=== PATIENT | female | born 1960 | race Caucasian/White ===

== ENCOUNTER 2016-03-23 06:40 | Day surgery (SDC) | payer MEDICAID ==
--- NOTE | 2016-03-09 07:25 | HISTORY AND PHYSICAL ---
DICTATING PHYSICIAN: Dr. Lion DATE OF ADMISSION: 03/23/2015 Outpatient surgery for left de Quervain's release. HISTORY: The patient is a 55-year-old, [id number] female with complaints of radial sided left wrist pain. She reports this radiates into her thumb. She denies snuff box pain. She reports this has been progressive in nature. Due to functional impairment, the patient has elected to proceed with surgical intervention. REVIEW OF SYSTEMS: No chest pain, no shortness of breath. No dysuria. PAST MEDICAL HISTORY: 1. COPD. 2. Coronary artery disease. 3. Diabetes type 2. 4. Hypertension. 5. Rheumatoid arthritis. PAST SURGICAL HISTORY: 1. Cardiac catheterization. 2. Cholecystectomy. 3. Hysterectomy. 4. Tonsillectomy. SOCIAL HISTORY; The patient denies alcohol, current every day smoker. FAMILY HISTORY: Significant for heart disease, diabetes, hyperlipidemia and asthma PRIMARY CARE PROVIDER: Carrol Turpin MEDICATIONS: 1. Mucinex. 2. Ventolin. 3. Nasonex. 4. Cetirizine. 5. Aleve. 6. Citalopram. 7. Fish oil. 8. Albuterol. 9. Symbicort. 10. Aspirin. 11. Metoprolol. 12. Protonix. 13. Nystatin. 14. Methotrexate. 15. Lisinopril. 16. Metformin. 17. Baclofen. 18. Fenofibrate. 19. Victoza. 20. Folic acid. 21. Lyrica. 22. Hydrocodone. ALLERGIES: 1. SULFA. 2. SINGULAIR. Radiographs reveal healed old scaphoid waist fracture; otherwise no abnormalities. PHYSICAL EXAMINATION: The patient is well-developed, well-nourished, in no acute distress. HEENT: Normocephalic, atraumatic. Pupils are equal, round, and reactive to light. Oropharynx is clear. NECK: Supple. No lymphadenopathy. LUNGS: Clear to auscultation bilaterally. HEART: Regular rate and rhythm. ABDOMEN: Soft, nontender, nondistended. EXTREMITY EXAM: The left wrist demonstrates tenderness over first dorsal compartment. There is no edema noted. She has a markedly positive Atif maneuver. She has pain with resisted, thumb extension and abduction. She has negative thumb grind test. She has negative Tinel's at the carpal tunnel. IMPRESSION: De Quervain's tenosynovitis. PLAN: Left de Quervain's release. The risks, benefits, options, ramifications and recovery have been discussed in length with the patient. She understands and wishes to proceed. Job ID: [id number] Dictated Date: 03/03/2016 10:23:00 Section Chief Date: 03/03/2016 13:33:32/mickey
--- NOTE | 2016-03-16 08:07 | HISTORY AND PHYSICAL ---
This will be for outpatient surgery. The patient is a 55 year-old bxqvz-[id number] female with complaints of radial sided left wrist pain. She reports this radiates into her thumb. She denies snuff box pain. She reports this has been progressive in nature. Due to functional impairment, the patient has elected to proceed with surgical intervention. REVIEW OF SYSTEMS: No chest pain, no shortness of breath. No dysuria. PAST MEDICAL HISTORY: 1. COPD. 2. Coronary artery disease. 3. Diabetes type 2. 4. Hypertension. 5. Rheumatoid arthritis. PAST SURGICAL HISTORY: 1. Cardiac catheterization. 2. Cholecystectomy. 3. Hysterectomy. 4. Tonsillectomy. SOCIAL HISTORY: The patient denies alcohol use. She is a current every day smoker. FAMILY HISTORY: Significant for heart disease, diabetes, hyperlipidemia and asthma. MEDICATIONS: 1. Mucinex 2. Ventolin 3. Nasonex 4. Cetirizine 5. Aleve 6. citalopram 7. fish oil 8. Albuterol 9. Symbicort 10. aspirin 11. metoprolol 12. Protonix 13. nystatin 14. methotrexate 15. lisinopril 16. metformin 17. baclofen 18. fenofibrate 19. Victoza 20. folic acid 21. Lyrica 22. Hydrocodone ALLERGIES: 1. Sulfa 2. Singulair PHYSICAL EXAMINATION: The patient is well-developed, well-nourished, in no acute distress. HEENT: Normocephalic, atraumatic. Pupils are equal, round, and active to light. Oropharynx is clear. NECK: Supple. No lymphadenopathy. LUNGS: Clear to auscultation bilaterally. HEART: Regular rate and rhythm. ABDOMEN: Soft, nontender, nondistended. EXTREMITIES: The left wrist demonstrates tenderness over her first dorsal compartment. She has a markedly positive Atif maneuver. She has pain with resisted thumb extension as well as abduction. IMPRESSION: Left wrist de Quervain's. PLAN: Left wrist de Quervain's release. The risks, benefits, options, ramifications and recovery have been discussed at length with the patient. She understands and wishes to proceed. Job ID: [id number] Dictated Date: 03/15/2016 16:50:18 Senior Lead Project Manager Date: 03/16/2016 07:59:47/tbk
[~2016-03-23] VITALS: Ht 167.6 cm; Wt 87.1 kg
[~2016-03-23 06:40] MED LIST: ALB0.5V IH; ASP81TEC PO; ASPI-999 PO; BACL10TA PO; BUDE10.2 IH; CETI10TA17 PO; CITA40TA11 PO; FENO54TA PO; FISH1CAP15 PO; FLUO20CA42 PO; FOLI1TAB24 PO; GABA-488 PO; GBPN300C PO; GUAI600T43 PO; HYDR-3812 PO; HYDR200T PO; INSU100I10 SC; INSU100I14 SC; INSU100V6 SC; LIRA0.6P3 SQ; LISI20TA PO; METF-380 PO; METF1000 PO; METH2.5T PO; METO-333 PO; METO50TA7 PO; MMT17NA NS; NAPR220T66 PO; NITR0.4T39 SL; OMEP10CA4 PO; PANT20TA2 PO; PRAS10TA6 PO; PRAV40TA2 PO; PREG75CA PO; RANI-10 PO; ROSU5TAB PO; RT-ALBUINH IH; TRIA1TAB5 PO
--- OUTSIDE RECORDS SUMMARY | 2016-03-23 06:47 | XMS REPORT | Continuity of Care Document ---
Author Author [facility] Organization [facility] Address Unknown Phone Unavailable Care Team Providers Care Shoder Filler Name Role Phone No Pcp, Na PCP Unavailable Source Comments Some departments are not documenting in the electronic medical record. 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 Most Recent Encounters Date Type Specialty Providers Description 12/23/2015 Office Visit Orthopedic Surgery Arlet Arellano MD Arthropathy of left wrist (Primary Dx) 12/23/2015 Hospital Radiology Arlet Arellano MD Encounter Social History Tobacco Use Types Packs/Day Years Used Date Current Every Day Smoker Smokeless Tobacco: Never Used Alcohol Use Drinks/Week oz/Week Comments No Last Filed Vital Signs Vital Sign Reading Time Taken Blood Pressure 115/72 12/23/2015 11:22 AM CDT Pulse 81 12/23/2015 11:22 AM CDT Temperature - - Respiratory Rate - - Height 1.676 m (5' 6") 12/23/2015 11:22 AM CDT Weight 84.823 kg (187 lb) 12/23/2015 11:22 AM CDT Body Mass Index 30.2 12/23/2015 11:22 AM CDT Oxygen Saturation - - Plan of Care Health Maintenance Due Date Last Done Comments Hepatitis C Screening 1961 Physical (Comprehensive) 1968 Exam Pertussis Vaccine 1972 Tetanus Vaccine 1978 Cervical Cancer Screening 1982 Breast Cancer Screening 2001 Colorectal Cancer 2011 Screening Influenza Vaccine 11/19/2015 Results from Last 3 Months WRIST COMP MIN 3 VIEWS LEFT (12/23/2015 11:42 AM) Impressions Impression: No evidence of an acute osseous abnormality. If patient's symptoms persist MR imaging may be useful for further evaluation. Finalized by Humble Siddiqui M.D. on 12/23/2015 12:44 PM. Dictated by Humble Siddiqui M.D. on 12/23/2015 12:39 PM. Narrative Left wrist Clinic data: Left wrist pain Four projections were acquired. No prior studies are available for comparison. A fracture is not identified. Mild degenerative changes are present involving the first CMC joint. No abnormal soft tissue calcifications are noted. Bony alignment appears unremarkable. Procedure Note Interface, Radiant Results - Wed Dec 23, 2015 12:47 PM CDT Left wrist Clinic data: Left wrist pain Four projections were acquired. No prior studies are available for comparison. A fracture is not identified. Mild degenerative changes are present involving the first CMC joint. No abnormal soft tissue calcifications are noted. Bony alignment appears unremarkable. IMPRESSION Impression: No evidence of an acute osseous abnormality. If patient's symptoms persist MR imaging may be useful for further evaluation. Finalized by Humble Siddiqui M.D. on 12/23/2015 12:44 PM. Dictated by Humble Siddiqui M.D. on 12/23/2015 12:39 PM.
--- OUTSIDE RECORDS SUMMARY | 2016-03-23 06:48 | XMS REPORT | Continuity of Care Document ---
Author Author [facility] Organization [facility] Address Unknown Phone Unavailable Care Team Providers Care Air Bag Buffer Name Role Phone No Pcp, Na PCP Unavailable Source Comments Some departments are not documenting in the electronic medical record. If you do not see the information that you expected, contact Release of Information in the Health Information Management department at [phone] for further assistance in locating additional records.[facility] Active Allergies and Adverse Reactions Allergen Noted [...]
[2016-03-23] MEDS ORDERED: ceFAZolin 1,000 MG (ANCEF) VIAL ONE (06:54)
[2016-03-23] MEDS ORDERED: NORMAL SALINE (BAXTER MINI) 50 ML IV ONE (06:55)
[2016-03-23] MEDS ORDERED: ceFAZolin 1 GM/NS 50 ML IVPB IV ONE ×2 (07:15)
[2016-03-23] MEDS ORDERED: LIDOCAINE 1% INJ 20 ML (XYLOCAINE) VIAL ONE (07:17)
[2016-03-23] MEDS ORDERED: BUPIVACAINE 0.5% 30 ML (SENSORCAINE) VIAL ONE (07:17)
--- NOTE | 2016-03-23 07:31 | Progress Note-Pre Operative ---
Pre-Operative Progress Note H&P Reviewed The H&P was reviewed, patient examined and no changes noted. Date H&P Reviewed: Mar 23, 2016 Time H&P Reviewed: 07:30 Pre-Operative Diagnosis: left DeQuervain's tenosynovitis CARLOS HORTON MD Mar 23, 2016 07:31
--- NOTE | 2016-03-23 07:32 | Progress Note-Post Operative ---
Post-Operative Progess Note Bi Application Developer Gurdeep Mcgrath Pre-Operative Diagnosis left DeQuervain's tenosynovitis Post-Operative Diagnosis left DeQuervain's tenosynovitis Post-Op Procedure Note Date of Procedure: Mar 23, 2016 Name of Procedure: left DeQuervain's (first dorsal compartment) release Anesthesia Type GETA Estimated blood loss (mL): minimal Packing: none Specimen(s) collected none CARLOS HORTON MD Mar 23, 2016 07:32
[2016-03-23] MEDS ORDERED: LIDOCAINE PF 2% 10 ML (XYLOCAINE) AMP ONE (07:52)
[2016-03-23] MEDS ORDERED: MIDAZOLAM 2 MG/2 ML (VERSED) VIAL ONE (07:52)
[2016-03-23] MEDS ORDERED: proPOfol 200 MG/20 ML (DIPRIVAN) VIAL IV ONE (07:52)
[2016-03-23] MEDS ORDERED: LACTATED RINGERS 1,000 ML IV ONE (07:52)
[2016-03-23] MEDS ORDERED: fentaNYL INJECTION 100 MCG/2 ML AMP ONE (07:52)
[2016-03-23 08:04] VITALS: BP 129/71
[2016-03-23] MEDS ORDERED: HYDROcodone/APAP 7.5 MG/325 MG (LORTAB, LORCET PLUS) TABLET PO PRN (09:00)
[2016-03-23] MEDS ORDERED: SEVOFLURANE (ULTANE) 15 ML INHAL SOLN ONE (09:04)
[2016-03-23] MEDS ORDERED: ONDANSETRON 4 MG/2 ML (SDV) Z0FRAN ONE (09:10)
[2016-03-23] MEDS ORDERED: LIDOCAINE 1% INJ 20 ML (XYLOCAINE) VIAL INJ ONE ×2 (09:22→09:25)
[2016-03-23] MEDS ORDERED: BUPIVACAINE 0.5% 30 ML (SENSORCAINE) VIAL INJ ONE ×2 (09:22→09:25)
[2016-03-23] MEDS ORDERED: ONDANSETRON 4 MG/2 ML (SDV) Z0FRAN IVP PRN (09:45)
[2016-03-23] MEDS ORDERED: morphine INJ 10 MG/ML 1ML (SYR OR VIAL) IVP PRN (09:45)
[2016-03-23] MEDS ORDERED: morphine INJ 10 MG/ML 1ML (SYR OR VIAL) ONE (09:51)
[2016-03-23 10:30] VITALS: BP 107/66
[2016-03-23 11:00] VITALS: BP 118/69
[2016-03-23] MEDS ORDERED: HYDR-3816 PO (11:29)
[2016-03-23 11:30] VITALS: BP 96/61
--- NOTE | 2016-03-23 13:30 | OPERATIVE REPORT ---
PROCEDURE PHYSICIAN: CARLOS HORTON DATE OF PROCEDURE: 03/23/2016 POSTOPERATIVE DIAGNOSIS: Left de Quervain's tenosynovitis. POSTOPERATIVE DIAGNOSIS: Left de Quervain's tenosynovitis. PROCEDURE: Left de Quervain's (1st dorsal compartment) release. SURGEON: Amisha FIRST AID INSTRUCTOR: Gurdeep Mcgrath ANESTHESIA: General endotracheal by Betty Blackburn CRNA. TOURNIQUET TIME: 5 minutes at 250 mmHg. ESTIMATED BLOOD LOSS: Minimal. DRAINS: None. COMPLICATIONS: None. POSTOPERATIVE PLAN: Progressive activities as symptoms allow. The patient was transported to the recovery room, awake, in stable condition. STATEMENT OF MEDICAL NECESSITY: The patient is a 55-year-old female with complaints of left radial sided wrist pain. She had tenderness over her first dorsal compartment and pain with Atif maneuver and with resisted thumb extension. She has undergone treatment with injections, as well as splinting without relief. Due to functional impairment, the patient elected to proceed with surgical intervention. PROCEDURE: After risks and benefits of procedure were discussed and questions were answered an informed consent was signed and placed on the chart. The operative site was confirmed in the preoperative holding and initialed by the surgeon. The patient was then transported to the operating room where after adequate levels of general endotracheal anesthetic were obtained, the left upper extremity was prepped and draped in the usual sterile fashion. With the arm elevated, the tourniquet was inflated to 250 mmHg. An oblique incision was made one fingerbreadth proximal to the radial styloid. The underlying soft tissues were bluntly dissected. The superficial branch of the radial nerve was identified and carefully protected throughout the procedure. The first dorsal compartment was then incised longitudinally and fully released. There was an aberrant tendon noted which was fully released as well. The tourniquet was deflated for total tourniquet time of 5 minutes. Pressure was used for hemostasis. The wound was copiously irrigated and then reapproximated using 4-0 nylon in a simple interrupted fashion. The area was then infiltrated with plain Marcaine. A soft dressing was applied and the patient was transported to the recovery room, awake, in stable condition. Job ID: [id number] Dictated Date: 03/23/2016 09:25:29 Psychologist Chief Date: 03/23/2016 13:21:29 / mickey
[2016-03-23] MEDS ORDERED: LACTATED RINGERS 1,000 ML IV PRN (14:43)
== END 2016-03-23 12:05 | disposition home or self-care (01) ==
LOC: SDC 06:40
PROVIDERS: ATTEND Orthopaedic Surgery
DX: M65.4 Radial styloid tenosynovitis [de Quervain] (principal); J44.9 Chronic obstructive pulmonary disease, unspecified; I25.10 Atherosclerotic heart disease of native coronary artery without angina pectoris; E11.9 Type 2 diabetes mellitus without complications; I10 Essential (primary) hypertension; M06.9 Rheumatoid arthritis, unspecified; F17.210 Nicotine dependence, cigarettes, uncomplicated
CPT/HCPCS: 82962

== ENCOUNTER → 2016-05-06 | Outpatient (CLI) | payer MEDICAID ==
[~2016-05-06] MED LIST changes: +CHOL200025 PO; +GEMF600T3 PO; +HYDR-3816 PO
--- OUTSIDE RECORDS SUMMARY | 2016-05-06 09:46 | XMS REPORT | Continuity of Care Document ---
Author Author [facility] Organization [facility] Address Unknown Phone Unavailable Care Team Providers Care Steam Shovel Oiler Name Role Phone No Pcp, Na PCP Unavailable Source Comments Some departments are not documenting in the electronic medical record. 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
--- NOTE | 2016-05-09 10:44 | ECHOCARDIOGRAPHY REPORT ---
PROCEDURE PHYSICIAN: ARVIND CASTELLANOS DATE OF PROCEDURE: 05/06/2016 TWO DIMENSIONAL ECHOCARDIOGRAM REPORT PRIMARY PHYSICIAN: OTHER PHYSICIAN: REFERRING PHYSICIAN: [facility], Dr. Matt Hanson ORDERING PHYSICIAN: INDICATION FOR THE PROCEDURE: MEASUREMENTS DERIVED VALUES LV DIAMETER (LAX) NORMALS NORMALS Diastolic 4.3 (3.6-5.2) Eject. Fract. 60% (60%+/-6%) Systolic (2.3-3.9) Diastolic Vol. % Shortening (0.22-0.42) Systolic Vol. Aortic Root IVS THICKNESS Diastolic 1 (0.6-1.1) LVPW THICKNESS Diastolic 1 (0.6-1.1) LA DIAMETER Systolic 3 (2.1-3.7) FINDINGS: 1. Technical quality is good. 2. The left ventricle is normal in size with normal contractility. Systolic function is normal. Estimated ejection fraction 60%. 3. The left atrium is normal in size. Improvement compared to the study of 2014. No clot or thrombus were seen within the left atrium. 4. The right atrium and right ventricle are normal in size. No clot or thrombus were seen within the right side. 5. Mitral valve is normal in morphology with mild mitral regurgitation noted by color Doppler flow. No mitral valve prolapse. No mitral valve stenosis. 6. Aortic valve is trileaflet with normal opening and closing pattern. No significant aortic stenosis or regurgitation was seen. 7. Tricuspid valve is normal in morphology with mild tricuspid regurgitation noted by color Doppler flow. Doppler across tricuspid valve estimated pulmonary artery pressure of 6 plus right atrial pressure. 8. Pulmonic valve is functioning normally. 9. No pericardial effusion. IN CONCLUSION: 1. Normal left ventricular size and systolic function. Mild hypertrophy noted at the base of the septum. Estimated ejection fraction 60%. 2. Mild mitral regurgitation. Mild tricuspid regurgitation. 3. Estimated pulmonary artery pressure of 10 to 15 mmHg. Job ID: [id number] Dictated Date: 05/09/2016 07:57:03 Risk Control Field Representative Date: 05/09/2016 10:39:55 / tboneil
== END ==
LOC: CARD 09:42
PROVIDERS: ATTEND Physician Assistant
DX: I25.10 Atherosclerotic heart disease of native coronary artery without angina pectoris (principal); I65.23 Occlusion and stenosis of bilateral carotid arteries; I10 Essential (primary) hypertension; E78.2 Mixed hyperlipidemia
CPT/HCPCS: 93306

== ENCOUNTER → 2016-05-09 | Outpatient (CLI) | payer MEDICAID ==
[~2016-05-09] MED LIST changes: +CATHETER FLUSH 10 ML SYR IV PRN; +REGADENOSON 0.4 MG/5 ML SYR (LEXISCAN) IV ONE
--- OUTSIDE RECORDS SUMMARY | 2016-05-09 07:47 | XMS REPORT | Continuity of Care Document ---
Author Author [facility] Organization [facility] Address Unknown Phone Unavailable Care Team Providers Care Automobile Damage Field Appraiser Name Role Phone No Pcp, Na PCP Unavailable Source Comments Some departments are not documenting in the electronic medical record. If you do not see the information that you expected, contact Release of Information in the Health Information Management department at [phone] for further assistance in locating additional records.[facility] Active Allergies and Adverse Reactions Allergen [...]
[2016-05-09 09:06] VITALS: BP 98/50
--- NOTE | 2016-05-09 12:22 | STRESS TEST ---
PROCEDURE PHYSICIAN: ARVIND CASTELLANOS DATE OF PROCEDURE: 05/09/2016 LEXISCAN MYOVIEW STRESS TEST REPORT: REFERRING PHYSICIAN: Dr. Hanson INDICATION: Coronary artery disease. BASELINE HEART RATE: 71 BASELINE BLOOD PRESSURE: 98/50 BASELINE EKG: Sinus rhythm with no ischemic changes. IN SUMMARY: The patient was injected with 10.62 mCi of technetium 99 Myoview and the resting images were obtained. Then the patient received 0.4 mg of Lexiscan followed by 32.3 mCi of technetium 99 Myoview. Throughout the test, there were no EKG changes. The resting and stress images were reviewed and compared in the short axis, horizontal long axis, and vertical long axis views. Review of the images showed breast attenuation with no significant ischemia or infarction on SPECT images. SSS is 0. TID value 0.96. On the gated images, the left ventricle appeared to be normal size with normal contractility. Calculated ejection fraction 61%. IN CONCLUSION: 1. The patient tolerated Lexiscan well. 2. Breast attenuation with typical female pattern. No significant ischemia or infarction on SPECT images. 3. Normal left ventricular size with normal contractility. Calculated ejection fraction 61%. Job ID: [id number] Dictated Date: 05/09/2016 11:58:43 Site Head Date: 05/09/2016 12:20:47 / marie
== END ==
LOC: CARD 07:43
PROVIDERS: ATTEND Physician Assistant
DX: I25.10 Atherosclerotic heart disease of native coronary artery without angina pectoris (principal); I65.23 Occlusion and stenosis of bilateral carotid arteries; I10 Essential (primary) hypertension; E78.2 Mixed hyperlipidemia
CPT/HCPCS: 78452; 93017

== ENCOUNTER 2016-05-19 11:40 | Outpatient (CLI) | payer MEDICAID ==
[~2016-05-19] VITALS: Ht 167.6 cm; Wt 88.0 kg
[~2016-05-19 11:40] MED LIST changes: -CATHETER FLUSH 10 ML SYR IV PRN; -CHOL200025 PO; -GEMF600T3 PO; -REGADENOSON 0.4 MG/5 ML SYR (LEXISCAN) IV ONE
--- OUTSIDE RECORDS SUMMARY | 2016-05-19 11:44 | XMS REPORT | Continuity of Care Document ---
Author Author [facility] Organization [facility] Address Unknown Phone Unavailable Care Team Providers Care Information Systems Planner Name Role Phone No Pcp, Na PCP Unavailable Source Comments Some departments are not documenting in the electronic medical record. If you do not see the information that you expected, contact Release of Information in the Health Information Management department at [phone] for further assistance in locating additional records.[facility] Active Allergies and Adverse Reactions [...]
[2016-05-19 11:48] VITALS: BP 114/66
[2016-05-19] MEDS ORDERED: GEMF600T3 PO (11:55)
[2016-05-19] MEDS ORDERED: HYDR-3816 PO (11:55)
[2016-05-19] MEDS ORDERED: CHOL200025 PO (11:55)
== END 2016-05-19 12:02 | disposition home or self-care (01) ==
LOC: PREOP 11:40
PROVIDERS: ATTEND Orthopaedic Surgery
DX: Z01.818 Encounter for other preprocedural examination (principal); Z11.2 Encounter for screening for other bacterial diseases; M23.8X2 Other internal derangements of left knee
CPT/HCPCS: 87081

== ENCOUNTER 2016-05-25 08:12 | Day surgery (SDC) | payer MEDICAID ==
--- NOTE | 2016-05-23 07:50 | HISTORY AND PHYSICAL ---
DICTATING PHYSICIAN: Dr. Lion DATE OF ADMISSION: 05/25/2016 Outpatient surgery for left knee arthroscopy. HISTORY: The patient is a 56-year-old female with progressively worsening left knee pain. She reports pain in the posterior aspect of her knee. She underwent an MRI which revealed posterior horn of medial and lateral meniscal tear. She underwent injections without relief. She reports activity limitations because of the knee and because of this, the patient has elected to proceed with surgical intervention. REVIEW OF SYSTEMS: No chest pain, no shortness of breath. No dysuria. PAST MEDICAL HISTORY: 1. COPD. 2. Coronary artery disease. 3. Diabetes mellitus. 4. Hypertension. 5. Rheumatoid arthritis. PAST SURGICAL HISTORY: 1. Cardiac catheterization. 2. Cholecystectomy. 3. Hysterectomy. 4. Tonsillectomy. FAMILY HISTORY: Significant for heart disease, diabetes and asthma. PRIMARY CARE PROVIDER: Carrol Turpin at [facility]. MEDICATIONS: 1. Mucinex. 2. Ventolin. 3. Nasonex. 4. Cetirizine 5. Aleve. 6. Citalopram. 7. Fish oil. 8. Albuterol. 9. Symbicort. 10. Aspirin. 11. Metoprolol. 12. Protonix. 13. Nystatin. 14. Methotrexate. 15. Lisinopril. 16. Metformin. 17. Baclofen. 18. Fenofibrate. 19. Victoza. 20. Folic acid. 21. Lyrica. 22. Hydrocodone. ALLERGIES: 1. SULFA. 2. SINGULAIR. SOCIAL HISTORY: The patient smokes every day. She denies alcohol use. Radiographs reveal mild medial joint space narrowing. PHYSICAL EXAMINATION: The patient's well-developed, well-nourished, in no acute distress. HEENT: Normocephalic, atraumatic. Pupils are equal, round, and reactive to light, oropharynx is clear. NECK: Supple with no lymphadenopathy. LUNGS: Clear to auscultation bilaterally. HEART: Regular rate and rhythm. ABDOMEN: Soft, nontender, nondistended. EXTREMITY EXAM: The left knee demonstrates tenderness on her posterior joint line medially and laterally. She has pain posteriorly with hyperflexion and with Mckenna's. She is ligamentously stable in all planes. No skin lesions are noted. A slight effusion is noted. Range of motion 0/0/140. The patient ambulates with an antalgic gait. IMPRESSION: Left knee medial and lateral meniscal tears. PLAN: Left knee arthroscopy with partial meniscectomies. The risks, benefits, options, ramifications and recovery have been discussed at length with the patient. She understands and wishes to proceed. Job ID: [id number] Dictated Date: 05/17/2016 09:56:00 Gas Utility Worker Date: 05/17/2016 10:59:20/mickey
[~2016-05-25] VITALS: Ht 167.6 cm; Wt 88.0 kg
[~2016-05-25 08:12] MED LIST changes: +CHOL200025 PO; +GEMF600T3 PO
--- OUTSIDE RECORDS SUMMARY | 2016-05-25 08:26 | XMS REPORT | Continuity of Care Document ---
Author Author [facility] Organization [facility] Address Unknown Phone Unavailable Care Team Providers Care Senior Clinician Name Role Phone No Pcp, Na PCP Unavailable Source Comments Some departments are not documenting in the electronic medical record. If you do not see the information that you expected, contact Release of Information in the Health Information Management department at [phone] for further assistance in locating additional records.[facility] Active Allergies and Adverse Reactions Allergen [...]
--- OUTSIDE RECORDS SUMMARY | 2016-05-25 08:26 | XMS REPORT | Continuity of Care Document ---
Author Author [facility] Organization [facility] Address Unknown Phone Unavailable Care Team Providers Care Stone Chimney Mason Name Role Phone No Pcp, Na PCP Unavailable Source Comments Some departments are not documenting in the electronic medical record. If you do not see the information that you expected, contact Release of Information in the Health Information Management department at [phone] for further assistance in locating additional records.[facility] Active Allergies and Adverse Reactions Allergen [...]
[2016-05-25] MEDS ORDERED: ceFAZolin 1,000 MG (ANCEF) VIAL ONE (08:38)
[2016-05-25] MEDS ORDERED: NS (IVPB) 50 ML ONE (08:39)
[2016-05-25 08:56] VITALS: BP 106/74
[2016-05-25] MEDS ORDERED: ceFAZolin 1 GM/NS 50 ML IVPB IV ONE ×2 (09:00)
--- NOTE | 2016-05-25 09:07 | Progress Note-Pre Operative ---
Pre-Operative Progress Note H&P Reviewed The H&P was reviewed, patient examined and no changes noted. 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
--- NOTE | 2016-05-25 09:09 | Progress Note-Post Operative ---
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
[2016-05-25] MEDS: LACTATED RINGERS 1,000 ML IV PRN ×2 (09:28→11:00)
[2016-05-25] MEDS ORDERED: MIDAZOLAM 2 MG/2 ML (VERSED) VIAL ONE (09:30)
[2016-05-25] MEDS ORDERED: LIDOCAINE PF 2% 10 ML (XYLOCAINE) AMP ONE (09:30)
[2016-05-25] MEDS ORDERED: fentaNYL INJECTION 100 MCG/2 ML AMP ONE (09:30)
[2016-05-25] MEDS ORDERED: HYDROcodone/APAP 7.5 MG/325 MG (LORTAB, LORCET PLUS) TABLET PO PRN (09:30)
[2016-05-25] MEDS ORDERED: ONDANSETRON 4 MG/2 ML (SDV) Z0FRAN ONE (09:30)
[2016-05-25] MEDS ORDERED: proPOfol 200 MG/20 ML (DIPRIVAN) VIAL IV ONE (09:30)
[2016-05-25] MEDS ORDERED: FAMOTIDINE 20MG/2ML IV (PEPCID) IV ONE (09:30)
[2016-05-25] MEDS ORDERED: morphine PF (DURAMORPH) 10 MG/10 ML AMP ONE (09:40)
[2016-05-25] MEDS ORDERED: BUPIVACAINE 0.25% 30 ML (SENSORCAINE) VIAL ONE (09:40)
[2016-05-25] MEDS ORDERED: SEVOFLURANE (ULTANE) 15 ML INHAL SOLN ONE (11:08)
[2016-05-25] MEDS ORDERED: LACTATED RINGERS 1,000 ML IV ONE (11:08)
[2016-05-25] MEDS ORDERED: ONDANSETRON 4 MG/2 ML (SDV) Z0FRAN IV PRN (11:15)
[2016-05-25] MEDS: morphine INJ 10 MG/ML 1ML (SYR OR VIAL) IV PRN ×2 (11:42→11:52)
[2016-05-25 12:10] VITALS: BP 106/61
[2016-05-25] MEDS ORDERED: HYDR-3816 PO (12:28)
[2016-05-25 12:40] VITALS: BP 106/61
[2016-05-25 13:10] VITALS: BP 106/61
[2016-05-25 13:55] VITALS: BP 106/61
--- NOTE | 2016-05-25 13:57 | Physical Therapy Ortho Eval ---
PT Orthopedic Evaluation Type of Surgery Knee Scope left side Prior Level of Function Current Living Status: Alone Locomotion (Upon Admit): Straight Cane Subjective Subjective Patient in bed pre tx, agrees to PT. Vasiliy wrap in left knee, states pain is 2/ 10. Entry Into Home: Level Entry Objective Objective left knee flexion 60 degrees, extension +5 degrees Motor Control Motor Control: Motor Control WNL Strength NT due to recent surgery Transfer Transfers (B, C, W/C) (FIM): 4 (CGA) Gait Gait Assistive Device: FWW Patient ambulated 50' with a rolling walker with CGA. She also went up and down 1 step using a rolling walker with CGA. Patient does not own a rolling walker but says she can borrow one from a friend easily. Weight Bearing Restriction: Weight Bearing/Tolerated Location Restriction: L LE Gait (FIM): 2 Treatment Rendered Treatment: Therapeutic Exercises, Gait Train, Step Train Exercise Instruction: Quad Sets, Heel Slides, Ankle Pumps Assessment/Goals Goal Time Frame: 1 Visit Plan Treatment Plan: Discharge PT/Family Agrees to Plan: Yes Time Time In: 1330 Time Out: 1345 Total Billed Treatment Time: 15 Billed Treatment Time 1 visit EVL 15 min Yes PT/OT Therapy GCodes Therapy Functional Limitation: Physical Therapy Test(s)/Tool used to determine: Level of Assistance Scale Functional Limitation-Current Charge Code: MOBCUR Modifier: CI Functional Limitation-Goal Charge Code: MOBGOAL Modifier: CI Functional Limitation-D/C Charge Codes: MOBDC Modifier: CI KIERA ARANA PT May 25, 2016 13:57
--- NOTE | 2016-05-26 11:39 | OPERATIVE REPORT ---
PROCEDURE PHYSICIAN: CARLOS HORTON DATE OF PROCEDURE: 05/25/2016 PREOPERATIVE DIAGNOSIS: 1. Left knee medial meniscal tear. 2. Left knee lateral meniscal tear. 3. Left knee chondromalacia of the patella. POSTOPERATIVE DIAGNOSES: 1. Left knee medial meniscal tear. 2. Left knee chondromalacia of the patella. 3. Left knee chondromalacia of the medial femoral condyle. 4. Left knee chondromalacia of the lateral tibial plateau. PROCEDURE: 1. Left knee arthroscopic partial medial meniscectomy. 2. Left knee arthroscopic chondroplasty of the patella. 3. Left knee arthroscopic chondroplasty of the medial femoral condyle. 4. Left knee arthroscopic chondroplasty of the lateral tibial plateau. SURGEON: Amisha BAR WAITER/WAITRESS: Gurdeep Mcgrath who assisted throughout the procedure and closed the incisions. ANESTHESIA: General endotracheal by Kathi Kwok CRNA TOURNIQUET TIME: Not applicable. ESTIMATED BLOOD LOSS: Minimal. DRAINS: None. COMPLICATIONS: None. POSTOPERATIVE PLAN: Routine arthroscopy protocol. T he patient was transported to the recovery room, awake, in stable condition. STATEMENT OF MEDICAL NECESSITY: The patient is a 56-year-old female with complaints of left knee pain, catching, locking and swelling. She had patellofemoral crepitus. She is tender along her medial joint line. She had pain medially with Mckenna's. She also had pain along her posterior lateral joint line. An MRI revealed a posterior horn medial and lateral meniscal tears and due to functional impairment and failure to improve with conservative measures, the patient elected to proceed with surgical intervention. Examination under anesthesia revealed range of motion 0/0/135, negative Katy, negative anterior and posterior drawer. No varus valgus laxity. Negative pivot shift. Arthroscopic findings: The patella demonstrated grade 3 chondral flaps centrally in a 15 x 10 area. The trochlea demonstrated no gross chondral abnormalities. The medial and lateral gutters were clear. The lateral compartment demonstrated grade 2 chondral flaps on the central portion of tibial plateau in an 8 x 8 area. The meniscus demonstrated no pathology. The ACL and PCL were intact. The medial compartment demonstrated a horizontal cleavage tear of the posterior horn involving approximately one 3rd of the posterior horn. In addition, there were grade 3 chondral flaps over the central portion of femoral condyle in a 10 x 20 area. PROCEDURE: After risks and benefits of procedure were discussed and questions were answered. Informed consent signed and placed on chart. The operative site was confirmed in the preoperative holding and initialed by the surgeon. The patient was then transported to the operating room and after adequate levels of general endotracheal anesthetic were obtained, a timeout was called confirming the operative site. Examination under anesthesia was performed. The left lower extremity was prepped and draped in the usual sterile fashion. The knee joint was injected with 60 mL of fluid and a standard inferolateral portal was placed. Under direct visualization an inferior medial port was created. The menisci cruciate was carefully probed with the above findings noted. The unstable chondral flaps of the patella were debrided with a shaver, back to a stable edge. The scope was redirected into the lateral compartment. The unstable chondral flaps and lateral from lateral tibial plateau were debrided with a shaver, back to a stable edge. The scope was redirected into the medial compartment where the unstable chondral flaps of the medial femoral condyle were debrided with a shaver back to a stable edge and the posterior horn of the medial meniscus was debrided with a biter and a shaver, removing approximately 1/3rd of the posterior horn. This was carefully probed with no further tearing or instability noted. The knee was copiously irrigated. The portal sites closed with 3-0 nylon in simple interrupted fashion. The knee was injected Duramorph. Portal sites were infiltrated with plain Marcaine. A soft dressing was applied. The patient was transported to the recovery awake, in stable condition. Job ID: [id number] Dictated Date: 05/25/2016 11:14:43 X Ray Service Engineer Date: 05/26/2016 11:28:40 / mickey
== END 2016-05-25 13:55 | disposition home or self-care (01) ==
LOC: SDC 08:12
PROVIDERS: ATTEND Orthopaedic Surgery
DX: M23.8X2 Other internal derangements of left knee (principal); M22.42 Chondromalacia patellae, left knee; J44.9 Chronic obstructive pulmonary disease, unspecified; I25.10 Atherosclerotic heart disease of native coronary artery without angina pectoris; E11.9 Type 2 diabetes mellitus without complications; I10 Essential (primary) hypertension; M06.9 Rheumatoid arthritis, unspecified; Z79.899 Other long term (current) drug therapy; F17.210 Nicotine dependence, cigarettes, uncomplicated
CPT/HCPCS: 82962

== ENCOUNTER 2017-02-21 05:50 | Outpatient (CLI) | payer MEDICAID ==
[~2017-02-21] VITALS: Ht 167.6 cm; Wt 82.6 kg
[2017-02-21] MEDS ORDERED: CITA20TA7 PO (13:43)
[2017-02-21] MEDS ORDERED: CETI10TA17 PO (13:43)
[2017-02-21] MEDS ORDERED: TRAZ-28 PO (13:43)
[2017-02-21] MEDS ORDERED: BUSP10TA95 PO (13:43)
[2017-02-21] MEDS ORDERED: LISI-552 PO (13:43)
[2017-02-21] MEDS ORDERED: PREG100C PO (13:43)
== END 2017-02-21 13:50 ==
LOC: PREOP 05:50
PROVIDERS: ATTEND Surgery
DX: Z01.818 Encounter for other preprocedural examination (principal); R10.13 Epigastric pain; R19.7 Diarrhea, unspecified

== ENCOUNTER 2017-02-28 11:38 | Day surgery (SDC) | payer MEDICAID ==
[~2017-02-28] VITALS: Ht 167.6 cm; Wt 82.6 kg
[~2017-02-28 11:38] MED LIST changes: +BUSP10TA95 PO; +CITA20TA7 PO; +LISI-552 PO; +PREG100C PO; +TRAZ-28 PO
[2017-02-28] MEDS ORDERED: LACTATED RINGERS 1,000 ML IV STA (11:42)
--- OUTSIDE RECORDS SUMMARY | 2017-02-28 11:44 | XMS REPORT ---
Author Author CLAU DELEON Organization [employer] Address Unknown Phone Unavailable Care Team Providers Care Retail Account Specialist Name Role Phone CLAU DELEON CP Unavailable Allergies No Known Allergies Problems Problem Type Condition Code Onset Dates Condition Status Problem Allergic rhinitis J30.9 Active Problem Anxiety associated with depression F41.8 Active Problem Injury of left hand S69.92XA Active Problem Irritant contact dermatitis due to other agents L24.89 Active Problem Hospital discharge follow-up Z09 Active Problem Acute non-recurrent maxillary sinusitis J01.00 Active Problem Chronic pain G89.29 Active Problem Neuropathy G62.9 Active Problem 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 M05.731 Active Problem Rheumatoid arthritis of left wrist without organ or system involvement with positive rheumatoid factor M05.732 Active Problem Hyperlipemia E78.5 Active Problem Hypertension I10 Active Assessment Chronic pain syndrome G89.4 Active Problem Migraine without aura, not intractable, with status migrainosus G43.001 Active Problem Atherosclerotic heart disease of [place] coronary artery 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.10 Active Problem CAD (coronary artery disease) I25.10 Active Problem Emphysema, unspecified J43.9 Active Problem Gastro-esophageal reflux disease without esophagitis K21.9 Active Problem Type 2 diabetes mellitus with diabetic neuropathy, unspecified E11.40 Active Medications Medication Code System Code Instructions Start Date End Date Status Dosage Baclofen [facility] [address]-72 10 mg Orally 2 times a day Dec 25, 2014 1 tablet with food or milk Results No Known Results Summary Purpose [employer]ClinicalWorks Submission
--- OUTSIDE RECORDS SUMMARY | 2017-02-28 11:44 | XMS REPORT ---
Author Author MARYANA ARGUETA [facility] [employer] Address Unknown Phone Unavailable Care Team Providers Care Supervisor Canvas Products Name Role Phone MARYANA ARGUETA CP Unavailable Allergies No Known Allergies Problems Problem Type Condition Code Onset Dates Condition Status Problem Hypertension I10 Active Problem Hyperlipemia E78.5 Active Problem Emphysema, unspecified J43.9 Active Problem Essential (primary) hypertension I10 Active Problem Type 2 diabetes mellitus with diabetic neuropathy, unspecified E11.40 Active Problem Gastro-esophageal reflux disease without esophagitis K21.9 Active Problem CAD (coronary artery disease) I25.10 Active Problem Atherosclerotic heart disease of [place] coronary artery 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.10 Active Problem Migraine without aura, not intractable, with status migrainosus G43.001 Active Medications No Known Medications Results No Known Results Summary Purpose [employer]ClinicalWorks Submission
--- OUTSIDE RECORDS SUMMARY | 2017-02-28 11:44 | XMS REPORT | Clinical Summary ---
Author Author [facility] Organization [facility] Address Unknown Phone Unavailable Care Team Providers Care Fabrication Machine Operator Name Role Phone PCP Unavailable Source Comments Some departments are not documenting in the electronic medical record. If you do not see the information that you expected, contact Release of Information in the Health Information Management department at [phone] for further assistance in locating additional records.[facility] Allergies Active Allergy Reactions Severity Noted Date Comments Montelukast DELUSIONS High 12/23/2015 Sulfa (Sulfonamide HIVES Medium 12/23/2015 Antibiotics) Aspirin STOMACH UPSET Low 12/23/2015 Current Medications No known medications Active Problems Problem Noted Date Arthropathy of left wrist 12/28/2015 Social History Tobacco Use Types Packs/Day Years Used Date Current Every Day Smoker Smokeless Tobacco: Never Used Alcohol Use Drinks/Week oz/Week Comments No Sex Assigned at Date Recorded Not on file Last Filed Vital Signs Vital Sign Reading Time Taken Blood Pressure 115/72 12/23/2015 11:22 AM CDT Pulse 81 12/23/2015 11:22 AM CDT Temperature - - Respiratory Rate - - Oxygen Saturation - - Inhaled Oxygen - - Concentration Weight 84.8 kg (187 lb) 12/23/2015 11:22 AM CDT Height 167.6 cm (5' 6") 12/23/2015 11:22 AM CDT Body Mass Index 30.18 12/23/2015 11:22 AM CDT Plan of Treatment Health Maintenance Due Date Last Done Comments HEPATITIS C SCREENING 1961 PHYSICAL (COMPREHENSIVE) 1968 EXAM PERTUSSIS VACCINE 1972 TETANUS VACCINE 1978 CERVICAL CANCER SCREENING 1991 BREAST CANCER SCREENING 2001 COLORECTAL CANCER 2011 SCREENING INFLUENZA VACCINE 10/18/2016 Results Not on filefrom Last 3 Months
--- OUTSIDE RECORDS SUMMARY | 2017-02-28 11:44 | XMS REPORT ---
Author MARYANA Coley [facility] eClinical[employer] Address Unknown Phone Unavailable Care Team Providers Care Hydropulper Name Role Phone MARYANA ARGUETA CP Unavailable Allergies, Adverse Reactions, Alerts Substance Reaction Event Type Sulfacetamide Sodium unknown Drug Allergy Singulair dizziness Drug Allergy Problems Problem Type Condition Code Onset Dates Condition Status Problem Hyperlipemia E78.5 Active Problem CAD (coronary artery disease) I25.10 Active Problem Hypertension I10 Active Problem Type 2 diabetes mellitus with diabetic neuropathy, unspecified E11.40 Active Problem Emphysema, unspecified J43.9 Active Problem Allergic rhinitis J30.9 Active Problem Migraine without aura, not intractable, with status migrainosus G43.001 Active Problem Gastro-esophageal reflux disease without esophagitis K21.9 Active Problem Essential (primary) hypertension I10 Active Problem Atherosclerotic heart disease of [place] coronary artery 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.10 Active Assessment Hyperlipemia E78.5 Active Assessment CAD (coronary artery disease) I25.10 Active Assessment Emphysema, unspecified J43.9 Active Assessment Type 2 diabetes mellitus with diabetic neuropathy, unspecified E11.40 Active Medications Medication Code System Code Instructions Start Date End Date Status Dosage Protonix [facility] [address]-02 20 MG Orally Once a day Dec 25, 2014 1 tablet Hydrocodone-Acetaminophen [facility] [address]-08 5-325 MG Orally every 6 hrs as needed for pain 1 tablet as needed Diabetic Vitamin Capsule ND 0 Resveratrol 175 mg/Alpha Lipoic Acid 50 mg/ CoQ10 50 mg/Methylcobalamin 0.5 mg/Eavfortwq-3-Zjradukpq 25 mg/Methionine 12.5 mg/Inositol 25 mg/Choline Bitartrate 25 mg Orally twice a day Dec 23, 2014 2 capsules Nasonex [facility] [address]-41 50 MCG/ACT Nasally Once a day 2 sprays in each nostril Lisinopril [facility] [address]-13 20 MG Orally Once a day 1 tablet Citalopram Hydrobromide [facility] [address]-02 20 MG Orally Once a day 1 tablet Oxygen ND 0 not defined Ventolin HFA [facility] [address]-14 108 (90 Base) MCG/ACT Inhalation every 4 hrs 2 puffs as needed Baclofen [facility] [address]-69 10 MG Orally Three times a day Dec 25, 2014 1 tablet with food or milk Pravastatin Sodium [facility] [address]-24 20 MG Orally Once a day- PT REPLACE CRESTOR October 16, 2014 1 tablet Albuterol Sulfate [facility] [address]-42 (2.5 MG/3ML) 0.083% Inhalation Three times a day 3 ml Cetirizine HCl [facility] 59563939140 10 TAKE 1 TABLET BY MOUTH DAILY Metformin HCl [facility] [address]-24 1000 MG Orally Twice a day 1 tablet with meals Metoprolol Tartrate [facility] [address]-43 25 MG Orally Twice a day 1 tablet Easy Touch Pen [place] [facility] 8496-087416 32G X 4 MM sq 4 times a day September as directed Lantus [facility] [address]-99 100 UNIT/ML Subcutaneous at night 60 units Symbicort [facility] [address]-29 160-4.5 MCG/ACT Inhalation Twice a day 2 puffs Fish Oil [facility] [address]29-[address]268 1200 MG Orally Once a day 1 capsule NovoLog Flexpen [facility] [address]-20 100 UNIT/ML Subcutaneous 3 times a day 20 units with meals Gabapentin [facility] [address]-94 300 MG Orally Three times a day Dec 25, 2014 1 capsule at morning and lunch, 2 tabs at hs DeVilbiss Nebulizer [facility] 05[address]-79289 not defined Aspirin Adult Low Strength [facility] [address]-49 81 MG Orally Once a day 1 tablet Procedures Procedure Coding System Code Date LIPID PANEL CPT-4 29812 Jan 20, 2015 VENIPUNCT, ROUTINE* CPT-4 44631 Jan 20, 2015 GLYCATED HEMOGLOBIN TEST CPT-4 44524 Jan 20, 2015 Office Visit, Est Pt., Level 3 CPT-4 09477 Jan 20, 2015 Vital Signs Date/Time: Jan 20, 2015 Temperature 98.7 F Weight 198.8 lbs Height 5'6 in BMI 38.82 Index Blood Pressure Diastolic 70 mmHg Blood Pressure Systolic 118 mmHg Cardiac Monitoring Heart Rate 88 bpm Results Name Result Date Reference Range Unit Abnormality Flag ROUTINE VENIPUNCTURE LIPID PANEL Summary Purpose eClinicalWorks Submission
--- OUTSIDE RECORDS SUMMARY | 2017-02-28 11:44 | XMS REPORT ---
Author MARYANA Coley [facility] eClinicalWorks Address Unknown Phone Unavailable Care Team Providers Care Sterile Processing Manager Name Role Phone MARYANA ARGUETA CP Unavailable Allergies No Known Allergies Problems Problem Type Condition Code Onset Dates Condition Status Problem Hyperlipemia E78.5 Active Problem CAD (coronary artery disease) I25.10 Active Problem Hypertension I10 Active Assessment Hyperlipemia E78.5 Active Problem Type 2 diabetes mellitus with diabetic neuropathy, unspecified E11.40 Active Problem Emphysema, unspecified J43.9 Active Problem Allergic rhinitis J30.9 Active Problem Migraine without aura, not intractable, with status migrainosus G43.001 Active Problem Gastro-esophageal reflux disease without esophagitis K21.9 Active Problem Essential (primary) hypertension I10 Active Problem Atherosclerotic heart disease of [place] coronary artery 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.10 Active Medications No Known Medications Results No Known Results Summary Purpose eClinicalWorks Submission
[2017-02-28] MEDS ORDERED: HURRICAINE EXT TUBE (BENZOCAINE) XX PRN (11:45)
--- OUTSIDE RECORDS SUMMARY | 2017-02-28 11:45 | XMS REPORT ---
Author Author CLAU DELEON Organization [employer] Address Unknown Phone Unavailable Care Team Providers Care Needle Straightener Name Role Phone CLAU DELEON CP Unavailable [...] Hyperlipemia E78.5 Active Problem Hypertension I10 Active Problem Migraine without aura, not intractable, with status migrainosus G43.001 Active Problem Atherosclerotic heart disease of [place] coronary artery 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.10 Active Problem CAD (coronary artery disease) I25.10 Active Problem Emphysema, unspecified J43.9 Active Problem Gastro-esophageal reflux disease without esophagitis K21.9 Active Problem Type 2 diabetes mellitus with diabetic neuropathy, unspecified E11.40 Active Medications No Known Medications Results No Known Results Summary Purpose eClinicalWorks Submission
--- OUTSIDE RECORDS SUMMARY | 2017-02-28 11:45 | XMS REPORT ---
Author Author CLAU DELEON Organization [employer] Address Unknown Phone Unavailable Care Team Providers Care Wrapper Caser Name Role Phone CLAU DELOEN CP Unavailable Allergies No Known Allergies Problems [...] G43.001 Active Problem Atherosclerotic heart disease of [place] coronary artery 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.10 Active Problem CAD (coronary artery disease) I25.10 Active Problem Emphysema, unspecified J43.9 Active Problem Gastro-esophageal reflux disease without esophagitis K21.9 Active Problem Type 2 diabetes mellitus with diabetic neuropathy, unspecified E11.40 Active Medications Medication Code System Code Instructions Start Date End Date Status Dosage Baclofen [facility] [address]-79 10 mg Orally Three times a day Dec 25, 2014 1 tablet with food or milk Hydrocodone-Acetaminophen [facility] [address]-07 5-325 MG Orally 3 times a day 1 tablet as needed Results No Known Results Summary Purpose eClinicalWorks Submission
--- OUTSIDE RECORDS SUMMARY | 2017-02-28 11:45 | XMS REPORT ---
Author Author BRANDIN REYES [facility] Address [address] [place] [address] Care Team Providers Care Weather Clerk Name Role Phone AMY BRANDIN Unavailable PROBLEMS Type Condition ICD9-CM Code TED71-GS Code Onset Dates Condition Status SNOMED Code Problem Chronic pain G89.29 Active 00531269 Problem 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 M05.731 Active 045467025 Problem Rheumatoid arthritis of left wrist without organ or system involvement with positive rheumatoid factor M05.732 Active 844772860 Problem Acute non-recurrent frontal sinusitis J01.10 Active 77346458 Problem Hypertension I10 Active 39573575 Problem Elevated white blood cell count, unspecified D72.829 Active 380855315 Problem Hyperlipemia E78.5 Active 81518905 Assessment 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 M05.731 Jan, Active 42679579 Problem Irritant contact dermatitis due to other agents L24.89 Active 352781384 Problem Hospital discharge follow-up Z09 Active 600368883 Problem Pain in left knee M25.562 Active 04167400 Problem Acute non-recurrent maxillary sinusitis J01.00 Active 34844489 Problem Migraine without aura, not intractable, with status migrainosus G43.001 Active 08629823 Problem Atherosclerotic heart disease of [place] coronary artery 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.10 Active 723628206 Problem CAD (coronary artery disease) I25.10 Active 21449218 Problem Gastro-esophageal reflux disease without esophagitis K21.9 Active 689557747 Problem Allergic rhinitis J30.9 Active 74031035 Problem Injury of left hand S69.92XA Active 555017077 Problem Emphysema, unspecified J43.9 Active 49898659 Problem Anxiety associated with depression F41.8 Active 666089379 Problem Type 2 diabetes mellitus with diabetic neuropathy, unspecified E11.40 Active 44789388 Problem Neuropathy G62.9 Active 557662001 ALLERGIES Substance Reaction Event Type Date Status Sulfacetamide Sodium unknown Drug Allergy Jan, Active Singulair dizziness Drug Allergy Jan, Active SOCIAL HISTORY No smoking Hx information available PLAN OF CARE VITAL SIGNS Height 66 in 2016-02-08 Weight 190 lbs 2016-02-08 Heart Rate 80 bpm 2016-02-08 Respiratory Rate 16 2016-02-08 BMI 30.66 kg/m2 2016-02-08 Blood pressure systolic 100 mmHg 2016-02-08 Blood pressure diastolic 70 mmHg 2016-02-08 MEDICATIONS Medication Instructions Dosage Frequency Start Date End Date Duration Status Aleve 220 MG Orally every 12 hrs 1 tablet 12h Active Symbicort 160-4.5 MCG/ACT Inhalation Twice a day 2 puffs 12h Active Fenofibrate 54 MG Orally Once a day 1 tablet with a meal 24h Oct, 90 days Active Blood Glucose Monitor System w/Device as directed July, Active Protonix 20 mg Orally Once a day 1 tablet 24h Active Methotrexate 2.5 MG TAKE EIGHT TABLETS BY MOUTH ONCE WEEKLY 28 Active Fish Oil 1200 MG Orally Once a day 1 capsule 24h Active Hydrocodone-Acetaminophen 5-325 MG Orally 3 times a day 1 tablet as needed 8h Active Easy Touch Pen [place] 32G X 4 MM sq 4 times a day as directed 6h Sep, Active Nystatin-Triamcinolone 944680-9.1 UNIT/GM Externally Twice a day apply thin layer to irritated abdominal areas 12h July, Active Citalopram Hydrobromide 40 MG Orally Once a day 1 tablet 24h Active Quad Cane as directed May, Active Baclofen 10 mg Orally Three times a day 1 tablet with food or milk 8h 90 Active Mucinex 600 MG Orally every 12 hrs 1 tablet as needed 12h Mar, Active Metformin HCl 1000 MG Orally Twice a day with meals 1 tablet with meals Jan, Active Blood Glucose Test Test Strips In Vitro 4 times a day test blood sugar 6h Jun, Active Oxygen Active Plaquenil 200 mg Orally Once a day 1 tablet with food or milk 24h Jan, 20 Jul, 2016 90 days Active Lisinopril 20 mg Orally Once a day 1 tablet 24h 90 days Active Aspirin Adult Low Strength 81 MG Orally Once a day 1 tablet 24h Active Ventolin HFA 108 (90 Base) MCG/ACT Inhalation every 4 hrs 2 puffs as needed 4h Active Metoprolol Tartrate 25 MG Orally Twice a day 1 tablet 12h Active Azithromycin 250 MG Orally Once a day 2 tablets on the first day, then 1 tablet daily for 4 days 24h Jan, Jan, 5 day(s) Active Lyrica 25 MG Orally 2 times a day 1 capsules 12h Jan, Active Albuterol Sulfate (2.5 MG/3ML) 0.083% Inhalation Three times a day 3 ml 8h Active Lyrica 50 MG Orally Twice a day 1 capsule 12h Oct, Active Victoza 18 MG/3ML Subcutaneous Once a day 1.8mg 24h Active Cetirizine HCl 10 Orally Once a day TAKE 1 TABLET BY MOUTH DAILY 24h Active Folic Acid 1 MG Orally Once a day 1 tablet 24h 90 Active Nasonex 50 MCG/ACT Nasally Once a day 2 sprays in each nostril 24h Active RESULTS No Results PROCEDURES Procedure Date Ordered Related Diagnosis Body Site Office Visit, Est Pt., Level 4 Feb 08, 2016 IMMUNIZATIONS No Known Immunizations
--- OUTSIDE RECORDS SUMMARY | 2017-02-28 11:45 | XMS REPORT ---
Author Author DELEONCLAU Moran Organization [facility] Address [address] [place] [address] Care Team Providers Care Ribbon Tier Name Role Phone DELEONCLAU Moran Unavailable PROBLEMS Type Condition ICD9-CM Code DIC15-KR Code Onset Dates Condition Status SNOMED Code Problem Neuropathy G62.9 Active 950741845 Problem Rheumatoid arthritis of left wrist without organ or system involvement with positive rheumatoid factor M05.732 Active 214977209 Problem Chronic pain G89.29 Active 33979690 Problem Elevated white blood cell count, unspecified D72.829 Active 254215698 Problem Hyperlipemia E78.5 Active 94361237 Problem Pain in left knee M25.562 Active 31924570 Problem Hospital discharge follow-up Z09 Active 590412639 Problem 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 M05.731 Active 324542391 Problem Acute non-recurrent maxillary sinusitis J01.00 Active 95423576 Problem Irritant contact dermatitis due to other agents L24.89 Active 911907493 Problem Gastro-esophageal reflux disease without esophagitis K21.9 Active 293939938 Problem Migraine without aura, not intractable, with status migrainosus G43.001 Active 34908819 Problem Hypertension I10 Active 15123121 Problem CAD (coronary artery disease) I25.10 Active 08085660 Problem Type 2 diabetes mellitus with diabetic neuropathy, unspecified E11.40 Active 73526624 Problem Allergic rhinitis J30.9 Active 36853987 Problem Atherosclerotic heart disease of [place] coronary artery 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.10 Active 505596474 Problem Injury of left hand S69.92XA Active 207596491 Problem Emphysema, unspecified J43.9 Active 37159876 Problem Anxiety associated with depression F41.8 Active 904959627 ALLERGIES Unknown Allergies SOCIAL HISTORY No smoking Hx information available PLAN OF CARE VITAL SIGNS MEDICATIONS Medication Instructions Dosage Frequency Start Date End Date Duration Status Lyrica 75 MG Orally Twice a day 1 capsule 12h 18 Oct, 2016 Active RESULTS No Results PROCEDURES No Known procedures IMMUNIZATIONS No Known Immunizations
--- OUTSIDE RECORDS SUMMARY | 2017-02-28 11:45 | XMS REPORT ---
Author Author DELEONCLAU Moran Organization [facility] Address [address] [place] [address] Care Team Providers Care Manager Pet Name Role Phone DELEONCLAU Moran Unavailable PROBLEMS Type Condition ICD9-CM Code NIT83-SE Code Onset Dates Condition Status SNOMED Code Problem Anxiety associated with depression F41.8 Active 541977281 Problem Rheumatoid arthritis of left wrist without organ or system involvement with positive rheumatoid factor M05.732 Active 297623921 Problem Chronic pain G89.29 Active 35996589 Problem Acute exacerbation of chronic obstructive pulmonary disease (COPD) J44.1 Active 767751924 Problem Periodontitis K05.30 Active 40310622 Problem OAB (overactive bladder) N32.81 Active 591979934 Problem 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 M05.731 Active 434219692 Problem Primary insomnia F51.01 Active 5619574 Problem Rheumatoid arthritis involving multiple sites with positive rheumatoid factor M05.79 Active 710714757 Problem Vitamin D deficiency E55.9 Active 19185833 Problem Gastro-esophageal reflux disease without esophagitis K21.9 Active 298320523 Problem Emphysema, unspecified J43.9 Active 47545570 Problem Hyperlipemia E78.5 Active 18742772 Problem Type 2 diabetes mellitus with diabetic neuropathy, unspecified E11.40 Active 89291246 Problem Hypertension I10 Active 19265141 Problem Allergic rhinitis J30.9 Active 91920910 ALLERGIES Substance Reaction Event Type Date Status Sulfamethoxazole-Trimethoprim Unknown Drug Allergy Feb, Active Singulair dizziness Drug Allergy Feb, Active SOCIAL HISTORY No smoking Hx information available PLAN OF CARE Activity Details Follow Up prn Reason: VITAL SIGNS Height 66 in 2016-03-15 Weight 196.0 lbs 2016-03-15 Temperature 97.8 degrees Fahrenheit 2016-03-15 Heart Rate 84 bpm 2016-03-15 Respiratory Rate 22 2016-03-15 BMI 31.63 kg/m2 2016-03-15 Blood pressure systolic 112 mmHg 2016-03-15 Blood pressure diastolic 70 mmHg 2016-03-15 MEDICATIONS Medication Instructions Dosage Frequency Start Date End Date Duration Status Mucinex 600 MG Orally every 12 hrs 1 tablet as needed 12h Mar, Active Methotrexate 2.5 MG TAKE EIGHT TABLETS BY MOUTH ONCE WEEKLY 28 Active Citalopram Hydrobromide 40 MG Orally Once a day 1 tablet 24h Active Baclofen 10 mg Orally Three times a day 1 tablet with food or milk 8h 90 Active Aleve 220 MG Orally every 12 hrs 1 tablet 12h Active Victoza 18 MG/3ML Subcutaneous Once a day 1.8mg 24h Active Aspirin Adult Low Strength 81 MG Orally Once a day 1 tablet 24h Active Nystatin-Triamcinolone 908651-1.1 UNIT/GM Externally Twice a day apply thin layer to irritated abdominal areas 12h July, Active Symbicort 160-4.5 MCG/ACT Inhalation Twice a day 2 puffs 12h Active Metoprolol Tartrate 25 MG Orally Twice a day 1 tablet 12h Active Protonix 20 mg Orally Once a day 1 tablet 24h Active Albuterol Sulfate (2.5 MG/3ML) 0.083% Inhalation Three times a day 3 ml 8h Active Fish Oil 1200 MG Orally Once a day 1 capsule 24h Active Lyrica 75 MG Orally Twice a day 1 capsule 12h Feb, 28 days Active Hydrocodone-Acetaminophen 5-325 MG Orally 3 times a day 1 tablet as needed 8h Active Plaquenil 200 mg Orally Once a day 1 tablet with food or milk 24h Jan, July, 90 days Active Lisinopril 20 mg Orally Once a day 1 tablet 24h 90 days Active Blood Glucose Monitor System w/Device as directed July, Active Nasonex 50 MCG/ACT Nasally Once a day 2 sprays in each nostril 24h Active Cetirizine HCl 10 Orally Once a day TAKE 1 TABLET BY MOUTH DAILY 24h Active Folic Acid 1 MG Orally Once a day 1 tablet 24h 90 Active Easy Touch Pen [place] 32G X 4 MM sq 4 times a day as directed 6h Sep, Active Oxygen Active PredniSONE 20 mg Orally Once a day 1 tablet 24h Feb, Mar, 05 days Active Fenofibrate 54 MG Orally Once a day 1 tablet with a meal 24h Oct, 90 days Active Blood Glucose Test Test Strips In Vitro 4 times a day test blood sugar 6h Jun, Active Quad Cane as directed May, Active Ventolin HFA 108 (90 Base) MCG/ACT Inhalation every 4 hrs 2 puffs as needed 4h Active Metformin HCl 1000 MG Orally Twice a day with meals 1 tablet with meals Jan, Active RESULTS Name Result Date Reference Range THYROID ANALYZER 2016-03-15 TSH 1.820 0.450-4.500 VITAMIN B12 2016-03-15 Vitamin B12 449 211-946 VITAMIN D, 25-H 2016-03-15 Vitamin D, 25-Hydroxy 14.0 30.0-100.0 LIPID PANEL 2016-03-15 Cholesterol, Total 189 100-199 Triglycerides 195 0-149 HDL Cholesterol 38 >39 VLDL Cholesterol Jose 39 5-40 LDL Cholesterol Calc 112 0-99 Xray : Chest (IN HOUSE) 2016-03-15 PROCEDURES Procedure Date Ordered Related Diagnosis Body Site CHEST X-RAY Mar 15, 2016 LAB NOT BILLED BY [facility] Mar 15, 2016 VENIPUNCT, ROUTINE* Mar 15, 2016 Office Visit, Est Pt., Level 3 Mar 15, 2016 IMMUNIZATIONS No Known Immunizations
--- OUTSIDE RECORDS SUMMARY | 2017-02-28 11:45 | XMS REPORT ---
Author MARYANA Coley [facility] e[employer] Address Unknown Phone Unavailable Care Team Providers Care Potato Peeler Name Role Phone MARYANA ARGUETA CP Unavailable Allergies, Adverse Reactions, Alerts Substance Reaction Event Type Sulfacetamide Sodium Info Not Available Drug Allergy Problems Problem Type Condition Code Onset Dates Condition Status Assessment Pain in thoracic spine M54.6 Active Problem Hypertension I10 Active Problem Hyperlipemia E78.5 Active Problem Emphysema, unspecified J43.9 Active Problem Essential (primary) hypertension I10 Active Problem Type 2 diabetes mellitus with diabetic neuropathy, unspecified E11.40 Active Problem Gastro-esophageal reflux disease without esophagitis K21.9 Active Problem CAD (coronary artery disease) I25.10 Active Problem 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 Active Problem Migraine without aura, not intractable, with status migrainosus G43.001 Active Assessment Migraine without aura, not intractable, with status migrainosus G43.001 Active Assessment Emphysema, unspecified J43.9 Active Assessment Gastro-esophageal reflux disease without esophagitis K21.9 Active Medications Medication Code System Code Instructions Start Date End Date Status Dosage Nasonex [facility] [address]-95 50 MCG/ACT Nasally Once a day 2 sprays in each nostril Citalopram Hydrobromide [facility] [address]-27 20 MG Orally Once a day 1 tablet DeVilbiss Nebulizer [facility] [address] not defined Metoprolol Tartrate [facility] [address]-22 25 MG Orally Twice a day 1 tablet Metformin HCl [facility] [address]-59 1000 MG Orally Twice a day 1 tablet with meals Aspirin Adult Low Strength [facility] [address]-12 81 MG Orally Once a day 1 tablet Diabetic Topical Pain Cream ND 0 Flurbiprofen FDC 20%, Baclofen FDC 4%, Cyclobenzaprine HCL 2%, Gabapentin 10%, Lidocaine HCL 5% Topically to the focal site of pain 3-4 times per day Dec 23, 2014 Apply 1 to 2 pumps Pravastatin Sodium [facility] [address]-32 20 MG Orally Once a day- PT REPLACE CRESTOR October 16, 2014 1 tablet NovoLog Flexpen [facility] [address]-07 100 UNIT/ML Subcutaneous 3 times a day 18 units with meals Lantus [facility] [address]-26 100 UNIT/ML Subcutaneous at night 60 units Symbicort [facility] [address]-45 160-4.5 MCG/ACT Inhalation Twice a day 2 puffs Cetirizine HCl [facility] 72293256844 10 TAKE 1 TABLET BY MOUTH DAILY Diabetic Vitamin Capsule ND 0 Resveratrol 175 mg/Alpha Lipoic Acid 50 mg/ CoQ10 50 mg/Methylcobalamin 0.5 mg/Fqxqksxlc-2-Umnkmjfyv 25 mg/Methionine 12.5 mg/Inositol 25 mg/Choline Bitartrate 25 mg Orally twice a day Dec 23, 2014 2 capsules Protonix [facility] [address]-13 20 MG Orally Once a day Dec 25, 2014 1 tablet Gabapentin [facility] [address]-53 300 MG Orally Three times a day Dec 25, 2014 1 capsule at morning and lunch, 2 tabs at hs Easy Touch Pen [place] [facility] 8496-929371 32G X 4 MM sq 4 times a day September as directed Lisinopril [facility] [address]-73 20 MG Orally Once a day 1 tablet Hydrocodone-Acetaminophen [facility] [address]-85 5-325 MG Orally every 6 hrs as needed for pain 1 tablet as needed Baclofen [facility] [address]-38 10 MG Orally Three times a day Dec 25, 2014 1 tablet with food or milk Fish Oil [facility] [address] 1200 MG Orally Once a day 1 capsule Albuterol Sulfate [facility] [address]-32 (2.5 MG/3ML) 0.083% Inhalation Three times a day 3 ml Ventolin HFA [facility] [address]-77 108 (90 Base) MCG/ACT Inhalation every 4 hrs 2 puffs as needed Procedures Procedure Coding System Code Date Office Visit, Est Pt., Level 3 CPT-4 95561 Dec 25, 2014 Vital Signs Date/Time: Dec 25, 2014 Temperature 98.7 F Weight 199.2 lbs Height 5'6 in BMI 38.90 Index Blood Pressure Diastolic 64 mmHg Blood Pressure Systolic 130 mmHg Cardiac Monitoring Heart Rate 80 bpm Results No Known Results Summary Purpose eClinicalWorks Submission
--- OUTSIDE RECORDS SUMMARY | 2017-02-28 11:45 | XMS REPORT ---
Author BRANDIN Wolff Organization [employer] Address Unknown Phone Unavailable Care Team Providers Care Ocean Export Agent Name Role Phone BRANDIN HARDWICK CP Unavailable Allergies No Known Allergies Problems Problem Type Condition Code Onset Dates Condition Status Problem Atherosclerotic heart disease of [place] coronary artery 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.10 Active Problem Type 2 diabetes mellitus with diabetic neuropathy, unspecified E11.40 Active Problem Emphysema, unspecified J43.9 Active Problem Rheumatoid arthritis of left wrist without organ or system involvement with positive rheumatoid factor M05.732 Active Problem Chronic pain G89.29 Active Problem 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 M05.731 Active Problem Injury of left hand S69.92XA Active Problem Allergic rhinitis J30.9 Active Problem Neuropathy G62.9 Active Problem Anxiety associated with depression F41.8 Active Problem Hypertension I10 Active Problem CAD (coronary artery disease) I25.10 Active Problem Gastro-esophageal reflux disease without esophagitis K21.9 Active Problem Hyperlipemia E78.5 Active Problem Migraine without aura, not intractable, with status migrainosus G43.001 Active Medications No Known Medications Results No Known Results Summary Purpose eClinicalWorks Submission
--- OUTSIDE RECORDS SUMMARY | 2017-02-28 11:46 | XMS REPORT ---
Author Author BRANDIN REYES [facility] Address [address] [place] [address] Care Team Providers Care Buckle Assembler Name Role Phone BRANDIN REYES Unavailable PROBLEMS Type Condition ICD9-CM Code EYS15-BW Code Onset Dates Condition Status SNOMED Code Problem Anxiety associated with depression F41.8 Active 128618541 Problem 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 M05.731 Active 997033364 Problem Chronic pain G89.29 Active 62636967 Problem Acute exacerbation of chronic obstructive pulmonary disease (COPD) J44.1 Active 030553894 Problem Periodontitis K05.30 Active 96732475 Problem OAB (overactive bladder) N32.81 Active 759605934 Problem Rheumatoid arthritis of left wrist without organ or system involvement with positive rheumatoid factor M05.732 Active 930114868 Problem Primary insomnia F51.01 Active 0801966 Problem Rheumatoid arthritis involving multiple sites with positive rheumatoid factor M05.79 Active 948289599 Problem Vitamin D deficiency E55.9 Active 21467860 Problem Gastro-esophageal reflux disease without esophagitis K21.9 Active 668159534 Problem Emphysema, unspecified J43.9 Active 36116466 Problem Hyperlipemia E78.5 Active 32255897 Problem Type 2 diabetes mellitus with diabetic neuropathy, unspecified E11.40 Active 95526972 Problem Hypertension I10 Active 40587892 Problem Allergic rhinitis J30.9 Active 23213319 ALLERGIES Substance Reaction Event Type Date Status Sulfamethoxazole-Trimethoprim Unknown Drug Allergy Mar, Active Singulair dizziness Drug Allergy Mar, Active SOCIAL HISTORY No smoking Hx information available PLAN OF CARE Activity Details Follow Up 3 Months Reason: VITAL SIGNS Height 66 in 2016-04-04 Weight 190.6 lbs 2016-04-04 Temperature 98.5 degrees Fahrenheit 2016-04-04 Heart Rate 80 bpm 2016-04-04 Respiratory Rate 20 2016-04-04 Oximetry 93 % 2016-04-04 BMI 30.76 kg/m2 2016-04-04 Blood pressure systolic 108 mmHg 2016-04-04 Blood pressure diastolic 68 mmHg 2016-04-04 MEDICATIONS Medication Instructions Dosage Frequency Start Date End Date Duration Status Cetirizine HCl 10 Orally Once a day TAKE 1 TABLET BY MOUTH DAILY 24h Active Protonix 20 mg Orally Once a day 1 tablet 24h Active Plaquenil 200 mg Orally Once a day 1 tablet with food or milk 24h Jan, July, 90 days Active Fish Oil 1200 MG Orally Once a day 1 capsule 24h Active Lisinopril 20 mg Orally Once a day 1 tablet 24h 90 days Active Nystatin-Triamcinolone 122850-9.1 UNIT/GM Externally Twice a day apply thin layer to irritated abdominal areas 12h July, Active Citalopram Hydrobromide 40 MG Orally Once a day 1 tablet 24h Active Lyrica 75 MG Orally Twice a day 1 capsule 12h Feb, 28 days Active Easy Touch Pen [place] 32G X 4 MM sq 4 times a day as directed 6h Sep, Active Oxygen Active Nasonex 50 MCG/ACT Nasally Once a day 2 sprays in each nostril 24h Active Cholecalciferol 19946 UNIT Orally once weekly 1 capsule Feb, May, 90 days Active Albuterol Sulfate (2.5 MG/3ML) 0.083% Inhalation Three times a day 3 ml 8h Active Symbicort 160-4.5 MCG/ACT Inhalation Twice a day 2 puffs 12h Active Blood Glucose Monitor System w/Device as directed July, Active Blood Glucose Test Test Strips In Vitro 4 times a day test blood sugar 6h Jun, Active Metoprolol Tartrate 25 MG TAKE ONE TABLET BY MOUTH TWICE DAILY 30 Active Folic Acid 1 MG Orally Once a day 1 tablet 24h 90 Active Baclofen 10 mg Orally Three times a day 1 tablet with food or milk 8h 90 Active Ventolin HFA 108 (90 Base) MCG/ACT Inhalation every 4 hrs 2 puffs as needed 4h Active Aspirin Adult Low Strength 81 MG Orally Once a day 1 tablet 24h Active Metformin HCl 1000 MG TAKE ONE TABLET BY MOUTH TWICE DAILY WITH MEALS 30 Active Gemfibrozil 600 MG Orally Twice a day 1 tablet 12h Feb, 30 day( s) Active Mucinex 600 MG Orally every 12 hrs 1 tablet as needed 12h Mar, Active Hydrocodone-Acetaminophen 7.5-325 MG Orally every 6 hours as needed 1 tablet as needed 9 Apr, 2016 28 days Active Victoza 18 MG/3ML Subcutaneous Once a day 1.8mg 24h Active Aleve 220 MG Orally every 12 hrs 1 tablet 12h Active Methotrexate 2.5 MG TAKE EIGHT TABLETS BY MOUTH ONCE WEEKLY 28 Active RESULTS Name Result Date Reference Range ESR/SED RATE 2016-04-04 Sedimentation Rate-Westergren 27 0-40 CRP 2016-04-04 C-Reactive Protein, Quant 5.3 0.0-4.9 PROCEDURES Procedure Date Ordered Related Diagnosis Body Site MEASURE BLOOD OXYGEN LEVEL Apr 04, 2016 LAB NOT BILLED BY [facility] Apr 04, 2016 Office Visit, Est Pt., Level 4 Apr 04, 2016 VENIPUNCT, ROUTINE* Apr 04, 2016 IMMUNIZATIONS No Known Immunizations
--- OUTSIDE RECORDS SUMMARY | 2017-02-28 11:46 | XMS REPORT ---
Author Author PANCHO CLAU Organization [facility] Address [address] [place] [address] Care Team Providers Care Litigation Partner Name Role Phone DELEONROB MoranELE Unavailable PROBLEMS Type Condition ICD9-CM Code RQA21-IV Code Onset Dates Condition Status SNOMED Code Problem Chronic pain G89.29 Active 73445843 Problem Rheumatoid arthritis of left wrist without organ or system involvement with positive rheumatoid factor M05.732 Active 722265079 Problem 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 M05.731 Active 414496752 Problem Neuropathy G62.9 Active 256170614 Problem Acute exacerbation of chronic obstructive pulmonary disease (COPD) J44.1 Active 104734751 Problem Rheumatoid arthritis involving multiple sites with positive rheumatoid factor M05.79 Active 950061993 Problem OAB (overactive bladder) N32.81 Active 838084137 Problem Periodontitis K05.30 Active 24137645 Problem Primary insomnia F51.01 Active 3786876 Problem Vitamin D deficiency E55.9 Active 25873336 Problem Hypertension I10 Active 95888227 Problem Gastro-esophageal reflux disease without esophagitis K21.9 Active 694392820 Problem Emphysema, unspecified J43.9 Active 52418293 Problem Hyperlipemia E78.5 Active 99659178 Problem Allergic rhinitis J30.9 Active 33653996 Problem Type 2 diabetes mellitus with diabetic neuropathy, unspecified E11.40 Active 66432898 Problem Anxiety associated with depression F41.8 Active 747213536 ALLERGIES No Information SOCIAL HISTORY Never Assessed PLAN OF CARE VITAL SIGNS MEDICATIONS Medication Instructions Dosage Frequency Start Date End Date Duration Status Qnasl 80 MCG/ACT Nasally Once a day 2 puffs in each nostril 24h July, 30 day(s) Active RESULTS No Results PROCEDURES No Known procedures IMMUNIZATIONS No Known Immunizations MEDICAL (GENERAL) HISTORY Type Description Date Medical History COPD Medical History Type 2 Diabetes Medical History HTN Medical History Cardiac stents July 2010 post [place]-stent to LAD Medical History Rheumatoid Arthritis Medical History 04/2016---Echo- 60%//mild hypertrophy at the base of the septum , mild mitral regurg/ mild tricuspid regurg. PAP about 10-15 mmHg Medical History 04/2016------Normal Lexiscan Medical History Elevated white blood cell count, unspecified Medical History Atherosclerotic heart disease of [place] coronary artery without angina pectoris Medical History Migraine without aura, not intractable, with status migrainosus Surgical History hysterectomy Surgical History gall bladder removal Surgical History tonsilectomy Surgical History hernia Surgical History heart cath 2014 Surgical History stent 07/20/2010 Surgical History tendon repair-left wrist Surgical History left knee repair june 2016 Hospitalization History surgery related Hospitalization History heart cath
--- OUTSIDE RECORDS SUMMARY | 2017-02-28 11:46 | XMS REPORT ---
Author Author DELEONCLAU Organization [facility] Address [address] [place] [address] Care Team Providers Care Lawyers Name Role Phone DELEONCLAU Moran Unavailable PROBLEMS Type Condition ICD9-CM Code [id number] Code Onset Dates Condition Status SNOMED Code Problem Anxiety associated with depression F41.8 Active 086238762 Problem 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 M05.731 Active 270891189 Problem Chronic pain G89.29 Active 38461550 Problem Acute exacerbation of chronic obstructive pulmonary disease (COPD) J44.1 Active 062389061 Problem Periodontitis K05.30 Active 95184312 Problem OAB (overactive bladder) N32.81 Active 062962451 Problem Rheumatoid arthritis of left wrist without organ or system involvement with positive rheumatoid factor M05.732 Active 580850372 Problem Primary insomnia F51.01 Active 0399470 Problem Rheumatoid arthritis involving multiple sites with positive rheumatoid factor M05.79 Active 273497818 Problem Vitamin D deficiency E55.9 Active 72860375 Problem Gastro-esophageal reflux disease without esophagitis K21.9 Active 410997138 Problem Emphysema, unspecified J43.9 Active 05066872 Problem Hyperlipemia E78.5 Active 03466600 Problem Type 2 diabetes mellitus with diabetic neuropathy, unspecified E11.40 Active 56630547 Problem Hypertension I10 Active 43157982 Problem Allergic rhinitis J30.9 Active 88645757 ALLERGIES Substance Reaction Event Type Date Status Sulfamethoxazole-Trimethoprim Unknown Drug Allergy May, Active Singulair dizziness Drug Allergy May, Active SOCIAL HISTORY Never Assessed PLAN OF CARE Activity Details Follow Up 3 Months Reason:M VITAL SIGNS Height 66 in 2016-05-19 Weight 194.1 lbs 2016-05-19 Temperature 98.5 degrees Fahrenheit 2016-05-19 Heart Rate 88 bpm 2016-05-19 Respiratory Rate 20 2016-05-19 BMI 31.33 kg/m2 2016-05-19 Blood pressure systolic 126 mmHg 2016-05-19 Blood pressure diastolic 74 mmHg 2016-05-19 MEDICATIONS Medication Instructions Dosage Frequency Start Date End Date Duration Status Hydrocodone-Acetaminophen 7.5-325 MG Orally every 6 hours as needed 1 tablet as needed 28 days Active Cetirizine HCl 10 Orally Once a day TAKE 1 TABLET BY MOUTH DAILY 24h Active Lyrica 75 MG Orally Twice a day 1 capsule 12h Feb, Active Lisinopril 20 mg Orally Once a day 1 tablet 24h Active Blood Glucose Test Test Strips In Vitro 4 times a day test blood sugar 6h Jun, Active Depend Adjustable Underwear Lg 1 as directed 3 times a day use one depends three times per day as needed 8h May, 12 months Active Aspirin Adult Low Strength 81 MG Orally Once a day 1 tablet 24h Active Citalopram Hydrobromide 40 MG TAKE ONE TABLET BY MOUTH ONCE DAILY Active Cholecalciferol 36305 UNIT Orally once weekly 1 capsule Feb, May, 90 days Active Vitamin D 2000 UNIT Orally Once a day 1 tablet-start on 06/13/16 24h MayJuly, 90 days Active Folic Acid 1 MG Orally Once a day 1 tablet 24h Active Symbicort 160-4.5 MCG/ACT Inhalation Twice a day 2 puffs 12h Active Oxygen Active Victoza 18 MG/3ML Subcutaneous Once a day 1.8mg 24h Active Metoprolol Tartrate 25 MG TAKE ONE TABLET BY MOUTH TWICE DAILY Active Pantoprazole Sodium 20 MG TAKE ONE TABLET BY MOUTH ONCE DAILY 30 Active Baclofen 10 MG TAKE ONE TABLET BY MOUTH THREE TIMES DAILY WITH FOOD OR MILK 30 Active Ventolin HFA 108 (90 Base) MCG/ACT Inhalation every 4 hrs 2 puffs as needed 4h Active Easy Touch Pen [place] 32G X 4 MM sq 4 times a day as directed 6h Sep, Active Albuterol Sulfate (2.5 MG/3ML) 0.083% Inhalation Three times a day 3 ml 8h Active Aleve 220 MG Orally every 12 hrs 1 tablet 12h Active Protonix 20 mg Orally Once a day 1 tablet 24h Active Fish Oil 1200 MG Orally Once a day 1 capsule 24h Active Gemfibrozil 600 MG Orally Twice a day 1 tablet 12h 30 Feb, 2016 Active Blood Glucose Monitor System w/Device as directed July, Active Metformin HCl 1000 MG TAKE ONE TABLET BY MOUTH TWICE DAILY WITH MEALS Active Mucinex 600 MG Orally every 12 hrs 1 tablet as needed 12h Mar, Active Nasonex 50 MCG/ACT Nasally Once a day 2 sprays in each nostril 24h Active Plaquenil 200 mg Orally Once a day 1 tablet with food or milk 24h Jan, July, Active Nystatin-Triamcinolone 845594-4.1 UNIT/GM Externally Twice a day apply thin layer to irritated abdominal areas 12h July, Active Methotrexate 2.5 MG TAKE EIGHT TABLETS BY MOUTH ONCE WEEKLY Active RESULTS Name Result Date Reference Range MICROALBUMIN/CREATININE RATIO, URINE 2016-05-19 Creatinine, Urine 47.9 Not Estab. Microalbumin, Urine <3.0 Not Estab. Microalb/Creat Ratio <6.3 0.0-30.0 A1C (IN HOUSE) 2016-05-19 A1C IN HOUSE 6.8 4.3 - 5.6 % Previous A1c 5.8 Lot [id number] Exp date MICROALBUMIN, URINE (IN HOUSE) 2016-05-19 MICROALBUMIN Abnormal Lot # [id number] Exp date Clarity Clear Color Yellow ALB CRE A:C (IN HOUSE) Control Control Lot # Exp date PROCEDURES Procedure Date Ordered Result Body Site GLYCATED HEMOGLOBIN TEST May 19, 2016 MICROALBUMIN, SEMIQUANT May 19, 2016 MICROALBUMIN, QUANTITATIVE May 19, 2016 ASSAY OF URINE CREATININE May 19, 2016 IMMUNIZATIONS No Known Immunizations MEDICAL (GENERAL) HISTORY Type Description Date Medical History COPD Medical History Type 2 Diabetes Medical History HTN Medical History Cardiac stents July 2010 post [place]-stent to LAD Medical History Rheumatoid Arthritis Medical History 04/2016---Echo- 60%//mild hypertrophy at the base of the septum , mild mitral regurg/ mild tricuspid regurg. PAP about 10-15 mmHg Medical History 04/2016------Normal Lexiscan Medical History Elevated white blood cell count, unspecified Medical History Atherosclerotic heart disease of [place] coronary artery without angina pectoris Medical History [...]
--- OUTSIDE RECORDS SUMMARY | 2017-02-28 11:46 | XMS REPORT ---
Author Author DELEONCALU Moran Organization [facility] Address [address] [place] [address] Care Team Providers Care Merchandise Collector Name Role Phone DELEONCLAU Moran Unavailable PROBLEMS Type Condition ICD9-CM Code [id number] Code Onset Dates Condition Status SNOMED Code Problem Anxiety associated with depression F41.8 Active 330574721 Problem 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 M05.731 Active 102189064 Problem Chronic pain G89.29 Active 57785050 Problem Acute exacerbation of chronic obstructive pulmonary disease (COPD) J44.1 Active 086397425 Problem Periodontitis K05.30 Active 14300077 Problem OAB (overactive bladder) N32.81 Active 557662215 Problem Rheumatoid arthritis of left wrist without organ or system involvement with positive rheumatoid factor M05.732 Active 100466233 Problem Primary insomnia F51.01 Active 3842409 Problem Rheumatoid arthritis involving multiple sites with positive rheumatoid factor M05.79 Active 447024633 Problem Vitamin D deficiency E55.9 Active 40954494 Problem Gastro-esophageal reflux disease without esophagitis K21.9 Active 387539181 Problem Emphysema, unspecified J43.9 Active 31184292 Problem Hyperlipemia E78.5 Active 87564394 Problem Type 2 diabetes mellitus with diabetic neuropathy, unspecified E11.40 Active 71164294 Problem Hypertension I10 Active 16789350 Problem Allergic rhinitis J30.9 Active 92157276 ALLERGIES No Information SOCIAL HISTORY Never Assessed PLAN OF CARE VITAL SIGNS MEDICATIONS Medication Instructions Dosage Frequency Start Date End Date Duration Status Hydrocodone-Acetaminophen 7.5-325 MG Orally every 6 hours as needed 1 tablet as needed 28 days Active Lyrica 75 MG Orally Twice a day 1 capsule 12h Feb, 28 days Active RESULTS No Results PROCEDURES No Known [...] unspecified Medical History Atherosclerotic heart disease of [place] coronary artery without angina pectoris Medical History [...]
--- OUTSIDE RECORDS SUMMARY | 2017-02-28 11:46 | XMS REPORT ---
Author BRANDIN Wolff Organization [employer] Address Unknown Phone Unavailable Care Team Providers Care Record Changer Tester Name Role Phone BRANDIN HARDWICK CP Unavailable Allergies No Known Allergies Problems Problem Type Condition Code Onset Dates Condition Status Problem Atherosclerotic heart disease of [place] coronary artery 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.10 Active [...] Problem CAD (coronary artery disease) I25.10 Active Assessment 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 Active Problem Gastro-esophageal reflux disease without esophagitis K21.9 Active Problem Hyperlipemia E78.5 Active Problem Migraine without aura, not intractable, with status migrainosus G43.001 Active Medications No Known Medications Procedures Procedure Coding System Code Date CHEST X-RAY CPT-4 96552 July 03, 2015 Results No Known Results Summary Purpose [employer] Submission
--- OUTSIDE RECORDS SUMMARY | 2017-02-28 11:46 | XMS REPORT ---
Author Author PANCHOROBCLAU Organization [facility] [place] Address [address] [place] [address] Care Team Providers Care Magnetic Testing Technician Name Role Phone DELEONCLAU Moran Unavailable PROBLEMS Type Condition ICD9-CM Code HEY26-RK Code Onset Dates Condition Status SNOMED Code Problem Chronic pain G89.29 Active 91943702 Problem Rheumatoid arthritis of left wrist without organ or system involvement with positive rheumatoid factor M05.732 Active 094826783 Problem 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 M05.731 Active 226655724 Problem Neuropathy G62.9 Active 092956583 Problem Acute exacerbation of chronic obstructive pulmonary disease (COPD) J44.1 Active 467072350 Problem Rheumatoid arthritis involving multiple sites with positive rheumatoid factor M05.79 Active 249592936 Problem OAB (overactive bladder) N32.81 Active 037141026 Problem Periodontitis K05.30 Active 90312222 Problem Primary insomnia F51.01 Active 4190129 Problem Vitamin D deficiency E55.9 Active 14116766 Problem Hypertension I10 Active 01472112 Problem Gastro-esophageal reflux disease without esophagitis K21.9 Active 462198050 Problem Emphysema, unspecified J43.9 Active 68188668 Problem Hyperlipemia E78.5 Active 45632407 Problem Allergic rhinitis J30.9 Active 94524666 Problem Type 2 diabetes mellitus with diabetic neuropathy, unspecified E11.40 Active 36481246 Problem Anxiety associated with depression F41.8 Active 019900930 ALLERGIES No Information SOCIAL HISTORY Never Assessed PLAN OF CARE VITAL SIGNS MEDICATIONS Medication Instructions Dosage Frequency Start Date End Date Duration Status Symbicort 160-4.5 MCG/ACT Inhalation Twice a day Needs to make an appointment 2 puffs Aug, 28 days Active Plaquenil 200 mg Orally Once a day 1 tablet with food or milk 24h Jan, 30 days Active Nasonex 50 MCG/ACT Nasally Once a day Needs to set up appointment 2 sprays in each nostril 28 days Active Ventolin HFA 108 (90 Base) MCG/ACT Inhalation every 4 hrs Needs appointment 2 puffs as needed 28 days Active RESULTS No Results PROCEDURES No Known procedures IMMUNIZATIONS No Known Immunizations MEDICAL (GENERAL) HISTORY Type Description Date Medical History COPD Medical History Type 2 Diabetes Medical History HTN Medical History Cardiac stents July 2010 post [place]-stent to LAD Medical History Rheumatoid Arthritis Medical History 04/2016---Echo- 60%//mild hypertrophy at the base of the septum , mild mitral regurg/ mild tricuspid regurg. PAP about 10-15 mmHg Medical History 04/2016------Normal Lexiscan Medical History Elevated white blood cell count, unspecified Medical History Atherosclerotic heart disease of [place] coronary artery without angina pectoris Medical History [...]
--- OUTSIDE RECORDS SUMMARY | 2017-02-28 11:46 | XMS REPORT ---
Author Author DELEONCLAU Organization [facility] Address [address] [place] [address] Care Team Providers Care Security Guard Dispatcher Name Role Phone DELEONCLAU Moran Unavailable PROBLEMS Type Condition ICD9-CM Code [id number] Code Onset Dates Condition Status SNOMED Code Problem Anxiety associated with depression F41.8 Active 533808499 Problem 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 M05.731 Active 907215468 Problem Chronic pain G89.29 Active 36183313 Problem Acute exacerbation of chronic obstructive pulmonary disease (COPD) J44.1 Active 094301996 Problem Periodontitis K05.30 Active 03871220 Problem OAB (overactive bladder) N32.81 Active 537945356 Problem Rheumatoid arthritis of left wrist without organ or system involvement with positive rheumatoid factor M05.732 Active 284423746 Problem Primary insomnia F51.01 Active 2359850 Problem Rheumatoid arthritis involving multiple sites with positive rheumatoid factor M05.79 Active 029823407 Problem Vitamin D deficiency E55.9 Active 92860634 Problem Gastro-esophageal reflux disease without esophagitis K21.9 Active 100854146 Problem Emphysema, unspecified J43.9 Active 80718714 Problem Hyperlipemia E78.5 Active 89328324 Problem Type 2 diabetes mellitus with diabetic neuropathy, unspecified E11.40 Active 52475172 Problem Hypertension I10 Active 74998475 Problem Allergic rhinitis J30.9 Active 10076745 ALLERGIES Unknown Allergies SOCIAL HISTORY No smoking Hx information available PLAN OF CARE VITAL SIGNS MEDICATIONS Medication Instructions Dosage Frequency Start Date End Date Duration Status Protonix 20 mg Orally Once a day 1 tablet 24h 30 days Active RESULTS No Results PROCEDURES No Known procedures IMMUNIZATIONS No Known Immunizations
--- OUTSIDE RECORDS SUMMARY | 2017-02-28 11:46 | XMS REPORT ---
Author Author CLAU DELEON Organization [employer] Address Unknown Phone Unavailable Care Team Providers Care Bander And Cellophaner Helper Machine Name Role Phone CLAU DELEON CP Unavailable Allergies No Known Allergies Problems Problem Type Condition Code Onset Dates Condition Status Problem Neuropathy G62.9 Active Problem Rheumatoid arthritis of left wrist without organ or system involvement with positive rheumatoid factor M05.732 Active Problem Chronic pain G89.29 Active Problem Elevated white blood cell count, unspecified D72.829 Active Problem Hyperlipemia E78.5 Active Problem Pain in left knee M25.562 Active Assessment Type 2 diabetes mellitus with diabetic neuropathy, unspecified E11.40 Active Assessment 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 M05.731 Active Problem Acute non-recurrent frontal sinusitis J01.10 Active Problem Hospital discharge follow-up Z09 Active Problem 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 M05.731 Active Problem Acute non-recurrent maxillary sinusitis J01.00 Active Problem Irritant contact dermatitis due to other agents L24.89 Active Problem Gastro-esophageal reflux disease without esophagitis K21.9 Active Problem Migraine without aura, not intractable, with status migrainosus G43.001 Active Problem Hypertension I10 Active Problem CAD (coronary artery disease) I25.10 Active Problem Type 2 diabetes mellitus with diabetic neuropathy, unspecified E11.40 Active Problem Allergic rhinitis J30.9 Active Problem Atherosclerotic heart disease of [place] coronary artery 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.10 Active Problem Injury of left hand S69.92XA Active Assessment Hyperlipemia E78.5 Active Problem Emphysema, unspecified J43.9 Active Problem Anxiety associated with depression F41.8 Active Medications No Known Medications Procedures Procedure Coding System Code Date GLYCATED HEMOGLOBIN TEST CPT-4 04324 Feb 08, 2016 VENIPUNCT, ROUTINE* CPT-4 44874 Feb 08, 2016 [facility] CPT-4 NOBLL Feb 08, 2016 Results Name Result Date Reference Range Unit Abnormality Flag A1C ----Hemoglobin A1c 6.8 47444697 4.8-5.6 % H CBC ----Basos 1 20160208 % ----MCV 89 10231484 79-97 fL ----Hematocrit 45.0 22660587 34.0-46.6 % ----Eos 2 20160208 % ----MCHC 34.2 67016092 31.5-35.7 g/dL ----Monocytes 6 20160208 % ----MCH 30.3 82489490 26.6-33.0 pg ----Lymphs 29 16579825 % ----Eos (Absolute) 0.3 80735201 0.0-0.4 x10E3/uL ----WBC 12.5 41579280 3.4-10.8 x10E3/uL H ----Monocytes(Absolute) 0.8 86664277 0.1-0.9 x10E3/uL ----Lymphs (Absolute) 3.6 71004511 0.7-3.1 x10E3/uL H ----Hemoglobin 15.4 58211397 11.1-15.9 g/dL ----Neutrophils (Absolute) 7.7 59923893 1.4-7.0 x10E3/uL H ----RBC 5.08 11693792 3.77-5.28 x10E6/uL ----Immature Grans (Abs) 0.1 23409036 0.0-0.1 x10E3/uL ----Immature Granulocytes 1 20160208 % ----Neutrophils 61 15829890 % ----Baso (Absolute) 0.1 43445388 0.0-0.2 x10E3/uL ----RDW 15.0 82270559 12.3-15.4 % ----Platelets 272 50843905 150-379 x10E3/uL ROUTINE VENIPUNCTURE THYROID ANALYZER ----TSH 1.680 78172319 0.450-4.500 uIU/mL LIPID PANEL ----LDL Cholesterol Calc 154 48012554 0-99 mg/dL H ----VLDL Cholesterol Jose 27 08222081 5-40 mg/dL ----HDL Cholesterol 42 79115660 >39 mg/dL ----Triglycerides 136 35047121 0-149 mg/dL ----Cholesterol, Total 223 98279055 100-199 mg/dL H Summary Purpose [employer] Submission
--- OUTSIDE RECORDS SUMMARY | 2017-02-28 11:46 | XMS REPORT ---
Author MARYANA Coley [facility] Address Unknown Phone Unavailable Care Team Providers Care Materials Handling Coordinator Name Role Phone MARYANA ARGUETA CP Unavailable Allergies No Known Allergies Problems Problem Type Condition ICD-9 Code Onset Dates Condition Status Problem COPD (chronic obstructive pulmonary disease) 496 Active Problem Hypertension 401.9 Active Problem Diabetes type 2, uncontrolled 250.02 Active Problem CAD (coronary artery disease) 414.00 Active Problem Migraine 346.90 Active Medications Medication Code System Code Instructions Start Date End Date Status Dosage Omeprazole [facility] [address]-24 10 MG Orally Once a day - Appt needed in Dec.19 capsules Results No Known Results Summary Purpose [employer] Submission
--- OUTSIDE RECORDS SUMMARY | 2017-02-28 11:47 | XMS REPORT ---
Author Author DEELONCLAU Moran Organization [facility] Address [address] [place] [address] Care Team Providers Care Passenger Service Manager Name Role Phone CLAU DELEON Unavailable PROBLEMS Type Condition ICD9-CM Code [id number] Code Onset Dates Condition Status SNOMED Code Problem Anxiety associated with depression F41.8 Active 616460174 Problem 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 M05.731 Active 443484697 Problem Chronic pain G89.29 Active 12616204 Problem Acute exacerbation of chronic obstructive pulmonary disease (COPD) J44.1 Active 034949296 Problem Periodontitis K05.30 Active 14572904 Problem OAB (overactive bladder) N32.81 Active 544864316 Problem Rheumatoid arthritis of left wrist without organ or system involvement with positive rheumatoid factor M05.732 Active 469423573 Problem Primary insomnia F51.01 Active 5874801 Problem Rheumatoid arthritis involving multiple sites with positive rheumatoid factor M05.79 Active 112810008 Problem Vitamin D deficiency E55.9 Active 59600730 Problem Gastro-esophageal reflux disease without esophagitis K21.9 Active 845177222 Problem Emphysema, unspecified J43.9 Active 33072956 Problem Hyperlipemia E78.5 Active 22621437 Problem Type 2 diabetes mellitus with diabetic neuropathy, unspecified E11.40 Active 27910928 Problem Hypertension I10 Active 56992608 Problem Allergic rhinitis J30.9 Active 81571499 ALLERGIES Unknown Allergies SOCIAL HISTORY No smoking Hx information available PLAN OF CARE VITAL SIGNS MEDICATIONS Unknown Medications RESULTS No Results PROCEDURES No Known procedures IMMUNIZATIONS No Known Immunizations
--- OUTSIDE RECORDS SUMMARY | 2017-02-28 11:47 | XMS REPORT ---
Author Author CLAU DELEON Organization [employer] Address Unknown Phone Unavailable Care Team Providers Care Project Engineer Chemicals Name Role Phone CLAU DELEON CP Unavailable [...] E78.5 Active Problem Hypertension I10 Active Assessment Hyperlipemia E78.5 Active Problem Migraine without aura, not intractable, with status migrainosus G43.001 Active Problem Atherosclerotic heart disease of [place] coronary artery 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.10 Active Problem CAD (coronary artery disease) I25.10 Active Problem Emphysema, unspecified J43.9 Active Problem Gastro-esophageal reflux disease without esophagitis K21.9 Active Problem Type 2 diabetes mellitus with diabetic neuropathy, unspecified E11.40 Active Medications Medication Code System Code Instructions Start Date End Date Status Dosage Fenofibrate [facility] [address]-94 54 MG Orally Once a day Nov 13, 2015 1 tablet with a meal Results No Known Results Summary Purpose [employer] Submission
--- OUTSIDE RECORDS SUMMARY | 2017-02-28 11:47 | XMS REPORT ---
Author Author DELEONCLAU Moran Organization [facility] Address [address] [place] [address] Care Team Providers Care Director Sales And Trade Marketing Name Role Phone DELEONCLAU Moran Unavailable PROBLEMS Type Condition ICD9-CM Code IRU11-YR Code Onset Dates Condition Status SNOMED Code Problem Anxiety associated with depression F41.8 Active 471467055 Problem 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 M05.731 Active 666532089 Problem Chronic pain G89.29 Active 47149705 Problem Acute exacerbation of chronic obstructive pulmonary disease (COPD) J44.1 Active 981354681 Problem Periodontitis K05.30 Active 30752039 Problem OAB (overactive bladder) N32.81 Active 262022844 Problem Rheumatoid arthritis of left wrist without organ or system involvement with positive rheumatoid factor M05.732 Active 655681918 Problem Primary insomnia F51.01 Active 6332704 Problem Rheumatoid arthritis involving multiple sites with positive rheumatoid factor M05.79 Active 807509927 Problem Vitamin D deficiency E55.9 Active 83013434 Problem Gastro-esophageal reflux disease without esophagitis K21.9 Active 185284463 Problem Emphysema, unspecified J43.9 Active 88727718 Problem Hyperlipemia E78.5 Active 29751839 Problem Type 2 diabetes mellitus with diabetic neuropathy, unspecified E11.40 Active 96668140 Problem Hypertension I10 Active 94313971 Problem Allergic rhinitis J30.9 Active 12717750 ALLERGIES No Information SOCIAL HISTORY Never Assessed PLAN OF CARE VITAL SIGNS MEDICATIONS Medication Instructions Dosage Frequency Start Date End Date Duration Status Hydrocodone-Acetaminophen 7.5-325 MG Orally every 6 hours as needed 1 tablet as needed 28 days Active RESULTS No Results PROCEDURES No Known procedures IMMUNIZATIONS No Known Immunizations MEDICAL (GENERAL) HISTORY Type Description Date Medical History COPD Medical History Type 2 Diabetes Medical History HTN Medical History Cardiac stents July 2010 post [place]-stent to LAD Medical History Rheumatoid Arthritis Medical History 04/2016---Echo- 60%//mild hypertrophy at the base of the septum , mild mitral regurg/ mild tricuspid regurg. PAP about 10-15 mmHg Medical History 04/2016------Normal Lexiscan Medical History Elevated white blood cell count, unspecified Medical History Atherosclerotic heart disease of [place] coronary artery without angina pectoris Medical History [...]
--- OUTSIDE RECORDS SUMMARY | 2017-02-28 11:47 | XMS REPORT ---
Author BRANDIN Wolff Organization [employer] Address Unknown Phone Unavailable Care Team Providers Care Certified Coatings Inspector Name Role Phone BRANDIN HARDWICK CP Unavailable Allergies No Known Allergies Problems Problem Type Condition Code Onset Dates Condition Status Problem Atherosclerotic heart disease of [place] coronary artery 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.10 Active [...]
--- OUTSIDE RECORDS SUMMARY | 2017-02-28 11:47 | XMS REPORT ---
Author Author DELEONCLAU Moran Organization [facility] [place] Address [address] [place] [address] Care Team Providers Care Floor Runner Name Role Phone DELEONCLAU Moran Unavailable PROBLEMS Type Condition ICD9-CM Code [id number] Code Onset Dates Condition Status SNOMED Code Problem Anxiety associated with depression F41.8 Active 333981424 Problem 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 M05.731 Active 974716995 Problem Chronic pain G89.29 Active 62031878 Problem Acute exacerbation of chronic obstructive pulmonary disease (COPD) J44.1 Active 111179254 Problem Periodontitis K05.30 Active 16190464 Problem OAB (overactive bladder) N32.81 Active 912479524 Problem Rheumatoid arthritis of left wrist without organ or system involvement with positive rheumatoid factor M05.732 Active 276638286 Problem Primary insomnia F51.01 Active 1380147 Problem Rheumatoid arthritis involving multiple sites with positive rheumatoid factor M05.79 Active 397475336 Problem Vitamin D deficiency E55.9 Active 06993097 Problem Gastro-esophageal reflux disease without esophagitis K21.9 Active 989430489 Problem Emphysema, unspecified J43.9 Active 45488152 Problem Hyperlipemia E78.5 Active 35753576 Problem Type 2 diabetes mellitus with diabetic neuropathy, unspecified E11.40 Active 69118898 Problem Hypertension I10 Active 35892625 Problem Allergic rhinitis J30.9 Active 39721265 ALLERGIES No Information SOCIAL HISTORY Never Assessed PLAN OF CARE VITAL SIGNS MEDICATIONS Medication Instructions Dosage Frequency Start Date End Date Duration Status Diclofenac Sodium 1.5 % Transdermal Four times a day 40 drops to affected area 6h May, 62 days Active Lidocaine 5 % Externally 4 times a day 1 application to affected area as needed 6h May, 90 days Active RESULTS No Results PROCEDURES No Known procedures IMMUNIZATIONS No Known Immunizations MEDICAL (GENERAL) HISTORY Type Description Date Medical History COPD Medical History Type 2 Diabetes Medical History HTN Medical History Cardiac stents July 2010 post [place]-stent to LAD Medical History Rheumatoid Arthritis Medical History 04/2016---Echo- 60%//mild hypertrophy at the base of the septum , mild mitral regurg/ mild tricuspid regurg. PAP about 10-15 mmHg Medical History 04/2016------Normal Lexiscan Medical History Elevated white blood cell count, unspecified Medical History Atherosclerotic heart disease of [place] coronary artery without angina pectoris Medical History [...]
--- OUTSIDE RECORDS SUMMARY | 2017-02-28 11:47 | XMS REPORT ---
Author CLAU Sykes Organization [employer] Address Unknown Phone Unavailable Care Team Providers Care Digital Tech Name Role Phone CLAU DELEON CP Unavailable Allergies, Adverse Reactions, Alerts Substance Reaction Event Type Sulfacetamide Sodium unknown Drug Allergy Singulair dizziness Drug Allergy Problems Problem Type Condition Code Onset Dates Condition Status Problem Allergic rhinitis J30.9 Active Problem Anxiety associated with depression F41.8 Active Problem Injury of left hand S69.92XA Active Problem Irritant contact dermatitis due to other agents L24.89 Active Assessment Hypertension I10 Active Problem Hospital discharge follow-up Z09 Active Assessment Chronic pain G89.29 Active Assessment Hyperlipemia E78.5 Active Problem Acute non-recurrent maxillary sinusitis J01.00 Active Problem Chronic pain G89.29 Active Problem Neuropathy G62.9 Active Problem 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 M05.731 Active Problem Rheumatoid arthritis of left wrist without organ or system involvement with positive rheumatoid factor M05.732 Active Problem Hyperlipemia E78.5 Active Problem Hypertension I10 Active Assessment Neuropathy G62.9 Active Assessment Type 2 diabetes mellitus with diabetic neuropathy, unspecified E11.40 Active Problem Migraine without aura, not intractable, with status migrainosus G43.001 Active Problem Atherosclerotic heart disease of [place] coronary artery 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.10 Active Problem CAD (coronary artery disease) I25.10 Active Problem Emphysema, unspecified J43.9 Active Problem Gastro-esophageal reflux disease without esophagitis K21.9 Active Problem Type 2 diabetes mellitus with diabetic neuropathy, unspecified E11.40 Active Medications Medication Code System Code Instructions Start Date End Date Status Dosage Lyrica [facility] [address]-28 75 MG Orally Twice a day Nov 05, 2015 1 capsule Ventolin HFA [facility] [address]-99 108 (90 Base) MCG/ACT Inhalation every 4 hrs 2 puffs as needed Metformin HCl [facility] [address]-84 1000 MG Orally Twice a day with meals Jan 27, 2015 1 tablet with meals Folic Acid [facility] 64418077178 1 MG Orally Once a day 1 tablet Blood Glucose Test ND 0 Test Strips In Vitro 4 times a day June 22, 2015 test blood sugar Metoprolol Tartrate [facility] [address]-57 25 MG Orally Twice a day 1 tablet Protonix [facility] [address]-73 20 mg Orally Once a day 1 tablet Quad Cane [facility] 8225-089322 June 18, 2015 as directed Hydrocodone-Acetaminophen [facility] [address]-41 5-325 MG Orally 3 times a day 1 tablet as needed Citalopram Hydrobromide [facility] [address]-48 40 MG Orally Once a day 1 tablet Fish Oil [facility] 23118-44715 1200 MG Orally Once a day 1 capsule Oxygen ND 0 not defined Aspirin Adult Low Strength [facility] [address]-97 81 MG Orally Once a day 1 tablet Symbicort [facility] [address]-09 160-4.5 MCG/ACT Inhalation Twice a day 2 puffs Mucinex [facility] [address]-62 600 MG Orally every 12 hrs Mar 24, 2015 1 tablet as needed Pravastatin Sodium [facility] [address]-32 40 MG Orally Once a day October 16, 2014 1 tablet Victoza [facility] [address]-03 18 MG/3ML Subcutaneous Once a day July 02, 2015 1.8mg Albuterol Sulfate [facility] [address]-61 (2.5 MG/3ML) 0.083% Inhalation Three times a day 3 ml Baclofen [facility] 09441164747 10 mg Orally Three times a day 1 tablet with food or milk Lisinopril [facility] [address]-73 20 MG Orally Once a day 1 tablet Easy Touch Pen [place] [facility] 8496-713098 32G X 4 MM sq 4 times a day September as directed Methotrexate [facility] 47553614788 2.5 MG TAKE EIGHT TABLETS BY MOUTH ONCE WEEKLY Aleve [facility] [address]-33 220 MG Orally every 12 hrs 1 tablet Nystatin-Triamcinolone [facility] [address]-36 353967-2.1 UNIT/GM Externally Twice a day August 04, 2015 apply thin layer to irritated abdominal areas Blood Glucose Monitor System [facility] 03[address]19 w/Device July 31, 2015 as directed Nasonex [facility] [address]-92 50 MCG/ACT Nasally Once a day 2 sprays in each nostril Cetirizine HCl [facility] 62428224654 10 Orally Once a day TAKE 1 TABLET BY MOUTH DAILY Procedures Procedure Coding System Code Date [facility] C[facility] NOBLL Nov 05, 2015 Office Visit, Est Pt., Level 4 CPT-4 11359 Nov 05, 2015 GLYCATED HEMOGLOBIN TEST CPT-4 23557 Nov 05, 2015 VENIPUNCT, ROUTINE* CPT-4 96665 Nov 05, 2015 Vital Signs Date/Time: Nov 05, 2015 Cardiac Monitoring Heart Rate 86 bpm Weight 182.0 lbs Height 66 in BMI 29.37 Index Blood Pressure Diastolic 68 mmHg Blood Pressure Systolic 118 mmHg Results No Known Results Summary Purpose [employer] Submission
--- OUTSIDE RECORDS SUMMARY | 2017-02-28 11:47 | XMS REPORT ---
Author Author PANCHO CLAU Organization [facility] Address [address] [place] [address] Care Team Providers Care Special Class Welder Name Role Phone DELEONROB MoranELE Unavailable PROBLEMS Type Condition ICD9-CM Code [id number] Code Onset Dates Condition Status SNOMED Code Problem Chronic pain G89.29 Active 18059715 Problem Rheumatoid arthritis of left wrist without organ or system involvement with positive rheumatoid factor M05.732 Active 593235578 Problem 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 M05.731 Active 980376564 Problem Neuropathy G62.9 Active 219417242 Problem Dependence on nocturnal oxygen therapy Z99.81 Active 47290712916181 Problem Rheumatoid arthritis involving multiple sites with positive rheumatoid factor M05.79 Active 633534592 Problem OAB (overactive bladder) N32.81 Active 608280381 Problem Periodontitis K05.30 Active 80624129 Problem Primary insomnia F51.01 Active 4739910 Problem Vitamin D deficiency E55.9 Active 33100232 Problem Hypertension I10 Active 82170573 Problem Gastro-esophageal reflux disease without esophagitis K21.9 Active 544706818 Problem Emphysema, unspecified J43.9 Active 53941745 Problem Hyperlipemia E78.5 Active 03591919 Problem Allergic rhinitis J30.9 Active 70064280 Problem Type 2 diabetes mellitus with diabetic neuropathy, unspecified E11.40 Active 15569642 Problem Anxiety associated with depression F41.8 Active 720469682 ALLERGIES No Information SOCIAL HISTORY Never Assessed PLAN OF CARE VITAL SIGNS MEDICATIONS Medication Instructions Dosage Frequency Start Date End Date Duration Status Ventolin HFA 108 (90 Base) MCG/ACT Inhalation every 4 hrs Needs appointment 2 puffs as needed 28 days Active RESULTS No Results PROCEDURES No Known procedures IMMUNIZATIONS No Known Immunizations MEDICAL (GENERAL) HISTORY Type Description Date Medical History COPD Medical History Type 2 Diabetes Medical History HTN Medical History Cardiac stents July 2010 post [place]-stent to LAD Medical History Rheumatoid Arthritis Medical History 04/2016---Echo- 60%//mild hypertrophy at the base of the septum , mild mitral regurg/ mild tricuspid regurg. PAP about 10-15 mmHg Medical History 04/2016------Normal Lexiscan Medical History Elevated white blood cell count, unspecified Medical History Atherosclerotic heart disease of [place] coronary artery without angina pectoris Medical History [...]
--- OUTSIDE RECORDS SUMMARY | 2017-02-28 11:47 | XMS REPORT ---
Author Author MAU CHING [facility] [place] [employer] Address Unknown Phone Unavailable Care Team Providers Care Army Senior Officer Name Role Phone MAU CHING CP Unavailable Allergies, Adverse Reactions, Alerts Substance Reaction Event Type Sulfacetamide Sodium unknown Drug Allergy Singulair dizziness Drug Allergy Problems Problem Type Condition Code Onset Dates Condition Status Problem Hyperlipemia E78.5 Active Problem CAD (coronary artery disease) I25.10 Active Problem Hypertension I10 Active Assessment Acute diarrhea R19.7 Active Assessment Acute nasopharyngitis [common cold] J00 Active Problem Type 2 diabetes mellitus with diabetic neuropathy, unspecified E11.40 Active Problem Emphysema, unspecified J43.9 Active Problem Allergic rhinitis J30.9 Active Problem Migraine without aura, not intractable, with status migrainosus G43.001 Active Problem Gastro-esophageal reflux disease without esophagitis K21.9 Active Problem Essential (primary) hypertension I10 Active Problem Atherosclerotic heart disease of [place] coronary artery 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.10 Active Medications Medication Code System Code Instructions Start Date End Date Status Dosage Lantus [facility] [address]-61 100 UNIT/ML Subcutaneous at night 60 units Diabetic Vitamin Capsule ND 0 Resveratrol 175 mg/Alpha Lipoic Acid 50 mg/ CoQ10 50 mg/Methylcobalamin 0.5 mg/Tyvxaovxn-8-Wvksvvfer 25 mg/Methionine 12.5 mg/Inositol 25 mg/Choline Bitartrate 25 mg Orally twice a day Dec 23, 2014 2 capsules Metformin HCl [facility] [address]-31 1000 MG Orally Twice a day Jan 27, 2015 1 tablet with meals Hydrocodone-Acetaminophen [facility] [address]-19 5-325 MG Orally every 6 hrs as needed for pain 1 tablet as needed Aspirin Adult Low Strength [facility] [address]-37 81 MG Orally Once a day 1 tablet Acidophilus [facility] [address]102-12852 100 MG Orally 2 times a day prn diarrhea FebApr 07, 2015 1 capsule Oxygen NDC 0 not defined Baclofen [facility] [address]-22 10 MG Orally Three times a day Dec 25, 2014 1 tablet with food or milk NovoLog Flexpen [facility] [address]-24 100 UNIT/ML Subcutaneous 3 times a day 20 units with meals DeVilbiss Nebulizer [facility] 29[address]-88134 not defined Fish Oil [facility] [address]892 1200 MG Orally Once a day 1 capsule Metoprolol Tartrate [facility] [address]-20 25 MG Orally Twice a day 1 tablet Cetirizine HCl [facility] 12783664606 10 TAKE 1 TABLET BY MOUTH DAILY Easy Touch Pen [place] [facility] 8496-716675 32G X 4 MM sq 4 times a day September as directed Pravastatin Sodium [facility] [address]-89 20 MG Orally Once a day- PT REPLACE CRESTOR October 16, 2014 1 tablet Aleve [facility] [address]-96 220 MG Orally not defined Protonix [facility] [address]-56 20 MG Orally Once a day Dec 25, 2014 1 tablet Gabapentin [facility] [address]-72 300 MG Orally Three times a day Dec 25, 2014 1 capsule at morning and lunch, 2 tabs at hs Lisinopril [facility] [address]-13 20 MG Orally Once a day 1 tablet Albuterol Sulfate [facility] [address]-46 (2.5 MG/3ML) 0.083% Inhalation Three times a day 3 ml Citalopram Hydrobromide [facility] [address]-93 20 MG Orally Once a day 1 tablet Symbicort [facility] [address]-34 160-4.5 MCG/ACT Inhalation Twice a day 2 puffs Metformin HCl [facility] [address]-83 1000 MG Orally Twice a day 1 tablet with meals Nasonex [facility] [address]-95 50 MCG/ACT Nasally Once a day 2 sprays in each nostril Ventolin HFA [facility] [address]-89 108 (90 Base) MCG/ACT Inhalation every 4 hrs 2 puffs as needed Procedures Procedure Coding System Code Date Office Visit, Est Pt., Level 3 CPT-4 30054 Mar 08, 2015 Vital Signs Date/Time: Mar 08, 2015 Temperature 96.9 F Weight 200.2 lbs Height 5'6 in BMI 39.09 Index Blood Pressure Diastolic 74 mmHg Blood Pressure Systolic 120 mmHg Cardiac Monitoring Heart Rate 72 bpm Results No Known Results Summary Purpose [employer] Submission
--- OUTSIDE RECORDS SUMMARY | 2017-02-28 11:47 | XMS REPORT ---
Author Author CLAU DELEON Organization [employer] Address Unknown Phone Unavailable Care Team Providers Care Bill Of Materials Clerk Name Role Phone CLAU DELEON CP Unavailable [...] Problem Pain in left knee M25.562 Active Problem Acute non-recurrent frontal sinusitis J01.10 [...] J30.9 Active Problem Atherosclerotic heart disease of [place] coronary artery 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.10 Active Problem Injury of left hand S69.92XA Active Problem Emphysema, unspecified J43.9 Active Problem Anxiety associated with depression F41.8 Active Medications No Known Medications Results No Known Results Summary Purpose [employer] Submission
--- OUTSIDE RECORDS SUMMARY | 2017-02-28 11:48 | XMS REPORT ---
Author Author CLAU DELEON Organization [employer] Address Unknown Phone Unavailable Care Team Providers Care Nuclear Medical Tech Name Role Phone CLAU DELEON CP [...] I10 Active Problem Atherosclerotic heart disease of [place] coronary artery 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.10 Active Assessment Other viral agents as the cause of diseases classified elsewhere B97.89 Active Assessment URI (upper respiratory infection) J06.9 Active Assessment Allergic rhinitis J30.9 Active Medications Medication Code System Code Instructions Start Date End Date Status Dosage Nasonex [facility] [address]-90 50 MCG/ACT Nasally Once a day 2 sprays in each nostril Albuterol Sulfate [facility] [address]-68 (2.5 MG/3ML) 0.083% Inhalation Three times a day 3 ml Mucinex [facility] [address]-00 600 MG Orally every 12 hrs Mar 24, 2015 1 tablet as needed Diabetic Vitamin Capsule ND 0 Resveratrol 175 mg/Alpha Lipoic Acid 50 mg/ CoQ10 50 mg/Methylcobalamin 0.5 mg/Ovflxtjdh-6-Xskplehgt 25 mg/Methionine 12.5 mg/Inositol 25 mg/Choline Bitartrate 25 mg Orally twice a day Dec 23, 2014 2 capsules Metformin HCl [facility] [address]-40 1000 MG Orally Twice a day Jan 27, 2015 1 tablet with meals Hydrocodone-Acetaminophen [facility] [address]-49 5-325 MG Orally every 6 hrs as needed for pain 1 tablet as needed Lisinopril [facility] [address]-19 20 MG Orally Once a day 1 tablet Baclofen [facility] [address]-30 10 MG Orally Three times a day Dec 25, 2014 1 tablet with food or milk Aspirin Adult Low Strength [facility] [address]-85 81 MG Orally Once a day 1 tablet Fish Oil [facility] 67[address]228 1200 MG Orally Once a day 1 capsule Oxygen ND 0 not defined NovoLog Flexpen [facility] [address]-14 100 UNIT/ML Subcutaneous 3 times a day 20 units with meals Citalopram Hydrobromide [facility] [address]-56 20 MG Orally Once a day 1 tablet DeVilbiss Nebulizer [facility] 78930-[address]82 not defined Pravastatin Sodium [facility] [address]-94 20 MG Orally Once a day- PT REPLACE CRESTOR October 16, 2014 1 tablet Gabapentin [facility] [address]-95 300 MG Orally Three times a day Dec 25, 2014 1 capsule at morning and lunch, 2 tabs at hs Acidophilus [facility] 52703-[address]59 100 MG Orally 2 times a day prn diarrhea FebApr 07, 2015 1 capsule Easy Touch Pen [place] [facility] 8496-317896 32G X 4 MM sq 4 times a day September as directed Lantus [facility] [address]-83 100 UNIT/ML Subcutaneous at night 60 units Symbicort [facility] [address]-61 160-4.5 MCG/ACT Inhalation Twice a day 2 puffs Ventolin HFA [facility] [address]-22 108 (90 Base) MCG/ACT Inhalation every 4 hrs 2 puffs as needed Protonix [facility] [address]-26 20 MG Orally Once a day Dec 25, 2014 1 tablet Cetirizine HCl [facility] 34783172938 10 TAKE 1 TABLET BY MOUTH DAILY Metoprolol Tartrate [facility] [address]-51 25 MG Orally Twice a day 1 tablet Metformin HCl [facility] [address]-40 1000 MG Orally Twice a day 1 tablet with meals Aleve [facility] [address]-10 220 MG Orally not defined Procedures Procedure Coding System Code Date Office Visit, Est Pt., Level 3 CPT-4 72297 Mar 24, 2015 Vital Signs Date/Time: Mar 24, 2015 Temperature 97.9 F Weight 195.8 lbs Height 5'6 in BMI 38.24 Index Blood Pressure Diastolic 70 mmHg Blood Pressure Systolic 108 mmHg Cardiac Monitoring Heart Rate 78 bpm Results No Known Results Summary Purpose [employer] Submission
--- OUTSIDE RECORDS SUMMARY | 2017-02-28 11:48 | XMS REPORT ---
Author Author CLAU DELEON Organization [employer] Address Unknown Phone Unavailable Care Team Providers Care Clutch Assembler Name Role Phone CLAU DELEON CP Unavailable [...] G43.001 Active Problem Atherosclerotic heart disease of [place] coronary artery 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.10 Active Problem CAD (coronary artery disease) I25.10 Active Problem Emphysema, unspecified J43.9 Active Problem Gastro-esophageal reflux disease without esophagitis K21.9 Active Problem Type 2 diabetes mellitus with diabetic neuropathy, unspecified E11.40 Active Medications No Known Medications Results No Known Results Summary Purpose [employer] Submission
--- OUTSIDE RECORDS SUMMARY | 2017-02-28 11:48 | XMS REPORT ---
Author BRANDIN Arreguin [facility] eClinicalWorks Address Unknown Phone Unavailable Care Team Providers Care Stock Control Clerk Name Role Phone BRANDIN REYES CP Unavailable Allergies, Adverse Reactions, Alerts Substance [...] E78.5 Active Problem Hypertension I10 Active Assessment Rheumatoid arthritis of left wrist without organ or system involvement with positive rheumatoid factor M05.732 Active Assessment Emphysema, unspecified J43.9 Active Problem Migraine without aura, not intractable, with status migrainosus G43.001 Active Problem Atherosclerotic heart disease of [place] coronary artery 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.10 Active Problem CAD (coronary artery disease) I25.10 Active Problem Emphysema, unspecified J43.9 Active Problem Gastro-esophageal reflux disease without esophagitis K21.9 Active Problem Type 2 diabetes mellitus with diabetic neuropathy, unspecified E11.40 Active Medications Medication Code System Code Instructions Start Date End Date Status Dosage Quad Cane [facility] [id number] June 18, 2015 as directed Ventolin HFA [facility] [address]-16 108 (90 Base) MCG/ACT Inhalation every 4 hrs 2 puffs as needed Baclofen [facility] 71858859706 10 mg Orally Three times a day 1 tablet with food or milk Pravastatin Sodium [facility] [address]-83 20 mg Orally Once a day October 16, 2014 1 tablet Albuterol Sulfate [facility] [address]-64 (2.5 MG/3ML) 0.083% Inhalation Three times a day 3 ml Nystatin-Triamcinolone [facility] [address]-03 758951-5.1 UNIT/GM Externally Twice a day August 04, 2015 apply thin layer to irritated abdominal areas Lantus [facility] [address]-00 100 UNIT/ML Subcutaneous at night 60 units Mucinex [facility] [address]-48 600 MG Orally every 12 hrs Mar 24, 2015 1 tablet as needed Hydrocodone-Acetaminophen [facility] [address]-40 5-325 MG Orally 3 times a day 1 tablet as needed Citalopram Hydrobromide [facility] [address]-13 40 MG Orally Once a day 1 tablet Blood Glucose Monitor System [facility] 98[address] w/Device July 31, 2015 as directed Blood Glucose Test [facility] 0 Test Strips In Vitro 4 times a day June 22, 2015 test blood sugar Protonix [facility] [address]-22 20 mg Orally Once a day 1 tablet Aspirin Adult Low Strength [facility] [address]-20 81 MG Orally Once a day 1 tablet Nasonex [facility] [address]-04 50 MCG/ACT Nasally Once a day 2 sprays in each nostril Cetirizine HCl [facility] 75112337597 10 Orally Once a day TAKE 1 TABLET BY MOUTH DAILY Methotrexate [facility] 01806797041 2.5 MG TAKE EIGHT TABLETS BY MOUTH ONCE WEEKLY Metoprolol Tartrate [facility] [address]-16 25 MG Orally Twice a day 1 tablet Folic Acid [facility] 48673583088 1 MG Orally Once a day 1 tablet Metformin HCl [facility] [address]-99 1000 MG Orally Twice a day with meals Jan 27, 2015 1 tablet with meals Lisinopril [facility] [address]-16 20 MG Orally Once a day 1 tablet Easy Touch Pen [place] [facility] 8496-832465 32G X 4 MM sq 4 times a day September as directed Aleve [facility] [address]-24 220 MG Orally every 12 hrs 1 tablet Victoza [facility] [address]-65 18 MG/3ML Subcutaneous Once a day July 02, 2015 1.8mg NovoLog Flexpen [facility] [address]-59 100 UNIT/ML Subcutaneous 3 times a day 20 units with meals Oxygen NDC 0 not defined Fish Oil [facility] 61829-[address]662 1200 MG Orally Once a day 1 capsule Symbicort [facility] [address]-70 160-4.5 MCG/ACT Inhalation Twice a day 2 puffs Procedures Procedure Coding System Code Date Office Visit, Est Pt., Level 4 CPT-4 54725 Oct 27, 2015 VENIPUNCT, ROUTINE* CPT-4 52058 Oct 27, 2015 LAB [facility] CPT-4 NOBLL Oct 27, 2015 Vital Signs Date/Time: Oct 27, 2015 Cardiac Monitoring Heart Rate 92 bpm Weight 184.7 lbs Height 66 in BMI 29.81 Index Blood Pressure Diastolic 63 mmHg Blood Pressure Systolic 112 mmHg Results No Known Results Summary Purpose eClinicalWorks Submission
--- OUTSIDE RECORDS SUMMARY | 2017-02-28 11:48 | XMS REPORT ---
Author SHERITA Howard [facility] eClinicalWorks Address Unknown Phone Unavailable Care Team Providers Care Weed Cooking Operator Name Role Phone SHERITA PATTERSON Unavailable Allergies No Known Allergies Problems Problem Type Condition Code Onset Dates Condition Status Problem Type 2 diabetes mellitus with diabetic neuropathy, unspecified E11.40 Active Problem Injury of left hand S69.92XA Active Problem Allergic rhinitis J30.9 Active Problem Hospital discharge follow-up Z09 Active Problem 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 M05.731 Active Problem Irritant contact dermatitis due to other agents L24.89 Active Problem Neuropathy G62.9 Active Problem Anxiety associated with depression F41.8 Active Problem Rheumatoid arthritis of left wrist without organ or system involvement with positive rheumatoid factor M05.732 Active Problem Chronic pain G89.29 Active Assessment Closed nondisplaced fracture of scaphoid of left wrist, unspecified portion of scaphoid, initial encounter S62.002A Active Problem Hyperlipemia E78.5 Active Problem Gastro-esophageal reflux disease without esophagitis K21.9 Active Problem Migraine without aura, not intractable, with status migrainosus G43.001 Active Problem Hypertension I10 Active Problem Atherosclerotic heart disease of [place] coronary artery 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.10 Active Problem CAD (coronary artery disease) I25.10 Active Problem Emphysema, unspecified J43.9 Active Medications No Known Medications Procedures Procedure Coding System Code Date Office Visit, Est Pt., Level 3 CPT-4 04713 September 17, 2015 X-RAY EXAM OF WRIST CPT-4 35121 September 17, 2015 Vital Signs Date/Time: September 17, 2015 Blood Pressure Diastolic 58 mmHg Blood Pressure Systolic 116 mmHg Height 66 in Results No Known Results Summary Purpose eClinicalWorks Submission
--- OUTSIDE RECORDS SUMMARY | 2017-02-28 11:48 | XMS REPORT ---
Author Author DELEONCLAU Moran Organization [facility] Address [address] [place] [address] Care Team Providers Care Lens Edger Name Role Phone CLAU DELEON Unavailable PROBLEMS Type Condition ICD9-CM Code [id number] Code Onset Dates Condition Status SNOMED Code Problem Anxiety associated with depression F41.8 Active 129639549 Problem Rheumatoid arthritis of left wrist without organ or system involvement with positive rheumatoid factor M05.732 Active 891160577 Problem Chronic pain G89.29 Active 23654211 Problem Acute exacerbation of chronic obstructive pulmonary disease (COPD) J44.1 Active 371390319 Problem Periodontitis K05.30 Active 14874466 Problem OAB (overactive bladder) N32.81 Active 115850259 Problem 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 M05.731 Active 867367890 Problem Primary insomnia F51.01 Active 8315192 Problem Rheumatoid arthritis involving multiple sites with positive rheumatoid factor M05.79 Active 157327209 Problem Vitamin D deficiency E55.9 Active 42475616 Problem Gastro-esophageal reflux disease without esophagitis K21.9 Active 726572072 Problem Emphysema, unspecified J43.9 Active 73877217 Problem Hyperlipemia E78.5 Active 93797986 Problem Type 2 diabetes mellitus with diabetic neuropathy, unspecified E11.40 Active 57230575 Problem Hypertension I10 Active 55543914 Problem Allergic rhinitis J30.9 Active 96599355 ALLERGIES No Known Allergies SOCIAL HISTORY No smoking Hx information available PLAN OF CARE VITAL SIGNS MEDICATIONS Medication Instructions Dosage Frequency Start Date End Date Duration Status Gemfibrozil 600 MG Orally Twice a day 1 tablet 12h Feb, 30 day( s) Active Cholecalciferol 14547 UNIT Orally once weekly 1 capsule Feb, May, 90 days Active RESULTS No Results PROCEDURES No Known procedures IMMUNIZATIONS No Known Immunizations
--- OUTSIDE RECORDS SUMMARY | 2017-02-28 11:48 | XMS REPORT ---
Author Author CLAU DELEON Organization [employer] Address Unknown Phone Unavailable Care Team Providers Care Multimedia Services Coordinator Name Role Phone CLAU DELEON CP Unavailable Allergies No Known Allergies Problems Problem Type Condition Code Onset Dates Condition Status Problem Atherosclerotic heart disease of [place] coronary artery 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.10 Active [...] intractable, with status migrainosus G43.001 Active Medications Medication Code System Code Instructions Start Date End Date Status Dosage Baclofen [facility] [address]-68 10 mg Orally Three times a day Dec 25, 2014 1 tablet with food or milk Hydrocodone-Acetaminophen [facility] [address]-95 5-325 MG Orally 3 times a day 1 tablet as needed Results No Known Results Summary Purpose eClinicalWorks Submission
--- OUTSIDE RECORDS SUMMARY | 2017-02-28 11:48 | XMS REPORT ---
Author Author SANJIV CHICAS [facility] Address [address] [place] [address] Care Team Providers Care Wax Pourer Name Role Phone SANJIV CHICAS Unavailable PROBLEMS Type Condition ICD9-CM Code [id number] Code Onset Dates Condition Status SNOMED Code Problem Neuropathy G62.9 Active 869747982 Problem Rheumatoid arthritis of left wrist without organ or system involvement with positive rheumatoid factor M05.732 Active 940966672 Problem Chronic pain G89.29 Active 15901645 Problem Elevated white blood cell count, unspecified D72.829 Active 015725264 Problem Hyperlipemia E78.5 Active 90761646 Problem Pain in left knee M25.562 Active 97292572 Problem Hospital discharge follow-up Z09 Active 855032621 Problem 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 M05.731 Active 600495683 Problem Acute non-recurrent maxillary sinusitis J01.00 Active 92549559 Problem Irritant contact dermatitis due to other agents L24.89 Active 887058958 Problem Gastro-esophageal reflux disease without esophagitis K21.9 Active 022945978 Problem Migraine without aura, not intractable, with status migrainosus G43.001 Active 13035033 Problem Hypertension I10 Active 21769806 Problem CAD (coronary artery disease) I25.10 Active 18237460 Problem Type 2 diabetes mellitus with diabetic neuropathy, unspecified E11.40 Active 38864619 Problem Allergic rhinitis J30.9 Active 99562205 Problem Atherosclerotic heart disease of [place] coronary artery 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.10 Active 008025600 Problem Injury of left hand S69.92XA Active 779895531 Problem Emphysema, unspecified J43.9 Active 36940920 Problem Anxiety associated with depression F41.8 Active 191172341 ALLERGIES Unknown Allergies SOCIAL HISTORY No smoking Hx information available PLAN OF CARE VITAL SIGNS MEDICATIONS Medication Instructions Dosage Frequency Start Date End Date Duration Status Hydrocodone-Acetaminophen 5-325 MG Orally 3 times a day 1 tablet as needed 8h Active RESULTS No Results PROCEDURES No Known procedures IMMUNIZATIONS No Known Immunizations
--- OUTSIDE RECORDS SUMMARY | 2017-02-28 11:48 | XMS REPORT ---
Author MARYANA Coley Organization [employer] Address Unknown Phone Unavailable Care Team Providers Care Sourcing Specialist Name Role Phone MARYANA ARGUETA CP Unavailable Allergies No Known Allergies Problems Problem Type Condition Code Onset Dates Condition Status Problem COPD (chronic obstructive pulmonary disease) 496 Active Problem Hypertension 401.9 Active Problem Diabetes type 2, uncontrolled 250.02 Active Problem CAD (coronary artery disease) 414.00 Active Problem Migraine 346.90 Active Medications Medication Code System Code Instructions Start Date End Date Status Dosage Diabetic Vitamin Capsule NDC 0 Resveratrol 175 mg/Alpha Lipoic Acid 50 mg/ CoQ10 50 mg/Methylcobalamin 0.5 mg/Yadxftyfx-5-Ogdaifdbv 25 mg/Methionine 12.5 mg/Inositol 25 mg/Choline Bitartrate 25 mg Orally twice a day Dec 23, 2014 2 capsules Diabetic Topical Pain Cream NDC 0 Flurbiprofen [facility] 20%, Baclofen [facility] 4%, Cyclobenzaprine HCL 2%, Gabapentin 10%, Lidocaine HCL 5% Topically to the focal site of pain 3-4 times per day Dec 23, 2014 Apply 1 to 2 pumps Results No Known Results Summary Purpose eClinicalWorks Submission
--- OUTSIDE RECORDS SUMMARY | 2017-02-28 11:48 | XMS REPORT ---
Author Author EPHRAIM OROZCO [facility] Address [address] [place] [address] Care Team Providers Care Grievance And Appeals Specialist Name Role Phone EPHRAIM OROZCO Unavailable PROBLEMS Type Condition ICD9-CM Code [id number] Code Onset Dates Condition Status SNOMED Code Problem Anxiety associated with depression F41.8 Active 202303395 Problem 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 M05.731 Active 121119510 Problem Chronic pain G89.29 Active 74476857 Problem Acute exacerbation of chronic obstructive pulmonary disease (COPD) J44.1 Active 682276757 Problem Periodontitis K05.30 Active 99975121 Problem OAB (overactive bladder) N32.81 Active 737718782 Problem Rheumatoid arthritis of left wrist without organ or system involvement with positive rheumatoid factor M05.732 Active 623518175 Problem Primary insomnia F51.01 Active 5894959 Problem Rheumatoid arthritis involving multiple sites with positive rheumatoid factor M05.79 Active 973493511 Problem Vitamin D deficiency E55.9 Active 12555613 Problem Gastro-esophageal reflux disease without esophagitis K21.9 Active 154501566 Problem Emphysema, unspecified J43.9 Active 17646653 Problem Hyperlipemia E78.5 Active 16975605 Problem Type 2 diabetes mellitus with diabetic neuropathy, unspecified E11.40 Active 02926293 Problem Hypertension I10 Active 33639771 Problem Allergic rhinitis J30.9 Active 05892769 ALLERGIES Substance Reaction Event Type Date Status Sulfacetamide Sodium unknown Drug Allergy Feb, Active Singulair dizziness Drug Allergy Feb, Active SOCIAL HISTORY Never Assessed PLAN OF CARE VITAL SIGNS Height 66 in 2016-03-06 Weight 193.2 lbs 2016-03-06 Temperature 97.3 degrees Fahrenheit 2016-03-06 Heart Rate 86 bpm 2016-03-06 Respiratory Rate 20 2016-03-06 BMI 31.18 kg/m2 2016-03-06 Blood pressure systolic 118 mmHg 2016-03-06 Blood pressure diastolic 62 mmHg 2016-03-06 MEDICATIONS Medication Instructions Dosage Frequency Start Date End Date Duration Status Oxygen Active Lisinopril 20 mg Orally Once a day 1 tablet 24h 90 days Active Hydrocodone-Acetaminophen 5-325 MG Orally 3 times a day 1 tablet as needed 8h Active Albuterol Sulfate (2.5 MG/3ML) 0.083% Inhalation Three times a day 3 ml 8h Active Fenofibrate 54 MG Orally Once a day 1 tablet with a meal 24h Oct, 90 days Active Mucinex 600 MG Orally every 12 hrs 1 tablet as needed 12h Mar, Active Nystatin-Triamcinolone 449556-5.1 UNIT/GM Externally Twice a day apply thin layer to irritated abdominal areas 12h July, Active Cetirizine HCl 10 Orally Once a day TAKE 1 TABLET BY MOUTH DAILY 24h Active Blood Glucose Monitor System w/Device as directed July, Active Ventolin HFA 108 (90 Base) MCG/ACT Inhalation every 4 hrs 2 puffs as needed 4h Active Blood Glucose Test Test Strips In Vitro 4 times a day test blood sugar 6h Jun, Active Easy Touch Pen [place] 32G X 4 MM sq 4 times a day as directed 6h Sep, Active Doxycycline Hyclate 100 MG Orally every 12 hrs 1 capsule 12h Feb, Feb, 10 days Active Victoza 18 MG/3ML Subcutaneous Once a day 1.8mg 24h Active Aspirin Adult Low Strength 81 MG Orally Once a day 1 tablet 24h Active Symbicort 160-4.5 MCG/ACT Inhalation Twice a day 2 puffs 12h Active Metformin HCl 1000 MG Orally Twice a day with meals 1 tablet with meals Jan, Active Quad Cane as directed May, Active Lyrica 25 MG Orally 2 times a day 1 capsules 12h Jan, Active Lyrica 50 MG Orally Twice a day 1 capsule 12h 18 Oct, 2015 Active Metoprolol Tartrate 25 MG Orally Twice a day 1 tablet 12h Active Folic Acid 1 MG Orally Once a day 1 tablet 24h 90 Active Nasonex 50 MCG/ACT Nasally Once a day 2 sprays in each nostril 24h Active Plaquenil 200 mg Orally Once a day 1 tablet with food or milk 24h Jan, July, 90 days Active Protonix 20 mg Orally Once a day 1 tablet 24h Active Citalopram Hydrobromide 40 MG Orally Once a day 1 tablet 24h Active Baclofen 10 mg Orally Three times a day 1 tablet with food or milk 8h 90 Active Methotrexate 2.5 MG TAKE EIGHT TABLETS BY MOUTH ONCE WEEKLY 28 Active Aleve 220 MG Orally every 12 hrs 1 tablet 12h Active Fish Oil 1200 MG Orally Once a day 1 capsule 24h Active RESULTS Name Result Date Reference Range INFLUENZA A & B (IN HOUSE) 2016-03-06 INFLUENZA A NEGATIVE INFLUENZA B NEGATIVE Control + Lot # [id number] Exp date 2017-03-30 PROCEDURES Procedure Date Ordered Result Body Site SOLUMEDROL (UP TO 125 MG) Mar 06, 2016 INFLUENZA ASSAY W/OPTIC Mar 06, 2016 THER/PROPH/DIAG INJ, SC/IM Mar 06, 2016 IMMUNIZATIONS Vaccine Route Administration Date Status SOLUMEDROL (UP TO 125 MG) IM Intramuscular Mar 06, 2016 Administered MEDICAL (GENERAL) HISTORY Type Description Date Medical History COPD Medical History Type 2 Diabetes Medical History HTN Medical History Cardiac stents July 2010 post ND-stent to LAD Medical History Rheumatoid Arthritis Medical History 04/2016---Echo- 60%//mild hypertrophy at the base of the septum , mild mitral regurg/ mild tricuspid regurg. PAP about 10-15 mmHg Medical History 04/2016------Normal Lexiscan Medical History Elevated white blood cell count, unspecified Medical History Atherosclerotic heart disease of [place] coronary artery without angina pectoris Medical History [...]
--- OUTSIDE RECORDS SUMMARY | 2017-02-28 11:49 | XMS REPORT ---
Author Author DELEONCLAU Moran Organization [facility] Address [address] [place] [address] Care Team Providers Care Music Intern Name Role Phone CLAU DELEON Unavailable PROBLEMS Type Condition ICD9-CM Code [id number] Code Onset Dates Condition Status SNOMED Code Problem Chronic pain G89.29 Active 97278566 Problem 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 M05.731 Active 613299222 Problem Rheumatoid arthritis of left wrist without organ or system involvement with positive rheumatoid factor M05.732 Active 943398810 Problem Acute non-recurrent frontal sinusitis J01.10 Active 33135136 Problem Hypertension I10 Active 18132699 Problem Elevated white blood cell count, unspecified D72.829 Active 569900271 Problem Hyperlipemia E78.5 Active 58272086 Assessment Hypertension I10 17 Jan, 2016 Active 81243194 Problem Irritant contact dermatitis due to other agents L24.89 Active 357757281 Problem Hospital discharge follow-up Z09 Active 011703899 Problem Pain in left knee M25.562 Active 82480297 Problem Acute non-recurrent maxillary sinusitis J01.00 Active 43710935 Problem Migraine without aura, not intractable, with status migrainosus G43.001 Active 50353256 Problem Atherosclerotic heart disease of [place] coronary artery 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.10 Active 461679000 Problem CAD (coronary artery disease) I25.10 Active 80719038 Problem Gastro-esophageal reflux disease without esophagitis K21.9 Active 852514436 Problem Allergic rhinitis J30.9 Active 40213214 Problem Injury of left hand S69.92XA Active 478641208 Problem Emphysema, unspecified J43.9 Active 46522237 Problem Anxiety associated with depression F41.8 Active 214951626 Problem Type 2 diabetes mellitus with diabetic neuropathy, unspecified E11.40 Active 40317435 Problem Neuropathy G62.9 Active 726547495 ALLERGIES Substance Reaction Event Type Date Status Sulfacetamide Sodium unknown Drug Allergy Jan, Active Singulair dizziness Drug Allergy Jan, Active SOCIAL HISTORY No smoking Hx information available PLAN OF CARE VITAL SIGNS Height 66 in 2016-02-04 Weight 194 lbs 2016-02-04 Heart Rate 90 bpm 2016-02-04 Respiratory Rate 16 2016-02-04 Oximetry ambulating w/o oxygen:91 % 2016-02-04 BMI 31.31 kg/m2 2016-02-04 Blood pressure systolic 114 mmHg 2016-02-04 Blood pressure diastolic 40 mmHg 2016-02-04 MEDICATIONS Medication Instructions Dosage Frequency Start Date End Date Duration Status Citalopram Hydrobromide 40 MG Orally Once a day 1 tablet 24h Active Nystatin-Triamcinolone 668837-3.1 UNIT/GM Externally Twice a day apply thin layer to irritated abdominal areas 12h July, Active Albuterol Sulfate (2.5 MG/3ML) 0.083% Inhalation Three times a day 3 ml 8h Active Hydrocodone-Acetaminophen 5-325 MG Orally 3 times a day 1 tablet as needed 8h Active Lisinopril 20 mg Orally Once a day 1 tablet 24h 90 days Active Blood Glucose Test Test Strips In Vitro 4 times a day test blood sugar 6h Jun, Active Nasonex 50 MCG/ACT Nasally Once a day 2 sprays in each nostril 24h Active Metoprolol Tartrate 25 MG Orally Twice a day 1 tablet 12h Active Easy Touch Pen [place] 32G X 4 MM sq 4 times a day as directed 6h Sep, Active Oxygen Active Cetirizine HCl 10 Orally Once a day TAKE 1 TABLET BY MOUTH DAILY 24h Active Quad Cane as directed May, Active Protonix 20 mg Orally Once a day 1 tablet 24h Active Lyrica 25 MG Orally 2 times a day 1 capsules 12h Jan, Active Blood Glucose Monitor System w/Device as directed July, Active Baclofen 10 mg Orally Three times a day 1 tablet with food or milk 8h 90 Active Fish Oil 1200 MG Orally Once a day 1 capsule 24h Active Fenofibrate 54 MG Orally Once a day 1 tablet with a meal 24h Oct, 90 days Active Aspirin Adult Low Strength 81 MG Orally Once a day 1 tablet 24h Active Metformin HCl 1000 MG Orally Twice a day with meals 1 tablet with meals Jan, Active Methotrexate 2.5 MG TAKE EIGHT TABLETS BY MOUTH ONCE WEEKLY 28 Active Mucinex 600 MG Orally every 12 hrs 1 tablet as needed 12h Mar, Active Victoza 18 MG/3ML Subcutaneous Once a day 1.8mg 24h Active Azithromycin 250 MG Orally Once a day 2 tablets on the first day, then 1 tablet daily for 4 days 24h 17 Jan, 2016 Jan, 5 day(s) Active Lyrica 50 MG Orally Twice a day 1 capsule 12h Oct, Active Folic Acid 1 MG Orally Once a day 1 tablet 24h 90 Active Ventolin HFA 108 (90 Base) MCG/ACT Inhalation every 4 hrs 2 puffs as needed 4h Active Aleve 220 MG Orally every 12 hrs 1 tablet 12h Active Symbicort 160-4.5 MCG/ACT Inhalation Twice a day 2 puffs 12h Active RESULTS No Results PROCEDURES Procedure Date Ordered Related Diagnosis Body Site Office Visit, Est Pt., Level 4 Feb 04, 2016 MEASURE BLOOD OXYGEN LEVEL Feb 04, 2016 IMMUNIZATIONS No Known Immunizations
--- OUTSIDE RECORDS SUMMARY | 2017-02-28 11:49 | XMS REPORT ---
Author CLAU Sykes Organization [employer] Address Unknown Phone Unavailable Care Team Providers Care Office Chair Assembler Name Role Phone CLAU DELEON CP Unavailable Allergies, Adverse Reactions, Alerts Substance Reaction Event Type Sulfacetamide Sodium unknown Drug Allergy Singulair dizziness Drug Allergy Problems Problem Type Condition Code Onset Dates Condition Status Assessment Chronic pain G89.29 Active Assessment Acute non-recurrent frontal sinusitis J01.10 Active Assessment Elevated white blood cell count, unspecified D72.829 Active Assessment 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 M05.731 Active Assessment Hyperlipemia E78.5 Active Problem Injury of left hand S69.92XA Active Assessment Hypertension I10 Active Problem Anxiety associated with depression F41.8 Active Assessment Gastro-esophageal reflux disease without esophagitis K21.9 Active Problem Neuropathy G62.9 Active Problem Rheumatoid arthritis of left wrist without organ or system involvement with positive rheumatoid factor M05.732 Active Problem Chronic pain G89.29 Active Problem Elevated white blood cell count, unspecified D72.829 Active Problem Pain in left knee M25.562 Active Problem Hyperlipemia E78.5 Active Assessment Type 2 diabetes mellitus with diabetic neuropathy, unspecified E11.40 Active Problem Acute non-recurrent frontal sinusitis J01.10 Active Assessment Emphysema, unspecified J43.9 Active Problem Hospital discharge follow-up Z09 Active [...] J30.9 Active Problem Atherosclerotic heart disease of [place] coronary artery 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.10 Active Problem Emphysema, unspecified J43.9 Active Medications Medication Code System Code Instructions Start Date End Date Status Dosage Citalopram Hydrobromide [facility] [place] [address]-89 40 MG Orally Once a day 1 tablet Protonix [facility] [place] [address]-00 20 mg Orally Once a day 1 tablet Hydrocodone-Acetaminophen [facility] [place] [address]-82 5-325 MG Orally 3 times a day 1 tablet as needed Symbicort [facility] [place] [address]-94 160-4.5 MCG/ACT Inhalation Twice a day 2 puffs Metformin HCl [facility] [place] [address]-07 1000 MG Orally Twice a day with meals Jan 27, 2015 1 tablet with meals Methotrexate [facility] [place] 37273496960 2.5 MG TAKE EIGHT TABLETS BY MOUTH ONCE WEEKLY Easy Touch Pen [place] [facility] [place] 8496-532273 32G X 4 MM sq 4 times a day September as directed Cetirizine HCl [facility] [place] 16350969379 10 Orally Once a day TAKE 1 TABLET BY MOUTH DAILY Blood Glucose Test [facility] [place] 0 Test Strips In Vitro 4 times a day June 22, 2015 test blood sugar Baclofen [facility] [place] 58017629984 10 mg Orally Three times a day 1 tablet with food or milk Nystatin-Triamcinolone [facility] [place] [address]-90 298455-6.1 UNIT/GM Externally Twice a day August 04, 2015 apply thin layer to irritated abdominal areas Victoza [facility] [place] 69185876413 18 MG/3ML Subcutaneous Once a day 1.8mg Albuterol Sulfate [facility] [place] [address]-00 (2.5 MG/3ML) 0.083% Inhalation Three times a day 3 ml Aleve [facility] [place] [address]-75 220 MG Orally every 12 hrs 1 tablet Lisinopril [facility] [place] [address]-57 20 MG Orally Once a day 1 tablet Ventolin HFA [facility] [place] [address]-29 108 (90 Base) MCG/ACT Inhalation every 4 hrs 2 puffs as needed Folic Acid [facility] [place] 17226295358 1 MG Orally Once a day 1 tablet Nasonex [facility] [place] [address]-11 50 MCG/ACT Nasally Once a day 2 sprays in each nostril Quad Cane [facility] [place] 7493-019061 June 18, 2015 as directed Mucinex [facility] [place] [address]-18 600 MG Orally every 12 hrs Mar 24, 2015 1 tablet as needed Fish Oil [facility] [place] [address]15 1200 MG Orally Once a day 1 capsule Augmentin [facility] [place] [address]-81 875-125 MG Orally every 12 hrs Jan 07, 2016 Jan 17, 2016 1 tablet Blood Glucose Monitor System [facility] [place] [address] w/Device July 31, 2015 as directed Lyrica [facility] [place] [address]-15 75 MG Orally Twice a day Nov 05, 2015 1 capsule Fenofibrate [facility] [place] [address]-54 54 MG Orally Once a day Nov 13, 2015 1 tablet with a meal Oxygen ND 0 not defined Metoprolol Tartrate [facility] [place] [address]-44 25 MG Orally Twice a day 1 tablet Aspirin Adult Low Strength [facility] [place] [address]-59 81 MG Orally Once a day 1 tablet Procedures Procedure Coding System Code Date Office Visit, Est Pt., Level 3 CPT-4 87065 Jan 07, 2016 Vital Signs Date/Time: Jan 07, 2016 Cardiac Monitoring Heart Rate 80 bpm Weight 188 lbs Height 66 in BMI 30.34 Index Blood Pressure Diastolic 70 mmHg Blood Pressure Systolic 112 mmHg Results No Known Results Summary Purpose [employer] Submission
--- OUTSIDE RECORDS SUMMARY | 2017-02-28 11:49 | XMS REPORT ---
Author Author CLAU DELEON Organization [employer] Address Unknown Phone Unavailable Care Team Providers Care Mine Technician Name Role Phone CLAU DELEON CP Unavailable [...] J30.9 Active Problem Atherosclerotic heart disease of [place] coronary artery 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.10 Active Problem Injury of left hand S69.92XA Active Problem Emphysema, unspecified J43.9 Active Problem Anxiety associated with depression F41.8 Active Medications No Known Medications Results No Known Results Summary Purpose [employer] Submission
--- OUTSIDE RECORDS SUMMARY | 2017-02-28 11:49 | XMS REPORT ---
Author MARYANA Coley Organization [employer] Address Unknown Phone Unavailable Care Team Providers Care Patient Office Rep Name Role Phone MARYANA ARGUETA CP Unavailable [...] I10 Active Problem Atherosclerotic heart disease of [place] coronary artery 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.10 Active Medications No Known Medications Results No Known Results Summary Purpose [employer] Submission
--- OUTSIDE RECORDS SUMMARY | 2017-02-28 11:49 | XMS REPORT ---
Author MARYANA Coley Organization [employer] Address Unknown Phone Unavailable Care Team Providers Care Developmental Mathematics Professor Name Role Phone MARYANA ARGUETA CP Unavailable [...] I10 Active Problem Atherosclerotic heart disease of [place] coronary artery 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.10 Active Medications No Known Medications Results No Known Results Summary Purpose [employer] Submission
--- OUTSIDE RECORDS SUMMARY | 2017-02-28 11:49 | XMS REPORT ---
Author Author CLAU DELEON Organization [employer] Address Unknown Phone Unavailable Care Team Providers Care Water Pump Installer Name Role Phone CLAU DELEON CP Unavailable Allergies No Known Allergies Problems Problem Type Condition Code Onset Dates Condition Status Problem Atherosclerotic heart disease of [place] coronary artery 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.10 Active [...]
--- OUTSIDE RECORDS SUMMARY | 2017-02-28 11:49 | XMS REPORT ---
Author SHERITA Howard [facility] [employer] Address Unknown Phone Unavailable Care Team Providers Care Supervisor Statement Clerks Name Role Phone SHERITA PATTERSON CP Unavailable Allergies No Known Allergies Problems [...] E78.5 Active Problem Hypertension I10 Active Assessment Closed nondisplaced fracture of scaphoid of left wrist, unspecified portion of scaphoid, initial encounter S62.002A Active Problem Migraine without aura, not intractable, with status migrainosus G43.001 Active Problem Atherosclerotic heart disease of [place] coronary artery 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.10 Active Problem CAD (coronary artery disease) I25.10 Active Problem Emphysema, unspecified J43.9 Active Problem Gastro-esophageal reflux disease without esophagitis K21.9 Active Problem Type 2 diabetes mellitus with diabetic neuropathy, unspecified E11.40 Active Medications No Known Medications Results No Known Results Summary Purpose [employer] Submission
--- OUTSIDE RECORDS SUMMARY | 2017-02-28 11:49 | XMS REPORT ---
Author BRANDIN Wolff Organization [employer] Address Unknown Phone Unavailable Care Team Providers Care Page Designer Name Role Phone BRANDIN HARDWICK CP Unavailable Allergies No Known Allergies Problems Problem Type Condition Code Onset Dates Condition Status Problem Atherosclerotic heart disease of [place] coronary artery 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.10 [...]
--- OUTSIDE RECORDS SUMMARY | 2017-02-28 11:50 | XMS REPORT ---
Author Author CLAU DELEON Organization [employer] Address Unknown Phone Unavailable Care Team Providers Care Lab Tester Name Role Phone CLAU DELEON CP Unavailable [...] G43.001 Active Problem Atherosclerotic heart disease of [place] coronary artery 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.10 Active Problem CAD (coronary artery disease) I25.10 Active Problem Emphysema, unspecified J43.9 Active Problem Gastro-esophageal reflux disease without esophagitis K21.9 Active Problem Type 2 diabetes mellitus with diabetic neuropathy, unspecified E11.40 Active Medications Medication Code System Code Instructions Start Date End Date Status Dosage Hydrocodone-Acetaminophen [facility] [address]-57 5-325 MG Orally 3 times a day 1 tablet as needed Results No Known Results Summary Purpose [employer] Submission
--- OUTSIDE RECORDS SUMMARY | 2017-02-28 11:50 | XMS REPORT ---
Author MARYANA Coley [facility] [employer] Address Unknown Phone Unavailable Care Team Providers Care Baggage Smasher Name Role Phone MARYANA ARGUETA CP Unavailable Allergies, Adverse Reactions, Alerts Substance Reaction Event Type Sulfacetamide Sodium Info Not Available Drug Allergy Problems Problem Type Condition Code Onset Dates Condition Status Problem Hyperlipemia E78.5 Active Problem CAD (coronary artery disease) I25.10 Active Problem Hypertension I10 Active Assessment Fungal infection B49 Active Assessment Allergic rhinitis J30.9 Active Problem Type 2 diabetes mellitus with diabetic neuropathy, unspecified E11.40 Active Problem Emphysema, unspecified J43.9 Active Problem Allergic rhinitis J30.9 Active Problem Migraine without aura, not intractable, with status migrainosus G43.001 Active Problem Gastro-esophageal reflux disease without esophagitis K21.9 Active Problem Essential (primary) hypertension I10 Active Problem Atherosclerotic heart disease of [place] coronary artery 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.10 Active Medications Medication Code System Code Instructions Start Date End Date Status Dosage Easy Touch Pen [place] [facility] 8496-215581 32G X 4 MM sq 4 times a day September as directed PredniSONE [facility] [address]-92 10 MG Orally Twice a day Jan 05, 2015Dec 1 tablet with food or milk Protonix [facility] [address]-28 20 MG Orally Once a day Dec 25, 2014 1 tablet Cetirizine HCl [facility] 62842358689 10 TAKE 1 TABLET BY MOUTH DAILY NovoLog Flexpen [facility] [address]-29 100 UNIT/ML Subcutaneous 3 times a day 18 units with meals Fish Oil [facility] [address]-10550 1200 MG Orally Once a day 1 capsule Symbicort [facility] [address]-20 160-4.5 MCG/ACT Inhalation Twice a day 2 puffs Lantus [facility] [address]-91 100 UNIT/ML Subcutaneous at night 60 units Gabapentin [facility] [address]-30 300 MG Orally Three times a day Dec 25, 2014 1 capsule at morning and lunch, 2 tabs at hs Albuterol Sulfate [facility] [address]-64 (2.5 MG/3ML) 0.083% Inhalation Three times a day 3 ml Metoprolol Tartrate [facility] [address]-58 25 MG Orally Twice a day 1 tablet Metformin HCl [facility] [address]-54 1000 MG Orally Twice a day 1 tablet with meals Aspirin Adult Low Strength [facility] [address]-22 81 MG Orally Once a day 1 tablet Ventolin HFA [facility] [address]-96 108 (90 Base) MCG/ACT Inhalation every 4 hrs 2 puffs as needed Singulair [facility] [address]-51 10 MG Orally Once a day Jan 05, 2015 1 tablet in the evening Diabetic Topical Pain Cream NDC 0 Flurbiprofen [facility] 20%, Baclofen [facility] 4%, Cyclobenzaprine HCL 2%, Gabapentin 10%, Lidocaine HCL 5% Topically to the focal site of pain 3-4 times per day Dec 23, 2014 Apply 1 to 2 pumps Oxygen NDC 0 not defined Baclofen [facility] [address]-26 10 MG Orally Three times a day Dec 25, 2014 1 tablet with food or milk Diabetic Vitamin Capsule ND 0 Resveratrol 175 mg/Alpha Lipoic Acid 50 mg/ CoQ10 50 mg/Methylcobalamin 0.5 mg/Yumdsvrlc-9-Omfnnhskt 25 mg/Methionine 12.5 mg/Inositol 25 mg/Choline Bitartrate 25 mg Orally twice a day Dec 23, 2014 2 capsules Nystatin-Triamcinolone [facility] [address]-51 721829-8.1 UNIT/GM-% Externally Twice a day Jan 05, 2015 Jan 15, 2015 1 application to affected area Citalopram Hydrobromide [facility] [address]-60 20 MG Orally Once a day 1 tablet Hydrocodone-Acetaminophen [facility] [address]-50 5-325 MG Orally every 6 hrs as needed for pain 1 tablet as needed Lisinopril [facility] [address]-42 20 MG Orally Once a day 1 tablet Nasonex [facility] [address]-46 50 MCG/ACT Nasally Once a day 2 sprays in each nostril Pravastatin Sodium [facility] [address]-29 20 MG Orally Once a day- PT REPLACE CRESTOR October 16, 2014 1 tablet DeVilbiss Nebulizer [facility] [address]267 not defined Procedures Procedure Coding System Code Date Office Visit, Est Pt., Level 3 CPT-4 37133 Jan 05, 2015 Vital Signs Date/Time: Jan 05, 2015 Temperature 99.0 F Weight 198.6 lbs Height 5'6 in BMI 38.78 Index Blood Pressure Diastolic 78 mmHg Blood Pressure Systolic 124 mmHg Cardiac Monitoring Heart Rate 82 bpm Results No Known Results Summary Purpose [employer]ClinicalWorks Submission
--- OUTSIDE RECORDS SUMMARY | 2017-02-28 11:50 | XMS REPORT ---
Author Author DELEONCLAU Moran Organization [facility] Address [address] [place] [address] Care Team Providers Care Mushroom Grower Name Role Phone DELEONCLAU Moran Unavailable PROBLEMS Type Condition ICD9-CM Code EKW89-EO Code Onset Dates Condition Status SNOMED Code Problem Anxiety associated with depression F41.8 Active 218495333 Problem Rheumatoid arthritis of left wrist without organ or system involvement with positive rheumatoid factor M05.732 Active 166057455 Problem Chronic pain G89.29 Active 19820714 Problem Acute exacerbation of chronic obstructive pulmonary disease (COPD) J44.1 Active 045933436 Problem Periodontitis K05.30 Active 88901461 Problem OAB (overactive bladder) N32.81 Active 456551911 Problem 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 M05.731 Active 618159642 Problem Primary insomnia F51.01 Active 3280235 Problem Rheumatoid arthritis involving multiple sites with positive rheumatoid factor M05.79 Active 706516687 Problem Vitamin D deficiency E55.9 Active 65882760 Problem Gastro-esophageal reflux disease without esophagitis K21.9 Active 523283208 Problem Emphysema, unspecified J43.9 Active 31042703 Problem Hyperlipemia E78.5 Active 01217923 Problem Type 2 diabetes mellitus with diabetic neuropathy, unspecified E11.40 Active 60858731 Problem Hypertension I10 Active 03297091 Problem Allergic rhinitis J30.9 Active 32101426 ALLERGIES Substance Reaction Event Type Date Status Sulfacetamide Sodium unknown Drug Allergy Feb, Active Singulair dizziness Drug Allergy Feb, Active SOCIAL HISTORY No smoking Hx information available PLAN OF CARE Activity Details Follow Up prn Reason: VITAL SIGNS Height 66 in 2016-03-10 Weight 190.9 lbs 2016-03-10 Temperature 97.0 degrees Fahrenheit 2016-03-10 Heart Rate 88 bpm 2016-03-10 Respiratory Rate 20 2016-03-10 BMI 30.81 kg/m2 2016-03-10 Blood pressure systolic 106 mmHg 2016-03-10 Blood pressure diastolic 62 mmHg 2016-03-10 MEDICATIONS Medication Instructions Dosage Frequency Start Date End Date Duration Status Lisinopril 20 mg Orally Once a day 1 tablet 24h 90 days Active Citalopram Hydrobromide 40 MG Orally Once a day 1 tablet 24h Active Nystatin-Triamcinolone 939347-3.1 UNIT/GM Externally Twice a day apply thin layer to irritated abdominal areas 12h 17 Jul, 2015 Active Plaquenil 200 mg Orally Once a day 1 tablet with food or milk 24h Jan, July, 90 days Active Methotrexate 2.5 MG TAKE EIGHT TABLETS BY MOUTH ONCE WEEKLY 28 Active Doxycycline Hyclate 100 MG Orally every 12 hrs 1 capsule 12h Feb, Feb, 10 days Active Victoza 18 MG/3ML Subcutaneous Once a day 1.8mg 24h Active Albuterol Sulfate (2.5 MG/3ML) 0.083% Inhalation Three times a day 3 ml 8h Active Fenofibrate 54 MG Orally Once a day 1 tablet with a meal 24h Oct, 90 days Active Folic Acid 1 MG Orally Once a day 1 tablet 24h 90 Active Azithromycin 250 MG Orally Once a day 2 tablets on the first day, then 1 tablet daily for 4 days 24h Feb, Feb, 5 day(s) Active Metoprolol Tartrate 25 MG Orally Twice a day 1 tablet 12h Active Blood Glucose Test Test Strips In Vitro 4 times a day test blood sugar 6h Jun, Active Easy Touch Pen [place] 32G X 4 MM sq 4 times a day as directed 6h Sep, Active Quad Cane as directed May, Active Hydrocodone-Acetaminophen 5-325 MG Orally 3 times a day 1 tablet as needed 8h Active Baclofen 10 mg Orally Three times a day 1 tablet with food or milk 8h 90 Active Mucinex 600 MG Orally every 12 hrs 1 tablet as needed 12h Mar, Active Fish Oil 1200 MG Orally Once a day 1 capsule 24h Active Aleve 220 MG Orally every 12 hrs 1 tablet 12h Active Lyrica 75 MG Orally Twice a day 1 capsule 12h Feb, 28 days Active Oxygen Active Ventolin HFA 108 (90 Base) MCG/ACT Inhalation every 4 hrs 2 puffs as needed 4h Active Blood Glucose Monitor System w/Device as directed July, Active Nasonex 50 MCG/ACT Nasally Once a day 2 sprays in each nostril 24h Active Metformin HCl 1000 MG Orally Twice a day with meals 1 tablet with meals Jan, Active Cetirizine HCl 10 Orally Once a day TAKE 1 TABLET BY MOUTH DAILY 24h Active Aspirin Adult Low Strength 81 MG Orally Once a day 1 tablet 24h Active Symbicort 160-4.5 MCG/ACT Inhalation Twice a day 2 puffs 12h Active Protonix 20 mg Orally Once a day 1 tablet 24h Active RESULTS Name Result Date Reference Range CBC 2016-03-10 WBC 9.6 3.4-10.8 RBC 4.90 3.77-5.28 Hemoglobin 14.9 11.1-15.9 Hematocrit 44.4 34.0-46.6 MCV 91 79-97 MCH 30.4 26.6-33.0 MCHC 33.6 31.5-35.7 RDW 15.1 12.3-15.4 Platelets 244 150-379 Neutrophils 62 Lymphs 28 Monocytes 5 Eos 5 Basos 0 Immature Cells Neutrophils (Absolute) 5.9 1.4-7.0 Lymphs (Absolute) 2.7 0.7-3.1 Monocytes(Absolute) 0.5 0.1-0.9 Eos (Absolute) 0.5 0.0-0.4 Baso (Absolute) 0.0 0.0-0.2 Immature Granulocytes 0 Immature Grans (Abs) 0.0 0.0-0.1 NR Hematology Comments: CMP 2016-03-10 Glucose, Serum 227 65-99 BUN 11 6-24 Creatinine, Serum 0.75 0.57-1.00 eGFR If NonAfricn Am 91 >59 eGFR If Africn Am 105 >59 BUN/Creatinine Ratio 15 9-23 Sodium, Serum 140 134-144 Potassium, Serum 3.9 3.5-5.2 Chloride, Serum 103 96-106 Carbon Dioxide, Total 22 18-29 Calcium, Serum 9.0 8.7-10.2 Protein, Total, Serum 6.0 6.0-8.5 Albumin, Serum 3.9 3.5-5.5 Globulin, Total 2.1 1.5-4.5 A/G Ratio 1.9 1.1-2.5 Bilirubin, Total <0.2 0.0-1.2 Alkaline Phosphatase, S 45 39-117 AST (SGOT) 14 0-40 ALT (SGPT) 15 0-32 Xray : Chest (IN HOUSE) 2016-03-10 PROCEDURES Procedure Date Ordered Related Diagnosis Body Site CHEST X-RAY Mar 10, 2016 LAB NOT BILLED BY [facility] Mar 10, 2016 Office Visit, Est Pt., Level 4 Mar 10, 2016 VENIPUNCT, ROUTINE* Mar 10, 2016 IMMUNIZATIONS No Known Immunizations
--- OUTSIDE RECORDS SUMMARY | 2017-02-28 11:50 | XMS REPORT ---
Author Author MARYANA ARGUETA [facility] e[employer] Address Unknown Phone Unavailable Care Team Providers Care Marketing Sales Supervisor Name Role Phone MARYANA ARGUETA CP Unavailable Allergies No Known Allergies Problems Problem Type Condition Code Onset Dates Condition Status Problem Hyperlipemia E78.5 Active Problem CAD (coronary artery disease) I25.10 Active Problem Hypertension I10 Active Assessment Depression F32.9 Active Problem Type 2 diabetes mellitus with diabetic neuropathy, unspecified E11.40 Active Problem Emphysema, unspecified J43.9 Active Problem Allergic rhinitis J30.9 Active Problem Migraine without aura, not intractable, with status migrainosus G43.001 Active Problem Gastro-esophageal reflux disease without esophagitis K21.9 Active Problem Essential (primary) hypertension I10 Active Problem Atherosclerotic heart disease of [place] coronary artery 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.10 Active Medications Medication Code System Code Instructions Start Date End Date Status Dosage Citalopram Hydrobromide [facility] [address]-96 20 MG Orally Once a day 1 tablet Results No Known Results Summary Purpose eClinicalWorks Submission
--- OUTSIDE RECORDS SUMMARY | 2017-02-28 11:50 | XMS REPORT ---
Author CLAU Sykes Organization [employer] Address Unknown Phone Unavailable Care Team Providers Care Fixing Machine Operator Name Role Phone CLAU DELEON CP Unavailable Allergies, Adverse Reactions, Alerts Substance Reaction Event Type Sulfacetamide Sodium unknown Drug Allergy Singulair dizziness Drug Allergy Problems Problem Type Condition Code Onset Dates Condition Status Problem Allergic rhinitis J30.9 Active Problem Anxiety associated with depression F41.8 Active Problem Injury of left hand S69.92XA Active Problem Irritant contact dermatitis due to other agents L24.89 Active Assessment Hyperlipemia E78.5 Active Problem Hospital discharge follow-up Z09 Active Assessment Acute non-recurrent maxillary sinusitis J01.00 Active Problem Acute non-recurrent maxillary sinusitis J01.00 Active Problem Chronic pain G89.29 Active Problem Neuropathy G62.9 Active Problem 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 M05.731 Active Problem Rheumatoid arthritis of left wrist without organ or system involvement with positive rheumatoid factor M05.732 Active Problem Hyperlipemia E78.5 Active Problem Hypertension I10 Active Assessment Hypertension I10 Active Assessment Type 2 diabetes mellitus with diabetic neuropathy, unspecified E11.40 Active Problem Migraine without aura, not intractable, with status migrainosus G43.001 Active Problem Atherosclerotic heart disease of [place] coronary artery 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.10 Active Problem CAD (coronary artery disease) I25.10 Active Problem Emphysema, unspecified J43.9 Active Problem Gastro-esophageal reflux disease without esophagitis K21.9 Active Problem Type 2 diabetes mellitus with diabetic neuropathy, unspecified E11.40 Active Medications Medication Code System Code Instructions Start Date End Date Status Dosage Citalopram Hydrobromide [facility] [address]-98 40 MG Orally Once a day 1 tablet Easy Touch Pen [place] [facility] 8496-999094 32G X 4 MM sq 4 times a day September as directed Ventolin HFA [facility] [address]-25 108 (90 Base) MCG/ACT Inhalation every 4 hrs 2 puffs as needed Quad Cane [facility] 8225-265421 June 18, 2015 as directed Aspirin Adult Low Strength [facility] [address]-03 81 MG Orally Once a day 1 tablet Nystatin-Triamcinolone [facility] [address]-50 189266-3.1 UNIT/GM Externally Twice a day August 04, 2015 apply thin layer to irritated abdominal areas Lantus [facility] [address]-11 100 UNIT/ML Subcutaneous at night 60 units Fish Oil [facility] 72373-77481 1200 MG Orally Once a day 1 capsule Nasonex [facility] [address]-52 50 MCG/ACT Nasally Once a day 2 sprays in each nostril NovoLog Flexpen [facility] [address]-21 100 UNIT/ML Subcutaneous 3 times a day 20 units with meals Metformin HCl [facility] [address]-43 1000 MG Orally Twice a day with meals Jan 27, 2015 1 tablet with meals Metoprolol Tartrate [facility] [address]-56 25 MG Orally Twice a day 1 tablet Protonix [facility] [address]-18 20 mg Orally Once a day 1 tablet Hydrocodone-Acetaminophen [facility] [address]-82 5-325 MG Orally 3 times a day 1 tablet as needed Aleve [facility] [address]-51 220 MG Orally every 12 hrs 1 tablet Cetirizine HCl [facility] 96061657426 10 Orally Once a day TAKE 1 TABLET BY MOUTH DAILY Methotrexate [facility] 10165334331 2.5 MG TAKE EIGHT TABLETS BY MOUTH ONCE WEEKLY Folic Acid [facility] 57207982048 1 MG Orally Once a day 1 tablet Mucinex [facility] [address]-70 600 MG Orally every 12 hrs Mar 24, 2015 1 tablet as needed Baclofen [facility] [address]-74 10 mg Orally Three times a day Dec 25, 2014 1 tablet with food or milk Victoza [facility] [address]-45 18 MG/3ML Subcutaneous Once a day July 02, 2015 1.8mg Pravastatin Sodium [facility] [address]-13 20 mg Orally Once a day October 16, 2014 1 tablet Doxycycline Monohydrate [facility] [address]-65 100 MG Orally every 12 hrs October 01, 2015 October 08, 2015 1 capsule Oxygen ND 0 not defined Lisinopril [facility] [address]-52 20 MG Orally Once a day 1 tablet Symbicort [facility] [address]-35 160-4.5 MCG/ACT Inhalation Twice a day 2 puffs Blood Glucose Monitor System [facility] [address] w/Device July 31, 2015 as directed Blood Glucose Test [facility] 0 Test Strips In Vitro 4 times a day June 22, 2015 test blood sugar Albuterol Sulfate [facility] [address]-78 (2.5 MG/3ML) 0.083% Inhalation Three times a day 3 ml Procedures Procedure Coding System Code Date Office Visit, Est Pt., Level 4 CPT-4 27373 October 01, 2015 Vital Signs Date/Time: October 01, 2015 Cardiac Monitoring Heart Rate 78 bpm Weight 188.8 lbs Height 66 in Blood Pressure Diastolic 72 mmHg Blood Pressure Systolic 131 mmHg Results No Known Results Summary Purpose [employer] Submission
--- OUTSIDE RECORDS SUMMARY | 2017-02-28 11:51 | XMS REPORT ---
Author RODERICK Aguilera Organization [employer] Address Unknown Phone Unavailable Care Team Providers Care Crime Data Specialist Name Role Phone RODERICK STEVENS CP Unavailable Allergies No Known Allergies Problems [...] I25.10 Active Problem Atherosclerotic heart disease of [place] coronary artery 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.10 Active Problem Migraine without aura, not intractable, with status migrainosus G43.001 Active Medications No Known Medications Results No Known Results Summary Purpose [employer] Submission
--- OUTSIDE RECORDS SUMMARY | 2017-02-28 11:51 | XMS REPORT ---
Author Author CLAU DELEON Organization [employer] Address Unknown Phone Unavailable Care Team Providers Care Station Master Name Role Phone CLAU DELEON CP Unavailable Allergies No Known Allergies Problems Problem Type Condition Code Onset Dates Condition Status Problem Atherosclerotic heart disease of [place] coronary artery 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.10 Active [...]
--- OUTSIDE RECORDS SUMMARY | 2017-02-28 11:51 | XMS REPORT ---
Author Author PANCHOROBCLAU Organization [facility] Address [address] [place] [address] Care Team Providers Care Air Plant Engineer Name Role Phone DELEONCLAU Moran Unavailable PROBLEMS Type Condition ICD9-CM Code BYS32-CW Code Onset Dates Condition Status SNOMED Code Problem Anxiety associated with depression F41.8 Active 146251678 Problem Rheumatoid arthritis of left wrist without organ or system involvement with positive rheumatoid factor M05.732 Active 158279699 Problem Chronic pain G89.29 Active 07784852 Problem Acute exacerbation of chronic obstructive pulmonary disease (COPD) J44.1 Active 678918212 Problem Periodontitis K05.30 Active 21259109 Problem OAB (overactive bladder) N32.81 Active 819510306 Problem 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 M05.731 Active 688428423 Problem Primary insomnia F51.01 Active 9403749 Problem Rheumatoid arthritis involving multiple sites with positive rheumatoid factor M05.79 Active 580502211 Problem Vitamin D deficiency E55.9 Active 50686790 Problem Gastro-esophageal reflux disease without esophagitis K21.9 Active 219207791 Problem Emphysema, unspecified J43.9 Active 58686305 Problem Hyperlipemia E78.5 Active 88650957 Problem Type 2 diabetes mellitus with diabetic neuropathy, unspecified E11.40 Active 36159107 Problem Hypertension I10 Active 81893517 Problem Allergic rhinitis J30.9 Active 41858610 ALLERGIES Unknown Allergies SOCIAL HISTORY No smoking Hx information available PLAN OF CARE VITAL SIGNS MEDICATIONS Medication Instructions Dosage Frequency Start Date End Date Duration Status Hydrocodone-Acetaminophen 5-325 MG Orally 3 times a day 1 tablet as needed 8h Active RESULTS No Results PROCEDURES No Known procedures IMMUNIZATIONS No Known Immunizations
--- OUTSIDE RECORDS SUMMARY | 2017-02-28 11:51 | XMS REPORT ---
Author Author MARYANA ARGUETA [facility] [employer] Address Unknown Phone Unavailable Care Team Providers Care Software Development Coordinator Name Role Phone MARYANA ARGUETA CP Unavailable Allergies No Known Allergies Problems Problem Type Condition Code Onset Dates Condition Status Problem Hyperlipemia E78.5 Active Problem CAD (coronary artery disease) I25.10 Active Problem Hypertension I10 Active Assessment Type 2 diabetes mellitus with diabetic neuropathy, unspecified E11.40 Active Problem Type 2 diabetes mellitus with diabetic neuropathy, unspecified E11.40 Active Problem Emphysema, unspecified J43.9 Active Problem Allergic rhinitis J30.9 Active Problem Migraine without aura, not intractable, with status migrainosus G43.001 Active Problem Gastro-esophageal reflux disease without esophagitis K21.9 Active Problem Essential (primary) hypertension I10 Active Problem Atherosclerotic heart disease of [place] coronary artery 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.10 Active Medications Medication Code System Code Instructions Start Date End Date Status Dosage Metformin HCl [facility] [address]-85 1000 MG Orally Twice a day Jan 27, 2015 1 tablet with meals Results No Known Results Summary Purpose [employer] Submission
--- OUTSIDE RECORDS SUMMARY | 2017-02-28 11:51 | XMS REPORT ---
Author MARYANA Coley Organization [employer] Address Unknown Phone Unavailable Care Team Providers Care Flatwork Presser Name Role Phone MARYANA ARGUETA CP Unavailable [...] I10 Active Problem Atherosclerotic heart disease of [place] coronary artery 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.10 Active Medications No Known Medications Results No Known Results Summary Purpose [employer] Submission
--- OUTSIDE RECORDS SUMMARY | 2017-02-28 11:51 | XMS REPORT ---
Author Author CLAU DELEON Organization [employer] Address Unknown Phone Unavailable Care Team Providers Care Dental Practitioner Name Role Phone CLAU DELEON CP Unavailable Allergies, Adverse Reactions, Alerts Substance Reaction Event Type Sulfacetamide Sodium unknown Drug Allergy Singulair dizziness Drug Allergy Problems Problem Type Condition Code Onset Dates Condition Status Assessment Type 2 diabetes mellitus with diabetic neuropathy, unspecified E11.40 Active Problem Hypertension I10 Active Problem Hyperlipemia E78.5 Active Problem Type 2 diabetes mellitus with diabetic neuropathy, unspecified E11.40 Active Assessment Depression with anxiety F41.8 Active Problem Emphysema, unspecified J43.9 Active Problem Allergic rhinitis J30.9 Active Problem Gastro-esophageal reflux disease without esophagitis K21.9 Active Problem CAD (coronary artery disease) I25.10 Active Problem Atherosclerotic heart disease of [place] coronary artery 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.10 Active Problem Migraine without aura, not intractable, with status migrainosus G43.001 Active Assessment History of solitary pulmonary nodule Z87.898 Active Assessment Hypertension I10 Active Assessment Chronic pain G89.29 Active Assessment Allergic rhinitis J30.9 Active Assessment Gastro-esophageal reflux disease without esophagitis K21.9 Active Assessment Atherosclerotic heart disease of [place] coronary artery 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.10 Active Assessment Hyperlipemia E78.5 Active Assessment Essential (primary) hypertension I10 Active Assessment CAD (coronary artery disease) I25.10 Active Assessment Emphysema, unspecified J43.9 Active Medications Medication Code System Code Instructions Start Date End Date Status Dosage Fish Oil [facility] [place] [facility] [address]488 1200 MG Orally Once a day 1 capsule Pravastatin Sodium [facility] [place]] [address]-87 20 MG Orally Once a day- PT [employer]PLACE [employer]OR October 16, 2014 1 tablet Aspirin Adult Low Strength [facility] [place]] [address]-22 81 MG Orally Once a day 1 tablet Oxygen NDC 0 not defined Mucinex [facility] [place] 2[facility] [address]-97 600 MG Orally every 12 hrs Mar 24, 2015 1 tablet as needed Diabetic Topical Pain Cream NDC 0 Flurbiprofen MCFP 20%, Baclofen MCFP 4%, Cyclobenzaprine HCL 2%, Gabapentin 10%, Lidocaine HCL 5% Topically to the focal site of pain 3-4 times per day Dec 23, 2014 Apply 1 to 2 pumps Tradjenta [facility] [place] [address]-79 5 MG Orally Once a day Apr 23, 2015 1 tablet Baclofen [facility] [place] 2[facility] [address]-94 10 MG Orally Three times a day Dec 25, 2014 1 tablet with food or milk DeVilbiss Nebulizer [facility] [place] 2] 10880-67849 not defined Metoprolol Tartrate [facility] [place] 2] [address]-32 25 MG Orally Twice a day 1 tablet NovoLog Flexpen [facility] [place]] [address]-75 100 UNIT/ML Subcutaneous 3 times a day 20 units with meals Nasonex [facility] [place] 2] [address]-64 50 MCG/ACT Nasally Once a day 2 sprays in each nostril Cetirizine HCl [facility] [place]] 81409654800 10 Orally Once a day TAKE 1 TABLET BY MOUTH DAILY Gabapentin [facility] [place] 2] [address]-63 300 MG Orally Three times a day Dec 25, 2014 1 capsule at morning and lunch, 2 tabs at hs Hydrocodone-Acetaminophen [facility] [place]] [address]-90 5-325 MG Orally 3 times a day 1 tablet as needed Aleve [facility] [place] 2] [address]-35 220 MG Orally not defined Symbicort [facility] [place] 2[facility] [address]-71 160-4.5 MCG/ACT Inhalation Twice a day 2 puffs Easy Touch Pen [place] [facility] [place] 2] 8496-051880 32G X 4 MM sq 4 times a day September as directed Albuterol Sulfate [facility] [place] 2] [address]-87 (2.5 MG/3ML) 0.083% Inhalation Three times a day 3 ml Metformin HCl [facility] [place]] [address]-89 1000 MG Orally Twice a day 1 tablet with meals Citalopram Hydrobromide [facility] [place] 2[facility] [address]-61 40 MG Orally Once a day 1 tablet Protonix [facility] [place]] [address]-06 20 MG Orally Once a day 1 tablet Ventolin HFA [facility] [place] 2] [address]-66 108 (90 Base) MCG/ACT Inhalation every 4 hrs 2 puffs as needed Lantus [facility] [place] 2] [address]-02 100 UNIT/ML Subcutaneous at night 60 units Metformin HCl [facility] [place] 2[facility] [address]-86 1000 MG Orally Twice a day with meals Jan 27, 2015 1 tablet with meals Lisinopril [facility] [place] 2] [address]-99 20 MG Orally Once a day 1 tablet Diabetic Vitamin Capsule NDC 0 Resveratrol 175 mg/Alpha Lipoic Acid 50 mg/ CoQ10 50 mg/Methylcobalamin 0.5 mg/Dbyowwftz-8-Ksavrwojt 25 mg/Methionine 12.5 mg/Inositol 25 mg/Choline Bitartrate 25 mg Orally twice a day Dec 23, 2014 2 capsules Procedures Procedure Coding System Code Date MICROALBUMIN, SEMIQUANT CPT-4 14015 Apr 23, 2015 DRUG SCREEN NON TLC DEVICES CPT-4 65859 Apr 23, 2015 GLYCATED HEMOGLOBIN TEST CPT-4 31471 Apr 23, 2015 CHEST X-RAY CPT-4 94062 Apr 23, 2015 No Charge CPT-4 30405 Apr 23, 2015 Office Visit, Est Pt., Level 4 CPT-4 97056 Apr 23, 2015 Vital Signs Date/Time: Apr 23, 2015 Temperature 97.0 F Weight 197.1 lbs Height 66 in BMI 31.81 Index Blood Pressure Diastolic 68 mmHg Blood Pressure Systolic 106 mmHg Cardiac Monitoring Heart Rate 80 bpm Results Name Result Date Reference Range Unit Abnormality Flag URINE DRUG SCREEN (IN HOUSE) ----BAR negative 20150423 ----PCP negative 20150423 ----Control + 20150423 ----COCAINE negative 20150423 ----AMPH negative 20150423 ----MTD negative 20150423 ----MDMA negative 20150423 ----THC negative 20150423 ----TCA negative 20150423 ----OPIATE negative 20150423 ----Lot # [id number] 20150423 ----BENZO negative 20150423 ----MAMP negative 20150423 ----Exp date 20150423 ----OXY negative 20150423 A1C (IN HOUSE) ----A1C IN HOUSE 9.3 20150423 4.3 - 5.6 % ----Previous A1c 8.7 20150423 ----Lot [id number] 20150423 ----Exp date 20150423 MICROALBUMIN, URINE (IN HOUSE) ----A:C (IN HOUSE) <30 mg/g 20150423 ----CRE 200mg/dL 20150423 ----Color yellow 20150423 ----ALB 10 mg/L 20150423 ----Exp date 20150423 ----Clarity clear 20150423 ----Lot # [id number] 20150423 Summary Purpose eClinicalWorks Submission
--- OUTSIDE RECORDS SUMMARY | 2017-02-28 11:52 | XMS REPORT ---
Author Author CLAU DELEON Organization [facility] Address [address] [place] [address] Care Team Providers Care Mushroom Press Operator Name Role Phone CLAU DELEON Unavailable PROBLEMS Type Condition ICD9-CM Code MRT83-TI Code Onset Dates Condition Status SNOMED Code Problem Anxiety associated with depression F41.8 Active 964878372 Problem 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 M05.731 Active 845564586 Problem Chronic pain G89.29 Active 91629456 Problem Acute exacerbation of chronic obstructive pulmonary disease (COPD) J44.1 Active 267266977 Problem Periodontitis K05.30 Active 34646376 Problem OAB (overactive bladder) N32.81 Active 045725530 Problem Rheumatoid arthritis of left wrist without organ or system involvement with positive rheumatoid factor M05.732 Active 743770456 Problem Primary insomnia F51.01 Active 6985320 Problem Rheumatoid arthritis involving multiple sites with positive rheumatoid factor M05.79 Active 866792208 Problem Vitamin D deficiency E55.9 Active 92265151 Problem Gastro-esophageal reflux disease without esophagitis K21.9 Active 176969781 Problem Emphysema, unspecified J43.9 Active 50256043 Problem Hyperlipemia E78.5 Active 73132131 Problem Type 2 diabetes mellitus with diabetic neuropathy, unspecified E11.40 Active 86714734 Problem Hypertension I10 Active 01933397 Problem Allergic rhinitis J30.9 Active 36157738 ALLERGIES No Information SOCIAL HISTORY Never Assessed PLAN OF CARE VITAL SIGNS MEDICATIONS Unknown Medications RESULTS No Results PROCEDURES No Known procedures IMMUNIZATIONS No Known Immunizations MEDICAL (GENERAL) HISTORY Type Description Date Medical History COPD Medical History Type 2 Diabetes Medical History HTN Medical History Cardiac stents July 2010 post [place]-stent to LAD Medical History Rheumatoid Arthritis Medical History 04/2016---Echo- 60%//mild hypertrophy at the base of the septum , mild mitral regurg/ mild tricuspid regurg. PAP about 10-15 mmHg Medical History 04/2016------Normal Lexiscan Medical History Elevated white blood cell count, unspecified Medical History Atherosclerotic heart disease of [place] coronary artery without angina pectoris Medical History [...]
--- OUTSIDE RECORDS SUMMARY | 2017-02-28 11:52 | XMS REPORT ---
Author MARYANA Coley [facility] eClinicalWorks Address Unknown Phone Unavailable Care Team Providers Care Dealer Accounts Investigator Name Role Phone MARYANA ARGUETA CP Unavailable Allergies, Adverse Reactions, Alerts Substance Reaction Event Type Sulfacetamide Sodium unknown Drug Allergy Singulair dizziness Drug Allergy Problems Problem Type Condition Code Onset Dates Condition Status Problem Hyperlipemia E78.5 Active Problem CAD (coronary artery disease) I25.10 Active Problem Hypertension I10 Active Assessment Otitis media, right H66.91 Active Problem Type 2 diabetes mellitus with diabetic neuropathy, unspecified E11.40 Active Problem Emphysema, unspecified J43.9 Active Problem Allergic rhinitis J30.9 Active Problem Migraine without aura, not intractable, with status migrainosus G43.001 Active Problem Gastro-esophageal reflux disease without esophagitis K21.9 Active Problem Essential (primary) hypertension I10 Active Problem Atherosclerotic heart disease of [place] coronary artery 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.10 Active Medications Medication Code System Code Instructions Start Date End Date Status Dosage Pravastatin Sodium [facility] [address]-57 20 MG Orally Once a day- PT REPLACE CRESTOR October 16, 2014 1 tablet Easy Touch Pen [place] [facility] 8496-086472 32G X 4 MM sq 4 times a day September as directed Baclofen [facility] [address]-76 10 MG Orally Three times a day Dec 25, 2014 1 tablet with food or milk Hydrocodone-Acetaminophen [facility] [address]-38 5-325 MG Orally every 6 hrs as needed for pain 1 tablet as needed Aspirin Adult Low Strength [facility] [address]-37 81 MG Orally Once a day 1 tablet Oxygen ND 0 not defined Fish Oil [facility] 07395-38781 1200 MG Orally Once a day 1 capsule PredniSONE [facility] [address]-43 10 MG Orally Once a day Feb 04, 2015 Feb 09, 2015 2 tablet with food or milk daily x 2 days then 1 tab daily x 3 days Gabapentin [facility] [address]-90 300 MG Orally Three times a day Dec 25, 2014 1 capsule at morning and lunch, 2 tabs at hs DeVilbiss Nebulizer [facility] 64468-54533 not defined Ventolin HFA [facility] [address]-49 108 (90 Base) MCG/ACT Inhalation every 4 hrs 2 puffs as needed Symbicort [facility] [address]-60 160-4.5 MCG/ACT Inhalation Twice a day 2 puffs Cetirizine HCl [facility] 01064806491 10 TAKE 1 TABLET BY MOUTH DAILY Diabetic Vitamin Capsule ND 0 Resveratrol 175 mg/Alpha Lipoic Acid 50 mg/ CoQ10 50 mg/Methylcobalamin 0.5 mg/Xyljwgaqr-8-Htleuykmf 25 mg/Methionine 12.5 mg/Inositol 25 mg/Choline Bitartrate 25 mg Orally twice a day Dec 23, 2014 2 capsules Lantus [facility] [address]-88 100 UNIT/ML Subcutaneous at night 60 units Amoxicillin [facility] [address]-01 500 MG Orally 3 times a day Feb 04, 2015 Feb 14, 2015 1 tablet Metformin HCl [facility] [address]-41 1000 MG Orally Twice a day Jan 27, 2015 1 tablet with meals Protonix [facility] [address]-37 20 MG Orally Once a day Dec 25, 2014 1 tablet Citalopram Hydrobromide [facility] [address]-95 20 MG Orally Once a day 1 tablet Albuterol Sulfate [facility] [address]-59 (2.5 MG/3ML) 0.083% Inhalation Three times a day 3 ml NovoLog Flexpen [facility] [address]-73 100 UNIT/ML Subcutaneous 3 times a day 20 units with meals Metoprolol Tartrate [facility] [address]-70 25 MG Orally Twice a day 1 tablet Nasonex [facility] [address]-69 50 MCG/ACT Nasally Once a day 2 sprays in each nostril Lisinopril [facility] [address]-28 20 MG Orally Once a day 1 tablet Metformin HCl [facility] [address]-12 1000 MG Orally Twice a day 1 tablet with meals Procedures Procedure Coding System Code Date Office Visit, Est Pt., Level 3 CPT-4 19032 Feb 04, 2015 Vital Signs Date/Time: Feb 04, 2015 Temperature 97.8 F Weight 197.7 lbs Height 5'6 in BMI 38.61 Index Blood Pressure Diastolic 68 mmHg Blood Pressure Systolic 116 mmHg Cardiac Monitoring Heart Rate 80 bpm Results No Known Results Summary Purpose eClinicalWorks Submission
--- OUTSIDE RECORDS SUMMARY | 2017-02-28 11:52 | XMS REPORT ---
Author BRANDIN Wolff Organization [employer] Address Unknown Phone Unavailable Care Team Providers Care Pleasure Craft Sailor Name Role Phone BRANDIN HARDWICK CP Unavailable Allergies No Known Allergies Problems Problem Type Condition Code Onset Dates Condition Status Problem Atherosclerotic heart disease of [place] coronary [...] Instructions Start Date End Date Status Dosage Victoza [facility] [address]-81 18 MG/3ML Subcutaneous daily x one week, then 1.2 mg daily x one week then increase to 1.8 mg daily July 02, 2015 0.6mg Results No Known Results Summary Purpose eClinicalWorks Submission
[2017-02-28 11:58] VITALS: BP 107/69
[2017-02-28] MEDS ORDERED: MIDAZOLAM 2 MG/2 ML (VERSED) VIAL ONE (12:25)
[2017-02-28] MEDS ORDERED: PROPOFOL INJECTION 50 ML IV ONE ×2 (12:25→13:33)
--- NOTE | 2017-02-28 13:18 | Progress Note-Pre Operative ---
Pre-Operative Progress Note H&P Reviewed The H&P was reviewed, patient examined and no changes noted. Date Seen by Provider: Feb 28, 2017 Time Seen by Provider: 13:17 Date H&P Reviewed: Feb 28, 2017 Time H&P Reviewed: 13:17 Pre-Operative Diagnosis: chronic diarrhea, epigastric abdominal pain, gerd JAN YANEZ DO Feb 28, 2017 1:18 pm
--- NOTE | 2017-02-28 14:11 | Progress Note-Post Operative ---
Post-Operative Progess Note Surgeon (s)/It Admin (s) Surgeon JAN YANEZ DO It Admin: na Pre-Operative Diagnosis chronic diarrhea, epigastric abdominal pain, gerd Post-Operative Diagnosis gastric ulcers, ascending colon polyp Procedure & Operative Findings Date of Procedure 02/28/17 Procedure Performed/Findings egd c biopsies, colonoscopy with hot bx polypectomy random cold biopsies Anesthesia Type per round kiln drawer Estimated Blood Loss Estimated blood loss (mL): scant Specimens/Packing Specimens Removed antrum (ulcers), ascending colon polyp, random colon JAN YANEZ DO Feb 28, 2017 2:11 pm
[2017-02-28] MEDS ORDERED: PANT40TA2 PO ×2 (14:14)
[2017-02-28] MEDS ORDERED: SUCR1TAB36 PO ×2 (14:14)
[2017-02-28 14:15] VITALS: BP 115/69
--- NOTE | 2017-02-28 14:15 | Discharge Inst-Simple/Standard ---
Discharge Inst-Standard Discharge Medications New, Converted or Re-Newed RX: Transmitted to Pharmacy Patient Instructions/Follow Up Plan of Care/Instructions/FU: 2 weeks Andree Activity as Tolerated: Yes Discharge Diet: Regular Diet JAN YANEZ DO Feb 28, 2017 2:15 pm
[2017-02-28 14:45] VITALS: BP 108/63
[2017-02-28 14:52] VITALS: BP 108/63
--- NOTE | 2017-02-28 21:36 | OPERATIVE REPORT ---
DATE OF SERVICE: 02/28/2017 PREOPERATIVE DIAGNOSES: Epigastric abdominal pain, chronic diarrhea, gastroesophageal disease. POSTOPERATIVE DIAGNOSES: Antral ulcers, gastric ulcers, ascending colon polyp. PROCEDURE: EGD with biopsies, colonoscopy with hot biopsy polypectomy, random cold biopsies. SURGEON: Jan Candelario D.O. ANESTHESIA: Per MANAGER MEDICAL DEVICE. ESTIMATED BLOOD LOSS: Scant. COMPLICATIONS: None. INDICATIONS: The patient is a 56-year-old female in need of a colonoscopy due to chronic diarrhea and EGD due to epigastric abdominal pain incurred. She understands risks and benefits of procedure and wished to proceed with procedure. Consent was on chart. DESCRIPTION OF PROCEDURE: The patient was taken to the endoscopy suite, placed in left lateral recumbent position. Timeout was performed. Scope was inserted in mouth, down the esophagus and the stomach. The patient began to desaturate therefore, the scope was removed. Once her O2 saturation improved scope was reinserted into the mouth, down the esophagus, stomach and into the duodenum without difficulty. There were no polyps, mass or ulcerations within the duodenum. The scope was slowly retracted back into the stomach, which was further insufflated. There were a few small ulcers present within the antrum. Biopsies were obtained. The scope was retroflexed noting no other pathology. Scope was returned to its normal position, slowly withdrawn to the distal esophagus which had no polyps, masses or ulcerations or erythematous changes. Scope was slowly retracted back until completely removed, noting no other pathology. Digital rectal exam was then performed. The colonoscope was inserted in the rectum and advanced all the way to cecum with minimal difficulty. The prep was adequate with irrigation and suction. Scope was then slowly retracted back. There were no polyps, masses or ulcerations in the cecum. Within the ascending colon, a small polyp which hot biopsy polypectomy was performed. Scope was continued slowly retracted back. There were no polyps, masses or ulcerations within the transverse, descending or sigmoid colon. As the scope was being retracted back random cold biopsies were obtained as well. Once in the rectum, scope was also retroflexed noting no other pathology. Scope was returned to its normal position, slowly withdrawn until completely removed. RECOMMENDATIONS: The patient will need repeat colonoscopy in 5 years unless she has any problems before that. The patient will be started on Protonix and Carafate. Protonix 40 mg twice a day for two weeks and then once per day from then on. Carafate 1 gram four times a day for one month. The patient will follow up in the office in two weeks to discuss pathology results and see how her symptoms are doing at that time. Job ID: [id number] DocumentID: [id number] Dictated Date: 02/28/2017 14:19:20 Finance Assistant Date: 02/28/2017 21:35:01 Dictated By: JAN CANDELARIO DO
== END 2017-02-28 14:55 | disposition home or self-care (01) ==
LOC: ENDO 11:38
PROVIDERS: ATTEND Surgery
DX: K52.9 Noninfective gastroenteritis and colitis, unspecified (principal); D12.2 Benign neoplasm of ascending colon; K63.89 Other specified diseases of intestine; K25.9 Gastric ulcer, unspecified as acute or chronic, without hemorrhage or perforation; K21.9 Gastro-esophageal reflux disease without esophagitis; I25.10 Atherosclerotic heart disease of native coronary artery without angina pectoris; J44.9 Chronic obstructive pulmonary disease, unspecified; F17.210 Nicotine dependence, cigarettes, uncomplicated; I11.9 Hypertensive heart disease without heart failure; F32.9 Major depressive disorder, single episode, unspecified; Z79.84 Long term (current) use of oral hypoglycemic drugs; Z79.899 Other long term (current) drug therapy; Z95.5 Presence of coronary angioplasty implant and graft

== ENCOUNTER → 2017-03-02 | Outpatient (CLI) | payer MEDICAID ==
[~2017-03-02] MED LIST changes: +PANT40TA2 PO; +SUCR1TAB36 PO
== END ==
LOC: RAD 14:29
PROVIDERS: ATTEND Nurse Practitioner Family
DX: Z12.31 Encounter for screening mammogram for malignant neoplasm of breast (principal)

== ENCOUNTER 2017-03-17 19:54 | Inpatient (IN) | payer MEDICAID ==
[~2017-03-17] VITALS: Ht 167.6 cm; Wt 86.4 kg
[~2017-03-17 19:54] MED LIST changes: +ACHD5005 PO; -HYDR-3812 PO
[2017-03-17] MEDS ORDERED: morphine INJ 10 MG/ML 1ML (SYR OR VIAL) ONE (19:57)
[2017-03-17] MEDS ORDERED: morphine INJ 10 MG/ML 1ML (SYR OR VIAL) IV STA (20:00)
[2017-03-17] MEDS ORDERED: LACTATED RINGERS 1,000 ML IV ONE (20:00)
[2017-03-17] MEDS ORDERED: NS IV 1000 ML 1,000 ML IV ONE (20:00)
--- NOTE | 2017-03-17 20:12 | ED Chest Pain ---
General Stated Complaint: CHEST PAIN Source: patient, EMS Exam Limitations: no limitations History of Present Illness Time seen by provider: 19:54 Initial Comments Patient presents to ER by EMS with a chief complaint that about 1900, half an hour prior to arrival she began to experience severe chest pain worse and she never had before with her prior heart attacks. Her last stent was about to 3 years ago. She is known to Dr. Best, cardiology. She is also having shortness of breath some chills earlier today and increasing productive coughing for the past day or 2 and she's been using her albuterol treatment multiple times today she is also reduced her smoking down to about 6 cigarettes today and she was concerned she might have pneumonia. She did take 2 subsequent tablets of nitroglycerin made no difference in her chest pain and then when EMS arrived they said her blood pressure was normal the gave her a dose of nitroglycerin and that brought her pain from a 9 down to a 7 on a scale of 0-10. She was having some nausea when the pain was at its worst as well as shortness of breath. EMS started her on oxygen as she was 87% on room air. She says she does wear oxygen at night sleep but no CPAP or BiPAP. She also has a history of diabetes on Victoza and no thyroid problems. She has high blood pressure typically which she uses her medicines for routinely. She is not on any blood thinners. Patient has not been recently on any steroids or antibiotics. Allergies and Home Medications Allergies Coded Allergies: adhesive tape (Verified Allergy, Unknown, HIVES, 02/21/17) montelukast (Verified Allergy, Unknown, DIZZY AND DROWSY, CONFUSION, ) Sulfa (Sulfonamide Antibiotics) (Unverified Adverse Reaction, Intermediate , 02/21/17) Home Medications Albuterol Sulfate 2.5 Mg/0.5 Ml Vial.neb, 2.5 MG IH QID PRN for SHORTNESS OF BREATH, (Reported) Albuterol Sulfate 18 Gm Hfa.aer.ad, 2 PUFF IH Q4H PRN for SHORTNESS OF BREATH, ( Reported) Aspirin 81 Mg Tab.chew, 81 MG PO DAILY, (Reported) Baclofen 10 Mg Tablet, 10 MG PO TID, (Reported) Budesonide/Formoterol Fumarate 10.2 Gm Hfa.aer.ad, 2 PUFF IH BID, (Reported) Buspirone HCl 10 Mg Tablet, 10 MG PO DAILY, (Reported) Cetirizine HCl 10 Mg Tablet, 10 MG PO DAILY, (Reported) Cholecalciferol (Vitamin D3) 2,000 Unit Tablet, 2,000 UNIT PO DAILY, (Reported) Citalopram Hydrobromide 20 Mg Tablet, 20 MG PO DAILY, (Reported) Fish Oil/Dha/Epa 1 Each Capsule, 1,200 MG PO DAILY, (Reported) Folic Acid 1 Mg Tablet, 1 MG PO DAILY, (Reported) Gemfibrozil 600 Mg Tablet, 600 MG PO BID, (Reported) Guaifenesin 600 Mg Tab.er.12h, 600 MG PO Q12H PRN for CONGESTION, (Reported) Hydrocodone/Acetaminophen 1 Each Tablet, 1 TAB PO Q4H PRN for PAIN, #30 Prescribed by: CONNIE LONGO on 05/25/16 1228 Hydroxychloroquine Sulfate 200 Mg Tablet, 200 MG PO DAILY, (Reported) Liraglutide 0.6 Mg/0.1 Ml Pen.injctr, 1.8 MG SQ DAILY, (Reported) Lisinopril 20 Mg Tablet, 20 MG PO DAILY, (Reported) Metformin HCl 1,000 Mg Tablet, 1,000 MG PO BID, (Reported) Methotrexate Sodium 2.5 Mg Tablet, 20 MG PO WEEK, (Reported) take 8 (2.5mg) tabs, takes on Monday Metoprolol Tartrate 25 Mg Tablet, 25 MG PO BID, (Reported) Mometasone Furoate 17 Gm Naspr, 2 SPRAYS NS HS, (Reported) Naproxen Sodium 220 Mg Tablet, 220 MG PO BID, (Reported) Nitroglycerin 0.4 Mg Tab.subl, 0.4 MG SL BID PRN PRN for CHEST PAIN, #30 Ref 3 Prescribed by: ARVIND BEST on 08/02/15 0811 Pantoprazole Sodium 40 Mg Tablet.dr, 40 MG PO BID, #60 After 2 weeks start taking 1 pill per day instead of 1 twice a day. Prescribed by: JAN YANEZ on 02/28/17 1414 Pregabalin 100 Mg Capsule, 100 MG PO TID, (Reported) Sucralfate 1 Gm Tablet, 1 GM PO Q6H, #120 Prescribed by: JAN YANEZ on 02/28/17 1414 Trazodone HCl 50 Mg Tablet, 50 MG PO HS, (Reported) Review of Systems Constitutional: No chills, No diaphoresis EENTM: No Blurred Vision, No Double Vision, No Mouth Swelling, No Nose Congestion, No Throat Pain Respiratory: Cough (productive yellow sputum), Shortness of Air, Denies Stridor , Denies Wheezing Cardiovascular: See HPI, Chest Pain, Denies Edema, Denies Palpitations, Denies Syncope Gastrointestinal: Denies Abdominal Pain, Denies Constipated, Denies Diarrhea, Nausea, Denies Vomiting Genitourinary: Denies Burning, Denies Discharge Musculoskeletal: No back pain, No joint pain Skin: No pruritus, No rash Psychiatric/Neurological: Denies Headache, Denies Numbness, Denies Paresthesia Hematologic/Lymphatic: Denies Anemia, Denies Blood Clots, Denies Swollen Glands Past Hysqlls-Dvfkoe-Ggiqhr Hx Patient Social History Alcohol Use: Denies Use Recreational Drug Use: No Smoking Status: Current Everyday Smoker Type Used: Cigarettes (0.25 ppd) Recent Foreign Travel: No Contact w/Someone Who Travel: No Recent Hopitalizations: No Immunizations Up To Date Tetanus Booster (TDap): Unknown Date of Pneumonia Vaccine: Dec 23, 2016 Date of Influenza Vaccine: Dec 23, 2016 Seasonal Allergies Seasonal Allergies: Yes Surgeries Surgeries: Coronary Stent, Gallbladder, Hysterectomy, Tonsillectomy Respiratory Respiratory Disorders: COPD Currently Using CPAP: No Currently Using BIPAP: No Cardiovascular Cardiac Disorders: Coronary Artery Disease, Heart Attack, Hypertension Neurological Neurological Disorders: Stroke Reproductive System Hx Reproductive Disorders: No Sexually Transmitted Disease: No HIV/AIDS: 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 Gastrointestinal Gastrointestinal Disorders: Gastroesophageal Reflux, Chronic Diarrhea Musculoskeletal Musculoskeletal Disorders: Arthritis, Rheumatoid Arthritis, Chronic Back Pain Endocrine Endocrine Disorders: Diabetes, Non-Insulin dep HEENT Loss of Vision: Denies Hearing Impairment: Denies Psychosocial Behavioral Health Disorders: Anxiety, Depression Blood Transfusions Adverse Reaction to a Blood Tr: No (N/A) Family Medical History Significant Family History: No Pertinent Family Hx Physical Exam Vital Signs Vital Sign - Last 12Hours Capillary Refill : General Appearance: Moderate Distress, Obese HEENT: PERRL/EOMI, Normal ENT Inspection, Pharynx Normal (oral mucosa is dry), No Moist Mucous Membranes Neck: Full Range of Motion, Non Tender, Supple Respiratory: Chest Non Tender, No Accessory Muscle Use, No Respiratory Distress , Decreased Breath Sounds, Wheezing (few) Cardiovascular: Regular Rate, Rhythm, No Edema, No JVD, No Murmur, Normal Peripheral Pulses Gastrointestinal: Normal Bowel Sounds, Non Tender, Soft Extremity: Normal Capillary Refill, Normal Inspection, Non Tender, No Calf Tenderness, No Pedal Edema Neurologic/Psychiatric: Alert, Oriented x3, No Motor/Sensory Deficits Skin: Normal Color, Warm/Dry Focused Exam Evaluation Lactate Level Laboratory Tests 03/17/17 20:05: Lactic Acid Level 2.61*H Time of Focused Exam: 21:50 Respiratory: Normal Breath Sounds, No Accessory Muscle Use, No Respiratory Distress, Decreased Breath Sounds, 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) Cardiovascular: Regular Rate, Rhythm, No JVD, No Murmur, Normal Peripheral Pulses Peripheral Pulses: 2+ Radial Pulses (R), 2+ Radial Pulses (L) Skin: normal color, warm/dry, No rash Lactic Acid Level Laboratory Tests Test 03/17/17 20:05 Lactic Acid Level 2.61 MMOL/L (0.50-2.00) *H Progress/Results/Core Measures Results/Orders Lab Results Laboratory Tests Test 03/17/17 20:05 Range/Units White Blood Count 13.6 H 4.3-11.0 10^3/uL Red Blood Count 5.35 4.35-5.85 10^6/uL Hemoglobin 15.6 11.5-16.0 G/DL Hematocrit 46 35-52 % Mean Corpuscular Volume 85 80-99 FL Mean Corpuscular Hemoglobin 29 25-34 PG Mean Corpuscular Hemoglobin Concent 34 32-36 G/DL Red Cell Distribution Width 14.9 H 10.0-14.5 % Platelet Count 269 130-400 10^3/uL Mean Platelet Volume 10.7 H 7.4-10.4 FL Neutrophils (%) (Auto) 73 42-75 % Lymphocytes (%) (Auto) 20 12-44 % Monocytes (%) (Auto) 5 0-12 % Eosinophils (%) (Auto) 2 0-10 % Basophils (%) (Auto) 0 0-10 % Neutrophils # (Auto) 9.9 H 1.8-7.8 X 10^3 Lymphocytes # (Auto) 2.8 1.0-4.0 X 10^3 Monocytes # (Auto) 0.6 0.0-1.0 X 10^3 Eosinophils # (Auto) 0.3 0.0-0.3 10^3/uL Basophils # (Auto) 0.1 0.0-0.1 10^3/uL Prothrombin Time 12.6 12.2-14.7 SEC INR Comment 0.9 0.8-1.4 Activated Partial Thromboplast Time 26 24-35 SEC D-Dimer 0.31 0.00-0.49 UG/ML Sodium Level 141 135-145 MMOL/L Potassium Level 3.5 L 3.6-5.0 MMOL/L Chloride Level 101 98-107 MMOL/L Carbon Dioxide Level 29 21-32 MMOL/L Anion Gap 11 5-14 MMOL/L Blood Urea Nitrogen 9 7-18 MG/DL Creatinine 0.78 0.60-1.30 MG/DL Estimat Glomerular Filtration Rate > 60 BUN/Creatinine Ratio 12 Glucose Level 128 H 70-105 MG/DL Lactic Acid Level 2.61 *H 0.50-2.00 MMOL/L Calcium Level 9.6 8.5-10.1 MG/DL Magnesium Level 1.6 L 1.8-2.4 MG/DL Total Bilirubin 0.5 0.1-1.0 MG/DL Aspartate Amino Transf (AST/SGOT) 18 5-34 U/L Alanine Aminotransferase (ALT/SGPT) 18 0-55 U/L Alkaline Phosphatase 58 40-136 U/L Myoglobin 22.8 10.0-92.0 NG/ML Troponin I < 0.30 <0.30 NG/ML C-Reactive Protein High Sensitivity 0.44 0.00-0.50 MG/DL Total Protein 6.5 6.4-8.2 GM/DL Albumin 3.8 3.2-4.5 GM/DL My Orders Orders - MARIANNA MARY Cbc With Automated Diff (03/17/17 20:00) Magnesium (03/17/17 20:00) Ekg Tracing (03/17/17 20:00) Cardiac Profile 1 (03/17/17 20:00) Comprehensive Metabolic Panel (03/17/17 20:00) Myoglobin Serum (03/17/17 20:00) Protime With Inr (03/17/17 20:00) Partial Thromboplastin Time (03/17/17 20:00) O2 (03/17/17 20:00) Monitor-Rhythm Ecg Trace Only (03/17/17 20:00) Lipid Panel (03/18/17 06:00) Morphine Injection (Morphine Injection (03/17/17 20:00) Saline Lock/Iv-Start (03/17/17 20:00) Fibrin Degradation Products (03/17/17 20:00) Lactic Acid Analyzer (03/17/17 20:00) Blood Culture (03/17/17 20:00) Sputum Culture (03/17/17 20:00) Ua Culture If Indicated (03/17/17 20:00) O2 (03/17/17 20:00) Saline Lock/Iv-Start (03/17/17 20:00) Saline Lock/Iv-Start (03/17/17 20:00) Vital Signs Adult Sepsis Patie Q1H (03/17/17 20:00) Remove Rings In Anticipation O (03/17/17 20:00) Chest Pa/Lat (2 View) (03/17/17 20:00) Hs C Reactive Protein (03/17/17 20:00) Ns Iv 1000 Ml (Sodium Chloride 0.9%) (03/17/17 20:00) Lactated Ringers (Lr 1000 Ml Iv Solution (03/17/17 20:00) Albuterol/Ipra Inhalation Soln (Duoneb I (03/17/17 20:15) Svn Sm Volume Nebulizer Rt-Rfs (03/17/17 20:13) Ceftriaxone Injection (Rocephin Injectio (03/17/17 20:45) Medications Given in ED Current Medications Medications Dose Ordered Sig/Hector Route Start Time Stop Time Status Last Admin Dose Admin Albuterol/ Ipratropium 3 ml ONCE ONCE INH 03/17/17 20:15 03/17/17 20:16 DC 03/17/17 20:30 3 ML Ceftriaxone Sodium 1000 mg/ Sodium Chloride 50 ml @ 100 mls/hr ONCE ONCE IV 03/17/17 20:45 03/17/17 21:14 DC 03/17/17 20:57 100 MLS/HR Lactated Ringer's 1,000 ml @ 0 mls/hr Q0M ONCE IV 03/17/17 20:00 03/17/17 20:04 DC 03/17/17 20:18 1,000 MLS/HR Sodium Chloride 1,000 ml @ 0 mls/hr Q0M ONCE IV 03/17/17 20:00 03/17/17 20:04 DC 03/17/17 20:53 1,000 MLS/HR Vital Signs/I&O Vital Sign - Last 12Hours 03/17/17 03/17/17 03/17/17 19:54 19:54 20:31 Temp 97.8 Pulse 96 Resp 20 B/P (MAP) 116/60 (78) Pulse Ox 87 91 O2 Delivery Room Air Nasal Cannula OxyMask O2 Flow Rate 3.00 2.0 2.00 Progress Note : Time: 20:23 Progress Note Nitroglycerin did not cause any change in her pain significantly and her pain is reproduced on direct palpation to her sternum and deep inspiration. Her productive cough but think more about pneumonia. Perhaps her taking all the beta adrenergic nebulizers today may have set off her heart but we intend to include in her differential COPD exacerbation versus pneumonia. We'll go ahead and give her a single DuoNeb or waiting for the troponin levels. Some morphine has improved her pain level significantly. She was 87% on room air so we put her on oxygen mask at 3 L to keep her sats up and she still satting in the low 90s. Echocardiogram reviewed from Dr. Best. April 2016 IN CONCLUSION: 1. Normal left ventricular size and systolic function. Mild hypertrophy noted at the base of the septum. Estimated ejection fraction 60%. 2. Mild mitral regurgitation. Mild tricuspid regurgitation. 3. Estimated pulmonary artery pressure of 10 to 15 mmHg. ECG Initial ECG Impression Date: Mar 17, 2017 Initial ECG Impression Time: 20:00 Initial ECG Rate: 94 Initial ECG Rhythm: Normal Sinus Initial ECG Intervals: MS (224) Initial ECG Impression: Nonspecific Changes, 1st Degree AV Block Initial ECG Comparisson: Unchanged Comment No T-wave elevation or depression. Diagnostic Imaging Diagonstic Imaging: Xray Plain Films/CT/US/NM/MRI: chest (2v) Comments NAME: ARIEL MACIEL [facility] REC#: [id number] PHYSICIAN: MARIANNA MARY MD CC: VIK RUBIN; MARIANNA MARY Page 1 of 1 RADIOLOGY REPORT VIA [facility]. [place], [place] CC: VIK RUBIN; MARIANNA MARY Page 1 of 1 RADIOLOGY REPORT NAME: ARIEL MACIEL [facility] REC#: [id number] PT STATUS: REG ER : 1960 PHYSICIAN: MARIANNA MARY MD ADMIT DATE: 03/17/17/ER Signed Date of Exam: 03/17/17 CHEST PA/LAT (2 VIEW) INDICATION: Shortness of breath COMPARISON: 08/01/2015 FINDINGS: Frontal and lateral views of the chest demonstrate cardiac enlargement with slight central vascular congestion. There is no pneumothorax, effusion or focal infiltrates. Osseous structures normal. IMPRESSION: Cardiac enlargement with slight central vascular congestion Dictated by: Dictated on workstation # [id number] Dict: 03/17/172045 Trans: 03/17/172057 Interpreted by: VIK RUBIN Electronically signed by: VIK RUBIN 03/17/172057 Reviewed: Reviewed by Me Departure Communication (Admissions) Time/Spoke to Admitting Phy: 21:[address] Banks and discussed case lab imaging and findings and she is okay with antibiotics and chest pain workup and she will see the patient. Impression Impression: Primary Impression: Chest pain Qualified Codes: R07.1 - Chest pain on breathing Additional Impressions: ACS (acute coronary syndrome) Pneumonia Qualified Codes: J18.9 - Pneumonia, unspecified organism Acute and chronic respiratory failure with hypoxia Sepsis Qualified Codes: A41.9 - Sepsis, unspecified organism Disposition: ADMITTED INPATIENT Condition: Stable Admissions Decision to Admit Reason: Admit from ER (General) Decision to Admit/Date: Mar 17, 2017 Time/Decision to Admit Time: 21:42 Departure-Patient Inst. Referrals: [facility] (PCP) Primary Care Physician CLAU DELEON APRN (Family) Primary Care Physician Copy Copies To 1: JESSICA DALEY TITUS J Mar 17, 2017 20:12
[2017-03-17 20:15] LABS: BASOPHILS # (AUTO) 0.1 10^3/uL (0.0-0.1); BASOPHILS % (AUTO) 0 % (0-10); EOSINOPHILS # (AUTO) 0.3 10^3/uL (0.0-0.3); EOSINOPHILS % (AUTO) 2 % (0-10); HEMATOCRIT 46 % (35-52); HEMOGLOBIN 15.6 G/DL (11.5-16.0); LYMPHOCYTES # (AUTO) 2.8 X 10^3 (1.0-4.0); LYMPHOCYTES % (AUTO) 20 % (12-44); MEAN CORPUSCULAR HEMOGLOBIN 29 PG (25-34); MEAN CORPUSCULAR HGB CONC 34 G/DL (32-36); MEAN CORPUSCULAR VOLUME 85 FL (80-99); MEAN PLATELET VOLUME 10.7 FL (7.4-10.4); MONOCYTES # (AUTO) 0.6 X 10^3 (0.0-1.0); MONOCYTES % (AUTO) 5 % (0-12); NEUTROPHILS # (AUTO) 9.9 X 10^3 (1.8-7.8); NEUTROPHILS % (AUTO) 73 % (42-75); PLATELET COUNT 269 10^3/uL (130-400); RED BLOOD COUNT 5.35 10^6/uL (4.35-5.85); RED CELL DISTRIBUTION WIDTH 14.9 % (10.0-14.5); WHITE BLOOD COUNT 13.6 10^3/uL (4.3-11.0)
[2017-03-17] MEDS ORDERED: RT-ALBUTEROL/IPRATROPIUM 3 ML (DUONEB) VIAL INH ONE (20:15)
[2017-03-17 20:26] LABS: INR 0.9 (0.8-1.4); PROTHROMBIN TIME PATIENT 12.6 SEC (12.2-14.7)
[2017-03-17 20:35] LABS: ALANINE AMINOTRANSFERASE 18 U/L (0-55); ALBUMIN 3.8 GM/DL (3.2-4.5); ALKALINE PHOSPHATASE 58 U/L (40-136); BILIRUBIN,TOTAL 0.5 MG/DL (0.1-1.0); BUN/CREATININE RATIO 12; CALCIUM 9.6 MG/DL (8.5-10.1); CARBON DIOXIDE 29 MMOL/L (21-32); CHLORIDE 101 MMOL/L (98-107); CREATININE SERUM 0.78 MG/DL (0.60-1.30); GFR ESTIMATED > 60; GLUCOSE 128 MG/DL (70-105); MAGNESIUM 1.6 MG/DL (1.8-2.4); POTASSIUM 3.5 MMOL/L (3.6-5.0); SODIUM 141 MMOL/L (135-145); TOTAL PROTEIN 6.5 GM/DL (6.4-8.2)
[2017-03-17 20:42] LABS: MYOGLOBIN SERUM 22.8 NG/ML (10.0-92.0)
[2017-03-17] MEDS ORDERED: cefTRIAXone INJECTION 1,000 MG in NS (IVPB) 50 ML IV ONE (20:45)
--- NOTE | 2017-03-17 20:49 | Diagnostic Imaging Report ---
INDICATION: Shortness of breath COMPARISON: 08/01/2015 FINDINGS: Frontal and lateral views of the chest demonstrate cardiac enlargement with slight central vascular congestion. There is no pneumothorax, effusion or focal infiltrates. Osseous structures normal. IMPRESSION: Cardiac enlargement with slight central vascular congestion Dictated by: Dictated on workstation # [id number]
--- OUTSIDE RECORDS SUMMARY | 2017-03-17 22:07 | XMS REPORT | Clinical Summary ---
Author Author [facility] Organization [facility] Address Unknown Phone Unavailable Care Team Providers Care Orthotic Aide Name Role Phone PCP Unavailable Source Comments Some departments are not documenting in the electronic medical record. If you do not see the information that you expected, contact Release of Information in the Health Information Management department at [phone] for further assistance in locating additional records.[facility] Allergies Active Allergy Reactions Severity Noted Date [...]
--- OUTSIDE RECORDS SUMMARY | 2017-03-17 22:13 | XMS REPORT | Continuity of Care Document ---
Author Author [facility] Organization [facility] Address Unknown Phone Unavailable Allergies Active Description Code Type Severity Reaction Onset Reported/Identified Relationship to Patient Clinical Status Yes Sulfa (Sulfonamide Antibiotics) [id number] Drug Allergy Moderate N/A 2016 Yes adhesive tape [id number] Drug Allergy Unknown HIVES 02/21/2017 Yes montelukast [id number] Drug Allergy Unknown DIZZY AND DROWS 02/21/2017 Medications There is no data. Problems Date Dx Coded Attending Type Code Diagnosis Diagnosed By 10/19/2014 ASHUTOSH DONIS MD Ot 462 ACUTE PHARYNGITIS 10/19/2014 ASHUTOSH DONIS MD Ot 786.39 OTHER HEMOPTYSIS 10/19/2014 ASHUTOSH DONIS MD Ot 786.9 RESP SYS/CHEST SYMP NEC 01/19/2015 ARVIND CASTELLANOS MD Ot E78.5 01/19/2015 ARVIND CASTELLANOS MD Ot I10 01/19/2015 ARVIND CASTELLANOS MD Ot I25.10 01/19/2015 ARVIND CASTELLANOS MD Ot R07.9 01/28/2015 ARVIND CASTELLANOS MD Ot E78.5 01/28/2015 ARVIND CASTELLANOS MD Ot I10 01/28/2015 ARVIND CASTELLANOS MD Ot I25.10 01/28/2015 ARVIND CASTELLANOS MD Ot R07.9 01/28/2015 RODERICK LILLY Ot E78.5 01/28/2015 RODERICK LILLY Ot I10 01/28/2015 RODERICK LILLY Ot I25.10 01/28/2015 RODERICK LILLY Ot R07.9 01/28/2015 ARVIND CASTELLANOS MD Ot E11.9 TYPE 2 DIABETES MELLITUS WITHOUT COMPLIC 01/28/2015 ARVIND CASTELLANOS MD Ot E66.9 OBESITY, UNSPECIFIED 01/28/2015 ARVIND CASTELLANOS MD Ot E78.5 HYPERLIPIDEMIA, UNSPECIFIED 01/28/2015 ARVIND CASTELLANOS MD Ot F17.200 NICOTINE DEPENDENCE, UNSPECIFIED, UNCOMP 01/28/2015 ARVIND CASTELLANOS MD Ot I10 ESSENTIAL (PRIMARY) HYPERTENSION 01/28/2015 ARVIND CASTELLANOS MD Ot I25.10 ATHSCL HEART DISEASE OF [place] CORONARY 01/28/2015 ARVIND CASTELLANOS MD Ot R07.89 OTHER CHEST PAIN 01/28/2015 ARVIND CASTELLANOS MD Ot R94.39 ABNORMAL RESULT OF OTHER CARDIOVASCULAR 01/28/2015 ARVIND CASTELLANOS MD Ot Z68.31 BODY MASS INDEX (BMI) 31.0-31.9, ADULT 01/28/2015 ARVIND CASTELLANOS MD Ot Z79.4 [facility] (CURRENT) USE OF INSULIN 01/28/2015 ARVIND CASTELLANOS MD Ot Z79.899 OTHER [facility] (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 THERAPY 01/28/2015 ARVIND CASTELLANOS MD Ot Z98.61 CORONARY ANGIOPLASTY STATUS 01/30/2015 ARVIND CASTELLANOS MD Ot E78.5 01/30/2015 ARVIND CASTELLANOS MD Ot I10 01/30/2015 ARVIND CASTELLANOS MD Ot I25.10 01/30/2015 ARVIND CASTELLANOS MD Ot R07.9 02/20/2015 RODERICK LILLY Ot E78.5 02/20/2015 RODERICK LILLY Ot I10 02/20/2015 RODERICK LILLY Ot I25.10 02/20/2015 RODERICK LILLY Ot R07.9 05/15/2015 ARVIND CASTELLANOS MD Ot E78.5 05/15/2015 ARVIND CASTELLANOS MD Ot I10 05/15/2015 ARVIND CASTELLANOS MD Ot I25.10 05/15/2015 ARVIND CASTELLANOS MD Ot R07.9 05/15/2015 RODERICK LILLY Ot E78.5 05/15/2015 RODERICK LILLY Ot I10 05/15/2015 RODERICK LILLY Ot I25.10 05/15/2015 DAMIAN PA, RODERICK Delgadillo Ot R07.9 05/27/2015 DAMIAN MEDRANO, RODERICK Delgadillo Ot E78.0 05/27/2015 DAMIAN MEDRANO, RODERICK Delgadillo Ot E78.2 05/27/2015 DAMIAN MEDRANO, RODERICK K Ot I10 05/27/2015 DAMIAN MEDRANO, RODERICK Delgadillo Ot I25.10 05/27/2015 DAMIAN MEDRANO, RODERICK K Ot R07.89 08/02/2015 VALDEZ MCDONNELL MD Ot E11.9 TYPE 2 DIABETES MELLITUS WITHOUT COMPLIC 08/02/2015 VALDEZ MCDONNELL MD Ot E78.5 HYPERLIPIDEMIA, UNSPECIFIED 08/02/2015 VALDEZ MCDONNELL MD Ot E87.6 HYPOKALEMIA 08/02/2015 VALDEZ MCDONNELL MD Ot I10 ESSENTIAL (PRIMARY) HYPERTENSION 08/02/2015 VALDEZ MCDONNELL MD Ot I25.10 ATHSCL HEART DISEASE OF [place] CORONARY 08/02/2015 VALDEZ MCDONNELL MD Ot J44.9 CHRONIC OBSTRUCTIVE PULMONARY DISEASE, U 08/02/2015 VALDEZ MCDONNELL MD Ot M06.9 RHEUMATOID ARTHRITIS, UNSPECIFIED 08/02/2015 VALDEZ MCDONNELL MD Ot R07.9 CHEST PAIN, UNSPECIFIED 08/02/2015 VALDEZ MCDONNELL MD Ot Z95.5 PRESENCE OF CORONARY ANGIOPLASTY IMPLANT 09/18/2015 CLAU DELEON INSULATION WORKER APPRENTICE Ot R10.11 RIGHT UPPER QUADRANT PAIN 09/23/2015 CLAU DELEON INSULATION WORKER APPRENTICE Ot R10.11 RIGHT UPPER QUADRANT PAIN 09/23/2015 CLAU DELEON INSULATION WORKER APPRENTICE Ot R10.11 RIGHT UPPER QUADRANT PAIN 09/25/2015 SHERITA PATTERSON Ot S62.002A UNSP FRACTURE OF NAVICULAR BONE OF LEFT 09/25/2015 SHERITA PATTERSON Ot X58.XXXA EXPOSURE TO OTHER SPECIFIED FACTORS, INI 09/25/2015 SHERITA PATTERSON MONKEY TRAINER Ot Y99.8 OTHER EXTERNAL CAUSE STATUS 09/29/2015 SHERITA PATTERSON Ot S62.002A UNSP FRACTURE OF NAVICULAR BONE OF LEFT 09/29/2015 SHERITA PATTERSON MONKEY TRAINER Ot X58.XXXA EXPOSURE TO OTHER SPECIFIED FACTORS, INI 09/29/2015 SHERITA PATTERSON MONKEY TRAINER Ot Y99.8 OTHER EXTERNAL CAUSE STATUS 09/30/2015 SHERITA PATTERSON MONKEY TRAINER Ot S62.002A UNSP FRACTURE OF NAVICULAR BONE OF LEFT 09/30/2015 SHERITA PATTERSON MONKEY TRAINER Ot X58.XXXA EXPOSURE TO OTHER SPECIFIED FACTORS, INI 09/30/2015 SHERITA PATTERSON MONKEY TRAINER Ot Y99.8 OTHER EXTERNAL CAUSE STATUS 09/30/2015 SHERITA PATTERSON MONKEY TRAINER Ot S62.002A UNSP FRACTURE OF NAVICULAR BONE OF LEFT 09/30/2015 SHERITA PATTERSON MONKEY TRAINER Ot X58.XXXA EXPOSURE TO OTHER SPECIFIED FACTORS, INI 09/30/2015 SHERITA PATTERSON MONKEY TRAINER Ot Y99.8 OTHER EXTERNAL CAUSE STATUS 10/06/2015 CLAU DELEON APRN Ot R10.11 RIGHT UPPER QUADRANT PAIN 10/06/2015 SHERITA PATTERSON MONKEY TRAINER Ot S62.002A UNSP FRACTURE OF NAVICULAR BONE OF LEFT 10/06/2015 SHERITA PATTERSON MONKEY TRAINER Ot X58.XXXA EXPOSURE TO OTHER SPECIFIED FACTORS, INI 10/06/2015 SHERITA PATTERSON MONKEY TRAINER Ot Y99.8 OTHER EXTERNAL CAUSE STATUS 01/01/2016 CLAU DELEON APRN Ot R93.6 ABNORMAL FINDINGS ON DIAGNOSTIC IMAGING 01/01/2016 CLAU DELEON INSULATION WORKER APPRENTICE Ot Z13.820 ENCOUNTER FOR SCREENING FOR OSTEOPOROSIS 01/01/2016 CLAU DELEON INSULATION WORKER APPRENTICE Ot R93.6 ABNORMAL FINDINGS ON DIAGNOSTIC IMAGING 01/01/2016 CLAU DELEON INSULATION WORKER APPRENTICE Ot Z13.820 ENCOUNTER FOR SCREENING FOR OSTEOPOROSIS 01/05/2016 CLAU DELEON INSULATION WORKER APPRENTICE Ot G47.10 HYPERSOMNIA, UNSPECIFIED 01/05/2016 CLAU DELEON APRN Ot I10 ESSENTIAL (PRIMARY) HYPERTENSION 01/05/2016 CLAU DELEON APRN Ot I25.10 ATHSCL HEART DISEASE OF [place] CORONARY 01/05/2016 CLAU DELEON INSULATION WORKER APPRENTICE Ot R06.83 SNORING 01/05/2016 CLAU DELEON INSULATION WORKER APPRENTICE Ot Z95.5 PRESENCE OF CORONARY ANGIOPLASTY IMPLANT 01/05/2016 DELEONCLAU Moran Vincenzo INSULATION WORKER APPRENTICE Ot G47.10 HYPERSOMNIA, UNSPECIFIED 01/05/2016 CLAU DELEON INSULATION WORKER APPRENTICE Ot I10 ESSENTIAL (PRIMARY) HYPERTENSION 01/05/2016 DELEONCLAU INSULATION WORKER APPRENTICE Ot I25.10 ATHSCL HEART DISEASE OF [place] CORONARY 01/05/2016 CLAU DELEON INSULATION WORKER APPRENTICE Ot R06.83 SNORING 01/05/2016 CLAU DELEON INSULATION WORKER APPRENTICE Ot Z95.5 PRESENCE OF CORONARY ANGIOPLASTY IMPLANT 01/12/2016 CLAU DELEON INSULATION WORKER APPRENTICE Ot R93.6 ABNORMAL FINDINGS ON DIAGNOSTIC IMAGING 01/12/2016 CLAU DELEON INSULATION WORKER APPRENTICE Ot Z13.820 ENCOUNTER FOR SCREENING FOR OSTEOPOROSIS 03/03/2016 CARLOS HORTON MD Ot M65.4 RADIAL STYLOID TENOSYNOVITIS [DE QUERVAI 03/03/2016 CARLOS HORTON MD Ot Z01.818 ENCOUNTER FOR OTHER PREPROCEDURAL EXAMIN 03/03/2016 CARLOS HORTON MD Ot Z11.2 ENCOUNTER FOR SCREENING FOR OTHER BACTER 03/23/2016 CARLOS HORTON MD Ot E11.9 TYPE 2 DIABETES MELLITUS WITHOUT COMPLIC 03/23/2016 CARLOS HORTON MD Ot F17.210 NICOTINE DEPENDENCE, CIGARETTES, UNCOMPL 03/23/2016 CARLOS HORTON MD Ot I10 ESSENTIAL (PRIMARY) HYPERTENSION 03/23/2016 CARLOS HORTON MD Ot I25.10 ATHSCL HEART DISEASE OF [place] CORONARY 03/23/2016 CARLOS HORTON MD Ot J44.9 CHRONIC OBSTRUCTIVE PULMONARY DISEASE, U 03/23/2016 CARLOS HORTON MD Ot M06.9 RHEUMATOID ARTHRITIS, UNSPECIFIED 03/23/2016 CARLOS HORTON MD Ot M65.4 RADIAL STYLOID TENOSYNOVITIS [DE QUERVAI 03/24/2016 CARLOS HORTON MD Ot E11.9 TYPE 2 DIABETES MELLITUS WITHOUT COMPLIC 03/24/2016 CARLOS HORTON MD Ot F17.210 NICOTINE DEPENDENCE, CIGARETTES, UNCOMPL 03/24/2016 CARLOS HORTON MD Ot I10 ESSENTIAL (PRIMARY) HYPERTENSION 03/24/2016 CARLOS HORTON MD Ot I25.10 ATHSCL HEART DISEASE OF [place] CORONARY 03/24/2016 SOL JARAMILLO, CARLOS Montanez Ot J44.9 CHRONIC OBSTRUCTIVE PULMONARY DISEASE, U 03/24/2016 CARLOS HORTON MD Ot M06.9 RHEUMATOID ARTHRITIS, UNSPECIFIED 03/24/2016 CARLOS HORTON MD Ot M65.4 RADIAL STYLOID TENOSYNOVITIS [DE QUERVAI 05/09/2016 RODERICK LILLY K Ot E78.2 MIXED HYPERLIPIDEMIA 05/09/2016 DAMIAN MEDRANO RODERICK K Ot I10 ESSENTIAL (PRIMARY) HYPERTENSION 05/09/2016 RODERICK LILLY K Ot I25.10 ATHSCL HEART DISEASE OF [place] CORONARY 05/09/2016 RODERICK LILLY K Ot I65.23 OCCLUSION AND STENOSIS OF [place] 05/10/2016 RODERICK LILLY K Ot E78.2 MIXED HYPERLIPIDEMIA 05/10/2016 RODERICK LILLY K Ot I10 ESSENTIAL (PRIMARY) HYPERTENSION 05/10/2016 RODERICK LILLY K Ot I25.10 ATHSCL HEART DISEASE OF [place] CORONARY 05/10/2016 ELISE LILLYTH K Ot I65.23 OCCLUSION AND STENOSIS OF [place] 05/10/2016 RODERICK LILLY K Ot E78.2 MIXED HYPERLIPIDEMIA 05/10/2016 ELISE LILLYTH K Ot I10 ESSENTIAL (PRIMARY) HYPERTENSION 05/10/2016 RODERICK LILLY K Ot I25.10 ATHSCL HEART DISEASE OF [place] CORONARY 05/10/2016 ELISE LILLYTH K Ot I65.23 OCCLUSION AND STENOSIS OF [place] 05/12/2016 ELISE LILLYTH K Ot E78.2 MIXED HYPERLIPIDEMIA 05/12/2016 ELISE LILLYTH K Ot I10 ESSENTIAL (PRIMARY) HYPERTENSION 05/12/2016 RODERICK LILLY K Ot I25.10 ATHSCL HEART DISEASE OF [place] CORONARY 05/12/2016 RODERICK LILLY K Ot I65.23 OCCLUSION AND STENOSIS OF [place] 05/19/2016 SOL JARAMILLO, CARLOS Montanez Ot M23.8X2 OTHER INTERNAL DERANGEMENTS OF LEFT KNEE 05/19/2016 CARLOS HORTON MD Ot Z01.818 ENCOUNTER FOR OTHER PREPROCEDURAL EXAMIN 05/19/2016 CARLOS HORTON MD Ot Z11.2 ENCOUNTER FOR SCREENING FOR OTHER BACTER 05/19/2016 RODERICK LILLY Ot E78.2 MIXED HYPERLIPIDEMIA 05/19/2016 RODERICK LILLY Ot I10 ESSENTIAL (PRIMARY) HYPERTENSION 05/19/2016 RODERICK LILLY Ot I25.10 ATHSCL HEART DISEASE OF [place] CORONARY 05/19/2016 RODERICK LILLY Ot I65.23 OCCLUSION AND STENOSIS OF [place] 05/20/2016 CARLOS HORTON MD Ot M23.8X2 OTHER INTERNAL DERANGEMENTS OF LEFT KNEE 05/20/2016 CARLOS HORTON MD Ot Z01.818 ENCOUNTER FOR OTHER PREPROCEDURAL EXAMIN 05/20/2016 CARLOS HORTON MD Ot Z11.2 ENCOUNTER FOR SCREENING FOR OTHER BACTER 05/25/2016 CARLOS HORTON MD Ot M23.8X2 OTHER INTERNAL DERANGEMENTS OF LEFT KNEE 05/25/2016 CARLOS HORTON MD Ot Z01.818 ENCOUNTER FOR OTHER PREPROCEDURAL EXAMIN 05/25/2016 CARLOS HORTON MD Ot Z11.2 ENCOUNTER FOR SCREENING FOR OTHER BACTER 05/25/2016 CARLOS HORTON MD Ot E11.9 TYPE 2 DIABETES MELLITUS WITHOUT COMPLIC 05/25/2016 CARLOS HORTON MD Ot F17.210 NICOTINE DEPENDENCE, CIGARETTES, UNCOMPL 05/25/2016 CARLOS HORTON MD Ot I10 ESSENTIAL (PRIMARY) HYPERTENSION 05/25/2016 CARLOS HORTON MD Ot I25.10 ATHSCL HEART DISEASE OF [place] CORONARY 05/25/2016 CARLOS HORTON MD Ot J44.9 CHRONIC OBSTRUCTIVE PULMONARY DISEASE, U 05/25/2016 CARLOS HORTON MD Ot M06.9 RHEUMATOID ARTHRITIS, UNSPECIFIED 05/25/2016 CARLOS HORTON MD Ot M22.42 CHONDROMALACIA PATELLAE, LEFT KNEE 05/25/2016 CARLOS HORTON MD Ot M23.8X2 OTHER INTERNAL DERANGEMENTS OF LEFT KNEE 05/25/2016 CARLOS HORTON MD Ot 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 05/26/2016 CARLOS HORTON MD Ot E11.9 TYPE 2 DIABETES MELLITUS WITHOUT COMPLIC 05/26/2016 CARLOS HORTON MD Ot F17.210 NICOTINE DEPENDENCE, CIGARETTES, UNCOMPL 05/26/2016 CARLOS HORTON MD Ot I10 ESSENTIAL (PRIMARY) HYPERTENSION 05/26/2016 CARLOS HORTON MD Ot I25.10 ATHSCL HEART DISEASE OF [place] CORONARY 05/26/2016 CARLOS HORTON MD Ot J44.9 CHRONIC OBSTRUCTIVE PULMONARY DISEASE, U 05/26/2016 CARLOS HORTON MD Ot M06.9 RHEUMATOID ARTHRITIS, UNSPECIFIED 05/26/2016 CARLOS HORTON MD Ot M22.42 CHONDROMALACIA PATELLAE, LEFT KNEE 05/26/2016 CARLOS HORTON MD Ot M23.8X2 OTHER INTERNAL DERANGEMENTS OF LEFT KNEE 05/26/2016 CARLOS HORTON MD Ot 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 05/31/2016 CARLOS HORTON MD Ot E11.9 TYPE 2 DIABETES MELLITUS WITHOUT COMPLIC 05/31/2016 CARLOS HORTON MD Ot F17.210 NICOTINE DEPENDENCE, CIGARETTES, UNCOMPL 05/31/2016 CARLOS HORTON MD Ot I10 ESSENTIAL (PRIMARY) HYPERTENSION 05/31/2016 CARLOS HORTON MD Ot I25.10 ATHSCL HEART DISEASE OF [place] CORONARY 05/31/2016 CARLOS HORTON MD Ot J44.9 CHRONIC OBSTRUCTIVE PULMONARY DISEASE, U 05/31/2016 CARLOS HORTON MD Ot M06.9 RHEUMATOID ARTHRITIS, UNSPECIFIED 05/31/2016 CARLOS HORTON MD Ot M22.42 CHONDROMALACIA PATELLAE, LEFT KNEE 05/31/2016 CARLOS HORTON MD Ot M23.8X2 OTHER INTERNAL DERANGEMENTS OF LEFT KNEE 05/31/2016 CARLOS HORTON MD Ot Z79.899 OTHER [facility] (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 THERAPY 05/31/2016 RODERICK LILLY Ot E78.2 MIXED HYPERLIPIDEMIA 05/31/2016 RODERICK LILLY Ot I10 ESSENTIAL (PRIMARY) HYPERTENSION 05/31/2016 RODERICK LILLY Ot I25.10 ATHSCL HEART DISEASE OF [place] CORONARY 05/31/2016 RODERICK LILLY Ot I65.23 OCCLUSION AND STENOSIS OF [place] 06/01/2016 CARLOS HORTON MD Ot E11.9 TYPE 2 DIABETES MELLITUS WITHOUT COMPLIC 06/01/2016 CARLOS HORTON MD Ot F17.210 NICOTINE DEPENDENCE, CIGARETTES, UNCOMPL 06/01/2016 CARLOS HORTON MD Ot I10 ESSENTIAL (PRIMARY) HYPERTENSION 06/01/2016 CARLOS HORTON MD Ot I25.10 ATHSCL HEART DISEASE OF [place] CORONARY 06/01/2016 CARLOS HORTON MD Ot J44.9 CHRONIC OBSTRUCTIVE PULMONARY DISEASE, U 06/01/2016 CARLOS HORTON MD Ot M06.9 RHEUMATOID ARTHRITIS, UNSPECIFIED 06/01/2016 CARLOS HORTON MD Ot M22.42 CHONDROMALACIA PATELLAE, LEFT KNEE 06/01/2016 CARLOS HORTON MD Ot M23.8X2 OTHER INTERNAL DERANGEMENTS OF LEFT KNEE 06/01/2016 CARLOS HORTON MD Ot Z79.899 OTHER [facility] (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 THERAPY 02/21/2017 JAN YANEZ DO Ot R10.13 EPIGASTRIC PAIN 02/21/2017 JAN YANEZ DO Ot R19.7 DIARRHEA, UNSPECIFIED 02/21/2017 JAN YANEZ DO Ot Z01.818 ENCOUNTER FOR OTHER PREPROCEDURAL EXAMIN 02/22/2017 JAN YANEZ DO Ot R10.13 EPIGASTRIC PAIN 02/22/2017 JAN YANEZ DO Ot R19.7 DIARRHEA, UNSPECIFIED 02/22/2017 JAN YANEZ DO Ot Z01.818 ENCOUNTER FOR OTHER PREPROCEDURAL EXAMIN 02/24/2017 ARVIND CASTELLANOS MD Ot E78.5 HYPERLIPIDEMIA, UNSPECIFIED 02/24/2017 ARVIND CASTELLANOS MD Ot I10 ESSENTIAL (PRIMARY) HYPERTENSION 02/24/2017 ARVIND CASTELLANOS MD Ot I25.10 ATHSCL HEART DISEASE OF [place] CORONARY 02/24/2017 ARVIND CASTELLANOS MD Ot R07.9 CHEST PAIN, UNSPECIFIED 02/24/2017 SERNA-RODNEY PA, RODERICK K Ot E78.5 HYPERLIPIDEMIA, UNSPECIFIED 02/24/2017 RODERICK LILLY Ot I10 ESSENTIAL (PRIMARY) HYPERTENSION 02/24/2017 RODERICK LILLY Ot I25.10 ATHSCL HEART DISEASE OF [place] CORONARY 02/24/2017 RODERICK LILLY Ot R07.9 CHEST PAIN, UNSPECIFIED 02/24/2017 RODERICK LILLY Ot E78.0 PURE HYPERCHOLESTEROLEMIA 02/24/2017 RODERICK LILYL Ot E78.2 MIXED HYPERLIPIDEMIA 02/24/2017 RODERICK LILLY Ot I10 ESSENTIAL (PRIMARY) HYPERTENSION 02/24/2017 RODERICK LILLY Ot I25.10 ATHSCL HEART DISEASE OF [place] CORONARY 02/24/2017 RODERICK LILLY Ot R07.89 OTHER CHEST PAIN 02/24/2017 CLAU DELEON APRN Ot R10.11 RIGHT UPPER QUADRANT PAIN 02/24/2017 SHERITA PATTERSON Ot S62.002A UNSP FRACTURE OF NAVICULAR BONE OF LEFT 02/24/2017 SHERITA PATTERSONP Ot X58.XXXA EXPOSURE TO OTHER SPECIFIED FACTORS, INI 02/24/2017 SHERITA PATTERSON Ot Y99.8 OTHER EXTERNAL CAUSE STATUS 02/24/2017 CLAU DELEON APRN Ot R93.6 ABNORMAL FINDINGS ON DIAGNOSTIC IMAGING 02/24/2017 CLAU DELEON APRN Ot Z13.820 ENCOUNTER FOR SCREENING FOR OSTEOPOROSIS 02/24/2017 RODERICK LILLY Ot E78.2 MIXED HYPERLIPIDEMIA 02/24/2017 RODERICK LILLY Ot I10 ESSENTIAL (PRIMARY) HYPERTENSION 02/24/2017 RODERICK LILLY Ot I25.10 ATHSCL HEART DISEASE OF [place] CORONARY 02/24/2017 RODERICK LILLY Ot I65.23 OCCLUSION AND STENOSIS OF [place]AL [place] 02/24/2017 RODERICK LILLY Ot E78.2 MIXED HYPERLIPIDEMIA 02/24/2017 RODERICK LILLY Ot I10 ESSENTIAL (PRIMARY) HYPERTENSION 02/24/2017 RODERICK LILLY Ot I25.10 ATHSCL HEART DISEASE OF [place] CORONARY 02/24/2017 RODERICK LILLY Ot I65.23 OCCLUSION AND STENOSIS OF [place] 03/02/2017 ARVIND CASTELLANOS MD Ot E78.5 HYPERLIPIDEMIA, UNSPECIFIED 03/02/2017 ARVIND CASTELLANOS MD Ot I10 ESSENTIAL (PRIMARY) HYPERTENSION 03/02/2017 ARVIND CASTELLANOS MD Ot I25.10 ATHSCL HEART DISEASE OF [place] CORONARY 03/02/2017 ARVIND CASTELLANOS MD Ot R07.9 CHEST PAIN, UNSPECIFIED 03/02/2017 RODERICK LILLY Ot E78.5 HYPERLIPIDEMIA, UNSPECIFIED 03/02/2017 RODERICK LILLY Ot I10 ESSENTIAL (PRIMARY) HYPERTENSION 03/02/2017 RODERICK LILLY Ot I25.10 ATHSCL HEART DISEASE OF [place] CORONARY 03/02/2017 RODERICK LILLY Ot R07.9 CHEST PAIN, UNSPECIFIED 03/02/2017 RODERICK LILLY Ot E78.0 PURE HYPERCHOLESTEROLEMIA 03/02/2017 RODERICK LILLY Ot E78.2 MIXED HYPERLIPIDEMIA 03/02/2017 RODERICK LILLY Ot I10 ESSENTIAL (PRIMARY) HYPERTENSION 03/02/2017 RODERICK LILLY Ot I25.10 ATHSCL HEART DISEASE OF [place] CORONARY 03/02/2017 RODERICK LILLY Ot R07.89 OTHER CHEST PAIN 03/02/2017 CLAU DELEON APRN Ot R10.11 RIGHT UPPER QUADRANT PAIN 03/02/2017 SHERITA PATTERSON Ot S62.002A UNSP FRACTURE OF NAVICULAR BONE OF LEFT 03/02/2017 SHERITA PATTERSON Ot X58.XXXA EXPOSURE TO OTHER SPECIFIED FACTORS, INI 03/02/2017 SHERITA PATTERSON Ot Y99.8 OTHER EXTERNAL CAUSE STATUS 03/02/2017 CLAU DELEON APRN Ot R93.6 ABNORMAL FINDINGS ON DIAGNOSTIC IMAGING 03/02/2017 CLAU DELEON APRN Ot Z13.820 ENCOUNTER FOR SCREENING FOR OSTEOPOROSIS 03/02/2017 RODERICK LILLY Ot E78.2 MIXED HYPERLIPIDEMIA 03/02/2017 RODERICK LILLY Ot I10 ESSENTIAL (PRIMARY) HYPERTENSION 03/02/2017 RODERICK LILLY Ot I25.10 ATHSCL HEART DISEASE OF [place] CORONARY 03/02/2017 RODERICK LILLY Ot I65.23 OCCLUSION AND STENOSIS OF BILATERAL [place] 03/02/2017 RODERICK LILLY Ot E78.2 MIXED HYPERLIPIDEMIA 03/02/2017 RODERICK LILLY Ot I10 ESSENTIAL (PRIMARY) HYPERTENSION 03/02/2017 RODERICK LILLY Ot I25.10 ATHSCL HEART DISEASE OF [place] CORONARY 03/02/2017 RODERICK LILLY Ot I65.23 OCCLUSION AND STENOSIS OF BILATERAL [place] 03/03/2017 JAN YANEZ DO Ot D12.2 BENIGN NEOPLASM OF ASCENDING COLON 03/03/2017 JAN YANEZ DO Ot F17.210 NICOTINE DEPENDENCE, CIGARETTES, UNCOMPL 03/03/2017 JAN YANEZ DO Ot F32.9 MAJOR DEPRESSIVE DISORDER, SINGLE EPISOD 03/03/2017 JAN YANEZ DO Ot I11.9 HYPERTENSIVE HEART DISEASE WITHOUT HEART 03/03/2017 JAN YANEZ DO Ot I25.10 ATHSCL HEART DISEASE OF [place] CORONARY 03/03/2017 JAN YANEZ DO Ot J44.9 CHRONIC OBSTRUCTIVE PULMONARY DISEASE, U 03/03/2017 JAN YANEZ DO Ot K21.9 GASTRO-ESOPHAGEAL REFLUX DISEASE WITHOUT 03/03/2017 JAN YANEZ DO Ot K25.9 GASTRIC ULCER, UNSP ACUTE OR CHRONIC, 03/03/2017 JAN YANEZ DO Ot K52.9 NONINFECTIVE GASTROENTERITIS AND COLITIS 03/03/2017 JAN YANEZ DO Ot K63.89 OTHER SPECIFIED DISEASES OF INTESTINE 03/03/2017 JAN YANEZ DO Ot 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 Results Test Result Range Methicillin resistant Staphylococcus aureus (MRSA) screening culture - 15:40 Methicillin resistant Staphylococcus aureus (MRSA) screening culture NEG NRG Capillary blood glucose measurement by glucometer (mass/volume) - 03/23/16 06: 53 Capillary blood glucose measurement by glucometer (mass/volume) 165 mg/dL 70-110 Methicillin resistant Staphylococcus aureus (MRSA) screening culture - 12:00 Methicillin resistant Staphylococcus aureus (MRSA) screening culture NEG NRG Capillary blood glucose measurement by glucometer (mass/volume) - 05/25/16 08: 42 Capillary blood glucose measurement by glucometer (mass/volume) 179 mg/dL 70-110 Complete blood count (CBC) with automated white blood cell (WBC) differential - 03/17/17 20:05 Blood leukocytes automated count (number/volume) 13.6 10*3/uL 4.3-11.0 Blood erythrocytes automated count (number/volume) 5.35 10*6/uL 4.35-5.85 Venous blood hemoglobin measurement (mass/volume) 15.6 g/dL 11.5-16.0 Blood hematocrit (volume fraction) 46 % 35-52 Automated erythrocyte mean corpuscular volume 85 [foz_us] 80-99 Automated erythrocyte mean corpuscular hemoglobin (mass per erythrocyte) 29 pg 25-34 Automated erythrocyte mean corpuscular hemoglobin concentration measurement ( mass/volume) 34 g/dL 32-36 Automated erythrocyte distribution width ratio 14.9 % 10.0-14.5 Automated blood platelet count (count/volume) 269 10*3/uL 130-400 Automated blood platelet mean volume measurement 10.7 [foz_us] 7.4-10.4 Automated blood neutrophils/100 leukocytes 73 % 42-75 Automated blood lymphocytes/100 leukocytes 20 % 12-44 Blood monocytes/100 leukocytes 5 % 0-12 Automated blood eosinophils/100 leukocytes 2 % 0-10 Automated blood basophils/100 leukocytes 0 % 0-10 Blood neutrophils automated count (number/volume) 9.9 10*3 1.8-7.8 Blood lymphocytes automated count (number/volume) 2.8 10*3 1.0-4.0 Blood monocytes automated count (number/volume) 0.6 10*3 0.0-1.0 Automated eosinophil count 0.3 10*3/uL 0.0-0.3 Automated blood basophil count (count/volume) 0.1 10*3/uL 0.0-0.1 PT panel in platelet poor plasma by coagulation assay - 03/17/17 20:05 Prothrombin time (PT) in platelet poor plasma by coagulation assay 12.6 s 12.2-14.7 INR in platelet poor plasma or blood by coagulation assay 0.9 0.8-1.4 Activated partial thromboplastin time (aPTT) in platelet poor plasma bycoagulation assay - 03/17/17 20:05 Activated partial thromboplastin time (aPTT) in platelet poor plasma bycoagulation assay 26 s 24-35 Fibrin D-dimer FEU measurement in platelet poor plasma (mass/volume) - 20:05 Fibrin D-dimer FEU measurement in platelet poor plasma (mass/volume) 0.31 ug/mL 0.00-0.49 Blood lactic acid measurement (moles/volume) - 03/17/17 20:05 Blood lactic acid measurement (moles/volume) 2.61 mmol/L 0.50-2.00 Serum or plasma C reactive protein measurement (mass/volume) - 03/17/17 20:05 Serum or plasma C reactive protein measurement (mass/volume) 0.44 mg /dL 0.00-0.50 Comprehensive metabolic panel - 03/17/17 20:05 Serum or plasma sodium measurement (moles/volume) 141 mmol/L 135-145 Serum or plasma potassium measurement (moles/volume) 3.5 mmol/L 3.6-5.0 Serum or plasma chloride measurement (moles/volume) 101 mmol/L 98-107 Carbon dioxide 29 mmol/L 21-32 Serum or plasma anion gap determination (moles/volume) 11 mmol/L 5-14 Serum or plasma urea nitrogen measurement (mass/volume) 9 mg/dL 7-18 Serum or plasma creatinine measurement (mass/volume) 0.78 mg/dL 0.60-1.30 Serum or plasma urea nitrogen/creatinine mass ratio 12 NRG Serum or plasma creatinine measurement with calculation of estimated glomerular filtration rate > NRG Serum or plasma glucose measurement (mass/volume) 128 mg/dL 70-105 Serum or plasma calcium measurement (mass/volume) 9.6 mg/dL 8.5-10.1 Serum or plasma total bilirubin measurement (mass/volume) 0.5 mg/dL 0.1-1.0 Serum or plasma alkaline phosphatase measurement (enzymatic activity/volume) 58 U/L 40-136 Serum or plasma aspartate aminotransferase measurement (enzymatic activity/ volume) 18 U/L 5-34 Serum or plasma alanine aminotransferase measurement (enzymatic activity/volume ) 18 U/L 0-55 Serum or plasma protein measurement (mass/volume) 6.5 g/dL 6.4-8.2 Serum or plasma albumin measurement (mass/volume) 3.8 g/dL 3.2-4.5 Magnesium - 03/17/17 20:05 Magnesium 1.6 mg/dL 1.8-2.4 Serum or plasma troponin i.cardiac measurement (mass/volume) - 03/17/17 20:05 Serum or plasma troponin i.cardiac measurement (mass/volume) < ng/ mL <0.30 Myoglobin, serum - 03/17/17 20:05 Myoglobin, serum 22.8 ng/mL 10.0-92.0 Encounters ACCT No. Visit Date/Time Discharge Status Pt. Type Provider Facility Loc./Unit Complaint [id number] 03/02/2017 14:29:00 03/02/2017 23:59:59 CLS Outpatient CLAU DELEON APRN [facility] RAD Z12.31 SCREENING BREAST EXAMINATION [id number] 02/28/2017 11:38:00 02/28/2017 14:55:00 DIS Outpatient YANEZ JAN RHOADES [facility] ENDO EPIGASTRIC ABD PAIN/ DIARRHEA [id number] 02/21/2017 05:50:00 02/21/2017 13:50:00 DIS Outpatient JAN YANEZ DO [facility] PREOP COLONOSCOPY/EGD [id number] 05/25/2016 08:12:00 05/25/2016 13:55:00 DIS Outpatient CARLOS HORTON MD [facility] [facility] TORN MENISC[facility] [id number] 05/19/2016 11:40:00 05/19/2016 12:02:00 DIS Outpatient CARLOS HORTON MD [facility] PREOP LEFT TORN MENISCUS [id number] 05/09/2016 07:43:00 05/09/2016 23:59:59 CLS Outpatient RODERICK LILLY [facility] CARD CAD,HTN,HLP [id number] 05/06/2016 09:42:00 05/06/2016 23:59:59 CLS Outpatient RODERICK LILLY [facility] CARD CAD,HTN,HLP [id number] 03/23/2016 06:40:00 03/23/2016 12:05:00 DIS Outpatient CARLOS HORTON MD [facility] SDC LEFT WRIST DEQUERVAIN TENDOSINOVITIS [id number] 03/03/2016 15:25:00 03/03/2016 15:50:00 DIS Outpatient CARLOS HORTON MD [facility] PREOP LEFT WRIST DEQUERVEINS TENDOSINOVITIS [id number] 01/04/2016 20:50:00 01/05/2016 06:20:00 DIS Outpatient CLAU DELEON APRN [facility] SLEEP SNORING,CHOKING [id number] 12/31/2015 10:29:00 12/31/2015 23:59:59 CLS Outpatient CLAU DELEON APRN [facility] RAD RHEUMATOID ARTHRITIS, PAIN IN LT KNEE [id number] 09/24/2015 12:35:00 09/24/2015 23:59:59 CLS Outpatient SHERITA PATTERSON [facility] RAD CLOSED NONDISPLACE FRACTURE OF SCAPHOID L WRIST [id number] 09/17/2015 16:41:00 09/17/2015 23:59:59 CLS Outpatient CLAU DELEON APRN [facility] RAD RIGHT UPPER QUADRANT PAIN [id number] 08/01/2015 23:05:00 08/02/2015 10:30:00 DIS Inpatient VALDEZ MCDONNELL MD [facility] ICU CHEST PAIN [id number] 05/15/2015 13:07:00 05/15/2015 23:59:59 CLS Outpatient RODERICK LILLY [facility] LAB HYPERLIPIDEMIA, MIXED [id number] 01/28/2015 07:43:00 01/28/2015 15:00:00 DIS Outpatient ARVIND CASTELLANOS MD [facility] CATH ABNORMAL STRESS,CAD,HLP [id number] 01/19/2015 07:48:00 01/19/2015 23:59:59 CLS Outpatient DAMIAN MEDRANO, RODERICK Delgadillo [facility] CARD CP, HTN, HLP [id number] 01/14/2015 08:01:00 01/14/2015 23:59:59 CLS Outpatient ARVIND CASTELLANOS MD [facility] CARD CHEST PAIN,CAD,HTN,HLP [id number] 10/19/2014 16:20:00 10/19/2014 17:00:00 DIS Emergency JEWELS JARAMILLO, ASHUTOSH Delgadillo [facility] ER COUGHING UP BLOOD/SORE THROAT/CHEST CONGESTION [id number] 03/17/2017 20:16:00 Document Registration
[2017-03-17 22:33] VITALS: BP 114/65
[2017-03-17 22:45] VITALS: BP 106/53
[2017-03-17] MEDS ORDERED: ACETAMINOPHEN 500 MG TAB (TYLENOL) PO PRN (22:45)
[2017-03-17] MEDS ORDERED: ONDANSETRON 4 MG/2 ML (SDV) Z0FRAN IV PRN (22:45)
[2017-03-17 23:00] VITALS: BP 115/58
[2017-03-17] MEDS ORDERED: NITROGLYCERIN 0.4 MG SL TABS BTL 25'S SL PRN (23:00)
[2017-03-17] MEDS ORDERED: morphine INJ 4 MG/ML 1 ML (VIAL/SYRINGE) IV PRN (23:00)
[2017-03-17] MEDS ORDERED: AZITHROMYCIN 500 MG/NS 250 ML IVPB IV ONE ×2 (23:00)
[2017-03-17 23:15] VITALS: BP 122/55
[2017-03-17 23:30] VITALS: BP 121/57
[2017-03-17] MEDS: NS IV 1000 ML 1,000 ML IV SCH (23:32)
[2017-03-17 23:45] VITALS: BP 132/67
[2017-03-18] VITALS (11 sets, daily range): BP systolic 108–140; BP diastolic 49–92
[2017-03-18] MEDS ORDERED: RT-ALBUTEROL SULF 2.5 MG/3 ML PRE-MIX VIAL INH PRN (01:00)
[2017-03-18] MEDS ORDERED: RT-ALBUTEROL/IPRATROPIUM 3 ML (DUONEB) VIAL ONE (01:36)
[2017-03-18] MEDS: RT-ALBUTEROL SULF 2.5 MG/3 ML PRE-MIX VIAL INH SCH ×3 (02:56→09:39)
[2017-03-18 03:15] LABS: BASOPHILS % (AUTO) 0 % (0-10); EOSINOPHILS # (AUTO) 0.2 10^3/uL (0.0-0.3); EOSINOPHILS % (AUTO) 2 % (0-10); HEMATOCRIT 42 % (35-52); HEMOGLOBIN 13.8 G/DL (11.5-16.0); LYMPHOCYTES # (AUTO) 2.2 X 10^3 (1.0-4.0); LYMPHOCYTES % (AUTO) 24 % (12-44); MEAN CORPUSCULAR HEMOGLOBIN 29 PG (25-34); MEAN CORPUSCULAR HGB CONC 33 G/DL (32-36); MEAN CORPUSCULAR VOLUME 88 FL (80-99); MEAN PLATELET VOLUME 10.8 FL (7.4-10.4); MONOCYTES # (AUTO) 0.5 X 10^3 (0.0-1.0); MONOCYTES % (AUTO) 5 % (0-12); NEUTROPHILS # (AUTO) 6.2 X 10^3 (1.8-7.8); NEUTROPHILS % (AUTO) 69 % (42-75); PLATELET COUNT 231 10^3/uL (130-400); RED BLOOD COUNT 4.74 10^6/uL (4.35-5.85)
[2017-03-18 03:35] LABS: CHOLESTEROL 106 MG/DL (< 200); HDL CHOLESTEROL 30 MG/DL (40-60); TRIGLYCERIDES 87 MG/DL (<150); VLDL CHOLESTEROL 17 MG/DL (5-40)
[2017-03-18 03:37] LABS: ALANINE AMINOTRANSFERASE 15 U/L (0-55); ALBUMIN 3.3 GM/DL (3.2-4.5); ALKALINE PHOSPHATASE 47 U/L (40-136); BILIRUBIN,TOTAL 0.2 MG/DL (0.1-1.0); BUN/CREATININE RATIO 13; CALCIUM 8.6 MG/DL (8.5-10.1); CARBON DIOXIDE 25 MMOL/L (21-32); CHLORIDE 108 MMOL/L (98-107); CREATININE SERUM 0.71 MG/DL (0.60-1.30); GFR ESTIMATED > 60; GLUCOSE 117 MG/DL (70-105); POTASSIUM 3.8 MMOL/L (3.6-5.0); SODIUM 144 MMOL/L (135-145); TOTAL PROTEIN 5.4 GM/DL (6.4-8.2)
[2017-03-18] MEDS ORDERED: methylPREDNISolone 40 MG/ML (Solu-MEDROL) VIAL IV ONE (06:00)
--- NOTE | 2017-03-18 06:08 | History & Physicial (CHS) ---
HPI History of Present Illness: Patient presented to ED last night via EMS with reports of chest pain that is associated with some shortness of breath; reports she has not had pain like this before. Patient was found to have mild elevation in her WBC and mild vascular congestion on her CXR. She was placed in the ICU for further monitoring of her chest pain and shortness of breath. She has an oxygen requirement of 2L per NC while asleep; on arrival to the ED she was found to have sats of 87% on room air while awake which resolved after being placed on 3L NC. No acute events overnight. Source: patient, old records Exam Limitations: no limitations Date seen by provider: Mar 18, 2017 Time Seen by Provider: 10:30 Attending Physician Alyssa Ibarra DO [facility] Consult Date of Admission Mar 17, 2017 at 21:45 Home Medications Home Medications Reviewed patient Home Medication Reconciliation Form Allergies Coded Allergies: adhesive tape (Verified Allergy, Unknown, HIVES, 02/21/17) montelukast (Verified Allergy, Unknown, DIZZY AND DROWSY, CONFUSION, ) Sulfa (Sulfonamide Antibiotics) (Unverified Adverse Reaction, Intermediate , 02/21/17) OQW-Zavkba-Rkxkkk Hx Patient Social History Living Status: lives home alone Employed/Student: unemployed Alcohol Use: Denies Use Recreational Drug Use: No Smoking Status: Current Everyday Smoker Type Used: Cigarettes Recent Foreign Travel: No Contact w/other who traveled: No Recent Hopitalizations: No (EGD/COLONOSCOPY LAST MONTH) Recent Infectious Disease Expo: No Physical Abuse Screen: No Sexual Abuse: No Immunizations Up To Date Tetanus Booster (TDap): Unknown Date of Pneumonia Vaccine: Dec 23, 2016 Date of Influenza Vaccine: Dec 23, 2016 Past Medical History Hypertension History of Myocardial Infarction Tobacco Abuse COPD suggested by history Type II Diabetes Rheumatoid Arthritis Hyperlipidemia GERD Family Medical History Significant Family History: No Pertinent Family Hx Family History: Cardiovascular disease 19 FATHER, Onset:Unknown Diabetes mellitus 19 FATHER, Onset:Unknown FH: CABG (coronary artery bypass surgery) 19 FATHER, Onset:Unknown FH: lung cancer 19 MOTHER, Onset:Unknown Myocardial infarction 19 FATHER, Onset:Unknown Review of Systems (CHC) Constitutional: no symptoms reported EENTM: no symptoms reported Respiratory: cough, short of breath (now resolved) Cardiovascular: chest pain (now resolved) Gastrointestinal: no symptoms reported Genitourinary: frequency : No Musculoskeletal: joint pain (chronic) Skin: no symptoms reported Reviewed Test Results Reviewed Test Results Lab Laboratory Tests Test 03/17/17 20:05 03/17/17 22:52 03/18/17 03:02 03/18/17 08:08 Range/Units White Blood Count 13.6 H 9.0 4.3-11.0 10^3/uL Red Blood Count 5.35 4.74 4.35-5.85 10^6/uL Hemoglobin 15.6 13.8 11.5-16.0 G/DL Hematocrit 46 42 35-52 % Mean Corpuscular Volume 85 88 80-99 FL Mean Corpuscular Hemoglobin 29 29 25-34 PG Mean Corpuscular Hemoglobin Concent 34 33 32-36 G/DL Red Cell Distribution Width 14.9 H 15.0 H 10.0-14.5 % Platelet Count 269 231 130-400 10^3/uL Mean Platelet Volume 10.7 H 10.8 H 7.4-10.4 FL Neutrophils (%) (Auto) 73 69 42-75 % Lymphocytes (%) (Auto) 20 24 12-44 % Monocytes (%) (Auto) 5 5 0-12 % Eosinophils (%) (Auto) 2 2 0-10 % Basophils (%) (Auto) 0 0 0-10 % Neutrophils # (Auto) 9.9 H 6.2 1.8-7.8 X 10^3 Lymphocytes # (Auto) 2.8 2.2 1.0-4.0 X 10^3 Monocytes # (Auto) 0.6 0.5 0.0-1.0 X 10^3 Eosinophils # (Auto) 0.3 0.2 0.0-0.3 10^3/uL Basophils # (Auto) 0.1 0.0 0.0-0.1 10^3/uL Prothrombin Time 12.6 12.2-14.7 SEC INR Comment 0.9 0.8-1.4 Activated Partial Thromboplast Time 26 24-35 SEC D-Dimer 0.31 0.00-0.49 UG/ML Sodium Level 141 144 135-145 MMOL/L Potassium Level 3.5 L 3.8 3.6-5.0 MMOL/L Chloride Level 101 108 H 98-107 MMOL/L Carbon Dioxide Level 29 25 21-32 MMOL/L Anion Gap 11 11 5-14 MMOL/L Blood Urea Nitrogen 9 9 7-18 MG/DL Creatinine 0.78 0.71 0.60-1.30 MG/DL Estimat Glomerular Filtration Rate > 60 > 60 BUN/Creatinine Ratio 12 13 Glucose Level 128 H 117 H 70-105 MG/DL Lactic Acid Level 2.61 *H 0.99 0.50-2.00 MMOL/L Calcium Level 9.6 8.6 8.5-10.1 MG/DL Magnesium Level 1.6 L 1.8-2.4 MG/DL Total Bilirubin 0.5 0.2 0.1-1.0 MG/DL Aspartate Amino Transf (AST/SGOT) 18 12 5-34 U/L Alanine Aminotransferase (ALT/SGPT) 18 15 0-55 U/L Alkaline Phosphatase 58 47 40-136 U/L Myoglobin 22.8 10.0-92.0 NG/ML Troponin I < 0.30 < 0.30 < 0.30 <0.30 NG/ML C-Reactive Protein High Sensitivity 0.44 0.00-0.50 MG/DL Total Protein 6.5 5.4 L 6.4-8.2 GM/DL Albumin 3.8 3.3 3.2-4.5 GM/DL B-Type Natriuretic Peptide 29.3 <100.0 PG/ML Triglycerides Level 87 <150 MG/DL Cholesterol Level 106 < 200 MG/DL LDL Cholesterol Direct 62 1-129 MG/DL VLDL Cholesterol 17 5-40 MG/DL HDL Cholesterol 30 L 40-60 MG/DL Test 03/18/17 11:09 Range/Units Glucometer 179 H 70-110 MG/DL Physical Exam-(CHC) Physical Exam Vital Signs VS - Last 72 Hours, by Label 03/17/17 03/17/17 03/17/17 03/17/17 19:54 19:54 20:31 22:10 Temp 97.8 Pulse 96 84 Resp 20 18 B/P (MAP) 116/60 (78) Pulse Ox 87 91 96 O2 Delivery Room Air Nasal Cannula OxyMask OxyMask O2 Flow Rate 3.00 2.0 2.00 3.00 03/17/17 03/17/17 03/17/17 03/17/17 22:30 22:33 22:41 22:45 Temp 98.4 Pulse 82 82 83 Resp 18 B/P (MAP) 114/65 (81) 106/53 (70) Pulse Ox 93 91 92 O2 Delivery OxyMask OxyMask OxyMask O2 Flow Rate 3.50 3.50 3.50 03/17/17 03/17/17 03/17/17 03/17/17 23:00 23:15 23:30 23:45 Pulse 82 80 78 80 B/P (MAP) 115/58 (77) 122/55 (77) 121/57 (78) 132/67 (88) Pulse Ox 91 92 89 92 O2 Delivery OxyMask OxyMask OxyMask OxyMask O2 Flow Rate 3.50 3.50 3.50 3.50 03/17/17 03/18/17 03/18/17 03/18/17 23:51 00:00 00:00 00:15 Pulse 83 87 B/P (MAP) 128/62 (84) 140/66 (90) Pulse Ox 92 92 92 92 O2 Delivery OxyMask OxyMask OxyMask OxyMask O2 Flow Rate 3.50 3.50 3.50 3.50 03/18/17 03/18/17 03/18/17 03/18/17 00:43 01:00 01:00 02:00 Pulse 81 84 B/P (MAP) 127/64 (85) 120/63 (82) Pulse Ox 92 03/18/17 03/18/17 03/18/17 03/18/17 02:56 03:00 04:00 04:00 B/P (MAP) 117/59 (78) 108/49 (68) Pulse Ox 89 92 O2 Delivery Nasal Cannula Nasal Cannula O2 Flow Rate 3.50 3.00 03/18/17 03/18/17 03/18/17 03/18/17 05:00 06:00 07:00 07:27 Pulse 71 72 70 B/P (MAP) 117/51 (73) 122/84 (97) Pulse Ox 93 92 O2 Delivery Nasal Cannula Nasal Cannula O2 Flow Rate 3.00 4.50 03/18/17 03/18/17 03/18/17 03/18/17 07:46 08:00 08:00 09:07 Temp 97.9 Pulse 76 Resp 18 B/P (MAP) 134/64 (87) Pulse Ox 92 90 O2 Delivery Nasal Cannula Nasal Cannula Nasal Cannula Room Air O2 Flow Rate 3.00 3.00 3.00 03/18/17 03/18/17 03/18/17 03/18/17 09:39 11:21 11:31 13:00 Temp 97.3 Pulse 83 Resp 18 B/P (MAP) 125/92 (103) Pulse Ox 90 92 O2 Delivery Nasal Cannula Room Air Room Air O2 Flow Rate 2.00 Capillary Refill : Less Than 3 Seconds General Appearance: WD/WN, no apparent distress Eyes: Bilateral Eye Normal Inspection HEENT: PERRL/EOMI, pharynx normal, No scleral icterus (R), No scleral icterus ( L), No photophobia Neck: non-tender, full range of motion, supple, normal inspection Respiratory: chest non-tender, no respiratory distress, no accessory muscle use , wheezing (posterior bases), expiration Cardiovascular: normal peripheral pulses, regular rate, rhythm, no edema, no gallop, no JVD, no murmur Gastrointestinal: normal bowel sounds, non tender, soft, no organomegaly, no pulsatile mass Back: normal inspection, no CVA tenderness, no vertebral tenderness Extremities: normal range of motion, non-tender, normal inspection, no calf tenderness, normal capillary refill Neurologic/Psychiatric: trend investigator II-XII nml as tested, no motor/sensory deficits, alert, normal mood/affect, oriented x 3 Skin: normal color, warm/dry Lymphatic: no adenopathy Clinical Quality Measures AMI/AHF: ASA po Prior to arrival: Yes (324mg PER EMS) DVT/VTE Risk/Contraindication: Risk Factor Score Per Nursin RFS Level Per Nursing on Admit: 4+=Very High Assessment/Plan Assessment/Plan Plan Chest Pain -pt with cardiac history significant for NH, but reports this pain feels different; was accompanied by shortness of breath and unrelieved by nitro x2 at home, although 3rd dose given by EMS did provide some relief -chest pain also accompanied by shortness of breath; pt with known history of COPD and nocturnal oxygen dependence of 2L per NC -chest pain resolved, this morning patient reports no chest pain since being admitted upstairs and that she would like to go home Hypoxia -sats 87% on room air on arrival to ED, brought up to normal range after being placed on 2-3L NC (which is pt's baseline nocturnal requirement) -pt with history of COPD and CXR that shows no evidence on PNA but does demonstrate pulmonary vascular congestion -will treat with albumin and Lasix x1 to see if that improves pt's shortness of breath and decreases or eliminates her need for daytime oxygen requirement -patient maintaining sats off oxygen without difficulty, including with ambulation COPD -will start on steroids; solumedrol 80 mg IVP x1 now, then prednisone 40 mg PO daily x5 days -suspect that patient is having COPD exacerbation vs mild fluid overload based on pt's CXR -will diurese and see if patient responds SIRS -initially WBC slightly elevated, however CRX clear and this AM WBC is WNL -suspect that patient more likely has COPD exacerbation and no PNA, as there is currently no evidence of this - no leukocytosis, no tachycardia or tachypnia, no fever -pt reports feeling back to baseline and requests discharge, will discharge to home and have follow up in clinic next week with PCP DVT Ppx: Lovenox and SCDs Diet: Heart Healthy Dispo: Initially anticipated that patient would require 2-3 nights to wean off O2, but this morning patient is maintaining sats on room air and requesting to be discharged. She is positive ~4L from admission, will diurese x1 and discharge to home later today. ALYSSA IBARRA DO Mar 18, 2017 06:08
[2017-03-18] MEDS: inSUlin (REGULAR) HUMAN 1 UNIT/0.01 ML (CHARGE PER UNIT) SC SCH ×2 (06:43→11:09)
[2017-03-18] MEDS: NS IV 1000 ML 1,000 ML IV SCH (06:51)
[2017-03-18] MEDS ORDERED: meTOprolol TARTRATE 25 MG (LOPRESSOR) TABLET PO SCH ×2 (09:00→21:00)
[2017-03-18] MEDS ORDERED: ASPIRIN E.C. 325 MG (ECOTRIN) TABLET PO SCH (09:00)
--- NOTE | 2017-03-18 09:45 | Diagnostic Imaging Report ---
PA and lateral chest at 912 hours. INDICATION: Sepsis. FINDINGS: The heart size is within normal limits and stable when compared to 03/17/2017. The central pulmonary vascularity is somewhat prominent but there is no evidence for overt failure. There are a few patchy densities in the right lower lobe. These findings are questionable for mild pneumonia/atelectasis. The lungs are otherwise clear. There is no pleural effusion identified. The mediastinum is not widened. The osseous structures are intact. IMPRESSION: 1. In the interval since the prior study, a few patchy areas of increased density has developed in the right lung base. These findings are questionable for mild pneumonia/atelectasis. Clinical followup is recommended. 2. The overall appearance of the chest is otherwise stable. Dictated by: Dictated on workstation # [id number]
[2017-03-18] MEDS ORDERED: FUROSEMIDE 40 MG/4 ML INJ (LASIX) IVP NR (10:30)
[2017-03-18] MEDS ORDERED: ALBUMIN 25% 25 GM/100 ML 50 ML IV NR (10:30)
--- NOTE | 2017-03-18 10:49 | Discharge Summary ---
Diagnosis/Chief Complaint Date of Admission Mar 17, 2017 at 21:45 Date of Discharge 03/18/17 Admission Diagnosis Admission Diagnosis Chest Pain Hypoxia COPD SIRS Type II Diabetes Rheumatoid Arthritis Discharge Diagnosis Chest Pain -pt with cardiac history significant for ND, but reports this pain feels different; was accompanied by shortness of breath and unrelieved by nitro x2 at home, although 3rd dose given by EMS did provide some relief -chest pain also accompanied by shortness of breath; pt with known history of COPD and nocturnal oxygen dependence of 2L per NC -chest pain resolved, this morning patient reports no chest pain since being admitted upstairs and that she would like to go home Hypoxia -sats 87% on room air on arrival to ED, brought up to normal range after being placed on 2-3L NC (which is pt's baseline nocturnal requirement) -pt with history of COPD and CXR that shows no evidence on PNA but does demonstrate pulmonary vascular congestion -will treat with albumin and Lasix x1 to see if that improves pt's shortness of breath and decreases or eliminates her need for daytime oxygen requirement -patient maintaining sats off oxygen without difficulty, including with ambulation COPD -will start on steroids; solumedrol 80 mg IVP x1 now, then prednisone 40 mg PO daily x5 days -suspect that patient is having COPD exacerbation vs mild fluid overload based on pt's CXR -will diurese and see if patient responds SIRS -initially WBC slightly elevated, however CRX clear and this AM WBC is WNL -suspect that patient more likely has COPD exacerbation and no PNA, as there is currently no evidence of this - no leukocytosis, no tachycardia or tachypnia, no fever -pt reports feeling back to baseline and requests discharge, will discharge to home and have follow up in clinic next week with PCP Type II Diabetes Rheumatoid Arthritis Chief Complaint/HPI Chief Complaint/HPI Patient presented to ED last night via EMS with reports of chest pain that is associated with some shortness of breath; reports she has not had pain like this before. Patient was found to have mild elevation in her WBC and mild vascular congestion on her CXR. She was placed in the ICU for further monitoring of her chest pain and shortness of breath. She has an oxygen requirement of 2L per NC while asleep; on arrival to the ED she was found to have sats of 87% on room air while awake which resolved after being placed on 3L NC. No acute events overnight. Discharge Summary-Simple/Stand Consultations Discharge Physical Examination Allergies: Coded Allergies: adhesive tape (Verified Allergy, Unknown, HIVES, 02/21/17) montelukast (Verified Allergy, Unknown, DIZZY AND DROWSY, CONFUSION, ) Sulfa (Sulfonamide Antibiotics) (Unverified Adverse Reaction, Intermediate , 02/21/17) Vitals & I&Os Vital Sign - Last 12Hours Date Time Temp Pulse Resp B/P (MAP) Pulse Ox O2 Delivery O2 Flow Rate FiO2 03/18/17 09:39 90 Nasal Cannula 2.00 03/18/17 07:46 97.9 76 18 134/64 (87) Intake and Output 03/18/17 00:00 Intake Total 4100 ml Balance 4100 ml General Appearance: Alert, Oriented X3, Cooperative, No Acute Distress HEENT: Atraumatic, PERRLA, EOMI, Mucous Memb Moist/[place] Respiratory: Other (expiratory wheezes in posterior bases) Cardiovascular: Regular Rate, Normal S1, Normal S2, No Murmurs Abdominal: Normal Bowel Sounds, Soft, No Tenderness, No Hepatosplenomegaly, No Masses Extremities: No Clubbing, No Cyanosis, No Edema, Normal Pulses, No Tenderness/ Swelling Skin: No Rashes, No Breakdown, No Significant Lesion Neuro: Normal Gait, Normal Speech, Normal Tone, Sensation Intact, Cranial Nerves 3-12 NL Psych/Mental Status: Mental Status NL, Mood NL Hospital Course See final discharge diagnosis. Labs Laboratory Tests Test 03/17/17 20:05 03/17/17 22:52 03/18/17 03:02 03/18/17 08:08 Range/Units White Blood Count 13.6 H 9.0 4.3-11.0 10^3/uL Red Blood Count 5.35 4.74 4.35-5.85 10^6/uL Hemoglobin 15.6 13.8 11.5-16.0 G/DL Hematocrit 46 42 35-52 % Mean Corpuscular Volume 85 88 80-99 FL Mean Corpuscular Hemoglobin 29 29 25-34 PG Mean Corpuscular Hemoglobin Concent 34 33 32-36 G/DL Red Cell Distribution Width 14.9 H 15.0 H 10.0-14.5 % Platelet Count 269 231 130-400 10^3/uL Mean Platelet Volume 10.7 H 10.8 H 7.4-10.4 FL Neutrophils (%) (Auto) 73 69 42-75 % Lymphocytes (%) (Auto) 20 24 12-44 % Monocytes (%) (Auto) 5 5 0-12 % Eosinophils (%) (Auto) 2 2 0-10 % Basophils (%) (Auto) 0 0 0-10 % Neutrophils # (Auto) 9.9 H 6.2 1.8-7.8 X 10^3 Lymphocytes # (Auto) 2.8 2.2 1.0-4.0 X 10^3 Monocytes # (Auto) 0.6 0.5 0.0-1.0 X 10^3 Eosinophils # (Auto) 0.3 0.2 0.0-0.3 10^3/uL Basophils # (Auto) 0.1 0.0 0.0-0.1 10^3/uL Prothrombin Time 12.6 12.2-14.7 SEC INR Comment 0.9 0.8-1.4 Activated Partial Thromboplast Time 26 24-35 SEC D-Dimer 0.31 0.00-0.49 UG/ML Sodium Level 141 144 135-145 MMOL/L Potassium Level 3.5 L 3.8 3.6-5.0 MMOL/L Chloride Level 101 108 H 98-107 MMOL/L Carbon Dioxide Level 29 25 21-32 MMOL/L Anion Gap 11 11 5-14 MMOL/L Blood Urea Nitrogen 9 9 7-18 MG/DL Creatinine 0.78 0.71 0.60-1.30 MG/DL Estimat Glomerular Filtration Rate > 60 > 60 BUN/Creatinine Ratio 12 13 Glucose Level 128 H 117 H 70-105 MG/DL Lactic Acid Level 2.61 *H 0.99 0.50-2.00 MMOL/L Calcium Level 9.6 8.6 8.5-10.1 MG/DL Magnesium Level 1.6 L 1.8-2.4 MG/DL Total Bilirubin 0.5 0.2 0.1-1.0 MG/DL Aspartate Amino Transf (AST/SGOT) 18 12 5-34 U/L Alanine Aminotransferase (ALT/SGPT) 18 15 0-55 U/L Alkaline Phosphatase 58 47 40-136 U/L Myoglobin 22.8 10.0-92.0 NG/ML Troponin I < 0.30 < 0.30 < 0.30 <0.30 NG/ML C-Reactive Protein High Sensitivity 0.44 0.00-0.50 MG/DL Total Protein 6.5 5.4 L 6.4-8.2 GM/DL Albumin 3.8 3.3 3.2-4.5 GM/DL B-Type Natriuretic Peptide 29.3 <100.0 PG/ML Triglycerides Level 87 <150 MG/DL Cholesterol Level 106 < 200 MG/DL LDL Cholesterol Direct 62 1-129 MG/DL VLDL Cholesterol 17 5-40 MG/DL HDL Cholesterol 30 L 40-60 MG/DL Test 03/18/17 11:09 Range/Units Glucometer 179 H 70-110 MG/DL Radiology Reviewed CXR shows mild vascular congestion Discussion & Recommendations Pt rapidly improved. CXR consistent with volume overload, which is consistent with patient being 4L positive on fluid balance. Will diurese x1 with albumin and lasix, treat suspected COPD exacerbation with prednisone burst for 5 days. No antibiotics, as white count is WNL and PNA is not suspected based on exam. Pt is stable on RA and ambulating without difficulty. Will discharge to home and have patient contacted by clinic staff on Monday with appointment for follow up with PCP. Discharge Instructions to patient/family Please see electronic discharge instructions given to patient. Discharge Medications Reviewed and agree with Discharge Medication list on patient's Discharge Instruction sheet Clinical Quality Measures AMI/AHF: ASA po Prior to arrival: Yes (324mg PER EMS) DVT/VTE Risk/Contraindication: Risk Factor Score Per Nursin RFS Level Per Nursing on Admit: 4+=Very High HUGO IBARRA DO Mar 18, 2017 10:49
[2017-03-18] MEDS ORDERED: PRD20T PO (10:59)
[2017-03-18] MEDS ORDERED: guaiFENesin (MUCINEX) 600 MG TAB PO PRN (11:00)
[2017-03-18] MEDS ORDERED: SUCRALFATE 1 GM (CARAFATE) TAB PO SCH (11:00)
[2017-03-18] MEDS ORDERED: NITROGLYCERIN 0.4 MG SL TABS BTL 25'S SL PRN (11:00)
[2017-03-18] MEDS ORDERED: NON-FORMULARY MEDICATION 1 EA EA (Albuterol Sulfate 2.5 MG) IH PRN (11:00)
[2017-03-18] MEDS ORDERED: RT-ALBUTEROL HFA (VENTOLIN) PER PUFF IH PRN (11:00)
[2017-03-18] MEDS ORDERED: HYDROcodone/APAP 7.5 MG/325 MG (LORTAB, LORCET PLUS) TABLET PO PRN (11:00)
--- NOTE | 2017-03-18 11:02 | Discharge Instructions ---
Discharge [facility] Discharge Medications New, Converted or Re-Newed RX: Transmitted to Pharmacy New Medications: Prednisone (Prednisone) 20 Mg Tab 40 MG PO DAILY@0700 for 5 Days, #10 TAB 0 Refills Continued Medications: Albuterol Sulfate (Albuterol Sulfate) 2.5 Mg/0.5 Ml Vial.neb 2.5 MG IH QID PRN for SHORTNESS OF BREATH Albuterol Sulfate (Ventolin Hfa) 18 Gm Hfa.aer.ad 2 PUFF IH Q4H PRN for SHORTNESS OF BREATH Aspirin (Aspirin) 81 Mg Tab.chew 81 MG PO DAILY Baclofen (Baclofen) 10 Mg Tablet 10 MG PO TID Budesonide/Formoterol Fumarate (Symbicort 160-4.5 Mcg Inhaler) 10.2 Gm Hfa.aer.ad 2 PUFF IH BID Buspirone HCl (Buspirone HCl) 10 Mg Tablet 10 MG PO DAILY, TAB Cetirizine HCl (Cetirizine HCl) 10 Mg Tablet 10 MG PO DAILY, TAB Cholecalciferol (Vitamin D3) (Vitamin D3) 2,000 Unit Tablet 2000 UNIT PO DAILY, TAB Citalopram Hydrobromide (Citalopram HBr) 20 Mg Tablet 20 MG PO DAILY, TAB Fish Oil/Dha/Epa (Fish Oil 1,200 mg Fish Oil) 1 Each Capsule 1200 MG PO DAILY Folic Acid (Folic Acid) 1 Mg Tablet 1 MG PO DAILY, TAB Gemfibrozil (Gemfibrozil) 600 Mg Tablet 600 MG PO BID, TAB Guaifenesin (Mucinex) 600 Mg Tab.er.12h 600 MG PO Q12H PRN for CONGESTION, TAB Hydrocodone/Acetaminophen (Hydrocodon-Acetaminoph 7.5-325) 1 Each Tablet 1 TAB PO Q4H PRN for PAIN, #30 TAB Hydroxychloroquine Sulfate (Plaquenil) 200 Mg Tablet 200 MG PO DAILY, TAB Liraglutide (Victoza 3-Vel) 0.6 Mg/0.1 Ml Pen.injctr 1.8 MG SQ DAILY, VIAL Lisinopril (Lisinopril) 20 Mg Tablet 20 MG PO DAILY, TAB Metformin HCl (Metformin HCl) 1,000 Mg Tablet 1000 MG PO BID, TAB Methotrexate Sodium (Methotrexate) 2.5 Mg Tablet 20 MG PO WEEK, TAB take 8 (2.5mg) tabs, takes on Monday Metoprolol Tartrate (Metoprolol Tartrate) 25 Mg Tablet 25 MG PO BID Mometasone Furoate (Nasonex) 17 Gm Naspr 2 SPRAYS NS HS Naproxen Sodium (Aleve) 220 Mg Tablet 220 MG PO BID, TAB Nitroglycerin (Nitroglycerin) 0.4 Mg Tab.subl 0.4 MG SL BID PRN PRN for CHEST PAIN, #30 TAB 3 Refills Pantoprazole Sodium (Protonix) 40 Mg Tablet.dr 40 MG PO BID, #60 TAB After 2 weeks start taking 1 pill per day instead of 1 twice a day. Pregabalin (Lyrica) 100 Mg Capsule 100 MG PO TID, CAP Sucralfate (Carafate) 1 Gm Tablet 1 GM PO Q6H, #120 TAB Trazodone HCl (Trazodone HCl) 50 Mg Tablet 50 MG PO HS, TAB Patient Instructions Patient Instructions -Take medication as prescribed -clinic will contact you on Monday03/21/17 with discharge follow up appointment Return to The [facility] For: chest pain unrelieved by nitro, shortness of breath unrelieved by home inhalers and oxygen Activity & Diet Discharge Diet: ADA Diet Activity as Tolerated: Yes HUGO IBARRA DO Mar 18, 2017 11:02
[2017-03-18] MEDS ORDERED: BACLOFEN 10 MG (LIORESAL) TAB PO SCH (13:00)
[2017-03-18] MEDS ORDERED: PREGABALIN 100 MG (LYRICA) CAPSULE PO SCH (13:00)
[2017-03-18] MEDS ORDERED: metFORMIN 500 MG (GLUCOPHAGE) TAB PO SCH (17:00)
[2017-03-18] MEDS ORDERED: RT-ADVAIR HFA 115/21 MCG PER PUFF IH SCH (20:00)
[2017-03-18] MEDS ORDERED: ATORVASTATIN 40 MG (LIPITOR) TABLET PO SCH (21:00)
[2017-03-18] MEDS ORDERED: traZODone 50 MG (DESYREL) TAB PO SCH (21:00)
[2017-03-18] MEDS ORDERED: PANTOPRAZOLE 40 MG (PROTONIX) TAB PO SCH (21:00)
[2017-03-18] MEDS ORDERED: AZITHROMYCIN 250 MG TAB (ZITHROMAX) PO SCH (21:00)
[2017-03-18] MEDS ORDERED: NAPROXEN 250 MG (NAPROSYN) TABLET PO SCH (21:00)
[2017-03-18] MEDS ORDERED: GEMFIBROZIL 600 MG (LOPID) TAB PO SCH (21:00)
[2017-03-18] MEDS ORDERED: cefTRIAXone INJECTION 1,000 MG in NS (IVPB) 50 ML IV SCH (22:00)
[2017-03-18] MEDS ORDERED: AZITHROMYCIN 250 MG/NS 250 ML IVPB IV SCH ×2 (22:00)
[2017-03-19] MEDS ORDERED: predniSONE 20 MG TAB PO SCH (07:00)
[2017-03-19] MEDS ORDERED: LORATADINE (CLARITIN) 10 MG TAB PO SCH (09:00)
[2017-03-19] MEDS ORDERED: VITAMIN D3 1,000 UNITS (CHOLECALCIFEROL) TABLET PO SCH (09:00)
[2017-03-19] MEDS ORDERED: lisINopril 20 MG (ZESTRIL) TAB PO SCH (09:00)
[2017-03-19] MEDS ORDERED: busPIRone 10 MG (BUSPAR) TAB PO SCH (09:00)
[2017-03-19] MEDS ORDERED: NON-FORMULARY MEDICATION 1 EA EA (Liraglutide (Victoza 3-Pak) 1.8 MG) SQ SCH (09:00)
[2017-03-19] MEDS ORDERED: HYDROXYCHLOROQUINE 200 MG (PLAQUENIL) TAB PO SCH (09:00)
[2017-03-19] MEDS ORDERED: ASPIRIN 81 MG CHEW (CHILDREN'S ASA) PO SCH (09:00)
[2017-03-19] MEDS ORDERED: OMEGA 3 (FISH OIL) 1000 MG CAP PO SCH (09:00)
[2017-03-19] MEDS ORDERED: FOLIC ACID 1 MG TAB PO SCH (09:00)
[2017-03-19] MEDS ORDERED: FLUTICASONE NASAL SPRAY (FLONASE) 16 GM BTL NS SCH (21:00)
[2017-03-20] MEDS ORDERED: METHOTREXATE 2.5 MG TAB PO SCH (09:00)
== END 2017-03-18 13:00 | disposition home or self-care (01) | DRG 313 ==
LOC: EDUNIT# 19:55 → ER 19:57 → ICU 21:45
PROVIDERS: ADMIT Family Medicine; ATTEND Family Medicine
DX: R07.9 Chest pain, unspecified (principal); R09.02 Hypoxemia; J44.1 Chronic obstructive pulmonary disease with (acute) exacerbation; I10 Essential (primary) hypertension; E11.9 Type 2 diabetes mellitus without complications; M06.9 Rheumatoid arthritis, unspecified; E78.5 Hyperlipidemia, unspecified; K21.9 Gastro-esophageal reflux disease without esophagitis; I25.10 Atherosclerotic heart disease of native coronary artery without angina pectoris; I25.2 Old myocardial infarction; F17.210 Nicotine dependence, cigarettes, uncomplicated; Z86.73 Personal history of transient ischemic attack (TIA), and cerebral infarction without residual deficits; F41.9 Anxiety disorder, unspecified; F32.9 Major depressive disorder, single episode, unspecified
CPT/HCPCS: 36415; 71020; 80053; 80061; 82962; 83605; 83735; 83874; 83880; 84484; 85025; 85379; 85610; 85730; 86141; 87040; 93005; 94640; 94664; 94760

== ENCOUNTER → 2017-11-22 | Outpatient (CLI) | payer MEDICAID ==
[~2017-11-22] VITALS: Ht 167.6 cm; Wt 84.4 kg
[~2017-11-22] MED LIST changes: -CITA20TA7 PO; +CITA20TA9 PO; -GEMF600T3 PO; +GEMF600T4 PO; +HYDR-34 PO; -HYDR-3816 PO; -HYDR200T PO; +HYDR200T78 PO; +METF-399 PO; -METF1000 PO; -METH2.5T PO; +MTX2.5T PO; +PRD20T PO; +REGADENOSON 0.4 MG/5 ML SYR (LEXISCAN) IV ONE; +TRAZ-189 PO; -TRAZ-28 PO
[2017-11-22] MEDS: CATHETER FLUSH 10 ML SYR IV PRN ×2 (11:51→13:23)
[2017-11-22 13:20] VITALS: BP 118/63
== END ==
LOC: CARD 11:33
PROVIDERS: ATTEND Internal Medicine Cardiovascular Disease
DX: I25.10 Atherosclerotic heart disease of native coronary artery without angina pectoris (principal); R07.89 Other chest pain; E11.9 Type 2 diabetes mellitus without complications; I10 Essential (primary) hypertension; E78.5 Hyperlipidemia, unspecified; I34.0 Nonrheumatic mitral (valve) insufficiency
CPT/HCPCS: 78452; 93017

== ENCOUNTER → 2017-11-28 | Outpatient (CLI) | payer MEDICAID ==
[~2017-11-28] MED LIST changes: -REGADENOSON 0.4 MG/5 ML SYR (LEXISCAN) IV ONE
== END ==
LOC: CARD 12:53
PROVIDERS: ATTEND Internal Medicine Cardiovascular Disease
DX: I25.10 Atherosclerotic heart disease of native coronary artery without angina pectoris (principal); I65.29 Occlusion and stenosis of unspecified carotid artery; R07.9 Chest pain, unspecified; E11.9 Type 2 diabetes mellitus without complications; I10 Essential (primary) hypertension; E78.5 Hyperlipidemia, unspecified; I34.0 Nonrheumatic mitral (valve) insufficiency
CPT/HCPCS: 93306

== ENCOUNTER → 2017-12-29 | Outpatient (CLI) | payer MEDICAID ==
[2017-12-29 13:07] LABS: BASOPHILS # (AUTO) 0.1 10^3/uL (0.0-0.1); BASOPHILS % (AUTO) 1 % (0-10); EOSINOPHILS # (AUTO) 0.3 10^3/uL (0.0-0.3); EOSINOPHILS % (AUTO) 3 % (0-10); HEMATOCRIT 43 % (35-52); HEMOGLOBIN 14.8 G/DL (11.5-16.0); LYMPHOCYTES # (AUTO) 3.3 X 10^3 (1.0-4.0); LYMPHOCYTES % (AUTO) 29 % (12-44); MEAN CORPUSCULAR HEMOGLOBIN 29 PG (25-34); MEAN CORPUSCULAR HGB CONC 35 G/DL (32-36); MEAN CORPUSCULAR VOLUME 84 FL (80-99); MONOCYTES # (AUTO) 0.8 X 10^3 (0.0-1.0); MONOCYTES % (AUTO) 7 % (0-12); NEUTROPHILS # (AUTO) 6.7 X 10^3 (1.8-7.8); NEUTROPHILS % (AUTO) 60 % (42-75); PLATELET COUNT 269 10^3/uL (130-400); RED BLOOD COUNT 5.08 10^6/uL (4.35-5.85); RED CELL DISTRIBUTION WIDTH 14.9 % (10.0-14.5); WHITE BLOOD COUNT 11.2 10^3/uL (4.3-11.0)
[2017-12-29 13:25] LABS: ALANINE AMINOTRANSFERASE 12 U/L (0-55); ALBUMIN 4.1 GM/DL (3.2-4.5); ALKALINE PHOSPHATASE 54 U/L (40-136); BILIRUBIN,TOTAL 0.5 MG/DL (0.1-1.0); BUN/CREATININE RATIO 9; CALCIUM 9.6 MG/DL (8.5-10.1); CARBON DIOXIDE 22 MMOL/L (21-32); CHLORIDE 99 MMOL/L (98-107); CREATININE SERUM 0.68 MG/DL (0.60-1.30); GFR ESTIMATED > 60; GLUCOSE 95 MG/DL (70-105); POTASSIUM 4.3 MMOL/L (3.6-5.0); SODIUM 132 MMOL/L (135-145); TOTAL PROTEIN 7.6 GM/DL (6.4-8.2)
[2017-12-29 13:26] LABS: ERYTHROCYTE SEDIMENTATION RATE 5 MM/HR (0-30)
[2018-01-01 07:03] LABS: HEPATITIS C ANTIBODY C Non-Reactive (Non-Reactive)
[2018-01-02 16:35] LABS: IMMUNOFIX PATH REPORT NUMBER Complete (Complete)
== END ==
LOC: LAB 12:41
PROVIDERS: ATTEND Internal Medicine Rheumatology
DX: M05.79 Rheumatoid arthritis with rheumatoid factor of multiple sites without organ or systems involvement (principal); Z79.899 Other long term (current) drug therapy
CPT/HCPCS: 36415; 80053; 80074; 84155; 84165; 85025; 85652; 86141; 86200; 86334; 86480

== ENCOUNTER → 2018-03-29 | Outpatient (CLI) | payer MEDICAID ==
[2018-03-29 11:16] LABS: BASOPHILS # (AUTO) 0.1 10^3/uL (0.0-0.1); BASOPHILS % (AUTO) 1 % (0-10); EOSINOPHILS # (AUTO) 0.3 10^3/uL (0.0-0.3); EOSINOPHILS % (AUTO) 4 % (0-10); HEMATOCRIT 42 % (35-52); HEMOGLOBIN 14.2 G/DL (11.5-16.0); LYMPHOCYTES # (AUTO) 2.5 X 10^3 (1.0-4.0); LYMPHOCYTES % (AUTO) 36 % (12-44); MEAN CORPUSCULAR HEMOGLOBIN 30 PG (25-34); MEAN CORPUSCULAR HGB CONC 34 G/DL (32-36); MEAN CORPUSCULAR VOLUME 86 FL (80-99); MEAN PLATELET VOLUME 10.1 FL (7.4-10.4); MONOCYTES # (AUTO) 0.6 X 10^3 (0.0-1.0); MONOCYTES % (AUTO) 8 % (0-12); NEUTROPHILS # (AUTO) 3.7 X 10^3 (1.8-7.8); NEUTROPHILS % (AUTO) 52 % (42-75); PLATELET COUNT 240 10^3/uL (130-400); RED BLOOD COUNT 4.82 10^6/uL (4.35-5.85); RED CELL DISTRIBUTION WIDTH 15.7 % (10.0-14.5); WHITE BLOOD COUNT 7.1 10^3/uL (4.3-11.0)
[2018-03-29 11:34] LABS: ALBUMIN 4.1 GM/DL (3.2-4.5); BILIRUBIN,DIRECT 0.2 MG/DL (0.0-0.3); BILIRUBIN,INDIRECT 0.2 MG/DL; BILIRUBIN,TOTAL 0.4 MG/DL (0.1-1.0); CREATININE SERUM 0.69 MG/DL (0.60-1.30); TOTAL PROTEIN 6.5 GM/DL (6.4-8.2)
[2018-03-29 12:19] LABS: ERYTHROCYTE SEDIMENTATION RATE 5 MM/HR (0-30)
== END ==
LOC: LAB 11:00
PROVIDERS: ATTEND Internal Medicine Rheumatology
DX: M06.041 Rheumatoid arthritis without rheumatoid factor, right hand (principal); Z79.899 Other long term (current) drug therapy
CPT/HCPCS: 36415; 80076; 82565; 85025; 85652; 86141

== ENCOUNTER → 2018-04-11 | Outpatient (CLI) | payer MEDICAID ==
[~2018-04-11] MED LIST changes: -GEMF600T4 PO; +GEMF600T8 PO
--- NOTE | 2018-04-12 08:50 | Diagnostic Imaging Report ---
Indication: Routine screening. Comparison is made with prior mammogram from 03/02/2017 and 12/05/2013. 2-D and 3-D bilateral screening mammography was performed with CAD. Scattered fibroglandular densities are identified bilaterally. Circumscribed nodules in the outer portion of the left breast appear stable. No new mass or malignant-appearing microcalcifications are seen. Axillae are unremarkable. Impression: BI-RADS category 2. No mammographic features suspicious for malignancy are identified. ACR BI-RADS Category 2: Benign findings. Result letter will be mailed to the patient. Note: At least 10% of breast cancer is not imaged by mammography. Dictated by: Dictated on workstation # [id number]
== END ==
LOC: RAD 14:51
PROVIDERS: ATTEND Nurse Practitioner Family
DX: Z12.31 Encounter for screening mammogram for malignant neoplasm of breast (principal)
CPT/HCPCS: 77067

== ENCOUNTER 2018-04-18 12:18 | Outpatient (CLI) | payer MEDICAID ==
[~2018-04-18] VITALS: Ht 167.6 cm; Wt 87.8 kg
[2018-04-18 12:48] VITALS: BP 108/68
[2018-04-18] MEDS ORDERED: SUCR1TAB36 PO (12:57)
[2018-04-18] MEDS ORDERED: ATOR10TA66 PO (12:57)
[2018-04-18] MEDS ORDERED: PANT40TA3 PO (12:57)
[2018-04-18] MEDS ORDERED: PREG150C PO (12:57)
[2018-04-18] MEDS ORDERED: BECL8.7H NS (12:57)
[2018-04-18] MEDS ORDERED: HYDR-3584 PO (12:57)
[2018-04-18] MEDS ORDERED: ONDA4TAB11 PO (12:57)
[2018-04-18] MEDS ORDERED: LISI-556 PO (12:57)
== END 2018-04-18 13:37 | disposition home or self-care (01) ==
LOC: PREOP 12:18
PROVIDERS: ATTEND Orthopaedic Surgery
CPT/HCPCS: 87081

== ENCOUNTER 2018-04-25 09:30 | Day surgery (SDC) | payer MEDICAID ==
[~2018-04-25] VITALS: Ht 167.6 cm; Wt 86.9 kg
[2018-04-25] VITALS (8 sets, daily range): BP systolic 75–125; BP diastolic 45–68
[~2018-04-25 09:30] MED LIST changes: +ATOR10TA66 PO; +BECL8.7H NS; +HYDR-3584 PO; +LISI-556 PO; +ONDA4TAB11 PO; +PANT40TA3 PO; +PREG150C PO
[2018-04-25] MEDS ORDERED: ceFAZolin INJECTION 1,000 MG in WATER (STERILE) FOR INJECTION 10 ML IV ONE (09:45)
[2018-04-25] MEDS ORDERED: oxyCODONE/APAP 5/325MG (PERCOCET 5) TABLET PO PRN (09:45)
[2018-04-25] MEDS ORDERED: LACTATED RINGERS 1,000 ML IV PRN (09:51)
[2018-04-25] MEDS ORDERED: fentaNYL INJECTION 100 MCG/2 ML AMP ONE (10:16)
[2018-04-25] MEDS ORDERED: LIDOCAINE PF 2% 5 ML (XYLOCAINE) VIAL ONE (10:16)
[2018-04-25] MEDS ORDERED: proPOfol 200 MG/20 ML (DIPRIVAN) VIAL IV ONE (10:16)
[2018-04-25] MEDS ORDERED: SEVOFLURANE (ULTANE) 15 ML INHAL SOLN ONE (10:16)
[2018-04-25] MEDS ORDERED: ONDANSETRON 4 MG/2 ML (SDV) Z0FRAN ONE (10:16)
[2018-04-25] MEDS ORDERED: MIDAZOLAM 2 MG/2 ML (VERSED) VIAL ONE (10:17)
[2018-04-25] MEDS ORDERED: BUPIVACAINE 0.5% 30 ML (SENSORCAINE) VIAL ONE (10:26)
--- NOTE | 2018-04-25 11:15 | Progress Note-Pre Operative ---
Pre-Operative Progress Note H&P Reviewed The H&P was reviewed, patient examined and no changes noted. Date Seen by Provider: Apr 25, 2018 Time Seen by Provider: 11:14 Date H&P Reviewed: Apr 25, 2018 Time H&P Reviewed: 11:14 Pre-Operative Diagnosis: left cubital tunnel syndrome CARLOS HORTON MD Apr 25, 2018 11:15
--- NOTE | 2018-04-25 11:16 | Progress Note-Post Operative ---
Post-Operative Progess Note Surgeon (s)/Experimental Technician (s) Surgeon CARLOS HORTON MD Experimental Technician: Gurdeep Mcgrath Pre-Operative Diagnosis left cubital tunnel syndrome Post-Operative Diagnosis left cubital tunnel syndrome Procedure & Operative Findings Date of Procedure 04/25/18 Procedure Performed/Findings left cubital tunnel release Anesthesia Type GETA Estimated Blood Loss Estimated blood loss (mL): minimal Specimens/Packing Specimens Removed none Packing: none CARLOS HORTON MD Apr 25, 2018 11:16
[2018-04-25] MEDS ORDERED: morphine INJ 10 MG/ML 1ML (SYR OR VIAL) IVP ONE (12:00)
[2018-04-25] MEDS ORDERED: ONDANSETRON 4 MG/2 ML (SDV) Z0FRAN IVP PRN (12:00)
--- NOTE | 2018-04-25 12:26 | Anesthesia-General Post-Op ---
General Patient Condition Mental Status/LOC: Same as Preop Cardiovascular: Satisfactory Nausea/Vomiting: Absent Respiratory: Satisfactory Pain: Controlled Complications: Absent Post Op Complications Complications None Follow Up Care/Instructions Patient Instructions None needed. Anesthesia/Patient Condition Patient Condition Patient is doing well, no complaints, stable vital signs, no apparent adverse anesthesia problems. No complications reported per nursing. D/C home per [facility] Criteria: Yes DOMINICK LEVIN CRNA Apr 25, 2018 12:26
[2018-04-25] MEDS ORDERED: OXYC-471 PO (13:15)
--- NOTE | 2018-04-25 13:30 | NUR ---
AT 1330 PATIENT DROWSY WITH OXYGEN SATURATIONS WHEN ASLEEP DROPPED TO MID 80'S AND OXYGEN NC INCREASED TO 5L AND PRESENTED HYPOTENSIVE AT 75/45, BLOOD SUGAR 114. FLUIDS WIDE OPEN FOR BOLUS AND DOMINICK WANG INFORMED. DOMINICK TO BEDSIDE AND PRESSURE TAKEN AGAIN AT 1337 82/53 WITH OXYMASK PLACED ON 5L SATURATIONS AT 93% WITH PATIENT ALERT AND ORIENTED. 1343 BP 99/57, 1349 109/60. Addendum: 04/25/18 at 1402 by CHRISTIANO PEREZ RN AT 1330 PATIENT HAVING DIAPHORESIS
--- NOTE | 2018-04-25 13:37 | NUR ---
DOMINICK WANG GAVE VERBAL ORDER TO GIVE ANOTHER 500ML BOLUS LR WHEN LAST 200 COMPLETED.
--- NOTE | 2018-04-25 14:05 | NUR ---
KATHLEEN TAN ASSESSED PATIENT AGAIN AND THIS RN REPORT BP UP AND NOW MAINTAINING OXYGEN AT 93% ROOM AIR
--- NOTE | 2018-04-25 18:08 | OPERATIVE REPORT ---
DATE OF SERVICE: 04/25/2018 PREOPERATIVE DIAGNOSIS: Left cubital tunnel syndrome. POSTOPERATIVE DIAGNOSIS: Left cubital tunnel syndrome. PROCEDURE: Left cubital tunnel release. SURGEON: Perez Lion MD [facility] CONSULTANT: LYLE Mckeon, who assisted throughout the procedure and closed the incision. ANESTHESIA: General endotracheal by Quincy Gage CRNA. TOURNIQUET TIME: 4 minutes at 250 mmHg. ESTIMATED BLOOD LOSS: Minimal. DRAINS: None. COMPLICATIONS: None. POSTOPERATIVE PLAN: Routine protocol. The patient was transported to the recovery room awake and in stable condition. STATEMENT OF MEDICAL NECESSITY: The patient is a 58-year-old right hand dominant female with complaints of left small finger and ring finger paresthesias and pain. She had a markedly positive elbow flexion test, markedly positive Tinel's at the cubital tunnel. She denied other finger pain and negative Tinel's of the carpal tunnel and negative Phalen's maneuver. Due to functional impairment and failure to improve with conservative measures, the patient elected to proceed with surgical intervention. DESCRIPTION OF PROCEDURE: After risks and benefits of procedure were discussed and questions were answered and informed consent was signed and placed on chart. The operative site was confirmed and the operative limb initialed by the surgeon. The patient was then transferred to the operating room. After adequate levels of general endotracheal anesthetic were obtained, a timeout was called confirming the operative site. The left upper extremity was prepped and draped in the usual sterile fashion with the arm elevated, tourniquet was inflated to 250 mmHg. An L-shaped incision was made posterior to the medial epicondyle. The underlying soft tissues were carefully dissected. The ulnar nerve was identified proximal to the medial epicondyle and dissected free 2.9 cm proximally. This was then dissected through the cubital tunnel and into the flexor/pronator mass. Once fully released, the elbow was taken through a range of motion and no subluxation was noted. The tourniquet was deflated for a total tourniquet time of four minutes. Pressure was used for hemostasis. The wound was copiously irrigated. A 2-0 Vicryl was used to reapproximate subcutaneous tissue and skin was closed with 4-0 nylon in a running alternating horizontal mattress fashion. The incision was infiltrated with plain Marcaine. A soft dressing was applied and the patient was transferred to the recovery room awake and in stable condition. Job ID: [id number] DocumentID: [id number] Dictated Date: 04/25/2018 11:45:16 Innersole Maker Date: 04/25/2018 18:08:04 Dictated By: PEREZ LION MD
--- NOTE | 2018-04-27 08:29 | HISTORY AND PHYSICAL ---
DATE OF SERVICE: 04/25/2018 This will be for outpatient surgery for left cubital tunnel release. HISTORY OF PRESENT ILLNESS: The patient is a 58-year-old right hand dominant female with a 3-month history of left medial elbow pain with associated paresthesias into her ring and small fingers. She reports shooting pain. She denies night pain. She has tried rest, activity modifications without relief. She reports weakness in her hand as well. Due to functional impairment and failure to improve with conservative measures, the patient has elected to proceed with surgical intervention. REVIEW OF SYSTEMS: No chest pain, no shortness of breath, no dysuria. PAST MEDICAL HISTORY: COPD, coronary artery disease, diabetes mellitus, hypertension, rheumatoid arthritis, fibromyalgia and migraines. PAST SURGICAL HISTORY: Cardiac catheterization, cholecystectomy, hysterectomy, tonsillectomy, knee arthroscopy, left wrist and tooth extraction. FAMILY HISTORY: Significant for asthma, hyperlipidemia, diabetes, ischemic heart disease. PRIMARY CARE PROVIDER: [facility]. MEDICATIONS: Ventolin, cetirizine, Aleve, citalopram, fish oil, albuterol, Symbicort, aspirin, metoprolol, Protonix, methotrexate, lisinopril, metformin, baclofen, Victoza, folic acid, Lyrica, hydrocodone, nicotine, hydroxychloroquine, ondansetron, sucralfate, meclizine, trazodone, hydroxyzine, atorvastatin. ALLERGIES: SULFA and SINGULAIR. SOCIAL HISTORY: The patient smokes 3/4 pack a day. Denies alcohol use. PHYSICAL EXAMINATION: GENERAL: The patient is well developed, well-nourished, in no acute distress. HEENT: Normocephalic, atraumatic. Pupils are equal, round and reactive to light. Oropharynx is clear. NECK: Supple. No lymphadenopathy. LUNGS: Clear to auscultation bilaterally. HEART: Regular rate and rhythm. ABDOMEN: Soft, nontender, nondistended. EXTREMITIES: Left elbow demonstrates markedly positive elbow flexion test with markedly positive Tinel's at the cubital tunnel. She has slight intrinsic atrophy noted and weakness with finger abduction. She has negative Spurling's maneuver. IMPRESSION: Left cubital tunnel syndrome. PLAN: Left cubital tunnel release. The risks, benefits, options, ramifications and recovery have been discussed at length with the patient. She understands and wishes to proceed. Job ID: [id number] DocumentID: [id number] Dictated Date: 04/16/2018 11:35:24 Licensed Final Expense Agents Date: 04/16/2018 12:27:21 Dictated By: CARLOS HORTON MD <Dictated by CARLOS HORTON MD> <Electronically signed by CARLOS HORTON MD> 04/17/18 1217
== END 2018-04-25 14:20 | disposition home or self-care (01) ==
LOC: SDC 09:30
PROVIDERS: ATTEND Orthopaedic Surgery
DX: G56.22 Lesion of ulnar nerve, left upper limb (principal); I10 Essential (primary) hypertension; I25.10 Atherosclerotic heart disease of native coronary artery without angina pectoris; J44.9 Chronic obstructive pulmonary disease, unspecified; M06.9 Rheumatoid arthritis, unspecified; F41.9 Anxiety disorder, unspecified; F32.9 Major depressive disorder, single episode, unspecified; K21.9 Gastro-esophageal reflux disease without esophagitis; E11.9 Type 2 diabetes mellitus without complications; F17.210 Nicotine dependence, cigarettes, uncomplicated; Z86.73 Personal history of transient ischemic attack (TIA), and cerebral infarction without residual deficits; Z95.1 Presence of aortocoronary bypass graft; Z99.81 Dependence on supplemental oxygen; Z79.899 Other long term (current) drug therapy; Z79.82 Long term (current) use of aspirin; Z79.84 Long term (current) use of oral hypoglycemic drugs; Z88.2 Allergy status to sulfonamides
CPT/HCPCS: 82962

== ENCOUNTER → 2018-06-25 | Outpatient (CLI) | payer MEDICAID ==
[~2018-06-25] MED LIST changes: +OXYC-471 PO
== END ==
LOC: LAB 12:12
PROVIDERS: ATTEND Internal Medicine Rheumatology
DX: M06.041 Rheumatoid arthritis without rheumatoid factor, right hand (principal); M06.042 Rheumatoid arthritis without rheumatoid factor, left hand
CPT/HCPCS: 36415; 85652; 86141

== ENCOUNTER 2018-08-23 10:41 | Day surgery (SDC) | payer MEDICAID ==
[~2018-08-23] VITALS: Ht 167.6 cm; Wt 86.9 kg
[2018-08-23] VITALS (8 sets, daily range): BP systolic 100–132; BP diastolic 61–83
[~2018-08-23 10:41] MED LIST changes: -TRAZ-189 PO; +TRAZ-222 PO
[2018-08-23] MEDS ORDERED: NS IV 1000 ML 1,000 ML ONE (10:44)
[2018-08-23] MEDS ORDERED: LIDOCAINE 1% INJ 20 ML 20 ML VIAL ONE (10:44)
[2018-08-23] MEDS ORDERED: HEParin (CATH LAB) 2,000 ML IV ONE (10:45)
[2018-08-23] MEDS ORDERED: NS IV 1000 ML 1,000 ML IV SCH (11:00)
[2018-08-23 11:26] LABS: MEAN PLATELET VOLUME 10.5 FL (7.4-10.4); RED CELL DISTRIBUTION WIDTH 14.8 % (10.0-14.5); WHITE BLOOD COUNT 10.6 10^3/uL (4.3-11.0)
[2018-08-23 11:40] LABS: PROTHROMBIN TIME PATIENT 13.4 SEC (12.2-14.7)
[2018-08-23 11:40] LABS: CLARITY,URINE CLEAR; COLOR,URINE YELLOW; GLUCOSE, URINE (UA) NEGATIVE (NEGATIVE); PROTEIN,URINE NEGATIVE (NEGATIVE)
[2018-08-23 11:41] LABS: BACTERIA,URINE FEW /HPF; BILIRUBIN,URINE NEGATIVE (NEGATIVE); KETONES,URINE NEGATIVE (NEGATIVE); LEUKOCYTE ESTERASE ,URINE 3+ (NEGATIVE); NITRITE,URINE NEGATIVE (NEGATIVE); UROBILINOGEN,URINE 0.2 MG/DL (NORMAL)
--- NOTE | 2018-08-23 11:48 | Diagnostic Imaging Report ---
INDICATION: Chest pain and coronary artery disease Time of exam: 11:25 AM Correlation is made with prior study of 03/18/2017. The heart size is normal. The pulmonary vascularity is unremarkable. The lungs are clear. No infiltrate, effusion or pneumothorax is detected. Impression: No acute cardiopulmonary process is detected. Dictated by: Dictated on workstation # [id number]
[2018-08-23 11:50] LABS: ALANINE AMINOTRANSFERASE 21 U/L (0-55); ALBUMIN 4.3 GM/DL (3.2-4.5); ALKALINE PHOSPHATASE 74 U/L (40-136); BILIRUBIN,TOTAL 0.3 MG/DL (0.1-1.0); BUN/CREATININE RATIO 10; CARBON DIOXIDE 25 MMOL/L (21-32); CHLORIDE 99 MMOL/L (98-107); CHOLESTEROL 173 MG/DL (< 200); CREATININE SERUM 0.71 MG/DL (0.60-1.30); GFR ESTIMATED > 60; GLUCOSE 153 MG/DL (70-105); HDL CHOLESTEROL 40 MG/DL (40-60); POTASSIUM 4.4 MMOL/L (3.6-5.0); SODIUM 134 MMOL/L (135-145); TOTAL PROTEIN 7.7 GM/DL (6.4-8.2); TRIGLYCERIDES 141 MG/DL (<150); VLDL CHOLESTEROL 28 MG/DL (5-40)
[2018-08-23] MEDS ORDERED: GUAI600T28 PO (11:53)
[2018-08-23] MEDS ORDERED: PARO10TA3 PO (11:53)
[2018-08-23] MEDS ORDERED: MIDAZOLAM 5 MG/5 ML (VERSED) VIAL ONE (12:28)
[2018-08-23] MEDS ORDERED: fentaNYL INJECTION 100 MCG/2 ML AMP ONE (12:29)
[2018-08-23] MEDS ORDERED: ADENOSINE 3 MG/1 ML (ADENOSCAN) 30ML VIAL IV ONE (13:03)
[2018-08-23] MEDS ORDERED: HEParin 1000 UNIT/ML (10ML VIAL) FOR BOLUS ONE (13:04)
[2018-08-23] MEDS ORDERED: NITRO DRIP 25000 MCG/D5W 0 ML IV ONE (13:10)
[2018-08-23] MEDS ORDERED: CLOPIDOGREL 300 MG (PLAVIX) TABLET PO ONE (13:27)
[2018-08-23] MEDS ORDERED: ASPIRIN 81 MG CHEW (CHILDREN'S ASA) ONE (13:28)
[2018-08-23] MEDS ORDERED: PATIENT MAY USE OWN MEDS, ALL PO SCH (13:30)
[2018-08-23] MEDS ORDERED: RT-ALBUTEROL SULF 2.5 MG/3 ML PRE-MIX VIAL IH PRN ×2 (13:30)
[2018-08-23] MEDS ORDERED: oxyCODONE/APAP 5/325MG (PERCOCET 5) TABLET PO PRN (13:30)
--- NOTE | 2018-08-23 13:37 | Cardiac Cath Report ---
Cardiac Cath Report Physician (s)/Manager School (s) Physician ARVIND CASTELLANOS MD Pre-Procedure Diagnosis Pre-Procedure Diagnosis: chest pain, coronary artery disease Post-Procedure Note Procedure Start Date: Aug 23, 2018 Name of Procedure: left heart catheterization Left ventriculogram Stent to the right coronary artery Findings/Procedure Note PROCEDURE NOTE: 58 years old lady with history of coronary artery disease stent to the LAD, has history of diabetes mellitus, hypertension hyperlipidemia had a borderline stress test, continue to be more symptomatic recently, having accelerating angina, scheduled for cardiac catheterization possible PTCA. After explaining the procedure to the patient, all pros and cons were explained, all questions were answered. The patient signed the consent and then she was placed on the cardiac catheterization laboratory. Groin was prepped SL fashion local anesthesia was used. Sheath placed in the right femoral artery. Charli r ight and left catheter were used to access the coronary system. Pigtail was used to access the left ventricular cavity, left ventriculogram was done. Patient has severe stenosis in the proximal right coronary artery, given 6000 U with heparin, FR guide was used advanced to the right carotid system, BMW was advanced distally, I proceeded with stenting using Antionette 2.5 x 23 mm stent expanded initially with 3.0 then 3.5 noncompliant balloon expanded to 3.5 mm distally and 3.7 mm proximally with excellent results. At the end of the procedure the sheath was removed. Closure device was used FINDINGS: Hemodynamics LV 94/9, and diastolic pressure of 9 Aorta 103/56 mean of 64 ANATOMY: Left Main is free of obstructive disease Left Anterior Descending has 50-60 percent stenosis proximally, patent stent in the midportion, we'll continue to monitor this lesion Left Circumflex is moderate in size with no obstructive disease Right Coronory Artery is dominant artery with 70 percent stenosis proximally successful stenting using Antionette 2.5 x 23 mm stent expanded to 3.5 mm distally and 3.7 mm proximally with excellent results LV Gram was done showing normal left ventricular size and systolic function estimated ejection fraction 60 percent CONCLUSION: 1. Severe stenosis in the proximal right coronary artery successful stenting using Antionette 2.5 x 23 mm stent expanded to 3.5 mm distally and 3.7 mm proximally with excellent results. 2. Patent stent in the mid LAD, there is a 50-60 percent stenosis proximal LAD lesion that need to be monitored closely. 3. Otherwise mild coronary artery disease 4. Normal left ventricular size and systolic pressure estimated ejection fraction 60 percent DISCUSSION AND RECOMMENDATION: I will continue to maximize medical therapy Anesthesia Type: Conscious Sedation Estimated blood loss (mL): 25 ml Contrast Amount: 78 ml Total Radiation Dose: 1016 mGy Post-Procedure Diagnosis Post-operative diagnosis: Chest pain Coronary artery disease Hypertension Hyperlipidemia ARVIND CASTELLANOS MD Aug 23, 2018 13:37
[2018-08-23] MEDS ORDERED: HYDR-3816 PO (16:12)
[2018-08-23] MEDS ORDERED: HYDROcodone/APAP 5 MG/325 MG (LORTAB) TAB PO PRN (16:15)
--- OUTSIDE RECORDS SUMMARY | 2018-08-23 16:38 | XMS REPORT | Clinical Summary ---
Author Author [facility] Organization [facility] Address Unknown Phone Unavailable Care Team Providers Care Warehouse Handler Name Role Phone Arlet Arellano MD Unavailable No Pcp, Na PCP Unavailable Source Comments Some departments are not documenting in the electronic medical record. 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 Last Filed Vital Signs Time Taken Vital Sign Reading 12/23/2015 11:22 AM CDT Blood Pressure 115/72 12/23/2015 11:22 AM CDT Pulse 81 - Temperature - - Respiratory Rate - - Oxygen Saturation - - Inhaled Oxygen - Concentration 12/23/2015 11:22 AM CDT Weight 84.8 kg (187 lb) 12/23/2015 11:22 AM CDT Height 167.6 cm (5' 6") 12/23/2015 11:22 AM CDT Body Mass Index 30.18 Plan of Treatment Health Maintenance Due Date Last Done Comments HEPATITIS C SCREENING 1961 PHYSICAL (COMPREHENSIVE) 1968 EXAM HIV SCREENING 1976 DTAP/TDAP VACCINES (1 - 1979 Tdap) CERVICAL CANCER SCREENING 1991 BREAST CANCER SCREENING 2001 COLORECTAL CANCER 2011 SCREENING SHINGLES RECOMBINANT 2011 VACCINE (1 of 2) INFLUENZA VACCINE 12/18/2018 Results Not on filefrom Last 3 Months Advance Directives Patient has advance care planning documents on file. For more information, laverne meza contact: [address] [phone]
--- OUTSIDE RECORDS SUMMARY | 2018-08-23 16:39 | XMS REPORT ---
Author Author EPHRAIM OROZCO [facility] Address [address] [place] [address] Care Team Providers Care Outcomes Specialist Name Role Phone EPHRAIM OROZCO Unavailable PROBLEMS Type Condition ICD9-CM Code YXX83-QT Code Onset Dates Condition Status SNOMED Code Problem Vitamin D deficiency E55.9 Active 10961070 Problem Hyperlipemia E78.5 Active 94710870 Problem Hypertension I10 Active 97173249 Problem Emphysema, unspecified J43.9 Active 28984222 Problem Gastro-esophageal reflux disease without esophagitis K21.9 Active 064299949 Problem Tobacco abuse Z72.0 Active 399043902 Problem Other hammer toe(s) (acquired), right foot M20.41 Active 305358803 Problem OAB (overactive bladder) N32.81 Active 057313657 Problem Chronic pain G89.29 Active 16829369 Problem Primary insomnia F51.01 Active 5374242 Problem Rheumatoid arthritis involving multiple sites with positive rheumatoid factor M05.79 Active 185647596 Problem Dependence on nocturnal oxygen therapy Z99.81 Active 21387388048579 Problem Periodontitis K05.30 Active 97335536 Problem Other hammer toe(s) (acquired), left foot M20.42 Active 60927107 Problem Neuropathy G62.9 Active 167296281 Problem Hammer toe of left foot M20.42 Active 245137228 Problem Atherosclerotic heart disease of [place] coronary artery 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.10 Active 692042626774857 Problem Other chronic pain G89.29 Active 32219028 Problem Carpal tunnel syndrome of left wrist G56.02 Active 44469961 Problem Allergic rhinitis J30.9 Active 55095026 Problem Cubital tunnel syndrome on left G56.22 Active 43351316 Problem Type 2 diabetes mellitus with diabetic neuropathy, unspecified E11.40 Active 14445087 Problem Anxiety associated with depression F41.8 Active 636082978 Problem Elevated white blood cell count, unspecified D72.829 Active 110007194 Problem Intractable migraine without status migrainosus, unspecified migraine type G43.919 Active 608158001 Problem Acute rheumatoid arthritis M06.9 Active 32321468 Problem Fibromyalgia M79.7 Active 799817242 ALLERGIES No Information ENCOUNTERS Encounter Location Date Diagnosis [facility], [place] [id number] [place] [address] Jun, [facility], [place] [id number] [place] [address] Jun, [facility], [place] [address] [address] Jun, Chronic pain G89.29 [facility], [place] [address] [address] May, Emphysema, unspecified J43.9 [facility], [place] [id number] [place] [address] May, Chronic pain G89.29 [facility] [id number] [place] [address] May, Acute cystitis without hematuria N30.00 ; UTI symptoms R39.9 and Viral upper respiratory tract infection J06.9 [facility], [place] [id number] [place] [address] May, [facility], [place] [id number] [place] [address] Apr, Chronic pain G89.29 [facility], [place] [id number] [place] [address] Apr, Rheumatoid arthritis involving multiple sites with positive rheumatoid factor M05.79 and Fibromyalgia M79.7 [facility], [place] [id number] [place] [address] Apr, Bronchitis J40 [facility], [place] [id number] [place] [address] Apr, [facility], [place] [address] [place] [address] 2018 [facility] [place] [id number] [place] [address] Apr, [place] [id number] [place] [address] Mar, Chronic pain G89.29 [facility] [address] [address] Mar, Fever of unknown origin R50.9 and Acute nasopharyngitis J00 [place] [id number] [place] [address] Mar, [place] [address] [address] Mar, Chronic pain G89.29 [place] [address] [address] Mar, Emphysema, unspecified J43.9 and 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 M05.731 [place] [id number] [place] [address] Mar, Well woman exam without gynecological exam Z00.00 [place] [id number] [place] [address] 11 Mar, 2018 Onychomycosis B35.1 ; Contusion of lesser toe of right foot without damage to nail, initial encounter S90.121A and Type 2 diabetes mellitus with diabetic neuropathy, unspecified E11.40 [place] [id number] [place] [address] Mar, Allergic rhinitis J30.9 and Neuropathy G62.9 [facility] [id number] [place] [address] Feb, Chronic pain G89.29 [place] [id number] [place] [address] Feb, Cubital tunnel syndrome on left G56.22 [facility], [place] [id number] [place] [address] 14 Feb, 2018 [place] [id number] [place] [address] Feb, Chronic pain G89.29 ; Fibromyalgia M79.7 and Carpal tunnel syndrome of left wrist G56.02 [place] [address] [address] Feb, [place] [address] [address] Feb, Type 2 diabetes mellitus with diabetic neuropathy, unspecified E11.40 and Neuropathy G62.9 [place] [id number] [place] [address] Feb, Chronic pain G89.29 [facility] [address] [address] Jan, Pain of toe of right foot M79.674 and Acute maxillary sinusitis, recurrence not specified J01.00 [place] [id number] [place] [address] Jan, Emphysema, unspecified J43.9 and Neuropathy G62.9 [place] [id number] [place] [address] Jan, Chronic pain G89.29 [place] [id number] [place] [address] Dec, [place] [id number] [place] [address] Dec, Rheumatoid arthritis involving multiple sites with positive rheumatoid factor M05.79 [facility], [place] [id number] [place] [address] Dec, Rheumatoid arthritis involving multiple sites with positive rheumatoid factor M05.79 [place] [address] [address] Dec, Rheumatoid arthritis involving multiple sites with positive rheumatoid factor M05.79 and Need for hepatitis C screening test Z11.59 [place] [id number] [place] [address] Dec, Acute rheumatoid arthritis M06.9 [place] [address] [address] Dec, [place] [address] [address] Dec, Type 2 diabetes mellitus with diabetic neuropathy, unspecified E11.40 and Neuropathy G62.9 [place] [address] [address] Dec, Chronic pain G89.29 [place] [address] [address] Nov, Type 2 diabetes mellitus with diabetic neuropathy, unspecified E11.40 ; Neuropathy G62.9 ; Hypertension I10 ; Dependence on nocturnal oxygen therapy Z99.81 ; Emphysema, unspecified J43.9 and Encounter for immunization Z23 [place] [address] [address] 07 Nov, 2017 Chronic pain G89.29 [place] [id number] [place] [address] Nov, Chronic pain G89.29 [facility] [id number] [place] [address] Oct, Dysuria R30.0 ; Intractable migraine without status migrainosus, unspecified migraine type G43.919 and Back pain at L4-L5 level M54.5 [place] [id number] [place] [address] Oct, Orthostatic hypotension I95.1 [place] [id number] [place] [address] Oct, Localized swelling of both lower legs R22.43 ; Onychomycosis B35.1 and Type 2 diabetes mellitus with diabetic neuropathy, unspecified E11.40 [place] [id number] [place] [address] Oct, [place] [id number] [place] [address] Oct, Elevated white blood cell count, unspecified D72.829 [place] [id number] [place] [address] Oct, Elevated white blood cell count, unspecified D72.829 [place] [id number] [place] [address] Oct, Chronic pain G89.29 [place] [id number] [place] [address] Oct, [place] [id number] [place] [address] Oct, [place] [id number] [place] [address] Oct, Orthostatic hypotension I95.1 ; Dizziness R42 and Neuropathy G62.9 [facility] IN [facility] [id number] [place] [address] Oct, Dizziness R42 ; Low back pain M54.5 ; Other chronic pain G89.29 ; Nausea R11.0 and Orthostatic hypotension I95.1 [place] [id number] [place] [address] Sep, Rheumatoid arthritis involving multiple sites with positive rheumatoid factor M05.79 and Tobacco abuse Z72.0 [place] [id number] [place] [address] Sep, Chronic pain G89.29 [place] [id number] [place] [address] Aug, Type 2 diabetes mellitus with diabetic neuropathy, unspecified E11.40 ; Hypertension I10 ; Hyperlipemia E78.5 ; Gastro-esophageal reflux disease without esophagitis K21.9 ; Emphysema, unspecified J43.9 ; Anxiety associated with depression F41.8 ; Vitamin D deficiency E55.9 ; Chronic pain G89.29 ; Tobacco abuse Z72.0 ; Overweight (BMI 25.0-29.9) E66.3 ; Atherosclerotic heart disease of [place] coronary artery 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.10 ; OAB (overactive bladder) N32.81 and Primary insomnia F51.01 [place] [address] [address] July, [place] [address] [address] July, [place] [address] [address] July, Chronic pain G89.29 [place] [address] [address] July, [place] [address] [address] July, Onychomycosis B35.1 ; Hammer toe of left foot M20.42 and Type 2 diabetes mellitus with diabetic neuropathy, unspecified E11.40 [place] [id number] [place] [address] July, [place] [address] [address] July, Chronic pain G89.29 and Neuropathy G62.9 [place] [id number] [place] [address] July, [place] [address] [address] July, [place] [address] [address] Jun, [place] [address] [place] [address] 20 Jun, 2017 Chronic pain G89.29 [facility], [place] [id number] [place] [address] Jun, [facility], [place] [id number] [place] [address] Jun, [facility], [place] [id number] [place] [address] Jun, Visit for TB skin test Z11.1 [facility], [place] [id number] [place] [address] 16 Jun, 2017 [facility] [place] [id number] [place] [address] Jun, [facility] [place] [id number] [place] [address] Jun, Tobacco abuse Z72.0 and Rheumatoid arthritis involving multiple sites with positive rheumatoid factor M05.79 [facility], [place] [id number] [place] [address] Jun, Anxiety F41.9 ; Acute non-recurrent maxillary sinusitis J01.00 and Chronic pain G89.29 [facility], [place] [address] [place] [address] Jun, [facility] [place] [address] [place] [address] May, Rheumatoid arthritis involving multiple sites with positive rheumatoid factor M05.79 [facility], [place] [address] [place] [address] May, Chronic pain G89.29 [facility], [place] [id number] [place] [address] 14 May, 2017 [facility] [place] [address] [place] [address] 07 May, 2017 [facility] [place] [id number] [place] [address] May, [place] [address] [place] [address] May, Type 2 diabetes mellitus with diabetic neuropathy, unspecified E11.40 [place] [id number] [place] [address] May, Type 2 diabetes mellitus with diabetic neuropathy, unspecified E11.40 ; Emphysema, unspecified J43.9 ; Hypertension I10 ; Hyperlipemia E78.5 ; Vitamin D deficiency E55.9 ; Right medial knee pain M25.561 ; Controlled substance agreement signed Z79.899 ; Chronic pain G89.29 ; Allergic rhinitis J30.9 ; Anxiety associated with depression F41.8 ; Neuropathy G62.9 and Gastro- esophageal reflux disease without esophagitis K21.9 [place] [id number] [place] [address] Apr, Chronic pain G89.29 [place] [id number] [place] [address] Apr, Other hammer toe(s) (acquired), left foot M20.42 ; Other hammer toe(s) (acquired), right foot M20.41 ; Type 2 diabetes mellitus with diabetic neuropathy, unspecified E11.40 and Onychomycosis B35.1 [place] [address] [place] [address] 2017 Gastro-esophageal reflux disease without esophagitis K21.9 [place] [address] [place] [address] Apr, Controlled substance agreement signed Z79.899 [place] [id number] [place] [address] Mar, Chronic pain G89.29 [place] [id number] [place] [address] Mar, Emphysema, unspecified J43.9 and Type 2 diabetes mellitus with diabetic neuropathy, unspecified E11.40 [facility] IN [facility] [id number] [place] [address] Mar, Dysuria R30.0 ; Vaginal candidiasis B37.3 and Acute nonintractable headache, unspecified headache type R51 [facility], [place] [id number] [place] [address] Feb, Neuropathy G62.9 and Chronic pain G89.29 [place] [address] [address] Feb, Gastro-esophageal reflux disease without esophagitis K21.9 [place] [address] [address] Feb, [place] [address] [address] Feb, Rheumatoid arthritis involving multiple sites with positive rheumatoid factor M05.79 and COPD with acute exacerbation J44.1 [place] [address] [address] Feb, Vaginal odor N89.8 ; Vaginal irritation N89.8 ; Candidal dermatitis B37.2 and Screening breast examination Z12.31 [place] [id number] [place] [address] Feb, [place] [id number] [place] [address] Feb, [place] [id number] [place] [address] Feb, [place] [id number] [place] [address] Feb, COPD with exacerbation J44.1 ; Tobacco abuse counseling Z71.6 ; Tobacco abuse Z72.0 ; Rheumatoid arthritis involving multiple sites with positive rheumatoid factor M05.79 and Hyperlipemia E78.5 [place] [address] [address] Feb, [facility] [address] [place] [phone] Jan, [facility] [place] [address] [address] Jan, Chronic pain G89.29 [facility] [id number] [place] [phone] Jan, Dental examination Z01.20 [facility] [address] [address] Jan, Back pain of lumbar region with sciatica M54.40 [facility] [address] [address] 15 Jan, 2017 Acute bacterial conjunctivitis of both eyes H10.33 [place] [address] [address] 02 Jan, 2017 Chronic pain G89.29 [place] [id number] [place] [address] Dec, Type 2 diabetes mellitus with diabetic neuropathy, unspecified E11.40 ; Hypertension I10 ; Hyperlipemia E78.5 ; Gastro-esophageal reflux disease without esophagitis K21.9 ; Anxiety associated with depression F41.8 ; Allergic rhinitis J30.9 ; Neuropathy G62.9 and Dependence on nocturnal oxygen therapy Z99.81 [place] [id number] [place] [address] Dec, [place] [id number] [place] [address] Dec, [place] [address] [address] Dec, Encounter for immunization Z23 [place] [id number] [place] [address] 05 Dec, 2016 Type 2 diabetes mellitus with diabetic neuropathy, unspecified E11.40 and Chronic pain G89.29 [place] [address] [place] [address] 11 Nov, 2016 Gastro-esophageal reflux disease without esophagitis K21.9 [facility] [place] [address] [address] 11 Nov, 2016 Peripheral edema R60.9 and Chest pain in adult R07.9 [facility] [place] [address] [address] 07 Nov, 2016 Chronic pain G89.29 [facility] [place] [address] [address] 31 Oct, 2016 [place] [address] [address] Oct, [facility] [place] [id number] [place] [address] 17 Oct, 2016 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 M05.731 [place] [address] [address] 15 Oct, 2016 [facility] [address] [address] 14 Oct, 2016 Acute exacerbation of chronic obstructive pulmonary disease (COPD) J44.1 and Canker sore K12.0 [facility] [place] [id number] [place] [address] Oct, [facility] [place] [id number] [place] [address] Oct, [facility] [place] [id number] [place] [address] 09 Oct, 2016 Chronic pain G89.29 [facility] [id number] [place] [phone] Oct, Dental examination Z01.20 [facility] [place] [id number] [place] [address] Oct, Dental examination Z01.20 and Periodontitis K05.30 [facility] [address] [place] [phone] Oct, Dental examination Z01.20 [facility] [id number] [place] [address] Sep, Abscess L02.91 [facility] [place] [id number] [place] [address] Sep, Dental examination Z01.20 [facility] [place] [id number] [place] [address] Sep, [facility] [id number] [place] [phone] Sep, Dental examination Z01.20 and Dental caries K02.9 [facility] [place] [id number] [place] [address] Sep, Primary insomnia F51.01 and Anxiety associated with depression F41.8 [place] [id number] [place] [address] Sep, 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 M05.731 [place] [id number] [place] [address] Sep, Chronic pain G89.29 [place] [address] [address] Sep, Type 2 diabetes mellitus with diabetic neuropathy, unspecified E11.40 ; Emphysema, unspecified J43.9 ; Gastro-esophageal reflux disease without esophagitis K21.9 ; Hypertension I10 ; Hyperlipemia E78.5 ; Anxiety associated with depression F41.8 ; Chronic pain G89.29 ; Vitamin D deficiency E55.9 and Primary insomnia F51.01 [place] [id number] [place] [address] 16 Aug, 2016 Anxiety associated with depression F41.8 [place] [address] [address] Aug, Chronic pain G89.29 and Neuropathy G62.9 [place] [id number] [place] [address] Aug, Type 2 diabetes mellitus with diabetic neuropathy, unspecified E11.40 ; Rheumatoid arthritis involving multiple sites with positive rheumatoid factor M05.79 ; Vitamin D deficiency E55.9 ; Anxiety associated with depression F41.8 and Primary insomnia F51.01 [place] [address] [address] [place] [id number] [place] [address] July, Emphysema, unspecified J43.9 [place] [address] [place] [id number] [place] [address] July, Allergic rhinitis J30.9 [place] [address] [place] [id number] [place] [phone] July, Allergic rhinitis J30.9 ; Emphysema, unspecified J43.9 and 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 M05.731 [place] [address] [address] [place] [id number] [place] [address] July, Neuropathy G62.9 and Chronic pain G89.29 [place] [address] [address] [place] [id number] [place] [id number] July, Rheumatoid arthritis involving multiple sites with positive rheumatoid factor M05.79 [place] [address] [place] [id number] [place] [id number] Jun, [place] [address] [place] [id number] [place] [id number] Jun, Neuropathy G62.9 and Chronic pain G89.29 [place] [address] [place] [id number] [place] [address] May, Neuropathy G62.9 and Chronic pain G89.29 [place] [address] [place] [id number] [place] [phone] May, [place] [address] [place] [id number] [place] [phone] May, [place] [address] [place] [id number] [place] [id number] May, Type 2 diabetes mellitus with diabetic neuropathy, unspecified E11.40 ; Vitamin D deficiency E55.9 ; OAB (overactive bladder) N32.81 ; Gastro- esophageal reflux disease without esophagitis K21.9 ; Hypertension I10 ; Hyperlipemia E78.5 ; Allergic rhinitis J30.9 ; Neuropathy G62.9 ; Chronic pain G89.29 ; Emphysema, unspecified J43.9 ; Anxiety associated with depression F41.8 ; 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 M05.731 and Rheumatoid arthritis of left wrist without organ or system involvement with positive rheumatoid factor M05.732 [place] [id number] [place] [address] Apr, Chronic pain G89.[address] [address] Mar, Gastro-esophageal reflux disease without esophagitis K21.9 [place] [address] [place] [id number] [place] [address] Mar, [place] [address] [address] Mar, 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 M05.731 [place] [id number] [place] [address] Mar, Chronic pain G89.29 [place] [id number] [place] [address] Feb, Hyperlipemia E78.[address] [address] Feb, Abnormal breath sounds R06.89 ; COPD with exacerbation J44.1 and Fatigue, unspecified type R53.[address] [address] Feb, Neuropathy G62.9 ; Abnormal lung sounds R09.89 and Bronchitis J40 [facility] [id number] [place] [address] Feb, Bronchitis J40 [facility] [place] [id number] [place] [address] Feb, Chronic pain G89.29 [place] [address] [place] [id number] [place] [address] Jan, Type 2 diabetes mellitus with diabetic neuropathy, unspecified E11.40 ; 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 M05.731 and Hyperlipemia E78.5 [place] [address] [place] [id number] [place] [address] Jan, 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 M05.731 [place] [address] [place] [id number] [place] [address] Jan, De Quervain's disease (radial styloid tenosynovitis) M65.4 ; Closed nondisplaced fracture of scaphoid of left wrist, unspecified portion of scaphoid, initial encounter S62.002A and Peripheral tear of medial meniscus of left knee, unspecified whether old or current tear, initial encounter S83.222A [place] [address] [place] [id number] [place] [address] Jan, Hypertension I10 ; Type 2 diabetes mellitus with diabetic neuropathy, unspecified E11.40 ; Hyperlipemia E78.5 ; Allergic rhinitis J30.9 ; Neuropathy G62.9 ; 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 M05.731 ; Acute non-recurrent maxillary sinusitis J01.00 and Chronic pain G89.29 [facility] [place] [address] [place] [address] Dec, [place] [address] [place] [id number] [place] [address] Dec, [place] [address] [place] [id number] [place] [address] Dec, Type 2 diabetes mellitus with diabetic neuropathy, unspecified E11.40 ; Emphysema, unspecified J43.9 ; Gastro-esophageal reflux disease without esophagitis K21.9 ; Hypertension I10 ; Hyperlipemia E78.5 ; 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 M05.731 ; Elevated white blood cell count, unspecified D72.829 ; Acute non- recurrent frontal sinusitis J01.10 and Chronic pain G89.29 [place] [address] [place] [id number] [place] [address] Nov, [place] [address] [address] Nov, Elevated white blood cell count, unspecified D72.829 ; Encounter for immunization Z23 ; 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 M05.731 ; Injury of left hand S69.92XA ; Pain in left knee M25.562 and Other chronic pain G89.29 [place] [address] [place] [id number] [place] [address] Nov, [place] [address] [place] [id number] [place] [address] Nov, [place] [address] [place] [id number] [place] [address] Oct, [place] [address] [place] [id number] [place] [address] Oct, Hyperlipemia E78.5 [place] [address] [place] [id number] [place] [address] Oct, [place] [address] [address] Oct, Type 2 diabetes mellitus with diabetic neuropathy, unspecified E11.40 ; Neuropathy G62.9 ; Hypertension I10 ; Chronic pain G89.29 and Hyperlipemia E78.5 [place] [address] [place] [id number] [place] [address] Oct, Emphysema, unspecified J43.9 and Rheumatoid arthritis of left wrist without organ or system involvement with positive rheumatoid factor M05.732 [place] [address] [place] [id number] [place] [address] Sep, Chronic pain syndrome G89.4 [place] [address] [address] Sep, [place] [address] [place] [id number] [place] [address] Sep, [place] [address] [address] Sep, Closed nondisplaced fracture of scaphoid of left wrist, unspecified portion of scaphoid, initial encounter S62.002A [place] [address] [address] Sep, Type 2 diabetes mellitus with diabetic neuropathy, unspecified E11.40 ; Hypertension I10 ; Hyperlipemia E78.5 and Acute non-recurrent maxillary sinusitis J01.00 [place] [address] [place] [id number] [place] [address] Sep, [place] [address] [place] [id number] [place] [address] Sep, [place] [address] [place] [id number] [place] [address] Sep, [place] [address] [place] [id number] [place] [address] Sep, [place] [address] [address] Aug, Epigastric pain R10.13 and Right upper quadrant pain R10.11 [place] [address] [place] [id number] [place] [address] Aug, Closed nondisplaced fracture of scaphoid of left wrist, unspecified portion of scaphoid, initial encounter S62.002A [place] [address] [place] [id number] [place] [address] Aug, [place] [address] [place] [id number] [place] [address] Aug, [facility] [address] [place] [id number] [place] [address] Aug, Shortness of breath R06.02 ; Epigastric pain R10.13 and Injury of left lower arm, initial encounter S59.912A [place] [address] [place] [id number] [place] [address] Aug, Coronary artery disease involving [place] heart with angina pectoris, unspecified vessel or lesion type I25.119 ; Pulmonary emphysema, unspecified emphysema type J43.9 and Snoring R06.83 [place] [address] [place] [id number] [place] [address] Aug, [place] [address] [place] [id number] [place] [address] Aug, Emphysema, unspecified J43.9 ; Atherosclerotic heart disease of [place] coronary artery 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.10 and Hypertension I10 [place] [address] [place] [id number] [place] [address] July, [place] [address] [place] [id number] [place] [address] July, Closed nondisplaced fracture of scaphoid of left wrist, unspecified portion of scaphoid, initial encounter S62.002A [place] [address] [place] [id number] [place] [address] July, [place] [address] [place] [id number] [place] [address] July, Type 2 diabetes mellitus with diabetic neuropathy, unspecified E11.40 ; Emphysema, unspecified J43.9 ; Atherosclerotic heart disease of [place] coronary artery 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.10 ; Hypertension I10 ; Hyperlipemia E78.5 ; 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 M05.731 ; Rheumatoid arthritis of left wrist without organ or system involvement with positive rheumatoid factor M05.732 ; Neuropathy G62.9 ; Gastro-esophageal reflux disease without esophagitis K21.9 ; Irritant contact dermatitis due to other agents L24.89 and Hospital discharge follow-up Z09 [place] [address] [place] [id number] [place] [address] July, [place] [address] [place] [id number] [place] [address] July, Type 2 diabetes mellitus with diabetic neuropathy, unspecified E11.40 [place] [address] [place] [id number] [place] [address] July, Type 2 diabetes mellitus with diabetic neuropathy, unspecified E11.40 and Rheumatoid arthritis of left wrist without organ or system involvement with positive rheumatoid factor M05.732 [place] [address] [place] [id number] [place] [address] July, [place] [address] [place] [id number] [place] [address] July, [place] [address] [place] [id number] [place] [address] Jun, [place] [address] [place] [id number] [place] [address] Jun, [place] [address] [place] [id number] [place] [address] Jun, 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 [place] [address] [place] [id number] [place] [address] Jun, [place] [address] [place] [id number] [place] [address] Jun, 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 [place] [address] [place] [address] [address] Jun, [place] [address] [place] [id number] [place] [address] Jun, [place] [address] [place] [id number] [place] [address] Jun, Encounter for PPD test Z11.1 ; 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 M05.731 and Rheumatoid arthritis of left wrist without organ or system involvement with positive rheumatoid factor M05.732 [place] [address] [place] [id number] [place] [address] Jun, Type 2 diabetes mellitus with diabetic neuropathy, unspecified E11.40 [place] [address] [place] [id number] [place] [address] May, Type 2 diabetes mellitus with diabetic neuropathy, unspecified E11.40 ; Emphysema, unspecified J43.9 ; 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 M05.731 ; Rheumatoid arthritis of left wrist without organ or system involvement with positive rheumatoid factor M05.732 and Chronic pain G89.29 [place] [address] [place] [id number] [place] [address] May, [place] [address] [place] [id number] [place] [address] May, Swelling of hand joint M25.449 ; Ankle swelling M25.473 and Joint pain M25.50 [place] [address] [place] [id number] [place] [address] May, Emphysema, unspecified J43.9 [place] [address] [place] [id number] [place] [address] May, Gastroenteritis K52.9 and Hypertension I10 [place] [address] [place] [id number] [place] [address] Apr, [place] [address] [address] Apr, [place] [address] [place] [id number] [place] [address] Apr, [address] [address] Apr, Type 2 diabetes mellitus with diabetic neuropathy, unspecified E11.40 ; Emphysema, unspecified J43.9 ; Atherosclerotic heart disease of [place] coronary artery 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.10 ; Migraine without aura, not intractable, with status migrainosus G43.001 ; Gastro-esophageal reflux disease without esophagitis K21.9 ; CAD (coronary artery disease) I25.10 ; Hypertension I10 ; Hyperlipemia E78.5 ; Allergic rhinitis J30.9 ; Neuropathy G62.9 ; Anxiety associated with depression F41.8 and Injury of left hand S69.92XA [address] [address] Apr, [address] [address] Apr, [place] [id number] [place] [address] Apr, Type 2 diabetes mellitus with diabetic neuropathy, unspecified E11.40 ; Emphysema, unspecified J43.9 ; Essential (primary) hypertension I10 ; Atherosclerotic heart disease of [place] coronary artery 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.10 ; Gastro-esophageal reflux disease without esophagitis K21.9 ; CAD (coronary artery disease) I25.10 ; Hyperlipemia E78.5 ; Hypertension I10 ; History of solitary pulmonary nodule Z87.898 ; Allergic rhinitis J30.9 ; Chronic pain G89.29 and Depression with anxiety F41.[address] [address] Mar, [address] [address] Mar, Allergic rhinitis J30.9 ; URI (upper respiratory infection) J06.9 and Other viral agents as the cause of diseases classified elsewhere B97.89 [facility] [address] [place] [id number] [place] [address] Feb, Acute nasopharyngitis [common cold] J00 and Acute diarrhea R19.7 [facility] [place] [address] [place] [id number] [place] [address] Feb, Depression F32.9 [place] [address] [address] Jan, Otitis media, right H66.91 [place] [address] [place] [id number] [place] [address] Jan, [place] [address] [place] [id number] [place] [address] Jan, Type 2 diabetes mellitus with diabetic neuropathy, unspecified E11.40 [place] [address] [address] Jan, [place] [address] [place] [id number] [place] [address] Jan, Hyperlipemia E78.5 [place] [address] [place] [id number] [place] [address] Jan, Type 2 diabetes mellitus with diabetic neuropathy, unspecified E11.40 ; Emphysema, unspecified J43.9 ; CAD (coronary artery disease) I25.10 and Hyperlipemia E78.5 [place] [address] [place] [id number] [place] [address] Dec, Allergic rhinitis J30.9 and Fungal infection B49 [place] [address] [place] [id number] [place] [address] Dec, [place] [address] [place] [id number] [place] [address] Dec, [place] [address] [place] [id number] [place] [address] Dec, Chest pain R07.9 ; CAD (coronary artery disease) I25.10 ; Hypertension I10 and Hyperlipemia E78.5 [place] [address] [address] Dec, Pain in thoracic spine M54.6 ; Gastro-esophageal reflux disease without esophagitis K21.9 ; Emphysema, unspecified J43.9 and Migraine without aura, not intractable, with status migrainosus G43.001 [place] [address] [address] Dec, [place] [address] [address] Nov, Influenza vaccine administered V04.81 [place] [address] [address] Nov, [place] [address] [address] Sep, [place] [address] [address] Sep, [place] [address] [address] Sep, CAD (coronary artery disease) 414.00 and Diabetes type 2, uncontrolled 250.[address] [address] Sep, CAD (coronary artery disease) 414.00 ; Diabetes type 2, uncontrolled 250.02 and Migraine 346.90 IMMUNIZATIONS No Known Immunizations SOCIAL HISTORY Never Assessed REASON FOR VISIT Medication refill request PLAN OF CARE VITAL SIGNS MEDICATIONS Medication Instructions Dosage Frequency Start Date End Date Duration Status Qnasl 80 MCG/ACT Nasally Once a day 2 sprays in each nostril 24h 30 Active Ventolin HFA 108 (90 base) mcg/act Inhalation every 6 hrs PRN 2 puffs as needed Active Citalopram Hydrobromide 20 MG TAKE ONE TABLET BY MOUTH ONCE DAILY 30 Active Victoza 18 MG/3ML INJECT 1.8 MG SUBCUTANEOUSLY ONCE DAILY 30 Active RESULTS No Results PROCEDURES No Known procedures INSTRUCTIONS MEDICATIONS ADMINISTERED No Known Medications MEDICAL (GENERAL) HISTORY Type Description Date Medical History COPD Medical History Type 2 Diabetes Medical History HTN Medical History Cardiac stents July 2010 post [place]-stent to LAD Medical History Rheumatoid Arthritis Medical History 04/2016---Echo- 60%//mild hypertrophy at the base of the septum, mild mitral regurg/ mild tricuspid regurg. PAP about 10-15 mmHg Medical History 04/2016------Normal Lexiscan Medical History Elevated white blood cell count, unspecified Medical History Atherosclerotic heart disease of [place] coronary artery without angina pectoris Medical History Migraine without aura, not intractable, with status migrainosus Medical History Colonoscopy 03/05- needs repeat in 5 years due to polyp Surgical History hysterectomy Surgical History cholecystectomy Surgical History tonsilectomy Surgical History hernia Surgical History heart cath 2014 Surgical History stent 07/20/2010 Surgical History tendon repair-left wrist Surgical History left knee repair june 2016 Surgical History Teeth extraction 04/2017 Surgical History Left elbow 04/2018 Hospitalization History surgery related Hospitalization History heart cath
--- OUTSIDE RECORDS SUMMARY | 2018-08-23 16:40 | XMS REPORT ---
Author Author NAOMY JESÚS Organization [facility] Address [address] [place] [address] Care Team Providers Care Copy Center Operator Name Role Phone DAY MORALEZIN Unavailable PROBLEMS Type Condition ICD9-CM Code XQK66-NS Code Onset Dates Condition Status SNOMED Code Problem Other hammer toe(s) (acquired), left foot M20.42 Active 47839430 Problem Tobacco abuse Z72.0 Active 488739833 Problem Other hammer toe(s) (acquired), right foot M20.41 Active 063880920 Problem Acute rheumatoid arthritis M06.9 Active 27252143 Problem Emphysema, unspecified J43.9 Active 30526080 Problem Intractable migraine without status migrainosus, unspecified migraine type G43.919 Active 738111879 Problem Gastro-esophageal reflux disease without esophagitis K21.9 Active 591114186 Problem Hypertension I10 Active 26134847 Problem 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 Active 397064896953170 Problem Hammer toe of left foot M20.42 Active 358131212 Problem Elevated white blood cell count, unspecified D72.829 Active 939577776 Problem Other chronic pain G89.29 Active 40259594 Problem Anxiety associated with depression F41.8 Active 173442880 Problem Chronic pain G89.29 Active 95522234 Problem Type 2 diabetes mellitus with diabetic neuropathy, unspecified E11.40 Active 53021805 Problem Allergic rhinitis J30.9 Active 74161440 Problem Primary insomnia F51.01 Active 0663585 Problem Periodontitis K05.30 Active 25722186 Problem Vitamin D deficiency E55.9 Active 94526680 Problem OAB (overactive bladder) N32.81 Active 814591725 Problem Dependence on nocturnal oxygen therapy Z99.81 Active 57794919030651 Problem Hyperlipemia E78.5 Active 94210477 Problem Rheumatoid arthritis involving multiple sites with positive rheumatoid factor M05.79 Active 377271549 Problem Neuropathy G62.9 Active 124733460 ALLERGIES No Information ENCOUNTERS Encounter Location Date Diagnosis [place] [id number] [place] [phone] Jan, [facility] [id number] [place] [address] Dec, Acute rheumatoid arthritis M06.9 [facility] [address] [address] Dec, [place] [address] [address] Dec, Type 2 diabetes mellitus with diabetic neuropathy, unspecified E11.40 and Neuropathy G62.9 [place] [address] [address] Dec, Chronic pain G89.29 [place] [address] [address] Nov, Type 2 diabetes mellitus with diabetic neuropathy, unspecified E11.40 ; Neuropathy G62.9 ; Hypertension I10 ; Dependence on nocturnal oxygen therapy Z99.81 ; Emphysema, unspecified J43.9 and Encounter for immunization Z23 [place] [id number] [place] [address] Nov, Chronic pain G89.29 [place] [id number] [place] [address] Nov, Chronic pain G89.29 [facility] [id number] [place] [address] Oct, Dysuria R30.0 ; Intractable migraine without status migrainosus, unspecified migraine type G43.919 and Back pain at L4-L5 level M54.5 [facility] [id number] [place] [address] Oct, Orthostatic hypotension I95.1 [facility] [address] [address] Oct, Localized swelling of both lower legs R22.43 ; Onychomycosis B35.1 and Type 2 diabetes mellitus with diabetic neuropathy, unspecified E11.40 [place] [id number] [place] [address] Oct, [place] [id number] [place] [address] Oct, Elevated white blood cell count, unspecified D72.829 [place] [id number] [place] [address] Oct, Elevated white blood cell count, unspecified D72.829 [place] [id number] [place] [address] Oct, Chronic pain G89.29 [place] [id number] [place] [address] Oct, [place] [id number] [place] [phone] Oct, [place] [id number] [place] [address] Oct, Orthostatic hypotension I95.1 ; Dizziness R42 and Neuropathy G62.9 [facility] [id number] [place] [address] Oct, Dizziness R42 ; Low back pain M54.5 ; Other chronic pain G89.29 ; Nausea R11.0 and Orthostatic hypotension I95.1 [place] [id number] [place] [address] Sep, Rheumatoid arthritis involving multiple sites with positive rheumatoid factor M05.79 and Tobacco abuse Z72.0 [place] [id number] [place] [address] Sep, Chronic pain G89.29 [place] [id number] [place] [address] Aug, Type 2 diabetes mellitus with diabetic neuropathy, unspecified E11.40 ; Hypertension I10 ; Hyperlipemia E78.5 ; Gastro-esophageal reflux disease without esophagitis K21.9 ; Emphysema, unspecified J43.9 ; Anxiety associated with depression F41.8 ; Vitamin D deficiency E55.9 ; Chronic pain G89.29 ; Tobacco abuse Z72.0 ; Overweight (BMI 25.0-29.9) E66.3 ; 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 ; OAB (overactive bladder) N32.81 and Primary insomnia F51.01 [place] [address] [address] July, [place] [address] [address] July, [place] [address] [address] July, Chronic pain G89.29 [place] [address] [address] July, [place] [address] [address] July, Onychomycosis B35.1 ; Hammer toe of left foot M20.42 and Type 2 diabetes mellitus with diabetic neuropathy, unspecified E11.40 [place] [id number] [place] [address] July, [place] [address] [address] July, Chronic pain G89.29 and Neuropathy G62.9 [place] [address] [address] July, [facility] [address] [address] July, [place] [address] [address] Jun, [facility] [address] [address] Jun, Chronic pain G89.29 [facility] [id number] [place] [address] Jun, [facility] [address] [place] [address] Jun, [facility] [id number] [place] [address] Jun, Visit for TB skin test Z11.1 [facility] [id number] [place] [phone] 16 Jun, 2017 [facility] [id number] [place] [phone] Jun, [facility] [id number] [place] [address] Jun, Tobacco abuse Z72.0 and Rheumatoid arthritis involving multiple sites with positive rheumatoid factor M05.79 [facility] [address] [place] [address] Jun, Anxiety F41.9 ; Acute non-recurrent maxillary sinusitis J01.00 and Chronic pain G89.29 [facility] [address] [address] Jun, [facility] [address] [address] May, Rheumatoid arthritis involving multiple sites with positive rheumatoid factor M05.79 [facility] [address] [address] May, Chronic pain G89.29 [facility] [address] [address] May, [facility] [address] [address] May, [facility] [address] [place] [address] May, [place] [id number] [place] [address] May, Type 2 diabetes mellitus with diabetic neuropathy, unspecified E11.40 [place] [id number] [place] [address] May, Type 2 diabetes mellitus with diabetic neuropathy, unspecified E11.40 ; Emphysema, unspecified J43.9 ; Hypertension I10 ; Hyperlipemia E78.5 ; Vitamin D deficiency E55.9 ; Right medial knee pain M25.561 ; Controlled substance agreement signed Z79.899 ; Chronic pain G89.29 ; Allergic rhinitis J30.9 ; Anxiety associated with depression F41.8 ; Neuropathy G62.9 and Gastro- esophageal reflux disease without esophagitis K21.9 [place] [id number] [place] [address] Apr, Chronic pain G89.29 [place] [id number] [place] [address] 16 Apr, 2017 Other hammer toe(s) (acquired), left foot M20.42 ; Other hammer toe(s) (acquired), right foot M20.41 ; Type 2 diabetes mellitus with diabetic neuropathy, unspecified E11.40 and Onychomycosis B35.1 [place] [id number] [place] [address] 2017 Gastro-esophageal reflux disease without esophagitis K21.9 [place] [id number] [place] [address] Apr, Controlled substance agreement signed Z79.899 [place] [id number] [place] [address] Mar, Chronic pain G89.29 [place] [id number] [place] [address] Mar, Emphysema, unspecified J43.9 and Type 2 diabetes mellitus with diabetic neuropathy, unspecified E11.40 [facility] [id number] [place] [address] Mar, Dysuria R30.0 ; Vaginal candidiasis B37.3 and Acute nonintractable headache, unspecified headache type R51 [facility] [id number] [place] [address] Feb, Neuropathy G62.9 and Chronic pain G89.29 [place] [address] [address] Feb, Gastro-esophageal reflux disease without esophagitis K21.9 [place] [address] [address] Feb, [place] [address] [address] Feb, Rheumatoid arthritis involving multiple sites with positive rheumatoid factor M05.79 and COPD with acute exacerbation J44.1 [place] [id number] [place] [address] 08 Feb, 2017 Vaginal odor N89.8 ; Vaginal irritation N89.8 ; Candidal dermatitis B37.2 and Screening breast examination Z12.31 [place] [id number] [place] [address] 06 Feb, 2017 [place] [id number] [place] [address] Feb, [place] [id number] [place] [address] Feb, [place] [address] [address] Feb, COPD with exacerbation J44.1 ; Tobacco abuse counseling Z71.6 ; Tobacco abuse Z72.0 ; Rheumatoid arthritis involving multiple sites with positive rheumatoid factor M05.79 and Hyperlipemia E78.5 [place] [address] [address] Feb, [facility] [address] [place] [phone] Jan, [facility] [id number] [place] [address] Jan, Chronic pain G89.29 [facility] [address] [place] [id number] Jan, Dental examination Z01.20 [facility] [id number] [place] [address] Jan, Back pain of lumbar region with sciatica M54.40 [facility] [id number] [place] [address] Jan, Acute bacterial conjunctivitis of both eyes H10.33 [place] [id number] [place] [address] Jan, Chronic pain G89.29 [place] [id number] [place] [address] Dec, Type 2 diabetes mellitus with diabetic neuropathy, unspecified E11.40 ; Hypertension I10 ; Hyperlipemia E78.5 ; Gastro-esophageal reflux disease without esophagitis K21.9 ; Anxiety associated with depression F41.8 ; Allergic rhinitis J30.9 ; Neuropathy G62.9 and Dependence on nocturnal oxygen therapy Z99.81 [place] [id number] [place] [address] Dec, [place] [id number] [place] [address] Dec, [place] [id number] [place] [address] Dec, Encounter for immunization Z23 [place] [id number] [place] [address] 05 Dec, 2016 Type 2 diabetes mellitus with diabetic neuropathy, unspecified E11.40 and Chronic pain G89.29 [facility] [id number] [place] [address] 11 Nov, 2016 Gastro-esophageal reflux disease without esophagitis K21.9 [facility] [id number] [place] [address] 11 Nov, 2016 Peripheral edema R60.9 and Chest pain in adult R07.9 [facility] [id number] [place] [address] 07 Nov, 2016 Chronic pain G89.29 [facility] [id number] [place] [address] 31 Oct, 2016 [facility] [address] [address] 30 Oct, 2016 [facility] [id number] [place] [address] 17 Oct, 2016 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 M05.731 [facility] [id number] [place] [address] 15 Oct, 2016 [facility] [id number] [place] [address] 14 Oct, 2016 Acute exacerbation of chronic obstructive pulmonary disease (COPD) J44.1 and Canker sore K12.0 [facility] [id number] [place] [address] 14 Oct, 2016 [facility] [id number] [place] [address] 10 Oct, 2016 [facility] [id number] [place] [phone] 09 Oct, 2016 Chronic pain G89.29 [facility] [id number] [place] [id number] 08 Oct, 2016 Dental examination Z01.20 [facility] [id number] [place] [address] Oct, Dental examination Z01.20 and Periodontitis K05.30 [facility] [address] [place] [phone] Oct, Dental examination Z01.20 [facility] [address] [place] [address] Sep, Abscess L02.91 [facility] [id number] [place] [address] Sep, Dental examination Z01.20 [facility] [id number] [place] [address] Sep, [facility] [id number] [place] [id number] Sep, Dental examination Z01.20 and Dental caries K02.9 [facility] [id number] [place] [address] Sep, Primary insomnia F51.01 and Anxiety associated with depression F41.8 [facility] [id number] [place] [address] Sep, 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 M05.731 [place] [id number] [place] [address] Sep, Chronic pain G89.29 [place] [id number] [place] [address] Sep, Type 2 diabetes mellitus with diabetic neuropathy, unspecified E11.40 ; Emphysema, unspecified J43.9 ; Gastro-esophageal reflux disease without esophagitis K21.9 ; Hypertension I10 ; Hyperlipemia E78.5 ; Anxiety associated with depression F41.8 ; Chronic pain G89.29 ; Vitamin D deficiency E55.9 and Primary insomnia F51.01 [place] [id number] [place] [address] Aug, Anxiety associated with depression F41.8 [place] [id number] [place] [address] Aug, Chronic pain G89.29 and Neuropathy G62.9 [place] [address] [address] Aug, Type 2 diabetes mellitus with diabetic neuropathy, unspecified E11.40 ; Rheumatoid arthritis involving multiple sites with positive rheumatoid factor M05.79 ; Vitamin D deficiency E55.9 ; Anxiety associated with depression F41.8 and Primary insomnia F51.01 [place] [address] [address] July, Emphysema, unspecified J43.9 [place] [address] [address] July, Allergic rhinitis J30.9 [place] [address] [address] July, Allergic rhinitis J30.9 ; Emphysema, unspecified J43.9 and 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 M05.731 [place] [id number] [place] [address] July, Neuropathy G62.9 and Chronic pain G89.29 [place] [id number] [place] [address] July, Rheumatoid arthritis involving multiple sites with positive rheumatoid factor M05.79 [place] [id number] [place] [address] Jun, [place] [id number] [place] [address] Jun, Neuropathy G62.9 and Chronic pain G89.29 [place] [id number] [place] [address] May, Neuropathy G62.9 and Chronic pain G89.29 [place] [id number] [place] [address] May, [place] [id number] [place] [address] May, [address] [address] May, Type 2 diabetes mellitus with diabetic [...] system involvement with positive rheumatoid factor M05.[address] [address] Apr, Chronic pain G89.[address] [address] Mar, Gastro-esophageal reflux disease without esophagitis K21.[address] [address] Mar, [address] [address] Mar, 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 M05.731 [place] [id number] [place] [address] Mar, Chronic pain G89.[address] [address] Feb, Hyperlipemia E78.[address] [address] Feb, Abnormal breath sounds R06.89 ; COPD with exacerbation J44.1 and Fatigue, unspecified type R53.[id number] [place] [address] Feb, Neuropathy G62.9 ; Abnormal lung sounds R09.89 and Bronchitis J40 [facility] [id number] [place] [address] Feb, Bronchitis J40 [facility] [id number] [place] [address] Feb, Chronic pain G89.29 [place] [address] [address] Jan, Type 2 diabetes mellitus with diabetic neuropathy, unspecified E11.40 ; 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 M05.731 and Hyperlipemia E78.5 [place] [address] [address] Jan, 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 M05.731 [place] [id number] [place] [address] Jan, De Quervain's disease (radial styloid tenosynovitis) M65.4 ; Closed nondisplaced fracture of scaphoid of left wrist, unspecified portion of scaphoid, initial encounter S62.002A and Peripheral tear of medial meniscus of left knee, unspecified whether old or current tear, initial encounter S83.222A [place] [id number] [place] [address] Jan, Hypertension I10 ; Type 2 diabetes mellitus with diabetic neuropathy, unspecified E11.40 ; Hyperlipemia E78.5 ; Allergic rhinitis J30.9 ; Neuropathy G62.9 ; 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 M05.731 ; Acute non-recurrent maxillary sinusitis J01.00 and Chronic pain G89.29 [place] [id number] [place] [address] Dec, [place] [address] [place] [address] Dec, [place] [address] [address] Dec, Type 2 diabetes mellitus with diabetic neuropathy, unspecified E11.40 ; Emphysema, unspecified J43.9 ; Gastro-esophageal reflux disease without esophagitis K21.9 ; Hypertension I10 ; Hyperlipemia E78.5 ; 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 M05.731 ; Elevated white blood cell count, unspecified D72.829 ; Acute non- recurrent frontal sinusitis J01.10 and Chronic pain G89.29 [place] [address] [address] Nov, [place] [address] [address] Nov, Elevated white blood cell count, unspecified D72.829 ; Encounter for immunization Z23 ; 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 M05.731 ; Injury of left hand S69.92XA ; Pain in left knee M25.562 and Other chronic pain G89.29 [place] [address] [address] Nov, [place] [address] [address] Nov, [place] [address] [address] Oct, [place] [id number] [place] [address] Oct, Hyperlipemia E78.5 [place] [address] [address] Oct, [place] [address] [address] Oct, Type 2 diabetes mellitus with diabetic neuropathy, unspecified E11.40 ; Neuropathy G62.9 ; Hypertension I10 ; Chronic pain G89.29 and Hyperlipemia E78.5 [place] [id number] [place] [address] Oct, Emphysema, unspecified J43.9 and Rheumatoid arthritis of left wrist without organ or system involvement with positive rheumatoid factor M05.732 [place] [id number] [place] [address] Sep, Chronic pain syndrome G89.4 [place] [id number] [place] [id number] Sep, [place] [address] [place] [id number] [place] [id number] Sep, [place] [address] [place] [id number] [place] [phone] Sep, Closed nondisplaced fracture of scaphoid of left wrist, unspecified portion of scaphoid, initial encounter S62.002A [place] [address] [place] [id number] [place] [id number] Sep, Type 2 diabetes mellitus with diabetic neuropathy, unspecified E11.40 ; Hypertension I10 ; Hyperlipemia E78.5 and Acute non-recurrent maxillary sinusitis J01.00 [place] [id number] [place] [id number] Sep, [place] [address] [place] [id number] [place] [phone] Sep, [place] [id number] [place] [phone] Sep, [place] [id number] [place] [phone] Sep, [place] [id number] [place] [phone] Aug, Epigastric pain R10.13 and Right upper quadrant pain R10.11 [place] [id number] [place] [phone] Aug, Closed nondisplaced fracture of scaphoid of left wrist, unspecified portion of scaphoid, initial encounter S62.002A [place] [id number] [place] [phone] Aug, [place] [id number] [place] [phone] Aug, [facility] [id number] [place] [phone] Aug, Shortness of breath R06.02 ; Epigastric pain R10.13 and Injury of left lower arm, initial encounter S59.912A [place] [id number] [place] [phone] Aug, Coronary artery disease involving jena heart with angina pectoris, unspecified vessel or lesion type I25.119 ; Pulmonary emphysema, unspecified emphysema type J43.9 and Snoring R06.83 [place] [id number] [place] [phone] Aug, [place] [id number] [place] [phone] Aug, Emphysema, unspecified J43.9 ; 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 and Hypertension I10 [place] [id number] [place] [phone] July, [place] [id number] [place] [phone] July, Closed nondisplaced fracture of scaphoid of left wrist, unspecified portion of scaphoid, initial encounter S62.002A [place] [id number] [place] [phone] July, [place] [id number] [place] [phone] July, Type 2 diabetes mellitus with diabetic neuropathy, unspecified E11.40 ; Emphysema, unspecified J43.9 ; 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 ; [...] agents L24.89 and Hospital discharge follow-up Z09 [place] [id number] [place] [phone] July, [place] [id number] [place] [phone] July, Type 2 diabetes mellitus with diabetic neuropathy, unspecified E11.40 [place] [id number] [place] [phone] July, Type 2 diabetes mellitus with diabetic neuropathy, unspecified E11.40 and Rheumatoid arthritis of left wrist without organ or system involvement with positive rheumatoid factor M05.732 [place] [id number] [place] [phone] July, [place] [id number] [place] [phone] July, [place] [id number] [place] [phone] Jun, [place] [id number] [place] [phone] Jun, [place] [id number] [place] [phone] Jun, 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 [place] [id number] [place] [phone] Jun, [place] [id number] [place] [phone] Jun, 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 [place] [address] [address] 14 Jun, 2015 [place] [id number] [place] [phone] Jun, [place] [id number] [place] [phone] Jun, Encounter for PPD test Z11.1 ; 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 M05.731 and Rheumatoid arthritis of left wrist without organ or system involvement with positive rheumatoid factor M05.732 [place] [id number] [place] [phone] Jun, Type 2 diabetes mellitus with diabetic neuropathy, unspecified E11.40 [place] [address] [place] [phone] May, Type 2 diabetes mellitus with diabetic neuropathy, unspecified E11.40 ; Emphysema, unspecified J43.9 ; 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 M05.731 ; Rheumatoid arthritis of left wrist without organ or system involvement with positive rheumatoid factor M05.732 and Chronic pain G89.29 [place] [id number] [place] [phone] May, [place] [address] [place] [phone] May, Swelling of hand joint M25.449 ; Ankle swelling M25.473 and Joint pain M25.50 [place] [address] [place] [phone] May, Emphysema, unspecified J43.9 [place] [id number] [place] [phone] May, Gastroenteritis K52.9 and Hypertension I10 [place] [address] [address] Apr, [facility] [id number] [place] [phone] Apr, [place] [id number] [place] [phone] Apr, [place] [id number] [place] [phone] Apr, Type 2 diabetes mellitus with diabetic neuropathy, unspecified E11.40 ; Emphysema, unspecified J43.9 ; 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 ; Migraine without aura, not intractable, with status migrainosus G43.001 ; Gastro-esophageal reflux disease without esophagitis K21.9 ; CAD (coronary artery disease) I25.10 ; Hypertension I10 ; Hyperlipemia E78.5 ; Allergic rhinitis J30.9 ; Neuropathy G62.9 ; Anxiety associated with depression F41.8 and Injury of left hand S69.92XA [address] [address] Apr, [place] [id number] [place] [phone] Apr, [place] [id number] [place] [phone] Apr, Type 2 diabetes mellitus with diabetic neuropathy, unspecified E11.40 ; Emphysema, unspecified J43.9 ; Essential (primary) hypertension I10 ; 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 ; Gastro-esophageal reflux disease without esophagitis K21.9 ; CAD (coronary artery disease) I25.10 ; Hyperlipemia E78.5 ; Hypertension I10 ; History of solitary pulmonary nodule Z87.898 ; Allergic rhinitis J30.9 ; Chronic pain G89.29 and Depression with anxiety F41.8 [place] [id number] [place] [phone] Mar, [place] [id number] [place] [phone] Mar, Allergic rhinitis J30.9 ; URI (upper respiratory infection) J06.9 and Other viral agents as the cause of diseases classified elsewhere B97.89 [facility] [address] [address] Feb, Acute nasopharyngitis [common cold] J00 and Acute diarrhea R19.7 [place] [address] [address] Feb, Depression F32.9 [place] [address] [address] Jan, Otitis media, right H66.91 [place] [address] [address] Jan, [place] [address] [address] Jan, Type 2 diabetes mellitus with diabetic neuropathy, unspecified E11.40 [place] [address] [address] Jan, [place] [address] [address] Jan, Hyperlipemia E78.5 [place] [address] [address] Jan, Type 2 diabetes mellitus with diabetic neuropathy, unspecified E11.40 ; Emphysema, unspecified J43.9 ; CAD (coronary artery disease) I25.10 and Hyperlipemia E78.5 [place] [address] [address] Dec, Allergic rhinitis J30.9 and Fungal infection B49 [place] [address] [address] Dec, [place] [address] [address] Dec, [place] [address] [address] Dec, Chest pain R07.9 ; CAD (coronary artery disease) I25.10 ; Hypertension I10 and Hyperlipemia E78.5 [place] [id number] [place] [address] Dec, Pain in thoracic spine M54.6 ; Gastro-esophageal reflux disease without esophagitis K21.9 ; Emphysema, unspecified J43.9 and Migraine without aura, not intractable, with status migrainosus G43.001 [place] [id number] [place] [phone] Dec, [place] [address] [address] Nov, Influenza vaccine administered V04.81 [place] [address] [address] Nov, [place] [address] [address] Sep, [place] [id number] [place] [address] Sep, [place] [id number] [place] [address] Sep, CAD (coronary artery disease) 414.00 and Diabetes type 2, uncontrolled 250.02 [place] [id number] [place] [phone] Sep, CAD (coronary artery disease) 414.00 ; Diabetes type 2, uncontrolled 250.02 and Migraine 346.90 IMMUNIZATIONS No Known Immunizations SOCIAL HISTORY Never Assessed REASON FOR VISIT 3 mo f/u Mayte Ambrose MA PLAN OF CARE Activity Details Follow Up 3 Months Reason: VITAL SIGNS Height 66 in 2017-11-10 Blood pressure systolic 108 mmHg 2017-11-10 Blood pressure diastolic 64 mmHg 2017-11-10 MEDICATIONS Unknown Medications RESULTS Name Result Date Reference Range Ultrasound : Venous Doppler (DVT EVAL) 2017-11-10 PROCEDURES Procedure Date Ordered Result Body Site DEBRIDE NAIL, 6 OR MORE Nov 10, 2017 INSTRUCTIONS MEDICATIONS ADMINISTERED No Known Medications MEDICAL (GENERAL) HISTORY Type Description Date Medical History COPD Medical History Type 2 Diabetes Medical History HTN Medical History Cardiac stents July 2010 post CO-stent to LAD Medical History Rheumatoid Arthritis Medical History 04/2016---Echo- 60%//mild hypertrophy at the base of the septum, mild mitral regurg/ mild tricuspid regurg. PAP about 10-15 mmHg Medical History 04/2016------Normal Lexiscan Medical History Elevated white blood cell count, unspecified Medical History Atherosclerotic heart disease of jena coronary artery without angina pectoris Medical History [...] june 2016 Surgical History Teeth extraction 04/2017 Hospitalization History surgery related Hospitalization History heart cath
--- OUTSIDE RECORDS SUMMARY | 2018-08-23 16:41 | XMS REPORT ---
Author Author SANJIV CHICAS [facility] Address [address] [place] [address] Care Team Providers Care Kst Operator Name Role Phone SANJIV CHICAS Unavailable PROBLEMS Type Condition ICD9-CM Code FLZ08-NU Code Onset Dates Condition Status SNOMED Code Problem Neuropathy G62.9 Active 478849900 Problem Other hammer toe(s) (acquired), right foot M20.41 Active 273714080 Problem Other hammer toe(s) (acquired), left foot M20.42 Active 96992303 Problem Intractable migraine without status migrainosus, unspecified migraine type G43.919 Active 277914518 Problem Gastro-esophageal reflux disease without esophagitis K21.9 Active 977809084 Problem Elevated white blood cell count, unspecified D72.829 Active 418535596 Problem Hypertension I10 Active 71251173 Problem Hyperlipemia E78.5 Active 08936533 Problem Hammer toe of left foot M20.42 Active 576982722 Problem Tobacco abuse Z72.0 Active 684019208 Problem Other chronic pain G89.29 Active 63210342 Problem Atherosclerotic heart disease of [place] coronary artery 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.10 Active 678665505659356 Problem Allergic rhinitis J30.9 Active 96518190 Problem Anxiety associated with depression F41.8 Active 859625530 Problem Emphysema, unspecified J43.9 Active 90246169 Problem Type 2 diabetes mellitus with diabetic neuropathy, unspecified E11.40 Active 23838862 Problem Rheumatoid arthritis involving multiple sites with positive rheumatoid factor M05.79 Active 649035330 Problem Primary insomnia F51.01 Active 3539534 Problem Chronic pain G89.29 Active 52867015 Problem Periodontitis K05.30 Active 48620607 Problem Vitamin D deficiency E55.9 Active 07983530 Problem OAB (overactive bladder) N32.81 Active 326336790 Problem Dependence on nocturnal oxygen therapy Z99.81 Active [id number] ALLERGIES No Information ENCOUNTERS Encounter Location Date Diagnosis [facility] [id number] [place] [address] Jan, [facility] [id number] [place] [address] Dec, [facility] [facility] [id number] [place] [address] Dec, Type 2 diabetes mellitus with diabetic neuropathy, unspecified E11.40 and Neuropathy G62.9 [facility] [id number] [place] [address] Dec, Chronic pain G89.29 [facility] [id number] [place] [address] 24 Nov, 2017 Type 2 diabetes mellitus with diabetic neuropathy, unspecified E11.40 ; Neuropathy G62.9 ; Hypertension I10 ; Dependence on nocturnal oxygen therapy Z99.81 ; Emphysema, unspecified J43.9 and Encounter for immunization Z23 [facility] [id number] [place] [address] 07 Nov, 2017 Chronic pain G89.29 [place] [address] [address] 06 Nov, 2017 Chronic pain G89.29 [facility] [id number] [place] [address] Oct, Dysuria R30.0 ; Intractable migraine without status migrainosus, unspecified migraine type G43.919 and Back pain at L4-L5 level M54.5 [place] [id number] [place] [address] Oct, Orthostatic hypotension I95.1 [place] [id number] [place] [address] Oct, Localized swelling of both lower legs R22.43 ; Onychomycosis B35.1 and Type 2 diabetes mellitus with diabetic neuropathy, unspecified E11.40 [place] [address] [address] Oct, [facility] [id number] [place] [address] Oct, Elevated white blood cell count, unspecified D72.829 [facility] [id number] [place] [address] Oct, Elevated white blood cell count, unspecified D72.829 [place] [id number] [place] [address] Oct, Chronic pain G89.29 [facility] [id number] [place] [address] Oct, [facility] [id number] [place] [address] Oct, [place] [id number] [place] [address] Oct, Orthostatic hypotension I95.1 ; Dizziness R42 and Neuropathy G62.9 [facility] [id number] [place] [address] Oct, Dizziness R42 ; Low back pain M54.5 ; Other chronic pain G89.29 ; Nausea R11.0 and Orthostatic hypotension I95.1 [place] [id number] [place] [address] Sep, Rheumatoid arthritis involving multiple sites with positive rheumatoid factor M05.79 and Tobacco abuse Z72.0 [place] [id number] [place] [address] Sep, Chronic pain G89.29 [place] [id number] [place] [address] Aug, Type 2 diabetes mellitus with diabetic neuropathy, unspecified E11.40 ; Hypertension I10 ; Hyperlipemia E78.5 ; Gastro-esophageal reflux disease without esophagitis K21.9 ; Emphysema, unspecified J43.9 ; Anxiety associated with depression F41.8 ; Vitamin D deficiency E55.9 ; Chronic pain G89.29 ; Tobacco abuse Z72.0 ; Overweight (BMI 25.0-29.9) E66.3 ; Atherosclerotic heart disease of [place] coronary artery 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.10 ; OAB (overactive bladder) N32.81 and Primary insomnia F51.01 [facility] [id number] [place] [address] July, [facility] [address] [address] July, [place] [address] [address] July, Chronic pain G89.29 [place] [id number] [place] [address] July, [place] [address] [address] July, Onychomycosis B35.1 ; Hammer toe of left foot M20.42 and Type 2 diabetes mellitus with diabetic neuropathy, unspecified E11.40 [place] [id number] [place] [address] July, [facility] [id number] [place] [address] July, Chronic pain G89.29 and Neuropathy G62.9 [place] [id number] [place] [address] July, [facility] [id number] [place] [address] July, [place] [id number] [place] [address] Jun, [place] [id number] [place] [address] Jun, Chronic pain G89.29 [place] [address] [address] Jun, [facility] [address] [place] [address] Jun, [facility] [address] [place] [address] Jun, Visit for TB skin test Z11.1 [facility] [id number] [place] [address] 16 Jun, 2017 [facility] [id number] [place] [address] Jun, [facility] [id number] [place] [address] Jun, Tobacco abuse Z72.0 and Rheumatoid arthritis involving multiple sites with positive rheumatoid factor M05.79 [facility] [id number] [place] [address] Jun, Anxiety F41.9 ; Acute non-recurrent maxillary sinusitis J01.00 and Chronic pain G89.29 [facility] [address] [place] [address] Jun, [facility] [address] [place] [address] May, Rheumatoid arthritis involving multiple sites with positive rheumatoid factor M05.79 [facility] [address] [place] [address] May, Chronic pain G89.29 [facility] [address] [address] May, [facility] [id number] [place] [address] May, [facility] [address] [address] May, [facility] [address] [place] [address] May, Type 2 diabetes mellitus with diabetic neuropathy, unspecified E11.40 [place] [address] [place] [address] May, Type 2 diabetes mellitus with diabetic neuropathy, unspecified E11.40 ; Emphysema, unspecified J43.9 ; Hypertension I10 ; Hyperlipemia E78.5 ; Vitamin D deficiency E55.9 ; Right medial knee pain M25.561 ; Controlled substance agreement signed Z79.899 ; Chronic pain G89.29 ; Allergic rhinitis J30.9 ; Anxiety associated with depression F41.8 ; Neuropathy G62.9 and Gastro- esophageal reflux disease without esophagitis K21.9 [place] [id number] [place] [address] Apr, Chronic pain G89.29 [place] [id number] [place] [address] 16 Apr, 2017 Other hammer toe(s) (acquired), left foot M20.42 ; Other hammer toe(s) (acquired), right foot M20.41 ; Type 2 diabetes mellitus with diabetic neuropathy, unspecified E11.40 and Onychomycosis B35.1 [place] [id number] [place] [address] 2017 Gastro-esophageal reflux disease without esophagitis K21.9 [place] [address] [place] [address] Apr, Controlled substance agreement signed Z79.899 [place] [address] [place] [address] Mar, Chronic pain G89.29 [place] [id number] [place] [address] Mar, Emphysema, unspecified J43.9 and Type 2 diabetes mellitus with diabetic neuropathy, unspecified E11.40 [facility] [address] [place] [address] Mar, Dysuria R30.0 ; Vaginal candidiasis B37.3 and Acute nonintractable headache, unspecified headache type R51 [place] [address] [address] Feb, Neuropathy G62.9 and Chronic pain G89.29 [place] [id number] [place] [address] Feb, Gastro-esophageal reflux disease without esophagitis K21.9 [place] [address] [address] Feb, [place] [address] [address] Feb, Rheumatoid arthritis involving multiple sites with positive rheumatoid factor M05.79 and COPD with acute exacerbation J44.1 [place] [address] [address] Feb, Vaginal odor N89.8 ; Vaginal irritation N89.8 ; Candidal dermatitis B37.2 and Screening breast examination Z12.31 [place] [address] [address] Feb, [place] [address] [address] Feb, [place] [id number] [place] [address] Feb, [place] [address] [address] Feb, COPD with exacerbation J44.1 ; Tobacco abuse counseling Z71.6 ; Tobacco abuse Z72.0 ; Rheumatoid arthritis involving multiple sites with positive rheumatoid factor M05.79 and Hyperlipemia E78.5 [place] [id number] [place] [address] Feb, [facility] [address] [place] [id number] Jan, [place] [id number] [place] [address] 30 Jan, 2017 Chronic pain G89.29 [facility] [address] [id number] 27 Jan, 2017 Dental examination Z01.20 [facility] [id number] [place] [address] 19 Jan, 2017 Back pain of lumbar region with sciatica M54.40 [facility] [id number] [place] [address] 15 Jan, 2017 Acute bacterial conjunctivitis of both eyes H10.33 [place] [address] [address] 02 Jan, 2017 Chronic pain G89.29 [place] [id number] [place] [address] Dec, Type 2 diabetes mellitus with diabetic neuropathy, unspecified E11.40 ; Hypertension I10 ; Hyperlipemia E78.5 ; Gastro-esophageal reflux disease without esophagitis K21.9 ; Anxiety associated with depression F41.8 ; Allergic rhinitis J30.9 ; Neuropathy G62.9 and Dependence on nocturnal oxygen therapy Z99.81 [place] [id number] [place] [address] Dec, [place] [id number] [place] [address] Dec, [place] [id number] [place] [address] Dec, Encounter for immunization Z23 [place] [address] [address] 05 Dec, 2016 Type 2 diabetes mellitus with diabetic neuropathy, unspecified E11.40 and Chronic pain G89.29 [place] [id number] [place] [address] 11 Nov, 2016 Gastro-esophageal reflux disease without esophagitis K21.9 [place] [id number] [place] [address] 11 Nov, 2016 Peripheral edema R60.9 and Chest pain in adult R07.9 [facility] [id number] [place] [address] 07 Nov, 2016 Chronic pain G89.29 [facility] [id number] [place] [address] Oct, [facility] [address] [address] Oct, [facility] [id number] [place] [address] Oct, 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 M05.731 [place] [id number] [place] [address] 15 Oct, 2016 [facility] [id number] [place] [address] Oct, Acute exacerbation of chronic obstructive pulmonary disease (COPD) J44.1 and Canker sore K12.0 [facility] [id number] [place] [address] Oct, [facility] [id number] [place] [address] Oct, [facility] [id number] [place] [address] Oct, Chronic pain G89.29 [facility] [id number] [place] [id number] Oct, Dental examination Z01.20 [facility] [id number] [place] [address] Oct, Dental examination Z01.20 and Periodontitis K05.30 [facility] [id number] [place] [id number] Oct, Dental examination Z01.20 [facility] [address] [address] 27 Sep, 2016 Abscess L02.91 [facility] [id number] [place] [address] 27 Sep, 2016 Dental examination Z01.20 [facility] [id number] [place] [address] Sep, [facility] [id number] [place] [address] [id number] Sep, Dental examination Z01.20 and Dental caries K02.9 [facility] [address] [address] Sep, Primary insomnia F51.01 and Anxiety associated with depression F41.8 [place] [id number] [place] [address] Sep, 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 M05.731 [place] [id number] [place] [address] Sep, Chronic pain G89.29 [place] [id number] [place] [address] Sep, Type 2 diabetes mellitus with diabetic neuropathy, unspecified E11.40 ; Emphysema, unspecified J43.9 ; Gastro-esophageal reflux disease without esophagitis K21.9 ; Hypertension I10 ; Hyperlipemia E78.5 ; Anxiety associated with depression F41.8 ; Chronic pain G89.29 ; Vitamin D deficiency E55.9 and Primary insomnia F51.01 [place] [id number] [place] [address] 16 Aug, 2016 Anxiety associated with depression F41.8 [place] [id number] [place] [address] 13 Aug, 2016 Chronic pain G89.29 and Neuropathy G62.9 [place] [id number] [place] [address] Aug, Type 2 diabetes mellitus with diabetic neuropathy, unspecified E11.40 ; Rheumatoid arthritis involving multiple sites with positive rheumatoid factor M05.79 ; Vitamin D deficiency E55.9 ; Anxiety associated with depression F41.8 and Primary insomnia F51.01 [place] [id number] [place] [address] July, Emphysema, unspecified J43.9 [place] [id number] [place] [address] July, Allergic rhinitis J30.9 [place] [id number] [place] [address] July, Allergic rhinitis J30.9 ; Emphysema, unspecified J43.9 and 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 M05.731 [place] [id number] [place] [address] July, Neuropathy G62.9 and Chronic pain G89.29 [place] [id number] [place] [address] July, Rheumatoid arthritis involving multiple sites with positive rheumatoid factor M05.79 [place] [id number] [place] [address] Jun, [place] [id number] [place] [address] Jun, Neuropathy G62.9 and Chronic pain G89.29 [place] [id number] [place] [address] May, Neuropathy G62.9 and Chronic pain G89.29 [place] [id number] [place] [address] May, [place] [id number] [place] [address] May, [place] [address] [address] May, Type 2 diabetes mellitus with diabetic [...] system involvement with positive rheumatoid factor M05.732 [place] [address] [address] Apr, Chronic pain G89.29 [place] [address] [address] Mar, Gastro-esophageal reflux disease without esophagitis K21.9 [place] [address] [address] Mar, [place] [address] [address] Mar, 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 M05.731 [place] [address] [address] Mar, Chronic pain G89.29 [place] [address] [address] Feb, Hyperlipemia E78.5 [place] [address] [address] Feb, Abnormal breath sounds R06.89 ; COPD with exacerbation J44.1 and Fatigue, unspecified type R53.83 [place] [address] [address] Feb, Neuropathy G62.9 ; Abnormal lung sounds R09.89 and Bronchitis J40 [facility] [address] [address] 18 Feb, 2016 Bronchitis J40 [place] [id number] [place] [address] Feb, Chronic pain G89.29 [place] [id number] [place] [address] Jan, Type 2 diabetes mellitus with diabetic neuropathy, unspecified E11.40 ; 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 M05.731 and Hyperlipemia E78.5 [place] [id number] [place] [address] Jan, 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 M05.731 [place] [id number] [place] [address] Jan, De Quervain's disease (radial styloid tenosynovitis) M65.4 ; Closed nondisplaced fracture of scaphoid of left wrist, unspecified portion of scaphoid, initial encounter S62.002A and Peripheral tear of medial meniscus of left knee, unspecified whether old or current tear, initial encounter S83.222A [place] [address] [place] [address] Jan, Hypertension I10 ; Type 2 diabetes mellitus with diabetic neuropathy, unspecified E11.40 ; Hyperlipemia E78.5 ; Allergic rhinitis J30.9 ; Neuropathy G62.9 ; 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 M05.731 ; Acute non-recurrent maxillary sinusitis J01.00 and Chronic pain G89.29 [place] [id number] [place] [address] Dec, [place] [id number] [place] [address] Dec, [place] [id number] [place] [address] Dec, Type 2 diabetes mellitus with diabetic neuropathy, unspecified E11.40 ; Emphysema, unspecified J43.9 ; Gastro-esophageal reflux disease without esophagitis K21.9 ; Hypertension I10 ; Hyperlipemia E78.5 ; 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 M05.731 ; Elevated white blood cell count, unspecified D72.829 ; Acute non- recurrent frontal sinusitis J01.10 and Chronic pain G89.29 [place] [address] [address] Nov, [place] [address] [address] Nov, Elevated white blood cell count, unspecified D72.829 ; Encounter for immunization Z23 ; 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 M05.731 ; Injury of left hand S69.92XA ; Pain in left knee M25.562 and Other chronic pain G89.29 [place] [address] [address] Nov, [place] [address] [address] Nov, [place] [address] [address] Oct, [place] [id number] [place] [address] Oct, Hyperlipemia E78.5 [place] [address] [address] Oct, [place] [address] [address] Oct, Type 2 diabetes mellitus with diabetic neuropathy, unspecified E11.40 ; Neuropathy G62.9 ; Hypertension I10 ; Chronic pain G89.29 and Hyperlipemia E78.5 [place] [address] [address] Oct, Emphysema, unspecified J43.9 and Rheumatoid arthritis of left wrist without organ or system involvement with positive rheumatoid factor M05.732 [place] [id number] [place] [address] Sep, Chronic pain syndrome G89.4 [place] [address] [address] [place] [id number] [place] [id number] Sep, [place] [address] [address] [place] [id number] [place] [id number] Sep, [place] [address] [address] [place] [id number] [place] [id number] Sep, Closed nondisplaced fracture of scaphoid of left wrist, unspecified portion of scaphoid, initial encounter S62.002A [place] [address] [address] [place] [id number] [place] [id number] Sep, Type 2 diabetes mellitus with diabetic neuropathy, unspecified E11.40 ; Hypertension I10 ; Hyperlipemia E78.5 and Acute non-recurrent maxillary sinusitis J01.00 [place] [address] [id number] [place] [address] Sep, [place] [id number] [place] [address] Sep, [place] [id number] [place] [address] Sep, [place] [address] [id number] [place] [address] Sep, [place] [id number] [place] [address] Aug, Epigastric pain R10.13 and Right upper quadrant pain R10.11 [place] [id number] [place] [address] Aug, Closed nondisplaced fracture of scaphoid of left wrist, unspecified portion of scaphoid, initial encounter S62.002A [place] [id number] [place] [address] Aug, [place] [id number] [place] [address] Aug, [facility] [id number] [place] [address] Aug, Shortness of breath R06.02 ; Epigastric pain R10.13 and Injury of left lower arm, initial encounter S59.912A [place] [id number] [place] [address] Aug, Coronary artery disease involving [place] heart with angina pectoris, unspecified vessel or lesion type I25.119 ; Pulmonary emphysema, unspecified emphysema type J43.9 and Snoring R06.[address] [address] Aug, [place] [id number] [place] [address] Aug, Emphysema, unspecified J43.9 ; Atherosclerotic heart disease of [place] coronary artery 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.10 and Hypertension I10 [place] [id number] [place] [address] July, [place] [id number] [place] [address] July, Closed nondisplaced fracture of scaphoid of left wrist, unspecified portion of scaphoid, initial encounter S62.002A [place] [id number] [place] [address] July, [place] [address] [address] July, Type 2 diabetes mellitus with diabetic neuropathy, unspecified E11.40 ; Emphysema, unspecified J43.9 ; Atherosclerotic heart disease of [place] coronary artery 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.10 ; [...] agents L24.89 and Hospital discharge follow-up Z09 [facility] [address] [address] July, [facility] [id number] [place] [address] July, Type 2 diabetes mellitus with diabetic neuropathy, unspecified E11.40 [place] [id number] [place] [address] July, Type 2 diabetes mellitus with diabetic neuropathy, unspecified E11.40 and Rheumatoid arthritis of left wrist without organ or system involvement with positive rheumatoid factor M05.732 [facility] [id number] [place] [address] July, [facility] [id number] [place] [address] July, [facility] [id number] [place] [address] Jun, [facility] [id number] [place] [address] Jun, [facility] [id number] [place] [address] Jun, 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 [facility] [id number] [place] [address] Jun, [facility] [id number] [place] [address] Jun, 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 [facility] [id number] [place] [address] Jun, [facility] [id number] [place] [address] Jun, [place] [id number] [place] [address] Jun, Encounter for PPD test Z11.1 ; 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 M05.731 and Rheumatoid arthritis of left wrist without organ or system involvement with positive rheumatoid factor M05.732 [place] [address] [address] Jun, Type 2 diabetes mellitus with diabetic neuropathy, unspecified E11.40 [place] [address] [address] May, Type 2 diabetes mellitus with diabetic neuropathy, unspecified E11.40 ; Emphysema, unspecified J43.9 ; 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 M05.731 ; Rheumatoid arthritis of left wrist without organ or system involvement with positive rheumatoid factor M05.732 and Chronic pain G89.29 [place] [address] [address] May, [place] [address] [address] May, Swelling of hand joint M25.449 ; Ankle swelling M25.473 and Joint pain M25.50 [place] [id number] [place] [address] May, Emphysema, unspecified J43.9 [place] [id number] [place] [address] May, Gastroenteritis K52.9 and Hypertension I10 [place] [address] [address] Apr, [place] [id number] [place] [address] Apr, [place] [address] [address] Apr, [place] [id number] [place] [address] Apr, Type 2 diabetes mellitus with diabetic neuropathy, unspecified E11.40 ; Emphysema, unspecified J43.9 ; Atherosclerotic heart disease of [place] coronary artery 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.10 ; Migraine without aura, not intractable, with status migrainosus G43.001 ; Gastro-esophageal reflux disease without esophagitis K21.9 ; CAD (coronary artery disease) I25.10 ; Hypertension I10 ; Hyperlipemia E78.5 ; Allergic rhinitis J30.9 ; Neuropathy G62.9 ; Anxiety associated with depression F41.8 and Injury of left hand S69.92XA [address] [address] Apr, [address] [address] Apr, [address] [address] Apr, Type 2 diabetes mellitus with diabetic neuropathy, unspecified E11.40 ; Emphysema, unspecified J43.9 ; Essential (primary) hypertension I10 ; Atherosclerotic heart disease of [place] coronary artery 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.10 ; Gastro-esophageal reflux disease without esophagitis K21.9 ; CAD (coronary artery disease) I25.10 ; Hyperlipemia E78.5 ; Hypertension I10 ; History of solitary pulmonary nodule Z87.898 ; Allergic rhinitis J30.9 ; Chronic pain G89.29 and Depression with anxiety F41.8 [place] [id number] [place] [address] Mar, [address] [address] Mar, Allergic rhinitis J30.9 ; URI (upper respiratory infection) J06.9 and Other viral agents as the cause of diseases classified elsewhere B97.89 [facility] [id number] [place] [address] Feb, Acute nasopharyngitis [common cold] J00 and Acute diarrhea R19.7 [place] [address] [address] Feb, Depression F32.9 [place] [id number] [place] [address] Jan, Otitis media, right H66.91 [place] [address] [address] Jan, [place] [address] [address] Jan, Type 2 diabetes mellitus with diabetic neuropathy, unspecified E11.[address] [address] Jan, [address] [address] Jan, Hyperlipemia E78.5 [place] [id number] [place] [address] Jan, Type 2 diabetes mellitus with diabetic neuropathy, unspecified E11.40 ; Emphysema, unspecified J43.9 ; CAD (coronary artery disease) I25.10 and Hyperlipemia E78.5 [place] [id number] [place] [address] Dec, Allergic rhinitis J30.9 and Fungal infection B49 [place] [id number] [place] [address] Dec, [address] [address] Dec, [place] [id number] [place] [address] Dec, Chest pain R07.9 ; CAD (coronary artery disease) I25.10 ; Hypertension I10 and Hyperlipemia E78.[id number] [place] [address] 08 Dec, 2014 Pain in thoracic spine M54.6 ; Gastro-esophageal reflux disease without esophagitis K21.9 ; Emphysema, unspecified J43.9 and Migraine without aura, not intractable, with status migrainosus G43.001 [place] [id number] [place] [address] Dec, [place] [id number] [place] [address] Nov, Influenza vaccine administered V04.[address] [address] Nov, [place] [id number] [place] [address] Sep, [place] [id number] [place] [address] Sep, [place] [id number] [place] [address] Sep, CAD (coronary artery disease) 414.00 and Diabetes type 2, uncontrolled 250.02 [place] [id number] [place] [address] Sep, CAD (coronary artery disease) 414.00 ; Diabetes type 2, uncontrolled 250.02 and Migraine 346.90 IMMUNIZATIONS No Known Immunizations SOCIAL HISTORY Never Assessed REASON FOR VISIT Controlled Med Refill/ Hydrocodone-Acetaminophen PLAN OF CARE VITAL SIGNS MEDICATIONS Medication Instructions Dosage Frequency Start Date End Date Duration Status Hydrocodone-Acetaminophen 7.5-325 MG Orally every 6 hours as needed 1 tablet as needed Dec, 28 days Active RESULTS No Results PROCEDURES No Known procedures INSTRUCTIONS MEDICATIONS ADMINISTERED No Known Medications MEDICAL (GENERAL) HISTORY Type Description Date Medical History COPD Medical History Type 2 Diabetes Medical History HTN Medical History Cardiac stents July 2010 post [place]-stent to [place] Medical History Rheumatoid Arthritis Medical History 04/2016---Echo- 60%//mild hypertrophy at the base of the septum, mild mitral regurg/ mild tricuspid regurg. PAP about 10-15 mmHg Medical History 04/2016------Normal Lexiscan Medical History Elevated white blood cell count, unspecified Medical History Atherosclerotic heart disease of [place] coronary artery without angina pectoris Medical History [...]
--- OUTSIDE RECORDS SUMMARY | 2018-08-23 16:42 | XMS REPORT ---
Author Author CLAU Watson Organization [facility] Address [address] [place] [address] Care Team Providers Care Environmental Analyst Name Role Phone CLAU Watson Unavailable PROBLEMS Type Condition ICD9-CM Code VUH45-XW Code Onset Dates Condition Status SNOMED Code Problem Neuropathy G62.9 Active 346803533 Problem Other hammer toe(s) (acquired), right foot M20.41 Active 067259741 Problem Other hammer toe(s) (acquired), left foot M20.42 Active 44423126 Problem Intractable migraine without status migrainosus, unspecified migraine type G43.919 Active 031675075 Problem Gastro-esophageal reflux disease without esophagitis K21.9 Active 330074821 Problem Elevated white blood cell count, unspecified D72.829 Active 035537475 Problem Hypertension I10 Active 69236313 Problem Hyperlipemia E78.5 Active 14682390 Problem Hammer toe of left foot M20.42 Active 041772725 Problem Tobacco abuse Z72.0 Active 476761779 Problem Other chronic pain G89.29 Active 31339602 Problem Atherosclerotic heart disease of [place] coronary artery 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.10 Active 475440853217230 Problem Allergic rhinitis J30.9 Active 96178317 Problem Anxiety associated with depression F41.8 Active 292791026 Problem Emphysema, unspecified J43.9 Active 28568722 Problem Type 2 diabetes mellitus with diabetic neuropathy, unspecified E11.40 Active 96161404 Problem Rheumatoid arthritis involving multiple sites with positive rheumatoid factor M05.79 Active 709502225 Problem Primary insomnia F51.01 Active 0071752 Problem Chronic pain G89.29 Active 07202568 Problem Periodontitis K05.30 Active 31643047 Problem Vitamin D deficiency E55.9 Active 49387745 Problem OAB (overactive bladder) N32.81 Active 023330982 Problem Dependence on nocturnal oxygen therapy Z99.81 Active [id number] ALLERGIES Substance Reaction Event Type Date Status Sulfamethoxazole-Trimethoprim itching Drug Allergy Nov, Active Singulair dizziness Drug Allergy Nov, Active ENCOUNTERS Encounter Location Date Diagnosis [place] [address] [address] Jan, [place] [address] [address] Dec, [place] [address] [address] Dec, Type 2 diabetes mellitus with diabetic neuropathy, unspecified E11.40 and Neuropathy G62.9 [place] [address] [address] Dec, Chronic pain G89.29 [place] [address] [address] Nov, Type 2 diabetes mellitus with diabetic neuropathy, unspecified E11.40 ; Neuropathy G62.9 ; Hypertension I10 ; Dependence on nocturnal oxygen therapy Z99.81 ; Emphysema, unspecified J43.9 and Encounter for immunization Z23 [place] [address] [address] 07 Nov, 2017 Chronic pain G89.29 [place] [address] [address] Nov, Chronic pain G89.29 [facility] [address] [address] Oct, Dysuria R30.0 ; Intractable migraine without status migrainosus, unspecified migraine type G43.919 and Back pain at L4-L5 level M54.5 [place] [address] [address] Oct, Orthostatic hypotension I95.1 [facility] [address] [address] Oct, Localized swelling of both lower legs R22.43 ; Onychomycosis B35.1 and Type 2 diabetes mellitus with diabetic neuropathy, unspecified E11.40 [place] [address] [place] [id number] [place] [address] Oct, [place] [address] [place] [id number] [place] [address] Oct, Elevated white blood cell count, unspecified D72.829 [place] [address] [address] Oct, Elevated white blood cell count, unspecified D72.829 [place] [address] [place] [id number] [place] [address] Oct, Chronic pain G89.29 [place] [address] [place] [id number] [place] [address] Oct, [place] [address] [address] Oct, [place] [address] [place] [id number] [place] [address] Oct, Orthostatic hypotension I95.1 ; Dizziness R42 and Neuropathy G62.9 [facility] [address] [place] [id number] [place] [address] Oct, Dizziness R42 ; Low back pain M54.5 ; Other chronic pain G89.29 ; Nausea R11.0 and Orthostatic hypotension I95.1 [place] [address] [place] [id number] [place] [address] Sep, Rheumatoid arthritis involving multiple sites with positive rheumatoid factor M05.79 and Tobacco abuse Z72.0 [place] [address] [place] [id number] [place] [address] Sep, Chronic pain G89.29 [place] [address] [place] [id number] [place] [address] Aug, Type 2 diabetes mellitus with diabetic neuropathy, unspecified E11.40 ; Hypertension I10 ; Hyperlipemia E78.5 ; Gastro-esophageal reflux disease without esophagitis K21.9 ; Emphysema, unspecified J43.9 ; Anxiety associated with depression F41.8 ; Vitamin D deficiency E55.9 ; Chronic pain G89.29 ; Tobacco abuse Z72.0 ; Overweight (BMI 25.0-29.9) E66.3 ; Atherosclerotic heart disease of [place] coronary artery 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.10 ; OAB (overactive bladder) N32.81 and Primary insomnia F51.01 [place] [address] [address] July, [place] [address] [address] July, [place] [address] [address] July, Chronic pain G89.29 [place] [address] [address] July, [place] [address] [address] July, Onychomycosis B35.1 ; Hammer toe of left foot M20.42 and Type 2 diabetes mellitus with diabetic neuropathy, unspecified E11.40 [place] [address] [address] July, [place] [address] [address] July, Chronic pain G89.29 and Neuropathy G62.9 [place] [address] [address] July, [place] [address] [address] July, [place] [address] [address] Jun, [place] [address] [address] Jun, Chronic pain G89.29 [facility] [address] [address] Jun, [facility] [address] [address] Jun, [facility] [id number] [place] [address] Jun, Visit for TB skin test Z11.1 [facility] [id number] [place] [address] 16 Jun, 2017 [facility] [address] [place] [id number] [place] [address] Jun, [facility] [address] [place] [id number] [place] [address] Jun, Tobacco abuse Z72.0 and Rheumatoid arthritis involving multiple sites with positive rheumatoid factor M05.79 [facility] [address] [place] [id number] [place] [address] Jun, Anxiety F41.9 ; Acute non-recurrent maxillary sinusitis J01.00 and Chronic pain G89.29 [facility] [address] [address] Jun, [facility] [address] [place] [address] May, Rheumatoid arthritis involving multiple sites with positive rheumatoid factor M05.79 [facility] [address] [address] May, Chronic pain G89.29 [facility] [address] [address] 14 May, 2017 [facility] [address] [address] May, [facility] [address] [place] [id number] [place] [address] May, [place] [id number] [place] [address] May, Type 2 diabetes mellitus with diabetic neuropathy, unspecified E11.40 [place] [address] [place] [id number] [place] [address] May, Type 2 diabetes mellitus with diabetic neuropathy, unspecified E11.40 ; Emphysema, unspecified J43.9 ; Hypertension I10 ; Hyperlipemia E78.5 ; Vitamin D deficiency E55.9 ; Right medial knee pain M25.561 ; Controlled substance agreement signed Z79.899 ; Chronic pain G89.29 ; Allergic rhinitis J30.9 ; Anxiety associated with depression F41.8 ; Neuropathy G62.9 and Gastro- esophageal reflux disease without esophagitis K21.9 [place] [address] [place] [address] Apr, Chronic pain G89.29 [place] [address] [place] [id number] [place] [address] Apr, Other hammer toe(s) (acquired), left foot M20.42 ; Other hammer toe(s) (acquired), right foot M20.41 ; Type 2 diabetes mellitus with diabetic neuropathy, unspecified E11.40 and Onychomycosis B35.1 [place] [address] [place] [address] Apr, Gastro-esophageal reflux disease without esophagitis K21.9 [place] [address] [place] [address] Apr, Controlled substance agreement signed Z79.899 [place] [address] [place] [id number] [place] [address] Mar, Chronic pain G89.29 [place] [address] [place] [id number] [place] [address] Mar, Emphysema, unspecified J43.9 and Type 2 diabetes mellitus with diabetic neuropathy, unspecified E11.40 [facility] [address] [place] [id number] [place] [address] Mar, Dysuria R30.0 ; Vaginal candidiasis B37.3 and Acute nonintractable headache, unspecified headache type R51 [facility] [address] [place] [id number] [place] [address] Feb, Neuropathy G62.9 and Chronic pain G89.29 [place] [address] [address] Feb, Gastro-esophageal reflux disease without esophagitis K21.9 [place] [address] [address] Feb, [place] [address] [address] Feb, Rheumatoid arthritis involving multiple sites with positive rheumatoid factor M05.79 and COPD with acute exacerbation J44.1 [place] [address] [address] Feb, Vaginal odor N89.8 ; Vaginal irritation N89.8 ; Candidal dermatitis B37.2 and Screening breast examination Z12.31 [place] [address] [place] [id number] [place] [address] Feb, [facility] [address] [place] [id number] [place] [address] Feb, [place] [address] [address] Feb, [place] [address] [place] [id number] [place] [address] Feb, COPD with exacerbation J44.1 ; Tobacco abuse counseling Z71.6 ; Tobacco abuse Z72.0 ; Rheumatoid arthritis involving multiple sites with positive rheumatoid factor M05.79 and Hyperlipemia E78.5 [facility] [address] [place] [id number] [place] [address] Feb, [place] [id number] [place] [id number] [place] [id number] Jan, [facility] [address] [address] Jan, Chronic pain G89.29 [facility] [address] [place] [id number] [place] [id number] Jan, Dental examination Z01.20 [facility] [address] [address] Jan, Back pain of lumbar region with sciatica M54.40 [facility] [address] [address] 15 Jan, 2017 Acute bacterial conjunctivitis of both eyes H10.33 [place] [address] [address] 02 Jan, 2017 Chronic pain G89.29 [place] [address] [address] Dec, Type 2 diabetes mellitus with diabetic neuropathy, unspecified E11.40 ; Hypertension I10 ; Hyperlipemia E78.5 ; Gastro-esophageal reflux disease without esophagitis K21.9 ; Anxiety associated with depression F41.8 ; Allergic rhinitis J30.9 ; Neuropathy G62.9 and Dependence on nocturnal oxygen therapy Z99.81 [place] [address] [place] [id number] [place] [address] Dec, [place] [address] [address] Dec, [place] [address] [address] Dec, Encounter for immunization Z23 [place] [address] [address] 05 Dec, 2016 Type 2 diabetes mellitus with diabetic neuropathy, unspecified E11.40 and Chronic pain G89.29 [place] [address] [address] 11 Nov, 2016 Gastro-esophageal reflux disease without esophagitis K21.9 [facility] [address] [place] [id number] [place] [address] 11 Nov, 2016 Peripheral edema R60.9 and Chest pain in adult R07.9 [facility] [address] [place] [id number] [place] [address] 07 Nov, 2016 Chronic pain G89.29 [facility] [address] [address] 31 Oct, 2016 [place] [address] [address] 30 Oct, 2016 [place] [address] [place] [id number] [place] [address] 17 Oct, 2016 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 M05.731 [place] [address] [place] [id number] [place] [address] 15 Oct, 2016 [facility] [address] [place] [id number] [place] [address] Oct, Acute exacerbation of chronic obstructive pulmonary disease (COPD) J44.1 and Canker sore K12.0 [facility] [address] [place] [id number] [place] [address] 14 Oct, 2016 [facility] [address] [place] [id number] [place] [address] Oct, [facility] [address] [place] [id number] [place] [address] 09 Oct, 2016 Chronic pain G89.29 [facility] [address] [id number] Oct, Dental examination Z01.20 [facility] [address] [place] [id number] [place] [address] 08 Oct, 2016 Dental examination Z01.20 and Periodontitis K05.30 [facility] [address] [id number] Oct, Dental examination Z01.20 [facility] [id number] [place] [address] Sep, Abscess L02.91 [facility] [id number] [place] [address] Sep, Dental examination Z01.20 [facility] [address] [place] [id number] [place] [address] Sep, [facility] [address] [place] [id number] [place] [id number] Sep, Dental examination Z01.20 and Dental caries K02.9 [facility] [address] [place] [id number] [place] [address] Sep, Primary insomnia F51.01 and Anxiety associated with depression F41.8 [place] [address] [place] [id number] [place] [address] Sep, 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 M05.731 [place] [address] [place] [id number] [place] [address] Sep, Chronic pain G89.29 [place] [address] [place] [id number] [place] [address] Sep, Type 2 diabetes mellitus with diabetic neuropathy, unspecified E11.40 ; Emphysema, unspecified J43.9 ; Gastro-esophageal reflux disease without esophagitis K21.9 ; Hypertension I10 ; Hyperlipemia E78.5 ; Anxiety associated with depression F41.8 ; Chronic pain G89.29 ; Vitamin D deficiency E55.9 and Primary insomnia F51.01 [place] [address] [place] [id number] [place] [address] 16 Aug, 2016 Anxiety associated with depression F41.8 [place] [address] [place] [id number] [place] [address] Aug, Chronic pain G89.29 and Neuropathy G62.9 [place] [address] [place] [id number] [place] [address] Aug, Type 2 diabetes mellitus with diabetic neuropathy, unspecified E11.40 ; Rheumatoid arthritis involving multiple sites with positive rheumatoid factor M05.79 ; Vitamin D deficiency E55.9 ; Anxiety associated with depression F41.8 and Primary insomnia F51.01 [place] [address] [place] [id number] [place] [address] July, Emphysema, unspecified J43.9 [place] [address] [place] [id number] [place] [address] July, Allergic rhinitis J30.9 [place] [address] [place] [id number] [place] [address] July, Allergic rhinitis J30.9 ; Emphysema, unspecified J43.9 and 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 M05.731 [place] [address] [place] [id number] [place] [address] July, Neuropathy G62.9 and Chronic pain G89.29 [place] [address] [place] [id number] [place] [address] July, Rheumatoid arthritis involving multiple sites with positive rheumatoid factor M05.79 [place] [address] [place] [id number] [place] [address] Jun, [place] [address] [place] [id number] [place] [address] Jun, Neuropathy G62.9 and Chronic pain G89.29 [place] [address] [place] [id number] [place] [address] May, Neuropathy G62.9 and Chronic pain G89.29 [place] [address] [place] [id number] [place] [address] 08 May, 2016 [place] [address] [place] [id number] [place] [address] May, [place] [address] [place] [id number] [place] [address] May, Type 2 diabetes mellitus with diabetic [...] system involvement with positive rheumatoid factor M05.732 [place] [address] [address] Apr, Chronic pain G89.[address] [address] Mar, Gastro-esophageal reflux disease without esophagitis K21.9 [place] [id number] [place] [address] Mar, [place] [id number] [place] [address] Mar, 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 M05.731 [place] [id number] [place] [address] Mar, Chronic pain G89.[address] [address] Feb, Hyperlipemia E78.[address] [address] Feb, Abnormal breath sounds R06.89 ; COPD with exacerbation J44.1 and Fatigue, unspecified type R53.[address] [address] Feb, Neuropathy G62.9 ; Abnormal lung sounds R09.89 and Bronchitis J40 [facility] [id number] [place] [address] Feb, Bronchitis J40 [facility] [address] [place] [id number] [place] [address] Feb, Chronic pain G89.29 [place] [address] [place] [id number] [place] [address] Jan, Type 2 diabetes mellitus with diabetic neuropathy, unspecified E11.40 ; 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 M05.731 and Hyperlipemia E78.5 [place] [address] [place] [id number] [place] [address] Jan, 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 M05.731 [place] [address] [place] [id number] [place] [address] Jan, De Quervain's disease (radial styloid tenosynovitis) M65.4 ; Closed nondisplaced fracture of scaphoid of left wrist, unspecified portion of scaphoid, initial encounter S62.002A and Peripheral tear of medial meniscus of left knee, unspecified whether old or current tear, initial encounter S83.222A [place] [address] [place] [id number] [place] [address] Jan, Hypertension I10 ; Type 2 diabetes mellitus with diabetic neuropathy, unspecified E11.40 ; Hyperlipemia E78.5 ; Allergic rhinitis J30.9 ; Neuropathy G62.9 ; 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 M05.731 ; Acute non-recurrent maxillary sinusitis J01.00 and Chronic pain G89.29 [facility] [address] [place] [address] Dec, [place] [address] [place] [id number] [place] [address] Dec, [place] [address] [place] [address] Dec, Type 2 diabetes mellitus with diabetic neuropathy, unspecified E11.40 ; Emphysema, unspecified J43.9 ; Gastro-esophageal reflux disease without esophagitis K21.9 ; Hypertension I10 ; Hyperlipemia E78.5 ; 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 M05.731 ; Elevated white blood cell count, unspecified D72.829 ; Acute non- recurrent frontal sinusitis J01.10 and Chronic pain G89.29 [place] [address] [place] [id number] [place] [address] Nov, [place] [address] [place] [id number] [place] [address] Nov, Elevated white blood cell count, unspecified D72.829 ; Encounter for immunization Z23 ; 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 M05.731 ; Injury of left hand S69.92XA ; Pain in left knee M25.562 and Other chronic pain G89.29 [place] [address] [place] [id number] [place] [address] Nov, [place] [address] [place] [id number] [place] [address] Nov, [place] [address] [place] [id number] [place] [address] Oct, [place] [address] [place] [id number] [place] [address] Oct, Hyperlipemia E78.5 [place] [address] [place] [id number] [place] [address] Oct, [place] [address] [place] [id number] [place] [address] Oct, Type 2 diabetes mellitus with diabetic neuropathy, unspecified E11.40 ; Neuropathy G62.9 ; Hypertension I10 ; Chronic pain G89.29 and Hyperlipemia E78.5 [place] [address] [place] [address] Oct, Emphysema, unspecified J43.9 and Rheumatoid arthritis of left wrist without organ or system involvement with positive rheumatoid factor M05.732 [place] [address] [place] [id number] [place] [address] Sep, Chronic pain syndrome G89.4 [place] [address] [place] [id number] [place] [address] Sep, [place] [address] [place] [id number] [place] [address] Sep, [place] [address] [place] [id number] [place] [address] Sep, Closed nondisplaced fracture of scaphoid of left wrist, unspecified portion of scaphoid, initial encounter S62.002A [place] [address] [place] [id number] [place] [id number] Sep, Type 2 diabetes mellitus with diabetic neuropathy, unspecified E11.40 ; Hypertension I10 ; Hyperlipemia E78.5 and Acute non-recurrent maxillary sinusitis J01.00 [place] [id number] [place] [id number] Sep, [place] [id number] [place] [id number] Sep, [place] [id number] [place] [phone] Sep, [place] [id number] [place] [phone] Sep, [place] [address] [place] [id number] [place] [phone] Aug, Epigastric pain R10.13 and Right upper quadrant pain R10.11 [place] [id number] [place] [phone] Aug, Closed nondisplaced fracture of scaphoid of left wrist, unspecified portion of scaphoid, initial encounter S62.002A [place] [id number] [place] [address] Aug, [place] [id number] [place] [address] Aug, [facility] [id number] [place] [phone] Aug, Shortness of breath R06.02 ; Epigastric pain R10.13 and Injury of left lower arm, initial encounter S59.912A [place] [address] [address] [id number] [place] [address] Aug, Coronary artery disease involving [place] heart with angina pectoris, unspecified vessel or lesion type I25.119 ; Pulmonary emphysema, unspecified emphysema type J43.9 and Snoring R06.83 [place] [address] [place] [id number] [place] [address] Aug, [place] [address] [place] [address] [id number] [place] [phone] Aug, Emphysema, unspecified J43.9 ; Atherosclerotic heart disease of [place] coronary artery 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.10 and Hypertension I10 [place] [id number] [place] [phone] July, [place] [address] [place] [id number] [place] [phone] July, Closed nondisplaced fracture of scaphoid of left wrist, unspecified portion of scaphoid, initial encounter S62.002A [place] [address] [place] [id number] [place] [phone] July, [place] [id number] [place] [address] July, Type 2 diabetes mellitus with diabetic neuropathy, unspecified E11.40 ; Emphysema, unspecified J43.9 ; Atherosclerotic heart disease of [place] coronary artery 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.10 ; [...] agents L24.89 and Hospital discharge follow-up Z09 [place] [address] [place] [address] [id number] [place] [phone] July, [place] [address] [place] [address] [id number] [place] [address] July, Type 2 diabetes mellitus with diabetic neuropathy, unspecified E11.40 [place] [address] [place] [id number] [place] [address] July, Type 2 diabetes mellitus with diabetic neuropathy, unspecified E11.40 and Rheumatoid arthritis of left wrist without organ or system involvement with positive rheumatoid factor M05.732 [place] [address] [place] [address] [id number] [place] [address] July, [place] [address] [place] [id number] [place] [phone] July, [place] [address] [id number] [place] [address] Jun, [place] [address] [id number] [place] [address] Jun, [place] [address] [place] [address] [id number] [place] [phone] Jun, 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 [place] [address] [place] [id number] [place] [address] Jun, [place] [address] [place] [address] [id number] [place] [address] 14 Jun, 2015 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 [place] [address] [place] [id number] [place] [address] 14 Jun, 2015 [place] [address] [place] [address] [id number] [place] [address] Jun, [place] [address] [address] Jun, Encounter for PPD test Z11.1 ; 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 M05.731 and Rheumatoid arthritis of left wrist without organ or system involvement with positive rheumatoid factor M05.732 [place] [address] [place] [id number] [place] [phone] Jun, Type 2 diabetes mellitus with diabetic neuropathy, unspecified E11.40 [place] [address] [place] [id number] [place] [address] May, Type 2 diabetes mellitus with diabetic neuropathy, unspecified E11.40 ; Emphysema, unspecified J43.9 ; 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 M05.731 ; Rheumatoid arthritis of left wrist without organ or system involvement with positive rheumatoid factor M05.732 and Chronic pain G89.29 [place] [address] [address] May, [place] [address] [place] [address] [id number] [place] [address] May, Swelling of hand joint M25.449 ; Ankle swelling M25.473 and Joint pain M25.50 [place] [address] [place] [id number] [place] [address] May, Emphysema, unspecified J43.9 [place] [address] [place] [id number] [place] [address] May, Gastroenteritis K52.9 and Hypertension I10 [place] [address] [address] Apr, [place] [address] [address] Apr, [place] [address] [id number] [place] [address] Apr, [address] [address] Apr, Type 2 diabetes mellitus with diabetic neuropathy, unspecified E11.40 ; Emphysema, unspecified J43.9 ; Atherosclerotic heart disease of [place] coronary artery 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.10 ; Migraine without aura, not intractable, with status migrainosus G43.001 ; Gastro-esophageal reflux disease without esophagitis K21.9 ; CAD (coronary artery disease) I25.10 ; Hypertension I10 ; Hyperlipemia E78.5 ; Allergic rhinitis J30.9 ; Neuropathy G62.9 ; Anxiety associated with depression F41.8 and Injury of left hand S69.92XA [address] [address] Apr, [address] [address] Apr, [place] [id number] [place] [address] Apr, Type 2 diabetes mellitus with diabetic neuropathy, unspecified E11.40 ; Emphysema, unspecified J43.9 ; Essential (primary) hypertension I10 ; Atherosclerotic heart disease of [place] coronary artery 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.10 ; Gastro-esophageal reflux disease without esophagitis K21.9 ; CAD (coronary artery disease) I25.10 ; Hyperlipemia E78.5 ; Hypertension I10 ; History of solitary pulmonary nodule Z87.898 ; Allergic rhinitis J30.9 ; Chronic pain G89.29 and Depression with anxiety F41.[address] [address] Mar, [address] [address] Mar, Allergic rhinitis J30.9 ; URI (upper respiratory infection) J06.9 and Other viral agents as the cause of diseases classified elsewhere B97.89 [facility] [id number] [place] [phone] Feb, Acute nasopharyngitis [common cold] J00 and Acute diarrhea R19.7 [facility] [id number] [place] [phone] Feb, Depression F32.9 [facility] [address] [address] Jan, Otitis media, right H66.91 [place] [address] [address] [id number] [place] [address] Jan, [place] [address] [address] Jan, Type 2 diabetes mellitus with diabetic neuropathy, unspecified E11.40 [place] [address] [address] Jan, [place] [address] [place] [id number] [place] [address] Jan, Hyperlipemia E78.5 [place] [address] [place] [id number] [place] [address] Jan, Type 2 diabetes mellitus with diabetic neuropathy, unspecified E11.40 ; Emphysema, unspecified J43.9 ; CAD (coronary artery disease) I25.10 and Hyperlipemia E78.5 [place] [address] [place] [id number] [place] [address] Dec, Allergic rhinitis J30.9 and Fungal infection B49 [place] [address] [place] [id number] [place] [address] Dec, [place] [address] [place] [address] [id number] [place] [address] Dec, [facility] [address] [id number] [place] [address] Dec, Chest pain R07.9 ; CAD (coronary artery disease) I25.10 ; Hypertension I10 and Hyperlipemia E78.5 [place] [address] [address] Dec, Pain in thoracic spine M54.6 ; Gastro-esophageal reflux disease without esophagitis K21.9 ; Emphysema, unspecified J43.9 and Migraine without aura, not intractable, with status migrainosus G43.001 [place] [address] [address] Dec, [place] [address] [address] Nov, Influenza vaccine administered V04.81 [place] [address] [address] Nov, [place] [address] [address] Sep, [place] [address] [address] Sep, [place] [address] [address] Sep, CAD (coronary artery disease) 414.00 and Diabetes type 2, uncontrolled 250.02 [place] [address] [address] Sep, CAD (coronary artery disease) 414.00 ; Diabetes type 2, uncontrolled 250.02 and Migraine 346.90 IMMUNIZATIONS Vaccine Route Administration Date Status FLULAVAL QUAD 0.5ML (6 MO & UP) 2018 IM Intramuscular Dec 11, 2017 Administered SOCIAL HISTORY Never Assessed REASON FOR VISIT Diabetes Leona Slade MA, Needs 02 tested for "Virtuox recert" PLAN OF CARE Activity Details Follow Up 3 Months, prn Reason:CHM-DM/RA w/ Dr Barajas- Pending Test CMP VITAL SIGNS Height 66 in 2017-12-11 Weight 184.6 lbs 2017-12-11 Temperature 97.6 degrees Fahrenheit 2017-12-11 Heart Rate 87 bpm 2017-12-11 Respiratory Rate 18 2017-12-11 Oximetry ambulating w/o oxygen:92 % 2017-12-11 BMI 29.79 kg/m2 2017-12-11 Blood pressure systolic 108 mmHg 2017-12-11 Blood pressure diastolic 64 mmHg 2017-12-11 MEDICATIONS Medication Instructions Dosage Frequency Start Date End Date Duration Status Fish Oil 1200 MG Orally Once a day 1 capsule 24h Active Protonix 40 mg Orally Once a day 1 tablet 24h 90 Active Sucralfate 1 GM TAKE ONE TABLET BY MOUTH EVERY 6 HOURS 30 Active Albuterol Sulfate (2.5 MG/3ML) 0.083% Inhalation Three times a day 3 ml 8h Active Metoprolol Tartrate 25 MG TAKE ONE TABLET BY MOUTH TWICE DAILY Active Depend Adjustable Underwear Lg 1 as directed 3 times a day use one depends three times per day as needed 8h May, Active Hydroxychloroquine Sulfate 200 MG TAKE ONE TABLET BY MOUTH ONCE DAILY WITH FOOD OR MILK 90 Active Hydrocodone-Acetaminophen 7.5-325 MG Orally every 6 hours as needed 1 tablet as needed Nov, 28 days Active HydrOXYzine HCl 25 MG Orally every 8 hrs 1 tablet as needed 8h 30 Active Aleve 220 MG Orally every 12 hrs 1 tablet 12h Active Glucocard Expression Test - In Vitro 4 times a 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 test blood sugar May, Active Easy Touch Pen Laff[place] 32G X 4 MM sq 4 times a day as directed 6h Sep, Active Quad Cane as directed May, Active Lyrica 100 mg Orally Three times a day 1 capsule 8h Dec, Active Blood Glucose Monitor System w/Device as directed July, Active Aspirin EC Low Dose 81 MG TAKE ONE TABLET BY MOUTH ONCE DAILY 90 Active Ventolin HFA 108 (90 Base) MCG/ACT INHALE TWO PUFFS BY MOUTH EVERY 4 HOURS NEEDED (MUST HAVE APPOINTMENT FOR REFILL) Active Symbicort 160-4.5 MCG/ACT INHALE 2 PUFFS BY MOUTH TWICE DAILY. (NEED TO MAKE AN APPOINTMENT FOR REFILLS) Active Baclofen 10 MG TAKE ONE TABLET BY MOUTH THREE TIMES DAILY WITH FOOD OR MILK 90 Active Oxygen Active Victoza 18 MG/3ML INJECT 1.8 MG SUBCUTANEOUSLY ONCE DAILY Active Qnasl 80 MCG/ACT USE TWO SPRAYS IN EACH NOSTRIL ONCE DAILY 30 Active Ondansetron HCl 4 MG Orally Twice a day 1 tablet 12h Oct, 3 days Active Trazodone HCl 50 MG TAKE ONE TABLET BY MOUTH ONCE DAILY AT BEDTIME NEEDED 30 Active Atorvastatin Calcium 10 MG TAKE ONE TABLET BY MOUTH ONCE DAILY 30 Active Citalopram Hydrobromide 20 MG TAKE ONE TABLET BY MOUTH ONCE DAILY 30 Active Lisinopril 5 MG Orally Once a day 1 tablet 24h Oct, Active Folic Acid 1 MG TAKE ONE TABLET BY MOUTH ONCE DAILY 90 Active Cetirizine HCl 10 Orally Once a day TAKE 1 TABLET BY MOUTH DAILY 24h Active Metformin HCl 1000 MG TAKE ONE TABLET BY MOUTH TWICE DAILY WITH MEALS Active Methotrexate 2.5 MG TAKE 10 TABLETS BY MOUTH ONCE WEEKLY 84 Active Meclizine HCl 25 MG Orally Once a day 1 tablet as needed 24h Oct, 3 days Active Nicotine 21 MG/24HR Transdermal Once a day 1 patch to skin 24h Feb, Active RESULTS Name Result Date Reference Range A1C (IN HOUSE) 2017-12-11 A1C IN HOUSE 5.8 4.3 - 5.6 % Previous A1c 5.8 Lot [id number] Exp date 06/06 PROCEDURES Procedure Date Ordered Result Body Site LAB NOT BILLED BY [facility] Dec 11, 2017 GLYCATED HEMOGLOBIN TEST Dec 11, 2017 SINGLE IMMUNIZATION ADMIN Dec 11, 2017 FLULAVAL QUAD 0.5ML (6 MO AND UP) 2017Dec 11, 2017 INSTRUCTIONS MEDICATIONS ADMINISTERED No Known Medications MEDICAL (GENERAL) HISTORY Type Description Date Medical History COPD Medical History Type 2 Diabetes Medical History HTN Medical History Cardiac stents July 2010 post CA-stent to LAD Medical History Rheumatoid Arthritis Medical History 04/2016---Echo- 60%//mild hypertrophy at the base of the septum, mild mitral regurg/ mild tricuspid regurg. PAP about 10-15 mmHg Medical History 04/2016------Normal Lexiscan Medical History Elevated white blood cell count, unspecified Medical History Atherosclerotic heart disease of [place] coronary artery without angina pectoris Medical History [...]
--- OUTSIDE RECORDS SUMMARY | 2018-08-23 16:43 | XMS REPORT ---
Author Author PANCHOROBCLAU Organization [facility] Address [address] [place] [address] Care Team Providers Care [employer] Name Role Phone DELEONROB MoranELE Unavailable PROBLEMS Type Condition ICD9-CM Code DIL25-KI Code Onset Dates Condition Status SNOMED Code Problem Neuropathy G62.9 Active 625877130 Problem Other hammer toe(s) (acquired), right foot M20.41 Active 762242050 Problem Other hammer toe(s) (acquired), left foot M20.42 Active 21748338 Problem Intractable migraine without status migrainosus, unspecified migraine type G43.919 Active 047123405 Problem Gastro-esophageal reflux disease without esophagitis K21.9 Active 904507757 Problem Elevated white blood cell count, unspecified D72.829 Active 368845071 Problem Hypertension I10 Active 56814251 Problem Hyperlipemia E78.5 Active 93732335 Problem Hammer toe of left foot M20.42 Active 654478159 Problem Tobacco abuse Z72.0 Active 462034615 Problem Other chronic pain G89.29 Active 13971726 Problem 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 Active 734893440610883 Problem Allergic rhinitis J30.9 Active 66103273 Problem Anxiety associated with depression F41.8 Active 689884102 Problem Emphysema, unspecified J43.9 Active 13153816 Problem Type 2 diabetes mellitus with diabetic neuropathy, unspecified E11.40 Active 60076054 Problem Rheumatoid arthritis involving multiple sites with positive rheumatoid factor M05.79 Active 385857522 Problem Primary insomnia F51.01 Active 1136153 Problem Chronic pain G89.29 Active 22911923 Problem Periodontitis K05.30 Active 20146679 Problem Vitamin D deficiency E55.9 Active 11241497 Problem OAB (overactive bladder) N32.81 Active 952469835 Problem Dependence on nocturnal oxygen therapy Z99.81 Active [id number] ALLERGIES No Information ENCOUNTERS Encounter Location Date Diagnosis [place] [id number] [place] [address] Jan, [place] [address] [address] Dec, [facility] [address] [address] Nov, Type 2 diabetes mellitus with diabetic neuropathy, unspecified E11.40 ; Neuropathy G62.9 ; Hypertension I10 ; Dependence on nocturnal oxygen therapy Z99.81 ; Emphysema, unspecified J43.9 and Encounter for immunization Z23 [place] [address] [address] 07 Nov, 2017 Chronic pain G89.29 [place] [address] [address] 06 Nov, 2017 Chronic pain G89.29 [facility] [address] [address] Oct, Dysuria R30.0 ; Intractable migraine without status migrainosus, unspecified migraine type G43.919 and Back pain at L4-L5 level M54.5 [place] [address] [address] Oct, Orthostatic hypotension I95.1 [place] [address] [address] Oct, Localized swelling of both lower legs R22.43 ; Onychomycosis B35.1 and Type 2 diabetes mellitus with diabetic neuropathy, unspecified E11.40 [place] [address] [address] Oct, [place] [address] [address] Oct, Elevated white blood cell count, unspecified D72.829 [place] [address] [address] Oct, Elevated white blood cell count, unspecified D72.829 [facility] [id number] [place] [address] Oct, Chronic pain G89.29 [place] [id number] [place] [address] Oct, [facility] [id number] [place] [address] Oct, [place] [id number] [place] [address] Oct, Orthostatic hypotension I95.1 ; Dizziness R42 and Neuropathy G62.9 [facility] [id number] [place] [address] Oct, Dizziness R42 ; Low back pain M54.5 ; Other chronic pain G89.29 ; Nausea R11.0 and Orthostatic hypotension I95.1 [place] [id number] [place] [address] Sep, Rheumatoid arthritis involving multiple sites with positive rheumatoid factor M05.79 and Tobacco abuse Z72.0 [place] [id number] [place] [address] Sep, Chronic pain G89.29 [place] [id number] [place] [address] Aug, Type 2 diabetes mellitus with diabetic neuropathy, unspecified E11.40 ; Hypertension I10 ; Hyperlipemia E78.5 ; Gastro-esophageal reflux disease without esophagitis K21.9 ; Emphysema, unspecified J43.9 ; Anxiety associated with depression F41.8 ; Vitamin D deficiency E55.9 ; Chronic pain G89.29 ; Tobacco abuse Z72.0 ; Overweight (BMI 25.0-29.9) E66.3 ; 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 ; OAB (overactive bladder) N32.81 and Primary insomnia F51.01 [place] [id number] [address] July, [facility] [id number] [place] [address] July, [facility] [id number] [place] [address] July, Chronic pain G89.29 [facility] [id number] [place] [address] July, [facility] [id number] [place] [address] July, Onychomycosis B35.1 ; Hammer toe of left foot M20.42 and Type 2 diabetes mellitus with diabetic neuropathy, unspecified E11.40 [facility] [id number] [place] [address] July, [facility] [id number] [place] [address] July, Chronic pain G89.29 and Neuropathy G62.9 [facility] [id number] [address] July, [facility] [id number] [place] [address] July, [facility] [address] [address] Jun, [facility] [address] [place] [address] Jun, Chronic pain G89.29 [facility] [address] [address] Jun, [facility] [id number] [place] [address] Jun, [facility] [address] [address] Jun, Visit for TB skin test Z11.1 [place] [address] [address] 16 Jun, 2017 [place] [id number] [place] [address] Jun, [place] [id number] [place] [address] Jun, Tobacco abuse Z72.0 and Rheumatoid arthritis involving multiple sites with positive rheumatoid factor M05.79 [place] [id number] [place] [address] Jun, Anxiety F41.9 ; Acute non-recurrent maxillary sinusitis J01.00 and Chronic pain G89.29 [place] [id number] [place] [address] Jun, [place] [id number] [place] [address] May, Rheumatoid arthritis involving multiple sites with positive rheumatoid factor M05.79 [place] [id number] [place] [address] May, Chronic pain G89.29 [place] [id number] [place] [address] May, [place] [id number] [place] [address] May, [place] [address] [place] [address] May, [place] [id number] [place] [address] May, Type 2 diabetes mellitus with diabetic neuropathy, unspecified E11.40 [place] [address] [place] [address] May, Type 2 diabetes mellitus with diabetic neuropathy, unspecified E11.40 ; Emphysema, unspecified J43.9 ; Hypertension I10 ; Hyperlipemia E78.5 ; Vitamin D deficiency E55.9 ; Right medial knee pain M25.561 ; Controlled substance agreement signed Z79.899 ; Chronic pain G89.29 ; Allergic rhinitis J30.9 ; Anxiety associated with depression F41.8 ; Neuropathy G62.9 and Gastro- esophageal reflux disease without esophagitis K21.9 [place] [id number] [place] [address] Apr, Chronic pain G89.29 [place] [address] [address] 16 Apr, 2017 Other hammer toe(s) (acquired), left foot M20.42 ; Other hammer toe(s) (acquired), right foot M20.41 ; Type 2 diabetes mellitus with diabetic neuropathy, unspecified E11.40 and Onychomycosis B35.1 [place] [address] [address] 2017 Gastro-esophageal reflux disease without esophagitis K21.9 [place] [id number] [place] [address] Apr, Controlled substance agreement signed Z79.899 [place] [address] [address] Mar, Chronic pain G89.29 [place] [address] [id number] [place] [address] Mar, Emphysema, unspecified J43.9 and Type 2 diabetes mellitus with diabetic neuropathy, unspecified E11.40 [facility] [id number] [place] [address] Mar, Dysuria R30.0 ; Vaginal candidiasis B37.3 and Acute nonintractable headache, unspecified headache type R51 [place] [id number] [place] [address] Feb, Neuropathy G62.9 and Chronic pain G89.29 [place] [address] [address] Feb, Gastro-esophageal reflux disease without esophagitis K21.9 [facility] [id number] [place] [address] Feb, [facility] [address] [place] [id number] [place] [address] Feb, Rheumatoid arthritis involving multiple sites with positive rheumatoid factor M05.79 and COPD with acute exacerbation J44.1 [facility] [address] [id number] [place] [address] Feb, Vaginal odor N89.8 ; Vaginal irritation N89.8 ; Candidal dermatitis B37.2 and Screening breast examination Z12.31 [place] [id number] [place] [address] Feb, [place] [address] [id number] [place] [address] Feb, [facility] [address] [id number] [place] [address] Feb, [facility] [address] [id number] [place] [address] Feb, COPD with exacerbation J44.1 ; Tobacco abuse counseling Z71.6 ; Tobacco abuse Z72.0 ; Rheumatoid arthritis involving multiple sites with positive rheumatoid factor M05.79 and Hyperlipemia E78.5 [facility] [address] [id number] [place] [address] Feb, [facility] [id number] [place] [id number] Jan, [facility] [id number] [place] [address] Jan, Chronic pain G89.29 [facility] [id number] [place] [id number] Jan, Dental examination Z01.20 [facility] [address] [address] Jan, Back pain of lumbar region with sciatica M54.40 [facility] [id number] [place] [address] 15 Jan, 2017 Acute bacterial conjunctivitis of both eyes H10.33 [place] [id number] [place] [address] 02 Jan, 2017 Chronic pain G89.29 [place] [address] [address] Dec, Type 2 diabetes mellitus with diabetic neuropathy, unspecified E11.40 ; Hypertension I10 ; Hyperlipemia E78.5 ; Gastro-esophageal reflux disease without esophagitis K21.9 ; Anxiety associated with depression F41.8 ; Allergic rhinitis J30.9 ; Neuropathy G62.9 and Dependence on nocturnal oxygen therapy Z99.81 [place] [address] [address] Dec, [place] [address] [address] Dec, [place] [address] [address] Dec, Encounter for immunization Z23 [place] [address] [address] 05 Dec, 2016 Type 2 diabetes mellitus with diabetic neuropathy, unspecified E11.40 and Chronic pain G89.29 [place] [id number] [place] [address] Nov, Gastro-esophageal reflux disease without esophagitis K21.9 [place] [address] [address] 11 Nov, 2016 Peripheral edema R60.9 and Chest pain in adult R07.9 [place] [id number] [place] [address] 07 Nov, 2016 Chronic pain G89.29 [place] [address] [place] [address] Oct, [facility] [id number] [place] [address] Oct, [facility] [id number] [place] [address] 17 Oct, 2016 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 M05.731 [facility] [address] [address] 15 Oct, 2016 [facility] [id number] [place] [address] 14 Oct, 2016 Acute exacerbation of chronic obstructive pulmonary disease (COPD) J44.1 and Canker sore K12.0 [facility] [id number] [place] [address] Oct, [facility] [id number] [place] [address] Oct, [facility] [id number] [place] [address] Oct, Chronic pain G89.29 [facility] [address] [id number] Oct, Dental examination Z01.20 [facility] [id number] [place] [address] Oct, Dental examination Z01.20 and Periodontitis K05.30 [facility] [id number] [place] [id number] Oct, Dental examination Z01.20 [facility] [id number] [place] [address] Sep, Abscess L02.91 [facility] [id number] [place] [address] Sep, Dental examination Z01.20 [facility] [id number] [place] [address] Sep, [facility] [address] [id number] [id number] Sep, Dental examination Z01.20 and Dental caries K02.9 [place] [id number] [place] [address] Sep, Primary insomnia F51.01 and Anxiety associated with depression F41.8 [place] [id number] [place] [address] Sep, 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 M05.731 [place] [id number] [place] [address] Sep, Chronic pain G89.29 [address] [place] [address] Sep, Type 2 diabetes mellitus with diabetic neuropathy, unspecified E11.40 ; Emphysema, unspecified J43.9 ; Gastro-esophageal reflux disease without esophagitis K21.9 ; Hypertension I10 ; Hyperlipemia E78.5 ; Anxiety associated with depression F41.8 ; Chronic pain G89.29 ; Vitamin D deficiency E55.9 and Primary insomnia F51.01 [address] [place] [address] 16 Aug, 2016 Anxiety associated with depression F41.8 [place] [address] [place] [address] Aug, Chronic pain G89.29 and Neuropathy G62.[address] [place] [address] Aug, Type 2 diabetes mellitus with diabetic neuropathy, unspecified E11.40 ; Rheumatoid arthritis involving multiple sites with positive rheumatoid factor M05.79 ; Vitamin D deficiency E55.9 ; Anxiety associated with depression F41.8 and Primary insomnia F51.01 [address] [place] [address] July, Emphysema, unspecified J43.9 [place] [id number] [place] [address] July, Allergic rhinitis J30.9 [place] [id number] [place] [address] July, Allergic rhinitis J30.9 ; Emphysema, unspecified J43.9 and 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 M05.731 [place] [address] [address] July, Neuropathy G62.9 and Chronic pain G89.29 [place] [address] [address] July, Rheumatoid arthritis involving multiple sites with positive rheumatoid factor M05.79 [place] [address] [address] Jun, [place] [address] [address] Jun, Neuropathy G62.9 and Chronic pain G89.29 [place] [address] [address] May, Neuropathy G62.9 and Chronic pain G89.29 [place] [id number] [place] [address] May, [place] [address] [address] May, [place] [id number] [place] [address] May, Type 2 diabetes mellitus with diabetic [...] system involvement with positive rheumatoid factor M05.732 [place] [id number] [place] [address] 14 Apr, 2016 Chronic pain G89.29 [place] [address] [address] Mar, Gastro-esophageal reflux disease without esophagitis K21.9 [place] [address] [address] Mar, [place] [address] [address] Mar, 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 M05.731 [place] [address] [address] Mar, Chronic pain G89.29 [place] [address] [address] Feb, Hyperlipemia E78.5 [place] [address] [address] Feb, Abnormal breath sounds R06.89 ; COPD with exacerbation J44.1 and Fatigue, unspecified type R53.83 [place] [id number] [place] [address] Feb, Neuropathy G62.9 ; Abnormal lung sounds R09.89 and Bronchitis J40 [facility] [address] [address] Feb, Bronchitis J40 [place] [address] [address] Feb, Chronic pain G89.29 [place] [address] [address] Jan, Type 2 diabetes mellitus with diabetic neuropathy, unspecified E11.40 ; 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 M05.731 and Hyperlipemia E78.5 [place] [address] [place] [address] Jan, 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 M05.731 [place] [id number] [place] [address] Jan, De Quervain's disease (radial styloid tenosynovitis) M65.4 ; Closed nondisplaced fracture of scaphoid of left wrist, unspecified portion of scaphoid, initial encounter S62.002A and Peripheral tear of medial meniscus of left knee, unspecified whether old or current tear, initial encounter S83.222A [place] [id number] [place] [address] Jan, Hypertension I10 ; Type 2 diabetes mellitus with diabetic neuropathy, unspecified E11.40 ; Hyperlipemia E78.5 ; Allergic rhinitis J30.9 ; Neuropathy G62.9 ; 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 M05.731 ; Acute non-recurrent maxillary sinusitis J01.00 and Chronic pain G89.29 [place] [id number] [place] [address] Dec, [place] [id number] [place] [address] Dec, [place] [id number] [place] [address] Dec, Type 2 diabetes mellitus with diabetic neuropathy, unspecified E11.40 ; Emphysema, unspecified J43.9 ; Gastro-esophageal reflux disease without esophagitis K21.9 ; Hypertension I10 ; Hyperlipemia E78.5 ; 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 M05.731 ; Elevated white blood cell count, unspecified D72.829 ; Acute non- recurrent frontal sinusitis J01.10 and Chronic pain G89.29 [place] [id number] [place] [address] Nov, [place] [id number] [place] [address] Nov, Elevated white blood cell count, unspecified D72.829 ; Encounter for immunization Z23 ; 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 M05.731 ; Injury of left hand S69.92XA ; Pain in left knee M25.562 and Other chronic pain G89.29 [place] [id number] [place] [address] Nov, [place] [id number] [place] [address] Nov, [place] [id number] [place] [address] Oct, [place] [id number] [place] [address] Oct, Hyperlipemia E78.5 [place] [id number] [place] [address] Oct, [place] [id number] [place] [address] Oct, Type 2 diabetes mellitus with diabetic neuropathy, unspecified E11.40 ; Neuropathy G62.9 ; Hypertension I10 ; Chronic pain G89.29 and Hyperlipemia E78.5 [place] [id number] [place] [address] Oct, Emphysema, unspecified J43.9 and Rheumatoid arthritis of left wrist without organ or system involvement with positive rheumatoid factor M05.732 [facility] [id number] [place] [address] Sep, Chronic pain syndrome G89.4 [place] [id number] [place] [address] Sep, [facility] [id number] [place] [address] Sep, [facility] [id number] [place] [address] Sep, Closed nondisplaced fracture of scaphoid of left wrist, unspecified portion of scaphoid, initial encounter S62.002A [facility] [id number] [place] [address] Sep, Type 2 diabetes mellitus with diabetic neuropathy, unspecified E11.40 ; Hypertension I10 ; Hyperlipemia E78.5 and Acute non-recurrent maxillary sinusitis J01.00 [place] [id number] [place] [address] Sep, [facility] [id number] [place] [id number] Sep, [facility] [id number] [place] [phone] Sep, [facility] [id number] [place] [id number] Sep, [facility] [id number] [place] [id number] Aug, Epigastric pain R10.13 and Right upper quadrant pain R10.11 [place] [id number] [place] [id number] Aug, Closed nondisplaced fracture of scaphoid of left wrist, unspecified portion of scaphoid, initial encounter S62.002A [facility] [id number] [place] [id number] Aug, [facility] [address] [id number] [place] [address] Aug, [facility] [id number] [place] [address] Aug, Shortness of breath R06.02 ; Epigastric pain R10.13 and Injury of left lower arm, initial encounter S59.912A [place] [address] [address] Aug, Coronary artery disease involving minto heart with angina pectoris, unspecified vessel or lesion type I25.119 ; Pulmonary emphysema, unspecified emphysema type J43.9 and Snoring R06.83 [place] [address] [address] Aug, [place] [address] [address] Aug, Emphysema, unspecified J43.9 ; 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 and Hypertension I10 [place] [address] [address] July, [address] [address] July, Closed nondisplaced fracture of scaphoid of left wrist, unspecified portion of scaphoid, initial encounter S62.002A [place] [address] [address] July, [place] [address] [place] [id number] [place] [address] July, Type 2 diabetes mellitus with diabetic neuropathy, unspecified E11.40 ; Emphysema, unspecified J43.9 ; 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 ; [...] agents L24.89 and Hospital discharge follow-up Z09 [place] [address] [address] July, [facility] [address] [address] July, Type 2 diabetes mellitus with diabetic neuropathy, unspecified E11.40 [facility] [address] [place] [id number] [address] July, Type 2 diabetes mellitus with diabetic neuropathy, unspecified E11.40 and Rheumatoid arthritis of left wrist without organ or system involvement with positive rheumatoid factor M05.732 [facility] [address] [facility] [id number] [address] July, [facility] [address] [address] July, [facility] [id number] [address] Jun, [facility] [id number] [address] Jun, [facility] [id number] [address] Jun, 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 [facility] [address] [place] [id number] [address] Jun, [facility] [id number] [address] Jun, 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 [facility] [address] [place] [id number] [address] Jun, [facility] [address] [place] [id number] [address] Jun, [facility] [id number] [address] Jun, Encounter for PPD test Z11.1 ; 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 M05.731 and Rheumatoid arthritis of left wrist without organ or system involvement with positive rheumatoid factor M05.732 [place] [address] [place] [id number] [place] [address] Jun, Type 2 diabetes mellitus with diabetic neuropathy, unspecified E11.40 [place] [address] [place] [id number] [place] [address] May, Type 2 diabetes mellitus with diabetic neuropathy, unspecified E11.40 ; Emphysema, unspecified J43.9 ; 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 M05.731 ; Rheumatoid arthritis of left wrist without organ or system involvement with positive rheumatoid factor M05.732 and Chronic pain G89.29 [place] [address] [address] May, [place] [address] [place] [id number] [place] [address] May, Swelling of hand joint M25.449 ; Ankle swelling M25.473 and Joint pain M25.50 [place] [address] [place] [id number] [place] [address] May, Emphysema, unspecified J43.9 [place] [address] [place] [id number] [place] [address] May, Gastroenteritis K52.9 and Hypertension I10 [place] [address] [place] [id number] [place] [address] Apr, [place] [address] [place] [id number] [place] [address] Apr, [place] [address] [place] [id number] [place] [address] Apr, [place] [address] [address] Apr, Type 2 diabetes mellitus with diabetic neuropathy, unspecified E11.40 ; Emphysema, unspecified J43.9 ; 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 ; Migraine without aura, not intractable, with status migrainosus G43.001 ; Gastro-esophageal reflux disease without esophagitis K21.9 ; CAD (coronary artery disease) I25.10 ; Hypertension I10 ; Hyperlipemia E78.5 ; Allergic rhinitis J30.9 ; Neuropathy G62.9 ; Anxiety associated with depression F41.8 and Injury of left hand S69.92XA [place] [address] [address] Apr, [address] [address] Apr, [address] [address] Apr, Type 2 diabetes mellitus with diabetic neuropathy, unspecified E11.40 ; Emphysema, unspecified J43.9 ; Essential (primary) hypertension I10 ; 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 [address] [place] [id number] [place] [address] Feb, Acute nasopharyngitis [common cold] J00 and Acute diarrhea R19.7 [place] [id number] [place] [address] Feb, Depression F32.[address] [address] Jan, Otitis media, right H66.91 [place] [address] [place] [id number] [place] [address] Jan, [place] [address] [place] [id number] [place] [address] Jan, Type 2 diabetes mellitus with diabetic neuropathy, unspecified E11.[address] [address] Jan, [place] [address] [address] Jan, Hyperlipemia E78.5 [place] [address] [address] Jan, Type 2 diabetes mellitus with diabetic neuropathy, unspecified E11.40 ; Emphysema, unspecified J43.9 ; CAD (coronary artery disease) I25.10 and Hyperlipemia E78.[address] [address] Dec, Allergic rhinitis J30.9 and Fungal infection B49 [address] [address] Dec, [place] [id number] [place] [address] Dec, [place] [id number] [place] [address] Dec, Chest pain R07.9 ; CAD (coronary artery disease) I25.10 ; Hypertension I10 and Hyperlipemia E78.[address] [address] 08 Dec, 2014 Pain in thoracic spine M54.6 ; Gastro-esophageal reflux disease without esophagitis K21.9 ; Emphysema, unspecified J43.9 and Migraine without aura, not intractable, with status migrainosus G43.[address] [address] Dec, [facility] [address] [place] [id number] [address] Nov, Influenza vaccine administered V04.81 [facility] [address] [place] [id number] [address] Nov, [facility] [id number] [address] Sep, [facility] [id number] [address] Sep, [place] [id number] [place] [address] Sep, CAD (coronary artery disease) 414.00 and Diabetes type 2, uncontrolled 250.02 [place] [address] [place] [id number] [address] Sep, CAD (coronary artery disease) 414.00 ; Diabetes type 2, uncontrolled 250.02 and Migraine 346.90 IMMUNIZATIONS No Known Immunizations SOCIAL HISTORY Never Assessed REASON FOR VISIT Hydrocodone 11/24- PLAN OF CARE VITAL SIGNS MEDICATIONS Medication Instructions Dosage Frequency Start Date End Date Duration Status Lyrica 100 mg Orally Three times a day 1 capsule 8h Dec, 28 days Active Hydrocodone-Acetaminophen 7.5-325 MG Orally every 6 hours as needed 1 tablet as needed Nov, 28 days Active RESULTS No Results PROCEDURES No Known procedures INSTRUCTIONS MEDICATIONS ADMINISTERED No Known Medications MEDICAL (GENERAL) HISTORY Type Description Date Medical History COPD Medical History Type 2 Diabetes Medical History HTN Medical History Cardiac stents July 2010 post [place]-stent to [place] Medical History Rheumatoid Arthritis Medical History 04/2016---Echo- 60%//mild hypertrophy at the base of the septum, mild mitral regurg/ mild tricuspid regurg. PAP about 10-15 mmHg Medical History 04/2016------Normal Lexiscan Medical History Elevated white blood cell count, unspecified Medical History Atherosclerotic heart disease of minto coronary artery without angina pectoris Medical History [...]
--- OUTSIDE RECORDS SUMMARY | 2018-08-23 16:43 | XMS REPORT ---
Author Author PANCHOROBCLAU Organization [facility] Address [address] [place] [address] Care Team Providers Care Interior Design Director Name Role Phone DELEONROB MoranELE Unavailable PROBLEMS Type Condition ICD9-CM Code [id number] Code Onset Dates Condition Status SNOMED Code Problem Neuropathy G62.9 Active 470201001 Problem Other hammer toe(s) (acquired), right foot M20.41 Active 890931156 Problem Other hammer toe(s) (acquired), left foot M20.42 Active 04841932 Problem Intractable migraine without status migrainosus, unspecified migraine type G43.919 Active 215618937 Problem Gastro-esophageal reflux disease without esophagitis K21.9 Active 064167914 Problem Elevated white blood cell count, unspecified D72.829 Active 664661448 Problem Hypertension I10 Active 89004428 Problem Hyperlipemia E78.5 Active 32652614 Problem Hammer toe of left foot M20.42 Active 532576913 Problem Tobacco abuse Z72.0 Active 068469270 Problem Other chronic pain G89.29 Active 02787166 Problem Atherosclerotic heart disease of [place] coronary artery 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.10 Active 903344525565497 Problem Allergic rhinitis J30.9 Active 90408715 Problem Anxiety associated with depression F41.8 Active 207926672 Problem Emphysema, unspecified J43.9 Active 27318224 Problem Type 2 diabetes mellitus with diabetic neuropathy, unspecified E11.40 Active 17659561 Problem Rheumatoid arthritis involving multiple sites with positive rheumatoid factor M05.79 Active 388310113 Problem Primary insomnia F51.01 Active 7002357 Problem Chronic pain G89.29 Active 25069026 Problem Periodontitis K05.30 Active 23182704 Problem Vitamin D deficiency E55.9 Active 30170255 Problem OAB (overactive bladder) N32.81 Active 068734812 Problem Dependence on nocturnal oxygen therapy Z99.81 Active [id number] ALLERGIES No Information ENCOUNTERS Encounter Location Date Diagnosis [place] [id number] [place] [id number] [place] [address] Jan, [place] [address] [address] Dec, [facility] [address] [address] Nov, Type 2 diabetes mellitus with diabetic neuropathy, unspecified E11.40 ; Neuropathy G62.9 ; Hypertension I10 ; Dependence on nocturnal oxygen therapy Z99.81 ; Emphysema, unspecified J43.9 and Encounter for immunization Z23 [place] [address] [address] 07 Nov, 2017 Chronic pain G89.29 [place] [address] [address] 06 Nov, 2017 Chronic pain G89.29 [facility] [address] [address] Oct, Dysuria R30.0 ; Intractable migraine without status migrainosus, unspecified migraine type G43.919 and Back pain at L4-L5 level M54.5 [place] [address] [address] Oct, Orthostatic hypotension I95.1 [place] [address] [address] Oct, Localized swelling of both lower legs R22.43 ; Onychomycosis B35.1 and Type 2 diabetes mellitus with diabetic neuropathy, unspecified E11.40 [place] [address] [address] Oct, [place] [address] [address] Oct, Elevated white blood cell count, unspecified D72.829 [place] [address] [address] Oct, Elevated white blood cell count, unspecified D72.829 [facility] [id number] [place] [address] Oct, Chronic pain G89.29 [place] [address] [address] [id number] [place] [address] Oct, [facility] [address] [address] [id number] [place] [address] Oct, [place] [address] [address] [id number] [place] [address] Oct, Orthostatic hypotension I95.1 ; Dizziness R42 and Neuropathy G62.9 [facility] [id number] [place] [address] Oct, Dizziness R42 ; Low back pain M54.5 ; Other chronic pain G89.29 ; Nausea R11.0 and Orthostatic hypotension I95.1 [place] [address] [address] [id number] [place] [address] Sep, Rheumatoid arthritis involving multiple sites with positive rheumatoid factor M05.79 and Tobacco abuse Z72.0 [place] [address] [address] [id number] [place] [address] Sep, Chronic pain G89.29 [place] [address] [address] [id number] [place] [address] Aug, Type 2 diabetes mellitus with diabetic neuropathy, unspecified E11.40 ; Hypertension I10 ; Hyperlipemia E78.5 ; Gastro-esophageal reflux disease without esophagitis K21.9 ; Emphysema, unspecified J43.9 ; Anxiety associated with depression F41.8 ; Vitamin D deficiency E55.9 ; Chronic pain G89.29 ; Tobacco abuse Z72.0 ; Overweight (BMI 25.0-29.9) E66.3 ; Atherosclerotic heart disease of [place] coronary artery 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.10 ; OAB (overactive bladder) N32.81 and Primary insomnia F51.01 [place] [address] [id number] [address] July, [facility] [id number] [place] [address] July, [facility] [id number] [place] [address] July, Chronic pain G89.29 [facility] [id number] [place] [address] July, [facility] [id number] [place] [address] July, Onychomycosis B35.1 ; Hammer toe of left foot M20.42 and Type 2 diabetes mellitus with diabetic neuropathy, unspecified E11.40 [facility] [id number] [place] [address] July, [facility] [id number] [place] [address] July, Chronic pain G89.29 and Neuropathy G62.9 [facility] [id number] [address] July, [facility] [id number] [place] [address] July, [facility] [address] [address] Jun, [facility] [id number] [place] [address] Jun, Chronic pain G89.29 [facility] [address] [address] Jun, [facility] [address] [address] [id number] [place] [address] Jun, [facility] [address] [address] Jun, Visit for TB skin test Z11.1 [place] [address] [address] 16 Jun, 2017 [place] [address] [address] [id number] [place] [address] Jun, [place] [address] [address] [id number] [place] [address] Jun, Tobacco abuse Z72.0 and Rheumatoid arthritis involving multiple sites with positive rheumatoid factor M05.79 [place] [address] [address] [id number] [place] [address] Jun, Anxiety F41.9 ; Acute non-recurrent maxillary sinusitis J01.00 and Chronic pain G89.29 [place] [address] [address] [id number] [place] [address] Jun, [place] [address] [place] [address] [id number] [place] [address] May, Rheumatoid arthritis involving multiple sites with positive rheumatoid factor M05.79 [place] [address] [address] [id number] [place] [address] May, Chronic pain G89.29 [place] [address] [address] [id number] [place] [address] May, [place] [address] [address] [id number] [place] [address] May, [place] [id number] [place] [address] May, [place] [id number] [place] [address] May, Type 2 diabetes mellitus with diabetic neuropathy, unspecified E11.40 [place] [id number] [place] [address] May, Type 2 diabetes mellitus with diabetic neuropathy, unspecified E11.40 ; Emphysema, unspecified J43.9 ; Hypertension I10 ; Hyperlipemia E78.5 ; Vitamin D deficiency E55.9 ; Right medial knee pain M25.561 ; Controlled substance agreement signed Z79.899 ; Chronic pain G89.29 ; Allergic rhinitis J30.9 ; Anxiety associated with depression F41.8 ; Neuropathy G62.9 and Gastro- esophageal reflux disease without esophagitis K21.9 [place] [address] [place] [id number] [place] [address] Apr, Chronic pain G89.29 [place] [address] [address] 16 Apr, 2017 Other hammer toe(s) (acquired), left foot M20.42 ; Other hammer toe(s) (acquired), right foot M20.41 ; Type 2 diabetes mellitus with diabetic neuropathy, unspecified E11.40 and Onychomycosis B35.1 [place] [address] [address] 2017 Gastro-esophageal reflux disease without esophagitis K21.9 [place] [address] [place] [id number] [place] [address] Apr, Controlled substance agreement signed Z79.899 [place] [address] [address] Mar, Chronic pain G89.29 [place] [address] [place] [id number] [place] [address] Mar, Emphysema, unspecified J43.9 and Type 2 diabetes mellitus with diabetic neuropathy, unspecified E11.40 [facility] [address] [address] [id number] [place] [address] Mar, Dysuria R30.0 ; Vaginal candidiasis B37.3 and Acute nonintractable headache, unspecified headache type R51 [place] [address] [place] [id number] [place] [address] Feb, Neuropathy G62.9 and Chronic pain G89.29 [place] [address] [address] Feb, Gastro-esophageal reflux disease without esophagitis K21.9 [facility] [address] [address] [id number] [place] [address] Feb, [facility] [address] [place] [id number] [place] [address] Feb, Rheumatoid arthritis involving multiple sites with positive rheumatoid factor M05.79 and COPD with acute exacerbation J44.1 [facility] [address] [place] [id number] [place] [address] Feb, Vaginal odor N89.8 ; Vaginal irritation N89.8 ; Candidal dermatitis B37.2 and Screening breast examination Z12.31 [place] [address] [address] [id number] [place] [address] Feb, [place] [address] [place] [address] [id number] [place] [address] Feb, [facility] [address] [place] [id number] [place] [address] Feb, [facility] [address] [place] [id number] [place] [address] Feb, COPD with exacerbation J44.1 ; Tobacco abuse counseling Z71.6 ; Tobacco abuse Z72.0 ; Rheumatoid arthritis involving multiple sites with positive rheumatoid factor M05.79 and Hyperlipemia E78.5 [facility] [address] [place] [address] [id number] [place] [address] Feb, [facility] [address] [id number] [place] [id number] Jan, [facility] [id number] [place] [address] Jan, Chronic pain G89.29 [facility] [address] [place] [address] [id number] [place] [id number] Jan, Dental examination Z01.20 [facility] [address] [address] Jan, Back pain of lumbar region with sciatica M54.40 [facility] [address] [address] [id number] [place] [address] 15 Jan, 2017 Acute bacterial conjunctivitis of both eyes H10.33 [place] [address] [address] [id number] [place] [address] 02 Jan, 2017 Chronic pain G89.29 [place] [address] [address] Dec, Type 2 diabetes mellitus with diabetic neuropathy, unspecified E11.40 ; Hypertension I10 ; Hyperlipemia E78.5 ; Gastro-esophageal reflux disease without esophagitis K21.9 ; Anxiety associated with depression F41.8 ; Allergic rhinitis J30.9 ; Neuropathy G62.9 and Dependence on nocturnal oxygen therapy Z99.81 [place] [address] [address] Dec, [place] [address] [address] Dec, [place] [address] [address] Dec, Encounter for immunization Z23 [place] [address] [address] 05 Dec, 2016 Type 2 diabetes mellitus with diabetic neuropathy, unspecified E11.40 and Chronic pain G89.29 [place] [address] [address] [id number] [place] [address] Nov, Gastro-esophageal reflux disease without esophagitis K21.9 [place] [address] [address] 11 Nov, 2016 Peripheral edema R60.9 and Chest pain in adult R07.9 [place] [address] [address] [id number] [place] [address] 07 Nov, 2016 Chronic pain G89.29 [place] [address] [place] [address] Oct, [facility] [address] [place] [address] [id number] [place] [address] Oct, [facility] [address] [address] [id number] [place] [address] 17 Oct, 2016 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 M05.731 [facility] [address] [address] 15 Oct, 2016 [facility] [id number] [place] [address] 14 Oct, 2016 Acute exacerbation of chronic obstructive pulmonary disease (COPD) J44.1 and Canker sore K12.0 [facility] [address] [id number] [place] [address] Oct, [facility] [address] [id number] [place] [address] Oct, [facility] [id number] [place] [address] Oct, Chronic pain G89.29 [facility] [address] [id number] Oct, Dental examination Z01.20 [facility] [id number] [place] [address] Oct, Dental examination Z01.20 and Periodontitis K05.30 [facility] [address] [id number] [place] [id number] Oct, Dental examination Z01.20 [facility] [id number] [place] [address] Sep, Abscess L02.91 [facility] [id number] [place] [address] Sep, Dental examination Z01.20 [facility] [id number] [place] [address] Sep, [facility] [address] [place] [id number] [id number] Sep, Dental examination Z01.20 and Dental caries K02.9 [place] [id number] [place] [address] Sep, Primary insomnia F51.01 and Anxiety associated with depression F41.8 [place] [address] [id number] [place] [address] Sep, 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 M05.731 [place] [id number] [place] [address] Sep, Chronic pain G89.29 [address] [place] [address] Sep, Type 2 diabetes mellitus with diabetic neuropathy, unspecified E11.40 ; Emphysema, unspecified J43.9 ; Gastro-esophageal reflux disease without esophagitis K21.9 ; Hypertension I10 ; Hyperlipemia E78.5 ; Anxiety associated with depression F41.8 ; Chronic pain G89.29 ; Vitamin D deficiency E55.9 and Primary insomnia F51.01 [address] [place] [address] 16 Aug, 2016 Anxiety associated with depression F41.8 [place] [id number] [place] [address] Aug, Chronic pain G89.29 and Neuropathy G62.9 [address] [place] [address] Aug, Type 2 diabetes mellitus with diabetic neuropathy, unspecified E11.40 ; Rheumatoid arthritis involving multiple sites with positive rheumatoid factor M05.79 ; Vitamin D deficiency E55.9 ; Anxiety associated with depression F41.8 and Primary insomnia F51.01 [address] [place] [address] July, Emphysema, unspecified J43.9 [place] [address] [address] [id number] [place] [address] July, Allergic rhinitis J30.9 [place] [address] [id number] [place] [address] July, Allergic rhinitis J30.9 ; Emphysema, unspecified J43.9 and 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 M05.731 [place] [address] [address] July, Neuropathy G62.9 and Chronic pain G89.29 [place] [address] [address] July, Rheumatoid arthritis involving multiple sites with positive rheumatoid factor M05.79 [place] [address] [address] Jun, [place] [address] [address] Jun, Neuropathy G62.9 and Chronic pain G89.29 [place] [address] [address] May, Neuropathy G62.9 and Chronic pain G89.29 [place] [address] [address] [id number] [place] [address] May, [place] [address] [address] May, [place] [address] [address] [id number] [place] [address] May, Type 2 diabetes mellitus with diabetic [...] with positive rheumatoid factor M05.732 [place] [address] [address] [id number] [place] [address] 14 Apr, 2016 Chronic pain G89.29 [place] [address] [address] Mar, Gastro-esophageal reflux disease without esophagitis K21.9 [place] [address] [address] Mar, [place] [address] [address] Mar, 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 M05.731 [place] [address] [address] Mar, Chronic pain G89.29 [place] [address] [address] Feb, Hyperlipemia E78.5 [place] [address] [address] Feb, Abnormal breath sounds R06.89 ; COPD with exacerbation J44.1 and Fatigue, unspecified type R53.83 [place] [id number] [place] [address] Feb, Neuropathy G62.9 ; Abnormal lung sounds R09.89 and Bronchitis J40 [facility] [address] [address] Feb, Bronchitis J40 [place] [address] [address] Feb, Chronic pain G89.29 [place] [address] [address] Jan, Type 2 diabetes mellitus with diabetic neuropathy, unspecified E11.40 ; 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 M05.731 and Hyperlipemia E78.5 [place] [id number] [place] [address] Jan, 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 M05.731 [place] [address] [id number] [place] [address] Jan, De Quervain's disease (radial styloid tenosynovitis) M65.4 ; Closed nondisplaced fracture of scaphoid of left wrist, unspecified portion of scaphoid, initial encounter S62.002A and Peripheral tear of medial meniscus of left knee, unspecified whether old or current tear, initial encounter S83.222A [place] [id number] [place] [address] Jan, Hypertension I10 ; Type 2 diabetes mellitus with diabetic neuropathy, unspecified E11.40 ; Hyperlipemia E78.5 ; Allergic rhinitis J30.9 ; Neuropathy G62.9 ; 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 M05.731 ; Acute non-recurrent maxillary sinusitis J01.00 and Chronic pain G89.29 [place] [id number] [place] [address] Dec, [place] [id number] [place] [address] Dec, [place] [id number] [place] [address] Dec, Type 2 diabetes mellitus with diabetic neuropathy, unspecified E11.40 ; Emphysema, unspecified J43.9 ; Gastro-esophageal reflux disease without esophagitis K21.9 ; Hypertension I10 ; Hyperlipemia E78.5 ; 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 M05.731 ; Elevated white blood cell count, unspecified D72.829 ; Acute non- recurrent frontal sinusitis J01.10 and Chronic pain G89.29 [place] [address] [id number] [place] [address] Nov, [place] [id number] [place] [address] Nov, Elevated white blood cell count, unspecified D72.829 ; Encounter for immunization Z23 ; 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 M05.731 ; Injury of left hand S69.92XA ; Pain in left knee M25.562 and Other chronic pain G89.29 [place] [id number] [place] [address] Nov, [place] [id number] [place] [address] Nov, [place] [id number] [place] [address] Oct, [place] [id number] [place] [address] Oct, Hyperlipemia E78.5 [place] [id number] [place] [address] Oct, [place] [id number] [place] [address] Oct, Type 2 diabetes mellitus with diabetic neuropathy, unspecified E11.40 ; Neuropathy G62.9 ; Hypertension I10 ; Chronic pain G89.29 and Hyperlipemia E78.5 [place] [id number] [place] [address] Oct, Emphysema, unspecified J43.9 and Rheumatoid arthritis of left wrist without organ or system involvement with positive rheumatoid factor M05.732 [facility] [id number] [place] [address] Sep, Chronic pain syndrome G89.4 [place] [id number] [place] [address] Sep, [facility] [id number] [place] [address] Sep, [facility] [id number] [place] [address] Sep, Closed nondisplaced fracture of scaphoid of left wrist, unspecified portion of scaphoid, initial encounter S62.002A [facility] [address] [address] [id number] [place] [phone] Sep, Type 2 diabetes mellitus with diabetic neuropathy, unspecified E11.40 ; Hypertension I10 ; Hyperlipemia E78.5 and Acute non-recurrent maxillary sinusitis J01.00 [place] [address] [id number] [place] [phone] Sep, [facility] [id number] [place] [phone] Sep, [facility] [address] [id number] [place] [phone] Sep, [facility] [id number] [place] [phone] Sep, [facility] [address] [id number] [place] [phone] Aug, Epigastric pain R10.13 and Right upper quadrant pain R10.11 [place] [facility] [id number] [place] [address] Aug, Closed nondisplaced fracture of scaphoid of left wrist, unspecified portion of scaphoid, initial encounter S62.002A [facility] [id number] [place] [address] Aug, [facility] [id number] [place] [address] Aug, [facility] [id number] [place] [address] Aug, Shortness of breath R06.02 ; Epigastric pain R10.13 and Injury of left lower arm, initial encounter S59.912A [place] [address] [address] Aug, Coronary artery disease involving [place] heart with angina pectoris, unspecified vessel or lesion type I25.119 ; Pulmonary emphysema, unspecified emphysema type J43.9 and Snoring R06.83 [place] [address] [address] Aug, [place] [address] [address] Aug, Emphysema, unspecified J43.9 ; Atherosclerotic heart disease of [place] coronary artery 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.10 and Hypertension I10 [place] [address] [address] July, [address] [address] July, Closed nondisplaced fracture of scaphoid of left wrist, unspecified portion of scaphoid, initial encounter S62.002A [place] [address] [address] July, [place] [id number] [place] [address] July, Type 2 diabetes mellitus with diabetic neuropathy, unspecified E11.40 ; Emphysema, unspecified J43.9 ; Atherosclerotic heart disease of [place] coronary artery 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.10 ; [...] and Hospital discharge follow-up Z09 [place] [address] [address] July, [facility] [address] [address] July, Type 2 diabetes mellitus with diabetic neuropathy, unspecified E11.40 [facility] [id number] [address] July, Type 2 diabetes mellitus with diabetic neuropathy, unspecified E11.40 and Rheumatoid arthritis of left wrist without organ or system involvement with positive rheumatoid factor M05.732 [facility] [address] [facility] [id number] [address] July, [facility] [address] [address] July, [facility] [address] [address] Jun, [facility] [address] [address] Jun, [facility] [address] [address] Jun, 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 [facility] [id number] [address] Jun, [facility] [address] [address] Jun, 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 [facility] [id number] [address] Jun, [facility] [id number] [address] Jun, [facility] [address] [address] Jun, Encounter for PPD test Z11.1 ; 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 M05.731 and Rheumatoid arthritis of left wrist without organ or system involvement with positive rheumatoid factor M05.732 [place] [id number] [place] [address] Jun, Type 2 diabetes mellitus with diabetic neuropathy, unspecified E11.40 [place] [id number] [place] [address] May, Type 2 diabetes mellitus with diabetic neuropathy, unspecified E11.40 ; Emphysema, unspecified J43.9 ; 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 M05.731 ; Rheumatoid arthritis of left wrist without organ or system involvement with positive rheumatoid factor M05.732 and Chronic pain G89.29 [place] [address] [address] May, [place] [id number] [place] [address] May, Swelling of hand joint M25.449 ; Ankle swelling M25.473 and Joint pain M25.50 [facility] [facility] [id number] [place] [address] May, Emphysema, unspecified J43.9 [place] [id number] [place] [address] May, Gastroenteritis K52.9 and Hypertension I10 [place] [id number] [place] [address] Apr, [place] [id number] [place] [address] Apr, [place] [id number] [place] [address] Apr, [place] [address] [address] Apr, Type 2 diabetes mellitus with diabetic neuropathy, unspecified E11.40 ; Emphysema, unspecified J43.9 ; Atherosclerotic heart disease of [place] coronary artery 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.10 ; Migraine without aura, not intractable, with status migrainosus G43.001 ; Gastro-esophageal reflux disease without esophagitis K21.9 ; CAD (coronary artery disease) I25.10 ; Hypertension I10 ; Hyperlipemia E78.5 ; Allergic rhinitis J30.9 ; Neuropathy G62.9 ; Anxiety associated with depression F41.8 and Injury of left hand S69.92XA [place] [address] [address] Apr, [address] [address] Apr, [address] [address] Apr, Type 2 diabetes mellitus with diabetic neuropathy, unspecified E11.40 ; Emphysema, unspecified J43.9 ; Essential (primary) hypertension I10 ; Atherosclerotic heart disease of [place] coronary artery 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.10 ; Gastro-esophageal reflux disease without esophagitis K21.9 ; CAD (coronary artery disease) I25.10 ; Hyperlipemia E78.5 ; Hypertension I10 ; History of solitary pulmonary nodule Z87.898 ; Allergic rhinitis J30.9 ; Chronic pain G89.29 and Depression with anxiety F41.[address] [address] Mar, [address] [address] Mar, Allergic rhinitis J30.9 ; URI (upper respiratory infection) J06.9 and Other viral agents as the cause of diseases classified elsewhere B97.89 [facility] [id number] [place] [address] Feb, Acute nasopharyngitis [common cold] J00 and Acute diarrhea R19.7 [place] [id number] [place] [address] Feb, Depression F32.[address] [address] Jan, Otitis media, right H66.91 [place] [id number] [place] [address] Jan, [place] [id number] [place] [address] Jan, Type 2 diabetes mellitus with diabetic neuropathy, unspecified E11.[address] [address] Jan, [place] [address] [address] Jan, Hyperlipemia E78.5 [place] [address] [address] Jan, Type 2 diabetes mellitus with diabetic neuropathy, unspecified E11.40 ; Emphysema, unspecified J43.9 ; CAD (coronary artery disease) I25.10 and Hyperlipemia E78.[address] [address] Dec, Allergic rhinitis J30.9 and Fungal infection B49 [address] [address] Dec, [place] [id number] [place] [address] Dec, [place] [id number] [place] [address] Dec, Chest pain R07.9 ; CAD (coronary artery disease) I25.10 ; Hypertension I10 and Hyperlipemia E78.[address] [address] 08 Dec, 2014 Pain in thoracic spine M54.6 ; Gastro-esophageal reflux disease without esophagitis K21.9 ; Emphysema, unspecified J43.9 and Migraine without aura, not intractable, with status migrainosus G43.[address] [address] Dec, [facility] [id number] [address] Nov, Influenza vaccine administered V04.81 [facility] [id number] [address] Nov, [facility] [address] [address] Sep, [facility] [address] [address] Sep, [place] [id number] [place] [address] Sep, CAD (coronary artery disease) 414.00 and Diabetes type 2, uncontrolled 250.02 [place] [address] [address] Sep, CAD (coronary artery disease) 414.00 ; Diabetes type 2, uncontrolled 250.02 and Migraine 346.90 IMMUNIZATIONS No Known Immunizations SOCIAL HISTORY Never Assessed REASON FOR VISIT Lab (walk-in) PLAN OF CARE VITAL SIGNS MEDICATIONS Unknown Medications RESULTS No Results PROCEDURES No Known procedures INSTRUCTIONS MEDICATIONS ADMINISTERED No Known Medications MEDICAL (GENERAL) HISTORY Type Description Date Medical History COPD Medical History Type 2 Diabetes Medical History HTN Medical History Cardiac stents July 2010 post SD-stent to LAD Medical History Rheumatoid Arthritis Medical History 04/2016---Echo- 60%//mild hypertrophy at the base of the septum, mild mitral regurg/ mild tricuspid regurg. 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
--- OUTSIDE RECORDS SUMMARY | 2018-08-23 16:44 | XMS REPORT ---
Author Author CURRY MOORE [facility] Address [address] [place] [address] Phone Unavailable Care Team Providers Care Wet Process Miller Name Role Phone CURRY MOORE Unavailable Unavailable PROBLEMS Type Condition ICD9-CM Code [id number] Code Onset Dates Condition Status SNOMED Code Problem Neuropathy G62.9 Active 298115215 Problem Other hammer toe(s) (acquired), right foot M20.41 Active 501676211 Problem Other hammer toe(s) (acquired), left foot M20.42 Active 07226499 Problem Intractable migraine without status migrainosus, unspecified migraine type G43.919 Active 949210133 Problem Gastro-esophageal reflux disease without esophagitis K21.9 Active 210998419 Problem Elevated white blood cell count, unspecified D72.829 Active 440354962 Problem Hypertension I10 Active 85899859 Problem Hyperlipemia E78.5 Active 99633290 Problem Hammer toe of left foot M20.42 Active 462135649 Problem Tobacco abuse Z72.0 Active 613503319 Problem Other chronic pain G89.29 Active 32166421 Problem Atherosclerotic heart disease of [place] coronary artery 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.10 Active 065848303371321 Problem Allergic rhinitis J30.9 Active 22276023 Problem Anxiety associated with depression F41.8 Active 435352775 Problem Emphysema, unspecified J43.9 Active 32371227 Problem Type 2 diabetes mellitus with diabetic neuropathy, unspecified E11.40 Active 41628820 Problem Rheumatoid arthritis involving multiple sites with positive rheumatoid factor M05.79 Active 819437753 Problem Primary insomnia F51.01 Active 2697761 Problem Chronic pain G89.29 Active 45360741 Problem Periodontitis K05.30 Active 67199252 Problem Vitamin D deficiency E55.9 Active 71528586 Problem OAB (overactive bladder) N32.81 Active 151053090 Problem Dependence on nocturnal oxygen therapy Z99.81 Active [id number] ALLERGIES Substance Reaction Event Type Date Status Sulfamethoxazole-Trimethoprim itching Drug Allergy Oct, Active Singulair dizziness Drug Allergy Oct, Active ENCOUNTERS Encounter Location Date Diagnosis [facility] [id number] [place] [address] Jan, [facility] [id number] [place] [address] Dec, [facility] [address] [address] Nov, Type 2 diabetes mellitus with diabetic neuropathy, unspecified E11.40 ; Neuropathy G62.9 ; Hypertension I10 ; Dependence on nocturnal oxygen therapy Z99.81 ; Emphysema, unspecified J43.9 and Encounter for immunization Z23 [facility] [id number] [place] [address] 07 Nov, 2017 Chronic pain G89.29 [place] [address] [address] 06 Nov, 2017 Chronic pain G89.29 [facility] [id number] [place] [address] Oct, Dysuria R30.0 ; Intractable migraine without status migrainosus, unspecified migraine type G43.919 and Back pain at L4-L5 level M54.5 [facility] [id number] [place] [address] Oct, Orthostatic hypotension I95.1 [facility] [id number] [place] [address] Oct, Localized swelling of both lower legs R22.43 ; Onychomycosis B35.1 and Type 2 diabetes mellitus with diabetic neuropathy, unspecified E11.40 [facility] [id number] [place] [address] Oct, [facility] [id number] [place] [address] Oct, Elevated white blood cell count, unspecified D72.829 [place] [address] [place] [address] 13 Oct, 2017 Elevated white blood cell count, unspecified D72.829 [facility] [id number] [place] [address] Oct, Chronic pain G89.29 [facility] [id number] [place] [address] Oct, [facility] [id number] [place] [address] Oct, [facility] [id number] [place] [address] Oct, Orthostatic hypotension I95.1 ; Dizziness R42 and Neuropathy G62.[address] [facility] [id number] [place] [address] Oct, Dizziness R42 ; Low back pain M54.5 ; Other chronic pain G89.29 ; Nausea R11.0 and Orthostatic hypotension I95.1 [facility] [id number] [place] [address] Sep, Rheumatoid arthritis involving multiple sites with positive rheumatoid factor M05.79 and Tobacco abuse Z72.0 [facility] [id number] [place] [address] Sep, Chronic pain G89.29 [facility] [id number] [place] [address] Aug, Type 2 diabetes mellitus with diabetic neuropathy, unspecified E11.40 ; Hypertension I10 ; Hyperlipemia E78.5 ; Gastro-esophageal reflux disease without esophagitis K21.9 ; Emphysema, unspecified J43.9 ; Anxiety associated with depression F41.8 ; Vitamin D deficiency E55.9 ; Chronic pain G89.29 ; Tobacco abuse Z72.0 ; Overweight (BMI 25.0-29.9) E66.3 ; Atherosclerotic heart disease of [place] coronary artery 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.10 ; OAB (overactive bladder) N32.81 and Primary insomnia F51.01 [facility] [address] [address] July, [facility] [id number] [place] [address] July, [facility] [id number] [place] [address] July, Chronic pain G89.29 [facility] [id number] [place] [address] July, [facility] [id number] [place] [address] July, Onychomycosis B35.1 ; Hammer toe of left foot M20.42 and Type 2 diabetes mellitus with diabetic neuropathy, unspecified E11.40 [facility] [id number] [place] [address] July, [facility] [id number] [place] [address] July, Chronic pain G89.29 and Neuropathy G62.9 [facility] [id number] [place] [address] July, [facility] [address] [address] July, [facility] [id number] [place] [address] Jun, [facility] [address] [address] Jun, Chronic pain G89.29 [facility] [id number] [place] [address] Jun, [facility] [address] [address] Jun, [facility] [id number] [place] [address] 17 Jun, 2017 Visit for TB skin test Z11.1 [facility] [id number] [place] [address] 16 Jun, 2017 [facility] [id number] [place] [address] Jun, [facility] [id number] [place] [address] Jun, Tobacco abuse Z72.0 and Rheumatoid arthritis involving multiple sites with positive rheumatoid factor M05.79 [facility] [id number] [place] [address] Jun, Anxiety F41.9 ; Acute non-recurrent maxillary sinusitis J01.00 and Chronic pain G89.29 [facility] [id number] [place] [address] Jun, [facility] [id number] [place] [address] May, Rheumatoid arthritis involving multiple sites with positive rheumatoid factor M05.79 [facility] [id number] [place] [address] May, Chronic pain G89.29 [facility] [id number] [place] [address] May, [facility] [id number] [place] [address] May, [facility] [address] [place] [address] May, [facility] [id number] [place] [address] May, Type 2 diabetes mellitus with diabetic neuropathy, unspecified E11.40 [facility] [address] [place] [address] May, Type 2 diabetes mellitus with diabetic neuropathy, unspecified E11.40 ; Emphysema, unspecified J43.9 ; Hypertension I10 ; Hyperlipemia E78.5 ; Vitamin D deficiency E55.9 ; Right medial knee pain M25.561 ; Controlled substance agreement signed Z79.899 ; Chronic pain G89.29 ; Allergic rhinitis J30.9 ; Anxiety associated with depression F41.8 ; Neuropathy G62.9 and Gastro- esophageal reflux disease without esophagitis K21.9 [facility] [id number] [place] [address] Apr, Chronic pain G89.29 [place] [address] [address] 16 Apr, 2017 Other hammer toe(s) (acquired), left foot M20.42 ; Other hammer toe(s) (acquired), right foot M20.41 ; Type 2 diabetes mellitus with diabetic neuropathy, unspecified E11.40 and Onychomycosis B35.1 [facility] [address] [address] 2017 Gastro-esophageal reflux disease without esophagitis K21.9 [facility] [id number] [place] [address] 02 Apr, 2017 Controlled substance agreement signed Z79.899 [facility] [id number] [place] [address] Mar, Chronic pain G89.29 [facility] [id number] [place] [address] Mar, Emphysema, unspecified J43.9 and Type 2 diabetes mellitus with diabetic neuropathy, unspecified E11.40 [facility] [id number] [place] [address] Mar, Dysuria R30.0 ; Vaginal candidiasis B37.3 and Acute nonintractable headache, unspecified headache type R51 [facility] [id number] [place] [address] Feb, Neuropathy G62.9 and Chronic pain G89.29 [facility] [id number] [place] [address] Feb, Gastro-esophageal reflux disease without esophagitis K21.9 [facility] [id number] [place] [address] Feb, [facility] [id number] [place] [address] Feb, Rheumatoid arthritis involving multiple sites with positive rheumatoid factor M05.79 and COPD with acute exacerbation J44.1 [facility] [id number] [place] [address] Feb, Vaginal odor N89.8 ; Vaginal irritation N89.8 ; Candidal dermatitis B37.2 and Screening breast examination Z12.31 [place] [address] [address] Feb, [facility] [address] [address] Feb, [facility] [id number] [place] [address] Feb, [place] [address] [address] Feb, COPD with exacerbation J44.1 ; Tobacco abuse counseling Z71.6 ; Tobacco abuse Z72.0 ; Rheumatoid arthritis involving multiple sites with positive rheumatoid factor M05.79 and Hyperlipemia E78.5 [facility] [id number] [place] [address] Feb, [facility] [id number] [place] [id number] Jan, [facility] [id number] [place] [address] Jan, Chronic pain G89.29 [facility] [id number] [place] [id number] Jan, Dental examination Z01.20 [facility] [id number] [place] [address] 19 Jan, 2017 Back pain of lumbar region with sciatica M54.40 [facility] [id number] [place] [address] 15 Jan, 2017 Acute bacterial conjunctivitis of both eyes H10.33 [place] [address] [address] 02 Jan, 2017 Chronic pain G89.29 [place] [address] [address] 31 Dec, 2016 Type 2 diabetes mellitus with diabetic neuropathy, unspecified E11.40 ; Hypertension I10 ; Hyperlipemia E78.5 ; Gastro-esophageal reflux disease without esophagitis K21.9 ; Anxiety associated with depression F41.8 ; Allergic rhinitis J30.9 ; Neuropathy G62.9 and Dependence on nocturnal oxygen therapy Z99.81 [place] [address] [address] Dec, [facility] [facility] [address] [address] Dec, [facility] [address] [address] 09 Dec, 2016 Encounter for immunization Z23 [facility] [address] [address] 05 Dec, 2016 Type 2 diabetes mellitus with diabetic neuropathy, unspecified E11.40 and Chronic pain G89.29 [facility] [id number] [place] [address] 11 Nov, 2016 Gastro-esophageal reflux disease without esophagitis K21.9 [facility] [facility] [address] [address] 11 Nov, 2016 Peripheral edema R60.9 and Chest pain in adult R07.9 [facility] [address] [address] Nov, Chronic pain G89.29 [facility] [id number] [place] [address] Oct, [facility] [id number] [place] [address] Oct, [facility] [id number] [place] [address] Oct, 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 M05.731 [facility] [id number] [place] [address] 15 Oct, 2016 [facility] [address] [address] Oct, Acute exacerbation of chronic obstructive pulmonary disease (COPD) J44.1 and Canker sore K12.0 [facility] [id number] [place] [address] Oct, [facility] [id number] [place] [address] Oct, [facility] [id number] [place] [address] Oct, Chronic pain G89.29 [facility] [id number] [place] [id number] Oct, Dental examination Z01.20 [facility] [id number] [place] [address] Oct, Dental examination Z01.20 and Periodontitis K05.30 [facility] [id number] [place] [id number] Oct, Dental examination Z01.20 [facility] [id number] [place] [address] Sep, Abscess L02.91 [facility] [id number] [place] [address] Sep, Dental examination Z01.20 [facility] [address] [place] [address] Sep, [facility] [address] [id number] Sep, Dental examination Z01.20 and Dental caries K02.9 [facility] [address], [place] [address] Sep, Primary insomnia F51.01 and Anxiety associated with depression F41.8 [facility] [address] [place] [address] Sep, 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 M05.731 [facility] [address] [place] [address] Sep, Chronic pain G89.29 [facility] [address] [place] [address] Sep, Type 2 diabetes mellitus with diabetic neuropathy, unspecified E11.40 ; Emphysema, unspecified J43.9 ; Gastro-esophageal reflux disease without esophagitis K21.9 ; Hypertension I10 ; Hyperlipemia E78.5 ; Anxiety associated with depression F41.8 ; Chronic pain G89.29 ; Vitamin D deficiency E55.9 and Primary insomnia F51.01 [facility] [address] [address] 16 Aug, 2016 Anxiety associated with depression F41.8 [facility] [address] [place] [address] 13 Aug, 2016 Chronic pain G89.29 and Neuropathy G62.9 [facility] [address] [place] [address] Aug, Type 2 diabetes mellitus with diabetic neuropathy, unspecified E11.40 ; Rheumatoid arthritis involving multiple sites with positive rheumatoid factor M05.79 ; Vitamin D deficiency E55.9 ; Anxiety associated with depression F41.8 and Primary insomnia F51.01 [facility] [id number] [place] [address] July, Emphysema, unspecified J43.9 [facility] [address] [address] July, Allergic rhinitis J30.9 [facility] [address] [place] [address] July, Allergic rhinitis J30.9 ; Emphysema, unspecified J43.9 and 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 M05.731 [facility] [address] [place] [address] July, Neuropathy G62.9 and Chronic pain G89.29 [facility] [address] [place] [address] July, Rheumatoid arthritis involving multiple sites with positive rheumatoid factor M05.79 [facility] [address] [place] [address] Jun, [facility] [address] [place] [address] Jun, Neuropathy G62.9 and Chronic pain G89.29 [facility] [address] [place] [address] May, Neuropathy G62.9 and Chronic pain G89.29 [facility] [address] [place] [address] May, [facility] [address] [place] [address] May, [facility] [address] [place] [address] May, Type 2 diabetes mellitus with diabetic [...] system involvement with positive rheumatoid factor M05.732 [facility] [address] [address] 14 Apr, 2016 Chronic pain G89.29 [facility] [facility] [address] [address] Mar, Gastro-esophageal reflux disease without esophagitis K21.9 [facility] [address] [address] Mar, [facility] [address] [address] Mar, 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 M05.731 [facility] [address] [place] [address] Mar, Chronic pain G89.29 [facility] [address] [address] Feb, Hyperlipemia E78.5 [facility] [address] [address] Feb, Abnormal breath sounds R06.89 ; COPD with exacerbation J44.1 and Fatigue, unspecified type R53.83 [facility] [address] [place] [address] Feb, Neuropathy G62.9 ; Abnormal lung sounds R09.89 and Bronchitis J[address] [facility] [id number] [place] [address] Feb, Bronchitis J40 [facility] [facility] [address] [address] Feb, Chronic pain G89.29 [facility] [address] [place] [address] Jan, Type 2 diabetes mellitus with diabetic neuropathy, unspecified E11.40 ; 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 M05.731 and Hyperlipemia E78.5 [facility] [facility] [address] [place] [address] Jan, 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 M05.731 [facility] [address] [place] [address] Jan, De Quervain's disease (radial styloid tenosynovitis) M65.4 ; Closed nondisplaced fracture of scaphoid of left wrist, unspecified portion of scaphoid, initial encounter S62.002A and Peripheral tear of medial meniscus of left knee, unspecified whether old or current tear, initial encounter S83.222A [facility] [address] [place] [address] Jan, Hypertension I10 ; Type 2 diabetes mellitus with diabetic neuropathy, unspecified E11.40 ; Hyperlipemia E78.5 ; Allergic rhinitis J30.9 ; Neuropathy G62.9 ; 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 M05.731 ; Acute non-recurrent maxillary sinusitis J01.00 and Chronic pain G89.29 [facility] [address] [place] [address] Dec, [facility] [address] [place] [address] Dec, [facility] [address] [place] [address] Dec, Type 2 diabetes mellitus with diabetic neuropathy, unspecified E11.40 ; Emphysema, unspecified J43.9 ; Gastro-esophageal reflux disease without esophagitis K21.9 ; Hypertension I10 ; Hyperlipemia E78.5 ; 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 M05.731 ; Elevated white blood cell count, unspecified D72.829 ; Acute non- recurrent frontal sinusitis J01.10 and Chronic pain G89.29 [facility] [address] [address] Nov, [facility] [id number] [place] [address] Nov, Elevated white blood cell count, unspecified D72.829 ; Encounter for immunization Z23 ; 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 M05.731 ; Injury of left hand S69.92XA ; Pain in left knee M25.562 and Other chronic pain G89.29 [facility] [address] [address] Nov, [facility] [facility] [address] [address] Nov, [facility] [facility] [address] [address] Oct, [facility] [facility] [address] [address] Oct, Hyperlipemia E78.5 [facility] [facility] [address] [address] Oct, [facility] [address] [address] Oct, Type 2 diabetes mellitus with diabetic neuropathy, unspecified E11.40 ; Neuropathy G62.9 ; Hypertension I10 ; Chronic pain G89.29 and Hyperlipemia E78.5 [facility] [facility] [address] [address] Oct, Emphysema, unspecified J43.9 and Rheumatoid arthritis of left wrist without organ or system involvement with positive rheumatoid factor M05.732 [facility] [id number] [place] [address] Sep, Chronic pain syndrome G89.4 [place] [address] [place] [address] Sep, [facility] [id number] [place] [address] Sep, [facility] [address] [address] Sep, Closed nondisplaced fracture of scaphoid of left wrist, unspecified portion of scaphoid, initial encounter S62.002A [facility] [address] [place] [address] Sep, Type 2 diabetes mellitus with diabetic neuropathy, unspecified E11.40 ; Hypertension I10 ; Hyperlipemia E78.5 and Acute non-recurrent maxillary sinusitis J01.00 [facility] [address] [place] [address] Sep, [facility] [id number] [place] [address] Sep, [facility] [address] [place] [address] Sep, [facility] [id number] [place] [address] Sep, [facility] [address] [place] [address] Aug, Epigastric pain R10.13 and Right upper quadrant pain R10.11 [facility] [address] [place] [address] Aug, Closed nondisplaced fracture of scaphoid of left wrist, unspecified portion of scaphoid, initial encounter S62.002A [facility] [address] [address] Aug, [facility] [address] [place] [address] Aug, [facility] [address] [place] [address] Aug, Shortness of breath R06.02 ; Epigastric pain R10.13 and Injury of left lower arm, initial encounter S59.912A [facility] [id number] [place] [address] Aug, Coronary artery disease involving [place] heart with angina pectoris, unspecified vessel or lesion type I25.119 ; Pulmonary emphysema, unspecified emphysema type J43.9 and Snoring R06.83 [facility] [id number] [place] [address] Aug, [facility] [id number] [place] [address] Aug, Emphysema, unspecified J43.9 ; Atherosclerotic heart disease of [place] coronary artery 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.10 and Hypertension I10 [facility] [id number] [place] [address] July, [facility] [id number] [place] [address] July, Closed nondisplaced fracture of scaphoid of left wrist, unspecified portion of scaphoid, initial encounter S62.002A [facility] [address] [address] July, [facility] [id number] [place] [address] July, Type 2 diabetes mellitus with diabetic neuropathy, unspecified E11.40 ; Emphysema, unspecified J43.9 ; Atherosclerotic heart disease of [place] coronary artery 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.10 ; [...] agents L24.89 and Hospital discharge follow-up Z09 [facility] [address] [address] July, [facility] [address] [address] July, Type 2 diabetes mellitus with diabetic neuropathy, unspecified E11.40 [facility] [address] [address] July, Type 2 diabetes mellitus with diabetic neuropathy, unspecified E11.40 and Rheumatoid arthritis of left wrist without organ or system involvement with positive rheumatoid factor M05.732 [facility] [address] [place] [address] July, [facility] [id number] [place] [address] July, [facility] [id number] [place] [address] Jun, [facility] [address] [address] Jun, [facility] [address] [place] [address] Jun, 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 [facility] [address], [place] [address] Jun, [facility] [address] [address] Jun, 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 [facility] [address] [place] [address] Jun, [facility] [address] [address] Jun, [facility] [address] [address] Jun, Encounter for PPD test Z11.1 ; 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 M05.731 and Rheumatoid arthritis of left wrist without organ or system involvement with positive rheumatoid factor M05.732 [facility] [id number] [place] [address] Jun, Type 2 diabetes mellitus with diabetic neuropathy, unspecified E11.40 [facility] [id number] [place] [address] May, Type 2 diabetes mellitus with diabetic neuropathy, unspecified E11.40 ; Emphysema, unspecified J43.9 ; 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 M05.731 ; Rheumatoid arthritis of left wrist without organ or system involvement with positive rheumatoid factor M05.732 and Chronic pain G89.29 [facility] [id number] [place] [address] May, [facility] [address] [address] May, Swelling of hand joint M25.449 ; Ankle swelling M25.473 and Joint pain M25.50 [facility] [id number] [place] [address] May, Emphysema, unspecified J43.9 [facility] [id number] [place] [address] May, Gastroenteritis K52.9 and Hypertension I10 [facility] [id number] [place] [address] Apr, [facility] [id number] [place] [address] Apr, [facility] [id number] [place] [address] Apr, [facility] [id number] [place] [address] Apr, Type 2 diabetes mellitus with diabetic neuropathy, unspecified E11.40 ; Emphysema, unspecified J43.9 ; Atherosclerotic heart disease of [place] coronary artery 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.10 ; Migraine without aura, not intractable, with status migrainosus G43.001 ; Gastro-esophageal reflux disease without esophagitis K21.9 ; CAD (coronary artery disease) I25.10 ; Hypertension I10 ; Hyperlipemia E78.5 ; Allergic rhinitis J30.9 ; Neuropathy G62.9 ; Anxiety associated with depression F41.8 and Injury of left hand S69.92XA [address] [address] Apr, [address] [address] Apr, [address] [address] Apr, Type 2 diabetes mellitus with diabetic neuropathy, unspecified E11.40 ; Emphysema, unspecified J43.9 ; Essential (primary) hypertension I10 ; Atherosclerotic heart disease of [place] coronary artery 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.10 ; Gastro-esophageal reflux disease without esophagitis K21.9 ; CAD (coronary artery disease) I25.10 ; Hyperlipemia E78.5 ; Hypertension I10 ; History of solitary pulmonary nodule Z87.898 ; Allergic rhinitis J30.9 ; Chronic pain G89.29 and Depression with anxiety F41.[address] [address] Mar, [address] [address] Mar, Allergic rhinitis J30.9 ; URI (upper respiratory infection) J06.9 and Other viral agents as the cause of diseases classified elsewhere B97.[address] [facility] [address] [place] [address] Feb, Acute nasopharyngitis [common cold] J00 and Acute diarrhea R19.[address] [address] Feb, Depression F32.[id number] [place] [address] Jan, Otitis media, right H66.91 [facility] [id number] [place] [address] Jan, [facility] [id number] [place] [address] Jan, Type 2 diabetes mellitus with diabetic neuropathy, unspecified E11.40 [facility] [id number] [place] [address] Jan, [facility] [address] [address] Jan, Hyperlipemia E78.5 [facility] [id number] [place] [address] Jan, Type 2 diabetes mellitus with diabetic neuropathy, unspecified E11.40 ; Emphysema, unspecified J43.9 ; CAD (coronary artery disease) I25.10 and Hyperlipemia E78.5 [facility] [id number] [place] [address] Dec, Allergic rhinitis J30.9 and Fungal infection B49 [facility] [id number] [place] [address] Dec, [facility] [id number] [place] [address] Dec, [facility] [id number] [place] [address] Dec, Chest pain R07.9 ; CAD (coronary artery disease) I25.10 ; Hypertension I10 and Hyperlipemia E78.5 [facility] [id number] [place] [address] 08 Dec, 2014 Pain in thoracic spine M54.6 ; Gastro-esophageal reflux disease without esophagitis K21.9 ; Emphysema, unspecified J43.9 and Migraine without aura, not intractable, with status migrainosus G43.001 [facility] [id number] [address] Dec, [facility] [address] [place] [address] Nov, Influenza vaccine administered V04.81 [facility] [address] [place] [address] Nov, [facility] [address] [place] [address] Sep, [facility] [address] [place] [address] Sep, [facility] [address] [place] [address] Sep, CAD (coronary artery disease) 414.00 and Diabetes type 2, uncontrolled 250.02 [facility] [address] [place] [address] Sep, CAD (coronary artery disease) 414.00 ; Diabetes type 2, uncontrolled 250.02 and Migraine 346.90 IMMUNIZATIONS Vaccine Route Administration Date Status TORADOL (IM) 60 MG/2ML (UP TO 15 MG) IM Intramuscular Nov 13, 2017 Administered SOCIAL HISTORY Never Assessed REASON FOR VISIT UTI symptoms-pain in lower back with itching and burning when urinating. The pa tient has also been having bad headaches.--ARBEN Bernal PLAN OF CARE Activity Details Follow Up prn Reason: VITAL SIGNS Height 66 in 2017-11-13 Weight 192.2 lbs 2017-11-13 Temperature 98.2 degrees Fahrenheit 2017-11-13 Heart Rate 84 bpm 2017-11-13 Respiratory Rate 20 2017-11-13 BMI 31.02 kg/m2 2017-11-13 Blood pressure systolic 106 mmHg 2017-11-13 Blood pressure diastolic 58 mmHg 2017-11-13 MEDICATIONS Medication Instructions Dosage Frequency Start Date End Date Duration Status Fish Oil 1200 MG Orally Once a day 1 capsule 24h Active Victoza 18 MG/3ML INJECT 1.8 MG SUBCUTANEOUSLY ONCE DAILY 30 Active Protonix 40 mg Orally Once a day 1 tablet 24h 90 Active Citalopram Hydrobromide 20 MG TAKE ONE TABLET BY MOUTH ONCE DAILY 30 Active Aspirin EC Low Dose 81 MG TAKE ONE TABLET BY MOUTH ONCE DAILY 90 Active Aleve 220 MG Orally every 12 hrs 1 tablet 12h Active Glucocard Expression Test - In Vitro 4 times a 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 test blood sugar May, Active Lyrica 100 mg Orally Three times a day 1 capsule 8h Dec, 28 days Active Easy Touch Pen [place] 32G X 4 MM sq 4 times a day as directed 6h Sep, Active Sucralfate 1 GM TAKE ONE TABLET BY MOUTH EVERY 6 HOURS Active Nicotine 21 MG/24HR Transdermal Once a day 1 patch to skin 24h Feb, Active Quad Cane as directed May, Active Oxygen Active Folic Acid 1 MG TAKE ONE TABLET BY MOUTH ONCE DAILY 90 Active Blood Glucose Monitor System w/Device as directed July, Active Symbicort 160-4.5 MCG/ACT INHALE 2 PUFFS BY MOUTH TWICE DAILY. (NEED TO MAKE AN APPOINTMENT FOR REFILLS) 30 Active Hydroxychloroquine Sulfate 200 MG TAKE ONE TABLET BY MOUTH ONCE DAILY WITH FOOD OR MILK 90 Active Atorvastatin Calcium 10 MG TAKE ONE TABLET BY MOUTH ONCE DAILY 30 Active Albuterol Sulfate (2.5 MG/3ML) 0.083% Inhalation Three times a day 3 ml 8h Active Hydrocodone-Acetaminophen 7.5-325 MG Orally every 6 hours as needed 1 tablet as needed Oct, 28 days Active Baclofen 10 MG TAKE ONE TABLET BY MOUTH THREE TIMES DAILY WITH FOOD OR MILK 90 Active Cetirizine HCl 10 Orally Once a day TAKE 1 TABLET BY MOUTH DAILY 24h Active HydrOXYzine HCl 25 MG Orally every 8 hrs 1 tablet as needed 8h 30 Active Depend Adjustable Underwear Lg 1 as directed 3 times a day use one depends three times per day as needed 8h May, Active Ondansetron HCl 4 MG Orally Twice a day 1 tablet 12h Oct, 03 days Active Meclizine HCl 25 MG Orally Once a day 1 tablet as needed 24h Oct, 03 days Not-Taking Trazodone HCl 50 MG TAKE ONE TABLET BY MOUTH ONCE DAILY AT BEDTIME NEEDED 30 Active Metformin HCl 1000 MG TAKE ONE TABLET BY MOUTH TWICE DAILY WITH MEALS 30 Active Lisinopril 5 MG Orally Once a day 1 tablet 24h Oct, Active Ventolin HFA 108 (90 Base) MCG/ACT INHALE TWO PUFFS BY MOUTH EVERY 4 HOURS NEEDED (MUST HAVE APPOINTMENT FOR REFILL) 17 Active Methotrexate 2.5 MG TAKE 10 TABLETS BY MOUTH ONCE WEEKLY 84 Active Metoprolol Tartrate 25 MG Orally Twice a day TAKE ONE half TABLET BY MOUTH TWICE DAILY 12h 30 days Active Qnasl 80 MCG/ACT USE TWO SPRAYS IN EACH NOSTRIL ONCE DAILY 30 Active RESULTS Name Result Date Reference Range UA LONG DIP (IN HOUSE) 2017-11-13 Lot # [id number] Exp date 2018-07-17 Clarity clear Color yellow Odor none GLU negative LING negative KET negative SG 1.010 BLO negative pH 6.5 Protein negative URO 0.2 NIT negative KENNEDI negative Lot # [id number] Exp date Feb 2018 PROCEDURES Procedure Date Ordered Result Body Site URINALYSIS, AUTO, W/O SCOPE Nov 13, 2017 THER/PROPH/DIAG INJ, SC/IM Nov 13, 2017 TORADOL (IM) 60 MG/2ML (UP TO 15 MG) Nov 13, 2017 INSTRUCTIONS MEDICATIONS ADMINISTERED No Known Medications MEDICAL (GENERAL) HISTORY Type Description Date Medical History COPD Medical History Type 2 Diabetes Medical History HTN Medical History Cardiac stents July 2010 post RI-stent to LAD Medical History Rheumatoid Arthritis Medical History 04/2016---Echo- 60%//mild hypertrophy at the base of the septum, mild mitral regurg/ mild tricuspid regurg. PAP about 10-15 mmHg Medical History 04/2016------Normal Lexiscan Medical History Elevated white blood cell count, unspecified Medical History Atherosclerotic heart disease of [place] coronary artery without angina pectoris Medical History [...]
--- NOTE | 2018-08-23 16:45 | Cardiac Procedure Note-CS/ASA ---
Pre-Procedure Note Pre-Op Procedure Note H&P Reviewed The H&P was reviewed, patient examined and no changes noted. Date H&P Reviewed: Aug 23, 2018 Time H&P Reviewed: 11:00 Conscious Sedation Pre-Proced Time 11:00 ASA Score 3 For ASA 3 and 4: Consider anesthesia and medical clearance. Also, for patients with a history of failed moderate sedation consider anesthesia. Airway Lungs Heart ASA score ASA 1: a normal healthy patient ASA 2: a patient with a mild systemic disease (mid diabetes, controlled hypertension, obesity x ASA 3: a patient with a severe systemic disease that limits activity (angina, COPD, prior Myocardial infarction) ASA 4: a patient with an incapacitating disease that is a constant threat to life (CHF, renal failure) ASA 5: a moribund patient not expected to survive 24 hrs. (ruptured aneurysm) ASA 6: a declared brain- patient whose organs are being harvested. For emergent operations, add the letter E after the classification Mallampati Classification Grade 3 Sedation Plan Analgesia, Amnesia, Plan communicated to team members, Discussed options with patient/fam, Discussed risks with patient/fam The patient is an appropriate candidate to undergo the planned procedure, sedation, and anesthesia. The patient immediately re-assessed prior to indication. ARVIND CASTELLANOS MD Aug 23, 2018 16:45
--- OUTSIDE RECORDS SUMMARY | 2018-08-23 16:45 | XMS REPORT ---
Author Author PANCHOROBCLAU Organization [facility] Address [address] [place] [address] Care Team Providers Care [employer] Operator Name Role Phone DELEONROB MoranELE Unavailable PROBLEMS Type Condition ICD9-CM Code JBZ46-IC Code Onset Dates Condition Status SNOMED Code Problem Neuropathy G62.9 Active 495585470 Problem Other hammer toe(s) (acquired), right foot M20.41 Active 625654498 Problem Other hammer toe(s) (acquired), left foot M20.42 Active 54110474 Problem Intractable migraine without status migrainosus, unspecified migraine type G43.919 Active 769031644 Problem Gastro-esophageal reflux disease without esophagitis K21.9 Active 491228683 Problem Elevated white blood cell count, unspecified D72.829 Active 746245201 Problem Hypertension I10 Active 90432814 Problem Hyperlipemia E78.5 Active 92808855 Problem Hammer toe of left foot M20.42 Active 793509250 Problem Tobacco abuse Z72.0 Active 367171390 Problem Other chronic pain G89.29 Active 85085488 Problem Atherosclerotic heart disease of [place] coronary artery 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.10 Active 653313052093405 Problem Allergic rhinitis J30.9 Active 52780938 Problem Anxiety associated with depression F41.8 Active 645948640 Problem Emphysema, unspecified J43.9 Active 73043540 Problem Type 2 diabetes mellitus with diabetic neuropathy, unspecified E11.40 Active 92880980 Problem Rheumatoid arthritis involving multiple sites with positive rheumatoid factor M05.79 Active 006504523 Problem Primary insomnia F51.01 Active 1674466 Problem Chronic pain G89.29 Active 61170473 Problem Periodontitis K05.30 Active 56664380 Problem Vitamin D deficiency E55.9 Active 49681627 Problem OAB (overactive bladder) N32.81 Active 892112502 Problem Dependence on nocturnal oxygen therapy Z99.81 Active [id number] ALLERGIES No Information ENCOUNTERS Encounter Location Date Diagnosis [facility] [address] [address] 16 Jan, 2018 [facility] [id number] [place] [address] Dec, [facility] [id number] [place] [address] 24 Nov, 2017 [facility] [id number] [place] [address] 07 Nov, 2017 Chronic pain G89.29 [facility] [id number] [place] [address] 06 Nov, 2017 Chronic pain G89.29 [facility] [id number] [place] [address] Oct, Dysuria R30.0 ; Intractable migraine without status migrainosus, unspecified migraine type G43.919 and Back pain at L4-L5 level M54.5 [facility] [id number] [place] [address] Oct, Orthostatic hypotension I95.1 [facility] [id number] [place] [address] Oct, Localized swelling of both lower legs R22.43 ; Onychomycosis B35.1 and Type 2 diabetes mellitus with diabetic neuropathy, unspecified E11.40 [facility] [address] [place] [address] Oct, [facility] [id number] [place] [address] Oct, Elevated white blood cell count, unspecified D72.829 [facility] [id number] [place] [address] Oct, Elevated white blood cell count, unspecified D72.829 [facility] [id number] [place] [address] Oct, Chronic pain G89.29 [facility] [address] [place] [address] Oct, [facility] [id number] [place] [address] Oct, [facility] [id number] [place] [address] Oct, Orthostatic hypotension I95.1 ; Dizziness R42 and Neuropathy G62.9 [facility] [id number] [place] [address] Oct, Dizziness R42 ; Low back pain M54.5 ; Other chronic pain G89.29 ; Nausea R11.0 and Orthostatic hypotension I95.1 [facility] [id number] [place] [address] Sep, Rheumatoid arthritis involving multiple sites with positive rheumatoid factor M05.79 and Tobacco abuse Z72.0 [facility] [id number] [place] [address] Sep, Chronic pain G89.29 [facility] [address] [address] Aug, Type 2 diabetes mellitus with diabetic neuropathy, unspecified E11.40 ; Hypertension I10 ; Hyperlipemia E78.5 ; Gastro-esophageal reflux disease without esophagitis K21.9 ; Emphysema, unspecified J43.9 ; Anxiety associated with depression F41.8 ; Vitamin D deficiency E55.9 ; Chronic pain G89.29 ; Tobacco abuse Z72.0 ; Overweight (BMI 25.0-29.9) E66.3 ; Atherosclerotic heart disease of [place] coronary artery 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.10 ; OAB (overactive bladder) N32.81 and Primary insomnia F51.01 [facility] [address] [place] [address] July, [facility] [id number] [place] [address] July, [facility] [address], [place] [address] July, Chronic pain G89.29 [facility] [id number] [place] [address] July, [facility] [id number] [place] [address] July, Onychomycosis B35.1 ; Hammer toe of left foot M20.42 and Type 2 diabetes mellitus with diabetic neuropathy, unspecified E11.40 [facility] [id number] [place] [address] July, [facility] [id number] [place] [address] July, Chronic pain G89.29 and Neuropathy G62.9 [facility] [id number] [place] [address] July, [facility] [id number] [place] [address] July, [facility] [id number] [place] [address] Jun, [facility] [id number] [place] [address] Jun, Chronic pain G89.29 [facility] [id number] [place] [address] Jun, [facility] [id number] [place] [address] Jun, [facility] [id number] [place] [address] Jun, Visit for TB skin test Z11.1 [facility] [id number] [place] [address] Jun, [facility] [id number] [place] [address] Jun, [facility] [id number] [place] [address] Jun, Tobacco abuse Z72.0 and Rheumatoid arthritis involving multiple sites with positive rheumatoid factor M05.79 [facility] [id number] [place] [address] Jun, Anxiety F41.9 ; Acute non-recurrent maxillary sinusitis J01.00 and Chronic pain G89.29 [facility] [id number] [place] [address] Jun, [facility] [address] [address] May, Rheumatoid arthritis involving multiple sites with positive rheumatoid factor M05.79 [facility] [id number] [place] [address] May, Chronic pain G89.29 [facility] [id number] [place] [address] May, [facility] [id number] [place] [address] May, [facility] [id number] [place] [address] May, [facility] [id number] [place] [address] May, Type 2 diabetes mellitus with diabetic neuropathy, unspecified E11.40 [facility] [id number] [place] [address] May, Type 2 diabetes mellitus with diabetic neuropathy, unspecified E11.40 ; Emphysema, unspecified J43.9 ; Hypertension I10 ; Hyperlipemia E78.5 ; Vitamin D deficiency E55.9 ; Right medial knee pain M25.561 ; Controlled substance agreement signed Z79.899 ; Chronic pain G89.29 ; Allergic rhinitis J30.9 ; Anxiety associated with depression F41.8 ; Neuropathy G62.9 and Gastro- esophageal reflux disease without esophagitis K21.9 [facility] [id number] [place] [address] Apr, Chronic pain G89.29 [facility] [address] [address] 16 Apr, 2017 Other hammer toe(s) (acquired), left foot M20.42 ; Other hammer toe(s) (acquired), right foot M20.41 ; Type 2 diabetes mellitus with diabetic neuropathy, unspecified E11.40 and Onychomycosis B35.1 [facility] [address] [address] 2017 Gastro-esophageal reflux disease without esophagitis K21.9 [facility] [address] [address] 02 Apr, 2017 Controlled substance agreement signed Z79.899 [facility] [address] [address] Mar, Chronic pain G89.29 [facility] [address] [address] Mar, Emphysema, unspecified J43.9 and Type 2 diabetes mellitus with diabetic neuropathy, unspecified E11.40 [facility] [id number] [place] [address] Mar, Dysuria R30.0 ; Vaginal candidiasis B37.3 and Acute nonintractable headache, unspecified headache type R51 [facility] [id number] [place] [address] Feb, Neuropathy G62.9 and Chronic pain G89.29 [facility] [address] [address] Feb, Gastro-esophageal reflux disease without esophagitis K21.9 [facility] [address] [address] Feb, [facility] [address] [place] [address] Feb, Rheumatoid arthritis involving multiple sites with positive rheumatoid factor M05.79 and COPD with acute exacerbation J44.1 [facility] [id number] [place] [address] 08 Feb, 2017 Vaginal odor N89.8 ; Vaginal irritation N89.8 ; Candidal dermatitis B37.2 and Screening breast examination Z12.31 [facility] [id number] [place] [address] Feb, [facility] [address] [address] Feb, [facility] [id number] [place] [address] Feb, [facility] [id number] [place] [address] Feb, COPD with exacerbation J44.1 ; Tobacco abuse counseling Z71.6 ; Tobacco abuse Z72.0 ; Rheumatoid arthritis involving multiple sites with positive rheumatoid factor M05.79 and Hyperlipemia E78.5 [facility] [id number] [place] [address] Feb, [facility] [id number] [place] [phone] Jan, [facility] [id number] [place] [address] Jan, Chronic pain G89.29 [facility] [id number] [place] [id number] Jan, Dental examination Z01.20 [facility] [id number] [place] [address] 19 Jan, 2017 Back pain of lumbar region with sciatica M54.40 [facility] [id number] [place] [address] Jan, Acute bacterial conjunctivitis of both eyes H10.33 [facility] [id number] [place] [address] 02 Jan, 2017 Chronic pain G89.29 [facility] [address] [address] Dec, Type 2 diabetes mellitus with diabetic neuropathy, unspecified E11.40 ; Hypertension I10 ; Hyperlipemia E78.5 ; Gastro-esophageal reflux disease without esophagitis K21.9 ; Anxiety associated with depression F41.8 ; Allergic rhinitis J30.9 ; Neuropathy G62.9 and Dependence on nocturnal oxygen therapy Z99.81 [facility] [address] [address] Dec, [facility] [address] [address] Dec, [facility] [address] [address] Dec, Encounter for immunization Z23 [facility] [address] [address] 05 Dec, 2016 Type 2 diabetes mellitus with diabetic neuropathy, unspecified E11.40 and Chronic pain G89.29 [facility] [address] [address] Nov, Gastro-esophageal reflux disease without esophagitis K21.9 [facility] [address] [address] Nov, Peripheral edema R60.9 and Chest pain in adult R07.9 [facility] [address] [address] 07 Nov, 2016 Chronic pain G89.29 [facility] [address] [address] Oct, [facility] [address] [address] Oct, [facility] [address] [place] [address] Oct, 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 M05.731 [facility] [address] [place] [address] Oct, [facility] [id number] [place] [address] Oct, Acute exacerbation of chronic obstructive pulmonary disease (COPD) J44.1 and Canker sore K12.0 [facility] [id number] [place] [address] Oct, [facility] [id number] [place] [address] Oct, [facility] [id number] [place] [address] Oct, Chronic pain G89.29 [facility] [address] [id number] Oct, Dental examination Z01.20 [facility] [id number] [place] [address] Oct, Dental examination Z01.20 and Periodontitis K05.30 [facility] [id number] [place] [id number] Oct, Dental examination Z01.20 [facility] [address] [place] [address] Sep, Abscess L02.91 [facility] [id number] [place] [address] Sep, Dental examination Z01.20 [facility] [id number] [place] [address] Sep, [facility] [id number] [place] [id number] 18 Syd, 2017 Dental examination Z01.20 and Dental caries K02.9 [facility] [address] [place] [address] 18 Sep, 2016 Primary insomnia F51.01 and Anxiety associated with depression F41.8 [facility] [id number] [place] [address] 14 Sep, 2016 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 M05.731 [facility] [id number] [place] [address] Sep, Chronic pain G89.29 [place] [id number] [place] [address] Sep, Type 2 diabetes mellitus with diabetic neuropathy, unspecified E11.40 ; Emphysema, unspecified J43.9 ; Gastro-esophageal reflux disease without esophagitis K21.9 ; Hypertension I10 ; Hyperlipemia E78.5 ; Anxiety associated with depression F41.8 ; Chronic pain G89.29 ; Vitamin D deficiency E55.9 and Primary insomnia F51.01 [facility] [id number] [place] [address] 16 Aug, 2016 Anxiety associated with depression F41.8 [facility] [id number] [place] [address] 13 Aug, 2016 Chronic pain G89.29 and Neuropathy G62.9 [facility] [id number] [place] [address] Aug, Type 2 diabetes mellitus with diabetic neuropathy, unspecified E11.40 ; Rheumatoid arthritis involving multiple sites with positive rheumatoid factor M05.79 ; Vitamin D deficiency E55.9 ; Anxiety associated with depression F41.8 and Primary insomnia F51.01 [facility] [id number] [place] [address] July, Emphysema, unspecified J43.9 [facility] [id number] [place] [address] July, Allergic rhinitis J30.9 [facility] [address] [place] [address] July, Allergic rhinitis J30.9 ; Emphysema, unspecified J43.9 and 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 M05.731 [facility] [id number] [place] [address] July, Neuropathy G62.9 and Chronic pain G89.29 [facility] [id number] [place] [address] July, Rheumatoid arthritis involving multiple sites with positive rheumatoid factor M05.79 [facility] [address] [address] Jun, [facility] [address] [address] Jun, Neuropathy G62.9 and Chronic pain G89.29 [facility] [id number] [place] [address] May, Neuropathy G62.9 and Chronic pain G89.29 [facility] [id number] [place] [address] May, [facility] [id number] [place] [address] May, [facility] [id number] [place] [address] May, Type 2 diabetes mellitus with diabetic [...] system involvement with positive rheumatoid factor M05.732 [facility] [address] [place] [address] 14 Apr, 2016 Chronic pain G89.29 [facility] [id number] [place] [address] Mar, Gastro-esophageal reflux disease without esophagitis K21.9 [facility] [id number] [place] [address] Mar, [facility] [id number] [place] [address] Mar, 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 M05.731 [facility] [id number] [place] [address] Mar, Chronic pain G89.29 [facility] [id number] [place] [address] Feb, Hyperlipemia E78.5 [facility] [id number] [place] [address] Feb, Abnormal breath sounds R06.89 ; COPD with exacerbation J44.1 and Fatigue, unspecified type R53.83 [facility] [id number] [place] [address] Feb, Neuropathy G62.9 ; Abnormal lung sounds R09.89 and Bronchitis J40 [facility] [id number] [place] [address] Feb, Bronchitis J40 [facility] [id number] [place] [address] Feb, Chronic pain G89.29 [facility] [id number] [place] [address] Jan, Type 2 diabetes mellitus with diabetic neuropathy, unspecified E11.40 ; 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 M05.731 and Hyperlipemia E78.5 [facility] [address] [place] [address] Jan, 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 M05.731 [facility] [id number] [place] [address] Jan, De Quervain's disease (radial styloid tenosynovitis) M65.4 ; Closed nondisplaced fracture of scaphoid of left wrist, unspecified portion of scaphoid, initial encounter S62.002A and Peripheral tear of medial meniscus of left knee, unspecified whether old or current tear, initial encounter S83.222A [facility] [id number] [place] [address] Jan, Hypertension I10 ; Type 2 diabetes mellitus with diabetic neuropathy, unspecified E11.40 ; Hyperlipemia E78.5 ; Allergic rhinitis J30.9 ; Neuropathy G62.9 ; 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 M05.731 ; Acute non-recurrent maxillary sinusitis J01.00 and Chronic pain G89.29 [facility] [id number] [place] [address] Dec, [facility] [id number] [place] [address] Dec, [facility] [id number] [place] [address] Dec, Type 2 diabetes mellitus with diabetic neuropathy, unspecified E11.40 ; Emphysema, unspecified J43.9 ; Gastro-esophageal reflux disease without esophagitis K21.9 ; Hypertension I10 ; Hyperlipemia E78.5 ; 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 M05.731 ; Elevated white blood cell count, unspecified D72.829 ; Acute non- recurrent frontal sinusitis J01.10 and Chronic pain G89.29 [facility] [id number] [place] [address] Nov, [place] [address] [place] [address] Nov, Elevated white blood cell count, unspecified D72.829 ; Encounter for immunization Z23 ; 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 M05.731 ; Injury of left hand S69.92XA ; Pain in left knee M25.562 and Other chronic pain G89.29 [facility] [id number] [place] [address] Nov, [facility] [id number] [place] [address] Nov, [facility] [id number] [place] [address] Oct, [facility] [id number] [place] [phone] Oct, Hyperlipemia E78.5 [place] [id number] [place] [phone] Oct, [place] [id number] [place] [phone] Oct, Type 2 diabetes mellitus with diabetic neuropathy, unspecified E11.40 ; Neuropathy G62.9 ; Hypertension I10 ; Chronic pain G89.29 and Hyperlipemia E78.5 [place] [id number] [place] [phone] Oct, Emphysema, unspecified J43.9 and Rheumatoid arthritis of left wrist without organ or system involvement with positive rheumatoid factor M05.732 [place] [id number] [place] [phone] Sep, Chronic pain syndrome G89.4 [place] [address] [address] [id number] [place] [phone] Sep, [place] [id number] [place] [phone] Sep, [place] [address] [id number] [address] Sep, Closed nondisplaced fracture of scaphoid of left wrist, unspecified portion of scaphoid, initial encounter S62.002A [facility] [id number] [place] [address] Sep, Type 2 diabetes mellitus with diabetic neuropathy, unspecified E11.40 ; Hypertension I10 ; Hyperlipemia E78.5 and Acute non-recurrent maxillary sinusitis J01.00 [facility] [id number] [place] [address] Sep, [place] [id number] [place] [address] Sep, [facility] [id number] [place] [address] Sep, [place] [id number] [place] [address] Sep, [facility] [id number] [place] [address] Aug, Epigastric pain R10.13 and Right upper quadrant pain R10.11 [place] [id number] [place] [address] Aug, Closed nondisplaced fracture of scaphoid of left wrist, unspecified portion of scaphoid, initial encounter S62.002A [place] [id number] [place] [address] Aug, [facility] [id number] [place] [address] Aug, [facility] [id number] [place] [address] Aug, Shortness of breath R06.02 ; Epigastric pain R10.13 and Injury of left lower arm, initial encounter S59.912A [place] [id number] [place] [address] Aug, Coronary artery disease involving [place] heart with angina pectoris, unspecified vessel or lesion type I25.119 ; Pulmonary emphysema, unspecified emphysema type J43.9 and Snoring R06.83 [place] [id number] [place] [address] Aug, [place] [id number] [place] [address] Aug, Emphysema, unspecified J43.9 ; Atherosclerotic heart disease of [place] coronary artery 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.10 and Hypertension I10 [id number] [place] [address] July, [address] [id number] [place] [address] July, Closed nondisplaced fracture of scaphoid of left wrist, unspecified portion of scaphoid, initial encounter S62.002A [place] [id number] [place] [address] July, [address] [id number] [place] [address] July, Type 2 diabetes mellitus with diabetic neuropathy, unspecified E11.40 ; Emphysema, unspecified J43.9 ; Atherosclerotic heart disease of [place] coronary artery 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.10 ; [...] agents L24.89 and Hospital discharge follow-up Z09 [place] [id number] [place] [address] July, [place] [id number] [place] [address] July, Type 2 diabetes mellitus with diabetic neuropathy, unspecified E11.40 [facility] [address] [address] July, Type 2 diabetes mellitus with diabetic neuropathy, unspecified E11.40 and Rheumatoid arthritis of left wrist without organ or system involvement with positive rheumatoid factor M05.732 [facility] [address] [address] July, [facility] [id number] [place] [address] July, [facility] [id number] [place] [address] Jun, [facility] [id number] [place] [address] Jun, [facility] [id number] [place] [address] Jun, 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 [facility] [id number] [place] [address] Jun, [facility] [id number] [place] [address] Jun, 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 [facility] [address] [address] Jun, [facility] [address] [address] Jun, [facility] [address] [place] [address] Jun, Encounter for PPD test Z11.1 ; 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 M05.731 and Rheumatoid arthritis of left wrist without organ or system involvement with positive rheumatoid factor M05.732 [facility] [address] [address] Jun, Type 2 diabetes mellitus with diabetic neuropathy, unspecified E11.40 [place] [id number] [place] [address] May, Type 2 diabetes mellitus with diabetic neuropathy, unspecified E11.40 ; Emphysema, unspecified J43.9 ; 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 M05.731 ; Rheumatoid arthritis of left wrist without organ or system involvement with positive rheumatoid factor M05.732 and Chronic pain G89.29 [place] [address] [address] May, [place] [address] [address] May, Swelling of hand joint M25.449 ; Ankle swelling M25.473 and Joint pain M25.50 [place] [address] [address] May, Emphysema, unspecified J43.9 [place] [address] [address] May, Gastroenteritis K52.9 and Hypertension I10 [place] [address] [address] Apr, [place] [address] [address] Apr, [place] [id number] [place] [address] Apr, [place] [address] [address] Apr, Type 2 diabetes mellitus with diabetic neuropathy, unspecified E11.40 ; Emphysema, unspecified J43.9 ; Atherosclerotic heart disease of [place] coronary artery 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.10 ; Migraine without aura, not intractable, with status migrainosus G43.001 ; Gastro-esophageal reflux disease without esophagitis K21.9 ; CAD (coronary artery disease) I25.10 ; Hypertension I10 ; Hyperlipemia E78.5 ; Allergic rhinitis J30.9 ; Neuropathy G62.9 ; Anxiety associated with depression F41.8 and Injury of left hand S69.92XA [place] [address] [address] Apr, [place] [address] [address] Apr, [place] [address] [address] Apr, Type 2 diabetes mellitus with diabetic neuropathy, unspecified E11.40 ; Emphysema, unspecified J43.9 ; Essential (primary) hypertension I10 ; Atherosclerotic heart disease of [place] coronary artery 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.10 ; Gastro-esophageal reflux disease without esophagitis K21.9 ; CAD (coronary artery disease) I25.10 ; Hyperlipemia E78.5 ; Hypertension I10 ; History of solitary pulmonary nodule Z87.898 ; Allergic rhinitis J30.9 ; Chronic pain G89.29 and Depression with anxiety F41.[address] [address] Mar, [address] [address] Mar, Allergic rhinitis J30.9 ; URI (upper respiratory infection) J06.9 and Other viral agents as the cause of diseases classified elsewhere B97.89 [facility] [id number] [place] [address] Feb, Acute nasopharyngitis [common cold] J00 and Acute diarrhea R19.[address] [address] Feb, Depression F32.[address] [address] Jan, Otitis media, right H66.[address] [address] Jan, [id number] [place] [address] Jan, Type 2 diabetes mellitus with diabetic neuropathy, unspecified E11.40 [place] [address] [address] Jan, [place] [address] [address] Jan, Hyperlipemia E78.5 [place] [address] [address] Jan, Type 2 diabetes mellitus with diabetic neuropathy, unspecified E11.40 ; Emphysema, unspecified J43.9 ; CAD (coronary artery disease) I25.10 and Hyperlipemia E78.5 [place] [address] [address] Dec, Allergic rhinitis J30.9 and Fungal infection B49 [place] [address] [address] Dec, [place] [address] [address] Dec, [place] [address] [address] Dec, Chest pain R07.9 ; CAD (coronary artery disease) I25.10 ; Hypertension I10 and Hyperlipemia E78.5 [place] [address] [address] Dec, Pain in thoracic spine M54.6 ; Gastro-esophageal reflux disease without esophagitis K21.9 ; Emphysema, unspecified J43.9 and Migraine without aura, not intractable, with status migrainosus G43.001 [place] [address] [address] Dec, [place] [address] [address] Nov, Influenza vaccine administered V04.81 [facility] [address] [facility] [id number] [address] Nov, [facility] [id number] [address] Sep, [facility] [id number] [address] Sep, [facility] [address] [address] Sep, CAD (coronary artery disease) 414.00 and Diabetes type 2, uncontrolled 250.02 [place] [address] [address] Sep, CAD (coronary artery disease) 414.00 ; Diabetes type 2, uncontrolled 250.02 and Migraine 346.90 IMMUNIZATIONS No Known Immunizations SOCIAL HISTORY Never Assessed REASON FOR VISIT FYI PLAN OF CARE VITAL SIGNS MEDICATIONS Medication Instructions Dosage Frequency Start Date End Date Duration Status Lisinopril 5 MG Orally Once a day 1 tablet 24h Oct, Active RESULTS No Results PROCEDURES No Known procedures INSTRUCTIONS MEDICATIONS ADMINISTERED No Known Medications MEDICAL (GENERAL) HISTORY Type Description Date Medical History COPD Medical History Type 2 Diabetes Medical History HTN Medical History Cardiac stents July 2010 post AL-stent to LAD Medical History Rheumatoid Arthritis Medical History 04/2016---Echo- 60%//mild hypertrophy at the base of the septum, mild mitral regurg/ mild tricuspid regurg. PAP about 10-15 mmHg Medical History 04/2016------Normal Lexiscan Medical History Elevated white blood cell count, unspecified Medical History Atherosclerotic heart disease of [place] coronary artery without angina pectoris Medical History Migraine without aura, not intractable, with status migrainosus Medical History Colonoscopy 03/05- needs repeat in 5 years due to polyp Surgical History hysterectomy Surgical History gall bladder removal Surgical History tonsilectomy Surgical History hernia Surgical History heart cath 2014 Surgical History stent 07/20/2010 Surgical History tendon repair-left wrist Surgical History left knee repair june 2016 Surgical History Teeth extraction 04/2017 Hospitalization History surgery related Hospitalization History heart cath
--- OUTSIDE RECORDS SUMMARY | 2018-08-23 16:46 | XMS REPORT ---
Author Author PANCHOROBCLAU Organization [facility], [place] Address [address] [place] [address] Care Team Providers Care Corporate Scheduler Name Role Phone DELEONROB MoranELE Unavailable PROBLEMS Type Condition ICD9-CM Code ETS67-IA Code Onset Dates Condition Status SNOMED Code Problem Neuropathy G62.9 Active 032324099 Problem Other hammer toe(s) (acquired), right foot M20.41 Active 297783717 Problem Other hammer toe(s) (acquired), left foot M20.42 Active 90241440 Problem Intractable migraine without status migrainosus, unspecified migraine type G43.919 Active 866568192 Problem Gastro-esophageal reflux disease without esophagitis K21.9 Active 571447126 Problem Elevated white blood cell count, unspecified D72.829 Active 701823330 Problem Hypertension I10 Active 07727883 Problem Hyperlipemia E78.5 Active 63619701 Problem Hammer toe of left foot M20.42 Active 070370371 Problem Tobacco abuse Z72.0 Active 835295426 Problem Other chronic pain G89.29 Active 51799076 Problem Atherosclerotic heart disease of [place] coronary artery 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.10 Active 380872167331884 Problem Allergic rhinitis J30.9 Active 88947937 Problem Anxiety associated with depression F41.8 Active 595218239 Problem Emphysema, unspecified J43.9 Active 82143687 Problem Type 2 diabetes mellitus with diabetic neuropathy, unspecified E11.40 Active 92840683 Problem Rheumatoid arthritis involving multiple sites with positive rheumatoid factor M05.79 Active 425436240 Problem Primary insomnia F51.01 Active 7341986 Problem Chronic pain G89.29 Active 81067314 Problem Periodontitis K05.30 Active 82222616 Problem Vitamin D deficiency E55.9 Active 24304913 Problem OAB (overactive bladder) N32.81 Active 127722789 Problem Dependence on nocturnal oxygen therapy Z99.81 Active [id number] ALLERGIES No Information ENCOUNTERS Encounter Location Date Diagnosis [facility], [place] [address] [address] 16 Jan, 2018 [facility] [place] [id number] [place] [address] Dec, [facility] [place] [id number] [place] [address] 24 Nov, 2017 [facility] [place] [id number] [place] [address] 07 Nov, 2017 Chronic pain G89.29 [facility] [place] [id number] [place] [address] 06 Nov, 2017 Chronic pain G89.29 [facility] [id number] [place] [address] Oct, Dysuria R30.0 ; Intractable migraine without status migrainosus, unspecified migraine type G43.919 and Back pain at L4-L5 level M54.5 [facility] [id number] [place] [address] Oct, Orthostatic hypotension I95.1 [facility] [facility] [id number] [place] [address] Oct, Localized swelling of both lower legs R22.43 ; Onychomycosis B35.1 and Type 2 diabetes mellitus with diabetic neuropathy, unspecified E11.40 [place] [id number] [place] [address] Oct, [facility] [id number] [place] [address] Oct, Elevated white blood cell count, unspecified D72.829 [place] [id number] [place] [address] Oct, Elevated white blood cell count, unspecified D72.829 [facility] [id number] [place] [address] Oct, Chronic pain G89.29 [facility] [place] [id number] [place] [address] Oct, [facility] [place] [id number] [place] [address] Oct, [facility] [place] [id number] [place] [address] Oct, Orthostatic hypotension I95.1 ; Dizziness R42 and Neuropathy G62.9 [facility] [id number] [place] [address] Oct, Dizziness R42 ; Low back pain M54.5 ; Other chronic pain G89.29 ; Nausea R11.0 and Orthostatic hypotension I95.1 [place] [id number] [place] [address] Sep, Rheumatoid arthritis involving multiple sites with positive rheumatoid factor M05.79 and Tobacco abuse Z72.0 [facility] [id number] [place] [address] Sep, Chronic pain G89.29 [place] [address] [address] Aug, Type 2 diabetes mellitus with diabetic neuropathy, unspecified E11.40 ; Hypertension I10 ; Hyperlipemia E78.5 ; Gastro-esophageal reflux disease without esophagitis K21.9 ; Emphysema, unspecified J43.9 ; Anxiety associated with depression F41.8 ; Vitamin D deficiency E55.9 ; Chronic pain G89.29 ; Tobacco abuse Z72.0 ; Overweight (BMI 25.0-29.9) E66.3 ; Atherosclerotic heart disease of [place] coronary artery 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.10 ; OAB (overactive bladder) N32.81 and Primary insomnia F51.01 [place] [id number] [place] [address] July, [facility] [id number] [place] [address] July, [facility], [place] [address] [address] July, Chronic pain G89.29 [facility] [place] [id number] [place] [address] July, [facility] [place] [id number] [place] [address] July, Onychomycosis B35.1 ; Hammer toe of left foot M20.42 and Type 2 diabetes mellitus with diabetic neuropathy, unspecified E11.40 [facility] [place] [id number] [place] [address] July, [facility] [place] [id number] [place] [address] July, Chronic pain G89.29 and Neuropathy G62.9 [facility] [place] [id number] [place] [address] July, [facility] [place] [id number] [place] [address] July, [facility] [place] [id number] [place] [address] Jun, [facility] [place] [id number] [place] [address] Jun, Chronic pain G89.29 [facility] [place] [id number] [place] [address] Jun, [facility] [place] [id number] [place] [address] Jun, [facility] [place] [id number] [place] [address] Jun, Visit for TB skin test Z11.1 [facility] [place] [id number] [place] [address] Jun, [facility] [place] [id number] [place] [address] Jun, [facility] [place] [id number] [place] [address] Jun, Tobacco abuse Z72.0 and Rheumatoid arthritis involving multiple sites with positive rheumatoid factor M05.79 [facility] [id number] [place] [address] Jun, Anxiety F41.9 ; Acute non-recurrent maxillary sinusitis J01.00 and Chronic pain G89.29 [place] [id number] [place] [address] Jun, [place] [address] [address] May, Rheumatoid arthritis involving multiple sites with positive rheumatoid factor M05.79 [facility] [id number] [place] [address] May, Chronic pain G89.29 [facility] [place] [id number] [place] [address] May, [facility] [id number] [place] [address] May, [facility] [id number] [place] [address] May, [place] [id number] [place] [address] May, Type 2 diabetes mellitus with diabetic neuropathy, unspecified E11.40 [facility] [id number] [place] [address] May, Type 2 diabetes mellitus with diabetic neuropathy, unspecified E11.40 ; Emphysema, unspecified J43.9 ; Hypertension I10 ; Hyperlipemia E78.5 ; Vitamin D deficiency E55.9 ; Right medial knee pain M25.561 ; Controlled substance agreement signed Z79.899 ; Chronic pain G89.29 ; Allergic rhinitis J30.9 ; Anxiety associated with depression F41.8 ; Neuropathy G62.9 and Gastro- esophageal reflux disease without esophagitis K21.9 [facility] [id number] [place] [address] Apr, Chronic pain G89.29 [place] [address] [address] 16 Apr, 2017 Other hammer toe(s) (acquired), left foot M20.42 ; Other hammer toe(s) (acquired), right foot M20.41 ; Type 2 diabetes mellitus with diabetic neuropathy, unspecified E11.40 and Onychomycosis B35.1 [place] [address] [address] 2017 Gastro-esophageal reflux disease without esophagitis K21.9 [place] [address] [address] 02 Apr, 2017 Controlled substance agreement signed Z79.899 [place] [address] [address] Mar, Chronic pain G89.29 [place] [address] [address] Mar, Emphysema, unspecified J43.9 and Type 2 diabetes mellitus with diabetic neuropathy, unspecified E11.40 [facility] [id number] [place] [address] Mar, Dysuria R30.0 ; Vaginal candidiasis B37.3 and Acute nonintractable headache, unspecified headache type R51 [place] [id number] [place] [address] Feb, Neuropathy G62.9 and Chronic pain G89.29 [place] [address] [address] Feb, Gastro-esophageal reflux disease without esophagitis K21.9 [place] [address] [address] Feb, [facility] [place] [id number] [place] [address] Feb, Rheumatoid arthritis involving multiple sites with positive rheumatoid factor M05.79 and COPD with acute exacerbation J44.1 [facility], [place] [id number] [place] [address] 08 Feb, 2017 Vaginal odor N89.8 ; Vaginal irritation N89.8 ; Candidal dermatitis B37.2 and Screening breast examination Z12.31 [facility] [place] [id number] [place] [address] Feb, [place] [address] [address] Feb, [place] [id number] [place] [address] Feb, [place] [id number] [place] [address] Feb, COPD with exacerbation J44.1 ; Tobacco abuse counseling Z71.6 ; Tobacco abuse Z72.0 ; Rheumatoid arthritis involving multiple sites with positive rheumatoid factor M05.79 and Hyperlipemia E78.5 [place] [id number] [place] [address] Feb, [facility] [id number] [place] [id number] Jan, [facility] [place] [id number] [place] [address] Jan, Chronic pain G89.29 [facility] [id number] [place] [id number] Jan, Dental examination Z01.20 [facility] [id number] [place] [address] 19 Jan, 2017 Back pain of lumbar region with sciatica M54.40 [facility] [id number] [place] [address] Jan, Acute bacterial conjunctivitis of both eyes H10.33 [facility] [id number] [place] [address] 02 Jan, 2017 Chronic pain G89.29 [place] [address] [address] Dec, Type 2 diabetes mellitus with diabetic neuropathy, unspecified E11.40 ; Hypertension I10 ; Hyperlipemia E78.5 ; Gastro-esophageal reflux disease without esophagitis K21.9 ; Anxiety associated with depression F41.8 ; Allergic rhinitis J30.9 ; Neuropathy G62.9 and Dependence on nocturnal oxygen therapy Z99.81 [place] [address] [address] Dec, [place] [address] [address] Dec, [place] [address] [address] Dec, Encounter for immunization Z23 [place] [address] [address] 05 Dec, 2016 Type 2 diabetes mellitus with diabetic neuropathy, unspecified E11.40 and Chronic pain G89.29 [place] [address] [address] Nov, Gastro-esophageal reflux disease without esophagitis K21.9 [place] [address] [address] Nov, Peripheral edema R60.9 and Chest pain in adult R07.9 [place] [address] [address] 07 Nov, 2016 Chronic pain G89.29 [place] [address] [address] Oct, [place] [address] [address] Oct, [facility] [place] [id number] [place] [address] Oct, 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 M05.731 [facility] [place] [id number] [place] [address] Oct, [facility] [id number] [place] [address] Oct, Acute exacerbation of chronic obstructive pulmonary disease (COPD) J44.1 and Canker sore K12.0 [facility] [place] [id number] [place] [address] Oct, [facility] [place] [id number] [place] [address] Oct, [facility] [place] [id number] [place] [address] Oct, Chronic pain G89.29 [facility] [address] [id number] Oct, Dental examination Z01.20 [facility] [place] [id number] [place] [address] Oct, Dental examination Z01.20 and Periodontitis K05.30 [facility] [id number] [place] [id number] Oct, Dental examination Z01.20 [facility] [id number] [place] [address] Sep, Abscess L02.91 [facility] [place] [id number] [place] [address] Sep, Dental examination Z01.20 [facility] [place] [id number] [place] [address] Sep, [facility] [id number] [place] [id number] 18 Syd, 2017 Dental examination Z01.20 and Dental caries K02.9 [place] [id number] [place] [address] 18 Sep, 2016 Primary insomnia F51.01 and Anxiety associated with depression F41.8 [place] [id number] [place] [address] 14 Sep, 2016 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 M05.731 [place] [id number] [place] [address] Sep, Chronic pain G89.29 [place] [id number] [place] [address] Sep, Type 2 diabetes mellitus with diabetic neuropathy, unspecified E11.40 ; Emphysema, unspecified J43.9 ; Gastro-esophageal reflux disease without esophagitis K21.9 ; Hypertension I10 ; Hyperlipemia E78.5 ; Anxiety associated with depression F41.8 ; Chronic pain G89.29 ; Vitamin D deficiency E55.9 and Primary insomnia F51.01 [place] [id number] [place] [address] 16 Aug, 2016 Anxiety associated with depression F41.8 [place] [id number] [place] [address] 13 Aug, 2016 Chronic pain G89.29 and Neuropathy G62.9 [place] [id number] [place] [address] Aug, Type 2 diabetes mellitus with diabetic neuropathy, unspecified E11.40 ; Rheumatoid arthritis involving multiple sites with positive rheumatoid factor M05.79 ; Vitamin D deficiency E55.9 ; Anxiety associated with depression F41.8 and Primary insomnia F51.01 [place] [id number] [place] [address] July, Emphysema, unspecified J43.9 [place] [id number] [place] [address] July, Allergic rhinitis J30.9 [place] [id number] [place] [address] July, Allergic rhinitis J30.9 ; Emphysema, unspecified J43.9 and 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 M05.731 [place] [id number] [place] [address] July, Neuropathy G62.9 and Chronic pain G89.29 [place] [id number] [place] [address] July, Rheumatoid arthritis involving multiple sites with positive rheumatoid factor M05.79 [place] [address] [address] Jun, [place] [address] [address] Jun, Neuropathy G62.9 and Chronic pain G89.29 [place] [id number] [place] [address] May, Neuropathy G62.9 and Chronic pain G89.29 [place] [id number] [place] [address] May, [place] [id number] [place] [address] May, [place] [id number] [place] [address] May, Type 2 diabetes mellitus with diabetic [...] system involvement with positive rheumatoid factor M05.732 [facility] [place] [id number] [place] [address] 14 Apr, 2016 Chronic pain G89.29 [facility] [place] [id number] [place] [address] Mar, Gastro-esophageal reflux disease without esophagitis K21.9 [place] [id number] [place] [address] Mar, [place] [id number] [place] [address] Mar, 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 M05.731 [place] [id number] [place] [address] Mar, Chronic pain G89.29 [place] [id number] [place] [address] Feb, Hyperlipemia E78.5 [place] [id number] [place] [address] Feb, Abnormal breath sounds R06.89 ; COPD with exacerbation J44.1 and Fatigue, unspecified type R53.83 [place] [id number] [place] [address] Feb, Neuropathy G62.9 ; Abnormal lung sounds R09.89 and Bronchitis J40 [facility] [id number] [place] [address] Feb, Bronchitis J40 [facility] [place] [id number] [place] [address] Feb, Chronic pain G89.29 [facility] [place] [id number] [place] [address] Jan, Type 2 diabetes mellitus with diabetic neuropathy, unspecified E11.40 ; 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 M05.731 and Hyperlipemia E78.5 [place] [id number] [place] [address] Jan, 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 M05.731 [place] [id number] [place] [address] Jan, De Quervain's disease (radial styloid tenosynovitis) M65.4 ; Closed nondisplaced fracture of scaphoid of left wrist, unspecified portion of scaphoid, initial encounter S62.002A and Peripheral tear of medial meniscus of left knee, unspecified whether old or current tear, initial encounter S83.222A [place] [id number] [place] [address] Jan, Hypertension I10 ; Type 2 diabetes mellitus with diabetic neuropathy, unspecified E11.40 ; Hyperlipemia E78.5 ; Allergic rhinitis J30.9 ; Neuropathy G62.9 ; 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 M05.731 ; Acute non-recurrent maxillary sinusitis J01.00 and Chronic pain G89.29 [place] [id number] [place] [address] Dec, [place] [id number] [place] [address] Dec, [place] [id number] [place] [address] Dec, Type 2 diabetes mellitus with diabetic neuropathy, unspecified E11.40 ; Emphysema, unspecified J43.9 ; Gastro-esophageal reflux disease without esophagitis K21.9 ; Hypertension I10 ; Hyperlipemia E78.5 ; 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 M05.731 ; Elevated white blood cell count, unspecified D72.829 ; Acute non- recurrent frontal sinusitis J01.10 and Chronic pain G89.29 [place] [id number] [place] [address] Nov, [place] [id number] [place] [address] Nov, Elevated white blood cell count, unspecified D72.829 ; Encounter for immunization Z23 ; 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 M05.731 ; Injury of left hand S69.92XA ; Pain in left knee M25.562 and Other chronic pain G89.29 [place] [address] [place] [id number] [place] [phone] Nov, [place] [address] [place] [id number] [place] [phone] Nov, [place] [address] [place] [id number] [place] [phone] Oct, [place] [address] [place] [id number] [place] [place] [phone] Oct, Hyperlipemia E78.5 [place] [address] [place] [id number] [place] [phone] Oct, [place] [address] [place] [id number] [place] [phone] Oct, Type 2 diabetes mellitus with diabetic neuropathy, unspecified E11.40 ; Neuropathy G62.9 ; Hypertension I10 ; Chronic pain G89.29 and Hyperlipemia E78.5 [place] [id number] [place] [phone] Oct, Emphysema, unspecified J43.9 and Rheumatoid arthritis of left wrist without organ or system involvement with positive rheumatoid factor M05.732 [place] [id number] [place] [address] Sep, Chronic pain syndrome G89.4 [place] [address] [id number] [place] [address] Sep, [place] [id number] [place] [address] Sep, [place] [address] [id number] [address] Sep, Closed nondisplaced fracture of scaphoid of left wrist, unspecified portion of scaphoid, initial encounter S62.002A [facility], [place] [id number] [place] [address] Sep, Type 2 diabetes mellitus with diabetic neuropathy, unspecified E11.40 ; Hypertension I10 ; Hyperlipemia E78.5 and Acute non-recurrent maxillary sinusitis J01.00 [facility], [place] [id number] [place] [address] Sep, [place] [id number] [place] [address] Sep, [facility], [place] [id number] [place] [address] Sep, [place] [address] [id number] [place] [address] Sep, [facility], [place] [id number] [place] [address] Aug, Epigastric pain R10.13 and Right upper quadrant pain R10.11 [place] [id number] [place] [address] Aug, Closed nondisplaced fracture of scaphoid of left wrist, unspecified portion of scaphoid, initial encounter S62.002A [place] [id number] [place] [address] Aug, [facility], [place] [address] [id number] [place] [address] Aug, [facility] [id number] [place] [address] Aug, Shortness of breath R06.02 ; Epigastric pain R10.13 and Injury of left lower arm, initial encounter S59.912A [place] [id number] [place] [address] Aug, Coronary artery disease involving o[place] heart with angina pectoris, unspecified vessel or lesion type I25.119 ; Pulmonary emphysema, unspecified emphysema type J43.9 and Snoring R06.83 [place] [id number] [place] [address] Aug, [place] [id number] [place] [address] Aug, Emphysema, unspecified J43.9 ; Atherosclerotic heart disease of [place] coronary artery 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.10 and Hypertension I10 [place] [id number] [place] [address] July, [place] [id number] [place] [address] July, Closed nondisplaced fracture of scaphoid of left wrist, unspecified portion of scaphoid, initial encounter S62.002A [place] [id number] [place] [address] July, [place] [id number] [place] [address] July, Type 2 diabetes mellitus with diabetic neuropathy, unspecified E11.40 ; Emphysema, unspecified J43.9 ; Atherosclerotic heart disease of [place] coronary artery 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.10 ; [...] agents L24.89 and Hospital discharge follow-up Z09 [place] [id number] [place] [address] July, [place] [id number] [place] [address] July, Type 2 diabetes mellitus with diabetic neuropathy, unspecified E11.40 [facility], [place] [address] [address] July, Type 2 diabetes mellitus with diabetic neuropathy, unspecified E11.40 and Rheumatoid arthritis of left wrist without organ or system involvement with positive rheumatoid factor M05.732 [facility], [place] [id number] [address] July, [facility] [place] [id number] [place] [address] July, [facility] [place] [id number] [place] [address] Jun, [facility] [place] [address] [id number] [place] [address] Jun, [facility], [place] [address] [id number] [place] [address] Jun, 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 [facility] [place] [id number] [place] [address] Jun, [facility] [place] [id number] [place] [address] Jun, 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 [facility] [place] [id number] [address] Jun, [facility], [place] [id number] [address] Jun, [facility], [place] [id number] [address] Jun, Encounter for PPD test Z11.1 ; 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 M05.731 and Rheumatoid arthritis of left wrist without organ or system involvement with positive rheumatoid factor M05.732 [facility] [place] [address] [address] Jun, Type 2 diabetes mellitus with diabetic neuropathy, unspecified E11.40 [place] [id number] [place] [address] May, Type 2 diabetes mellitus with diabetic neuropathy, unspecified E11.40 ; Emphysema, unspecified J43.9 ; 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 M05.731 ; Rheumatoid arthritis of left wrist without organ or system involvement with positive rheumatoid factor M05.732 and Chronic pain G89.29 [place] [address] [address] May, [place] [address] [address] May, Swelling of hand joint M25.449 ; Ankle swelling M25.473 and Joint pain M25.50 [place] [address] [address] May, Emphysema, unspecified J43.9 [place] [address] [address] May, Gastroenteritis K52.9 and Hypertension I10 [place] [address] [address] Apr, [place] [address] [address] Apr, [place] [id number] [place] [address] Apr, [place] [address] [address] Apr, Type 2 diabetes mellitus with diabetic neuropathy, unspecified E11.40 ; Emphysema, unspecified J43.9 ; Atherosclerotic heart disease of [place] coronary artery 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.10 ; Migraine without aura, not intractable, with status migrainosus G43.001 ; Gastro-esophageal reflux disease without esophagitis K21.9 ; CAD (coronary artery disease) I25.10 ; Hypertension I10 ; Hyperlipemia E78.5 ; Allergic rhinitis J30.9 ; Neuropathy G62.9 ; Anxiety associated with depression F41.8 and Injury of left hand S69.92XA [place] [address] [address] Apr, [place] [address] [address] Apr, [place] [address] [address] Apr, Type 2 diabetes mellitus with diabetic neuropathy, unspecified E11.40 ; Emphysema, unspecified J43.9 ; Essential (primary) hypertension I10 ; Atherosclerotic heart disease of [place] coronary artery 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.10 ; Gastro-esophageal reflux disease without esophagitis K21.9 ; CAD (coronary artery disease) I25.10 ; Hyperlipemia E78.5 ; Hypertension I10 ; History of solitary pulmonary nodule Z87.898 ; Allergic rhinitis J30.9 ; Chronic pain G89.29 and Depression with anxiety F41.[address] [address] Mar, [address] [address] Mar, Allergic rhinitis J30.9 ; URI (upper respiratory infection) J06.9 and Other viral agents as the cause of diseases classified elsewhere B97.89 [facility] [id number] [place] [address] Feb, Acute nasopharyngitis [common cold] J00 and Acute diarrhea R19.[address] [address] Feb, Depression F32.[address] [address] Jan, Otitis media, right H66.[address] [address] Jan, [address] [place] [id number] [place] [address] Jan, Type 2 diabetes mellitus with diabetic neuropathy, unspecified E11.40 [place] [address] [address] Jan, [place] [address] [address] Jan, Hyperlipemia E78.5 [place] [address] [address] Jan, Type 2 diabetes mellitus with diabetic neuropathy, unspecified E11.40 ; Emphysema, unspecified J43.9 ; CAD (coronary artery disease) I25.10 and Hyperlipemia E78.5 [place] [address] [address] Dec, Allergic rhinitis J30.9 and Fungal infection B49 [place] [address] [address] Dec, [place] [address] [address] Dec, [place] [address] [address] Dec, Chest pain R07.9 ; CAD (coronary artery disease) I25.10 ; Hypertension I10 and Hyperlipemia E78.5 [place] [address] [address] Dec, Pain in thoracic spine M54.6 ; Gastro-esophageal reflux disease without esophagitis K21.9 ; Emphysema, unspecified J43.9 and Migraine without aura, not intractable, with status migrainosus G43.001 [place] [address] [address] Dec, [place] [address] [address] Nov, Influenza vaccine administered V04.81 [facility], [place] [address] [facility] [id number] [address] Nov, [facility] [place] [address] [place] [id number] [address] Sep, [facility] [place] [address] [id number] [address] Sep, [facility], [place] [id number] [place] [address] Sep, CAD (coronary artery disease) 414.00 and Diabetes type 2, uncontrolled 250.02 [place] [id number] [place] [address] Sep, CAD (coronary artery disease) 414.00 ; Diabetes type 2, uncontrolled 250.02 and Migraine 346.90 IMMUNIZATIONS No Known Immunizations SOCIAL HISTORY Never Assessed REASON FOR VISIT Referral PLAN OF CARE VITAL SIGNS MEDICATIONS Unknown Medications RESULTS No Results PROCEDURES No Known procedures INSTRUCTIONS MEDICATIONS ADMINISTERED No Known Medications MEDICAL (GENERAL) HISTORY Type Description Date Medical History COPD Medical History Type 2 Diabetes Medical History HTN Medical History Cardiac stents July 2010 post [facility]-stent to [facility] Medical History Rheumatoid Arthritis Medical History 04/2016---Echo- 60%//mild hypertrophy at the base of the septum, mild mitral regurg/ mild tricuspid regurg. 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
--- OUTSIDE RECORDS SUMMARY | 2018-08-23 16:47 | XMS REPORT ---
Author Author PANCHOROBCLAU Organization [facility] Address [address] [place] [address] Care Team Providers Care Building Services Technician Name Role Phone DELEONROB MoranELE Unavailable PROBLEMS Type Condition ICD9-CM Code [id number] Code Onset Dates Condition Status SNOMED Code Problem Neuropathy G62.9 Active 277098472 Problem Other hammer toe(s) (acquired), right foot M20.41 Active 757288951 Problem Other hammer toe(s) (acquired), left foot M20.42 Active 78141882 Problem Intractable migraine without status migrainosus, unspecified migraine type G43.919 Active 276927272 Problem Gastro-esophageal reflux disease without esophagitis K21.9 Active 178471674 Problem Elevated white blood cell count, unspecified D72.829 Active 721926708 Problem Hypertension I10 Active 56930652 Problem Hyperlipemia E78.5 Active 16644123 Problem Hammer toe of left foot M20.42 Active 169081225 Problem Tobacco abuse Z72.0 Active 137213879 Problem Other chronic pain G89.29 Active 99848582 Problem Atherosclerotic heart disease of [place] coronary artery 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.10 Active 579806071512600 Problem Allergic rhinitis J30.9 Active 80245534 Problem Anxiety associated with depression F41.8 Active 840285572 Problem Emphysema, unspecified J43.9 Active 51585134 Problem Type 2 diabetes mellitus with diabetic neuropathy, unspecified E11.40 Active 09028409 Problem Rheumatoid arthritis involving multiple sites with positive rheumatoid factor M05.79 Active 201326924 Problem Primary insomnia F51.01 Active 5277585 Problem Chronic pain G89.29 Active 65844766 Problem Periodontitis K05.30 Active 06650330 Problem Vitamin D deficiency E55.9 Active 09010285 Problem OAB (overactive bladder) N32.81 Active 961947582 Problem Dependence on nocturnal oxygen therapy Z99.81 Active [id number] ALLERGIES No Information ENCOUNTERS Encounter Location Date Diagnosis [facility] [address] [address] 16 Jan, 2018 [facility] [id number] [place] [address] Dec, [facility] [id number] [place] [address] 24 Nov, 2017 [facility] [id number] [place] [address] 07 Nov, 2017 Chronic pain G89.29 [facility] [id number] [place] [address] 06 Nov, 2017 Chronic pain G89.29 [facility] [id number] [place] [address] Oct, Dysuria R30.0 ; Intractable migraine without status migrainosus, unspecified migraine type G43.919 and Back pain at L4-L5 level M54.5 [facility] [id number] [place] [address] Oct, Orthostatic hypotension I95.1 [facility] [id number] [place] [address] Oct, Localized swelling of both lower legs R22.43 ; Onychomycosis B35.1 and Type 2 diabetes mellitus with diabetic neuropathy, unspecified E11.40 [facility] [place] [id number] [place] [address] Oct, [facility] [id number] [place] [address] Oct, Elevated white blood cell count, unspecified D72.829 [facility] [id number] [place] [address] Oct, Elevated white blood cell count, unspecified D72.829 [facility] [id number] [place] [address] Oct, Chronic pain G89.29 [facility] [id number] [place] [address] Oct, [facility] [id number] [place] [address] Oct, [facility] [id number] [place] [address] Oct, Orthostatic hypotension I95.1 ; Dizziness R42 and Neuropathy G62.9 [facility] [id number] [place] [address] Oct, Dizziness R42 ; Low back pain M54.5 ; Other chronic pain G89.29 ; Nausea R11.0 and Orthostatic hypotension I95.1 [facility] [id number] [place] [address] Sep, Rheumatoid arthritis involving multiple sites with positive rheumatoid factor M05.79 and Tobacco abuse Z72.0 [facility] [id number] [place] [address] Sep, Chronic pain G89.29 [facility] [address] [address] Aug, Type 2 diabetes mellitus with diabetic neuropathy, unspecified E11.40 ; Hypertension I10 ; Hyperlipemia E78.5 ; Gastro-esophageal reflux disease without esophagitis K21.9 ; Emphysema, unspecified J43.9 ; Anxiety associated with depression F41.8 ; Vitamin D deficiency E55.9 ; Chronic pain G89.29 ; Tobacco abuse Z72.0 ; Overweight (BMI 25.0-29.9) E66.3 ; Atherosclerotic heart disease of [place] coronary artery 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.10 ; OAB (overactive bladder) N32.81 and Primary insomnia F51.01 [facility] [place] [id number] [place] [address] July, [facility] [id number] [place] [phone] July, [facility] [address] [address] July, Chronic pain G89.29 [facility] [id number] [place] [address] July, [facility] [id number] [place] [address] July, Onychomycosis B35.1 ; Hammer toe of left foot M20.42 and Type 2 diabetes mellitus with diabetic neuropathy, unspecified E11.40 [facility] [id number] [place] [address] July, [facility] [id number] [place] [address] July, Chronic pain G89.29 and Neuropathy G62.9 [facility] [id number] [place] [address] July, [facility] [id number] [place] [address] July, [facility] [id number] [place] [address] Jun, [facility] [id number] [place] [address] Jun, Chronic pain G89.29 [facility] [id number] [place] [address] Jun, [facility] [id number] [place] [address] Jun, [facility] [id number] [place] [address] Jun, Visit for TB skin test Z11.1 [facility] [id number] [place] [address] Jun, [facility] [id number] [place] [address] Jun, [facility] [id number] [place] [address] Jun, Tobacco abuse Z72.0 and Rheumatoid arthritis involving multiple sites with positive rheumatoid factor M05.79 [facility] [id number] [place] [address] Jun, Anxiety F41.9 ; Acute non-recurrent maxillary sinusitis J01.00 and Chronic pain G89.29 [facility] [id number] [place] [address] Jun, [place] [address] [address] May, Rheumatoid arthritis involving multiple sites with positive rheumatoid factor M05.79 [facility] [id number] [place] [address] May, Chronic pain G89.29 [facility] [id number] [place] [address] May, [facility] [id number] [place] [phone] May, [facility] [id number] [place] [address] May, [facility] [id number] [place] [address] May, Type 2 diabetes mellitus with diabetic neuropathy, unspecified E11.40 [facility] [id number] [place] [address] May, Type 2 diabetes mellitus with diabetic neuropathy, unspecified E11.40 ; Emphysema, unspecified J43.9 ; Hypertension I10 ; Hyperlipemia E78.5 ; Vitamin D deficiency E55.9 ; Right medial knee pain M25.561 ; Controlled substance agreement signed Z79.899 ; Chronic pain G89.29 ; Allergic rhinitis J30.9 ; Anxiety associated with depression F41.8 ; Neuropathy G62.9 and Gastro- esophageal reflux disease without esophagitis K21.9 [facility] [id number] [place] [address] Apr, Chronic pain G89.29 [place] [place] [address] [address] 16 Apr, 2017 Other hammer toe(s) (acquired), left foot M20.42 ; Other hammer toe(s) (acquired), right foot M20.41 ; Type 2 diabetes mellitus with diabetic neuropathy, unspecified E11.40 and Onychomycosis B35.1 [place] [address] [address] 2017 Gastro-esophageal reflux disease without esophagitis K21.9 [place] [place] [address] [address] 02 Apr, 2017 Controlled substance agreement signed Z79.899 [place] [address] [address] Mar, Chronic pain G89.29 [place] [address] [address] Mar, Emphysema, unspecified J43.9 and Type 2 diabetes mellitus with diabetic neuropathy, unspecified E11.40 [facility] [id number] [place] [address] Mar, Dysuria R30.0 ; Vaginal candidiasis B37.3 and Acute nonintractable headache, unspecified headache type R51 [facility] [id number] [place] [address] Feb, Neuropathy G62.9 and Chronic pain G89.29 [place] [place] [address] [address] Feb, Gastro-esophageal reflux disease without esophagitis K21.9 [place] [address] [address] Feb, [facility] [id number] [place] [address] Feb, Rheumatoid arthritis involving multiple sites with positive rheumatoid factor M05.79 and COPD with acute exacerbation J44.1 [facility] [id number] [place] [address] 08 Feb, 2017 Vaginal odor N89.8 ; Vaginal irritation N89.8 ; Candidal dermatitis B37.2 and Screening breast examination Z12.31 [facility] [id number] [place] [address] Feb, [place] [address] [address] Feb, [facility] [id number] [place] [address] Feb, [facility] [id number] [place] [address] Feb, COPD with exacerbation J44.1 ; Tobacco abuse counseling Z71.6 ; Tobacco abuse Z72.0 ; Rheumatoid arthritis involving multiple sites with positive rheumatoid factor M05.79 and Hyperlipemia E78.5 [facility] [id number] [place] [address] Feb, [facility] [id number] [place] [phone] Jan, [facility] [id number] [place] [address] Jan, Chronic pain G89.29 [facility] [id number] [place] [phone] Jan, Dental examination Z01.20 [facility] [id number] [place] [address] 19 Jan, 2017 Back pain of lumbar region with sciatica M54.40 [facility] [id number] [place] [address] Jan, Acute bacterial conjunctivitis of both eyes H10.33 [facility] [id number] [place] [address] 02 Jan, 2017 Chronic pain G89.29 [place] [address] [address] Dec, Type 2 diabetes mellitus with diabetic neuropathy, unspecified E11.40 ; Hypertension I10 ; Hyperlipemia E78.5 ; Gastro-esophageal reflux disease without esophagitis K21.9 ; Anxiety associated with depression F41.8 ; Allergic rhinitis J30.9 ; Neuropathy G62.9 and Dependence on nocturnal oxygen therapy Z99.81 [place] [address] [address] Dec, [place] [address] [address] Dec, [place] [address] [address] Dec, Encounter for immunization Z23 [place] [address] [address] 05 Dec, 2016 Type 2 diabetes mellitus with diabetic neuropathy, unspecified E11.40 and Chronic pain G89.29 [place] [address] [address] Nov, Gastro-esophageal reflux disease without esophagitis K21.9 [place] [address] [address] Nov, Peripheral edema R60.9 and Chest pain in adult R07.9 [place] [address] [address] 07 Nov, 2016 Chronic pain G89.29 [place] [address] [address] Oct, [place] [place] [address] [address] Oct, [facility] [id number] [place] [address] Oct, 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 M05.731 [facility] [id number] [place] [phone] Oct, [facility] [id number] [place] [address] Oct, Acute exacerbation of chronic obstructive pulmonary disease (COPD) J44.1 and Canker sore K12.0 [facility] [id number] [place] [address] Oct, [facility] [id number] [place] [address] Oct, [facility] [id number] [place] [address] Oct, Chronic pain G89.29 [facility] [address] [id number] Oct, Dental examination Z01.20 [facility] [id number] [place] [address] Oct, Dental examination Z01.20 and Periodontitis K05.30 [facility] [id number] [place] [phone] Oct, Dental examination Z01.20 [facility] [id number] [place] [address] Sep, Abscess L02.91 [facility] [id number] [place] [address] Sep, Dental examination Z01.20 [facility] [id number] [place] [address] Sep, [facility] [id number] [place] [id number] 18 Syd, 2017 Dental examination Z01.20 and Dental caries K02.9 [facility] [place] [address] [place] [address] 18 Sep, 2016 Primary insomnia F51.01 and Anxiety associated with depression F41.8 [facility] [id number] [place] [address] 14 Sep, 2016 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 M05.731 [facility] [id number] [place] [address] Sep, Chronic pain G89.29 [address] [id number] [place] [address] Sep, Type 2 diabetes mellitus with diabetic neuropathy, unspecified E11.40 ; Emphysema, unspecified J43.9 ; Gastro-esophageal reflux disease without esophagitis K21.9 ; Hypertension I10 ; Hyperlipemia E78.5 ; Anxiety associated with depression F41.8 ; Chronic pain G89.29 ; Vitamin D deficiency E55.9 and Primary insomnia F51.01 [facility] [id number] [place] [address] 16 Aug, 2016 Anxiety associated with depression F41.8 [facility] [id number] [place] [address] 13 Aug, 2016 Chronic pain G89.29 and Neuropathy G62.9 [facility] [id number] [place] [address] Aug, Type 2 diabetes mellitus with diabetic neuropathy, unspecified E11.40 ; Rheumatoid arthritis involving multiple sites with positive rheumatoid factor M05.79 ; Vitamin D deficiency E55.9 ; Anxiety associated with depression F41.8 and Primary insomnia F51.01 [facility] [id number] [place] [address] July, Emphysema, unspecified J43.9 [facility] [id number] [place] [address] July, Allergic rhinitis J30.9 [place] [place] [address] [place] [address] July, Allergic rhinitis J30.9 ; Emphysema, unspecified J43.9 and 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 M05.731 [facility] [id number] [place] [address] July, Neuropathy G62.9 and Chronic pain G89.29 [facility] [id number] [place] [address] July, Rheumatoid arthritis involving multiple sites with positive rheumatoid factor M05.79 [place] [address] [address] Jun, [place] [address] [address] Jun, Neuropathy G62.9 and Chronic pain G89.29 [facility] [id number] [place] [address] May, Neuropathy G62.9 and Chronic pain G89.29 [facility] [id number] [place] [address] May, [place] [id number] [place] [address] May, [place] [place] [id number] [place] [address] May, Type 2 diabetes mellitus with diabetic [...] positive rheumatoid factor M05.732 [facility] [id number] [place] [address] 14 Apr, 2016 Chronic pain G89.29 [facility] [id number] [place] [address] Mar, Gastro-esophageal reflux disease without esophagitis K21.9 [facility] [id number] [place] [address] Mar, [facility] [id number] [place] [address] Mar, 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 M05.731 [facility] [id number] [place] [address] Mar, Chronic pain G89.29 [facility] [id number] [place] [address] Feb, Hyperlipemia E78.5 [facility] [id number] [place] [address] Feb, Abnormal breath sounds R06.89 ; COPD with exacerbation J44.1 and Fatigue, unspecified type R53.83 [facility] [id number] [place] [address] Feb, Neuropathy G62.9 ; Abnormal lung sounds R09.89 and Bronchitis J40 [facility] [id number] [place] [address] Feb, Bronchitis J40 [facility] [id number] [place] [address] Feb, Chronic pain G89.29 [facility] [id number] [place] [address] Jan, Type 2 diabetes mellitus with diabetic neuropathy, unspecified E11.40 ; 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 M05.731 and Hyperlipemia E78.5 [place] [address] [place] [address] Jan, 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 M05.731 [place] [id number] [place] [address] Jan, De Quervain's disease (radial styloid tenosynovitis) M65.4 ; Closed nondisplaced fracture of scaphoid of left wrist, unspecified portion of scaphoid, initial encounter S62.002A and Peripheral tear of medial meniscus of left knee, unspecified whether old or current tear, initial encounter S83.222A [place] [id number] [place] [address] Jan, Hypertension I10 ; Type 2 diabetes mellitus with diabetic neuropathy, unspecified E11.40 ; Hyperlipemia E78.5 ; Allergic rhinitis J30.9 ; Neuropathy G62.9 ; 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 M05.731 ; Acute non-recurrent maxillary sinusitis J01.00 and Chronic pain G89.29 [facility] [id number] [place] [address] Dec, [place] [place] [id number] [place] [address] Dec, [place] [id number] [place] [address] Dec, Type 2 diabetes mellitus with diabetic neuropathy, unspecified E11.40 ; Emphysema, unspecified J43.9 ; Gastro-esophageal reflux disease without esophagitis K21.9 ; Hypertension I10 ; Hyperlipemia E78.5 ; 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 M05.731 ; Elevated white blood cell count, unspecified D72.829 ; Acute non- recurrent frontal sinusitis J01.10 and Chronic pain G89.29 [place] [place] [id number] [place] [address] Nov, [place] [id number] [place] [address] Nov, Elevated white blood cell count, unspecified D72.829 ; Encounter for immunization Z23 ; 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 M05.731 ; Injury of left hand S69.92XA ; Pain in left knee M25.562 and Other chronic pain G89.29 [facility] [id number] [place] [address] Nov, [facility] [id number] [place] [address] Nov, [facility] [id number] [place] [address] Oct, [facility] [id number] [place] [address] Oct, Hyperlipemia E78.5 [facility] [id number] [place] [address] Oct, [place] [id number] [place] [address] Oct, Type 2 diabetes mellitus with diabetic neuropathy, unspecified E11.40 ; Neuropathy G62.9 ; Hypertension I10 ; Chronic pain G89.29 and Hyperlipemia E78.5 [place] [id number] [place] [address] Oct, Emphysema, unspecified J43.9 and Rheumatoid arthritis of left wrist without organ or system involvement with positive rheumatoid factor M05.732 [place] [id number] [place] [id number] Sep, Chronic pain syndrome G89.4 [place] [address] [address] [place] [id number] [place] [id number] Sep, [place] [address] [place] [id number] [place] [phone] Sep, [place] [address] [address] [place] [id number] [address] Sep, Closed nondisplaced fracture of scaphoid of left wrist, unspecified portion of scaphoid, initial encounter S62.002A [facility] [id number] [place] [address] Sep, Type 2 diabetes mellitus with diabetic neuropathy, unspecified E11.40 ; Hypertension I10 ; Hyperlipemia E78.5 and Acute non-recurrent maxillary sinusitis J01.00 [facility] [id number] [place] [address] Sep, [id number] [place] [address] Sep, [facility] [id number] [place] [address] Sep, [address] [id number] [place] [address] Sep, [facility] [id number] [place] [address] Aug, Epigastric pain R10.13 and Right upper quadrant pain R10.11 [place] [id number] [place] [address] Aug, Closed nondisplaced fracture of scaphoid of left wrist, unspecified portion of scaphoid, initial encounter S62.002A [address] [address] [id number] [place] [address] Aug, [facility] [id number] [place] [address] Aug, [facility] [id number] [place] [address] Aug, Shortness of breath R06.02 ; Epigastric pain R10.13 and Injury of left lower arm, initial encounter S59.912A [place] [id number] [place] [address] Aug, Coronary artery disease involving [place] heart with angina pectoris, unspecified vessel or lesion type I25.119 ; Pulmonary emphysema, unspecified emphysema type J43.9 and Snoring R06.83 [place] [address] [id number] [place] [address] Aug, [id number] [place] [address] Aug, Emphysema, unspecified J43.9 ; Atherosclerotic heart disease of [place] coronary artery 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.10 and Hypertension I10 [id number] [place] [address] July, [id number] [place] [address] July, Closed nondisplaced fracture of scaphoid of left wrist, unspecified portion of scaphoid, initial encounter S62.002A [place] [id number] [place] [address] July, [place] [id number] [place] [address] July, Type 2 diabetes mellitus with diabetic neuropathy, unspecified E11.40 ; Emphysema, unspecified J43.9 ; Atherosclerotic heart disease of [place] coronary artery 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.10 ; [...] agents L24.89 and Hospital discharge follow-up Z09 [id number] [place] [address] July, [id number] [place] [address] July, Type 2 diabetes mellitus with diabetic neuropathy, unspecified E11.40 [facility] [id number] [address] July, Type 2 diabetes mellitus with diabetic neuropathy, unspecified E11.40 and Rheumatoid arthritis of left wrist without organ or system involvement with positive rheumatoid factor M05.732 [facility] [id number] [address] July, [facility] [id number] [place] [address] July, [facility] [id number] [place] [address] Jun, [facility] [id number] [place] [address] Jun, [facility] [id number] [place] [address] Jun, 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 [facility] [id number] [place] [address] Jun, [facility] [id number] [place] [address] Jun, 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 [facility] [id number] [address] Jun, [facility] [id number] [address] Jun, [facility] [id number] [address] Jun, Encounter for PPD test Z11.1 ; 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 M05.731 and Rheumatoid arthritis of left wrist without organ or system involvement with positive rheumatoid factor M05.732 [facility] [id number] [address] Jun, Type 2 diabetes mellitus with diabetic neuropathy, unspecified E11.40 [place] [id number] [place] [address] May, Type 2 diabetes mellitus with diabetic neuropathy, unspecified E11.40 ; Emphysema, unspecified J43.9 ; 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 M05.731 ; Rheumatoid arthritis of left wrist without organ or system involvement with positive rheumatoid factor M05.732 and Chronic pain G89.29 [address] [address] [address] May, [address] [address] [address] May, Swelling of hand joint M25.449 ; Ankle swelling M25.473 and Joint pain M25.50 [place] [address] [address] May, Emphysema, unspecified J43.9 [address] [address] [address] May, Gastroenteritis K52.9 and Hypertension I10 [address] [address] [address] [address] Apr, [place] [address] [address] Apr, [place] [id number] [place] [address] Apr, [address] [address] [address] [address] Apr, Type 2 diabetes mellitus with diabetic neuropathy, unspecified E11.40 ; Emphysema, unspecified J43.9 ; Atherosclerotic heart disease of [place] coronary artery 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.10 ; Migraine without aura, not intractable, with status migrainosus G43.001 ; Gastro-esophageal reflux disease without esophagitis K21.9 ; CAD (coronary artery disease) I25.10 ; Hypertension I10 ; Hyperlipemia E78.5 ; Allergic rhinitis J30.9 ; Neuropathy G62.9 ; Anxiety associated with depression F41.8 and Injury of left hand S69.92XA [address] [address] [address] [address] Apr, [place] [address] [address] Apr, [place] [address] [address] Apr, Type 2 diabetes mellitus with diabetic neuropathy, unspecified E11.40 ; Emphysema, unspecified J43.9 ; Essential (primary) hypertension I10 ; Atherosclerotic heart disease of [place] coronary artery 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.10 ; Gastro-esophageal reflux disease without esophagitis K21.9 ; CAD (coronary artery disease) I25.10 ; Hyperlipemia E78.5 ; Hypertension I10 ; History of solitary pulmonary nodule Z87.898 ; Allergic rhinitis J30.9 ; Chronic pain G89.29 and Depression with anxiety F41.[address] [address] Mar, [address] [address] Mar, Allergic rhinitis J30.9 ; URI (upper respiratory infection) J06.9 and Other viral agents as the cause of diseases classified elsewhere B97.89 [facility] [id number] [place] [address] Feb, Acute nasopharyngitis [common cold] J00 and Acute diarrhea R19.[address] [address] Feb, Depression F32.[address] [address] Jan, Otitis media, right H66.[address] [address] Jan, [id number] [place] [address] Jan, Type 2 diabetes mellitus with diabetic neuropathy, unspecified E11.40 [address] [address] [address] Jan, [address] [address] [address] Jan, Hyperlipemia E78.5 [place] [address] [address] Jan, Type 2 diabetes mellitus with diabetic neuropathy, unspecified E11.40 ; Emphysema, unspecified J43.9 ; CAD (coronary artery disease) I25.10 and Hyperlipemia E78.5 [address] [place] [address] [address] Dec, Allergic rhinitis J30.9 and Fungal infection B49 [address] [address] [address] Dec, [address] [address] [address] [address] Dec, [address] [address] [address] Dec, Chest pain R07.9 ; CAD (coronary artery disease) I25.10 ; Hypertension I10 and Hyperlipemia E78.5 [place] [address] [address] Dec, Pain in thoracic spine M54.6 ; Gastro-esophageal reflux disease without esophagitis K21.9 ; Emphysema, unspecified J43.9 and Migraine without aura, not intractable, with status migrainosus G43.001 [place] [address] [address] Dec, [place] [address] [address] Nov, Influenza vaccine administered V04.81 [facility] [address] [facility] [id number] [address] Nov, [facility] [id number] [address] Sep, [facility] [id number] [address] Sep, [facility] [id number] [place] [address] Sep, CAD (coronary artery disease) 414.00 and Diabetes type 2, uncontrolled 250.02 [address] [id number] [place] [address] Sep, CAD (coronary artery disease) 414.00 ; Diabetes type 2, uncontrolled 250.02 and Migraine 346.90 IMMUNIZATIONS No Known Immunizations SOCIAL HISTORY Never Assessed REASON FOR VISIT Lab (walk-in) PLAN OF CARE VITAL SIGNS MEDICATIONS Unknown Medications RESULTS Name Result Date Reference Range CBC 2017-11-03 WHITE BLOOD CELL COUNT 12.4 3.8-10.8 RED BLOOD CELL COUNT 4.98 3.80-5.10 HEMOGLOBIN 14.4 11.7-15.5 HEMATOCRIT 43.3 35.0-45.0 MCV 86.9 80.0-100.0 MCH 28.9 27.0-33.0 MCHC 33.3 32.0-36.0 RDW 14.1 11.0-15.0 PLATELET COUNT 297 140-400 MPV 10.5 7.5-12.5 ABSOLUTE NEUTROPHILS [phone] ABSOLUTE LYMPHOCYTES 3497 850-3900 ABSOLUTE MONOCYTES 645 200-950 ABSOLUTE EOSINOPHILS 260 15-500 ABSOLUTE BASOPHILS 87 0-200 NEUTROPHILS 63.8 LYMPHOCYTES 28.2 MONOCYTES 5.2 EOSINOPHILS 2.1 BASOPHILS 0.7 PROCEDURES Procedure Date Ordered Result Body Site LAB NOT BILLED BY [facility] Nov 03, 2017 VENIPJUNAID, ROUTINE* Nov 03, 2017 INSTRUCTIONS MEDICATIONS ADMINISTERED No Known Medications MEDICAL (GENERAL) HISTORY Type Description Date Medical History COPD Medical History Type 2 Diabetes Medical History HTN Medical History Cardiac stents July 2010 post MS-stent to LAD Medical History Rheumatoid Arthritis Medical History 04/2016---Echo- 60%//mild hypertrophy at the base of the septum, mild mitral regurg/ mild tricuspid regurg. 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
--- OUTSIDE RECORDS SUMMARY | 2018-08-23 16:48 | XMS REPORT ---
Author Author DELEONCLAU Moran Organization [facility] Address [address] [place] [address] Care Team Providers Care Patch Finisher Name Role Phone DELEONCLAU Moran Unavailable PROBLEMS Type Condition ICD9-CM Code [id number] Code Onset Dates Condition Status SNOMED Code Problem Neuropathy G62.9 Active 123527481 Problem Other hammer toe(s) (acquired), right foot M20.41 Active 516464572 Problem Other hammer toe(s) (acquired), left foot M20.42 Active 29426618 Problem Intractable migraine without status migrainosus, unspecified migraine type G43.919 Active 834659316 Problem Gastro-esophageal reflux disease without esophagitis K21.9 Active 806133144 Problem Elevated white blood cell count, unspecified D72.829 Active 930816031 Problem Hypertension I10 Active 06250324 Problem Hyperlipemia E78.5 Active 67499720 Problem Hammer toe of left foot M20.42 Active 547991787 Problem Tobacco abuse Z72.0 Active 112883094 Problem Other chronic pain G89.29 Active 67262335 Problem Atherosclerotic heart disease of [place] coronary artery 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.10 Active 204321339711761 Problem Allergic rhinitis J30.9 Active 30775746 Problem Anxiety associated with depression F41.8 Active 858955549 Problem Emphysema, unspecified J43.9 Active 73630242 Problem Type 2 diabetes mellitus with diabetic neuropathy, unspecified E11.40 Active 47128533 Problem Rheumatoid arthritis involving multiple sites with positive rheumatoid factor M05.79 Active 884787941 Problem Primary insomnia F51.01 Active 9347279 Problem Chronic pain G89.29 Active 07318984 Problem Periodontitis K05.30 Active 95401151 Problem Vitamin D deficiency E55.9 Active 52617435 Problem OAB (overactive bladder) N32.81 Active 004297910 Problem Dependence on nocturnal oxygen therapy Z99.81 Active [id number] ALLERGIES Substance Reaction Event Type Date Status Sulfamethoxazole-Trimethoprim itching Drug Allergy Oct, Active Singulair dizziness Drug Allergy Oct, Active ENCOUNTERS Encounter Location Date Diagnosis [facility] [place] [id number] [place] [address] Jan, [facility] [id number] [place] [address] Dec, [facility] [address] [address] Nov, [facility] [place] [id number] [place] [address] Nov, Chronic pain G89.29 [facility] [place] [id number] [place] [address] 06 Nov, 2017 Chronic pain G89.29 [facility] [id number] [place] [address] Oct, Dysuria R30.0 ; Intractable migraine without status migrainosus, unspecified migraine type G43.919 and Back pain at L4-L5 level M54.5 [facility] [place] [id number] [place] [address] Oct, Orthostatic hypotension I95.1 [facility] [place] [id number] [place] [address] Oct, Localized swelling of both lower legs R22.43 ; Onychomycosis B35.1 and Type 2 diabetes mellitus with diabetic neuropathy, unspecified E11.40 [facility] [place] [id number] [place] [address] Oct, [facility] [place] [id number] [place] [address] Oct, Elevated white blood cell count, unspecified D72.829 [facility] [place] [id number] [place] [address] Oct, Elevated white blood cell count, unspecified D72.829 [place] [address] [place] [address] Oct, Chronic pain G89.29 [facility] [place] [id number] [place] [address] Oct, [facility] [id number] [place] [address] Oct, [facility] [place] [id number] [place] [address] Oct, Orthostatic hypotension I95.1 ; Dizziness R42 and Neuropathy G62.9 [facility] [address] [address] Oct, Dizziness R42 ; Low back pain M54.5 ; Other chronic pain G89.29 ; Nausea R11.0 and Orthostatic hypotension I95.1 [facility] [address] [address] Sep, Rheumatoid arthritis involving multiple sites with positive rheumatoid factor M05.79 and Tobacco abuse Z72.0 [facility] [place] [id number] [place] [address] Sep, Chronic pain G89.29 [facility] [place] [id number] [place] [address] Aug, Type 2 diabetes mellitus with diabetic neuropathy, unspecified E11.40 ; Hypertension I10 ; Hyperlipemia E78.5 ; Gastro-esophageal reflux disease without esophagitis K21.9 ; Emphysema, unspecified J43.9 ; Anxiety associated with depression F41.8 ; Vitamin D deficiency E55.9 ; Chronic pain G89.29 ; Tobacco abuse Z72.0 ; Overweight (BMI 25.0-29.9) E66.3 ; Atherosclerotic heart disease of [place] coronary artery 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.10 ; OAB (overactive bladder) N32.81 and Primary insomnia F51.01 [facility] [place] [id number] [place] [address] July, [facility] [address] [address] July, [facility] [id number] [place] [address] July, Chronic pain G89.29 [facility] [id number] [place] [address] July, [facility] [id number] [place] [address] July, Onychomycosis B35.1 ; Hammer toe of left foot M20.42 and Type 2 diabetes mellitus with diabetic neuropathy, unspecified E11.40 [facility] [id number] [place] [address] July, [facility] [id number] [place] [address] July, Chronic pain G89.29 and Neuropathy G62.9 [facility] [id number] [place] [address] July, [facility] [id number] [place] [address] July, [facility] [address] [place] [address] Jun, [facility] [address] [place] [address] Jun, Chronic pain G89.29 [facility] [address] [address] Jun, [facility] [id number] [place] [address] Jun, [facility] [address] [address] Jun, Visit for TB skin test Z11.1 [facility] [id number] [place] [address] Jun, [facility] [address] [place] [address] Jun, [place] [id number] [place] [address] Jun, Tobacco abuse Z72.0 and Rheumatoid arthritis involving multiple sites with positive rheumatoid factor M05.79 [facility] [id number] [place] [address] Jun, Anxiety F41.9 ; Acute non-recurrent maxillary sinusitis J01.00 and Chronic pain G89.29 [facility] [id number] [place] [address] Jun, [facility] [id number] [place] [address] May, Rheumatoid arthritis involving multiple sites with positive rheumatoid factor M05.79 [facility] [place] [id number] [place] [address] May, Chronic pain G89.29 [facility] [place] [id number] [place] [address] May, [facility] [place] [id number] [place] [address] May, [facility] [place] [address] [place] [address] May, [facility] [id number] [place] [address] May, Type 2 diabetes mellitus with diabetic neuropathy, unspecified E11.40 [facility] [place] [id number] [place] [address] May, Type 2 diabetes mellitus with diabetic neuropathy, unspecified E11.40 ; Emphysema, unspecified J43.9 ; Hypertension I10 ; Hyperlipemia E78.5 ; Vitamin D deficiency E55.9 ; Right medial knee pain M25.561 ; Controlled substance agreement signed Z79.899 ; Chronic pain G89.29 ; Allergic rhinitis J30.9 ; Anxiety associated with depression F41.8 ; Neuropathy G62.9 and Gastro- esophageal reflux disease without esophagitis K21.9 [facility] [id number] [place] [address] Apr, Chronic pain G89.29 [facility] [id number] [place] [address] Apr, Other hammer toe(s) (acquired), left foot M20.42 ; Other hammer toe(s) (acquired), right foot M20.41 ; Type 2 diabetes mellitus with diabetic neuropathy, unspecified E11.40 and Onychomycosis B35.1 [facility] [id number] [place] [address] Apr, Gastro-esophageal reflux disease without esophagitis K21.9 [facility] [address] [address] Apr, Controlled substance agreement signed Z79.899 [facility] [id number] [place] [address] Mar, Chronic pain G89.29 [facility] [id number] [place] [address] Mar, Emphysema, unspecified J43.9 and Type 2 diabetes mellitus with diabetic neuropathy, unspecified E11.40 [facility] [id number] [place] [address] Mar, Dysuria R30.0 ; Vaginal candidiasis B37.3 and Acute nonintractable headache, unspecified headache type R51 [place] [address] [address] Feb, Neuropathy G62.9 and Chronic pain G89.29 [place] [id number] [place] [address] Feb, Gastro-esophageal reflux disease without esophagitis K21.9 [facility] [id number] [place] [address] Feb, [facility] [id number] [place] [address] Feb, Rheumatoid arthritis involving multiple sites with positive rheumatoid factor M05.79 and COPD with acute exacerbation J44.1 [facility] [id number] [place] [address] Feb, Vaginal odor N89.8 ; Vaginal irritation N89.8 ; Candidal dermatitis B37.2 and Screening breast examination Z12.31 [place] [address] [address] Feb, [facility] [id number] [place] [address] Feb, [facility] [address] [address] Feb, [facility] [id number] [place] [address] Feb, COPD with exacerbation J44.1 ; Tobacco abuse counseling Z71.6 ; Tobacco abuse Z72.0 ; Rheumatoid arthritis involving multiple sites with positive rheumatoid factor M05.79 and Hyperlipemia E78.5 [facility] [id number] [place] [address] Feb, [facility] [id number] [place] [id number] Jan, [facility] [id number] [place] [address] Jan, Chronic pain G89.29 [facility] [id number] [place] [id number] Jan, Dental examination Z01.20 [facility] [id number] [place] [address] Jan, Back pain of lumbar region with sciatica M54.40 [facility] [id number] [place] [address] 15 Jan, 2017 Acute bacterial conjunctivitis of both eyes H10.33 [place] [address] [address] 02 Jan, 2017 Chronic pain G89.29 [place] [address] [address] Dec, Type 2 diabetes mellitus with diabetic neuropathy, unspecified E11.40 ; Hypertension I10 ; Hyperlipemia E78.5 ; Gastro-esophageal reflux disease without esophagitis K21.9 ; Anxiety associated with depression F41.8 ; Allergic rhinitis J30.9 ; Neuropathy G62.9 and Dependence on nocturnal oxygen therapy Z99.81 [place] [address] [address] Dec, [facility] [address] [address] Dec, [facility] [address] [address] Dec, Encounter for immunization Z23 [facility] [address] [address] 05 Dec, 2016 Type 2 diabetes mellitus with diabetic neuropathy, unspecified E11.40 and Chronic pain G89.29 [facility] [address] [address] Nov, Gastro-esophageal reflux disease without esophagitis K21.9 [facility] [address] [address] 11 Nov, 2016 Peripheral edema R60.9 and Chest pain in adult R07.9 [facility] [address] [address] 07 Nov, 2016 Chronic pain G89.29 [place] [address] [address] Oct, [facility] [address] [place] [address] Oct, [facility] [id number] [place] [address] Oct, 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 M05.731 [facility] [id number] [place] [address] Oct, [facility] [id number] [place] [address] Oct, Acute exacerbation of chronic obstructive pulmonary disease (COPD) J44.1 and Canker sore K12.0 [place] [id number] [place] [address] Oct, [facility] [id number] [place] [address] Oct, [facility] [place] [id number] [place] [address] Oct, Chronic pain G89.29 [facility] [address] [id number] Oct, Dental examination Z01.20 [facility] [id number] [place] [address] Oct, Dental examination Z01.20 and Periodontitis K05.30 [facility] [id number] [place] [id number] Oct, Dental examination Z01.20 [facility] [id number] [place] [address] Sep, Abscess L02.91 [facility] [id number] [place] [address] Sep, Dental examination Z01.20 [facility] [id number] [place] [address] Sep, [facility] [id number] [id number] 18 Sep, 2016 Dental examination Z01.20 and Dental caries K02.9 [place] [id number] [place] [address] Sep, Primary insomnia F51.01 and Anxiety associated with depression F41.8 [place] [id number] [place] [address] Sep, 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 M05.731 [place] [id number] [place] [address] Sep, Chronic pain G89.29 [facility] [id number] [place] [address] Sep, Type 2 diabetes mellitus with diabetic neuropathy, unspecified E11.40 ; Emphysema, unspecified J43.9 ; Gastro-esophageal reflux disease without esophagitis K21.9 ; Hypertension I10 ; Hyperlipemia E78.5 ; Anxiety associated with depression F41.8 ; Chronic pain G89.29 ; Vitamin D deficiency E55.9 and Primary insomnia F51.01 [address] [place] [address] 16 Aug, 2016 Anxiety associated with depression F41.8 [place] [address] [place] [address] Aug, Chronic pain G89.29 and Neuropathy G62.9 [facility] [address] [place] [address] Aug, Type 2 diabetes mellitus with diabetic neuropathy, unspecified E11.40 ; Rheumatoid arthritis involving multiple sites with positive rheumatoid factor M05.79 ; Vitamin D deficiency E55.9 ; Anxiety associated with depression F41.8 and Primary insomnia F51.01 [place] [address] [place] [address] July, Emphysema, unspecified J43.9 [facility] [place] [id number] [place] [address] July, Allergic rhinitis J30.9 [facility] [place] [id number] [place] [address] July, Allergic rhinitis J30.9 ; Emphysema, unspecified J43.9 and 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 M05.731 [facility] [place] [id number] [place] [address] July, Neuropathy G62.9 and Chronic pain G89.29 [facility] [place] [id number] [place] [address] July, Rheumatoid arthritis involving multiple sites with positive rheumatoid factor M05.79 [facility] [place] [id number] [place] [address] Jun, [facility] [place] [id number] [place] [address] Jun, Neuropathy G62.9 and Chronic pain G89.29 [facility] [place] [id number] [place] [address] May, Neuropathy G62.9 and Chronic pain G89.29 [facility] [id number] [place] [address] May, [facility] [place] [id number] [place] [address] May, [facility] [place] [id number] [place] [address] May, Type 2 diabetes mellitus with diabetic [...] system involvement with positive rheumatoid factor M05.732 [facility] [place] [id number] [place] [address] 14 Apr, 2016 Chronic pain G89.29 [facility] [id number] [place] [address] Mar, Gastro-esophageal reflux disease without esophagitis K21.9 [place] [address] [address] Mar, [facility] [address] [address] Mar, 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 M05.731 [facility] [id number] [place] [address] Mar, Chronic pain G89.29 [facility] [place] [address] [address] Feb, Hyperlipemia E78.5 [facility] [place] [address] [address] Feb, Abnormal breath sounds R06.89 ; COPD with exacerbation J44.1 and Fatigue, unspecified type R53.83 [facility] [place] [id number] [place] [address] Feb, Neuropathy G62.9 ; Abnormal lung sounds R09.89 and Bronchitis J40 [facility] [id number] [place] [address] Feb, Bronchitis J40 [place] [id number] [place] [address] Feb, Chronic pain G89.29 [facility] [place] [id number] [place] [address] Jan, Type 2 diabetes mellitus with diabetic neuropathy, unspecified E11.40 ; 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 M05.731 and Hyperlipemia E78.5 [facility] [place] [id number] [place] [address] Jan, 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 M05.731 [facility] [place] [id number] [place] [address] Jan, De Quervain's disease (radial styloid tenosynovitis) M65.4 ; Closed nondisplaced fracture of scaphoid of left wrist, unspecified portion of scaphoid, initial encounter S62.002A and Peripheral tear of medial meniscus of left knee, unspecified whether old or current tear, initial encounter S83.222A [facility] [place] [id number] [place] [address] Jan, Hypertension I10 ; Type 2 diabetes mellitus with diabetic neuropathy, unspecified E11.40 ; Hyperlipemia E78.5 ; Allergic rhinitis J30.9 ; Neuropathy G62.9 ; 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 M05.731 ; Acute non-recurrent maxillary sinusitis J01.00 and Chronic pain G89.29 [facility] [place] [id number] [place] [address] Dec, [facility] [place] [id number] [place] [address] Dec, [facility] [place] [id number] [place] [address] Dec, Type 2 diabetes mellitus with diabetic neuropathy, unspecified E11.40 ; Emphysema, unspecified J43.9 ; Gastro-esophageal reflux disease without esophagitis K21.9 ; Hypertension I10 ; Hyperlipemia E78.5 ; 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 M05.731 ; Elevated white blood cell count, unspecified D72.829 ; Acute non- recurrent frontal sinusitis J01.10 and Chronic pain G89.29 [facility] [address] [place] [address] Nov, [facility] [id number] [place] [address] Nov, Elevated white blood cell count, unspecified D72.829 ; Encounter for immunization Z23 ; 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 M05.731 ; Injury of left hand S69.92XA ; Pain in left knee M25.562 and Other chronic pain G89.29 [facility] [id number] [place] [address] Nov, [facility] [place] [address] [address] Nov, [facility] [id number] [place] [address] Oct, [facility] [id number] [place] [address] Oct, Hyperlipemia E78.5 [facility] [place] [id number] [place] [address] Oct, [facility] [place] [id number] [place] [address] Oct, Type 2 diabetes mellitus with diabetic neuropathy, unspecified E11.40 ; Neuropathy G62.9 ; Hypertension I10 ; Chronic pain G89.29 and Hyperlipemia E78.5 [facility] [place] [id number] [place] [address] Oct, Emphysema, unspecified J43.9 and Rheumatoid arthritis of left wrist without organ or system involvement with positive rheumatoid factor M05.732 [facility] [id number] [place] [id number] Sep, Chronic pain syndrome G89.4 [place] [id number] [place] [id number] Sep, [facility] [address] [place] [address] Sep, [facility] [id number] [place] [id number] Sep, Closed nondisplaced fracture of scaphoid of left wrist, unspecified portion of scaphoid, initial encounter S62.002A [facility] [id number] [place] [id number] Sep, Type 2 diabetes mellitus with diabetic neuropathy, unspecified E11.40 ; Hypertension I10 ; Hyperlipemia E78.5 and Acute non-recurrent maxillary sinusitis J01.00 [facility] [id number] [place] [address] Sep, [facility] [id number] [place] [address] Sep, [facility] [id number] [place] [address] Sep, [facility] [id number] [place] [address] Sep, [facility] [id number] [place] [address] Aug, Epigastric pain R10.13 and Right upper quadrant pain R10.11 [facility] [id number] [place] [address] Aug, Closed nondisplaced fracture of scaphoid of left wrist, unspecified portion of scaphoid, initial encounter S62.002A [facility] [id number] [place] [address] Aug, [facility] [id number] [place] [address] Aug, [facility] [id number] [place] [address] Aug, Shortness of breath R06.02 ; Epigastric pain R10.13 and Injury of left lower arm, initial encounter S59.912A [facility] [place] [id number] [place] [address] Aug, Coronary artery disease involving little traverse heart with angina pectoris, unspecified vessel or lesion type I25.119 ; Pulmonary emphysema, unspecified emphysema type J43.9 and Snoring R06.83 [facility] [id number] [place] [address] Aug, [facility] [place] [id number] [place] [address] Aug, Emphysema, unspecified J43.9 ; Atherosclerotic heart disease of little traverse coronary artery 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.10 and Hypertension I10 [facility] [place] [id number] [place] [address] July, [place] [address] [address] July, Closed nondisplaced fracture of scaphoid of left wrist, unspecified portion of scaphoid, initial encounter S62.002A [facility] [id number] [place] [address] July, [facility] [place] [id number] [place] [address] July, Type 2 diabetes mellitus with diabetic neuropathy, unspecified E11.40 ; Emphysema, unspecified J43.9 ; Atherosclerotic heart disease of [place] coronary artery 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.10 ; [...] agents L24.89 and Hospital discharge follow-up Z09 [facility] [id number] [place] [address] July, [place] [address] [address] July, Type 2 diabetes mellitus with diabetic neuropathy, unspecified E11.40 [facility] [id number] [place] [address] July, Type 2 diabetes mellitus with diabetic neuropathy, unspecified E11.40 and Rheumatoid arthritis of left wrist without organ or system involvement with positive rheumatoid factor M05.732 [facility] [id number] [place] [address] July, [facility] [id number] [place] [address] July, [facility] [id number] [place] [address] Jun, [facility] [id number] [place] [address] Jun, [facility] [id number] [place] [address] Jun, 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 [facility] [id number] [place] [address] Jun, [facility] [address] [place] [address] Jun, 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 [facility] [address] [address] Jun, [facility] [address] [address] Jun, [facility] [address] [place] [address] Jun, Encounter for PPD test Z11.1 ; 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 M05.731 and Rheumatoid arthritis of left wrist without organ or system involvement with positive rheumatoid factor M05.732 [facility] [id number] [place] [address] Jun, Type 2 diabetes mellitus with diabetic neuropathy, unspecified E11.40 [place] [address] [place] [id number] May, Type 2 diabetes mellitus with diabetic neuropathy, unspecified E11.40 ; Emphysema, unspecified J43.9 ; 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 M05.731 ; Rheumatoid arthritis of left wrist without organ or system involvement with positive rheumatoid factor M05.732 and Chronic pain G89.29 [place] [address] [address] May, [place] [address] [address] May, Swelling of hand joint M25.449 ; Ankle swelling M25.473 and Joint pain M25.50 [place] [address] [address] May, Emphysema, unspecified J43.9 [place] [address] [address] May, Gastroenteritis K52.9 and Hypertension I10 [place] [id number] [place] [address] Apr, [facility] [place] [id number] [place] [address] Apr, [place] [address] [address] Apr, [facility] [id number] [place] [address] Apr, Type 2 diabetes mellitus with diabetic neuropathy, unspecified E11.40 ; Emphysema, unspecified J43.9 ; Atherosclerotic heart disease of [place] coronary artery 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.10 ; Migraine without aura, not intractable, with status migrainosus G43.001 ; Gastro-esophageal reflux disease without esophagitis K21.9 ; CAD (coronary artery disease) I25.10 ; Hypertension I10 ; Hyperlipemia E78.5 ; Allergic rhinitis J30.9 ; Neuropathy G62.9 ; Anxiety associated with depression F41.8 and Injury of left hand S69.92XA [facility] [id number] [place] [address] Apr, [address] [address] Apr, [address] [address] Apr, Type 2 diabetes mellitus with diabetic neuropathy, unspecified E11.40 ; Emphysema, unspecified J43.9 ; Essential (primary) hypertension I10 ; Atherosclerotic heart disease of [place] coronary artery 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.10 ; Gastro-esophageal reflux disease without esophagitis K21.9 ; CAD (coronary artery disease) I25.10 ; Hyperlipemia E78.5 ; Hypertension I10 ; History of solitary pulmonary nodule Z87.898 ; Allergic rhinitis J30.9 ; Chronic pain G89.29 and Depression with anxiety F41.[address] [address] Mar, [place] [id number] [place] [address] Mar, Allergic rhinitis J30.9 ; URI (upper respiratory infection) J06.9 and Other viral agents as the cause of diseases classified elsewhere B97.89 [facility] [id number] [place] [address] Feb, Acute nasopharyngitis [common cold] J00 and Acute diarrhea R19.[address] [address] Feb, Depression F32.9 [id number] [place] [address] Jan, Otitis media, right H66.91 [place] [address] [id number] [place] [address] Jan, [place] [address] [address] Jan, Type 2 diabetes mellitus with diabetic neuropathy, unspecified E11.40 [place] [address] [address] Jan, [place] [address] [address] Jan, Hyperlipemia E78.5 [place] [address] [address] Jan, Type 2 diabetes mellitus with diabetic neuropathy, unspecified E11.40 ; Emphysema, unspecified J43.9 ; CAD (coronary artery disease) I25.10 and Hyperlipemia E78.[address] [address] Dec, Allergic rhinitis J30.9 and Fungal infection B49 [address] [address] Dec, [address] [address] Dec, [place] [address] [address] Dec, Chest pain R07.9 ; CAD (coronary artery disease) I25.10 ; Hypertension I10 and Hyperlipemia E78.5 [place] [id number] [place] [address] Dec, Pain in thoracic spine M54.6 ; Gastro-esophageal reflux disease without esophagitis K21.9 ; Emphysema, unspecified J43.9 and Migraine without aura, not intractable, with status migrainosus G43.[address] [address] Dec, [address] [id number] [address] Nov, Influenza vaccine administered V04.81 [facility] [place] [id number] [place] [address] Nov, [place] [address] [address] Sep, [place] [id number] [place] [address] Sep, [facility] [place] [id number] [place] [address] Sep, CAD (coronary artery disease) 414.00 and Diabetes type 2, uncontrolled 250.02 [place] [address] [place] [address] Sep, CAD (coronary artery disease) 414.00 ; Diabetes type 2, uncontrolled 250.02 and Migraine 346.90 IMMUNIZATIONS No Known Immunizations SOCIAL HISTORY Never Assessed REASON FOR VISIT Dizziness walkin f/u-----DBennettRN PLAN OF CARE Activity Details Follow Up 2 - 3 Days, 4 Weeks Reason:bp/chm VITAL SIGNS Height 66 in 2017-10-26 Weight 184 lbs 2017-10-26 Temperature 98.7 degrees Fahrenheit 2017-10-26 Heart Rate 80 bpm 2017-10-26 Respiratory Rate 20 2017-10-26 BMI 29.70 kg/m2 2017-10-26 Blood pressure systolic 90 mmHg 2017-10-26 Blood pressure diastolic 60 mmHg 2017-10-26 MEDICATIONS Medication Instructions Dosage Frequency Start Date End Date Duration Status Glucocard Expression Test - In Vitro 4 times a 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 test blood sugar May, Active Hydrocodone-Acetaminophen 7.5-325 MG Orally every 6 hours as needed 1 tablet as needed Sep, 28 days Active Trazodone HCl 50 MG TAKE ONE TABLET BY MOUTH ONCE DAILY AT BEDTIME NEEDED 30 Active Aleve 220 MG Orally every 12 hrs 1 tablet 12h Active Protonix 40 mg Orally Once a day 1 tablet 24h 90 Active Hydroxychloroquine Sulfate 200 MG TAKE ONE TABLET BY MOUTH ONCE DAILY WITH FOOD OR MILK 90 Active Albuterol Sulfate (2.5 MG/3ML) 0.083% Inhalation Three times a day 3 ml 8h Active Oxygen Active Nicotine 21 MG/24HR Transdermal Once a day 1 patch to skin 24h Feb, Active Metformin HCl 1000 MG TAKE ONE TABLET BY MOUTH TWICE DAILY WITH MEALS 30 Active Fish Oil 1200 MG Orally Once a day 1 capsule 24h Active Qnasl 80 MCG/ACT USE TWO SPRAYS IN EACH NOSTRIL ONCE DAILY 30 Active Quad Cane as directed May, Active Ventolin HFA 108 (90 Base) MCG/ACT INHALE TWO PUFFS BY MOUTH EVERY 4 HOURS NEEDED (MUST HAVE APPOINTMENT FOR REFILL) 17 Active Cetirizine HCl 10 Orally Once a day TAKE 1 TABLET BY MOUTH DAILY 24h Active Victoza 18 MG/3ML INJECT 1.8 MG SUBCUTANEOUSLY ONCE DAILY 30 Active Symbicort 160-4.5 MCG/ACT INHALE 2 PUFFS BY MOUTH TWICE DAILY. (NEED TO MAKE AN APPOINTMENT FOR REFILLS) 30 Active Sucralfate 1 GM TAKE ONE TABLET BY MOUTH EVERY 6 HOURS Active Depend Adjustable Underwear Lg 1 as directed 3 times a day use one depends three times per day as needed 8h May, Active Meclizine HCl 25 MG Orally Once a day 1 tablet as needed 24h Oct, 03 days Active Lisinopril 10 MG Orally Once a day 1 tablet 24h Oct, 30 day(s) Active Methotrexate 2.5 MG TAKE 10 TABLETS BY MOUTH ONCE WEEKLY 84 Active Metoprolol Tartrate 25 MG Orally Twice a day TAKE ONE half TABLET BY MOUTH TWICE DAILY 12h 30 days Active Citalopram Hydrobromide 20 MG TAKE ONE TABLET BY MOUTH ONCE DAILY 30 Active Baclofen 10 MG TAKE ONE TABLET BY MOUTH THREE TIMES DAILY WITH FOOD OR MILK 90 Active Aspirin EC Low Dose 81 MG TAKE ONE TABLET BY MOUTH ONCE DAILY 90 Active Folic Acid 1 MG TAKE ONE TABLET BY MOUTH ONCE DAILY 90 Active Atorvastatin Calcium 10 MG TAKE ONE TABLET BY MOUTH ONCE DAILY 30 Active Ondansetron HCl 4 MG Orally Twice a day 1 tablet 12h Oct, 03 days Active HydrOXYzine HCl 25 MG Orally every 8 hrs 1 tablet as needed 8h 30 Active Easy Touch Pen [place] 32G X 4 MM sq 4 times a day as directed 6h Sep, Active Lyrica 100 mg Orally Three times a day 1 capsule 8h Dec, 28 days Active Blood Glucose Monitor System w/Device as directed July, Active RESULTS No Results PROCEDURES Procedure Date Ordered Result Body Site LAB NOT BILLED BY [employer] Oct 26, 2017 VENIPUNCT, ROUTINE* Oct 26, 2017 INSTRUCTIONS MEDICATIONS ADMINISTERED No Known Medications MEDICAL (GENERAL) HISTORY Type Description Date Medical History COPD Medical History Type 2 Diabetes Medical History HTN Medical History Cardiac stents July 2010 post SC-stent to LAD Medical History Rheumatoid Arthritis Medical History 04/2016---Echo- 60%//mild hypertrophy at the base of the septum, mild mitral regurg/ mild tricuspid regurg. PAP about 10-15 mmHg Medical History 04/2016------Normal Lexiscan Medical History Elevated white blood cell count, unspecified Medical History Atherosclerotic heart disease of [place] coronary artery without angina pectoris Medical History [...]
--- OUTSIDE RECORDS SUMMARY | 2018-08-23 16:48 | XMS REPORT ---
Author Author PANCHOROBCLAU Organization [facility] Address [address] [place] [address] Care Team Providers Care Banquet Director Name Role Phone DELEONROB MoranELE Unavailable PROBLEMS Type Condition ICD9-CM Code [id number] Code Onset Dates Condition Status SNOMED Code Problem Neuropathy G62.9 Active 397468953 Problem Other hammer toe(s) (acquired), right foot M20.41 Active 937813466 Problem Other hammer toe(s) (acquired), left foot M20.42 Active 47239648 Problem Intractable migraine without status migrainosus, unspecified migraine type G43.919 Active 146843123 Problem Gastro-esophageal reflux disease without esophagitis K21.9 Active 968609722 Problem Elevated white blood cell count, unspecified D72.829 Active 949142409 Problem Hypertension I10 Active 95260767 Problem Hyperlipemia E78.5 Active 27308662 Problem Hammer toe of left foot M20.42 Active 019754133 Problem Tobacco abuse Z72.0 Active 130963993 Problem Other chronic pain G89.29 Active 20973224 Problem 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 Active 716519485530051 Problem Allergic rhinitis J30.9 Active 69922040 Problem Anxiety associated with depression F41.8 Active 053496596 Problem Emphysema, unspecified J43.9 Active 24862974 Problem Type 2 diabetes mellitus with diabetic neuropathy, unspecified E11.40 Active 21920605 Problem Rheumatoid arthritis involving multiple sites with positive rheumatoid factor M05.79 Active 382149892 Problem Primary insomnia F51.01 Active 9082405 Problem Chronic pain G89.29 Active 02396155 Problem Periodontitis K05.30 Active 44162621 Problem Vitamin D deficiency E55.9 Active 70711192 Problem OAB (overactive bladder) N32.81 Active 620782815 Problem Dependence on nocturnal oxygen therapy Z99.81 Active [id number] ALLERGIES No Information ENCOUNTERS Encounter Location Date Diagnosis [facility] [address] [address] 16 Jan, 2018 [facility] [id number] [place] [address] Dec, [facility] [id number] [place] [address] 24 Nov, 2017 [facility] [id number] [place] [address] 07 Nov, 2017 Chronic pain G89.29 [facility] [id number] [place] [address] 06 Nov, 2017 Chronic pain G89.29 [facility] [id number] [place] [address] Oct, Dysuria R30.0 ; Intractable migraine without status migrainosus, unspecified migraine type G43.919 and Back pain at L4-L5 level M54.5 [facility] [id number] [place] [address] Oct, Orthostatic hypotension I95.1 [facility] [id number] [place] [address] Oct, Localized swelling of both lower legs R22.43 ; Onychomycosis B35.1 and Type 2 diabetes mellitus with diabetic neuropathy, unspecified E11.40 [place] [address] [place] [address] Oct, [facility] [id number] [place] [address] Oct, Elevated white blood cell count, unspecified D72.829 [facility] [id number] [place] [address] Oct, Elevated white blood cell count, unspecified D72.829 [facility] [id number] [place] [address] Oct, Chronic pain G89.29 [facility] [address] [place] [address] Oct, [facility] [id number] [place] [address] Oct, [facility] [id number] [place] [address] Oct, Orthostatic hypotension I95.1 ; Dizziness R42 and Neuropathy G62.9 [facility] [id number] [place] [address] Oct, Dizziness R42 ; Low back pain M54.5 ; Other chronic pain G89.29 ; Nausea R11.0 and Orthostatic hypotension I95.1 [facility] [id number] [place] [address] Sep, Rheumatoid arthritis involving multiple sites with positive rheumatoid factor M05.79 and Tobacco abuse Z72.0 [facility] [id number] [place] [address] Sep, Chronic pain G89.29 [facility] [address] [address] Aug, Type 2 diabetes mellitus with diabetic neuropathy, unspecified E11.40 ; Hypertension I10 ; Hyperlipemia E78.5 ; Gastro-esophageal reflux disease without esophagitis K21.9 ; Emphysema, unspecified J43.9 ; Anxiety associated with depression F41.8 ; Vitamin D deficiency E55.9 ; Chronic pain G89.29 ; Tobacco abuse Z72.0 ; Overweight (BMI 25.0-29.9) E66.3 ; 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 ; OAB (overactive bladder) N32.81 and Primary insomnia F51.01 [place] [address] [place] [address] July, [facility] [id number] [place] [address] July, [facility] [address], [place] [address] July, Chronic pain G89.29 [facility] [id number] [place] [address] July, [facility] [id number] [place] [address] July, Onychomycosis B35.1 ; Hammer toe of left foot M20.42 and Type 2 diabetes mellitus with diabetic neuropathy, unspecified E11.40 [facility] [id number] [place] [address] July, [facility] [id number] [place] [address] July, Chronic pain G89.29 and Neuropathy G62.9 [facility] [id number] [place] [address] July, [facility] [id number] [place] [address] July, [facility] [id number] [place] [address] Jun, [facility] [id number] [place] [address] Jun, Chronic pain G89.29 [facility] [id number] [place] [address] Jun, [facility] [id number] [place] [address] Jun, [facility] [id number] [place] [address] Jun, Visit for TB skin test Z11.1 [facility] [id number] [place] [address] Jun, [facility] [id number] [place] [address] Jun, [facility] [id number] [place] [address] Jun, Tobacco abuse Z72.0 and Rheumatoid arthritis involving multiple sites with positive rheumatoid factor M05.79 [facility] [id number] [place] [address] Jun, Anxiety F41.9 ; Acute non-recurrent maxillary sinusitis J01.00 and Chronic pain G89.29 [facility] [id number] [place] [address] Jun, [place] [facility] [address] [address] May, Rheumatoid arthritis involving multiple sites with positive rheumatoid factor M05.79 [facility] [id number] [place] [address] May, Chronic pain G89.29 [facility] [id number] [place] [address] May, [facility] [id number] [place] [address] May, [facility] [id number] [place] [address] May, [facility] [id number] [place] [address] May, Type 2 diabetes mellitus with diabetic neuropathy, unspecified E11.40 [facility] [id number] [place] [address] May, Type 2 diabetes mellitus with diabetic neuropathy, unspecified E11.40 ; Emphysema, unspecified J43.9 ; Hypertension I10 ; Hyperlipemia E78.5 ; Vitamin D deficiency E55.9 ; Right medial knee pain M25.561 ; Controlled substance agreement signed Z79.899 ; Chronic pain G89.29 ; Allergic rhinitis J30.9 ; Anxiety associated with depression F41.8 ; Neuropathy G62.9 and Gastro- esophageal reflux disease without esophagitis K21.9 [facility] [id number] [place] [address] Apr, Chronic pain G89.29 [facility] [address] [address] 16 Apr, 2017 Other hammer toe(s) (acquired), left foot M20.42 ; Other hammer toe(s) (acquired), right foot M20.41 ; Type 2 diabetes mellitus with diabetic neuropathy, unspecified E11.40 and Onychomycosis B35.1 [place] [address] [address] 2017 Gastro-esophageal reflux disease without esophagitis K21.9 [facility] [address] [address] 02 Apr, 2017 Controlled substance agreement signed Z79.899 [place] [address] [address] Mar, Chronic pain G89.29 [facility] [address] [address] Mar, Emphysema, unspecified J43.9 and Type 2 diabetes mellitus with diabetic neuropathy, unspecified E11.40 [facility] [id number] [place] [address] Mar, Dysuria R30.0 ; Vaginal candidiasis B37.3 and Acute nonintractable headache, unspecified headache type R51 [facility] [id number] [place] [address] Feb, Neuropathy G62.9 and Chronic pain G89.29 [facility] [address] [address] Feb, Gastro-esophageal reflux disease without esophagitis K21.9 [place] [address] [address] Feb, [facility] [id number] [place] [address] Feb, Rheumatoid arthritis involving multiple sites with positive rheumatoid factor M05.79 and COPD with acute exacerbation J44.1 [facility] [id number] [place] [address] 08 Feb, 2017 Vaginal odor N89.8 ; Vaginal irritation N89.8 ; Candidal dermatitis B37.2 and Screening breast examination Z12.31 [facility] [id number] [place] [address] Feb, [place] [facility] [address] [address] Feb, [facility] [id number] [place] [address] Feb, [facility] [id number] [place] [address] Feb, COPD with exacerbation J44.1 ; Tobacco abuse counseling Z71.6 ; Tobacco abuse Z72.0 ; Rheumatoid arthritis involving multiple sites with positive rheumatoid factor M05.79 and Hyperlipemia E78.5 [place] [facility] [id number] [place] [address] Feb, [facility] [id number] [place] [phone] Jan, [facility] [id number] [place] [address] Jan, Chronic pain G89.29 [facility] [id number] [place] [id number] Jan, Dental examination Z01.20 [facility] [id number] [place] [address] 19 Jan, 2017 Back pain of lumbar region with sciatica M54.40 [facility] [id number] [place] [address] Jan, Acute bacterial conjunctivitis of both eyes H10.33 [facility] [id number] [place] [address] 02 Jan, 2017 Chronic pain G89.29 [place] [address] [address] Dec, Type 2 diabetes mellitus with diabetic neuropathy, unspecified E11.40 ; Hypertension I10 ; Hyperlipemia E78.5 ; Gastro-esophageal reflux disease without esophagitis K21.9 ; Anxiety associated with depression F41.8 ; Allergic rhinitis J30.9 ; Neuropathy G62.9 and Dependence on nocturnal oxygen therapy Z99.81 [place] [address] [address] Dec, [facility] [address] [address] Dec, [place] [address] [address] Dec, Encounter for immunization Z23 [facility] [address] [address] 05 Dec, 2016 Type 2 diabetes mellitus with diabetic neuropathy, unspecified E11.40 and Chronic pain G89.29 [place] [facility] [address] [address] Nov, Gastro-esophageal reflux disease without esophagitis K21.9 [place] [address] [address] Nov, Peripheral edema R60.9 and Chest pain in adult R07.9 [facility] [address] [address] 07 Nov, 2016 Chronic pain G89.29 [facility] [address] [address] Oct, [facility] [address] [address] Oct, [facility] [address] [place] [address] Oct, 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 M05.731 [facility] [address] [place] [address] Oct, [facility] [id number] [place] [address] Oct, Acute exacerbation of chronic obstructive pulmonary disease (COPD) J44.1 and Canker sore K12.0 [facility] [id number] [place] [address] Oct, [facility] [id number] [place] [address] Oct, [facility] [id number] [place] [address] Oct, Chronic pain G89.29 [facility] [address] [id number] Oct, Dental examination Z01.20 [facility] [id number] [place] [address] Oct, Dental examination Z01.20 and Periodontitis K05.30 [facility] [id number] [place] [id number] Oct, Dental examination Z01.20 [facility] [address] [place] [address] Sep, Abscess L02.91 [facility] [id number] [place] [address] Sep, Dental examination Z01.20 [facility] [id number] [place] [address] Sep, [facility] [id number] [place] [id number] 18 Syd, 2017 Dental examination Z01.20 and Dental caries K02.9 [place] [address] [place] [address] 18 Sep, 2016 Primary insomnia F51.01 and Anxiety associated with depression F41.8 [place] [facility] [id number] [place] [address] 14 Sep, 2016 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 M05.731 [facility] [id number] [place] [address] Sep, Chronic pain G89.29 [place] [id number] [place] [address] Sep, Type 2 diabetes mellitus with diabetic neuropathy, unspecified E11.40 ; Emphysema, unspecified J43.9 ; Gastro-esophageal reflux disease without esophagitis K21.9 ; Hypertension I10 ; Hyperlipemia E78.5 ; Anxiety associated with depression F41.8 ; Chronic pain G89.29 ; Vitamin D deficiency E55.9 and Primary insomnia F51.01 [facility] [id number] [place] [address] 16 Aug, 2016 Anxiety associated with depression F41.8 [facility] [id number] [place] [address] 13 Aug, 2016 Chronic pain G89.29 and Neuropathy G62.9 [place] [id number] [place] [address] Aug, Type 2 diabetes mellitus with diabetic neuropathy, unspecified E11.40 ; Rheumatoid arthritis involving multiple sites with positive rheumatoid factor M05.79 ; Vitamin D deficiency E55.9 ; Anxiety associated with depression F41.8 and Primary insomnia F51.01 [place] [facility] [id number] [place] [address] July, Emphysema, unspecified J43.9 [facility] [id number] [place] [address] July, Allergic rhinitis J30.9 [place] [facility] [address] [place] [address] July, Allergic rhinitis J30.9 ; Emphysema, unspecified J43.9 and 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 M05.731 [facility] [id number] [place] [address] July, Neuropathy G62.9 and Chronic pain G89.29 [place] [id number] [place] [address] July, Rheumatoid arthritis involving multiple sites with positive rheumatoid factor M05.79 [place] [facility] [address] [address] Jun, [place] [facility] [address] [address] Jun, Neuropathy G62.9 and Chronic pain G89.29 [facility] [id number] [place] [address] May, Neuropathy G62.9 and Chronic pain G89.29 [place] [id number] [place] [address] May, [place] [facility] [id number] [place] [address] May, [place] [facility] [id number] [place] [address] May, Type 2 diabetes mellitus with diabetic [...] system involvement with positive rheumatoid factor M05.732 [facility] [address] [place] [address] 14 Apr, 2016 Chronic pain G89.29 [facility] [id number] [place] [address] Mar, Gastro-esophageal reflux disease without esophagitis K21.9 [place] [facility] [id number] [place] [address] Mar, [place] [id number] [place] [address] Mar, 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 M05.731 [facility] [id number] [place] [address] Mar, Chronic pain G89.29 [facility] [id number] [place] [address] Feb, Hyperlipemia E78.5 [place] [facility] [id number] [place] [address] Feb, Abnormal breath sounds R06.89 ; COPD with exacerbation J44.1 and Fatigue, unspecified type R53.83 [place] [facility] [id number] [place] [address] Feb, Neuropathy G62.9 ; Abnormal lung sounds R09.89 and Bronchitis J40 [facility] [id number] [place] [address] Feb, Bronchitis J40 [facility] [id number] [place] [address] Feb, Chronic pain G89.29 [facility] [id number] [place] [address] Jan, Type 2 diabetes mellitus with diabetic neuropathy, unspecified E11.40 ; 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 M05.731 and Hyperlipemia E78.5 [place] [address] [place] [address] Jan, 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 M05.731 [place] [id number] [place] [address] Jan, De Quervain's disease (radial styloid tenosynovitis) M65.4 ; Closed nondisplaced fracture of scaphoid of left wrist, unspecified portion of scaphoid, initial encounter S62.002A and Peripheral tear of medial meniscus of left knee, unspecified whether old or current tear, initial encounter S83.222A [place] [id number] [place] [address] Jan, Hypertension I10 ; Type 2 diabetes mellitus with diabetic neuropathy, unspecified E11.40 ; Hyperlipemia E78.5 ; Allergic rhinitis J30.9 ; Neuropathy G62.9 ; 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 M05.731 ; Acute non-recurrent maxillary sinusitis J01.00 and Chronic pain G89.29 [place] [id number] [place] [address] Dec, [place] [id number] [place] [address] Dec, [place] [id number] [place] [address] Dec, Type 2 diabetes mellitus with diabetic neuropathy, unspecified E11.40 ; Emphysema, unspecified J43.9 ; Gastro-esophageal reflux disease without esophagitis K21.9 ; Hypertension I10 ; Hyperlipemia E78.5 ; 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 M05.731 ; Elevated white blood cell count, unspecified D72.829 ; Acute non- recurrent frontal sinusitis J01.10 and Chronic pain G89.29 [place] [id number] [place] [address] Nov, [place] [address] [place] [address] Nov, Elevated white blood cell count, unspecified D72.829 ; Encounter for immunization Z23 ; 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 M05.731 ; Injury of left hand S69.92XA ; Pain in left knee M25.562 and Other chronic pain G89.29 [place] [id number] [place] [address] Nov, [place] [facility] [id number] [place] [address] Nov, [place] [facility] [id number] [place] [address] Oct, [place] [facility] [id number] [place] [address] Oct, Hyperlipemia E78.5 [place] [facility] [id number] [place] [address] Oct, [place] [facility] [id number] [place] [address] Oct, Type 2 diabetes mellitus with diabetic neuropathy, unspecified E11.40 ; Neuropathy G62.9 ; Hypertension I10 ; Chronic pain G89.29 and Hyperlipemia E78.5 [place] [address] [place] [address] Oct, Emphysema, unspecified J43.9 and Rheumatoid arthritis of left wrist without organ or system involvement with positive rheumatoid factor M05.732 [place] [address] [place] [address] Sep, Chronic pain syndrome G89.4 [place] [address] [place] [id number] [place] [phone] Sep, [place] [address] [place] [id number] [place] [phone] Sep, [place] [address] [place] [id number] [address] Sep, Closed nondisplaced fracture of scaphoid of left wrist, unspecified portion of scaphoid, initial encounter S62.002A [facility] [address] [place] [id number] [place] [phone] Sep, Type 2 diabetes mellitus with diabetic neuropathy, unspecified E11.40 ; Hypertension I10 ; Hyperlipemia E78.5 and Acute non-recurrent maxillary sinusitis J01.00 [facility] [address] [place] [id number] [place] [phone] Sep, [place] [address] [place] [id number] [place] [phone] Sep, [facility] [address] [place] [id number] [place] [phone] Sep, [place] [address] [place] [id number] [place] [phone] Sep, [facility] [address] [place] [id number] [place] [address] [address] Aug, Epigastric pain R10.13 and Right upper quadrant pain R10.11 [place] [id number] [place] [address] Aug, Closed nondisplaced fracture of scaphoid of left wrist, unspecified portion of scaphoid, initial encounter S62.002A [place] [id number] [place] [address] Aug, [facility] [id number] [place] [address] Aug, [facility] [id number] [place] [address] Aug, Shortness of breath R06.02 ; Epigastric pain R10.13 and Injury of left lower arm, initial encounter S59.912A [place] [id number] [place] [address] Aug, Coronary artery disease involving saxman heart with angina pectoris, unspecified vessel or lesion type I25.119 ; Pulmonary emphysema, unspecified emphysema type J43.9 and Snoring R06.83 [place] [id number] [place] [address] Aug, [place] [id number] [place] [address] Aug, Emphysema, unspecified J43.9 ; 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 and Hypertension I10 [place] [id number] [place] [address] July, [place] [id number] [place] [address] July, Closed nondisplaced fracture of scaphoid of left wrist, unspecified portion of scaphoid, initial encounter S62.002A [place] [id number] [place] [address] July, [place] [id number] [place] [address] July, Type 2 diabetes mellitus with diabetic neuropathy, unspecified E11.40 ; Emphysema, unspecified J43.9 ; 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 ; [...] agents L24.89 and Hospital discharge follow-up Z09 [place] [id number] [place] [address] July, [place] [id number] [place] [address] July, Type 2 diabetes mellitus with diabetic neuropathy, unspecified E11.40 [facility] [address] [address] July, Type 2 diabetes mellitus with diabetic neuropathy, unspecified E11.40 and Rheumatoid arthritis of left wrist without organ or system involvement with positive rheumatoid factor M05.732 [facility] [address] [address] July, [facility] [id number] [place] [address] July, [facility] [id number] [place] [address] Jun, [facility] [id number] [place] [address] Jun, [facility] [id number] [place] [address] Jun, 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 [facility] [id number] [place] [address] Jun, [facility] [id number] [place] [address] Jun, 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 [facility] [address] [address] Jun, [facility] [address] [address] Jun, [facility] [address] [place] [address] Jun, Encounter for PPD test Z11.1 ; 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 M05.731 and Rheumatoid arthritis of left wrist without organ or system involvement with positive rheumatoid factor M05.732 [facility] [address] [address] Jun, Type 2 diabetes mellitus with diabetic neuropathy, unspecified E11.40 [place] [id number] [place] [address] May, Type 2 diabetes mellitus with diabetic neuropathy, unspecified E11.40 ; Emphysema, unspecified J43.9 ; 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 M05.731 ; Rheumatoid arthritis of left wrist without organ or system involvement with positive rheumatoid factor M05.732 and Chronic pain G89.29 [place] [address] [address] May, [place] [address] [address] May, Swelling of hand joint M25.449 ; Ankle swelling M25.473 and Joint pain M25.50 [place] [address] [address] May, Emphysema, unspecified J43.9 [place] [address] [address] May, Gastroenteritis K52.9 and Hypertension I10 [place] [address] [address] Apr, [place] [address] [address] Apr, [place] [id number] [place] [address] Apr, [place] [address] [address] Apr, Type 2 diabetes mellitus with diabetic neuropathy, unspecified E11.40 ; Emphysema, unspecified J43.9 ; 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 ; Migraine without aura, not intractable, with status migrainosus G43.001 ; Gastro-esophageal reflux disease without esophagitis K21.9 ; CAD (coronary artery disease) I25.10 ; Hypertension I10 ; Hyperlipemia E78.5 ; Allergic rhinitis J30.9 ; Neuropathy G62.9 ; Anxiety associated with depression F41.8 and Injury of left hand S69.92XA [place] [address] [address] Apr, [place] [address] [address] Apr, [place] [address] [address] Apr, Type 2 diabetes mellitus with diabetic neuropathy, unspecified E11.40 ; Emphysema, unspecified J43.9 ; Essential (primary) hypertension I10 ; 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 ; Gastro-esophageal reflux disease without esophagitis K21.9 ; CAD (coronary artery disease) I25.10 ; Hyperlipemia E78.5 ; Hypertension I10 ; History of solitary pulmonary nodule Z87.898 ; Allergic rhinitis J30.9 ; Chronic pain G89.29 and Depression with anxiety F41.[address] [address] Mar, [address] [address] Mar, Allergic rhinitis J30.9 ; URI (upper respiratory infection) J06.9 and Other viral agents as the cause of diseases classified elsewhere B97.89 [facility] [id number] [place] [address] Feb, Acute nasopharyngitis [common cold] J00 and Acute diarrhea R19.[address] [address] Feb, Depression F32.[address] [address] Jan, Otitis media, right H66.[address] [address] Jan, [address] [id number] [place] [address] Jan, Type 2 diabetes mellitus with diabetic neuropathy, unspecified E11.40 [place] [address] [address] Jan, [place] [address] [address] Jan, Hyperlipemia E78.5 [place] [address] [address] Jan, Type 2 diabetes mellitus with diabetic neuropathy, unspecified E11.40 ; Emphysema, unspecified J43.9 ; CAD (coronary artery disease) I25.10 and Hyperlipemia E78.5 [place] [address] [address] Dec, Allergic rhinitis J30.9 and Fungal infection B49 [place] [address] [address] Dec, [place] [address] [address] Dec, [place] [address] [address] Dec, Chest pain R07.9 ; CAD (coronary artery disease) I25.10 ; Hypertension I10 and Hyperlipemia E78.5 [place] [address] [address] Dec, Pain in thoracic spine M54.6 ; Gastro-esophageal reflux disease without esophagitis K21.9 ; Emphysema, unspecified J43.9 and Migraine without aura, not intractable, with status migrainosus G43.001 [place] [address] [address] Dec, [place] [address] [address] Nov, Influenza vaccine administered V04.81 [facility] [address] [facility] [id number] [address] Nov, [facility] [id number] [address] Sep, [facility] [id number] [address] Sep, [facility] [id number] [place] [address] Sep, CAD (coronary artery disease) 414.00 and Diabetes type 2, uncontrolled 250.02 [place] [id number] [place] [address] Sep, CAD (coronary artery disease) 414.00 ; Diabetes type 2, uncontrolled 250.02 and Migraine 346.90 IMMUNIZATIONS No Known Immunizations SOCIAL HISTORY Never Assessed REASON FOR VISIT PLAN OF CARE VITAL SIGNS MEDICATIONS Unknown [...] unspecified Medical History Atherosclerotic heart disease of saxman coronary artery without angina pectoris Medical History [...]
--- OUTSIDE RECORDS SUMMARY | 2018-08-23 16:49 | XMS REPORT ---
Author Author JESSY HILL Organization [facility] Address [address] [place] [address] Care Team Providers Care Divisional Merchandising Manager Name Role Phone JESSY HILL Unavailable PROBLEMS Type Condition ICD9-CM Code [id number] Code Onset Dates Condition Status SNOMED Code Problem Neuropathy G62.9 Active 841263353 Problem Other hammer toe(s) (acquired), right foot M20.41 Active 079582950 Problem Other hammer toe(s) (acquired), left foot M20.42 Active 84303301 Problem Intractable migraine without status migrainosus, unspecified migraine type G43.919 Active 292113224 Problem Gastro-esophageal reflux disease without esophagitis K21.9 Active 073623591 Problem Elevated white blood cell count, unspecified D72.829 Active 766427277 Problem Hypertension I10 Active 98433843 Problem Hyperlipemia E78.5 Active 08794844 Problem Hammer toe of left foot M20.42 Active 240351014 Problem Tobacco abuse Z72.0 Active 866400167 Problem Other chronic pain G89.29 Active 37458630 Problem Atherosclerotic heart disease of [place] coronary artery 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.10 Active 336054860130843 Problem Allergic rhinitis J30.9 Active 43544820 Problem Anxiety associated with depression F41.8 Active 511192794 Problem Emphysema, unspecified J43.9 Active 17966267 Problem Type 2 diabetes mellitus with diabetic neuropathy, unspecified E11.40 Active 34088751 Problem Rheumatoid arthritis involving multiple sites with positive rheumatoid factor M05.79 Active 361472185 Problem Primary insomnia F51.01 Active 3554163 Problem Chronic pain G89.29 Active 47776971 Problem Periodontitis K05.30 Active 60537760 Problem Vitamin D deficiency E55.9 Active 76958866 Problem OAB (overactive bladder) N32.81 Active 639751242 Problem Dependence on nocturnal oxygen therapy Z99.81 Active [id number] ALLERGIES Substance Reaction Event Type Date Status Sulfamethoxazole-Trimethoprim itching Drug Allergy Oct, Active Singulair dizziness Drug Allergy Oct, Active ENCOUNTERS Encounter Location Date Diagnosis [facility] [id number] [place] [address] Jan, [facility] [id number] [place] [address] Dec, [facility] [id number] [place] [address] Nov, [facility] [id number] [place] [address] Nov, Chronic pain G89.29 [facility] [id number] [place] [address] 06 Nov, 2017 Chronic pain G89.29 [facility] [id number] [place] [address] Oct, Dysuria R30.0 ; Intractable migraine without status migrainosus, unspecified migraine type G43.919 and Back pain at L4-L5 level M54.5 [facility] [facility] [id number] [place] [address] Oct, Orthostatic hypotension I95.1 [facility] [id number] [place] [address] Oct, Localized swelling of both lower legs R22.43 ; Onychomycosis B35.1 and Type 2 diabetes mellitus with diabetic neuropathy, unspecified E11.40 [facility] [id number] [place] [address] Oct, [facility] [id number] [place] [address] Oct, Elevated white blood cell count, unspecified D72.829 [facility] [id number] [place] [address] Oct, Elevated white blood cell count, unspecified D72.829 [facility] [id number] [place] [address] Oct, Chronic pain G89.29 [facility] [id number] [place] [address] Oct, [facility] [id number] [place] [address] Oct, [facility] [id number] [place] [address] Oct, Orthostatic hypotension I95.1 ; Dizziness R42 and Neuropathy G62.9 [facility] [id number] [place] [address] Oct, Dizziness R42 ; Low back pain M54.5 ; Other chronic pain G89.29 ; Nausea R11.0 and Orthostatic hypotension I95.1 [place] [address] [address] Sep, Rheumatoid arthritis involving multiple sites with positive rheumatoid factor M05.79 and Tobacco abuse Z72.0 [facility] [id number] [place] [address] Sep, Chronic pain G89.29 [facility] [id number] [place] [address] Aug, Type 2 diabetes mellitus with diabetic neuropathy, unspecified E11.40 ; Hypertension I10 ; Hyperlipemia E78.5 ; Gastro-esophageal reflux disease without esophagitis K21.9 ; Emphysema, unspecified J43.9 ; Anxiety associated with depression F41.8 ; Vitamin D deficiency E55.9 ; Chronic pain G89.29 ; Tobacco abuse Z72.0 ; Overweight (BMI 25.0-29.9) E66.3 ; Atherosclerotic heart disease of [place] coronary artery 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.10 ; OAB (overactive bladder) N32.81 and Primary insomnia F51.01 [facility] [id number] [place] [address] July, [facility] [address] [address] July, [facility] [id number] [place] [address] July, Chronic pain G89.29 [facility] [id number] [place] [address] July, [facility] [id number] [place] [address] July, Onychomycosis B35.1 ; Hammer toe of left foot M20.42 and Type 2 diabetes mellitus with diabetic neuropathy, unspecified E11.40 [facility] [id number] [place] [address] July, [facility] [id number] [place] [address] July, Chronic pain G89.29 and Neuropathy G62.9 [facility] [id number] [place] [address] July, [facility] [id number] [place] [address] July, [facility] [id number] [place] [address] Jun, [facility] [id number] [place] [address] Jun, Chronic pain G89.29 [facility] [address] [address] Jun, [facility] [id number] [place] [address] Jun, [facility] [address] [address] Jun, Visit for TB skin test Z11.1 [facility] [id number] [place] [address] Jun, [facility] [id number] [place] [address] Jun, [place] [id number] [place] [address] Jun, Tobacco abuse Z72.0 and Rheumatoid arthritis involving multiple sites with positive rheumatoid factor M05.79 [place] [address] [address] Jun, Anxiety F41.9 ; Acute non-recurrent maxillary sinusitis J01.00 and Chronic pain G89.29 [place] [id number] [place] [address] Jun, [place] [address] [address] May, Rheumatoid arthritis involving multiple sites with positive rheumatoid factor M05.79 [facility] [id number] [place] [address] May, Chronic pain G89.29 [facility] [id number] [place] [address] May, [facility] [id number] [place] [address] May, [place] [facility] [id number] [place] [address] May, [facility] [id number] [place] [address] May, Type 2 diabetes mellitus with diabetic neuropathy, unspecified E11.40 [place] [id number] [place] [address] May, Type 2 diabetes mellitus with diabetic neuropathy, unspecified E11.40 ; Emphysema, unspecified J43.9 ; Hypertension I10 ; Hyperlipemia E78.5 ; Vitamin D deficiency E55.9 ; Right medial knee pain M25.561 ; Controlled substance agreement signed Z79.899 ; Chronic pain G89.29 ; Allergic rhinitis J30.9 ; Anxiety associated with depression F41.8 ; Neuropathy G62.9 and Gastro- esophageal reflux disease without esophagitis K21.9 [place] [id number] [place] [address] Apr, Chronic pain G89.29 [place] [address] [address] 16 Apr, 2017 Other hammer toe(s) (acquired), left foot M20.42 ; Other hammer toe(s) (acquired), right foot M20.41 ; Type 2 diabetes mellitus with diabetic neuropathy, unspecified E11.40 and Onychomycosis B35.1 [place] [id number] [place] [address] Apr, Gastro-esophageal reflux disease without esophagitis K21.9 [place] [address] [address] Apr, Controlled substance agreement signed Z79.899 [place] [address] [address] Mar, Chronic pain G89.29 [facility] [id number] [place] [address] Mar, Emphysema, unspecified J43.9 and Type 2 diabetes mellitus with diabetic neuropathy, unspecified E11.40 [facility] [id number] [place] [address] Mar, Dysuria R30.0 ; Vaginal candidiasis B37.3 and Acute nonintractable headache, unspecified headache type R51 [place] [address] [address] Feb, Neuropathy G62.9 and Chronic pain G89.29 [place] [id number] [place] [address] Feb, Gastro-esophageal reflux disease without esophagitis K21.9 [facility] [id number] [place] [address] Feb, [facility] [id number] [place] [address] Feb, Rheumatoid arthritis involving multiple sites with positive rheumatoid factor M05.79 and COPD with acute exacerbation J44.1 [facility] [id number] [place] [address] Feb, Vaginal odor N89.8 ; Vaginal irritation N89.8 ; Candidal dermatitis B37.2 and Screening breast examination Z12.31 [place] [id number] [place] [address] Feb, [facility] [id number] [place] [address] Feb, [facility] [id number] [place] [address] Feb, [facility] [id number] [place] [address] Feb, COPD with exacerbation J44.1 ; Tobacco abuse counseling Z71.6 ; Tobacco abuse Z72.0 ; Rheumatoid arthritis involving multiple sites with positive rheumatoid factor M05.79 and Hyperlipemia E78.5 [facility] [id number] [place] [address] Feb, [facility] [id number] [place] [id number] Jan, [facility] [id number] [place] [address] Jan, Chronic pain G89.29 [facility] [id number] [place] [id number] Jan, Dental examination Z01.20 [facility] [id number] [place] [address] Jan, Back pain of lumbar region with sciatica M54.40 [facility] [id number] [place] [address] 15 Jan, 2017 Acute bacterial conjunctivitis of both eyes H10.33 [facility] [address] [address] 02 Jan, 2017 Chronic pain G89.29 [place] [address] [address] Dec, Type 2 diabetes mellitus with diabetic neuropathy, unspecified E11.40 ; Hypertension I10 ; Hyperlipemia E78.5 ; Gastro-esophageal reflux disease without esophagitis K21.9 ; Anxiety associated with depression F41.8 ; Allergic rhinitis J30.9 ; Neuropathy G62.9 and Dependence on nocturnal oxygen therapy Z99.81 [place] [address] [address] Dec, [facility] [address] [address] Dec, [place] [address] [address] Dec, Encounter for immunization Z23 [place] [address] [address] 05 Dec, 2016 Type 2 diabetes mellitus with diabetic neuropathy, unspecified E11.40 and Chronic pain G89.29 [place] [address] [address] Nov, Gastro-esophageal reflux disease without esophagitis K21.9 [place] [address] [address] 11 Nov, 2016 Peripheral edema R60.9 and Chest pain in adult R07.9 [facility] [facility] [address] [address] 07 Nov, 2016 Chronic pain G89.29 [place] [address] [address] Oct, [facility] [id number] [place] [address] Oct, [facility] [id number] [place] [address] Oct, 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 M05.731 [facility] [id number] [place] [address] Oct, [facility] [id number] [place] [address] Oct, Acute exacerbation of chronic obstructive pulmonary disease (COPD) J44.1 and Canker sore K12.0 [place] [id number] [place] [address] Oct, [facility] [id number] [place] [address] Oct, [facility] [address] [address] Oct, Chronic pain G89.29 [facility] [address] [id number] Oct, Dental examination Z01.20 [facility] [id number] [place] [address] Oct, Dental examination Z01.20 and Periodontitis K05.30 [facility] [id number] [place] [id number] Oct, Dental examination Z01.20 [facility] [id number] [place] [address] Sep, Abscess L02.91 [facility] [id number] [place] [address] Sep, Dental examination Z01.20 [facility] [id number] [place] [address] Sep, [facility] [id number] [id number] Sep, Dental examination Z01.20 and Dental caries K02.9 [id number] [place] [address] Sep, Primary insomnia F51.01 and Anxiety associated with depression F41.8 [address] [id number] [place] [address] Sep, 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 M05.731 [address] [id number] [place] [address] Sep, Chronic pain G89.29 [facility] [id number] [place] [address] Sep, Type 2 diabetes mellitus with diabetic neuropathy, unspecified E11.40 ; Emphysema, unspecified J43.9 ; Gastro-esophageal reflux disease without esophagitis K21.9 ; Hypertension I10 ; Hyperlipemia E78.5 ; Anxiety associated with depression F41.8 ; Chronic pain G89.29 ; Vitamin D deficiency E55.9 and Primary insomnia F51.01 [id number] [place] [address] 16 Aug, 2016 Anxiety associated with depression F41.8 [address] [place] [address] Aug, Chronic pain G89.29 and Neuropathy G62.9 [facility] [id number] [place] [address] Aug, Type 2 diabetes mellitus with diabetic neuropathy, unspecified E11.40 ; Rheumatoid arthritis involving multiple sites with positive rheumatoid factor M05.79 ; Vitamin D deficiency E55.9 ; Anxiety associated with depression F41.8 and Primary insomnia F51.01 [place] [address] [place] [address] July, Emphysema, unspecified J43.9 [place] [id number] [place] [address] July, Allergic rhinitis J30.9 [place] [id number] [place] [address] July, Allergic rhinitis J30.9 ; Emphysema, unspecified J43.9 and 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 M05.731 [place] [id number] [place] [address] July, Neuropathy G62.9 and Chronic pain G89.29 [place] [id number] [place] [address] July, Rheumatoid arthritis involving multiple sites with positive rheumatoid factor M05.79 [place] [place] [id number] [place] [address] Jun, [facility] [id number] [place] [address] Jun, Neuropathy G62.9 and Chronic pain G89.29 [place] [id number] [place] [address] May, Neuropathy G62.9 and Chronic pain G89.29 [place] [place] [id number] [place] [address] May, [facility] [id number] [place] [address] May, [facility] [id number] [place] [address] May, Type 2 diabetes mellitus with diabetic [...] system involvement with positive rheumatoid factor M05.732 [place] [id number] [place] [address] 14 Apr, 2016 Chronic pain G89.29 [place] [id number] [place] [address] Mar, Gastro-esophageal reflux disease without esophagitis K21.9 [place] [address] [address] Mar, [place] [address] [address] Mar, 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 M05.731 [place] [id number] [place] [address] Mar, Chronic pain G89.29 [place] [id number] [place] [address] Feb, Hyperlipemia E78.5 [place] [address] [address] Feb, Abnormal breath sounds R06.89 ; COPD with exacerbation J44.1 and Fatigue, unspecified type R53.83 [place] [facility] [id number] [place] [address] Feb, Neuropathy G62.9 ; Abnormal lung sounds R09.89 and Bronchitis J40 [facility] [id number] [place] [address] Feb, Bronchitis J40 [place] [id number] [place] [address] Feb, Chronic pain G89.29 [place] [id number] [place] [address] Jan, Type 2 diabetes mellitus with diabetic neuropathy, unspecified E11.40 ; 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 M05.731 and Hyperlipemia E78.5 [place] [id number] [place], [place] [id number] Jan, 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 M05.731 [place] [id number] [place] [address] Jan, De Quervain's disease (radial styloid tenosynovitis) M65.4 ; Closed nondisplaced fracture of scaphoid of left wrist, unspecified portion of scaphoid, initial encounter S62.002A and Peripheral tear of medial meniscus of left knee, unspecified whether old or current tear, initial encounter S83.222A [place] [id number] [place] [address] Jan, Hypertension I10 ; Type 2 diabetes mellitus with diabetic neuropathy, unspecified E11.40 ; Hyperlipemia E78.5 ; Allergic rhinitis J30.9 ; Neuropathy G62.9 ; 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 M05.731 ; Acute non-recurrent maxillary sinusitis J01.00 and Chronic pain G89.29 [place] [address] [place] [address] Dec, [place] [facility] [id number] [place] [address] Dec, [place] [id number] [place], [place] [address] Dec, Type 2 diabetes mellitus with diabetic neuropathy, unspecified E11.40 ; Emphysema, unspecified J43.9 ; Gastro-esophageal reflux disease without esophagitis K21.9 ; Hypertension I10 ; Hyperlipemia E78.5 ; 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 M05.731 ; Elevated white blood cell count, unspecified D72.829 ; Acute non- recurrent frontal sinusitis J01.10 and Chronic pain G89.29 [place] [id number] [place] [address] Nov, [facility] [id number] [place] [address] Nov, Elevated white blood cell count, unspecified D72.829 ; Encounter for immunization Z23 ; 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 M05.731 ; Injury of left hand S69.92XA ; Pain in left knee M25.562 and Other chronic pain G89.29 [place] [id number] [place] [address] Nov, [place] [id number] [place] [address] Nov, [place] [facility] [id number] [place] [address] Oct, [place] [facility] [id number] [place] [address] Oct, Hyperlipemia E78.5 [place] [facility] [id number] [place] [address] Oct, [facility] [facility] [id number] [place] [address] Oct, Type 2 diabetes mellitus with diabetic neuropathy, unspecified E11.40 ; Neuropathy G62.9 ; Hypertension I10 ; Chronic pain G89.29 and Hyperlipemia E78.5 [place] [address] [place] [address] Oct, Emphysema, unspecified J43.9 and Rheumatoid arthritis of left wrist without organ or system involvement with positive rheumatoid factor M05.732 [place] [id number] [place] [address] Sep, Chronic pain syndrome G89.4 [place] [id number] [place] [address] Sep, [place] [address] [place] [address] Sep, [facility] [id number] [place] [address] Sep, Closed nondisplaced fracture of scaphoid of left wrist, unspecified portion of scaphoid, initial encounter S62.002A [facility] [id number] [place] [address] Sep, Type 2 diabetes mellitus with diabetic neuropathy, unspecified E11.40 ; Hypertension I10 ; Hyperlipemia E78.5 and Acute non-recurrent maxillary sinusitis J01.00 [facility] [id number] [place] [id number] Sep, [facility] [id number] [place] [id number] Sep, [facility] [id number] [place] [id number] Sep, [facility] [facility] [id number] [place] [id number] Sep, [facility] [id number] [place] [phone] Aug, Epigastric pain R10.13 and Right upper quadrant pain R10.11 [facility] [id number] [place] [id number] Aug, Closed nondisplaced fracture of scaphoid of left wrist, unspecified portion of scaphoid, initial encounter S62.002A [facility] [id number] [place] [phone] Aug, [facility] [id number] [place] [address] Aug, [facility] [id number] [place] [address] Aug, Shortness of breath R06.02 ; Epigastric pain R10.13 and Injury of left lower arm, initial encounter S59.912A [facility] [id number] [place] [address] Aug, Coronary artery disease involving [place] heart with angina pectoris, unspecified vessel or lesion type I25.119 ; Pulmonary emphysema, unspecified emphysema type J43.9 and Snoring R06.83 [facility] [id number] [place] [phone] Aug, [place] [address] [address] Aug, Emphysema, unspecified J43.9 ; Atherosclerotic heart disease of [place] coronary artery 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.10 and Hypertension I10 [facility] [id number] [place] [phone] July, [address] [address] [address] [address] July, Closed nondisplaced fracture of scaphoid of left wrist, unspecified portion of scaphoid, initial encounter S62.002A [place] [facility] [id number] [place] [phone] July, [facility] [id number] [place] [address] July, Type 2 diabetes mellitus with diabetic neuropathy, unspecified E11.40 ; Emphysema, unspecified J43.9 ; Atherosclerotic heart disease of [place] coronary artery 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.10 ; [...] agents L24.89 and Hospital discharge follow-up Z09 [facility] [facility] [id number] [place] [phone] July, [place] [address] [address] July, Type 2 diabetes mellitus with diabetic neuropathy, unspecified E11.40 [facility] [address] [address] July, Type 2 diabetes mellitus with diabetic neuropathy, unspecified E11.40 and Rheumatoid arthritis of left wrist without organ or system involvement with positive rheumatoid factor M05.732 [facility] [address] [address] July, [facility] [address] [address] July, [facility] [id number] [place] [address] Jun, [facility] [id number] [place] [address] Jun, [facility] [address] [address] Jun, 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 [facility] [address] [address] Jun, [facility] [address] [address] Jun, 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 [facility] [address] [address] Jun, [facility] [address] [address] Jun, [facility] [address] [address] Jun, Encounter for PPD test Z11.1 ; 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 M05.731 and Rheumatoid arthritis of left wrist without organ or system involvement with positive rheumatoid factor M05.732 [facility] [id number] [place] [address] Jun, Type 2 diabetes mellitus with diabetic neuropathy, unspecified E11.40 [place] [address] [address] May, Type 2 diabetes mellitus with diabetic neuropathy, unspecified E11.40 ; Emphysema, unspecified J43.9 ; 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 M05.731 ; Rheumatoid arthritis of left wrist without organ or system involvement with positive rheumatoid factor M05.732 and Chronic pain G89.29 [place] [address] [address] May, [place] [address] [address] May, Swelling of hand joint M25.449 ; Ankle swelling M25.473 and Joint pain M25.50 [place] [address] [address] May, Emphysema, unspecified J43.9 [facility] [id number] [place] [address] May, Gastroenteritis K52.9 and Hypertension I10 [facility] [facility] [id number] [place] [address] Apr, [facility] [id number] [place] [address] Apr, [facility] [facility] [id number] [place] [address] Apr, [facility] [facility] [id number] [place] [address] Apr, Type 2 diabetes mellitus with diabetic neuropathy, unspecified E11.40 ; Emphysema, unspecified J43.9 ; Atherosclerotic heart disease of [place] coronary artery 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.10 ; Migraine without aura, not intractable, with status migrainosus G43.001 ; Gastro-esophageal reflux disease without esophagitis K21.9 ; CAD (coronary artery disease) I25.10 ; Hypertension I10 ; Hyperlipemia E78.5 ; Allergic rhinitis J30.9 ; Neuropathy G62.9 ; Anxiety associated with depression F41.8 and Injury of left hand S69.92XA [place] [id number] [place] [address] Apr, [address] [address] Apr, [address] [address] Apr, Type 2 diabetes mellitus with diabetic neuropathy, unspecified E11.40 ; Emphysema, unspecified J43.9 ; Essential (primary) hypertension I10 ; Atherosclerotic heart disease of [place] coronary artery 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.10 ; Gastro-esophageal reflux disease without esophagitis K21.9 ; CAD (coronary artery disease) I25.10 ; Hyperlipemia E78.5 ; Hypertension I10 ; History of solitary pulmonary nodule Z87.898 ; Allergic rhinitis J30.9 ; Chronic pain G89.29 and Depression with anxiety F41.[address] [address] Mar, [address] [address] Mar, Allergic rhinitis J30.9 ; URI (upper respiratory infection) J06.9 and Other viral agents as the cause of diseases classified elsewhere B97.89 [facility] [id number] [place] [address] Feb, Acute nasopharyngitis [common cold] J00 and Acute diarrhea R19.[address] [address] Feb, Depression F32.[address] [address] Jan, Otitis media, right H66.[id number] [place] [address] Jan, [place] [address] [address] Jan, Type 2 diabetes mellitus with diabetic neuropathy, unspecified E11.40 [address] [address] [address] Jan, [place] [address] [address] Jan, Hyperlipemia E78.5 [address] [address] Jan, Type 2 diabetes mellitus with diabetic neuropathy, unspecified E11.40 ; Emphysema, unspecified J43.9 ; CAD (coronary artery disease) I25.10 and Hyperlipemia E78.5 [address] [address] [address] Dec, Allergic rhinitis J30.9 and Fungal infection B49 [place] [id number] [place] [address] Dec, [place] [address] [address] Dec, [place] [facility] [id number] [place] [address] Dec, Chest pain R07.9 ; CAD (coronary artery disease) I25.10 ; Hypertension I10 and Hyperlipemia E78.5 [place] [id number] [place] [address] Dec, Pain in thoracic spine M54.6 ; Gastro-esophageal reflux disease without esophagitis K21.9 ; Emphysema, unspecified J43.9 and Migraine without aura, not intractable, with status migrainosus G43.001 [facility] [facility] [id number] [place] [address] Dec, [id number] [address] Nov, Influenza vaccine administered V04.81 [place] [address] [address] Nov, [facility] [address] [address] Sep, [place] [facility] [id number] [place] [address] Sep, [place] [id number] [place] [address] Sep, CAD (coronary artery disease) 414.00 and Diabetes type 2, uncontrolled 250.02 [place] [address] [address] Sep, CAD (coronary artery disease) 414.00 ; Diabetes type 2, uncontrolled 250.02 and Migraine 346.90 IMMUNIZATIONS Vaccine Route Administration Date Status TORADOL (IM) 30 MG/ML (UP TO 15 MG) IV Intravenous Oct 25, 2017 Administered SOCIAL HISTORY Never Assessed REASON FOR VISIT complaining of dizziness this am since she woke up around 0500. also complainin g of middle back pain all the way up. denies any injury. alda, 1720 - pt c /o nausea. zofran 4mg ODT given at this time PLAN OF CARE Activity Details Follow Up 10/26 at 1140am with Gigi Turpin, ANGIE Reason:dizziness VITAL SIGNS Height 66 in 2017-10-25 Weight 185.5 lbs 2017-10-25 Temperature 97.0 degrees Fahrenheit 2017-10-25 Heart Rate 80 bpm 2017-10-25 Respiratory Rate 20 2017-10-25 BMI 29.94 kg/m2 2017-10-25 Blood pressure systolic 110 mmHg 2017-10-25 Blood pressure diastolic 68 mmHg 2017-10-25 MEDICATIONS Medication Instructions Dosage Frequency Start Date End Date Duration Status Citalopram Hydrobromide 20 MG TAKE ONE TABLET BY MOUTH ONCE DAILY 30 Active Cetirizine HCl 10 Orally Once a day TAKE 1 TABLET BY MOUTH DAILY 24h Active Ondansetron HCl 4 MG Orally Twice a day 1 tablet 12h Oct, 03 days Active Protonix 40 mg Orally Once a day 1 tablet 24h 90 Active Methotrexate 2.5 MG TAKE 10 TABLETS BY MOUTH ONCE WEEKLY 84 Active Folic Acid 1 MG TAKE ONE TABLET BY MOUTH ONCE DAILY 90 Active Baclofen 10 MG TAKE ONE TABLET BY MOUTH THREE TIMES DAILY WITH FOOD OR MILK 90 Active Albuterol Sulfate (2.5 MG/3ML) 0.083% Inhalation Three times a day 3 ml 8h Active Hydrocodone-Acetaminophen 7.5-325 MG Orally every 6 hours as needed 1 tablet as needed Sep, 28 days Active Ventolin HFA 108 (90 Base) MCG/ACT INHALE TWO PUFFS BY MOUTH EVERY 4 HOURS NEEDED (MUST HAVE APPOINTMENT FOR REFILL) 17 Active Victoza 18 MG/3ML INJECT 1.8 MG SUBCUTANEOUSLY ONCE DAILY 30 Active Symbicort 160-4.5 MCG/ACT INHALE 2 PUFFS BY MOUTH TWICE DAILY. (NEED TO MAKE AN APPOINTMENT FOR REFILLS) 30 Active Hydroxychloroquine Sulfate 200 MG TAKE ONE TABLET BY MOUTH ONCE DAILY WITH FOOD OR MILK 90 Active Meclizine HCl 25 MG Orally Once a day 1 tablet as needed 24h Oct, 03 days Active Metoprolol Tartrate 25 MG TAKE ONE TABLET BY MOUTH TWICE DAILY 30 Active Quad Cane as directed May, Active Aspirin EC Low Dose 81 MG TAKE ONE TABLET BY MOUTH ONCE DAILY 90 Active Trazodone HCl 50 MG TAKE ONE TABLET BY MOUTH ONCE DAILY AT BEDTIME NEEDED 30 Active HydrOXYzine HCl 25 MG Orally every 8 hrs 1 tablet as needed 8h 30 Active Sucralfate 1 GM TAKE ONE TABLET BY MOUTH EVERY 6 HOURS Active Qnasl 80 MCG/ACT USE TWO SPRAYS IN EACH NOSTRIL ONCE DAILY 30 Active Depend Adjustable Underwear Lg 1 as directed 3 times a day use one depends three times per day as needed 8h May, Active Oxygen Active PredniSONE 20 mg Orally Once a day x 5 days, then 1 tablet x 5 days 2 tablets Sep, Oct, 10 days Active Nicotine 21 MG/24HR Transdermal Once a day 1 patch to skin 24h Feb, Active Easy Touch Pen [place] 32G X 4 MM sq 4 times a day as directed 6h Sep, Active Fish Oil 1200 MG Orally Once a day 1 capsule 24h Active Lisinopril 20 MG TAKE ONE TABLET BY MOUTH ONCE DAILY 90 Active Aleve 220 MG Orally every 12 hrs 1 tablet 12h Active Blood Glucose Monitor System w/Device as directed July, Active Atorvastatin Calcium 10 MG TAKE ONE TABLET BY MOUTH ONCE DAILY 30 Active Glucocard Expression Test - In Vitro 4 times a 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 test blood sugar May, Active Metformin HCl 1000 MG TAKE ONE TABLET BY MOUTH TWICE DAILY WITH MEALS 30 Active Lyrica 100 mg Orally Three times a day 1 capsule 8h Dec, Active RESULTS Name Result Date Reference Range GLUCOSE FINGERSTICK (IN HOUSE) 2017-10-25 GLU FINGERSTICK 253 PC + Lot # [id number] Exp date 2018 PROCEDURES Procedure Date Ordered Result Body Site GLUCOSE BLOOD TEST Oct 25, 2017 TORADOL (IM) 30 MG/ML (UP TO 15 MG) Oct 25, 2017 THER/PROPH/DIAG INJ, SC/IM Oct 25, 2017 INSTRUCTIONS MEDICATIONS ADMINISTERED No Known Medications [...] unspecified Medical History Atherosclerotic heart disease of [place] coronary artery without angina pectoris Medical History [...]
--- OUTSIDE RECORDS SUMMARY | 2018-08-23 16:50 | XMS REPORT ---
Author Author PANCHOROBCLAU Organization [facility] Address [address] [place] [address] Care Team Providers Care Production Solderer Name Role Phone DELEONROB MoranELE Unavailable PROBLEMS Type Condition ICD9-CM Code SVB47-XT Code Onset Dates Condition Status SNOMED Code Problem Neuropathy G62.9 Active 545683847 Problem Other hammer toe(s) (acquired), right foot M20.41 Active 977919983 Problem Other hammer toe(s) (acquired), left foot M20.42 Active 74872783 Problem Intractable migraine without status migrainosus, unspecified migraine type G43.919 Active 152106168 Problem Gastro-esophageal reflux disease without esophagitis K21.9 Active 379612507 Problem Elevated white blood cell count, unspecified D72.829 Active 396694694 Problem Hypertension I10 Active 17611472 Problem Hyperlipemia E78.5 Active 59712845 Problem Hammer toe of left foot M20.42 Active 925702126 Problem Tobacco abuse Z72.0 Active 959147930 Problem Other chronic pain G89.29 Active 60223146 Problem Atherosclerotic heart disease of [place] coronary artery 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.10 Active 047385962956035 Problem Allergic rhinitis J30.9 Active 73544008 Problem Anxiety associated with depression F41.8 Active 764921335 Problem Emphysema, unspecified J43.9 Active 96585739 Problem Type 2 diabetes mellitus with diabetic neuropathy, unspecified E11.40 Active 61521513 Problem Rheumatoid arthritis involving multiple sites with positive rheumatoid factor M05.79 Active 560594367 Problem Primary insomnia F51.01 Active 2564707 Problem Chronic pain G89.29 Active 04474840 Problem Periodontitis K05.30 Active 63005170 Problem Vitamin D deficiency E55.9 Active 28557757 Problem OAB (overactive bladder) N32.81 Active 919054521 Problem Dependence on nocturnal oxygen therapy Z99.81 Active [id number] ALLERGIES No Information ENCOUNTERS Encounter Location Date Diagnosis [facility] [address] [address] 16 Jan, 2018 [facility] [id number] [place] [address] Dec, [facility] [id number] [place] [address] 24 Nov, 2017 [facility] [id number] [place] [address] 07 Nov, 2017 Chronic pain G89.29 [facility] [id number] [place] [address] 06 Nov, 2017 Chronic pain G89.29 [facility] [id number] [place] [address] Oct, Dysuria R30.0 ; Intractable migraine without status migrainosus, unspecified migraine type G43.919 and Back pain at L4-L5 level M54.5 [facility] [id number] [place] [address] Oct, Orthostatic hypotension I95.1 [facility] [id number] [place] [address] Oct, Localized swelling of both lower legs R22.43 ; Onychomycosis B35.1 and Type 2 diabetes mellitus with diabetic neuropathy, unspecified E11.40 [facility] [id number] [place] [address] Oct, [facility] [id number] [place] [address] Oct, Elevated white blood cell count, unspecified D72.829 [facility] [id number] [place] [address] Oct, Elevated white blood cell count, unspecified D72.829 [facility] [id number] [place] [address] Oct, Chronic pain G89.29 [facility] [id number] [place] [address] Oct, [facility] [id number] [place] [address] Oct, [facility] [id number] [place] [address] Oct, Orthostatic hypotension I95.1 ; Dizziness R42 and Neuropathy G62.9 [facility] [id number] [place] [address] Oct, Dizziness R42 ; Low back pain M54.5 ; Other chronic pain G89.29 ; Nausea R11.0 and Orthostatic hypotension I95.1 [facility] [id number] [place] [address] Sep, Rheumatoid arthritis involving multiple sites with positive rheumatoid factor M05.79 and Tobacco abuse Z72.0 [facility] [id number] [place] [address] Sep, Chronic pain G89.29 [facility] [address] [address] Aug, Type 2 diabetes mellitus with diabetic neuropathy, unspecified E11.40 ; Hypertension I10 ; Hyperlipemia E78.5 ; Gastro-esophageal reflux disease without esophagitis K21.9 ; Emphysema, unspecified J43.9 ; Anxiety associated with depression F41.8 ; Vitamin D deficiency E55.9 ; Chronic pain G89.29 ; Tobacco abuse Z72.0 ; Overweight (BMI 25.0-29.9) E66.3 ; Atherosclerotic heart disease of [place] coronary artery 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.10 ; OAB (overactive bladder) N32.81 and Primary insomnia F51.01 [facility] [address] [place] [address] July, [facility] [id number] [place] [address] July, [facility] [address] [address] July, Chronic pain G89.29 [facility] [id number] [place] [address] July, [facility] [id number] [place] [address] July, Onychomycosis B35.1 ; Hammer toe of left foot M20.42 and Type 2 diabetes mellitus with diabetic neuropathy, unspecified E11.40 [facility] [id number] [place] [address] July, [facility] [id number] [place] [address] July, Chronic pain G89.29 and Neuropathy G62.9 [facility] [id number] [place] [address] July, [facility] [id number] [place] [address] July, [facility] [id number] [place] [address] Jun, [facility] [id number] [place] [address] Jun, Chronic pain G89.29 [facility] [id number] [place] [address] Jun, [facility] [id number] [place] [address] Jun, [facility] [id number] [place] [address] Jun, Visit for TB skin test Z11.1 [facility] [id number] [place] [address] Jun, [facility] [id number] [place] [address] Jun, [facility] [id number] [place] [address] Jun, Tobacco abuse Z72.0 and Rheumatoid arthritis involving multiple sites with positive rheumatoid factor M05.79 [facility] [id number] [place] [address] Jun, Anxiety F41.9 ; Acute non-recurrent maxillary sinusitis J01.00 and Chronic pain G89.29 [facility] [id number] [place] [address] Jun, [facility] [address] [address] May, Rheumatoid arthritis involving multiple sites with positive rheumatoid factor M05.79 [facility] [id number] [place] [address] May, Chronic pain G89.29 [facility] [id number] [place] [address] May, [facility] [id number] [place] [address] May, [facility] [id number] [place] [address] May, [facility] [id number] [place] [address] May, Type 2 diabetes mellitus with diabetic neuropathy, unspecified E11.40 [facility] [id number] [place] [address] May, Type 2 diabetes mellitus with diabetic neuropathy, unspecified E11.40 ; Emphysema, unspecified J43.9 ; Hypertension I10 ; Hyperlipemia E78.5 ; Vitamin D deficiency E55.9 ; Right medial knee pain M25.561 ; Controlled substance agreement signed Z79.899 ; Chronic pain G89.29 ; Allergic rhinitis J30.9 ; Anxiety associated with depression F41.8 ; Neuropathy G62.9 and Gastro- esophageal reflux disease without esophagitis K21.9 [facility] [id number] [place] [address] Apr, Chronic pain G89.29 [facility] [address] [address] 16 Apr, 2017 Other hammer toe(s) (acquired), left foot M20.42 ; Other hammer toe(s) (acquired), right foot M20.41 ; Type 2 diabetes mellitus with diabetic neuropathy, unspecified E11.40 and Onychomycosis B35.1 [place] [address] [address] 2017 Gastro-esophageal reflux disease without esophagitis K21.9 [facility] [address] [address] 02 Apr, 2017 Controlled substance agreement signed Z79.899 [place] [address] [address] Mar, Chronic pain G89.29 [facility] [address] [address] Mar, Emphysema, unspecified J43.9 and Type 2 diabetes mellitus with diabetic neuropathy, unspecified E11.40 [facility] [id number] [place] [address] Mar, Dysuria R30.0 ; Vaginal candidiasis B37.3 and Acute nonintractable headache, unspecified headache type R51 [facility] [id number] [place] [address] Feb, Neuropathy G62.9 and Chronic pain G89.29 [facility] [place] [address] [address] Feb, Gastro-esophageal reflux disease without esophagitis K21.9 [place] [address] [address] Feb, [facility] [address] [place] [address] Feb, Rheumatoid arthritis involving multiple sites with positive rheumatoid factor M05.79 and COPD with acute exacerbation J44.1 [facility] [id number] [place] [address] 08 Feb, 2017 Vaginal odor N89.8 ; Vaginal irritation N89.8 ; Candidal dermatitis B37.2 and Screening breast examination Z12.31 [facility] [id number] [place] [address] Feb, [place] [address] [address] Feb, [facility] [id number] [place] [address] Feb, [facility] [id number] [place] [address] Feb, COPD with exacerbation J44.1 ; Tobacco abuse counseling Z71.6 ; Tobacco abuse Z72.0 ; Rheumatoid arthritis involving multiple sites with positive rheumatoid factor M05.79 and Hyperlipemia E78.5 [facility] [id number] [place] [address] Feb, [facility] [id number] [place] [phone] Jan, [facility] [id number] [place] [address] Jan, Chronic pain G89.29 [facility] [id number] [place] [phone] Jan, Dental examination Z01.20 [facility] [id number] [place] [address] 19 Jan, 2017 Back pain of lumbar region with sciatica M54.40 [facility] [id number] [place] [address] Jan, Acute bacterial conjunctivitis of both eyes H10.33 [facility] [place] [id number] [place] [address] 02 Jan, 2017 Chronic pain G89.29 [facility] [address] [address] Dec, Type 2 diabetes mellitus with diabetic neuropathy, unspecified E11.40 ; Hypertension I10 ; Hyperlipemia E78.5 ; Gastro-esophageal reflux disease without esophagitis K21.9 ; Anxiety associated with depression F41.8 ; Allergic rhinitis J30.9 ; Neuropathy G62.9 and Dependence on nocturnal oxygen therapy Z99.81 [place] [address] [address] Dec, [place] [address] [address] Dec, [place] [address] [address] Dec, Encounter for immunization Z23 [facility] [address] [address] 05 Dec, 2016 Type 2 diabetes mellitus with diabetic neuropathy, unspecified E11.40 and Chronic pain G89.29 [place] [address] [address] Nov, Gastro-esophageal reflux disease without esophagitis K21.9 [facility] [address] [address] Nov, Peripheral edema R60.9 and Chest pain in adult R07.9 [facility] [address] [address] 07 Nov, 2016 Chronic pain G89.29 [place] [address] [address] Oct, [place] [address] [address] Oct, [facility] [address] [place] [address] Oct, 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 M05.731 [facility] [address] [place] [address] Oct, [facility] [id number] [place] [address] Oct, Acute exacerbation of chronic obstructive pulmonary disease (COPD) J44.1 and Canker sore K12.0 [facility] [id number] [place] [address] Oct, [facility] [id number] [place] [address] Oct, [facility] [id number] [place] [address] Oct, Chronic pain G89.29 [facility] [address] [id number] Oct, Dental examination Z01.20 [facility] [id number] [place] [address] Oct, Dental examination Z01.20 and Periodontitis K05.30 [facility] [id number] [place] [phone] Oct, Dental examination Z01.20 [facility] [address] [place] [address] Sep, Abscess L02.91 [facility] [id number] [place] [address] Sep, Dental examination Z01.20 [facility] [id number] [place] [address] Sep, [facility] [id number] [place] [id number] 18 Syd, 2017 Dental examination Z01.20 and Dental caries K02.9 [facility] [place] [address] [place] [address] 18 Sep, 2016 Primary insomnia F51.01 and Anxiety associated with depression F41.8 [facility] [place] [id number] [place] [address] 14 Sep, 2016 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 M05.731 [facility] [id number] [place] [address] Sep, Chronic pain G89.29 [place] [id number] [place] [address] Sep, Type 2 diabetes mellitus with diabetic neuropathy, unspecified E11.40 ; Emphysema, unspecified J43.9 ; Gastro-esophageal reflux disease without esophagitis K21.9 ; Hypertension I10 ; Hyperlipemia E78.5 ; Anxiety associated with depression F41.8 ; Chronic pain G89.29 ; Vitamin D deficiency E55.9 and Primary insomnia F51.01 [facility] [place] [id number] [place] [address] 16 Aug, 2016 Anxiety associated with depression F41.8 [facility] [place] [id number] [place] [address] 13 Aug, 2016 Chronic pain G89.29 and Neuropathy G62.9 [facility] [place] [id number] [place] [address] Aug, Type 2 diabetes mellitus with diabetic neuropathy, unspecified E11.40 ; Rheumatoid arthritis involving multiple sites with positive rheumatoid factor M05.79 ; Vitamin D deficiency E55.9 ; Anxiety associated with depression F41.8 and Primary insomnia F51.01 [facility] [place] [address] [place] [address] July, Emphysema, unspecified J43.9 [facility] [address] [place] [address] July, Allergic rhinitis J30.9 [facility] [address] [place] [address] July, Allergic rhinitis J30.9 ; Emphysema, unspecified J43.9 and 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 M05.731 [facility] [place] [address] [place] [address] July, Neuropathy G62.9 and Chronic pain G89.29 [facility] [address] [place] [address] July, Rheumatoid arthritis involving multiple sites with positive rheumatoid factor M05.79 [place] [address] [address] Jun, [place] [address] [address] Jun, Neuropathy G62.9 and Chronic pain G89.29 [place] [place] [id number] [place] [address] May, Neuropathy G62.9 and Chronic pain G89.29 [place] [place] [id number] [place] [address] May, [place] [id number] [place] [address] May, [place] [place] [id number] [place] [address] May, Type 2 diabetes mellitus with diabetic [...] with positive rheumatoid factor M05.732 [facility] [address] [place] [address] 14 Apr, 2016 Chronic pain G89.29 [facility] [id number] [place] [address] Mar, Gastro-esophageal reflux disease without esophagitis K21.9 [place] [id number] [place] [address] Mar, [place] [id number] [place] [address] Mar, 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 M05.731 [facility] [place] [address] [place] [address] Mar, Chronic pain G89.29 [facility] [place] [address] [place] [address] Feb, Hyperlipemia E78.5 [facility] [place] [address] [place] [address] Feb, Abnormal breath sounds R06.89 ; COPD with exacerbation J44.1 and Fatigue, unspecified type R53.83 [place] [address] [place] [address] Feb, Neuropathy G62.9 ; Abnormal lung sounds R09.89 and Bronchitis J40 [facility] [id number] [place] [address] Feb, Bronchitis J40 [facility] [id number] [place] [address] Feb, Chronic pain G89.29 [facility] [id number] [place] [address] Jan, Type 2 diabetes mellitus with diabetic neuropathy, unspecified E11.40 ; 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 M05.731 and Hyperlipemia E78.5 [place] [address] [place] [address] Jan, 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 M05.731 [place] [address] [place] [address] Jan, De Quervain's disease (radial styloid tenosynovitis) M65.4 ; Closed nondisplaced fracture of scaphoid of left wrist, unspecified portion of scaphoid, initial encounter S62.002A and Peripheral tear of medial meniscus of left knee, unspecified whether old or current tear, initial encounter S83.222A [facility] [id number] [place] [address] Jan, Hypertension I10 ; Type 2 diabetes mellitus with diabetic neuropathy, unspecified E11.40 ; Hyperlipemia E78.5 ; Allergic rhinitis J30.9 ; Neuropathy G62.9 ; 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 M05.731 ; Acute non-recurrent maxillary sinusitis J01.00 and Chronic pain G89.29 [place] [id number] [place] [address] Dec, [place] [id number] [place] [address] Dec, [place] [id number] [place] [address] Dec, Type 2 diabetes mellitus with diabetic neuropathy, unspecified E11.40 ; Emphysema, unspecified J43.9 ; Gastro-esophageal reflux disease without esophagitis K21.9 ; Hypertension I10 ; Hyperlipemia E78.5 ; 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 M05.731 ; Elevated white blood cell count, unspecified D72.829 ; Acute non- recurrent frontal sinusitis J01.10 and Chronic pain G89.29 [place] [id number] [place] [address] Nov, [place] [address] [place] [address] Nov, Elevated white blood cell count, unspecified D72.829 ; Encounter for immunization Z23 ; 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 M05.731 ; Injury of left hand S69.92XA ; Pain in left knee M25.562 and Other chronic pain G89.29 [place] [id number] [place] [address] Nov, [place] [place] [id number] [place] [address] Nov, [place] [id number] [place] [address] Oct, [place] [place] [id number] [place] [address] Oct, Hyperlipemia E78.5 [place] [id number] [place] [address] Oct, [place] [id number] [place] [address] Oct, Type 2 diabetes mellitus with diabetic neuropathy, unspecified E11.40 ; Neuropathy G62.9 ; Hypertension I10 ; Chronic pain G89.29 and Hyperlipemia E78.5 [place] [address] [place] [address] Oct, Emphysema, unspecified J43.9 and Rheumatoid arthritis of left wrist without organ or system involvement with positive rheumatoid factor M05.732 [place] [id number] [place] [id number] Sep, Chronic pain syndrome G89.4 [place] [address] [place] [id number] [place] [id number] Sep, [place] [address] [place] [id number] [place] [id number] Sep, [place] [address] [place] [id number] [address] Sep, Closed nondisplaced fracture of scaphoid of left wrist, unspecified portion of scaphoid, initial encounter S62.002A [facility] [address] [place] [id number] [place] [id number] Sep, Type 2 diabetes mellitus with diabetic neuropathy, unspecified E11.40 ; Hypertension I10 ; Hyperlipemia E78.5 and Acute non-recurrent maxillary sinusitis J01.00 [facility] [id number] [place] [address] Sep, [place] [id number] [place] [address] Sep, [facility] [id number] [place] [address] Sep, [place] [id number] [place] [address] Sep, [facility] [id number] [place] [address] Aug, Epigastric pain R10.13 and Right upper quadrant pain R10.11 [place] [id number] [place] [address] Aug, Closed nondisplaced fracture of scaphoid of left wrist, unspecified portion of scaphoid, initial encounter S62.002A [place] [id number] [place] [address] Aug, [facility] [id number] [place] [address] Aug, [facility] [id number] [place] [address] Aug, Shortness of breath R06.02 ; Epigastric pain R10.13 and Injury of left lower arm, initial encounter S59.912A [place] [id number] [place] [address] Aug, Coronary artery disease involving [place] heart with angina pectoris, unspecified vessel or lesion type I25.119 ; Pulmonary emphysema, unspecified emphysema type J43.9 and Snoring R06.83 [place] [id number] [place] [address] Aug, [place] [id number] [place] [address] Aug, Emphysema, unspecified J43.9 ; Atherosclerotic heart disease of [place] coronary artery 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.10 and Hypertension I10 [place] [id number] [place] [address] July, [place] [id number] [place] [address] July, Closed nondisplaced fracture of scaphoid of left wrist, unspecified portion of scaphoid, initial encounter S62.002A [place] [id number] [place] [address] July, [place] [id number] [place] [address] July, Type 2 diabetes mellitus with diabetic neuropathy, unspecified E11.40 ; Emphysema, unspecified J43.9 ; Atherosclerotic heart disease of [place] coronary artery 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.10 ; [...] agents L24.89 and Hospital discharge follow-up Z09 [place] [id number] [place] [address] July, [place] [id number] [place] [address] July, Type 2 diabetes mellitus with diabetic neuropathy, unspecified E11.40 [facility] [address] [address] July, Type 2 diabetes mellitus with diabetic neuropathy, unspecified E11.40 and Rheumatoid arthritis of left wrist without organ or system involvement with positive rheumatoid factor M05.732 [facility] [address] [address] July, [facility] [id number] [place] [address] July, [facility] [id number] [place] [address] Jun, [facility] [id number] [place] [address] Jun, [facility] [id number] [place] [address] Jun, 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 [facility] [id number] [place] [address] Jun, [facility] [id number] [place] [address] Jun, 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 [facility] [address] [address] Jun, [facility] [id number] [address] Jun, [facility] [address] [address] Jun, Encounter for PPD test Z11.1 ; 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 M05.731 and Rheumatoid arthritis of left wrist without organ or system involvement with positive rheumatoid factor M05.732 [facility] [address] [address] Jun, Type 2 diabetes mellitus with diabetic neuropathy, unspecified E11.40 [place] [id number] [place] [address] May, Type 2 diabetes mellitus with diabetic neuropathy, unspecified E11.40 ; Emphysema, unspecified J43.9 ; 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 M05.731 ; Rheumatoid arthritis of left wrist without organ or system involvement with positive rheumatoid factor M05.732 and Chronic pain G89.29 [place] [address] [address] May, [place] [address] [address] May, Swelling of hand joint M25.449 ; Ankle swelling M25.473 and Joint pain M25.50 [place] [address] [address] May, Emphysema, unspecified J43.9 [place] [address] [address] May, Gastroenteritis K52.9 and Hypertension I10 [place] [address] [address] Apr, [place] [address] [address] Apr, [place] [id number] [place] [address] Apr, [place] [address] [address] Apr, Type 2 diabetes mellitus with diabetic neuropathy, unspecified E11.40 ; Emphysema, unspecified J43.9 ; Atherosclerotic heart disease of [place] coronary artery 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.10 ; Migraine without aura, not intractable, with status migrainosus G43.001 ; Gastro-esophageal reflux disease without esophagitis K21.9 ; CAD (coronary artery disease) I25.10 ; Hypertension I10 ; Hyperlipemia E78.5 ; Allergic rhinitis J30.9 ; Neuropathy G62.9 ; Anxiety associated with depression F41.8 and Injury of left hand S69.92XA [place] [address] [address] Apr, [place] [address] [address] Apr, [place] [address] [address] Apr, Type 2 diabetes mellitus with diabetic neuropathy, unspecified E11.40 ; Emphysema, unspecified J43.9 ; Essential (primary) hypertension I10 ; Atherosclerotic heart disease of [place] coronary artery 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.10 ; Gastro-esophageal reflux disease without esophagitis K21.9 ; CAD (coronary artery disease) I25.10 ; Hyperlipemia E78.5 ; Hypertension I10 ; History of solitary pulmonary nodule Z87.898 ; Allergic rhinitis J30.9 ; Chronic pain G89.29 and Depression with anxiety F41.[address] [address] Mar, [address] [address] Mar, Allergic rhinitis J30.9 ; URI (upper respiratory infection) J06.9 and Other viral agents as the cause of diseases classified elsewhere B97.89 [facility] [id number] [place] [address] Feb, Acute nasopharyngitis [common cold] J00 and Acute diarrhea R19.[address] [address] Feb, Depression F32.[address] [address] Jan, Otitis media, right H66.[address] [address] Jan, [id number] [place] [address] Jan, Type 2 diabetes mellitus with diabetic neuropathy, unspecified E11.40 [place] [address] [address] Jan, [place] [address] [address] Jan, Hyperlipemia E78.5 [place] [address] [address] Jan, Type 2 diabetes mellitus with diabetic neuropathy, unspecified E11.40 ; Emphysema, unspecified J43.9 ; CAD (coronary artery disease) I25.10 and Hyperlipemia E78.5 [place] [address] [address] Dec, Allergic rhinitis J30.9 and Fungal infection B49 [place] [address] [address] Dec, [place] [address] [address] Dec, [place] [address] [address] Dec, Chest pain R07.9 ; CAD (coronary artery disease) I25.10 ; Hypertension I10 and Hyperlipemia E78.5 [place] [address] [address] Dec, Pain in thoracic spine M54.6 ; Gastro-esophageal reflux disease without esophagitis K21.9 ; Emphysema, unspecified J43.9 and Migraine without aura, not intractable, with status migrainosus G43.001 [place] [address] [address] Dec, [place] [address] [address] Nov, Influenza vaccine administered V04.81 [facility] [address] [facility] [id number] [address] Nov, [facility] [id number] [address] Sep, [facility] [id number] [address] Sep, [facility] [address] [address] Sep, CAD (coronary artery disease) 414.00 and Diabetes type 2, uncontrolled 250.02 [place] [id number] [place] [address] Sep, CAD (coronary artery disease) 414.00 ; Diabetes type 2, uncontrolled 250.02 and Migraine 346.90 IMMUNIZATIONS No Known Immunizations SOCIAL HISTORY Never Assessed REASON FOR VISIT Hydrocodone 10/27 PLAN OF CARE VITAL SIGNS MEDICATIONS Medication Instructions Dosage Frequency Start Date End Date Duration Status Hydrocodone-Acetaminophen 7.5-325 MG Orally every 6 hours as needed 1 tablet as needed Oct, 28 days Active RESULTS No Results PROCEDURES No Known procedures INSTRUCTIONS MEDICATIONS ADMINISTERED No Known Medications MEDICAL (GENERAL) HISTORY Type Description Date Medical History COPD Medical History Type 2 Diabetes Medical History HTN Medical History Cardiac stents July 2010 post [facility]-stent to [facility] Medical History Rheumatoid Arthritis Medical History 04/2016---Echo- 60%//mild hypertrophy at the base of the septum, mild mitral regurg/ mild tricuspid regurg. PAP about 10-15 mmHg Medical History 04/2016------Normal Lexiscan Medical History Elevated white blood cell count, unspecified Medical History Atherosclerotic heart disease of [place] coronary artery without angina pectoris Medical History [...]
--- OUTSIDE RECORDS SUMMARY | 2018-08-23 16:51 | XMS REPORT ---
Author Author PANCHOROBCLAU Organization [facility] Address [address] [place] [address] Care Team Providers Care School Counselor Name Role Phone DELEONROB MoranELE Unavailable PROBLEMS Type Condition ICD9-CM Code [id number] Code Onset Dates Condition Status SNOMED Code Problem Neuropathy G62.9 Active 990547595 Problem Other hammer toe(s) (acquired), right foot M20.41 Active 360567354 Problem Other hammer toe(s) (acquired), left foot M20.42 Active 46460042 Problem Intractable migraine without status migrainosus, unspecified migraine type G43.919 Active 772623496 Problem Gastro-esophageal reflux disease without esophagitis K21.9 Active 441733910 Problem Elevated white blood cell count, unspecified D72.829 Active 802635396 Problem Hypertension I10 Active 33757302 Problem Hyperlipemia E78.5 Active 14425778 Problem Hammer toe of left foot M20.42 Active 509512808 Problem Tobacco abuse Z72.0 Active 562573792 Problem Other chronic pain G89.29 Active 12717027 Problem Atherosclerotic heart disease of [place] coronary artery 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.10 Active 968863041304702 Problem Allergic rhinitis J30.9 Active 92557171 Problem Anxiety associated with depression F41.8 Active 317335954 Problem Emphysema, unspecified J43.9 Active 60371107 Problem Type 2 diabetes mellitus with diabetic neuropathy, unspecified E11.40 Active 43099479 Problem Rheumatoid arthritis involving multiple sites with positive rheumatoid factor M05.79 Active 816459650 Problem Primary insomnia F51.01 Active 9152842 Problem Chronic pain G89.29 Active 94001189 Problem Periodontitis K05.30 Active 94522951 Problem Vitamin D deficiency E55.9 Active 02056577 Problem OAB (overactive bladder) N32.81 Active 843513624 Problem Dependence on nocturnal oxygen therapy Z99.81 Active [id number] ALLERGIES No Information ENCOUNTERS Encounter Location Date Diagnosis [facility] [address] [address] 16 Jan, 2018 [facility] [id number] [place] [address] Dec, [facility] [id number] [place] [address] 24 Nov, 2017 [facility] [id number] [place] [address] 07 Nov, 2017 Chronic pain G89.29 [facility] [id number] [place] [address] 06 Nov, 2017 Chronic pain G89.29 [facility] [id number] [place] [address] Oct, Dysuria R30.0 ; Intractable migraine without status migrainosus, unspecified migraine type G43.919 and Back pain at L4-L5 level M54.5 [facility] [id number] [place] [address] Oct, Orthostatic hypotension I95.1 [facility] [id number] [place] [address] Oct, Localized swelling of both lower legs R22.43 ; Onychomycosis B35.1 and Type 2 diabetes mellitus with diabetic neuropathy, unspecified E11.40 [facility] [address] [place] [address] Oct, [facility] [id number] [place] [address] Oct, Elevated white blood cell count, unspecified D72.829 [facility] [id number] [place] [address] Oct, Elevated white blood cell count, unspecified D72.829 [facility] [id number] [place] [address] Oct, Chronic pain G89.29 [facility] [address] [place] [address] Oct, [facility] [id number] [place] [address] Oct, [facility] [id number] [place] [address] Oct, Orthostatic hypotension I95.1 ; Dizziness R42 and Neuropathy G62.9 [facility] [id number] [place] [address] Oct, Dizziness R42 ; Low back pain M54.5 ; Other chronic pain G89.29 ; Nausea R11.0 and Orthostatic hypotension I95.1 [facility] [id number] [place] [address] Sep, Rheumatoid arthritis involving multiple sites with positive rheumatoid factor M05.79 and Tobacco abuse Z72.0 [facility] [id number] [place] [address] Sep, Chronic pain G89.29 [facility] [address] [address] Aug, Type 2 diabetes mellitus with diabetic neuropathy, unspecified E11.40 ; Hypertension I10 ; Hyperlipemia E78.5 ; Gastro-esophageal reflux disease without esophagitis K21.9 ; Emphysema, unspecified J43.9 ; Anxiety associated with depression F41.8 ; Vitamin D deficiency E55.9 ; Chronic pain G89.29 ; Tobacco abuse Z72.0 ; Overweight (BMI 25.0-29.9) E66.3 ; Atherosclerotic heart disease of [place] coronary artery 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.10 ; OAB (overactive bladder) N32.81 and Primary insomnia F51.01 [facility] [address] [place] [address] July, [facility] [id number] [place] [address] July, [facility] [address], [place] [address] July, Chronic pain G89.29 [facility] [id number] [place] [address] July, [facility] [id number] [place] [address] July, Onychomycosis B35.1 ; Hammer toe of left foot M20.42 and Type 2 diabetes mellitus with diabetic neuropathy, unspecified E11.40 [facility] [id number] [place] [address] July, [facility] [id number] [place] [address] July, Chronic pain G89.29 and Neuropathy G62.9 [facility] [id number] [place] [address] July, [facility] [id number] [place] [address] July, [facility] [id number] [place] [address] Jun, [facility] [id number] [place] [address] Jun, Chronic pain G89.29 [facility] [id number] [place] [address] Jun, [facility] [id number] [place] [address] Jun, [facility] [id number] [place] [address] Jun, Visit for TB skin test Z11.1 [facility] [id number] [place] [address] Jun, [facility] [id number] [place] [address] Jun, [facility] [id number] [place] [address] Jun, Tobacco abuse Z72.0 and Rheumatoid arthritis involving multiple sites with positive rheumatoid factor M05.79 [facility] [id number] [place] [address] Jun, Anxiety F41.9 ; Acute non-recurrent maxillary sinusitis J01.00 and Chronic pain G89.29 [facility] [id number] [place] [address] Jun, [facility] [address] [address] May, Rheumatoid arthritis involving multiple sites with positive rheumatoid factor M05.79 [facility] [id number] [place] [address] May, Chronic pain G89.29 [facility] [id number] [place] [address] May, [facility] [id number] [place] [address] May, [facility] [id number] [place] [address] May, [facility] [id number] [place] [address] May, Type 2 diabetes mellitus with diabetic neuropathy, unspecified E11.40 [facility] [id number] [place] [address] May, Type 2 diabetes mellitus with diabetic neuropathy, unspecified E11.40 ; Emphysema, unspecified J43.9 ; Hypertension I10 ; Hyperlipemia E78.5 ; Vitamin D deficiency E55.9 ; Right medial knee pain M25.561 ; Controlled substance agreement signed Z79.899 ; Chronic pain G89.29 ; Allergic rhinitis J30.9 ; Anxiety associated with depression F41.8 ; Neuropathy G62.9 and Gastro- esophageal reflux disease without esophagitis K21.9 [facility] [id number] [place] [address] Apr, Chronic pain G89.29 [facility] [address] [address] 16 Apr, 2017 Other hammer toe(s) (acquired), left foot M20.42 ; Other hammer toe(s) (acquired), right foot M20.41 ; Type 2 diabetes mellitus with diabetic neuropathy, unspecified E11.40 and Onychomycosis B35.1 [facility] [address] [address] 2017 Gastro-esophageal reflux disease without esophagitis K21.9 [facility] [address] [address] 02 Apr, 2017 Controlled substance agreement signed Z79.899 [facility] [address] [address] Mar, Chronic pain G89.29 [facility] [address] [address] Mar, Emphysema, unspecified J43.9 and Type 2 diabetes mellitus with diabetic neuropathy, unspecified E11.40 [facility] [id number] [place] [address] Mar, Dysuria R30.0 ; Vaginal candidiasis B37.3 and Acute nonintractable headache, unspecified headache type R51 [facility] [id number] [place] [address] Feb, Neuropathy G62.9 and Chronic pain G89.29 [facility] [address] [address] Feb, Gastro-esophageal reflux disease without esophagitis K21.9 [facility] [address] [address] Feb, [facility] [address] [place] [address] Feb, Rheumatoid arthritis involving multiple sites with positive rheumatoid factor M05.79 and COPD with acute exacerbation J44.1 [facility] [id number] [place] [address] 08 Feb, 2017 Vaginal odor N89.8 ; Vaginal irritation N89.8 ; Candidal dermatitis B37.2 and Screening breast examination Z12.31 [facility] [id number] [place] [address] Feb, [facility] [address] [address] Feb, [facility] [id number] [place] [address] Feb, [facility] [id number] [place] [address] Feb, COPD with exacerbation J44.1 ; Tobacco abuse counseling Z71.6 ; Tobacco abuse Z72.0 ; Rheumatoid arthritis involving multiple sites with positive rheumatoid factor M05.79 and Hyperlipemia E78.5 [facility] [id number] [place] [address] Feb, [facility] [id number] [place] [id number] Jan, [facility] [id number] [place] [address] Jan, Chronic pain G89.29 [facility] [id number] [place] [id number] Jan, Dental examination Z01.20 [facility] [id number] [place] [address] 19 Jan, 2017 Back pain of lumbar region with sciatica M54.40 [facility] [id number] [place] [address] Jan, Acute bacterial conjunctivitis of both eyes H10.33 [facility] [id number] [place] [address] 02 Jan, 2017 Chronic pain G89.29 [facility] [address] [address] Dec, Type 2 diabetes mellitus with diabetic neuropathy, unspecified E11.40 ; Hypertension I10 ; Hyperlipemia E78.5 ; Gastro-esophageal reflux disease without esophagitis K21.9 ; Anxiety associated with depression F41.8 ; Allergic rhinitis J30.9 ; Neuropathy G62.9 and Dependence on nocturnal oxygen therapy Z99.81 [facility] [address] [address] Dec, [facility] [address] [address] Dec, [facility] [address] [address] Dec, Encounter for immunization Z23 [facility] [address] [address] 05 Dec, 2016 Type 2 diabetes mellitus with diabetic neuropathy, unspecified E11.40 and Chronic pain G89.29 [facility] [address] [address] Nov, Gastro-esophageal reflux disease without esophagitis K21.9 [facility] [address] [address] Nov, Peripheral edema R60.9 and Chest pain in adult R07.9 [facility] [address] [address] 07 Nov, 2016 Chronic pain G89.29 [facility] [address] [address] Oct, [facility] [address] [address] Oct, [facility] [address] [place] [address] Oct, 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 M05.731 [facility] [address] [place] [address] Oct, [facility] [id number] [place] [address] Oct, Acute exacerbation of chronic obstructive pulmonary disease (COPD) J44.1 and Canker sore K12.0 [facility] [id number] [place] [address] Oct, [facility] [id number] [place] [address] Oct, [facility] [id number] [place] [address] Oct, Chronic pain G89.29 [facility] [address] [id number] Oct, Dental examination Z01.20 [facility] [id number] [place] [address] Oct, Dental examination Z01.20 and Periodontitis K05.30 [facility] [id number] [place] [id number] Oct, Dental examination Z01.20 [facility] [address] [place] [address] Sep, Abscess L02.91 [facility] [id number] [place] [address] Sep, Dental examination Z01.20 [facility] [id number] [place] [address] Sep, [facility] [id number] [place] [id number] 18 Syd, 2017 Dental examination Z01.20 and Dental caries K02.9 [facility] [address] [place] [address] 18 Sep, 2016 Primary insomnia F51.01 and Anxiety associated with depression F41.8 [facility] [id number] [place] [address] 14 Sep, 2016 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 M05.731 [facility] [id number] [place] [address] Sep, Chronic pain G89.29 [address] [id number] [place] [address] Sep, Type 2 diabetes mellitus with diabetic neuropathy, unspecified E11.40 ; Emphysema, unspecified J43.9 ; Gastro-esophageal reflux disease without esophagitis K21.9 ; Hypertension I10 ; Hyperlipemia E78.5 ; Anxiety associated with depression F41.8 ; Chronic pain G89.29 ; Vitamin D deficiency E55.9 and Primary insomnia F51.01 [facility] [id number] [place] [address] 16 Aug, 2016 Anxiety associated with depression F41.8 [facility] [id number] [place] [address] 13 Aug, 2016 Chronic pain G89.29 and Neuropathy G62.9 [facility] [id number] [place] [address] Aug, Type 2 diabetes mellitus with diabetic neuropathy, unspecified E11.40 ; Rheumatoid arthritis involving multiple sites with positive rheumatoid factor M05.79 ; Vitamin D deficiency E55.9 ; Anxiety associated with depression F41.8 and Primary insomnia F51.01 [facility] [id number] [place] [address] July, Emphysema, unspecified J43.9 [facility] [id number] [place] [address] July, Allergic rhinitis J30.9 [facility] [address] [place] [address] July, Allergic rhinitis J30.9 ; Emphysema, unspecified J43.9 and 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 M05.731 [facility] [id number] [place] [address] July, Neuropathy G62.9 and Chronic pain G89.29 [facility] [id number] [place] [address] July, Rheumatoid arthritis involving multiple sites with positive rheumatoid factor M05.79 [facility] [address] [address] Jun, [facility] [address] [address] Jun, Neuropathy G62.9 and Chronic pain G89.29 [facility] [id number] [place] [address] May, Neuropathy G62.9 and Chronic pain G89.29 [facility] [id number] [place] [address] May, [facility] [id number] [place] [address] May, [facility] [id number] [place] [address] May, Type 2 diabetes mellitus with diabetic [...] positive rheumatoid factor M05.732 [facility] [address] [place] [address] 14 Apr, 2016 Chronic pain G89.29 [facility] [id number] [place] [address] Mar, Gastro-esophageal reflux disease without esophagitis K21.9 [facility] [id number] [place] [address] Mar, [facility] [id number] [place] [address] Mar, 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 M05.731 [facility] [id number] [place] [address] Mar, Chronic pain G89.29 [facility] [id number] [place] [address] Feb, Hyperlipemia E78.5 [facility] [id number] [place] [address] Feb, Abnormal breath sounds R06.89 ; COPD with exacerbation J44.1 and Fatigue, unspecified type R53.83 [facility] [id number] [place] [address] Feb, Neuropathy G62.9 ; Abnormal lung sounds R09.89 and Bronchitis J40 [facility] [id number] [place] [address] Feb, Bronchitis J40 [facility] [id number] [place] [address] Feb, Chronic pain G89.29 [facility] [id number] [place] [address] Jan, Type 2 diabetes mellitus with diabetic neuropathy, unspecified E11.40 ; 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 M05.731 and Hyperlipemia E78.5 [facility] [address] [place] [address] Jan, 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 M05.731 [facility] [id number] [place] [address] Jan, De Quervain's disease (radial styloid tenosynovitis) M65.4 ; Closed nondisplaced fracture of scaphoid of left wrist, unspecified portion of scaphoid, initial encounter S62.002A and Peripheral tear of medial meniscus of left knee, unspecified whether old or current tear, initial encounter S83.222A [facility] [id number] [place] [address] Jan, Hypertension I10 ; Type 2 diabetes mellitus with diabetic neuropathy, unspecified E11.40 ; Hyperlipemia E78.5 ; Allergic rhinitis J30.9 ; Neuropathy G62.9 ; 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 M05.731 ; Acute non-recurrent maxillary sinusitis J01.00 and Chronic pain G89.29 [facility] [id number] [place] [address] Dec, [facility] [id number] [place] [address] Dec, [facility] [id number] [place] [address] Dec, Type 2 diabetes mellitus with diabetic neuropathy, unspecified E11.40 ; Emphysema, unspecified J43.9 ; Gastro-esophageal reflux disease without esophagitis K21.9 ; Hypertension I10 ; Hyperlipemia E78.5 ; 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 M05.731 ; Elevated white blood cell count, unspecified D72.829 ; Acute non- recurrent frontal sinusitis J01.10 and Chronic pain G89.29 [facility] [id number] [place] [address] Nov, [facility] [address] [place] [address] Nov, Elevated white blood cell count, unspecified D72.829 ; Encounter for immunization Z23 ; 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 M05.731 ; Injury of left hand S69.92XA ; Pain in left knee M25.562 and Other chronic pain G89.29 [facility] [id number] [place] [address] Nov, [facility] [id number] [place] [address] Nov, [facility] [id number] [place] [address] Oct, [facility] [id number] [place] [address] Oct, Hyperlipemia E78.5 [facility] [id number] [place] [address] Oct, [facility] [id number] [place] [address] Oct, Type 2 diabetes mellitus with diabetic neuropathy, unspecified E11.40 ; Neuropathy G62.9 ; Hypertension I10 ; Chronic pain G89.29 and Hyperlipemia E78.5 [place] [id number] [place] [phone] Oct, Emphysema, unspecified J43.9 and Rheumatoid arthritis of left wrist without organ or system involvement with positive rheumatoid factor M05.732 [place] [id number] [place] [phone] Sep, Chronic pain syndrome G89.4 [place] [id number] [place] [phone] Sep, [place] [id number] [place] [id number] Sep, [place] [address] [id number] [address] Sep, Closed nondisplaced fracture of scaphoid of left wrist, unspecified portion of scaphoid, initial encounter S62.002A [facility] [id number] [place] [address] Sep, Type 2 diabetes mellitus with diabetic neuropathy, unspecified E11.40 ; Hypertension I10 ; Hyperlipemia E78.5 and Acute non-recurrent maxillary sinusitis J01.00 [facility] [id number] [place] [address] Sep, [place] [id number] [place] [address] Sep, [facility] [id number] [place] [address] Sep, [place] [id number] [place] [address] Sep, [facility] [id number] [place] [address] Aug, Epigastric pain R10.13 and Right upper quadrant pain R10.11 [place] [id number] [place] [address] Aug, Closed nondisplaced fracture of scaphoid of left wrist, unspecified portion of scaphoid, initial encounter S62.002A [place] [id number] [place] [address] Aug, [facility] [id number] [place] [address] Aug, [facility] [id number] [place] [address] Aug, Shortness of breath R06.02 ; Epigastric pain R10.13 and Injury of left lower arm, initial encounter S59.912A [place] [id number] [place] [address] Aug, Coronary artery disease involving [place] heart with angina pectoris, unspecified vessel or lesion type I25.119 ; Pulmonary emphysema, unspecified emphysema type J43.9 and Snoring R06.83 [place] [id number] [place] [address] Aug, [place] [id number] [place] [address] Aug, Emphysema, unspecified J43.9 ; Atherosclerotic heart disease of [place] coronary artery 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.10 and Hypertension I10 [place] [id number] [place] [address] July, [place] [id number] [place] [address] July, Closed nondisplaced fracture of scaphoid of left wrist, unspecified portion of scaphoid, initial encounter S62.002A [place] [id number] [place] [address] July, [place] [id number] [place] [address] July, Type 2 diabetes mellitus with diabetic neuropathy, unspecified E11.40 ; Emphysema, unspecified J43.9 ; Atherosclerotic heart disease of [place] coronary artery 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.10 ; [...] agents L24.89 and Hospital discharge follow-up Z09 [place] [id number] [place] [address] July, [place] [id number] [place] [address] July, Type 2 diabetes mellitus with diabetic neuropathy, unspecified E11.40 [facility] [address] [address] July, Type 2 diabetes mellitus with diabetic neuropathy, unspecified E11.40 and Rheumatoid arthritis of left wrist without organ or system involvement with positive rheumatoid factor M05.732 [facility] [address] [address] July, [facility] [id number] [place] [address] July, [facility] [id number] [place] [address] Jun, [facility] [id number] [place] [address] Jun, [facility] [id number] [place] [address] Jun, 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 [facility] [id number] [place] [address] Jun, [facility] [id number] [place] [address] Jun, 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 [facility] [id number] [address] Jun, [facility] [address] [address] Jun, [facility] [address] [address] Jun, Encounter for PPD test Z11.1 ; 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 M05.731 and Rheumatoid arthritis of left wrist without organ or system involvement with positive rheumatoid factor M05.732 [facility] [address] [address] Jun, Type 2 diabetes mellitus with diabetic neuropathy, unspecified E11.40 [place] [id number] [place] [address] May, Type 2 diabetes mellitus with diabetic neuropathy, unspecified E11.40 ; Emphysema, unspecified J43.9 ; 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 M05.731 ; Rheumatoid arthritis of left wrist without organ or system involvement with positive rheumatoid factor M05.732 and Chronic pain G89.29 [place] [address] [address] May, [place] [address] [address] May, Swelling of hand joint M25.449 ; Ankle swelling M25.473 and Joint pain M25.50 [place] [address] [address] May, Emphysema, unspecified J43.9 [place] [address] [address] May, Gastroenteritis K52.9 and Hypertension I10 [place] [address] [address] Apr, [place] [address] [address] Apr, [place] [id number] [place] [address] Apr, [place] [address] [address] Apr, Type 2 diabetes mellitus with diabetic neuropathy, unspecified E11.40 ; Emphysema, unspecified J43.9 ; Atherosclerotic heart disease of [place] coronary artery 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.10 ; Migraine without aura, not intractable, with status migrainosus G43.001 ; Gastro-esophageal reflux disease without esophagitis K21.9 ; CAD (coronary artery disease) I25.10 ; Hypertension I10 ; Hyperlipemia E78.5 ; Allergic rhinitis J30.9 ; Neuropathy G62.9 ; Anxiety associated with depression F41.8 and Injury of left hand S69.92XA [place] [address] [address] Apr, [place] [address] [address] Apr, [place] [address] [address] Apr, Type 2 diabetes mellitus with diabetic neuropathy, unspecified E11.40 ; Emphysema, unspecified J43.9 ; Essential (primary) hypertension I10 ; Atherosclerotic heart disease of [place] coronary artery 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.10 ; Gastro-esophageal reflux disease without esophagitis K21.9 ; CAD (coronary artery disease) I25.10 ; Hyperlipemia E78.5 ; Hypertension I10 ; History of solitary pulmonary nodule Z87.898 ; Allergic rhinitis J30.9 ; Chronic pain G89.29 and Depression with anxiety F41.[address] [address] Mar, [address] [address] Mar, Allergic rhinitis J30.9 ; URI (upper respiratory infection) J06.9 and Other viral agents as the cause of diseases classified elsewhere B97.89 [facility] [id number] [place] [address] Feb, Acute nasopharyngitis [common cold] J00 and Acute diarrhea R19.[address] [address] Feb, Depression F32.[address] [address] Jan, Otitis media, right H66.[address] [address] Jan, [address] [id number] [place] [address] Jan, Type 2 diabetes mellitus with diabetic neuropathy, unspecified E11.40 [place] [address] [address] Jan, [place] [address] [address] Jan, Hyperlipemia E78.5 [place] [address] [address] Jan, Type 2 diabetes mellitus with diabetic neuropathy, unspecified E11.40 ; Emphysema, unspecified J43.9 ; CAD (coronary artery disease) I25.10 and Hyperlipemia E78.5 [place] [address] [address] Dec, Allergic rhinitis J30.9 and Fungal infection B49 [place] [address] [address] Dec, [place] [address] [address] Dec, [place] [address] [address] Dec, Chest pain R07.9 ; CAD (coronary artery disease) I25.10 ; Hypertension I10 and Hyperlipemia E78.5 [place] [address] [address] Dec, Pain in thoracic spine M54.6 ; Gastro-esophageal reflux disease without esophagitis K21.9 ; Emphysema, unspecified J43.9 and Migraine without aura, not intractable, with status migrainosus G43.001 [place] [address] [address] Dec, [place] [address] [address] Nov, Influenza vaccine administered V04.81 [facility] [address] [facility] [id number] [address] Nov, [facility] [id number] [address] Sep, [facility] [id number] [address] Sep, [facility] [id number] [place] [address] Sep, CAD (coronary artery disease) 414.00 and Diabetes type 2, uncontrolled 250.02 [place] [address] [place] [address] Sep, CAD (coronary artery disease) 414.00 ; Diabetes type 2, uncontrolled 250.02 and Migraine 346.90 IMMUNIZATIONS No Known Immunizations SOCIAL HISTORY Never Assessed REASON FOR VISIT Controlled Med Refill PLAN OF CARE VITAL SIGNS MEDICATIONS Unknown Medications RESULTS No Results PROCEDURES No Known procedures INSTRUCTIONS MEDICATIONS ADMINISTERED No Known Medications MEDICAL (GENERAL) HISTORY Type Description Date Medical History COPD Medical History Type 2 Diabetes Medical History HTN Medical History Cardiac stents July 2010 post NE-stent to LAD Medical History Rheumatoid Arthritis Medical History 04/2016---Echo- 60%//mild hypertrophy at the base of the septum, mild mitral regurg/ mild tricuspid regurg. PAP about 10-15 mmHg Medical History 04/2016------Normal Lexiscan Medical History Elevated white blood cell count, unspecified Medical History Atherosclerotic heart disease of [place] coronary artery without angina pectoris Medical History [...]
--- OUTSIDE RECORDS SUMMARY | 2018-08-23 16:52 | XMS REPORT ---
Author Author PANCHOROBCLAU Organization [facility] Address [address] [place] [address] Care Team Providers Care Staff Toxicologist Name Role Phone DELEONROB MoranELE Unavailable PROBLEMS Type Condition ICD9-CM Code GKZ36-TB Code Onset Dates Condition Status SNOMED Code Problem Neuropathy G62.9 Active 715187345 Problem Other hammer toe(s) (acquired), right foot M20.41 Active 169228457 Problem Other hammer toe(s) (acquired), left foot M20.42 Active 08878027 Problem Intractable migraine without status migrainosus, unspecified migraine type G43.919 Active 658294532 Problem Gastro-esophageal reflux disease without esophagitis K21.9 Active 340240984 Problem Elevated white blood cell count, unspecified D72.829 Active 625003476 Problem Hypertension I10 Active 06770915 Problem Hyperlipemia E78.5 Active 70904221 Problem Hammer toe of left foot M20.42 Active 891841554 Problem Tobacco abuse Z72.0 Active 602575306 Problem Other chronic pain G89.29 Active 76163546 Problem Atherosclerotic heart disease of [place] coronary artery 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.10 Active 298930402455755 Problem Allergic rhinitis J30.9 Active 48332474 Problem Anxiety associated with depression F41.8 Active 095454088 Problem Emphysema, unspecified J43.9 Active 22168289 Problem Type 2 diabetes mellitus with diabetic neuropathy, unspecified E11.40 Active 63819492 Problem Rheumatoid arthritis involving multiple sites with positive rheumatoid factor M05.79 Active 089820681 Problem Primary insomnia F51.01 Active 7275485 Problem Chronic pain G89.29 Active 13987188 Problem Periodontitis K05.30 Active 01898352 Problem Vitamin D deficiency E55.9 Active 77866495 Problem OAB (overactive bladder) N32.81 Active 270472837 Problem Dependence on nocturnal oxygen therapy Z99.81 Active [id number] ALLERGIES No Information ENCOUNTERS Encounter Location Date Diagnosis [facility] [address] [address] 16 Jan, 2018 [facility] [id number] [place] [address] Dec, [facility] [id number] [place] [address] 24 Nov, 2017 [facility] [id number] [place] [address] 07 Nov, 2017 Chronic pain G89.29 [facility] [id number] [place] [address] 06 Nov, 2017 Chronic pain G89.29 [facility] [id number] [place] [address] Oct, Dysuria R30.0 ; Intractable migraine without status migrainosus, unspecified migraine type G43.919 and Back pain at L4-L5 level M54.5 [facility] [id number] [place] [address] Oct, Orthostatic hypotension I95.1 [facility] [id number] [place] [address] Oct, Localized swelling of both lower legs R22.43 ; Onychomycosis B35.1 and Type 2 diabetes mellitus with diabetic neuropathy, unspecified E11.40 [facility] [address] [place] [address] Oct, [facility] [id number] [place] [address] Oct, Elevated white blood cell count, unspecified D72.829 [facility] [id number] [place] [address] Oct, Elevated white blood cell count, unspecified D72.829 [facility] [id number] [place] [address] Oct, Chronic pain G89.29 [facility] [id number] [place] [address] Oct, [facility] [id number] [place] [address] Oct, [facility] [id number] [place] [address] Oct, Orthostatic hypotension I95.1 ; Dizziness R42 and Neuropathy G62.9 [facility] [id number] [place] [address] Oct, Dizziness R42 ; Low back pain M54.5 ; Other chronic pain G89.29 ; Nausea R11.0 and Orthostatic hypotension I95.1 [facility] [id number] [place] [address] Sep, Rheumatoid arthritis involving multiple sites with positive rheumatoid factor M05.79 and Tobacco abuse Z72.0 [facility] [id number] [place] [address] Sep, Chronic pain G89.29 [facility] [address] [address] Aug, Type 2 diabetes mellitus with diabetic neuropathy, unspecified E11.40 ; Hypertension I10 ; Hyperlipemia E78.5 ; Gastro-esophageal reflux disease without esophagitis K21.9 ; Emphysema, unspecified J43.9 ; Anxiety associated with depression F41.8 ; Vitamin D deficiency E55.9 ; Chronic pain G89.29 ; Tobacco abuse Z72.0 ; Overweight (BMI 25.0-29.9) E66.3 ; Atherosclerotic heart disease of [place] coronary artery 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.10 ; OAB (overactive bladder) N32.81 and Primary insomnia F51.01 [facility] [id number] [place] [address] July, [facility] [id number] [place] [address] July, [facility] [address] [address] July, Chronic pain G89.29 [facility] [id number] [place] [address] July, [facility] [id number] [place] [address] July, Onychomycosis B35.1 ; Hammer toe of left foot M20.42 and Type 2 diabetes mellitus with diabetic neuropathy, unspecified E11.40 [facility] [id number] [place] [address] July, [facility] [id number] [place] [address] July, Chronic pain G89.29 and Neuropathy G62.9 [facility] [id number] [place] [address] July, [facility] [id number] [place] [address] July, [facility] [id number] [place] [address] Jun, [facility] [id number] [place] [address] Jun, Chronic pain G89.29 [facility] [id number] [place] [address] Jun, [facility] [id number] [place] [address] Jun, [facility] [id number] [place] [address] Jun, Visit for TB skin test Z11.1 [facility] [id number] [place] [address] Jun, [facility] [id number] [place] [address] Jun, [facility] [id number] [place] [address] Jun, Tobacco abuse Z72.0 and Rheumatoid arthritis involving multiple sites with positive rheumatoid factor M05.79 [facility] [id number] [place] [address] Jun, Anxiety F41.9 ; Acute non-recurrent maxillary sinusitis J01.00 and Chronic pain G89.29 [facility] [id number] [place] [address] Jun, [facility] [address] [address] May, Rheumatoid arthritis involving multiple sites with positive rheumatoid factor M05.79 [facility] [id number] [place] [address] May, Chronic pain G89.29 [facility] [id number] [place] [address] May, [facility] [id number] [place] [address] May, [facility] [id number] [place] [address] May, [facility] [id number] [place] [address] May, Type 2 diabetes mellitus with diabetic neuropathy, unspecified E11.40 [facility] [id number] [place] [address] May, Type 2 diabetes mellitus with diabetic neuropathy, unspecified E11.40 ; Emphysema, unspecified J43.9 ; Hypertension I10 ; Hyperlipemia E78.5 ; Vitamin D deficiency E55.9 ; Right medial knee pain M25.561 ; Controlled substance agreement signed Z79.899 ; Chronic pain G89.29 ; Allergic rhinitis J30.9 ; Anxiety associated with depression F41.8 ; Neuropathy G62.9 and Gastro- esophageal reflux disease without esophagitis K21.9 [facility] [id number] [place] [address] Apr, Chronic pain G89.29 [facility] [address] [address] 16 Apr, 2017 Other hammer toe(s) (acquired), left foot M20.42 ; Other hammer toe(s) (acquired), right foot M20.41 ; Type 2 diabetes mellitus with diabetic neuropathy, unspecified E11.40 and Onychomycosis B35.1 [facility] [address] [address] 2017 Gastro-esophageal reflux disease without esophagitis K21.9 [facility] [address] [address] 02 Apr, 2017 Controlled substance agreement signed Z79.899 [facility] [address] [address] Mar, Chronic pain G89.29 [facility] [address] [address] Mar, Emphysema, unspecified J43.9 and Type 2 diabetes mellitus with diabetic neuropathy, unspecified E11.40 [facility] [id number] [place] [address] Mar, Dysuria R30.0 ; Vaginal candidiasis B37.3 and Acute nonintractable headache, unspecified headache type R51 [facility] [id number] [place] [address] Feb, Neuropathy G62.9 and Chronic pain G89.29 [facility] [address] [address] Feb, Gastro-esophageal reflux disease without esophagitis K21.9 [facility] [facility] [address] [address] Feb, [facility] [id number] [place] [address] Feb, Rheumatoid arthritis involving multiple sites with positive rheumatoid factor M05.79 and COPD with acute exacerbation J44.1 [facility] [id number] [place] [address] 08 Feb, 2017 Vaginal odor N89.8 ; Vaginal irritation N89.8 ; Candidal dermatitis B37.2 and Screening breast examination Z12.31 [facility] [id number] [place] [address] Feb, [facility] [address] [address] Feb, [facility] [id number] [place] [address] Feb, [facility] [id number] [place] [address] Feb, COPD with exacerbation J44.1 ; Tobacco abuse counseling Z71.6 ; Tobacco abuse Z72.0 ; Rheumatoid arthritis involving multiple sites with positive rheumatoid factor M05.79 and Hyperlipemia E78.5 [facility] [id number] [place] [address] Feb, [facility] [id number] [place] [id number] Jan, [facility] [id number] [place] [address] Jan, Chronic pain G89.29 [facility] [id number] [place] [id number] Jan, Dental examination Z01.20 [facility] [id number] [place] [address] 19 Jan, 2017 Back pain of lumbar region with sciatica M54.40 [facility] [id number] [place] [address] Jan, Acute bacterial conjunctivitis of both eyes H10.33 [facility] [id number] [place] [address] 02 Jan, 2017 Chronic pain G89.29 [facility] [address] [address] Dec, Type 2 diabetes mellitus with diabetic neuropathy, unspecified E11.40 ; Hypertension I10 ; Hyperlipemia E78.5 ; Gastro-esophageal reflux disease without esophagitis K21.9 ; Anxiety associated with depression F41.8 ; Allergic rhinitis J30.9 ; Neuropathy G62.9 and Dependence on nocturnal oxygen therapy Z99.81 [place] [address] [address] Dec, [facility] [address] [address] Dec, [facility] [address] [address] Dec, Encounter for immunization Z23 [facility] [address] [address] 05 Dec, 2016 Type 2 diabetes mellitus with diabetic neuropathy, unspecified E11.40 and Chronic pain G89.29 [facility] [address] [address] Nov, Gastro-esophageal reflux disease without esophagitis K21.9 [facility] [address] [address] Nov, Peripheral edema R60.9 and Chest pain in adult R07.9 [facility] [address] [address] 07 Nov, 2016 Chronic pain G89.29 [facility] [address] [address] Oct, [facility] [address] [address] Oct, [facility] [address] [place] [address] Oct, 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 M05.731 [facility] [id number] [place] [address] Oct, [facility] [id number] [place] [address] Oct, Acute exacerbation of chronic obstructive pulmonary disease (COPD) J44.1 and Canker sore K12.0 [facility] [id number] [place] [address] Oct, [facility] [id number] [place] [address] Oct, [facility] [id number] [place] [address] Oct, Chronic pain G89.29 [facility] [address] [id number] Oct, Dental examination Z01.20 [facility] [id number] [place] [address] Oct, Dental examination Z01.20 and Periodontitis K05.30 [facility] [id number] [place] [id number] Oct, Dental examination Z01.20 [facility] [id number] [place] [address] Sep, Abscess L02.91 [facility] [id number] [place] [address] Sep, Dental examination Z01.20 [facility] [id number] [place] [address] Sep, [facility] [id number] [place] [id number] 18 Syd, 2017 Dental examination Z01.20 and Dental caries K02.9 [facility] [address] [place] [address] 18 Sep, 2016 Primary insomnia F51.01 and Anxiety associated with depression F41.8 [facility] [id number] [place] [address] 14 Sep, 2016 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 M05.731 [facility] [id number] [place] [address] Sep, Chronic pain G89.29 [place] [id number] [place] [address] Sep, Type 2 diabetes mellitus with diabetic neuropathy, unspecified E11.40 ; Emphysema, unspecified J43.9 ; Gastro-esophageal reflux disease without esophagitis K21.9 ; Hypertension I10 ; Hyperlipemia E78.5 ; Anxiety associated with depression F41.8 ; Chronic pain G89.29 ; Vitamin D deficiency E55.9 and Primary insomnia F51.01 [facility] [id number] [place] [address] 16 Aug, 2016 Anxiety associated with depression F41.8 [facility] [id number] [place] [address] 13 Aug, 2016 Chronic pain G89.29 and Neuropathy G62.9 [facility] [id number] [place] [address] Aug, Type 2 diabetes mellitus with diabetic neuropathy, unspecified E11.40 ; Rheumatoid arthritis involving multiple sites with positive rheumatoid factor M05.79 ; Vitamin D deficiency E55.9 ; Anxiety associated with depression F41.8 and Primary insomnia F51.01 [facility] [id number] [place] [address] July, Emphysema, unspecified J43.9 [facility] [id number] [place] [address] July, Allergic rhinitis J30.9 [facility] [address] [place] [address] July, Allergic rhinitis J30.9 ; Emphysema, unspecified J43.9 and 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 M05.731 [facility] [id number] [place] [address] July, Neuropathy G62.9 and Chronic pain G89.29 [facility] [id number] [place] [address] July, Rheumatoid arthritis involving multiple sites with positive rheumatoid factor M05.79 [place] [address] [address] Jun, [facility] [facility] [address] [address] Jun, Neuropathy G62.9 and Chronic pain G89.29 [facility] [id number] [place] [address] May, Neuropathy G62.9 and Chronic pain G89.29 [facility] [id number] [place] [address] May, [facility] [id number] [place] [address] May, [facility] [id number] [place] [address] May, Type 2 diabetes mellitus with diabetic [...] system involvement with positive rheumatoid factor M05.732 [facility] [address] [place] [address] 14 Apr, 2016 Chronic pain G89.29 [facility] [id number] [place] [address] Mar, Gastro-esophageal reflux disease without esophagitis K21.9 [facility] [id number] [place] [address] Mar, [facility] [id number] [place] [address] Mar, Rheumatoid arthritis with rheumatoid factor of right wrist without organ or systems involvement M05.731 [facility] [id number] [place] [address] Mar, Chronic pain G89.29 [facility] [id number] [place] [address] Feb, Hyperlipemia E78.5 [facility] [id number] [place] [address] Feb, Abnormal breath sounds R06.89 ; COPD with exacerbation J44.1 and Fatigue, unspecified type R53.83 [facility] [id number] [place] [address] Feb, Neuropathy G62.9 ; Abnormal lung sounds R09.89 and Bronchitis J40 [facility] [id number] [place] [address] Feb, Bronchitis J40 [facility] [id number] [place] [address] Feb, Chronic pain G89.29 [facility] [id number] [place] [address] Jan, Type 2 diabetes mellitus with diabetic neuropathy, unspecified E11.40 ; Rheumatoid arthritis with rheumatoid factor of right wrist without organ or systems involvement M05.731 and Hyperlipemia E78.5 [place] [address] [place] [address] Jan, Rheumatoid arthritis with rheumatoid factor of right wrist without organ or systems involvement M05.731 [facility] [id number] [place] [address] Jan, De Quervain's disease (radial styloid tenosynovitis) M65.4 ; Closed nondisplaced fracture of scaphoid of left wrist, unspecified portion of scaphoid, initial encounter S62.002A and Peripheral tear of medial meniscus of left knee, unspecified whether old or current tear, initial encounter S83.222A [facility] [facility] [id number] [place] [address] Jan, Hypertension I10 ; Type 2 diabetes mellitus with diabetic neuropathy, unspecified E11.40 ; Hyperlipemia E78.5 ; Allergic rhinitis J30.9 ; Neuropathy G62.9 ; Rheumatoid arthritis with rheumatoid factor of right wrist without organ or systems involvement M05.731 ; Acute non-recurrent maxillary sinusitis J01.00 and Chronic pain G89.29 [facility] [id number] [place] [address] Dec, [facility] [id number] [place] [address] Dec, [place] [id number] [place] [address] Dec, Type 2 diabetes mellitus with diabetic neuropathy, unspecified E11.40 ; Emphysema, unspecified J43.9 ; Gastro-esophageal reflux disease without esophagitis K21.9 ; Hypertension I10 ; Hyperlipemia E78.5 ; Rheumatoid arthritis with rheumatoid factor of right wrist without organ or systems involvement M05.731 ; Elevated white blood cell count, unspecified D72.829 ; Acute non- recurrent frontal sinusitis J01.10 and Chronic pain G89.29 [facility] [id number] [place] [address] Nov, [place] [id number] [place] [address] Nov, Elevated white blood cell count, unspecified D72.829 ; Encounter for immunization Z23 ; Rheumatoid arthritis with rheumatoid factor of right wrist without organ or systems involvement M05.731 ; Injury of left hand S69.92XA ; Pain in left knee M25.562 and Other chronic pain G89.29 [facility] [id number] [place] [address] Nov, [place] [id number] [place] [address] Nov, [place] [facility] [id number] [place] [address] Oct, [place] [facility] [id number] [place] [address] Oct, Hyperlipemia E78.5 [facility] [facility] [id number] [place] [address] Oct, [place] [id number] [place] [address] Oct, Type 2 diabetes mellitus with diabetic neuropathy, unspecified E11.40 ; Neuropathy G62.9 ; Hypertension I10 ; Chronic pain G89.29 and Hyperlipemia E78.5 [place] [address] [place] [address] Oct, Emphysema, unspecified J43.9 and Rheumatoid arthritis of left wrist without organ or system involvement with positive rheumatoid factor M05.732 [place] [id number] [place] [address] Sep, Chronic pain syndrome G89.4 [place] [id number] [place] [address] Sep, [place] [id number] [place] [address] Sep, [place] [facility] [id number] [address] Sep, Closed nondisplaced fracture of scaphoid of left wrist, unspecified portion of scaphoid, initial encounter S62.002A [facility] [id number] [place] [id number] Sep, Type 2 diabetes mellitus with diabetic neuropathy, unspecified E11.40 ; Hypertension I10 ; Hyperlipemia E78.5 and Acute non-recurrent maxillary sinusitis J01.00 [facility] [id number] [place] [id number] Sep, [place] [address] [address] [place] [id number] [place] [address] Sep, [facility] [id number] [place] [address] Sep, [place] [id number] [place] [address] Sep, [facility] [id number] [place] [address] Aug, Epigastric pain R10.13 and Right upper quadrant pain R10.11 [place] [address] [id number] [place] [address] Aug, Closed nondisplaced fracture of scaphoid of left wrist, unspecified portion of scaphoid, initial encounter S62.002A [place] [id number] [place] [address] Aug, [facility] [id number] [place] [address] Aug, [facility] [id number] [place] [address] Aug, Shortness of breath R06.02 ; Epigastric pain R10.13 and Injury of left lower arm, initial encounter S59.912A [place] [address] [id number] [place] [address] Aug, Coronary artery disease involving [place] heart with angina pectoris, unspecified vessel or lesion type I25.119 ; Pulmonary emphysema, unspecified emphysema type J43.9 and Snoring R06.83 [place] [address] [id number] [place] [address] Aug, [place] [id number] [place] [address] Aug, Emphysema, unspecified J43.9 ; Atherosclerotic heart disease of [place] coronary artery 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.10 and Hypertension I10 [place] [id number] [place] [address] July, [place] [id number] [place] [address] July, Closed nondisplaced fracture of scaphoid of left wrist, unspecified portion of scaphoid, initial encounter S62.002A [place] [address] [id number] [place] [address] July, [place] [id number] [place] [address] July, Type 2 diabetes mellitus with diabetic neuropathy, unspecified E11.40 ; Emphysema, unspecified J43.9 ; Atherosclerotic heart disease of [place] coronary artery without angina pectoris [...] agents L24.89 and Hospital discharge follow-up Z09 [place] [id number] [place] [address] July, [place] [id number] [place] [address] July, Type 2 diabetes mellitus with diabetic neuropathy, unspecified E11.40 [facility] [address] [address] July, Type 2 diabetes mellitus with diabetic neuropathy, unspecified E11.40 and Rheumatoid arthritis of left wrist without organ or system involvement with positive rheumatoid factor M05.732 [facility] [address] [address] July, [facility] [id number] [place] [address] July, [facility] [id number] [place] [address] Jun, [facility] [id number] [place] [address] Jun, [facility] [id number] [place] [address] Jun, 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 [facility] [id number] [place] [address] Jun, [facility] [id number] [place] [address] Jun, 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 [facility] [address] [address] Jun, [facility] [address] [address] Jun, [facility] [address] [address] Jun, Encounter for PPD test Z11.1 ; Rheumatoid arthritis with rheumatoid factor of right wrist without organ or systems involvement M05.731 and Rheumatoid arthritis of left wrist without organ or system involvement with positive rheumatoid factor M05.732 [facility] [address] [address] Jun, Type 2 diabetes mellitus with diabetic neuropathy, unspecified E11.40 [place] [address] [id number] [place] [address] May, Type 2 diabetes mellitus with diabetic neuropathy, unspecified E11.40 ; Emphysema, unspecified J43.9 ; Rheumatoid arthritis with rheumatoid factor of right wrist without organ or systems involvement M05.731 ; Rheumatoid arthritis of left wrist without organ or system involvement with positive rheumatoid factor M05.732 and Chronic pain G89.29 [place] [address] [address] May, [place] [address] [address] May, Swelling of hand joint M25.449 ; Ankle swelling M25.473 and Joint pain M25.50 [place] [address] [address] May, Emphysema, unspecified J43.9 [place] [address] [address] May, Gastroenteritis K52.9 and Hypertension I10 [place] [address] [address] Apr, [place] [address] [address] Apr, [place] [address] [place] [id number] [place] [address] Apr, [place] [address] [address] Apr, Type 2 diabetes mellitus with diabetic neuropathy, unspecified E11.40 ; Emphysema, unspecified J43.9 ; Atherosclerotic heart disease of [place] coronary artery 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.10 ; Migraine without aura, not intractable, with status migrainosus G43.001 ; Gastro-esophageal reflux disease without esophagitis K21.9 ; CAD (coronary artery disease) I25.10 ; Hypertension I10 ; Hyperlipemia E78.5 ; Allergic rhinitis J30.9 ; Neuropathy G62.9 ; Anxiety associated with depression F41.8 and Injury of left hand S69.92XA [place] [address] [address] Apr, [place] [address] [address] Apr, [place] [address] [address] Apr, Type 2 diabetes mellitus with diabetic neuropathy, unspecified E11.40 ; Emphysema, unspecified J43.9 ; Essential (primary) hypertension I10 ; Atherosclerotic heart disease of [place] coronary artery 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.10 ; Gastro-esophageal reflux disease without esophagitis K21.9 ; CAD (coronary artery disease) I25.10 ; Hyperlipemia E78.5 ; Hypertension I10 ; History of solitary pulmonary nodule Z87.898 ; Allergic rhinitis J30.9 ; Chronic pain G89.29 and Depression with anxiety F41.[address] [address] Mar, [address] [address] Mar, Allergic rhinitis J30.9 ; URI (upper respiratory infection) J06.9 and Other viral agents as the cause of diseases classified elsewhere B97.89 [facility] [id number] [place] [address] Feb, Acute nasopharyngitis [common cold] J00 and Acute diarrhea R19.[address] [address] Feb, Depression F32.[address] [address] Jan, Otitis media, right H66.[address] [address] Jan, [address] [place] [id number] [place] [address] Jan, Type 2 diabetes mellitus with diabetic neuropathy, unspecified E11.40 [place] [address] [address] Jan, [place] [address] [address] Jan, Hyperlipemia E78.5 [place] [address] [address] Jan, Type 2 diabetes mellitus with diabetic neuropathy, unspecified E11.40 ; Emphysema, unspecified J43.9 ; CAD (coronary artery disease) I25.10 and Hyperlipemia E78.5 [place] [address] [address] Dec, Allergic rhinitis J30.9 and Fungal infection B49 [place] [address] [address] Dec, [place] [address] [address] Dec, [place] [address] [address] Dec, Chest pain R07.9 ; CAD (coronary artery disease) I25.10 ; Hypertension I10 and Hyperlipemia E78.5 [place] [address] [address] Dec, Pain in thoracic spine M54.6 ; Gastro-esophageal reflux disease without esophagitis K21.9 ; Emphysema, unspecified J43.9 and Migraine without aura, not intractable, with status migrainosus G43.001 [place] [address] [address] Dec, [place] [address] [address] Nov, Influenza vaccine administered V04.81 [facility] [address] [facility] [id number] [address] Nov, [facility] [address] [place] [id number] [address] Sep, [facility] [id number] [address] Sep, [facility] [id number] [place] [address] Sep, CAD (coronary artery disease) 414.00 and Diabetes type 2, uncontrolled 250.02 [place] [id number] [place] [address] Sep, CAD (coronary artery disease) 414.00 ; Diabetes type 2, uncontrolled 250.02 and Migraine 346.90 IMMUNIZATIONS No Known Immunizations SOCIAL HISTORY Never Assessed REASON FOR VISIT Medication question PLAN OF CARE VITAL SIGNS MEDICATIONS Unknown Medications RESULTS No Results PROCEDURES No Known procedures INSTRUCTIONS MEDICATIONS ADMINISTERED No Known Medications MEDICAL (GENERAL) HISTORY Type Description Date Medical History COPD Medical History Type 2 Diabetes Medical History HTN Medical History Cardiac stents July 2010 post GA-stent to LAD Medical History Rheumatoid Arthritis Medical History 04/2016---Echo- 60%//mild hypertrophy at the base of the septum, mild mitral regurg/ mild tricuspid regurg. PAP about 10-15 mmHg Medical History 04/2016------Normal Lexiscan Medical History Elevated white blood cell count, unspecified Medical History Atherosclerotic heart disease of [place] coronary artery without angina pectoris [...]
--- OUTSIDE RECORDS SUMMARY | 2018-08-23 16:53 | XMS REPORT ---
Author Author BRANDIN REYES [facility] Address [address] [place] [address] Care Team Providers Care Cemetery Warden Name Role Phone BRANDIN REYES Unavailable PROBLEMS Type Condition ICD9-CM Code WGC72-SO Code Onset Dates Condition Status SNOMED Code Problem Neuropathy G62.9 Active 234969877 Problem Other hammer toe(s) (acquired), right foot M20.41 Active 782707461 Problem Other hammer toe(s) (acquired), left foot M20.42 Active 06135317 Problem Intractable migraine without status migrainosus, unspecified migraine type G43.919 Active 962047783 Problem Gastro-esophageal reflux disease without esophagitis K21.9 Active 711561535 Problem Elevated white blood cell count, unspecified D72.829 Active 479536287 Problem Hypertension I10 Active 80343258 Problem Hyperlipemia E78.5 Active 38891489 Problem Hammer toe of left foot M20.42 Active 345885321 Problem Tobacco abuse Z72.0 Active 595319855 Problem Other chronic pain G89.29 Active 64289067 Problem Atherosclerotic heart disease of [place] coronary artery 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.10 Active 373265365997479 Problem Allergic rhinitis J30.9 Active 48341220 Problem Anxiety associated with depression F41.8 Active 754667388 Problem Emphysema, unspecified J43.9 Active 17587390 Problem Type 2 diabetes mellitus with diabetic neuropathy, unspecified E11.40 Active 09010558 Problem Rheumatoid arthritis involving multiple sites with positive rheumatoid factor M05.79 Active 431942104 Problem Primary insomnia F51.01 Active 5548726 Problem Chronic pain G89.29 Active 61402026 Problem Periodontitis K05.30 Active 07912656 Problem Vitamin D deficiency E55.9 Active 66783131 Problem OAB (overactive bladder) N32.81 Active 129324641 Problem Dependence on nocturnal oxygen therapy Z99.81 Active 66028068833625 ALLERGIES Substance Reaction Event Type Date Status Sulfamethoxazole-Trimethoprim itching Drug Allergy Sep, Active Singulair dizziness Drug Allergy Sep, Active ENCOUNTERS Encounter Location Date Diagnosis [facility] [id number] [place] [address] Jan, [facility] [id number] [place] [address] Dec, [facility] [address] [address] Nov, [facility] [id number] [place] [address] Nov, Chronic pain G89.29 [facility] [id number] [place] [address] Nov, Chronic pain G89.29 [facility] [id number] [place] [address] Oct, Dysuria R30.0 ; Intractable migraine without status migrainosus, unspecified migraine type G43.919 and Back pain at L4-L5 level M54.5 [facility] [id number] [place] [address] Oct, Orthostatic hypotension I95.1 [facility] [id number] [place] [address] Oct, Localized swelling of both lower legs R22.43 ; Onychomycosis B35.1 and Type 2 diabetes mellitus with diabetic neuropathy, unspecified E11.40 [facility] [id number] [place] [address] Oct, [facility] [id number] [place] [address] Oct, Elevated white blood cell count, unspecified D72.829 [facility] [id number] [place] [address] Oct, Elevated white blood cell count, unspecified D72.829 [facility] [id number] [place] [address] Oct, Chronic pain G89.29 [facility] [id number] [place] [address] Oct, [facility] [id number] [place] [address] Oct, [facility] [id number] [place] [address] Oct, Orthostatic hypotension I95.1 ; Dizziness R42 and Neuropathy G62.9 [facility] [id number] [place] [address] Oct, Dizziness R42 ; Low back pain M54.5 ; Other chronic pain G89.29 ; Nausea R11.0 and Orthostatic hypotension I95.1 [facility] [id number] [place] [address] Sep, Rheumatoid arthritis involving multiple sites with positive rheumatoid factor M05.79 and Tobacco abuse Z72.0 [facility] [id number] [place] [address] Sep, Chronic pain G89.29 [facility] [id number] [place] [address] Aug, Type 2 diabetes mellitus with diabetic neuropathy, unspecified E11.40 ; Hypertension I10 ; Hyperlipemia E78.5 ; Gastro-esophageal reflux disease without esophagitis K21.9 ; Emphysema, unspecified J43.9 ; Anxiety associated with depression F41.8 ; Vitamin D deficiency E55.9 ; Chronic pain G89.29 ; Tobacco abuse Z72.0 ; Overweight (BMI 25.0-29.9) E66.3 ; Atherosclerotic heart disease of [place] coronary artery 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.10 ; OAB (overactive bladder) N32.81 and Primary insomnia F51.01 [facility] [id number] [place] [address] July, [facility] [address] [address] July, [facility] [id number] [place] [address] July, Chronic pain G89.29 [facility] [id number] [place] [address] July, [facility] [id number] [place] [address] July, Onychomycosis B35.1 ; Hammer toe of left foot M20.42 and Type 2 diabetes mellitus with diabetic neuropathy, unspecified E11.40 [facility] [id number] [place] [address] July, [facility] [id number] [place] [address] July, Chronic pain G89.29 and Neuropathy G62.9 [facility] [id number] [place] [address] July, [facility] [id number] [place] [address] July, [facility] [address] [address] Jun, [facility] [address] [place] [address] Jun, Chronic pain G89.29 [facility] [address] [address] Jun, [facility] [id number] [place] [address] Jun, [facility] [address], [place] [address] Jun, Visit for TB skin test Z11.1 [facility] [id number] [place] [address] Jun, [facility] [address] [address] Jun, [facility] [id number] [place] [address] Jun, Tobacco abuse Z72.0 and Rheumatoid arthritis involving multiple sites with positive rheumatoid factor M05.79 [facility] [id number] [place] [address] Jun, Anxiety F41.9 ; Acute non-recurrent maxillary sinusitis J01.00 and Chronic pain G89.29 [facility] [id number] [place] [address] Jun, [facility] [id number] [place] [address] May, Rheumatoid arthritis involving multiple sites with positive rheumatoid factor M05.79 [facility] [id number] [place] [address] May, Chronic pain G89.29 [facility] [id number] [place] [address] May, [facility] [id number] [place] [address] May, [facility] [id number] [place] [address] May, [facility] [id number] [place] [address] May, Type 2 diabetes mellitus with diabetic neuropathy, unspecified E11.40 [facility] [id number] [place] [address] May, Type 2 diabetes mellitus with diabetic neuropathy, unspecified E11.40 ; Emphysema, unspecified J43.9 ; Hypertension I10 ; Hyperlipemia E78.5 ; Vitamin D deficiency E55.9 ; Right medial knee pain M25.561 ; Controlled substance agreement signed Z79.899 ; Chronic pain G89.29 ; Allergic rhinitis J30.9 ; Anxiety associated with depression F41.8 ; Neuropathy G62.9 and Gastro- esophageal reflux disease without esophagitis K21.9 [facility] [id number] [place] [address] Apr, Chronic pain G89.29 [facility] [address] [address] Apr, Other hammer toe(s) (acquired), left foot M20.42 ; Other hammer toe(s) (acquired), right foot M20.41 ; Type 2 diabetes mellitus with diabetic neuropathy, unspecified E11.40 and Onychomycosis B35.1 [facility] [address] [address] Apr, Gastro-esophageal reflux disease without esophagitis K21.9 [facility] [address] [address] Apr, Controlled substance agreement signed Z79.899 [facility] [address] [address] Mar, Chronic pain G89.29 [facility] [address] [address] Mar, Emphysema, unspecified J43.9 and Type 2 diabetes mellitus with diabetic neuropathy, unspecified E11.40 [facility] [id number] [place] [address] Mar, Dysuria R30.0 ; Vaginal candidiasis B37.3 and Acute nonintractable headache, unspecified headache type R51 [facility] [address] [address] Feb, Neuropathy G62.9 and Chronic pain G89.29 [facility] [address] [address] Feb, Gastro-esophageal reflux disease without esophagitis K21.9 [facility] [id number] [place] [address] Feb, [facility] [id number] [place] [address] Feb, Rheumatoid arthritis involving multiple sites with positive rheumatoid factor M05.79 and COPD with acute exacerbation J44.1 [facility] [id number] [place] [address] Feb, Vaginal odor N89.8 ; Vaginal irritation N89.8 ; Candidal dermatitis B37.2 and Screening breast examination Z12.31 [facility] [address] [address] Feb, [facility] [id number] [place] [address] Feb, [facility] [id number] [place] [address] Feb, [facility] [id number] [place] [address] Feb, COPD with exacerbation J44.1 ; Tobacco abuse counseling Z71.6 ; Tobacco abuse Z72.0 ; Rheumatoid arthritis involving multiple sites with positive rheumatoid factor M05.79 and Hyperlipemia E78.5 [facility] [id number] [place] [address] Feb, [facility] [id number] [place] [id number] Jan, [facility] [id number] [place] [address] Jan, Chronic pain G89.29 [facility] [id number] [place] [id number] Jan, Dental examination Z01.20 [facility] [id number] [place] [address] Jan, Back pain of lumbar region with sciatica M54.40 [facility] [id number] [place] [address] 15 Jan, 2017 Acute bacterial conjunctivitis of both eyes H10.33 [facility] [id number] [place] [address] 02 Jan, 2017 Chronic pain G89.29 [facility] [address] [address] Dec, Type 2 diabetes mellitus with diabetic neuropathy, unspecified E11.40 ; Hypertension I10 ; Hyperlipemia E78.5 ; Gastro-esophageal reflux disease without esophagitis K21.9 ; Anxiety associated with depression F41.8 ; Allergic rhinitis J30.9 ; Neuropathy G62.9 and Dependence on nocturnal oxygen therapy Z99.81 [facility] [address] [address] Dec, [facility] [address] [address] Dec, [facility] [address] [address] Dec, Encounter for immunization Z23 [facility] [address] [address] 05 Dec, 2016 Type 2 diabetes mellitus with diabetic neuropathy, unspecified E11.40 and Chronic pain G89.29 [facility] [address] [address] Nov, Gastro-esophageal reflux disease without esophagitis K21.9 [facility] [address] [address] 11 Nov, 2016 Peripheral edema R60.9 and Chest pain in adult R07.9 [facility] [address] [address] 07 Nov, 2016 Chronic pain G89.29 [facility] [address] [address] Oct, [facility] [id number] [place] [address] Oct, [facility] [id number] [place] [address] Oct, Rheumatoid arthritis with rheumatoid factor of right wrist without organ or systems involvement M05.731 [facility] [id number] [place] [address] Oct, [facility] [id number] [place] [address] Oct, Acute exacerbation of chronic obstructive pulmonary disease (COPD) J44.1 and Canker sore K12.0 [facility] [id number] [place] [address] Oct, [facility] [id number] [place] [address] Oct, [facility] [id number] [place] [address] Oct, Chronic pain G89.29 [facility] [address] [id number] Oct, Dental examination Z01.20 [facility] [id number] [place] [address] Oct, Dental examination Z01.20 and Periodontitis K05.30 [facility] [id number] [place] [id number] Oct, Dental examination Z01.20 [facility] [id number] [place] [address] Sep, Abscess L02.91 [facility] [id number] [place] [address] Sep, Dental examination Z01.20 [facility] [id number] [place] [address] Sep, [facility] [id number] [id number] 18 Sep, 2016 Dental examination Z01.20 and Dental caries K02.9 [facility] [id number] [place] [address] Sep, Primary insomnia F51.01 and Anxiety associated with depression F41.8 [facility] [id number] [place] [address] Sep, Rheumatoid arthritis with rheumatoid factor of right wrist without organ or systems involvement M05.731 [facility] [id number] [place] [address] Sep, Chronic pain G89.29 [facility] [id number] [place] [address] Sep, Type 2 diabetes mellitus with diabetic neuropathy, unspecified E11.40 ; Emphysema, unspecified J43.9 ; Gastro-esophageal reflux disease without esophagitis K21.9 ; Hypertension I10 ; Hyperlipemia E78.5 ; Anxiety associated with depression F41.8 ; Chronic pain G89.29 ; Vitamin D deficiency E55.9 and Primary insomnia F51.01 [facility] [id number] [place] [address] 16 Aug, 2016 Anxiety associated with depression F41.8 [facility] [id number] [place] [address] Aug, Chronic pain G89.29 and Neuropathy G62.9 [facility] [address] [place] [address] Aug, Type 2 diabetes mellitus with diabetic neuropathy, unspecified E11.40 ; Rheumatoid arthritis involving multiple sites with positive rheumatoid factor M05.79 ; Vitamin D deficiency E55.9 ; Anxiety associated with depression F41.8 and Primary insomnia F51.01 [facility] [address] [place] [address] July, Emphysema, unspecified J43.9 [facility] [id number] [address] July, Allergic rhinitis J30.9 [facility] [id number] [place] [address] July, Allergic rhinitis J30.9 ; Emphysema, unspecified J43.9 and Rheumatoid arthritis with rheumatoid factor of right wrist without organ or systems involvement M05.731 [facility] [id number] [place] [address] July, Neuropathy G62.9 and Chronic pain G89.29 [facility] [id number] [place] [address] July, Rheumatoid arthritis involving multiple sites with positive rheumatoid factor M05.79 [facility] [id number] [place] [address] Jun, [facility] [id number] [place] [address] Jun, Neuropathy G62.9 and Chronic pain G89.29 [facility] [id number] [place] [address] May, Neuropathy G62.9 and Chronic pain G89.29 [facility] [id number] [place] [address] May, [facility] [id number] [place] [address] May, [facility] [id number] [place] [address] May, Type 2 diabetes mellitus with diabetic [...] system involvement with positive rheumatoid factor M05.732 [facility] [id number] [place] [address] 14 Apr, 2016 Chronic pain G89.29 [facility] [id number] [place] [address] Mar, Gastro-esophageal reflux disease without esophagitis K21.9 [facility] [id number] [place] [address] Mar, [facility] [address] [address] Mar, Rheumatoid arthritis with rheumatoid factor of right wrist without organ or systems involvement M05.731 [facility] [id number] [place] [address] Mar, Chronic pain G89.29 [facility] [address] [address] Feb, Hyperlipemia E78.5 [facility] [id number] [place] [address] Feb, Abnormal breath sounds R06.89 ; COPD with exacerbation J44.1 and Fatigue, unspecified type R53.83 [facility] [id number] [place] [address] Feb, Neuropathy G62.9 ; Abnormal lung sounds R09.89 and Bronchitis J40 [facility] [id number] [place] [address] Feb, Bronchitis J40 [facility] [id number] [place] [address] Feb, Chronic pain G89.29 [facility] [id number] [place] [address] Jan, Type 2 diabetes mellitus with diabetic neuropathy, unspecified E11.40 ; Rheumatoid arthritis with rheumatoid factor of right wrist without organ or systems involvement M05.731 and Hyperlipemia E78.5 [facility] [id number] [place] [address] Jan, Rheumatoid arthritis with rheumatoid factor of right wrist without organ or systems involvement M05.731 [facility] [id number] [place] [address] Jan, De Quervain's disease (radial styloid tenosynovitis) M65.4 ; Closed nondisplaced fracture of scaphoid of left wrist, unspecified portion of scaphoid, initial encounter S62.002A and Peripheral tear of medial meniscus of left knee, unspecified whether old or current tear, initial encounter S83.222A [facility] [id number] [place] [address] Jan, Hypertension I10 ; Type 2 diabetes mellitus with diabetic neuropathy, unspecified E11.40 ; Hyperlipemia E78.5 ; Allergic rhinitis J30.9 ; Neuropathy G62.9 ; Rheumatoid arthritis with rheumatoid factor of right wrist without organ or systems involvement M05.731 ; Acute non-recurrent maxillary sinusitis J01.00 and Chronic pain G89.29 [facility] [id number] [place] [address] Dec, [facility] [id number] [place] [address] Dec, [facility] [id number] [place] [address] Dec, Type 2 diabetes mellitus with diabetic neuropathy, unspecified E11.40 ; Emphysema, unspecified J43.9 ; Gastro-esophageal reflux disease without esophagitis K21.9 ; Hypertension I10 ; Hyperlipemia E78.5 ; Rheumatoid arthritis with rheumatoid factor of right wrist without organ or systems involvement M05.731 ; Elevated white blood cell count, unspecified D72.829 ; Acute non- recurrent frontal sinusitis J01.10 and Chronic pain G89.29 [facility] [address] [place] [address] Nov, [facility] [id number] [place] [address] Nov, Elevated white blood cell count, unspecified D72.829 ; Encounter for immunization Z23 ; Rheumatoid arthritis with rheumatoid factor of right wrist without organ or systems involvement M05.731 ; Injury of left hand S69.92XA ; Pain in left knee M25.562 and Other chronic pain G89.29 [facility] [id number] [place] [address] Nov, [facility] [address] [address] Nov, [facility] [address] [address] Oct, [facility] [address] [address] Oct, Hyperlipemia E78.5 [facility] [id number] [place] [address] Oct, [facility] [id number] [place] [address] Oct, Type 2 diabetes mellitus with diabetic neuropathy, unspecified E11.40 ; Neuropathy G62.9 ; Hypertension I10 ; Chronic pain G89.29 and Hyperlipemia E78.5 [facility] [id number] [place] [id number] Oct, Emphysema, unspecified J43.9 and Rheumatoid arthritis of left wrist without organ or system involvement with positive rheumatoid factor M05.732 [facility] [address] [id number] Sep, Chronic pain syndrome G89.4 [place] [address] [place] [id number] [place] [id number] Sep, [facility] [address] [place] [address] Sep, [facility] [id number] [place] [address] [id number] Sep, Closed nondisplaced fracture of scaphoid of left wrist, unspecified portion of scaphoid, initial encounter S62.002A [facility] [id number] [place] [address] Sep, Type 2 diabetes mellitus with diabetic neuropathy, unspecified E11.40 ; Hypertension I10 ; Hyperlipemia E78.5 and Acute non-recurrent maxillary sinusitis J01.00 [facility] [id number] [place] [address] Sep, [facility] [id number] [place] [address] Sep, [facility] [id number] [place] [address] Sep, [facility] [id number] [place] [address] Sep, [facility] [id number] [place] [address] Aug, Epigastric pain R10.13 and Right upper quadrant pain R10.11 [facility] [id number] [place] [address] Aug, Closed nondisplaced fracture of scaphoid of left wrist, unspecified portion of scaphoid, initial encounter S62.002A [facility] [id number] [place] [address] Aug, [facility] [id number] [place] [address] Aug, [facility] [id number] [place] [address] Aug, Shortness of breath R06.02 ; Epigastric pain R10.13 and Injury of left lower arm, initial encounter S59.912A [place] [id number] [place] [address] Aug, Coronary artery disease involving [place] heart with angina pectoris, unspecified vessel or lesion type I25.119 ; Pulmonary emphysema, unspecified emphysema type J43.9 and Snoring R06.83 [facility] [id number] [place] [address] Aug, [facility] [id number] [place] [address] Aug, Emphysema, unspecified J43.9 ; Atherosclerotic heart disease of [place] coronary artery 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.10 and Hypertension I10 [facility] [id number] [place] [address] July, [id number] [place] [address] July, Closed nondisplaced fracture of scaphoid of left wrist, unspecified portion of scaphoid, initial encounter S62.002A [facility] [facility] [id number] [place] [address] July, [facility] [id number] [place] [address] July, Type 2 diabetes mellitus with diabetic neuropathy, unspecified E11.40 ; Emphysema, unspecified J43.9 ; Atherosclerotic heart disease of [place] coronary artery 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.10 ; [...] agents L24.89 and Hospital discharge follow-up Z09 [id number] [place] [address] July, [place] [address] [address] July, Type 2 diabetes mellitus with diabetic neuropathy, unspecified E11.40 [facility] [id number] [place] [address] July, Type 2 diabetes mellitus with diabetic neuropathy, unspecified E11.40 and Rheumatoid arthritis of left wrist without organ or system involvement with positive rheumatoid factor M05.732 [facility] [id number] [place] [address] July, [facility] [id number] [place] [address] July, [facility] [id number] [place] [address] Jun, [facility] [id number] [place] [address] Jun, [facility] [id number] [place] [address] Jun, 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 [facility] [id number] [place] [address] Jun, [facility] [id number] [place] [address] Jun, 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 [facility] [id number] [place] [address] Jun, [facility] [address] [address] Jun, [facility] [id number] [place] [address] Jun, Encounter for PPD test Z11.1 ; Rheumatoid arthritis with rheumatoid factor of right wrist without organ or systems involvement M05.731 and Rheumatoid arthritis of left wrist without organ or system involvement with positive rheumatoid factor M05.732 [facility] [id number] [place] [address] Jun, Type 2 diabetes mellitus with diabetic neuropathy, unspecified E11.40 [place] [id number] May, Type 2 diabetes mellitus with diabetic neuropathy, unspecified E11.40 ; Emphysema, unspecified J43.9 ; Rheumatoid arthritis with rheumatoid factor of right wrist without organ or systems involvement M05.731 ; Rheumatoid arthritis of left wrist without organ or system involvement with positive rheumatoid factor M05.732 and Chronic pain G89.29 [place] [address] [address] May, [place] [address] [address] May, Swelling of hand joint M25.449 ; Ankle swelling M25.473 and Joint pain M25.50 [place] [address] [address] May, Emphysema, unspecified J43.9 [facility] [id number] [place] [address] May, Gastroenteritis K52.9 and Hypertension I10 [facility] [id number] [place] [address] Apr, [facility] [id number] [place] [address] Apr, [facility] [id number] [place] [address] Apr, [facility] [id number] [place] [address] Apr, Type 2 diabetes mellitus with diabetic neuropathy, unspecified E11.40 ; Emphysema, unspecified J43.9 ; Atherosclerotic heart disease of [place] coronary artery 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.10 ; Migraine without aura, not intractable, with status migrainosus G43.001 ; Gastro-esophageal reflux disease without esophagitis K21.9 ; CAD (coronary artery disease) I25.10 ; Hypertension I10 ; Hyperlipemia E78.5 ; Allergic rhinitis J30.9 ; Neuropathy G62.9 ; Anxiety associated with depression F41.8 and Injury of left hand S69.92XA [place] [id number] [place] [address] Apr, [address] [address] Apr, [place] [address] [address] Apr, Type 2 diabetes mellitus with diabetic neuropathy, unspecified E11.40 ; Emphysema, unspecified J43.9 ; Essential (primary) hypertension I10 ; Atherosclerotic heart disease of [place] coronary artery 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.10 ; Gastro-esophageal reflux disease without esophagitis K21.9 ; CAD (coronary artery disease) I25.10 ; Hyperlipemia E78.5 ; Hypertension I10 ; History of solitary pulmonary nodule Z87.898 ; Allergic rhinitis J30.9 ; Chronic pain G89.29 and Depression with anxiety F41.8 [address] [id number] [place] [address] Mar, [id number] [place] [address] Mar, Allergic rhinitis J30.9 ; URI (upper respiratory infection) J06.9 and Other viral agents as the cause of diseases classified elsewhere B97.89 [facility] [id number] [place] [address] Feb, Acute nasopharyngitis [common cold] J00 and Acute diarrhea R19.[address] [address] Feb, Depression F32.9 [id number] [place] [address] Jan, Otitis media, right H66.91 [id number] [place] [address] Jan, [address] [address] Jan, Type 2 diabetes mellitus with diabetic neuropathy, unspecified E11.40 [place] [address] [address] Jan, [place] [address] [address] Jan, Hyperlipemia E78.5 [place] [address] [address] Jan, Type 2 diabetes mellitus with diabetic neuropathy, unspecified E11.40 ; Emphysema, unspecified J43.9 ; CAD (coronary artery disease) I25.10 and Hyperlipemia E78.5 [place] [address] [address] Dec, Allergic rhinitis J30.9 and Fungal infection B49 [place] [address] [address] Dec, [place] [address] [address] Dec, [place] [id number] [place] [address] Dec, Chest pain R07.9 ; CAD (coronary artery disease) I25.10 ; Hypertension I10 and Hyperlipemia E78.5 [place] [id number] [place] [address] 08 Dec, 2014 Pain in thoracic spine M54.6 ; Gastro-esophageal reflux disease without esophagitis K21.9 ; Emphysema, unspecified J43.9 and Migraine without aura, not intractable, with status migrainosus G43.001 [place] [id number] [place] [address] Dec, [id number] [address] Nov, Influenza vaccine administered V04.81 [place] [address] [place] [address] Nov, [place] [address] [place] [address] Sep, [place] [id number] [place] [address] Sep, [place] [id number] [place] [address] Sep, CAD (coronary artery disease) 414.00 and Diabetes type 2, uncontrolled 250.02 [place] [address] [address] Sep, CAD (coronary artery disease) 414.00 ; Diabetes type 2, uncontrolled 250.02 and Migraine 346.90 IMMUNIZATIONS No Known Immunizations SOCIAL HISTORY Never Assessed REASON FOR VISIT Arthritis-ARBEN roa PLAN OF CARE Activity Details Follow Up after telerhm visit Reason: VITAL SIGNS Height 66 in 2017-10-16 Weight 181.2 lbs 2017-10-16 Temperature 98.0 degrees Fahrenheit 2017-10-16 Heart Rate 77 bpm 2017-10-16 Respiratory Rate 20 2017-10-16 Oximetry on room air:98 % 2017-10-16 BMI 29.24 kg/m2 2017-10-16 Blood pressure systolic 100 mmHg 2017-10-16 Blood pressure diastolic 64 mmHg 2017-10-16 MEDICATIONS Medication Instructions Dosage Frequency Start Date End Date Duration Status Qnasl 80 MCG/ACT USE TWO SPRAYS IN EACH NOSTRIL ONCE DAILY 30 Active Protonix 40 mg Orally Once a day 1 tablet 24h Dec, Active Metformin HCl 1000 MG TAKE ONE TABLET BY MOUTH TWICE DAILY WITH MEALS 30 Active Easy Touch Pen Olmito 32G X 4 MM sq 4 times a day as directed 6h Sep, Active Depend Adjustable Underwear Lg 1 as directed 3 times a day use one depends three times per day as needed 8h May, Active Baclofen 10 MG TAKE ONE TABLET BY MOUTH THREE TIMES DAILY WITH FOOD OR MILK Active Fish Oil 1200 MG Orally Once a day 1 capsule 24h Active Hydrocodone-Acetaminophen 7.5-325 MG Orally every 6 hours as needed 1 tablet as needed Sep, 28 days Active HydrOXYzine HCl 25 MG Orally every 8 hrs 1 tablet as needed 8h 30 Active Nicotine 21 MG/24HR Transdermal Once a day 1 patch to skin 24h Feb, Active Blood Glucose Monitor System w/Device as directed July, Active Methotrexate 2.5 MG TAKE 10 TABLETS BY MOUTH ONCE WEEKLY 84 Active Oxygen Active Lyrica 100 mg Orally Three times a day 1 capsule 8h Dec, Active Sucralfate 1 GM TAKE ONE TABLET BY MOUTH EVERY 6 HOURS Active Symbicort 160-4.5 MCG/ACT INHALE 2 PUFFS BY MOUTH TWICE DAILY. (NEED TO MAKE AN APPOINTMENT FOR REFILLS) Active Ventolin HFA 108 (90 Base) MCG/ACT INHALE TWO PUFFS BY MOUTH EVERY 4 HOURS NEEDED (MUST HAVE APPOINTMENT FOR REFILL) Active Aspirin Adult Low Strength 81 MG Orally Once a day 1 tablet 24h Active Citalopram Hydrobromide 20 MG TAKE ONE TABLET BY MOUTH ONCE DAILY 30 Active Lisinopril 20 MG TAKE ONE TABLET BY MOUTH ONCE DAILY Active Cetirizine HCl 10 Orally Once a day TAKE 1 TABLET BY MOUTH DAILY 24h Active PredniSONE 20 mg Orally Once a day x 5 days, then 1 tablet x 5 days 2 tablets Sep, Oct, 10 days Active Glucocard Expression Test - In Vitro 4 times a 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 test blood sugar May, Active Hydroxychloroquine Sulfate 200 MG TAKE ONE TABLET BY MOUTH ONCE DAILY WITH FOOD OR MILK 90 Active Atorvastatin Calcium 10 MG TAKE ONE TABLET BY MOUTH ONCE DAILY 30 Active Trazodone HCl 50 MG TAKE ONE TABLET BY MOUTH ONCE DAILY AT BEDTIME NEEDED Active Albuterol Sulfate (2.5 MG/3ML) 0.083% Inhalation Three times a day 3 ml 8h Active Metoprolol Tartrate 25 MG TAKE ONE TABLET BY MOUTH TWICE DAILY 30 Active Aleve 220 MG Orally every 12 hrs 1 tablet 12h Active Folic Acid 1 MG TAKE ONE TABLET BY MOUTH ONCE DAILY 90 Active Victoza 18 MG/3ML INJECT 1.8 MG SUBCUTANEOUSLY ONCE DAILY 30 Active Quad Cane as directed May, Active RESULTS No Results PROCEDURES No Known procedures INSTRUCTIONS MEDICATIONS ADMINISTERED No Known Medications MEDICAL (GENERAL) HISTORY Type Description Date Medical History COPD Medical History Type 2 Diabetes Medical History HTN Medical History Cardiac stents July 2010 post NV-stent to LAD Medical History Rheumatoid Arthritis Medical History 04/2016---Echo- 60%//mild hypertrophy at the base of the septum, mild mitral regurg/ mild tricuspid regurg. PAP about 10-15 mmHg Medical History 04/2016------Normal Lexiscan Medical History Elevated white blood cell count, unspecified Medical History Atherosclerotic heart disease of [place] coronary artery without angina pectoris Medical History [...]
--- OUTSIDE RECORDS SUMMARY | 2018-08-23 16:53 | XMS REPORT ---
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 Name Role Phone BRANDIN REYES Unavailable PROBLEMS Type Condition ICD9-CM Code NGB50-PT Code Onset Dates Condition Status SNOMED Code Problem Neuropathy G62.9 Active 770564206 Problem Other hammer toe(s) (acquired), right foot M20.41 Active 065702235 Problem Other hammer toe(s) (acquired), left foot M20.42 Active 84077445 Problem Intractable migraine without status migrainosus, unspecified migraine type G43.919 Active 685089310 Problem Gastro-esophageal reflux disease without esophagitis K21.9 Active 001559905 Problem Elevated white blood cell count, unspecified D72.829 Active 061456706 Problem Hypertension I10 Active 08945434 Problem Hyperlipemia E78.5 Active 89458844 Problem Hammer toe of left foot M20.42 Active 813623208 Problem Tobacco abuse Z72.0 Active 524067265 Problem Other chronic pain G89.29 Active 70639287 Problem Atherosclerotic heart disease of [place] coronary artery 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.10 Active 515563933954493 Problem Allergic rhinitis J30.9 Active 82160084 Problem Anxiety associated with depression F41.8 Active 017459937 Problem Emphysema, unspecified J43.9 Active 01046527 Problem Type 2 diabetes mellitus with diabetic neuropathy, unspecified E11.40 Active 82989411 Problem Rheumatoid arthritis involving multiple sites with positive rheumatoid factor M05.79 Active 434349108 Problem Primary insomnia F51.01 Active 2022253 Problem Chronic pain G89.29 Active 76490131 Problem Periodontitis K05.30 Active 60065823 Problem Vitamin D deficiency E55.9 Active 80006272 Problem OAB (overactive bladder) N32.81 Active 830502296 Problem Dependence on nocturnal oxygen therapy Z99.81 Active [id number] ALLERGIES No Information ENCOUNTERS Encounter Location Date Diagnosis [facility] [address], [place] [address] 16 Jan, 2018 [facility] [id number] [place] [phone] Dec, [facility] [id number] [place] [phone] 24 Nov, 2017 [facility] [id number] [place] [id number] 07 Nov, 2017 Chronic pain G89.29 [facility] [id number] [place] [phone] 06 Nov, 2017 Chronic pain G89.29 [facility] [id number] [place] [phone] Oct, Dysuria R30.0 ; Intractable migraine without status migrainosus, unspecified migraine type G43.919 and Back pain at L4-L5 level M54.5 [facility] [id number] [place] [phone] Oct, Orthostatic hypotension I95.1 [facility] [id number] [place] [phone] Oct, Localized swelling of both lower legs R22.43 ; Onychomycosis B35.1 and Type 2 diabetes mellitus with diabetic neuropathy, unspecified E11.40 [facility] [id number] [place] [phone] Oct, [facility] [id number] [place] [phone] Oct, Elevated white blood cell count, unspecified D72.829 [facility] [id number] [place] [address] Oct, Elevated white blood cell count, unspecified D72.829 [facility] [id number] [place] [phone] Oct, Chronic pain G89.29 [facility] [id number] [place] [phone] Oct, [facility] [id number] [place] [phone] Oct, [facility] [id number] [place] [phone] Oct, Orthostatic hypotension I95.1 ; Dizziness R42 and Neuropathy G62.9 [facility] [id number] [place] [phone] Oct, Dizziness R42 ; Low back pain M54.5 ; Other chronic pain G89.29 ; Nausea R11.0 and Orthostatic hypotension I95.1 [facility] [address] [address] Sep, Rheumatoid arthritis involving multiple sites with positive rheumatoid factor M05.79 and Tobacco abuse Z72.0 [facility] [id number] [place] [phone] Sep, Chronic pain G89.29 [facility] [address] [address] Aug, Type 2 diabetes mellitus with diabetic neuropathy, unspecified E11.40 ; Hypertension I10 ; Hyperlipemia E78.5 ; Gastro-esophageal reflux disease without esophagitis K21.9 ; Emphysema, unspecified J43.9 ; Anxiety associated with depression F41.8 ; Vitamin D deficiency E55.9 ; Chronic pain G89.29 ; Tobacco abuse Z72.0 ; Overweight (BMI 25.0-29.9) E66.3 ; Atherosclerotic heart disease of [place] coronary artery 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.10 ; OAB (overactive bladder) N32.81 and Primary insomnia F51.01 [facility] [id number] [place] [phone] July, [place] [facility] [address] [address] July, [facility] [address], [place] [address] July, Chronic pain G89.29 [facility] [id number] [place] [phone] July, [facility] [id number] [place] [phone] July, Onychomycosis B35.1 ; Hammer toe of left foot M20.42 and Type 2 diabetes mellitus with diabetic neuropathy, unspecified E11.40 [facility] [id number] [place] [id number] July, [facility] [id number] [place] [address] July, Chronic pain G89.29 and Neuropathy G62.9 [facility] [id number] [place] [phone] July, [facility] [id number] [place] [phone] July, [facility] [id number] [place] [phone] Jun, [facility] [id number] [place] [address] Jun, Chronic pain G89.29 [facility] [id number] [place] [phone] Jun, [facility] [id number] [place] [phone] Jun, [facility] [id number] [place] [phone] Jun, Visit for TB skin test Z11.1 [facility] [address] [place] [phone] Jun, [facility] [id number] [place] [phone] Jun, [facility] [facility] [id number] [place] [phone] Jun, Tobacco abuse Z72.0 and Rheumatoid arthritis involving multiple sites with positive rheumatoid factor M05.79 [facility] [id number] [place] [address] Jun, Anxiety F41.9 ; Acute non-recurrent maxillary sinusitis J01.00 and Chronic pain G89.29 [facility] [id number] [place] [phone] Jun, [facility] [id number] [place] [address] May, Rheumatoid arthritis involving multiple sites with positive rheumatoid factor M05.79 [facility] [id number] [place] [phone] May, Chronic pain G89.29 [facility] [id number] [place] [phone] May, [facility] [id number] [place] [phone] May, [facility] [id number] [place] [address] May, [facility] [id number] [place] [address] May, Type 2 diabetes mellitus with diabetic neuropathy, unspecified E11.40 [facility] [address] [place] [address] May, Type 2 diabetes mellitus with diabetic neuropathy, unspecified E11.40 ; Emphysema, unspecified J43.9 ; Hypertension I10 ; Hyperlipemia E78.5 ; Vitamin D deficiency E55.9 ; Right medial knee pain M25.561 ; Controlled substance agreement signed Z79.899 ; Chronic pain G89.29 ; Allergic rhinitis J30.9 ; Anxiety associated with depression F41.8 ; Neuropathy G62.9 and Gastro- esophageal reflux disease without esophagitis K21.9 [facility] [id number] [place] [id number] 22 Apr, 2017 Chronic pain G89.29 [facility] [id number] [place] [address] 16 Apr, 2017 Other hammer toe(s) (acquired), left foot M20.42 ; Other hammer toe(s) (acquired), right foot M20.41 ; Type 2 diabetes mellitus with diabetic neuropathy, unspecified E11.40 and Onychomycosis B35.1 [facility] [address] [address] 2017 Gastro-esophageal reflux disease without esophagitis K21.9 [facility] [address] [address] 02 Apr, 2017 Controlled substance agreement signed Z79.899 [facility] [address] [address] Mar, Chronic pain G89.29 [facility] [address] [address] Mar, Emphysema, unspecified J43.9 and Type 2 diabetes mellitus with diabetic neuropathy, unspecified E11.40 [facility] [id number] [place] [phone] Mar, Dysuria R30.0 ; Vaginal candidiasis B37.3 and Acute nonintractable headache, unspecified headache type R51 [facility] [id number] [place] [id number] Feb, Neuropathy G62.9 and Chronic pain G89.29 [facility] [id number] [place] [phone] Feb, Gastro-esophageal reflux disease without esophagitis K21.9 [facility] [facility] [address] [address] Feb, [facility] [id number] [place] [address] Feb, Rheumatoid arthritis involving multiple sites with positive rheumatoid factor M05.79 and COPD with acute exacerbation J44.1 [facility] [id number] [place] [id number] 08 Feb, 2017 Vaginal odor N89.8 ; Vaginal irritation N89.8 ; Candidal dermatitis B37.2 and Screening breast examination Z12.31 [facility] [id number] [place] [phone] Feb, [facility] [facility] [address] [address] Feb, [facility] [id number] [place] [phone] Feb, [facility] [id number] [place] [address] Feb, COPD with exacerbation J44.1 ; Tobacco abuse counseling Z71.6 ; Tobacco abuse Z72.0 ; Rheumatoid arthritis involving multiple sites with positive rheumatoid factor M05.79 and Hyperlipemia E78.5 [facility] [id number] [place] [phone] Feb, [facility] [id number] [place] [phone] Jan, [facility] [id number] [place] [phone] Jan, Chronic pain G89.29 [facility] [id number] [place] [id number] Jan, Dental examination Z01.20 [facility] [id number] [place] [phone] 19 Jan, 2017 Back pain of lumbar region with sciatica M54.40 [facility] [id number] [place] [phone] Jan, Acute bacterial conjunctivitis of both eyes H10.33 [place] [facility] [address] [address] Jan, Chronic pain G89.29 [facility] [facility] [address] [address] Dec, Type 2 diabetes mellitus with diabetic neuropathy, unspecified E11.40 ; Hypertension I10 ; Hyperlipemia E78.5 ; Gastro-esophageal reflux disease without esophagitis K21.9 ; Anxiety associated with depression F41.8 ; Allergic rhinitis J30.9 ; Neuropathy G62.9 and Dependence on nocturnal oxygen therapy Z99.81 [place] [facility] [address] [address] Dec, [place] [facility] [address] [address] Dec, [place] [address] [address] Dec, Encounter for immunization Z23 [facility] [facility] [address] [address] 05 Dec, 2016 Type 2 diabetes mellitus with diabetic neuropathy, unspecified E11.40 and Chronic pain G89.29 [facility] [address] [address] Nov, Gastro-esophageal reflux disease without esophagitis K21.9 [facility] [address] [address] Nov, Peripheral edema R60.9 and Chest pain in adult R07.9 [facility] [address] [address] 07 Nov, 2016 Chronic pain G89.29 [facility] [address] [address] Oct, [place] [facility] [address] [address] Oct, [facility] [address] [place] [address] Oct, Rheumatoid arthritis with rheumatoid factor of right wrist without organ or systems involvement M05.731 [facility] [id number] [place] [phone] Oct, [facility] [id number] [place] [phone] Oct, Acute exacerbation of chronic obstructive pulmonary disease (COPD) J44.1 and Canker sore K12.0 [facility] [id number] [place] [phone] Oct, [facility] [id number] [place] [phone] Oct, [facility] [id number] [place] [address] Oct, Chronic pain G89.29 [facility] [address] [id number] Oct, Dental examination Z01.20 [facility] [id number] [place] [address] Oct, Dental examination Z01.20 and Periodontitis K05.30 [facility] [address] [id number] Oct, Dental examination Z01.20 [facility] [id number] [place] [id number] Sep, Abscess L02.91 [facility] [id number] [place] [address] Sep, Dental examination Z01.20 [facility] [id number] [place] [phone] Sep, [facility] [id number] [place] [id number] Sep, Dental examination Z01.20 and Dental caries K02.9 [facility] [id number] [place] [id number] 18 Sep, 2016 Primary insomnia F51.01 and Anxiety associated with depression F41.8 [facility] [id number] [place] [address] 14 Sep, 2016 Rheumatoid arthritis with rheumatoid factor of right wrist without organ or systems involvement M05.731 [facility] [id number] [place] [address] Sep, Chronic pain G89.29 [place] [id number] [place] [address] Sep, Type 2 diabetes mellitus with diabetic neuropathy, unspecified E11.40 ; Emphysema, unspecified J43.9 ; Gastro-esophageal reflux disease without esophagitis K21.9 ; Hypertension I10 ; Hyperlipemia E78.5 ; Anxiety associated with depression F41.8 ; Chronic pain G89.29 ; Vitamin D deficiency E55.9 and Primary insomnia F51.01 [facility] [id number] [place] [address] 16 Aug, 2016 Anxiety associated with depression F41.8 [facility] [id number] [place] [address] Aug, Chronic pain G89.29 and Neuropathy G62.9 [facility] [id number] [place] [address] Aug, Type 2 diabetes mellitus with diabetic neuropathy, unspecified E11.40 ; Rheumatoid arthritis involving multiple sites with positive rheumatoid factor M05.79 ; Vitamin D deficiency E55.9 ; Anxiety associated with depression F41.8 and Primary insomnia F51.01 [facility] [id number] [place] [address] July, Emphysema, unspecified J43.9 [facility] [id number] [place] [phone] July, Allergic rhinitis J30.9 [facility] [address] [place] [address] July, Allergic rhinitis J30.9 ; Emphysema, unspecified J43.9 and Rheumatoid arthritis with rheumatoid factor of right wrist without organ or systems involvement M05.731 [facility] [id number] [place] [address] July, Neuropathy G62.9 and Chronic pain G89.29 [facility] [id number] [place] [address] July, Rheumatoid arthritis involving multiple sites with positive rheumatoid factor M05.79 [facility] [address] [address] Jun, [facility] [id number] [place] [address] Jun, Neuropathy G62.9 and Chronic pain G89.29 [facility] [id number] [place] [address] May, Neuropathy G62.9 and Chronic pain G89.29 [facility] [id number] [place] [address] May, [facility] [id number] [place] [address] May, [facility] [id number] [place] [address] May, Type 2 diabetes mellitus with diabetic [...] system involvement with positive rheumatoid factor M05.732 [facility] [id number] [place] [address] 14 Apr, 2016 Chronic pain G89.29 [facility] [id number] [place] [address] Mar, Gastro-esophageal reflux disease without esophagitis K21.9 [facility] [id number] [place] [address] Mar, [facility] [id number] [place] [phone] Mar, Rheumatoid arthritis with rheumatoid factor of right wrist without organ or systems involvement M05.731 [facility] [id number] [place] [address] Mar, Chronic pain G89.29 [facility] [id number] [place] [address] Feb, Hyperlipemia E78.5 [facility] [id number] [place] [address] Feb, Abnormal breath sounds R06.89 ; COPD with exacerbation J44.1 and Fatigue, unspecified type R53.83 [facility] [id number] [place] [address] Feb, Neuropathy G62.9 ; Abnormal lung sounds R09.89 and Bronchitis J40 [facility] [id number] [place] [address] Feb, Bronchitis J40 [facility] [id number] [place] [address] Feb, Chronic pain G89.29 [facility] [id number] [place] [phone] Jan, Type 2 diabetes mellitus with diabetic neuropathy, unspecified E11.40 ; Rheumatoid arthritis with rheumatoid factor of right wrist without organ or systems involvement M05.731 and Hyperlipemia E78.5 [facility] [address] [place] [address] Jan, Rheumatoid arthritis with rheumatoid factor of right wrist without organ or systems involvement M05.731 [facility] [id number] [place] [address] Jan, De Quervain's disease (radial styloid tenosynovitis) M65.4 ; Closed nondisplaced fracture of scaphoid of left wrist, unspecified portion of scaphoid, initial encounter S62.002A and Peripheral tear of medial meniscus of left knee, unspecified whether old or current tear, initial encounter S83.222A [facility] [facility] [id number] [place] [address] Jan, Hypertension I10 ; Type 2 diabetes mellitus with diabetic neuropathy, unspecified E11.40 ; Hyperlipemia E78.5 ; Allergic rhinitis J30.9 ; Neuropathy G62.9 ; Rheumatoid arthritis with rheumatoid factor of right wrist without organ or systems involvement M05.731 ; Acute non-recurrent maxillary sinusitis J01.00 and Chronic pain G89.29 [facility] [id number] [place] [address] Dec, [facility] [facility] [id number] [place] [address] Dec, [place] [address] [place] [address] Dec, Type 2 diabetes mellitus with diabetic neuropathy, unspecified E11.40 ; Emphysema, unspecified J43.9 ; Gastro-esophageal reflux disease without esophagitis K21.9 ; Hypertension I10 ; Hyperlipemia E78.5 ; Rheumatoid arthritis with rheumatoid factor of right wrist without organ or systems involvement M05.731 ; Elevated white blood cell count, unspecified D72.829 ; Acute non- recurrent frontal sinusitis J01.10 and Chronic pain G89.29 [place] [address] [place] [address] Nov, [facility] [facility] [id number] [place] [address] Nov, Elevated white blood cell count, unspecified D72.829 ; Encounter for immunization Z23 ; Rheumatoid arthritis with rheumatoid factor of right wrist without organ or systems involvement M05.731 ; Injury of left hand S69.92XA ; Pain in left knee M25.562 and Other chronic pain G89.29 [place] [id number] [place] [address] Nov, [facility] [facility] [id number] [place] [phone] Nov, [facility] [facility] [id number] [place] [phone] Oct, [facility] [id number] [place] [address] Oct, Hyperlipemia E78.5 [facility] [id number] [place] [phone] Oct, [facility] [facility] [id number] [place] [phone] Oct, Type 2 diabetes mellitus with diabetic neuropathy, unspecified E11.40 ; Neuropathy G62.9 ; Hypertension I10 ; Chronic pain G89.29 and Hyperlipemia E78.5 [place] [id number] [place] [phone] Oct, Emphysema, unspecified J43.9 and Rheumatoid arthritis of left wrist without organ or system involvement with positive rheumatoid factor M05.732 [place] [id number] [place] [phone] Sep, Chronic pain syndrome G89.4 [facility] [facility] [id number] [place] [phone] Sep, [place] [id number] [place] [phone] Sep, [place] [address] [place] [address] Sep, Closed nondisplaced fracture of scaphoid of left wrist, unspecified portion of scaphoid, initial encounter S62.002A [facility] [id number] [place] [id number] Sep, Type 2 diabetes mellitus with diabetic neuropathy, unspecified E11.40 ; Hypertension I10 ; Hyperlipemia E78.5 and Acute non-recurrent maxillary sinusitis J01.00 [facility] [id number] [place] [id number] Sep, [facility] [address] [id number] Sep, [facility] [address] [id number] [place] [id number] Sep, [facility] [address] [id number] [place] [address] [address] Sep, [facility] [id number] [place] [id number] Aug, Epigastric pain R10.13 and Right upper quadrant pain R10.11 [facility] [id number] [place] [phone] Aug, Closed nondisplaced fracture of scaphoid of left wrist, unspecified portion of scaphoid, initial encounter S62.002A [facility] [id number] [place] [phone] Aug, [facility] [id number] [place] [phone] Aug, [facility] [id number] [place] [phone] Aug, Shortness of breath R06.02 ; Epigastric pain R10.13 and Injury of left lower arm, initial encounter S59.912A [facility] [id number] [place] [address] Aug, Coronary artery disease involving [place] heart with angina pectoris, unspecified vessel or lesion type I25.119 ; Pulmonary emphysema, unspecified emphysema type J43.9 and Snoring R06.83 [place] [address] [id number] [place] [phone] Aug, [place] [id number] [place] [phone] Aug, Emphysema, unspecified J43.9 ; Atherosclerotic heart disease of [place] coronary artery 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.10 and Hypertension I10 [place] [address] [id number] [place] [phone] July, [place] [id number] [place] [phone] July, Closed nondisplaced fracture of scaphoid of left wrist, unspecified portion of scaphoid, initial encounter S62.002A [place] [id number] [place] [phone] July, [place] [address] [id number] [place] [phone] July, Type 2 diabetes mellitus with diabetic neuropathy, unspecified E11.40 ; Emphysema, unspecified J43.9 ; Atherosclerotic heart disease of [place] coronary artery 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.10 ; [...] agents L24.89 and Hospital discharge follow-up Z09 [place] [id number] [place] [phone] July, [place] [id number] [place] [phone] July, Type 2 diabetes mellitus with diabetic neuropathy, unspecified E11.40 [facility] [address] [address] July, Type 2 diabetes mellitus with diabetic neuropathy, unspecified E11.40 and Rheumatoid arthritis of left wrist without organ or system involvement with positive rheumatoid factor M05.732 [facility] [address] [address] July, [facility] [id number] [place] [phone] July, [facility] [id number] [place] [phone] Jun, [facility] [id number] [place] [phone] Jun, [facility] [id number] [place] [phone] Jun, 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 [facility] [id number] [place] [phone] Jun, [facility] [id number] [place] [phone] Jun, 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 [facility] [address] [address] Jun, [facility] [address] [address] Jun, [facility] [address] [address] Jun, Encounter for PPD test Z11.1 ; Rheumatoid arthritis with rheumatoid factor of right wrist without organ or systems involvement M05.731 and Rheumatoid arthritis of left wrist without organ or system involvement with positive rheumatoid factor M05.732 [facility] [address] [address] Jun, Type 2 diabetes mellitus with diabetic neuropathy, unspecified E11.40 [place] [id number] [place] [address] May, Type 2 diabetes mellitus with diabetic neuropathy, unspecified E11.40 ; Emphysema, unspecified J43.9 ; Rheumatoid arthritis with rheumatoid factor of right wrist without organ or systems involvement M05.731 ; Rheumatoid arthritis of left wrist without organ or system involvement with positive rheumatoid factor M05.732 and Chronic pain G89.29 [place] [address] [address] May, [place] [address] [address] May, Swelling of hand joint M25.449 ; Ankle swelling M25.473 and Joint pain M25.50 [place] [id number] [place] [phone] May, Emphysema, unspecified J43.9 [place] [address] [address] May, Gastroenteritis K52.9 and Hypertension I10 [place] [id number] [place] [phone] Apr, [place] [id number] [place] [phone] Apr, [place] [id number] [place] [phone] Apr, [place] [id number] [place] [address] Apr, Type 2 diabetes mellitus with diabetic neuropathy, unspecified E11.40 ; Emphysema, unspecified J43.9 ; Atherosclerotic heart disease of [place] coronary artery 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.10 ; Migraine without aura, not intractable, with status migrainosus G43.001 ; Gastro-esophageal reflux disease without esophagitis K21.9 ; CAD (coronary artery disease) I25.10 ; Hypertension I10 ; Hyperlipemia E78.5 ; Allergic rhinitis J30.9 ; Neuropathy G62.9 ; Anxiety associated with depression F41.8 and Injury of left hand S69.92XA [place] [address] [address] Apr, [place] [address] [address] Apr, [place] [address] [address] Apr, Type 2 diabetes mellitus with diabetic neuropathy, unspecified E11.40 ; Emphysema, unspecified J43.9 ; Essential (primary) hypertension I10 ; Atherosclerotic heart disease of [place] coronary artery 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.10 ; Gastro-esophageal reflux disease without esophagitis K21.9 ; CAD (coronary artery disease) I25.10 ; Hyperlipemia E78.5 ; Hypertension I10 ; History of solitary pulmonary nodule Z87.898 ; Allergic rhinitis J30.9 ; Chronic pain G89.29 and Depression with anxiety F41.[address] [address] Mar, [address] [address] Mar, Allergic rhinitis J30.9 ; URI (upper respiratory infection) J06.9 and Other viral agents as the cause of diseases classified elsewhere B97.89 [facility] [id number] [place] [phone] Feb, Acute nasopharyngitis [common cold] J00 and Acute diarrhea R19.[address] [address] Feb, Depression F32.[address] [address] Jan, Otitis media, right H66.[address] [address] Jan, [id number] [place] [address] Jan, Type 2 diabetes mellitus with diabetic neuropathy, unspecified E11.40 [place] [address] [address] Jan, [place] [address] [address] Jan, Hyperlipemia E78.5 [place] [address] [address] Jan, Type 2 diabetes mellitus with diabetic neuropathy, unspecified E11.40 ; Emphysema, unspecified J43.9 ; CAD (coronary artery disease) I25.10 and Hyperlipemia E78.5 [place] [address] [address] Dec, Allergic rhinitis J30.9 and Fungal infection B49 [place] [address] [address] Dec, [place] [address] [address] Dec, [place] [address] [address] Dec, Chest pain R07.9 ; CAD (coronary artery disease) I25.10 ; Hypertension I10 and Hyperlipemia E78.5 [place] [address] [address] Dec, Pain in thoracic spine M54.6 ; Gastro-esophageal reflux disease without esophagitis K21.9 ; Emphysema, unspecified J43.9 and Migraine without aura, not intractable, with status migrainosus G43.001 [place] [address] [address] Dec, [place] [address] [address] Nov, Influenza vaccine administered V04.81 [facility] [address] [facility] [id number] [address] Nov, [facility] [id number] [address] Sep, [facility] [id number] [address] Sep, [facility] [id number] [place] [address] Sep, CAD (coronary artery disease) 414.00 and Diabetes type 2, uncontrolled 250.02 [place] [id number] [address] Sep, CAD (coronary artery disease) 414.00 ; Diabetes type 2, uncontrolled 250.02 and Migraine 346.90 IMMUNIZATIONS No Known Immunizations SOCIAL HISTORY Never Assessed REASON FOR VISIT NEVIN MEDRANO --- DENIED PLAN OF CARE VITAL SIGNS MEDICATIONS Unknown [...] unspecified Medical History Atherosclerotic heart disease of [place] coronary artery without angina pectoris Medical History [...]
[2018-08-23] MEDS ORDERED: HYDR50CA3 PO (16:54)
[2018-08-23] MEDS ORDERED: PARO20TA5 PO (16:54)
[2018-08-23] MEDS ORDERED: ALBU6.7H8 INH (16:54)
[2018-08-23] MEDS ORDERED: ASPI-983 PO (16:54)
[2018-08-23] MEDS ORDERED: BUTA1TAB9 PO (16:54)
[2018-08-23] MEDS ORDERED: BECL25SP NS (16:54)
--- OUTSIDE RECORDS SUMMARY | 2018-08-23 16:54 | XMS REPORT ---
Author Author PANCHOROBCLAU Organization [facility] Address [address] [place] [address] Care Team Providers Care Communications Director Name Role Phone DELEONROB MoranELE Unavailable PROBLEMS Type Condition ICD9-CM Code FWI19-WL Code Onset Dates Condition Status SNOMED Code Problem Neuropathy G62.9 Active 633713901 Problem Other hammer toe(s) (acquired), right foot M20.41 Active 199591408 Problem Other hammer toe(s) (acquired), left foot M20.42 Active 05454030 Problem Intractable migraine without status migrainosus, unspecified migraine type G43.919 Active 868723870 Problem Gastro-esophageal reflux disease without esophagitis K21.9 Active 912548186 Problem Elevated white blood cell count, unspecified D72.829 Active 069050680 Problem Hypertension I10 Active 10145284 Problem Hyperlipemia E78.5 Active 78614508 Problem Hammer toe of left foot M20.42 Active 810283450 Problem Tobacco abuse Z72.0 Active 921897588 Problem Other chronic pain G89.29 Active 16096529 Problem Atherosclerotic heart disease of [place] coronary artery 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.10 Active 217266951682788 Problem Allergic rhinitis J30.9 Active 14492328 Problem Anxiety associated with depression F41.8 Active 717087912 Problem Emphysema, unspecified J43.9 Active 99990589 Problem Type 2 diabetes mellitus with diabetic neuropathy, unspecified E11.40 Active 84950378 Problem Rheumatoid arthritis involving multiple sites with positive rheumatoid factor M05.79 Active 527930824 Problem Primary insomnia F51.01 Active 8256924 Problem Chronic pain G89.29 Active 05024278 Problem Periodontitis K05.30 Active 80067836 Problem Vitamin D deficiency E55.9 Active 82949655 Problem OAB (overactive bladder) N32.81 Active 208531942 Problem Dependence on nocturnal oxygen therapy Z99.81 Active [id number] ALLERGIES No Information ENCOUNTERS Encounter Location Date Diagnosis [facility] [id number] [place] [id number] 16 Jan, 2018 [facility] [id number] [place] [address] Dec, [facility] [id number] [place] [address] 24 Nov, 2017 [facility] [address] [address] Oct, Dysuria R30.0 ; Intractable migraine without status migrainosus, unspecified migraine type G43.919 and Back pain at L4-L5 level M54.5 [facility] [id number] [place] [address] Oct, Orthostatic hypotension I95.1 [facility] [id number] [place] [address] Oct, Localized swelling of both lower legs R22.43 ; Onychomycosis B35.1 and Type 2 diabetes mellitus with diabetic neuropathy, unspecified E11.40 [facility] [id number] [place] [address] Oct, [facility] [id number] [place] [address] Oct, Elevated white blood cell count, unspecified D72.829 [facility] [id number] [place] [address] Oct, Elevated white blood cell count, unspecified D72.829 [facility] [id number] [place] [address] Oct, Chronic pain G89.29 [facility] [id number] [place] [address] Oct, [facility] [id number] [place] [address] Oct, [facility] [id number] [place] [address] Oct, Orthostatic hypotension I95.1 ; Dizziness R42 and Neuropathy G62.9 [facility] [id number] [place] [address] Oct, Dizziness R42 ; Low back pain M54.5 ; Other chronic pain G89.29 ; Nausea R11.0 and Orthostatic hypotension I95.1 [facility] [address] [address] Sep, Rheumatoid arthritis involving multiple sites with positive rheumatoid factor M05.79 and Tobacco abuse Z72.0 [facility] [address] [address] Sep, Chronic pain G89.29 [facility] [id number] [place] [address] Aug, Type 2 diabetes mellitus with diabetic neuropathy, unspecified E11.40 ; Hypertension I10 ; Hyperlipemia E78.5 ; Gastro-esophageal reflux disease without esophagitis K21.9 ; Emphysema, unspecified J43.9 ; Anxiety associated with depression F41.8 ; Vitamin D deficiency E55.9 ; Chronic pain G89.29 ; Tobacco abuse Z72.0 ; Overweight (BMI 25.0-29.9) E66.3 ; Atherosclerotic heart disease of [place] coronary artery 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.10 ; OAB (overactive bladder) N32.81 and Primary insomnia F51.01 [facility] [id number] [place] [address] July, [facility] [id number] [place] [address] July, [facility] [id number] [place] [address] July, Chronic pain G89.29 [facility] [id number] [place] [address] July, [facility] [address] [address] July, Onychomycosis B35.1 ; Hammer toe of left foot M20.42 and Type 2 diabetes mellitus with diabetic neuropathy, unspecified E11.40 [facility] [id number] [place] [address] July, [facility] [id number] [place] [address] July, Chronic pain G89.29 and Neuropathy G62.9 [facility] [id number] [place] [address] July, [facility] [id number] [place] [address] July, [facility] [id number] [place] [address] Jun, [facility] [id number] [place] [address] Jun, Chronic pain G89.29 [facility] [id number] [place] [address] Jun, [facility] [id number] [place] [address] Jun, [facility] [id number] [place] [address] Jun, Visit for TB skin test Z11.1 [facility] [address] [place] [address] Jun, [facility] [id number] [place] [address] Jun, [facility] [address] [address] Jun, Tobacco abuse Z72.0 and Rheumatoid arthritis involving multiple sites with positive rheumatoid factor M05.79 [facility] [id number] [place] [address] Jun, Anxiety F41.9 ; Acute non-recurrent maxillary sinusitis J01.00 and Chronic pain G89.29 [facility] [id number] [place] [address] Jun, [facility] [id number] [place] [address] May, Rheumatoid arthritis involving multiple sites with positive rheumatoid factor M05.79 [facility] [address] [address] May, Chronic pain G89.29 [facility] [id number] [place] [address] May, [facility] [id number] [place] [address] May, [facility] [id number] [place] [address] May, [facility] [id number] [place] [address] May, Type 2 diabetes mellitus with diabetic neuropathy, unspecified E11.40 [facility] [id number] [place] [address] May, Type 2 diabetes mellitus with diabetic neuropathy, unspecified E11.40 ; Emphysema, unspecified J43.9 ; Hypertension I10 ; Hyperlipemia E78.5 ; Vitamin D deficiency E55.9 ; Right medial knee pain M25.561 ; Controlled substance agreement signed Z79.899 ; Chronic pain G89.29 ; Allergic rhinitis J30.9 ; Anxiety associated with depression F41.8 ; Neuropathy G62.9 and Gastro- esophageal reflux disease without esophagitis K21.9 [facility] [id number] [place] [address] Apr, Chronic pain G89.29 [facility] [address] [address] 16 Apr, 2017 Other hammer toe(s) (acquired), left foot M20.42 ; Other hammer toe(s) (acquired), right foot M20.41 ; Type 2 diabetes mellitus with diabetic neuropathy, unspecified E11.40 and Onychomycosis B35.1 [facility] [id number] [place] [address] 2017 Gastro-esophageal reflux disease without esophagitis K21.9 [facility] [id number] [place] [address] 02 Apr, 2017 Controlled substance agreement signed Z79.899 [facility] [facility] [address] [address] Mar, Chronic pain G89.29 [facility] [address] [address] Mar, Emphysema, unspecified J43.9 and Type 2 diabetes mellitus with diabetic neuropathy, unspecified E11.40 [facility] [id number] [place] [address] Mar, Dysuria R30.0 ; Vaginal candidiasis B37.3 and Acute nonintractable headache, unspecified headache type R51 [facility] [id number] [place] [address] Feb, Neuropathy G62.9 and Chronic pain G89.29 [facility] [id number] [place] [address] Feb, Gastro-esophageal reflux disease without esophagitis K21.9 [facility] [address] [address] Feb, [facility] [address] [address] Feb, Rheumatoid arthritis involving multiple sites with positive rheumatoid factor M05.79 and COPD with acute exacerbation J44.1 [facility] [address] [address] Feb, Vaginal odor N89.8 ; Vaginal irritation N89.8 ; Candidal dermatitis B37.2 and Screening breast examination Z12.31 [facility] [id number] [place] [address] Feb, [facility] [address] [address] Feb, [facility] [facility] [address] [address] Feb, [facility] [facility] [address] [address] Feb, COPD with exacerbation J44.1 ; Tobacco abuse counseling Z71.6 ; Tobacco abuse Z72.0 ; Rheumatoid arthritis involving multiple sites with positive rheumatoid factor M05.79 and Hyperlipemia E78.5 [facility] [address] [address] Feb, [facility] [address] [id number] Jan, [facility] [address] [address] Jan, Chronic pain G89.29 [facility] [address] [id number] Jan, Dental examination Z01.20 [facility] [address] [place] [address] 19 Jan, 2017 Back pain of lumbar region with sciatica M54.40 [facility] [address] [place] [address] 15 Jan, 2017 Acute bacterial conjunctivitis of both eyes H10.33 [facility] [id number] [place] [address] 02 Jan, 2017 Chronic pain G89.29 [facility] [address] [address] Dec, Type 2 diabetes mellitus with diabetic neuropathy, unspecified E11.40 ; Hypertension I10 ; Hyperlipemia E78.5 ; Gastro-esophageal reflux disease without esophagitis K21.9 ; Anxiety associated with depression F41.8 ; Allergic rhinitis J30.9 ; Neuropathy G62.9 and Dependence on nocturnal oxygen therapy Z99.81 [facility] [id number] [place] [address] Dec, [facility] [address] [address] Dec, [facility] [address] [address] Dec, Encounter for immunization Z23 [facility] [address] [address] 05 Dec, 2016 Type 2 diabetes mellitus with diabetic neuropathy, unspecified E11.40 and Chronic pain G89.29 [facility] [address] [address] 11 Nov, 2016 Gastro-esophageal reflux disease without esophagitis K21.9 [facility] [address] [address] 11 Nov, 2016 Peripheral edema R60.9 and Chest pain in adult R07.9 [place] [id number] [place] [address] 07 Nov, 2016 Chronic pain G89.29 [facility] [id number] [place] [address] Oct, [facility] [id number] [place] [address] Oct, [facility] [id number] [place] [address] Oct, Rheumatoid arthritis with rheumatoid factor of right wrist without organ or systems involvement M05.731 [facility] [address] [address] Oct, [facility] [id number] [place] [address] Oct, Acute exacerbation of chronic obstructive pulmonary disease (COPD) J44.1 and Canker sore K12.0 [facility] [id number] [place] [address] Oct, [facility] [address] [address] Oct, [facility] [id number] [place] [address] Oct, Chronic pain G89.29 [facility] [address] [id number] Oct, Dental examination Z01.20 [facility] [id number] [place] [address] Oct, Dental examination Z01.20 and Periodontitis K05.30 [facility] [id number] [place] [id number] Oct, Dental examination Z01.20 [facility] [id number] [place] [address] Sep, Abscess L02.91 [facility] [id number] [place] [address] Sep, Dental examination Z01.20 [facility] [id number] [place] [address] Sep, [facility] [id number] [place] [id number] Sep, Dental examination Z01.20 and Dental caries K02.9 [facility] [id number] [place] [address] Sep, Primary insomnia F51.01 and Anxiety associated with depression F41.8 [facility] [address] [address] Sep, Rheumatoid arthritis with rheumatoid factor of right wrist without organ or systems involvement M05.731 [facility] [address] [place] [address] Sep, Chronic pain G89.29 [facility] [address] [place] [address] 14 Sep, 2016 Type 2 diabetes mellitus with diabetic neuropathy, unspecified E11.40 ; Emphysema, unspecified J43.9 ; Gastro-esophageal reflux disease without esophagitis K21.9 ; Hypertension I10 ; Hyperlipemia E78.5 ; Anxiety associated with depression F41.8 ; Chronic pain G89.29 ; Vitamin D deficiency E55.9 and Primary insomnia F51.01 [facility] [address] [place] [address] 16 Aug, 2016 Anxiety associated with depression F41.8 [facility] [id number] [place] [address] Aug, Chronic pain G89.29 and Neuropathy G62.9 [facility] [id number] [place] [address] 13 Aug, 2016 Type 2 diabetes mellitus with diabetic neuropathy, unspecified E11.40 ; Rheumatoid arthritis involving multiple sites with positive rheumatoid factor M05.79 ; Vitamin D deficiency E55.9 ; Anxiety associated with depression F41.8 and Primary insomnia F51.01 [facility] [address] [place] [address] July, Emphysema, unspecified J43.9 [facility] [address] [place] [address] July, Allergic rhinitis J30.9 [facility] [id number] [place] [address] July, Allergic rhinitis J30.9 ; Emphysema, unspecified J43.9 and Rheumatoid arthritis with rheumatoid factor of right wrist without organ or systems involvement M05.731 [facility] [id number] [place] [address] July, Neuropathy G62.9 and Chronic pain G89.29 [facility] [id number] [place] [address] July, Rheumatoid arthritis involving multiple sites with positive rheumatoid factor M05.79 [facility] [id number] [place] [address] Jun, [facility] [address] [address] Jun, Neuropathy G62.9 and Chronic pain G89.[address] [address] May, Neuropathy G62.9 and Chronic pain G89.29 [address] [id number] [place] [address] May, [facility] [address] [address] May, [place] [id number] [place] [address] May, Type 2 diabetes mellitus with diabetic [...] system involvement with positive rheumatoid factor M05.732 [facility] [id number] [place] [address] Apr, Chronic pain G89.29 [place] [id number] [place] [address] Mar, Gastro-esophageal reflux disease without esophagitis K21.9 [facility] [id number] [place] [address] Mar, [facility] [address] [address] Mar, Rheumatoid arthritis with rheumatoid factor of right wrist without organ or systems involvement M05.731 [facility] [address] [address] Mar, Chronic pain G89.29 [facility] [id number] [place] [address] Feb, Hyperlipemia E78.5 [facility] [facility] [address] [address] Feb, Abnormal breath sounds R06.89 ; COPD with exacerbation J44.1 and Fatigue, unspecified type R53.83 [facility] [facility] [address] [address] Feb, Neuropathy G62.9 ; Abnormal lung sounds R09.89 and Bronchitis J40 [facility] [id number] [place] [address] Feb, Bronchitis J40 [facility] [id number] [place] [address] Feb, Chronic pain G89.29 [facility] [id number] [place] [address] Jan, Type 2 diabetes mellitus with diabetic neuropathy, unspecified E11.40 ; Rheumatoid arthritis with rheumatoid factor of right wrist without organ or systems involvement M05.731 and Hyperlipemia E78.5 [facility] [id number] [place] [address] Jan, Rheumatoid arthritis with rheumatoid factor of right wrist without organ or systems involvement M05.731 [facility] [address] [address] Jan, De Quervain's disease (radial styloid tenosynovitis) M65.4 ; Closed nondisplaced fracture of scaphoid of left wrist, unspecified portion of scaphoid, initial encounter S62.002A and Peripheral tear of medial meniscus of left knee, unspecified whether old or current tear, initial encounter S83.222A [facility] [address] [place] [address] Jan, Hypertension I10 ; Type 2 diabetes mellitus with diabetic neuropathy, unspecified E11.40 ; Hyperlipemia E78.5 ; Allergic rhinitis J30.9 ; Neuropathy G62.9 ; Rheumatoid arthritis with rheumatoid factor of right wrist without organ or systems involvement M05.731 ; Acute non-recurrent maxillary sinusitis J01.00 and Chronic pain G89.29 [facility] [id number] [place] [address] Dec, [facility] [facility] [address] [address] Dec, [facility] [facility] [address] [address] Dec, Type 2 diabetes mellitus with diabetic neuropathy, unspecified E11.40 ; Emphysema, unspecified J43.9 ; Gastro-esophageal reflux disease without esophagitis K21.9 ; Hypertension I10 ; Hyperlipemia E78.5 ; Rheumatoid arthritis with rheumatoid factor of right wrist without organ or systems involvement M05.731 ; Elevated white blood cell count, unspecified D72.829 ; Acute non- recurrent frontal sinusitis J01.10 and Chronic pain G89.29 [facility] [id number] [place] [address] Nov, [facility] [facility] [address] [address] Nov, Elevated white blood cell count, unspecified D72.829 ; Encounter for immunization Z23 ; Rheumatoid arthritis with rheumatoid factor of right wrist without organ or systems involvement M05.731 ; Injury of left hand S69.92XA ; Pain in left knee M25.562 and Other chronic pain G89.29 [facility] [facility] [address] [address] Nov, [facility] [id number] [place] [address] Nov, [facility] [id number] [place] [address] Oct, [facility] [id number] [place] [address] Oct, Hyperlipemia E78.5 [facility] [facility] [id number] [place] [address] Oct, [facility] [facility] [id number] [place] [address] Oct, Type 2 diabetes mellitus with diabetic neuropathy, unspecified E11.40 ; Neuropathy G62.9 ; Hypertension I10 ; Chronic pain G89.29 and Hyperlipemia E78.5 [facility] [address] [place] [address] Oct, Emphysema, unspecified J43.9 and Rheumatoid arthritis of left wrist without organ or system involvement with positive rheumatoid factor M05.732 [facility] [id number] [place] [address] Sep, Chronic pain syndrome G89.4 [facility] [facility] [address] [place] [address] Sep, [facility] [id number] [place] [address] Sep, [facility] [id number] [place] [address] Sep, Closed nondisplaced fracture of scaphoid of left wrist, unspecified portion of scaphoid, initial encounter S62.002A [facility] [id number] [place] [address] Sep, Type 2 diabetes mellitus with diabetic neuropathy, unspecified E11.40 ; Hypertension I10 ; Hyperlipemia E78.5 and Acute non-recurrent maxillary sinusitis J01.00 [facility] [facility] [id number] [place] [address] Sep, [facility] [id number] [place] [address] Sep, [facility] [address] [address] Sep, [facility] [id number] [place] [address] Sep, [place] [address] [address] Aug, Epigastric pain R10.13 and Right upper quadrant pain R10.11 [place] [address] [address] Aug, Closed nondisplaced fracture of scaphoid of left wrist, unspecified portion of scaphoid, initial encounter S62.002A [facility] [address] [address] Aug, [facility] [facility] [id number] [place] [address] Aug, [facility] [id number] [place] [address] Aug, Shortness of breath R06.02 ; Epigastric pain R10.13 and Injury of left lower arm, initial encounter S59.912A [place] [address] [address] Aug, 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, unspecified vessel or lesion type I25.119 ; Pulmonary emphysema, unspecified emphysema type J43.9 and Snoring R06.83 [place] [id number] [place] [address] Aug, [place] [address] [place] [address] Aug, Emphysema, unspecified J43.9 ; Atherosclerotic heart disease of wilton coronary artery 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.10 and Hypertension I10 [place] [id number] [place] [address] July, [place] [address] [place] [id number] [place] [address] July, Closed nondisplaced fracture of scaphoid of left wrist, unspecified portion of scaphoid, initial encounter S62.002A [place] [address] [place] [id number] [place] [address] July, [place] [address] [place] [id number] [place] [address] July, Type 2 diabetes mellitus with diabetic neuropathy, unspecified E11.40 ; Emphysema, unspecified J43.9 ; Atherosclerotic heart disease of [place] coronary artery 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.10 ; [...] agents L24.89 and Hospital discharge follow-up Z09 [place] [address] [address] July, [place] [id number] [place] [address] July, Type 2 diabetes mellitus with diabetic neuropathy, unspecified E11.40 [place] [address] [address] July, Type 2 diabetes mellitus with diabetic neuropathy, unspecified E11.40 and Rheumatoid arthritis of left wrist without organ or system involvement with positive rheumatoid factor M05.732 [facility] [address] [address] July, [facility] [address] [address] July, [facility] [address] [address] Jun, [facility] [id number] [place] [address] Jun, [facility] [address] [address] Jun, 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 [facility] [address] [address] Jun, [facility] [address] [address] Jun, 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 [facility] [address] [address] Jun, [facility] [address] [address] Jun, [facility] [address] [address] Jun, Encounter for PPD test Z11.1 ; Rheumatoid arthritis with rheumatoid factor of right wrist without organ or systems involvement M05.731 and Rheumatoid arthritis of left wrist without organ or system involvement with positive rheumatoid factor M05.732 [facility] [address] [place] [id number] [address] Jun, Type 2 diabetes mellitus with diabetic neuropathy, unspecified E11.40 [facility] [address] [place] [address] [id number] [address] May, Type 2 diabetes mellitus with diabetic neuropathy, unspecified E11.40 ; Emphysema, unspecified J43.9 ; Rheumatoid arthritis with rheumatoid factor of right wrist without organ or systems involvement M05.731 ; Rheumatoid arthritis of left wrist without organ or system involvement with positive rheumatoid factor M05.732 and Chronic pain G89.29 [place] [address] [address] May, [place] [address] [address] May, Swelling of hand joint M25.449 ; Ankle swelling M25.473 and Joint pain M25.50 [place] [address] [address] May, Emphysema, unspecified J43.[address] [address] May, Gastroenteritis K52.9 and Hypertension I10 [address] [address] Apr, [address] [address] Apr, [place] [address] [address] Apr, [address] [address] Apr, Type 2 diabetes mellitus with diabetic neuropathy, unspecified E11.40 ; Emphysema, unspecified J43.9 ; Atherosclerotic heart disease of [place] coronary artery 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.10 ; Migraine without aura, not intractable, with status migrainosus G43.001 ; Gastro-esophageal reflux disease without esophagitis K21.9 ; CAD (coronary artery disease) I25.10 ; Hypertension I10 ; Hyperlipemia E78.5 ; Allergic rhinitis J30.9 ; Neuropathy G62.9 ; Anxiety associated with depression F41.8 and Injury of left hand S69.92XA [place] [address] [address] Apr, [place] [address] [place] [id number] Apr, [place] [address] [place] [id number] [place] [address] 04 Apr, 2015 Type 2 diabetes mellitus with diabetic neuropathy, unspecified E11.40 ; Emphysema, unspecified J43.9 ; Essential (primary) hypertension I10 ; Atherosclerotic heart disease of [place] coronary artery 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.10 ; Gastro-esophageal reflux disease without esophagitis K21.9 ; CAD (coronary artery disease) I25.10 ; Hyperlipemia E78.5 ; Hypertension I10 ; History of solitary pulmonary nodule Z87.898 ; Allergic rhinitis J30.9 ; Chronic pain G89.29 and Depression with anxiety F41.[address] [address] Mar, [address] [address] Mar, Allergic rhinitis J30.9 ; URI (upper respiratory infection) J06.9 and Other viral agents as the cause of diseases classified elsewhere B97.89 [facility] [address] [address] Feb, Acute nasopharyngitis [common cold] J00 and Acute diarrhea R19.[address] [address] 17 Feb, 2015 Depression F32.[address] [address] Jan, Otitis media, right H66.91 [place] [address] [address] Jan, [address] [address] Jan, Type 2 diabetes mellitus with diabetic neuropathy, unspecified E11.40 [place] [address] [address] Jan, [place] [address] [place] [id number] [place] [address] Jan, Hyperlipemia E78.5 [place] [address] [place] [id number] [place] [address] Jan, Type 2 diabetes mellitus with diabetic neuropathy, unspecified E11.40 ; Emphysema, unspecified J43.9 ; CAD (coronary artery disease) I25.10 and Hyperlipemia E78.5 [place] [address] [address] Dec, Allergic rhinitis J30.9 and Fungal infection B49 [place] [address] [address] Dec, [place] [address] [address] Dec, [place] [address] [address] Dec, Chest pain R07.9 ; CAD (coronary artery disease) I25.10 ; Hypertension I10 and Hyperlipemia E78.5 [place] [address] [address] Dec, Pain in thoracic spine M54.6 ; Gastro-esophageal reflux disease without esophagitis K21.9 ; Emphysema, unspecified J43.9 and Migraine without aura, not intractable, with status migrainosus G43.001 [place] [address] [place] [id number] [place] [address] Dec, [place] [address] [place] [id number] [place] [address] Nov, Influenza vaccine administered V04.81 [place] [address] [place] [id number] [place] [address] Nov, [place] [address] [place] [id number] [place] [address] Sep, [place] [id number] [address] Sep, [facility] [address] [facility] [id number] [address] Sep, CAD (coronary artery disease) 414.00 and Diabetes type 2, uncontrolled 250.02 [facility] [address] [facility] [id number] [place] [address] Sep, CAD (coronary artery disease) 414.00 ; Diabetes type 2, uncontrolled 250.02 and Migraine 346.90 IMMUNIZATIONS No Known Immunizations SOCIAL HISTORY Never Assessed REASON FOR VISIT Controlled Med Refill PLAN OF CARE VITAL SIGNS MEDICATIONS Medication Instructions Dosage Frequency Start Date End Date Duration Status Hydrocodone-Acetaminophen 7.5-325 MG Orally every 6 hours as needed 1 tablet as needed Sep, 28 days Active RESULTS No Results PROCEDURES [...] unspecified Medical History Atherosclerotic heart disease of [place] coronary artery without angina pectoris Medical History [...]
--- OUTSIDE RECORDS SUMMARY | 2018-08-23 16:55 | XMS REPORT ---
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 Name Role Phone CLAU DELEON Unavailable PROBLEMS Type Condition ICD9-CM Code KVM64-VS Code Onset Dates Condition Status SNOMED Code Problem Dependence on nocturnal oxygen therapy Z99.81 Active 67525187210019 Problem Other hammer toe(s) (acquired), left foot M20.42 Active 32938600 Problem Neuropathy G62.9 Active 845537354 Problem Elevated white blood cell count, unspecified D72.829 Active 540875389 Problem Hypertension I10 Active 64453035 Problem Other chronic pain G89.29 Active 48441341 Problem Hyperlipemia E78.5 Active 14835090 Problem Vitamin D deficiency E55.9 Active 87599809 Problem Tobacco abuse Z72.0 Active 105496286 Problem Other hammer toe(s) (acquired), right foot M20.41 Active 162500494 Problem Atherosclerotic heart disease of [place] coronary artery 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.10 Active 411517676778496 Problem Hammer toe of left foot M20.42 Active 642317360 Problem Type 2 diabetes mellitus with diabetic neuropathy, unspecified E11.40 Active 97496944 Problem Allergic rhinitis J30.9 Active 33911179 Problem Gastro-esophageal reflux disease without esophagitis K21.9 Active 551376139 Problem Emphysema, unspecified J43.9 Active 86496849 Problem OAB (overactive bladder) N32.81 Active 607711781 Problem Rheumatoid arthritis involving multiple sites with positive rheumatoid factor M05.79 Active 137384057 Problem Anxiety associated with depression F41.8 Active 430498903 Problem Primary insomnia F51.01 Active 3108407 Problem Chronic pain G89.29 Active 58213940 Problem Periodontitis K05.30 Active 80676156 ALLERGIES Substance Reaction Event Type Date Status Sulfamethoxazole-Trimethoprim itching Drug Allergy Aug, Active Singulair dizziness Drug Allergy Aug, Active ENCOUNTERS Encounter Location Date Diagnosis [facility] [id number] [place] [address] Jan, [facility] [id number] [place] [address] Dec, [facility] [id number] [place] [address] Nov, [facility] [id number] [place] [address] Oct, Orthostatic hypotension I95.1 [place] [id number] [place] [address] Oct, Localized swelling of both lower legs R22.43 ; Onychomycosis B35.1 and Type 2 diabetes mellitus with diabetic neuropathy, unspecified E11.40 [place] [id number] [place] [address] Oct, [facility] [id number] [place] [address] Oct, Elevated white blood cell count, unspecified D72.829 [place] [id number] [place] [address] Oct, Elevated white blood cell count, unspecified D72.829 [place] [id number] [place] [address] Oct, Chronic pain G89.29 [facility] [id number] [place] [address] Oct, [facility] [id number] [place] [address] Oct, [facility] [id number] [place] [address] Oct, Orthostatic hypotension I95.1 ; Dizziness R42 and Neuropathy G62.9 [facility] [id number] [place] [address] Oct, Dizziness R42 ; Low back pain M54.5 ; Other chronic pain G89.29 ; Nausea R11.0 and Orthostatic hypotension I95.1 [place] [address] [address] Sep, Rheumatoid arthritis involving multiple sites with positive rheumatoid factor M05.79 and Tobacco abuse Z72.[address] [address] Sep, Chronic pain G89.29 [place] [address] [address] Aug, Type 2 diabetes mellitus with diabetic neuropathy, unspecified E11.40 ; Hypertension I10 ; Hyperlipemia E78.5 ; Gastro-esophageal reflux disease without esophagitis K21.9 ; Emphysema, unspecified J43.9 ; Anxiety associated with depression F41.8 ; Vitamin D deficiency E55.9 ; Chronic pain G89.29 ; Tobacco abuse Z72.0 ; Overweight (BMI 25.0-29.9) E66.3 ; Atherosclerotic heart disease of [place] coronary artery 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.10 ; OAB (overactive bladder) N32.81 and Primary insomnia F51.01 [place] [id number] [place] [address] July, [place] [id number] [place] [address] July, [place] [address] [address] July, Chronic pain G89.29 [place] [address] [address] July, [address] [address] July, Onychomycosis B35.1 ; Hammer toe of left foot M20.42 and Type 2 diabetes mellitus with diabetic neuropathy, unspecified E11.40 [facility] [id number] [place] [address] July, [facility] [address] [address] July, Chronic pain G89.29 and Neuropathy G62.9 [facility] [id number] [place] [address] July, [facility] [id number] [place] [address] July, [facility] [id number] [place] [address] Jun, [facility] [id number] [place] [address] Jun, Chronic pain G89.29 [facility] [id number] [place] [address] Jun, [facility] [id number] [place] [address] Jun, [facility] [id number] [place] [address] Jun, Visit for TB skin test Z11.1 [facility] [id number] [place] [address] 16 Jun, 2017 [facility] [id number] [place] [address] Jun, [facility] [id number] [place] [address] Jun, Tobacco abuse Z72.0 and Rheumatoid arthritis involving multiple sites with positive rheumatoid factor M05.79 [facility] [id number] [place] [address] Jun, Anxiety F41.9 ; Acute non-recurrent maxillary sinusitis J01.00 and Chronic pain G89.29 [facility] [id number] [address] Jun, [place] [id number] [place] [address] May, Rheumatoid arthritis involving multiple sites with positive rheumatoid factor M05.79 [place] [id number] [place] [address] May, Chronic pain G89.29 [place] [id number] [place] [address] May, [place] [id number] [place] [address] May, [place] [id number] [place] [address] May, [place] [id number] [place] [address] May, Type 2 diabetes mellitus with diabetic neuropathy, unspecified E11.40 [place] [id number] [place] [address] May, Type 2 diabetes mellitus with diabetic neuropathy, unspecified E11.40 ; Emphysema, unspecified J43.9 ; Hypertension I10 ; Hyperlipemia E78.5 ; Vitamin D deficiency E55.9 ; Right medial knee pain M25.561 ; Controlled substance agreement signed Z79.899 ; Chronic pain G89.29 ; Allergic rhinitis J30.9 ; Anxiety associated with depression F41.8 ; Neuropathy G62.9 and Gastro- esophageal reflux disease without esophagitis K21.9 [place] [address] [place] [address] Apr, Chronic pain G89.29 [place] [id number] [place] [address] 16 Apr, 2017 Other hammer toe(s) (acquired), left foot M20.42 ; Other hammer toe(s) (acquired), right foot M20.41 ; Type 2 diabetes mellitus with diabetic neuropathy, unspecified E11.40 and Onychomycosis B35.1 [facility] [id number] [place] [address] 2017 Gastro-esophageal reflux disease without esophagitis K21.9 [place] [id number] [place] [address] 02 Apr, 2017 Controlled substance agreement signed Z79.899 [place] [address] [address] Mar, Chronic pain G89.29 [place] [id number] [place] [address] Mar, Emphysema, unspecified J43.9 and Type 2 diabetes mellitus with diabetic neuropathy, unspecified E11.40 [facility] [id number] [place] [address] Mar, Dysuria R30.0 ; Vaginal candidiasis B37.3 and Acute nonintractable headache, unspecified headache type R51 [place] [id number] [place] [address] Feb, Neuropathy G62.9 and Chronic pain G89.29 [place] [id number] [place] [address] Feb, Gastro-esophageal reflux disease without esophagitis K21.9 [place] [id number] [place] [address] Feb, [place] [id number] [place] [address] Feb, Rheumatoid arthritis involving multiple sites with positive rheumatoid factor M05.79 and COPD with acute exacerbation J44.1 [place] [address] [address] Feb, Vaginal odor N89.8 ; Vaginal irritation N89.8 ; Candidal dermatitis B37.2 and Screening breast examination Z12.31 [place] [id number] [place] [address] Feb, [facility] [id number] [place] [address] Feb, [place] [id number] [place] [address] Feb, [place] [id number] [place] [address] Feb, COPD with exacerbation J44.1 ; Tobacco abuse counseling Z71.6 ; Tobacco abuse Z72.0 ; Rheumatoid arthritis involving multiple sites with positive rheumatoid factor M05.79 and Hyperlipemia E78.5 [place] [id number] [place] [address] Feb, [facility] [id number] [place] [id number] Jan, [place] [id number] [place] [address] Jan, Chronic pain G89.29 [facility] [address] [id number] Jan, Dental examination Z01.20 [facility] [address] [place] [id number] [place] [address] Jan, Back pain of lumbar region with sciatica M54.40 [facility] [address] [place] [id number] [place] [address] 15 Jan, 2017 Acute bacterial conjunctivitis of both eyes H10.33 [place] [id number] [place] [address] 02 Jan, 2017 Chronic pain G89.29 [place] [id number] [place] [address] Dec, Type 2 diabetes mellitus with diabetic neuropathy, unspecified E11.40 ; Hypertension I10 ; Hyperlipemia E78.5 ; Gastro-esophageal reflux disease without esophagitis K21.9 ; Anxiety associated with depression F41.8 ; Allergic rhinitis J30.9 ; Neuropathy G62.9 and Dependence on nocturnal oxygen therapy Z99.81 [place] [address] [address] 12 Dec, 2016 [place] [address] [address] 12 Dec, 2016 [place] [address] [address] 09 Dec, 2016 Encounter for immunization Z23 [place] [address] [address] 05 Dec, 2016 Type 2 diabetes mellitus with diabetic neuropathy, unspecified E11.40 and Chronic pain G89.29 [place] [address] [address] 11 Nov, 2016 Gastro-esophageal reflux disease without esophagitis K21.9 [place] [address] [address] 11 Nov, 2016 Peripheral edema R60.9 and Chest pain in adult R07.9 [place] [address] [address] 07 Nov, 2016 Chronic pain G89.29 [place] [address] [address] 31 Oct, 2016 [place] [address] [address] Oct, [place] [address] [address] 17 Oct, 2016 Rheumatoid arthritis with rheumatoid factor of right wrist without organ or systems involvement M05.731 [place] [address] [address] 15 Oct, 2016 [facility] [id number] [place] [address] 14 Oct, 2016 Acute exacerbation of chronic obstructive pulmonary disease (COPD) J44.1 and Canker sore K12.0 [facility] [id number] [place] [address] Oct, [facility] [id number] [place] [address] Oct, [facility] [id number] [place] [address] Oct, Chronic pain G89.29 [facility] [address] [id number] Oct, Dental examination Z01.20 [facility] [id number] [place] [address] Oct, Dental examination Z01.20 and Periodontitis K05.30 [facility] [id number] [place] [id number] Oct, Dental examination Z01.20 [facility] [id number] [place] [address] Sep, Abscess L02.91 [facility] [id number] [place] [address] Sep, Dental examination Z01.20 [facility] [id number] [place] [address] Sep, [facility] [id number] [place] [id number] Sep, Dental examination Z01.20 and Dental caries K02.9 [facility] [id number] [place] [address] Sep, Primary insomnia F51.01 and Anxiety associated with depression F41.8 [place] [id number] [place] [address] Sep, Rheumatoid arthritis with rheumatoid factor of right wrist without organ or systems involvement M05.731 [place] [id number] [place] [address] Sep, Chronic pain G89.29 [place] [id number] [place] [address] Sep, Type 2 diabetes mellitus with diabetic neuropathy, unspecified E11.40 ; Emphysema, unspecified J43.9 ; Gastro-esophageal reflux disease without esophagitis K21.9 ; Hypertension I10 ; Hyperlipemia E78.5 ; Anxiety associated with depression F41.8 ; Chronic pain G89.29 ; Vitamin D deficiency E55.9 and Primary insomnia F51.01 [place] [id number] [place] [address] 16 Aug, 2016 Anxiety associated with depression F41.8 [place] [address] [address] Aug, Chronic pain G89.29 and Neuropathy G62.[address] [address] Aug, Type 2 diabetes mellitus with diabetic neuropathy, unspecified E11.40 ; Rheumatoid arthritis involving multiple sites with positive rheumatoid factor M05.79 ; Vitamin D deficiency E55.9 ; Anxiety associated with depression F41.8 and Primary insomnia F51.01 [place] [id number] [place] [address] July, Emphysema, unspecified J43.9 [place] [id number] [place] [address] July, Allergic rhinitis J30.9 [place] [address] [address] July, Allergic rhinitis J30.9 ; Emphysema, unspecified J43.9 and Rheumatoid arthritis with rheumatoid factor of right wrist without organ or systems involvement M05.731 [place] [id number] [place] [address] July, Neuropathy G62.9 and Chronic pain G89.29 [place] [address] [address] July, Rheumatoid arthritis involving multiple sites with positive rheumatoid factor M05.79 [place] [id number] [place] [address] Jun, [place] [id number] [place] [address] Jun, Neuropathy G62.9 and Chronic pain G89.29 [place] [id number] [place] [address] May, Neuropathy G62.9 and Chronic pain G89.29 [place] [id number] [place] [address] May, [place] [id number] [place] [address] May, [place] [id number] [place] [address] May, Type 2 diabetes mellitus with diabetic [...] system involvement with positive rheumatoid factor M05.732 [place] [address] [place] [address] Apr, Chronic pain G89.29 [place] [id number] [place] [address] Mar, Gastro-esophageal reflux disease without esophagitis K21.9 [place] [id number] [place] [address] Mar, [place] [id number] [place] [address] Mar, Rheumatoid arthritis with rheumatoid factor of right wrist without organ or systems involvement M05.731 [place] [id number] [place] [address] Mar, Chronic pain G89.29 [place] [id number] [place] [address] Feb, Hyperlipemia E78.5 [place] [address] [address] Feb, Abnormal breath sounds R06.89 ; COPD with exacerbation J44.1 and Fatigue, unspecified type R53.83 [place] [id number] [place] [address] Feb, Neuropathy G62.9 ; Abnormal lung sounds R09.89 and Bronchitis J40 [facility] [id number] [place] [address] Feb, Bronchitis J40 [place] [id number] [place] [address] Feb, Chronic pain G89.29 [place] [id number] [place] [address] Jan, Type 2 diabetes mellitus with diabetic neuropathy, unspecified E11.40 ; Rheumatoid arthritis with rheumatoid factor of right wrist without organ or systems involvement M05.731 and Hyperlipemia E78.5 [place] [id number] [place] [address] Jan, Rheumatoid arthritis with rheumatoid factor of right wrist without organ or systems involvement M05.731 [place] [id number] [place] [address] Jan, De Quervain's disease (radial styloid tenosynovitis) M65.4 ; Closed nondisplaced fracture of scaphoid of left wrist, unspecified portion of scaphoid, initial encounter S62.002A and Peripheral tear of medial meniscus of left knee, unspecified whether old or current tear, initial encounter S83.222A [place] [address] [address] Jan, Hypertension I10 ; Type 2 diabetes mellitus with diabetic neuropathy, unspecified E11.40 ; Hyperlipemia E78.5 ; Allergic rhinitis J30.9 ; Neuropathy G62.9 ; Rheumatoid arthritis with rheumatoid factor of right wrist without organ or systems involvement M05.731 ; Acute non-recurrent maxillary sinusitis J01.00 and Chronic pain G89.29 [place] [address] [address] Dec, [place] [address] [address] Dec, [place] [address] [address] Dec, Type 2 diabetes mellitus with diabetic neuropathy, unspecified E11.40 ; Emphysema, unspecified J43.9 ; Gastro-esophageal reflux disease without esophagitis K21.9 ; Hypertension I10 ; Hyperlipemia E78.5 ; Rheumatoid arthritis with rheumatoid factor of right wrist without organ or systems involvement M05.731 ; Elevated white blood cell count, unspecified D72.829 ; Acute non- recurrent frontal sinusitis J01.10 and Chronic pain G89.29 [place] [id number] [place] [address] Nov, [place] [address] [address] Nov, Elevated white blood cell count, unspecified D72.829 ; Encounter for immunization Z23 ; Rheumatoid arthritis with rheumatoid factor of right wrist without organ or systems involvement M05.731 ; Injury of left hand S69.92XA ; Pain in left knee M25.562 and Other chronic pain G89.29 [place] [id number] [place] [address] Nov, [place] [address] [address] Nov, [place] [id number] [place] [address] Oct, [place] [id number] [place] [address] Oct, Hyperlipemia E78.5 [place] [id number] [place] [address] Oct, [place] [id number] [place] [address] Oct, Type 2 diabetes mellitus with diabetic neuropathy, unspecified E11.40 ; Neuropathy G62.9 ; Hypertension I10 ; Chronic pain G89.29 and Hyperlipemia E78.5 [place] [id number] [place] [address] Oct, Emphysema, unspecified J43.9 and Rheumatoid arthritis of left wrist without organ or system involvement with positive rheumatoid factor M05.732 [place] [id number] [place] [address] Sep, Chronic pain syndrome G89.4 [place] [id number] [place] [address] Sep, [place] [id number] [place] [address] Sep, [place] [id number] [place] [address] Sep, Closed nondisplaced fracture of scaphoid of left wrist, unspecified portion of scaphoid, initial encounter S62.002A [place] [id number] [place] [address] Sep, Type 2 diabetes mellitus with diabetic neuropathy, unspecified E11.40 ; Hypertension I10 ; Hyperlipemia E78.5 and Acute non-recurrent maxillary sinusitis J01.00 [place] [id number] [place] [address] Sep, [facility] [address] [address] Sep, [facility] [address] [address] Sep, [facility] [address] [place] [address] Sep, [facility] [id number] [place] [address] Aug, Epigastric pain R10.13 and Right upper quadrant pain R10.11 [place] [id number] [place] [address] Aug, Closed nondisplaced fracture of scaphoid of left wrist, unspecified portion of scaphoid, initial encounter S62.002A [place] [address] [place] [id number] [place] [address] Aug, [place] [id number] [place] [address] Aug, [facility] [id number] [place] [address] Aug, Shortness of breath R06.02 ; Epigastric pain R10.13 and Injury of left lower arm, initial encounter S59.912A [place] [address], [place] [address] Aug, Coronary artery disease involving [place] heart with angina pectoris, unspecified vessel or lesion type I25.119 ; Pulmonary emphysema, unspecified emphysema type J43.9 and Snoring R06.83 [place] [address] [address] Aug, [facility] [address] [address] [address] Aug, Emphysema, unspecified J43.9 ; Atherosclerotic heart disease of [place] coronary artery 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.10 and Hypertension I10 [place] [address] [place] [address] July, [place] [address] [place] [id number] [place] [address] July, Closed nondisplaced fracture of scaphoid of left wrist, unspecified portion of scaphoid, initial encounter S62.002A [place] [address] [place] [id number] [place] [address] July, [place] [address] [place] [id number] [place] [address] July, Type 2 diabetes mellitus with diabetic neuropathy, unspecified E11.40 ; Emphysema, unspecified J43.9 ; Atherosclerotic heart disease of [place] coronary artery 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.10 ; [...] agents L24.89 and Hospital discharge follow-up Z09 [place] [address] [place] [address] July, [place] [address] [place] [id number] [place] [address] July, Type 2 diabetes mellitus with diabetic neuropathy, unspecified E11.40 [place] [address] [place] [address] July, Type 2 diabetes mellitus with diabetic neuropathy, unspecified E11.40 and Rheumatoid arthritis of left wrist without organ or system involvement with positive rheumatoid factor M05.732 [place] [address] [place] [address] July, [place] [address] [place] [id number] [place] [address] July, [facility] [address], [place] [address] Jun, [facility] [address] [place] [id number] [place] [address] Jun, [facility] [address] [place] [id number] [place] [address] Jun, 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 [facility] [address] [place] [id number] [place] [address] Jun, [facility] [address] [place] [id number] [place] [address] Jun, 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 [place] [address] [place] [id number] [place] [address] Jun, [place] [address] [place] [id number] [place] [address] Jun, [facility] [address] [place] [id number] [place] [address] Jun, Encounter for PPD test Z11.1 ; Rheumatoid arthritis with rheumatoid factor of right wrist without organ or systems involvement M05.731 and Rheumatoid arthritis of left wrist without organ or system involvement with positive rheumatoid factor M05.732 [place] [address] [place] [address] Jun, Type 2 diabetes mellitus with diabetic neuropathy, unspecified E11.40 [place] [address] [place] [address] May, Type 2 diabetes mellitus with diabetic neuropathy, unspecified E11.40 ; Emphysema, unspecified J43.9 ; Rheumatoid arthritis with rheumatoid factor of right wrist without organ or systems involvement M05.731 ; Rheumatoid arthritis of left wrist without organ or system involvement with positive rheumatoid factor M05.732 and Chronic pain G89.29 [place] [address] [place] [address] May, [place] [address] [place] [id number] [place] [address] May, Swelling of hand joint M25.449 ; Ankle swelling M25.473 and Joint pain M25.50 [place] [address] [place] [id number] [place] [address] May, Emphysema, unspecified J43.9 [place] [address] [address] May, Hypertension I10 and Gastroenteritis K52.9 [place] [address] [place] [id number] [place] [address] Apr, [place] [address] [address] Apr, [place] [address] [address] Apr, [place] [address] [address] Apr, Type 2 diabetes mellitus with diabetic neuropathy, unspecified E11.40 ; Emphysema, unspecified J43.9 ; Atherosclerotic heart disease of [place] coronary artery 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.10 ; Migraine without aura, not intractable, with status migrainosus G43.001 ; Gastro-esophageal reflux disease without esophagitis K21.9 ; CAD (coronary artery disease) I25.10 ; Hypertension I10 ; Hyperlipemia E78.5 ; Allergic rhinitis J30.9 ; Neuropathy G62.9 ; Anxiety associated with depression F41.8 and Injury of left hand S69.92XA [place] [address] [place] [id number] [place] [address] Apr, [place] [address] [place] [id number] [place] [address] Apr, [place] [address] [place] [id number] [place] [address] Apr, Type 2 diabetes mellitus with diabetic neuropathy, unspecified E11.40 ; Emphysema, unspecified J43.9 ; Essential (primary) hypertension I10 ; Atherosclerotic heart disease of [place] coronary artery 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.10 ; Gastro-esophageal reflux disease without esophagitis K21.9 ; CAD (coronary artery disease) I25.10 ; Hyperlipemia E78.5 ; Hypertension I10 ; History of solitary pulmonary nodule Z87.898 ; Allergic rhinitis J30.9 ; Chronic pain G89.29 and Depression with anxiety F41.[address] [address] Mar, [address] [address] Mar, Allergic rhinitis J30.9 ; URI (upper respiratory infection) J06.9 and Other viral agents as the cause of diseases classified elsewhere B97.89 [facility] [address] [place] [address] Feb, Acute nasopharyngitis [common cold] J00 and Acute diarrhea R19.[address] [address] Feb, Depression F32.[address] [address] Jan, Otitis media, right H66.[address] [address] Jan, [address] [address] Jan, Type 2 diabetes mellitus with diabetic neuropathy, unspecified E11.[address] [address] Jan, [address] [address] Jan, Hyperlipemia E78.[address] [address] Jan, Type 2 diabetes mellitus with diabetic neuropathy, unspecified E11.40 ; Emphysema, unspecified J43.9 ; CAD (coronary artery disease) I25.10 and Hyperlipemia E78.[address] [address] Dec, Allergic rhinitis J30.9 and Fungal infection B49 [address] [address] Dec, [address] [address] Dec, [address] [address] Dec, Chest pain R07.9 ; CAD (coronary artery disease) I25.10 ; Hypertension I10 and Hyperlipemia E78.[address] [address] Dec, Pain in thoracic spine M54.6 ; Gastro-esophageal reflux disease without esophagitis K21.9 ; Emphysema, unspecified J43.9 and Migraine without aura, not intractable, with status migrainosus G43.[address] [address] Dec, [address] [address] Nov, Influenza vaccine administered V04.[address] [address] Nov, [address] [address] Sep, [address] [address] Sep, [address] [address] Sep, CAD (coronary artery disease) 414.00 and Diabetes type 2, uncontrolled 250.02 [facility] [address] [facility] [id number] [place] [address] Sep, CAD (coronary artery disease) 414.00 ; Diabetes type 2, uncontrolled 250.02 and Migraine 346.90 IMMUNIZATIONS No Known Immunizations SOCIAL HISTORY Never Assessed REASON FOR VISIT Diabetes-awoods PLAN OF CARE Activity Details Follow Up 3 Months, prn Reason:CHM/DM VITAL SIGNS Height 66 in 2017-09-01 Weight 184.7 lbs 2017-09-01 Temperature 98.3 degrees Fahrenheit 2017-09-01 Heart Rate 86 bpm 2017-09-01 Respiratory Rate 20 2017-09-01 Oximetry on room air:94 % 2017-09-01 BMI 29.81 kg/m2 2017-09-01 Blood pressure systolic 102 mmHg 2017-09-01 Blood pressure diastolic 70 mmHg 2017-09-01 MEDICATIONS Medication Instructions Dosage Frequency Start Date End Date Duration Status Cetirizine HCl 10 Orally Once a day TAKE 1 TABLET BY MOUTH DAILY 24h Active Albuterol Sulfate (2.5 MG/3ML) 0.083% Inhalation Three times a day 3 ml 8h Active Atorvastatin Calcium 10 MG TAKE ONE TABLET BY MOUTH ONCE DAILY Active Glucocard Expression Test - In Vitro 4 times a 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 test blood sugar May, Active Lyrica 100 mg Orally Three times a day 1 capsule 8h Dec, Active Baclofen 10 MG TAKE ONE TABLET BY MOUTH THREE TIMES DAILY WITH FOOD OR MILK Active Nicotine 21 MG/24HR Transdermal Once a day 1 patch to skin 24h Feb, Active Citalopram Hydrobromide 20 MG TAKE ONE TABLET BY MOUTH ONCE DAILY Active Aspirin Adult Low Strength 81 MG Orally Once a day 1 tablet 24h Active Qnasl 80 MCG/ACT USE TWO SPRAYS IN EACH NOSTRIL ONCE DAILY 30 Active Fish Oil 1200 MG Orally Once a day 1 capsule 24h Active Depend Adjustable Underwear Lg 1 as directed 3 times a day use one depends three times per day as needed 8h May, Active Trazodone HCl 50 MG TAKE ONE TABLET BY MOUTH ONCE DAILY AT BEDTIME NEEDED Active Victoza 18 MG/3ML INJECT 1.8 MG SUBCUTANEOUSLY ONCE DAILY Active Symbicort 160-4.5 MCG/ACT INHALE 2 PUFFS BY MOUTH TWICE DAILY. (NEED TO MAKE AN APPOINTMENT FOR REFILLS) Active Easy Touch Pen [place] 32G X 4 MM sq 4 times a day as directed 6h Sep, Active Folic Acid 1 MG TAKE ONE TABLET BY MOUTH ONCE DAILY 90 Active Methotrexate 2.5 MG TAKE 10 TABLETS BY MOUTH ONCE WEEKLY 84 Active Lisinopril 20 MG TAKE ONE TABLET BY MOUTH ONCE DAILY Active Sucralfate 1 GM TAKE ONE TABLET BY MOUTH EVERY 6 HOURS Active Quad Cane as directed May, Active Aleve 220 MG Orally every 12 hrs 1 tablet 12h Active HydrOXYzine HCl 25 MG Orally every 8 hrs 1 tablet as needed 8h 30 Active Metoprolol Tartrate 25 MG TAKE ONE TABLET BY MOUTH TWICE DAILY Active Ventolin HFA 108 (90 Base) MCG/ACT INHALE TWO PUFFS BY MOUTH EVERY 4 HOURS NEEDED (MUST HAVE APPOINTMENT FOR REFILL) Active Hydrocodone-Acetaminophen 7.5-325 MG Orally every 6 hours as needed 1 tablet as needed Aug, Sep, 28 days Active Protonix 40 mg Orally Once a day 1 tablet 24h Dec, Active Blood Glucose Monitor System w/Device as directed July, Active Metformin HCl 1000 MG TAKE ONE TABLET BY MOUTH TWICE DAILY WITH MEALS Active Oxygen Active RESULTS No Results PROCEDURES Procedure Date Ordered Result Body Site GLYCATED HEMOGLOBIN TEST September 01, 2017 MICROALBUMIN, SEMIQUANT September 01, 2017 LAB NOT BILLED BY [facility] September 01, 2017 INSTRUCTIONS MEDICATIONS ADMINISTERED No Known Medications MEDICAL (GENERAL) HISTORY Type Description Date Medical History COPD Medical History Type 2 Diabetes Medical History HTN Medical History Cardiac stents July 2010 post [place]-stent to LAD Medical History Rheumatoid Arthritis Medical History 04/2016---Echo- 60%//mild hypertrophy at the base of the septum, mild mitral regurg/ mild tricuspid regurg. PAP about 10-15 mmHg Medical History 04/2016------Normal Lexiscan Medical History Elevated white blood cell count, unspecified Medical History Atherosclerotic heart disease of [place] coronary artery without angina pectoris Medical History [...]
--- OUTSIDE RECORDS SUMMARY | 2018-08-23 16:56 | XMS REPORT ---
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 Name Role Phone DELEONCLAU Moran Unavailable PROBLEMS Type Condition ICD9-CM Code PLK51-AN Code Onset Dates Condition Status SNOMED Code Problem Dependence on nocturnal oxygen therapy Z99.81 Active 91005664722690 Problem Other hammer toe(s) (acquired), left foot M20.42 Active 67813348 Problem Neuropathy G62.9 Active 719036879 Problem Elevated white blood cell count, unspecified D72.829 Active 588156806 Problem Hypertension I10 Active 14959569 Problem Other chronic pain G89.29 Active 18523357 Problem Hyperlipemia E78.5 Active 97262328 Problem Vitamin D deficiency E55.9 Active 02149537 Problem Tobacco abuse Z72.0 Active 673806917 Problem Other hammer toe(s) (acquired), right foot M20.41 Active 349129521 Problem 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 Active 229541607471411 Problem Hammer toe of left foot M20.42 Active 712080714 Problem Type 2 diabetes mellitus with diabetic neuropathy, unspecified E11.40 Active 59113883 Problem Allergic rhinitis J30.9 Active 10633440 Problem Gastro-esophageal reflux disease without esophagitis K21.9 Active 483888495 Problem Emphysema, unspecified J43.9 Active 41803396 Problem OAB (overactive bladder) N32.81 Active 059207646 Problem Rheumatoid arthritis involving multiple sites with positive rheumatoid factor M05.79 Active 824701726 Problem Anxiety associated with depression F41.8 Active 530013841 Problem Primary insomnia F51.01 Active 2211767 Problem Chronic pain G89.29 Active 36837868 Problem Periodontitis K05.30 Active 11313526 ALLERGIES No Information ENCOUNTERS Encounter Location Date Diagnosis [facility] [address] [facility] [id number] [address] Dec, [facility] [id number] [place] [address] Oct, [facility] [id number] [place] [address] Oct, Elevated white blood cell count, unspecified D72.829 [place] [id number] [place] [address] Oct, Elevated white blood cell count, unspecified D72.829 [place] [id number] [place] [address] Oct, Chronic pain G89.29 [place] [id number] [place] [address] Oct, [place] [id number] [place] [address] Oct, [place] [id number] [place] [address] Oct, Orthostatic hypotension I95.1 ; Dizziness R42 and Neuropathy G62.9 [facility] [id number] [place] [address] Oct, Dizziness R42 ; Low back pain M54.5 ; Other chronic pain G89.29 ; Nausea R11.0 and Orthostatic hypotension I95.1 [place] [id number] [place] [address] Sep, Rheumatoid arthritis involving multiple sites with positive rheumatoid factor M05.79 and Tobacco abuse Z72.0 [place] [id number] [place] [address] Sep, Chronic pain G89.29 [place] [address] [place] [address] Aug, Type 2 diabetes mellitus with diabetic neuropathy, unspecified E11.40 ; Hypertension I10 ; Hyperlipemia E78.5 ; Gastro-esophageal reflux disease without esophagitis K21.9 ; Emphysema, unspecified J43.9 ; Anxiety associated with depression F41.8 ; Vitamin D deficiency E55.9 ; Chronic pain G89.29 ; Tobacco abuse Z72.0 ; Overweight (BMI 25.0-29.9) E66.3 ; 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 ; OAB (overactive bladder) N32.81 and Primary insomnia F51.01 [place] [address] [address] July, [place] [address] [address] July, [place] [address] [address] July, Chronic pain G89.[address] [address] July, [place] [address] [address] July, Onychomycosis B35.1 ; Hammer toe of left foot M20.42 and Type 2 diabetes mellitus with diabetic neuropathy, unspecified E11.40 [place] [place] [id number] [place] [address] July, [place] [address] [address] July, Chronic pain G89.29 and Neuropathy G62.9 [place] [address] [address] July, [place] [address] [address] July, [place] [address] [address] Jun, [place] [address] [address] Jun, Chronic pain G89.29 [facility] [address] [address] Jun, [facility] [address] [place] [address] Jun, [facility] [address] [address] Jun, Visit for TB skin test Z11.1 [facility] [address] [place] [address] 16 Jun, 2017 [facility] [id number] [place] [address] Jun, [facility] [id number] [place] [address] Jun, Tobacco abuse Z72.0 and Rheumatoid arthritis involving multiple sites with positive rheumatoid factor M05.79 [facility] [address] [place] [address] Jun, Anxiety F41.9 ; Acute non-recurrent maxillary sinusitis J01.00 and Chronic pain G89.29 [facility] [address] [address] Jun, [facility] [address] [address] May, Rheumatoid arthritis involving multiple sites with positive rheumatoid factor M05.79 [facility] [address] [address] May, Chronic pain G89.29 [facility] [address] [address] 14 May, 2017 [facility] [address] [address] May, [facility] [address] [address] May, [place] [address] [place] [address] May, Type 2 diabetes mellitus with diabetic neuropathy, unspecified E11.40 [place] [id number] [place] [address] May, Type 2 diabetes mellitus with diabetic neuropathy, unspecified E11.40 ; Emphysema, unspecified J43.9 ; Hypertension I10 ; Hyperlipemia E78.5 ; Vitamin D deficiency E55.9 ; Right medial knee pain M25.561 ; Controlled substance agreement signed Z79.899 ; Chronic pain G89.29 ; Allergic rhinitis J30.9 ; Anxiety associated with depression F41.8 ; Neuropathy G62.9 and Gastro- esophageal reflux disease without esophagitis K21.9 [place] [address] [place] [address] Apr, Chronic pain G89.29 [place] [id number] [place] [address] Apr, Other hammer toe(s) (acquired), left foot M20.42 ; Other hammer toe(s) (acquired), right foot M20.41 ; Type 2 diabetes mellitus with diabetic neuropathy, unspecified E11.40 and Onychomycosis B35.1 [place] [address] [place] [address] Apr, Gastro-esophageal reflux disease without esophagitis K21.9 [facility] [id number] [place] [address] Apr, Controlled substance agreement signed Z79.899 [place] [id number] [place] [address] Mar, Chronic pain G89.29 [place] [id number] [place] [address] Mar, Emphysema, unspecified J43.9 and Type 2 diabetes mellitus with diabetic neuropathy, unspecified E11.40 [facility] [id number] [place] [address] Mar, Dysuria R30.0 ; Vaginal candidiasis B37.3 and Acute nonintractable headache, unspecified headache type R51 [facility] [id number] [place] [address] Feb, Neuropathy G62.9 and Chronic pain G89.29 [place] [address] [address] Feb, Gastro-esophageal reflux disease without esophagitis K21.9 [place] [address] [address] Feb, [place] [id number] [place] [address] Feb, Rheumatoid arthritis involving multiple sites with positive rheumatoid factor M05.79 and COPD with acute exacerbation J44.[address] [address] Feb, Vaginal odor N89.8 ; Vaginal irritation N89.8 ; Candidal dermatitis B37.2 and Screening breast examination Z12.31 [place] [id number] [place] [address] Feb, [facility] [id number] [place] [address] Feb, [place] [id number] [place] [address] Feb, [place] [id number] [place] [address] Feb, COPD with exacerbation J44.1 ; Tobacco abuse counseling Z71.6 ; Tobacco abuse Z72.0 ; Rheumatoid arthritis involving multiple sites with positive rheumatoid factor M05.79 and Hyperlipemia E78.5 [facility] [id number] [place] [address] Feb, [place] [address] [place] [id number] Jan, [facility] [address] [address] Jan, Chronic pain G89.29 [facility] [id number] [place] [id number] Jan, Dental examination Z01.20 [facility] [address] [address] Jan, Back pain of lumbar region with sciatica M54.40 [facility] [address] [address] 15 Jan, 2017 Acute bacterial conjunctivitis of both eyes H10.33 [place] [address] [address] 02 Jan, 2017 Chronic pain G89.29 [place] [address] [address] Dec, Type 2 diabetes mellitus with diabetic neuropathy, unspecified E11.40 ; Hypertension I10 ; Hyperlipemia E78.5 ; Gastro-esophageal reflux disease without esophagitis K21.9 ; Anxiety associated with depression F41.8 ; Allergic rhinitis J30.9 ; Neuropathy G62.9 and Dependence on nocturnal oxygen therapy Z99.81 [place] [id number] [place] [address] Dec, [place] [address] [address] Dec, [place] [id number] [place] [address] Dec, Encounter for immunization Z23 [place] [address] [address] 05 Dec, 2016 Type 2 diabetes mellitus with diabetic neuropathy, unspecified E11.40 and Chronic pain G89.29 [place] [address] [address] 11 Nov, 2016 Gastro-esophageal reflux disease without esophagitis K21.9 [facility] [id number] [place] [address] 11 Nov, 2016 Peripheral edema R60.9 and Chest pain in adult R07.9 [facility] [id number] [place] [address] 07 Nov, 2016 Chronic pain G89.29 [facility] [address] [address] 31 Oct, 2016 [facility] [address] [address] 30 Oct, 2016 [facility] [address] [address] 17 Oct, 2016 Rheumatoid arthritis with rheumatoid factor of right wrist without organ or systems involvement M05.731 [place] [address] [address] 15 Oct, 2016 [facility] [id number] [place] [address] 14 Oct, 2016 Acute exacerbation of chronic obstructive pulmonary disease (COPD) J44.1 and Canker sore K12.0 [facility] [id number] [place] [address] 14 Oct, 2016 [facility] [id number] [place] [address] Oct, [facility] [id number] [place] [address] 09 Oct, 2016 Chronic pain G89.29 [facility] [address] [id number] Oct, Dental examination Z01.20 [facility] [id number] [place] [address] 08 Oct, 2016 Dental examination Z01.20 and Periodontitis K05.30 [facility] [address] [id number] Oct, Dental examination Z01.20 [facility] [address] [place] [address] Sep, Abscess L02.91 [facility] [id number] [place] [address] Sep, Dental examination Z01.20 [facility] [id number] [place] [address] Sep, [facility] [id number] [place] [id number] Sep, Dental examination Z01.20 and Dental caries K02.9 [facility] [id number] [place] [address] Sep, Primary insomnia F51.01 and Anxiety associated with depression F41.8 [place] [id number] [place] [address] Sep, Rheumatoid arthritis with rheumatoid factor of right wrist without organ or systems involvement M05.731 [place] [id number] [place] [address] Sep, Chronic pain G89.29 [place] [id number] [place] [address] Sep, Type 2 diabetes mellitus with diabetic neuropathy, unspecified E11.40 ; Emphysema, unspecified J43.9 ; Gastro-esophageal reflux disease without esophagitis K21.9 ; Hypertension I10 ; Hyperlipemia E78.5 ; Anxiety associated with depression F41.8 ; Chronic pain G89.29 ; Vitamin D deficiency E55.9 and Primary insomnia F51.01 [place] [id number] [place] [address] 16 Aug, 2016 Anxiety associated with depression F41.8 [place] [id number] [place] [address] Aug, Chronic pain G89.29 and Neuropathy G62.9 [place] [id number] [place] [address] Aug, Type 2 diabetes mellitus with diabetic neuropathy, unspecified E11.40 ; Rheumatoid arthritis involving multiple sites with positive rheumatoid factor M05.79 ; Vitamin D deficiency E55.9 ; Anxiety associated with depression F41.8 and Primary insomnia F51.01 [place] [id number] [place] [address] July, Emphysema, unspecified J43.9 [place] [id number] [place] [address] July, Allergic rhinitis J30.9 [place] [id number] [place] [address] July, Allergic rhinitis J30.9 ; Emphysema, unspecified J43.9 and Rheumatoid arthritis with rheumatoid factor of right wrist without organ or systems involvement M05.731 [place] [id number] [place] [address] July, Neuropathy G62.9 and Chronic pain G89.29 [place] [id number] [place] [address] July, Rheumatoid arthritis involving multiple sites with positive rheumatoid factor M05.79 [place] [id number] [place] [address] Jun, [place] [id number] [place] [address] Jun, Neuropathy G62.9 and Chronic pain G89.29 [place] [id number] [place] [address] May, Neuropathy G62.9 and Chronic pain G89.29 [place] [id number] [place] [address] May, [place] [id number] [place] [address] May, [place] [id number] [place] [address] May, Type 2 diabetes mellitus with diabetic [...] system involvement with positive rheumatoid factor M05.732 [place] [address] [address] Apr, Chronic pain G89.[address] [address] Mar, Gastro-esophageal reflux disease without esophagitis K21.9 [place] [address] [address] Mar, [address] [address] Mar, Rheumatoid arthritis with rheumatoid factor of right wrist without organ or systems involvement M05.[address] [address] Mar, Chronic pain G89.29 [place] [address] [address] Feb, Hyperlipemia E78.[address] [address] Feb, Abnormal breath sounds R06.89 ; COPD with exacerbation J44.1 and Fatigue, unspecified type R53.[address] [address] Feb, Neuropathy G62.9 ; Abnormal lung sounds R09.89 and Bronchitis J40 [facility] [address] [address] Feb, Bronchitis J40 [facility] [address] [place] [address] Feb, Chronic pain G89.29 [place] [id number] [place] [address] Jan, Type 2 diabetes mellitus with diabetic neuropathy, unspecified E11.40 ; Rheumatoid arthritis with rheumatoid factor of right wrist without organ or systems involvement M05.731 and Hyperlipemia E78.5 [place] [id number] [place] [address] Jan, Rheumatoid arthritis with rheumatoid factor of right wrist without organ or systems involvement M05.731 [place] [id number] [place] [address] Jan, De Quervain's disease (radial styloid tenosynovitis) M65.4 ; Closed nondisplaced fracture of scaphoid of left wrist, unspecified portion of scaphoid, initial encounter S62.002A and Peripheral tear of medial meniscus of left knee, unspecified whether old or current tear, initial encounter S83.222A [place] [address] [place] [address] Jan, Hypertension I10 ; Type 2 diabetes mellitus with diabetic neuropathy, unspecified E11.40 ; Hyperlipemia E78.5 ; Allergic rhinitis J30.9 ; Neuropathy G62.9 ; Rheumatoid arthritis with rheumatoid factor of right wrist without organ or systems involvement M05.731 ; Acute non-recurrent maxillary sinusitis J01.00 and Chronic pain G89.29 [place] [address] [place] [address] Dec, [place] [address] [place] [address] Dec, [place] [id number] [place] [address] Dec, Type 2 diabetes mellitus with diabetic neuropathy, unspecified E11.40 ; Emphysema, unspecified J43.9 ; Gastro-esophageal reflux disease without esophagitis K21.9 ; Hypertension I10 ; Hyperlipemia E78.5 ; Rheumatoid arthritis with rheumatoid factor of right wrist without organ or systems involvement M05.731 ; Elevated white blood cell count, unspecified D72.829 ; Acute non- recurrent frontal sinusitis J01.10 and Chronic pain G89.29 [place] [id number] [place] [address] Nov, [place] [id number] [place] [address] Nov, Elevated white blood cell count, unspecified D72.829 ; Encounter for immunization Z23 ; Rheumatoid arthritis with rheumatoid factor of right wrist without organ or systems involvement M05.731 ; Injury of left hand S69.92XA ; Pain in left knee M25.562 and Other chronic pain G89.29 [place] [id number] [place] [address] Nov, [place] [id number] [place] [address] Nov, [place] [address] [place] [address] Oct, [place] [id number] [place] [address] Oct, Hyperlipemia E78.5 [place] [id number] [place] [address] Oct, [place] [id number] [place] [address] Oct, Type 2 diabetes mellitus with diabetic neuropathy, unspecified E11.40 ; Neuropathy G62.9 ; Hypertension I10 ; Chronic pain G89.29 and Hyperlipemia E78.5 [place] [id number] [place] [address] Oct, Emphysema, unspecified J43.9 and Rheumatoid arthritis of left wrist without organ or system involvement with positive rheumatoid factor M05.732 [place] [id number] [place] [address] Sep, Chronic pain syndrome G89.4 [place] [id number] [place] [address] Sep, [place] [id number] [place] [address] Sep, [place] [id number] [place] [address] Sep, Closed nondisplaced fracture of scaphoid of left wrist, unspecified portion of scaphoid, initial encounter S62.002A [place] [id number] [place] [address] Sep, Type 2 diabetes mellitus with diabetic neuropathy, unspecified E11.40 ; Hypertension I10 ; Hyperlipemia E78.5 and Acute non-recurrent maxillary sinusitis J01.00 [place] [id number] [place] [address] Sep, [place] [id number] [place] [address] Sep, [place] [id number] [place] [address] Sep, [place] [id number] [place] [address] Sep, [place] [id number] [place] [address] Aug, Epigastric pain R10.13 and Right upper quadrant pain R10.11 [place] [id number] [place] [address] Aug, Closed nondisplaced fracture of scaphoid of left wrist, unspecified portion of scaphoid, initial encounter S62.002A [place] [address] [place] [address] Aug, [place] [id number] [place] [address] Aug, [facility] [id number] [place] [address] Aug, Shortness of breath R06.02 ; Epigastric pain R10.13 and Injury of left lower arm, initial encounter S59.912A [place] [address] [address] Aug, Coronary artery disease involving coquille heart with angina pectoris, unspecified vessel or lesion type I25.119 ; Pulmonary emphysema, unspecified emphysema type J43.9 and Snoring R06.83 [place] [address] [address] Aug, [place] [id number] [place] [address] Aug, Emphysema, unspecified J43.9 ; 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 and Hypertension I10 [place] [address] [address] [place] [id number] [place] [id number] July, [place] [address] [address] [place] [id number] [place] [id number] July, Closed nondisplaced fracture of scaphoid of left wrist, unspecified portion of scaphoid, initial encounter S62.002A [place] [address] [place] [id number] [place] [id number] July, [place] [address] [place] [id number] [place] [id number] July, Type 2 diabetes mellitus with diabetic neuropathy, unspecified E11.40 ; Emphysema, unspecified J43.9 ; 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 ; [...] agents L24.89 [facility] Hospital discharge follow-up Z09 [place] [id number] [place] [id number] July, [place] [id number] [place] [address] July, Type 2 diabetes mellitus with diabetic neuropathy, unspecified E11.40 [facility] [place] [id number] [place] [id number] July, Type 2 diabetes mellitus with diabetic neuropathy, unspecified E11.40 and Rheumatoid arthritis of left wrist without organ or system involvement with positive rheumatoid factor M05.732 [place] [id number] [place] [address] July, [place] [id number] [place] [address] July, [place] [id number] [place] [address] Jun, [place] [id number] [place] [address] Jun, [place] [id number] [place] [address] Jun, 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 [place] [id number] [place] [address] Jun, [place] [id number] [place] [address] Jun, 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 [place] [id number] [place] [address] Jun, [place] [id number] [place] [address] Jun, [place] [address] [address] Jun, Encounter for PPD test Z11.1 ; Rheumatoid arthritis with rheumatoid factor of right wrist without organ or systems involvement M05.731 and Rheumatoid arthritis of left wrist without organ or system involvement with positive rheumatoid factor M05.732 [place] [id number] [place] [address] Jun, Type 2 diabetes mellitus with diabetic neuropathy, unspecified E11.40 [place] [id number] [place] [address] May, Type 2 diabetes mellitus with diabetic neuropathy, unspecified E11.40 ; Emphysema, unspecified J43.9 ; Rheumatoid arthritis with rheumatoid factor of right wrist without organ or systems involvement M05.731 ; Rheumatoid arthritis of left wrist without organ or system involvement with positive rheumatoid factor M05.732 and Chronic pain G89.29 [place] [id number] [place] [address] May, [place] [id number] [place] [address] May, Swelling of hand joint M25.449 ; Ankle swelling M25.473 and Joint pain M25.50 [place] [id number] [place] [address] May, Emphysema, unspecified J43.9 [place] [id number] [place] [address] May, Gastroenteritis K52.9 and Hypertension I10 [place] [id number] [place] [address] Apr, [place] [id number] [place] [address] Apr, [id number] [place] [address] Apr, [address] [address] Apr, Type 2 diabetes mellitus with diabetic neuropathy, unspecified E11.40 ; Emphysema, unspecified J43.9 ; 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 ; Migraine without aura, not intractable, with status migrainosus G43.001 ; Gastro-esophageal reflux disease without esophagitis K21.9 ; CAD (coronary artery disease) I25.10 ; Hypertension I10 ; Hyperlipemia E78.5 ; Allergic rhinitis J30.9 ; Neuropathy G62.9 ; Anxiety associated with depression F41.8 and Injury of left hand S69.92XA [address] [address] Apr, [address] [address] Apr, [place] [id number] [place] [address] Apr, Type 2 diabetes mellitus with diabetic neuropathy, unspecified E11.40 ; Emphysema, unspecified J43.9 ; Essential (primary) hypertension I10 ; 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 ; Gastro-esophageal reflux disease without esophagitis K21.9 ; CAD (coronary artery disease) I25.10 ; Hyperlipemia E78.5 ; Hypertension I10 ; History of solitary pulmonary nodule Z87.898 ; Allergic rhinitis J30.9 ; Chronic pain G89.29 and Depression with anxiety F41.[address] [address] Mar, [address] [address] Mar, Allergic rhinitis J30.9 ; URI (upper respiratory infection) J06.9 and Other viral agents as the cause of diseases classified elsewhere B97.89 [facility] [id number] [place] [address] Feb, Acute nasopharyngitis [common cold] J00 and Acute diarrhea R19.7 [facility] [id number] [place] [address] Feb, Depression F32.9 [place] [address] [address] Jan, Otitis media, right H66.91 [place] [id number] [place] [address] Jan, [place] [address] [address] Jan, Type 2 diabetes mellitus with diabetic neuropathy, unspecified E11.40 [place] [address] [address] Jan, [place] [id number] [place] [address] Jan, Hyperlipemia E78.5 [place] [id number] [place] [address] Jan, Type 2 diabetes mellitus with diabetic neuropathy, unspecified E11.40 ; Emphysema, unspecified J43.9 ; CAD (coronary artery disease) I25.10 and Hyperlipemia E78.5 [place] [id number] [place] [address] Dec, Allergic rhinitis J30.9 and Fungal infection B49 [place] [id number] [place] [address] Dec, [place] [address] [address] Dec, [facility] [id number] [place] [address] Dec, Chest pain R07.9 ; CAD (coronary artery disease) I25.10 ; Hypertension I10 and Hyperlipemia E78.5 [place] [id number] [place] [address] Dec, Pain in thoracic spine M54.6 ; Gastro-esophageal reflux disease without esophagitis K21.9 ; Emphysema, unspecified J43.9 and Migraine without aura, not intractable, with status migrainosus G43.001 [place] [address] [address] Dec, [place] [address] [address] Nov, Influenza vaccine administered V04.[address] [address] Nov, [place] [address] [address] Sep, [place] [address] [address] Sep, [place] [address] [address] Sep, CAD (coronary artery disease) 414.00 and Diabetes type 2, uncontrolled 250.02 [place] [id number] [place] [address] Sep, CAD (coronary artery disease) 414.00 ; Diabetes type 2, uncontrolled 250.02 and Migraine 346.90 IMMUNIZATIONS No Known Immunizations SOCIAL HISTORY Never Assessed REASON FOR VISIT MITCHELL newman PLAN OF CARE VITAL SIGNS MEDICATIONS Unknown Medications RESULTS No Results PROCEDURES No Known procedures INSTRUCTIONS MEDICATIONS ADMINISTERED No Known Medications MEDICAL (GENERAL) HISTORY Type Description Date Medical History COPD Medical History Type 2 Diabetes Medical History HTN Medical History Cardiac stents July 2010 post DE-stent to LAD Medical History Rheumatoid Arthritis Medical History 04/2016---Echo- 60%//mild hypertrophy at the base of the septum, mild mitral regurg/ mild tricuspid regurg. PAP about 10-15 mmHg Medical History 04/2016------Normal Lexiscan Medical History Elevated white blood cell count, unspecified Medical History Atherosclerotic heart disease of [place] coronary artery without angina pectoris Medical History [...]
--- OUTSIDE RECORDS SUMMARY | 2018-08-23 16:57 | XMS REPORT ---
Author Author DELEONROB MoranELE Organization [facility] Address [address] [place] [address] Care Team Providers Care Supervisor Of Instruction Name Role Phone DELEONCLAU Moran Unavailable PROBLEMS Type Condition ICD9-CM Code [id number] Code Onset Dates Condition Status SNOMED Code Problem Dependence on nocturnal oxygen therapy Z99.81 Active 75113023543830 Problem Other hammer toe(s) (acquired), left foot M20.42 Active 32211958 Problem Neuropathy G62.9 Active 496900452 Problem Elevated white blood cell count, unspecified D72.829 Active 434570904 Problem Hypertension I10 Active 96888392 Problem Other chronic pain G89.29 Active 11685521 Problem Hyperlipemia E78.5 Active 03746847 Problem Vitamin D deficiency E55.9 Active 07327269 Problem Tobacco abuse Z72.0 Active 569882223 Problem Other hammer toe(s) (acquired), right foot M20.41 Active 591295047 Problem Atherosclerotic heart disease of [place] coronary artery 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.10 Active [id number] Problem Hammer toe of left foot M20.42 Active 835808035 Problem Type 2 diabetes mellitus with diabetic neuropathy, unspecified E11.40 Active 58441463 Problem Allergic rhinitis J30.9 Active 55235138 Problem Gastro-esophageal reflux disease without esophagitis K21.9 Active 524974145 Problem Emphysema, unspecified J43.9 Active 57713632 Problem OAB (overactive bladder) N32.81 Active 789777605 Problem Rheumatoid arthritis involving multiple sites with positive rheumatoid factor M05.79 Active 633657926 Problem Anxiety associated with depression F41.8 Active 347113176 Problem Primary insomnia F51.01 Active 1259939 Problem Chronic pain G89.29 Active 35734421 Problem Periodontitis K05.30 Active 55509000 ALLERGIES No Information ENCOUNTERS Encounter Location Date Diagnosis [facility] [address] [facility] [id number] [address] Dec, [facility] [id number] [place] [address] Oct, [facility] [id number] [place] [address] Oct, Elevated white blood cell count, unspecified D72.829 [place] [id number] [place] [address] Oct, Elevated white blood cell count, unspecified D72.829 [place] [id number] [place] [address] Oct, Chronic pain G89.29 [place] [id number] [place] [address] Oct, [place] [id number] [place] [address] Oct, [place] [id number] [place] [address] Oct, Orthostatic hypotension I95.1 ; Dizziness R42 and Neuropathy G62.9 [facility] [id number] [place] [address] Oct, Dizziness R42 ; Low back pain M54.5 ; Other chronic pain G89.29 ; Nausea R11.0 and Orthostatic hypotension I95.1 [place] [id number] [place] [address] Sep, Rheumatoid arthritis involving multiple sites with positive rheumatoid factor M05.79 and Tobacco abuse Z72.0 [place] [id number] [place] [address] Sep, Chronic pain G89.29 [place] [address] [place] [address] Aug, Type 2 diabetes mellitus with diabetic neuropathy, unspecified E11.40 ; Hypertension I10 ; Hyperlipemia E78.5 ; Gastro-esophageal reflux disease without esophagitis K21.9 ; Emphysema, unspecified J43.9 ; Anxiety associated with depression F41.8 ; Vitamin D deficiency E55.9 ; Chronic pain G89.29 ; Tobacco abuse Z72.0 ; Overweight (BMI 25.0-29.9) E66.3 ; Atherosclerotic heart disease of [place] coronary artery 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.10 ; OAB (overactive bladder) N32.81 and Primary insomnia F51.01 [place] [address] [address] July, [place] [address] [address] July, [place] [address] [address] July, Chronic pain G89.[address] [address] July, [place] [address] [address] July, Onychomycosis B35.1 ; Hammer toe of left foot M20.42 and Type 2 diabetes mellitus with diabetic neuropathy, unspecified E11.40 [place] [id number] [place] [address] July, [place] [address] [address] July, Chronic pain G89.29 and Neuropathy G62.9 [place] [address] [address] July, [place] [address] [address] July, [place] [address] [address] Jun, [place] [address] [address] Jun, Chronic pain G89.29 [facility] [address] [address] Jun, [facility] [id number] [place] [address] Jun, [facility] [address] [address] Jun, Visit for TB skin test Z11.1 [facility] [id number] [place] [address] 16 Jun, 2017 [facility] [id number] [place] [address] Jun, [facility] [id number] [place] [address] Jun, Tobacco abuse Z72.0 and Rheumatoid arthritis involving multiple sites with positive rheumatoid factor M05.79 [facility] [address] [place] [address] Jun, Anxiety F41.9 ; Acute non-recurrent maxillary sinusitis J01.00 and Chronic pain G89.29 [facility] [address] [address] Jun, [facility] [address] [address] May, Rheumatoid arthritis involving multiple sites with positive rheumatoid factor M05.79 [facility] [address] [address] May, Chronic pain G89.29 [facility] [address] [address] 14 May, 2017 [facility] [address] [address] May, [facility] [address] [address] May, [place] [address] [place] [address] May, Type 2 diabetes mellitus with diabetic neuropathy, unspecified E11.40 [place] [id number] [place] [address] May, Type 2 diabetes mellitus with diabetic neuropathy, unspecified E11.40 ; Emphysema, unspecified J43.9 ; Hypertension I10 ; Hyperlipemia E78.5 ; Vitamin D deficiency E55.9 ; Right medial knee pain M25.561 ; Controlled substance agreement signed Z79.899 ; Chronic pain G89.29 ; Allergic rhinitis J30.9 ; Anxiety associated with depression F41.8 ; Neuropathy G62.9 and Gastro- esophageal reflux disease without esophagitis K21.9 [place] [address] [place] [address] Apr, Chronic pain G89.29 [place] [id number] [place] [address] Apr, Other hammer toe(s) (acquired), left foot M20.42 ; Other hammer toe(s) (acquired), right foot M20.41 ; Type 2 diabetes mellitus with diabetic neuropathy, unspecified E11.40 and Onychomycosis B35.1 [place] [address] [place] [address] Apr, Gastro-esophageal reflux disease without esophagitis K21.9 [place] [id number] [place] [address] Apr, Controlled substance agreement signed Z79.899 [place] [id number] [place] [address] Mar, Chronic pain G89.29 [place] [id number] [place] [address] Mar, Emphysema, unspecified J43.9 and Type 2 diabetes mellitus with diabetic neuropathy, unspecified E11.40 [facility] [id number] [place] [address] Mar, Dysuria R30.0 ; Vaginal candidiasis B37.3 and Acute nonintractable headache, unspecified headache type R51 [facility] [id number] [place] [address] Feb, Neuropathy G62.9 and Chronic pain G89.29 [place] [address] [address] Feb, Gastro-esophageal reflux disease without esophagitis K21.9 [place] [address] [address] Feb, [place] [id number] [place] [address] Feb, Rheumatoid arthritis involving multiple sites with positive rheumatoid factor M05.79 and COPD with acute exacerbation J44.[address] [address] Feb, Vaginal odor N89.8 ; Vaginal irritation N89.8 ; Candidal dermatitis B37.2 and Screening breast examination Z12.31 [place] [id number] [place] [address] Feb, [facility] [id number] [place] [address] Feb, [place] [id number] [place] [address] Feb, [place] [id number] [place] [address] Feb, COPD with exacerbation J44.1 ; Tobacco abuse counseling Z71.6 ; Tobacco abuse Z72.0 ; Rheumatoid arthritis involving multiple sites with positive rheumatoid factor M05.79 and Hyperlipemia E78.5 [facility] [id number] [place] [address] Feb, [place] [address] [place] [place] [id number] Jan, [facility] [address] [address] Jan, Chronic pain G89.29 [facility] [id number] [place] [id number] Jan, Dental examination Z01.20 [facility] [address] [address] Jan, Back pain of lumbar region with sciatica M54.40 [facility] [address] [address] 15 Jan, 2017 Acute bacterial conjunctivitis of both eyes H10.33 [place] [address] [address] 02 Jan, 2017 Chronic pain G89.29 [place] [address] [address] Dec, Type 2 diabetes mellitus with diabetic neuropathy, unspecified E11.40 ; Hypertension I10 ; Hyperlipemia E78.5 ; Gastro-esophageal reflux disease without esophagitis K21.9 ; Anxiety associated with depression F41.8 ; Allergic rhinitis J30.9 ; Neuropathy G62.9 and Dependence on nocturnal oxygen therapy Z99.81 [place] [id number] [place] [address] Dec, [place] [address] [address] Dec, [place] [id number] [place] [address] Dec, Encounter for immunization Z23 [place] [address] [address] 05 Dec, 2016 Type 2 diabetes mellitus with diabetic neuropathy, unspecified E11.40 and Chronic pain G89.29 [place] [address] [address] 11 Nov, 2016 Gastro-esophageal reflux disease without esophagitis K21.9 [facility] [id number] [place] [address] 11 Nov, 2016 Peripheral edema R60.9 and Chest pain in adult R07.9 [facility] [id number] [place] [address] 07 Nov, 2016 Chronic pain G89.29 [facility] [address] [address] 31 Oct, 2016 [facility] [address] [address] 30 Oct, 2016 [facility] [address] [address] 17 Oct, 2016 Rheumatoid arthritis with rheumatoid factor of right wrist without organ or systems involvement M05.731 [place] [address] [address] 15 Oct, 2016 [facility] [id number] [place] [address] 14 Oct, 2016 Acute exacerbation of chronic obstructive pulmonary disease (COPD) J44.1 and Canker sore K12.0 [facility] [id number] [place] [address] 14 Oct, 2016 [facility] [id number] [place] [address] Oct, [facility] [id number] [place] [address] 09 Oct, 2016 Chronic pain G89.29 [facility] [address] [id number] Oct, Dental examination Z01.20 [facility] [id number] [place] [address] 08 Oct, 2016 Dental examination Z01.20 and Periodontitis K05.30 [facility] [address] [id number] Oct, Dental examination Z01.20 [facility] [id number] [place] [address] Sep, Abscess L02.91 [facility] [id number] [place] [address] Sep, Dental examination Z01.20 [facility] [id number] [place] [address] Sep, [facility] [id number] [place] [id number] Sep, Dental examination Z01.20 and Dental caries K02.9 [facility] [id number] [place] [address] Sep, Primary insomnia F51.01 and Anxiety associated with depression F41.8 [place] [id number] [place] [address] Sep, Rheumatoid arthritis with rheumatoid factor of right wrist without organ or systems involvement M05.731 [place] [id number] [place] [address] Sep, Chronic pain G89.29 [place] [id number] [place] [address] Sep, Type 2 diabetes mellitus with diabetic neuropathy, unspecified E11.40 ; Emphysema, unspecified J43.9 ; Gastro-esophageal reflux disease without esophagitis K21.9 ; Hypertension I10 ; Hyperlipemia E78.5 ; Anxiety associated with depression F41.8 ; Chronic pain G89.29 ; Vitamin D deficiency E55.9 and Primary insomnia F51.01 [place] [id number] [place] [address] 16 Aug, 2016 Anxiety associated with depression F41.8 [place] [id number] [place] [address] Aug, Chronic pain G89.29 and Neuropathy G62.9 [place] [id number] [place] [address] Aug, Type 2 diabetes mellitus with diabetic neuropathy, unspecified E11.40 ; Rheumatoid arthritis involving multiple sites with positive rheumatoid factor M05.79 ; Vitamin D deficiency E55.9 ; Anxiety associated with depression F41.8 and Primary insomnia F51.01 [place] [id number] [place] [address] July, Emphysema, unspecified J43.9 [place] [id number] [place] [address] July, Allergic rhinitis J30.9 [place] [id number] [place] [address] July, Allergic rhinitis J30.9 ; Emphysema, unspecified J43.9 and Rheumatoid arthritis with rheumatoid factor of right wrist without organ or systems involvement M05.731 [place] [id number] [place] [address] July, Neuropathy G62.9 and Chronic pain G89.29 [place] [id number] [place] [address] July, Rheumatoid arthritis involving multiple sites with positive rheumatoid factor M05.79 [place] [id number] [place] [address] Jun, [place] [id number] [place] [address] Jun, Neuropathy G62.9 and Chronic pain G89.29 [place] [id number] [place] [address] May, Neuropathy G62.9 and Chronic pain G89.29 [place] [id number] [place] [address] May, [place] [id number] [place] [address] May, [place] [id number] [place] [address] May, Type 2 diabetes mellitus with diabetic [...] system involvement with positive rheumatoid factor M05.732 [place] [address] [address] Apr, Chronic pain G89.[address] [address] Mar, Gastro-esophageal reflux disease without esophagitis K21.9 [place] [address] [address] Mar, [address] [address] Mar, Rheumatoid arthritis with rheumatoid factor of right wrist without organ or systems involvement M05.[address] [address] Mar, Chronic pain G89.29 [place] [address] [address] Feb, Hyperlipemia E78.[address] [address] Feb, Abnormal breath sounds R06.89 ; COPD with exacerbation J44.1 and Fatigue, unspecified type R53.[address] [address] Feb, Neuropathy G62.9 ; Abnormal lung sounds R09.89 and Bronchitis J40 [facility] [address] [address] Feb, Bronchitis J40 [facility] [id number] [place] [address] Feb, Chronic pain G89.29 [place] [id number] [place] [address] Jan, Type 2 diabetes mellitus with diabetic neuropathy, unspecified E11.40 ; Rheumatoid arthritis with rheumatoid factor of right wrist without organ or systems involvement M05.731 and Hyperlipemia E78.5 [place] [id number] [place] [address] Jan, Rheumatoid arthritis with rheumatoid factor of right wrist without organ or systems involvement M05.731 [place] [id number] [place] [address] Jan, De Quervain's disease (radial styloid tenosynovitis) M65.4 ; Closed nondisplaced fracture of scaphoid of left wrist, unspecified portion of scaphoid, initial encounter S62.002A and Peripheral tear of medial meniscus of left knee, unspecified whether old or current tear, initial encounter S83.222A [place] [address] [place] [address] Jan, Hypertension I10 ; Type 2 diabetes mellitus with diabetic neuropathy, unspecified E11.40 ; Hyperlipemia E78.5 ; Allergic rhinitis J30.9 ; Neuropathy G62.9 ; Rheumatoid arthritis with rheumatoid factor of right wrist without organ or systems involvement M05.731 ; Acute non-recurrent maxillary sinusitis J01.00 and Chronic pain G89.29 [place] [id number] [place] [address] Dec, [place] [id number] [place] [address] Dec, [place] [id number] [place] [address] Dec, Type 2 diabetes mellitus with diabetic neuropathy, unspecified E11.40 ; Emphysema, unspecified J43.9 ; Gastro-esophageal reflux disease without esophagitis K21.9 ; Hypertension I10 ; Hyperlipemia E78.5 ; Rheumatoid arthritis with rheumatoid factor of right wrist without organ or systems involvement M05.731 ; Elevated white blood cell count, unspecified D72.829 ; Acute non- recurrent frontal sinusitis J01.10 and Chronic pain G89.29 [place] [id number] [place] [address] Nov, [place] [id number] [place] [address] Nov, Elevated white blood cell count, unspecified D72.829 ; Encounter for immunization Z23 ; Rheumatoid arthritis with rheumatoid factor of right wrist without organ or systems involvement M05.731 ; Injury of left hand S69.92XA ; Pain in left knee M25.562 and Other chronic pain G89.29 [place] [id number] [place] [address] Nov, [place] [id number] [place] [address] Nov, [place] [id number] [place] [address] Oct, [place] [id number] [place] [address] Oct, Hyperlipemia E78.5 [place] [id number] [place] [address] Oct, [place] [id number] [place] [address] Oct, Type 2 diabetes mellitus with diabetic neuropathy, unspecified E11.40 ; Neuropathy G62.9 ; Hypertension I10 ; Chronic pain G89.29 and Hyperlipemia E78.5 [place] [id number] [place] [address] Oct, Emphysema, unspecified J43.9 and Rheumatoid arthritis of left wrist without organ or system involvement with positive rheumatoid factor M05.732 [place] [id number] [place] [address] Sep, Chronic pain syndrome G89.4 [place] [id number] [place] [address] Sep, [place] [id number] [place] [address] Sep, [place] [id number] [place] [address] Sep, Closed nondisplaced fracture of scaphoid of left wrist, unspecified portion of scaphoid, initial encounter S62.002A [place] [id number] [place] [address] Sep, Type 2 diabetes mellitus with diabetic neuropathy, unspecified E11.40 ; Hypertension I10 ; Hyperlipemia E78.5 and Acute non-recurrent maxillary sinusitis J01.00 [place] [id number] [place] [address] Sep, [place] [id number] [place] [address] Sep, [place] [id number] [place] [address] Sep, [place] [id number] [place] [address] Sep, [place] [id number] [place] [address] Aug, Epigastric pain R10.13 and Right upper quadrant pain R10.11 [place] [id number] [place] [address] Aug, Closed nondisplaced fracture of scaphoid of left wrist, unspecified portion of scaphoid, initial encounter S62.002A [place] [id number] [place] [address] Aug, [place] [id number] [place] [address] Aug, [facility] [address] [place] [id number] [place] [id number] Aug, Shortness of breath R06.02 ; Epigastric pain R10.13 and Injury of left lower arm, initial encounter S59.912A [place] [address] [id number] Aug, Coronary artery disease involving [place] heart with angina pectoris, unspecified vessel or lesion type I25.119 ; Pulmonary emphysema, unspecified emphysema type J43.9 and Snoring R06.83 [place] [address] [address] Aug, [place] [address] [place] [id number] [place] [address] Aug, Emphysema, unspecified J43.9 ; Atherosclerotic heart disease of [place] coronary artery 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.10 and Hypertension I10 [place] [address] [place] [id number] [place] [address] July, [place] [address] [place] [id number] [place] [address] July, Closed nondisplaced fracture of scaphoid of left wrist, unspecified portion of scaphoid, initial encounter S62.002A [place] [address] [place] [id number] [place] [address] July, [place] [address] [place] [id number] [place] [address] July, Type 2 diabetes mellitus with diabetic neuropathy, unspecified E11.40 ; Emphysema, unspecified J43.9 ; Atherosclerotic heart disease of [place] coronary artery 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.10 ; [...] agents L24.89 and Hospital discharge follow-up Z09 [place] [address] [place] [id number] [place] [address] July, [place] [address] [place] [id number] [place] [address] July, Type 2 diabetes mellitus with diabetic neuropathy, unspecified E11.40 [place] [address] [place] [id number] [place] [address] July, Type 2 diabetes mellitus with diabetic neuropathy, unspecified E11.40 and Rheumatoid arthritis of left wrist without organ or system involvement with positive rheumatoid factor M05.732 [place] [address] [place] [id number] [place] [address] July, [place] [address] [place] [id number] [place] [address] July, [place] [address] [place] [id number] [place] [address] Jun, [place] [address] [place] [id number] [place] [address] Jun, [place] [address] [place] [id number] [place] [address] Jun, 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 [place] [address] [place] [id number] [place] [address] Jun, [place] [address] [place] [id number] [place] [address] Jun, 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 [place] [address] [place] [id number] [place] [address] Jun, [place] [address] [place] [id number] [place] [address] Jun, [place] [address] [address] Jun, Encounter for PPD test Z11.1 ; Rheumatoid arthritis with rheumatoid factor of right wrist without organ or systems involvement M05.731 and Rheumatoid arthritis of left wrist without organ or system involvement with positive rheumatoid factor M05.732 [place] [address] [place] [id number] [place] [address] Jun, Type 2 diabetes mellitus with diabetic neuropathy, unspecified E11.40 [place] [address] [place] [id number] [place] [address] May, Type 2 diabetes mellitus with diabetic neuropathy, unspecified E11.40 ; Emphysema, unspecified J43.9 ; Rheumatoid arthritis with rheumatoid factor of right wrist without organ or systems involvement M05.731 ; Rheumatoid arthritis of left wrist without organ or system involvement with positive rheumatoid factor M05.732 and Chronic pain G89.29 [place] [address] [place] [id number] [place] [address] May, [place] [address] [place] [id number] [place] [address] May, Swelling of hand joint M25.449 ; Ankle swelling M25.473 and Joint pain M25.50 [place] [address] [place] [id number] [place] [address] May, Emphysema, unspecified J43.9 [place] [address] [place] [id number] [place] [address] May, Gastroenteritis K52.9 and Hypertension I10 [place] [address] [place] [id number] [place] [address] Apr, [place] [address] [place] [id number] [place] [address] Apr, [id number] [place] [address] Apr, [address] [address] Apr, Type 2 diabetes mellitus with diabetic neuropathy, unspecified E11.40 ; Emphysema, unspecified J43.9 ; Atherosclerotic heart disease of [place] coronary artery 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.10 ; Migraine without aura, not intractable, with status migrainosus G43.001 ; Gastro-esophageal reflux disease without esophagitis K21.9 ; CAD (coronary artery disease) I25.10 ; Hypertension I10 ; Hyperlipemia E78.5 ; Allergic rhinitis J30.9 ; Neuropathy G62.9 ; Anxiety associated with depression F41.8 and Injury of left hand S69.92XA [address] [address] Apr, [address] [address] Apr, [place] [id number] [place] [address] Apr, Type 2 diabetes mellitus with diabetic neuropathy, unspecified E11.40 ; Emphysema, unspecified J43.9 ; Essential (primary) hypertension I10 ; Atherosclerotic heart disease of [place] coronary artery 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.10 ; Gastro-esophageal reflux disease without esophagitis K21.9 ; CAD (coronary artery disease) I25.10 ; Hyperlipemia E78.5 ; Hypertension I10 ; History of solitary pulmonary nodule Z87.898 ; Allergic rhinitis J30.9 ; Chronic pain G89.29 and Depression with anxiety F41.[address] [address] Mar, [address] [address] Mar, Allergic rhinitis J30.9 ; URI (upper respiratory infection) J06.9 and Other viral agents as the cause of diseases classified elsewhere B97.89 [facility] [id number] [place] [address] Feb, Acute nasopharyngitis [common cold] J00 and Acute diarrhea R19.7 [facility] [address] [place] [id number] [place] [address] Feb, Depression F32.9 [place] [address] [address] Jan, Otitis media, right H66.91 [place] [address] [place] [id number] [place] [address] Jan, [place] [address] [address] Jan, Type 2 diabetes mellitus with diabetic neuropathy, unspecified E11.40 [place] [address] [address] Jan, [place] [address] [place] [id number] [place] [address] Jan, Hyperlipemia E78.5 [place] [address] [place] [id number] [place] [address] Jan, Type 2 diabetes mellitus with diabetic neuropathy, unspecified E11.40 ; Emphysema, unspecified J43.9 ; CAD (coronary artery disease) I25.10 and Hyperlipemia E78.5 [place] [address] [place] [id number] [place] [address] Dec, Allergic rhinitis J30.9 and Fungal infection B49 [place] [address] [place] [id number] [place] [address] Dec, [place] [address] [address] Dec, [facility] [address] [place] [id number] [place] [address] Dec, Chest pain R07.9 ; CAD (coronary artery disease) I25.10 ; Hypertension I10 and Hyperlipemia E78.5 [place] [id number] [place] [address] Dec, Pain in thoracic spine M54.6 ; Gastro-esophageal reflux disease without esophagitis K21.9 ; Emphysema, unspecified J43.9 and Migraine without aura, not intractable, with status migrainosus G43.001 [place] [address] [address] Dec, [place] [address] [address] Nov, Influenza vaccine administered V04.[address] [address] Nov, [place] [address] [address] Sep, [place] [address] [address] Sep, [place] [address] [address] Sep, CAD (coronary artery disease) 414.00 and Diabetes type 2, uncontrolled 250.02 [place] [id number] [place] [address] Sep, CAD (coronary artery disease) 414.00 ; [...] Medical History Cardiac stents July 2010 post [place]-stent to LAD Medical History Rheumatoid Arthritis Medical History 04/2016---Echo- 60%//mild hypertrophy at the base of the septum, mild mitral regurg/ mild tricuspid regurg. PAP about 10-15 mmHg Medical History 04/2016------Normal Lexiscan Medical History Elevated white blood cell count, unspecified Medical History Atherosclerotic heart disease of [place] coronary artery without angina pectoris Medical History [...]
--- OUTSIDE RECORDS SUMMARY | 2018-08-23 16:58 | XMS REPORT ---
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 Name Role Phone JESÚS DURHAM Unavailable PROBLEMS Type Condition ICD9-CM Code [id number] Code Onset Dates Condition Status SNOMED Code Problem Dependence on nocturnal oxygen therapy Z99.81 Active 97287656655361 Problem Other hammer toe(s) (acquired), left foot M20.42 Active 91286882 Problem Neuropathy G62.9 Active 034255102 Problem Elevated white blood cell count, unspecified D72.829 Active 272114558 Problem Hypertension I10 Active 54761080 Problem Other chronic pain G89.29 Active 78322406 Problem Hyperlipemia E78.5 Active 93555497 Problem Vitamin D deficiency E55.9 Active 35117822 Problem Tobacco abuse Z72.0 Active 047074853 Problem Other hammer toe(s) (acquired), right foot M20.41 Active 586539164 Problem Atherosclerotic heart disease of [place] coronary artery 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.10 Active 329352355945257 Problem Hammer toe of left foot M20.42 Active 779642071 Problem Type 2 diabetes mellitus with diabetic neuropathy, unspecified E11.40 Active 40075880 Problem Allergic rhinitis J30.9 Active 49722972 Problem Gastro-esophageal reflux disease without esophagitis K21.9 Active 117296062 Problem Emphysema, unspecified J43.9 Active 42229786 Problem OAB (overactive bladder) N32.81 Active 197892032 Problem Rheumatoid arthritis involving multiple sites with positive rheumatoid factor M05.79 Active 465841791 Problem Anxiety associated with depression F41.8 Active 519045806 Problem Primary insomnia F51.01 Active 6681256 Problem Chronic pain G89.29 Active 99735016 Problem Periodontitis K05.30 Active 59646581 ALLERGIES No Information ENCOUNTERS Encounter Location Date Diagnosis [facility] [address] [facility] [id number] [address] Dec, [facility] [address] [address] Oct, [facility] [id number] [place] [address] Oct, Elevated white blood cell count, unspecified D72.829 [place] [id number] [place] [address] Oct, Chronic pain G89.29 [place] [id number] [place] [address] Oct, [facility] [id number] [place] [address] Oct, [facility] [id number] [place] [address] Oct, Orthostatic hypotension I95.1 ; Dizziness R42 and Neuropathy G62.9 [facility] [id number] [place] [address] Oct, Dizziness R42 ; Low back pain M54.5 ; Other chronic pain G89.29 ; Nausea R11.0 and Orthostatic hypotension I95.1 [place] [address] [place] [address] Sep, Rheumatoid arthritis involving multiple sites with positive rheumatoid factor M05.79 and Tobacco abuse Z72.0 [place] [id number] [place] [address] Sep, Chronic pain G89.29 [place] [id number] [place] [address] Aug, Type 2 diabetes mellitus with diabetic neuropathy, unspecified E11.40 ; Hypertension I10 ; Hyperlipemia E78.5 ; Gastro-esophageal reflux disease without esophagitis K21.9 ; Emphysema, unspecified J43.9 ; Anxiety associated with depression F41.8 ; Vitamin D deficiency E55.9 ; Chronic pain G89.29 ; Tobacco abuse Z72.0 ; Overweight (BMI 25.0-29.9) E66.3 ; Atherosclerotic heart disease of [place] coronary artery 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.10 ; OAB (overactive bladder) N32.81 and Primary insomnia F51.01 [facility] [id number] [address] July, [facility] [id number] [place] [address] July, [facility] [id number] [place] [address] July, Chronic pain G89.29 [facility] [id number] [place] [address] July, [facility] [id number] [place] [address] July, Onychomycosis B35.1 ; Hammer toe of left foot M20.42 and Type 2 diabetes mellitus with diabetic neuropathy, unspecified E11.40 [facility] [id number] [place] [address] July, [facility] [id number] [place] [address] July, Chronic pain G89.29 and Neuropathy G62.9 [facility] [id number] [place] [address] July, [facility] [id number] [place] [address] July, [facility] [id number] [place] [address] Jun, [facility] [id number] [place] [address] Jun, Chronic pain G89.29 [facility] [id number] [place] [address] Jun, [facility] [address] [address] Jun, [facility] [id number] [place] [address] Jun, Visit for TB skin test Z11.1 [facility] [id number] [place] [address] Jun, [facility] [id number] [place] [address] Jun, [facility] [id number] [place] [address] Jun, Tobacco abuse Z72.0 and Rheumatoid arthritis involving multiple sites with positive rheumatoid factor M05.79 [facility] [id number] [place] [address] Jun, Anxiety F41.9 ; Acute non-recurrent maxillary sinusitis J01.00 and Chronic pain G89.29 [facility] [id number] [place] [address] Jun, [facility] [id number] [place] [address] May, Rheumatoid arthritis involving multiple sites with positive rheumatoid factor M05.79 [facility] [address] [address] May, Chronic pain G89.29 [facility] [address] [address] May, [facility] [address], [place] [address] May, [facility] [id number] [place] [address] May, [facility] [address], [place] [address] May, Type 2 diabetes mellitus with diabetic neuropathy, unspecified E11.40 [facility] [address] [place] [address] May, Type 2 diabetes mellitus with diabetic neuropathy, unspecified E11.40 ; Emphysema, unspecified J43.9 ; Hypertension I10 ; Hyperlipemia E78.5 ; Vitamin D deficiency E55.9 ; Right medial knee pain M25.561 ; Controlled substance agreement signed Z79.899 ; Chronic pain G89.29 ; Allergic rhinitis J30.9 ; Anxiety associated with depression F41.8 ; Neuropathy G62.9 and Gastro- esophageal reflux disease without esophagitis K21.9 [facility] [id number] [place] [address] Apr, Chronic pain G89.29 [place] [id number] [place] [address] 16 Apr, 2017 Other hammer toe(s) (acquired), left foot M20.42 ; Other hammer toe(s) (acquired), right foot M20.41 ; Type 2 diabetes mellitus with diabetic neuropathy, unspecified E11.40 and Onychomycosis B35.1 [place] [id number] [place] [address] 2017 Gastro-esophageal reflux disease without esophagitis K21.9 [place] [id number] [place] [address] Apr, Controlled substance agreement signed Z79.899 [place] [id number] [place] [address] Mar, Chronic pain G89.29 [place] [id number] [place] [address] Mar, Emphysema, unspecified J43.9 and Type 2 diabetes mellitus with diabetic neuropathy, unspecified E11.40 [facility] [id number] [place] [address] Mar, Dysuria R30.0 ; Vaginal candidiasis B37.3 and Acute nonintractable headache, unspecified headache type R51 [place] [id number] [place] [address] Feb, Neuropathy G62.9 and Chronic pain G89.29 [place] [id number] [place] [address] Feb, Gastro-esophageal reflux disease without esophagitis K21.9 [place] [address] [address] Feb, [place] [id number] [place] [address] Feb, Rheumatoid arthritis involving multiple sites with positive rheumatoid factor M05.79 and COPD with acute exacerbation J44.1 [place] [id number] [place] [address] Feb, Vaginal odor N89.8 ; Vaginal irritation N89.8 ; Candidal dermatitis B37.2 and Screening breast examination Z12.31 [place] [id number] [place] [address] Feb, [place] [address] [address] Feb, [place] [id number] [place] [address] Feb, [place] [id number] [place] [address] Feb, COPD with exacerbation J44.1 ; Tobacco abuse counseling Z71.6 ; Tobacco abuse Z72.0 ; Rheumatoid arthritis involving multiple sites with positive rheumatoid factor M05.79 and Hyperlipemia E78.5 [place] [id number] [place] [address] Feb, [facility] [id number] [place] [id number] Jan, [place] [address] [address] Jan, Chronic pain G89.29 [facility] [id number] [place] [id number] 27 Jan, 2017 Dental examination Z01.20 [facility] [id number] [place] [address] 19 Jan, 2017 Back pain of lumbar region with sciatica M54.40 [facility] [address] [address] 15 Jan, 2017 Acute bacterial conjunctivitis of both eyes H10.33 [place] [address] [address] 02 Jan, 2017 Chronic pain G89.29 [place] [address] [address] Dec, Type 2 diabetes mellitus with diabetic neuropathy, unspecified E11.40 ; Hypertension I10 ; Hyperlipemia E78.5 ; Gastro-esophageal reflux disease without esophagitis K21.9 ; Anxiety associated with depression F41.8 ; Allergic rhinitis J30.9 ; Neuropathy G62.9 and Dependence on nocturnal oxygen therapy Z99.81 [place] [address] [address] Dec, [place] [id number] [place] [address] Dec, [place] [address] [address] Dec, Encounter for immunization Z23 [place] [id number] [place] [address] 05 Dec, 2016 Type 2 diabetes mellitus with diabetic neuropathy, unspecified E11.40 and Chronic pain G89.29 [place] [address] [address] Nov, Gastro-esophageal reflux disease without esophagitis K21.9 [place] [address] [address] Nov, Peripheral edema R60.9 and Chest pain in adult R07.9 [facility] [id number] [place] [address] 07 Nov, 2016 Chronic pain G89.29 [facility] [id number] [place] [address] Oct, [facility] [id number] [place] [address] Oct, [facility] [id number] [place] [address] 17 Oct, 2016 Rheumatoid arthritis with rheumatoid factor of right wrist without organ or systems involvement M05.731 [facility] [id number] [place] [address] 15 Oct, 2016 [facility] [id number] [place] [address] Oct, Acute exacerbation of chronic obstructive pulmonary disease (COPD) J44.1 and Canker sore K12.0 [facility] [id number] [place] [address] Oct, [facility] [id number] [place] [address] Oct, [facility] [id number] [place] [address] Oct, Chronic pain G89.29 [facility] [id number] [place] [phone] Oct, Dental examination Z01.20 [facility] [id number] [place] [address] Oct, Dental examination Z01.20 and Periodontitis K05.30 [facility] [id number] [place] [phone] Oct, Dental examination Z01.20 [facility] [id number] [place] [address] Sep, Abscess L02.91 [place] [address], [place] [address] Sep, Dental examination Z01.20 [facility] [address], [place] [address] Sep, [facility] [id number] [place] [id number] Sep, Dental examination Z01.20 and Dental caries K02.9 [place] [id number] [place] [address] Sep, Primary insomnia F51.01 and Anxiety associated with depression F41.8 [place] [id number] [place] [address] Sep, Rheumatoid arthritis with rheumatoid factor of right wrist without organ or systems involvement M05.731 [place] [id number] [place] [address] Sep, Chronic pain G89.29 [place] [id number] [place] [address] Sep, Type 2 diabetes mellitus with diabetic neuropathy, unspecified E11.40 ; Emphysema, unspecified J43.9 ; Gastro-esophageal reflux disease without esophagitis K21.9 ; Hypertension I10 ; Hyperlipemia E78.5 ; Anxiety associated with depression F41.8 ; Chronic pain G89.29 ; Vitamin D deficiency E55.9 and Primary insomnia F51.01 [place] [address], [place] [address] 16 Aug, 2016 Anxiety associated with depression F41.8 [place] [id number] [place] [address] Aug, Chronic pain G89.29 and Neuropathy G62.9 [place] [address] [place] [address] Aug, Type 2 diabetes mellitus with diabetic neuropathy, unspecified E11.40 ; Rheumatoid arthritis involving multiple sites with positive rheumatoid factor M05.79 ; Vitamin D deficiency E55.9 ; Anxiety associated with depression F41.8 and Primary insomnia F51.01 [place] [id number] [place] [address] July, Emphysema, unspecified J43.9 [place] [id number] [place] [address] July, Allergic rhinitis J30.9 [place] [id number] [place] [address] July, Allergic rhinitis J30.9 ; Emphysema, unspecified J43.9 and Rheumatoid arthritis with rheumatoid factor of right wrist without organ or systems involvement M05.731 [place] [id number] [place] [address] July, Neuropathy G62.9 and Chronic pain G89.29 [place] [id number] [place] [address] July, Rheumatoid arthritis involving multiple sites with positive rheumatoid factor M05.79 [place] [id number] [place] [address] Jun, [place] [id number] [place] [address] Jun, Neuropathy G62.9 and Chronic pain G89.29 [place] [id number] [place] [address] May, Neuropathy G62.9 and Chronic pain G89.29 [place] [id number] [place] [address] May, [place] [id number] [place] [address] May, [place] [id number] [place] [address] May, Type 2 diabetes mellitus with diabetic [...] system involvement with positive rheumatoid factor M05.732 [place] [address] [address] 14 Apr, 2016 Chronic pain G89.29 [place] [address] [address] Mar, Gastro-esophageal reflux disease without esophagitis K21.9 [place] [address] [address] Mar, [place] [address] [address] Mar, Rheumatoid arthritis with rheumatoid factor of right wrist without organ or systems involvement M05.731 [place] [address] [address] Mar, Chronic pain G89.29 [place] [address] [address] Feb, Hyperlipemia E78.5 [place] [address] [address] Feb, Abnormal breath sounds R06.89 ; COPD with exacerbation J44.1 and Fatigue, unspecified type R53.[address] [address] Feb, Neuropathy G62.9 ; Abnormal lung sounds R09.89 and Bronchitis J40 [facility] [address] [address] Feb, Bronchitis J40 [place] [address] [place] [address] Feb, Chronic pain G89.29 [place] [id number] [place] [address] Jan, Type 2 diabetes mellitus with diabetic neuropathy, unspecified E11.40 ; Rheumatoid arthritis with rheumatoid factor of right wrist without organ or systems involvement M05.731 and Hyperlipemia E78.5 [place] [id number] [place] [address] Jan, Rheumatoid arthritis with rheumatoid factor of right wrist without organ or systems involvement M05.731 [place] [id number] [place] [address] Jan, De Quervain's disease (radial styloid tenosynovitis) M65.4 ; Closed nondisplaced fracture of scaphoid of left wrist, unspecified portion of scaphoid, initial encounter S62.002A and Peripheral tear of medial meniscus of left knee, unspecified whether old or current tear, initial encounter S83.222A [place] [id number] [place] [address] Jan, Hypertension I10 ; Type 2 diabetes mellitus with diabetic neuropathy, unspecified E11.40 ; Hyperlipemia E78.5 ; Allergic rhinitis J30.9 ; Neuropathy G62.9 ; Rheumatoid arthritis with rheumatoid factor of right wrist without organ or systems involvement M05.731 ; Acute non-recurrent maxillary sinusitis J01.00 and Chronic pain G89.29 [place] [address], [place] [address] Dec, [place] [id number] [place] [address] Dec, [place] [id number] [place] [address] Dec, Type 2 diabetes mellitus with diabetic neuropathy, unspecified E11.40 ; Emphysema, unspecified J43.9 ; Gastro-esophageal reflux disease without esophagitis K21.9 ; Hypertension I10 ; Hyperlipemia E78.5 ; Rheumatoid arthritis with rheumatoid factor of right wrist without organ or systems involvement M05.731 ; Elevated white blood cell count, unspecified D72.829 ; Acute non- recurrent frontal sinusitis J01.10 and Chronic pain G89.29 [place] [address] [address] Nov, [place] [address] [address] Nov, Elevated white blood cell count, unspecified D72.829 ; Encounter for immunization Z23 ; Rheumatoid arthritis with rheumatoid factor of right wrist without organ or systems involvement M05.731 ; Injury of left hand S69.92XA ; Pain in left knee M25.562 and Other chronic pain G89.29 [place] [address] [address] Nov, [place] [address] [address] Nov, [place] [address] [address] Oct, [place] [id number] [place] [address] Oct, Hyperlipemia E78.5 [place] [address] [address] Oct, [place] [id number] [place] [address] Oct, Type 2 diabetes mellitus with diabetic neuropathy, unspecified E11.40 ; Neuropathy G62.9 ; Hypertension I10 ; Chronic pain G89.29 and Hyperlipemia E78.5 [place] [address] [address] Oct, Emphysema, unspecified J43.9 and Rheumatoid arthritis of left wrist without organ or system involvement with positive rheumatoid factor M05.732 [place] [id number] [place] [address] Sep, Chronic pain syndrome G89.4 [place] [id number] [place] [address] Sep, [place] [id number] [place] [address] Sep, [place] [id number] [place] [address] Sep, Closed nondisplaced fracture of scaphoid of left wrist, unspecified portion of scaphoid, initial encounter S62.002A [place] [id number] [place] [address] Sep, Type 2 diabetes mellitus with diabetic neuropathy, unspecified E11.40 ; Hypertension I10 ; Hyperlipemia E78.5 and Acute non-recurrent maxillary sinusitis J01.00 [place] [id number] [place] [id number] Sep, [place] [id number] [place] [id number] Sep, [place] [id number] [place] [id number] Sep, [place] [id number] [place] [address] Sep, [place] [id number] [place] [address] Aug, Epigastric pain R10.13 and Right upper quadrant pain R10.11 [place] [id number] [place] [address] Aug, Closed nondisplaced fracture of scaphoid of left wrist, unspecified portion of scaphoid, initial encounter S62.002A [place] [id number] [place] [address] Aug, [facility] [id number] [place] [id number] Aug, [facility] [id number] [place] [address] Aug, Shortness of breath R06.02 ; Epigastric pain R10.13 and Injury of left lower arm, initial encounter S59.912A [facility] [id number] [place] [address] Aug, Coronary artery disease involving [place] heart with angina pectoris, unspecified vessel or lesion type I25.119 ; Pulmonary emphysema, unspecified emphysema type J43.9 and Snoring R06.83 [facility] [id number] [place] [address] Aug, [facility] [id number] [place] [address] Aug, Emphysema, unspecified J43.9 ; Atherosclerotic heart disease of [place] coronary artery 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.10 and Hypertension I10 [facility] [id number] [place] [address] July, [facility] [id number] [place] [address] July, Closed nondisplaced fracture of scaphoid of left wrist, unspecified portion of scaphoid, initial encounter S62.002A [facility] [id number] [place] [address] July, [facility] [place] [id number] [place] [address] July, Type 2 diabetes mellitus with diabetic neuropathy, unspecified E11.40 ; Emphysema, unspecified J43.9 ; Atherosclerotic heart disease of [place] coronary artery 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.10 ; [...] agents L24.89 and Hospital discharge follow-up Z09 [facility] [address] [address] July, [facility] [id number] [place] [address] July, Type 2 diabetes mellitus with diabetic neuropathy, unspecified E11.40 [facility] [id number] [place] [address] July, Type 2 diabetes mellitus with diabetic neuropathy, unspecified E11.40 and Rheumatoid arthritis of left wrist without organ or system involvement with positive rheumatoid factor M05.732 [facility] [id number] [place] [address] July, [facility] [id number] [place] [address] July, [facility] [id number] [place] [address] Jun, [facility] [id number] [place] [address] Jun, [facility] [address] [address] Jun, 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 [facility] [id number] [place] [address] Jun, [facility] [id number] [place] [address] Jun, 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 [facility] [id number] [place] [address] Jun, [facility] [id number] [place] [address] Jun, [facility] [place] [id number] [place] [address] Jun, Encounter for PPD test Z11.1 ; Rheumatoid arthritis with rheumatoid factor of right wrist without organ or systems involvement M05.731 and Rheumatoid arthritis of left wrist without organ or system involvement with positive rheumatoid factor M05.732 [facility] [place] [id number] [place] [address] Jun, Type 2 diabetes mellitus with diabetic neuropathy, unspecified E11.40 [facility] [place] [id number] [place] [address] May, Type 2 diabetes mellitus with diabetic neuropathy, unspecified E11.40 ; Emphysema, unspecified J43.9 ; Rheumatoid arthritis with rheumatoid factor of right wrist without organ or systems involvement M05.731 ; Rheumatoid arthritis of left wrist without organ or system involvement with positive rheumatoid factor M05.732 and Chronic pain G89.29 [facility] [address] [address] May, [facility] [place] [id number] [place] [address] May, Swelling of hand joint M25.449 ; Ankle swelling M25.473 and Joint pain M25.50 [facility] [id number] [place] [address] May, Emphysema, unspecified J43.9 [facility] [place] [id number] [place] [address] May, Gastroenteritis K52.9 and Hypertension I10 [facility] [place] [id number] [place] [address] Apr, [facility] [place] [id number] [place] [address] Apr, [facility] [place] [id number] [place] [address] Apr, [facility] [place] [address] [place] [address] 18 Apr, 2015 Type 2 diabetes mellitus with diabetic neuropathy, unspecified E11.40 ; Emphysema, unspecified J43.9 ; Atherosclerotic heart disease of [place] coronary artery 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.10 ; Migraine without aura, not intractable, with status migrainosus G43.001 ; Gastro-esophageal reflux disease without esophagitis K21.9 ; CAD (coronary artery disease) I25.10 ; Hypertension I10 ; Hyperlipemia E78.5 ; Allergic rhinitis J30.9 ; Neuropathy G62.9 ; Anxiety associated with depression F41.8 and Injury of left hand S69.92XA [facility] [place] [address] [address] Apr, [place] [address] [address] Apr, [place] [address] [address] Apr, Type 2 diabetes mellitus with diabetic neuropathy, unspecified E11.40 ; Emphysema, unspecified J43.9 ; Essential (primary) hypertension I10 ; Atherosclerotic heart disease of [place] coronary artery 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.10 ; Gastro-esophageal reflux disease without esophagitis K21.9 ; CAD (coronary artery disease) I25.10 ; Hyperlipemia E78.5 ; Hypertension I10 ; History of solitary pulmonary nodule Z87.898 ; Allergic rhinitis J30.9 ; Chronic pain G89.29 and Depression with anxiety F41.8 [facility] [id number] [place] [address] Mar, [place] [address] [address] Mar, Allergic rhinitis J30.9 ; URI (upper respiratory infection) J06.9 and Other viral agents as the cause of diseases classified elsewhere B97.89 [facility] [id number] [place] [address] Feb, Acute nasopharyngitis [common cold] J00 and Acute diarrhea R19.7 [facility] [place] [id number] [place] [address] Feb, Depression F32.9 [facility] [place] [address] [address] Jan, Otitis media, right H66.[address] [address] Jan, [facility] [address] [address] Jan, Type 2 diabetes mellitus with diabetic neuropathy, unspecified E11.40 [facility] [place] [address] [address] Jan, [facility] [place] [address] [address] Jan, Hyperlipemia E78.5 [facility] [address] [address] Jan, Type 2 diabetes mellitus with diabetic neuropathy, unspecified E11.40 ; Emphysema, unspecified J43.9 ; CAD (coronary artery disease) I25.10 and Hyperlipemia E78.5 [place] [id number] [place] [address] Dec, Allergic rhinitis J30.9 and Fungal infection B49 [facility] [id number] [place] [address] Dec, [facility] [place] [address] [address] Dec, [place] [address] [address] Dec, Chest pain R07.9 ; CAD (coronary artery disease) I25.10 ; Hypertension I10 and Hyperlipemia E78.5 [facility] [address] [address] Dec, Pain in thoracic spine M54.6 ; Gastro-esophageal reflux disease without esophagitis K21.9 ; Emphysema, unspecified J43.9 and Migraine without aura, not intractable, with status migrainosus G43.001 [facility] [place] [id number] [place] [address] Dec, [facility] [place] [id number] [place] [address] Nov, Influenza vaccine administered V04.81 [facility] [place] [id number] [place] [address] Nov, [facility] [place] [address] [address] Sep, [facility] [place] [id number] [place] [address] Sep, [facility] [place] [address] [address] Sep, CAD (coronary artery disease) 414.00 and Diabetes type 2, uncontrolled 250.02 [facility] [place] [id number] [place] [address] Sep, CAD (coronary artery disease) 414.00 ; Diabetes type 2, uncontrolled 250.02 and Migraine 346.90 IMMUNIZATIONS No Known Immunizations SOCIAL HISTORY Never Assessed REASON FOR VISIT 3 month f/u. Consult Dr. Durham;Roopa RT(R) PLAN OF CARE Activity Details Follow Up 3 Months Reason: VITAL SIGNS Height 66 in 2017-08-04 Blood pressure systolic 114 mmHg 2017-08-04 Blood pressure diastolic 62 mmHg 2017-08-04 MEDICATIONS Unknown Medications RESULTS No Results PROCEDURES Procedure Date Ordered Result Body Site DEBRIDE NAIL, 6 OR MORE August 04, 2017 INSTRUCTIONS MEDICATIONS ADMINISTERED No Known Medications MEDICAL (GENERAL) HISTORY Type Description Date Medical History COPD Medical History Type 2 Diabetes Medical History HTN Medical History Cardiac stents July 2010 post MD-stent to LAD Medical History Rheumatoid Arthritis Medical History 04/2016---Echo- 60%//mild hypertrophy at the base of the septum, mild mitral regurg/ mild tricuspid regurg. PAP about 10-15 mmHg Medical History 04/2016------Normal Lexiscan Medical History Elevated white blood cell count, unspecified Medical History Atherosclerotic heart disease of [place] coronary artery without angina pectoris Medical History [...]
--- OUTSIDE RECORDS SUMMARY | 2018-08-23 16:58 | XMS REPORT ---
Author Author DELEONROB MoranELE Organization [facility] Address [address] [place] [address] Care Team Providers Care Wildlife Science Professor Name Role Phone DELEONCLAU Moran Unavailable PROBLEMS Type Condition ICD9-CM Code LSF92-PR Code Onset Dates Condition Status SNOMED Code Problem Dependence on nocturnal oxygen therapy Z99.81 Active 37199627371549 Problem Other hammer toe(s) (acquired), left foot M20.42 Active 90056320 Problem Neuropathy G62.9 Active 247279562 Problem Elevated white blood cell count, unspecified D72.829 Active 671943897 Problem Hypertension I10 Active 74813194 Problem Other chronic pain G89.29 Active 98820677 Problem Hyperlipemia E78.5 Active 52631473 Problem Vitamin D deficiency E55.9 Active 86879043 Problem Tobacco abuse Z72.0 Active 567767793 Problem Other hammer toe(s) (acquired), right foot M20.41 Active 948962940 Problem 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 Active 088126773409125 Problem Hammer toe of left foot M20.42 Active 956467616 Problem Type 2 diabetes mellitus with diabetic neuropathy, unspecified E11.40 Active 82699166 Problem Allergic rhinitis J30.9 Active 25234232 Problem Gastro-esophageal reflux disease without esophagitis K21.9 Active 837665978 Problem Emphysema, unspecified J43.9 Active 35634052 Problem OAB (overactive bladder) N32.81 Active 659827567 Problem Rheumatoid arthritis involving multiple sites with positive rheumatoid factor M05.79 Active 057530661 Problem Anxiety associated with depression F41.8 Active 469317277 Problem Primary insomnia F51.01 Active 1228543 Problem Chronic pain G89.29 Active 09280378 Problem Periodontitis K05.30 Active 04439660 ALLERGIES No Information ENCOUNTERS Encounter Location Date Diagnosis [facility] [address] [facility] [id number] [address] Dec, [facility] [address], [place] [address] Oct, [facility] [id number] [place] [address] Oct, Elevated white blood cell count, unspecified D72.829 [facility] [id number] [place] [address] Oct, Chronic pain G89.29 [facility] [id number] [place] [address] Oct, [facility] [id number] [place] [address] Oct, [facility] [id number] [place] [address] Oct, Orthostatic hypotension I95.1 ; Dizziness R42 and Neuropathy G62.9 [facility] [id number] [place] [address] Oct, Dizziness R42 ; Low back pain M54.5 ; Other chronic pain G89.29 ; Nausea R11.0 and Orthostatic hypotension I95.1 [facility] [id number] [place] [address] Sep, Rheumatoid arthritis involving multiple sites with positive rheumatoid factor M05.79 and Tobacco abuse Z72.0 [facility] [id number] [place] [address] Sep, Chronic pain G89.29 [facility] [id number] [place] [address] Aug, Type 2 diabetes mellitus with diabetic neuropathy, unspecified E11.40 ; Hypertension I10 ; Hyperlipemia E78.5 ; Gastro-esophageal reflux disease without esophagitis K21.9 ; Emphysema, unspecified J43.9 ; Anxiety associated with depression F41.8 ; Vitamin D deficiency E55.9 ; Chronic pain G89.29 ; Tobacco abuse Z72.0 ; Overweight (BMI 25.0-29.9) E66.3 ; 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 ; OAB (overactive bladder) N32.81 and Primary insomnia F51.01 [facility] [id number] [address] July, [facility] [id number] [place] [address] July, [facility] [id number] [place] [address] July, Chronic pain G89.29 [facility] [id number] [place] [address] July, [facility] [id number] [place] [address] July, Onychomycosis B35.1 ; Hammer toe of left foot M20.42 and Type 2 diabetes mellitus with diabetic neuropathy, unspecified E11.40 [facility] [id number] [place] [address] July, [facility] [id number] [place] [address] July, Chronic pain G89.29 and Neuropathy G62.9 [facility] [id number] [place] [address] July, [facility] [id number] [place] [address] July, [facility] [id number] [place] [address] Jun, [facility] [id number] [place] [address] Jun, Chronic pain G89.29 [facility] [id number] [place] [address] Jun, [facility] [address], [place] [address] Jun, [facility] [id number] [place] [address] Jun, Visit for TB skin test Z11.1 [facility] [id number] [place] [address] Jun, [facility] [id number] [place] [address] Jun, [facility] [id number] [place] [address] Jun, Tobacco abuse Z72.0 and Rheumatoid arthritis involving multiple sites with positive rheumatoid factor M05.79 [facility] [id number] [place] [address] Jun, Anxiety F41.9 ; Acute non-recurrent maxillary sinusitis J01.00 and Chronic pain G89.29 [facility] [id number] [place] [address] Jun, [facility] [id number] [place] [address] May, Rheumatoid arthritis involving multiple sites with positive rheumatoid factor M05.79 [facility] [address], [place] [address] May, Chronic pain G89.29 [facility] [address], [place] [address] May, [facility] [address], [place] [address] May, [facility] [id number] [place] [address] May, [facility] [address], [place] [address] May, Type 2 diabetes mellitus with diabetic neuropathy, unspecified E11.40 [facility] [address] [place] [address] May, Type 2 diabetes mellitus with diabetic neuropathy, unspecified E11.40 ; Emphysema, unspecified J43.9 ; Hypertension I10 ; Hyperlipemia E78.5 ; Vitamin D deficiency E55.9 ; Right medial knee pain M25.561 ; Controlled substance agreement signed Z79.899 ; Chronic pain G89.29 ; Allergic rhinitis J30.9 ; Anxiety associated with depression F41.8 ; Neuropathy G62.9 and Gastro- esophageal reflux disease without esophagitis K21.9 [facility] [id number] [place] [address] Apr, Chronic pain G89.29 [facility] [id number] [place] [address] 16 Apr, 2017 Other hammer toe(s) (acquired), left foot M20.42 ; Other hammer toe(s) (acquired), right foot M20.41 ; Type 2 diabetes mellitus with diabetic neuropathy, unspecified E11.40 and Onychomycosis B35.1 [facility] [id number] [place] [address] 2017 Gastro-esophageal reflux disease without esophagitis K21.9 [facility] [id number] [place] [address] Apr, Controlled substance agreement signed Z79.899 [facility] [id number] [place] [address] Mar, Chronic pain G89.29 [facility] [id number] [place] [address] Mar, Emphysema, unspecified J43.9 and Type 2 diabetes mellitus with diabetic neuropathy, unspecified E11.40 [facility] [id number] [place] [address] Mar, Dysuria R30.0 ; Vaginal candidiasis B37.3 and Acute nonintractable headache, unspecified headache type R51 [facility] [id number] [place] [address] Feb, Neuropathy G62.9 and Chronic pain G89.29 [facility] [id number] [place] [address] Feb, Gastro-esophageal reflux disease without esophagitis K21.9 [facility] [address] [address] Feb, [facility] [id number] [place] [address] Feb, Rheumatoid arthritis involving multiple sites with positive rheumatoid factor M05.79 and COPD with acute exacerbation J44.1 [facility] [id number] [place] [address] Feb, Vaginal odor N89.8 ; Vaginal irritation N89.8 ; Candidal dermatitis B37.2 and Screening breast examination Z12.31 [facility] [id number] [place] [address] Feb, [facility] [address] [address] Feb, [facility] [id number] [place] [address] Feb, [facility] [id number] [place] [address] Feb, COPD with exacerbation J44.1 ; Tobacco abuse counseling Z71.6 ; Tobacco abuse Z72.0 ; Rheumatoid arthritis involving multiple sites with positive rheumatoid factor M05.79 and Hyperlipemia E78.5 [facility] [id number] [place] [address] Feb, [facility] [id number] [place] [id number] Jan, [facility] [address] [address] Jan, Chronic pain G89.29 [facility] [id number] [place] [id number] 27 Jan, 2017 Dental examination Z01.20 [facility] [id number] [place] [address] 19 Jan, 2017 Back pain of lumbar region with sciatica M54.40 [facility] [address] [address] 15 Jan, 2017 Acute bacterial conjunctivitis of both eyes H10.33 [facility] [address] [address] 02 Jan, 2017 Chronic pain G89.29 [facility] [address] [address] Dec, Type 2 diabetes mellitus with diabetic neuropathy, unspecified E11.40 ; Hypertension I10 ; Hyperlipemia E78.5 ; Gastro-esophageal reflux disease without esophagitis K21.9 ; Anxiety associated with depression F41.8 ; Allergic rhinitis J30.9 ; Neuropathy G62.9 and Dependence on nocturnal oxygen therapy Z99.81 [facility] [address] [address] Dec, [facility] [id number] [place] [address] Dec, [facility] [address] [address] Dec, Encounter for immunization Z23 [facility] [id number] [place] [address] 05 Dec, 2016 Type 2 diabetes mellitus with diabetic neuropathy, unspecified E11.40 and Chronic pain G89.29 [facility] [address] [address] Nov, Gastro-esophageal reflux disease without esophagitis K21.9 [facility] [address] [address] Nov, Peripheral edema R60.9 and Chest pain in adult R07.9 [facility] [id number] [place] [address] 07 Nov, 2016 Chronic pain G89.29 [facility] [id number] [place] [address] Oct, [facility] [id number] [place] [address] Oct, [facility] [id number] [place] [address] 17 Oct, 2016 Rheumatoid arthritis with rheumatoid factor of right wrist without organ or systems involvement M05.731 [facility] [id number] [place] [address] 15 Oct, 2016 [facility] [id number] [place] [address] Oct, Acute exacerbation of chronic obstructive pulmonary disease (COPD) J44.1 and Canker sore K12.0 [facility] [id number] [place] [address] Oct, [facility] [id number] [place] [address] Oct, [facility] [id number] [place] [address] Oct, Chronic pain G89.29 [facility] [id number] [place] [id number] Oct, Dental examination Z01.20 [facility] [id number] [place] [address] Oct, Dental examination Z01.20 and Periodontitis K05.30 [facility] [id number] [place] [id number] Oct, Dental examination Z01.20 [facility] [id number] [place] [address] Sep, Abscess L02.91 [facility] [address], [place] [address] Sep, Dental examination Z01.20 [facility] [address], [place] [address] Sep, [facility] [id number] [place] [id number] Sep, Dental examination Z01.20 and Dental caries K02.9 [facility] [id number] [place] [address] Sep, Primary insomnia F51.01 and Anxiety associated with depression F41.8 [facility] [id number] [place] [address] Sep, Rheumatoid arthritis with rheumatoid factor of right wrist without organ or systems involvement M05.731 [facility] [id number] [place] [address] Sep, Chronic pain G89.29 [facility] [id number] [place] [address] Sep, Type 2 diabetes mellitus with diabetic neuropathy, unspecified E11.40 ; Emphysema, unspecified J43.9 ; Gastro-esophageal reflux disease without esophagitis K21.9 ; Hypertension I10 ; Hyperlipemia E78.5 ; Anxiety associated with depression F41.8 ; Chronic pain G89.29 ; Vitamin D deficiency E55.9 and Primary insomnia F51.01 [facility] [address], [place] [address] 16 Aug, 2016 Anxiety associated with depression F41.8 [facility] [id number] [place] [address] Aug, Chronic pain G89.29 and Neuropathy G62.9 [facility] [address] [place] [address] Aug, Type 2 diabetes mellitus with diabetic neuropathy, unspecified E11.40 ; Rheumatoid arthritis involving multiple sites with positive rheumatoid factor M05.79 ; Vitamin D deficiency E55.9 ; Anxiety associated with depression F41.8 and Primary insomnia F51.01 [facility] [id number] [place] [address] July, Emphysema, unspecified J43.9 [facility] [id number] [place] [address] July, Allergic rhinitis J30.9 [facility] [id number] [place] [address] July, Allergic rhinitis J30.9 ; Emphysema, unspecified J43.9 and Rheumatoid arthritis with rheumatoid factor of right wrist without organ or systems involvement M05.731 [facility] [id number] [place] [address] July, Neuropathy G62.9 and Chronic pain G89.29 [facility] [id number] [place] [address] July, Rheumatoid arthritis involving multiple sites with positive rheumatoid factor M05.79 [facility] [id number] [place] [address] Jun, [facility] [id number] [place] [address] Jun, Neuropathy G62.9 and Chronic pain G89.29 [facility] [id number] [place] [address] May, Neuropathy G62.9 and Chronic pain G89.29 [facility] [id number] [place] [address] May, [facility] [id number] [place] [address] May, [facility] [id number] [place] [address] May, Type 2 diabetes mellitus with diabetic [...] system involvement with positive rheumatoid factor M05.732 [facility] [address] [address] 14 Apr, 2016 Chronic pain G89.29 [facility] [address] [address] Mar, Gastro-esophageal reflux disease without esophagitis K21.9 [facility] [address] [address] Mar, [facility] [address] [address] Mar, Rheumatoid arthritis with rheumatoid factor of right wrist without organ or systems involvement M05.731 [facility] [address] [address] Mar, Chronic pain G89.29 [facility] [address] [address] Feb, Hyperlipemia E78.5 [facility] [address] [address] Feb, Abnormal breath sounds R06.89 ; COPD with exacerbation J44.1 and Fatigue, unspecified type R53.[address] [address] Feb, Neuropathy G62.9 ; Abnormal lung sounds R09.89 and Bronchitis J40 [facility] [address] [address] Feb, Bronchitis J40 [facility] [address] [place] [address] Feb, Chronic pain G89.29 [facility] [id number] [place] [address] Jan, Type 2 diabetes mellitus with diabetic neuropathy, unspecified E11.40 ; Rheumatoid arthritis with rheumatoid factor of right wrist without organ or systems involvement M05.731 and Hyperlipemia E78.5 [facility] [id number] [place] [address] Jan, Rheumatoid arthritis with rheumatoid factor of right wrist without organ or systems involvement M05.731 [facility] [id number] [place] [address] Jan, De Quervain's disease (radial styloid tenosynovitis) M65.4 ; Closed nondisplaced fracture of scaphoid of left wrist, unspecified portion of scaphoid, initial encounter S62.002A and Peripheral tear of medial meniscus of left knee, unspecified whether old or current tear, initial encounter S83.222A [facility] [id number] [place] [address] Jan, Hypertension I10 ; Type 2 diabetes mellitus with diabetic neuropathy, unspecified E11.40 ; Hyperlipemia E78.5 ; Allergic rhinitis J30.9 ; Neuropathy G62.9 ; Rheumatoid arthritis with rheumatoid factor of right wrist without organ or systems involvement M05.731 ; Acute non-recurrent maxillary sinusitis J01.00 and Chronic pain G89.29 [facility] [address] [address] Dec, [facility] [id number] [place] [address] Dec, [facility] [id number] [place] [address] Dec, Type 2 diabetes mellitus with diabetic neuropathy, unspecified E11.40 ; Emphysema, unspecified J43.9 ; Gastro-esophageal reflux disease without esophagitis K21.9 ; Hypertension I10 ; Hyperlipemia E78.5 ; Rheumatoid arthritis with rheumatoid factor of right wrist without organ or systems involvement M05.731 ; Elevated white blood cell count, unspecified D72.829 ; Acute non- recurrent frontal sinusitis J01.10 and Chronic pain G89.29 [place] [address] [address] Nov, [facility] [facility] [address] [address] Nov, Elevated white blood cell count, unspecified D72.829 ; Encounter for immunization Z23 ; Rheumatoid arthritis with rheumatoid factor of right wrist without organ or systems involvement M05.731 ; Injury of left hand S69.92XA ; Pain in left knee M25.562 and Other chronic pain G89.29 [place] [address] [address] Nov, [facility] [facility] [address] [address] Nov, [facility] [address] [address] Oct, [facility] [id number] [place] [address] Oct, Hyperlipemia E78.5 [facility] [address] [address] Oct, [facility] [id number] [place] [address] Oct, Type 2 diabetes mellitus with diabetic neuropathy, unspecified E11.40 ; Neuropathy G62.9 ; Hypertension I10 ; Chronic pain G89.29 and Hyperlipemia E78.5 [facility] [address] [address] Oct, Emphysema, unspecified J43.9 and Rheumatoid arthritis of left wrist without organ or system involvement with positive rheumatoid factor M05.732 [facility] [id number] [place] [address] Sep, Chronic pain syndrome G89.4 [facility] [id number] [place] [address] Sep, [facility] [id number] [place] [address] Sep, [facility] [id number] [place] [address] Sep, Closed nondisplaced fracture of scaphoid of left wrist, unspecified portion of scaphoid, initial encounter S62.002A [facility] [id number] [place] [address] Sep, Type 2 diabetes mellitus with diabetic neuropathy, unspecified E11.40 ; Hypertension I10 ; Hyperlipemia E78.5 and Acute non-recurrent maxillary sinusitis J01.00 [facility] [id number] [place] [address] Sep, [facility] [id number] [place] [id number] Sep, [place] [id number] [place] [phone] Sep, [place] [id number] [place] [phone] Sep, [place] [id number] [place] [phone] Aug, Epigastric pain R10.13 and Right upper quadrant pain R10.11 [place] [address] [id number] [place] [phone] Aug, Closed nondisplaced fracture of scaphoid of left wrist, unspecified portion of scaphoid, initial encounter S62.002A [place] [id number] [place] [phone] Aug, [facility] [id number] [place] [phone] Aug, [facility] [id number] [place] [phone] Aug, Shortness of breath R06.02 ; Epigastric pain R10.13 and Injury of left lower arm, initial encounter S59.912A [place] [address] [place] [id number] [place] [address] Aug, Coronary artery disease involving council heart with angina pectoris, unspecified vessel or lesion type I25.119 ; Pulmonary emphysema, unspecified emphysema type J43.9 and Snoring R06.83 [place] [address] [place] [id number] [place] [address] Aug, [place] [address] [place] [id number] [place] [address] Aug, Emphysema, unspecified J43.9 ; 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 and Hypertension I10 [place] [address] [place] [id number] [place] [address] July, [place] [address] [place] [id number] [place] [address] July, Closed nondisplaced fracture of scaphoid of left wrist, unspecified portion of scaphoid, initial encounter S62.002A [place] [id number] [place] [address] July, [place] [id number] [place] [address] July, Type 2 diabetes mellitus with diabetic neuropathy, unspecified E11.40 ; Emphysema, unspecified J43.9 ; 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 ; [...] agents L24.89 and Hospital discharge follow-up Z09 [facility] [address] [address] July, [facility] [address] [place] [place] [id number] [place] [address] July, Type 2 diabetes mellitus with diabetic neuropathy, unspecified E11.40 [facility] [address] [place] [id number] [place] [address] July, Type 2 diabetes mellitus with diabetic neuropathy, unspecified E11.40 and Rheumatoid arthritis of left wrist without organ or system involvement with positive rheumatoid factor M05.732 [facility] [address] [id number] [place] [address] July, [facility] [address] [place] [id number] [place] [address] July, [facility] [address] [place] [id number] [place] [address] Jun, [facility] [address] [place] [id number] [place] [address] Jun, [facility] [address], [place] [address] Jun, 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 [facility] [id number] [place] [address] Jun, [facility] [id number] [place] [address] Jun, 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 [facility] [address] [place] [id number] [place] [address] Jun, [facility] [address] [place] [id number] [place] [address] Jun, [facility] [facility] [address] [place] [id number] [place] [address] Jun, Encounter for PPD test Z11.1 ; Rheumatoid arthritis with rheumatoid factor of right wrist without organ or systems involvement M05.731 and Rheumatoid arthritis of left wrist without organ or system involvement with positive rheumatoid factor M05.732 [facility] [address] [place] [id number] [place] [address] Jun, Type 2 diabetes mellitus with diabetic neuropathy, unspecified E11.40 [place] [address] [place] [id number] [place] [address] May, Type 2 diabetes mellitus with diabetic neuropathy, unspecified E11.40 ; Emphysema, unspecified J43.9 ; Rheumatoid arthritis with rheumatoid factor of right wrist without organ or systems involvement M05.731 ; Rheumatoid arthritis of left wrist without organ or system involvement with positive rheumatoid factor M05.732 and Chronic pain G89.29 [place] [address] [address] May, [place] [facility] [address] [place] [id number] [place] [address] May, Swelling of hand joint M25.449 ; Ankle swelling M25.473 and Joint pain M25.50 [facility] [address] [place] [id number] [place] [address] May, Emphysema, unspecified J43.9 [facility] [address] [place] [id number] [place] [address] May, Gastroenteritis K52.9 and Hypertension I10 [facility] [address] [place] [id number] [place] [address] Apr, [facility] [facility] [address] [place] [id number] [place] [address] Apr, [facility] [facility] [address] [place] [id number] [place] [address] Apr, [place] [address] [place] [address] 18 Apr, 2015 Type 2 diabetes mellitus with diabetic neuropathy, unspecified E11.40 ; Emphysema, unspecified J43.9 ; 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 ; Migraine without aura, not intractable, with status migrainosus G43.001 ; Gastro-esophageal reflux disease without esophagitis K21.9 ; CAD (coronary artery disease) I25.10 ; Hypertension I10 ; Hyperlipemia E78.5 ; Allergic rhinitis J30.9 ; Neuropathy G62.9 ; Anxiety associated with depression F41.8 and Injury of left hand S69.92XA [place] [address] [address] Apr, [place] [address] [address] Apr, [place] [address] [address] Apr, Type 2 diabetes mellitus with diabetic neuropathy, unspecified E11.40 ; Emphysema, unspecified J43.9 ; Essential (primary) hypertension I10 ; 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 ; Gastro-esophageal reflux disease without esophagitis K21.9 ; CAD (coronary artery disease) I25.10 ; Hyperlipemia E78.5 ; Hypertension I10 ; History of solitary pulmonary nodule Z87.898 ; Allergic rhinitis J30.9 ; Chronic pain G89.29 and Depression with anxiety F41.8 [facility] [address] [place] [id number] [place] [address] Mar, [place] [address] [address] Mar, Allergic rhinitis J30.9 ; URI (upper respiratory infection) J06.9 and Other viral agents as the cause of diseases classified elsewhere B97.89 [facility] [address] [place] [id number] [place] [address] Feb, Acute nasopharyngitis [common cold] J00 and Acute diarrhea R19.7 [place] [address] [place] [id number] [place] [address] Feb, Depression F32.9 [place] [address] [address] Jan, Otitis media, right H66.[address] [address] Jan, [place] [address] [address] Jan, Type 2 diabetes mellitus with diabetic neuropathy, unspecified E11.40 [place] [address] [address] Jan, [place] [address] [address] Jan, Hyperlipemia E78.5 [place] [address] [address] Jan, Type 2 diabetes mellitus with diabetic neuropathy, unspecified E11.40 ; Emphysema, unspecified J43.9 ; CAD (coronary artery disease) I25.10 and Hyperlipemia E78.5 [place] [id number] [place] [address] Dec, Allergic rhinitis J30.9 and Fungal infection B49 [place] [address] [place] [id number] [place] [address] Dec, [place] [address] [address] Dec, [place] [address] [address] Dec, Chest pain R07.9 ; CAD (coronary artery disease) I25.10 ; Hypertension I10 and Hyperlipemia E78.5 [place] [address] [address] Dec, Pain in thoracic spine M54.6 ; Gastro-esophageal reflux disease without esophagitis K21.9 ; Emphysema, unspecified J43.9 and Migraine without aura, not intractable, with status migrainosus G43.001 [place] [id number] [place] [address] Dec, [place] [address] [place] [id number] [place] [address] Nov, Influenza vaccine administered V04.81 [place] [address] [place] [id number] [place] [address] Nov, [place] [address] [address] Sep, [place] [address] [place] [id number] [place] [address] Sep, [place] [address] [address] Sep, CAD (coronary artery disease) 414.00 and Diabetes type 2, uncontrolled 250.02 [place] [address] [address] Sep, CAD (coronary artery disease) 414.00 ; Diabetes type 2, uncontrolled 250.02 and Migraine 346.90 IMMUNIZATIONS No Known Immunizations SOCIAL HISTORY Never Assessed REASON FOR VISIT Prior Authorization Request PLAN OF CARE VITAL SIGNS MEDICATIONS Unknown Medications RESULTS No Results PROCEDURES No Known procedures INSTRUCTIONS MEDICATIONS ADMINISTERED No Known Medications MEDICAL (GENERAL) HISTORY Type Description Date Medical History COPD Medical History Type 2 Diabetes Medical History HTN Medical History Cardiac stents July 2010 post ID-stent to LAD Medical History Rheumatoid Arthritis Medical History 04/2016---Echo- 60%//mild hypertrophy at the base of the septum, mild mitral regurg/ mild tricuspid regurg. PAP about 10-15 mmHg Medical History 04/2016------Normal Lexiscan Medical History Elevated white blood cell count, unspecified Medical History Atherosclerotic heart disease of council coronary artery without angina pectoris Medical History [...]
--- OUTSIDE RECORDS SUMMARY | 2018-08-23 16:59 | XMS REPORT ---
Author Author TURPINROB MoranELE Organization [facility] Address [address] [place] [address] Care Team Providers Care Manager [employer] Name Role Phone TURPINCLAU Moran Unavailable PROBLEMS Type Condition ICD9-CM Code [id number] Code Onset Dates Condition Status SNOMED Code Problem Dependence on nocturnal oxygen therapy Z99.81 Active 11547364494921 Problem Other hammer toe(s) (acquired), left foot M20.42 Active 94542399 Problem Neuropathy G62.9 Active 624783153 Problem Elevated white blood cell count, unspecified D72.829 Active 310448625 Problem Hypertension I10 Active 35708602 Problem Other chronic pain G89.29 Active 83995071 Problem Hyperlipemia E78.5 Active 10347569 Problem Vitamin D deficiency E55.9 Active 64148896 Problem Tobacco abuse Z72.0 Active 394812610 Problem Other hammer toe(s) (acquired), right foot M20.41 Active 642229977 Problem Atherosclerotic heart disease of [place] coronary artery 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.10 Active 140046376181990 Problem Hammer toe of left foot M20.42 Active 911821815 Problem Type 2 diabetes mellitus with diabetic neuropathy, unspecified E11.40 Active 60606464 Problem Allergic rhinitis J30.9 Active 00853003 Problem Gastro-esophageal reflux disease without esophagitis K21.9 Active 777569725 Problem Emphysema, unspecified J43.9 Active 93509350 Problem OAB (overactive bladder) N32.81 Active 427207634 Problem Rheumatoid arthritis involving multiple sites with positive rheumatoid factor M05.79 Active 324954697 Problem Anxiety associated with depression F41.8 Active 717982939 Problem Primary insomnia F51.01 Active 3886578 Problem Chronic pain G89.29 Active 57970005 Problem Periodontitis K05.30 Active 50344018 ALLERGIES No Information ENCOUNTERS Encounter Location Date Diagnosis [facility] [address] [facility] [id number] [address] Dec, [facility] [address] [address] Oct, [facility] [id number] [place] [address] Oct, Elevated white blood cell count, unspecified D72.829 [facility] [id number] [place] [address] Oct, Chronic pain G89.29 [facility] [id number] [place] [address] Oct, [facility] [id number] [place] [address] Oct, [facility] [id number] [place] [address] Oct, Orthostatic hypotension I95.1 ; Dizziness R42 and Neuropathy G62.9 [facility] [address] [place] [address] Oct, Dizziness R42 ; Low back pain M54.5 ; Other chronic pain G89.29 ; Nausea R11.0 and Orthostatic hypotension I95.1 [facility] [address] [place] [address] Sep, Rheumatoid arthritis involving multiple sites with positive rheumatoid factor M05.79 and Tobacco abuse Z72.0 [facility] [address] [place] [address] Sep, Chronic pain G89.29 [facility] [id number] [place] [address] Aug, Type 2 diabetes mellitus with diabetic neuropathy, unspecified E11.40 ; Hypertension I10 ; Hyperlipemia E78.5 ; Gastro-esophageal reflux disease without esophagitis K21.9 ; Emphysema, unspecified J43.9 ; Anxiety associated with depression F41.8 ; Vitamin D deficiency E55.9 ; Chronic pain G89.29 ; Tobacco abuse Z72.0 ; Overweight (BMI 25.0-29.9) E66.3 ; Atherosclerotic heart disease of [place] coronary artery 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.10 ; OAB (overactive bladder) N32.81 and Primary insomnia F51.01 [facility] [id number] [address] July, [facility] [id number] [place] [address] July, [facility] [id number] [place] [address] July, Chronic pain G89.29 [facility] [id number] [place] [address] July, [facility] [id number] [place] [address] July, Onychomycosis B35.1 ; Hammer toe of left foot M20.42 and Type 2 diabetes mellitus with diabetic neuropathy, unspecified E11.40 [facility] [id number] [place] [address] July, [facility] [id number] [place] [address] July, Chronic pain G89.29 and Neuropathy G62.9 [facility] [id number] [place] [address] July, [facility] [id number] [place] [address] July, [facility] [id number] [place] [address] Jun, [facility] [id number] [place] [address] Jun, Chronic pain G89.29 [facility] [id number] [place] [address] Jun, [facility] [address] [address] Jun, [facility] [id number] [place] [address] Jun, Visit for TB skin test Z11.1 [facility] [address] [place] [address] Jun, [facility] [id number] [place] [address] Jun, [facility] [id number] [place] [address] Jun, Tobacco abuse Z72.0 and Rheumatoid arthritis involving multiple sites with positive rheumatoid factor M05.79 [facility] [id number] [place] [address] Jun, Anxiety F41.9 ; Acute non-recurrent maxillary sinusitis J01.00 and Chronic pain G89.29 [facility] [address] [place] [address] Jun, [facility] [id number] [place] [address] May, Rheumatoid arthritis involving multiple sites with positive rheumatoid factor M05.79 [facility] [address] [address] May, Chronic pain G89.29 [facility] [address] [address] May, [facility] [address] [address] May, [facility] [id number] [place] [address] May, [facility] [address] [address] May, Type 2 diabetes mellitus with diabetic neuropathy, unspecified E11.40 [facility] [address] [place] [address] May, Type 2 diabetes mellitus with diabetic neuropathy, unspecified E11.40 ; Emphysema, unspecified J43.9 ; Hypertension I10 ; Hyperlipemia E78.5 ; Vitamin D deficiency E55.9 ; Right medial knee pain M25.561 ; Controlled substance agreement signed Z79.899 ; Chronic pain G89.29 ; Allergic rhinitis J30.9 ; Anxiety associated with depression F41.8 ; Neuropathy G62.9 and Gastro- esophageal reflux disease without esophagitis K21.9 [facility] [id number] [place] [address] Apr, Chronic pain G89.29 [facility] [id number] [place] [address] 16 Apr, 2017 Other hammer toe(s) (acquired), left foot M20.42 ; Other hammer toe(s) (acquired), right foot M20.41 ; Type 2 diabetes mellitus with diabetic neuropathy, unspecified E11.40 and Onychomycosis B35.1 [facility] [id number] [place] [address] 2017 Gastro-esophageal reflux disease without esophagitis K21.9 [facility] [id number] [place] [address] Apr, Controlled substance agreement signed Z79.899 [facility] [id number] [place] [address] Mar, Chronic pain G89.29 [facility] [id number] [place] [address] Mar, Emphysema, unspecified J43.9 and Type 2 diabetes mellitus with diabetic neuropathy, unspecified E11.40 [facility] [id number] [place] [address] Mar, Dysuria R30.0 ; Vaginal candidiasis B37.3 and Acute nonintractable headache, unspecified headache type R51 [facility] [id number] [place] [address] Feb, Neuropathy G62.9 and Chronic pain G89.29 [facility] [id number] [place] [address] Feb, Gastro-esophageal reflux disease without esophagitis K21.9 [facility] [address] [address] Feb, [facility] [id number] [place] [address] Feb, Rheumatoid arthritis involving multiple sites with positive rheumatoid factor M05.79 and COPD with acute exacerbation J44.1 [facility] [id number] [place] [address] Feb, Vaginal odor N89.8 ; Vaginal irritation N89.8 ; Candidal dermatitis B37.2 and Screening breast examination Z12.31 [facility] [id number] [place] [address] Feb, [facility] [facility] [address] [address] Feb, [facility] [id number] [place] [address] Feb, [facility] [id number] [place] [address] Feb, COPD with exacerbation J44.1 ; Tobacco abuse counseling Z71.6 ; Tobacco abuse Z72.0 ; Rheumatoid arthritis involving multiple sites with positive rheumatoid factor M05.79 and Hyperlipemia E78.5 [facility] [id number] [place] [address] Feb, [facility] [address] [place] [phone] Jan, [place] [address] [address] Jan, Chronic pain G89.29 [facility] [address] [place] [id number] 27 Jan, 2017 Dental examination Z01.20 [facility] [id number] [place] [address] 19 Jan, 2017 Back pain of lumbar region with sciatica M54.40 [facility] [address] [address] 15 Jan, 2017 Acute bacterial conjunctivitis of both eyes H10.33 [place] [address] [address] 02 Jan, 2017 Chronic pain G89.29 [place] [address] [address] Dec, Type 2 diabetes mellitus with diabetic neuropathy, unspecified E11.40 ; Hypertension I10 ; Hyperlipemia E78.5 ; Gastro-esophageal reflux disease without esophagitis K21.9 ; Anxiety associated with depression F41.8 ; Allergic rhinitis J30.9 ; Neuropathy G62.9 and Dependence on nocturnal oxygen therapy Z99.81 [place] [address] [address] Dec, [facility] [id number] [place] [address] Dec, [place] [address] [address] Dec, Encounter for immunization Z23 [facility] [id number] [place] [address] 05 Dec, 2016 Type 2 diabetes mellitus with diabetic neuropathy, unspecified E11.40 and Chronic pain G89.29 [place] [address] [address] Nov, Gastro-esophageal reflux disease without esophagitis K21.9 [facility] [address] [address] Nov, Peripheral edema R60.9 and Chest pain in adult R07.9 [facility] [id number] [place] [address] 07 Nov, 2016 Chronic pain G89.29 [facility] [id number] [place] [address] Oct, [facility] [id number] [place] [address] Oct, [facility] [id number] [place] [address] 17 Oct, 2016 Rheumatoid arthritis with rheumatoid factor of right wrist without organ or systems involvement M05.731 [facility] [id number] [place] [address] 15 Oct, 2016 [facility] [id number] [place] [address] Oct, Acute exacerbation of chronic obstructive pulmonary disease (COPD) J44.1 and Canker sore K12.0 [facility] [id number] [place] [address] Oct, [facility] [id number] [place] [address] Oct, [facility] [id number] [place] [address] Oct, Chronic pain G89.29 [facility] [id number] [place] [id number] Oct, Dental examination Z01.20 [facility] [id number] [place] [address] Oct, Dental examination Z01.20 and Periodontitis K05.30 [facility] [id number] [place] [id number] Oct, Dental examination Z01.20 [facility] [id number] [place] [address] Sep, Abscess L02.91 [facility] [address] [address] Sep, Dental examination Z01.20 [facility] [address] [address] Sep, [facility] [address] [place] [id number] Sep, Dental examination Z01.20 and Dental caries K02.9 [facility] [id number] [place] [address] Sep, Primary insomnia F51.01 and Anxiety associated with depression F41.8 [facility] [id number] [place] [address] Sep, Rheumatoid arthritis with rheumatoid factor of right wrist without organ or systems involvement M05.731 [facility] [id number] [place] [address] Sep, Chronic pain G89.29 [facility] [id number] [place] [address] Sep, Type 2 diabetes mellitus with diabetic neuropathy, unspecified E11.40 ; Emphysema, unspecified J43.9 ; Gastro-esophageal reflux disease without esophagitis K21.9 ; Hypertension I10 ; Hyperlipemia E78.5 ; Anxiety associated with depression F41.8 ; Chronic pain G89.29 ; Vitamin D deficiency E55.9 and Primary insomnia F51.01 [place] [address] [address] 16 Aug, 2016 Anxiety associated with depression F41.8 [facility] [id number] [place] [address] Aug, Chronic pain G89.29 and Neuropathy G62.9 [facility] [address] [place] [address] Aug, Type 2 diabetes mellitus with diabetic neuropathy, unspecified E11.40 ; Rheumatoid arthritis involving multiple sites with positive rheumatoid factor M05.79 ; Vitamin D deficiency E55.9 ; Anxiety associated with depression F41.8 and Primary insomnia F51.01 [facility] [id number] [place] [address] July, Emphysema, unspecified J43.9 [facility] [id number] [place] [address] July, Allergic rhinitis J30.9 [facility] [address] [place] [address] July, Allergic rhinitis J30.9 ; Emphysema, unspecified J43.9 and Rheumatoid arthritis with rheumatoid factor of right wrist without organ or systems involvement M05.731 [facility] [id number] [place] [address] July, Neuropathy G62.9 and Chronic pain G89.29 [facility] [id number] [place] [address] July, Rheumatoid arthritis involving multiple sites with positive rheumatoid factor M05.79 [facility] [id number] [place] [address] Jun, [facility] [id number] [place] [address] Jun, Neuropathy G62.9 and Chronic pain G89.29 [facility] [id number] [place] [address] May, Neuropathy G62.9 and Chronic pain G89.29 [facility] [place] [id number] [place] [address] May, [facility] [id number] [place] [address] May, [facility] [id number] [place] [address] May, Type 2 diabetes mellitus with diabetic [...] system involvement with positive rheumatoid factor M05.732 [facility] [address] [address] 14 Apr, 2016 Chronic pain G89.29 [facility] [address] [address] Mar, Gastro-esophageal reflux disease without esophagitis K21.9 [facility] [facility] [address] [address] Mar, [place] [address] [address] Mar, Rheumatoid arthritis with rheumatoid factor of right wrist without organ or systems involvement M05.731 [facility] [facility] [address] [address] Mar, Chronic pain G89.29 [facility] [address] [address] Feb, Hyperlipemia E78.5 [facility] [facility] [address] [address] Feb, Abnormal breath sounds R06.89 ; COPD with exacerbation J44.1 and Fatigue, unspecified type R53.[address] [address] Feb, Neuropathy G62.9 ; Abnormal lung sounds R09.89 and Bronchitis J40 [facility] [address] [address] Feb, Bronchitis J40 [place] [address] [place] [address] Feb, Chronic pain G89.29 [facility] [id number] [place] [address] Jan, Type 2 diabetes mellitus with diabetic neuropathy, unspecified E11.40 ; Rheumatoid arthritis with rheumatoid factor of right wrist without organ or systems involvement M05.731 and Hyperlipemia E78.5 [facility] [facility] [id number] [place] [address] Jan, Rheumatoid arthritis with rheumatoid factor of right wrist without organ or systems involvement M05.731 [facility] [id number] [place] [address] Jan, De Quervain's disease (radial styloid tenosynovitis) M65.4 ; Closed nondisplaced fracture of scaphoid of left wrist, unspecified portion of scaphoid, initial encounter S62.002A and Peripheral tear of medial meniscus of left knee, unspecified whether old or current tear, initial encounter S83.222A [facility] [id number] [place] [address] Jan, Hypertension I10 ; Type 2 diabetes mellitus with diabetic neuropathy, unspecified E11.40 ; Hyperlipemia E78.5 ; Allergic rhinitis J30.9 ; Neuropathy G62.9 ; Rheumatoid arthritis with rheumatoid factor of right wrist without organ or systems involvement M05.731 ; Acute non-recurrent maxillary sinusitis J01.00 and Chronic pain G89.29 [facility] [address] [address] Dec, [facility] [id number] [place] [address] Dec, [facility] [id number] [place] [address] Dec, Type 2 diabetes mellitus with diabetic neuropathy, unspecified E11.40 ; Emphysema, unspecified J43.9 ; Gastro-esophageal reflux disease without esophagitis K21.9 ; Hypertension I10 ; Hyperlipemia E78.5 ; Rheumatoid arthritis with rheumatoid factor of right wrist without organ or systems involvement M05.731 ; Elevated white blood cell count, unspecified D72.829 ; Acute non- recurrent frontal sinusitis J01.10 and Chronic pain G89.29 [place] [address] [address] Nov, [place] [address] [address] Nov, Elevated white blood cell count, unspecified D72.829 ; Encounter for immunization Z23 ; Rheumatoid arthritis with rheumatoid factor of right wrist without organ or systems involvement M05.731 ; Injury of left hand S69.92XA ; Pain in left knee M25.562 and Other chronic pain G89.29 [facility] [address] [address] Nov, [place] [address] [address] Nov, [place] [address] [address] Oct, [facility] [id number] [place] [address] Oct, Hyperlipemia E78.5 [facility] [facility] [address] [address] Oct, [facility] [id number] [place] [address] Oct, Type 2 diabetes mellitus with diabetic neuropathy, unspecified E11.40 ; Neuropathy G62.9 ; Hypertension I10 ; Chronic pain G89.29 and Hyperlipemia E78.5 [place] [address] [address] Oct, Emphysema, unspecified J43.9 and Rheumatoid arthritis of left wrist without organ or system involvement with positive rheumatoid factor M05.732 [facility] [id number] [place] [address] Sep, Chronic pain syndrome G89.4 [facility] [id number] [place] [address] Sep, [facility] [id number] [place] [address] Sep, [facility] [id number] [place] [address] Sep, Closed nondisplaced fracture of scaphoid of left wrist, unspecified portion of scaphoid, initial encounter S62.002A [place] [id number] [place] [address] Sep, Type 2 diabetes mellitus with diabetic neuropathy, unspecified E11.40 ; Hypertension I10 ; Hyperlipemia E78.5 and Acute non-recurrent maxillary sinusitis J01.00 [facility] [id number] [place] [address] Sep, [place] [id number] [place] [address] Sep, [facility] [id number] [place] [address] Sep, [facility] [id number] [place] [id number] Sep, [place] [id number] [place] [address] Aug, Epigastric pain R10.13 and Right upper quadrant pain R10.11 [place] [id number] [place] [id number] Aug, Closed nondisplaced fracture of scaphoid of left wrist, unspecified portion of scaphoid, initial encounter S62.002A [place] [id number] [place] [id number] Aug, [facility] [id number] [place] [id number] Aug, [facility] [id number] [place] [id number] Aug, Shortness of breath R06.02 ; Epigastric pain R10.13 and Injury of left lower arm, initial encounter S59.912A [place] [id number] [place] [phone] Aug, Coronary artery disease involving [place] heart with angina pectoris, unspecified vessel or lesion type I25.119 ; Pulmonary emphysema, unspecified emphysema type J43.9 and Snoring R06.83 [place] [id number] [place] [phone] Aug, [place] [id number] [place] [id number] Aug, Emphysema, unspecified J43.9 ; Atherosclerotic heart disease of [place] coronary artery 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.10 and Hypertension I10 [facility] [id number] [place] [address] July, [facility] [id number] [place] [address] July, Closed nondisplaced fracture of scaphoid of left wrist, unspecified portion of scaphoid, initial encounter S62.002A [facility] [address] [place] [address] July, [facility] [address] [place] [address] July, Type 2 diabetes mellitus with diabetic neuropathy, unspecified E11.40 ; Emphysema, unspecified J43.9 ; Atherosclerotic heart disease of [place] coronary artery 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.10 ; [...] agents L24.89 and Hospital discharge follow-up Z09 [facility] [address] [address] July, [facility] [id number] [place] [address] July, Type 2 diabetes mellitus with diabetic neuropathy, unspecified E11.40 [facility] [id number] [place] [address] July, Type 2 diabetes mellitus with diabetic neuropathy, unspecified E11.40 and Rheumatoid arthritis of left wrist without organ or system involvement with positive rheumatoid factor M05.732 [facility] [id number] [place] [address] July, [facility] [id number] [place] [address] July, [facility] [id number] [place] [address] Jun, [facility] [id number] [place] [address] Jun, [facility] [address] [address] Jun, 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 [facility] [id number] [place] [address] Jun, [facility] [address] [place] [address] Jun, 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 [facility] [id number] [place] [address] Jun, [facility] [id number] [place] [address] Jun, [facility] [id number] [place] [address] Jun, Encounter for PPD test Z11.1 ; Rheumatoid arthritis with rheumatoid factor of right wrist without organ or systems involvement M05.731 and Rheumatoid arthritis of left wrist without organ or system involvement with positive rheumatoid factor M05.732 [facility] [id number] [place] [address] Jun, Type 2 diabetes mellitus with diabetic neuropathy, unspecified E11.40 [facility] [id number] [place] [address] May, Type 2 diabetes mellitus with diabetic neuropathy, unspecified E11.40 ; Emphysema, unspecified J43.9 ; Rheumatoid arthritis with rheumatoid factor of right wrist without organ or systems involvement M05.731 ; Rheumatoid arthritis of left wrist without organ or system involvement with positive rheumatoid factor M05.732 and Chronic pain G89.29 [facility] [address] [address] May, [facility] [id number] [place] [address] May, Swelling of hand joint M25.449 ; Ankle swelling M25.473 and Joint pain M25.50 [facility] [id number] [place] [address] May, Emphysema, unspecified J43.9 [facility] [id number] [place] [address] May, Gastroenteritis K52.9 and Hypertension I10 [facility] [id number] [place] [address] Apr, [facility] [id number] [place] [address] Apr, [facility] [id number] [place] [address] Apr, [facility] [address] [place] [address] 18 Apr, 2015 Type 2 diabetes mellitus with diabetic neuropathy, unspecified E11.40 ; Emphysema, unspecified J43.9 ; Atherosclerotic heart disease of [place] coronary artery 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.10 ; Migraine without aura, not intractable, with status migrainosus G43.001 ; Gastro-esophageal reflux disease without esophagitis K21.9 ; CAD (coronary artery disease) I25.10 ; Hypertension I10 ; Hyperlipemia E78.5 ; Allergic rhinitis J30.9 ; Neuropathy G62.9 ; Anxiety associated with depression F41.8 and Injury of left hand S69.92XA [facility] [address] [address] Apr, [facility] [address] [address] Apr, [facility] [address] [address] Apr, Type 2 diabetes mellitus with diabetic neuropathy, unspecified E11.40 ; Emphysema, unspecified J43.9 ; Essential (primary) hypertension I10 ; Atherosclerotic heart disease of [place] coronary artery 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.10 ; Gastro-esophageal reflux disease without esophagitis K21.9 ; CAD (coronary artery disease) I25.10 ; Hyperlipemia E78.5 ; Hypertension I10 ; History of solitary pulmonary nodule Z87.898 ; Allergic rhinitis J30.9 ; Chronic pain G89.29 and Depression with anxiety F41.8 [facility] [id number] [place] [address] Mar, [facility] [address] [address] Mar, Allergic rhinitis J30.9 ; URI (upper respiratory infection) J06.9 and Other viral agents as the cause of diseases classified elsewhere B97.89 [facility] [id number] [place] [address] Feb, Acute nasopharyngitis [common cold] J00 and Acute diarrhea R19.7 [facility] [id number] [place] [address] Feb, Depression F32.9 [facility] [address] [address] Jan, Otitis media, right H66.[address] [address] Jan, [facility] [address] [address] Jan, Type 2 diabetes mellitus with diabetic neuropathy, unspecified E11.40 [facility] [address] [address] Jan, [facility] [address] [address] Jan, Hyperlipemia E78.5 [facility] [address] [address] Jan, Type 2 diabetes mellitus with diabetic neuropathy, unspecified E11.40 ; Emphysema, unspecified J43.9 ; CAD (coronary artery disease) I25.10 and Hyperlipemia E78.5 [place] [id number] [place] [address] Dec, Allergic rhinitis J30.9 and Fungal infection B49 [facility] [id number] [place] [address] Dec, [facility] [address] [address] Dec, [facility] [address] [address] Dec, Chest pain R07.9 ; CAD (coronary artery disease) I25.10 ; Hypertension I10 and Hyperlipemia E78.5 [facility] [address] [address] Dec, Pain in thoracic spine M54.6 ; Gastro-esophageal reflux disease without esophagitis K21.9 ; Emphysema, unspecified J43.9 and Migraine without aura, not intractable, with status migrainosus G43.001 [facility] [address] [place] [address] Dec, [facility] [id number] [place] [address] Nov, Influenza vaccine administered V04.81 [facility] [id number] [place] [address] Nov, [facility] [address] [address] Sep, [facility] [id number] [place] [address] Sep, [facility] [address] [address] Sep, CAD (coronary artery disease) 414.00 and Diabetes type 2, uncontrolled 250.02 [facility] [address] [address] Sep, CAD (coronary artery disease) 414.00 ; Diabetes type 2, uncontrolled 250.02 and Migraine 346.90 IMMUNIZATIONS No Known Immunizations SOCIAL HISTORY Never Assessed REASON FOR VISIT medication refill request. [facility] to refill a request o n Hydrocodone. She is leaving town and it is urgent that she gets this medicatio n as soon as possible. [facility]ACS appropriate and request sent to Susan Turpin at this t [facility]. Rogelio RN PLAN OF CARE VITAL SIGNS MEDICATIONS Unknown Medications RESULTS No Results PROCEDURES No Known procedures INSTRUCTIONS MEDICATIONS ADMINISTERED No Known Medications MEDICAL (GENERAL) HISTORY Type Description Date Medical History COPD Medical History Type 2 Diabetes Medical History HTN Medical History Cardiac stents July 2010 post VT-stent to LAD Medical History Rheumatoid Arthritis Medical History 04/2016---Echo- 60%//mild hypertrophy at the base of the septum, mild mitral regurg/ mild tricuspid regurg. PAP about 10-15 mmHg Medical History 04/2016------Normal Lexiscan Medical History Elevated white blood cell count, unspecified Medical History Atherosclerotic heart disease of [place] coronary artery without angina pectoris Medical History [...]
--- OUTSIDE RECORDS SUMMARY | 2018-08-23 17:00 | XMS REPORT ---
Author Author DELEONROB MoranELE Organization [facility] Address [address] [place] [address] Care Team Providers Care Aix System Administrator Name Role Phone DELEONCLAU Moran Unavailable PROBLEMS Type Condition ICD9-CM Code ROL37-MG Code Onset Dates Condition Status SNOMED Code Problem Dependence on nocturnal oxygen therapy Z99.81 Active 14303300139158 Problem Other hammer toe(s) (acquired), left foot M20.42 Active 80108164 Problem Neuropathy G62.9 Active 785794701 Problem Elevated white blood cell count, unspecified D72.829 Active 185460246 Problem Hypertension I10 Active 83620264 Problem Other chronic pain G89.29 Active 40432038 Problem Hyperlipemia E78.5 Active 44204412 Problem Vitamin D deficiency E55.9 Active 20394223 Problem Tobacco abuse Z72.0 Active 883138960 Problem Other hammer toe(s) (acquired), right foot M20.41 Active 536549550 Problem Atherosclerotic heart disease of [place] coronary artery 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.10 Active 452433383109997 Problem Hammer toe of left foot M20.42 Active 879629003 Problem Type 2 diabetes mellitus with diabetic neuropathy, unspecified E11.40 Active 58413636 Problem Allergic rhinitis J30.9 Active 56111890 Problem Gastro-esophageal reflux disease without esophagitis K21.9 Active 074241224 Problem Emphysema, unspecified J43.9 Active 46352393 Problem OAB (overactive bladder) N32.81 Active 457605770 Problem Rheumatoid arthritis involving multiple sites with positive rheumatoid factor M05.79 Active 487530983 Problem Anxiety associated with depression F41.8 Active 178315772 Problem Primary insomnia F51.01 Active 9020303 Problem Chronic pain G89.29 Active 54138446 Problem Periodontitis K05.30 Active 87818074 ALLERGIES No Information ENCOUNTERS Encounter Location Date Diagnosis [facility] [address] [facility] [id number] [address] Dec, [facility] [address], [place] [address] Oct, [facility] [id number] [place] [address] Oct, Elevated white blood cell count, unspecified D72.829 [place] [id number] [place] [address] Oct, Chronic pain G89.29 [facility] [id number] [place] [address] Oct, [facility] [id number] [place] [address] Oct, [facility] [id number] [place] [address] Oct, Orthostatic hypotension I95.1 ; Dizziness R42 and Neuropathy G62.9 [facility] [id number] [place] [address] Oct, Dizziness R42 ; Low back pain M54.5 ; Other chronic pain G89.29 ; Nausea R11.0 and Orthostatic hypotension I95.1 [facility] [address] [place] [address] Sep, Rheumatoid arthritis involving multiple sites with positive rheumatoid factor M05.79 and Tobacco abuse Z72.0 [facility] [address] [place] [address] Sep, Chronic pain G89.29 [facility] [place] [id number] [place] [address] Aug, Type 2 diabetes mellitus with diabetic neuropathy, unspecified E11.40 ; Hypertension I10 ; Hyperlipemia E78.5 ; Gastro-esophageal reflux disease without esophagitis K21.9 ; Emphysema, unspecified J43.9 ; Anxiety associated with depression F41.8 ; Vitamin D deficiency E55.9 ; Chronic pain G89.29 ; Tobacco abuse Z72.0 ; Overweight (BMI 25.0-29.9) E66.3 ; Atherosclerotic heart disease of [place] coronary artery 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.10 ; OAB (overactive bladder) N32.81 and Primary insomnia F51.01 [facility] [id number] [address] July, [facility] [id number] [place] [address] July, [facility] [id number] [place] [address] July, Chronic pain G89.29 [facility] [id number] [place] [address] July, [facility] [id number] [place] [address] July, Onychomycosis B35.1 ; Hammer toe of left foot M20.42 and Type 2 diabetes mellitus with diabetic neuropathy, unspecified E11.40 [facility] [id number] [place] [address] July, [facility] [id number] [place] [address] July, Chronic pain G89.29 and Neuropathy G62.9 [facility] [id number] [place] [address] July, [facility] [id number] [place] [address] July, [facility] [id number] [place] [address] Jun, [facility] [id number] [place] [address] Jun, Chronic pain G89.29 [facility] [id number] [place] [address] Jun, [facility] [address], [place] [address] Jun, [facility] [id number] [place] [address] Jun, Visit for TB skin test Z11.1 [facility] [address] [place] [address] Jun, [facility] [id number] [place] [address] Jun, [facility] [id number] [place] [address] Jun, Tobacco abuse Z72.0 and Rheumatoid arthritis involving multiple sites with positive rheumatoid factor M05.79 [facility] [id number] [place] [address] Jun, Anxiety F41.9 ; Acute non-recurrent maxillary sinusitis J01.00 and Chronic pain G89.29 [facility] [address] [place] [address] Jun, [facility] [id number] [place] [address] May, Rheumatoid arthritis involving multiple sites with positive rheumatoid factor M05.79 [facility] [address], [place] [address] May, Chronic pain G89.29 [facility] [address] [address] May, [facility] [address] [address] May, [facility] [id number] [place] [address] May, [facility] [address], [place] [address] May, Type 2 diabetes mellitus with diabetic neuropathy, unspecified E11.40 [facility] [address] [place] [address] May, Type 2 diabetes mellitus with diabetic neuropathy, unspecified E11.40 ; Emphysema, unspecified J43.9 ; Hypertension I10 ; Hyperlipemia E78.5 ; Vitamin D deficiency E55.9 ; Right medial knee pain M25.561 ; Controlled substance agreement signed Z79.899 ; Chronic pain G89.29 ; Allergic rhinitis J30.9 ; Anxiety associated with depression F41.8 ; Neuropathy G62.9 and Gastro- esophageal reflux disease without esophagitis K21.9 [facility] [id number] [place] [address] Apr, Chronic pain G89.29 [facility] [id number] [place] [address] 16 Apr, 2017 Other hammer toe(s) (acquired), left foot M20.42 ; Other hammer toe(s) (acquired), right foot M20.41 ; Type 2 diabetes mellitus with diabetic neuropathy, unspecified E11.40 and Onychomycosis B35.1 [place] [id number] [place] [address] 2017 Gastro-esophageal reflux disease without esophagitis K21.9 [facility] [id number] [place] [address] Apr, Controlled substance agreement signed Z79.899 [facility] [id number] [place] [address] Mar, Chronic pain G89.29 [facility] [id number] [place] [address] Mar, Emphysema, unspecified J43.9 and Type 2 diabetes mellitus with diabetic neuropathy, unspecified E11.40 [facility] [id number] [place] [address] Mar, Dysuria R30.0 ; Vaginal candidiasis B37.3 and Acute nonintractable headache, unspecified headache type R51 [facility] [id number] [place] [address] Feb, Neuropathy G62.9 and Chronic pain G89.29 [facility] [id number] [place] [address] Feb, Gastro-esophageal reflux disease without esophagitis K21.9 [place] [address] [address] Feb, [facility] [id number] [place] [address] Feb, Rheumatoid arthritis involving multiple sites with positive rheumatoid factor M05.79 and COPD with acute exacerbation J44.1 [facility] [id number] [place] [address] Feb, Vaginal odor N89.8 ; Vaginal irritation N89.8 ; Candidal dermatitis B37.2 and Screening breast examination Z12.31 [facility] [id number] [place] [address] Feb, [facility] [address] [address] Feb, [facility] [id number] [place] [address] Feb, [facility] [id number] [place] [address] Feb, COPD with exacerbation J44.1 ; Tobacco abuse counseling Z71.6 ; Tobacco abuse Z72.0 ; Rheumatoid arthritis involving multiple sites with positive rheumatoid factor M05.79 and Hyperlipemia E78.5 [place] [id number] [place] [address] Feb, [facility] [address] [place] [id number] Jan, [place] [facility] [address] [address] Jan, Chronic pain G89.29 [facility] [address] [place] [id number] 27 Jan, 2017 Dental examination Z01.20 [facility] [id number] [place] [address] 19 Jan, 2017 Back pain of lumbar region with sciatica M54.40 [facility] [address] [address] 15 Jan, 2017 Acute bacterial conjunctivitis of both eyes H10.33 [place] [address] [address] 02 Jan, 2017 Chronic pain G89.29 [place] [address] [address] Dec, Type 2 diabetes mellitus with diabetic neuropathy, unspecified E11.40 ; Hypertension I10 ; Hyperlipemia E78.5 ; Gastro-esophageal reflux disease without esophagitis K21.9 ; Anxiety associated with depression F41.8 ; Allergic rhinitis J30.9 ; Neuropathy G62.9 and Dependence on nocturnal oxygen therapy Z99.81 [place] [address] [address] Dec, [facility] [facility] [id number] [place] [address] Dec, [facility] [address] [address] Dec, Encounter for immunization Z23 [facility] [id number] [place] [address] 05 Dec, 2016 Type 2 diabetes mellitus with diabetic neuropathy, unspecified E11.40 and Chronic pain G89.29 [place] [facility] [address] [address] Nov, Gastro-esophageal reflux disease without esophagitis K21.9 [place] [facility] [address] [address] Nov, Peripheral edema R60.9 and Chest pain in adult R07.9 [facility] [id number] [place] [address] 07 Nov, 2016 Chronic pain G89.29 [facility] [id number] [place] [address] Oct, [facility] [id number] [place] [address] Oct, [facility] [id number] [place] [address] 17 Oct, 2016 Rheumatoid arthritis with rheumatoid factor of right wrist without organ or systems involvement M05.731 [facility] [id number] [place] [address] 15 Oct, 2016 [facility] [id number] [place] [address] Oct, Acute exacerbation of chronic obstructive pulmonary disease (COPD) J44.1 and Canker sore K12.0 [facility] [id number] [place] [address] Oct, [facility] [id number] [place] [address] Oct, [facility] [id number] [place] [address] Oct, Chronic pain G89.29 [facility] [id number] [place] [id number] Oct, Dental examination Z01.20 [facility] [id number] [place] [address] Oct, Dental examination Z01.20 and Periodontitis K05.30 [facility] [id number] [place] [id number] Oct, Dental examination Z01.20 [facility] [id number] [place] [address] Sep, Abscess L02.91 [facility] [address], [place] [address] Sep, Dental examination Z01.20 [facility] [address], [place] [address] Sep, [facility] [address] [place] [id number] Sep, Dental examination Z01.20 and Dental caries K02.9 [facility] [id number] [place] [address] Sep, Primary insomnia F51.01 and Anxiety associated with depression F41.8 [facility] [id number] [place] [address] Sep, Rheumatoid arthritis with rheumatoid factor of right wrist without organ or systems involvement M05.731 [facility] [id number] [place] [address] Sep, Chronic pain G89.29 [facility] [id number] [place] [address] Sep, Type 2 diabetes mellitus with diabetic neuropathy, unspecified E11.40 ; Emphysema, unspecified J43.9 ; Gastro-esophageal reflux disease without esophagitis K21.9 ; Hypertension I10 ; Hyperlipemia E78.5 ; Anxiety associated with depression F41.8 ; Chronic pain G89.29 ; Vitamin D deficiency E55.9 and Primary insomnia F51.01 [place] [address], [place] [address] 16 Aug, 2016 Anxiety associated with depression F41.8 [facility] [facility] [id number] [place] [address] Aug, Chronic pain G89.29 and Neuropathy G62.9 [facility] [address] [place] [address] Aug, Type 2 diabetes mellitus with diabetic neuropathy, unspecified E11.40 ; Rheumatoid arthritis involving multiple sites with positive rheumatoid factor M05.79 ; Vitamin D deficiency E55.9 ; Anxiety associated with depression F41.8 and Primary insomnia F51.01 [facility] [id number] [place] [address] July, Emphysema, unspecified J43.9 [facility] [id number] [place] [address] July, Allergic rhinitis J30.9 [facility] [id number] [place] [address] July, Allergic rhinitis J30.9 ; Emphysema, unspecified J43.9 and Rheumatoid arthritis with rheumatoid factor of right wrist without organ or systems involvement M05.731 [facility] [id number] [place] [address] July, Neuropathy G62.9 and Chronic pain G89.29 [facility] [id number] [place] [address] July, Rheumatoid arthritis involving multiple sites with positive rheumatoid factor M05.79 [facility] [id number] [place] [address] Jun, [facility] [id number] [place] [address] Jun, Neuropathy G62.9 and Chronic pain G89.29 [facility] [id number] [place] [address] May, Neuropathy G62.9 and Chronic pain G89.29 [facility] [id number] [place] [address] May, [facility] [id number] [place] [address] May, [facility] [id number] [place] [address] May, Type 2 diabetes mellitus with diabetic [...] with positive rheumatoid factor M05.732 [place] [address] [address] 14 Apr, 2016 Chronic pain G89.29 [facility] [address] [address] Mar, Gastro-esophageal reflux disease without esophagitis K21.9 [place] [address] [address] Mar, [place] [address] [address] Mar, Rheumatoid arthritis with rheumatoid factor of right wrist without organ or systems involvement M05.731 [place] [address] [address] Mar, Chronic pain G89.29 [facility] [address] [address] Feb, Hyperlipemia E78.5 [facility] [address] [address] Feb, Abnormal breath sounds R06.89 ; COPD with exacerbation J44.1 and Fatigue, unspecified type R53.[address] [address] Feb, Neuropathy G62.9 ; Abnormal lung sounds R09.89 and Bronchitis J40 [facility] [address] [address] Feb, Bronchitis J40 [place] [address] [place] [address] Feb, Chronic pain G89.29 [facility] [id number] [place] [address] Jan, Type 2 diabetes mellitus with diabetic neuropathy, unspecified E11.40 ; Rheumatoid arthritis with rheumatoid factor of right wrist without organ or systems involvement M05.731 and Hyperlipemia E78.5 [facility] [id number] [place] [address] Jan, Rheumatoid arthritis with rheumatoid factor of right wrist without organ or systems involvement M05.731 [facility] [id number] [place] [address] Jan, De Quervain's disease (radial styloid tenosynovitis) M65.4 ; Closed nondisplaced fracture of scaphoid of left wrist, unspecified portion of scaphoid, initial encounter S62.002A and Peripheral tear of medial meniscus of left knee, unspecified whether old or current tear, initial encounter S83.222A [facility] [id number] [place] [address] Jan, Hypertension I10 ; Type 2 diabetes mellitus with diabetic neuropathy, unspecified E11.40 ; Hyperlipemia E78.5 ; Allergic rhinitis J30.9 ; Neuropathy G62.9 ; Rheumatoid arthritis with rheumatoid factor of right wrist without organ or systems involvement M05.731 ; Acute non-recurrent maxillary sinusitis J01.00 and Chronic pain G89.29 [facility] [address] [address] Dec, [facility] [id number] [place] [address] Dec, [facility] [id number] [place] [address] Dec, Type 2 diabetes mellitus with diabetic neuropathy, unspecified E11.40 ; Emphysema, unspecified J43.9 ; Gastro-esophageal reflux disease without esophagitis K21.9 ; Hypertension I10 ; Hyperlipemia E78.5 ; Rheumatoid arthritis with rheumatoid factor of right wrist without organ or systems involvement M05.731 ; Elevated white blood cell count, unspecified D72.829 ; Acute non- recurrent frontal sinusitis J01.10 and Chronic pain G89.29 [place] [address] [address] Nov, [place] [address] [address] Nov, Elevated white blood cell count, unspecified D72.829 ; Encounter for immunization Z23 ; Rheumatoid arthritis with rheumatoid factor of right wrist without organ or systems involvement M05.731 ; Injury of left hand S69.92XA ; Pain in left knee M25.562 and Other chronic pain G89.29 [facility] [address] [address] Nov, [facility] [address] [address] Nov, [facility] [address] [address] Oct, [facility] [facility] [id number] [place] [address] Oct, Hyperlipemia E78.5 [facility] [facility] [address] [address] Oct, [facility] [facility] [id number] [place] [address] Oct, Type 2 diabetes mellitus with diabetic neuropathy, unspecified E11.40 ; Neuropathy G62.9 ; Hypertension I10 ; Chronic pain G89.29 and Hyperlipemia E78.5 [facility] [address] [address] Oct, Emphysema, unspecified J43.9 and Rheumatoid arthritis of left wrist without organ or system involvement with positive rheumatoid factor M05.732 [facility] [id number] [place] [address] Sep, Chronic pain syndrome G89.4 [facility] [facility] [id number] [place] [address] Sep, [facility] [id number] [place] [address] Sep, [facility] [id number] [place] [address] Sep, Closed nondisplaced fracture of scaphoid of left wrist, unspecified portion of scaphoid, initial encounter S62.002A [place] [id number] [place] [address] Sep, Type 2 diabetes mellitus with diabetic neuropathy, unspecified E11.40 ; Hypertension I10 ; Hyperlipemia E78.5 and Acute non-recurrent maxillary sinusitis J01.00 [facility] [id number] [place] [address] Sep, [facility] [id number] [place] [phone] Sep, [place] [address] [id number] [place] [phone] Sep, [place] [id number] [place] [phone] Sep, [facility] [address] [id number] [place] [phone] Aug, Epigastric pain R10.13 and Right upper quadrant pain R10.11 [place] [id number] [place] [phone] Aug, Closed nondisplaced fracture of scaphoid of left wrist, unspecified portion of scaphoid, initial encounter S62.002A [place] [address] [id number] [place] [phone] Aug, [facility] [id number] [place] [phone] Aug, [facility] [id number] [place] [id number] Aug, Shortness of breath R06.02 ; Epigastric pain R10.13 and Injury of left lower arm, initial encounter S59.912A [place] [address] [id number] [place] [phone] Aug, Coronary artery disease involving [place] heart with angina pectoris, unspecified vessel or lesion type I25.119 ; Pulmonary emphysema, unspecified emphysema type J43.9 and Snoring R06.83 [place] [id number] [place] [address] Aug, [facility] [id number] [place] [address] Aug, Emphysema, unspecified J43.9 ; Atherosclerotic heart disease of [place] coronary artery 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.10 and Hypertension I10 [place] [id number] [place] [address] July, [place] [id number] [place] [address] July, Closed nondisplaced fracture of scaphoid of left wrist, unspecified portion of scaphoid, initial encounter S62.002A [place] [id number] [place] [address] July, [place] [id number] [place] [address] July, Type 2 diabetes mellitus with diabetic neuropathy, unspecified E11.40 ; Emphysema, unspecified J43.9 ; Atherosclerotic heart disease of [place] coronary artery 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.10 [...] agents L24.89 and Hospital discharge follow-up Z09 [facility] [address] [address] July, [facility] [id number] [place] [address] July, Type 2 diabetes mellitus with diabetic neuropathy, unspecified E11.40 [facility] [id number] [place] [address] July, Type 2 diabetes mellitus with diabetic neuropathy, unspecified E11.40 and Rheumatoid arthritis of left wrist without organ or system involvement with positive rheumatoid factor M05.732 [facility] [id number] [place] [address] July, [facility] [id number] [place] [address] July, [facility] [id number] [place] [address] Jun, [facility] [id number] [place] [address] Jun, [facility] [address], [place] [address] Jun, 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 [facility] [id number] [place] [address] Jun, [facility] [id number] [place] [address] Jun, 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 [facility] [id number] [place] [address] Jun, [facility] [id number] [place] [address] Jun, [place] [id number] [place] [address] Jun, Encounter for PPD test Z11.1 ; Rheumatoid arthritis with rheumatoid factor of right wrist without organ or systems involvement M05.731 and Rheumatoid arthritis of left wrist without organ or system involvement with positive rheumatoid factor M05.732 [place] [id number] [place] [address] Jun, Type 2 diabetes mellitus with diabetic neuropathy, unspecified E11.40 [facility] [id number] [place] [address] May, Type 2 diabetes mellitus with diabetic neuropathy, unspecified E11.40 ; Emphysema, unspecified J43.9 ; Rheumatoid arthritis with rheumatoid factor of right wrist without organ or systems involvement M05.731 ; Rheumatoid arthritis of left wrist without organ or system involvement with positive rheumatoid factor M05.732 and Chronic pain G89.29 [place] [address] [address] May, [place] [id number] [place] [address] May, Swelling of hand joint M25.449 ; Ankle swelling M25.473 and Joint pain M25.50 [facility] [id number] [place] [address] May, Emphysema, unspecified J43.9 [facility] [id number] [place] [address] May, Gastroenteritis K52.9 and Hypertension I10 [place] [id number] [place] [address] Apr, [facility] [id number] [place] [address] Apr, [place] [id number] [place] [address] Apr, [place] [address] [place] [address] 18 Apr, 2015 Type 2 diabetes mellitus with diabetic neuropathy, unspecified E11.40 ; Emphysema, unspecified J43.9 ; Atherosclerotic heart disease of [place] coronary artery 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.10 ; Migraine without aura, not intractable, with status migrainosus G43.001 ; Gastro-esophageal reflux disease without esophagitis K21.9 ; CAD (coronary artery disease) I25.10 ; Hypertension I10 ; Hyperlipemia E78.5 ; Allergic rhinitis J30.9 ; Neuropathy G62.9 ; Anxiety associated with depression F41.8 and Injury of left hand S69.92XA [place] [address] [address] Apr, [place] [address] [address] Apr, [place] [address] [address] Apr, Type 2 diabetes mellitus with diabetic neuropathy, unspecified E11.40 ; Emphysema, unspecified J43.9 ; Essential (primary) hypertension I10 ; Atherosclerotic heart disease of [place] coronary artery 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.10 ; Gastro-esophageal reflux disease without esophagitis K21.9 ; CAD (coronary artery disease) I25.10 ; Hyperlipemia E78.5 ; Hypertension I10 ; History of solitary pulmonary nodule Z87.898 ; Allergic rhinitis J30.9 ; Chronic pain G89.29 and Depression with anxiety F41.8 [facility] [id number] [place] [address] Mar, [place] [address] [address] Mar, Allergic rhinitis J30.9 ; URI (upper respiratory infection) J06.9 and Other viral agents as the cause of diseases classified elsewhere B97.89 [facility] [id number] [place] [address] Feb, Acute nasopharyngitis [common cold] J00 and Acute diarrhea R19.7 [place] [id number] [place] [address] Feb, Depression F32.9 [place] [address] [address] Jan, Otitis media, right H66.[address] [address] Jan, [place] [address] [address] Jan, Type 2 diabetes mellitus with diabetic neuropathy, unspecified E11.40 [place] [address] [address] Jan, [place] [address] [address] Jan, Hyperlipemia E78.5 [place] [address] [address] Jan, Type 2 diabetes mellitus with diabetic neuropathy, unspecified E11.40 ; Emphysema, unspecified J43.9 ; CAD (coronary artery disease) I25.10 and Hyperlipemia E78.5 [place] [id number] [place] [address] Dec, Allergic rhinitis J30.9 and Fungal infection B49 [place] [id number] [place] [address] Dec, [place] [address] [address] Dec, [place] [address] [address] Dec, Chest pain R07.9 ; CAD (coronary artery disease) I25.10 ; Hypertension I10 and Hyperlipemia E78.5 [place] [address] [address] Dec, Pain in thoracic spine M54.6 ; Gastro-esophageal reflux disease without esophagitis K21.9 ; Emphysema, unspecified J43.9 and Migraine without aura, not intractable, with status migrainosus G43.001 [place] [id number] [place] [address] Dec, [place] [id number] [place] [address] Nov, Influenza vaccine administered V04.81 [place] [id number] [place] [address] Nov, [place] [address] [address] Sep, [place] [id number] [place] [address] Sep, [place] [address] [address] Sep, CAD (coronary artery disease) 414.00 and Diabetes type 2, uncontrolled 250.02 [place] [id number] [place] [address] Sep, CAD (coronary artery disease) 414.00 ; Diabetes type 2, uncontrolled 250.02 and Migraine 346.90 IMMUNIZATIONS No Known Immunizations SOCIAL HISTORY Never Assessed REASON FOR VISIT Controlled Med Refill PLAN OF CARE VITAL SIGNS MEDICATIONS Medication Instructions Dosage Frequency Start Date End Date Duration Status Hydrocodone-Acetaminophen 7.5-325 MG Orally every 6 hours as needed 1 tablet as needed July, 28 days Active RESULTS No Results PROCEDURES [...] unspecified Medical History Atherosclerotic heart disease [place] coronary artery without angina pectoris Medical [...]
--- OUTSIDE RECORDS SUMMARY | 2018-08-23 17:01 | XMS REPORT ---
Author Author BRANDIN REYES [facility] Address [address] 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 Name Role Phone BRANDIN REYES Unavailable PROBLEMS Type Condition ICD9-CM Code OUV36-JV Code Onset Dates Condition Status SNOMED Code Problem Periodontitis K05.30 Active 73523262 Problem Neuropathy G62.9 Active 091811788 Problem Dependence on nocturnal oxygen therapy Z99.81 Active 51088508262473 Problem Other chronic pain G89.29 Active 02286919 Problem Hyperlipemia E78.5 Active 96420350 Problem Atherosclerotic heart disease of [place] coronary artery 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.10 Active 766792133512414 Problem Vitamin D deficiency E55.9 Active 42814755 Problem Other hammer toe(s) (acquired), right foot M20.41 Active 049309601 Problem Other hammer toe(s) (acquired), left foot M20.42 Active 96766861 Problem Hammer toe of left foot M20.42 Active 197568493 Problem Tobacco abuse Z72.0 Active 180797318 Problem Emphysema, unspecified J43.9 Active 95444882 Problem Type 2 diabetes mellitus with diabetic neuropathy, unspecified E11.40 Active 49235644 Problem Hypertension I10 Active 44615582 Problem Gastro-esophageal reflux disease without esophagitis K21.9 Active 806365195 Problem Chronic pain G89.29 Active 04824654 Problem OAB (overactive bladder) N32.81 Active 640267140 Problem Allergic rhinitis J30.9 Active 92420205 Problem Rheumatoid arthritis involving multiple sites with positive rheumatoid factor M05.79 Active 987486025 Problem Anxiety associated with depression F41.8 Active 753707217 Problem Primary insomnia F51.01 Active 7797315 ALLERGIES No Information ENCOUNTERS Encounter Location Date Diagnosis [facility] [address] [facility] [id number] [address] Dec, [facility] [address] [address] Oct, [facility] [id number] [place] [address] Oct, Chronic pain G89.29 [facility] [id number] [place] [address] Oct, [facility] [address] [address] Oct, [facility] [id number] [place] [address] Oct, Orthostatic hypotension I95.1 ; Dizziness R42 and Neuropathy G62.9 [facility] [id number] [place] [address] Oct, Dizziness R42 ; Low back pain M54.5 ; Other chronic pain G89.29 ; Nausea R11.0 and Orthostatic hypotension I95.1 [facility] [id number] [place] [address] Sep, Rheumatoid arthritis involving multiple sites with positive rheumatoid factor M05.79 and Tobacco abuse Z72.0 [facility] [id number] [place] [address] Sep, Chronic pain G89.29 [facility] [id number] [place] [address] Aug, Type 2 diabetes mellitus with diabetic [...] (overactive bladder) N32.81 and Primary insomnia F51.01 [facility] [address] [address] July, [facility] [id number] [place] [address] July, [facility] [id number] [address] July, Chronic pain G89.29 [facility] [id number] [place] [address] July, [facility] [id number] [place] [address] July, Onychomycosis B35.1 ; Hammer toe of left foot M20.42 and Type 2 diabetes mellitus with diabetic neuropathy, unspecified E11.40 [facility] [id number] [address] July, [facility] [id number] [place] [address] July, Chronic pain G89.29 and Neuropathy G62.9 [facility] [id number] [place] [address] July, [facility] [id number] [place] [address] July, [facility] [address], [place] [address] Jun, [facility] [id number] [address] Jun, Chronic pain G89.29 [facility] [address] [address] Jun, [facility] [address] [address] Jun, [facility] [address], [place] [address] Jun, Visit for TB skin test Z11.1 [facility] [address] [address] Jun, [facility] [id number] [place] [address] Jun, [facility] [id number] [address] Jun, Tobacco abuse Z72.0 and Rheumatoid arthritis involving multiple sites with positive rheumatoid factor M05.79 [facility] [id number] [place] [address] Jun, Anxiety F41.9 ; Acute non-recurrent maxillary sinusitis J01.00 and Chronic pain G89.29 [facility] [id number] [address] Jun, [facility] [id number] [place] [address] May, Rheumatoid arthritis involving multiple sites with positive rheumatoid factor M05.79 [facility] [address], [place] [address] May, Chronic pain G89.29 [facility] [address], [place] [address] May, [facility] [address] [address] May, [place] [place] [address], [place] [address] May, [facility] [address] [address] May, Type 2 diabetes mellitus with diabetic neuropathy, unspecified E11.40 [facility] [address] [address] May, Type 2 diabetes mellitus with diabetic neuropathy, unspecified E11.40 ; Emphysema, unspecified J43.9 ; Hypertension I10 ; Hyperlipemia E78.5 ; Vitamin D deficiency E55.9 ; Right medial knee pain M25.561 ; Controlled substance agreement signed Z79.899 ; Chronic pain G89.29 ; Allergic rhinitis J30.9 ; Anxiety associated with depression F41.8 ; Neuropathy G62.9 and Gastro- esophageal reflux disease without esophagitis K21.9 [facility] [id number] [place] [address] Apr, Chronic pain G89.29 [place] [address] [address] 16 Apr, 2017 Other hammer toe(s) (acquired), left foot M20.42 ; Other hammer toe(s) (acquired), right foot M20.41 ; Type 2 diabetes mellitus with diabetic neuropathy, unspecified E11.40 and Onychomycosis B35.1 [place] [facility] [address] [address] 2017 Gastro-esophageal reflux disease without esophagitis K21.9 [facility] [address] [address] 02 Apr, 2017 Controlled substance agreement signed Z79.899 [facility] [address] [address] Mar, Chronic pain G89.29 [facility] [id number] [place] [address] Mar, Emphysema, unspecified J43.9 and Type 2 diabetes mellitus with diabetic neuropathy, unspecified E11.40 [facility] [address] [address] Mar, Dysuria R30.0 ; Vaginal candidiasis B37.3 and Acute nonintractable headache, unspecified headache type R51 [facility] [id number] [place] [address] Feb, Neuropathy G62.9 and Chronic pain G89.29 [facility] [address] [address] Feb, Gastro-esophageal reflux disease without esophagitis K21.9 [facility] [address] [address] Feb, [facility] [address] [address] Feb, Rheumatoid arthritis involving multiple sites with positive rheumatoid factor M05.79 and COPD with acute exacerbation J44.1 [facility] [address] [address] Feb, Vaginal odor N89.8 ; Vaginal irritation N89.8 ; Candidal dermatitis B37.2 and Screening breast examination Z12.31 [facility] [address] [address] Feb, [place] [address] [address] Feb, [facility] [address] [address] Feb, [facility] [address] [address] Feb, COPD with exacerbation J44.1 ; Tobacco abuse counseling Z71.6 ; Tobacco abuse Z72.0 ; Rheumatoid arthritis involving multiple sites with positive rheumatoid factor M05.79 and Hyperlipemia E78.5 [facility] [id number] [place] [address] Feb, [facility] [address] [id number] Jan, [facility] [address] [address] Jan, Chronic pain G89.29 [facility] [address] [id number] Jan, Dental examination Z01.20 [facility] [address] [address] Jan, Back pain of lumbar region with sciatica M54.40 [facility] [address] [address] 15 Jan, 2017 Acute bacterial conjunctivitis of both eyes H10.33 [place] [address] [address] 02 Jan, 2017 Chronic pain G89.29 [facility] [address] [address] Dec, Type 2 diabetes mellitus with diabetic neuropathy, unspecified E11.40 ; Hypertension I10 ; Hyperlipemia E78.5 ; Gastro-esophageal reflux disease without esophagitis K21.9 ; Anxiety associated with depression F41.8 ; Allergic rhinitis J30.9 ; Neuropathy G62.9 and Dependence on nocturnal oxygen therapy Z99.[address] [address] Dec, [place] [facility] [address] [address] Dec, [address] [address] 09 Dec, 2016 Encounter for immunization Z23 [facility] [facility] [address] [address] 05 Dec, 2016 Type 2 diabetes mellitus with diabetic neuropathy, unspecified E11.40 and Chronic pain G89.29 [place] [address] [address] 11 Nov, 2016 Gastro-esophageal reflux disease without esophagitis K21.9 [facility] [address] [address] 11 Nov, 2016 Peripheral edema R60.9 and Chest pain in adult R07.9 [facility] [address] [address] 07 Nov, 2016 Chronic pain G89.29 [facility] [address], [place] [address] Oct, [facility] [id number] [place] [address] Oct, [facility] [id number] [place] [address] Oct, Rheumatoid arthritis with rheumatoid factor of right wrist without organ or systems involvement M05.731 [facility] [id number] [place] [address] 15 Oct, 2016 [facility] [id number] [place] [address] Oct, Acute exacerbation of chronic obstructive pulmonary disease (COPD) J44.1 and Canker sore K12.0 [facility] [id number] [place] [address] Oct, [facility] [id number] [place] [address] Oct, [facility] [id number] [place] [address] Oct, Chronic pain G89.29 [facility] [id number] [place] [id number] Oct, Dental examination Z01.20 [facility] [address] [place] [address] Oct, Dental examination Z01.20 and Periodontitis K05.30 [facility] [address] [place] [id number] Oct, Dental examination Z01.20 [facility] [id number] [place] [address] Sep, Abscess L02.91 [facility] [address] [place] [address] Sep, Dental examination Z01.20 [facility] [address] [place] [address] Sep, [facility] [address] [id number] Sep, Dental examination Z01.20 and Dental caries K02.9 [facility] [id number] [place] [address] Sep, Primary insomnia F51.01 and Anxiety associated with depression F41.8 [facility] [id number] [place] [address] Sep, Rheumatoid arthritis with rheumatoid factor of right wrist without organ or systems involvement M05.731 [facility] [id number] [place] [address] Sep, Chronic pain G89.29 [facility] [id number] [place] [address] Sep, Type 2 diabetes mellitus with diabetic neuropathy, unspecified E11.40 ; Emphysema, unspecified J43.9 ; Gastro-esophageal reflux disease without esophagitis K21.9 ; Hypertension I10 ; Hyperlipemia E78.5 ; Anxiety associated with depression F41.8 ; Chronic pain G89.29 ; Vitamin D deficiency E55.9 and Primary insomnia F51.01 [facility] [address] [place] [address] 16 Aug, 2016 Anxiety associated with depression F41.8 [facility] [address] [place] [address] Aug, Chronic pain G89.29 and Neuropathy G62.9 [facility] [address] [place] [address] Aug, Type 2 diabetes mellitus with diabetic neuropathy, unspecified E11.40 ; Rheumatoid arthritis involving multiple sites with positive rheumatoid factor M05.79 ; Vitamin D deficiency E55.9 ; Anxiety associated with depression F41.8 and Primary insomnia F51.01 [facility] [id number] [place] [address] July, Emphysema, unspecified J43.9 [facility] [id number] [place] [address] July, Allergic rhinitis J30.9 [facility] [id number] [place] [address] July, Allergic rhinitis J30.9 ; Emphysema, unspecified J43.9 and Rheumatoid arthritis with rheumatoid factor of right wrist without organ or systems involvement M05.731 [facility] [id number] [place] [address] July, Neuropathy G62.9 and Chronic pain G89.29 [facility] [id number] [place] [address] July, Rheumatoid arthritis involving multiple sites with positive rheumatoid factor M05.79 [facility] [id number] [place] [address] Jun, [facility] [id number] [place] [address] Jun, Neuropathy G62.9 and Chronic pain G89.29 [facility] [id number] [place] [address] May, Neuropathy G62.9 and Chronic pain G89.29 [facility] [id number] [place] [address] May, [place] [id number] [place] [address] May, [facility] [id number] [place] [address] May, Type 2 diabetes mellitus with diabetic [...] system involvement with positive rheumatoid factor M05.732 [facility] [id number] [place] [address] 14 Apr, 2016 Chronic pain G89.29 [place] [address] [address] Mar, Gastro-esophageal reflux disease without esophagitis K21.9 [place] [facility] [address] [address] Mar, [place] [facility] [address] [address] Mar, Rheumatoid arthritis with rheumatoid factor of right wrist without organ or systems involvement M05.731 [place] [address] [address] Mar, Chronic pain G89.29 [place] [facility] [address] [address] Feb, Hyperlipemia E78.5 [place] [address] [address] Feb, Abnormal breath sounds R06.89 ; COPD with exacerbation J44.1 and Fatigue, unspecified type R53.83 [facility] [id number] [place] [address] Feb, Neuropathy G62.9 ; Abnormal lung sounds R09.89 and Bronchitis J40 [facility] [address] [address] Feb, Bronchitis J40 [place] [address] [address] Feb, Chronic pain G89.29 [place] [address] [address] Jan, Type 2 diabetes mellitus with diabetic neuropathy, unspecified E11.40 ; Rheumatoid arthritis with rheumatoid factor of right wrist without organ or systems involvement M05.731 and Hyperlipemia E78.5 [facility] [address] [place] [address] Jan, Rheumatoid arthritis with rheumatoid factor of right wrist without organ or systems involvement M05.731 [facility] [facility] [id number] [place] [address] Jan, De Quervain's disease (radial styloid tenosynovitis) M65.4 ; Closed nondisplaced fracture of scaphoid of left wrist, unspecified portion of scaphoid, initial encounter S62.002A and Peripheral tear of medial meniscus of left knee, unspecified whether old or current tear, initial encounter S83.222A [facility] [facility] [id number] [place] [address] Jan, Hypertension I10 ; Type 2 diabetes mellitus with diabetic neuropathy, unspecified E11.40 ; Hyperlipemia E78.5 ; Allergic rhinitis J30.9 ; Neuropathy G62.9 ; Rheumatoid arthritis with rheumatoid factor of right wrist without organ or systems involvement M05.731 ; Acute non-recurrent maxillary sinusitis J01.00 and Chronic pain G89.29 [place] [address] [place] [address] Dec, [place] [place] [id number] [place] [address] Dec, [place] [address] [place] [address] Dec, Type 2 diabetes mellitus with diabetic neuropathy, unspecified E11.40 ; Emphysema, unspecified J43.9 ; Gastro-esophageal reflux disease without esophagitis K21.9 ; Hypertension I10 ; Hyperlipemia E78.5 ; Rheumatoid arthritis with rheumatoid factor of right wrist without organ or systems involvement M05.731 ; Elevated white blood cell count, unspecified D72.829 ; Acute non- recurrent frontal sinusitis J01.10 and Chronic pain G89.29 [facility] [id number] [place] [address] Nov, [place] [id number] [place] [address] Nov, Elevated white blood cell count, unspecified D72.829 ; Encounter for immunization Z23 ; Rheumatoid arthritis with rheumatoid factor of right wrist without organ or systems involvement M05.731 ; Injury of left hand S69.92XA ; Pain in left knee M25.562 and Other chronic pain G89.29 [place] [id number] [place] [address] Nov, [place] [facility] [address] [address] Nov, [facility] [place] [id number] [place] [address] Oct, [place] [id number] [place] [address] Oct, Hyperlipemia E78.5 [place] [address] [address] Oct, [facility] [id number] [place] [address] Oct, Type 2 diabetes mellitus with diabetic neuropathy, unspecified E11.40 ; Neuropathy G62.9 ; Hypertension I10 ; Chronic pain G89.29 and Hyperlipemia E78.5 [place] [id number] [place] [address] Oct, Emphysema, unspecified J43.9 and Rheumatoid arthritis of left wrist without organ or system involvement with positive rheumatoid factor M05.732 [facility] [id number] [place] [address] Sep, Chronic pain syndrome G89.4 [place] [address] [address] Sep, [facility] [id number] [place] [address] Sep, [facility] [id number] [place] [address] Sep, Closed nondisplaced fracture of scaphoid of left wrist, unspecified portion of scaphoid, initial encounter S62.002A [facility] [id number] [place] [address] Sep, Type 2 diabetes mellitus with diabetic neuropathy, unspecified E11.40 ; Hypertension I10 ; Hyperlipemia E78.5 and Acute non-recurrent maxillary sinusitis J01.00 [facility] [id number] [place] [address] Sep, [facility] [id number] [place] [address] Sep, [facility] [id number] [place] [address] Sep, [facility] [id number] [place] [address] Sep, [facility] [id number] [place] [address] Aug, Epigastric pain R10.13 and Right upper quadrant pain R10.11 [facility] [id number] [place] [address] Aug, Closed nondisplaced fracture of scaphoid of left wrist, unspecified portion of scaphoid, initial encounter S62.002A [facility] [id number] [place] [address] Aug, [facility] [id number] [place] [address] Aug, [facility] [id number] [place] [address] Aug, Shortness of breath R06.02 ; Epigastric pain R10.13 and Injury of left lower arm, initial encounter S59.912A [place] [id number] [place] [address] Aug, Coronary artery disease involving [place] heart with angina pectoris, unspecified vessel or lesion type I25.119 ; Pulmonary emphysema, unspecified emphysema type J43.9 and Snoring R06.83 [place] [address] [address] Aug, [place] [address] [address] Aug, Emphysema, unspecified J43.9 ; Atherosclerotic heart disease of [place] coronary artery 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.10 and Hypertension I10 [id number] [place] [address] July, [place] [address] [address] July, Closed nondisplaced fracture of scaphoid of left wrist, unspecified portion of scaphoid, initial encounter S62.002A [place] [address] [place] [id number] [place] [id number] July, [place] [address] [place] [id number] [place] [phone] July, Type 2 diabetes mellitus with diabetic [...] agents L24.89 and Hospital discharge follow-up Z09 [address] [place] [address] July, [facility] [address], [place] [address] July, Type 2 diabetes mellitus with diabetic neuropathy, unspecified E11.40 [facility] [id number], [place] [address] July, Type 2 diabetes mellitus with diabetic neuropathy, unspecified E11.40 and Rheumatoid arthritis of left wrist without organ or system involvement with positive rheumatoid factor M05.732 [facility] [address] [id number] [address] July, [facility] [address], [place] [address] July, [facility] [address], [place] [address] Jun, [facility] [address], [place] [address] Jun, [facility] [address], [place] [address] Jun, 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 [facility] [address], [place] [address] Jun, [facility] [address], [place] [address] Jun, 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 [facility] [id number], [place] [address] Jun, [facility] [address], [place] [address] Jun, [facility] [address] [place] [address] Jun, Encounter for PPD test Z11.1 ; Rheumatoid arthritis with rheumatoid factor of right wrist without organ or systems involvement M05.731 and Rheumatoid arthritis of left wrist without organ or system involvement with positive rheumatoid factor M05.732 [place] [id number] [place] [address] Jun, Type 2 diabetes mellitus with diabetic neuropathy, unspecified E11.40 [place] [id number] [place] [address] 31 May, 2015 Type 2 diabetes mellitus with diabetic neuropathy, unspecified E11.40 ; Emphysema, unspecified J43.9 ; Rheumatoid arthritis with rheumatoid factor of right wrist without organ or systems involvement M05.731 ; Rheumatoid arthritis of left wrist without organ or system involvement with positive rheumatoid factor M05.732 and Chronic pain G89.29 [place] [id number] [place] [address] May, [place] [id number] [place] [address] May, Swelling of hand joint M25.449 ; Ankle swelling M25.473 and Joint pain M25.50 [place] [id number] [place] [address] May, Emphysema, unspecified J43.9 [place] [id number] [place] [address] May, Gastroenteritis K52.9 and Hypertension I10 [place] [id number] [place] [address] Apr, [place] [id number] [place] [address] Apr, [place] [id number] [place] [address] Apr, [facility] [id number] [place] [address] Apr, Type 2 diabetes mellitus with diabetic [...] F41.8 and Injury of left hand S69.92XA [address] [address] Apr, [place] [address] [address] Apr, [address] [address] Apr, Type 2 diabetes mellitus with diabetic [...] pain G89.29 and Depression with anxiety F41.[address] [address] Mar, [address] [address] Mar, Allergic rhinitis J30.9 ; URI (upper respiratory infection) J06.9 and Other viral agents as the cause of diseases classified elsewhere B97.89 [facility] [id number] [place] [address] Feb, Acute nasopharyngitis [common cold] J00 and Acute diarrhea R19.[address] [address] Feb, Depression F32.[address] [address] Jan, Otitis media, right H66.91 [place] [address] [address] Jan, [place] [address] [address] Jan, Type 2 diabetes mellitus with diabetic neuropathy, unspecified E11.40 [place] [address] [address] Jan, [place] [address] [address] Jan, Hyperlipemia E78.5 [place] [address] [address] Jan, Type 2 diabetes mellitus with diabetic neuropathy, unspecified E11.40 ; Emphysema, unspecified J43.9 ; CAD (coronary artery disease) I25.10 and Hyperlipemia E78.[address] [address] Dec, Allergic rhinitis J30.9 and Fungal infection B49 [address] [address] Dec, [address] [address] Dec, [address] [address] Dec, Chest pain R07.9 ; CAD (coronary artery disease) I25.10 ; Hypertension I10 and Hyperlipemia E78.[address] [address] 08 Dec, 2014 Pain in thoracic spine M54.6 ; Gastro-esophageal reflux disease without esophagitis K21.9 ; Emphysema, unspecified J43.9 and Migraine without aura, not intractable, with status migrainosus G43.001 [address] [place] [address] Dec, [facility] [id number] [place] [address] Nov, Influenza vaccine administered V04.81 [place] [id number] [place] [address] Nov, [facility] [id number] [place] [address] Sep, [place] [id number] [place] [address] Sep, [place] [id number] [place] [address] Sep, CAD (coronary artery disease) 414.00 and Diabetes type 2, uncontrolled 250.02 [place] [id number] [place] [address] Sep, CAD (coronary artery disease) 414.00 ; Diabetes type 2, uncontrolled 250.02 and Migraine 346.90 IMMUNIZATIONS No Known Immunizations SOCIAL HISTORY Never Assessed REASON FOR VISIT Requests return call PLAN OF CARE VITAL SIGNS MEDICATIONS Unknown Medications RESULTS No Results PROCEDURES No Known procedures INSTRUCTIONS MEDICATIONS ADMINISTERED No Known Medications MEDICAL (GENERAL) HISTORY Type Description Date Medical History COPD Medical History Type 2 Diabetes Medical History HTN Medical History Cardiac stents July 2010 post MN-stent to LAD Medical History Rheumatoid Arthritis Medical [...]
--- OUTSIDE RECORDS SUMMARY | 2018-08-23 17:01 | XMS REPORT ---
Author Author DELEONROB MoranELE Organization [facility] Address [address] [place] [address] Care Team Providers Care Roustabout Crew Leader Name Role Phone DELEONCLAU Moran Unavailable PROBLEMS Type Condition ICD9-CM Code VPO96-CK Code Onset Dates Condition Status SNOMED Code Problem Periodontitis K05.30 Active 59043570 Problem Neuropathy G62.9 Active 286525763 Problem Dependence on nocturnal oxygen therapy Z99.81 Active 10566620332016 Problem Other chronic pain G89.29 Active 71750175 Problem Hyperlipemia E78.5 Active 14064903 Problem 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 Active 994603270737520 Problem Vitamin D deficiency E55.9 Active 13882572 Problem Other hammer toe(s) (acquired), right foot M20.41 Active 154637313 Problem Other hammer toe(s) (acquired), left foot M20.42 Active 98397447 Problem Hammer toe of left foot M20.42 Active 458588342 Problem Tobacco abuse Z72.0 Active 125424449 Problem Emphysema, unspecified J43.9 Active 88179481 Problem Type 2 diabetes mellitus with diabetic neuropathy, unspecified E11.40 Active 63569138 Problem Hypertension I10 Active 49325288 Problem Gastro-esophageal reflux disease without esophagitis K21.9 Active 945741623 Problem Chronic pain G89.29 Active 32656273 Problem OAB (overactive bladder) N32.81 Active 301889779 Problem Allergic rhinitis J30.9 Active 51784356 Problem Rheumatoid arthritis involving multiple sites with positive rheumatoid factor M05.79 Active 495283067 Problem Anxiety associated with depression F41.8 Active 303443297 Problem Primary insomnia F51.01 Active 6012885 ALLERGIES No Information ENCOUNTERS Encounter Location Date Diagnosis [facility] [address] [facility] [id number] [address] Dec, [facility] [address] [address] Oct, [facility] [id number] [place] [address] Oct, [facility] [address] [place] [address] Oct, Dizziness R42 ; Low back pain M54.5 ; Other chronic pain G89.29 ; Nausea R11.0 and Orthostatic hypotension I95.1 [facility] [id number] [place] [address] Sep, Rheumatoid arthritis involving multiple sites with positive rheumatoid factor M05.79 and Tobacco abuse Z72.0 [facility] [id number] [place] [address] Sep, Chronic pain G89.29 [facility] [id number] [place] [address] Aug, Type 2 diabetes mellitus with diabetic neuropathy, unspecified E11.40 ; Hypertension I10 ; Hyperlipemia E78.5 ; Gastro-esophageal reflux disease without esophagitis K21.9 ; Emphysema, unspecified J43.9 ; Anxiety associated with depression F41.8 ; Vitamin D deficiency E55.9 ; Chronic pain G89.29 ; Tobacco abuse Z72.0 ; Overweight (BMI 25.0-29.9) E66.3 ; 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 ; OAB (overactive bladder) N32.81 and Primary insomnia F51.01 [facility] [address] [place] [address] July, [facility] [id number] [place] [address] July, [facility] [id number] [place] [address] July, Chronic pain G89.29 [facility] [id number] [place] [address] July, [facility] [address] [address] July, Onychomycosis B35.1 ; Hammer toe of left foot M20.42 and Type 2 diabetes mellitus with diabetic neuropathy, unspecified E11.40 [facility] [id number] [address] July, [facility] [id number] [place] [address] July, Chronic pain G89.29 and Neuropathy G62.9 [facility] [id number] [place] [address] July, [facility] [id number] [place] [address] July, [facility] [id number] [place] [address] Jun, [facility] [id number] [place] [address] Jun, Chronic pain G89.29 [facility] [id number] [place] [address] Jun, [facility] [id number] [place] [address] Jun, [facility] [id number] [place] [address] Jun, Visit for TB skin test Z11.1 [facility] [id number] [place] [address] Jun, [facility] [id number] [place] [address] Jun, [facility] [address] [place] [address] Jun, Tobacco abuse Z72.0 and Rheumatoid arthritis involving multiple sites with positive rheumatoid factor M05.79 [place] [address] [address] Jun, Anxiety F41.9 ; Acute non-recurrent maxillary sinusitis J01.00 and Chronic pain G89.29 [place] [address] [place] [address] Jun, [place] [address] [address] May, Rheumatoid arthritis involving multiple sites with positive rheumatoid factor M05.79 [facility] [id number] [place] [address] May, Chronic pain G89.29 [facility] [id number] [place] [address] May, [facility] [id number] [place] [address] May, [facility] [id number] [place] [address] May, [facility] [id number] [place] [address] May, Type 2 diabetes mellitus with diabetic neuropathy, unspecified E11.40 [facility] [id number] [place] [address] May, Type 2 diabetes mellitus with diabetic [...] reflux disease without esophagitis K21.9 [facility] [address] [place] [address] Apr, Chronic pain G89.29 [facility] [id number] [place] [address] 16 Apr, 2017 Other hammer toe(s) (acquired), left foot M20.42 ; Other hammer toe(s) (acquired), right foot M20.41 ; Type 2 diabetes mellitus with diabetic neuropathy, unspecified E11.40 and Onychomycosis B35.1 [place] [id number] [place] [address] 2017 Gastro-esophageal reflux disease without esophagitis K21.[address] [address] 02 Apr, 2017 Controlled substance agreement signed Z79.[address] [address] Mar, Chronic pain G89.[address] [address] Mar, Emphysema, unspecified J43.9 and Type 2 diabetes mellitus with diabetic neuropathy, unspecified E11.40 [facility] [id number] [place] [address] Mar, Dysuria R30.0 ; Vaginal candidiasis B37.3 and Acute nonintractable headache, unspecified headache type R51 [place] [id number] [place] [address] Feb, Neuropathy G62.9 and Chronic pain G89.29 [facility] [id number] [place] [address] Feb, Gastro-esophageal reflux disease without esophagitis K21.9 [place] [facility] [address] [address] Feb, [facility] [facility] [id number] [place] [address] Feb, Rheumatoid arthritis involving multiple sites with positive rheumatoid factor M05.79 and COPD with acute exacerbation J44.[id number] [place] [address] Feb, Vaginal odor N89.8 ; Vaginal irritation N89.8 ; Candidal dermatitis B37.2 and Screening breast examination Z12.31 [facility] [id number] [place] [address] Feb, [facility] [address] [address] Feb, [facility] [id number] [place] [address] Feb, [place] [address] [address] Feb, COPD with exacerbation J44.1 ; Tobacco abuse counseling Z71.6 ; Tobacco abuse Z72.0 ; Rheumatoid arthritis involving multiple sites with positive rheumatoid factor M05.79 and Hyperlipemia E78.5 [place] [id number] [place] [address] Feb, [facility] [id number] [place] [id number] Jan, [place] [id number] [place] [address] Jan, Chronic pain G89.[address] [facility] [id number] [place] [phone] Jan, Dental examination Z01.20 [facility] [id number] [place] [address] 19 Jan, 2017 Back pain of lumbar region with sciatica M54.40 [facility] [address] [place] [id number] [place] [address] 15 Jan, 2017 Acute bacterial conjunctivitis of both eyes H10.33 [place] [id number] [place] [address] 02 Jan, 2017 Chronic pain G89.29 [place] [id number] [place] [address] Dec, Type 2 diabetes mellitus with diabetic neuropathy, unspecified E11.40 ; Hypertension I10 ; Hyperlipemia E78.5 ; Gastro-esophageal reflux disease without esophagitis K21.9 ; Anxiety associated with depression F41.8 ; Allergic rhinitis J30.9 ; Neuropathy G62.9 and Dependence on nocturnal oxygen therapy Z99.81 [place] [id number] [place] [address] Dec, [place] [address] [address] Dec, [place] [address] [address] Dec, Encounter for immunization Z23 [place] [id number] [place] [address] Dec, Type 2 diabetes mellitus with diabetic neuropathy, unspecified E11.40 and Chronic pain G89.29 [place] [id number] [place] [address] Nov, Gastro-esophageal reflux disease without esophagitis K21.9 [place] [id number] [place] [address] 11 Nov, 2016 Peripheral edema R60.9 and Chest pain in adult R07.9 [place] [id number] [place] [address] 07 Nov, 2016 Chronic pain G89.29 [facility] [id number] [place] [address] Oct, [place] [id number] [place] [address] Oct, [place] [id number] [place] [address] Oct, Rheumatoid arthritis with rheumatoid factor of right wrist without organ or systems involvement M05.731 [place] [address] [place] [address] 15 Oct, 2016 [facility] [id number] [place] [address] Oct, Acute exacerbation of chronic obstructive pulmonary disease (COPD) J44.1 and Canker sore K12.0 [facility] [id number] [place] [address] Oct, [facility] [id number] [place] [address] Oct, [facility] [id number] [place] [address] Oct, Chronic pain G89.[address] [facility] [id number] [place] [id number] Oct, Dental examination Z01.20 [facility] [id number] [place] [address] Oct, Dental examination Z01.20 and Periodontitis K05.[address] [facility] [id number] [place] [phone] Oct, Dental examination Z01.20 [facility] [id number] [place] [address] Sep, Abscess L02.91 [facility] [id number] [place] [address] Sep, Dental examination Z01.20 [facility] [id number] [place] [address] Sep, [facility] [id number] [place] [id number] Sep, Dental examination Z01.20 and Dental caries K02.9 [facility] [id number] [place] [address] Sep, Primary insomnia F51.01 and Anxiety associated with depression F41.8 [facility] [id number] [place] [address] 14 Sep, 2016 Rheumatoid arthritis with rheumatoid factor of right wrist without organ or systems involvement M05.731 [place] [id number] [place] [address] Sep, Chronic pain G89.29 [place] [id number] [place] [address] Sep, Type 2 diabetes mellitus with diabetic neuropathy, unspecified E11.40 ; Emphysema, unspecified J43.9 ; Gastro-esophageal reflux disease without esophagitis K21.9 ; Hypertension I10 ; Hyperlipemia E78.5 ; Anxiety associated with depression F41.8 ; Chronic pain G89.29 ; Vitamin D deficiency E55.9 and Primary insomnia F51.01 [place] [id number] [place] [address] 16 Aug, 2016 Anxiety associated with depression F41.8 [place] [facility] [id number] [place] [address] Aug, Chronic pain G89.29 and Neuropathy G62.9 [place] [id number] [place] [address] Aug, Type 2 diabetes mellitus with diabetic neuropathy, unspecified E11.40 ; Rheumatoid arthritis involving multiple sites with positive rheumatoid factor M05.79 ; Vitamin D deficiency E55.9 ; Anxiety associated with depression F41.8 and Primary insomnia F51.01 [place] [address] [place] [address] July, Emphysema, unspecified J43.9 [place] [id number] [place] [address] July, Allergic rhinitis J30.9 [place] [id number] [place] [address] July, Allergic rhinitis J30.9 ; Emphysema, unspecified J43.9 and Rheumatoid arthritis with rheumatoid factor of right wrist without organ or systems involvement M05.731 [place] [address] [place] [address] July, Neuropathy G62.9 and Chronic pain G89.29 [place] [id number] [place] [address] July, Rheumatoid arthritis involving multiple sites with positive rheumatoid factor M05.79 [place] [id number] [place] [address] Jun, [place] [id number] [place] [address] Jun, Neuropathy G62.9 and Chronic pain G89.29 [place] [address] [address] May, Neuropathy G62.9 and Chronic pain G89.29 [place] [id number] [place] [address] May, [place] [id number] [place] [address] May, [place] [id number] [place] [address] May, Type 2 diabetes mellitus with diabetic [...] with positive rheumatoid factor M05.732 [place] [address] [place] [address] 14 Apr, 2016 Chronic pain G89.29 [place] [id number] [place] [address] Mar, Gastro-esophageal reflux disease without esophagitis K21.9 [place] [address] [place] [address] Mar, [place] [id number] [place] [address] Mar, Rheumatoid arthritis with rheumatoid factor of right wrist without organ or systems involvement M05.731 [place] [id number] [place] [address] Mar, Chronic pain G89.29 [place] [id number] [place] [address] Feb, Hyperlipemia E78.5 [place] [id number] [place] [address] Feb, Abnormal breath sounds R06.89 ; COPD with exacerbation J44.1 and Fatigue, unspecified type R53.83 [place] [id number] [place] [address] Feb, Neuropathy G62.9 ; Abnormal lung sounds R09.89 and Bronchitis J40 [facility] [id number] [place] [address] Feb, Bronchitis J40 [place] [id number] [place] [address] Feb, Chronic pain G89.29 [place] [id number] [place] [address] Jan, Type 2 diabetes mellitus with diabetic neuropathy, unspecified E11.40 ; Rheumatoid arthritis with rheumatoid factor of right wrist without organ or systems involvement M05.731 and Hyperlipemia E78.5 [place] [id number] [place] [address] Jan, Rheumatoid arthritis with rheumatoid factor of right wrist without organ or systems involvement M05.731 [place] [id number] [place] [address] 17 Jan, 2016 De Quervain's disease (radial styloid tenosynovitis) M65.4 ; Closed nondisplaced fracture of scaphoid of left wrist, unspecified portion of scaphoid, initial encounter S62.002A and Peripheral tear of medial meniscus of left knee, unspecified whether old or current tear, initial encounter S83.222A [place] [address] [address] Jan, Hypertension I10 ; Type 2 diabetes mellitus with diabetic neuropathy, unspecified E11.40 ; Hyperlipemia E78.5 ; Allergic rhinitis J30.9 ; Neuropathy G62.9 ; Rheumatoid arthritis with rheumatoid factor of right wrist without organ or systems involvement M05.731 ; Acute non-recurrent maxillary sinusitis J01.00 and Chronic pain G89.29 [place] [address] [address] Dec, [place] [address] [address] Dec, [place] [address] [address] Dec, Type 2 diabetes mellitus with diabetic neuropathy, unspecified E11.40 ; Emphysema, unspecified J43.9 ; Gastro-esophageal reflux disease without esophagitis K21.9 ; Hypertension I10 ; Hyperlipemia E78.5 ; Rheumatoid arthritis with rheumatoid factor of right wrist without organ or systems involvement M05.731 ; Elevated white blood cell count, unspecified D72.829 ; Acute non- recurrent frontal sinusitis J01.10 and Chronic pain G89.29 [place] [id number] [place] [address] Nov, [place] [address] [address] Nov, Elevated white blood cell count, unspecified D72.829 ; Encounter for immunization Z23 ; Rheumatoid arthritis with rheumatoid factor of right wrist without organ or systems involvement M05.731 ; Injury of left hand S69.92XA ; Pain in left knee M25.562 and Other chronic pain G89.29 [place] [id number] [place] [address] Nov, [facility] [id number] [place] [address] Nov, [place] [id number] [place] [address] Oct, [place] [id number] [place] [address] Oct, Hyperlipemia E78.5 [place] [id number] [place] [address] Oct, [place] [id number] [place] [address] Oct, Type 2 diabetes mellitus with diabetic neuropathy, unspecified E11.40 ; Neuropathy G62.9 ; Hypertension I10 ; Chronic pain G89.29 and Hyperlipemia E78.5 [place] [id number] [place] [address] Oct, Emphysema, unspecified J43.9 and Rheumatoid arthritis of left wrist without organ or system involvement with positive rheumatoid factor M05.732 [place] [id number] [place] [address] Sep, Chronic pain syndrome G89.4 [place] [id number] [place] [address] Sep, [place] [id number] [place] [address] Sep, [place] [id number] [place] [address] Sep, Closed nondisplaced fracture of scaphoid of left wrist, unspecified portion of scaphoid, initial encounter S62.002A [place] [address] [place] [address] Sep, Type 2 diabetes mellitus with diabetic neuropathy, unspecified E11.40 ; Hypertension I10 ; Hyperlipemia E78.5 and Acute non-recurrent maxillary sinusitis J01.00 [facility] [id number] [place] [address] Sep, [place] [id number] [place] [address] Sep, [place] [id number] [place] [address] Sep, [place] [address] [address] Sep, [place] [id number] [place] [address] Aug, Epigastric pain R10.13 and Right upper quadrant pain R10.11 [place] [id number] [place] [address] Aug, Closed nondisplaced fracture of scaphoid of left wrist, unspecified portion of scaphoid, initial encounter S62.002A [place] [id number] [place] [address] Aug, [place] [id number] [place] [address] Aug, [facility] [id number] [place] [address] Aug, Shortness of breath R06.02 ; Epigastric pain R10.13 and Injury of left lower arm, initial encounter S59.912A [place] [id number] [place] [address] Aug, Coronary artery disease involving [place] heart with angina pectoris, unspecified vessel or lesion type I25.119 ; Pulmonary emphysema, unspecified emphysema type J43.9 and Snoring R06.83 [place] [id number] [phone] Aug, [place] [address] [id number] [place] [phone] Aug, Emphysema, unspecified J43.9 ; 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 and Hypertension I10 [place] [id number] [place] [phone] July, [place] [id number] [place] [phone] July, Closed nondisplaced fracture of scaphoid of left wrist, unspecified portion of scaphoid, initial encounter S62.002A [place] [id number] [place] [phone] July, [place] [address] [place] [address] [id number] [place] [address] July, Type 2 diabetes mellitus with diabetic neuropathy, unspecified E11.40 ; Emphysema, unspecified J43.9 ; 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 ; [...] and Hospital discharge follow-up Z09 [place] [address] [address] July, [place] [address] [place] [id number] [place] [address] July, Type 2 diabetes mellitus with diabetic neuropathy, unspecified E11.40 [place] [id number] [place] [address] July, Type 2 diabetes mellitus with diabetic neuropathy, unspecified E11.40 and Rheumatoid arthritis of left wrist without organ or system involvement with positive rheumatoid factor M05.732 [facility] [address] [address] July, [facility] [address] [place] [id number] [address] July, [facility] [address] [address] Jun, [facility] [address] [address] Jun, [facility] [address] [address] Jun, 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 [facility] [address] [address] Jun, [facility] [id number] [place] [address] Jun, 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 [facility] [address] [address] Jun, [facility] [address] [address] Jun, [facility] [address] [address] Jun, Encounter for PPD test Z11.1 ; Rheumatoid arthritis with rheumatoid factor of right wrist without organ or systems involvement M05.731 and Rheumatoid arthritis of left wrist without organ or system involvement with positive rheumatoid factor M05.732 [facility] [address] [place] [address] [id number] [address] Jun, Type 2 diabetes mellitus with diabetic neuropathy, unspecified E11.40 [facility] [address] [place] [id number] [address] May, Type 2 diabetes mellitus with diabetic neuropathy, unspecified E11.40 ; Emphysema, unspecified J43.9 ; Rheumatoid arthritis with rheumatoid factor of right wrist without organ or systems involvement M05.731 ; Rheumatoid arthritis of left wrist without organ or system involvement with positive rheumatoid factor M05.732 and Chronic pain G89.29 [place] [address] [address] May, [place] [address] [address] May, Swelling of hand joint M25.449 ; Ankle swelling M25.473 and Joint pain M25.[address] [address] May, Emphysema, unspecified J43.[address] [address] May, Gastroenteritis K52.9 and Hypertension I10 [address] [address] Apr, [address] [address] Apr, [address] [address] Apr, [address] [address] Apr, Type 2 diabetes mellitus with diabetic neuropathy, unspecified E11.40 ; Emphysema, unspecified J43.9 ; 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 ; Migraine without aura, not intractable, with status migrainosus G43.001 ; Gastro-esophageal reflux disease without esophagitis K21.9 ; CAD (coronary artery disease) I25.10 ; Hypertension I10 ; Hyperlipemia E78.5 ; Allergic rhinitis J30.9 ; Neuropathy G62.9 ; Anxiety associated with depression F41.8 and Injury of left hand S69.92XA [address] [address] Apr, [id number] [place] [address] Apr, [address] [address] Apr, Type 2 diabetes mellitus with diabetic neuropathy, unspecified E11.40 ; Emphysema, unspecified J43.9 ; Essential (primary) hypertension I10 ; 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 ; Gastro-esophageal reflux disease without esophagitis K21.9 ; CAD (coronary artery disease) I25.10 ; Hyperlipemia E78.5 ; Hypertension I10 ; History of solitary pulmonary nodule Z87.898 ; Allergic rhinitis J30.9 ; Chronic pain G89.29 and Depression with anxiety F41.[address] [address] Mar, [address] [address] Mar, Allergic rhinitis J30.9 ; URI (upper respiratory infection) J06.9 and Other viral agents as the cause of diseases classified elsewhere B97.89 [facility] [address] [address] Feb, Acute nasopharyngitis [common cold] J00 and Acute diarrhea R19.[address] [address] Feb, Depression F32.[address] [address] Jan, Otitis media, right H66.[address] [address] Jan, [address] [address] 10 Jan, 2015 Type 2 diabetes mellitus with diabetic neuropathy, unspecified E11.40 [place] [address] [address] Jan, [place] [address] [address] Jan, Hyperlipemia E78.5 [place] [address] [address] Jan, Type 2 diabetes mellitus with diabetic neuropathy, unspecified E11.40 ; Emphysema, unspecified J43.9 ; CAD (coronary artery disease) I25.10 and Hyperlipemia E78.5 [place] [address] [address] Dec, Allergic rhinitis J30.9 and Fungal infection B49 [place] [address] [address] Dec, [place] [address] [address] Dec, [place] [address] [address] Dec, Chest pain R07.9 ; CAD (coronary artery disease) I25.10 ; Hypertension I10 and Hyperlipemia E78.5 [place] [address] [address] Dec, Pain in thoracic spine M54.6 ; Gastro-esophageal reflux disease without esophagitis K21.9 ; Emphysema, unspecified J43.9 and Migraine without aura, not intractable, with status migrainosus G43.001 [place] [address] [place] [id number] [place] [address] Dec, [place] [address] [address] Nov, Influenza vaccine administered V04.81 [place] [address] [address] Nov, [place] [address] [address] Sep, [facility] [address] [facility] [id number] [address] Sep, [facility] [address] [facility] [id number] [address] Sep, CAD (coronary artery disease) 414.00 and Diabetes type 2, uncontrolled 250.02 [facility] [address] [facility] [id number] [address] Sep, CAD (coronary artery disease) 414.00 ; Diabetes type 2, uncontrolled 250.02 and Migraine 346.90 IMMUNIZATIONS No Known Immunizations SOCIAL HISTORY Never Assessed REASON FOR VISIT Controlled Med Refill PLAN OF CARE VITAL SIGNS MEDICATIONS Medication Instructions Dosage Frequency Start Date End Date Duration Status Lyrica 100 mg Orally Three times a day 1 capsule 8h Dec, 30 days Active RESULTS No Results PROCEDURES No Known procedures INSTRUCTIONS MEDICATIONS ADMINISTERED No Known Medications MEDICAL (GENERAL) HISTORY Type Description Date Medical History COPD Medical History Type 2 Diabetes Medical History HTN Medical History Cardiac stents July 2010 post [place]-stent to LAD Medical History Rheumatoid Arthritis Medical History 04/2016---Echo- 60%//mild hypertrophy at the base of the septum, mild mitral regurg/ mild tricuspid regurg. PAP about 10-15 mmHg Medical History 04/2016------Normal Lexiscan Medical History Elevated white blood cell count, unspecified Medical History Atherosclerotic heart disease [place] coronary artery without angina pectoris Medical History [...]
--- OUTSIDE RECORDS SUMMARY | 2018-08-23 17:02 | XMS REPORT ---
Author Author BRANDIN REYES [facility] Address [address] [place] [address] Care Team Providers Care Mate Chief Name Role Phone BRANDIN REYES Unavailable PROBLEMS Type Condition ICD9-CM Code MZO15-YQ Code Onset Dates Condition Status SNOMED Code Problem Primary insomnia F51.01 Active 6195393 Problem Neuropathy G62.9 Active 486433857 Problem Periodontitis K05.30 Active 68121228 Problem Atherosclerotic heart disease of [place] coronary artery without angina pectoris I25.10 Active 000229502683378 Problem Vitamin D deficiency E55.9 Active 74278074 Problem Hammer toe of left foot M20.42 Active 197564396 Problem Other hammer toe(s) (acquired), left foot M20.42 Active 26165900 Problem Dependence on nocturnal oxygen therapy Z99.81 Active 87011128835640 Problem Tobacco abuse Z72.0 Active 197113946 Problem Other hammer toe(s) (acquired), right foot M20.41 Active 557557417 Problem Gastro-esophageal reflux disease without esophagitis K21.9 Active 779077172 Problem Emphysema, unspecified J43.9 Active 42357863 Problem Hypertension I10 Active 06135431 Problem Hyperlipemia E78.5 Active 28016576 Problem Anxiety associated with depression F41.8 Active 262869910 Problem Chronic pain G89.29 Active 08920640 Problem Type 2 diabetes mellitus with diabetic neuropathy, unspecified E11.40 Active 92249127 Problem OAB (overactive bladder) N32.81 Active 688532090 Problem Allergic rhinitis J30.9 Active 25750308 Problem Rheumatoid arthritis involving multiple sites with positive rheumatoid factor M05.79 Active 360951830 ALLERGIES No Information ENCOUNTERS Encounter Location Date Diagnosis [facility] [address] [facility] [id number] [address] Dec, [facility] [address] [place] [place] [id number] [address] Oct, [place] [id number] [place] [address] Sep, Rheumatoid arthritis involving multiple sites with positive rheumatoid factor M05.79 and Tobacco abuse Z72.0 [place] [id number] [place] [address] Sep, Chronic pain G89.29 [place] [id number] [place] [address] Aug, Type 2 diabetes mellitus with diabetic [...] (overactive bladder) N32.81 and Primary insomnia F51.01 [place] [id number] [place] [address] July, [place] [id number] [place] [address] July, [place] [id number] [place] [address] July, Chronic pain G89.29 [place] [id number] [place] [address] July, [place] [id number] [place] [address] July, Onychomycosis B35.1 ; Hammer toe of left foot M20.42 and Type 2 diabetes mellitus with diabetic neuropathy, unspecified E11.40 [place] [id number] [place] [address] July, [place] [id number] [place] [address] July, Chronic pain G89.29 and Neuropathy G62.9 [facility] [id number] [place] [address] July, [facility] [id number] [place] [address] July, [facility] [address] [address] Jun, [facility] [id number] [place] [address] Jun, Chronic pain G89.29 [facility] [id number] [place] [address] Jun, [facility] [id number] [place] [address] Jun, [facility] [id number] [place] [address] Jun, Visit for TB skin test Z11.1 [facility] [address] [address] 16 Jun, 2017 [facility] [id number] [place] [address] Jun, [facility] [id number] [place] [address] Jun, Tobacco abuse Z72.0 and Rheumatoid arthritis involving multiple sites with positive rheumatoid factor M05.79 [facility] [id number] [place] [address] Jun, Anxiety F41.9 ; Acute non-recurrent maxillary sinusitis J01.00 and Chronic pain G89.29 [facility] [id number] [place] [address] Jun, [facility] [id number] [place] [address] May, Rheumatoid arthritis involving multiple sites with positive rheumatoid factor M05.79 [place] [id number] [place] [address] May, Chronic pain G89.29 [place] [address] [place] [address] May, [place] [id number] [place] [address] May, [place] [id number] [place] [address] May, [place] [id number] [place] [address] May, Type 2 diabetes mellitus with diabetic neuropathy, unspecified E11.40 [place] [id number] [place] [address] May, Type 2 diabetes mellitus with diabetic neuropathy, unspecified E11.40 ; Emphysema, unspecified J43.9 ; Hypertension I10 ; Hyperlipemia E78.5 ; Vitamin D deficiency E55.9 ; Right medial knee pain M25.561 ; Controlled substance agreement signed Z79.899 ; Chronic pain G89.29 ; Allergic rhinitis J30.9 ; Anxiety associated with depression F41.8 ; Neuropathy G62.9 and Gastro- esophageal reflux disease without esophagitis K21.9 [place] [address] [place] [address] Apr, Chronic pain G89.29 [place] [address] [place] [address] 16 Apr, 2017 Other hammer toe(s) (acquired), left foot M20.42 ; Other hammer toe(s) (acquired), right foot M20.41 ; Type 2 diabetes mellitus with diabetic neuropathy, unspecified E11.40 and Onychomycosis B35.1 [place] [id number] [place] [address] Apr, Gastro-esophageal reflux disease without esophagitis K21.9 [facility] [id number] [place] [address] 02 Apr, 2017 Controlled substance agreement signed Z79.899 [facility] [id number] [place] [address] Mar, Chronic pain G89.29 [place] [address] [address] Mar, Emphysema, unspecified J43.9 and Type 2 diabetes mellitus with diabetic neuropathy, unspecified E11.40 [facility] [address] [address] Mar, Dysuria R30.0 ; Vaginal candidiasis B37.3 and Acute nonintractable headache, unspecified headache type R51 [place] [address] [address] Feb, Neuropathy G62.9 and Chronic pain G89.29 [place] [id number] [place] [address] Feb, Gastro-esophageal reflux disease without esophagitis K21.9 [place] [id number] [place] [address] Feb, [place] [id number] [place] [address] Feb, Rheumatoid arthritis involving multiple sites with positive rheumatoid factor M05.79 and COPD with acute exacerbation J44.1 [place] [id number] [place] [address] 08 Feb, 2017 Vaginal odor N89.8 ; Vaginal irritation N89.8 ; Candidal dermatitis B37.2 and Screening breast examination Z12.31 [place] [id number] [place] [address] 06 Feb, 2017 [place] [address] [address] Feb, [facility] [address] [address] Feb, [place] [address] [address] Feb, COPD with exacerbation J44.1 ; Tobacco abuse counseling Z71.6 ; Tobacco abuse Z72.0 ; Rheumatoid arthritis involving multiple sites with positive rheumatoid factor M05.79 and Hyperlipemia E78.5 [place] [address] [address] Feb, [facility] [address] [id number] Jan, [place] [address] [address] Jan, Chronic pain G89.29 [facility] [address] [id number] Jan, Dental examination Z01.20 [facility] [address] [place] [address] Jan, Back pain of lumbar region with sciatica M54.40 [facility] [address] [place] [id number] [place] [address] 15 Jan, 2017 Acute bacterial conjunctivitis of both eyes H10.[address] [address] 02 Jan, 2017 Chronic pain G89.29 [place] [address] [address] Dec, Type 2 diabetes mellitus with diabetic neuropathy, unspecified E11.40 ; Hypertension I10 ; Hyperlipemia E78.5 ; Gastro-esophageal reflux disease without esophagitis K21.9 ; Anxiety associated with depression F41.8 ; Allergic rhinitis J30.9 ; Neuropathy G62.9 and Dependence on nocturnal oxygen therapy Z99.[address] [address] Dec, [facility] [id number] [place] [address] Dec, [place] [address] [address] 09 Dec, 2016 Encounter for immunization Z23 [place] [address] [address] 05 Dec, 2016 Type 2 diabetes mellitus with diabetic neuropathy, unspecified E11.40 and Chronic pain G89.29 [place] [address] [address] 11 Nov, 2016 Gastro-esophageal reflux disease without esophagitis K21.9 [place] [id number] [place] [address] 11 Nov, 2016 Peripheral edema R60.9 and Chest pain in adult R07.9 [place] [address] [address] 07 Nov, 2016 Chronic pain G89.29 [place] [id number] [place] [address] Oct, [place] [id number] [place] [address] 30 Oct, 2016 [place] [id number] [place] [address] 17 Oct, 2016 Rheumatoid arthritis with rheumatoid factor of right wrist without organ or systems involvement M05.731 [place] [id number] [place] [address] Oct, [facility] [address] [address] Oct, Acute exacerbation of chronic obstructive pulmonary disease (COPD) J44.1 and Canker sore K12.0 [place] [id number] [place] [address] Oct, [place] [address] [address] Oct, [facility] [id number] [place] [address] Oct, Chronic pain G89.29 [facility] [address] [place] [id number] Oct, Dental examination Z01.20 [facility] [id number] [place] [address] Oct, Dental examination Z01.20 and Periodontitis K05.30 [facility] [id number] [place] [id number] Oct, Dental examination Z01.20 [facility] [id number] [place] [address] Sep, Abscess L02.91 [facility] [id number] [place] [address] Sep, Dental examination Z01.20 [facility] [id number] [place] [address] Sep, [facility] [id number] [place] [id number] Sep, Dental examination Z01.20 and Dental caries K02.9 [facility] [address] [place] [address] Sep, Primary insomnia F51.01 and Anxiety associated with depression F41.8 [facility] [id number] [place] [address] Sep, Rheumatoid arthritis with rheumatoid factor of right wrist without organ or systems involvement M05.731 [facility] [id number] [place] [address] Sep, Chronic pain G89.29 [facility] [id number] [place] [address] Sep, Type 2 diabetes mellitus with diabetic neuropathy, unspecified E11.40 ; Emphysema, unspecified J43.9 ; Gastro-esophageal reflux disease without esophagitis K21.9 ; Hypertension I10 ; Hyperlipemia E78.5 ; Anxiety associated with depression F41.8 ; Chronic pain G89.29 ; Vitamin D deficiency E55.9 and Primary insomnia F51.01 [place] [id number] [place] [address] 16 Aug, 2016 Anxiety associated with depression F41.8 [place] [id number] [place] [address] 13 Aug, 2016 Chronic pain G89.29 and Neuropathy G62.9 [place] [address] [address] Aug, Type 2 diabetes mellitus with diabetic neuropathy, unspecified E11.40 ; Rheumatoid arthritis involving multiple sites with positive rheumatoid factor M05.79 ; Vitamin D deficiency E55.9 ; Anxiety associated with depression F41.8 and Primary insomnia F51.01 [place] [id number] [place] [address] July, Emphysema, unspecified J43.9 [place] [id number] [place] [address] July, Allergic rhinitis J30.9 [place] [id number] [place] [address] July, Allergic rhinitis J30.9 ; Emphysema, unspecified J43.9 and Rheumatoid arthritis with rheumatoid factor of right wrist without organ or systems involvement M05.731 [place] [id number] [place] [address] July, Neuropathy G62.9 and Chronic pain G89.29 [place] [id number] [place] [address] July, Rheumatoid arthritis involving multiple sites with positive rheumatoid factor M05.79 [place] [address] [address] Jun, [place] [address] [place] [address] Jun, Neuropathy G62.9 and Chronic pain G89.29 [place] [id number] [place] [address] May, Neuropathy G62.9 and Chronic pain G89.29 [place] [id number] [place] [address] May, [place] [id number] [place] [address] May, [place] [id number] [place] [address] May, Type 2 diabetes mellitus with diabetic [...] system involvement with positive rheumatoid factor M05.732 [place] [address] [place] [address] Apr, Chronic pain G89.29 [place] [address] [place] [address] Mar, Gastro-esophageal reflux disease without esophagitis K21.9 [place] [id number] [place] [address] Mar, [place] [address] [place] [address] Mar, Rheumatoid arthritis with rheumatoid factor of right wrist without organ or systems involvement M05.731 [place] [id number] [place] [address] Mar, Chronic pain G89.29 [place] [address] [address] 30 Feb, 2016 Hyperlipemia E78.5 [place] [id number] [place] [address] Feb, Abnormal breath sounds R06.89 ; COPD with exacerbation J44.1 and Fatigue, unspecified type R53.83 [place] [id number] [place] [address] Feb, Neuropathy G62.9 ; Abnormal lung sounds R09.89 and Bronchitis J40 [facility] [id number] [place] [address] 18 Feb, 2016 Bronchitis J40 [place] [id number] [place] [address] 16 Feb, 2016 Chronic pain G89.29 [place] [id number] [place] [address] Jan, Type 2 diabetes mellitus with diabetic neuropathy, unspecified E11.40 ; Rheumatoid arthritis with rheumatoid factor of right wrist without organ or systems involvement M05.731 and Hyperlipemia E78.5 [place] [id number] [place] [address] Jan, Rheumatoid arthritis with rheumatoid factor of right wrist without organ or systems involvement M05.731 [place] [id number] [place] [address] 17 Jan, 2016 De Quervain's disease (radial styloid tenosynovitis) M65.4 ; Closed nondisplaced fracture of scaphoid of left wrist, unspecified portion of scaphoid, initial encounter S62.002A and Peripheral tear of medial meniscus of left knee, unspecified whether old or current tear, initial encounter S83.222A [place] [id number] [place] [address] Jan, Hypertension I10 ; Type 2 diabetes mellitus with diabetic neuropathy, unspecified E11.40 ; Hyperlipemia E78.5 ; Allergic rhinitis J30.9 ; Neuropathy G62.9 ; Rheumatoid arthritis with rheumatoid factor of right wrist without organ or systems involvement M05.731 ; Acute non-recurrent maxillary sinusitis J01.00 and Chronic pain G89.29 [place] [address] [address] Dec, [place] [address] [address] Dec, [place] [address] [address] Dec, Type 2 diabetes mellitus with diabetic neuropathy, unspecified E11.40 ; Emphysema, unspecified J43.9 ; Gastro-esophageal reflux disease without esophagitis K21.9 ; Hypertension I10 ; Hyperlipemia E78.5 ; Rheumatoid arthritis with rheumatoid factor of right wrist without organ or systems involvement M05.731 ; Elevated white blood cell count, unspecified D72.829 ; Acute non- recurrent frontal sinusitis J01.10 and Chronic pain G89.29 [place] [address] [address] Nov, [place] [address] [address] Nov, Elevated white blood cell count, unspecified D72.829 ; Encounter for immunization Z23 ; Rheumatoid arthritis with rheumatoid factor of right wrist without organ or systems involvement M05.731 ; Injury of left hand S69.92XA ; Pain in left knee M25.562 and Other chronic pain G89.29 [place] [address] [address] Nov, [place] [address] [address] Nov, [place] [address] [address] Oct, [place] [id number] [place] [address] Oct, Hyperlipemia E78.5 [place] [id number] [place] [address] Oct, [place] [id number] [place] [address] Oct, Type 2 diabetes mellitus with diabetic neuropathy, unspecified E11.40 ; Neuropathy G62.9 ; Hypertension I10 ; Chronic pain G89.29 and Hyperlipemia E78.5 [place] [address] [address] Oct, Emphysema, unspecified J43.9 and Rheumatoid arthritis of left wrist without organ or system involvement with positive rheumatoid factor M05.732 [place] [address] [address] Sep, Chronic pain syndrome G89.4 [place] [id number] [place] [address] Sep, [place] [id number] [place] [address] Sep, [place] [id number] [place] [address] Sep, Closed nondisplaced fracture of scaphoid of left wrist, unspecified portion of scaphoid, initial encounter S62.002A [place] [id number] [place] [address] Sep, Type 2 diabetes mellitus with diabetic neuropathy, unspecified E11.40 ; Hypertension I10 ; Hyperlipemia E78.5 and Acute non-recurrent maxillary sinusitis J01.00 [place] [address] [place] [address] Sep, [place] [id number] [place] [address] Sep, [facility] [address] [place] [address] Sep, [facility] [id number] [place] [address] Sep, [facility] [id number] [place] [address] Aug, Epigastric pain R10.13 and Right upper quadrant pain R10.11 [place] [id number] [place] [address] Aug, Closed nondisplaced fracture of scaphoid of left wrist, unspecified portion of scaphoid, initial encounter S62.002A [place] [id number] [place] [address] Aug, [place] [id number] [place] [address] Aug, [facility] [id number] [place] [address] Aug, Shortness of breath R06.02 ; Epigastric pain R10.13 and Injury of left lower arm, initial encounter S59.912A [place] [address] [place] [address] Aug, Coronary artery disease involving [place] heart with angina pectoris, unspecified vessel or lesion type I25.119 ; Pulmonary emphysema, unspecified emphysema type J43.9 and Snoring R06.83 [place] [id number] [place] [address] Aug, [facility] [id number] [place] [address] Aug, Emphysema, unspecified J43.9 ; Atherosclerotic heart disease of [place] coronary artery without angina pectoris I25.10 and Hypertension I10 [place] [id number] [place] [address] July, [place] [address] [address] July, Closed nondisplaced fracture of scaphoid of left wrist, unspecified portion of scaphoid, initial encounter S62.002A [place] [id number] [address] July, [place] [address] [place] [address] [id number] [place] [id number] July, Type 2 diabetes mellitus with diabetic [...] agents L24.89 and Hospital discharge follow-up Z09 [place] [id number] [place] [id number] July, [place] [address] [place] [id number] [place] [id number] July, Type 2 diabetes mellitus with diabetic neuropathy, unspecified E11.40 [place] [id number] [place] [id number] July, Type 2 diabetes mellitus with diabetic neuropathy, unspecified E11.40 and Rheumatoid arthritis of left wrist without organ or system involvement with positive rheumatoid factor M05.732 [facility] [id number] [place] [address] July, [facility] [id number] [place] [address] July, [place] [id number] [place] [address] Jun, [facility] [address] [address] Jun, [place] [address] [address] Jun, 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 [facility] [address] [address] Jun, [facility] [id number] [place] [address] Jun, 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 [facility] [address] [address] Jun, [place] [id number] [place] [address] Jun, [place] [address] [place] [address] Jun, Encounter for PPD test Z11.1 ; Rheumatoid arthritis with rheumatoid factor of right wrist without organ or systems involvement M05.731 and Rheumatoid arthritis of left wrist without organ or system involvement with positive rheumatoid factor M05.732 [facility] [address] [place] [address] Jun, Type 2 diabetes mellitus with diabetic neuropathy, unspecified E11.40 [facility] [address] [address] May, Type 2 diabetes mellitus with diabetic neuropathy, unspecified E11.40 ; Emphysema, unspecified J43.9 ; Rheumatoid arthritis with rheumatoid factor of right wrist without organ or systems involvement M05.731 ; Rheumatoid arthritis of left wrist without organ or system involvement with positive rheumatoid factor M05.732 and Chronic pain G89.29 [facility] [address] [address] May, [facility] [address] [address] May, Swelling of hand joint M25.449 ; Ankle swelling M25.473 and Joint pain M25.50 [facility] [id number] [place] [address] May, Emphysema, unspecified J43.9 [facility] [id number] [place] [address] May, Gastroenteritis K52.9 and Hypertension I10 [facility] [id number] [place] [address] Apr, [facility] [place] [id number] [place] [address] Apr, [facility] [address] [address] Apr, [facility] [place] [id number] [place] [address] Apr, Type 2 diabetes mellitus with diabetic [...] F41.8 and Injury of left hand S69.92XA [facility] [place] [address] [place] [address] Apr, [facility] [place] [id number] [place] [address] Apr, [facility] [id number] [place] [address] Apr, Type 2 diabetes mellitus with diabetic [...] pain G89.29 and Depression with anxiety F41.8 [facility] [address] [address] Mar, [address] [address] Mar, Allergic rhinitis J30.9 ; URI (upper respiratory infection) J06.9 and Other viral agents as the cause of diseases classified elsewhere B97.89 [facility] [address] [place] [address] Feb, Acute nasopharyngitis [common cold] J00 and Acute diarrhea R19.[address] [address] Feb, Depression F32.[address] [address] 18 Jan, 2015 Otitis media, right H66.[address] [address] 11 Jan, [address] [address] Jan, Type 2 diabetes mellitus with diabetic neuropathy, unspecified E11.40 [facility] [address] [address] Jan, [address] [address] 05 Jan, 2015 Hyperlipemia E78.5 [facility] [address] [address] 03 Jan, 2015 Type 2 diabetes mellitus with diabetic neuropathy, unspecified E11.40 ; Emphysema, unspecified J43.9 ; CAD (coronary artery disease) I25.10 and Hyperlipemia E78.5 [facility] [id number] [place] [address] Dec, Allergic rhinitis J30.9 and Fungal infection B49 [facility] [place] [address] [address] Dec, [facility] [address] [address] Dec, [place] [address] [address] Dec, Chest pain R07.9 ; CAD (coronary artery disease) I25.10 ; Hypertension I10 and Hyperlipemia E78.5 [facility] [place] [address] [address] Dec, Pain in thoracic spine M54.6 ; Gastro-esophageal reflux disease without esophagitis K21.9 ; Emphysema, unspecified J43.9 and Migraine without aura, not intractable, with status migrainosus G43.001 [facility] [place] [address] [address] Dec, [place] [address] [address] Nov, Influenza vaccine administered V04.[address] [address] Nov, [facility] [address] [address] Sep, [facility] [place] [id number] [place] [address] Sep, [facility] [address] [address] Sep, CAD (coronary artery disease) 414.00 and Diabetes type 2, uncontrolled 250.02 [facility] [place] [address] [address] Sep, CAD (coronary artery disease) 414.00 ; [...] Medical History Cardiac stents July 2010 post [place]-stent to LAD Medical History Rheumatoid Arthritis Medical [...]
--- OUTSIDE RECORDS SUMMARY | 2018-08-23 17:03 | XMS REPORT ---
Author Author DELEONROB MoranELE Organization [facility] Address [address] [place] [address] Care Team Providers Care Bmet Name Role Phone DELEONCLAU Moran Unavailable PROBLEMS Type Condition ICD9-CM Code [id number] Code Onset Dates Condition Status SNOMED Code Problem Primary insomnia F51.01 Active 3097839 Problem Neuropathy G62.9 Active 369716885 Problem Periodontitis K05.30 Active 97540780 Problem Atherosclerotic heart disease of [place] coronary artery without angina pectoris I25.10 Active 314393477757809 Problem Vitamin D deficiency E55.9 Active 08652344 Problem Hammer toe of left foot M20.42 Active 556982715 Problem Other hammer toe(s) (acquired), left foot M20.42 Active 54690578 Problem Dependence on nocturnal oxygen therapy Z99.81 Active 42422278753134 Problem Tobacco abuse Z72.0 Active 753972389 Problem Other hammer toe(s) (acquired), right foot M20.41 Active 826134994 Problem Gastro-esophageal reflux disease without esophagitis K21.9 Active 752603211 Problem Emphysema, unspecified J43.9 Active 10982892 Problem Hypertension I10 Active 12388842 Problem Hyperlipemia E78.5 Active 88280357 Problem Anxiety associated with depression F41.8 Active 830870455 Problem Chronic pain G89.29 Active 96346715 Problem Type 2 diabetes mellitus with diabetic neuropathy, unspecified E11.40 Active 73286243 Problem OAB (overactive bladder) N32.81 Active 172350501 Problem Allergic rhinitis J30.9 Active 87913259 Problem Rheumatoid arthritis involving multiple sites with positive rheumatoid factor M05.79 Active 214255017 ALLERGIES No Information ENCOUNTERS Encounter Location Date Diagnosis [facility] [address] [facility] [id number] [address] Dec, [facility] [id number] [address] Oct, [place] [id number] [place] [address] Sep, Rheumatoid arthritis involving multiple sites with positive rheumatoid factor M05.79 and Tobacco abuse Z72.0 [place] [id number] [place] [address] Sep, Chronic pain G89.29 [place] [id number] [place] [address] Aug, Type 2 diabetes mellitus with diabetic neuropathy, unspecified E11.40 ; Hypertension I10 ; Hyperlipemia E78.5 ; Gastro-esophageal reflux disease without esophagitis K21.9 ; Emphysema, unspecified J43.9 ; Anxiety associated with depression F41.8 ; Vitamin D deficiency E55.9 ; Chronic pain G89.29 ; Tobacco abuse Z72.0 ; Overweight (BMI 25.0-29.9) E66.3 ; Atherosclerotic heart disease of [place] coronary artery without angina pectoris I25.10 ; OAB (overactive bladder) N32.81 and Primary insomnia F51.01 [place] [id number] [place] [address] July, [place] [id number] [place] [address] July, [place] [id number] [place] [address] July, Chronic pain G89.29 [place] [id number] [place] [address] July, [place] [id number] [place] [address] July, Onychomycosis B35.1 ; Hammer toe of left foot M20.42 and Type 2 diabetes mellitus with diabetic neuropathy, unspecified E11.40 [place] [address] [place] [address] July, [place] [id number] [place] [address] July, Chronic pain G89.29 and Neuropathy G62.9 [facility] [id number] [place] [address] July, [facility] [id number] [place] [address] July, [facility] [address] [address] Jun, [facility] [id number] [place] [address] Jun, Chronic pain G89.29 [facility] [id number] [place] [address] Jun, [facility] [id number] [place] [address] Jun, [facility] [id number] [place] [address] Jun, Visit for TB skin test Z11.1 [facility] [id number] [place] [address] 16 Jun, 2017 [facility] [id number] [place] [address] Jun, [facility] [id number] [place] [address] Jun, Tobacco abuse Z72.0 and Rheumatoid arthritis involving multiple sites with positive rheumatoid factor M05.79 [facility] [id number] [place] [address] Jun, Anxiety F41.9 ; Acute non-recurrent maxillary sinusitis J01.00 and Chronic pain G89.29 [facility] [id number] [place] [address] Jun, [facility] [id number] [place] [address] May, Rheumatoid arthritis involving multiple sites with positive rheumatoid factor M05.79 [place] [id number] [place] [address] May, Chronic pain G89.29 [place] [address] [place] [address] May, [place] [id number] [place] [address] May, [place] [id number] [place] [address] May, [place] [id number] [place] [address] May, Type 2 diabetes mellitus with diabetic neuropathy, unspecified E11.40 [place] [id number] [place] [address] May, Type 2 diabetes mellitus with diabetic neuropathy, unspecified E11.40 ; Emphysema, unspecified J43.9 ; Hypertension I10 ; Hyperlipemia E78.5 ; Vitamin D deficiency E55.9 ; Right medial knee pain M25.561 ; Controlled substance agreement signed Z79.899 ; Chronic pain G89.29 ; Allergic rhinitis J30.9 ; Anxiety associated with depression F41.8 ; Neuropathy G62.9 and Gastro- esophageal reflux disease without esophagitis K21.9 [place] [address] [place] [address] Apr, Chronic pain G89.29 [place] [address] [place] [address] 16 Apr, 2017 Other hammer toe(s) (acquired), left foot M20.42 ; Other hammer toe(s) (acquired), right foot M20.41 ; Type 2 diabetes mellitus with diabetic neuropathy, unspecified E11.40 and Onychomycosis B35.1 [place] [id number] [place] [address] Apr, Gastro-esophageal reflux disease without esophagitis K21.9 [facility] [id number] [place] [address] 02 Apr, 2017 Controlled substance agreement signed Z79.899 [facility] [id number] [place] [address] Mar, Chronic pain G89.29 [facility] [address] [address] Mar, Emphysema, unspecified J43.9 and Type 2 diabetes mellitus with diabetic neuropathy, unspecified E11.40 [facility] [address] [address] Mar, Dysuria R30.0 ; Vaginal candidiasis B37.3 and Acute nonintractable headache, unspecified headache type R51 [place] [address] [address] Feb, Neuropathy G62.9 and Chronic pain G89.29 [place] [id number] [place] [address] Feb, Gastro-esophageal reflux disease without esophagitis K21.9 [place] [id number] [place] [address] Feb, [place] [id number] [place] [address] Feb, Rheumatoid arthritis involving multiple sites with positive rheumatoid factor M05.79 and COPD with acute exacerbation J44.1 [place] [id number] [place] [address] Feb, Vaginal odor N89.8 ; Vaginal irritation N89.8 ; Candidal dermatitis B37.2 and Screening breast examination Z12.31 [place] [id number] [place] [address] Feb, [place] [address] [address] Feb, [facility] [address] [address] Feb, [place] [address] [id number] Feb, COPD with exacerbation J44.1 ; Tobacco abuse counseling Z71.6 ; Tobacco abuse Z72.0 ; Rheumatoid arthritis involving multiple sites with positive rheumatoid factor M05.79 and Hyperlipemia E78.5 [place] [address] [address] Feb, [facility] [address] [id number] Jan, [place] [address] [address] Jan, Chronic pain G89.29 [facility] [address] [id number] Jan, Dental examination Z01.20 [facility] [address] [place] [address] Jan, Back pain of lumbar region with sciatica M54.40 [facility] [address] [address] 15 Jan, 2017 Acute bacterial conjunctivitis of both eyes H10.[address] [address] 02 Jan, 2017 Chronic pain G89.29 [place] [address] [address] Dec, Type 2 diabetes mellitus with diabetic neuropathy, unspecified E11.40 ; Hypertension I10 ; Hyperlipemia E78.5 ; Gastro-esophageal reflux disease without esophagitis K21.9 ; Anxiety associated with depression F41.8 ; Allergic rhinitis J30.9 ; Neuropathy G62.9 and Dependence on nocturnal oxygen therapy Z99.[address] [address] Dec, [facility] [id number] [place] [address] Dec, [place] [address] [address] 09 Dec, 2016 Encounter for immunization Z23 [place] [address] [address] 05 Dec, 2016 Type 2 diabetes mellitus with diabetic neuropathy, unspecified E11.40 and Chronic pain G89.29 [place] [address] [address] 11 Nov, 2016 Gastro-esophageal reflux disease without esophagitis K21.9 [place] [address] [address] 11 Nov, 2016 Peripheral edema R60.9 and Chest pain in adult R07.9 [place] [address] [address] 07 Nov, 2016 Chronic pain G89.29 [place] [id number] [place] [address] Oct, [place] [id number] [place] [address] 30 Oct, 2016 [place] [id number] [place] [address] 17 Oct, 2016 Rheumatoid arthritis with rheumatoid factor of right wrist without organ or systems involvement M05.731 [place] [id number] [place] [address] 15 Oct, 2016 [facility] [address] [address] Oct, Acute exacerbation of chronic obstructive pulmonary disease (COPD) J44.1 and Canker sore K12.0 [place] [id number] [place] [address] Oct, [place] [address] [address] Oct, [facility] [id number] [place] [address] Oct, Chronic pain G89.29 [facility] [id number] [place] [id number] Oct, Dental examination Z01.20 [facility] [id number] [place] [address] Oct, Dental examination Z01.20 and Periodontitis K05.30 [facility] [id number] [place] [id number] Oct, Dental examination Z01.20 [facility] [id number] [place] [address] Sep, Abscess L02.91 [facility] [address] [address] Sep, Dental examination Z01.20 [facility] [id number] [place] [address] Sep, [facility] [id number] [place] [id number] Sep, Dental examination Z01.20 and Dental caries K02.9 [facility] [id number] [place] [address] Sep, Primary insomnia F51.01 and Anxiety associated with depression F41.8 [facility] [id number] [place] [address] Sep, Rheumatoid arthritis with rheumatoid factor of right wrist without organ or systems involvement M05.731 [facility] [id number] [place] [address] Sep, Chronic pain G89.29 [facility] [id number] [place] [address] Sep, Type 2 diabetes mellitus with diabetic neuropathy, unspecified E11.40 ; Emphysema, unspecified J43.9 ; Gastro-esophageal reflux disease without esophagitis K21.9 ; Hypertension I10 ; Hyperlipemia E78.5 ; Anxiety associated with depression F41.8 ; Chronic pain G89.29 ; Vitamin D deficiency E55.9 and Primary insomnia F51.01 [place] [id number] [place] [address] 16 Aug, 2016 Anxiety associated with depression F41.8 [place] [id number] [place] [address] 13 Aug, 2016 Chronic pain G89.29 and Neuropathy G62.9 [place] [id number] [place] [address] 13 Aug, 2016 Type 2 diabetes mellitus with diabetic neuropathy, unspecified E11.40 ; Rheumatoid arthritis involving multiple sites with positive rheumatoid factor M05.79 ; Vitamin D deficiency E55.9 ; Anxiety associated with depression F41.8 and Primary insomnia F51.01 [place] [id number] [place] [address] July, Emphysema, unspecified J43.9 [place] [id number] [place] [address] July, Allergic rhinitis J30.9 [place] [id number] [place] [address] July, Allergic rhinitis J30.9 ; Emphysema, unspecified J43.9 and Rheumatoid arthritis with rheumatoid factor of right wrist without organ or systems involvement M05.731 [place] [id number] [place] [address] July, Neuropathy G62.9 and Chronic pain G89.29 [place] [id number] [place] [address] July, Rheumatoid arthritis involving multiple sites with positive rheumatoid factor M05.79 [place] [id number] [place] [address] Jun, [place] [address] [place] [address] Jun, Neuropathy G62.9 and Chronic pain G89.29 [place] [id number] [place] [address] May, Neuropathy G62.9 and Chronic pain G89.29 [place] [id number] [place] [address] May, [place] [id number] [place] [address] May, [place] [id number] [place] [address] May, Type 2 diabetes mellitus with diabetic [...] system involvement with positive rheumatoid factor M05.732 [place] [address] [place] [address] Apr, Chronic pain G89.29 [place] [address] [place] [address] Mar, Gastro-esophageal reflux disease without esophagitis K21.9 [place] [id number] [place] [address] Mar, [place] [id number] [place] [address] Mar, Rheumatoid arthritis with rheumatoid factor of right wrist without organ or systems involvement M05.731 [place] [id number] [place] [address] Mar, Chronic pain G89.29 [place] [id number] [place] [address] 30 Feb, 2016 Hyperlipemia E78.5 [place] [id number] [place] [address] Feb, Abnormal breath sounds R06.89 ; COPD with exacerbation J44.1 and Fatigue, unspecified type R53.83 [place] [id number] [place] [address] Feb, Neuropathy G62.9 ; Abnormal lung sounds R09.89 and Bronchitis J40 [facility] [id number] [place] [address] 18 Feb, 2016 Bronchitis J40 [place] [id number] [place] [address] Feb, Chronic pain G89.29 [place] [id number] [place] [address] Jan, Type 2 diabetes mellitus with diabetic neuropathy, unspecified E11.40 ; Rheumatoid arthritis with rheumatoid factor of right wrist without organ or systems involvement M05.731 and Hyperlipemia E78.5 [place] [id number] [place] [address] Jan, Rheumatoid arthritis with rheumatoid factor of right wrist without organ or systems involvement M05.731 [place] [id number] [place] [address] 17 Jan, 2016 De Quervain's disease (radial styloid tenosynovitis) M65.4 ; Closed nondisplaced fracture of scaphoid of left wrist, unspecified portion of scaphoid, initial encounter S62.002A and Peripheral tear of medial meniscus of left knee, unspecified whether old or current tear, initial encounter S83.222A [place] [id number] [place] [address] Jan, Hypertension I10 ; Type 2 diabetes mellitus with diabetic neuropathy, unspecified E11.40 ; Hyperlipemia E78.5 ; Allergic rhinitis J30.9 ; Neuropathy G62.9 ; Rheumatoid arthritis with rheumatoid factor of right wrist without organ or systems involvement M05.731 ; Acute non-recurrent maxillary sinusitis J01.00 and Chronic pain G89.29 [place] [address] [address] Dec, [place] [address] [address] Dec, [place] [address] [address] Dec, Type 2 diabetes mellitus with diabetic neuropathy, unspecified E11.40 ; Emphysema, unspecified J43.9 ; Gastro-esophageal reflux disease without esophagitis K21.9 ; Hypertension I10 ; Hyperlipemia E78.5 ; Rheumatoid arthritis with rheumatoid factor of right wrist without organ or systems involvement M05.731 ; Elevated white blood cell count, unspecified D72.829 ; Acute non- recurrent frontal sinusitis J01.10 and Chronic pain G89.29 [place] [address] [address] Nov, [address] [address] Nov, Elevated white blood cell count, unspecified D72.829 ; Encounter for immunization Z23 ; Rheumatoid arthritis with rheumatoid factor of right wrist without organ or systems involvement M05.731 ; Injury of left hand S69.92XA ; Pain in left knee M25.562 and Other chronic pain G89.29 [place] [address] [address] Nov, [place] [address] [address] Nov, [place] [address] [address] Oct, [facility] [id number] [place] [address] Oct, Hyperlipemia E78.5 [place] [id number] [place] [address] Oct, [facility] [id number] [place] [address] Oct, Type 2 diabetes mellitus with diabetic neuropathy, unspecified E11.40 ; Neuropathy G62.9 ; Hypertension I10 ; Chronic pain G89.29 and Hyperlipemia E78.5 [place] [address] [address] Oct, Emphysema, unspecified J43.9 and Rheumatoid arthritis of left wrist without organ or system involvement with positive rheumatoid factor M05.732 [place] [address] [address] Sep, Chronic pain syndrome G89.4 [place] [id number] [place] [address] Sep, [place] [id number] [place] [address] Sep, [place] [id number] [place] [address] Sep, Closed nondisplaced fracture of scaphoid of left wrist, unspecified portion of scaphoid, initial encounter S62.002A [place] [address] [place] [address] Sep, Type 2 diabetes mellitus with diabetic neuropathy, unspecified E11.40 ; Hypertension I10 ; Hyperlipemia E78.5 and Acute non-recurrent maxillary sinusitis J01.00 [place] [id number] [place] [address] Sep, [facility] [id number] [place] [address] Sep, [facility] [address], [place] [address] Sep, [facility] [id number] [place] [address] Sep, [facility] [id number] [place] [address] Aug, Epigastric pain R10.13 and Right upper quadrant pain R10.11 [place] [id number] [place] [address] Aug, Closed nondisplaced fracture of scaphoid of left wrist, unspecified portion of scaphoid, initial encounter S62.002A [place] [address] [place] [address] Aug, [facility] [id number] [place] [address] Aug, [facility] [address] [place] [address] Aug, Shortness of breath R06.02 ; Epigastric pain R10.13 and Injury of left lower arm, initial encounter S59.912A [place] [address] [place] [address] Aug, Coronary artery disease involving [place] heart with angina pectoris, unspecified vessel or lesion type I25.119 ; Pulmonary emphysema, unspecified emphysema type J43.9 and Snoring R06.83 [place] [address] [place] [address] Aug, [facility] [id number] [place] [address] Aug, Emphysema, unspecified J43.9 ; Atherosclerotic heart disease of [place] coronary artery without angina pectoris I25.10 and Hypertension I10 [place] [address] [place] [address] July, [place] [address] [address] July, Closed nondisplaced fracture of scaphoid of left wrist, unspecified portion of scaphoid, initial encounter S62.002A [place] [address], [place] [address] July, [place] [address] [place] [id number] [place] [phone] July, Type 2 diabetes mellitus with diabetic neuropathy, unspecified E11.40 ; Emphysema, unspecified J43.9 ; Atherosclerotic heart disease of [place] coronary artery without angina pectoris I25.10 [...] agents L24.89 and Hospital discharge follow-up Z09 [place] [id number] [place] [phone] July, [place] [address] [place] [id number] [place] [phone] July, Type 2 diabetes mellitus with diabetic neuropathy, unspecified E11.40 [place] [id number] [place] [phone] July, Type 2 diabetes mellitus with diabetic neuropathy, unspecified E11.40 and Rheumatoid arthritis of left wrist without organ or system involvement with positive rheumatoid factor M05.732 [place] [id number] [place] [id number] July, [place] [address] [place] [id number] [place] [phone] July, [place] [id number], [place] [address] Jun, [place] [id number], [place] [address] Jun, [facility] [address], [place] [address] Jun, 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 [facility] [id number], [place] [address] Jun, [facility] [address] [place] [id number] [place] [address] Jun, 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 [place] [id number], [place] [address] Jun, [place] [id number] [place] [phone] Jun, [place] [id number] [place] [address] Jun, Encounter for PPD test Z11.1 ; Rheumatoid arthritis with rheumatoid factor of right wrist without organ or systems involvement M05.731 and Rheumatoid arthritis of left wrist without organ or system involvement with positive rheumatoid factor M05.732 [place] [address], [place] [address] Jun, Type 2 diabetes mellitus with diabetic neuropathy, unspecified E11.40 [place] [address], [place] [address] May, Type 2 diabetes mellitus with diabetic neuropathy, unspecified E11.40 ; Emphysema, unspecified J43.9 ; Rheumatoid arthritis with rheumatoid factor of right wrist without organ or systems involvement M05.731 ; Rheumatoid arthritis of left wrist without organ or system involvement with positive rheumatoid factor M05.732 and Chronic pain G89.29 [place] [id number], [place] [address] May, [facility] [address], [place] [address] May, Swelling of hand joint M25.449 ; Ankle swelling M25.473 and Joint pain M25.50 [place] [address] [place] [id number] [place] [address] May, Emphysema, unspecified J43.9 [place] [address] [place] [id number] [place] [address] May, Hypertension I10 and Gastroenteritis K52.9 [place] [address] [address] Apr, [place] [address] [address] Apr, [place] [address] [address] Apr, [place] [address] [place] [id number] [place] [address] Apr, Type 2 diabetes mellitus with diabetic neuropathy, unspecified E11.40 ; Emphysema, unspecified J43.9 ; Atherosclerotic heart disease of [place] coronary artery without angina pectoris I25.10 ; Migraine without aura, not intractable, with status migrainosus G43.001 ; Gastro-esophageal reflux disease without esophagitis K21.9 ; CAD (coronary artery disease) I25.10 ; Hypertension I10 ; Hyperlipemia E78.5 ; Allergic rhinitis J30.9 ; Neuropathy G62.9 ; Anxiety associated with depression F41.8 and Injury of left hand S69.92XA [place] [id number] [place] [address] Apr, [place] [address] [place] [id number] [place] [address] Apr, [place] [address] [place] [id number] [place] [address] Apr, Type 2 diabetes mellitus with diabetic neuropathy, unspecified E11.40 ; Emphysema, unspecified J43.9 ; Essential (primary) hypertension I10 ; Atherosclerotic heart disease of [place] coronary artery without angina pectoris I25.10 ; Gastro-esophageal reflux disease without esophagitis K21.9 ; CAD (coronary artery disease) I25.10 ; Hyperlipemia E78.5 ; Hypertension I10 ; History of solitary pulmonary nodule Z87.898 ; Allergic rhinitis J30.9 ; Chronic pain G89.29 and Depression with anxiety F41.8 [place] [address] [place] [id number] [place] [address] Mar, [address] [address] Mar, Allergic rhinitis J30.9 ; URI (upper respiratory infection) J06.9 and Other viral agents as the cause of diseases classified elsewhere B97.89 [facility] [address] [place] [address] Feb, Acute nasopharyngitis [common cold] J00 and Acute diarrhea R19.[address] [address] Feb, Depression F32.[address] [address] 18 Jan, 2015 Otitis media, right H66.[address] [address] 11 Jan, [address] [address] Jan, Type 2 diabetes mellitus with diabetic neuropathy, unspecified E11.40 [place] [address] [place] [id number] [place] [address] Jan, [address] [address] 05 Jan, 2015 Hyperlipemia E78.5 [place] [address] [address] 03 Jan, 2015 Type 2 diabetes mellitus with diabetic neuropathy, unspecified E11.40 ; Emphysema, unspecified J43.9 ; CAD (coronary artery disease) I25.10 and Hyperlipemia E78.5 [place] [address] [place] [id number] [place] [address] Dec, Allergic rhinitis J30.9 and Fungal infection B49 [place] [address] [address] Dec, [place] [address] [address] Dec, [place] [address] [address] Dec, Chest pain R07.9 ; CAD (coronary artery disease) I25.10 ; Hypertension I10 and Hyperlipemia E78.5 [place] [address] [address] Dec, Pain in thoracic spine M54.6 ; Gastro-esophageal reflux disease without esophagitis K21.9 ; Emphysema, unspecified J43.9 and Migraine without aura, not intractable, with status migrainosus G43.001 [place] [address] [address] Dec, [place] [address] [address] Nov, Influenza vaccine administered V04.[address] [address] Nov, [place] [address] [address] Sep, [place] [address] [place] [id number] [place] [address] Sep, [place] [address] [address] Sep, CAD (coronary artery disease) 414.00 and Diabetes type 2, uncontrolled 250.02 [place] [address] [address] Sep, CAD (coronary artery disease) 414.00 ; [...] unspecified Medical History Atherosclerotic heart disease of [place] coronary artery without angina pectoris Medical [...]
--- OUTSIDE RECORDS SUMMARY | 2018-08-23 17:04 | XMS REPORT ---
Author Author DELEONROB MoranELE [facility] Address [address] [place] [address] Care Team Providers Care Manager Staffing Name Role Phone DELEONCLAU Moran Unavailable PROBLEMS Type Condition ICD9-CM Code [id number] Code Onset Dates Condition Status SNOMED Code Problem Primary insomnia F51.01 Active 5057362 Problem Neuropathy G62.9 Active 269330863 Problem Periodontitis K05.30 Active 06596179 Problem Atherosclerotic heart disease of [place] coronary artery without angina pectoris I25.10 Active [id number] Problem Vitamin D deficiency E55.9 Active 07020715 Problem Hammer toe of left foot M20.42 Active 936368362 Problem Other hammer toe(s) (acquired), left foot M20.42 Active 51726702 Problem Dependence on nocturnal oxygen therapy Z99.81 Active 74590612356122 Problem Tobacco abuse Z72.0 Active 689511164 Problem Other hammer toe(s) (acquired), right foot M20.41 Active 369332165 Problem Gastro-esophageal reflux disease without esophagitis K21.9 Active 680122462 Problem Emphysema, unspecified J43.9 Active 04597925 Problem Hypertension I10 Active 08118796 Problem Hyperlipemia E78.5 Active 01571015 Problem Anxiety associated with depression F41.8 Active 204675291 Problem Chronic pain G89.29 Active 30403970 Problem Type 2 diabetes mellitus with diabetic neuropathy, unspecified E11.40 Active 65889370 Problem OAB (overactive bladder) N32.81 Active 519948008 Problem Allergic rhinitis J30.9 Active 81720247 Problem Rheumatoid arthritis involving multiple sites with positive rheumatoid factor M05.79 Active 306956316 ALLERGIES No Information ENCOUNTERS Encounter Location Date Diagnosis [facility] [address] [facility] [id number] [address] Oct, [facility] [address] [facility] [id number] [place] [address] Sep, Rheumatoid arthritis involving multiple sites with positive rheumatoid factor M05.79 and Tobacco abuse Z72.[address] [address] Sep, Chronic pain G89.29 [place] [address] [address] Aug, Type 2 diabetes mellitus with diabetic neuropathy, unspecified E11.40 ; Hypertension I10 ; Hyperlipemia E78.5 ; Gastro-esophageal reflux disease without esophagitis K21.9 ; Emphysema, unspecified J43.9 ; Anxiety associated with depression F41.8 ; Vitamin D deficiency E55.9 ; Chronic pain G89.29 ; Tobacco abuse Z72.0 ; Overweight (BMI 25.0-29.9) E66.3 ; Atherosclerotic heart disease of [place] coronary artery without angina pectoris I25.10 ; OAB (overactive bladder) N32.81 and Primary insomnia F51.01 [place] [address] [address] July, [place] [address] [address] July, [place] [address] [address] July, Chronic pain G89.29 [place] [address] [place] [id number] [place] [address] July, [address] [address] July, Onychomycosis B35.1 ; Hammer toe of left foot M20.42 and Type 2 diabetes mellitus with diabetic neuropathy, unspecified E11.40 [place] [address] [place] [id number] [place] [address] July, [place] [address] [place] [id number] [place] [address] July, Chronic pain G89.29 and Neuropathy G62.9 [facility] [id number] [place] [address] July, [facility] [address] [place] [id number] [place] [address] July, [facility] [address] [place] [id number] [place] [address] Jun, [facility] [address] [place] [id number] [place] [address] Jun, Chronic pain G89.29 [facility] [address] [place] [id number] [place] [address] Jun, [facility] [address] [place] [id number] [place] [address] Jun, [facility] [address] [place] [id number] [place] [address] Jun, Visit for TB skin test Z11.1 [facility] [address] [place] [id number] [place] [address] Jun, [facility] [address] [place] [id number] [place] [address] Jun, [facility] [address] [place] [id number] [place] [address] Jun, Tobacco abuse Z72.0 and Rheumatoid arthritis involving multiple sites with positive rheumatoid factor M05.79 [facility] [address] [place] [id number] [place] [address] Jun, Anxiety F41.9 ; Acute non-recurrent maxillary sinusitis J01.00 and Chronic pain G89.29 [facility] [address] [place] [id number] [place] [address] Jun, [facility] [address] [place] [id number] [place] [address] May, Rheumatoid arthritis involving multiple sites with positive rheumatoid factor M05.79 [place] [address] [address] May, Chronic pain G89.29 [place] [address] [place] [id number] [place] [address] May, [place] [address] [place] [id number] [place] [address] May, [place] [address] [place] [id number] [place] [address] May, [place] [address] [place] [id number] [place] [address] May, Type 2 diabetes mellitus with diabetic neuropathy, unspecified E11.40 [place] [address] [place] [id number] [place] [address] May, Type 2 diabetes mellitus with diabetic neuropathy, unspecified E11.40 ; Emphysema, unspecified J43.9 ; Hypertension I10 ; Hyperlipemia E78.5 ; Vitamin D deficiency E55.9 ; Right medial knee pain M25.561 ; Controlled substance agreement signed Z79.899 ; Chronic pain G89.29 ; Allergic rhinitis J30.9 ; Anxiety associated with depression F41.8 ; Neuropathy G62.9 and Gastro- esophageal reflux disease without esophagitis K21.9 [place] [id number] [place] [address] 22 Apr, 2017 Chronic pain G89.29 [place] [address] [place] [id number] [place] [address] 16 Apr, 2017 Other hammer toe(s) (acquired), left foot M20.42 ; Other hammer toe(s) (acquired), right foot M20.41 ; Type 2 diabetes mellitus with diabetic neuropathy, unspecified E11.40 and Onychomycosis B35.1 [place] [address] [address] 2017 Gastro-esophageal reflux disease without esophagitis K21.9 [place] [address] [place] [address] [address] Apr, Controlled substance agreement signed Z79.899 [place] [address] [address] Mar, Chronic pain G89.29 [place] [address] [address] Mar, Emphysema, unspecified J43.9 and Type 2 diabetes mellitus with diabetic neuropathy, unspecified E11.40 [facility] [address] [address] Mar, Dysuria R30.0 ; Vaginal candidiasis B37.3 and Acute nonintractable headache, unspecified headache type R51 [place] [address] [address] Feb, Neuropathy G62.9 and Chronic pain G89.29 [place] [address] [address] Feb, Gastro-esophageal reflux disease without esophagitis K21.9 [place] [address] [address] Feb, [place] [address] [address] Feb, Rheumatoid arthritis involving multiple sites with positive rheumatoid factor M05.79 and COPD with acute exacerbation J44.1 [place] [address] [address] Feb, Vaginal odor N89.8 ; Vaginal irritation N89.8 ; Candidal dermatitis B37.2 and Screening breast examination Z12.31 [place] [address] [address] Feb, [place] [address] [address] Feb, [place] [address] [address] Feb, [place] [address] [address] Feb, COPD with exacerbation J44.1 ; Tobacco abuse counseling Z71.6 ; Tobacco abuse Z72.0 ; Rheumatoid arthritis involving multiple sites with positive rheumatoid factor M05.79 and Hyperlipemia E78.5 [place] [address] [address] Feb, [facility] [address] [id number] Jan, [place] [address] [address] Jan, Chronic pain G89.29 [facility] [address] [id number] Jan, Dental examination Z01.20 [facility] [address] [place] [address] Jan, Back pain of lumbar region with sciatica M54.40 [facility] [address] [place] [address] 15 Jan, 2017 Acute bacterial conjunctivitis of both eyes H10.[address] [address] 02 Jan, 2017 Chronic pain G89.29 [place] [address] [address] Dec, Type 2 diabetes mellitus with diabetic neuropathy, unspecified E11.40 ; Hypertension I10 ; Hyperlipemia E78.5 ; Gastro-esophageal reflux disease without esophagitis K21.9 ; Anxiety associated with depression F41.8 ; Allergic rhinitis J30.9 ; Neuropathy G62.9 and Dependence on nocturnal oxygen therapy Z99.81 [place] [address] [address] Dec, [place] [address] [address] Dec, [facility] [address] [place] [id number] [place] [address] 09 Dec, 2016 Encounter for immunization Z23 [facility] [address] [place] [id number] [place] [address] 05 Dec, 2016 Type 2 diabetes mellitus with diabetic neuropathy, unspecified E11.40 and Chronic pain G89.29 [place] [address] [address] 11 Nov, 2016 Gastro-esophageal reflux disease without esophagitis K21.9 [place] [address] [address] 11 Nov, 2016 Peripheral edema R60.9 and Chest pain in adult R07.9 [place] [address] [address] 07 Nov, 2016 Chronic pain G89.29 [place] [address] [place] [id number] [place] [address] 31 Oct, 2016 [place] [address] [place] [id number] [place] [address] 30 Oct, 2016 [place] [address] [place] [id number] [place] [address] 17 Oct, 2016 Rheumatoid arthritis with rheumatoid factor of right wrist without organ or systems involvement M05.731 [place] [address] [place] [id number] [place] [address] 15 Oct, 2016 [facility] [address] [place] [id number] [place] [address] 14 Oct, 2016 Acute exacerbation of chronic obstructive pulmonary disease (COPD) J44.1 and Canker sore K12.0 [facility] [address] [place] [id number] [place] [address] Oct, [facility] [address] [place] [id number] [place] [address] Oct, [place] [address] [place] [id number] [place] [address] Oct, Chronic pain G89.29 [facility] [address] [id number] Oct, Dental examination Z01.20 [facility] [address] [place] [id number] [place] [address] Oct, Dental examination Z01.20 and Periodontitis K05.30 [facility] [address] [place] [id number] [place] [id number] Oct, Dental examination Z01.20 [facility] [address] [address] Sep, Abscess L02.91 [facility] [address] [address] Sep, Dental examination Z01.20 [facility] [address] [place] [id number] [place] [address] Sep, [facility] [address] [place] [id number] [place] [id number] Sep, Dental examination Z01.20 and Dental caries K02.9 [facility] [address] [place] [id number] [place] [address] Sep, Primary insomnia F51.01 and Anxiety associated with depression F41.8 [place] [address] [place] [id number] [place] [address] Sep, Rheumatoid arthritis with rheumatoid factor of right wrist without organ or systems involvement M05.731 [place] [address] [address] Sep, Chronic pain G89.29 [facility] [address] [place] [id number] [place] [address] Sep, Type 2 diabetes mellitus with diabetic neuropathy, unspecified E11.40 ; Emphysema, unspecified J43.9 ; Gastro-esophageal reflux disease without esophagitis K21.9 ; Hypertension I10 ; Hyperlipemia E78.5 ; Anxiety associated with depression F41.8 ; Chronic pain G89.29 ; Vitamin D deficiency E55.9 and Primary insomnia F51.01 [place] [id number] [place] [address] 16 Aug, 2016 Anxiety associated with depression F41.8 [place] [address] [place] [id number] [place] [address] 13 Aug, 2016 Chronic pain G89.29 and Neuropathy G62.9 [place] [address] [place] [id number] [place] [address] Aug, Type 2 diabetes mellitus with diabetic neuropathy, unspecified E11.40 ; Rheumatoid arthritis involving multiple sites with positive rheumatoid factor M05.79 ; Vitamin D deficiency E55.9 ; Anxiety associated with depression F41.8 and Primary insomnia F51.01 [place] [address] [place] [id number] [place] [address] July, Emphysema, unspecified J43.9 [place] [address] [place] [id number] [place] [address] July, Allergic rhinitis J30.9 [place] [address] [place] [id number] [place] [id number] July, Allergic rhinitis J30.9 ; Emphysema, unspecified J43.9 and Rheumatoid arthritis with rheumatoid factor of right wrist without organ or systems involvement M05.731 [place] [address] [place] [id number] [place] [address] July, Neuropathy G62.9 and Chronic pain G89.29 [place] [address] [place] [id number] [place] [address] July, Rheumatoid arthritis involving multiple sites with positive rheumatoid factor M05.79 [place] [address] [place] [id number] [place] [address] Jun, [place] [address] [place] [id number] [place] [address] Jun, Neuropathy G62.9 and Chronic pain G89.29 [place] [address] [place] [id number] [place] [address] May, Neuropathy G62.9 and Chronic pain G89.29 [place] [address] [place] [id number] [place] [address] May, [place] [address] [address] May, [place] [address] [place] [id number] [place] [address] May, Type 2 diabetes mellitus with diabetic [...] system involvement with positive rheumatoid factor M05.732 [place] [address] [place] [id number] [place] [address] Apr, Chronic pain G89.29 [place] [address] [place] [id number] [place] [address] Mar, Gastro-esophageal reflux disease without esophagitis K21.9 [place] [address] [place] [id number] [place] [address] Mar, [place] [address] [place] [id number] [place] [address] Mar, Rheumatoid arthritis with rheumatoid factor of right wrist without organ or systems involvement M05.731 [place] [address] [place] [id number] [place] [address] Mar, Chronic pain G89.29 [place] [address] [place] [id number] [place] [address] 30 Feb, 2016 Hyperlipemia E78.5 [place] [address] [address] Feb, Abnormal breath sounds R06.89 ; COPD with exacerbation J44.1 and Fatigue, unspecified type R53.83 [place] [address] [address] Feb, Neuropathy G62.9 ; Abnormal lung sounds R09.89 and Bronchitis J40 [facility] [place] [address] [address] Feb, Bronchitis J40 [place] [address] [address] Feb, Chronic pain G89.29 [place] [address] [address] Jan, Type 2 diabetes mellitus with diabetic neuropathy, unspecified E11.40 ; Rheumatoid arthritis with rheumatoid factor of right wrist without organ or systems involvement M05.731 and Hyperlipemia E78.5 [place] [address] [address] Jan, Rheumatoid arthritis with rheumatoid factor of right wrist without organ or systems involvement M05.731 [place] [address] [address] Jan, De Quervain's disease (radial styloid tenosynovitis) M65.4 ; Closed nondisplaced fracture of scaphoid of left wrist, unspecified portion of scaphoid, initial encounter S62.002A and Peripheral tear of medial meniscus of left knee, unspecified whether old or current tear, initial encounter S83.222A [place] [address] [place] [id number] [place] [address] Jan, Hypertension I10 ; Type 2 diabetes mellitus with diabetic neuropathy, unspecified E11.40 ; Hyperlipemia E78.5 ; Allergic rhinitis J30.9 ; Neuropathy G62.9 ; Rheumatoid arthritis with rheumatoid factor of right wrist without organ or systems involvement M05.731 ; Acute non-recurrent maxillary sinusitis J01.00 and Chronic pain G89.29 [place] [address] [place] [id number] [place] [address] Dec, [place] [address] [address] Dec, [place] [address] [place] [id number] [place] [address] Dec, Type 2 diabetes mellitus with diabetic neuropathy, unspecified E11.40 ; Emphysema, unspecified J43.9 ; Gastro-esophageal reflux disease without esophagitis K21.9 ; Hypertension I10 ; Hyperlipemia E78.5 ; Rheumatoid arthritis with rheumatoid factor of right wrist without organ or systems involvement M05.731 ; Elevated white blood cell count, unspecified D72.829 ; Acute non- recurrent frontal sinusitis J01.10 and Chronic pain G89.29 [place] [address] [place] [id number] [place] [address] Nov, [place] [address] [place] [id number] [place] [address] Nov, Elevated white blood cell count, unspecified D72.829 ; Encounter for immunization Z23 ; Rheumatoid arthritis with rheumatoid factor of right wrist without organ or systems involvement M05.731 ; Injury of left hand S69.92XA ; Pain in left knee M25.562 and Other chronic pain G89.29 [place] [address] [place] [id number] [place] [address] Nov, [place] [address] [address] Nov, [place] [address] [place] [id number] [place] [address] Oct, [place] [address] [address] Oct, Hyperlipemia E78.5 [place] [address] [place] [id number] [place] [address] Oct, [place] [address] [place] [id number] [place] [address] Oct, Type 2 diabetes mellitus with diabetic neuropathy, unspecified E11.40 ; Neuropathy G62.9 ; Hypertension I10 ; Chronic pain G89.29 and Hyperlipemia E78.5 [place] [address] [place] [id number] [place] [address] Oct, Emphysema, unspecified J43.9 and Rheumatoid arthritis of left wrist without organ or system involvement with positive rheumatoid factor M05.732 [place] [address] [place] [id number] [place] [address] Sep, Chronic pain syndrome G89.4 [place] [address] [address] Sep, [place] [address] [place] [id number] [place] [address] Sep, [place] [address] [place] [id number] [place] [address] Sep, Closed nondisplaced fracture of scaphoid of left wrist, unspecified portion of scaphoid, initial encounter S62.002A [place] [address] [address] Sep, Type 2 diabetes mellitus with diabetic neuropathy, unspecified E11.40 ; Hypertension I10 ; Hyperlipemia E78.5 and Acute non-recurrent maxillary sinusitis J01.00 [place] [address] [place] [id number] [place] [address] Sep, [place] [address] [place] [id number] [place] [address] Sep, [place] [address] [address] Sep, [facility] [address] [place] [id number] [place] [address] Sep, [facility] [address] [place] [id number] [place] [address] Aug, Epigastric pain R10.13 and Right upper quadrant pain R10.11 [place] [address] [address] Aug, Closed nondisplaced fracture of scaphoid of left wrist, unspecified portion of scaphoid, initial encounter S62.002A [place] [address] [address] Aug, [facility] [address] [place] [id number] [place] [address] Aug, [facility] [address] [address] Aug, Shortness of breath R06.02 ; Epigastric pain R10.13 and Injury of left lower arm, initial encounter S59.912A [place] [address] [address] Aug, Coronary artery disease involving [place] heart with angina pectoris, unspecified vessel or lesion type I25.119 ; Pulmonary emphysema, unspecified emphysema type J43.9 and Snoring R06.83 [place] [address] [place] [id number] [place] [address] Aug, [facility] [address] [place] [id number] [place] [address] Aug, Emphysema, unspecified J43.9 ; Atherosclerotic heart disease of [place] coronary artery without angina pectoris I25.10 and Hypertension I10 [facility] [address] [id number] [place] [address] July, [place] [address] [address] July, Closed nondisplaced fracture of scaphoid of left wrist, unspecified portion of scaphoid, initial encounter S62.002A [place] [address] [place] [id number] [place] [address] July, [place] [address] [place] [id number] [place] [address] July, Type 2 diabetes mellitus with diabetic neuropathy, unspecified E11.40 ; Emphysema, unspecified J43.9 ; Atherosclerotic heart disease of [place] coronary artery without angina pectoris I25.10 ; [...] agents L24.89 and Hospital discharge follow-up Z09 [place] [id number] [place] [address] July, [place] [address] [place] [id number] [place] [address] July, Type 2 diabetes mellitus with diabetic neuropathy, unspecified E11.40 [place] [address] [place] [id number] [place] [address] July, Type 2 diabetes mellitus with diabetic neuropathy, unspecified E11.40 and Rheumatoid arthritis of left wrist without organ or system involvement with positive rheumatoid factor M05.732 [place] [id number] [place] [address] July, [place] [address] [place] [id number] [place] [address] July, [place] [address] [place] [id number] [place] [phone] Jun, [place] [address] [place] [id number] [place] [address] Jun, [place] [address] [address] Jun, 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 [place] [address] [address] Jun, [place] [address] [address] Jun, 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 [place] [id number] [place] [address] Jun, [place] [address] [address] Jun, [place] [id number] [place] [address] Jun, Encounter for PPD test Z11.1 ; Rheumatoid arthritis with rheumatoid factor of right wrist without organ or systems involvement M05.731 and Rheumatoid arthritis of left wrist without organ or system involvement with positive rheumatoid factor M05.732 [place] [address] [address] Jun, Type 2 diabetes mellitus with diabetic neuropathy, unspecified E11.40 [facility] [id number] [place] [phone] May, Type 2 diabetes mellitus with diabetic neuropathy, unspecified E11.40 ; Emphysema, unspecified J43.9 ; Rheumatoid arthritis with rheumatoid factor of right wrist without organ or systems involvement M05.731 ; Rheumatoid arthritis of left wrist without organ or system involvement with positive rheumatoid factor M05.732 and Chronic pain G89.29 [facility] [address], [place] [address] May, [place] [id number] [place] [phone] May, Swelling of hand joint M25.449 ; Ankle swelling M25.473 and Joint pain M25.50 [place] [id number] [place] [address] May, Emphysema, unspecified J43.9 [place] [id number] [place] [phone] May, Gastroenteritis K52.9 and Hypertension I10 [place] [id number] [place] [phone] Apr, [place] [address] [place] [id number] [place] [phone] Apr, [place] [address] [place] [id number] [place] [phone] Apr, [place] [address] [place] [id number] [place] [phone] Apr, Type 2 diabetes mellitus with diabetic neuropathy, unspecified E11.40 ; Emphysema, unspecified J43.9 ; Atherosclerotic heart disease of [place] coronary artery without angina pectoris I25.10 ; Migraine without aura, not intractable, with status migrainosus G43.001 ; Gastro-esophageal reflux disease without esophagitis K21.9 ; CAD (coronary artery disease) I25.10 ; Hypertension I10 ; Hyperlipemia E78.5 ; Allergic rhinitis J30.9 ; Neuropathy G62.9 ; Anxiety associated with depression F41.8 and Injury of left hand S69.92XA [place] [id number] [place] [phone] Apr, [place] [id number] [place] [phone] Apr, [place] [id number] [place] [phone] Apr, Type 2 diabetes mellitus with diabetic neuropathy, unspecified E11.40 ; Emphysema, unspecified J43.9 ; Essential (primary) hypertension I10 ; Atherosclerotic heart disease of [place] coronary artery without angina pectoris I25.10 ; Gastro-esophageal reflux disease without esophagitis K21.9 ; CAD (coronary artery disease) I25.10 ; Hyperlipemia E78.5 ; Hypertension I10 ; History of solitary pulmonary nodule Z87.898 ; Allergic rhinitis J30.9 ; Chronic pain G89.29 and Depression with anxiety F41.8 [place] [address] [address] Mar, [place] [address] [address] Mar, Allergic rhinitis J30.9 ; URI (upper respiratory infection) J06.9 and Other viral agents as the cause of diseases classified elsewhere B97.89 [facility] [address] [address] Feb, Acute nasopharyngitis [common cold] J00 and Acute diarrhea R19.[address] [address] 17 Feb, 2015 Depression F32.[address] [address] Jan, Otitis media, right H66.[address] [address] Jan, [address] [address] Jan, Type 2 diabetes mellitus with diabetic neuropathy, unspecified E11.[address] [address] Jan, [place] [address] [address] Jan, Hyperlipemia E78.[address] [address] Jan, Type 2 diabetes mellitus with diabetic neuropathy, unspecified E11.40 ; Emphysema, unspecified J43.9 ; CAD (coronary artery disease) I25.10 and Hyperlipemia E78.[address] [address] Dec, Allergic rhinitis J30.9 and Fungal infection B49 [place] [address] [place] [id number] [place] [phone] Dec, [place] [address] [address] Dec, [place] [address] [address] Dec, Chest pain R07.9 ; CAD (coronary artery disease) I25.10 ; Hypertension I10 and Hyperlipemia E78.[address] [address] Dec, Pain in thoracic spine M54.6 ; Gastro-esophageal reflux disease without esophagitis K21.9 ; Emphysema, unspecified J43.9 and Migraine without aura, not intractable, with status migrainosus G43.001 [place] [address] [address] Dec, [place] [address] [address] Nov, Influenza vaccine administered V04.[address] [address] Nov, [place] [address] [place] [id number] [place] [phone] Sep, [place] [address] [address] Sep, [place] [address] [place] [id number] [place] [phone] Sep, CAD (coronary artery disease) 414.00 and Diabetes type 2, uncontrolled 250.02 [place] [address] [place] [id number] [place] [phone] Sep, CAD (coronary artery disease) 414.00 ; Diabetes type 2, uncontrolled 250.02 and Migraine 346.90 IMMUNIZATIONS No Known Immunizations SOCIAL HISTORY Never Assessed REASON FOR VISIT [facility] PLAN OF CARE VITAL SIGNS MEDICATIONS Unknown Medications RESULTS No Results PROCEDURES No Known procedures INSTRUCTIONS MEDICATIONS ADMINISTERED No Known Medications MEDICAL (GENERAL) HISTORY Type Description Date Medical History COPD Medical History Type 2 Diabetes Medical History HTN Medical History Cardiac stents July 2010 post [place]-stent to LAD Medical History Rheumatoid Arthritis Medical History 04/2016---Echo- 60%//mild hypertrophy at the base of the septum, mild mitral regurg/ mild tricuspid regurg. PAP about 10-15 mmHg Medical History 04/2016------Normal Lexiscan Medical History Elevated white blood cell count, unspecified Medical History Atherosclerotic heart disease of [place] coronary artery without angina pectoris Medical History [...]
--- OUTSIDE RECORDS SUMMARY | 2018-08-23 17:04 | XMS REPORT ---
Author Author DELEONROB MoranELE [facility] Address [address] [place] [address] Care Team Providers Care Set Up And Lay Out Inspector Name Role Phone DELEONCLAU Moran Unavailable PROBLEMS Type Condition ICD9-CM Code DXX74-UR Code Onset Dates Condition Status SNOMED Code Problem Primary insomnia F51.01 Active 5005771 Problem Neuropathy G62.9 Active 077972371 Problem Periodontitis K05.30 Active 01921830 Problem Atherosclerotic heart disease of [place] coronary artery without angina pectoris I25.10 Active 024028291831067 Problem Vitamin D deficiency E55.9 Active 06539480 Problem Hammer toe of left foot M20.42 Active 799749416 Problem Other hammer toe(s) (acquired), left foot M20.42 Active 14985445 Problem Dependence on nocturnal oxygen therapy Z99.81 Active 69884748861126 Problem Tobacco abuse Z72.0 Active 536509270 Problem Other hammer toe(s) (acquired), right foot M20.41 Active 528232179 Problem Gastro-esophageal reflux disease without esophagitis K21.9 Active 868619218 Problem Emphysema, unspecified J43.9 Active 22291350 Problem Hypertension I10 Active 92616318 Problem Hyperlipemia E78.5 Active 62225064 Problem Anxiety associated with depression F41.8 Active 771876789 Problem Chronic pain G89.29 Active 80650989 Problem Type 2 diabetes mellitus with diabetic neuropathy, unspecified E11.40 Active 49088249 Problem OAB (overactive bladder) N32.81 Active 679747547 Problem Allergic rhinitis J30.9 Active 11970811 Problem Rheumatoid arthritis involving multiple sites with positive rheumatoid factor M05.79 Active 865913693 ALLERGIES No Information ENCOUNTERS Encounter Location Date Diagnosis [facility] [address] [facility] [id number] [address] Oct, [facility] [address] [facility] [id number] [place] [address] Sep, Rheumatoid arthritis involving multiple sites with positive rheumatoid factor M05.79 and Tobacco abuse Z72.[address] [address] Sep, Chronic pain G89.29 [place] [address] [address] Aug, Type 2 diabetes mellitus with diabetic neuropathy, unspecified E11.40 ; Hypertension I10 ; Hyperlipemia E78.5 ; Gastro-esophageal reflux disease without esophagitis K21.9 ; Emphysema, unspecified J43.9 ; Anxiety associated with depression F41.8 ; Vitamin D deficiency E55.9 ; Chronic pain G89.29 ; Tobacco abuse Z72.0 ; Overweight (BMI 25.0-29.9) E66.3 ; Atherosclerotic heart disease of [place] coronary artery without angina pectoris I25.10 ; OAB (overactive bladder) N32.81 and Primary insomnia F51.01 [place] [address] [address] July, [place] [address] [address] July, [place] [address] [address] July, Chronic pain G89.29 [place] [address] [place] [id number] [place] [address] July, [address] [address] July, Onychomycosis B35.1 ; Hammer toe of left foot M20.42 and Type 2 diabetes mellitus with diabetic neuropathy, unspecified E11.40 [place] [address] [place] [id number] [place] [address] July, [place] [address] [place] [id number] [place] [address] July, Chronic pain G89.29 and Neuropathy G62.9 [facility] [address] [place] [address] July, [facility] [address] [place] [id number] [place] [address] July, [facility] [address] [place] [id number] [place] [address] Jun, [facility] [address] [place] [id number] [place] [address] Jun, Chronic pain G89.29 [facility] [address] [place] [id number] [place] [address] Jun, [facility] [address] [place] [id number] [place] [address] Jun, [facility] [address] [place] [id number] [place] [address] Jun, Visit for TB skin test Z11.1 [facility] [address] [place] [id number] [place] [address] Jun, [facility] [address] [place] [id number] [place] [address] Jun, [facility] [address] [place] [id number] [place] [address] Jun, Tobacco abuse Z72.0 and Rheumatoid arthritis involving multiple sites with positive rheumatoid factor M05.79 [facility] [address] [place] [id number] [place] [address] Jun, Anxiety F41.9 ; Acute non-recurrent maxillary sinusitis J01.00 and Chronic pain G89.29 [facility] [address] [place] [id number] [place] [address] Jun, [facility] [address] [place] [id number] [place] [address] May, Rheumatoid arthritis involving multiple sites with positive rheumatoid factor M05.79 [place] [address], [place] [address] May, Chronic pain G89.29 [place] [address] [place] [id number] [place] [address] May, [place] [address] [place] [id number] [place] [address] May, [place] [address] [place] [id number] [place] [address] May, [place] [address] [place] [id number] [place] [address] May, Type 2 diabetes mellitus with diabetic neuropathy, unspecified E11.40 [place] [address] [place] [id number] [place] [address] May, Type 2 diabetes mellitus with diabetic neuropathy, unspecified E11.40 ; Emphysema, unspecified J43.9 ; Hypertension I10 ; Hyperlipemia E78.5 ; Vitamin D deficiency E55.9 ; Right medial knee pain M25.561 ; Controlled substance agreement signed Z79.899 ; Chronic pain G89.29 ; Allergic rhinitis J30.9 ; Anxiety associated with depression F41.8 ; Neuropathy G62.9 and Gastro- esophageal reflux disease without esophagitis K21.9 [place] [id number] [place] [address] 22 Apr, 2017 Chronic pain G89.29 [place] [address] [place] [id number] [place] [address] 16 Apr, 2017 Other hammer toe(s) (acquired), left foot M20.42 ; Other hammer toe(s) (acquired), right foot M20.41 ; Type 2 diabetes mellitus with diabetic neuropathy, unspecified E11.40 and Onychomycosis B35.1 [place] [address] [address] 2017 Gastro-esophageal reflux disease without esophagitis K21.9 [place] [address] [place] [address] [address] Apr, Controlled substance agreement signed Z79.899 [place] [address] [address] Mar, Chronic pain G89.29 [place] [address] [address] Mar, Emphysema, unspecified J43.9 and Type 2 diabetes mellitus with diabetic neuropathy, unspecified E11.40 [facility] [address] [address] Mar, Dysuria R30.0 ; Vaginal candidiasis B37.3 and Acute nonintractable headache, unspecified headache type R51 [place] [address] [address] Feb, Neuropathy G62.9 and Chronic pain G89.29 [place] [address] [address] Feb, Gastro-esophageal reflux disease without esophagitis K21.9 [place] [address] [address] Feb, [place] [address] [address] Feb, Rheumatoid arthritis involving multiple sites with positive rheumatoid factor M05.79 and COPD with acute exacerbation J44.1 [place] [address] [address] Feb, Vaginal odor N89.8 ; Vaginal irritation N89.8 ; Candidal dermatitis B37.2 and Screening breast examination Z12.31 [place] [address] [address] Feb, [place] [address] [address] Feb, [place] [address] [address] Feb, [place] [address] [address] Feb, COPD with exacerbation J44.1 ; Tobacco abuse counseling Z71.6 ; Tobacco abuse Z72.0 ; Rheumatoid arthritis involving multiple sites with positive rheumatoid factor M05.79 and Hyperlipemia E78.5 [place] [address] [address] Feb, [facility] [address] [id number] Jan, [place] [address] [address] Jan, Chronic pain G89.29 [facility] [address] [id number] Jan, Dental examination Z01.20 [facility] [address] [place] [address] Jan, Back pain of lumbar region with sciatica M54.40 [facility] [address] [place] [address] 15 Jan, 2017 Acute bacterial conjunctivitis of both eyes H10.[address] [address] 02 Jan, 2017 Chronic pain G89.29 [place] [address] [address] Dec, Type 2 diabetes mellitus with diabetic neuropathy, unspecified E11.40 ; Hypertension I10 ; Hyperlipemia E78.5 ; Gastro-esophageal reflux disease without esophagitis K21.9 ; Anxiety associated with depression F41.8 ; Allergic rhinitis J30.9 ; Neuropathy G62.9 and Dependence on nocturnal oxygen therapy Z99.81 [place] [address] [address] Dec, [place] [address] [address] Dec, [facility] [address] [place] [id number] [place] [address] 09 Dec, 2016 Encounter for immunization Z23 [facility] [address] [place] [id number] [place] [address] 05 Dec, 2016 Type 2 diabetes mellitus with diabetic neuropathy, unspecified E11.40 and Chronic pain G89.29 [place] [address] [address] 11 Nov, 2016 Gastro-esophageal reflux disease without esophagitis K21.9 [place] [address] [address] 11 Nov, 2016 Peripheral edema R60.9 and Chest pain in adult R07.9 [place] [address] [address] 07 Nov, 2016 Chronic pain G89.29 [place] [address] [place] [id number] [place] [address] 31 Oct, 2016 [place] [address] [place] [id number] [place] [address] 30 Oct, 2016 [place] [address] [place] [id number] [place] [address] 17 Oct, 2016 Rheumatoid arthritis with rheumatoid factor of right wrist without organ or systems involvement M05.731 [place] [address] [place] [id number] [place] [address] 15 Oct, 2016 [facility] [address] [place] [id number] [place] [address] 14 Oct, 2016 Acute exacerbation of chronic obstructive pulmonary disease (COPD) J44.1 and Canker sore K12.0 [facility] [address] [place] [id number] [place] [address] Oct, [facility] [address] [place] [id number] [place] [address] Oct, [place] [address] [place] [id number] [place] [address] Oct, Chronic pain G89.29 [facility] [address] [id number] Oct, Dental examination Z01.20 [facility] [address] [place] [id number] [place] [address] Oct, Dental examination Z01.20 and Periodontitis K05.30 [facility] [address] [place] [id number] [place] [id number] Oct, Dental examination Z01.20 [facility] [address] [address] Sep, Abscess L02.91 [facility] [address] [address] Sep, Dental examination Z01.20 [facility] [address] [place] [id number] [place] [address] Sep, [facility] [address] [place] [id number] [place] [id number] Sep, Dental examination Z01.20 and Dental caries K02.9 [facility] [address] [place] [id number] [place] [address] Sep, Primary insomnia F51.01 and Anxiety associated with depression F41.8 [place] [address] [place] [id number] [place] [address] Sep, Rheumatoid arthritis with rheumatoid factor of right wrist without organ or systems involvement M05.731 [place] [address] [address] Sep, Chronic pain G89.29 [facility] [address] [place] [id number] [place] [address] Sep, Type 2 diabetes mellitus with diabetic neuropathy, unspecified E11.40 ; Emphysema, unspecified J43.9 ; Gastro-esophageal reflux disease without esophagitis K21.9 ; Hypertension I10 ; Hyperlipemia E78.5 ; Anxiety associated with depression F41.8 ; Chronic pain G89.29 ; Vitamin D deficiency E55.9 and Primary insomnia F51.01 [place] [address] [place] [address] 16 Aug, 2016 Anxiety associated with depression F41.8 [place] [address] [place] [id number] [place] [address] 13 Aug, 2016 Chronic pain G89.29 and Neuropathy G62.9 [place] [address] [place] [id number] [place] [address] Aug, Type 2 diabetes mellitus with diabetic neuropathy, unspecified E11.40 ; Rheumatoid arthritis involving multiple sites with positive rheumatoid factor M05.79 ; Vitamin D deficiency E55.9 ; Anxiety associated with depression F41.8 and Primary insomnia F51.01 [place] [address] [place] [id number] [place] [address] July, Emphysema, unspecified J43.9 [place] [address] [place] [id number] [place] [address] July, Allergic rhinitis J30.9 [place] [address] [place] [id number] [place] [address] July, Allergic rhinitis J30.9 ; Emphysema, unspecified J43.9 and Rheumatoid arthritis with rheumatoid factor of right wrist without organ or systems involvement M05.731 [place] [address] [place] [id number] [place] [address] July, Neuropathy G62.9 and Chronic pain G89.29 [place] [address] [place] [id number] [place] [address] July, Rheumatoid arthritis involving multiple sites with positive rheumatoid factor M05.79 [place] [address] [place] [id number] [place] [address] Jun, [place] [address] [place] [id number] [place] [address] Jun, Neuropathy G62.9 and Chronic pain G89.29 [place] [address] [place] [id number] [place] [address] May, Neuropathy G62.9 and Chronic pain G89.29 [place] [address] [place] [id number] [place] [address] May, [place] [address] [address] May, [place] [address] [place] [id number] [place] [address] May, Type 2 diabetes mellitus with diabetic [...] system involvement with positive rheumatoid factor M05.732 [place] [address] [place] [id number] [place] [address] Apr, Chronic pain G89.29 [place] [address] [place] [id number] [place] [address] Mar, Gastro-esophageal reflux disease without esophagitis K21.9 [place] [address] [place] [id number] [place] [address] Mar, [place] [address] [place] [id number] [place] [address] Mar, Rheumatoid arthritis with rheumatoid factor of right wrist without organ or systems involvement M05.731 [place] [address] [place] [id number] [place] [address] Mar, Chronic pain G89.29 [place] [address] [place] [id number] [place] [address] 30 Feb, 2016 Hyperlipemia E78.5 [place] [address] [address] Feb, Abnormal breath sounds R06.89 ; COPD with exacerbation J44.1 and Fatigue, unspecified type R53.83 [place] [address] [address] Feb, Neuropathy G62.9 ; Abnormal lung sounds R09.89 and Bronchitis J40 [facility] [place] [address] [address] Feb, Bronchitis J40 [place] [address] [address] Feb, Chronic pain G89.29 [place] [address] [address] Jan, Type 2 diabetes mellitus with diabetic neuropathy, unspecified E11.40 ; Rheumatoid arthritis with rheumatoid factor of right wrist without organ or systems involvement M05.731 and Hyperlipemia E78.5 [place] [address] [address] Jan, Rheumatoid arthritis with rheumatoid factor of right wrist without organ or systems involvement M05.731 [place] [address] [address] Jan, De Quervain's disease (radial styloid tenosynovitis) M65.4 ; Closed nondisplaced fracture of scaphoid of left wrist, unspecified portion of scaphoid, initial encounter S62.002A and Peripheral tear of medial meniscus of left knee, unspecified whether old or current tear, initial encounter S83.222A [place] [address] [place] [id number] [place] [address] Jan, Hypertension I10 ; Type 2 diabetes mellitus with diabetic neuropathy, unspecified E11.40 ; Hyperlipemia E78.5 ; Allergic rhinitis J30.9 ; Neuropathy G62.9 ; Rheumatoid arthritis with rheumatoid factor of right wrist without organ or systems involvement M05.731 ; Acute non-recurrent maxillary sinusitis J01.00 and Chronic pain G89.29 [place] [address] [place] [id number] [place] [address] Dec, [place] [address] [address] Dec, [place] [address] [place] [id number] [place] [address] Dec, Type 2 diabetes mellitus with diabetic neuropathy, unspecified E11.40 ; Emphysema, unspecified J43.9 ; Gastro-esophageal reflux disease without esophagitis K21.9 ; Hypertension I10 ; Hyperlipemia E78.5 ; Rheumatoid arthritis with rheumatoid factor of right wrist without organ or systems involvement M05.731 ; Elevated white blood cell count, unspecified D72.829 ; Acute non- recurrent frontal sinusitis J01.10 and Chronic pain G89.29 [place] [address] [place] [id number] [place] [address] Nov, [place] [address] [place] [id number] [place] [address] Nov, Elevated white blood cell count, unspecified D72.829 ; Encounter for immunization Z23 ; Rheumatoid arthritis with rheumatoid factor of right wrist without organ or systems involvement M05.731 ; Injury of left hand S69.92XA ; Pain in left knee M25.562 and Other chronic pain G89.29 [place] [address] [place] [id number] [place] [address] Nov, [place] [address] [address] Nov, [place] [address] [place] [id number] [place] [address] Oct, [place] [address] [address] Oct, Hyperlipemia E78.5 [place] [address] [place] [id number] [place] [address] Oct, [place] [address] [place] [id number] [place] [address] Oct, Type 2 diabetes mellitus with diabetic neuropathy, unspecified E11.40 ; Neuropathy G62.9 ; Hypertension I10 ; Chronic pain G89.29 and Hyperlipemia E78.5 [place] [address] [place] [id number] [place] [address] Oct, Emphysema, unspecified J43.9 and Rheumatoid arthritis of left wrist without organ or system involvement with positive rheumatoid factor M05.732 [place] [address] [place] [id number] [place] [address] Sep, Chronic pain syndrome G89.4 [place] [address] [address] Sep, [place] [address] [place] [id number] [place] [address] Sep, [place] [address] [place] [id number] [place] [address] Sep, Closed nondisplaced fracture of scaphoid of left wrist, unspecified portion of scaphoid, initial encounter S62.002A [place] [address] [address] Sep, Type 2 diabetes mellitus with diabetic neuropathy, unspecified E11.40 ; Hypertension I10 ; Hyperlipemia E78.5 and Acute non-recurrent maxillary sinusitis J01.00 [place] [address] [place] [id number] [place] [address] Sep, [place] [address] [place] [id number] [place] [address] Sep, [place] [address] [address] Sep, [facility] [address] [place] [id number] [place] [address] Sep, [facility] [address] [place] [id number] [place] [address] Aug, Epigastric pain R10.13 and Right upper quadrant pain R10.11 [place] [address] [address] Aug, Closed nondisplaced fracture of scaphoid of left wrist, unspecified portion of scaphoid, initial encounter S62.002A [place] [address] [address] Aug, [facility] [address] [place] [id number] [place] [address] Aug, [facility] [address] [address] Aug, Shortness of breath R06.02 ; Epigastric pain R10.13 and Injury of left lower arm, initial encounter S59.912A [place] [address] [address] Aug, Coronary artery disease involving [place] heart with angina pectoris, unspecified vessel or lesion type I25.119 ; Pulmonary emphysema, unspecified emphysema type J43.9 and Snoring R06.83 [place] [address] [place] [id number] [place] [address] Aug, [facility] [address] [place] [id number] [place] [address] Aug, Emphysema, unspecified J43.9 ; Atherosclerotic heart disease of [place] coronary artery without angina pectoris I25.10 and Hypertension I10 [facility] [address] [place] [id number] [place] [address] July, [place] [address] [address] July, Closed nondisplaced fracture of scaphoid of left wrist, unspecified portion of scaphoid, initial encounter S62.002A [place] [address] [place] [id number] [place] [address] July, [place] [address] [place] [id number] [place] [address] July, Type 2 diabetes mellitus with diabetic neuropathy, unspecified E11.40 ; Emphysema, unspecified J43.9 ; Atherosclerotic heart disease of [place] coronary artery without angina pectoris I25.10 ; [...] agents L24.89 and Hospital discharge follow-up Z09 [place] [address] [place] [address] July, [place] [address] [place] [id number] [place] [address] July, Type 2 diabetes mellitus with diabetic neuropathy, unspecified E11.40 [place] [address] [place] [id number] [place] [address] July, Type 2 diabetes mellitus with diabetic neuropathy, unspecified E11.40 and Rheumatoid arthritis of left wrist without organ or system involvement with positive rheumatoid factor M05.732 [place] [address] [place] [address] July, [place] [address] [place] [id number] [place] [address] July, [place] [address] [place] [id number] [place] [address] Jun, [place] [address] [place] [id number] [place] [address] Jun, [place] [address], [place] [address] Jun, 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 [place] [address] [address] Jun, [place] [address], [place] [address] Jun, 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 [place] [id number] [place] [id number] Jun, [place] [id number] [place] [address] Jun, [place] [id number] [place] [id number] Jun, Encounter for PPD test Z11.1 ; Rheumatoid arthritis with rheumatoid factor of right wrist without organ or systems involvement M05.731 and Rheumatoid arthritis of left wrist without organ or system involvement with positive rheumatoid factor M05.732 [place] [id number], [place] [address] Jun, Type 2 diabetes mellitus with diabetic neuropathy, unspecified E11.40 [place] [id number] [place] [address] May, Type 2 diabetes mellitus with diabetic neuropathy, unspecified E11.40 ; Emphysema, unspecified J43.9 ; Rheumatoid arthritis with rheumatoid factor of right wrist without organ or systems involvement M05.731 ; Rheumatoid arthritis of left wrist without organ or system involvement with positive rheumatoid factor M05.732 and Chronic pain G89.29 [place] [address], [place] [address] May, [place] [id number] [place] [address] May, Swelling of hand joint M25.449 ; Ankle swelling M25.473 and Joint pain M25.50 [place] [id number] [place] [address] May, Emphysema, unspecified J43.9 [place] [id number] [place] [address] May, Gastroenteritis K52.9 and Hypertension I10 [place] [id number] [place] [address] Apr, [place] [address] [place] [id number] [place] [address] Apr, [place] [address] [place] [id number] [place] [address] Apr, [place] [address] [place] [id number] [place] [address] Apr, Type 2 diabetes mellitus with diabetic neuropathy, unspecified E11.40 ; Emphysema, unspecified J43.9 ; Atherosclerotic heart disease of [place] coronary artery without angina pectoris I25.10 ; Migraine without aura, not intractable, with status migrainosus G43.001 ; Gastro-esophageal reflux disease without esophagitis K21.9 ; CAD (coronary artery disease) I25.10 ; Hypertension I10 ; Hyperlipemia E78.5 ; Allergic rhinitis J30.9 ; Neuropathy G62.9 ; Anxiety associated with depression F41.8 and Injury of left hand S69.92XA [place] [id number] [place] [address] Apr, [place] [id number] [place] [address] Apr, [place] [id number] [place] [address] Apr, Type 2 diabetes mellitus with diabetic neuropathy, unspecified E11.40 ; Emphysema, unspecified J43.9 ; Essential (primary) hypertension I10 ; Atherosclerotic heart disease of [place] coronary artery without angina pectoris I25.10 ; Gastro-esophageal reflux disease without esophagitis K21.9 ; CAD (coronary artery disease) I25.10 ; Hyperlipemia E78.5 ; Hypertension I10 ; History of solitary pulmonary nodule Z87.898 ; Allergic rhinitis J30.9 ; Chronic pain G89.29 and Depression with anxiety F41.8 [place] [address] [address] Mar, [place] [address] [address] Mar, Allergic rhinitis J30.9 ; URI (upper respiratory infection) J06.9 and Other viral agents as the cause of diseases classified elsewhere B97.89 [facility] [address] [address] Feb, Acute nasopharyngitis [common cold] J00 and Acute diarrhea R19.[address] [address] 17 Feb, 2015 Depression F32.[address] [address] Jan, Otitis media, right H66.[address] [address] Jan, [address] [address] Jan, Type 2 diabetes mellitus with diabetic neuropathy, unspecified E11.[address] [address] Jan, [place] [address] [address] Jan, Hyperlipemia E78.[address] [address] Jan, Type 2 diabetes mellitus with diabetic neuropathy, unspecified E11.40 ; Emphysema, unspecified J43.9 ; CAD (coronary artery disease) I25.10 and Hyperlipemia E78.[address] [address] Dec, Allergic rhinitis J30.9 and Fungal infection B49 [place] [address] [place] [id number] [place] [address] Dec, [place] [address] [address] Dec, [place] [address] [address] Dec, Chest pain R07.9 ; CAD (coronary artery disease) I25.10 ; Hypertension I10 and Hyperlipemia E78.[address] [address] Dec, Pain in thoracic spine M54.6 ; Gastro-esophageal reflux disease without esophagitis K21.9 ; Emphysema, unspecified J43.9 and Migraine without aura, not intractable, with status migrainosus G43.001 [place] [address] [address] Dec, [place] [address] [address] Nov, Influenza vaccine administered V04.[address] [address] Nov, [place] [address] [place] [id number] [place] [address] Sep, [place] [address] [address] Sep, [place] [address] [place] [id number] [place] [address] Sep, CAD (coronary artery disease) 414.00 and Diabetes type 2, uncontrolled 250.02 [place] [address] [place] [id number] [place] [address] Sep, CAD (coronary artery disease) 414.00 ; [...] Medical History Cardiac stents July [address]-stent to LAD Medical History Rheumatoid Arthritis Medical History 04/2016---Echo- 60%//mild hypertrophy at the base of the septum, mild mitral regurg/ mild tricuspid regurg. PAP about 10-15 mmHg Medical History 04/2016------Normal Lexiscan Medical History Elevated white blood cell count, unspecified Medical History Atherosclerotic heart disease of [place] coronary artery without angina pectoris Medical History [...]
--- NOTE | 2018-08-23 17:05 | NUR ---
MED REC COMPLETED IN [facility]. PHARMACIST CALLED FOR CLARIFICATION ON PAIN MEDICATIONS AND HYDROXYZINE FREQUENCY. I HAD A LIST FAXED OVER FROM [facility] AND COMPARED IT TO THE LIST ON THE CHART FROM THE OFFICE. I DISCUSSED THE DISCREPANCIES WITH THE PATIENT VERBALLY AND UPDATED THE CHANGES. SENT CORRECTED MED REC TO PHARMACY TO CLARIFY ORDERS. [facility] FILLED: 08-09-18 HYDROCODONE 7.5-325MG Q6H PRN #112 08-04-18 HYDROXYZINE PAMOATE 50MG TID PRN #90 08-04-18 PAROXETINE 20MG DAILY #30 07-26-18 ATORVASTATIN 10MG DAILY #30 07-26-18 PANTOPRAZOLE 40MG DAILY #30 07-26-18 SUCRALFATE 1GM Q6H #120 (STATES SHE TAKES BID) 07-26-18 ASPIRIN 81MG DAILY #30 07-26-18 BACLOFEN 10MG TID #90 07-26-18 LISINOPRIL 5MG DAILY #30 07-26-18 CETIRIZINE 10MG DAILY #30 07-26-18 TRAZODONE 50MG HS PRN #30 07-26-18 LYRICA 150MG TID #90 07-26-18 QNASL 80MCG 2 SPRAYS NS DAILY 07-26-18 METFORMIN 1000MG BID #60 07-26-18 PROVENTIL HFA 2 PUFFS Q6H PRN 07-11-18 BUTALBITAL/APAP/CAFFEINE 50-325-40 QID PRN #60 05-24-18 VICTOZA 1.8MG SUB DAILY (STATES SHE TAKES AT NOON, PAST DUE FOR REFILL) 10-23-17 SYMBICORT 160 (PATIENT STATES SHE DOES USE IT DAILY AND DOES NOT GET SAMPLES) SHE REPORTS SHE HAS ALBUTEROL NEBULIZER TREATMENTS THAT SHE RECEIVES 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 SHE TAKES FISH OIL DAILY AND MUCINEX BID PRN OTC.
--- OUTSIDE RECORDS SUMMARY | 2018-08-23 17:05 | XMS REPORT ---
Author Author DELEONROB MoranELE [facility] Address [address] [place] [address] Care Team Providers Care Gamma Operator Name Role Phone DELEONCLAU Moran Unavailable PROBLEMS Type Condition ICD9-CM Code DTZ00-ZS Code Onset Dates Condition Status SNOMED Code Problem Primary insomnia F51.01 Active 0144780 Problem Neuropathy G62.9 Active 587880933 Problem Periodontitis K05.30 Active 46596527 Problem Atherosclerotic heart disease of [place] coronary artery without angina pectoris I25.10 Active 713114636188464 Problem Vitamin D deficiency E55.9 Active 15061103 Problem Hammer toe of left foot M20.42 Active 672731088 Problem Other hammer toe(s) (acquired), left foot M20.42 Active 74166145 Problem Dependence on nocturnal oxygen therapy Z99.81 Active 95579383249404 Problem Tobacco abuse Z72.0 Active 523038194 Problem Other hammer toe(s) (acquired), right foot M20.41 Active 057665368 Problem Gastro-esophageal reflux disease without esophagitis K21.9 Active 512527757 Problem Emphysema, unspecified J43.9 Active 48229082 Problem Hypertension I10 Active 28973500 Problem Hyperlipemia E78.5 Active 02785155 Problem Anxiety associated with depression F41.8 Active 865523174 Problem Chronic pain G89.29 Active 89566749 Problem Type 2 diabetes mellitus with diabetic neuropathy, unspecified E11.40 Active 95222468 Problem OAB (overactive bladder) N32.81 Active 186599045 Problem Allergic rhinitis J30.9 Active 89094633 Problem Rheumatoid arthritis involving multiple sites with positive rheumatoid factor M05.79 Active 817853263 ALLERGIES No Information ENCOUNTERS Encounter Location Date Diagnosis [facility] [address] [facility] [id number] [address] Oct, [facility] [address] [facility] [id number] [place] [address] Sep, Rheumatoid arthritis involving multiple sites with positive rheumatoid factor M05.79 and Tobacco abuse Z72.[address] [address] Sep, Chronic pain G89.29 [place] [address] [address] Aug, Type 2 diabetes mellitus with diabetic neuropathy, unspecified E11.40 ; Hypertension I10 ; Hyperlipemia E78.5 ; Gastro-esophageal reflux disease without esophagitis K21.9 ; Emphysema, unspecified J43.9 ; Anxiety associated with depression F41.8 ; Vitamin D deficiency E55.9 ; Chronic pain G89.29 ; Tobacco abuse Z72.0 ; Overweight (BMI 25.0-29.9) E66.3 ; Atherosclerotic heart disease of [place] coronary artery without angina pectoris I25.10 ; OAB (overactive bladder) N32.81 and Primary insomnia F51.01 [place] [address] [address] July, [place] [address] [address] July, [place] [address] [address] July, Chronic pain G89.29 [place] [address] [place] [id number] [place] [address] July, [address] [address] July, Onychomycosis B35.1 ; Hammer toe of left foot M20.42 and Type 2 diabetes mellitus with diabetic neuropathy, unspecified E11.40 [place] [address] [place] [id number] [place] [address] July, [place] [address] [place] [id number] [place] [address] July, Chronic pain G89.29 and Neuropathy G62.9 [facility] [address] [place] [address] July, [facility] [address] [place] [id number] [place] [address] July, [facility] [address] [place] [id number] [place] [address] Jun, [facility] [address] [place] [id number] [place] [address] Jun, Chronic pain G89.29 [facility] [address] [place] [id number] [place] [address] Jun, [facility] [address] [place] [id number] [place] [address] Jun, [facility] [address] [place] [id number] [place] [address] Jun, Visit for TB skin test Z11.1 [facility] [address] [place] [id number] [place] [address] Jun, [facility] [address] [place] [id number] [place] [address] Jun, [facility] [address] [place] [id number] [place] [address] Jun, Tobacco abuse Z72.0 and Rheumatoid arthritis involving multiple sites with positive rheumatoid factor M05.79 [facility] [address] [place] [id number] [place] [address] Jun, Anxiety F41.9 ; Acute non-recurrent maxillary sinusitis J01.00 and Chronic pain G89.29 [facility] [address] [place] [id number] [place] [address] Jun, [facility] [address] [place] [id number] [place] [address] May, Rheumatoid arthritis involving multiple sites with positive rheumatoid factor M05.79 [place] [address] [address] May, Chronic pain G89.29 [place] [address] [place] [id number] [place] [address] May, [place] [address] [place] [id number] [place] [address] May, [place] [address] [place] [id number] [place] [address] May, [place] [address] [place] [id number] [place] [address] May, Type 2 diabetes mellitus with diabetic neuropathy, unspecified E11.40 [place] [address] [place] [id number] [place] [address] May, Type 2 diabetes mellitus with diabetic neuropathy, unspecified E11.40 ; Emphysema, unspecified J43.9 ; Hypertension I10 ; Hyperlipemia E78.5 ; Vitamin D deficiency E55.9 ; Right medial knee pain M25.561 ; Controlled substance agreement signed Z79.899 ; Chronic pain G89.29 ; Allergic rhinitis J30.9 ; Anxiety associated with depression F41.8 ; Neuropathy G62.9 and Gastro- esophageal reflux disease without esophagitis K21.9 [place] [address] [place] [address] 22 Apr, 2017 Chronic pain G89.29 [place] [address] [place] [id number] [place] [address] 16 Apr, 2017 Other hammer toe(s) (acquired), left foot M20.42 ; Other hammer toe(s) (acquired), right foot M20.41 ; Type 2 diabetes mellitus with diabetic neuropathy, unspecified E11.40 and Onychomycosis B35.1 [place] [address] [address] 2017 Gastro-esophageal reflux disease without esophagitis K21.9 [place] [address] [place] [address] [address] Apr, Controlled substance agreement signed Z79.899 [place] [address] [address] Mar, Chronic pain G89.29 [place] [address] [address] Mar, Emphysema, unspecified J43.9 and Type 2 diabetes mellitus with diabetic neuropathy, unspecified E11.40 [facility] [address] [address] Mar, Dysuria R30.0 ; Vaginal candidiasis B37.3 and Acute nonintractable headache, unspecified headache type R51 [place] [address] [address] Feb, Neuropathy G62.9 and Chronic pain G89.29 [place] [address] [address] Feb, Gastro-esophageal reflux disease without esophagitis K21.9 [place] [address] [address] Feb, [place] [address] [address] Feb, Rheumatoid arthritis involving multiple sites with positive rheumatoid factor M05.79 and COPD with acute exacerbation J44.1 [place] [address] [address] Feb, Vaginal odor N89.8 ; Vaginal irritation N89.8 ; Candidal dermatitis B37.2 and Screening breast examination Z12.31 [place] [address] [address] Feb, [place] [address] [address] Feb, [place] [address] [address] Feb, [place] [address] [address] Feb, COPD with exacerbation J44.1 ; Tobacco abuse counseling Z71.6 ; Tobacco abuse Z72.0 ; Rheumatoid arthritis involving multiple sites with positive rheumatoid factor M05.79 and Hyperlipemia E78.5 [place] [address] [address] Feb, [facility] [address] [id number] Jan, [place] [address] [address] Jan, Chronic pain G89.29 [facility] [address] [id number] Jan, Dental examination Z01.20 [facility] [address] [place] [address] Jan, Back pain of lumbar region with sciatica M54.40 [facility] [address] [place] [address] 15 Jan, 2017 Acute bacterial conjunctivitis of both eyes H10.[address] [address] 02 Jan, 2017 Chronic pain G89.29 [place] [address] [address] Dec, Type 2 diabetes mellitus with diabetic neuropathy, unspecified E11.40 ; Hypertension I10 ; Hyperlipemia E78.5 ; Gastro-esophageal reflux disease without esophagitis K21.9 ; Anxiety associated with depression F41.8 ; Allergic rhinitis J30.9 ; Neuropathy G62.9 and Dependence on nocturnal oxygen therapy Z99.81 [place] [address] [address] Dec, [place] [address] [address] Dec, [facility] [address] [place] [id number] [place] [address] 09 Dec, 2016 Encounter for immunization Z23 [facility] [address] [place] [id number] [place] [address] 05 Dec, 2016 Type 2 diabetes mellitus with diabetic neuropathy, unspecified E11.40 and Chronic pain G89.29 [place] [address] [address] 11 Nov, 2016 Gastro-esophageal reflux disease without esophagitis K21.9 [place] [address] [address] 11 Nov, 2016 Peripheral edema R60.9 and Chest pain in adult R07.9 [place] [address] [address] 07 Nov, 2016 Chronic pain G89.29 [place] [address] [place] [id number] [place] [address] 31 Oct, 2016 [place] [address] [place] [id number] [place] [address] 30 Oct, 2016 [place] [address] [place] [id number] [place] [address] 17 Oct, 2016 Rheumatoid arthritis with rheumatoid factor of right wrist without organ or systems involvement M05.731 [place] [address] [place] [id number] [place] [address] 15 Oct, 2016 [facility] [address] [place] [id number] [place] [address] 14 Oct, 2016 Acute exacerbation of chronic obstructive pulmonary disease (COPD) J44.1 and Canker sore K12.0 [facility] [address] [place] [id number] [place] [address] Oct, [facility] [address] [place] [id number] [place] [address] Oct, [place] [address] [place] [id number] [place] [address] Oct, Chronic pain G89.29 [facility] [address] [id number] Oct, Dental examination Z01.20 [facility] [address] [place] [id number] [place] [address] Oct, Dental examination Z01.20 and Periodontitis K05.30 [facility] [address] [place] [id number] [place] [id number] Oct, Dental examination Z01.20 [facility] [address] [address] Sep, Abscess L02.91 [facility] [address] [address] Sep, Dental examination Z01.20 [facility] [address] [place] [id number] [place] [address] Sep, [facility] [address] [place] [id number] [place] [id number] Sep, Dental examination Z01.20 and Dental caries K02.9 [facility] [address] [place] [id number] [place] [address] Sep, Primary insomnia F51.01 and Anxiety associated with depression F41.8 [place] [address] [place] [id number] [place] [address] Sep, Rheumatoid arthritis with rheumatoid factor of right wrist without organ or systems involvement M05.731 [place] [address] [address] Sep, Chronic pain G89.29 [facility] [address] [place] [id number] [place] [address] Sep, Type 2 diabetes mellitus with diabetic neuropathy, unspecified E11.40 ; Emphysema, unspecified J43.9 ; Gastro-esophageal reflux disease without esophagitis K21.9 ; Hypertension I10 ; Hyperlipemia E78.5 ; Anxiety associated with depression F41.8 ; Chronic pain G89.29 ; Vitamin D deficiency E55.9 and Primary insomnia F51.01 [place] [address] [place] [address] 16 Aug, 2016 Anxiety associated with depression F41.8 [place] [address] [place] [id number] [place] [address] 13 Aug, 2016 Chronic pain G89.29 and Neuropathy G62.9 [place] [address] [place] [id number] [place] [address] Aug, Type 2 diabetes mellitus with diabetic neuropathy, unspecified E11.40 ; Rheumatoid arthritis involving multiple sites with positive rheumatoid factor M05.79 ; Vitamin D deficiency E55.9 ; Anxiety associated with depression F41.8 and Primary insomnia F51.01 [place] [address] [place] [id number] [place] [address] July, Emphysema, unspecified J43.9 [place] [address] [place] [id number] [place] [address] July, Allergic rhinitis J30.9 [place] [address] [place] [id number] [place] [address] July, Allergic rhinitis J30.9 ; Emphysema, unspecified J43.9 and Rheumatoid arthritis with rheumatoid factor of right wrist without organ or systems involvement M05.731 [place] [address] [place] [id number] [place] [address] July, Neuropathy G62.9 and Chronic pain G89.29 [place] [address] [place] [id number] [place] [address] July, Rheumatoid arthritis involving multiple sites with positive rheumatoid factor M05.79 [place] [address] [place] [id number] [place] [address] Jun, [place] [address] [place] [id number] [place] [address] Jun, Neuropathy G62.9 and Chronic pain G89.29 [place] [address] [place] [id number] [place] [address] May, Neuropathy G62.9 and Chronic pain G89.29 [place] [address] [place] [id number] [place] [address] May, [place] [address] [address] May, [place] [address] [place] [id number] [place] [address] May, Type 2 diabetes mellitus with diabetic [...] system involvement with positive rheumatoid factor M05.732 [place] [address] [place] [id number] [place] [address] Apr, Chronic pain G89.29 [place] [address] [place] [id number] [place] [address] Mar, Gastro-esophageal reflux disease without esophagitis K21.9 [place] [address] [place] [id number] [place] [address] Mar, [place] [address] [place] [id number] [place] [address] Mar, Rheumatoid arthritis with rheumatoid factor of right wrist without organ or systems involvement M05.731 [place] [address] [place] [id number] [place] [address] Mar, Chronic pain G89.29 [place] [address] [place] [id number] [place] [address] 30 Feb, 2016 Hyperlipemia E78.5 [place] [address] [address] Feb, Abnormal breath sounds R06.89 ; COPD with exacerbation J44.1 and Fatigue, unspecified type R53.83 [place] [address] [address] Feb, Neuropathy G62.9 ; Abnormal lung sounds R09.89 and Bronchitis J40 [facility] [place] [address] [address] Feb, Bronchitis J40 [place] [address] [address] Feb, Chronic pain G89.29 [place] [address] [address] Jan, Type 2 diabetes mellitus with diabetic neuropathy, unspecified E11.40 ; Rheumatoid arthritis with rheumatoid factor of right wrist without organ or systems involvement M05.731 and Hyperlipemia E78.5 [place] [address] [address] Jan, Rheumatoid arthritis with rheumatoid factor of right wrist without organ or systems involvement M05.731 [place] [address] [address] Jan, De Quervain's disease (radial styloid tenosynovitis) M65.4 ; Closed nondisplaced fracture of scaphoid of left wrist, unspecified portion of scaphoid, initial encounter S62.002A and Peripheral tear of medial meniscus of left knee, unspecified whether old or current tear, initial encounter S83.222A [place] [address] [place] [id number] [place] [address] Jan, Hypertension I10 ; Type 2 diabetes mellitus with diabetic neuropathy, unspecified E11.40 ; Hyperlipemia E78.5 ; Allergic rhinitis J30.9 ; Neuropathy G62.9 ; Rheumatoid arthritis with rheumatoid factor of right wrist without organ or systems involvement M05.731 ; Acute non-recurrent maxillary sinusitis J01.00 and Chronic pain G89.29 [place] [address] [place] [id number] [place] [address] Dec, [place] [address] [address] Dec, [place] [address] [place] [id number] [place] [address] Dec, Type 2 diabetes mellitus with diabetic neuropathy, unspecified E11.40 ; Emphysema, unspecified J43.9 ; Gastro-esophageal reflux disease without esophagitis K21.9 ; Hypertension I10 ; Hyperlipemia E78.5 ; Rheumatoid arthritis with rheumatoid factor of right wrist without organ or systems involvement M05.731 ; Elevated white blood cell count, unspecified D72.829 ; Acute non- recurrent frontal sinusitis J01.10 and Chronic pain G89.29 [place] [address] [place] [id number] [place] [address] Nov, [place] [address] [place] [id number] [place] [address] Nov, Elevated white blood cell count, unspecified D72.829 ; Encounter for immunization Z23 ; Rheumatoid arthritis with rheumatoid factor of right wrist without organ or systems involvement M05.731 ; Injury of left hand S69.92XA ; Pain in left knee M25.562 and Other chronic pain G89.29 [place] [address] [place] [id number] [place] [address] Nov, [place] [address] [address] Nov, [place] [address] [place] [id number] [place] [address] Oct, [place] [address] [address] Oct, Hyperlipemia E78.5 [place] [address] [place] [id number] [place] [address] Oct, [place] [address] [place] [id number] [place] [address] Oct, Type 2 diabetes mellitus with diabetic neuropathy, unspecified E11.40 ; Neuropathy G62.9 ; Hypertension I10 ; Chronic pain G89.29 and Hyperlipemia E78.5 [place] [address] [place] [id number] [place] [address] Oct, Emphysema, unspecified J43.9 and Rheumatoid arthritis of left wrist without organ or system involvement with positive rheumatoid factor M05.732 [place] [address] [place] [id number] [place] [address] Sep, Chronic pain syndrome G89.4 [place] [address] [address] Sep, [place] [address] [place] [id number] [place] [address] Sep, [place] [address] [place] [id number] [place] [address] Sep, Closed nondisplaced fracture of scaphoid of left wrist, unspecified portion of scaphoid, initial encounter S62.002A [place] [address] [address] Sep, Type 2 diabetes mellitus with diabetic neuropathy, unspecified E11.40 ; Hypertension I10 ; Hyperlipemia E78.5 and Acute non-recurrent maxillary sinusitis J01.00 [place] [address] [place] [id number] [place] [address] Sep, [place] [address] [place] [id number] [place] [address] Sep, [place] [address] [address] Sep, [facility] [address] [place] [id number] [place] [address] Sep, [facility] [address] [place] [id number] [place] [address] Aug, Epigastric pain R10.13 and Right upper quadrant pain R10.11 [place] [address] [address] Aug, Closed nondisplaced fracture of scaphoid of left wrist, unspecified portion of scaphoid, initial encounter S62.002A [place] [address] [address] Aug, [facility] [address] [place] [id number] [place] [address] Aug, [facility] [address] [address] Aug, Shortness of breath R06.02 ; Epigastric pain R10.13 and Injury of left lower arm, initial encounter S59.912A [place] [address] [address] Aug, Coronary artery disease involving paimiut heart with angina pectoris, unspecified vessel or lesion type I25.119 ; Pulmonary emphysema, unspecified emphysema type J43.9 and Snoring R06.83 [place] [address] [place] [id number] [place] [address] Aug, [facility] [address] [place] [id number] [place] [address] Aug, Emphysema, unspecified J43.9 ; Atherosclerotic heart disease of [place] coronary artery without angina pectoris I25.10 and Hypertension I10 [facility] [address] [place] [id number] [place] [address] July, [place] [address] [address] July, Closed nondisplaced fracture of scaphoid of left wrist, unspecified portion of scaphoid, initial encounter S62.002A [place] [address] [place] [id number] [place] [address] July, [place] [address] [place] [id number] [place] [address] July, Type 2 diabetes mellitus with diabetic neuropathy, unspecified E11.40 ; Emphysema, unspecified J43.9 ; Atherosclerotic heart disease of [place] coronary artery without angina pectoris I25.10 ; [...] agents L24.89 and Hospital discharge follow-up Z09 [place] [address] [place] [address] July, [place] [address] [place] [id number] [place] [address] July, Type 2 diabetes mellitus with diabetic neuropathy, unspecified E11.40 [place] [address] [place] [id number] [place] [address] July, Type 2 diabetes mellitus with diabetic neuropathy, unspecified E11.40 and Rheumatoid arthritis of left wrist without organ or system involvement with positive rheumatoid factor M05.732 [place] [address] [place] [address] July, [place] [address] [place] [id number] [place] [address] July, [place] [address] [place] [id number] [place] [id number] Jun, [place] [address] [place] [id number] [place] [phone] Jun, [place] [id number], [place] [address] Jun, 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 [place] [id number] [address] Jun, [place] [id number] [place] [address] Jun, 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 [place] [id number] [place] [id number] Jun, [place] [id number] [place] [address] Jun, [place] [id number] [place] [phone] Jun, Encounter for PPD test Z11.1 ; Rheumatoid arthritis with rheumatoid factor of right wrist without organ or systems involvement M05.731 and Rheumatoid arthritis of left wrist without organ or system involvement with positive rheumatoid factor M05.732 [place] [id number], [place] [address] Jun, Type 2 diabetes mellitus with diabetic neuropathy, unspecified E11.40 [place] [id number] [place] [id number] May, Type 2 diabetes mellitus with diabetic neuropathy, unspecified E11.40 ; Emphysema, unspecified J43.9 ; Rheumatoid arthritis with rheumatoid factor of right wrist without organ or systems involvement M05.731 ; Rheumatoid arthritis of left wrist without organ or system involvement with positive rheumatoid factor M05.732 and Chronic pain G89.29 [place] [id number] [address] May, [place] [id number] [place] [address] May, Swelling of hand joint M25.449 ; Ankle swelling M25.473 and Joint pain M25.50 [place] [id number] [place] [address] May, Emphysema, unspecified J43.9 [place] [id number] [place] [address] May, Gastroenteritis K52.9 and Hypertension I10 [place] [id number] [place] [address] Apr, [place] [address] [place] [id number] [place] [address] Apr, [place] [address] [place] [id number] [place] [address] Apr, [place] [address] [place] [id number] [place] [address] Apr, Type 2 diabetes mellitus with diabetic neuropathy, unspecified E11.40 ; Emphysema, unspecified J43.9 ; Atherosclerotic heart disease of [place] coronary artery without angina pectoris I25.10 ; Migraine without aura, not intractable, with status migrainosus G43.001 ; Gastro-esophageal reflux disease without esophagitis K21.9 ; CAD (coronary artery disease) I25.10 ; Hypertension I10 ; Hyperlipemia E78.5 ; Allergic rhinitis J30.9 ; Neuropathy G62.9 ; Anxiety associated with depression F41.8 and Injury of left hand S69.92XA [place] [id number] [place] [address] Apr, [place] [id number] [place] [address] Apr, [place] [id number] [place] [address] Apr, Type 2 diabetes mellitus with diabetic neuropathy, unspecified E11.40 ; Emphysema, unspecified J43.9 ; Essential (primary) hypertension I10 ; Atherosclerotic heart disease of [place] coronary artery without angina pectoris I25.10 ; Gastro-esophageal reflux disease without esophagitis K21.9 ; CAD (coronary artery disease) I25.10 ; Hyperlipemia E78.5 ; Hypertension I10 ; History of solitary pulmonary nodule Z87.898 ; Allergic rhinitis J30.9 ; Chronic pain G89.29 and Depression with anxiety F41.8 [place] [address] [address] Mar, [place] [address] [address] Mar, Allergic rhinitis J30.9 ; URI (upper respiratory infection) J06.9 and Other viral agents as the cause of diseases classified elsewhere B97.89 [facility] [address] [address] Feb, Acute nasopharyngitis [common cold] J00 and Acute diarrhea R19.[address] [address] 17 Feb, 2015 Depression F32.[address] [address] Jan, Otitis media, right H66.[address] [address] Jan, [address] [address] Jan, Type 2 diabetes mellitus with diabetic neuropathy, unspecified E11.[address] [address] Jan, [place] [address] [address] Jan, Hyperlipemia E78.[address] [address] Jan, Type 2 diabetes mellitus with diabetic neuropathy, unspecified E11.40 ; Emphysema, unspecified J43.9 ; CAD (coronary artery disease) I25.10 and Hyperlipemia E78.[address] [address] Dec, Allergic rhinitis J30.9 and Fungal infection B49 [place] [address] [place] [id number] [place] [address] Dec, [place] [address] [address] Dec, [place] [address] [address] Dec, Chest pain R07.9 ; CAD (coronary artery disease) I25.10 ; Hypertension I10 and Hyperlipemia E78.[address] [address] Dec, Pain in thoracic spine M54.6 ; Gastro-esophageal reflux disease without esophagitis K21.9 ; Emphysema, unspecified J43.9 and Migraine without aura, not intractable, with status migrainosus G43.001 [place] [address] [address] Dec, [place] [address] [address] Nov, Influenza vaccine administered V04.[address] [address] Nov, [place] [address] [place] [id number] [place] [address] Sep, [place] [address] [address] Sep, [place] [address] [place] [id number] [place] [address] Sep, CAD (coronary artery disease) 414.00 and Diabetes type 2, uncontrolled 250.02 [place] [address] [place] [id number] [place] [address] Sep, CAD (coronary artery disease) 414.00 ; Diabetes type 2, uncontrolled 250.02 and Migraine 346.90 IMMUNIZATIONS No Known Immunizations SOCIAL HISTORY Never Assessed REASON FOR VISIT Controlled Med Refill PLAN OF CARE VITAL SIGNS MEDICATIONS Medication Instructions Dosage Frequency Start Date End Date Duration Status Hydrocodone-Acetaminophen 7.5-325 MG Orally every 6 hours as needed 1 tablet as needed Jun, 28 days Active RESULTS No Results PROCEDURES [...] unspecified Medical History Atherosclerotic heart disease of [place] coronary artery without angina pectoris Medical History [...]
--- OUTSIDE RECORDS SUMMARY | 2018-08-23 17:06 | XMS REPORT ---
Author Author BRANDIN REYES [facility] Address [address] [place] [address] Care Team Providers Care Home Health Care Coordinator Name Role Phone BRANDIN REYES Unavailable PROBLEMS Type Condition ICD9-CM Code DBN22-KI Code Onset Dates Condition Status SNOMED Code Problem Primary insomnia F51.01 Active 2685584 Problem Neuropathy G62.9 Active 683323751 Problem Periodontitis K05.30 Active 07920051 Problem Atherosclerotic heart disease of [place] coronary artery without angina pectoris I25.10 Active 541720593277200 Problem Vitamin D deficiency E55.9 Active 40638678 Problem Hammer toe of left foot M20.42 Active 479737107 Problem Other hammer toe(s) (acquired), left foot M20.42 Active 45179702 Problem Dependence on nocturnal oxygen therapy Z99.81 Active 11620831450728 Problem Tobacco abuse Z72.0 Active 789775444 Problem Other hammer toe(s) (acquired), right foot M20.41 Active 825745902 Problem Gastro-esophageal reflux disease without esophagitis K21.9 Active 126606445 Problem Emphysema, unspecified J43.9 Active 44578817 Problem Hypertension I10 Active 33812409 Problem Hyperlipemia E78.5 Active 36403365 Problem Anxiety associated with depression F41.8 Active 104830045 Problem Chronic pain G89.29 Active 83309890 Problem Type 2 diabetes mellitus with diabetic neuropathy, unspecified E11.40 Active 40486410 Problem OAB (overactive bladder) N32.81 Active 965126013 Problem Allergic rhinitis J30.9 Active 42185270 Problem Rheumatoid arthritis involving multiple sites with positive rheumatoid factor M05.79 Active 813569020 ALLERGIES No Information ENCOUNTERS Encounter Location Date Diagnosis [facility] [address] [facility] [id number] [address] Oct, [facility] [address] [place] [id number] [place] [address] Sep, Rheumatoid arthritis involving multiple sites with positive rheumatoid factor M05.79 and Tobacco abuse Z72.0 [place] [address] [address] Sep, Chronic pain G89.29 [place] [address] [address] Aug, Type 2 diabetes mellitus with diabetic neuropathy, unspecified E11.40 ; Hypertension I10 ; Hyperlipemia E78.5 ; Gastro-esophageal reflux disease without esophagitis K21.9 ; Emphysema, unspecified J43.9 ; Anxiety associated with depression F41.8 ; Vitamin D deficiency E55.9 ; Chronic pain G89.29 ; Tobacco abuse Z72.0 ; Overweight (BMI 25.0-29.9) E66.3 ; Atherosclerotic heart disease of [place] coronary artery without angina pectoris I25.10 ; OAB (overactive bladder) N32.81 and Primary insomnia F51.01 [place] [address] [address] July, [place] [address] [address] July, [place] [address] [address] July, Chronic pain G89.29 [place] [address] [place] [id number] [place] [address] July, [address] [address] July, Onychomycosis B35.1 ; Hammer toe of left foot M20.42 and Type 2 diabetes mellitus with diabetic neuropathy, unspecified E11.40 [place] [address] [address] July, [place] [address] [address] July, Chronic pain G89.29 and Neuropathy G62.9 [facility] [address] [place] [address] July, [facility] [address] [place] [id number] [place] [address] July, [facility] [address] [place] [id number] [place] [address] Jun, [facility] [address] [place] [id number] [place] [address] Jun, Chronic pain G89.29 [facility] [address] [place] [id number] [place] [address] Jun, [facility] [address] [place] [id number] [place] [address] Jun, [facility] [address] [place] [id number] [place] [address] Jun, Visit for TB skin test Z11.1 [facility] [address] [place] [id number] [place] [address] 16 Jun, 2017 [facility] [address] [place] [id number] [place] [address] Jun, [facility] [address] [place] [id number] [place] [address] Jun, Tobacco abuse Z72.0 and Rheumatoid arthritis involving multiple sites with positive rheumatoid factor M05.79 [facility] [address] [place] [id number] [place] [address] Jun, Anxiety F41.9 ; Acute non-recurrent maxillary sinusitis J01.00 and Chronic pain G89.29 [facility] [address] [place] [id number] [place] [address] Jun, [facility] [address] [place] [address] [id number] [place] [address] May, Rheumatoid arthritis involving multiple sites with positive rheumatoid factor M05.79 [place] [id number] [address] May, Chronic pain G89.29 [place] [address] [place] [id number] [place] [address] May, [place] [address] [place] [id number] [place] [address] May, [place] [address] [address] May, [place] [address] [place] [id number] [place] [address] May, Type 2 diabetes mellitus with diabetic neuropathy, unspecified E11.40 [place] [address] [place] [id number] [place] [address] May, Type 2 diabetes mellitus with diabetic neuropathy, unspecified E11.40 ; Emphysema, unspecified J43.9 ; Hypertension I10 ; Hyperlipemia E78.5 ; Vitamin D deficiency E55.9 ; Right medial knee pain M25.561 ; Controlled substance agreement signed Z79.899 ; Chronic pain G89.29 ; Allergic rhinitis J30.9 ; Anxiety associated with depression F41.8 ; Neuropathy G62.9 and Gastro- esophageal reflux disease without esophagitis K21.9 [place] [address] [place] [address] 22 Apr, 2017 Chronic pain G89.29 [place] [address] [place] [id number] [place] [address] 16 Apr, 2017 Other hammer toe(s) (acquired), left foot M20.42 ; Other hammer toe(s) (acquired), right foot M20.41 ; Type 2 diabetes mellitus with diabetic neuropathy, unspecified E11.40 and Onychomycosis B35.1 [place] [address] [place] [address] 2017 Gastro-esophageal reflux disease without esophagitis K21.9 [place] [address] [place] [id number] [place] [address] Apr, Controlled substance agreement signed Z79.899 [place] [address] [address] Mar, Chronic pain G89.29 [place] [address] [address] Mar, Emphysema, unspecified J43.9 and Type 2 diabetes mellitus with diabetic neuropathy, unspecified E11.40 [facility] [address] [address] Mar, Dysuria R30.0 ; Vaginal candidiasis B37.3 and Acute nonintractable headache, unspecified headache type R51 [place] [address] [address] Feb, Neuropathy G62.9 and Chronic pain G89.29 [place] [address] [address] Feb, Gastro-esophageal reflux disease without esophagitis K21.9 [place] [address] [address] Feb, [place] [address] [address] Feb, Rheumatoid arthritis involving multiple sites with positive rheumatoid factor M05.79 and COPD with acute exacerbation J44.1 [place] [address] [address] Feb, Vaginal odor N89.8 ; Vaginal irritation N89.8 ; Candidal dermatitis B37.2 and Screening breast examination Z12.31 [place] [address] [address] Feb, [place] [address] [address] 05 Feb, 2017 [place] [address] [address] Feb, [place] [address] [address] Feb, COPD with exacerbation J44.1 ; Tobacco abuse counseling Z71.6 ; Tobacco abuse Z72.0 ; Rheumatoid arthritis involving multiple sites with positive rheumatoid factor M05.79 and Hyperlipemia E78.5 [place] [address] [address] Feb, [facility] [address] [id number] Jan, [address] [address] Jan, Chronic pain G89.29 [place] [address] [id number] Jan, Dental examination Z01.20 [facility] [address] [place] [address] Jan, Back pain of lumbar region with sciatica M54.40 [facility] [address] [address] 15 Jan, 2017 Acute bacterial conjunctivitis of both eyes H10.[address] [address] 02 Jan, 2017 Chronic pain G89.29 [place] [address] [address] Dec, Type 2 diabetes mellitus with diabetic neuropathy, unspecified E11.40 ; Hypertension I10 ; Hyperlipemia E78.5 ; Gastro-esophageal reflux disease without esophagitis K21.9 ; Anxiety associated with depression F41.8 ; Allergic rhinitis J30.9 ; Neuropathy G62.9 and Dependence on nocturnal oxygen therapy Z99.81 [place] [address] [address] Dec, [place] [address] [address] Dec, [facility] [address] [place] [id number] [place] [address] 09 Dec, 2016 Encounter for immunization Z23 [facility] [address] [address] 05 Dec, 2016 Type 2 diabetes mellitus with diabetic neuropathy, unspecified E11.40 and Chronic pain G89.29 [place] [address] [address] 11 Nov, 2016 Gastro-esophageal reflux disease without esophagitis K21.9 [place] [address] [address] 11 Nov, 2016 Peripheral edema R60.9 and Chest pain in adult R07.9 [place] [address] [address] 07 Nov, 2016 Chronic pain G89.29 [place] [address] [address] 31 Oct, 2016 [place] [address] [address] 30 Oct, 2016 [place] [address] [address] 17 Oct, 2016 Rheumatoid arthritis with rheumatoid factor of right wrist without organ or systems involvement M05.731 [place] [address] [address] 15 Oct, 2016 [facility] [address] [place] [id number] [place] [address] 14 Oct, 2016 Acute exacerbation of chronic obstructive pulmonary disease (COPD) J44.1 and Canker sore K12.0 [facility] [address] [place] [id number] [place] [address] 14 Oct, 2016 [facility] [address] [place] [id number] [place] [address] Oct, [place] [address] [place] [id number] [place] [address] Oct, Chronic pain G89.29 [facility] [address] [id number] Oct, Dental examination Z01.20 [facility] [address] [place] [id number] [place] [address] Oct, Dental examination Z01.20 and Periodontitis K05.30 [facility] [address] [place] [id number] [place] [id number] Oct, Dental examination Z01.20 [facility] [address] [address] Sep, Abscess L02.91 [facility] [address] [address] Sep, Dental examination Z01.20 [facility] [address] [place] [id number] [place] [address] Sep, [facility] [address] [place] [id number] [place] [id number] Sep, Dental examination Z01.20 and Dental caries K02.9 [facility] [address] [place] [id number] [place] [address] Sep, Primary insomnia F51.01 and Anxiety associated with depression F41.8 [place] [address] [place] [id number] [place] [address] Sep, Rheumatoid arthritis with rheumatoid factor of right wrist without organ or systems involvement M05.731 [place] [address] [address] Sep, Chronic pain G89.29 [facility] [address] [place] [id number] [place] [address] Sep, Type 2 diabetes mellitus with diabetic neuropathy, unspecified E11.40 ; Emphysema, unspecified J43.9 ; Gastro-esophageal reflux disease without esophagitis K21.9 ; Hypertension I10 ; Hyperlipemia E78.5 ; Anxiety associated with depression F41.8 ; Chronic pain G89.29 ; Vitamin D deficiency E55.9 and Primary insomnia F51.01 [place] [address] [place] [id number] [place] [address] 16 Aug, 2016 Anxiety associated with depression F41.8 [place] [address] [place] [id number] [place] [address] 13 Aug, 2016 Chronic pain G89.29 and Neuropathy G62.9 [place] [address] [place] [id number] [place] [address] Aug, Type 2 diabetes mellitus with diabetic neuropathy, unspecified E11.40 ; Rheumatoid arthritis involving multiple sites with positive rheumatoid factor M05.79 ; Vitamin D deficiency E55.9 ; Anxiety associated with depression F41.8 and Primary insomnia F51.01 [place] [address] [address] July, Emphysema, unspecified J43.9 [place] [address] [place] [id number] [place] [address] July, Allergic rhinitis J30.9 [place] [address] [place] [id number] [place] [address] July, Allergic rhinitis J30.9 ; Emphysema, unspecified J43.9 and Rheumatoid arthritis with rheumatoid factor of right wrist without organ or systems involvement M05.731 [place] [address] [place] [id number] [place] [address] July, Neuropathy G62.9 and Chronic pain G89.29 [place] [address] [place] [id number] [place] [address] July, Rheumatoid arthritis involving multiple sites with positive rheumatoid factor M05.79 [place] [address] [place] [id number] [place] [address] Jun, [place] [address] [address] Jun, Neuropathy G62.9 and Chronic pain G89.29 [place] [address] [place] [id number] [place] [address] May, Neuropathy G62.9 and Chronic pain G89.29 [place] [address] [place] [id number] [place] [address] May, [place] [address] [address] May, [place] [address] [place] [id number] [place] [address] May, Type 2 diabetes mellitus with diabetic [...] system involvement with positive rheumatoid factor M05.732 [place] [address] [place] [id number] [place] [address] Apr, Chronic pain G89.29 [place] [address] [place] [id number] [place] [address] Mar, Gastro-esophageal reflux disease without esophagitis K21.9 [place] [address] [place] [id number] [place] [address] Mar, [place] [address] [place] [id number] [place] [address] Mar, Rheumatoid arthritis with rheumatoid factor of right wrist without organ or systems involvement M05.731 [place] [address] [place] [id number] [place] [address] Mar, Chronic pain G89.29 [place] [address] [place] [id number] [place] [address] 30 Feb, 2016 Hyperlipemia E78.5 [place] [address] [address] Feb, Abnormal breath sounds R06.89 ; COPD with exacerbation J44.1 and Fatigue, unspecified type R53.83 [place] [address] [address] Feb, Neuropathy G62.9 ; Abnormal lung sounds R09.89 and Bronchitis J40 [facility] [place] [address] [address] Feb, Bronchitis J40 [place] [address] [address] Feb, Chronic pain G89.29 [place] [address] [address] Jan, Type 2 diabetes mellitus with diabetic neuropathy, unspecified E11.40 ; Rheumatoid arthritis with rheumatoid factor of right wrist without organ or systems involvement M05.731 and Hyperlipemia E78.5 [place] [address] [address] Jan, Rheumatoid arthritis with rheumatoid factor of right wrist without organ or systems involvement M05.731 [place] [address] [place] [id number] [place] [address] Jan, [place] Quervain's disease (radial styloid tenosynovitis) M65.4 ; Closed nondisplaced fracture of scaphoid of left wrist, unspecified portion of scaphoid, initial encounter S62.002A and Peripheral tear of medial meniscus of left knee, unspecified whether old or current tear, initial encounter S83.222A [place] [address] [place] [id number] [place] [address] Jan, Hypertension I10 ; Type 2 diabetes mellitus with diabetic neuropathy, unspecified E11.40 ; Hyperlipemia E78.5 ; Allergic rhinitis J30.9 ; Neuropathy G62.9 ; Rheumatoid arthritis with rheumatoid factor of right wrist without organ or systems involvement M05.731 ; Acute non-recurrent maxillary sinusitis J01.00 and Chronic pain G89.29 [place] [address] [place] [id number] [place] [address] Dec, [place] [address] [address] Dec, [place] [address] [address] Dec, Type 2 diabetes mellitus with diabetic neuropathy, unspecified E11.40 ; Emphysema, unspecified J43.9 ; Gastro-esophageal reflux disease without esophagitis K21.9 ; Hypertension I10 ; Hyperlipemia E78.5 ; Rheumatoid arthritis with rheumatoid factor of right wrist without organ or systems involvement M05.731 ; Elevated white blood cell count, unspecified D72.829 ; Acute non- recurrent frontal sinusitis J01.10 and Chronic pain G89.29 [place] [address] [place] [id number] [place] [address] Nov, [place] [address] [place] [id number] [place] [address] Nov, Elevated white blood cell count, unspecified D72.829 ; Encounter for immunization Z23 ; Rheumatoid arthritis with rheumatoid factor of right wrist without organ or systems involvement M05.731 ; Injury of left hand S69.92XA ; Pain in left knee M25.562 and Other chronic pain G89.29 [place] [address] [place] [id number] [place] [address] Nov, [place] [address] [address] Nov, [place] [address] [place] [id number] [place] [address] Oct, [place] [address] [address] Oct, Hyperlipemia E78.5 [place] [address] [place] [id number] [place] [address] Oct, [place] [address] [place] [id number] [place] [address] Oct, Type 2 diabetes mellitus with diabetic neuropathy, unspecified E11.40 ; Neuropathy G62.9 ; Hypertension I10 ; Chronic pain G89.29 and Hyperlipemia E78.5 [place] [address] [place] [id number] [place] [address] Oct, Emphysema, unspecified J43.9 and Rheumatoid arthritis of left wrist without organ or system involvement with positive rheumatoid factor M05.732 [place] [address] [place] [id number] [place] [address] Sep, Chronic pain syndrome G89.4 [place] [address] [place] [id number] [place] [address] Sep, [place] [address] [place] [id number] [place] [address] Sep, [place] [address] [place] [id number] [place] [address] Sep, Closed nondisplaced fracture of scaphoid of left wrist, unspecified portion of scaphoid, initial encounter S62.002A [place] [address] [place] [id number] [place] [address] Sep, Type 2 diabetes mellitus with diabetic neuropathy, unspecified E11.40 ; Hypertension I10 ; Hyperlipemia E78.5 and Acute non-recurrent maxillary sinusitis J01.00 [place] [address] [place] [id number] [place] [address] Sep, [place] [address] [place] [id number] [place] [address] Sep, [place] [address] [place] [id number] [place] [address] Sep, [facility] [address] [place] [id number] [place] [address] Sep, [facility] [address] [place] [id number] [place] [address] Aug, Epigastric pain R10.13 and Right upper quadrant pain R10.11 [place] [address] [address] Aug, Closed nondisplaced fracture of scaphoid of left wrist, unspecified portion of scaphoid, initial encounter S62.002A [place] [address] [address] Aug, [place] [address] [place] [id number] [place] [address] Aug, [facility] [address] [address] Aug, Shortness of breath R06.02 ; Epigastric pain R10.13 and Injury of left lower arm, initial encounter S59.912A [place] [address] [place] [id number] [place] [address] Aug, Coronary artery disease involving [place] heart with angina pectoris, unspecified vessel or lesion type I25.119 ; Pulmonary emphysema, unspecified emphysema type J43.9 and Snoring R06.83 [place] [address] [place] [id number] [place] [address] Aug, [facility] [address] [place] [id number] [place] [address] Aug, Emphysema, unspecified J43.9 ; Atherosclerotic heart disease of [place] coronary artery without angina pectoris I25.10 and Hypertension I10 [facility] [address] [place] [id number] [place] [address] July, [place] [address] [address] July, Closed nondisplaced fracture of scaphoid of left wrist, unspecified portion of scaphoid, initial encounter S62.002A [place] [address] [place] [id number] [place] [address] July, [place] [address] [place] [id number] [place] [address] July, Type 2 diabetes mellitus with diabetic neuropathy, unspecified E11.40 ; Emphysema, unspecified J43.9 ; Atherosclerotic heart disease of [place] coronary artery without angina pectoris I25.10 ; [...] agents L24.89 and Hospital discharge follow-up Z09 [place] [address] [place] [address] July, [place] [address] [place] [id number] [place] [address] July, Type 2 diabetes mellitus with diabetic neuropathy, unspecified E11.40 [place] [address] [place] [address] July, Type 2 diabetes mellitus with diabetic neuropathy, unspecified E11.40 and Rheumatoid arthritis of left wrist without organ or system involvement with positive rheumatoid factor M05.732 [place] [address] [address] July, [place] [address] [place] [id number] [place] [address] July, [place] [address] [place] [id number] [place] [address] Jun, [place] [address] [place] [id number] [place] [address] Jun, [place] [id number] [address] Jun, 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 [place] [id number] [address] Jun, [place] [id number] [address] Jun, 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 [place] [address] [place] [address] Jun, [place] [address] [place] [address] Jun, [place] [address] [place] [address] Jun, Encounter for PPD test Z11.1 ; Rheumatoid arthritis with rheumatoid factor of right wrist without organ or systems involvement M05.731 and Rheumatoid arthritis of left wrist without organ or system involvement with positive rheumatoid factor M05.732 [place] [address] [address] Jun, Type 2 diabetes mellitus with diabetic neuropathy, unspecified E11.40 [place] [address] [id number] [place] [id number] May, Type 2 diabetes mellitus with diabetic neuropathy, unspecified E11.40 ; Emphysema, unspecified J43.9 ; Rheumatoid arthritis with rheumatoid factor of right wrist without organ or systems involvement M05.731 ; Rheumatoid arthritis of left wrist without organ or system involvement with positive rheumatoid factor M05.732 and Chronic pain G89.29 [place] [id number] [address] May, [place] [address] [address] [place] [id number] [place] [id number] May, Swelling of hand joint M25.449 ; Ankle swelling M25.473 and Joint pain M25.50 [place] [address] [place] [id number] [place] [address] May, Emphysema, unspecified J43.9 [place] [address] [place] [id number] [place] [phone] May, Gastroenteritis K52.9 and Hypertension I10 [place] [address] [place] [id number] [place] [address] Apr, [place] [address] [address] Apr, [place] [address] [place] [id number] [place] [address] Apr, [place] [address] [place] [id number] [place] [phone] Apr, Type 2 diabetes mellitus with diabetic neuropathy, unspecified E11.40 ; Emphysema, unspecified J43.9 ; Atherosclerotic heart disease of [place] coronary artery without angina pectoris I25.10 ; Migraine without aura, not intractable, with status migrainosus G43.001 ; Gastro-esophageal reflux disease without esophagitis K21.9 ; CAD (coronary artery disease) I25.10 ; Hypertension I10 ; Hyperlipemia E78.5 ; Allergic rhinitis J30.9 ; Neuropathy G62.9 ; Anxiety associated with depression F41.8 and Injury of left hand S69.92XA [place] [id number] [place] [phone] Apr, [place] [id number] [place] [address] Apr, [place] [id number] [place] [address] Apr, Type 2 diabetes mellitus with diabetic neuropathy, unspecified E11.40 ; Emphysema, unspecified J43.9 ; Essential (primary) hypertension I10 ; Atherosclerotic heart disease of [place] coronary artery without angina pectoris I25.10 ; Gastro-esophageal reflux disease without esophagitis K21.9 ; CAD (coronary artery disease) I25.10 ; Hyperlipemia E78.5 ; Hypertension I10 ; History of solitary pulmonary nodule Z87.898 ; Allergic rhinitis J30.9 ; Chronic pain G89.29 and Depression with anxiety F41.8 [place] [address] [address] Mar, [place] [address] [address] Mar, Allergic rhinitis J30.9 ; URI (upper respiratory infection) J06.9 and Other viral agents as the cause of diseases classified elsewhere B97.89 [facility] [address] [address] Feb, Acute nasopharyngitis [common cold] J00 and Acute diarrhea R19.[address] [address] Feb, Depression F32.[address] [address] Jan, Otitis media, right H66.[address] [address] Jan, [address] [address] Jan, Type 2 diabetes mellitus with diabetic neuropathy, unspecified E11.[address] [address] Jan, [place] [address] [address] Jan, Hyperlipemia E78.[address] [address] Jan, Type 2 diabetes mellitus with diabetic neuropathy, unspecified E11.40 ; Emphysema, unspecified J43.9 ; CAD (coronary artery disease) I25.10 and Hyperlipemia E78.[address] [address] Dec, Allergic rhinitis J30.9 and Fungal infection B49 [place] [address] [place] [id number] [place] [phone] Dec, [place] [address] [address] Dec, [address] [address] Dec, Chest pain R07.9 ; CAD (coronary artery disease) I25.10 ; Hypertension I10 and Hyperlipemia E78.[address] [address] Dec, Pain in thoracic spine M54.6 ; Gastro-esophageal reflux disease without esophagitis K21.9 ; Emphysema, unspecified J43.9 and Migraine without aura, not intractable, with status migrainosus G43.[address] [address] Dec, [place] [address] [address] Nov, Influenza vaccine administered V04.[address] [address] Nov, [place] [address] [place] [id number] [place] [phone] Sep, [place] [address] [address] Sep, [place] [address] [place] [id number] [place] [address] Sep, CAD (coronary artery disease) 414.00 and Diabetes type 2, uncontrolled 250.02 [place] [address] [place] [id number] [place] [address] Sep, CAD (coronary artery disease) 414.00 ; Diabetes type 2, uncontrolled 250.02 and Migraine 346.90 IMMUNIZATIONS No Known Immunizations SOCIAL HISTORY Never Assessed REASON FOR VISIT Medication Questions PLAN OF CARE VITAL SIGNS MEDICATIONS Medication Instructions Dosage Frequency Start Date End Date Duration Status Humira Pen 40 MG/0.8ML Subcutaneous once every two weeks 0.8 ml Jun, July, 28 days Active RESULTS No Results PROCEDURES No Known procedures INSTRUCTIONS MEDICATIONS ADMINISTERED No Known Medications MEDICAL (GENERAL) HISTORY Type Description Date Medical History COPD Medical History Type 2 Diabetes Medical History HTN Medical History Cardiac stents July 2010 post MT-stent to LAD Medical History Rheumatoid Arthritis Medical History 04/2016---Echo- 60%//mild hypertrophy at the base of the septum, mild mitral regurg/ mild tricuspid regurg. PAP about 10-15 mmHg Medical History 04/2016------Normal Lexiscan Medical History Elevated white blood cell count, unspecified Medical History Atherosclerotic heart disease of [place] coronary artery without angina pectoris Medical History [...]
--- OUTSIDE RECORDS SUMMARY | 2018-08-23 17:06 | XMS REPORT ---
Author Author BRANDIN REYES [facility] Address [address] [place] [address] Care Team Providers Care Operating System Designer Name Role Phone BRANDIN REYES Unavailable PROBLEMS Type Condition ICD9-CM Code GYL90-AK Code Onset Dates Condition Status SNOMED Code Problem Primary insomnia F51.01 Active 4295831 Problem Neuropathy G62.9 Active 666198420 Problem Periodontitis K05.30 Active 77743357 Problem Atherosclerotic heart disease of [place] coronary artery without angina pectoris I25.10 Active 711972100502497 Problem Vitamin D deficiency E55.9 Active 11928488 Problem Hammer toe of left foot M20.42 Active 624355262 Problem Other hammer toe(s) (acquired), left foot M20.42 Active 46005703 Problem Dependence on nocturnal oxygen therapy Z99.81 Active 87241852083863 Problem Tobacco abuse Z72.0 Active 553100464 Problem Other hammer toe(s) (acquired), right foot M20.41 Active 605042132 Problem Gastro-esophageal reflux disease without esophagitis K21.9 Active 093162472 Problem Emphysema, unspecified J43.9 Active 67457585 Problem Hypertension I10 Active 18458118 Problem Hyperlipemia E78.5 Active 50696162 Problem Anxiety associated with depression F41.8 Active 778948237 Problem Chronic pain G89.29 Active 75989606 Problem Type 2 diabetes mellitus with diabetic neuropathy, unspecified E11.40 Active 49575686 Problem OAB (overactive bladder) N32.81 Active 090299850 Problem Allergic rhinitis J30.9 Active 38027850 Problem Rheumatoid arthritis involving multiple sites with positive rheumatoid factor M05.79 Active 179098665 ALLERGIES No Information ENCOUNTERS Encounter Location Date Diagnosis [facility] [address] [facility] [id number] [address] Oct, [facility] [address] [place] [id number] [place] [address] Sep, Rheumatoid arthritis involving multiple sites with positive rheumatoid factor M05.79 and Tobacco abuse Z72.0 [place] [address] [address] Sep, Chronic pain G89.29 [place] [address] [address] Aug, Type 2 diabetes mellitus with diabetic neuropathy, unspecified E11.40 ; Hypertension I10 ; Hyperlipemia E78.5 ; Gastro-esophageal reflux disease without esophagitis K21.9 ; Emphysema, unspecified J43.9 ; Anxiety associated with depression F41.8 ; Vitamin D deficiency E55.9 ; Chronic pain G89.29 ; Tobacco abuse Z72.0 ; Overweight (BMI 25.0-29.9) E66.3 ; Atherosclerotic heart disease of [place] coronary artery without angina pectoris I25.10 ; OAB (overactive bladder) N32.81 and Primary insomnia F51.01 [place] [address] [address] July, [place] [address] [address] July, [place] [address] [address] July, Chronic pain G89.29 [place] [address] [place] [id number] [place] [address] July, [address] [address] July, Onychomycosis B35.1 ; Hammer toe of left foot M20.42 and Type 2 diabetes mellitus with diabetic neuropathy, unspecified E11.40 [place] [address] [address] July, [place] [address] [address] July, Chronic pain G89.29 and Neuropathy G62.9 [facility] [id number] [place] [address] July, [facility] [address] [place] [id number] [place] [address] July, [facility] [address] [place] [id number] [place] [address] Jun, [facility] [address] [place] [id number] [place] [address] Jun, Chronic pain G89.29 [facility] [address] [place] [id number] [place] [address] Jun, [facility] [address] [place] [id number] [place] [address] Jun, [facility] [address] [place] [id number] [place] [address] Jun, Visit for TB skin test Z11.1 [facility] [address] [place] [id number] [place] [address] 16 Jun, 2017 [facility] [address] [place] [id number] [place] [address] Jun, [facility] [address] [place] [id number] [place] [address] Jun, Tobacco abuse Z72.0 and Rheumatoid arthritis involving multiple sites with positive rheumatoid factor M05.79 [facility] [address] [place] [id number] [place] [address] Jun, Anxiety F41.9 ; Acute non-recurrent maxillary sinusitis J01.00 and Chronic pain G89.29 [facility] [address] [place] [id number] [place] [address] Jun, [facility] [address] [place] [id number] [place] [address] May, Rheumatoid arthritis involving multiple sites with positive rheumatoid factor M05.79 [place] [address] [address] May, Chronic pain G89.29 [place] [address] [place] [id number] [place] [address] May, [place] [address] [place] [id number] [place] [address] May, [place] [address] [address] May, [place] [address] [place] [id number] [place] [address] May, Type 2 diabetes mellitus with diabetic neuropathy, unspecified E11.40 [place] [address] [place] [id number] [place] [address] May, Type 2 diabetes mellitus with diabetic neuropathy, unspecified E11.40 ; Emphysema, unspecified J43.9 ; Hypertension I10 ; Hyperlipemia E78.5 ; Vitamin D deficiency E55.9 ; Right medial knee pain M25.561 ; Controlled substance agreement signed Z79.899 ; Chronic pain G89.29 ; Allergic rhinitis J30.9 ; Anxiety associated with depression F41.8 ; Neuropathy G62.9 and Gastro- esophageal reflux disease without esophagitis K21.9 [place] [address] [place] [address] 22 Apr, 2017 Chronic pain G89.29 [place] [address] [place] [id number] [place] [address] 16 Apr, 2017 Other hammer toe(s) (acquired), left foot M20.42 ; Other hammer toe(s) (acquired), right foot M20.41 ; Type 2 diabetes mellitus with diabetic neuropathy, unspecified E11.40 and Onychomycosis B35.1 [place] [address] [place] [address] 2017 Gastro-esophageal reflux disease without esophagitis K21.9 [place] [address] [place] [id number] [place] [address] Apr, Controlled substance agreement signed Z79.899 [place] [address] [address] Mar, Chronic pain G89.29 [place] [address] [address] Mar, Emphysema, unspecified J43.9 and Type 2 diabetes mellitus with diabetic neuropathy, unspecified E11.40 [facility] [address] [address] Mar, Dysuria R30.0 ; Vaginal candidiasis B37.3 and Acute nonintractable headache, unspecified headache type R51 [place] [address] [address] Feb, Neuropathy G62.9 and Chronic pain G89.29 [place] [address] [address] Feb, Gastro-esophageal reflux disease without esophagitis K21.9 [place] [address] [address] Feb, [place] [address] [address] Feb, Rheumatoid arthritis involving multiple sites with positive rheumatoid factor M05.79 and COPD with acute exacerbation J44.1 [place] [address] [address] Feb, Vaginal odor N89.8 ; Vaginal irritation N89.8 ; Candidal dermatitis B37.2 and Screening breast examination Z12.31 [place] [address] [address] Feb, [place] [address] [address] 05 Feb, 2017 [place] [address] [address] Feb, [place] [address] [address] Feb, COPD with exacerbation J44.1 ; Tobacco abuse counseling Z71.6 ; Tobacco abuse Z72.0 ; Rheumatoid arthritis involving multiple sites with positive rheumatoid factor M05.79 and Hyperlipemia E78.5 [place] [address] [address] Feb, [facility] [address] [id number] Jan, [address] [address] Jan, Chronic pain G89.29 [place] [address] [id number] Jan, Dental examination Z01.20 [facility] [address] [place] [address] Jan, Back pain of lumbar region with sciatica M54.40 [facility] [address] [address] 15 Jan, 2017 Acute bacterial conjunctivitis of both eyes H10.[address] [address] 02 Jan, 2017 Chronic pain G89.29 [place] [address] [address] Dec, Type 2 diabetes mellitus with diabetic neuropathy, unspecified E11.40 ; Hypertension I10 ; Hyperlipemia E78.5 ; Gastro-esophageal reflux disease without esophagitis K21.9 ; Anxiety associated with depression F41.8 ; Allergic rhinitis J30.9 ; Neuropathy G62.9 and Dependence on nocturnal oxygen therapy Z99.81 [place] [address] [address] Dec, [place] [address] [address] Dec, [facility] [address] [place] [id number] [place] [address] 09 Dec, 2016 Encounter for immunization Z23 [facility] [address] [address] 05 Dec, 2016 Type 2 diabetes mellitus with diabetic neuropathy, unspecified E11.40 and Chronic pain G89.29 [place] [address] [address] 11 Nov, 2016 Gastro-esophageal reflux disease without esophagitis K21.9 [place] [address] [address] 11 Nov, 2016 Peripheral edema R60.9 and Chest pain in adult R07.9 [place] [address] [address] 07 Nov, 2016 Chronic pain G89.29 [place] [address] [address] 31 Oct, 2016 [place] [address] [address] 30 Oct, 2016 [place] [address] [address] 17 Oct, 2016 Rheumatoid arthritis with rheumatoid factor of right wrist without organ or systems involvement M05.731 [place] [address] [address] 15 Oct, 2016 [facility] [address] [place] [id number] [place] [address] 14 Oct, 2016 Acute exacerbation of chronic obstructive pulmonary disease (COPD) J44.1 and Canker sore K12.0 [facility] [address] [place] [id number] [place] [address] 14 Oct, 2016 [facility] [address] [place] [id number] [place] [address] Oct, [place] [address] [place] [id number] [place] [address] Oct, Chronic pain G89.29 [facility] [address] [id number] Oct, Dental examination Z01.20 [facility] [address] [place] [id number] [place] [address] Oct, Dental examination Z01.20 and Periodontitis K05.30 [facility] [address] [place] [id number] [place] [id number] Oct, Dental examination Z01.20 [facility] [address] [address] Sep, Abscess L02.91 [facility] [address] [address] Sep, Dental examination Z01.20 [facility] [address] [place] [id number] [place] [address] Sep, [facility] [address] [place] [id number] [place] [id number] Sep, Dental examination Z01.20 and Dental caries K02.9 [facility] [address] [place] [id number] [place] [address] Sep, Primary insomnia F51.01 and Anxiety associated with depression F41.8 [place] [address] [place] [id number] [place] [address] Sep, Rheumatoid arthritis with rheumatoid factor of right wrist without organ or systems involvement M05.731 [place] [address] [address] Sep, Chronic pain G89.29 [facility] [address] [place] [id number] [place] [address] Sep, Type 2 diabetes mellitus with diabetic neuropathy, unspecified E11.40 ; Emphysema, unspecified J43.9 ; Gastro-esophageal reflux disease without esophagitis K21.9 ; Hypertension I10 ; Hyperlipemia E78.5 ; Anxiety associated with depression F41.8 ; Chronic pain G89.29 ; Vitamin D deficiency E55.9 and Primary insomnia F51.01 [place] [address] [place] [id number] [place] [address] 16 Aug, 2016 Anxiety associated with depression F41.8 [place] [address] [place] [id number] [place] [address] 13 Aug, 2016 Chronic pain G89.29 and Neuropathy G62.9 [place] [address] [place] [id number] [place] [address] Aug, Type 2 diabetes mellitus with diabetic neuropathy, unspecified E11.40 ; Rheumatoid arthritis involving multiple sites with positive rheumatoid factor M05.79 ; Vitamin D deficiency E55.9 ; Anxiety associated with depression F41.8 and Primary insomnia F51.01 [place] [address] [address] July, Emphysema, unspecified J43.9 [place] [address] [place] [id number] [place] [address] July, Allergic rhinitis J30.9 [place] [address] [place] [id number] [place] [address] July, Allergic rhinitis J30.9 ; Emphysema, unspecified J43.9 and Rheumatoid arthritis with rheumatoid factor of right wrist without organ or systems involvement M05.731 [place] [address] [place] [id number] [place] [address] July, Neuropathy G62.9 and Chronic pain G89.29 [place] [address] [place] [id number] [place] [address] July, Rheumatoid arthritis involving multiple sites with positive rheumatoid factor M05.79 [place] [address] [place] [id number] [place] [address] Jun, [place] [address] [address] Jun, Neuropathy G62.9 and Chronic pain G89.29 [place] [address] [place] [id number] [place] [address] May, Neuropathy G62.9 and Chronic pain G89.29 [place] [address] [place] [id number] [place] [address] May, [place] [address] [address] May, [place] [address] [place] [id number] [place] [address] May, Type 2 diabetes mellitus with diabetic [...] system involvement with positive rheumatoid factor M05.732 [place] [address] [place] [id number] [place] [address] Apr, Chronic pain G89.29 [place] [address] [place] [id number] [place] [address] Mar, Gastro-esophageal reflux disease without esophagitis K21.9 [place] [address] [place] [id number] [place] [address] Mar, [place] [address] [place] [id number] [place] [address] Mar, Rheumatoid arthritis with rheumatoid factor of right wrist without organ or systems involvement M05.731 [place] [address] [place] [id number] [place] [address] Mar, Chronic pain G89.29 [place] [address] [place] [id number] [place] [address] 30 Feb, 2016 Hyperlipemia E78.5 [place] [address] [address] Feb, Abnormal breath sounds R06.89 ; COPD with exacerbation J44.1 and Fatigue, unspecified type R53.83 [place] [address] [address] Feb, Neuropathy G62.9 ; Abnormal lung sounds R09.89 and Bronchitis J40 [facility] [place] [address] [address] Feb, Bronchitis J40 [place] [address] [address] Feb, Chronic pain G89.29 [place] [address] [address] Jan, Type 2 diabetes mellitus with diabetic neuropathy, unspecified E11.40 ; Rheumatoid arthritis with rheumatoid factor of right wrist without organ or systems involvement M05.731 and Hyperlipemia E78.5 [place] [address] [address] Jan, Rheumatoid arthritis with rheumatoid factor of right wrist without organ or systems involvement M05.731 [place] [address] [place] [id number] [place] [address] Jan, De Quervain's disease (radial styloid tenosynovitis) M65.4 ; Closed nondisplaced fracture of scaphoid of left wrist, unspecified portion of scaphoid, initial encounter S62.002A and Peripheral tear of medial meniscus of left knee, unspecified whether old or current tear, initial encounter S83.222A [place] [address] [place] [id number] [place] [address] Jan, Hypertension I10 ; Type 2 diabetes mellitus with diabetic neuropathy, unspecified E11.40 ; Hyperlipemia E78.5 ; Allergic rhinitis J30.9 ; Neuropathy G62.9 ; Rheumatoid arthritis with rheumatoid factor of right wrist without organ or systems involvement M05.731 ; Acute non-recurrent maxillary sinusitis J01.00 and Chronic pain G89.29 [place] [address] [place] [id number] [place] [address] Dec, [place] [address] [address] Dec, [place] [address] [address] Dec, Type 2 diabetes mellitus with diabetic neuropathy, unspecified E11.40 ; Emphysema, unspecified J43.9 ; Gastro-esophageal reflux disease without esophagitis K21.9 ; Hypertension I10 ; Hyperlipemia E78.5 ; Rheumatoid arthritis with rheumatoid factor of right wrist without organ or systems involvement M05.731 ; Elevated white blood cell count, unspecified D72.829 ; Acute non- recurrent frontal sinusitis J01.10 and Chronic pain G89.29 [place] [address] [place] [id number] [place] [address] Nov, [place] [address] [place] [id number] [place] [address] Nov, Elevated white blood cell count, unspecified D72.829 ; Encounter for immunization Z23 ; Rheumatoid arthritis with rheumatoid factor of right wrist without organ or systems involvement M05.731 ; Injury of left hand S69.92XA ; Pain in left knee M25.562 and Other chronic pain G89.29 [place] [address] [place] [id number] [place] [address] Nov, [place] [address] [address] Nov, [place] [address] [place] [id number] [place] [address] Oct, [place] [address] [address] Oct, Hyperlipemia E78.5 [place] [address] [place] [id number] [place] [address] Oct, [place] [address] [place] [id number] [place] [address] Oct, Type 2 diabetes mellitus with diabetic neuropathy, unspecified E11.40 ; Neuropathy G62.9 ; Hypertension I10 ; Chronic pain G89.29 and Hyperlipemia E78.5 [place] [address] [place] [id number] [place] [address] Oct, Emphysema, unspecified J43.9 and Rheumatoid arthritis of left wrist without organ or system involvement with positive rheumatoid factor M05.732 [place] [address] [place] [id number] [place] [address] Sep, Chronic pain syndrome G89.4 [place] [address] [place] [id number] [place] [address] Sep, [place] [address] [place] [id number] [place] [address] Sep, [place] [address] [place] [id number] [place] [address] Sep, Closed nondisplaced fracture of scaphoid of left wrist, unspecified portion of scaphoid, initial encounter S62.002A [place] [address] [place] [id number] [place] [address] Sep, Type 2 diabetes mellitus with diabetic neuropathy, unspecified E11.40 ; Hypertension I10 ; Hyperlipemia E78.5 and Acute non-recurrent maxillary sinusitis J01.00 [place] [address] [place] [id number] [place] [address] Sep, [place] [address] [place] [id number] [place] [address] Sep, [place] [address] [place] [id number] [place] [address] Sep, [facility] [address] [place] [id number] [place] [address] Sep, [facility] [address] [place] [id number] [place] [address] Aug, Epigastric pain R10.13 and Right upper quadrant pain R10.11 [place] [address] [address] Aug, Closed nondisplaced fracture of scaphoid of left wrist, unspecified portion of scaphoid, initial encounter S62.002A [place] [address] [address] Aug, [place] [address] [place] [id number] [place] [address] Aug, [facility] [address] [address] Aug, Shortness of breath R06.02 ; Epigastric pain R10.13 and Injury of left lower arm, initial encounter S59.912A [place] [address] [place] [id number] [place] [address] Aug, Coronary artery disease involving [place] heart with angina pectoris, unspecified vessel or lesion type I25.119 ; Pulmonary emphysema, unspecified emphysema type J43.9 and Snoring R06.83 [place] [address] [place] [id number] [place] [address] Aug, [facility] [address] [place] [id number] [place] [address] Aug, Emphysema, unspecified J43.9 ; Atherosclerotic heart disease of [place] coronary artery without angina pectoris I25.10 and Hypertension I10 [facility] [address] [place] [id number] [place] [address] July, [place] [address] [address] July, Closed nondisplaced fracture of scaphoid of left wrist, unspecified portion of scaphoid, initial encounter S62.002A [place] [address] [place] [id number] [place] [address] July, [place] [address] [place] [id number] [place] [address] July, Type 2 diabetes mellitus with diabetic neuropathy, unspecified E11.40 ; Emphysema, unspecified J43.9 ; Atherosclerotic heart disease of [place] coronary artery without angina pectoris I25.10 ; [...] agents L24.89 and Hospital discharge follow-up Z09 [place] [address] [place] [address] July, [place] [address] [place] [id number] [place] [address] July, Type 2 diabetes mellitus with diabetic neuropathy, unspecified E11.40 [place] [address] [place] [address] July, Type 2 diabetes mellitus with diabetic neuropathy, unspecified E11.40 and Rheumatoid arthritis of left wrist without organ or system involvement with positive rheumatoid factor M05.732 [place] [address] [address] July, [place] [address] [place] [id number] [place] [address] July, [place] [address] [place] [id number] [place] [address] Jun, [place] [address] [place] [id number] [place] [address] Jun, [place] [id number] [address] Jun, 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 [place] [id number] [address] Jun, [place] [id number] [address] Jun, 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 [place] [id number] [place] [address] Jun, [place] [id number] [place] [address] Jun, [place] [id number] [place] [address] Jun, Encounter for PPD test Z11.1 ; Rheumatoid arthritis with rheumatoid factor of right wrist without organ or systems involvement M05.731 and Rheumatoid arthritis of left wrist without organ or system involvement with positive rheumatoid factor M05.732 [facility] [id number] [address] Jun, Type 2 diabetes mellitus with diabetic neuropathy, unspecified E11.40 [facility] [id number] [place] [address] May, Type 2 diabetes mellitus with diabetic neuropathy, unspecified E11.40 ; Emphysema, unspecified J43.9 ; Rheumatoid arthritis with rheumatoid factor of right wrist without organ or systems involvement M05.731 ; Rheumatoid arthritis of left wrist without organ or system involvement with positive rheumatoid factor M05.732 and Chronic pain G89.29 [facility] [id number] [address] May, [facility] [address] [place] [id number] [place] [address] May, Swelling of hand joint M25.449 ; Ankle swelling M25.473 and Joint pain M25.50 [facility] [address] [place] [id number] [place] [address] May, Emphysema, unspecified J43.9 [facility] [address] [place] [id number] [place] [address] May, Gastroenteritis K52.9 and Hypertension I10 [facility] [address] [place] [id number] [place] [address] Apr, [facility] [address] [address] Apr, [facility] [address] [place] [id number] [place] [address] Apr, [facility] [address] [place] [id number] [place] [address] Apr, Type 2 diabetes mellitus with diabetic neuropathy, unspecified E11.40 ; Emphysema, unspecified J43.9 ; Atherosclerotic heart disease of [place] coronary artery without angina pectoris I25.10 ; Migraine without aura, not intractable, with status migrainosus G43.001 ; Gastro-esophageal reflux disease without esophagitis K21.9 ; CAD (coronary artery disease) I25.10 ; Hypertension I10 ; Hyperlipemia E78.5 ; Allergic rhinitis J30.9 ; Neuropathy G62.9 ; Anxiety associated with depression F41.8 and Injury of left hand S69.92XA [facility] [id number] [place] [address] Apr, [place] [id number] [place] [address] Apr, [facility] [id number] [place] [address] Apr, Type 2 diabetes mellitus with diabetic neuropathy, unspecified E11.40 ; Emphysema, unspecified J43.9 ; Essential (primary) hypertension I10 ; Atherosclerotic heart disease of [place] coronary artery without angina pectoris I25.10 ; Gastro-esophageal reflux disease without esophagitis K21.9 ; CAD (coronary artery disease) I25.10 ; Hyperlipemia E78.5 ; Hypertension I10 ; History of solitary pulmonary nodule Z87.898 ; Allergic rhinitis J30.9 ; Chronic pain G89.29 and Depression with anxiety F41.8 [facility] [address] [address] Mar, [place] [address] [address] Mar, Allergic rhinitis J30.9 ; URI (upper respiratory infection) J06.9 and Other viral agents as the cause of diseases classified elsewhere B97.89 [facility] [address] [address] Feb, Acute nasopharyngitis [common cold] J00 and Acute diarrhea R19.[address] [address] Feb, Depression F32.[address] [address] Jan, Otitis media, right H66.[address] [address] Jan, [address] [address] Jan, Type 2 diabetes mellitus with diabetic neuropathy, unspecified E11.[address] [address] Jan, [place] [address] [address] Jan, Hyperlipemia E78.[address] [address] Jan, Type 2 diabetes mellitus with diabetic neuropathy, unspecified E11.40 ; Emphysema, unspecified J43.9 ; CAD (coronary artery disease) I25.10 and Hyperlipemia E78.[address] [address] Dec, Allergic rhinitis J30.9 and Fungal infection B49 [facility] [address] [place] [id number] [place] [address] Dec, [place] [address] [address] Dec, [address] [address] Dec, Chest pain R07.9 ; CAD (coronary artery disease) I25.10 ; Hypertension I10 and Hyperlipemia E78.[address] [address] Dec, Pain in thoracic spine M54.6 ; Gastro-esophageal reflux disease without esophagitis K21.9 ; Emphysema, unspecified J43.9 and Migraine without aura, not intractable, with status migrainosus G43.[address] [address] Dec, [place] [address] [address] Nov, Influenza vaccine administered V04.[address] [address] Nov, [place] [address] [place] [id number] [place] [address] Sep, [place] [address] [address] Sep, [place] [address] [place] [id number] [place] [address] Sep, CAD (coronary artery disease) 414.00 and Diabetes type 2, uncontrolled 250.02 [place] [address] [place] [id number] [place] [address] Sep, CAD (coronary artery disease) 414.00 ; Diabetes type 2, uncontrolled 250.02 and Migraine 346.90 IMMUNIZATIONS No Known Immunizations SOCIAL HISTORY Never Assessed REASON FOR VISIT TB skin test- Matt Marin PLAN OF CARE Activity Details Follow Up 48-72 hours Reason: VITAL SIGNS MEDICATIONS Unknown Medications RESULTS No Results PROCEDURES Procedure Date Ordered Result Body Site TB INTRADERMAL 2017-07-04 Negative TB INTRADERMAL TEST July 04, 2017 [facility] INSTRUCTIONS MEDICATIONS ADMINISTERED No Known [...] unspecified Medical History Atherosclerotic heart disease of [place] coronary artery without angina pectoris Medical History [...]
--- OUTSIDE RECORDS SUMMARY | 2018-08-23 17:07 | XMS REPORT ---
Author Author BRANDIN REYES Organization [facility] Address [address] [place] [address] Care Team Providers Care Finishing Technician Name Role Phone BRANDIN REYES Unavailable PROBLEMS Type Condition ICD9-CM Code RER57-QQ Code Onset Dates Condition Status SNOMED Code Problem Primary insomnia F51.01 Active 3399975 Problem Neuropathy G62.9 Active 787826657 Problem Periodontitis K05.30 Active 87762462 Problem Atherosclerotic heart disease of [place] coronary artery without angina pectoris I25.10 Active 285402352042953 Problem Vitamin D deficiency E55.9 Active 67337574 Problem Hammer toe of left foot M20.42 Active 141828452 Problem Other hammer toe(s) (acquired), left foot M20.42 Active 22767867 Problem Dependence on nocturnal oxygen therapy Z99.81 Active 61789486779935 Problem Tobacco abuse Z72.0 Active 671902864 Problem Other hammer toe(s) (acquired), right foot M20.41 Active 342195712 Problem Gastro-esophageal reflux disease without esophagitis K21.9 Active 824865671 Problem Emphysema, unspecified J43.9 Active 84056399 Problem Hypertension I10 Active 59130005 Problem Hyperlipemia E78.5 Active 50660581 Problem Anxiety associated with depression F41.8 Active 389006297 Problem Chronic pain G89.29 Active 28879705 Problem Type 2 diabetes mellitus with diabetic neuropathy, unspecified E11.40 Active 81306893 Problem OAB (overactive bladder) N32.81 Active 479543892 Problem Allergic rhinitis J30.9 Active 75231842 Problem Rheumatoid arthritis involving multiple sites with positive rheumatoid factor M05.79 Active 727970126 ALLERGIES Substance Reaction Event Type Date Status Sulfamethoxazole-Trimethoprim itching Drug Allergy Jun, Active Singulair dizziness Drug Allergy Jun, Active ENCOUNTERS Encounter Location Date Diagnosis [facility] [address] [facility] [id number] [address] Oct, [place] [address] [place] [id number] [place] [address] Sep, [place] [address] [place] [id number] [place] [address] Sep, Chronic pain G89.29 [place] [address] [place] [id number] [place] [address] Aug, Type 2 diabetes mellitus with diabetic neuropathy, unspecified E11.40 ; Hypertension I10 ; Hyperlipemia E78.5 ; Gastro-esophageal reflux disease without esophagitis K21.9 ; Emphysema, unspecified J43.9 ; Anxiety associated with depression F41.8 ; Vitamin D deficiency E55.9 ; Chronic pain G89.29 ; Tobacco abuse Z72.0 ; Overweight (BMI 25.0-29.9) E66.3 ; Atherosclerotic heart disease of [place] coronary artery without angina pectoris I25.10 ; OAB (overactive bladder) N32.81 and Primary insomnia F51.01 [place] [address] [place] [id number] [place] [address] July, [place] [address] [address] July, [place] [address] [place] [id number] [place] [address] July, Chronic pain G89.29 [place] [address] [place] [id number] [place] [address] July, [place] [address] [place] [id number] [place] [address] July, Onychomycosis B35.1 ; Hammer toe of left foot M20.42 and Type 2 diabetes mellitus with diabetic neuropathy, unspecified E11.40 [place] [address] [place] [id number] [place] [address] July, [place] [address] [place] [id number] [place] [address] July, Chronic pain G89.29 and Neuropathy G62.9 [facility] [address] [place] [id number] [place] [address] July, [facility] [address] [id number] [place] [address] July, [facility] [address] [id number] [place] [address] Jun, [facility] [address] [id number] [place] [address] Jun, Chronic pain G89.29 [facility] [address] [place] [id number] [place] [address] Jun, [facility] [address] [place] [id number] [place] [address] Jun, [facility] [address] [address] Jun, Visit for TB skin test Z11.1 [facility] [address] [place] [id number] [place] [address] Jun, [facility] [address] [id number] [place] [address] Jun, [facility] [address] [id number] [place] [address] Jun, Tobacco abuse Z72.0 and Rheumatoid arthritis involving multiple sites with positive rheumatoid factor M05.79 [facility] [address] [id number] [place] [address] Jun, Anxiety F41.9 ; Acute non-recurrent maxillary sinusitis J01.00 and Chronic pain G89.29 [facility] [address] [place] [id number] [place] [address] Jun, [facility] [address] [id number] [place] [address] May, Rheumatoid arthritis involving multiple sites with positive rheumatoid factor M05.79 [place] [address] [place] [address] May, Chronic pain G89.29 [place] [address] [id number] [place] [address] May, [place] [address] [place] [id number] [place] [address] May, [place] [address] [place] [id number] [place] [address] May, [place] [address] [place] [id number] [place] [address] May, Type 2 diabetes mellitus with diabetic neuropathy, unspecified E11.40 [place] [address] [id number] [place] [address] May, Type 2 diabetes mellitus with diabetic neuropathy, unspecified E11.40 ; Emphysema, unspecified J43.9 ; Hypertension I10 ; Hyperlipemia E78.5 ; Vitamin D deficiency E55.9 ; Right medial knee pain M25.561 ; Controlled substance agreement signed Z79.899 ; Chronic pain G89.29 ; Allergic rhinitis J30.9 ; Anxiety associated with depression F41.8 ; Neuropathy G62.9 and Gastro- esophageal reflux disease without esophagitis K21.9 [place] [address] [place] [address] Apr, Chronic pain G89.29 [place] [address] [place] [id number] [place] [address] 16 Apr, 2017 Other hammer toe(s) (acquired), left foot M20.42 ; Other hammer toe(s) (acquired), right foot M20.41 ; Type 2 diabetes mellitus with diabetic neuropathy, unspecified E11.40 and Onychomycosis B35.1 [place] [address] [place] [address] 2017 Gastro-esophageal reflux disease without esophagitis K21.9 [place] [address] [place] [id number] [place] [address] Apr, Controlled substance agreement signed Z79.899 [place] [address] [address] Mar, Chronic pain G89.29 [place] [address] [address] Mar, Emphysema, unspecified J43.9 and Type 2 diabetes mellitus with diabetic neuropathy, unspecified E11.40 [facility] [address] [address] Mar, Dysuria R30.0 ; Vaginal candidiasis B37.3 and Acute nonintractable headache, unspecified headache type R51 [place] [address] [address] Feb, Neuropathy G62.9 and Chronic pain G89.29 [place] [address] [address] Feb, Gastro-esophageal reflux disease without esophagitis K21.9 [place] [address] [address] Feb, [place] [address] [address] Feb, Rheumatoid arthritis involving multiple sites with positive rheumatoid factor M05.79 and COPD with acute exacerbation J44.1 [place] [address] [address] Feb, Vaginal odor N89.8 ; Vaginal irritation N89.8 ; Candidal dermatitis B37.2 and Screening breast examination Z12.31 [place] [address] [address] Feb, [place] [address] [address] Feb, [place] [address] [address] Feb, [place] [address] [address] Feb, COPD with exacerbation J44.1 ; Tobacco abuse counseling Z71.6 ; Tobacco abuse Z72.0 ; Rheumatoid arthritis involving multiple sites with positive rheumatoid factor M05.79 and Hyperlipemia E78.[address] [address] Feb, [facility] [address] [id number] Jan, [address] [address] Jan, Chronic pain G89.29 [facility] [address] [place] [id number] Jan, Dental examination Z01.20 [facility] [address] [place] [address] Jan, Back pain of lumbar region with sciatica M54.40 [facility] [address] [address] 15 Jan, 2017 Acute bacterial conjunctivitis of both eyes H10.[address] [address] 02 Jan, 2017 Chronic pain G89.[address] [address] Dec, Type 2 diabetes mellitus with diabetic neuropathy, unspecified E11.40 ; Hypertension I10 ; Hyperlipemia E78.5 ; Gastro-esophageal reflux disease without esophagitis K21.9 ; Anxiety associated with depression F41.8 ; Allergic rhinitis J30.9 ; Neuropathy G62.9 and Dependence on nocturnal oxygen therapy Z99.[address] [address] Dec, [place] [id number] [place] [address] Dec, [facility] [address] [address] 09 Dec, 2016 Encounter for immunization Z23 [facility] [address] [place] [id number] [place] [address] 05 Dec, 2016 Type 2 diabetes mellitus with diabetic neuropathy, unspecified E11.40 and Chronic pain G89.29 [place] [address] [address] 11 Nov, 2016 Gastro-esophageal reflux disease without esophagitis K21.9 [place] [address] [address] 11 Nov, 2016 Peripheral edema R60.9 and Chest pain in adult R07.9 [place] [address] [address] 07 Nov, 2016 Chronic pain G89.29 [place] [address] [place] [id number] [place] [address] 31 Oct, 2016 [place] [address] [address] 30 Oct, 2016 [place] [address] [place] [id number] [place] [address] 17 Oct, 2016 Rheumatoid arthritis with rheumatoid factor of right wrist without organ or systems involvement M05.731 [place] [address] [place] [id number] [place] [address] 15 Oct, 2016 [facility] [address] [id number] [place] [address] Oct, Acute exacerbation of chronic obstructive pulmonary disease (COPD) J44.1 and Canker sore K12.0 [place] [address] [place] [id number] [place] [address] Oct, [place] [address] [place] [id number] [place] [address] Oct, [facility] [address] [place] [address] Oct, Chronic pain G89.29 [facility] [address] [place] [id number] [place] [phone] Oct, Dental examination Z01.20 [facility] [address] [place] [id number] [place] [address] Oct, Dental examination Z01.20 and Periodontitis K05.30 [facility] [address] [place] [id number] [place] [phone] Oct, Dental examination Z01.20 [facility] [address] [place] [id number] [place] [address] Sep, Abscess L02.91 [facility] [address] [address] Sep, Dental examination Z01.20 [facility] [address] [place] [id number] [place] [address] Sep, [facility] [address] [place] [id number] [place] [id number] Sep, Dental examination Z01.20 and Dental caries K02.9 [facility] [address] [place] [id number] [place] [address] Sep, Primary insomnia F51.01 and Anxiety associated with depression F41.8 [facility] [address] [place] [id number] [place] [address] Sep, Rheumatoid arthritis with rheumatoid factor of right wrist without organ or systems involvement M05.731 [place] [address] [address] Sep, Chronic pain G89.29 [facility] [address] [place] [id number] [place] [address] Sep, Type 2 diabetes mellitus with diabetic neuropathy, unspecified E11.40 ; Emphysema, unspecified J43.9 ; Gastro-esophageal reflux disease without esophagitis K21.9 ; Hypertension I10 ; Hyperlipemia E78.5 ; Anxiety associated with depression F41.8 ; Chronic pain G89.29 ; Vitamin D deficiency E55.9 and Primary insomnia F51.01 [place] [address] [address] 16 Aug, 2016 Anxiety associated with depression F41.8 [place] [address] [place] [id number] [place] [address] 13 Aug, 2016 Chronic pain G89.29 and Neuropathy G62.9 [place] [id number] [place] [address] Aug, Type 2 diabetes mellitus with diabetic neuropathy, unspecified E11.40 ; Rheumatoid arthritis involving multiple sites with positive rheumatoid factor M05.79 ; Vitamin D deficiency E55.9 ; Anxiety associated with depression F41.8 and Primary insomnia F51.01 [place] [address] [place] [id number] [place] [address] July, Emphysema, unspecified J43.9 [place] [address] [place] [id number] [place] [address] July, Allergic rhinitis J30.9 [place] [address] [place] [id number] [place] [address] July, Allergic rhinitis J30.9 ; Emphysema, unspecified J43.9 and Rheumatoid arthritis with rheumatoid factor of right wrist without organ or systems involvement M05.731 [place] [address] [address] July, Neuropathy G62.9 and Chronic pain G89.29 [place] [address] [place] [id number] [place] [address] July, Rheumatoid arthritis involving multiple sites with positive rheumatoid factor M05.79 [place] [address] [place] [id number] [place] [address] Jun, [place] [address] [place] [id number] [place] [address] Jun, Neuropathy G62.9 and Chronic pain G89.29 [place] [address] [address] May, Neuropathy G62.9 and Chronic pain G89.29 [place] [address] [place] [id number] [place] [address] May, [place] [address] [address] May, [place] [address] [place] [id number] [place] [address] May, Type 2 diabetes mellitus with diabetic [...] system involvement with positive rheumatoid factor M05.732 [place] [address] [place] [id number] [place] [address] Apr, Chronic pain G89.29 [place] [address] [place] [id number] [place] [address] Mar, Gastro-esophageal reflux disease without esophagitis K21.9 [place] [address] [place] [id number] [place] [address] Mar, [place] [address] [place] [id number] [place] [address] Mar, Rheumatoid arthritis with rheumatoid factor of right wrist without organ or systems involvement M05.731 [place] [address] [place] [id number] [place] [address] Mar, Chronic pain G89.29 [place] [address] [place] [id number] [place] [address] Feb, Hyperlipemia E78.5 [place] [address] [place] [id number] [place] [address] Feb, Abnormal breath sounds R06.89 ; COPD with exacerbation J44.1 and Fatigue, unspecified type R53.83 [place] [address] [address] Feb, Neuropathy G62.9 ; Abnormal lung sounds R09.89 and Bronchitis J40 [facility] [place] [address] [address] Feb, Bronchitis J40 [place] [address] [address] Feb, Chronic pain G89.29 [place] [address] [address] Jan, Type 2 diabetes mellitus with diabetic neuropathy, unspecified E11.40 ; Rheumatoid arthritis with rheumatoid factor of right wrist without organ or systems involvement M05.731 and Hyperlipemia E78.5 [place] [address] [place] [id number] [place] [address] Jan, Rheumatoid arthritis with rheumatoid factor of right wrist without organ or systems involvement M05.731 [place] [address] [place] [address] [place] [address] Jan, [place]'s disease (radial styloid tenosynovitis) M65.4 ; Closed nondisplaced fracture of scaphoid of left wrist, unspecified portion of scaphoid, initial encounter S62.002A and Peripheral tear of medial meniscus of left knee, unspecified whether old or current tear, initial encounter S83.222A [place] [address] [place] [address] [place] [address] Jan, Hypertension I10 ; Type 2 diabetes mellitus with diabetic neuropathy, unspecified E11.40 ; Hyperlipemia E78.5 ; Allergic rhinitis J30.9 ; Neuropathy G62.9 ; Rheumatoid arthritis with rheumatoid factor of right wrist without organ or systems involvement M05.731 ; Acute non-recurrent maxillary sinusitis J01.00 and Chronic pain G89.29 [place] [address] [place] [id number] [place] [address] Dec, [place] [address] [address] Dec, [place] [address] [address] Dec, Type 2 diabetes mellitus with diabetic neuropathy, unspecified E11.40 ; Emphysema, unspecified J43.9 ; Gastro-esophageal reflux disease without esophagitis K21.9 ; Hypertension I10 ; Hyperlipemia E78.5 ; Rheumatoid arthritis with rheumatoid factor of right wrist without organ or systems involvement M05.731 ; Elevated white blood cell count, unspecified D72.829 ; Acute non- recurrent frontal sinusitis J01.10 and Chronic pain G89.29 [place] [address] [place] [id number] [place] [address] Nov, [place] [address] [address] Nov, Elevated white blood cell count, unspecified D72.829 ; Encounter for immunization Z23 ; Rheumatoid arthritis with rheumatoid factor of right wrist without organ or systems involvement M05.731 ; Injury of left hand S69.92XA ; Pain in left knee M25.562 and Other chronic pain G89.29 [place] [address] [place] [id number] [place] [address] Nov, [place] [address] [address] Nov, [place] [address] [place] [id number] [place] [address] Oct, [place] [address] [place] [address] Oct, Hyperlipemia E78.5 [place] [address] [address] Oct, [place] [address] [place] [id number] [place] [address] Oct, Type 2 diabetes mellitus with diabetic neuropathy, unspecified E11.40 ; Neuropathy G62.9 ; Hypertension I10 ; Chronic pain G89.29 and Hyperlipemia E78.5 [place] [address] [place] [address] [place] [address] Oct, Emphysema, unspecified J43.9 and Rheumatoid arthritis of left wrist without organ or system involvement with positive rheumatoid factor M05.732 [place] [address] [address] Sep, Chronic pain syndrome G89.4 [place] [address] [address] Sep, [place] [address] [place] [id number] [place] [address] Sep, [place] [address] [place] [id number] [place] [address] Sep, Closed nondisplaced fracture of scaphoid of left wrist, unspecified portion of scaphoid, initial encounter S62.002A [place] [address] [place] [id number] [place] [address] Sep, Type 2 diabetes mellitus with diabetic neuropathy, unspecified E11.40 ; Hypertension I10 ; Hyperlipemia E78.5 and Acute non-recurrent maxillary sinusitis J01.00 [place] [address] [place] [id number] [place] [address] Sep, [place] [address] [place] [id number] [place] [address] Sep, [place] [address] [place] [address] Sep, [facility] [address] [place] [id number] [place] [address] Sep, [place] [address] [address] Aug, Epigastric pain R10.13 and Right upper quadrant pain R10.11 [place] [address] [address] Aug, Closed nondisplaced fracture of scaphoid of left wrist, unspecified portion of scaphoid, initial encounter S62.002A [place] [address] [address] Aug, [place] [address] [address] Aug, [facility] [address] [address] Aug, Shortness of breath R06.02 ; Epigastric pain R10.13 and Injury of left lower arm, initial encounter S59.912A [place] [address] [place] [id number] [place] [address] Aug, Coronary artery disease involving [place] heart with angina pectoris, unspecified vessel or lesion type I25.119 ; Pulmonary emphysema, unspecified emphysema type J43.9 and Snoring R06.83 [place] [address] [place] [id number] [place] [address] Aug, [facility] [address] [place] [id number] [place] [address] Aug, Emphysema, unspecified J43.9 ; Atherosclerotic heart disease of [place] coronary artery without angina pectoris I25.10 and Hypertension I10 [place] [address] [place] [id number] [place] [address] July, [place] [address] [address] July, Closed nondisplaced fracture of scaphoid of left wrist, unspecified portion of scaphoid, initial encounter S62.002A [place] [address] [place] [id number] [place] [address] July, [place] [address] [place] [id number] [place] [address] July, Type 2 diabetes mellitus with diabetic neuropathy, unspecified E11.40 ; Emphysema, unspecified J43.9 ; Atherosclerotic heart disease of [place] coronary artery without angina pectoris I25.10 ; [...] agents L24.89 and Hospital discharge follow-up Z09 [place] [address] [place] [address] July, [place] [address] [place] [id number] [place] [address] July, Type 2 diabetes mellitus with diabetic neuropathy, unspecified E11.40 [place] [address] [place] [id number] [place] [address] July, Type 2 diabetes mellitus with diabetic neuropathy, unspecified E11.40 and Rheumatoid arthritis of left wrist without organ or system involvement with positive rheumatoid factor M05.732 [place] [id number] [place] [phone] July, [place] [address] [place] [id number] [place] [phone] July, [place] [address] [id number] [place] [phone] Jun, [place] [address] [place] [id number] [place] [phone] Jun, [facility] [id number] [address] Jun, 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 [facility] [id number] [place] [address] Jun, [facility] [id number] [place] [address] Jun, 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 [facility] [address] [id number], [place] [address] Jun, [facility] [address], [place] [address] Jun, [place] [address], [place] [address] Jun, Encounter for PPD test Z11.1 ; Rheumatoid arthritis with rheumatoid factor of right wrist without organ or systems involvement M05.731 and Rheumatoid arthritis of left wrist without organ or system involvement with positive rheumatoid factor M05.732 [place] [address], [place] [address] Jun, Type 2 diabetes mellitus with diabetic neuropathy, unspecified E11.40 [place] [address], [place] [address] May, Type 2 diabetes mellitus with diabetic neuropathy, unspecified E11.40 ; Emphysema, unspecified J43.9 ; Rheumatoid arthritis with rheumatoid factor of right wrist without organ or systems involvement M05.731 ; Rheumatoid arthritis of left wrist without organ or system involvement with positive rheumatoid factor M05.732 and Chronic pain G89.29 [place] [address], [place] [address] May, [place] [address], [place] [address] May, Swelling of hand joint M25.449 ; Ankle swelling M25.473 and Joint pain M25.50 [place] [address] [place] [id number] [place] [address] May, Emphysema, unspecified J43.9 [place] [address] [place] [id number] [place] [address] May, Gastroenteritis K52.9 and Hypertension I10 [place] [address] [place] [id number] [place] [address] Apr, [place] [address] [address] Apr, [place] [address] [place] [id number] [place] [address] Apr, [place] [address] [place] [id number] [place] [address] Apr, Type 2 diabetes mellitus with diabetic neuropathy, unspecified E11.40 ; Emphysema, unspecified J43.9 ; Atherosclerotic heart disease of [place] coronary artery without angina pectoris I25.10 ; Migraine without aura, not intractable, with status migrainosus G43.001 ; Gastro-esophageal reflux disease without esophagitis K21.9 ; CAD (coronary artery disease) I25.10 ; Hypertension I10 ; Hyperlipemia E78.5 ; Allergic rhinitis J30.9 ; Neuropathy G62.9 ; Anxiety associated with depression F41.8 and Injury of left hand S69.92XA [place] [address] [place] [address] Apr, [place] [address] [place] [address] Apr, [place] [address] [place] [address] Apr, Type 2 diabetes mellitus with diabetic neuropathy, unspecified E11.40 ; Emphysema, unspecified J43.9 ; Essential (primary) hypertension I10 ; Atherosclerotic heart disease of [place] coronary artery without angina pectoris I25.10 ; Gastro-esophageal reflux disease without esophagitis K21.9 ; CAD (coronary artery disease) I25.10 ; Hyperlipemia E78.5 ; Hypertension I10 ; History of solitary pulmonary nodule Z87.898 ; Allergic rhinitis J30.9 ; Chronic pain G89.29 and Depression with anxiety F41.8 [place] [address] [address] Mar, [place] [address] [address] Mar, Allergic rhinitis J30.9 ; URI (upper respiratory infection) J06.9 and Other viral agents as the cause of diseases classified elsewhere B97.89 [facility] [address] [address] Feb, Acute nasopharyngitis [common cold] J00 and Acute diarrhea R19.[address] [address] 17 Feb, 2015 Depression F32.[address] [address] Jan, Otitis media, right H66.[address] [address] Jan, [place] [address] [address] Jan, Type 2 diabetes mellitus with diabetic neuropathy, unspecified E11.40 [place] [address] [address] Jan, [place] [address] [address] Jan, Hyperlipemia E78.5 [place] [address] [address] Jan, Type 2 diabetes mellitus with diabetic neuropathy, unspecified E11.40 ; Emphysema, unspecified J43.9 ; CAD (coronary artery disease) I25.10 and Hyperlipemia E78.5 [place] [address] [address] Dec, Allergic rhinitis J30.9 and Fungal infection B49 [place] [address] [address] Dec, [place] [address] [address] Dec, [place] [address] [address] Dec, Chest pain R07.9 ; CAD (coronary artery disease) I25.10 ; Hypertension I10 and Hyperlipemia E78.[address] [address] Dec, Pain in thoracic spine M54.6 ; Gastro-esophageal reflux disease without esophagitis K21.9 ; Emphysema, unspecified J43.9 and Migraine without aura, not intractable, with status migrainosus G43.001 [place] [address] [address] Dec, [place] [address] [address] Nov, Influenza vaccine administered V04.[address] [address] Nov, [place] [address] [address] Sep, [place] [address] [address] Sep, [place] [address] [address] Sep, CAD (coronary artery disease) 414.00 and Diabetes type 2, uncontrolled 250.02 [place] [address] [address] Sep, CAD (coronary artery disease) 414.00 ; Diabetes type 2, uncontrolled 250.02 and Migraine 346.90 IMMUNIZATIONS No Known Immunizations SOCIAL HISTORY Never Assessed REASON FOR VISIT Arthritis PLAN OF CARE Activity Details Follow Up 3 Months Reason:RA VITAL SIGNS Height 66 in 2017-06-26 Weight 184 lbs 2017-06-26 Temperature 97.9 degrees Fahrenheit 2017-06-26 Heart Rate 80 bpm 2017-06-26 Respiratory Rate 20 2017-06-26 BMI 29.70 kg/m2 2017-06-26 Blood pressure systolic 128 mmHg 2017-06-26 Blood pressure diastolic 72 mmHg 2017-06-26 MEDICATIONS Medication Instructions Dosage Frequency Start Date End Date Duration Status Trazodone HCl 50 MG TAKE ONE TABLET BY MOUTH ONCE DAILY AT BEDTIME NEEDED 30 Active Victoza 18 MG/3ML INJECT 1.8 MG SUBCUTANEOUSLY ONCE DAILY 30 Active Quad Cane as directed May, Active Methotrexate 2.5 MG Orally once weekly 10 TABLETS 90 days Active Aleve 220 MG Orally every 12 hrs 1 tablet 12h Active Blood Glucose Monitor System w/Device as directed July, Active Aspirin Adult Low Strength 81 MG Orally Once a day 1 tablet 24h 90 Active Symbicort 160-4.5 MCG/ACT INHALE 2 PUFFS BY MOUTH TWICE DAILY. (NEED TO MAKE AN APPOINTMENT FOR REFILLS) 30 Active Easy Touch Pen [place] 32G X 4 MM sq 4 times a day as directed 6h Sep, 90 days Active Cetirizine HCl 10 Orally Once a day TAKE 1 TABLET BY MOUTH DAILY 24h Active Atorvastatin Calcium 10 MG TAKE ONE TABLET BY MOUTH ONCE DAILY 30 Active Oxygen Active Metformin HCl 1000 MG TAKE ONE TABLET BY MOUTH TWICE DAILY WITH MEALS 30 Active Lyrica 100 mg Orally Three times a day 1 capsule 8h Dec, Active Sucralfate 1 GM TAKE ONE TABLET BY MOUTH EVERY 6 HOURS 30 Active Albuterol Sulfate (2.5 MG/3ML) 0.083% Inhalation Three times a day 3 ml 8h Active Plaquenil 200 mg Orally Once a day 1 tablet with food or milk 24h Aug, 90 days Active Nicotine 21 MG/24HR Transdermal Once a day 1 patch to skin 24h Feb, 30 day(s) Active Fish Oil 1200 MG Orally Once a day 1 capsule 24h Active Hydrocodone-Acetaminophen 7.5-325 MG Orally every 6 hours as needed 1 tablet as needed May, Jun, 28 days Active Glucocard Expression Test - In Vitro 4 times a 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 test blood sugar 07 Mar, 2018 Active Metoprolol Tartrate 25 MG TAKE ONE TABLET BY MOUTH TWICE DAILY 30 Active Qnasl 80 MCG/ACT USE TWO SPRAYS IN EACH NOSTRIL ONCE DAILY 30 Active Folic Acid 1 MG TAKE ONE TABLET BY MOUTH ONCE DAILY 90 Active Ventolin HFA 108 (90 Base) MCG/ACT Inhalation every 4 hrs Needs appointment 2 puffs as needed Active Azithromycin 250 MG Orally Once a day 2 tablets on the first day, then 1 tablet daily for 4 days 24h Jun, Jun, 5 day(s) Active Lisinopril 20 MG TAKE ONE TABLET BY MOUTH ONCE DAILY Active Mucinex 600 MG Orally every 12 hrs 1 tablet as needed 12h Mar, July, 30 days Active Protonix 40 mg Orally Once a day 1 tablet 24h Dec, Active Baclofen 10 MG TAKE ONE TABLET BY MOUTH THREE TIMES DAILY WITH FOOD OR MILK 90 Active Nystatin-Triamcinolone 136646-6.1 UNIT/GM Externally Twice a day apply thin layer to irritated abdominal areas 12h 17 Jul, 2015 Not-Taking HydrOXYzine HCl 25 MG Orally every 8 hrs 1 tablet as needed 8h Jun, 30 day(s) Active Citalopram Hydrobromide 20 MG TAKE ONE TABLET BY MOUTH ONCE DAILY 30 Active Cetirizine HCl 10 MG TAKE ONE TABLET BY MOUTH ONCE DAILY 90 Active Depend Adjustable Underwear Lg 1 as directed 3 times a day use one depends three times per day as needed 8h May, 12 months Active RESULTS Name Result Date Reference Range ESR/SED RATE 2017-06-26 SED RATE BY MODIFIED WESTERGR[place] 2 < OR=30 CRP 2017-06-26 C-REACTIVE PROTEIN 11.1 <8.0 RA (RHEUMATOID) FACTOR 2017-06-26 RHEUMATOID FACTOR <14 <14 PROCEDURES Procedure Date Ordered Result Body [facility] June 26, 2017 VENIPUNCT, ROUTINE* June 26, 2017 INSTRUCTIONS MEDICATIONS ADMINISTERED No Known [...] unspecified Medical History Atherosclerotic heart disease of [place] coronary artery without angina pectoris Medical History [...]
--- OUTSIDE RECORDS SUMMARY | 2018-08-23 17:08 | XMS REPORT ---
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 Active 003505470815978 Problem Vitamin D deficiency E55.9 Active 73527972 Problem Hammer toe of left foot M20.42 Active 980407850 Problem Other hammer toe(s) (acquired), left foot M20.42 Active 08327752 Problem Dependence on nocturnal oxygen therapy Z99.81 Active 65494889899379 Problem Tobacco abuse Z72.0 Active 980488585 Problem Other hammer toe(s) (acquired), right foot M20.41 Active 572785281 Problem Gastro-esophageal reflux disease without esophagitis K21.9 Active 811255982 Problem Emphysema, unspecified J43.9 Active 03823959 Problem Hypertension I10 Active 71966668 Problem Hyperlipemia E78.5 Active 04756036 Problem Anxiety associated with depression F41.8 Active 708484239 Problem Chronic pain G89.29 Active 35443094 Problem Type 2 diabetes mellitus with diabetic neuropathy, unspecified E11.40 Active 48914769 Problem OAB (overactive bladder) N32.81 Active 148278303 Problem Allergic rhinitis J30.9 Active 25028100 Problem Rheumatoid arthritis involving multiple sites with positive rheumatoid factor M05.79 Active 238966181 ALLERGIES Substance Reaction Event Type Date Status Sulfamethoxazole-Trimethoprim itching Drug Allergy Jun, Active Singulair dizziness Drug Allergy Jun, Active ENCOUNTERS Encounter Location Date Diagnosis [facility] [address] [facility] [id number] [address] Oct, [place] [address] [id number] [place] [address] Sep, [place] [id number] [place] [address] Sep, Chronic pain G89.29 [place] [address] [address] [id number] [place] [address] Aug, Type 2 diabetes mellitus with diabetic neuropathy, unspecified E11.40 ; Hypertension I10 ; Hyperlipemia E78.5 ; Gastro-esophageal reflux disease without esophagitis K21.9 ; Emphysema, unspecified J43.9 ; Anxiety associated with depression F41.8 ; Vitamin D deficiency E55.9 ; Chronic pain G89.29 ; Tobacco abuse Z72.0 ; Overweight (BMI 25.0-29.9) E66.3 ; 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 ; OAB (overactive bladder) N32.81 and Primary insomnia F51.01 [place] [id number] [place] [address] July, [place] [address] [id number] [place] [address] July, [place] [id number] [place] [address] July, Chronic pain G89.29 [place] [address] [id number] [place] [address] July, [place] [id number] [place] [address] July, Onychomycosis B35.1 ; Hammer toe of left foot M20.42 and Type 2 diabetes mellitus with diabetic neuropathy, unspecified E11.40 [place] [address] [id number] [place] [address] July, [place] [address] [id number] [place] [address] July, Chronic pain G89.29 and Neuropathy G62.9 [facility] [id number] [place] [address] July, [facility] [id number] [place] [address] July, [facility] [id number] [place] [address] Jun, [facility] [id number] [place] [address] Jun, Chronic pain G89.29 [facility] [id number] [place] [address] Jun, [facility] [id number] [place] [address] Jun, [facility] [id number] [place] [address] Jun, Visit for TB skin test Z11.1 [facility] [id number] [place] [address] Jun, [facility] [id number] [place] [address] Jun, [facility] [id number] [place] [address] Jun, Tobacco abuse Z72.0 and Rheumatoid arthritis involving multiple sites with positive rheumatoid factor M05.79 [facility] [id number] [place] [address] Jun, Anxiety F41.9 ; Acute non-recurrent maxillary sinusitis J01.00 and Chronic pain G89.29 [facility] [id number] [place] [address] Jun, [facility] [id number] [place] [address] May, Rheumatoid arthritis involving multiple sites with positive rheumatoid factor M05.79 [place] [address] [address] May, Chronic pain G89.29 [place] [id number] [place] [address] May, [place] [address] [id number] [place] [address] May, [place] [id number] [place] [address] May, [place] [address] [id number] [place] [address] May, Type 2 diabetes mellitus with diabetic neuropathy, unspecified E11.40 [place] [id number] [place] [address] May, Type 2 diabetes mellitus with diabetic neuropathy, unspecified E11.40 ; Emphysema, unspecified J43.9 ; Hypertension I10 ; Hyperlipemia E78.5 ; Vitamin D deficiency E55.9 ; Right medial knee pain M25.561 ; Controlled substance agreement signed Z79.899 ; Chronic pain G89.29 ; Allergic rhinitis J30.9 ; Anxiety associated with depression F41.8 ; Neuropathy G62.9 and Gastro- esophageal reflux disease without esophagitis K21.9 [place] [address] [place] [address] 22 Apr, 2017 Chronic pain G89.29 [place] [id number] [place] [address] 16 Apr, 2017 Other hammer toe(s) (acquired), left foot M20.42 ; Other hammer toe(s) (acquired), right foot M20.41 ; Type 2 diabetes mellitus with diabetic neuropathy, unspecified E11.40 and Onychomycosis B35.1 [place] [address] [place] [address] 2017 Gastro-esophageal reflux disease without esophagitis K21.9 [place] [id number] [place] [address] Apr, Controlled substance agreement signed Z79.899 [place] [address] [address] Mar, Chronic pain G89.29 [facility] [address] [address] Mar, Emphysema, unspecified J43.9 and Type 2 diabetes mellitus with diabetic neuropathy, unspecified E11.40 [facility] [address] [address] Mar, Dysuria R30.0 ; Vaginal candidiasis B37.3 and Acute nonintractable headache, unspecified headache type R51 [place] [address] [address] Feb, Neuropathy G62.9 and Chronic pain G89.29 [place] [address] [address] Feb, Gastro-esophageal reflux disease without esophagitis K21.9 [place] [address] [address] Feb, [place] [address] [address] Feb, Rheumatoid arthritis involving multiple sites with positive rheumatoid factor M05.79 and COPD with acute exacerbation J44.1 [place] [address] [address] Feb, Vaginal odor N89.8 ; Vaginal irritation N89.8 ; Candidal dermatitis B37.2 and Screening breast examination Z12.31 [place] [address] [address] Feb, [place] [address] [address] Feb, [place] [address] [address] Feb, [place] [address] [address] Feb, COPD with exacerbation J44.1 ; Tobacco abuse counseling Z71.6 ; Tobacco abuse Z72.0 ; Rheumatoid arthritis involving multiple sites with positive rheumatoid factor M05.79 and Hyperlipemia E78.5 [place] [address] [address] Feb, [facility] [address] [id number] Jan, [address] [address] Jan, Chronic pain G89.29 [facility] [address] [id number] Jan, Dental examination Z01.20 [facility] [address] [place] [address] Jan, Back pain of lumbar region with sciatica M54.40 [facility] [address] [address] 15 Jan, 2017 Acute bacterial conjunctivitis of both eyes H10.[address] [address] 02 Jan, 2017 Chronic pain G89.29 [place] [address] [address] Dec, Type 2 diabetes mellitus with diabetic neuropathy, unspecified E11.40 ; Hypertension I10 ; Hyperlipemia E78.5 ; Gastro-esophageal reflux disease without esophagitis K21.9 ; Anxiety associated with depression F41.8 ; Allergic rhinitis J30.9 ; Neuropathy G62.9 and Dependence on nocturnal oxygen therapy Z99.81 [place] [address] [address] Dec, [address] [place] [address] Dec, [place] [address] [address] 09 Dec, 2016 Encounter for immunization Z23 [facility] [id number] [place] [address] 05 Dec, 2016 Type 2 diabetes mellitus with diabetic neuropathy, unspecified E11.40 and Chronic pain G89.29 [place] [address] [address] 11 Nov, 2016 Gastro-esophageal reflux disease without esophagitis K21.9 [place] [address] [address] 11 Nov, 2016 Peripheral edema R60.9 and Chest pain in adult R07.9 [place] [address] [address] 07 Nov, 2016 Chronic pain G89.29 [place] [id number] [place] [address] 31 Oct, 2016 [place] [address] [address] 30 Oct, 2016 [facility] [id number] [place] [address] 17 Oct, 2016 Rheumatoid arthritis with rheumatoid factor of right wrist without organ or systems involvement M05.731 [place] [id number] [place] [address] 15 Oct, 2016 [facility] [id number] [place] [address] 14 Oct, 2016 Acute exacerbation of chronic obstructive pulmonary disease (COPD) J44.1 and Canker sore K12.0 [facility] [id number] [place] [address] 14 Oct, 2016 [facility] [id number] [place] [address] Oct, [facility] [address] [place] [address] Oct, Chronic pain G89.29 [facility] [address] [id number] [place] [id number] Oct, Dental examination Z01.20 [facility] [id number] [place] [address] Oct, Dental examination Z01.20 and Periodontitis K05.30 [facility] [address] [id number] [place] [id number] Oct, Dental examination Z01.20 [facility] [id number] [place] [address] Sep, Abscess L02.91 [facility] [id number] [place] [address] Sep, Dental examination Z01.20 [facility] [id number] [place] [address] Sep, [facility] [id number] [place] [id number] Sep, Dental examination Z01.20 and Dental caries K02.9 [facility] [id number] [place] [address] Sep, Primary insomnia F51.01 and Anxiety associated with depression F41.8 [facility] [id number] [place] [address] Sep, Rheumatoid arthritis with rheumatoid factor of right wrist without organ or systems involvement M05.731 [place] [id number] [place] [address] Sep, Chronic pain G89.29 [facility] [id number] [place] [address] Sep, Type 2 diabetes mellitus with diabetic neuropathy, unspecified E11.40 ; Emphysema, unspecified J43.9 ; Gastro-esophageal reflux disease without esophagitis K21.9 ; Hypertension I10 ; Hyperlipemia E78.5 ; Anxiety associated with depression F41.8 ; Chronic pain G89.29 ; Vitamin D deficiency E55.9 and Primary insomnia F51.01 [place] [address] [address] 16 Aug, 2016 Anxiety associated with depression F41.8 [place] [id number] [place] [address] 13 Aug, 2016 Chronic pain G89.29 and Neuropathy G62.9 [place] [id number] [place] [address] Aug, Type 2 diabetes mellitus with diabetic neuropathy, unspecified E11.40 ; Rheumatoid arthritis involving multiple sites with positive rheumatoid factor M05.79 ; Vitamin D deficiency E55.9 ; Anxiety associated with depression F41.8 and Primary insomnia F51.01 [place] [id number] [place] [address] July, Emphysema, unspecified J43.9 [place] [id number] [place] [address] July, Allergic rhinitis J30.9 [place] [id number] [place] [address] July, Allergic rhinitis J30.9 ; Emphysema, unspecified J43.9 and Rheumatoid arthritis with rheumatoid factor of right wrist without organ or systems involvement M05.731 [place] [address] [address] July, Neuropathy G62.9 and Chronic pain G89.29 [place] [id number] [place] [address] July, Rheumatoid arthritis involving multiple sites with positive rheumatoid factor M05.79 [place] [id number] [place] [address] Jun, [place] [address] [place] [address] [place] [address] Jun, Neuropathy G62.9 and Chronic pain G89.29 [place] [address] [address] May, Neuropathy G62.9 and Chronic pain G89.29 [place] [id number] [place] [address] May, [place] [id number] [place] [address] May, [place] [id number] [place] [address] May, Type 2 diabetes mellitus with diabetic [...] system involvement with positive rheumatoid factor M05.732 [place] [id number] [place] [address] Apr, Chronic pain G89.29 [place] [id number] [place] [address] Mar, Gastro-esophageal reflux disease without esophagitis K21.9 [place] [id number] [place] [address] Mar, [place] [id number] [place] [address] Mar, Rheumatoid arthritis with rheumatoid factor of right wrist without organ or systems involvement M05.731 [place] [id number] [place] [address] Mar, Chronic pain G89.29 [place] [id number] [place] [address] 30 Feb, 2016 Hyperlipemia E78.5 [place] [id number] [place] [address] Feb, Abnormal breath sounds R06.89 ; COPD with exacerbation J44.1 and Fatigue, unspecified type R53.83 [place] [address] [address] Feb, Neuropathy G62.9 ; Abnormal lung sounds R09.89 and Bronchitis J40 [facility] [place] [address] [address] Feb, Bronchitis J40 [place] [address] [address] Feb, Chronic pain G89.29 [place] [address] [address] Jan, Type 2 diabetes mellitus with diabetic neuropathy, unspecified E11.40 ; Rheumatoid arthritis with rheumatoid factor of right wrist without organ or systems involvement M05.731 and Hyperlipemia E78.5 [place] [id number] [place] [address] Jan, Rheumatoid arthritis with rheumatoid factor of right wrist without organ or systems involvement M05.731 [place] [id number] [place] [address] Jan, De Quervain's disease (radial styloid tenosynovitis) M65.4 ; Closed nondisplaced fracture of scaphoid of left wrist, unspecified portion of scaphoid, initial encounter S62.002A and Peripheral tear of medial meniscus of left knee, unspecified whether old or current tear, initial encounter S83.222A [place] [id number] [place] [address] Jan, Hypertension I10 ; Type 2 diabetes mellitus with diabetic neuropathy, unspecified E11.40 ; Hyperlipemia E78.5 ; Allergic rhinitis J30.9 ; Neuropathy G62.9 ; Rheumatoid arthritis with rheumatoid factor of right wrist without organ or systems involvement M05.731 ; Acute non-recurrent maxillary sinusitis J01.00 and Chronic pain G89.29 [place] [id number] [place] [address] Dec, [place] [address] [address] Dec, [place] [address] [address] Dec, Type 2 diabetes mellitus with diabetic neuropathy, unspecified E11.40 ; Emphysema, unspecified J43.9 ; Gastro-esophageal reflux disease without esophagitis K21.9 ; Hypertension I10 ; Hyperlipemia E78.5 ; Rheumatoid arthritis with rheumatoid factor of right wrist without organ or systems involvement M05.731 ; Elevated white blood cell count, unspecified D72.829 ; Acute non- recurrent frontal sinusitis J01.10 and Chronic pain G89.29 [place] [id number] [place] [address] Nov, [place] [address] [address] Nov, Elevated white blood cell count, unspecified D72.829 ; Encounter for immunization Z23 ; Rheumatoid arthritis with rheumatoid factor of right wrist without organ or systems involvement M05.731 ; Injury of left hand S69.92XA ; Pain in left knee M25.562 and Other chronic pain G89.29 [place] [id number] [place] [address] Nov, [place] [address] [address] Nov, [place] [id number] [place] [address] Oct, [place] [address] [place] [address] Oct, Hyperlipemia E78.5 [facility] [address] [address] Oct, [facility] [id number] [place] [address] Oct, Type 2 diabetes mellitus with diabetic neuropathy, unspecified E11.40 ; Neuropathy G62.9 ; Hypertension I10 ; Chronic pain G89.29 and Hyperlipemia E78.5 [place] [address] [address] Oct, Emphysema, unspecified J43.9 and Rheumatoid arthritis of left wrist without organ or system involvement with positive rheumatoid factor M05.732 [place] [address] [address] Sep, Chronic pain syndrome G89.4 [place] [address] [address] Sep, [place] [address] [address] Sep, [place] [id number] [place] [address] Sep, Closed nondisplaced fracture of scaphoid of left wrist, unspecified portion of scaphoid, initial encounter S62.002A [place] [address] [address] Sep, Type 2 diabetes mellitus with diabetic neuropathy, unspecified E11.40 ; Hypertension I10 ; Hyperlipemia E78.5 and Acute non-recurrent maxillary sinusitis J01.00 [place] [address] [address] Sep, [place] [id number] [place] [address] Sep, [place] [address] [place] [address] Sep, [facility] [id number] [place] [address] Sep, [facility] [id number] [place] [address] Aug, Epigastric pain R10.13 and Right upper quadrant pain R10.11 [place] [address] [address] Aug, Closed nondisplaced fracture of scaphoid of left wrist, unspecified portion of scaphoid, initial encounter S62.002A [place] [address] [address] Aug, [place] [address] [address] Aug, [facility] [id number] [place] [address] Aug, Shortness of breath R06.02 ; Epigastric pain R10.13 and Injury of left lower arm, initial encounter S59.912A [place] [id number] [place] [address] Aug, Coronary artery disease involving alutiiq heart with angina pectoris, unspecified vessel or lesion type I25.119 ; Pulmonary emphysema, unspecified emphysema type J43.9 and Snoring R06.83 [place] [id number] [place] [address] Aug, [facility] [id number] [place] [address] Aug, Emphysema, unspecified J43.9 ; 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 and Hypertension I10 [place] [id number] [place] [address] July, [place] [address] [address] July, Closed nondisplaced fracture of scaphoid of left wrist, unspecified portion of scaphoid, initial encounter S62.002A [place] [address] [place] [address] July, [place] [address] [place] [address] July, Type 2 diabetes mellitus with diabetic neuropathy, unspecified E11.40 ; Emphysema, unspecified J43.9 ; 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 ; [...] agents L24.89 and Hospital discharge follow-up Z09 [place] [address] [place] [address] July, [place] [id number] [place] [id number] July, Type 2 diabetes mellitus with diabetic neuropathy, unspecified E11.40 [place] [id number] [place] [id number] July, Type 2 diabetes mellitus with diabetic neuropathy, unspecified E11.40 and Rheumatoid arthritis of left wrist without organ or system involvement with positive rheumatoid factor M05.732 [place] [id number] [place] [id number] July, [place] [address] [place] [id number] [place] [id number] July, [place] [address] [id number] [place] [address] Jun, [place] [address] [place] [id number] [place] [address] Jun, [facility] [address], [place] [address] Jun, 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 [facility] [address] [address] Jun, [facility] [address] [address] Jun, 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 [facility] [address], [place] [address] Jun, [place] [id number] [place] [address] Jun, [place] [address] [address] Jun, Encounter for PPD test Z11.1 ; Rheumatoid arthritis with rheumatoid factor of right wrist without organ or systems involvement M05.731 and Rheumatoid arthritis of left wrist without organ or system involvement with positive rheumatoid factor M05.732 [place] [address] [address] Jun, Type 2 diabetes mellitus with diabetic neuropathy, unspecified E11.40 [place] [address] [address] May, Type 2 diabetes mellitus with diabetic neuropathy, unspecified E11.40 ; Emphysema, unspecified J43.9 ; Rheumatoid arthritis with rheumatoid factor of right wrist without organ or systems involvement M05.731 ; Rheumatoid arthritis of left wrist without organ or system involvement with positive rheumatoid factor M05.732 and Chronic pain G89.29 [place] [address], [place] [address] May, [place] [address] [address] May, Swelling of hand joint M25.449 ; Ankle swelling M25.473 and Joint pain M25.50 [place] [address] [place] [id number] [address] May, Emphysema, unspecified J43.9 [place] [address] [place] [id number] [place] [address] May, Gastroenteritis K52.9 and Hypertension I10 [place] [address] [place] [id number] [place] [address] Apr, [place] [address] [address] Apr, [place] [address] [place] [id number] [place] [address] Apr, [place] [address] [place] [id number] [place] [address] Apr, Type 2 diabetes mellitus with diabetic neuropathy, unspecified E11.40 ; Emphysema, unspecified J43.9 ; 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 ; Migraine without aura, not intractable, with status migrainosus G43.001 ; Gastro-esophageal reflux disease without esophagitis K21.9 ; CAD (coronary artery disease) I25.10 ; Hypertension I10 ; Hyperlipemia E78.5 ; Allergic rhinitis J30.9 ; Neuropathy G62.9 ; Anxiety associated with depression F41.8 and Injury of left hand S69.92XA [place] [address] [place] [address] Apr, [place] [id number] [place] [address] Apr, [place] [id number] [place] [address] Apr, Type 2 diabetes mellitus with diabetic neuropathy, unspecified E11.40 ; Emphysema, unspecified J43.9 ; Essential (primary) hypertension I10 ; 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 ; Gastro-esophageal reflux disease without esophagitis K21.9 ; CAD (coronary artery disease) I25.10 ; Hyperlipemia E78.5 ; Hypertension I10 ; History of solitary pulmonary nodule Z87.898 ; Allergic rhinitis J30.9 ; Chronic pain G89.29 and Depression with anxiety F41.8 [place] [address] [address] Mar, [place] [address] [address] Mar, Allergic rhinitis J30.9 ; URI (upper respiratory infection) J06.9 and Other viral agents as the cause of diseases classified elsewhere B97.89 [facility] [address] [address] Feb, Acute nasopharyngitis [common cold] J00 and Acute diarrhea R19.[address] [address] 17 Feb, 2015 Depression F32.[address] [address] Jan, Otitis media, right H66.[address] [address] Jan, [place] [address] [address] Jan, Type 2 diabetes mellitus with diabetic neuropathy, unspecified E11.40 [place] [address] [address] Jan, [place] [address] [address] Jan, Hyperlipemia E78.5 [place] [address] [address] 03 Jan, 2015 Type 2 diabetes mellitus with diabetic neuropathy, unspecified E11.40 ; Emphysema, unspecified J43.9 ; CAD (coronary artery disease) I25.10 and Hyperlipemia E78.5 [place] [address] [address] Dec, Allergic rhinitis J30.9 and Fungal infection B49 [place] [address] [address] Dec, [place] [address] [address] Dec, [place] [address] [address] Dec, Chest pain R07.9 ; CAD (coronary artery disease) I25.10 ; Hypertension I10 and Hyperlipemia E78.5 [place] [address] [address] Dec, Pain in thoracic spine M54.6 ; Gastro-esophageal reflux disease without esophagitis K21.9 ; Emphysema, unspecified J43.9 and Migraine without aura, not intractable, with status migrainosus G43.001 [place] [address] [address] Dec, [place] [address] [address] Nov, Influenza vaccine administered V04.81 [place] [address] [address] Nov, [place] [address] [address] Sep, [place] [address] [address] Sep, [place] [address] [address] Sep, CAD (coronary artery disease) 414.00 and Diabetes type 2, uncontrolled 250.02 [place] [address] [address] Sep, CAD (coronary artery disease) 414.00 ; Diabetes type 2, uncontrolled 250.02 and Migraine 346.90 IMMUNIZATIONS No Known Immunizations SOCIAL HISTORY Never Assessed REASON FOR VISIT anxiety--tcuppettRN, Buspirone is not helping and anxiety is worsening PLAN OF CARE Activity Details Follow Up 3 Months, prn Reason:CHM/ VITAL SIGNS Height 66 in 2017-06-23 Weight 182.5 lbs 2017-06-23 Temperature 98.2 degrees Fahrenheit 2017-06-23 Heart Rate 76 bpm 2017-06-23 Respiratory Rate 20 2017-06-23 BMI 29.45 kg/m2 2017-06-23 Blood pressure systolic 128 mmHg 2017-06-23 Blood pressure diastolic 70 mmHg 2017-06-23 MEDICATIONS Medication Instructions Dosage Frequency Start Date End Date Duration Status Victoza 18 MG/3ML INJECT 1.8 MG SUBCUTANEOUSLY ONCE DAILY 30 Active Nystatin-Triamcinolone 072882-4.1 UNIT/GM Externally Twice a day apply thin layer to irritated abdominal areas 12h 17 Jul, 2015 Not-Taking Depend Adjustable Underwear Lg 1 as directed 3 times a day use one depends three times per day as needed 8h May, 12 months Active Metformin HCl 1000 MG TAKE ONE TABLET BY MOUTH TWICE DAILY WITH MEALS Active Easy Touch Pen Dennis 32G X 4 MM sq 4 times a day as directed 6h Sep, 90 days Active Quad Cane as directed May, Active Symbicort 160-4.5 MCG/ACT Inhalation Twice a day Needs to make an appointment 2 puffs Active Methotrexate 2.5 MG Orally once weekly 10 TABLETS 90 days Active Glucocard Expression Test - In Vitro 4 times a 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 test blood sugar May, Active Aleve 220 MG Orally every 12 hrs 1 tablet 12h Active Qnasl 80 MCG/ACT USE TWO SPRAYS IN EACH NOSTRIL ONCE DAILY 30 Active Albuterol Sulfate (2.5 MG/3ML) 0.083% Inhalation Three times a day 3 ml 8h Active Baclofen 10 MG TAKE ONE TABLET BY MOUTH THREE TIMES DAILY WITH FOOD OR MILK 90 Active Fish Oil 1200 MG Orally Once a day 1 capsule 24h Active Folic Acid 1 MG TAKE ONE TABLET BY MOUTH ONCE DAILY 90 Active Lisinopril 20 MG TAKE ONE TABLET BY MOUTH ONCE DAILY Active Atorvastatin Calcium 10 MG TAKE ONE TABLET BY MOUTH ONCE DAILY Active Lyrica 100 mg Orally Three times a day 1 capsule 8h Dec, Active Ventolin HFA 108 (90 Base) MCG/ACT Inhalation every 4 hrs Needs appointment 2 puffs as needed Active Aspirin Adult Low Strength 81 MG Orally Once a day 1 tablet 24h 90 Active Sucralfate 1 GM TAKE ONE TABLET BY MOUTH EVERY 6 HOURS Active Plaquenil 200 mg Orally Once a day 1 tablet with food or milk 24h Aug, 90 days Active Oxygen Active Citalopram Hydrobromide 20 MG TAKE ONE TABLET BY MOUTH ONCE DAILY Active Protonix 40 mg Orally Once a day 1 tablet 24h Dec, Active Nicotine 21 MG/24HR Transdermal Once a day 1 patch to skin 24h Feb, 30 day(s) Active Cetirizine HCl 10 Orally Once a day TAKE 1 TABLET BY MOUTH DAILY 24h Active Metoprolol Tartrate 25 MG TAKE ONE TABLET BY MOUTH TWICE DAILY Active Azithromycin 250 MG Orally Once a day 2 tablets on the first day, then 1 tablet daily for 4 days 24h Jun, Jun, 5 day(s) Active Hydrocodone-Acetaminophen 7.5-325 MG Orally every 6 hours as needed 1 tablet as needed May, Jun, 28 days Active Trazodone HCl 50 MG TAKE ONE TABLET BY MOUTH ONCE DAILY AT BEDTIME NEEDED 30 Active Blood Glucose Monitor System w/Device as directed July, Active HydrOXYzine HCl 25 MG Orally every 8 hrs 1 tablet as needed 8h Jun, 30 day(s) Active Mucinex 600 MG Orally every 12 hrs 1 tablet as needed 12h Mar, July, 30 days Active RESULTS No Results PROCEDURES No Known procedures INSTRUCTIONS MEDICATIONS ADMINISTERED No Known Medications MEDICAL (GENERAL) HISTORY Type Description Date Medical History COPD Medical History Type 2 Diabetes Medical History HTN Medical History Cardiac stents July 2010 post PA-stent to LAD Medical History Rheumatoid Arthritis Medical History 04/2016---Echo- 60%//mild hypertrophy at the base of the septum, mild mitral regurg/ mild tricuspid regurg. PAP about 10-15 mmHg Medical History 04/2016------Normal Lexiscan Medical History Elevated white blood cell count, unspecified Medical History Atherosclerotic heart disease of alutiiq coronary artery without angina pectoris Medical History [...]
--- OUTSIDE RECORDS SUMMARY | 2018-08-23 17:09 | XMS REPORT ---
Author Author DELEONROB MoranELE [facility] Address [address] [place] [address] Care Team Providers Care Supervisor Microwave Name Role Phone DELEONCLAU Moran Unavailable PROBLEMS Type Condition ICD9-CM Code [id number] Code Onset Dates Condition Status SNOMED Code Problem Primary insomnia F51.01 Active 5658673 Problem Neuropathy G62.9 Active 460870050 Problem Periodontitis K05.30 Active 52061997 Problem Atherosclerotic heart disease of [place] coronary artery without angina pectoris I25.10 Active 025604525123004 Problem Vitamin D deficiency E55.9 Active 50007546 Problem Hammer toe of left foot M20.42 Active 391873990 Problem Other hammer toe(s) (acquired), left foot M20.42 Active 29135110 Problem Dependence on nocturnal oxygen therapy Z99.81 Active 39111209112780 Problem Tobacco abuse Z72.0 Active 757523979 Problem Other hammer toe(s) (acquired), right foot M20.41 Active 912755319 Problem Gastro-esophageal reflux disease without esophagitis K21.9 Active 198305511 Problem Emphysema, unspecified J43.9 Active 99654882 Problem Hypertension I10 Active 47223999 Problem Hyperlipemia E78.5 Active 59578375 Problem Anxiety associated with depression F41.8 Active 822417150 Problem Chronic pain G89.29 Active 22372953 Problem Type 2 diabetes mellitus with diabetic neuropathy, unspecified E11.40 Active 35190023 Problem OAB (overactive bladder) N32.81 Active 704023538 Problem Allergic rhinitis J30.9 Active 45212112 Problem Rheumatoid arthritis involving multiple sites with positive rheumatoid factor M05.79 Active 803016943 ALLERGIES No Information ENCOUNTERS Encounter Location Date Diagnosis [facility] [address] [facility] [id number] [address] Oct, [facility] [address] [facility] [id number] [place] [address] Sep, [facility] [address] [place] [id number] [place] [address] Sep, Chronic pain G89.29 [place] [address] [place] [id number] [place] [address] Aug, Type 2 diabetes mellitus with diabetic neuropathy, unspecified E11.40 ; Hypertension I10 ; Hyperlipemia E78.5 ; Gastro-esophageal reflux disease without esophagitis K21.9 ; Emphysema, unspecified J43.9 ; Anxiety associated with depression F41.8 ; Vitamin D deficiency E55.9 ; Chronic pain G89.29 ; Tobacco abuse Z72.0 ; Overweight (BMI 25.0-29.9) E66.3 ; Atherosclerotic heart disease of [place] coronary artery without angina pectoris I25.10 ; OAB (overactive bladder) N32.81 and Primary insomnia F51.01 [place] [address] [place] [id number] [place] [address] July, [place] [address] [place] [id number] [place] [address] July, [place] [address] [place] [id number] [place] [address] July, Chronic pain G89.29 [place] [address] [place] [id number] [place] [address] July, [place] [address] [place] [id number] [place] [address] July, Onychomycosis B35.1 ; Hammer toe of left foot M20.42 and Type 2 diabetes mellitus with diabetic neuropathy, unspecified E11.40 [place] [address] [place] [id number] [place] [address] July, [place] [address] [place] [id number] [place] [address] July, Chronic pain G89.29 and Neuropathy G62.9 [place] [address] [place] [address] July, [facility] [id number] [place] [address] July, [facility] [id number] [place] [address] Jun, [facility] [address] [address] [id number] [place] [address] Jun, Chronic pain G89.29 [facility] [address] [address] [id number] [place] [address] Jun, [facility] [address] [id number] [place] [address] Jun, [facility] [address] [address] [id number] [place] [address] Jun, Visit for TB skin test Z11.1 [facility] [address] [place] [id number] [place] [address] 16 Jun, 2017 [facility] [id number] [place] [address] Jun, [facility] [address] [place] [address] Jun, Tobacco abuse Z72.0 and Rheumatoid arthritis involving multiple sites with positive rheumatoid factor M05.79 [facility] [address] [place] [address] Jun, Anxiety F41.9 ; Acute non-recurrent maxillary sinusitis J01.00 and Chronic pain G89.29 [facility] [address] [address] Jun, [facility] [address] [address] [id number] [place] [address] May, Rheumatoid arthritis involving multiple sites with positive rheumatoid factor M05.79 [facility] [address] [address] [id number] [place] [address] May, Chronic pain G89.29 [place] [address] [address] May, [facility] [address] [id number] [place] [address] May, [place] [address] [address] [id number] [place] [address] May, [place] [address] [id number] [place] [address] May, Type 2 diabetes mellitus with diabetic neuropathy, unspecified E11.40 [place] [address] [id number] [place] [address] May, Type 2 diabetes mellitus with diabetic neuropathy, unspecified E11.40 ; Emphysema, unspecified J43.9 ; Hypertension I10 ; Hyperlipemia E78.5 ; Vitamin D deficiency E55.9 ; Right medial knee pain M25.561 ; Controlled substance agreement signed Z79.899 ; Chronic pain G89.29 ; Allergic rhinitis J30.9 ; Anxiety associated with depression F41.8 ; Neuropathy G62.9 and Gastro- esophageal reflux disease without esophagitis K21.9 [place] [address] [place] [address] 22 Apr, 2017 Chronic pain G89.29 [place] [address] [place] [address] 16 Apr, 2017 Other hammer toe(s) (acquired), left foot M20.42 ; Other hammer toe(s) (acquired), right foot M20.41 ; Type 2 diabetes mellitus with diabetic neuropathy, unspecified E11.40 and Onychomycosis B35.1 [place] [address] [place] [address] 2017 Gastro-esophageal reflux disease without esophagitis K21.9 [facility] [address] [place] [address] 02 Feb, 2018 Controlled substance agreement signed Z79.899 [facility] [address] [place] [address] Mar, Chronic pain G89.29 [facility] [address] [id number] [place] [address] Mar, Emphysema, unspecified J43.9 and Type 2 diabetes mellitus with diabetic neuropathy, unspecified E11.40 [facility] [address] [address] [id number] [place] [address] Mar, Dysuria R30.0 ; Vaginal candidiasis B37.3 and Acute nonintractable headache, unspecified headache type R51 [place] [address] [address] Feb, Neuropathy G62.9 and Chronic pain G89.29 [place] [address] [address] [id number] [place] [address] Feb, Gastro-esophageal reflux disease without esophagitis K21.9 [facility] [address] [id number] [place] [address] Feb, [place] [address] [address] Feb, Rheumatoid arthritis involving multiple sites with positive rheumatoid factor M05.79 and COPD with acute exacerbation J44.1 [place] [address] [id number] [place] [address] Feb, Vaginal odor N89.8 ; Vaginal irritation N89.8 ; Candidal dermatitis B37.2 and Screening breast examination Z12.31 [place] [address] [id number] [place] [address] Feb, [place] [address] [id number] [place] [address] Feb, [place] [address] [address] [id number] [place] [address] Feb, [place] [address] [place] [address] [place] [address] Feb, COPD with exacerbation J44.1 ; Tobacco abuse counseling Z71.6 ; Tobacco abuse Z72.0 ; Rheumatoid arthritis involving multiple sites with positive rheumatoid factor M05.79 and Hyperlipemia E78.5 [place] [address] [address] Feb, [facility] [address] [id number] Jan, [place] [address] [address] Jan, Chronic pain G89.[address] [id number] Jan, Dental examination Z01.20 [facility] [address] [address] Jan, Back pain of lumbar region with sciatica M54.40 [facility] [address] [place] [address] 15 Jan, 2017 Acute bacterial conjunctivitis of both eyes H10.[address] [address] Jan, Chronic pain G89.[address] [address] Dec, Type 2 diabetes mellitus with diabetic neuropathy, unspecified E11.40 ; Hypertension I10 ; Hyperlipemia E78.5 ; Gastro-esophageal reflux disease without esophagitis K21.9 ; Anxiety associated with depression F41.8 ; Allergic rhinitis J30.9 ; Neuropathy G62.9 and Dependence on nocturnal oxygen therapy Z99.81 [place] [address] [address] Dec, [place] [address] [address] Dec, [place] [address] [address] 09 Dec, 2016 Encounter for immunization Z23 [place] [address] [address] 05 Dec, 2016 Type 2 diabetes mellitus with diabetic neuropathy, unspecified E11.40 and Chronic pain G89.29 [place] [address] [address] 11 Nov, 2016 Gastro-esophageal reflux disease without esophagitis K21.9 [place] [address] [address] 11 Nov, 2016 Peripheral edema R60.9 and Chest pain in adult R07.9 [place] [address] [address] 07 Nov, 2016 Chronic pain G89.29 [place] [address] [address] Oct, [place] [address] [address] 30 Oct, 2016 [place] [address] [address] 17 Oct, 2016 Rheumatoid arthritis with rheumatoid factor of right wrist without organ or systems involvement M05.731 [place] [address] [address] 15 Oct, 2016 [facility] [address] [address] Oct, Acute exacerbation of chronic obstructive pulmonary disease (COPD) J44.1 and Canker sore K12.0 [place] [address] [address] Oct, [facility] [address] [address] Oct, [place] [address] [address] Oct, Chronic pain G89.29 [facility] [address] [place] [id number] Oct, Dental examination Z01.20 [facility] [address] [address] [id number] [place] [address] Oct, Dental examination Z01.20 and Periodontitis K05.30 [facility] [address] [id number] Oct, Dental examination Z01.20 [facility] [address] [address] [id number] [place] [address] Sep, Abscess L02.91 [facility] [address] [address] [id number] [place] [address] Sep, Dental examination Z01.20 [facility] [address] [address] [id number] [place] [address] Sep, [facility] [address] [place] [id number] [place] [id number] Sep, Dental examination Z01.20 and Dental caries K02.9 [facility] [address] [id number] [place] [address] Sep, Primary insomnia F51.01 and Anxiety associated with depression F41.8 [place] [address] [place] [id number] [place] [address] Sep, Rheumatoid arthritis with rheumatoid factor of right wrist without organ or systems involvement M05.731 [place] [address] [place] [id number] [place] [address] Sep, Chronic pain G89.29 [place] [address] [place] [id number] [place] [address] Sep, Type 2 diabetes mellitus with diabetic neuropathy, unspecified E11.40 ; Emphysema, unspecified J43.9 ; Gastro-esophageal reflux disease without esophagitis K21.9 ; Hypertension I10 ; Hyperlipemia E78.5 ; Anxiety associated with depression F41.8 ; Chronic pain G89.29 ; Vitamin D deficiency E55.9 and Primary insomnia F51.01 [place] [address] [place] [id number] [place] [address] 16 Aug, 2016 Anxiety associated with depression F41.8 [facility] [address] [place] [id number] [place] [address] 13 Aug, 2016 Chronic pain G89.29 and Neuropathy G62.9 [place] [address] [address] 13 Aug, 2016 Type 2 diabetes mellitus with diabetic neuropathy, unspecified E11.40 ; Rheumatoid arthritis involving multiple sites with positive rheumatoid factor M05.79 ; Vitamin D deficiency E55.9 ; Anxiety associated with depression F41.8 and Primary insomnia F51.01 [place] [address] [place] [id number] [place] [address] July, Emphysema, unspecified J43.9 [place] [address] [place] [id number] [place] [address] July, Allergic rhinitis J30.9 [facility] [address] [place] [id number] [place] [address] July, Allergic rhinitis J30.9 ; Emphysema, unspecified J43.9 and Rheumatoid arthritis with rheumatoid factor of right wrist without organ or systems involvement M05.731 [place] [address] [place] [id number] [place] [address] July, Neuropathy G62.9 and Chronic pain G89.29 [place] [address] [place] [id number] [place] [address] July, Rheumatoid arthritis involving multiple sites with positive rheumatoid factor M05.79 [facility] [place] [address] [place] [id number] [place] [address] Jun, [place] [address] [place] [id number] [place] [address] Jun, Neuropathy G62.9 and Chronic pain G89.29 [place] [address] [place] [id number] [place] [address] May, Neuropathy G62.9 and Chronic pain G89.29 [place] [address] [place] [id number] [place] [address] May, [place] [address] [place] [id number] [place] [address] May, [place] [address] [place] [id number] [place] [address] May, Type 2 diabetes mellitus with diabetic [...] system involvement with positive rheumatoid factor M05.732 [place] [address] [address] Apr, Chronic pain G89.29 [place] [address] [place] [id number] [place] [address] Mar, Gastro-esophageal reflux disease without esophagitis K21.9 [place] [address] [place] [id number] [place] [address] Mar, [place] [address] [place] [id number] [place] [address] Mar, Rheumatoid arthritis with rheumatoid factor of right wrist without organ or systems involvement M05.731 [place] [address] [place] [id number] [place] [address] Mar, Chronic pain G89.29 [facility] [place] [address] [place] [id number] [place] [address] Feb, Hyperlipemia E78.5 [facility] [place] [address] [place] [id number] [place] [address] Feb, Abnormal breath sounds R06.89 ; COPD with exacerbation J44.1 and Fatigue, unspecified type R53.83 [facility] [place] [address] [place] [id number] [place] [address] Feb, Neuropathy G62.9 ; Abnormal lung sounds R09.89 and Bronchitis J40 [facility] [address] [address] [id number] [place] [address] Feb, Bronchitis J40 [place] [address] [address] Feb, Chronic pain G89.29 [place] [address] [place] [id number] [place] [address] Jan, Type 2 diabetes mellitus with diabetic neuropathy, unspecified E11.40 ; Rheumatoid arthritis with rheumatoid factor of right wrist without organ or systems involvement M05.731 and Hyperlipemia E78.5 [place] [address] [place] [id number] [place] [address] Jan, Rheumatoid arthritis with rheumatoid factor of right wrist without organ or systems involvement M05.731 [place] [address] [place] [id number] [place] [address] Jan, De Quervain's disease (radial styloid tenosynovitis) M65.4 ; Closed nondisplaced fracture of scaphoid of left wrist, unspecified portion of scaphoid, initial encounter S62.002A and Peripheral tear of medial meniscus of left knee, unspecified whether old or current tear, initial encounter S83.222A [place] [address] [place] [address] Jan, Hypertension I10 ; Type 2 diabetes mellitus with diabetic neuropathy, unspecified E11.40 ; Hyperlipemia E78.5 ; Allergic rhinitis J30.9 ; Neuropathy G62.9 ; Rheumatoid arthritis with rheumatoid factor of right wrist without organ or systems involvement M05.731 ; Acute non-recurrent maxillary sinusitis J01.00 and Chronic pain G89.29 [place] [address] [id number] [place] [address] Dec, [place] [address] [place] [id number] [place] [address] Dec, [place] [address] [address] Dec, Type 2 diabetes mellitus with diabetic neuropathy, unspecified E11.40 ; Emphysema, unspecified J43.9 ; Gastro-esophageal reflux disease without esophagitis K21.9 ; Hypertension I10 ; Hyperlipemia E78.5 ; Rheumatoid arthritis with rheumatoid factor of right wrist without organ or systems involvement M05.731 ; Elevated white blood cell count, unspecified D72.829 ; Acute non- recurrent frontal sinusitis J01.10 and Chronic pain G89.29 [place] [address] [address] [id number] [place] [address] Nov, [place] [address] [address] [id number] [place] [address] Nov, Elevated white blood cell count, unspecified D72.829 ; Encounter for immunization Z23 ; Rheumatoid arthritis with rheumatoid factor of right wrist without organ or systems involvement M05.731 ; Injury of left hand S69.92XA ; Pain in left knee M25.562 and Other chronic pain G89.29 [place] [address] [id number] [place] [address] Nov, [place] [address] [address] [id number] [place] [address] Nov, [place] [address] [id number] [place] [address] Oct, [place] [address] [id number] [place] [address] Oct, Hyperlipemia E78.5 [place] [address] [place] [address] Oct, [place] [address] [id number] [place] [address] Oct, Type 2 diabetes mellitus with diabetic neuropathy, unspecified E11.40 ; Neuropathy G62.9 ; Hypertension I10 ; Chronic pain G89.29 and Hyperlipemia E78.5 [place] [address] [address] [address] [place] [address] Oct, Emphysema, unspecified J43.9 and Rheumatoid arthritis of left wrist without organ or system involvement with positive rheumatoid factor M05.732 [place] [address] [address] [id number] [place] [address] Sep, Chronic pain syndrome G89.4 [place] [address] [id number] [place] [address] Sep, [place] [address] [place] [id number] [place] [address] Sep, [place] [address] [place] [id number] [place] [address] Sep, Closed nondisplaced fracture of scaphoid of left wrist, unspecified portion of scaphoid, initial encounter S62.002A [place] [address] [address] Sep, Type 2 diabetes mellitus with diabetic neuropathy, unspecified E11.40 ; Hypertension I10 ; Hyperlipemia E78.5 and Acute non-recurrent maxillary sinusitis J01.00 [facility] [address] [address] Sep, [place] [address] [place] [id number] [place] [address] Sep, [place] [address] [place] [address] Sep, [place] [address] [place] [address] Sep, [facility] [address] [place] [address] Aug, Epigastric pain R10.13 and Right upper quadrant pain R10.11 [place] [address] [place] [address] Aug, Closed nondisplaced fracture of scaphoid of left wrist, unspecified portion of scaphoid, initial encounter S62.002A [facility] [address] [id number] [place] [address] Aug, [place] [address] [place] [id number] [place] [address] Aug, [facility] [address] [place] [address] Aug, Shortness of breath R06.02 ; Epigastric pain R10.13 and Injury of left lower arm, initial encounter S59.912A [place] [address] [place] [address] Aug, Coronary artery disease involving [place] heart with angina pectoris, unspecified vessel or lesion type I25.119 ; Pulmonary emphysema, unspecified emphysema type J43.9 and Snoring R06.83 [place] [address] [place] [address] Aug, [place] [address] [place] [address] Aug, Emphysema, unspecified J43.9 ; Atherosclerotic heart disease of [place] coronary artery without angina pectoris I25.10 and Hypertension I10 [place] [address] [place] [address] July, [place] [address] [place] [address] July, Closed nondisplaced fracture of scaphoid of left wrist, unspecified portion of scaphoid, initial encounter S62.002A [place] [address] [address] July, [facility] [address] [address] [id number] [place] [address] July, Type 2 diabetes mellitus with diabetic neuropathy, unspecified E11.40 ; Emphysema, unspecified J43.9 ; Atherosclerotic heart disease of [place] coronary artery without angina pectoris I25.10 ; [...] agents L24.89 and Hospital discharge follow-up Z09 [place] [address] [place] [id number] [place] [phone] July, [place] [address] [place] [id number] [place] [id number] July, Type 2 diabetes mellitus with diabetic neuropathy, unspecified E11.40 [place] [address] [place] [id number] [place] [address] July, Type 2 diabetes mellitus with diabetic neuropathy, unspecified E11.40 and Rheumatoid arthritis of left wrist without organ or system involvement with positive rheumatoid factor M05.732 [place] [address] [address] July, [place] [address] [place] [id number] [place] [phone] July, [place] [address] [place] [id number] [place] [id number] Jun, [place] [id number] [place] [id number] Jun, [place] [address] [place] [id number] [place] [phone] Jun, 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 [place] [id number] [place] [address] Jun, [place] [address] [place] [id number] [place] [address] Jun, 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 [place] [address] [place] [id number] [place] [address] Jun, [place] [address] [place] [id number] [place] [address] Jun, [place] [address] [place] [id number] [place] [address] Jun, Encounter for PPD test Z11.1 ; Rheumatoid arthritis with rheumatoid factor of right wrist without organ or systems involvement M05.731 and Rheumatoid arthritis of left wrist without organ or system involvement with positive rheumatoid factor M05.732 [place] [address] [place] [id number] [place] [address] Jun, Type 2 diabetes mellitus with diabetic neuropathy, unspecified E11.40 [place] [address] [place] [id number] [place] [address] May, Type 2 diabetes mellitus with diabetic neuropathy, unspecified E11.40 ; Emphysema, unspecified J43.9 ; Rheumatoid arthritis with rheumatoid factor of right wrist without organ or systems involvement M05.731 ; Rheumatoid arthritis of left wrist without organ or system involvement with positive rheumatoid factor M05.732 and Chronic pain G89.29 [place] [id number] [place] [address] May, [place] [address] [place] [id number] [place] [address] May, Swelling of hand joint M25.449 ; Ankle swelling M25.473 and Joint pain M25.50 [place] [id number] [place] [address] May, Emphysema, unspecified J43.9 [place] [address] [place] [id number] [place] [address] May, Gastroenteritis K52.9 and Hypertension I10 [place] [address] [place] [id number] [place] [address] Apr, [place] [address] [address] Apr, [place] [address] [address] Apr, [place] [address] [address] Apr, Type 2 diabetes mellitus with diabetic neuropathy, unspecified E11.40 ; Emphysema, unspecified J43.9 ; Atherosclerotic heart disease of [place] coronary artery without angina pectoris I25.10 ; Migraine without aura, not intractable, with status migrainosus G43.001 ; Gastro-esophageal reflux disease without esophagitis K21.9 ; CAD (coronary artery disease) I25.10 ; Hypertension I10 ; Hyperlipemia E78.5 ; Allergic rhinitis J30.9 ; Neuropathy G62.9 ; Anxiety associated with depression F41.8 and Injury of left hand S69.92XA [place] [address] [place] [id number] [place] [address] 16 Apr, 2015 [place] [address] [place] [id number] [place] [address] Apr, [place] [address] [place] [id number] [place] [address] 04 Apr, 2015 Type 2 diabetes mellitus with diabetic neuropathy, unspecified E11.40 ; Emphysema, unspecified J43.9 ; Essential (primary) hypertension I10 ; Atherosclerotic heart disease of [place] coronary artery without angina pectoris I25.10 ; Gastro-esophageal reflux disease without esophagitis K21.9 ; CAD (coronary artery disease) I25.10 ; Hyperlipemia E78.5 ; Hypertension I10 ; History of solitary pulmonary nodule Z87.898 ; Allergic rhinitis J30.9 ; Chronic pain G89.29 and Depression with anxiety F41.8 [place] [address] [address] Mar, [place] [address] [address] Mar, Allergic rhinitis J30.9 ; URI (upper respiratory infection) J06.9 and Other viral agents as the cause of diseases classified elsewhere B97.89 [facility] [address] [address] Feb, Acute nasopharyngitis [common cold] J00 and Acute diarrhea R19.7 [place] [address] [address] Feb, Depression F32.[address] [address] Jan, Otitis media, right H66.91 [place] [address] [address] Jan, [place] [address] [address] Jan, Type 2 diabetes mellitus with diabetic neuropathy, unspecified E11.40 [place] [address] [address] Jan, [place] [address] [address] Jan, Hyperlipemia E78.5 [place] [address] [address] Jan, Type 2 diabetes mellitus with diabetic neuropathy, unspecified E11.40 ; Emphysema, unspecified J43.9 ; CAD (coronary artery disease) I25.10 and Hyperlipemia E78.5 [place] [address] [address] Dec, Allergic rhinitis J30.9 and Fungal infection B49 [place] [address] [place] [id number] [place] [address] Dec, [address] [address] Dec, [address] [address] Dec, Chest pain R07.9 ; CAD (coronary artery disease) I25.10 ; Hypertension I10 and Hyperlipemia E78.[address] [address] Dec, Pain in thoracic spine M54.6 ; Gastro-esophageal reflux disease without esophagitis K21.9 ; Emphysema, unspecified J43.9 and Migraine without aura, not intractable, with status migrainosus G43.[address] [address] Dec, [place] [address] [address] Nov, Influenza vaccine administered V04.[address] [address] Nov, [address] [address] Sep, [address] [address] Sep, [address] [address] Sep, CAD (coronary artery disease) 414.00 and Diabetes type 2, uncontrolled 250.[address] [address] Sep, CAD (coronary artery disease) 414.00 ; [...] unspecified Medical History Atherosclerotic heart disease of [place] coronary artery without angina pectoris Medical History [...]
--- OUTSIDE RECORDS SUMMARY | 2018-08-23 17:10 | XMS REPORT ---
Author Author JESÚS DURHAM Organization [facility] Address [address] [place] [address] Care Team Providers Care Desk Representative Name Role Phone JESÚS DURHAM Unavailable PROBLEMS Type Condition ICD9-CM Code [id number] Code Onset Dates Condition Status SNOMED Code Problem Primary insomnia F51.01 Active 5229557 Problem Neuropathy G62.9 Active 134259455 Problem Periodontitis K05.30 Active 73424852 Problem Atherosclerotic heart disease of [place] coronary artery without angina pectoris I25.10 Active 786993742787781 Problem Vitamin D deficiency E55.9 Active 37299466 Problem Hammer toe of left foot M20.42 Active 093618635 Problem Other hammer toe(s) (acquired), left foot M20.42 Active 76945405 Problem Dependence on nocturnal oxygen therapy Z99.81 Active 19795312176095 Problem Tobacco abuse Z72.0 Active 953699486 Problem Other hammer toe(s) (acquired), right foot M20.41 Active 356539203 Problem Gastro-esophageal reflux disease without esophagitis K21.9 Active 965841811 Problem Emphysema, unspecified J43.9 Active 94029777 Problem Hypertension I10 Active 00039966 Problem Hyperlipemia E78.5 Active 74426738 Problem Anxiety associated with depression F41.8 Active 829957757 Problem Chronic pain G89.29 Active 75602043 Problem Type 2 diabetes mellitus with diabetic neuropathy, unspecified E11.40 Active 04874393 Problem OAB (overactive bladder) N32.81 Active 174216503 Problem Allergic rhinitis J30.9 Active 80959781 Problem Rheumatoid arthritis involving multiple sites with positive rheumatoid factor M05.79 Active 462013368 ALLERGIES Substance Reaction Event Type Date Status Sulfamethoxazole-Trimethoprim itching Drug Allergy Apr, Active Singulair dizziness Drug Allergy Apr, Active ENCOUNTERS Encounter Location Date Diagnosis [facility] [address] [facility] [id number] [address] Oct, [place] [id number] [place] [address] Sep, [place] [id number] [place] [address] Sep, Chronic pain G89.29 [place] [id number] [place] [address] Aug, Type 2 diabetes mellitus with diabetic neuropathy, unspecified E11.40 ; Hypertension I10 ; Hyperlipemia E78.5 ; Gastro-esophageal reflux disease without esophagitis K21.9 ; Emphysema, unspecified J43.9 ; Anxiety associated with depression F41.8 ; Vitamin D deficiency E55.9 ; Chronic pain G89.29 ; Tobacco abuse Z72.0 ; Overweight (BMI 25.0-29.9) E66.3 ; Atherosclerotic heart disease of [place] coronary artery without angina pectoris I25.10 ; OAB (overactive bladder) N32.81 and Primary insomnia F51.01 [place] [id number] [place] [address] July, [place] [id number] [place] [address] July, [place] [id number] [place] [address] July, Chronic pain G89.29 [place] [id number] [place] [address] July, [place] [id number] [place] [address] July, Onychomycosis B35.1 ; Hammer toe of left foot M20.42 and Type 2 diabetes mellitus with diabetic neuropathy, unspecified E11.40 [place] [address] [address] July, [place] [address] [id number] [place] [address] July, Chronic pain G89.29 and Neuropathy G62.9 [facility] [id number] [place] [address] July, [facility] [id number] [place] [address] July, [facility] [id number] [place] [address] Jun, [facility] [id number] [place] [address] Jun, Chronic pain G89.29 [facility] [id number] [place] [address] Jun, [facility] [id number] [place] [address] Jun, [facility] [id number] [place] [address] Jun, Visit for TB skin test Z11.1 [facility] [id number] [place] [address] Jun, [facility] [id number] [place] [address] Jun, [facility] [id number] [place] [address] Jun, Tobacco abuse Z72.0 and Rheumatoid arthritis involving multiple sites with positive rheumatoid factor M05.79 [facility] [address] [place] [address] Jun, Anxiety F41.9 ; Acute non-recurrent maxillary sinusitis J01.00 and Chronic pain G89.29 [facility] [address] [place] [address] Jun, [facility] [address] [place] [address] May, Rheumatoid arthritis involving multiple sites with positive rheumatoid factor M05.79 [place] [address] [address] May, Chronic pain G89.29 [place] [address] [address] May, [place] [id number] [address] May, [place] [id number] [place] [address] May, [place] [id number] [place] [address] May, Type 2 diabetes mellitus with diabetic neuropathy, unspecified E11.40 [place] [address] [place] [address] May, Type 2 diabetes mellitus with diabetic neuropathy, unspecified E11.40 ; Emphysema, unspecified J43.9 ; Hypertension I10 ; Hyperlipemia E78.5 ; Vitamin D deficiency E55.9 ; Right medial knee pain M25.561 ; Controlled substance agreement signed Z79.899 ; Chronic pain G89.29 ; Allergic rhinitis J30.9 ; Anxiety associated with depression F41.8 ; Neuropathy G62.9 and Gastro- esophageal reflux disease without esophagitis K21.9 [place] [address] [address] 22 Apr, 2017 Chronic pain G89.29 [place] [address] [place] [address] 16 Apr, 2017 Other hammer toe(s) (acquired), left foot M20.42 ; Other hammer toe(s) (acquired), right foot M20.41 ; Type 2 diabetes mellitus with diabetic neuropathy, unspecified E11.40 and Onychomycosis B35.1 [place] [address] [address] 2017 Gastro-esophageal reflux disease without esophagitis K21.9 [place] [id number] [place] [address] Apr, Controlled substance agreement signed Z79.899 [place] [address] [address] Mar, Chronic pain G89.29 [facility] [id number] [place] [address] Mar, Emphysema, unspecified J43.9 and Type 2 diabetes mellitus with diabetic neuropathy, unspecified E11.40 [facility] [id number] [place] [address] Mar, Dysuria R30.0 ; Vaginal candidiasis B37.3 and Acute nonintractable headache, unspecified headache type R51 [place] [id number] [place] [address] Feb, Neuropathy G62.9 and Chronic pain G89.29 [place] [id number] [place] [address] Feb, Gastro-esophageal reflux disease without esophagitis K21.9 [place] [address] [address] Feb, [place] [id number] [place] [address] Feb, Rheumatoid arthritis involving multiple sites with positive rheumatoid factor M05.79 and COPD with acute exacerbation J44.1 [place] [id number] [place] [address] 08 Feb, 2017 Vaginal odor N89.8 ; Vaginal irritation N89.8 ; Candidal dermatitis B37.2 and Screening breast examination Z12.31 [place] [id number] [place] [address] Feb, [place] [address] [address] Feb, [place] [address] [place] [place] [address] Feb, [address] [address] Feb, COPD with exacerbation J44.1 ; Tobacco abuse counseling Z71.6 ; Tobacco abuse Z72.0 ; Rheumatoid arthritis involving multiple sites with positive rheumatoid factor M05.79 and Hyperlipemia E78.[address] [address] Feb, [facility] [address] [id number] Jan, [address] [address] Jan, Chronic pain G89.29 [facility] [address] [place] [id number] Jan, Dental examination Z01.20 [facility] [address] [place] [address] Jan, Back pain of lumbar region with sciatica M54.40 [facility] [address] [address] 15 Jan, 2017 Acute bacterial conjunctivitis of both eyes H10.[address] [address] Jan, Chronic pain G89.[address] [address] Dec, Type 2 diabetes mellitus with diabetic neuropathy, unspecified E11.40 ; Hypertension I10 ; Hyperlipemia E78.5 ; Gastro-esophageal reflux disease without esophagitis K21.9 ; Anxiety associated with depression F41.8 ; Allergic rhinitis J30.9 ; Neuropathy G62.9 and Dependence on nocturnal oxygen therapy Z99.[address] [address] Dec, [id number] [place] [address] 12 Dec, 2016 [place] [address] [address] 09 Dec, 2016 Encounter for immunization Z23 [place] [address] [address] 05 Dec, 2016 Type 2 diabetes mellitus with diabetic neuropathy, unspecified E11.40 and Chronic pain G89.29 [place] [address] [address] 11 Nov, 2016 Gastro-esophageal reflux disease without esophagitis K21.9 [place] [address] [address] 11 Nov, 2016 Peripheral edema R60.9 and Chest pain in adult R07.9 [place] [address] [address] 07 Nov, 2016 Chronic pain G89.29 [place] [address] [address] 31 Oct, 2016 [place] [address] [address] 30 Oct, 2016 [facility] [id number] [place] [address] 17 Oct, 2016 Rheumatoid arthritis with rheumatoid factor of right wrist without organ or systems involvement M05.731 [place] [id number] [place] [address] 15 Oct, 2016 [facility] [id number] [place] [address] 14 Oct, 2016 Acute exacerbation of chronic obstructive pulmonary disease (COPD) J44.1 and Canker sore K12.0 [facility] [id number] [place] [address] 14 Oct, 2016 [facility] [address] [address] Oct, [facility] [address] [place] [address] Oct, Chronic pain G89.29 [facility] [address] [id number] [place] [id number] Oct, Dental examination Z01.20 [facility] [id number] [place] [address] Oct, Dental examination Z01.20 and Periodontitis K05.30 [facility] [id number] [place] [id number] Oct, Dental examination Z01.20 [facility] [id number] [place] [address] Sep, Abscess L02.91 [facility] [address] [id number] [place] [address] Sep, Dental examination Z01.20 [facility] [id number] [place] [address] Sep, [facility] [id number] [place] [id number] Sep, Dental examination Z01.20 and Dental caries K02.9 [facility] [id number] [place] [address] Sep, Primary insomnia F51.01 and Anxiety associated with depression F41.8 [facility] [address] [id number] [place] [address] Sep, Rheumatoid arthritis with rheumatoid factor of right wrist without organ or systems involvement M05.731 [place] [address] [id number] [place] [address] Sep, Chronic pain G89.29 [facility] [address] [id number] [place] [address] Sep, Type 2 diabetes mellitus with diabetic neuropathy, unspecified E11.40 ; Emphysema, unspecified J43.9 ; Gastro-esophageal reflux disease without esophagitis K21.9 ; Hypertension I10 ; Hyperlipemia E78.5 ; Anxiety associated with depression F41.8 ; Chronic pain G89.29 ; Vitamin D deficiency E55.9 and Primary insomnia F51.01 [place] [address] [place] [address] 16 Aug, 2016 Anxiety associated with depression F41.8 [place] [address] [id number] [place] [address] 13 Aug, 2016 Chronic pain G89.29 and Neuropathy G62.9 [place] [id number] [place] [address] Aug, Type 2 diabetes mellitus with diabetic neuropathy, unspecified E11.40 ; Rheumatoid arthritis involving multiple sites with positive rheumatoid factor M05.79 ; Vitamin D deficiency E55.9 ; Anxiety associated with depression F41.8 and Primary insomnia F51.01 [place] [address] [id number] [place] [address] July, Emphysema, unspecified J43.9 [place] [address] [id number] [place] [address] July, Allergic rhinitis J30.9 [place] [address] [place] [address] July, Allergic rhinitis J30.9 ; Emphysema, unspecified J43.9 and Rheumatoid arthritis with rheumatoid factor of right wrist without organ or systems involvement M05.731 [place] [address] [place] [address] July, Neuropathy G62.9 and Chronic pain G89.29 [place] [address] [id number] [place] [address] July, Rheumatoid arthritis involving multiple sites with positive rheumatoid factor M05.79 [place] [address] [place] [address] Jun, [place] [id number] [place] [address] Jun, Neuropathy G62.9 and Chronic pain G89.29 [place] [address] [address] May, Neuropathy G62.9 and Chronic pain G89.29 [place] [address] [address] May, [place] [address] [address] May, [place] [address] [address] May, Type 2 diabetes mellitus with diabetic [...] system involvement with positive rheumatoid factor M05.732 [place] [id number] [place] [address] Apr, Chronic pain G89.29 [place] [id number] [place] [address] Mar, Gastro-esophageal reflux disease without esophagitis K21.9 [place] [id number] [place] [address] Mar, [place] [id number] [place] [address] Mar, Rheumatoid arthritis with rheumatoid factor of right wrist without organ or systems involvement M05.731 [place] [id number] [place] [address] Mar, Chronic pain G89.29 [place] [id number] [place] [address] Feb, Hyperlipemia E78.5 [place] [id number] [place] [address] Feb, Abnormal breath sounds R06.89 ; COPD with exacerbation J44.1 and Fatigue, unspecified type R53.83 [place] [address] [address] Feb, Neuropathy G62.9 ; Abnormal lung sounds R09.89 and Bronchitis J40 [facility] [place] [address] [address] Feb, Bronchitis J40 [place] [address] [address] Feb, Chronic pain G89.29 [place] [address] [address] Jan, Type 2 diabetes mellitus with diabetic neuropathy, unspecified E11.40 ; Rheumatoid arthritis with rheumatoid factor of right wrist without organ or systems involvement M05.731 and Hyperlipemia E78.5 [place] [id number] [place] [address] Jan, Rheumatoid arthritis with rheumatoid factor of right wrist without organ or systems involvement M05.731 [place] [id number] [place] [address] Jan, [place] Quervain's disease (radial styloid tenosynovitis) M65.4 ; Closed nondisplaced fracture of scaphoid of left wrist, unspecified portion of scaphoid, initial encounter S62.002A and Peripheral tear of medial meniscus of left knee, unspecified whether old or current tear, initial encounter S83.222A [place] [id number] [place] [address] 17 Jan, 2016 Hypertension I10 ; Type 2 diabetes mellitus with diabetic neuropathy, unspecified E11.40 ; Hyperlipemia E78.5 ; Allergic rhinitis J30.9 ; Neuropathy G62.9 ; Rheumatoid arthritis with rheumatoid factor of right wrist without organ or systems involvement M05.731 ; Acute non-recurrent maxillary sinusitis J01.00 and Chronic pain G89.29 [place] [id number] [place] [address] Dec, [place] [address] [address] Dec, [place] [id number] [place] [address] Dec, Type 2 diabetes mellitus with diabetic neuropathy, unspecified E11.40 ; Emphysema, unspecified J43.9 ; Gastro-esophageal reflux disease without esophagitis K21.9 ; Hypertension I10 ; Hyperlipemia E78.5 ; Rheumatoid arthritis with rheumatoid factor of right wrist without organ or systems involvement M05.731 ; Elevated white blood cell count, unspecified D72.829 ; Acute non- recurrent frontal sinusitis J01.10 and Chronic pain G89.29 [place] [id number] [place] [address] Nov, [place] [id number] [place] [address] Nov, Elevated white blood cell count, unspecified D72.829 ; Encounter for immunization Z23 ; Rheumatoid arthritis with rheumatoid factor of right wrist without organ or systems involvement M05.731 ; Injury of left hand S69.92XA ; Pain in left knee M25.562 and Other chronic pain G89.29 [place] [id number] [place] [address] Nov, [place] [id number] [place] [address] Nov, [place] [id number] [place] [address] Oct, [place] [address] [place] [id number] [place] [address] Oct, Hyperlipemia E78.5 [place] [id number] [place] [address] Oct, [facility] [id number] [place] [address] Oct, Type 2 diabetes mellitus with diabetic neuropathy, unspecified E11.40 ; Neuropathy G62.9 ; Hypertension I10 ; Chronic pain G89.29 and Hyperlipemia E78.5 [place] [id number] [place] [address] Oct, Emphysema, unspecified J43.9 and Rheumatoid arthritis of left wrist without organ or system involvement with positive rheumatoid factor M05.732 [place] [id number] [place] [address] Sep, Chronic pain syndrome G89.4 [place] [address] [address] Sep, [place] [id number] [place] [address] Sep, [place] [id number] [place] [address] Sep, Closed nondisplaced fracture of scaphoid of left wrist, unspecified portion of scaphoid, initial encounter S62.002A [place] [id number] [place] [address] Sep, Type 2 diabetes mellitus with diabetic neuropathy, unspecified E11.40 ; Hypertension I10 ; Hyperlipemia E78.5 and Acute non-recurrent maxillary sinusitis J01.00 [place] [id number] [place] [address] Sep, [place] [id number] [place] [address] Sep, [place] [address] [place] [address] Sep, [facility] [id number] [place] [address] Sep, [facility] [id number] [place] [address] Aug, Epigastric pain R10.13 and Right upper quadrant pain R10.11 [place] [address] [address] Aug, Closed nondisplaced fracture of scaphoid of left wrist, unspecified portion of scaphoid, initial encounter S62.002A [place] [address] [address] Aug, [place] [address] [address] Aug, [facility] [id number] [place] [address] Aug, Shortness of breath R06.02 ; Epigastric pain R10.13 and Injury of left lower arm, initial encounter S59.912A [place] [id number] [place] [address] Aug, Coronary artery disease involving [place] heart with angina pectoris, unspecified vessel or lesion type I25.119 ; Pulmonary emphysema, unspecified emphysema type J43.9 and Snoring R06.83 [place] [id number] [place] [address] Aug, [facility] [id number] [place] [address] Aug, Emphysema, unspecified J43.9 ; Atherosclerotic heart disease of [place] coronary artery without angina pectoris I25.10 and Hypertension I10 [place] [id number] [place] [address] July, [place] [id number] [place] [address] July, Closed nondisplaced fracture of scaphoid of left wrist, unspecified portion of scaphoid, initial encounter S62.002A [place] [id number] [place] [address] July, [place] [id number] [place] [address] July, Type 2 diabetes mellitus with diabetic neuropathy, unspecified E11.40 ; Emphysema, unspecified J43.9 ; Atherosclerotic heart disease of [place] coronary artery without angina pectoris I25.10 ; [...] agents L24.89 and Hospital discharge follow-up Z09 [place] [id number] [place] [address] July, [place] [id number] [place] [address] July, Type 2 diabetes mellitus with diabetic neuropathy, unspecified E11.40 [place] [id number] [place] [phone] July, Type 2 diabetes mellitus with diabetic neuropathy, unspecified E11.40 and Rheumatoid arthritis of left wrist without organ or system involvement with positive rheumatoid factor M05.732 [place] [id number] [place] [phone] July, [place] [id number] [place] [phone] July[address] [place] [id number] [place] [phone] Jun, [place] [id number] [place] [phone] Jun, [facility] [address] [place] [address] Jun, 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 [facility] [address] [place] [address] Jun, [facility] [address] [address] [place] [address] Jun, 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 [facility] [address], [place] [address] Jun, [place] [id number] [place] [phone] Jun, [place] [address] [place] [address] Jun, Encounter for PPD test Z11.1 ; Rheumatoid arthritis with rheumatoid factor of right wrist without organ or systems involvement M05.731 and Rheumatoid arthritis of left wrist without organ or system involvement with positive rheumatoid factor M05.732 [place] [address], [place] [address] Jun, Type 2 diabetes mellitus with diabetic neuropathy, unspecified E11.40 [place] [address], [place] [address] May, Type 2 diabetes mellitus with diabetic neuropathy, unspecified E11.40 ; Emphysema, unspecified J43.9 ; Rheumatoid arthritis with rheumatoid factor of right wrist without organ or systems involvement M05.731 ; Rheumatoid arthritis of left wrist without organ or system involvement with positive rheumatoid factor M05.732 and Chronic pain G89.29 [place] [address] [place] [address] May, [place] [address] [place] [address] May, Swelling of hand joint M25.449 ; Ankle swelling M25.473 and Joint pain M25.50 [place] [address] [place] [address] May, Emphysema, unspecified J43.9 [place] [address] [address] May, Gastroenteritis K52.9 and Hypertension I10 [place] [address] [place] [id number] [place] [address] Apr, [place] [address] [place] [id number] [place] [address] Apr, [place] [address] [place] [id number] [place] [address] Apr, [place] [address] [place] [id number] [place] [address] Apr, Type 2 diabetes mellitus with diabetic neuropathy, unspecified E11.40 ; Emphysema, unspecified J43.9 ; Atherosclerotic heart disease of [place] coronary artery without angina pectoris I25.10 ; Migraine without aura, not intractable, with status migrainosus G43.001 ; Gastro-esophageal reflux disease without esophagitis K21.9 ; CAD (coronary artery disease) I25.10 ; Hypertension I10 ; Hyperlipemia E78.5 ; Allergic rhinitis J30.9 ; Neuropathy G62.9 ; Anxiety associated with depression F41.8 and Injury of left hand S69.92XA [place] [address] [place] [address] Apr, [place] [address] [place] [address] Apr, [place] [address] [place] [address] Apr, Type 2 diabetes mellitus with diabetic neuropathy, unspecified E11.40 ; Emphysema, unspecified J43.9 ; Essential (primary) hypertension I10 ; Atherosclerotic heart disease of [place] coronary artery without angina pectoris I25.10 ; Gastro-esophageal reflux disease without esophagitis K21.9 ; CAD (coronary artery disease) I25.10 ; Hyperlipemia E78.5 ; Hypertension I10 ; History of solitary pulmonary nodule Z87.898 ; Allergic rhinitis J30.9 ; Chronic pain G89.29 and Depression with anxiety F41.8 [place] [address] [place] [id number] [place] [phone] Mar, [place] [address] [address] Mar, Allergic rhinitis J30.9 ; URI (upper respiratory infection) J06.9 and Other viral agents as the cause of diseases classified elsewhere B97.89 [facility] [address] [address] Feb, Acute nasopharyngitis [common cold] J00 and Acute diarrhea R19.7 [place] [address] [address] Feb, Depression F32.9 [place] [address] [address] Jan, Otitis media, right H66.[address] [address] Jan, [place] [address] [address] Jan, Type 2 diabetes mellitus with diabetic neuropathy, unspecified E11.40 [place] [address] [address] Jan, [place] [address] [address] Jan, Hyperlipemia E78.5 [place] [address] [address] Jan, Type 2 diabetes mellitus with diabetic neuropathy, unspecified E11.40 ; Emphysema, unspecified J43.9 ; CAD (coronary artery disease) I25.10 and Hyperlipemia E78.5 [place] [address] [address] Dec, Allergic rhinitis J30.9 and Fungal infection B49 [place] [address] [address] Dec, [place] [address] [address] Dec, [place] [address] [address] Dec, Chest pain R07.9 ; CAD (coronary artery disease) I25.10 ; Hypertension I10 and Hyperlipemia E78.[address] [address] Dec, Pain in thoracic spine M54.6 ; Gastro-esophageal reflux disease without esophagitis K21.9 ; Emphysema, unspecified J43.9 and Migraine without aura, not intractable, with status migrainosus G43.001 [place] [address] [address] Dec, [place] [address] [address] Nov, Influenza vaccine administered V04.[address] [address] Nov, [place] [address] [address] Sep, [place] [address] [address] Sep, [place] [address] [address] Sep, CAD (coronary artery disease) 414.00 and Diabetes type 2, uncontrolled 250.02 [place] [address] [address] Sep, CAD (coronary artery disease) 414.00 ; Diabetes type 2, uncontrolled 250.02 and Migraine 346.90 IMMUNIZATIONS No Known Immunizations SOCIAL HISTORY Never Assessed REASON FOR VISIT diabetic foot care. Consult Dr. Durham;Roopa RT(R) PLAN OF CARE Activity Details Follow Up prn Reason: VITAL SIGNS Height 66 in 2017-05-05 Blood pressure systolic 114 mmHg 2017-05-05 Blood pressure diastolic 60 mmHg 2017-05-05 MEDICATIONS Medication Instructions Dosage Frequency Start Date End Date Duration Status Hydrocodone-Acetaminophen 7.5-325 MG Orally every 6 hours as needed 1 tablet as needed Mar, 28 days Unknown Oxygen Unknown Nystatin-Triamcinolone 296994-1.1 UNIT/GM Externally Twice a day apply thin layer to irritated abdominal areas 12h July, Unknown Protonix 40 mg Orally Once a day 1 tablet 24h Dec, 90 days Unknown Methotrexate 2.5 MG Orally once weekly 10 TABLETS 90 days Unknown Albuterol Sulfate (2.5 MG/3ML) 0.083% Inhalation Three times a day 3 ml 8h 30 Unknown Baclofen 10 MG TAKE ONE TABLET BY MOUTH THREE TIMES DAILY WITH FOOD OR MILK 90 Unknown Metoprolol Tartrate 25 MG TAKE ONE TABLET BY MOUTH TWICE DAILY 30 Unknown Aspirin Adult Low Strength 81 MG Orally Once a day 1 tablet 24h 90 Unknown Folic Acid 1 MG TAKE ONE TABLET BY MOUTH ONCE DAILY 90 Unknown Aspirin EC Low Dose 81 MG TAKE ONE TABLET BY MOUTH ONCE DAILY 90 Unknown Mucinex 600 MG Orally every 12 hrs 1 tablet as needed 12h Mar, July, 30 days Unknown Lisinopril 20 MG TAKE ONE TABLET BY MOUTH ONCE DAILY 90 Unknown Qnasl 80 MCG/ACT Nasally Once a day 2 puffs in each nostril 24h 30 Unknown Blood Glucose Test Test Strips In Vitro 4 times a day test blood sugar 6h Jun, Unknown Omeprazole 10 MG Orally Once a day - Appt needed in Dec. 2 capsules Unknown Quad Cane as directed May, Unknown Metformin HCl 1000 MG TAKE ONE TABLET BY MOUTH TWICE DAILY WITH MEALS 30 Unknown Aleve 220 MG Orally every 12 hrs 1 tablet 12h Unknown Sucralfate 1 GM TAKE ONE TABLET BY MOUTH EVERY 6 HOURS 30 Unknown Ventolin HFA 108 (90 Base) MCG/ACT Inhalation every 4 hrs Needs appointment 2 puffs as needed 17 Unknown Cetirizine HCl 10 Orally Once a day TAKE 1 TABLET BY MOUTH DAILY 24h Unknown Plaquenil 200 mg Orally Once a day 1 tablet with food or milk 24h 9 Aug, 2018 90 days Unknown Depend Adjustable Underwear Lg 1 as directed 3 times a day use one depends three times per day as needed 8h May, 12 months Unknown Atorvastatin Calcium 10 MG TAKE ONE TABLET BY MOUTH ONCE DAILY 30 Unknown Easy Touch Pen [place] 32G X 4 MM sq 4 times a day as directed 6h Sep, 90 days Unknown Nicotine 21 MG/24HR Transdermal Once a day 1 patch to skin 24h Feb, 30 day(s) Unknown Blood Glucose Monitor System w/Device as directed July, Unknown Citalopram Hydrobromide 20 MG TAKE ONE TABLET BY MOUTH ONCE DAILY 30 Unknown Symbicort 160-4.5 MCG/ACT Inhalation Twice a day Needs to make an appointment 2 puffs 30 Unknown Fish Oil 1200 MG Orally Once a day 1 capsule 24h Unknown Victoza 18 MG/3ML INJECT 1.8 MG SUBCUTANEOUSLY ONCE DAILY 30 Unknown BusPIRone HCl 10 mg Orally TID PRN 1 tablet Dec, 30 days Unknown Lyrica 100 mg Orally Three times a day 1 capsule 8h Dec, 30 days Unknown Diclofenac Sodium 1.5 % Transdermal Four times a day 40 drops to affected area 6h May, 62 days Unknown Trazodone HCl 50 MG TAKE ONE TABLET BY MOUTH ONCE DAILY AT BEDTIME NEEDED 30 Unknown RESULTS No Results PROCEDURES Procedure Date Ordered Result Body Site DEBRIDE NAIL, 6 OR MORE May 05, 2017 INSTRUCTIONS MEDICATIONS ADMINISTERED No Known Medications [...] unspecified Medical History Atherosclerotic heart disease of [place] coronary artery without angina pectoris Medical History [...]
--- OUTSIDE RECORDS SUMMARY | 2018-08-23 17:10 | XMS REPORT ---
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 Active 120700475179650 Problem Vitamin D deficiency E55.9 Active 63882226 Problem Hammer toe of left foot M20.42 Active 394071872 Problem Other hammer toe(s) (acquired), left foot M20.42 Active 03288790 Problem Dependence on nocturnal oxygen therapy Z99.81 Active 10163962470289 Problem Tobacco abuse Z72.0 Active 991292993 Problem Other hammer toe(s) (acquired), right foot M20.41 Active 746426163 Problem Gastro-esophageal reflux disease without esophagitis K21.9 Active 684752948 Problem Emphysema, unspecified J43.9 Active 94776652 Problem Hypertension I10 Active 76952893 Problem Hyperlipemia E78.5 Active 34533406 Problem Anxiety associated with depression F41.8 Active 631410658 Problem Chronic pain G89.29 Active 08937175 Problem Type 2 diabetes mellitus with diabetic neuropathy, unspecified E11.40 Active 27114109 Problem OAB (overactive bladder) N32.81 Active 980361695 Problem Allergic rhinitis J30.9 Active 02803145 Problem Rheumatoid arthritis involving multiple sites with positive rheumatoid factor M05.79 Active 072062805 ALLERGIES Substance Reaction Event Type Date Status Sulfamethoxazole-Trimethoprim itching Drug Allergy May, Active Singulair dizziness Drug Allergy May, Active ENCOUNTERS Encounter Location Date Diagnosis [facility] [address] [facility] [id number] [address] Oct, [place] [id number] [place] [address] Sep, [place] [id number] [place] [address] Sep, Chronic pain G89.29 [place] [id number] [place] [address] Aug, Type 2 diabetes mellitus with diabetic neuropathy, unspecified E11.40 ; Hypertension I10 ; Hyperlipemia E78.5 ; Gastro-esophageal reflux disease without esophagitis K21.9 ; Emphysema, unspecified J43.9 ; Anxiety associated with depression F41.8 ; Vitamin D deficiency E55.9 ; Chronic pain G89.29 ; Tobacco abuse Z72.0 ; Overweight (BMI 25.0-29.9) E66.3 ; 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 ; OAB (overactive bladder) N32.81 and Primary insomnia F51.01 [place] [id number] [place] [address] July, [place] [id number] [place] [address] July, [place] [id number] [place] [address] July, Chronic pain G89.29 [place] [id number] [place] [address] July, [place] [id number] [place] [address] July, Onychomycosis B35.1 ; Hammer toe of left foot M20.42 and Type 2 diabetes mellitus with diabetic neuropathy, unspecified E11.40 [place] [id number] [place] [address] July, [place] [id number] [place] [address] July, Chronic pain G89.29 and Neuropathy G62.9 [facility] [id number] [place] [address] July, [facility] [id number] [place] [address] July, [facility] [id number] [place] [address] Jun, [facility] [id number] [place] [address] Jun, Chronic pain G89.29 [facility] [id number] [place] [address] Jun, [facility] [id number] [place] [address] Jun, [facility] [id number] [place] [address] Jun, Visit for TB skin test Z11.1 [facility] [id number] [place] [address] Jun, [facility] [id number] [place] [address] Jun, [facility] [id number] [place] [address] Jun, Tobacco abuse Z72.0 and Rheumatoid arthritis involving multiple sites with positive rheumatoid factor M05.79 [facility] [id number] [place] [address] Jun, Anxiety F41.9 ; Acute non-recurrent maxillary sinusitis J01.00 and Chronic pain G89.29 [facility] [id number] [place] [address] Jun, [facility] [id number] [place] [address] May, Rheumatoid arthritis involving multiple sites with positive rheumatoid factor M05.79 [place] [address] [address] May, Chronic pain G89.29 [place] [id number] [place] [address] May, [place] [id number] [place] [address] May, [place] [id number] [place] [address] May, [place] [id number] [place] [address] May, Type 2 diabetes mellitus with diabetic neuropathy, unspecified E11.40 [place] [id number] [place] [address] May, Type 2 diabetes mellitus with diabetic neuropathy, unspecified E11.40 ; Emphysema, unspecified J43.9 ; Hypertension I10 ; Hyperlipemia E78.5 ; Vitamin D deficiency E55.9 ; Right medial knee pain M25.561 ; Controlled substance agreement signed Z79.899 ; Chronic pain G89.29 ; Allergic rhinitis J30.9 ; Anxiety associated with depression F41.8 ; Neuropathy G62.9 and Gastro- esophageal reflux disease without esophagitis K21.9 [place] [address] [place] [address] 22 Apr, 2017 Chronic pain G89.29 [place] [id number] [place] [address] 16 Apr, 2017 Other hammer toe(s) (acquired), left foot M20.42 ; Other hammer toe(s) (acquired), right foot M20.41 ; Type 2 diabetes mellitus with diabetic neuropathy, unspecified E11.40 and Onychomycosis B35.1 [place] [address] [place] [address] 2017 Gastro-esophageal reflux disease without esophagitis K21.9 [place] [id number] [place] [address] Apr, Controlled substance agreement signed Z79.899 [place] [address] [address] Mar, Chronic pain G89.29 [facility] [address] [address] Mar, Emphysema, unspecified J43.9 and Type 2 diabetes mellitus with diabetic neuropathy, unspecified E11.40 [facility] [address] [address] Mar, Dysuria R30.0 ; Vaginal candidiasis B37.3 and Acute nonintractable headache, unspecified headache type R51 [place] [address] [address] Feb, Neuropathy G62.9 and Chronic pain G89.29 [place] [address] [address] Feb, Gastro-esophageal reflux disease without esophagitis K21.9 [place] [address] [address] Feb, [place] [address] [address] Feb, Rheumatoid arthritis involving multiple sites with positive rheumatoid factor M05.79 and COPD with acute exacerbation J44.1 [place] [address] [address] Feb, Vaginal odor N89.8 ; Vaginal irritation N89.8 ; Candidal dermatitis B37.2 and Screening breast examination Z12.31 [place] [address] [address] Feb, [place] [address] [address] Feb, [place] [address] [address] Feb, [place] [address] [address] Feb, COPD with exacerbation J44.1 ; Tobacco abuse counseling Z71.6 ; Tobacco abuse Z72.0 ; Rheumatoid arthritis involving multiple sites with positive rheumatoid factor M05.79 and Hyperlipemia E78.5 [place] [address] [address] Feb, [facility] [address] [id number] Jan, [address] [address] Jan, Chronic pain G89.29 [facility] [address] [id number] Jan, Dental examination Z01.[address] [facility] [address] [place] [address] Jan, Back pain of lumbar region with sciatica M54.[address] [facility] [address] [address] 15 Jan, 2017 Acute bacterial conjunctivitis of both eyes H10.[address] [address] 02 Jan, 2017 Chronic pain G89.29 [place] [address] [address] Dec, Type 2 diabetes mellitus with diabetic neuropathy, unspecified E11.40 ; Hypertension I10 ; Hyperlipemia E78.5 ; Gastro-esophageal reflux disease without esophagitis K21.9 ; Anxiety associated with depression F41.8 ; Allergic rhinitis J30.9 ; Neuropathy G62.9 and Dependence on nocturnal oxygen therapy Z99.81 [place] [address] [address] Dec, [address] [place] [address] Dec, [place] [address] [address] 09 Dec, 2016 Encounter for immunization Z23 [facility] [id number] [place] [address] 05 Dec, 2016 Type 2 diabetes mellitus with diabetic neuropathy, unspecified E11.40 and Chronic pain G89.29 [place] [address] [address] 11 Nov, 2016 Gastro-esophageal reflux disease without esophagitis K21.9 [place] [address] [address] 11 Nov, 2016 Peripheral edema R60.9 and Chest pain in adult R07.9 [place] [address] [address] 07 Nov, 2016 Chronic pain G89.29 [place] [id number] [place] [address] 31 Oct, 2016 [place] [address] [address] 30 Oct, 2016 [facility] [id number] [place] [address] 17 Oct, 2016 Rheumatoid arthritis with rheumatoid factor of right wrist without organ or systems involvement M05.731 [place] [id number] [place] [address] 15 Oct, 2016 [facility] [id number] [place] [address] 14 Oct, 2016 Acute exacerbation of chronic obstructive pulmonary disease (COPD) J44.1 and Canker sore K12.0 [facility] [id number] [place] [address] 14 Oct, 2016 [facility] [id number] [place] [address] Oct, [facility] [address] [place] [address] Oct, Chronic pain G89.29 [facility] [id number] [place] [id number] Oct, Dental examination Z01.20 [facility] [id number] [place] [address] Oct, Dental examination Z01.20 and Periodontitis K05.30 [facility] [id number] [place] [id number] Oct, Dental examination Z01.20 [facility] [id number] [place] [address] Sep, Abscess L02.91 [facility] [id number] [place] [address] Sep, Dental examination Z01.20 [facility] [id number] [place] [address] Sep, [facility] [id number] [place] [id number] Sep, Dental examination Z01.20 and Dental caries K02.9 [facility] [id number] [place] [address] Sep, Primary insomnia F51.01 and Anxiety associated with depression F41.8 [facility] [id number] [place] [address] Sep, Rheumatoid arthritis with rheumatoid factor of right wrist without organ or systems involvement M05.731 [place] [id number] [place] [address] Sep, Chronic pain G89.29 [facility] [id number] [place] [address] Sep, Type 2 diabetes mellitus with diabetic neuropathy, unspecified E11.40 ; Emphysema, unspecified J43.9 ; Gastro-esophageal reflux disease without esophagitis K21.9 ; Hypertension I10 ; Hyperlipemia E78.5 ; Anxiety associated with depression F41.8 ; Chronic pain G89.29 ; Vitamin D deficiency E55.9 and Primary insomnia F51.01 [place] [address] [address] 16 Aug, 2016 Anxiety associated with depression F41.8 [place] [id number] [place] [address] 13 Aug, 2016 Chronic pain G89.29 and Neuropathy G62.9 [place] [id number] [place] [address] Aug, Type 2 diabetes mellitus with diabetic neuropathy, unspecified E11.40 ; Rheumatoid arthritis involving multiple sites with positive rheumatoid factor M05.79 ; Vitamin D deficiency E55.9 ; Anxiety associated with depression F41.8 and Primary insomnia F51.01 [place] [id number] [place] [address] July, Emphysema, unspecified J43.9 [place] [id number] [place] [address] July, Allergic rhinitis J30.9 [place] [id number] [place] [address] July, Allergic rhinitis J30.9 ; Emphysema, unspecified J43.9 and Rheumatoid arthritis with rheumatoid factor of right wrist without organ or systems involvement M05.731 [place] [address] [address] July, Neuropathy G62.9 and Chronic pain G89.29 [place] [id number] [place] [address] July, Rheumatoid arthritis involving multiple sites with positive rheumatoid factor M05.79 [place] [id number] [place] [address] Jun, [place] [address] [place] [place] [address] Jun, Neuropathy G62.9 and Chronic pain G89.29 [place] [address] [address] May, Neuropathy G62.9 and Chronic pain G89.29 [place] [id number] [place] [address] May, [place] [id number] [place] [address] May, [place] [id number] [place] [address] May, Type 2 diabetes mellitus with diabetic [...] system involvement with positive rheumatoid factor M05.732 [place] [id number] [place] [address] Apr, Chronic pain G89.29 [place] [id number] [place] [address] Mar, Gastro-esophageal reflux disease without esophagitis K21.9 [place] [id number] [place] [address] Mar, [place] [address] [place] [address] Mar, Rheumatoid arthritis with rheumatoid factor of right wrist without organ or systems involvement M05.731 [place] [address] [place] [address] Mar, Chronic pain G89.29 [place] [id number] [place] [address] 30 Feb, 2016 Hyperlipemia E78.5 [place] [id number] [place] [address] Feb, Abnormal breath sounds R06.89 ; COPD with exacerbation J44.1 and Fatigue, unspecified type R53.83 [place] [address] [address] Feb, Neuropathy G62.9 ; Abnormal lung sounds R09.89 and Bronchitis J40 [facility] [place] [address] [address] Feb, Bronchitis J40 [place] [address] [address] Feb, Chronic pain G89.29 [place] [address] [address] Jan, Type 2 diabetes mellitus with diabetic neuropathy, unspecified E11.40 ; Rheumatoid arthritis with rheumatoid factor of right wrist without organ or systems involvement M05.731 and Hyperlipemia E78.5 [place] [id number] [place] [address] Jan, Rheumatoid arthritis with rheumatoid factor of right wrist without organ or systems involvement M05.731 [place] [address] [place] [address] Jan, De Quervain's disease (radial styloid tenosynovitis) M65.4 ; Closed nondisplaced fracture of scaphoid of left wrist, unspecified portion of scaphoid, initial encounter S62.002A and Peripheral tear of medial meniscus of left knee, unspecified whether old or current tear, initial encounter S83.222A [place] [address] [place] [address] Jan, Hypertension I10 ; Type 2 diabetes mellitus with diabetic neuropathy, unspecified E11.40 ; Hyperlipemia E78.5 ; Allergic rhinitis J30.9 ; Neuropathy G62.9 ; Rheumatoid arthritis with rheumatoid factor of right wrist without organ or systems involvement M05.731 ; Acute non-recurrent maxillary sinusitis J01.00 and Chronic pain G89.29 [place] [id number] [place] [address] Dec, [place] [address] [address] Dec, [place] [address] [address] Dec, Type 2 diabetes mellitus with diabetic neuropathy, unspecified E11.40 ; Emphysema, unspecified J43.9 ; Gastro-esophageal reflux disease without esophagitis K21.9 ; Hypertension I10 ; Hyperlipemia E78.5 ; Rheumatoid arthritis with rheumatoid factor of right wrist without organ or systems involvement M05.731 ; Elevated white blood cell count, unspecified D72.829 ; Acute non- recurrent frontal sinusitis J01.10 and Chronic pain G89.29 [place] [id number] [place] [address] Nov, [place] [address] [address] Nov, Elevated white blood cell count, unspecified D72.829 ; Encounter for immunization Z23 ; Rheumatoid arthritis with rheumatoid factor of right wrist without organ or systems involvement M05.731 ; Injury of left hand S69.92XA ; Pain in left knee M25.562 and Other chronic pain G89.29 [place] [id number] [place] [address] Nov, [place] [address] [address] Nov, [place] [id number] [place] [address] Oct, [place] [address] [place] [address] Oct, Hyperlipemia E78.5 [facility] [address] [address] Oct, [facility] [id number] [place] [address] Oct, Type 2 diabetes mellitus with diabetic neuropathy, unspecified E11.40 ; Neuropathy G62.9 ; Hypertension I10 ; Chronic pain G89.29 and Hyperlipemia E78.5 [place] [address] [address] Oct, Emphysema, unspecified J43.9 and Rheumatoid arthritis of left wrist without organ or system involvement with positive rheumatoid factor M05.732 [place] [address] [address] Sep, Chronic pain syndrome G89.4 [place] [address] [address] Sep, [place] [address] [address] Sep, [place] [id number] [place] [address] Sep, Closed nondisplaced fracture of scaphoid of left wrist, unspecified portion of scaphoid, initial encounter S62.002A [place] [address] [address] Sep, Type 2 diabetes mellitus with diabetic neuropathy, unspecified E11.40 ; Hypertension I10 ; Hyperlipemia E78.5 and Acute non-recurrent maxillary sinusitis J01.00 [place] [address] [address] Sep, [place] [id number] [place] [address] Sep, [place] [address] [place] [address] Sep, [facility] [id number] [place] [address] Sep, [facility] [id number] [place] [address] Aug, Epigastric pain R10.13 and Right upper quadrant pain R10.11 [place] [address] [address] Aug, Closed nondisplaced fracture of scaphoid of left wrist, unspecified portion of scaphoid, initial encounter S62.002A [place] [address] [address] Aug, [place] [address] [address] Aug, [facility] [id number] [place] [address] Aug, Shortness of breath R06.02 ; Epigastric pain R10.13 and Injury of left lower arm, initial encounter S59.912A [place] [id number] [place] [address] Aug, Coronary artery disease involving rampart heart with angina pectoris, unspecified vessel or lesion type I25.119 ; Pulmonary emphysema, unspecified emphysema type J43.9 and Snoring R06.83 [place] [id number] [place] [address] Aug, [facility] [id number] [place] [address] Aug, Emphysema, unspecified J43.9 ; 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 and Hypertension I10 [place] [id number] [place] [address] July, [place] [address] [address] July, Closed nondisplaced fracture of scaphoid of left wrist, unspecified portion of scaphoid, initial encounter S62.002A [place] [address] [place] [address] July, [place] [address] [place] [address] July, Type 2 diabetes mellitus with diabetic neuropathy, unspecified E11.40 ; Emphysema, unspecified J43.9 ; 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 ; [...] agents L24.89 and Hospital discharge follow-up Z09 [place] [address] [place] [address] July, [place] [id number] [place] [address] July, Type 2 diabetes mellitus with diabetic neuropathy, unspecified E11.40 [place] [address] [place] [address] July, Type 2 diabetes mellitus with diabetic neuropathy, unspecified E11.40 and Rheumatoid arthritis of left wrist without organ or system involvement with positive rheumatoid factor M05.732 [place] [address] [place] [address] July, [place] [id number] [place] [address] July, [place] [address] [place] [address] Jun, [place] [id number] [place] [address] Jun, [facility] [address] [address] Jun, 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 [facility] [address] [address] Jun, [facility] [address] [address] Jun, 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 [facility] [address] [address] Jun, [place] [address] [place] [address] Jun, [place] [address] [address] Jun, Encounter for PPD test Z11.1 ; Rheumatoid arthritis with rheumatoid factor of right wrist without organ or systems involvement M05.731 and Rheumatoid arthritis of left wrist without organ or system involvement with positive rheumatoid factor M05.732 [place] [address], [place] [address] Jun, Type 2 diabetes mellitus with diabetic neuropathy, unspecified E11.40 [place] [address], [place] [address] May, Type 2 diabetes mellitus with diabetic neuropathy, unspecified E11.40 ; Emphysema, unspecified J43.9 ; Rheumatoid arthritis with rheumatoid factor of right wrist without organ or systems involvement M05.731 ; Rheumatoid arthritis of left wrist without organ or system involvement with positive rheumatoid factor M05.732 and Chronic pain G89.29 [place] [address], [place] [address] May, [place] [address], [place] [address] May, Swelling of hand joint M25.449 ; Ankle swelling M25.473 and Joint pain M25.50 [place] [id number] [address] May, Emphysema, unspecified J43.9 [place] [address] [place] [id number] [place] [address] May, Hypertension I10 and Gastroenteritis K52.9 [place] [address] [place] [place] [id number] [place] [address] Apr, [place] [address] [address] Apr, [place] [address] [place] [place] [id number] [place] [address] Apr, [place] [address] [place] [id number] [place] [address] Apr, Type 2 diabetes mellitus with diabetic neuropathy, unspecified E11.40 ; Emphysema, unspecified J43.9 ; 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 ; Migraine without aura, not intractable, with status migrainosus G43.001 ; Gastro-esophageal reflux disease without esophagitis K21.9 ; CAD (coronary artery disease) I25.10 ; Hypertension I10 ; Hyperlipemia E78.5 ; Allergic rhinitis J30.9 ; Neuropathy G62.9 ; Anxiety associated with depression F41.8 and Injury of left hand S69.92XA [place] [address] [place] [address] Apr, [place] [address] [place] [address] Apr, [place] [id number] [place] [address] Apr, Type 2 diabetes mellitus with diabetic neuropathy, unspecified E11.40 ; Emphysema, unspecified J43.9 ; Essential (primary) hypertension I10 ; 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 ; Gastro-esophageal reflux disease without esophagitis K21.9 ; CAD (coronary artery disease) I25.10 ; Hyperlipemia E78.5 ; Hypertension I10 ; History of solitary pulmonary nodule Z87.898 ; Allergic rhinitis J30.9 ; Chronic pain G89.29 and Depression with anxiety F41.8 [place] [address] [address] Mar, [place] [address] [address] Mar, Allergic rhinitis J30.9 ; URI (upper respiratory infection) J06.9 and Other viral agents as the cause of diseases classified elsewhere B97.89 [facility] [address] [address] Feb, Acute nasopharyngitis [common cold] J00 and Acute diarrhea R19.[address] [address] 17 Feb, 2015 Depression F32.[address] [address] Jan, Otitis media, right H66.[address] [address] Jan, [place] [address] [address] Jan, Type 2 diabetes mellitus with diabetic neuropathy, unspecified E11.40 [place] [address] [address] Jan, [place] [address] [address] Jan, Hyperlipemia E78.5 [place] [address] [address] 03 Jan, 2015 Type 2 diabetes mellitus with diabetic neuropathy, unspecified E11.40 ; Emphysema, unspecified J43.9 ; CAD (coronary artery disease) I25.10 and Hyperlipemia E78.5 [place] [address] [address] Dec, Allergic rhinitis J30.9 and Fungal infection B49 [place] [address] [address] Dec, [place] [address] [address] Dec, [place] [address] [address] Dec, Chest pain R07.9 ; CAD (coronary artery disease) I25.10 ; Hypertension I10 and Hyperlipemia E78.5 [place] [address] [address] Dec, Pain in thoracic spine M54.6 ; Gastro-esophageal reflux disease without esophagitis K21.9 ; Emphysema, unspecified J43.9 and Migraine without aura, not intractable, with status migrainosus G43.001 [place] [address] [address] Dec, [place] [address] [address] Nov, Influenza vaccine administered V04.81 [place] [address] [address] Nov, [place] [address] [address] Sep, [place] [address] [address] Sep, [place] [address] [address] Sep, CAD (coronary artery disease) 414.00 and Diabetes type 2, uncontrolled 250.02 [place] [address] [address] Sep, CAD (coronary artery disease) 414.00 ; Diabetes type 2, uncontrolled 250.02 and Migraine 346.90 IMMUNIZATIONS No Known Immunizations SOCIAL HISTORY Never Assessed REASON FOR VISIT Right knee injection-AHarrymanRN PLAN OF CARE Activity Details Follow Up prn Reason: VITAL SIGNS Height 66 in 2017-06-12 Weight 183.8 lbs 2017-06-12 Temperature 97.5 degrees Fahrenheit 2017-06-12 Heart Rate 78 bpm 2017-06-12 Respiratory Rate 20 2017-06-12 BMI 29.66 kg/m2 2017-06-12 Blood pressure systolic 112 mmHg 2017-06-12 Blood pressure diastolic 62 mmHg 2017-06-12 MEDICATIONS Medication Instructions Dosage Frequency Start Date End Date Duration Status Nicotine 21 MG/24HR Transdermal Once a day 1 patch to skin 24h Feb, 30 day(s) Active Lyrica 100 mg Orally Three times a day 1 capsule 8h Dec, Active Protonix 40 mg Orally Once a day 1 tablet 24h Dec, Active Ventolin HFA 108 (90 Base) MCG/ACT Inhalation every 4 hrs Needs appointment 2 puffs as needed Active Atorvastatin Calcium 10 MG TAKE ONE TABLET BY MOUTH ONCE DAILY Active Folic Acid 1 MG TAKE ONE TABLET BY MOUTH ONCE DAILY 90 Active Victoza 18 MG/3ML INJECT 1.8 MG SUBCUTANEOUSLY ONCE DAILY 30 Active Nystatin-Triamcinolone 497123-3.1 UNIT/GM Externally Twice a day apply thin layer to irritated abdominal areas 12h July, Not-Taking Qnasl 80 MCG/ACT USE TWO SPRAYS IN EACH NOSTRIL ONCE DAILY 30 Active Glucocard Expression Test - In Vitro 4 times a 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 test blood sugar May, Active Methotrexate 2.5 MG Orally once weekly 10 TABLETS 90 days Active Mucinex 600 MG Orally every 12 hrs 1 tablet as needed 12h Mar, July, 30 days Active Easy Touch Pen Wapwallopen 32G X 4 MM sq 4 times a day as directed 6h Sep, 90 days Active Hydrocodone-Acetaminophen 7.5-325 MG Orally every 6 hours as needed 1 tablet as needed May, Jun, 28 days Active Blood Glucose Monitor System w/Device as directed July, Active Quad Cane as directed May, Active Albuterol Sulfate (2.5 MG/3ML) 0.083% Inhalation Three times a day 3 ml 8h Active Aleve 220 MG Orally every 12 hrs 1 tablet 12h Active Baclofen 10 MG TAKE ONE TABLET BY MOUTH THREE TIMES DAILY WITH FOOD OR MILK 90 Active Depend Adjustable Underwear Lg 1 as directed 3 times a day use one depends three times per day as needed 8h May, 12 months Active Metoprolol Tartrate 25 MG TAKE ONE TABLET BY MOUTH TWICE DAILY Active BusPIRone HCl 10 mg Orally TID PRN 1 tablet Dec, 30 days Active Lisinopril 20 MG TAKE ONE TABLET BY MOUTH ONCE DAILY Active Symbicort 160-4.5 MCG/ACT Inhalation Twice a day Needs to make an appointment 2 puffs Active Citalopram Hydrobromide 20 MG TAKE ONE TABLET BY MOUTH ONCE DAILY Active Cetirizine HCl 10 Orally Once a day TAKE 1 TABLET BY MOUTH DAILY 24h Active Sucralfate 1 GM TAKE ONE TABLET BY MOUTH EVERY 6 HOURS Active Trazodone HCl 50 MG TAKE ONE TABLET BY MOUTH ONCE DAILY AT BEDTIME NEEDED 30 Active Oxygen Active Metformin HCl 1000 MG TAKE ONE TABLET BY MOUTH TWICE DAILY WITH MEALS Active Aspirin Adult Low Strength 81 MG Orally Once a day 1 tablet 24h 90 Active Fish Oil 1200 MG Orally Once a day 1 capsule 24h Active Plaquenil 200 mg Orally Once a day 1 tablet with food or milk 24h Aug, 90 days Active RESULTS No Results PROCEDURES Procedure Date Ordered Result Body Site JOINT INJECTION-LARGE JOINT 2017-06-12 N/A DRAIN/INJECT, JOINT/BURSA June 12, 2017 INSTRUCTIONS MEDICATIONS ADMINISTERED No Known Medications [...] unspecified Medical History 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
--- OUTSIDE RECORDS SUMMARY | 2018-08-23 17:11 | XMS REPORT ---
Author Author KATHERINE CAMARENA [facility] Address [address] [place] [address] Care Team Providers Care Retail Analytics Manager Name Role Phone KATHERINE CAMARENA Unavailable PROBLEMS Type Condition ICD9-CM Code FOE55-PI Code Onset Dates Condition Status SNOMED Code Problem Primary insomnia F51.01 Active 6526862 Problem Neuropathy G62.9 Active 265735184 Problem Periodontitis K05.30 Active 40863825 Problem Atherosclerotic heart disease of [place] coronary artery without angina pectoris I25.10 Active 257121704747229 Problem Vitamin D deficiency E55.9 Active 83085757 Problem Hammer toe of left foot M20.42 Active 305326653 Problem Other hammer toe(s) (acquired), left foot M20.42 Active 94251336 Problem Dependence on nocturnal oxygen therapy Z99.81 Active 87549920129661 Problem Tobacco abuse Z72.0 Active 902779822 Problem Other hammer toe(s) (acquired), right foot M20.41 Active 766060678 Problem Gastro-esophageal reflux disease without esophagitis K21.9 Active 774488916 Problem Emphysema, unspecified J43.9 Active 04247211 Problem Hypertension I10 Active 86032735 Problem Hyperlipemia E78.5 Active 54661377 Problem Anxiety associated with depression F41.8 Active 316859665 Problem Chronic pain G89.29 Active 02824708 Problem Type 2 diabetes mellitus with diabetic neuropathy, unspecified E11.40 Active 98764049 Problem OAB (overactive bladder) N32.81 Active 371275489 Problem Allergic rhinitis J30.9 Active 57947162 Problem Rheumatoid arthritis involving multiple sites with positive rheumatoid factor M05.79 Active 859218674 ALLERGIES No Information ENCOUNTERS Encounter Location Date Diagnosis [facility] [address] [facility] [id number] [address] Oct, [facility] [address] [facility] [id number] [place] [address] Sep, [place] [id number] [place] [address] Sep, Chronic pain G89.29 [facility] [id number] [place] [address] Aug, Type 2 diabetes mellitus with diabetic neuropathy, unspecified E11.40 ; Hypertension I10 ; Hyperlipemia E78.5 ; Gastro-esophageal reflux disease without esophagitis K21.9 ; Emphysema, unspecified J43.9 ; Anxiety associated with depression F41.8 ; Vitamin D deficiency E55.9 ; Chronic pain G89.29 ; Tobacco abuse Z72.0 ; Overweight (BMI 25.0-29.9) E66.3 ; Atherosclerotic heart disease of [place] coronary artery without angina pectoris I25.10 ; OAB (overactive bladder) N32.81 and Primary insomnia F51.01 [place] [id number] [place] [address] July, [place] [id number] [place] [address] July, [place] [id number] [place] [address] July, Chronic pain G89.29 [place] [id number] [place] [address] July, [place] [id number] [place] [address] July, Onychomycosis B35.1 ; Hammer toe of left foot M20.42 and Type 2 diabetes mellitus with diabetic neuropathy, unspecified E11.40 [place] [id number] [place] [address] July, [place] [id number] [place] [address] July, Chronic pain G89.29 and Neuropathy G62.9 [place] [address] [address] [id number] [address] July, [facility] [id number] [place] [address] July, [facility] [id number] [place] [address] Jun, [facility] [id number] [place] [address] Jun, Chronic pain G89.29 [facility] [id number] [place] [address] Jun, [facility] [id number] [place] [address] Jun, [facility] [id number] [place] [address] Jun, Visit for TB skin test Z11.1 [facility] [id number] [place] [address] 16 Jun, 2017 [facility] [id number] [place] [address] Jun, [facility] [id number] [place] [address] Jun, Tobacco abuse Z72.0 and Rheumatoid arthritis involving multiple sites with positive rheumatoid factor M05.79 [facility] [id number] [place] [address] Jun, Anxiety F41.9 ; Acute non-recurrent maxillary sinusitis J01.00 and Chronic pain G89.29 [facility] [address] [address] Jun, [facility] [id number] [place] [address] May, Rheumatoid arthritis involving multiple sites with positive rheumatoid factor M05.79 [facility] [id number] [place] [address] May, Chronic pain G89.29 [place] [address] [address] May, [place] [id number] [place] [address] May, [place] [id number] [place] [address] May, [place] [id number] [place] [address] May, Type 2 diabetes mellitus with diabetic neuropathy, unspecified E11.40 [place] [id number] [place] [address] May, Type 2 diabetes mellitus with diabetic neuropathy, unspecified E11.40 ; Emphysema, unspecified J43.9 ; Hypertension I10 ; Hyperlipemia E78.5 ; Vitamin D deficiency E55.9 ; Right medial knee pain M25.561 ; Controlled substance agreement signed Z79.899 ; Chronic pain G89.29 ; Allergic rhinitis J30.9 ; Anxiety associated with depression F41.8 ; Neuropathy G62.9 and Gastro- esophageal reflux disease without esophagitis K21.9 [place] [address] [place] [address] Apr, Chronic pain G89.29 [place] [id number] [place] [address] 16 Apr, 2017 Other hammer toe(s) (acquired), left foot M20.42 ; Other hammer toe(s) (acquired), right foot M20.41 ; Type 2 diabetes mellitus with diabetic neuropathy, unspecified E11.40 and Onychomycosis B35.1 [place] [id number] [place] [address] 2017 Gastro-esophageal reflux disease without esophagitis K21.9 [place] [address] [place] [address] Apr, Controlled substance agreement signed Z79.899 [facility] [id number] [place] [address] Mar, Chronic pain G89.29 [place] [id number] [place] [address] Mar, Emphysema, unspecified J43.9 and Type 2 diabetes mellitus with diabetic neuropathy, unspecified E11.40 [facility] [id number] [place] [address] Mar, Dysuria R30.0 ; Vaginal candidiasis B37.3 and Acute nonintractable headache, unspecified headache type R51 [place] [address] [address] Feb, Neuropathy G62.9 and Chronic pain G89.29 [place] [address] [address] Feb, Gastro-esophageal reflux disease without esophagitis K21.9 [place] [id number] [place] [address] Feb, [place] [address] [address] Feb, Rheumatoid arthritis involving multiple sites with positive rheumatoid factor M05.79 and COPD with acute exacerbation J44.1 [place] [id number] [place] [address] Feb, Vaginal odor N89.8 ; Vaginal irritation N89.8 ; Candidal dermatitis B37.2 and Screening breast examination Z12.31 [place] [id number] [place] [address] Feb, [place] [address] [address] Feb, [place] [id number] [place] [address] Feb, [place] [id number] [place] [address] Feb, COPD with exacerbation J44.1 ; Tobacco abuse counseling Z71.6 ; Tobacco abuse Z72.0 ; Rheumatoid arthritis involving multiple sites with positive rheumatoid factor M05.79 and Hyperlipemia E78.5 [place] [id number] [place] [address] Feb, [facility] [address] [id number] Jan, [place] [address] [address] Jan, Chronic pain G89.29 [place] [address] [id number] Jan, Dental examination Z01.20 [facility] [address] [place] [address] Jan, Back pain of lumbar region with sciatica M54.40 [facility] [address] [place] [address] Jan, Acute bacterial conjunctivitis of both eyes H10.33 [place] [id number] [place] [address] Jan, Chronic pain G89.29 [place] [id number] [place] [address] Dec, Type 2 diabetes mellitus with diabetic neuropathy, unspecified E11.40 ; Hypertension I10 ; Hyperlipemia E78.5 ; Gastro-esophageal reflux disease without esophagitis K21.9 ; Anxiety associated with depression F41.8 ; Allergic rhinitis J30.9 ; Neuropathy G62.9 and Dependence on nocturnal oxygen therapy Z99.81 [place] [id number] [place] [address] Dec, [place] [address] [address] Dec, [place] [address] [address] 09 Dec, 2016 Encounter for immunization Z23 [facility] [address] [address] 05 Dec, 2016 Type 2 diabetes mellitus with diabetic neuropathy, unspecified E11.40 and Chronic pain G89.29 [place] [address] [address] 11 Nov, 2016 Gastro-esophageal reflux disease without esophagitis K21.9 [place] [address] [address] 11 Nov, 2016 Peripheral edema R60.9 and Chest pain in adult R07.9 [place] [address] [address] 07 Nov, 2016 Chronic pain G89.29 [place] [address] [address] Oct, [place] [address] [address] 30 Oct, 2016 [place] [address] [address] 17 Oct, 2016 Rheumatoid arthritis with rheumatoid factor of right wrist without organ or systems involvement M05.731 [place] [address] [address] 15 Oct, 2016 [facility] [address] [address] Oct, Acute exacerbation of chronic obstructive pulmonary disease (COPD) J44.1 and Canker sore K12.0 [place] [address] [address] Oct, [facility] [address] [address] Oct, [facility] [address] [address] Oct, Chronic pain G89.29 [facility] [id number] [place] [id number] Oct, Dental examination Z01.20 [facility] [id number] [place] [address] Oct, Dental examination Z01.20 and Periodontitis K05.30 [facility] [address] [id number] Oct, Dental examination Z01.20 [facility] [address] [address] Sep, Abscess L02.91 [facility] [address] [address] Sep, Dental examination Z01.20 [facility] [id number] [place] [address] Sep, [facility] [id number] [place] [id number] Sep, Dental examination Z01.20 and Dental caries K02.9 [place] [id number] [place] [address] Sep, Primary insomnia F51.01 and Anxiety associated with depression F41.8 [place] [id number] [place] [address] Sep, Rheumatoid arthritis with rheumatoid factor of right wrist without organ or systems involvement M05.731 [place] [id number] [place] [address] Sep, Chronic pain G89.29 [place] [id number] [place] [address] Sep, Type 2 diabetes mellitus with diabetic neuropathy, unspecified E11.40 ; Emphysema, unspecified J43.9 ; Gastro-esophageal reflux disease without esophagitis K21.9 ; Hypertension I10 ; Hyperlipemia E78.5 ; Anxiety associated with depression F41.8 ; Chronic pain G89.29 ; Vitamin D deficiency E55.9 and Primary insomnia F51.01 [place] [id number] [place] [address] 16 Aug, 2016 Anxiety associated with depression F41.8 [place] [id number] [place] [address] 13 Aug, 2016 Chronic pain G89.29 and Neuropathy G62.9 [place] [id number] [place] [address] Aug, Type 2 diabetes mellitus with diabetic neuropathy, unspecified E11.40 ; Rheumatoid arthritis involving multiple sites with positive rheumatoid factor M05.79 ; Vitamin D deficiency E55.9 ; Anxiety associated with depression F41.8 and Primary insomnia F51.01 [place] [id number] [place] [address] July, Emphysema, unspecified J43.9 [place] [id number] [place] [address] July, Allergic rhinitis J30.9 [place] [id number] [place] [address] July, Allergic rhinitis J30.9 ; Emphysema, unspecified J43.9 and Rheumatoid arthritis with rheumatoid factor of right wrist without organ or systems involvement M05.731 [place] [id number] [place] [address] July, Neuropathy G62.9 and Chronic pain G89.29 [place] [id number] [place] [address] July, Rheumatoid arthritis involving multiple sites with positive rheumatoid factor M05.79 [place] [id number] [place] [address] Jun, [place] [id number] [place] [address] Jun, Neuropathy G62.9 and Chronic pain G89.29 [place] [id number] [place] [address] May, Neuropathy G62.9 and Chronic pain G89.29 [place] [id number] [place] [address] May, [place] [id number] [place] [address] May, [place] [id number] [place] [address] May, Type 2 diabetes mellitus with diabetic [...] system involvement with positive rheumatoid factor M05.732 [place] [id number] [place] [address] Apr, Chronic pain G89.29 [place] [id number] [place] [address] Mar, Gastro-esophageal reflux disease without esophagitis K21.9 [place] [id number] [place] [address] Mar, [place] [id number] [place] [address] Mar, Rheumatoid arthritis with rheumatoid factor of right wrist without organ or systems involvement M05.731 [place] [id number] [place] [address] Mar, Chronic pain G89.29 [place] [id number] [place] [address] Feb, Hyperlipemia E78.5 [place] [id number] [place] [address] Feb, Abnormal breath sounds R06.89 ; COPD with exacerbation J44.1 and Fatigue, unspecified type R53.83 [place] [address] [address] Feb, Neuropathy G62.9 ; Abnormal lung sounds R09.89 and Bronchitis J40 [facility] [address] [address] Feb, Bronchitis J40 [place] [address] [address] Feb, Chronic pain G89.29 [place] [address] [address] Jan, Type 2 diabetes mellitus with diabetic neuropathy, unspecified E11.40 ; Rheumatoid arthritis with rheumatoid factor of right wrist without organ or systems involvement M05.731 and Hyperlipemia E78.5 [place] [address] [address] Jan, Rheumatoid arthritis with rheumatoid factor of right wrist without organ or systems involvement M05.731 [place] [id number] [place] [address] Jan, De Quervain's disease (radial styloid tenosynovitis) M65.4 ; Closed nondisplaced fracture of scaphoid of left wrist, unspecified portion of scaphoid, initial encounter S62.002A and Peripheral tear of medial meniscus of left knee, unspecified whether old or current tear, initial encounter S83.222A [place] [id number] [place] [address] Jan, Hypertension I10 ; Type 2 diabetes mellitus with diabetic neuropathy, unspecified E11.40 ; Hyperlipemia E78.5 ; Allergic rhinitis J30.9 ; Neuropathy G62.9 ; Rheumatoid arthritis with rheumatoid factor of right wrist without organ or systems involvement M05.731 ; Acute non-recurrent maxillary sinusitis J01.00 and Chronic pain G89.29 [place] [id number] [place] [address] Dec, [place] [id number] [place] [address] Dec, [place] [address] [address] Dec, Type 2 diabetes mellitus with diabetic neuropathy, unspecified E11.40 ; Emphysema, unspecified J43.9 ; Gastro-esophageal reflux disease without esophagitis K21.9 ; Hypertension I10 ; Hyperlipemia E78.5 ; Rheumatoid arthritis with rheumatoid factor of right wrist without organ or systems involvement M05.731 ; Elevated white blood cell count, unspecified D72.829 ; Acute non- recurrent frontal sinusitis J01.10 and Chronic pain G89.29 [place] [id number] [place] [address] Nov, [place] [id number] [place] [address] Nov, Elevated white blood cell count, unspecified D72.829 ; Encounter for immunization Z23 ; Rheumatoid arthritis with rheumatoid factor of right wrist without organ or systems involvement M05.731 ; Injury of left hand S69.92XA ; Pain in left knee M25.562 and Other chronic pain G89.29 [place] [id number] [place] [address] Nov, [place] [id number] [place] [address] Nov, [place] [id number] [place] [address] Oct, [place] [id number] [place] [address] Oct, Hyperlipemia E78.5 [place] [address] [address] Oct, [place] [id number] [place] [address] Oct, Type 2 diabetes mellitus with diabetic neuropathy, unspecified E11.40 ; Neuropathy G62.9 ; Hypertension I10 ; Chronic pain G89.29 and Hyperlipemia E78.5 [place] [id number] [place] [address] Oct, Emphysema, unspecified J43.9 and Rheumatoid arthritis of left wrist without organ or system involvement with positive rheumatoid factor M05.732 [place] [id number] [place] [address] Sep, Chronic pain syndrome G89.4 [place] [address] [place] [address] Sep, [place] [id number] [place] [address] Sep, [place] [address] [place] [address] Sep, Closed nondisplaced fracture of scaphoid of left wrist, unspecified portion of scaphoid, initial encounter S62.002A [place] [address] [place] [address] Sep, Type 2 diabetes mellitus with diabetic neuropathy, unspecified E11.40 ; Hypertension I10 ; Hyperlipemia E78.5 and Acute non-recurrent maxillary sinusitis J01.00 [place] [address] [address] Sep, [place] [address] [place] [address] Sep, [place] [address] [place] [address] Sep, [place] [address] [place] [address] Sep, [facility] [id number] [place] [address] Aug, Epigastric pain R10.13 and Right upper quadrant pain R10.11 [place] [id number] [place] [address] Aug, Closed nondisplaced fracture of scaphoid of left wrist, unspecified portion of scaphoid, initial encounter S62.002A [place] [id number] [place] [address] Aug, [place] [id number] [place] [address] Aug, [facility] [id number] [place] [address] Aug, Shortness of breath R06.02 ; Epigastric pain R10.13 and Injury of left lower arm, initial encounter S59.912A [place] [address] [place] [address] Aug, Coronary artery disease involving [place] heart with angina pectoris, unspecified vessel or lesion type I25.119 ; Pulmonary emphysema, unspecified emphysema type J43.9 and Snoring R06.83 [place] [id number] [place] [address] Aug, [place] [id number] [place] [address] Aug, Emphysema, unspecified J43.9 ; Atherosclerotic heart disease of [place] coronary artery without angina pectoris I25.10 and Hypertension I10 [place] [id number] [place] [address] July, [place] [id number] [place] [address] July, Closed nondisplaced fracture of scaphoid of left wrist, unspecified portion of scaphoid, initial encounter S62.002A [place] [id number] [place] [address] July, [place] [id number] [place] [address] July, Type 2 diabetes mellitus with diabetic neuropathy, unspecified E11.40 ; Emphysema, unspecified J43.9 ; Atherosclerotic heart disease of [place] coronary artery without angina pectoris I25.10 [...] agents L24.89 and Hospital discharge follow-up Z09 [place] [id number] [place] [address] July, [place] [id number] [place] [address] July, Type 2 diabetes mellitus with diabetic neuropathy, unspecified E11.40 [place] [id number] [place] [address] July, Type 2 diabetes mellitus with diabetic neuropathy, unspecified E11.40 and Rheumatoid arthritis of left wrist without organ or system involvement with positive rheumatoid factor M05.732 [place] [id number] [place] [address] July, [place] [id number] [place] [address] July, [place] [id number] [place] [address] Jun, [place] [id number] [place] [address] Jun, [place] [id number] [place] [address] Jun, 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 [place] [address] [id number] [place] [id number] Jun, [place] [address] [place] [id number] [place] [id number] Jun, 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 [place] [address] [place] [id number] [place] [phone] Jun, [place] [address] [place] [id number] [place] [phone] Jun, [place] [address] [place] [id number] [place] [phone] Jun, Encounter for PPD test Z11.1 ; Rheumatoid arthritis with rheumatoid factor of right wrist without organ or systems involvement M05.731 and Rheumatoid arthritis of left wrist without organ or system involvement with positive rheumatoid factor M05.732 [place] [id number] [place] [phone] Jun, Type 2 diabetes mellitus with diabetic neuropathy, unspecified E11.40 [place] [address] [place] [id number] [place] [address] May, Type 2 diabetes mellitus with diabetic neuropathy, unspecified E11.40 ; Emphysema, unspecified J43.9 ; Rheumatoid arthritis with rheumatoid factor of right wrist without organ or systems involvement M05.731 ; Rheumatoid arthritis of left wrist without organ or system involvement with positive rheumatoid factor M05.732 and Chronic pain G89.29 [place] [id number] [place] [address] May, [place] [address] [place] [id number] [place] [address] May, Swelling of hand joint M25.449 ; Ankle swelling M25.473 and Joint pain M25.50 [place] [address] [place] [id number] [place] [address] May, Emphysema, unspecified J43.9 [place] [address] [place] [id number] [place] [address] May, Hypertension I10 and Gastroenteritis K52.9 [place] [address] [place] [id number] [place] [phone] Apr, [place] [address] [address] Apr, [place] [address] [address] Apr, [place] [address] [address] Apr, Type 2 diabetes mellitus with diabetic neuropathy, unspecified E11.40 ; Emphysema, unspecified J43.9 ; Atherosclerotic heart disease of [place] coronary artery without angina pectoris I25.10 ; Migraine without aura, not intractable, with status migrainosus G43.001 ; Gastro-esophageal reflux disease without esophagitis K21.9 ; CAD (coronary artery disease) I25.10 ; Hypertension I10 ; Hyperlipemia E78.5 ; Allergic rhinitis J30.9 ; Neuropathy G62.9 ; Anxiety associated with depression F41.8 and Injury of left hand S69.92XA [place] [address] [place] [id number] [place] [phone] 16 Apr, 2015 [place] [address] [place] [id number] [place] [phone] Apr, [place] [address] [place] [id number] [place] [phone] 04 Apr, 2015 Type 2 diabetes mellitus with diabetic neuropathy, unspecified E11.40 ; Emphysema, unspecified J43.9 ; Essential (primary) hypertension I10 ; Atherosclerotic heart disease of [place] coronary artery without angina pectoris I25.10 ; Gastro-esophageal reflux disease without esophagitis K21.9 ; CAD (coronary artery disease) I25.10 ; Hyperlipemia E78.5 ; Hypertension I10 ; History of solitary pulmonary nodule Z87.898 ; Allergic rhinitis J30.9 ; Chronic pain G89.29 and Depression with anxiety F41.8 [place] [address] [place] [id number] [place] [address] Mar, [place] [address] [address] Mar, Allergic rhinitis J30.9 ; URI (upper respiratory infection) J06.9 and Other viral agents as the cause of diseases classified elsewhere B97.89 [facility] [address] [address] Feb, Acute nasopharyngitis [common cold] J00 and Acute diarrhea R19.7 [place] [address] [address] Feb, Depression F32.9 [place] [address] [address] Jan, Otitis media, right H66.91 [place] [address] [address] Jan, [place] [address] [address] Jan, Type 2 diabetes mellitus with diabetic neuropathy, unspecified E11.40 [place] [address] [address] Jan, [place] [address] [address] Jan, Hyperlipemia E78.5 [place] [address] [address] Jan, Type 2 diabetes mellitus with diabetic neuropathy, unspecified E11.40 ; Emphysema, unspecified J43.9 ; CAD (coronary artery disease) I25.10 and Hyperlipemia E78.5 [place] [address] [place] [id number] [place] [address] Dec, Allergic rhinitis J30.9 and Fungal infection B49 [place] [address] [place] [id number] [place] [phone] Dec, [place] [address] [address] Dec, [address] [address] Dec, Chest pain R07.9 ; CAD (coronary artery disease) I25.10 ; Hypertension I10 and Hyperlipemia E78.[address] [address] Dec, Pain in thoracic spine M54.6 ; Gastro-esophageal reflux disease without esophagitis K21.9 ; Emphysema, unspecified J43.9 and Migraine without aura, not intractable, with status migrainosus G43.[address] [address] Dec, [place] [address] [address] Nov, Influenza vaccine administered V04.[address] [address] Nov, [address] [address] Sep, [address] [address] Sep, [address] [address] Sep, CAD (coronary artery disease) 414.00 and Diabetes type 2, uncontrolled 250.[address] [address] Sep, CAD (coronary artery disease) 414.00 ; Diabetes type 2, uncontrolled 250.02 and Migraine 346.90 IMMUNIZATIONS No Known Immunizations SOCIAL HISTORY Never Assessed REASON FOR VISIT Controlled Med Refill PLAN OF CARE VITAL SIGNS MEDICATIONS Medication Instructions Dosage Frequency Start Date End Date Duration Status Hydrocodone-Acetaminophen 7.5-325 MG Orally every 6 hours as needed 1 tablet as needed May, Jun, 28 days Active RESULTS No Results [...] unspecified Medical History Atherosclerotic heart disease of [place] coronary artery without angina pectoris Medical [...]
--- OUTSIDE RECORDS SUMMARY | 2018-08-23 17:12 | XMS REPORT ---
Author Author DELEONROB MoranELE [facility] Address [address] [place] [address] Care Team Providers Care Preparation Supervisor Freezing Name Role Phone DELEONCLAU Moran Unavailable PROBLEMS Type Condition ICD9-CM Code LCH49-IF Code Onset Dates Condition Status SNOMED Code Problem Primary insomnia F51.01 Active 2894917 Problem Neuropathy G62.9 Active 968609158 Problem Periodontitis K05.30 Active 74497182 Problem Atherosclerotic heart disease of [place] coronary artery without angina pectoris I25.10 Active 077017201191492 Problem Vitamin D deficiency E55.9 Active 53727399 Problem Hammer toe of left foot M20.42 Active 239465634 Problem Other hammer toe(s) (acquired), left foot M20.42 Active 48345847 Problem Dependence on nocturnal oxygen therapy Z99.81 Active 47833275963773 Problem Tobacco abuse Z72.0 Active 521582731 Problem Other hammer toe(s) (acquired), right foot M20.41 Active 613384308 Problem Gastro-esophageal reflux disease without esophagitis K21.9 Active 660878166 Problem Emphysema, unspecified J43.9 Active 93350467 Problem Hypertension I10 Active 18919167 Problem Hyperlipemia E78.5 Active 77152941 Problem Anxiety associated with depression F41.8 Active 508267890 Problem Chronic pain G89.29 Active 46593975 Problem Type 2 diabetes mellitus with diabetic neuropathy, unspecified E11.40 Active 07919865 Problem OAB (overactive bladder) N32.81 Active 565214926 Problem Allergic rhinitis J30.9 Active 42424130 Problem Rheumatoid arthritis involving multiple sites with positive rheumatoid factor M05.79 Active 651288642 ALLERGIES No Information ENCOUNTERS Encounter Location Date Diagnosis [facility] [address] [facility] [id number] [address] Oct, [facility] [address] [facility]] [id number] [place] [address] Sep, Chronic pain G89.29 [facility] [address] [id number] [place] [address] 15 Aug, 2017 Type 2 diabetes mellitus with diabetic [...] (overactive bladder) N32.81 and Primary insomnia F51.01 [facility] [address] [id number] [place] [address] July, [place] [address] [address] July, [facility] [address] [id number] [place] [address] July, Chronic pain G89.29 [facility] [address] [address] [id number] [place] [address] July, [facility] [address] [id number] [place] [address] July, Onychomycosis B35.1 ; Hammer toe of left foot M20.42 and Type 2 diabetes mellitus with diabetic neuropathy, unspecified E11.40 [place] [address] [id number] [place] [address] July, [facility] [address] [address] [id number] [place] [address] July, Chronic pain G89.29 and Neuropathy G62.9 [facility] [place] [address] [id number] [place] [address] July, [place] [address] [place] [address] July, [facility] [id number] [place] [address] Jun, [facility] [id number] [place] [address] Jun, Chronic pain G89.29 [facility] [id number] [place] [address] Jun, [facility] [id number] [place] [address] Jun, [facility] [id number] [place] [address] Jun, Visit for TB skin test Z11.1 [facility] [id number] [place] [address] 16 Jun, 2017 [facility] [id number] [place] [address] Jun, [facility] [id number] [place] [address] Jun, Tobacco abuse Z72.0 and Rheumatoid arthritis involving multiple sites with positive rheumatoid factor M05.79 [facility] [id number] [place] [address] Jun, Anxiety F41.9 ; Acute non-recurrent maxillary sinusitis J01.00 and Chronic pain G89.29 [facility] [address] [address] Jun, [facility] [id number] [place] [address] May, Rheumatoid arthritis involving multiple sites with positive rheumatoid factor M05.79 [facility] [id number] [place] [address] May, Chronic pain G89.29 [facility] [id number] [place] [address] May, [place] [address] [address] May, [place] [id number] [place] [address] May, [place] [id number] [place] [address] May, Type 2 diabetes mellitus with diabetic neuropathy, unspecified E11.40 [facility] [address] [address] May, Type 2 diabetes mellitus with diabetic neuropathy, unspecified E11.40 ; Emphysema, unspecified J43.9 ; Hypertension I10 ; Hyperlipemia E78.5 ; Vitamin D deficiency E55.9 ; Right medial knee pain M25.561 ; Controlled substance agreement signed Z79.899 ; Chronic pain G89.29 ; Allergic rhinitis J30.9 ; Anxiety associated with depression F41.8 ; Neuropathy G62.9 and Gastro- esophageal reflux disease without esophagitis K21.9 [place] [address] [address] Apr, Chronic pain G89.29 [facility] [address] [address] [id number] [place] [address] 16 Apr, 2017 Other hammer toe(s) (acquired), left foot M20.42 ; Other hammer toe(s) (acquired), right foot M20.41 ; Type 2 diabetes mellitus with diabetic neuropathy, unspecified E11.40 and Onychomycosis B35.1 [facility] [address] [address] 2017 Gastro-esophageal reflux disease without esophagitis K21.9 [facility] [id number] [place] [address] Apr, Controlled substance agreement signed Z79.899 [place] [address] [address] [id number] [place] [address] Mar, Chronic pain G89.29 [facility] [id number] [place] [address] Mar, Emphysema, unspecified J43.9 and Type 2 diabetes mellitus with diabetic neuropathy, unspecified E11.40 [facility] [id number] [place] [address] Mar, Dysuria R30.0 ; Vaginal candidiasis B37.3 and Acute nonintractable headache, unspecified headache type R51 [facility] [id number] [place] [address] Feb, Neuropathy G62.9 and Chronic pain G89.29 [place] [address] [id number] [place] [address] Feb, Gastro-esophageal reflux disease without esophagitis K21.9 [place] [address] [address] Feb, [place] [address] [address] [id number] [place] [address] Feb, Rheumatoid arthritis involving multiple sites with positive rheumatoid factor M05.79 and COPD with acute exacerbation J44.1 [place] [address] [address] [id number] [place] [address] Feb, Vaginal odor N89.8 ; Vaginal irritation N89.8 ; Candidal dermatitis B37.2 and Screening breast examination Z12.31 [facility] [id number] [place] [address] Feb, [place] [id number] [place] [address] Feb, [place] [address] [address] [id number] [place] [address] Feb, [place] [id number] [place] [address] Feb, COPD with exacerbation J44.1 ; Tobacco abuse counseling Z71.6 ; Tobacco abuse Z72.0 ; Rheumatoid arthritis involving multiple sites with positive rheumatoid factor M05.79 and Hyperlipemia E78.5 [facility] [address] [address] Feb, [facility] [address] [id number] Jan, [facility] [address] [address] Jan, Chronic pain G89.[address] [facility] [address] [id number] Jan, Dental examination Z01.20 [facility] [address] [address] Jan, Back pain of lumbar region with sciatica M54.40 [facility] [address] [address] Jan, Acute bacterial conjunctivitis of both eyes H10.33 [place] [address] [address] Jan, Chronic pain G89.29 [place] [address] [address] Dec, Type 2 diabetes mellitus with diabetic neuropathy, unspecified E11.40 ; Hypertension I10 ; Hyperlipemia E78.5 ; Gastro-esophageal reflux disease without esophagitis K21.9 ; Anxiety associated with depression F41.8 ; Allergic rhinitis J30.9 ; Neuropathy G62.9 and Dependence on nocturnal oxygen therapy Z99.81 [place] [address] [address] Dec, [place] [address] [address] Dec, [place] [address] [address] 09 Dec, 2016 Encounter for immunization Z23 [facility] [address] [address] 05 Dec, 2016 Type 2 diabetes mellitus with diabetic neuropathy, unspecified E11.40 and Chronic pain G89.29 [facility] [address] [address] 11 Nov, 2016 Gastro-esophageal reflux disease without esophagitis K21.9 [facility] [address] [address] 11 Nov, 2016 Peripheral edema R60.9 and Chest pain in adult R07.9 [facility] [address] [address] 07 Nov, 2016 Chronic pain G89.29 [facility] [address] [address] 31 Oct, 2016 [place] [address] [address] 30 Oct, 2016 [facility] [address] [address] 17 Oct, 2016 Rheumatoid arthritis with rheumatoid factor of right wrist without organ or systems involvement M05.731 [facility] [address] [address] 15 Oct, 2016 [facility] [address] [address] Oct, Acute exacerbation of chronic obstructive pulmonary disease (COPD) J44.1 and Canker sore K12.0 [facility] [address] [address] 14 Oct, 2016 [facility] [address] [address] 10 Oct, 2016 [facility] [address] [address] 09 Oct, 2016 Chronic pain G89.[address] [facility] [address] [id number] Oct, Dental examination Z01.20 [facility] [id number] [place] [address] Oct, Dental examination Z01.20 and Periodontitis K05.[address] [facility] [id number] [place] [id number] Oct, Dental examination Z01.20 [facility] [id number] [place] [address] Sep, Abscess L02.91 [facility] [id number] [place] [address] Sep, Dental examination Z01.20 [facility] [id number] [place] [address] Sep, [facility] [address] [id number] [place] [id number] Sep, Dental examination Z01.20 and Dental caries K02.9 [facility] [id number] [place] [address] Sep, Primary insomnia F51.01 and Anxiety associated with depression F41.8 [place] [address] [address] [id number] [place] [address] Sep, Rheumatoid arthritis with rheumatoid factor of right wrist without organ or systems involvement M05.731 [place] [address] [address] [id number] [place] [address] Sep, Chronic pain G89.29 [place] [address] [place] [address] Sep, Type 2 diabetes mellitus with diabetic neuropathy, unspecified E11.40 ; Emphysema, unspecified J43.9 ; Gastro-esophageal reflux disease without esophagitis K21.9 ; Hypertension I10 ; Hyperlipemia E78.5 ; Anxiety associated with depression F41.8 ; Chronic pain G89.29 ; Vitamin D deficiency E55.9 and Primary insomnia F51.01 [place] [id number] [place] [address] 16 Aug, 2016 Anxiety associated with depression F41.8 [facility] [address] [address] [id number] [place] [address] 13 Aug, 2016 Chronic pain G89.29 and Neuropathy G62.9 [facility] [address] [address] [id number] [place] [address] Aug, Type 2 diabetes mellitus with diabetic neuropathy, unspecified E11.40 ; Rheumatoid arthritis involving multiple sites with positive rheumatoid factor M05.79 ; Vitamin D deficiency E55.9 ; Anxiety associated with depression F41.8 and Primary insomnia F51.01 [place] [address] [address] [id number] [place] [address] July, Emphysema, unspecified J43.9 [facility] [address] [id number] [place] [address] July, Allergic rhinitis J30.9 [facility] [address] [id number] [place] [address] July, Allergic rhinitis J30.9 ; Emphysema, unspecified J43.9 and Rheumatoid arthritis with rheumatoid factor of right wrist without organ or systems involvement M05.731 [place] [id number] [place] [address] July, Neuropathy G62.9 and Chronic pain G89.29 [place] [id number] [place] [address] July, Rheumatoid arthritis involving multiple sites with positive rheumatoid factor M05.79 [facility] [id number] [place] [address] Jun, [place] [id number] [place] [address] Jun, Neuropathy G62.9 and Chronic pain G89.29 [facility] [id number] [place] [address] May, Neuropathy G62.9 and Chronic pain G89.29 [facility] [id number] [place] [address] May, [facility] [id number] [place] [address] May, [facility] [id number] [place] [address] May, Type 2 diabetes mellitus with diabetic [...] system involvement with positive rheumatoid factor M05.732 [facility] [place] [id number] [place] [address] Apr, Chronic pain G89.29 [facility] [place] [id number] [place] [address] Mar, Gastro-esophageal reflux disease without esophagitis K21.9 [facility] [id number] [place] [address] Mar, [facility] [id number] [place] [address] Mar, Rheumatoid arthritis with rheumatoid factor of right wrist without organ or systems involvement M05.731 [facility] [place] [id number] [place] [address] Mar, Chronic pain G89.29 [facility] [place] [id number] [place] [address] Feb, Hyperlipemia E78.5 [place] [address] [place] [address] [place] [address] Feb, Abnormal breath sounds R06.89 ; COPD with exacerbation J44.1 and Fatigue, unspecified type R53.83 [place] [id number] [place] [address] Feb, Neuropathy G62.9 ; Abnormal lung sounds R09.89 and Bronchitis J40 [facility] [address] [address] Feb, Bronchitis J40 [place] [address] [address] Feb, Chronic pain G89.29 [place] [address] [address] Jan, Type 2 diabetes mellitus with diabetic neuropathy, unspecified E11.40 ; Rheumatoid arthritis with rheumatoid factor of right wrist without organ or systems involvement M05.731 and Hyperlipemia E78.5 [place] [id number] [place] [address] Jan, Rheumatoid arthritis with rheumatoid factor of right wrist without organ or systems involvement M05.731 [facility] [id number] [place] [address] Jan, De Quervain's disease (radial styloid tenosynovitis) M65.4 ; Closed nondisplaced fracture of scaphoid of left wrist, unspecified portion of scaphoid, initial encounter S62.002A and Peripheral tear of medial meniscus of left knee, unspecified whether old or current tear, initial encounter S83.222A [place] [address] [address] Jan, Hypertension I10 ; Type 2 diabetes mellitus with diabetic neuropathy, unspecified E11.40 ; Hyperlipemia E78.5 ; Allergic rhinitis J30.9 ; Neuropathy G62.9 ; Rheumatoid arthritis with rheumatoid factor of right wrist without organ or systems involvement M05.731 ; Acute non-recurrent maxillary sinusitis J01.00 and Chronic pain G89.29 [place] [id number] [place] [address] Dec, [place] [id number] [place] [address] Dec, [place] [id number] [place] [address] Dec, Type 2 diabetes mellitus with diabetic neuropathy, unspecified E11.40 ; Emphysema, unspecified J43.9 ; Gastro-esophageal reflux disease without esophagitis K21.9 ; Hypertension I10 ; Hyperlipemia E78.5 ; Rheumatoid arthritis with rheumatoid factor of right wrist without organ or systems involvement M05.731 ; Elevated white blood cell count, unspecified D72.829 ; Acute non- recurrent frontal sinusitis J01.10 and Chronic pain G89.29 [place] [id number] [place] [address] Nov, [place] [address] [address] Nov, Elevated white blood cell count, unspecified D72.829 ; Encounter for immunization Z23 ; Rheumatoid arthritis with rheumatoid factor of right wrist without organ or systems involvement M05.731 ; Injury of left hand S69.92XA ; Pain in left knee M25.562 and Other chronic pain G89.29 [place] [id number] [place] [address] Nov, [facility] [id number] [place] [address] Nov, [facility] [id number] [place] [address] Oct, [place] [id number] [place] [address] Oct, Hyperlipemia E78.5 [facility] [id number] [place] [address] Oct, [place] [id number] [place] [address] Oct, Type 2 diabetes mellitus with diabetic neuropathy, unspecified E11.40 ; Neuropathy G62.9 ; Hypertension I10 ; Chronic pain G89.29 and Hyperlipemia E78.5 [facility] [id number] [place] [address] Oct, Emphysema, unspecified J43.9 and Rheumatoid arthritis of left wrist without organ or system involvement with positive rheumatoid factor M05.732 [facility] [id number] [place] [address] Sep, Chronic pain syndrome G89.4 [place] [address] [address] Sep, [place] [id number] [place] [address] Sep, [place] [id number] [place] [address] Sep, Closed nondisplaced fracture of scaphoid of left wrist, unspecified portion of scaphoid, initial encounter S62.002A [place] [id number] [place] [address] Sep, Type 2 diabetes mellitus with diabetic neuropathy, unspecified E11.40 ; Hypertension I10 ; Hyperlipemia E78.5 and Acute non-recurrent maxillary sinusitis J01.00 [place] [id number] [place] [address] Sep, [place] [id number] [place] [address] Sep, [place] [id number] [place] [address] Sep, [place] [id number] [place] [address] Sep, [place] [address] [place] [address] Aug, Epigastric pain R10.13 and Right upper quadrant pain R10.11 [place] [id number] [place] [address] Aug, Closed nondisplaced fracture of scaphoid of left wrist, unspecified portion of scaphoid, initial encounter S62.002A [place] [id number] [place] [address] Aug, [place] [id number] [place] [address] Aug, [facility] [id number] [place] [address] Aug, Shortness of breath R06.02 ; Epigastric pain R10.13 and Injury of left lower arm, initial encounter S59.912A [place] [id number] [place] [address] Aug, Coronary artery disease involving [place] heart with angina pectoris, unspecified vessel or lesion type I25.119 ; Pulmonary emphysema, unspecified emphysema type J43.9 and Snoring R06.83 [place] [id number] [place] [address] Aug, [place] [id number] [place] [address] Aug, Emphysema, unspecified J43.9 ; Atherosclerotic heart disease of [place] coronary artery without angina pectoris I25.10 and Hypertension I10 [place] [id number] [place] [phone] July, [place] [address] [place] [id number] [place], [place] [id number] July, Closed nondisplaced fracture of scaphoid of left wrist, unspecified portion of scaphoid, initial encounter S62.002A [place] [address] [place] [id number] [place] [phone] July, [place] [id number] [place] [phone] July, Type 2 diabetes mellitus with diabetic [...] agents L24.89 and Hospital discharge follow-up Z09 [place] [address] [address] [id number] [place] [phone] July, [place] [address] [place] [id number] [place] [phone] July, Type 2 diabetes mellitus with diabetic neuropathy, unspecified E11.40 [place] [address] [place] [id number] [place] [phone] July, Type 2 diabetes mellitus with diabetic neuropathy, unspecified E11.40 and Rheumatoid arthritis of left wrist without organ or system involvement with positive rheumatoid factor M05.732 [place] [id number] [place] [phone] July, [place] [address] [place] [id number] [place] [id number] July, [place] [address] [place] [id number] [place] [phone] Jun, [place] [address] [place] [id number] [place] [phone] Jun, [place] [id number] [place] [address] Jun, 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 [place] [address] [place] [id number] [place] [phone] Jun, [place] [address] [address] Jun, 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 [place] [address] [address] Jun, [place] [address] [place] [id number] [place] [phone] Jun, [place] [address] [place] [id number] [place] [phone] Jun, Encounter for PPD test Z11.1 ; Rheumatoid arthritis with rheumatoid factor of right wrist without organ or systems involvement M05.731 and Rheumatoid arthritis of left wrist without organ or system involvement with positive rheumatoid factor M05.732 [place] [id number] [place] [address] Jun, Type 2 diabetes mellitus with diabetic neuropathy, unspecified E11.40 [place] [id number] [place] [address] May, Type 2 diabetes mellitus with diabetic neuropathy, unspecified E11.40 ; Emphysema, unspecified J43.9 ; Rheumatoid arthritis with rheumatoid factor of right wrist without organ or systems involvement M05.731 ; Rheumatoid arthritis of left wrist without organ or system involvement with positive rheumatoid factor M05.732 and Chronic pain G89.29 [place] [id number] [place] [phone] May, [place] [id number] [place] [address] May, Swelling of hand joint M25.449 ; Ankle swelling M25.473 and Joint pain M25.50 [place] [id number] [place] [phone] 16 May, 2015 Emphysema, unspecified J43.9 [place] [id number] [place] [address] May, Gastroenteritis K52.9 and Hypertension I10 [place] [id number] [place] [phone] Apr, [place] [address] [address] Apr, [place] [address] [place] [id number] [place] [phone] Apr, [place] [address] [address] Apr, Type 2 diabetes mellitus with diabetic [...] F41.8 and Injury of left hand S69.92XA [place] [id number] [place] [phone] Apr, [place] [id number] [place] [address] Apr, [place] [id number] [place] [phone] Apr, Type 2 diabetes mellitus with diabetic [...] pain G89.29 and Depression with anxiety F41.[address] [address] Mar, [place] [address] [address] Mar, Allergic rhinitis J30.9 ; URI (upper respiratory infection) J06.9 and Other viral agents as the cause of diseases classified elsewhere B97.89 [facility] [address] [address] Feb, Acute nasopharyngitis [common cold] J00 and Acute diarrhea R19.7 [place] [address] [address] Feb, Depression F32.9 [place] [address] [address] Jan, Otitis media, right H66.[address] [address] Jan, [place] [address] [address] Jan, Type 2 diabetes mellitus with diabetic neuropathy, unspecified E11.40 [place] [address] [address] Jan, [place] [address] [address] Jan, Hyperlipemia E78.5 [place] [address] [address] Jan, Type 2 diabetes mellitus with diabetic neuropathy, unspecified E11.40 ; Emphysema, unspecified J43.9 ; CAD (coronary artery disease) I25.10 and Hyperlipemia E78.5 [place] [address] [address] Dec, Allergic rhinitis J30.9 and Fungal infection B49 [place] [address] [address] Dec, [place] [address] [address] Dec, [address] [address] Dec, Chest pain R07.9 ; CAD (coronary artery disease) I25.10 ; Hypertension I10 and Hyperlipemia E78.[address] [address] Dec, Pain in thoracic spine M54.6 ; Gastro-esophageal reflux disease without esophagitis K21.9 ; Emphysema, unspecified J43.9 and Migraine without aura, not intractable, with status migrainosus G43.[address] [address] Dec, [address] [address] Nov, Influenza vaccine administered V04.[address] [address] Nov, [address] [address] Sep, [address] [address] Sep, [address] [address] Sep, CAD (coronary artery disease) 414.00 and Diabetes type 2, uncontrolled 250.[address] [address] Sep, CAD (coronary artery disease) 414.00 ; Diabetes type 2, uncontrolled 250.02 and Migraine 346.90 IMMUNIZATIONS No Known Immunizations SOCIAL HISTORY Never Assessed REASON FOR VISIT Refill request PLAN OF CARE VITAL SIGNS MEDICATIONS Unknown [...]
--- OUTSIDE RECORDS SUMMARY | 2018-08-23 17:13 | XMS REPORT ---
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 Active 121383567210242 Problem Vitamin D deficiency E55.9 Active 80739885 Problem Hammer toe of left foot M20.42 Active 228180092 Problem Other hammer toe(s) (acquired), left foot M20.42 Active 43146153 Problem Dependence on nocturnal oxygen therapy Z99.81 Active 66320581626627 Problem Tobacco abuse Z72.0 Active 203156973 Problem Other hammer toe(s) (acquired), right foot M20.41 Active 245230532 Problem Gastro-esophageal reflux disease without esophagitis K21.9 Active 477975829 Problem Emphysema, unspecified J43.9 Active 86823062 Problem Hypertension I10 Active 04444754 Problem Hyperlipemia E78.5 Active 64640646 Problem Anxiety associated with depression F41.8 Active 834595179 Problem Chronic pain G89.29 Active 33371394 Problem Type 2 diabetes mellitus with diabetic neuropathy, unspecified E11.40 Active 88901998 Problem OAB (overactive bladder) N32.81 Active 231064071 Problem Allergic rhinitis J30.9 Active 18222066 Problem Rheumatoid arthritis involving multiple sites with positive rheumatoid factor M05.79 Active 051595477 ALLERGIES No Information ENCOUNTERS Encounter Location Date Diagnosis [facility] [address] [facility] [id number] [address] Oct, [facility] [address] [facility] [id number] [place] [address] Sep, Chronic pain G89.29 [place] [id number] [place] [address] 15 Aug, 2017 Type 2 diabetes mellitus with diabetic neuropathy, unspecified E11.40 ; Hypertension I10 ; Hyperlipemia E78.5 ; Gastro-esophageal reflux disease without esophagitis K21.9 ; Emphysema, unspecified J43.9 ; Anxiety associated with depression F41.8 ; Vitamin D deficiency E55.9 ; Chronic pain G89.29 ; Tobacco abuse Z72.0 ; Overweight (BMI 25.0-29.9) E66.3 ; 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 ; OAB (overactive bladder) N32.81 and Primary insomnia F51.01 [place] [address] [id number] [place] [address] July, [place] [address] [address] July, [place] [id number] [place] [address] July, Chronic pain G89.29 [place] [id number] [place] [address] July, [place] [address] [id number] [place] [address] July, Onychomycosis B35.1 ; Hammer toe of left foot M20.42 and Type 2 diabetes mellitus with diabetic neuropathy, unspecified E11.40 [place] [id number] [place] [address] July, [place] [id number] [place] [address] July, Chronic pain G89.29 and Neuropathy G62.9 [place] [address] [id number] [place] [address] July, [place] [address] [place] [address] July, [facility] [id number] [place] [address] Jun, [facility] [id number] [place] [address] Jun, Chronic pain G89.29 [facility] [id number] [place] [address] Jun, [facility] [id number] [place] [address] Jun, [facility] [id number] [place] [address] Jun, Visit for TB skin test Z11.1 [facility] [id number] [place] [address] 16 Jun, 2017 [facility] [id number] [place] [address] Jun, [facility] [id number] [place] [address] Jun, Tobacco abuse Z72.0 and Rheumatoid arthritis involving multiple sites with positive rheumatoid factor M05.79 [facility] [id number] [place] [address] Jun, Anxiety F41.9 ; Acute non-recurrent maxillary sinusitis J01.00 and Chronic pain G89.29 [facility] [address] [address] Jun, [facility] [id number] [place] [address] May, Rheumatoid arthritis involving multiple sites with positive rheumatoid factor M05.79 [facility] [id number] [place] [address] May, Chronic pain G89.29 [facility] [id number] [place] [address] May, [place] [address] [address] May, [place] [id number] [place] [address] May, [place] [id number] [place] [address] May, Type 2 diabetes mellitus with diabetic neuropathy, unspecified E11.40 [place] [address] [address] May, Type 2 diabetes mellitus with diabetic neuropathy, unspecified E11.40 ; Emphysema, unspecified J43.9 ; Hypertension I10 ; Hyperlipemia E78.5 ; Vitamin D deficiency E55.9 ; Right medial knee pain M25.561 ; Controlled substance agreement signed Z79.899 ; Chronic pain G89.29 ; Allergic rhinitis J30.9 ; Anxiety associated with depression F41.8 ; Neuropathy G62.9 and Gastro- esophageal reflux disease without esophagitis K21.9 [place] [address] [address] Apr, Chronic pain G89.29 [place] [id number] [place] [address] 16 Apr, 2017 Other hammer toe(s) (acquired), left foot M20.42 ; Other hammer toe(s) (acquired), right foot M20.41 ; Type 2 diabetes mellitus with diabetic neuropathy, unspecified E11.40 and Onychomycosis B35.1 [place] [address] [address] 2017 Gastro-esophageal reflux disease without esophagitis K21.9 [place] [id number] [place] [address] Apr, Controlled substance agreement signed Z79.899 [place] [id number] [place] [address] Mar, Chronic pain G89.29 [facility] [id number] [place] [address] Mar, Emphysema, unspecified J43.9 and Type 2 diabetes mellitus with diabetic neuropathy, unspecified E11.40 [facility] [id number] [place] [address] Mar, Dysuria R30.0 ; Vaginal candidiasis B37.3 and Acute nonintractable headache, unspecified headache type R51 [facility] [id number] [place] [address] Feb, Neuropathy G62.9 and Chronic pain G89.29 [place] [id number] [place] [address] Feb, Gastro-esophageal reflux disease without esophagitis K21.9 [place] [address] [address] Feb, [place] [id number] [place] [address] Feb, Rheumatoid arthritis involving multiple sites with positive rheumatoid factor M05.79 and COPD with acute exacerbation J44.1 [place] [id number] [place] [address] Feb, Vaginal odor N89.8 ; Vaginal irritation N89.8 ; Candidal dermatitis B37.2 and Screening breast examination Z12.31 [facility] [id number] [place] [address] Feb, [place] [id number] [place] [address] Feb, [place] [id number] [place] [address] Feb, [place] [id number] [place] [address] Feb, COPD with exacerbation J44.1 ; Tobacco abuse counseling Z71.6 ; Tobacco abuse Z72.0 ; Rheumatoid arthritis involving multiple sites with positive rheumatoid factor M05.79 and Hyperlipemia E78.5 [facility] [address] [address] Feb, [facility] [address] [id number] Jan, [facility] [address] [address] Jan, Chronic pain G89.29 [facility] [address] [id number] Jan, Dental examination Z01.20 [facility] [address] [address] Jan, Back pain of lumbar region with sciatica M54.40 [facility] [address] [address] Jan, Acute bacterial conjunctivitis of both eyes H10.33 [place] [address] [address] Jan, Chronic pain G89.29 [place] [address] [address] Dec, Type 2 diabetes mellitus with diabetic neuropathy, unspecified E11.40 ; Hypertension I10 ; Hyperlipemia E78.5 ; Gastro-esophageal reflux disease without esophagitis K21.9 ; Anxiety associated with depression F41.8 ; Allergic rhinitis J30.9 ; Neuropathy G62.9 and Dependence on nocturnal oxygen therapy Z99.81 [place] [address] [address] Dec, [place] [address] [address] Dec, [place] [address] [address] 09 Dec, 2016 Encounter for immunization Z23 [facility] [address] [address] 05 Dec, 2016 Type 2 diabetes mellitus with diabetic neuropathy, unspecified E11.40 and Chronic pain G89.29 [facility] [address] [address] 11 Nov, 2016 Gastro-esophageal reflux disease without esophagitis K21.9 [facility] [address] [address] 11 Nov, 2016 Peripheral edema R60.9 and Chest pain in adult R07.9 [facility] [address] [address] 07 Nov, 2016 Chronic pain G89.29 [facility] [address] [address] 31 Oct, 2016 [place] [address] [address] 30 Oct, 2016 [facility] [address] [address] 17 Oct, 2016 Rheumatoid arthritis with rheumatoid factor of right wrist without organ or systems involvement M05.731 [facility] [address] [address] 15 Oct, 2016 [facility] [address] [address] Oct, Acute exacerbation of chronic obstructive pulmonary disease (COPD) J44.1 and Canker sore K12.0 [facility] [address] [address] 14 Oct, 2016 [facility] [address] [address] 10 Oct, 2016 [facility] [address] [address] 09 Oct, 2016 Chronic pain G89.29 [facility] [address] [id number] Oct, Dental examination Z01.20 [facility] [id number] [place] [address] Oct, Dental examination Z01.20 and Periodontitis K05.30 [facility] [id number] [place] [id number] Oct, Dental examination Z01.20 [facility] [id number] [place] [address] Sep, Abscess L02.91 [facility] [id number] [place] [address] Sep, Dental examination Z01.20 [facility] [id number] [place] [address] Sep, [facility] [id number] [place] [id number] Sep, Dental examination Z01.20 and Dental caries K02.9 [facility] [id number] [place] [address] Sep, Primary insomnia F51.01 and Anxiety associated with depression F41.8 [place] [id number] [place] [address] Sep, Rheumatoid arthritis with rheumatoid factor of right wrist without organ or systems involvement M05.731 [place] [id number] [place] [address] Sep, Chronic pain G89.29 [place] [address] [place] [address] Sep, Type 2 diabetes mellitus with diabetic neuropathy, unspecified E11.40 ; Emphysema, unspecified J43.9 ; Gastro-esophageal reflux disease without esophagitis K21.9 ; Hypertension I10 ; Hyperlipemia E78.5 ; Anxiety associated with depression F41.8 ; Chronic pain G89.29 ; Vitamin D deficiency E55.9 and Primary insomnia F51.01 [place] [id number] [place] [address] 16 Aug, 2016 Anxiety associated with depression F41.8 [place] [id number] [place] [address] 13 Aug, 2016 Chronic pain G89.29 and Neuropathy G62.9 [place] [id number] [place] [address] Aug, Type 2 diabetes mellitus with diabetic neuropathy, unspecified E11.40 ; Rheumatoid arthritis involving multiple sites with positive rheumatoid factor M05.79 ; Vitamin D deficiency E55.9 ; Anxiety associated with depression F41.8 and Primary insomnia F51.01 [place] [id number] [place] [address] July, Emphysema, unspecified J43.9 [place] [id number] [place] [address] July, Allergic rhinitis J30.9 [place] [id number] [place] [address] July, Allergic rhinitis J30.9 ; Emphysema, unspecified J43.9 and Rheumatoid arthritis with rheumatoid factor of right wrist without organ or systems involvement M05.731 [place] [id number] [place] [address] July, Neuropathy G62.9 and Chronic pain G89.29 [place] [id number] [place] [address] July, Rheumatoid arthritis involving multiple sites with positive rheumatoid factor M05.79 [place] [id number] [place] [address] Jun, [place] [id number] [place] [address] Jun, Neuropathy G62.9 and Chronic pain G89.29 [place] [id number] [place] [address] May, Neuropathy G62.9 and Chronic pain G89.29 [place] [id number] [place] [address] May, [place] [id number] [place] [address] May, [place] [id number] [place] [address] May, Type 2 diabetes mellitus with diabetic [...] system involvement with positive rheumatoid factor M05.732 [place] [id number] [place] [address] Apr, Chronic pain G89.29 [place] [id number] [place] [address] Mar, Gastro-esophageal reflux disease without esophagitis K21.9 [place] [id number] [place] [address] Mar, [place] [id number] [place] [address] Mar, Rheumatoid arthritis with rheumatoid factor of right wrist without organ or systems involvement M05.731 [place] [id number] [place] [address] Mar, Chronic pain G89.29 [place] [id number] [place] [address] Feb, Hyperlipemia E78.5 [place] [address] [place] [address] Feb, Abnormal breath sounds R06.89 ; COPD with exacerbation J44.1 and Fatigue, unspecified type R53.83 [place] [id number] [place] [address] Feb, Neuropathy G62.9 ; Abnormal lung sounds R09.89 and Bronchitis J40 [facility] [address] [address] Feb, Bronchitis J40 [place] [address] [address] Feb, Chronic pain G89.29 [place] [address] [address] Jan, Type 2 diabetes mellitus with diabetic neuropathy, unspecified E11.40 ; Rheumatoid arthritis with rheumatoid factor of right wrist without organ or systems involvement M05.731 and Hyperlipemia E78.5 [place] [id number] [place] [address] Jan, Rheumatoid arthritis with rheumatoid factor of right wrist without organ or systems involvement M05.731 [place] [id number] [place] [address] Jan, De Quervain's disease (radial styloid tenosynovitis) M65.4 ; Closed nondisplaced fracture of scaphoid of left wrist, unspecified portion of scaphoid, initial encounter S62.002A and Peripheral tear of medial meniscus of left knee, unspecified whether old or current tear, initial encounter S83.222A [place] [address] [address] Jan, Hypertension I10 ; Type 2 diabetes mellitus with diabetic neuropathy, unspecified E11.40 ; Hyperlipemia E78.5 ; Allergic rhinitis J30.9 ; Neuropathy G62.9 ; Rheumatoid arthritis with rheumatoid factor of right wrist without organ or systems involvement M05.731 ; Acute non-recurrent maxillary sinusitis J01.00 and Chronic pain G89.29 [place] [id number] [place] [address] Dec, [place] [id number] [place] [address] Dec, [place] [id number] [place] [address] Dec, Type 2 diabetes mellitus with diabetic neuropathy, unspecified E11.40 ; Emphysema, unspecified J43.9 ; Gastro-esophageal reflux disease without esophagitis K21.9 ; Hypertension I10 ; Hyperlipemia E78.5 ; Rheumatoid arthritis with rheumatoid factor of right wrist without organ or systems involvement M05.731 ; Elevated white blood cell count, unspecified D72.829 ; Acute non- recurrent frontal sinusitis J01.10 and Chronic pain G89.29 [place] [id number] [place] [address] Nov, [place] [address] [address] Nov, Elevated white blood cell count, unspecified D72.829 ; Encounter for immunization Z23 ; Rheumatoid arthritis with rheumatoid factor of right wrist without organ or systems involvement M05.731 ; Injury of left hand S69.92XA ; Pain in left knee M25.562 and Other chronic pain G89.29 [place] [id number] [place] [address] Nov, [place] [id number] [place] [address] Nov, [place] [id number] [place] [address] Oct, [place] [id number] [place] [address] Oct, Hyperlipemia E78.5 [place] [id number] [place] [address] Oct, [place] [id number] [place] [address] Oct, Type 2 diabetes mellitus with diabetic neuropathy, unspecified E11.40 ; Neuropathy G62.9 ; Hypertension I10 ; Chronic pain G89.29 and Hyperlipemia E78.5 [place] [id number] [place] [address] Oct, Emphysema, unspecified J43.9 and Rheumatoid arthritis of left wrist without organ or system involvement with positive rheumatoid factor M05.732 [place] [id number] [place] [address] Sep, Chronic pain syndrome G89.4 [place] [address] [address] Sep, [place] [id number] [place] [address] Sep, [place] [id number] [place] [address] Sep, Closed nondisplaced fracture of scaphoid of left wrist, unspecified portion of scaphoid, initial encounter S62.002A [place] [id number] [place] [address] Sep, Type 2 diabetes mellitus with diabetic neuropathy, unspecified E11.40 ; Hypertension I10 ; Hyperlipemia E78.5 and Acute non-recurrent maxillary sinusitis J01.00 [place] [id number] [place] [address] Sep, [place] [id number] [place] [address] Sep, [place] [id number] [place] [address] Sep, [place] [id number] [place] [address] Sep, [place] [address] [place] [address] Aug, Epigastric pain R10.13 and Right upper quadrant pain R10.11 [place] [id number] [place] [address] Aug, Closed nondisplaced fracture of scaphoid of left wrist, unspecified portion of scaphoid, initial encounter S62.002A [place] [id number] [place] [address] Aug, [place] [id number] [place] [address] Aug, [facility] [id number] [place] [address] Aug, Shortness of breath R06.02 ; Epigastric pain R10.13 and Injury of left lower arm, initial encounter S59.912A [place] [id number] [place] [address] Aug, Coronary artery disease involving red devil heart with angina pectoris, unspecified vessel or lesion type I25.119 ; Pulmonary emphysema, unspecified emphysema type J43.9 and Snoring R06.83 [place] [id number] [place] [address] Aug, [place] [id number] [place] [address] Aug, Emphysema, unspecified J43.9 ; 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 and Hypertension I10 [place] [id number] [place] [address] July, [place] [id number] [place] [address] July, Closed nondisplaced fracture of scaphoid of left wrist, unspecified portion of scaphoid, initial encounter S62.002A [place] [id number] [place] [address] July, [place] [address] [place] [address] July, Type 2 diabetes mellitus with diabetic neuropathy, unspecified E11.40 ; Emphysema, unspecified J43.9 ; 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 ; [...] agents L24.89 and Hospital discharge follow-up Z09 [place] [address] [place] [id number] [place] [id number] July, [place] [address] [place] [id number] [place] [id number] July, Type 2 diabetes mellitus with diabetic neuropathy, unspecified E11.40 [place] [address] [place] [id number] [place] [id number] July, Type 2 diabetes mellitus with diabetic neuropathy, unspecified E11.40 and Rheumatoid arthritis of left wrist without organ or system involvement with positive rheumatoid factor M05.732 [place] [id number] [place] [id number] July, [place] [address] [place] [id number] [place] [id number] July, [place] [address] [place] [id number] [place] [phone] Jun, [place] [address] [place] [id number] [place] [phone] Jun, [place] [id number] [place] [address] Jun, 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 [place] [address] [place] [id number] [place] [id number] Jun, [place] [id number] [place] [address] Jun, 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 [place] [id number] [place] [phone] Jun, [place] [address] [place] [id number] [place] [phone] Jun, [place] [address] [place] [id number] [place] [address] Jun, Encounter for PPD test Z11.1 ; Rheumatoid arthritis with rheumatoid factor of right wrist without organ or systems involvement M05.731 and Rheumatoid arthritis of left wrist without organ or system involvement with positive rheumatoid factor M05.732 [place] [address] [place] [id number] [place] [phone] Jun, Type 2 diabetes mellitus with diabetic neuropathy, unspecified E11.40 [place] [address] [place] [id number] [place] [address] May, Type 2 diabetes mellitus with diabetic neuropathy, unspecified E11.40 ; Emphysema, unspecified J43.9 ; Rheumatoid arthritis with rheumatoid factor of right wrist without organ or systems involvement M05.731 ; Rheumatoid arthritis of left wrist without organ or system involvement with positive rheumatoid factor M05.732 and Chronic pain G89.29 [place] [address] [place] [id number] [place] [phone] May, [place] [id number] [place] [address] May, Swelling of hand joint M25.449 ; Ankle swelling M25.473 and Joint pain M25.50 [place] [id number] [place] [id number] 16 May, 2015 Emphysema, unspecified J43.9 [place] [address] [place] [id number] [place] [id number] May, Hypertension I10 and Gastroenteritis K52.9 [place] [id number] [place] [phone] Apr, [place] [address] [address] Apr, [place] [address] [place] [id number] [place] [phone] Apr, [address] [address] Apr, Type 2 diabetes mellitus with diabetic neuropathy, unspecified E11.40 ; Emphysema, unspecified J43.9 ; 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 ; Migraine without aura, not intractable, with status migrainosus G43.001 ; Gastro-esophageal reflux disease without esophagitis K21.9 ; CAD (coronary artery disease) I25.10 ; Hypertension I10 ; Hyperlipemia E78.5 ; Allergic rhinitis J30.9 ; Neuropathy G62.9 ; Anxiety associated with depression F41.8 and Injury of left hand S69.92XA [place] [id number] [place] [id number] Apr, [place] [id number] [place] [phone] Apr, [place] [id number] [place] [id number] Apr, Type 2 diabetes mellitus with diabetic neuropathy, unspecified E11.40 ; Emphysema, unspecified J43.9 ; Essential (primary) hypertension I10 ; 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 ; Gastro-esophageal reflux disease without esophagitis K21.9 ; CAD (coronary artery disease) I25.10 ; Hyperlipemia E78.5 ; Hypertension I10 ; History of solitary pulmonary nodule Z87.898 ; Allergic rhinitis J30.9 ; Chronic pain G89.29 and Depression with anxiety F41.[address] [address] Mar, [place] [address] [address] Mar, Allergic rhinitis J30.9 ; URI (upper respiratory infection) J06.9 and Other viral agents as the cause of diseases classified elsewhere B97.89 [facility] [address] [address] Feb, Acute nasopharyngitis [common cold] J00 and Acute diarrhea R19.7 [place] [address] [address] Feb, Depression F32.9 [place] [address] [address] Jan, Otitis media, right H66.[address] [address] Jan, [place] [address] [address] Jan, Type 2 diabetes mellitus with diabetic neuropathy, unspecified E11.40 [place] [address] [address] Jan, [place] [address] [address] Jan, Hyperlipemia E78.5 [place] [address] [address] Jan, Type 2 diabetes mellitus with diabetic neuropathy, unspecified E11.40 ; Emphysema, unspecified J43.9 ; CAD (coronary artery disease) I25.10 and Hyperlipemia E78.5 [place] [address] [address] Dec, Allergic rhinitis J30.9 and Fungal infection B49 [place] [address] [address] Dec, [place] [address] [address] Dec, [address] [address] Dec, Chest pain R07.9 ; CAD (coronary artery disease) I25.10 ; Hypertension I10 and Hyperlipemia E78.[address] [address] Dec, Pain in thoracic spine M54.6 ; Gastro-esophageal reflux disease without esophagitis K21.9 ; Emphysema, unspecified J43.9 and Migraine without aura, not intractable, with status migrainosus G43.[address] [address] Dec, [address] [address] Nov, Influenza vaccine administered V04.[address] [address] Nov, [address] [address] Sep, [address] [address] Sep, [address] [address] Sep, CAD (coronary artery disease) 414.00 and Diabetes type 2, uncontrolled 250.[address] [address] Sep, CAD (coronary artery disease) 414.00 ; [...] unspecified Medical History Atherosclerotic heart disease of red devil coronary artery without angina pectoris Medical History [...]
--- OUTSIDE RECORDS SUMMARY | 2018-08-23 17:13 | XMS REPORT ---
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 Active 088675652241720 Problem Vitamin D deficiency E55.9 Active 63054174 Problem Hammer toe of left foot M20.42 Active 771846306 Problem Other hammer toe(s) (acquired), left foot M20.42 Active 31546243 Problem Dependence on nocturnal oxygen therapy Z99.81 Active 90694535522918 Problem Tobacco abuse Z72.0 Active 898697078 Problem Other hammer toe(s) (acquired), right foot M20.41 Active 501570379 Problem Gastro-esophageal reflux disease without esophagitis K21.9 Active 224410689 Problem Emphysema, unspecified J43.9 Active 19128965 Problem Hypertension I10 Active 23622800 Problem Hyperlipemia E78.5 Active 38431152 Problem Anxiety associated with depression F41.8 Active 235828321 Problem Chronic pain G89.29 Active 43189284 Problem Type 2 diabetes mellitus with diabetic neuropathy, unspecified E11.40 Active 74293914 Problem OAB (overactive bladder) N32.81 Active 874359598 Problem Allergic rhinitis J30.9 Active 64216054 Problem Rheumatoid arthritis involving multiple sites with positive rheumatoid factor M05.79 Active 252309955 ALLERGIES Substance Reaction Event Type Date Status Sulfamethoxazole-Trimethoprim itching Drug Allergy May, Active Singulair dizziness Drug Allergy May, Active ENCOUNTERS Encounter Location Date Diagnosis [facility] [address] [facility] [id number] [address] Oct, [place] [address] [address] Sep, Chronic pain G89.29 [place] [address] [address] Aug, Type 2 diabetes mellitus with diabetic neuropathy, unspecified E11.40 ; Hypertension I10 ; Hyperlipemia E78.5 ; Gastro-esophageal reflux disease without esophagitis K21.9 ; Emphysema, unspecified J43.9 ; Anxiety associated with depression F41.8 ; Vitamin D deficiency E55.9 ; Chronic pain G89.29 ; Tobacco abuse Z72.0 ; Overweight (BMI 25.0-29.9) E66.3 ; 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 ; OAB (overactive bladder) N32.81 and Primary insomnia F51.01 [place] [address] [address] July, [place] [address] [address] July, [place] [address] [address] July, Chronic pain G89.29 [place] [address] [address] July, [place] [address] [address] July, Onychomycosis B35.1 ; Hammer toe of left foot M20.42 and Type 2 diabetes mellitus with diabetic neuropathy, unspecified E11.40 [place] [address] [address] July, [address] [address] July, Chronic pain G89.29 and Neuropathy G62.9 [place] [address] [place] [address] July, [facility] [address] [place] [id number] [place] [address] July, [facility] [address] [place] [id number] [place] [address] Jun, [facility] [address] [place] [id number] [place] [address] Jun, Chronic pain G89.29 [facility] [address] [place] [id number] [place] [address] Jun, [facility] [address] [place] [id number] [place] [address] Jun, [facility] [address] [place] [id number] [place] [address] Jun, Visit for TB skin test Z11.1 [facility] [address] [place] [id number] [place] [address] Jun, [facility] [address] [place] [id number] [place] [address] Jun, [facility] [address] [place] [id number] [place] [address] Jun, Tobacco abuse Z72.0 and Rheumatoid arthritis involving multiple sites with positive rheumatoid factor M05.79 [facility] [address] [place] [id number] [place] [address] Jun, Anxiety F41.9 ; Acute non-recurrent maxillary sinusitis J01.00 and Chronic pain G89.29 [facility] [address] [place] [address] Jun, [facility] [address] [place] [id number] [place] [address] May, Rheumatoid arthritis involving multiple sites with positive rheumatoid factor M05.79 [facility] [address] [place] [id number] [place] [address] May, Chronic pain G89.29 [place] [address] [address] May, [place] [address] [place] [id number] [place] [address] May, [place] [address] [place] [id number] [place] [address] May, [place] [address] [place] [id number] [place] [address] May, Type 2 diabetes mellitus with diabetic neuropathy, unspecified E11.40 [place] [address] [place] [id number] [place] [address] May, Type 2 diabetes mellitus with diabetic neuropathy, unspecified E11.40 ; Emphysema, unspecified J43.9 ; Hypertension I10 ; Hyperlipemia E78.5 ; Vitamin D deficiency E55.9 ; Right medial knee pain M25.561 ; Controlled substance agreement signed Z79.899 ; Chronic pain G89.29 ; Allergic rhinitis J30.9 ; Anxiety associated with depression F41.8 ; Neuropathy G62.9 and Gastro- esophageal reflux disease without esophagitis K21.9 [place] [address] [place] [id number] [place] [address] 22 Apr, 2017 Chronic pain G89.29 [place] [address] [place] [address] 16 Apr, 2017 Other hammer toe(s) (acquired), left foot M20.42 ; Other hammer toe(s) (acquired), right foot M20.41 ; Type 2 diabetes mellitus with diabetic neuropathy, unspecified E11.40 and Onychomycosis B35.1 [place] [address] [place] [id number] [place] [address] 2017 Gastro-esophageal reflux disease without esophagitis K21.9 [place] [address] [place] [address] Apr, Controlled substance agreement signed Z79.899 [facility] [address] [place] [id number] [place] [address] Mar, Chronic pain G89.29 [place] [address] [address] Mar, Emphysema, unspecified J43.9 and Type 2 diabetes mellitus with diabetic neuropathy, unspecified E11.40 [facility] [address] [address] Mar, Dysuria R30.0 ; Vaginal candidiasis B37.3 and Acute nonintractable headache, unspecified headache type R51 [place] [address] [address] Feb, Neuropathy G62.9 and Chronic pain G89.29 [place] [address] [address] Feb, Gastro-esophageal reflux disease without esophagitis K21.9 [place] [address] [address] Feb, [place] [address] [address] Feb, Rheumatoid arthritis involving multiple sites with positive rheumatoid factor M05.79 and COPD with acute exacerbation J44.1 [place] [address] [place] [id number] [place] [address] Feb, Vaginal odor N89.8 ; Vaginal irritation N89.8 ; Candidal dermatitis B37.2 and Screening breast examination Z12.31 [place] [address] [place] [id number] [place] [address] Feb, [place] [address] [address] 05 Feb, 2017 [place] [address] [address] Feb, [place] [address] [place] [address] Feb, COPD with exacerbation J44.1 ; Tobacco abuse counseling Z71.6 ; Tobacco abuse Z72.0 ; Rheumatoid arthritis involving multiple sites with positive rheumatoid factor M05.79 and Hyperlipemia E78.5 [facility] [address] [place] [id number] [place] [address] Feb, [facility] [address] [id number] Jan, [facility] [address] [address] Jan, Chronic pain G89.29 [facility] [address] [id number] Jan, Dental examination Z01.20 [facility] [address] [address] Jan, Back pain of lumbar region with sciatica M54.40 [facility] [address] [address] 15 Jan, 2017 Acute bacterial conjunctivitis of both eyes H10.33 [place] [address] [address] Jan, Chronic pain G89.29 [place] [address] [place] [id number] [place] [address] Dec, Type 2 diabetes mellitus with diabetic neuropathy, unspecified E11.40 ; Hypertension I10 ; Hyperlipemia E78.5 ; Gastro-esophageal reflux disease without esophagitis K21.9 ; Anxiety associated with depression F41.8 ; Allergic rhinitis J30.9 ; Neuropathy G62.9 and Dependence on nocturnal oxygen therapy Z99.81 [place] [address] [place] [id number] [place] [address] Dec, [facility] [address] [place] [id number] [place] [address] Dec, [place] [address] [address] 09 Dec, 2016 Encounter for immunization Z23 [facility] [address] [address] 05 Dec, 2016 Type 2 diabetes mellitus with diabetic neuropathy, unspecified E11.40 and Chronic pain G89.29 [place] [address] [address] 11 Nov, 2016 Gastro-esophageal reflux disease without esophagitis K21.9 [place] [address] [address] 11 Nov, 2016 Peripheral edema R60.9 and Chest pain in adult R07.9 [place] [address] [address] 07 Nov, 2016 Chronic pain G89.29 [place] [address] [address] Oct, [place] [address] [address] Oct, [place] [address] [address] Oct, Rheumatoid arthritis with rheumatoid factor of right wrist without organ or systems involvement M05.731 [place] [address] [address] Oct, [facility] [address] [place] [id number] [place] [address] Oct, Acute exacerbation of chronic obstructive pulmonary disease (COPD) J44.1 and Canker sore K12.0 [place] [address] [address] Oct, [facility] [address] [place] [id number] [place] [address] Oct, [facility] [address] [address] Oct, Chronic pain G89.29 [facility] [address] [place] [id number] [place] [id number] Oct, Dental examination Z01.20 [facility] [address] [place] [id number] [place] [address] Oct, Dental examination Z01.20 and Periodontitis K05.30 [facility] [address] [place] [id number] [place] [id number] Oct, Dental examination Z01.20 [facility] [address] [place] [id number] [place] [address] Sep, Abscess L02.91 [facility] [address] [address] Sep, Dental examination Z01.20 [facility] [address] [place] [id number] [place] [address] Sep, [facility] [address] [place] [id number] [place] [id number] Sep, Dental examination Z01.20 and Dental caries K02.9 [facility] [address] [address] Sep, Primary insomnia F51.01 and Anxiety associated with depression F41.8 [place] [address] [place] [id number] [place] [address] Sep, Rheumatoid arthritis with rheumatoid factor of right wrist without organ or systems involvement M05.731 [place] [address] [place] [id number] [place] [address] Sep, Chronic pain G89.29 [facility] [address] [address] Sep, Type 2 diabetes mellitus with diabetic neuropathy, unspecified E11.40 ; Emphysema, unspecified J43.9 ; Gastro-esophageal reflux disease without esophagitis K21.9 ; Hypertension I10 ; Hyperlipemia E78.5 ; Anxiety associated with depression F41.8 ; Chronic pain G89.29 ; Vitamin D deficiency E55.9 and Primary insomnia F51.01 [place] [address] [place] [id number] [place] [address] 16 Aug, 2016 Anxiety associated with depression F41.8 [place] [address] [place] [id number] [place] [address] 13 Aug, 2016 Chronic pain G89.29 and Neuropathy G62.9 [place] [address] [address] Aug, Type 2 diabetes mellitus with diabetic neuropathy, unspecified E11.40 ; Rheumatoid arthritis involving multiple sites with positive rheumatoid factor M05.79 ; Vitamin D deficiency E55.9 ; Anxiety associated with depression F41.8 and Primary insomnia F51.01 [place] [address] [place] [id number] [place] [address] July, Emphysema, unspecified J43.9 [place] [address] [place] [id number] [place] [address] July, Allergic rhinitis J30.9 [place] [address] [address] July, Allergic rhinitis J30.9 ; Emphysema, unspecified J43.9 and Rheumatoid arthritis with rheumatoid factor of right wrist without organ or systems involvement M05.731 [place] [address] [place] [id number] [place] [address] July, Neuropathy G62.9 and Chronic pain G89.29 [place] [address] [place] [id number] [place] [address] July, Rheumatoid arthritis involving multiple sites with positive rheumatoid factor M05.79 [place] [address] [address] Jun, [place] [address] [place] [id number] [place] [address] Jun, Neuropathy G62.9 and Chronic pain G89.29 [place] [address] [place] [address] May, Neuropathy G62.9 and Chronic pain G89.29 [place] [address] [place] [id number] [place] [address] May, [place] [address] [place] [id number] [place] [address] May, [place] [address] [place] [id number] [place] [address] May, Type 2 diabetes mellitus with diabetic [...] system involvement with positive rheumatoid factor M05.732 [place] [address] [place] [id number] [place] [address] Apr, Chronic pain G89.29 [place] [address] [place] [id number] [place] [address] Mar, Gastro-esophageal reflux disease without esophagitis K21.9 [place] [address] [place] [address] Mar, [place] [address] [place] [id number] [place] [address] Mar, Rheumatoid arthritis with rheumatoid factor of right wrist without organ or systems involvement M05.731 [place] [address] [place] [id number] [place] [address] Mar, Chronic pain G89.29 [place] [address] [place] [id number] [place] [address] Feb, Hyperlipemia E78.5 [place] [address] [place] [id number] [place] [address] Feb, Abnormal breath sounds R06.89 ; COPD with exacerbation J44.1 and Fatigue, unspecified type R53.83 [place] [address] [address] Feb, Neuropathy G62.9 ; Abnormal lung sounds R09.89 and Bronchitis J40 [facility] [address] [address] Feb, Bronchitis J40 [place] [address] [address] Feb, Chronic pain G89.29 [place] [address] [address] Jan, Type 2 diabetes mellitus with diabetic neuropathy, unspecified E11.40 ; Rheumatoid arthritis with rheumatoid factor of right wrist without organ or systems involvement M05.731 and Hyperlipemia E78.5 [place] [address] [address] Jan, Rheumatoid arthritis with rheumatoid factor of right wrist without organ or systems involvement M05.731 [place] [address] [address] Jan, De Quervain's disease (radial styloid tenosynovitis) M65.4 ; Closed nondisplaced fracture of scaphoid of left wrist, unspecified portion of scaphoid, initial encounter S62.002A and Peripheral tear of medial meniscus of left knee, unspecified whether old or current tear, initial encounter S83.222A [place] [address] [place] [id number] [place] [address] Jan, Hypertension I10 ; Type 2 diabetes mellitus with diabetic neuropathy, unspecified E11.40 ; Hyperlipemia E78.5 ; Allergic rhinitis J30.9 ; Neuropathy G62.9 ; Rheumatoid arthritis with rheumatoid factor of right wrist without organ or systems involvement M05.731 ; Acute non-recurrent maxillary sinusitis J01.00 and Chronic pain G89.29 [place] [address] [place] [id number] [place] [address] Dec, [place] [address] [place] [id number] [place] [address] Dec, [place] [address] [place] [id number] [place] [address] Dec, Type 2 diabetes mellitus with diabetic neuropathy, unspecified E11.40 ; Emphysema, unspecified J43.9 ; Gastro-esophageal reflux disease without esophagitis K21.9 ; Hypertension I10 ; Hyperlipemia E78.5 ; Rheumatoid arthritis with rheumatoid factor of right wrist without organ or systems involvement M05.731 ; Elevated white blood cell count, unspecified D72.829 ; Acute non- recurrent frontal sinusitis J01.10 and Chronic pain G89.29 [place] [address] [place] [id number] [place] [address] Nov, [place] [address] [place] [id number] [place] [address] Nov, Elevated white blood cell count, unspecified D72.829 ; Encounter for immunization Z23 ; Rheumatoid arthritis with rheumatoid factor of right wrist without organ or systems involvement M05.731 ; Injury of left hand S69.92XA ; Pain in left knee M25.562 and Other chronic pain G89.29 [place] [address] [place] [address] Nov, [place] [address] [place] [id number] [place] [address] Nov, [place] [address] [place] [id number] [place] [address] Oct, [place] [address] [place] [id number] [place] [address] Oct, Hyperlipemia E78.5 [place] [address] [place] [id number] [place] [address] Oct, [place] [address] [place] [id number] [place] [address] Oct, Type 2 diabetes mellitus with diabetic neuropathy, unspecified E11.40 ; Neuropathy G62.9 ; Hypertension I10 ; Chronic pain G89.29 and Hyperlipemia E78.5 [place] [address] [place] [id number] [place] [address] Oct, Emphysema, unspecified J43.9 and Rheumatoid arthritis of left wrist without organ or system involvement with positive rheumatoid factor M05.732 [place] [address] [place] [id number] [place] [address] Sep, Chronic pain syndrome G89.4 [place] [address] [place] [id number] [place] [address] Sep, [place] [address] [place] [id number] [place] [address] Sep, [place] [address] [place] [id number] [place] [address] Sep, Closed nondisplaced fracture of scaphoid of left wrist, unspecified portion of scaphoid, initial encounter S62.002A [place] [address] [place] [id number] [place] [address] Sep, Type 2 diabetes mellitus with diabetic neuropathy, unspecified E11.40 ; Hypertension I10 ; Hyperlipemia E78.5 and Acute non-recurrent maxillary sinusitis J01.00 [place] [address] [place] [id number] [place] [address] Sep, [place] [address] [place] [id number] [place] [address] Sep, [place] [address] [place] [id number] [place] [address] Sep, [place] [address] [place] [id number] [place] [address] Sep, [facility] [address] [place] [id number] [place] [address] Aug, Epigastric pain R10.13 and Right upper quadrant pain R10.11 [place] [address] [place] [id number] [place] [address] Aug, Closed nondisplaced fracture of scaphoid of left wrist, unspecified portion of scaphoid, initial encounter S62.002A [place] [address] [place] [id number] [place] [address] Aug, [place] [address] [place] [id number] [place] [address] Aug, [facility] [address] [place] [id number] [place] [address] Aug, Shortness of breath R06.02 ; Epigastric pain R10.13 and Injury of left lower arm, initial encounter S59.912A [place] [address] [place] [id number] [place] [address] Aug, Coronary artery disease involving stebbins heart with angina pectoris, unspecified vessel or lesion type I25.119 ; Pulmonary emphysema, unspecified emphysema type J43.9 and Snoring R06.83 [place] [address] [place] [id number] [place] [address] Aug, [place] [address] [place] [id number] [place] [address] Aug, Emphysema, unspecified J43.9 ; 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 and Hypertension I10 [place] [address] [place] [id number] [place] [address] July, [place] [address] [place] [id number] [place] [address] July, Closed nondisplaced fracture of scaphoid of left wrist, unspecified portion of scaphoid, initial encounter S62.002A [place] [address] [address] July, [place] [address] [place] [id number] [place] [address] July, Type 2 diabetes mellitus with diabetic neuropathy, unspecified E11.40 ; Emphysema, unspecified J43.9 ; 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 ; [...] agents L24.89 and Hospital discharge follow-up Z09 [place] [address] [id number] [place] [address] July, [place] [address] [place] [id number] [place] [address] July, Type 2 diabetes mellitus with diabetic neuropathy, unspecified E11.40 [place] [address] [place] [id number] [place] [address] July, Type 2 diabetes mellitus with diabetic neuropathy, unspecified E11.40 and Rheumatoid arthritis of left wrist without organ or system involvement with positive rheumatoid factor M05.732 [place] [address] [address] July, [place] [address] [place] [address] July, [place] [address] [id number] [place] [address] Jun, [place] [address] [place] [address] Jun, [place] [address] [place] [id number] [place] [address] Jun, 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 [place] [address] [place] [address] Jun, [place] [address] [place] [address] Jun, 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 [place] [address] [place] [address] Jun, [place] [address] [place] [address] Jun, [place] [address] [place] [address] Jun, Encounter for PPD test Z11.1 ; Rheumatoid arthritis with rheumatoid factor of right wrist without organ or systems involvement M05.731 and Rheumatoid arthritis of left wrist without organ or system involvement with positive rheumatoid factor M05.732 [place] [address] [id number] [place] [address] Jun, Type 2 diabetes mellitus with diabetic neuropathy, unspecified E11.40 [place] [address] [place] [id number] [place] [id number] May, Type 2 diabetes mellitus with diabetic neuropathy, unspecified E11.40 ; Emphysema, unspecified J43.9 ; Rheumatoid arthritis with rheumatoid factor of right wrist without organ or systems involvement M05.731 ; Rheumatoid arthritis of left wrist without organ or system involvement with positive rheumatoid factor M05.732 and Chronic pain G89.29 [place] [address] [address] May, [place] [address] [place] [address] May, Swelling of hand joint M25.449 ; Ankle swelling M25.473 and Joint pain M25.50 [place] [address] [address] May, Emphysema, unspecified J43.9 [place] [address] [place] [id number] [place] [address] May, Hypertension I10 and Gastroenteritis K52.9 [place] [address] [address] Apr, [place] [address] [address] Apr, [place] [address] [address] Apr, [place] [address] [address] Apr, Type 2 diabetes mellitus with diabetic neuropathy, unspecified E11.40 ; Emphysema, unspecified J43.9 ; 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 ; Migraine without aura, not intractable, with status migrainosus G43.001 ; Gastro-esophageal reflux disease without esophagitis K21.9 ; CAD (coronary artery disease) I25.10 ; Hypertension I10 ; Hyperlipemia E78.5 ; Allergic rhinitis J30.9 ; Neuropathy G62.9 ; Anxiety associated with depression F41.8 and Injury of left hand S69.92XA [place] [address] [place] [id number] [place] [address] 16 Apr, 2015 [place] [address] [place] [id number] [place] [address] Apr, [place] [address] [place] [id number] [place] [phone] 04 Apr, 2015 Type 2 diabetes mellitus with diabetic neuropathy, unspecified E11.40 ; Emphysema, unspecified J43.9 ; Essential (primary) hypertension I10 ; 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 ; Gastro-esophageal reflux disease without esophagitis K21.9 ; CAD (coronary artery disease) I25.10 ; Hyperlipemia E78.5 ; Hypertension I10 ; History of solitary pulmonary nodule Z87.898 ; Allergic rhinitis J30.9 ; Chronic pain G89.29 and Depression with anxiety F41.8 [place] [address] [address] Mar, [place] [address] [address] Mar, Allergic rhinitis J30.9 ; URI (upper respiratory infection) J06.9 and Other viral agents as the cause of diseases classified elsewhere B97.89 [facility] [address] [address] Feb, Acute nasopharyngitis [common cold] J00 and Acute diarrhea R19.7 [place] [address] [address] Feb, Depression F32.9 [place] [address] [address] Jan, Otitis media, right H66.91 [place] [address] [address] Jan, [place] [address] [address] Jan, Type 2 diabetes mellitus with diabetic neuropathy, unspecified E11.40 [place] [address] [address] Jan, [place] [address] [address] Jan, Hyperlipemia E78.5 [place] [address] [address] Jan, Type 2 diabetes mellitus with diabetic neuropathy, unspecified E11.40 ; Emphysema, unspecified J43.9 ; CAD (coronary artery disease) I25.10 and Hyperlipemia E78.5 [place] [address] [address] Dec, Allergic rhinitis J30.9 and Fungal infection B49 [place] [address] [place] [id number] [place] [address] Dec, [address] [address] Dec, [place] [address] [address] Dec, Chest pain R07.9 ; CAD (coronary artery disease) I25.10 ; Hypertension I10 and Hyperlipemia E78.[address] [address] Dec, Pain in thoracic spine M54.6 ; Gastro-esophageal reflux disease without esophagitis K21.9 ; Emphysema, unspecified J43.9 and Migraine without aura, not intractable, with status migrainosus G43.[address] [address] Dec, [place] [address] [address] Nov, Influenza vaccine administered V04.[address] [address] Nov, [place] [address] [address] Sep, [address] [address] Sep, [place] [address] [address] Sep, CAD (coronary artery disease) 414.00 and Diabetes type 2, uncontrolled [address] [address] Sep, CAD (coronary artery disease) 414.00 ; Diabetes type 2, uncontrolled 250.02 and Migraine 346.90 IMMUNIZATIONS No Known Immunizations SOCIAL HISTORY Never Assessed REASON FOR VISIT Right knee pain to medial side over past couple of days, last night radiated gwendolyn n leg into foot, C/O dizzines over past four days, BP low this morning analia franz , Due for [employer] and contract renewal PLAN OF CARE Activity Details Follow Up 3 Months, prn Reason:CHM/DM VITAL SIGNS Height 66 in 2017-05-19 Weight 183.4 lbs 2017-05-19 Temperature 97.9 degrees Fahrenheit 2017-05-19 Heart Rate 72 bpm 2017-05-19 Respiratory Rate 20 2017-05-19 BMI 29.60 kg/m2 2017-05-19 Blood pressure systolic 88 mmHg 2017-05-19 Blood pressure diastolic 50 mmHg 2017-05-19 MEDICATIONS Medication Instructions Dosage Frequency Start Date End Date Duration Status Quad Cane as directed May, Active Trazodone HCl 50 MG TAKE ONE TABLET BY MOUTH ONCE DAILY AT BEDTIME NEEDED Active Cetirizine HCl 10 Orally Once a day TAKE 1 TABLET BY MOUTH DAILY 24h Active Lisinopril 20 MG TAKE ONE TABLET BY MOUTH ONCE DAILY Active Blood Glucose Monitor System w/Device as directed July, Active Baclofen 10 MG TAKE ONE TABLET BY MOUTH THREE TIMES DAILY WITH FOOD OR MILK 90 Active Victoza 18 MG/3ML INJECT 1.8 MG SUBCUTANEOUSLY ONCE DAILY 30 Active Victoza 18 MG/3ML INJECT 1.8 MG SUBCUTANEOUSLY ONCE DAILY Active Qnasl 80 MCG/ACT Nasally Once a day 2 puffs in each nostril 24h 30 Active Folic Acid 1 MG TAKE ONE TABLET BY MOUTH ONCE DAILY 90 Active Aleve 220 MG Orally every 12 hrs 1 tablet 12h Active Blood Glucose Test test strips In Vitro 4 times a day test blood sugar 6h Jun, 30 days Active Hydrocodone-Acetaminophen 7.5-325 MG Orally every 6 hours as needed 1 tablet as needed Apr, Active Depend Adjustable Underwear Lg 1 as directed 3 times a day use one depends three times per day as needed 8h May, 12 months Active Nicotine 21 MG/24HR Transdermal Once a day 1 patch to skin 24h Feb, 30 day(s) Active Protonix 40 mg Orally Once a day 1 tablet 24h Dec, Active Metformin HCl 1000 MG TAKE ONE TABLET BY MOUTH TWICE DAILY WITH MEALS Active Lyrica 100 mg Orally Three times a day 1 capsule 8h Dec, Active Trazodone HCl 50 MG TAKE ONE TABLET BY MOUTH ONCE DAILY AT BEDTIME NEEDED 30 Active Easy Touch Pen Bullhead 32G X 4 MM sq 4 times a day as directed 6h Sep, 90 days Active Sucralfate 1 GM TAKE ONE TABLET BY MOUTH EVERY 6 HOURS Active Methotrexate 2.5 MG Orally once weekly 10 TABLETS 90 days Active Oxygen Active Citalopram Hydrobromide 20 MG TAKE ONE TABLET BY MOUTH ONCE DAILY Active Albuterol Sulfate (2.5 MG/3ML) 0.083% Inhalation Three times a day 3 ml 8h Active Symbicort 160-4.5 MCG/ACT Inhalation Twice a day Needs to make an appointment 2 puffs Active Fish Oil 1200 MG Orally Once a day 1 capsule 24h Active Metoprolol Tartrate 25 MG TAKE ONE TABLET BY MOUTH TWICE DAILY Active Nystatin-Triamcinolone 349463-8.1 UNIT/GM Externally Twice a day apply thin layer to irritated abdominal areas 12h July, Not-Taking Atorvastatin Calcium 10 MG TAKE ONE TABLET BY MOUTH ONCE DAILY Active Mucinex 600 MG Orally every 12 hrs 1 tablet as needed 12h Mar, July, 30 days Active Ventolin HFA 108 (90 Base) MCG/ACT Inhalation every 4 hrs Needs appointment 2 puffs as needed Active Aspirin Adult Low Strength 81 MG Orally Once a day 1 tablet 24h 90 Active BusPIRone HCl 10 mg Orally TID PRN 1 tablet Dec, 30 days Active Plaquenil 200 mg Orally Once a day 1 tablet with food or milk 24h 9 Aug, 2017 90 days Active RESULTS Name Result Date Reference Range [employer] 2017-05-19 Xray : Knee, Right 3 views (IN HOUSE) 2017-05-19 PROCEDURES Procedure Date Ordered Result Body Site X-RAY EXAM OF KNEE, 3 May 19, 2017 No Charge May 19, 2017 INSTRUCTIONS MEDICATIONS ADMINISTERED No Known Medications [...] unspecified Medical History 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
--- OUTSIDE RECORDS SUMMARY | 2018-08-23 17:14 | XMS REPORT ---
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 Name Role Phone DELEONCLAU Moran Unavailable PROBLEMS Type Condition ICD9-CM Code PSB21-UA Code Onset Dates Condition Status SNOMED Code Problem Primary insomnia F51.01 Active 5030627 Problem Neuropathy G62.9 Active 625097190 Problem Periodontitis K05.30 Active 09247087 Problem Atherosclerotic heart disease of [place] coronary artery without angina pectoris I25.10 Active 817818979638597 Problem Vitamin D deficiency E55.9 Active 88333670 Problem Hammer toe of left foot M20.42 Active 057857830 Problem Other hammer toe(s) (acquired), left foot M20.42 Active 79194766 Problem Dependence on nocturnal oxygen therapy Z99.81 Active 12974967807800 Problem Tobacco abuse Z72.0 Active 812256690 Problem Other hammer toe(s) (acquired), right foot M20.41 Active 973940522 Problem Gastro-esophageal reflux disease without esophagitis K21.9 Active 469668552 Problem Emphysema, unspecified J43.9 Active 25907159 Problem Hypertension I10 Active 83548359 Problem Hyperlipemia E78.5 Active 86430558 Problem Anxiety associated with depression F41.8 Active 309910539 Problem Chronic pain G89.29 Active 90384680 Problem Type 2 diabetes mellitus with diabetic neuropathy, unspecified E11.40 Active 93965039 Problem OAB (overactive bladder) N32.81 Active 576162134 Problem Allergic rhinitis J30.9 Active 25812339 Problem Rheumatoid arthritis involving multiple sites with positive rheumatoid factor M05.79 Active 540292278 ALLERGIES No Information ENCOUNTERS Encounter Location Date Diagnosis [facility] [address] [facility] [id number] [address] Oct, [facility] [address] [facility] [id number] [place] [address] Sep, [place] [id number] [place] [address] Aug, Type 2 diabetes mellitus with diabetic neuropathy, unspecified E11.40 ; Hypertension I10 ; Hyperlipemia E78.5 ; Gastro-esophageal reflux disease without esophagitis K21.9 ; Emphysema, unspecified J43.9 ; Anxiety associated with depression F41.8 ; Vitamin D deficiency E55.9 ; Chronic pain G89.29 ; Tobacco abuse Z72.0 ; Overweight (BMI 25.0-29.9) E66.3 ; Atherosclerotic heart disease of [place] coronary artery without angina pectoris I25.10 ; OAB (overactive bladder) N32.81 and Primary insomnia F51.01 [facility] [place] [id number] [place] [address] July, [place] [id number] [place] [address] July, [place] [id number] [place] [address] July, Chronic pain G89.29 [facility] [place] [id number] [place] [address] July, [facility] [place] [address] [place] [address] July, Onychomycosis B35.1 ; Hammer toe of left foot M20.42 and Type 2 diabetes mellitus with diabetic neuropathy, unspecified E11.40 [facility] [place] [address] [place] [address] July, [place] [address] [address] July, Chronic pain G89.29 and Neuropathy G62.9 [facility] [place] [address] [place] [address] July, [place] [address] [place] [address] July, [facility] [address], [place] [address] Jun, [facility] [address] [place] [address] Jun, Chronic pain G89.29 [facility] [address] [place] [address] Jun, [facility] [id number] [place] [address] Jun, [facility] [id number] [place] [address] Jun, Visit for TB skin test Z11.1 [facility] [address] [place] [address] 16 Jun, 2017 [facility] [address] [place] [address] Jun, [facility] [address] [place] [address] Jun, Tobacco abuse Z72.0 and Rheumatoid arthritis involving multiple sites with positive rheumatoid factor M05.79 [facility] [address], [place] [address] Jun, Anxiety F41.9 ; Acute non-recurrent maxillary sinusitis J01.00 and Chronic pain G89.29 [facility] [address], [place] [address] Jun, [facility] [address], [place] [address] May, Rheumatoid arthritis involving multiple sites with positive rheumatoid factor M05.79 [facility] [address], [place] [address] May, Chronic pain G89.29 [facility] [id number] [place] [address] May, [place] [address], [place] [address] May, [facility] [address] [place] [address] May, [place] [address] [place] [address] May, Type 2 diabetes mellitus with diabetic neuropathy, unspecified E11.40 [place] [address] [place] [address] May, Type 2 diabetes mellitus with diabetic neuropathy, unspecified E11.40 ; Emphysema, unspecified J43.9 ; Hypertension I10 ; Hyperlipemia E78.5 ; Vitamin D deficiency E55.9 ; Right medial knee pain M25.561 ; Controlled substance agreement signed Z79.899 ; Chronic pain G89.29 ; Allergic rhinitis J30.9 ; Anxiety associated with depression F41.8 ; Neuropathy G62.9 and Gastro- esophageal reflux disease without esophagitis K21.9 [facility] [address] [place] [address] Apr, Chronic pain G89.29 [facility] [place] [address] [place] [address] 16 Apr, 2017 Other hammer toe(s) (acquired), left foot M20.42 ; Other hammer toe(s) (acquired), right foot M20.41 ; Type 2 diabetes mellitus with diabetic neuropathy, unspecified E11.40 and Onychomycosis B35.1 [facility] [address] [place] [address] 2017 Gastro-esophageal reflux disease without esophagitis K21.9 [facility] [place] [address] [place] [address] Apr, Controlled substance agreement signed Z79.899 [facility] [place] [address] [place] [address] Mar, Chronic pain G89.29 [facility] [address] [place] [address] Mar, Emphysema, unspecified J43.9 and Type 2 diabetes mellitus with diabetic neuropathy, unspecified E11.40 [facility] [address] [place] [address] Mar, Dysuria R30.0 ; Vaginal candidiasis B37.3 and Acute nonintractable headache, unspecified headache type R51 [facility] [address] [place] [address] Feb, Neuropathy G62.9 and Chronic pain G89.29 [place] [address] [address] Feb, Gastro-esophageal reflux disease without esophagitis K21.9 [place] [address] [address] Feb, [facility] [address] [place] [address] Feb, Rheumatoid arthritis involving multiple sites with positive rheumatoid factor M05.79 and COPD with acute exacerbation J44.1 [place] [address] [place] [address] Feb, Vaginal odor N89.8 ; Vaginal irritation N89.8 ; Candidal dermatitis B37.2 and Screening breast examination Z12.31 [place] [address] [place] [address] Feb, [place] [address] [place] [address] Feb, [place] [address] [place] [address] Feb, [place] [address] [place] [address] Feb, COPD with exacerbation J44.1 ; Tobacco abuse counseling Z71.6 ; Tobacco abuse Z72.0 ; Rheumatoid arthritis involving multiple sites with positive rheumatoid factor M05.79 and Hyperlipemia E78.5 [facility] [address] [address] Feb, [facility] [id number] [place] [id number] Jan, [place] [address] [address] Jan, Chronic pain G89.29 [facility] [address] [id number] Jan, Dental examination Z01.20 [facility] [address] [address] Jan, Back pain of lumbar region with sciatica M54.40 [facility] [address] [address] 15 Jan, 2017 Acute bacterial conjunctivitis of both eyes H10.33 [place] [address] [address] 02 Jan, 2017 Chronic pain G89.29 [place] [address] [address] Dec, Type 2 diabetes mellitus with diabetic neuropathy, unspecified E11.40 ; Hypertension I10 ; Hyperlipemia E78.5 ; Gastro-esophageal reflux disease without esophagitis K21.9 ; Anxiety associated with depression F41.8 ; Allergic rhinitis J30.9 ; Neuropathy G62.9 and Dependence on nocturnal oxygen therapy Z99.81 [place] [address] [place] [address] Dec, [place] [address] [address] Dec, [place] [address] [address] Dec, Encounter for immunization Z23 [facility] [place] [address] [place] [address] 05 Dec, 2016 Type 2 diabetes mellitus with diabetic neuropathy, unspecified E11.40 and Chronic pain G89.29 [facility] [address] [place] [address] 11 Nov, 2016 Gastro-esophageal reflux disease without esophagitis K21.9 [facility] [address] [address] 11 Nov, 2016 Peripheral edema R60.9 and Chest pain in adult R07.9 [facility] [address] [address] 07 Nov, 2016 Chronic pain G89.29 [facility] [address] [address] 31 Oct, 2016 [place] [address] [address] 30 Oct, 2016 [facility] [address] [address] 17 Oct, 2016 Rheumatoid arthritis with rheumatoid factor of right wrist without organ or systems involvement M05.731 [facility] [address] [place] [address] 15 Oct, 2016 [facility] [address] [place] [address] 14 Oct, 2016 Acute exacerbation of chronic obstructive pulmonary disease (COPD) J44.1 and Canker sore K12.0 [facility] [address] [place] [address] 14 Oct, 2016 [facility] [address] [address] 10 Oct, 2016 [facility] [address] [place] [address] 09 Oct, 2016 Chronic pain G89.29 [facility] [address] [id number] Oct, Dental examination Z01.20 [facility] [address], [place] [address] Oct, Dental examination Z01.20 and Periodontitis K05.30 [facility] [address] [address] Oct, Dental examination Z01.20 [facility] [address] [place] [address] Sep, Abscess L02.91 [facility] [address] [place] [address] Sep, Dental examination Z01.20 [facility] [address] [place] [address] Sep, [facility] [address] [place] [id number] Sep, Dental examination Z01.20 and Dental caries K02.9 [facility] [address] [place] [address] Sep, Primary insomnia F51.01 and Anxiety associated with depression F41.8 [facility] [place] [address] [place] [address] Sep, Rheumatoid arthritis with rheumatoid factor of right wrist without organ or systems involvement M05.731 [facility] [place] [address] [place] [address] Sep, Chronic pain G89.29 [facility] [place] [address] [place] [address] Sep, Type 2 diabetes mellitus with diabetic neuropathy, unspecified E11.40 ; Emphysema, unspecified J43.9 ; Gastro-esophageal reflux disease without esophagitis K21.9 ; Hypertension I10 ; Hyperlipemia E78.5 ; Anxiety associated with depression F41.8 ; Chronic pain G89.29 ; Vitamin D deficiency E55.9 and Primary insomnia F51.01 [facility] [place] [address] [place] [address] 16 Aug, 2016 Anxiety associated with depression F41.8 [facility] [place] [address] [place] [address] 13 Aug, 2016 Chronic pain G89.29 and Neuropathy G62.9 [facility] [address] [place] [address] Aug, Type 2 diabetes mellitus with diabetic neuropathy, unspecified E11.40 ; Rheumatoid arthritis involving multiple sites with positive rheumatoid factor M05.79 ; Vitamin D deficiency E55.9 ; Anxiety associated with depression F41.8 and Primary insomnia F51.01 [facility] [place] [address] [place] [address] July, Emphysema, unspecified J43.9 [facility] [place] [address] [place] [address] July, Allergic rhinitis J30.9 [facility] [place] [address] [place] [address] July, Allergic rhinitis J30.9 ; Emphysema, unspecified J43.9 and Rheumatoid arthritis with rheumatoid factor of right wrist without organ or systems involvement M05.731 [facility] [place] [address] [place] [address] July, Neuropathy G62.9 and Chronic pain G89.29 [facility] [place] [address] [place] [address] July, Rheumatoid arthritis involving multiple sites with positive rheumatoid factor M05.79 [facility] [address] [place] [address] Jun, [facility] [place] [address] [place] [address] Jun, Neuropathy G62.9 and Chronic pain G89.29 [facility] [place] [address] [place] [address] May, Neuropathy G62.9 and Chronic pain G89.29 [facility] [place] [address] [place] [address] May, [place] [address] [place] [address] May, [facility] [address] [place] [address] May, Type 2 diabetes mellitus with diabetic [...] system involvement with positive rheumatoid factor M05.732 [facility] [address] [place] [address] Apr, Chronic pain G89.29 [facility] [place] [address] [place] [address] Mar, Gastro-esophageal reflux disease without esophagitis K21.9 [facility] [address] [place] [address] Mar, [facility] [place] [address] [place] [address] Mar, Rheumatoid arthritis with rheumatoid factor of right wrist without organ or systems involvement M05.731 [facility] [address] [place] [address] Mar, Chronic pain G89.29 [facility] [address] [place] [address] Feb, Hyperlipemia E78.5 [facility] [address] [address] Feb, Abnormal breath sounds R06.89 ; COPD with exacerbation J44.1 and Fatigue, unspecified type R53.83 [facility] [address] [place] [address] Feb, Neuropathy G62.9 ; Abnormal lung sounds R09.89 and Bronchitis J40 [facility] [address] [place] [address] Feb, Bronchitis J40 [place] [address] [address] Feb, Chronic pain G89.29 [place] [address] [address] Jan, Type 2 diabetes mellitus with diabetic neuropathy, unspecified E11.40 ; Rheumatoid arthritis with rheumatoid factor of right wrist without organ or systems involvement M05.731 and Hyperlipemia E78.5 [place] [address] [address] Jan, Rheumatoid arthritis with rheumatoid factor of right wrist without organ or systems involvement M05.731 [place] [address] [address] Jan, De Quervain's disease (radial styloid tenosynovitis) M65.4 ; Closed nondisplaced fracture of scaphoid of left wrist, unspecified portion of scaphoid, initial encounter S62.002A and Peripheral tear of medial meniscus of left knee, unspecified whether old or current tear, initial encounter S83.222A [facility] [place] [address] [place] [address] Jan, Hypertension I10 ; Type 2 diabetes mellitus with diabetic neuropathy, unspecified E11.40 ; Hyperlipemia E78.5 ; Allergic rhinitis J30.9 ; Neuropathy G62.9 ; Rheumatoid arthritis with rheumatoid factor of right wrist without organ or systems involvement M05.731 ; Acute non-recurrent maxillary sinusitis J01.00 and Chronic pain G89.29 [facility] [place] [address] [place] [address] Dec, [place] [place] [address] [place] [address] Dec, [place] [place] [address] [place] [address] Dec, Type 2 diabetes mellitus with diabetic neuropathy, unspecified E11.40 ; Emphysema, unspecified J43.9 ; Gastro-esophageal reflux disease without esophagitis K21.9 ; Hypertension I10 ; Hyperlipemia E78.5 ; Rheumatoid arthritis with rheumatoid factor of right wrist without organ or systems involvement M05.731 ; Elevated white blood cell count, unspecified D72.829 ; Acute non- recurrent frontal sinusitis J01.10 and Chronic pain G89.29 [place] [place] [address] [place] [address] Nov, [place] [address] [place] [address] Nov, Elevated white blood cell count, unspecified D72.829 ; Encounter for immunization Z23 ; Rheumatoid arthritis with rheumatoid factor of right wrist without organ or systems involvement M05.731 ; Injury of left hand S69.92XA ; Pain in left knee M25.562 and Other chronic pain G89.29 [place] [address] [place] [address] Nov, [facility] [place] [address] [place] [address] Nov, [facility] [place] [address] [place] [address] Oct, [place] [place] [address] [place] [address] Oct, Hyperlipemia E78.5 [facility] [address] [place] [address] Oct, [facility] [address] [place] [address] Oct, Type 2 diabetes mellitus with diabetic neuropathy, unspecified E11.40 ; Neuropathy G62.9 ; Hypertension I10 ; Chronic pain G89.29 and Hyperlipemia E78.5 [facility] [address] [place] [address] Oct, Emphysema, unspecified J43.9 and Rheumatoid arthritis of left wrist without organ or system involvement with positive rheumatoid factor M05.732 [facility] [address] [place] [address] Sep, Chronic pain syndrome G89.4 [facility] [address] [place] [address] Sep, [place] [place] [address] [place] [address] Sep, [place] [address] [place] [address] Sep, Closed nondisplaced fracture of scaphoid of left wrist, unspecified portion of scaphoid, initial encounter S62.002A [facility] [address] [place] [address] Sep, Type 2 diabetes mellitus with diabetic neuropathy, unspecified E11.40 ; Hypertension I10 ; Hyperlipemia E78.5 and Acute non-recurrent maxillary sinusitis J01.00 [facility] [address] [place] [address] Sep, [place] [place] [address] [place] [address] Sep, [place] [address] [place] [address] Sep, [place] [address] [place] [address] Sep, [place] [address] [place] [address] Aug, Epigastric pain R10.13 and Right upper quadrant pain R10.11 [facility] [address] [place] [address] Aug, Closed nondisplaced fracture of scaphoid of left wrist, unspecified portion of scaphoid, initial encounter S62.002A [facility] [address] [place] [address] Aug, [place] [facility] [address] [place] [address] Aug, [facility] [address] [place] [address] Aug, Shortness of breath R06.02 ; Epigastric pain R10.13 and Injury of left lower arm, initial encounter S59.912A [place] [address] [place] [address] Aug, Coronary artery disease involving [place] heart with angina pectoris, unspecified vessel or lesion type I25.119 ; Pulmonary emphysema, unspecified emphysema type J43.9 and Snoring R06.83 [facility] [address] [place] [address] Aug, [place] [address] [place] [address] Aug, Emphysema, unspecified J43.9 ; Atherosclerotic heart disease of [place] coronary artery without angina pectoris I25.10 and Hypertension I10 [facility] [address] [place] [address] July, [place] [facility] [address] [place] [address] July, Closed nondisplaced fracture of scaphoid of left wrist, unspecified portion of scaphoid, initial encounter S62.002A [place] [address] [place] [address] July, [place] [address] [place] [address] July, Type 2 diabetes mellitus with diabetic neuropathy, unspecified E11.40 ; Emphysema, unspecified J43.9 ; Atherosclerotic heart disease of [place] coronary artery without angina pectoris I25.10 ; [...] agents L24.89 and Hospital discharge follow-up Z09 [place] [address] [place] [address] July, [place] [address] [place] [address] July, Type 2 diabetes mellitus with diabetic neuropathy, unspecified E11.40 [facility] [address] [place] [address] July, Type 2 diabetes mellitus with diabetic neuropathy, unspecified E11.40 and Rheumatoid arthritis of left wrist without organ or system involvement with positive rheumatoid factor M05.732 [facility] [id number] [place] [id number] July, [place] [id number] [place] [phone] July[address] [place] [id number] [place] [id number] Jun, [place] [id number] [place] [id number] Jun, [place] [id number] [place] [id number] Jun, 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 [place] [address] [place] [id number] [place] [address] Jun, [place] [id number] [place] [address] Jun, 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 [place] [address] [place] [id number] [place] [address] Jun, [place] [address] [place] [id number] [place] [address] Jun, [place] [address] [address] Jun, Encounter for PPD test Z11.1 ; Rheumatoid arthritis with rheumatoid factor of right wrist without organ or systems involvement M05.731 and Rheumatoid arthritis of left wrist without organ or system involvement with positive rheumatoid factor M05.732 [place] [address] [place] [address] [id number] [place] [address] Jun, Type 2 diabetes mellitus with diabetic neuropathy, unspecified E11.40 [place] [address] [place] [address] [id number] [place] [address] May, Type 2 diabetes mellitus with diabetic neuropathy, unspecified E11.40 ; Emphysema, unspecified J43.9 ; Rheumatoid arthritis with rheumatoid factor of right wrist without organ or systems involvement M05.731 ; Rheumatoid arthritis of left wrist without organ or system involvement with positive rheumatoid factor M05.732 and Chronic pain G89.29 [place] [address] [place] [address] [id number] [place] [address] May, [place] [address] [place] [address] [id number] [place] [address] May, Swelling of hand joint M25.449 ; Ankle swelling M25.473 and Joint pain M25.50 [place] [id number] [place] [address] May, Emphysema, unspecified J43.9 [place] [address] [place] [address] [id number] [place] [address] 10 May, 2015 Hypertension I10 and Gastroenteritis K52.9 [place] [address] [place] [address] [id number] [place] [address] Apr, [place] [address] [address] Apr, [place] [address] [address] Apr, [place] [address] [address] Apr, Type 2 diabetes mellitus with diabetic neuropathy, unspecified E11.40 ; Emphysema, unspecified J43.9 ; Atherosclerotic heart disease of [place] coronary artery without angina pectoris I25.10 ; Migraine without aura, not intractable, with status migrainosus G43.001 ; Gastro-esophageal reflux disease without esophagitis K21.9 ; CAD (coronary artery disease) I25.10 ; Hypertension I10 ; Hyperlipemia E78.5 ; Allergic rhinitis J30.9 ; Neuropathy G62.9 ; Anxiety associated with depression F41.8 and Injury of left hand S69.92XA [address] [address] Apr, [address] [address] Apr, [place] [address] [place] [address] [id number] [place] [address] Apr, Type 2 diabetes mellitus with diabetic neuropathy, unspecified E11.40 ; Emphysema, unspecified J43.9 ; Essential (primary) hypertension I10 ; Atherosclerotic heart disease of [place] coronary artery without angina pectoris I25.10 ; Gastro-esophageal reflux disease without esophagitis K21.9 ; CAD (coronary artery disease) I25.10 ; Hyperlipemia E78.5 ; Hypertension I10 ; History of solitary pulmonary nodule Z87.898 ; Allergic rhinitis J30.9 ; Chronic pain G89.29 and Depression with anxiety F41.[address] [address] Mar, [place] [address] [place] [address] [id number] [place] [address] Mar, Allergic rhinitis J30.9 ; URI (upper respiratory infection) J06.9 and Other viral agents as the cause of diseases classified elsewhere B97.89 [facility] [address] [address] Feb, Acute nasopharyngitis [common cold] J00 and Acute diarrhea R19.7 [place] [address] [address] Feb, Depression F32.[address] [address] Jan, Otitis media, right H66.[address] [address] Jan, [place] [address] [address] Jan, Type 2 diabetes mellitus with diabetic neuropathy, unspecified E11.[address] [address] Jan, [place] [address] [address] Jan, Hyperlipemia E78.5 [place] [address] [address] Jan, Type 2 diabetes mellitus with diabetic neuropathy, unspecified E11.40 ; Emphysema, unspecified J43.9 ; CAD (coronary artery disease) I25.10 and Hyperlipemia E78.5 [place] [address] [address] Dec, Allergic rhinitis J30.9 and Fungal infection B49 [place] [address] [address] Dec, [place] [address] [place] [id number] [place] [address] Dec, [address] [address] Dec, Chest pain R07.9 ; CAD (coronary artery disease) I25.10 ; Hypertension I10 and Hyperlipemia E78.[address] [address] Dec, Pain in thoracic spine M54.6 ; Gastro-esophageal reflux disease without esophagitis K21.9 ; Emphysema, unspecified J43.9 and Migraine without aura, not intractable, with status migrainosus G43.[address] [address] Dec, [place] [address] [address] Nov, Influenza vaccine administered V04.81 [place] [address] [address] Nov, [address] [address] Sep, [place] [address] [address] Sep, [address] [address] Sep, CAD (coronary artery disease) 414.00 and Diabetes type 2, uncontrolled 250.02 [place] [address] [place] [id number] [place] [address] Sep, CAD (coronary artery disease) 414.00 ; Diabetes type 2, uncontrolled 250.02 and Migraine 346.90 IMMUNIZATIONS No Known Immunizations SOCIAL HISTORY Never Assessed REASON FOR VISIT pharmacy change PLAN OF CARE VITAL SIGNS MEDICATIONS Medication Instructions Dosage Frequency Start Date End Date Duration Status Glucocard Expression Test - In Vitro 4 times a 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 test blood sugar May, Active RESULTS No Results PROCEDURES No [...] unspecified Medical History Atherosclerotic heart disease of [place] coronary artery without angina pectoris Medical History [...]
--- OUTSIDE RECORDS SUMMARY | 2018-08-23 17:15 | XMS REPORT ---
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 Active 265517949941095 Problem Vitamin D deficiency E55.9 Active 11271397 Problem Hammer toe of left foot M20.42 Active 616989350 Problem Other hammer toe(s) (acquired), left foot M20.42 Active 89694964 Problem Dependence on nocturnal oxygen therapy Z99.81 Active 78100530176097 Problem Tobacco abuse Z72.0 Active 400640952 Problem Other hammer toe(s) (acquired), right foot M20.41 Active 783713286 Problem Gastro-esophageal reflux disease without esophagitis K21.9 Active 885833598 Problem Emphysema, unspecified J43.9 Active 68603565 Problem Hypertension I10 Active 11788865 Problem Hyperlipemia E78.5 Active 89861916 Problem Anxiety associated with depression F41.8 Active 567214367 Problem Chronic pain G89.29 Active 53842704 Problem Type 2 diabetes mellitus with diabetic neuropathy, unspecified E11.40 Active 64535045 Problem OAB (overactive bladder) N32.81 Active 371328543 Problem Allergic rhinitis J30.9 Active 94605099 Problem Rheumatoid arthritis involving multiple sites with positive rheumatoid factor M05.79 Active 998950129 ALLERGIES No Information ENCOUNTERS Encounter Location Date Diagnosis [facility] [address] [facility] [id number] [address] Oct, [facility] [address] [facility] [id number] [place] [address] Sep, [facility] [id number] [place] [address] Aug, Type 2 diabetes mellitus with diabetic neuropathy, unspecified E11.40 ; Hypertension I10 ; Hyperlipemia E78.5 ; Gastro-esophageal reflux disease without esophagitis K21.9 ; Emphysema, unspecified J43.9 ; Anxiety associated with depression F41.8 ; Vitamin D deficiency E55.9 ; Chronic pain G89.29 ; Tobacco abuse Z72.0 ; Overweight (BMI 25.0-29.9) E66.3 ; 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 ; OAB (overactive bladder) N32.81 and Primary insomnia F51.01 [facility] [id number] [place] [address] July, [facility] [place] [id number] [place] [address] July, [facility] [place] [id number] [place] [address] July, Chronic pain G89.29 [facility] [place] [id number] [place] [address] July, [facility] [id number] [place] [address] July, Onychomycosis B35.1 ; Hammer toe of left foot M20.42 and Type 2 diabetes mellitus with diabetic neuropathy, unspecified E11.40 [facility] [id number] [place] [address] July, [facility] [address] [address] July, Chronic pain G89.29 and Neuropathy G62.9 [facility] [place] [id number] [place] [address] July, [facility] [place] [id number] [place] [address] July, [facility] [address] [address] Jun, [facility] [id number] [place] [address] Jun, Chronic pain G89.29 [facility] [id number] [place] [address] Jun, [facility] [id number] [place] [address] Jun, [facility] [id number] [place] [address] Jun, Visit for TB skin test Z11.1 [facility] [id number] [place] [address] 16 Jun, 2017 [facility] [id number] [place] [address] Jun, [facility] [id number] [place] [address] Jun, Tobacco abuse Z72.0 and Rheumatoid arthritis involving multiple sites with positive rheumatoid factor M05.79 [facility] [address] [address] Jun, Anxiety F41.9 ; Acute non-recurrent maxillary sinusitis J01.00 and Chronic pain G89.29 [facility] [address] [address] Jun, [facility] [address] [address] May, Rheumatoid arthritis involving multiple sites with positive rheumatoid factor M05.79 [facility] [address] [address] May, Chronic pain G89.29 [facility] [id number] [place] [address] May, [facility] [place] [address] [address] May, [facility] [place] [id number] [place] [address] May, [facility] [place] [id number] [place] [address] May, Type 2 diabetes mellitus with diabetic neuropathy, unspecified E11.40 [facility] [place] [address] [place] [address] May, Type 2 diabetes mellitus with diabetic neuropathy, unspecified E11.40 ; Emphysema, unspecified J43.9 ; Hypertension I10 ; Hyperlipemia E78.5 ; Vitamin D deficiency E55.9 ; Right medial knee pain M25.561 ; Controlled substance agreement signed Z79.899 ; Chronic pain G89.29 ; Allergic rhinitis J30.9 ; Anxiety associated with depression F41.8 ; Neuropathy G62.9 and Gastro- esophageal reflux disease without esophagitis K21.9 [facility] [place] [id number] [place] [address] Apr, Chronic pain G89.29 [facility] [place] [id number] [place] [address] 16 Apr, 2017 Other hammer toe(s) (acquired), left foot M20.42 ; Other hammer toe(s) (acquired), right foot M20.41 ; Type 2 diabetes mellitus with diabetic neuropathy, unspecified E11.40 and Onychomycosis B35.1 [facility] [place] [id number] [place] [address] 2017 Gastro-esophageal reflux disease without esophagitis K21.9 [facility] [id number] [place] [address] Apr, Controlled substance agreement signed Z79.899 [facility] [id number] [place] [address] Mar, Chronic pain G89.29 [facility] [id number] [place] [address] Mar, Emphysema, unspecified J43.9 and Type 2 diabetes mellitus with diabetic neuropathy, unspecified E11.40 [facility] [id number] [place] [address] Mar, Dysuria R30.0 ; Vaginal candidiasis B37.3 and Acute nonintractable headache, unspecified headache type R51 [facility] [id number] [place] [address] Feb, Neuropathy G62.9 and Chronic pain G89.29 [facility] [address] [address] Feb, Gastro-esophageal reflux disease without esophagitis K21.9 [facility] [address] [address] Feb, [facility] [id number] [place] [address] Feb, Rheumatoid arthritis involving multiple sites with positive rheumatoid factor M05.79 and COPD with acute exacerbation J44.1 [facility] [place] [id number] [place] [address] Feb, Vaginal odor N89.8 ; Vaginal irritation N89.8 ; Candidal dermatitis B37.2 and Screening breast examination Z12.31 [facility] [place] [id number] [place] [address] Feb, [facility] [place] [id number] [place] [address] Feb, [facility] [place] [id number] [place] [address] Feb, [facility] [place] [id number] [place] [address] Feb, COPD with exacerbation J44.1 ; Tobacco abuse counseling Z71.6 ; Tobacco abuse Z72.0 ; Rheumatoid arthritis involving multiple sites with positive rheumatoid factor M05.79 and Hyperlipemia E78.5 [facility] [address] [address] Feb, [facility] [id number] [place] [id number] Jan, [place] [address] [address] Jan, Chronic pain G89.29 [facility] [address] [id number] Jan, Dental examination Z01.20 [facility] [address] [address] Jan, Back pain of lumbar region with sciatica M54.40 [facility] [address] [address] 15 Jan, 2017 Acute bacterial conjunctivitis of both eyes H10.33 [facility] [address] [address] 02 Jan, 2017 Chronic pain G89.29 [facility] [place] [address] [address] Dec, Type 2 diabetes mellitus with diabetic neuropathy, unspecified E11.40 ; Hypertension I10 ; Hyperlipemia E78.5 ; Gastro-esophageal reflux disease without esophagitis K21.9 ; Anxiety associated with depression F41.8 ; Allergic rhinitis J30.9 ; Neuropathy G62.9 and Dependence on nocturnal oxygen therapy Z99.81 [facility] [place] [id number] [place] [address] Dec, [facility] [place] [address] [address] Dec, [facility] [address] [address] Dec, Encounter for immunization Z23 [facility] [place] [id number] [place] [address] 05 Dec, 2016 Type 2 diabetes mellitus with diabetic neuropathy, unspecified E11.40 and Chronic pain G89.29 [facility] [id number] [place] [address] 11 Nov, 2016 Gastro-esophageal reflux disease without esophagitis K21.9 [facility] [address] [address] 11 Nov, 2016 Peripheral edema R60.9 and Chest pain in adult R07.9 [facility] [address] [address] 07 Nov, 2016 Chronic pain G89.29 [facility] [address] [address] 31 Oct, 2016 [place] [address] [address] 30 Oct, 2016 [facility] [address] [address] 17 Oct, 2016 Rheumatoid arthritis with rheumatoid factor of right wrist without organ or systems involvement M05.731 [facility] [id number] [place] [address] 15 Oct, 2016 [facility] [id number] [place] [address] 14 Oct, 2016 Acute exacerbation of chronic obstructive pulmonary disease (COPD) J44.1 and Canker sore K12.0 [facility] [id number] [place] [address] 14 Oct, 2016 [facility] [address] [address] 10 Oct, 2016 [facility] [id number] [place] [address] 09 Oct, 2016 Chronic pain G89.29 [facility] [address] [id number] Oct, Dental examination Z01.20 [facility] [address], [place] [address] Oct, Dental examination Z01.20 and Periodontitis K05.30 [facility] [address] [id number] Oct, Dental examination Z01.20 [facility] [id number] [place] [address] Sep, Abscess L02.91 [facility] [id number] [place] [address] Sep, Dental examination Z01.20 [facility] [id number] [place] [address] Sep, [facility] [id number] [place] [id number] Sep, Dental examination Z01.20 and Dental caries K02.9 [facility] [id number] [place] [address] Sep, Primary insomnia F51.01 and Anxiety associated with depression F41.8 [facility] [id number] [place] [address] Sep, Rheumatoid arthritis with rheumatoid factor of right wrist without organ or systems involvement M05.731 [facility] [address] [place] [address] Sep, Chronic pain G89.29 [facility] [place] [id number] [place] [address] Sep, Type 2 diabetes mellitus with diabetic neuropathy, unspecified E11.40 ; Emphysema, unspecified J43.9 ; Gastro-esophageal reflux disease without esophagitis K21.9 ; Hypertension I10 ; Hyperlipemia E78.5 ; Anxiety associated with depression F41.8 ; Chronic pain G89.29 ; Vitamin D deficiency E55.9 and Primary insomnia F51.01 [facility] [place] [id number] [place] [address] 16 Aug, 2016 Anxiety associated with depression F41.8 [facility] [id number] [place] [address] 13 Aug, 2016 Chronic pain G89.29 and Neuropathy G62.9 [facility] [id number] [place] [address] Aug, Type 2 diabetes mellitus with diabetic neuropathy, unspecified E11.40 ; Rheumatoid arthritis involving multiple sites with positive rheumatoid factor M05.79 ; Vitamin D deficiency E55.9 ; Anxiety associated with depression F41.8 and Primary insomnia F51.01 [facility] [place] [id number] [place] [address] July, Emphysema, unspecified J43.9 [facility] [place] [id number] [place] [address] July, Allergic rhinitis J30.9 [facility] [id number] [place] [address] July, Allergic rhinitis J30.9 ; Emphysema, unspecified J43.9 and Rheumatoid arthritis with rheumatoid factor of right wrist without organ or systems involvement M05.731 [facility] [id number] [place] [address] July, Neuropathy G62.9 and Chronic pain G89.29 [facility] [id number] [place] [address] July, Rheumatoid arthritis involving multiple sites with positive rheumatoid factor M05.79 [facility] [id number] [place] [address] Jun, [facility] [id number] [place] [address] Jun, Neuropathy G62.9 and Chronic pain G89.29 [facility] [id number] [place] [address] May, Neuropathy G62.9 and Chronic pain G89.29 [facility] [id number] [place] [address] May, [facility] [id number] [place] [address] May, [facility] [place] [id number] [place] [address] May, Type 2 diabetes mellitus with diabetic [...] system involvement with positive rheumatoid factor M05.732 [facility] [id number] [place] [address] Apr, Chronic pain G89.29 [facility] [id number] [place] [address] Mar, Gastro-esophageal reflux disease without esophagitis K21.9 [facility] [id number] [place] [address] Mar, [facility] [id number] [place] [address] Mar, Rheumatoid arthritis with rheumatoid factor of right wrist without organ or systems involvement M05.731 [facility] [id number] [place] [address] Mar, Chronic pain G89.29 [facility] [id number] [place] [address] Feb, Hyperlipemia E78.5 [facility] [address] [address] Feb, Abnormal breath sounds R06.89 ; COPD with exacerbation J44.1 and Fatigue, unspecified type R53.83 [facility] [id number] [place] [address] Feb, Neuropathy G62.9 ; Abnormal lung sounds R09.89 and Bronchitis J40 [facility] [id number] [place] [address] Feb, Bronchitis J40 [facility] [address] [address] Feb, Chronic pain G89.29 [facility] [address] [address] Jan, Type 2 diabetes mellitus with diabetic neuropathy, unspecified E11.40 ; Rheumatoid arthritis with rheumatoid factor of right wrist without organ or systems involvement M05.731 and Hyperlipemia E78.5 [facility] [place] [address] [address] Jan, Rheumatoid arthritis with rheumatoid factor of right wrist without organ or systems involvement M05.731 [facility] [place] [address] [address] Jan, De Quervain's disease (radial styloid tenosynovitis) M65.4 ; Closed nondisplaced fracture of scaphoid of left wrist, unspecified portion of scaphoid, initial encounter S62.002A and Peripheral tear of medial meniscus of left knee, unspecified whether old or current tear, initial encounter S83.222A [facility] [id number] [place] [address] Jan, Hypertension I10 ; Type 2 diabetes mellitus with diabetic neuropathy, unspecified E11.40 ; Hyperlipemia E78.5 ; Allergic rhinitis J30.9 ; Neuropathy G62.9 ; Rheumatoid arthritis with rheumatoid factor of right wrist without organ or systems involvement M05.731 ; Acute non-recurrent maxillary sinusitis J01.00 and Chronic pain G89.29 [facility] [address] [place] [address] Dec, [facility] [id number] [place] [address] Dec, [facility] [id number] [place] [address] Dec, Type 2 diabetes mellitus with diabetic neuropathy, unspecified E11.40 ; Emphysema, unspecified J43.9 ; Gastro-esophageal reflux disease without esophagitis K21.9 ; Hypertension I10 ; Hyperlipemia E78.5 ; Rheumatoid arthritis with rheumatoid factor of right wrist without organ or systems involvement M05.731 ; Elevated white blood cell count, unspecified D72.829 ; Acute non- recurrent frontal sinusitis J01.10 and Chronic pain G89.29 [facility] [id number] [place] [address] Nov, [facility] [place] [id number] [place] [address] Nov, Elevated white blood cell count, unspecified D72.829 ; Encounter for immunization Z23 ; Rheumatoid arthritis with rheumatoid factor of right wrist without organ or systems involvement M05.731 ; Injury of left hand S69.92XA ; Pain in left knee M25.562 and Other chronic pain G89.29 [facility] [address] [place] [address] Nov, [facility] [id number] [place] [address] Nov, [facility] [id number] [place] [address] Oct, [facility] [id number] [place] [address] Oct, Hyperlipemia E78.5 [facility] [address] [place] [address] Oct, [facility] [id number] [place] [address] Oct, Type 2 diabetes mellitus with diabetic neuropathy, unspecified E11.40 ; Neuropathy G62.9 ; Hypertension I10 ; Chronic pain G89.29 and Hyperlipemia E78.5 [facility] [id number] [place] [address] Oct, Emphysema, unspecified J43.9 and Rheumatoid arthritis of left wrist without organ or system involvement with positive rheumatoid factor M05.732 [facility] [id number] [place] [address] Sep, Chronic pain syndrome G89.4 [facility] [id number] [place] [address] Sep, [facility] [id number] [place] [address] Sep, [facility] [id number] [place] [address] Sep, Closed nondisplaced fracture of scaphoid of left wrist, unspecified portion of scaphoid, initial encounter S62.002A [facility] [id number] [place] [address] Sep, Type 2 diabetes mellitus with diabetic neuropathy, unspecified E11.40 ; Hypertension I10 ; Hyperlipemia E78.5 and Acute non-recurrent maxillary sinusitis J01.00 [facility] [id number] [place] [address] Sep, [facility] [id number] [place] [address] Sep, [facility] [id number] [place] [address] Sep, [facility] [address] [place] [address] Sep, [facility] [id number] [place] [address] Aug, Epigastric pain R10.13 and Right upper quadrant pain R10.11 [facility] [id number] [place] [address] Aug, Closed nondisplaced fracture of scaphoid of left wrist, unspecified portion of scaphoid, initial encounter S62.002A [facility] [id number] [place] [address] Aug, [facility] [id number] [place] [address] Aug, [facility] [id number] [place] [address] Aug, Shortness of breath R06.02 ; Epigastric pain R10.13 and Injury of left lower arm, initial encounter S59.912A [facility] [place] [id number] [place] [address] Aug, Coronary artery disease involving eek heart with angina pectoris, unspecified vessel or lesion type I25.119 ; Pulmonary emphysema, unspecified emphysema type J43.9 and Snoring R06.83 [facility] [id number] [place] [address] Aug, [facility] [address] [place] [address] Aug, Emphysema, unspecified J43.9 ; 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 and Hypertension I10 [facility] [id number] [place] [address] July, [facility] [id number] [place] [address] July, Closed nondisplaced fracture of scaphoid of left wrist, unspecified portion of scaphoid, initial encounter S62.002A [facility] [id number] [place] [address] July, [place] [address] [place] [address] July, Type 2 diabetes mellitus with diabetic neuropathy, unspecified E11.40 ; Emphysema, unspecified J43.9 ; 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 ; [...] agents L24.89 and Hospital discharge follow-up Z09 [facility] [id number] [place] [address] July, [facility] [id number] [place] [address] July, Type 2 diabetes mellitus with diabetic neuropathy, unspecified E11.40 [facility] [id number] [place] [address] July, Type 2 diabetes mellitus with diabetic neuropathy, unspecified E11.40 and Rheumatoid arthritis of left wrist without organ or system involvement with positive rheumatoid factor M05.732 [facility] [id number] [place] [address] July, [facility] [id number] [place] [address] July, [facility] [id number] [place] [address] Jun, [facility] [id number] [place] [address] Jun, [place] [address] [id number] [place] [address] Jun, 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 [facility] [address] [place] [id number] [place] [phone] Jun, [facility] [id number] [place] [address] Jun, 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 [facility] [address] [place] [id number] [place] [address] Jun, [facility] [address] [place] [id number] [place] [address] Jun, [facility] [place] [address] [address] Jun, Encounter for PPD test Z11.1 ; Rheumatoid arthritis with rheumatoid factor of right wrist without organ or systems involvement M05.731 and Rheumatoid arthritis of left wrist without organ or system involvement with positive rheumatoid factor M05.732 [facility] [address] [place] [id number] [place] [address] Jun, Type 2 diabetes mellitus with diabetic neuropathy, unspecified E11.40 [facility] [address] [place] [id number] [place] [address] May, Type 2 diabetes mellitus with diabetic neuropathy, unspecified E11.40 ; Emphysema, unspecified J43.9 ; Rheumatoid arthritis with rheumatoid factor of right wrist without organ or systems involvement M05.731 ; Rheumatoid arthritis of left wrist without organ or system involvement with positive rheumatoid factor M05.732 and Chronic pain G89.29 [facility] [address] [id number] [place] [address] May, [facility] [address] [place] [id number] [place] [address] May, Swelling of hand joint M25.449 ; Ankle swelling M25.473 and Joint pain M25.50 [facility] [place] [id number] [place] [address] May, Emphysema, unspecified J43.9 [facility] [place] [address] [id number] [place] [address] 10 May, 2015 Hypertension I10 and Gastroenteritis K52.9 [facility] [address] [id number] [place] [address] Apr, [facility] [place] [address] [address] Apr, [facility] [place] [address] [address] Apr, [facility] [place] [address] [address] Apr, Type 2 diabetes mellitus with diabetic neuropathy, unspecified E11.40 ; Emphysema, unspecified J43.9 ; 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 ; Migraine without aura, not intractable, with status migrainosus G43.001 ; Gastro-esophageal reflux disease without esophagitis K21.9 ; CAD (coronary artery disease) I25.10 ; Hypertension I10 ; Hyperlipemia E78.5 ; Allergic rhinitis J30.9 ; Neuropathy G62.9 ; Anxiety associated with depression F41.8 and Injury of left hand S69.92XA [address] [address] Apr, [address] [address] Apr, [facility] [place] [address] [place] [id number] [place] [address] Apr, Type 2 diabetes mellitus with diabetic neuropathy, unspecified E11.40 ; Emphysema, unspecified J43.9 ; Essential (primary) hypertension I10 ; 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 ; Gastro-esophageal reflux disease without esophagitis K21.9 ; CAD (coronary artery disease) I25.10 ; Hyperlipemia E78.5 ; Hypertension I10 ; History of solitary pulmonary nodule Z87.898 ; Allergic rhinitis J30.9 ; Chronic pain G89.29 and Depression with anxiety F41.[address] [address] Mar, [facility] [place] [address] [id number] [place] [address] Mar, Allergic rhinitis J30.9 ; URI (upper respiratory infection) J06.9 and Other viral agents as the cause of diseases classified elsewhere B97.89 [facility] [address] [address] Feb, Acute nasopharyngitis [common cold] J00 and Acute diarrhea R19.7 [facility] [place] [address] [address] Feb, Depression F32.[address] [address] Jan, Otitis media, right H66.[address] [address] Jan, [facility] [place] [address] [address] Jan, Type 2 diabetes mellitus with diabetic neuropathy, unspecified E11.[address] [address] Jan, [facility] [place] [address] [address] Jan, Hyperlipemia E78.5 [facility] [place] [address] [address] Jan, Type 2 diabetes mellitus with diabetic neuropathy, unspecified E11.40 ; Emphysema, unspecified J43.9 ; CAD (coronary artery disease) I25.10 and Hyperlipemia E78.5 [facility] [place] [address] [address] Dec, Allergic rhinitis J30.9 and Fungal infection B49 [facility] [place] [address] [address] Dec, [facility] [place] [address] [place] [id number] [place] [address] Dec, [address] [address] Dec, Chest pain R07.9 ; CAD (coronary artery disease) I25.10 ; Hypertension I10 and Hyperlipemia E78.[address] [address] Dec, Pain in thoracic spine M54.6 ; Gastro-esophageal reflux disease without esophagitis K21.9 ; Emphysema, unspecified J43.9 and Migraine without aura, not intractable, with status migrainosus G43.[address] [address] Dec, [facility] [place] [address] [address] Nov, Influenza vaccine administered V04.[address] [address] Nov, [address] [address] Sep, [facility] [place] [address] [address] Sep, [address] [address] Sep, CAD (coronary artery disease) 414.00 and Diabetes type 2, uncontrolled 250.02 [facility] [place] [address] [id number] [place] [address] Sep, CAD (coronary artery disease) 414.00 ; Diabetes type 2, uncontrolled 250.02 and Migraine 346.90 IMMUNIZATIONS No Known Immunizations SOCIAL HISTORY Never Assessed REASON FOR VISIT med refill PLAN OF CARE VITAL SIGNS MEDICATIONS Medication [...] unspecified Medical History Atherosclerotic heart disease of eek coronary artery without angina pectoris Medical History [...]
--- OUTSIDE RECORDS SUMMARY | 2018-08-23 17:16 | XMS REPORT ---
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 Name Role Phone DELEONCLAU Moran Unavailable PROBLEMS Type Condition ICD9-CM Code EBY99-LE Code Onset Dates Condition Status SNOMED Code Problem Neuropathy G62.9 Active 839238577 Problem Other hammer toe(s) (acquired), right foot M20.41 Active 632676263 Problem Other hammer toe(s) (acquired), left foot M20.42 Active 68722852 Problem Anxiety F41.9 Active 94123817 Problem Type 2 diabetes mellitus with diabetic neuropathy, unspecified E11.40 Active 88276993 Problem Hammer toe of left foot M20.42 Active 273990059 Problem Hyperlipemia E78.5 Active 47871399 Problem Hypertension I10 Active 57813940 Problem COPD with exacerbation J44.1 Active 976610498741301 Problem Tobacco abuse Z72.0 Active 438924998 Problem COPD with acute exacerbation J44.1 Active 108362676 Problem Back pain of lumbar region with sciatica M54.40 Active 094589698 Problem Allergic rhinitis J30.9 Active 67217448 Problem Anxiety associated with depression F41.8 Active 521802027 Problem Gastro-esophageal reflux disease without esophagitis K21.9 Active 195585040 Problem Emphysema, unspecified J43.9 Active 56758753 Problem Rheumatoid arthritis involving multiple sites with positive rheumatoid factor M05.79 Active 175479182 Problem Primary insomnia F51.01 Active 3537517 Problem Chronic pain G89.29 Active 34791510 Problem Periodontitis K05.30 Active 95794786 Problem Vitamin D deficiency E55.9 Active 61412972 Problem OAB (overactive bladder) N32.81 Active 261160194 Problem Dependence on nocturnal oxygen therapy Z99.81 Active [id number] ALLERGIES Substance Reaction Event Type Date Status Sulfamethoxazole-Trimethoprim itching Drug Allergy Dec, Active Singulair dizziness Drug Allergy Dec, Active ENCOUNTERS Encounter Location Date Diagnosis [facility] [id number] [address] Oct, [facility] [id number] [place] [address] Aug, [facility] [id number] [place] [address] July, Chronic pain G89.29 [facility] [id number] [place] [address] July, [facility] [id number] [place] [address] July, Onychomycosis B35.1 ; Hammer toe of left foot M20.42 and Type 2 diabetes mellitus with diabetic neuropathy, unspecified E11.40 [facility] [id number] [place] [address] July, [facility] [id number] [place] [address] July, Chronic pain G89.29 and Neuropathy G62.9 [facility] [id number] [place] [address] July, [facility] [id number] [address] July, [facility] [id number] [place] [address] Jun, [facility] [id number] [address] Jun, Chronic pain G89.29 [facility] [id number] [place] [address] Jun, [facility] [id number] [address] Jun, [facility] [id number] [place] [address] 17 Jun, 2017 Visit for TB skin test Z11.1 [facility] [id number] [place] [address] 16 Jun, 2017 [facility] [id number] [place] [address] Jun, [facility] [id number] [place] [address] Jun, Tobacco abuse Z72.0 and Rheumatoid arthritis involving multiple sites with positive rheumatoid factor M05.79 [facility] [id number] [place] [address] Jun, Anxiety F41.9 ; Acute non-recurrent maxillary sinusitis J01.00 and Chronic pain G89.29 [facility] [id number] [place] [address] Jun, [facility] [id number] [place] [address] May, Rheumatoid arthritis involving multiple sites with positive rheumatoid factor M05.79 [facility] [id number] [place] [address] May, Chronic pain G89.29 [facility] [address] [address] May, [facility] [id number] [place] [address] May, [facility] [id number] [place] [address] May, [facility] [id number] [place] [address] May, Type 2 diabetes mellitus with diabetic neuropathy, unspecified E11.40 [facility] [address] [address] May, Type 2 diabetes mellitus with diabetic [...] reflux disease without esophagitis K21.9 [facility] [id number] [place] [address] Apr, Chronic pain G89.29 [facility] [address] [address] 16 Apr, 2017 Other hammer toe(s) (acquired), left foot M20.42 ; Other hammer toe(s) (acquired), right foot M20.41 ; Type 2 diabetes mellitus with diabetic neuropathy, unspecified E11.40 and Onychomycosis B35.1 [facility] [address] [address] 2017 Gastro-esophageal reflux disease without esophagitis K21.9 [facility] [id number] [place] [address] Apr, Controlled substance agreement signed Z79.899 [facility] [id number] [place] [address] Mar, Chronic pain G89.29 [facility] [id number] [place] [address] Mar, Emphysema, unspecified J43.9 and Type 2 diabetes mellitus with diabetic neuropathy, unspecified E11.40 [facility] [id number] [place] [address] Mar, Dysuria R30.0 ; Vaginal candidiasis B37.3 and Acute nonintractable headache, unspecified headache type R51 [facility] [id number] [place] [address] Feb, Neuropathy G62.9 and Chronic pain G89.29 [facility] [id number] [place] [address] Feb, Gastro-esophageal reflux disease without esophagitis K21.9 [facility] [id number] [place] [address] Feb, [facility] [id number] [place] [address] Feb, Rheumatoid arthritis involving multiple sites with positive rheumatoid factor M05.79 and COPD with acute exacerbation J44.1 [facility] [id number] [place] [address] Feb, Vaginal odor N89.8 ; Vaginal irritation N89.8 ; Candidal dermatitis B37.2 and Screening breast examination Z12.31 [facility] [address] [address] Feb, [facility] [address] [address] Feb, [facility] [id number] [place] [address] Feb, [facility] [id number] [place] [address] Feb, COPD with exacerbation J44.1 ; Tobacco abuse counseling Z71.6 ; Tobacco abuse Z72.0 ; Rheumatoid arthritis involving multiple sites with positive rheumatoid factor M05.79 and Hyperlipemia E78.5 [facility] [id number] [place] [address] Feb, [facility] [id number] [place] [id number] Jan, [facility] [id number] [place] [address] Jan, Chronic pain G89.29 [facility] [id number] [place] [id number] Jan, Dental examination Z01.20 [facility] [id number] [place] [address] 19 Jan, 2017 Back pain of lumbar region with sciatica M54.40 [facility] [id number] [place] [address] 15 Jan, 2017 Acute bacterial conjunctivitis of both eyes H10.33 [facility] [address] [address] 02 Jan, 2017 Chronic pain G89.29 [facility] [facility] [address] [address] 31 Dec, 2016 Type 2 diabetes mellitus with diabetic neuropathy, unspecified E11.40 ; Hypertension I10 ; Hyperlipemia E78.5 ; Gastro-esophageal reflux disease without esophagitis K21.9 ; Anxiety associated with depression F41.8 ; Allergic rhinitis J30.9 ; Neuropathy G62.9 and Dependence on nocturnal oxygen therapy Z99.81 [facility] [facility] [address] [address] Dec, [facility] [address] [address] Dec, [facility] [address] [address] 09 Dec, 2016 Encounter for immunization Z23 [facility] [facility] [address] [address] 05 Dec, 2016 Type 2 diabetes mellitus with diabetic neuropathy, unspecified E11.40 and Chronic pain G89.29 [facility] [id number] [place] [address] 11 Nov, 2016 Gastro-esophageal reflux disease without esophagitis K21.9 [facility] [address] [address] 11 Nov, 2016 Peripheral edema R60.9 and Chest pain in adult R07.9 [facility] [address] [address] Nov, Chronic pain G89.29 [facility] [id number] [place] [address] Oct, [facility] [id number] [place] [address] Oct, [facility] [id number] [place] [address] Oct, Rheumatoid arthritis with rheumatoid factor of right wrist without organ or systems involvement M05.731 [facility] [id number] [place] [address] 15 Oct, 2016 [facility] [id number] [place] [address] Oct, Acute exacerbation of chronic obstructive pulmonary disease (COPD) J44.1 and Canker sore K12.0 [facility] [id number] [place] [address] Oct, [facility] [id number] [place] [address] Oct, [facility] [id number] [place] [address] Oct, Chronic pain G89.29 [facility] [id number] [place] [id number] Oct, Dental examination Z01.20 [facility] [id number] [place] [address] Oct, Dental examination Z01.20 and Periodontitis K05.30 [facility] [id number] [place] [id number] Oct, Dental examination Z01.20 [facility] [id number] [place] [address] Sep, Abscess L02.91 [facility] [id number] [place] [address] Sep, Dental examination Z01.20 [facility] [id number] [address] Sep, [facility] [id number] [id number] Sep, Dental examination Z01.20 and Dental caries K02.9 [facility] [address] [address] Sep, Primary insomnia F51.01 and Anxiety associated with depression F41.8 [facility] [address] [address] Sep, Rheumatoid arthritis with rheumatoid factor of right wrist without organ or systems involvement M05.731 [address] [address] [place] [address] Sep, Chronic pain G89.29 [facility] [id number] [place] [address] Sep, Type 2 diabetes mellitus with diabetic neuropathy, unspecified E11.40 ; Emphysema, unspecified J43.9 ; Gastro-esophageal reflux disease without esophagitis K21.9 ; Hypertension I10 ; Hyperlipemia E78.5 ; Anxiety associated with depression F41.8 ; Chronic pain G89.29 ; Vitamin D deficiency E55.9 and Primary insomnia F51.01 [address] [address] [address] 16 Aug, 2016 Anxiety associated with depression F41.8 [facility] [address] [address] 13 Aug, 2016 Chronic pain G89.29 and Neuropathy G62.9 [address] [address] [place] [address] Aug, Type 2 diabetes mellitus with diabetic neuropathy, unspecified E11.40 ; Rheumatoid arthritis involving multiple sites with positive rheumatoid factor M05.79 ; Vitamin D deficiency E55.9 ; Anxiety associated with depression F41.8 and Primary insomnia F51.01 [facility] [id number] [place] [address] July, Emphysema, unspecified J43.9 [address] [address] [address] July, Allergic rhinitis J30.9 [facility] [id number] [place] [address] July, Allergic rhinitis J30.9 ; Emphysema, unspecified J43.9 and Rheumatoid arthritis with rheumatoid factor of right wrist without organ or systems involvement M05.731 [facility] [id number] [place] [address] July, Neuropathy G62.9 and Chronic pain G89.29 [facility] [id number] [place] [address] July, Rheumatoid arthritis involving multiple sites with positive rheumatoid factor M05.79 [facility] [id number] [place] [address] Jun, [facility] [id number] [place] [address] Jun, Neuropathy G62.9 and Chronic pain G89.29 [facility] [id number] [place] [address] May, Neuropathy G62.9 and Chronic pain G89.29 [facility] [id number] [place] [address] May, [facility] [id number] [place] [address] May, [facility] [id number] [place] [address] May, Type 2 diabetes mellitus with diabetic [...] with positive rheumatoid factor M05.732 [facility] [address] [address] 14 Apr, 2016 Chronic pain G89.29 [facility] [address] [address] Mar, Gastro-esophageal reflux disease without esophagitis K21.9 [address] [facility] [address] [address] Mar, [address] [facility] [address] [address] Mar, Rheumatoid arthritis with rheumatoid factor of right wrist without organ or systems involvement M05.731 [address] [address] [address] Mar, Chronic pain G89.29 [address] [address] [address] Feb, Hyperlipemia E78.5 [facility] [address] [address] Feb, Abnormal breath sounds R06.89 ; COPD with exacerbation J44.1 and Fatigue, unspecified type R53.83 [facility] [id number] [place] [address] Feb, Neuropathy G62.9 ; Abnormal lung sounds R09.89 and Bronchitis J40 [facility] [id number] [place] [address] Feb, Bronchitis J40 [facility] [address] [address] Feb, Chronic pain G89.29 [address] [address] [place] [address] Jan, Type 2 diabetes mellitus with diabetic neuropathy, unspecified E11.40 ; Rheumatoid arthritis with rheumatoid factor of right wrist without organ or systems involvement M05.731 and Hyperlipemia E78.5 [facility] [id number] [place] [address] Jan, Rheumatoid arthritis with rheumatoid factor of right wrist without organ or systems involvement M05.731 [facility] [address] [place] [address] Jan, De Quervain's disease (radial styloid tenosynovitis) M65.4 ; Closed nondisplaced fracture of scaphoid of left wrist, unspecified portion of scaphoid, initial encounter S62.002A and Peripheral tear of medial meniscus of left knee, unspecified whether old or current tear, initial encounter S83.222A [facility] [address] [place] [address] Jan, Hypertension I10 ; Type 2 diabetes mellitus with diabetic neuropathy, unspecified E11.40 ; Hyperlipemia E78.5 ; Allergic rhinitis J30.9 ; Neuropathy G62.9 ; Rheumatoid arthritis with rheumatoid factor of right wrist without organ or systems involvement M05.731 ; Acute non-recurrent maxillary sinusitis J01.00 and Chronic pain G89.29 [facility] [address] [place] [address] Dec, [facility] [id number] [place] [address] Dec, [facility] [id number] [place] [address] Dec, Type 2 diabetes mellitus with diabetic neuropathy, unspecified E11.40 ; Emphysema, unspecified J43.9 ; Gastro-esophageal reflux disease without esophagitis K21.9 ; Hypertension I10 ; Hyperlipemia E78.5 ; Rheumatoid arthritis with rheumatoid factor of right wrist without organ or systems involvement M05.731 ; Elevated white blood cell count, unspecified D72.829 ; Acute non- recurrent frontal sinusitis J01.10 and Chronic pain G89.29 [address] [address] [address] Nov, [facility] [id number] [place] [address] Nov, Elevated white blood cell count, unspecified D72.829 ; Encounter for immunization Z23 ; Rheumatoid arthritis with rheumatoid factor of right wrist without organ or systems involvement M05.731 ; Injury of left hand S69.92XA ; Pain in left knee M25.562 and Other chronic pain G89.29 [facility] [facility] [address] [address] Nov, [address] [address] [address] Nov, [facility] [facility] [address] [address] Oct, [facility] [id number] [place] [address] Oct, Hyperlipemia E78.5 [facility] [id number] [place] [address] Oct, [facility] [id number] [place] [address] Oct, Type 2 diabetes mellitus with diabetic neuropathy, unspecified E11.40 ; Neuropathy G62.9 ; Hypertension I10 ; Chronic pain G89.29 and Hyperlipemia E78.5 [facility] [id number] [place] [address] Oct, Emphysema, unspecified J43.9 and Rheumatoid arthritis of left wrist without organ or system involvement with positive rheumatoid factor M05.732 [facility] [id number] [place] [address] Sep, Chronic pain syndrome G89.4 [facility] [address] [address] Sep, [facility] [id number] [place] [address] Sep, [facility] [id number] [place] [address] Sep, Closed nondisplaced fracture of scaphoid of left wrist, unspecified portion of scaphoid, initial encounter S62.002A [facility] [id number] [place] [address] Sep, Type 2 diabetes mellitus with diabetic neuropathy, unspecified E11.40 ; Hypertension I10 ; Hyperlipemia E78.5 and Acute non-recurrent maxillary sinusitis J01.00 [facility] [id number] [place] [address] Sep, [facility] [id number] [place] [address] Sep, [facility] [id number] [place] [address] Sep, [facility] [id number] [place] [address] Sep, [facility] [id number] [place] [address] Aug, Epigastric pain R10.13 and Right upper quadrant pain R10.11 [facility] [address] [address] Aug, Closed nondisplaced fracture of scaphoid of left wrist, unspecified portion of scaphoid, initial encounter S62.002A [facility] [id number] [place] [address] Aug, [facility] [id number] [address] Aug, [facility] [address] [address] Aug, Shortness of breath R06.02 ; Epigastric pain R10.13 and Injury of left lower arm, initial encounter S59.912A [facility] [address] [address] Aug, Coronary artery disease involving [place] heart with angina pectoris, unspecified vessel or lesion type I25.119 ; Pulmonary emphysema, unspecified emphysema type J43.9 and Snoring R06.83 [facility] [id number] [place] [address] Aug, [facility] [id number] [place] [address] Aug, Emphysema, unspecified J43.9 ; Atherosclerotic heart disease of [place] coronary artery without angina pectoris I25.10 and Hypertension I10 [facility] [id number] [place] [address] July, [facility] [id number] [place] [address] July, Closed nondisplaced fracture of scaphoid of left wrist, unspecified portion of scaphoid, initial encounter S62.002A [facility] [address] [address] July, [facility] [id number] [place] [phone] July, Type 2 diabetes mellitus with diabetic [...] L24.89 and Hospital discharge follow-up Z09 [facility] [id number] [address] July, [facility] [id number] [place] [id number] July, Type 2 diabetes mellitus with diabetic neuropathy, unspecified E11.40 [facility] [id number] [place] [address] July, Type 2 diabetes mellitus with diabetic neuropathy, unspecified E11.40 and Rheumatoid arthritis of left wrist without organ or system involvement with positive rheumatoid factor M05.732 [facility] [id number] [place] [id number] July, [facility] [id number] [place] [phone] July, [facility] [id number] [place] [phone] Jun, [facility] [id number] [address] Jun, [facility] [id number] [place] [address] Jun, 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 [facility] [address] [id number] [address] Jun, [facility] [address] [address] Jun, 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 [facility] [address] [address] Jun, [facility] [address] [address] Jun, [facility] [address] [address] Jun, Encounter for PPD test Z11.1 ; Rheumatoid arthritis with rheumatoid factor of right wrist without organ or systems involvement M05.731 and Rheumatoid arthritis of left wrist without organ or system involvement with positive rheumatoid factor M05.732 [facility] [id number] [place] [address] Jun, Type 2 diabetes mellitus with diabetic neuropathy, unspecified E11.40 [facility] [id number] [place] [address] May, Type 2 diabetes mellitus with diabetic neuropathy, unspecified E11.40 ; Emphysema, unspecified J43.9 ; Rheumatoid arthritis with rheumatoid factor of right wrist without organ or systems involvement M05.731 ; Rheumatoid arthritis of left wrist without organ or system involvement with positive rheumatoid factor M05.732 and Chronic pain G89.29 [facility] [id number] [place] [address] May, [facility] [id number] [place] [address] May, Swelling of hand joint M25.449 ; Ankle swelling M25.473 and Joint pain M25.50 [facility] [id number] [place] [address] May, Emphysema, unspecified J43.9 [facility] [id number] [place] [address] May, Gastroenteritis K52.9 and Hypertension I10 [facility] [id number] [place] [address] Apr, [facility] [id number] [place] [address] Apr, [facility] [id number] [place] [address] Apr, [facility] [id number] [place] [address] Apr, Type 2 diabetes mellitus with diabetic [...] Injury of left hand S69.92XA [facility] [address] [address] Apr, [facility] [address] [address] Apr, [address] [address] Apr, Type 2 diabetes mellitus with diabetic [...] pain G89.29 and Depression with anxiety F41.8 [facility] [address] [address] Mar, [facility] [address] [address] Mar, Allergic rhinitis J30.9 ; URI (upper respiratory infection) J06.9 and Other viral agents as the cause of diseases classified elsewhere B97.89 [facility] [address] [address] Feb, Acute nasopharyngitis [common cold] J00 and Acute diarrhea R19.[address] [address] Feb, Depression F32.9 [facility] [address] [address] Jan, Otitis media, right H66.91 [facility] [id number] [place] [address] Jan, [facility] [id number] [place] [address] Jan, Type 2 diabetes mellitus with diabetic neuropathy, unspecified E11.40 [facility] [id number] [place] [address] Jan, [facility] [id number] [place] [address] Jan, Hyperlipemia E78.5 [facility] [id number] [place] [address] Jan, Type 2 diabetes mellitus with diabetic neuropathy, unspecified E11.40 ; Emphysema, unspecified J43.9 ; CAD (coronary artery disease) I25.10 and Hyperlipemia E78.5 [facility] [id number] [place] [address] Dec, Allergic rhinitis J30.9 and Fungal infection B49 [facility] [id number] [place] [address] Dec, [facility] [id number] [place] [address] Dec, [facility] [id number] [place] [address] Dec, Chest pain R07.9 ; CAD (coronary artery disease) I25.10 ; Hypertension I10 and Hyperlipemia E78.5 [facility] [id number] [place] [address] 08 Dec, 2014 Pain in thoracic spine M54.6 ; Gastro-esophageal reflux disease without esophagitis K21.9 ; Emphysema, unspecified J43.9 and Migraine without aura, not intractable, with status migrainosus G43.001 [facility] [address] [address] Dec, [facility] [address] [address] Nov, Influenza vaccine administered V04.81 [facility] [address] [address] Nov, [facility] [address] [address] Sep, [facility] [address] [address] Sep, [facility] [id number] [place] [address] Sep, CAD (coronary artery disease) 414.00 and Diabetes type 2, uncontrolled 250.02 [facility] [address] [address] Sep, CAD (coronary artery disease) 414.00 ; Diabetes type 2, uncontrolled 250.02 and Migraine 346.90 IMMUNIZATIONS No Known Immunizations SOCIAL HISTORY Never Assessed REASON FOR VISIT Diabetes PLAN OF CARE Activity Details Follow Up 3 Months Reason:[facility] Height 66 in 2017-01-17 Weight 181.0 lbs 2017-01-17 Temperature 97.0 degrees Fahrenheit 2017-01-17 Oximetry after ambulation w/o oxygen:93 % 2017-01-17 BMI 29.21 kg/m2 2017-01-17 Blood pressure systolic 120 mmHg 2017-01-17 Blood pressure diastolic 76 mmHg 2017-01-17 MEDICATIONS Medication Instructions Dosage Frequency Start Date End Date Duration Status Oxygen Active Methotrexate 2.5 MG Orally once weekly 8 TABLETS 90 days Active Citalopram Hydrobromide 20 mg Orally Once a day 1 tablet 24h 30 Active Baclofen 10 MG TAKE ONE TABLET BY MOUTH THREE TIMES DAILY WITH FOOD OR MILK 90 Active Trazodone HCl 50 mg Orally Once a day 1 tablet at bedtime as needed 24h 30 Active Cetirizine HCl 10 Orally Once a day TAKE 1 TABLET BY MOUTH DAILY 24h Active Blood Glucose Monitor System w/Device as directed July, Active Metformin HCl 1000 MG Orally 2 times a day TAKE ONE TABLET BY MOUTH TWICE DAILY WITH MEALS 12h 30 Active Depend Adjustable Underwear Lg 1 as directed 3 times a day use one depends three times per day as needed 8h May, 12 months Active Fish Oil 1200 MG Orally Once a day 1 capsule 24h Active BusPIRone HCl 10 mg Orally TID PRN 1 tablet Dec, 30 days Active Protonix 40 mg Orally Once a day 1 tablet 24h Dec, 90 days Active Easy Touch Pen [place] 32G X 4 MM sq 4 times a day as directed 6h Sep, 90 days Active Albuterol Sulfate (2.5 MG/3ML) 0.083% Inhalation Three times a day 3 ml 8h 30 Active Folic Acid 1 MG Orally Once a day 1 tablet 24h Active Lisinopril 20 mg Orally Once a day 1 tablet 24h 90 Active Blood Glucose Test Test Strips In Vitro 4 times a day test blood sugar 6h Jun, Active Ventolin HFA 108 (90 Base) MCG/ACT Inhalation every 4 hrs Needs appointment 2 puffs as needed 17 Active Mucinex 600 MG Orally every 12 hrs 1 tablet as needed 12h Mar, Active Plaquenil 200 mg Orally Once a day 1 tablet with food or milk 24h 30 Active Nystatin-Triamcinolone 150054-2.1 UNIT/GM Externally Twice a day apply thin layer to irritated abdominal areas 12h July, Active Metoprolol Tartrate 25 MG Orally Twice a day TAKE ONE TABLET BY MOUTH TWICE DAILY 12h 30 Active Hydrocodone-Acetaminophen 7.5-325 MG Orally every 6 hours as needed 1 tablet as needed Dec, 28 days Active Atorvastatin Calcium 10 mg Orally Once a day 1 tablet 24h Oct, 30 day(s) Active Qnasl 80 MCG/ACT Nasally Once a day 2 puffs in each nostril 24h July, 30 day(s) Active Victoza 18 MG/3ML Subcutaneous Once a day 1.8mg 24h 30 Active Quad Cane as directed May, Active Aspirin Adult Low Strength 81 MG Orally Once a day 1 tablet 24h Active Symbicort 160-4.5 MCG/ACT Inhalation Twice a day Needs to make an appointment 2 puffs 30 Active Lyrica 100 mg Orally Three times a day 1 capsule 8h Dec, 30 days Active RESULTS Name Result Date Reference Range A1C (IN HOUSE) 2017-01-17 A1C IN HOUSE 5.4 4.3 - 5.6 % Previous A1c 6.8 Lot [id number] Exp date 09/2018 PROCEDURES Procedure Date Ordered Result Body Site GLYCATED HEMOGLOBIN TEST Jan 17, 2017 MEASURE BLOOD OXYGEN LEVEL Jan 17, 2017 INSTRUCTIONS MEDICATIONS ADMINISTERED No Known Medications [...]
--- OUTSIDE RECORDS SUMMARY | 2018-08-23 17:17 | XMS REPORT ---
Author Author APNCHOROBCLAU Organization [facility] [place] Address [address] [place] [address] Care Team Providers Care Maintenance Associate Name Role Phone DELEONCLAU Moran Unavailable PROBLEMS Type Condition ICD9-CM Code [id number] Code Onset Dates Condition Status SNOMED Code Problem Dependence on nocturnal oxygen therapy Z99.81 Active 86040674202062 Problem Other hammer toe(s) (acquired), left foot M20.42 Active 50122094 Problem Neuropathy G62.9 Active 862023062 Problem Anxiety F41.9 Active 26421156 Problem Hyperlipemia E78.5 Active 95598607 Problem COPD with acute exacerbation J44.1 Active 669442912 Problem Hypertension I10 Active 54563418 Problem Vitamin D deficiency E55.9 Active 37780496 Problem Tobacco abuse Z72.0 Active 535089695 Problem Other hammer toe(s) (acquired), right foot M20.41 Active 381547621 Problem Back pain of lumbar region with sciatica M54.40 Active 680646812 Problem COPD with exacerbation J44.1 Active [id number] Problem Emphysema, unspecified J43.9 Active 64689961 Problem Allergic rhinitis J30.9 Active 79598397 Problem Type 2 diabetes mellitus with diabetic neuropathy, unspecified E11.40 Active 47947911 Problem Gastro-esophageal reflux disease without esophagitis K21.9 Active 249585112 Problem OAB (overactive bladder) N32.81 Active 709079643 Problem Rheumatoid arthritis involving multiple sites with positive rheumatoid factor M05.79 Active 608686394 Problem Anxiety associated with depression F41.8 Active 942942235 Problem Primary insomnia F51.01 Active 9629172 Problem Chronic pain G89.29 Active 54828683 Problem Periodontitis K05.30 Active 44273001 ALLERGIES No Information ENCOUNTERS Encounter Location Date Diagnosis [facility] [place] [address] [facility] [id number] [address] July, [facility] [place] [address] [address] Jun, [facility] [place] [id number] [place] [address] Jun, [facility] [place] [id number] [place] [address] Jun, Visit for TB skin test Z11.1 [facility] [place] [id number] [place] [address] Jun, [facility] [place] [id number] [place] [address] Jun, [facility] [place] [id number] [place] [address] Jun, Tobacco abuse Z72.0 and Rheumatoid arthritis involving multiple sites with positive rheumatoid factor M05.79 [facility] [place] [id number] [place] [address] Jun, Anxiety F41.9 ; Acute non-recurrent maxillary sinusitis J01.00 and Chronic pain G89.29 [facility] [place] [id number] [place] [address] Jun, [facility] [place] [id number] [place] [address] May, Rheumatoid arthritis involving multiple sites with positive rheumatoid factor M05.79 [facility] [place] [id number] [place] [address] May, Chronic pain G89.29 [facility] [place] [address] [address] May, [facility] [place] [id number] [place] [address] May, [facility] [place] [address] [address] May, [facility] [place] [id number] [place] [address] May, Type 2 diabetes mellitus with diabetic neuropathy, unspecified E11.40 [place] [address] [address] May, Type 2 diabetes mellitus with diabetic neuropathy, unspecified E11.40 ; Emphysema, unspecified J43.9 ; Hypertension I10 ; Hyperlipemia E78.5 ; Vitamin D deficiency E55.9 ; Right medial knee pain M25.561 ; Controlled substance agreement signed Z79.899 ; Chronic pain G89.29 ; Allergic rhinitis J30.9 ; Anxiety associated with depression F41.8 ; Neuropathy G62.9 and Gastro- esophageal reflux disease without esophagitis K21.9 [place] [id number] [place] [address] Apr, Chronic pain G89.29 [place] [id number] [place] [address] 16 Apr, 2017 Other hammer toe(s) (acquired), left foot M20.42 ; Other hammer toe(s) (acquired), right foot M20.41 ; Type 2 diabetes mellitus with diabetic neuropathy, unspecified E11.40 and Onychomycosis B35.1 [place] [id number] [place] [address] 2017 Gastro-esophageal reflux disease without esophagitis K21.9 [facility] [place] [id number] [place] [address] Apr, Controlled substance agreement signed Z79.899 [place] [id number] [place] [address] Mar, Chronic pain G89.29 [place] [address] [address] Mar, Emphysema, unspecified J43.9 and Type 2 diabetes mellitus with diabetic neuropathy, unspecified E11.40 [facility] [id number] [place] [address] Mar, Dysuria R30.0 ; Vaginal candidiasis B37.3 and Acute nonintractable headache, unspecified headache type R51 [place] [address] [address] Feb, Neuropathy G62.9 and Chronic pain G89.29 [place] [address] [address] Feb, Gastro-esophageal reflux disease without esophagitis K21.9 [place] [address] [address] Feb, [address] [address] Feb, Rheumatoid arthritis involving multiple sites with positive rheumatoid factor M05.79 and COPD with acute exacerbation J44.[address] [address] Feb, Vaginal odor N89.8 ; Vaginal irritation N89.8 ; Candidal dermatitis B37.2 and Screening breast examination Z12.[address] [address] Feb, [facility] [place] [id number] [place] [address] Feb, [place] [id number] [place] [address] Feb, [place] [address] [address] Feb, COPD with exacerbation J44.1 ; Tobacco abuse counseling Z71.6 ; Tobacco abuse Z72.0 ; Rheumatoid arthritis involving multiple sites with positive rheumatoid factor M05.79 and Hyperlipemia E78.5 [place] [id number] [place] [address] Feb, [facility] [address] [id number] Jan, [facility] [place] [id number] [place] [address] Jan, Chronic pain G89.29 [facility] [id number] [place] [id number] Jan, Dental examination Z01.20 [facility] [id number] [place] [address] Jan, Back pain of lumbar region with sciatica M54.40 [facility] [id number] [place] [address] 15 Jan, 2017 Acute bacterial conjunctivitis of both eyes H10.33 [place] [id number] [place] [address] 02 Jan, 2017 Chronic pain G89.29 [place] [id number] [place] [address] Dec, Type 2 diabetes mellitus with diabetic neuropathy, unspecified E11.40 ; Hypertension I10 ; Hyperlipemia E78.5 ; Gastro-esophageal reflux disease without esophagitis K21.9 ; Anxiety associated with depression F41.8 ; Allergic rhinitis J30.9 ; Neuropathy G62.9 and Dependence on nocturnal oxygen therapy Z99.81 [place] [id number] [place] [address] Dec, [place] [id number] [place] [address] Dec, [place] [id number] [place] [address] Dec, Encounter for immunization Z23 [place] [address] [address] 05 Dec, 2016 Type 2 diabetes mellitus with diabetic neuropathy, unspecified E11.40 and Chronic pain G89.29 [place] [id number] [place] [address] 11 Nov, 2016 Gastro-esophageal reflux disease without esophagitis K21.9 [facility] [place] [id number] [place] [address] 11 Nov, 2016 Peripheral edema R60.9 and Chest pain in adult R07.9 [facility] [place] [id number] [place] [address] 07 Nov, 2016 Chronic pain G89.29 [facility] [place] [id number] [place] [address] Oct, [facility] [place] [address] [address] Oct, [facility] [place] [address] [address] Oct, Rheumatoid arthritis with rheumatoid factor of right wrist without organ or systems involvement M05.731 [place] [address] [address] 15 Oct, 2016 [facility] [address] [address] Oct, Acute exacerbation of chronic obstructive pulmonary disease (COPD) J44.1 and Canker sore K12.0 [place] [id number] [place] [address] Oct, [facility] [place] [id number] [place] [address] Oct, [facility] [place] [id number] [place] [address] Oct, Chronic pain G89.29 [facility] [id number] [place] [id number] Oct, Dental examination Z01.20 [facility] [place] [id number] [place] [address] Oct, Dental examination Z01.20 and Periodontitis K05.30 [facility] [address] [id number] Oct, Dental examination Z01.20 [facility] [id number] [place] [address] Sep, Abscess L02.91 [facility] [place] [id number] [place] [address] Sep, Dental examination Z01.20 [facility] [place] [id number] [place] [address] Sep, [facility] [address] [id number] Sep, Dental examination Z01.20 and Dental caries K02.9 [facility] [place] [id number] [place] [address] Sep, Primary insomnia F51.01 and Anxiety associated with depression F41.8 [place] [id number] [place] [address] Sep, Rheumatoid arthritis with rheumatoid factor of right wrist without organ or systems involvement M05.731 [place] [id number] [place] [address] Sep, Chronic pain G89.29 [place] [id number] [place] [address] Sep, Type 2 diabetes mellitus with diabetic neuropathy, unspecified E11.40 ; Emphysema, unspecified J43.9 ; Gastro-esophageal reflux disease without esophagitis K21.9 ; Hypertension I10 ; Hyperlipemia E78.5 ; Anxiety associated with depression F41.8 ; Chronic pain G89.29 ; Vitamin D deficiency E55.9 and Primary insomnia F51.01 [place] [id number] [place] [address] 16 Aug, 2016 Anxiety associated with depression F41.8 [place] [id number] [place] [address] Aug, Chronic pain G89.29 and Neuropathy G62.9 [place] [id number] [address] 13 Aug, 2016 Type 2 diabetes mellitus with diabetic neuropathy, unspecified E11.40 ; Rheumatoid arthritis involving multiple sites with positive rheumatoid factor M05.79 ; Vitamin D deficiency E55.9 ; Anxiety associated with depression F41.8 and Primary insomnia F51.01 [place] [id number] [place] [address] July, Emphysema, unspecified J43.9 [place] [id number] [place] [address] July, Allergic rhinitis J30.9 [place] [id number] [place] [address] July, Allergic rhinitis J30.9 ; Emphysema, unspecified J43.9 and Rheumatoid arthritis with rheumatoid factor of right wrist without organ or systems involvement M05.731 [place] [id number] [place] [address] July, Neuropathy G62.9 and Chronic pain G89.29 [place] [id number] [place] [address] July, Rheumatoid arthritis involving multiple sites with positive rheumatoid factor M05.79 [place] [id number] [place] [address] Jun, [place] [id number] [place] [address] Jun, Neuropathy G62.9 and Chronic pain G89.29 [place] [id number] [place] [address] May, Neuropathy G62.9 and Chronic pain G89.29 [place] [id number] [place] [address] May, [place] [id number] [place] [address] May, [place] [id number] [place] [address] May, Type 2 diabetes mellitus with diabetic [...] system involvement with positive rheumatoid factor M05.[address] [address] Apr, Chronic pain G89.[address] [address] Mar, Gastro-esophageal reflux disease without esophagitis K21.9 [place] [address] [address] Mar, [address] [address] Mar, Rheumatoid arthritis with rheumatoid factor of right wrist without organ or systems involvement M05.[address] [address] Mar, Chronic pain G89.29 [place] [address] [address] Feb, Hyperlipemia E78.[address] [address] Feb, Abnormal breath sounds R06.89 ; COPD with exacerbation J44.1 and Fatigue, unspecified type R53.[address] [address] Feb, Neuropathy G62.9 ; Abnormal lung sounds R09.89 and Bronchitis J40 [facility] [id number] [place] [address] Feb, Bronchitis J40 [facility] [place] [id number] [place] [address] Feb, Chronic pain G89.29 [place] [id number] [place] [address] Jan, Type 2 diabetes mellitus with diabetic neuropathy, unspecified E11.40 ; Rheumatoid arthritis with rheumatoid factor of right wrist without organ or systems involvement M05.731 and Hyperlipemia E78.5 [place] [address] [address] Jan, Rheumatoid arthritis with rheumatoid factor of right wrist without organ or systems involvement M05.731 [place] [address] [address] Jan, De Quervain's disease (radial styloid tenosynovitis) M65.4 ; Closed nondisplaced fracture of scaphoid of left wrist, unspecified portion of scaphoid, initial encounter S62.002A and Peripheral tear of medial meniscus of left knee, unspecified whether old or current tear, initial encounter S83.222A [place] [id number] [place] [address] Jan, Hypertension I10 ; Type 2 diabetes mellitus with diabetic neuropathy, unspecified E11.40 ; Hyperlipemia E78.5 ; Allergic rhinitis J30.9 ; Neuropathy G62.9 ; Rheumatoid arthritis with rheumatoid factor of right wrist without organ or systems involvement M05.731 ; Acute non-recurrent maxillary sinusitis J01.00 and Chronic pain G89.29 [place] [id number] [place] [address] Dec, [place] [id number] [place] [address] Dec, [place] [address] [address] Dec, Type 2 diabetes mellitus with diabetic neuropathy, unspecified E11.40 ; Emphysema, unspecified J43.9 ; Gastro-esophageal reflux disease without esophagitis K21.9 ; Hypertension I10 ; Hyperlipemia E78.5 ; Rheumatoid arthritis with rheumatoid factor of right wrist without organ or systems involvement M05.731 ; Elevated white blood cell count, unspecified D72.829 ; Acute non- recurrent frontal sinusitis J01.10 and Chronic pain G89.29 [place] [address] [address] Nov, [place] [address] [address] Nov, Elevated white blood cell count, unspecified D72.829 ; Encounter for immunization Z23 ; Rheumatoid arthritis with rheumatoid factor of right wrist without organ or systems involvement M05.731 ; Injury of left hand S69.92XA ; Pain in left knee M25.562 and Other chronic pain G89.29 [place] [id number] [place] [address] Nov, [place] [address] [address] Nov, [place] [id number] [place] [address] Oct, [place] [id number] [place] [address] Oct, Hyperlipemia E78.5 [place] [id number] [place] [address] Oct, [place] [address] [address] Oct, Type 2 diabetes mellitus with diabetic neuropathy, unspecified E11.40 ; Neuropathy G62.9 ; Hypertension I10 ; Chronic pain G89.29 and Hyperlipemia E78.5 [place] [address] [address] Oct, Emphysema, unspecified J43.9 and Rheumatoid arthritis of left wrist without organ or system involvement with positive rheumatoid factor M05.732 [place] [id number] [place] [address] Sep, Chronic pain syndrome G89.4 [place] [id number] [place] [address] Sep, [place] [id number] [place] [address] Sep, [place] [id number] [place] [address] Sep, Closed nondisplaced fracture of scaphoid of left wrist, unspecified portion of scaphoid, initial encounter S62.002A [place] [id number] [place] [address] Sep, Type 2 diabetes mellitus with diabetic neuropathy, unspecified E11.40 ; Hypertension I10 ; Hyperlipemia E78.5 and Acute non-recurrent maxillary sinusitis J01.00 [place] [id number] [place] [address] Sep, [place] [id number] [place] [address] Sep, [place] [id number] [place] [address] Sep, [place] [id number] [place] [address] Sep, [place] [id number] [place] [address] Aug, Epigastric pain R10.13 and Right upper quadrant pain R10.11 [place] [id number] [place] [address] Aug, Closed nondisplaced fracture of scaphoid of left wrist, unspecified portion of scaphoid, initial encounter S62.002A [facility] [place] [id number] [place] [address] Aug, [place] [id number] [place] [address] Aug, [facility] [id number] [place] [address] Aug, Shortness of breath R06.02 ; Epigastric pain R10.13 and Injury of left lower arm, initial encounter S59.912A [place] [id number] [place] [address] Aug, 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, unspecified vessel or lesion type I25.119 ; Pulmonary emphysema, unspecified emphysema type J43.9 and Snoring R06.83 [place] [address] [address] Aug, [facility] [place] [id number] [place] [address] Aug, Emphysema, unspecified J43.9 ; 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 and Hypertension I10 [place] [id number] [place] [address] July, [place] [id number] [place] [address] July, Closed nondisplaced fracture of scaphoid of left wrist, unspecified portion of scaphoid, initial encounter S62.002A [place] [id number] [place] [address] July, [place] [id number] [place] [address] July, Type 2 diabetes mellitus with diabetic neuropathy, unspecified E11.40 ; Emphysema, unspecified J43.9 ; 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 ; [...] agents L24.89 and Hospital discharge follow-up Z09 [place] [id number] [place] [address] July, [place] [id number] [place] [phone] July, Type 2 diabetes mellitus with diabetic neuropathy, unspecified E11.40 [place] [address] [address] [place] [id number] [place] [phone] July, Type 2 diabetes mellitus with diabetic neuropathy, unspecified E11.40 and Rheumatoid arthritis of left wrist without organ or system involvement with positive rheumatoid factor M05.732 [place] [address] [address] [place] [id number] [place] [phone] July, [facility], [place], [facility] [id number] [place] [phone] July, [place] [address] [place] [id number] [place] [phone] Jun, [place] [id number] [phone] Jun, [facility], [place], [facility] [address] [place] [id number] [place] [place] [id number] Jun, 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 [facility] [place] [id number] [place] [id number] Jun, [place] [address] [place] [id number] [place] [phone] Jun, 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 [place] [id number] [place] [phone] Jun, [place] [address] [place] [id number] [place] [phone] Jun, [place] [address] [place] [id number] [place] [phone] Jun, Encounter for PPD test Z11.1 ; Rheumatoid arthritis with rheumatoid factor of right wrist without organ or systems involvement M05.731 and Rheumatoid arthritis of left wrist without organ or system involvement with positive rheumatoid factor M05.732 [place] [address] [place] [id number] [place] [phone] Jun, Type 2 diabetes mellitus with diabetic neuropathy, unspecified E11.40 [place] [address] [address] May, Type 2 diabetes mellitus with diabetic neuropathy, unspecified E11.40 ; Emphysema, unspecified J43.9 ; Rheumatoid arthritis with rheumatoid factor of right wrist without organ or systems involvement M05.731 ; Rheumatoid arthritis of left wrist without organ or system involvement with positive rheumatoid factor M05.732 and Chronic pain G89.29 [place] [address] [place] [id number] [place] [phone] May, [place] [address] [place] [id number] [place] [phone] May, Swelling of hand joint M25.449 ; Ankle swelling M25.473 and Joint pain M25.50 [place] [address] [place] [id number] [place] [phone] May, Emphysema, unspecified J43.9 [place] [address] [place] [id number] [place] [phone] May, Gastroenteritis K52.9 and Hypertension I10 [place] [address] [place] [id number] [place] [phone] Apr, [place] [address] [place] [id number] [place] [phone] Apr, [place] [address] [place] [address] Apr, [address] [address] Apr, Type 2 diabetes mellitus with diabetic neuropathy, unspecified E11.40 ; Emphysema, unspecified J43.9 ; 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 ; Migraine without aura, not intractable, with status migrainosus G43.001 ; Gastro-esophageal reflux disease without esophagitis K21.9 ; CAD (coronary artery disease) I25.10 ; Hypertension I10 ; Hyperlipemia E78.5 ; Allergic rhinitis J30.9 ; Neuropathy G62.9 ; Anxiety associated with depression F41.8 and Injury of left hand S69.92XA [address] [address] Apr, [address] [address] Apr, [place] [address] [address] Apr, Type 2 diabetes mellitus with diabetic neuropathy, unspecified E11.40 ; Emphysema, unspecified J43.9 ; Essential (primary) hypertension I10 ; 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 ; Gastro-esophageal reflux disease without esophagitis K21.9 ; CAD (coronary artery disease) I25.10 ; Hyperlipemia E78.5 ; Hypertension I10 ; History of solitary pulmonary nodule Z87.898 ; Allergic rhinitis J30.9 ; Chronic pain G89.29 and Depression with anxiety F41.[address] [address] Mar, [address] [address] Mar, Allergic rhinitis J30.9 ; URI (upper respiratory infection) J06.9 and Other viral agents as the cause of diseases classified elsewhere B97.89 [facility] [address] [place] [address] [place] [address] Feb, Acute nasopharyngitis [common cold] J00 and Acute diarrhea R19.7 [place] [address] [address] Feb, Depression F32.9 [place] [address] [address] Jan, Otitis media, right H66.91 [place] [address] [address] Jan, [place] [address] [address] Jan, Type 2 diabetes mellitus with diabetic neuropathy, unspecified E11.40 [place] [address] [address] Jan, [place] [address] [address] Jan, Hyperlipemia E78.5 [facility] [address] [place] [id number] [place] [phone] Jan, Type 2 diabetes mellitus with diabetic neuropathy, unspecified E11.40 ; Emphysema, unspecified J43.9 ; CAD (coronary artery disease) I25.10 and Hyperlipemia E78.5 [place] [address] [place] [id number] [place] [address] Dec, Allergic rhinitis J30.9 and Fungal infection B49 [place] [address] [place] [id number] [place] [phone] Dec, [place] [address] [address] Dec, [place] [address] [place] [id number] [place] [phone] Dec, Chest pain R07.9 ; CAD (coronary artery disease) I25.10 ; Hypertension I10 and Hyperlipemia E78.5 [place] [id number] [place] [address] Dec, Pain in thoracic spine M54.6 ; Gastro-esophageal reflux disease without esophagitis K21.9 ; Emphysema, unspecified J43.9 and Migraine without aura, not intractable, with status migrainosus G43.001 [place] [address] [place] [id number] [place] [address] Dec, [place] [address] [place] [id number] [place] [phone] Nov, Influenza vaccine administered V04.[address] [address] Nov, [place] [address] [address] Sep, [place] [address] [address] Sep, [place] [address] [place] [id number] [place] [address] Sep, CAD (coronary artery disease) 414.00 and Diabetes type 2, uncontrolled 250.02 [place] [address] [place] [id number] [place] [address] Sep, CAD (coronary artery disease) 414.00 ; Diabetes type 2, uncontrolled 250.02 and Migraine 346.90 IMMUNIZATIONS No Known Immunizations SOCIAL HISTORY Never Assessed REASON FOR VISIT triage - CBowmanRN PLAN OF CARE VITAL SIGNS MEDICATIONS Unknown [...] unspecified Medical History Atherosclerotic heart disease of [place] coronary artery without angina pectoris Medical History [...]
--- OUTSIDE RECORDS SUMMARY | 2018-08-23 17:18 | XMS REPORT ---
Author Author DELEONROB MoranELE [facility] Address [address] [place] [address] Care Team Providers Care Script Supervisor Name Role Phone DELEONCLAU Moran Unavailable PROBLEMS Type Condition ICD9-CM Code VYB60-BO Code Onset Dates Condition Status SNOMED Code Problem Primary insomnia F51.01 Active 1876190 Problem Neuropathy G62.9 Active 692441015 Problem Periodontitis K05.30 Active 25042824 Problem Atherosclerotic heart disease of [place] coronary artery without angina pectoris I25.10 Active 915775754581720 Problem Vitamin D deficiency E55.9 Active 77065442 Problem Hammer toe of left foot M20.42 Active 818244263 Problem Other hammer toe(s) (acquired), left foot M20.42 Active 52276076 Problem Dependence on nocturnal oxygen therapy Z99.81 Active 32730009799433 Problem Tobacco abuse Z72.0 Active 866990031 Problem Other hammer toe(s) (acquired), right foot M20.41 Active 980095035 Problem Gastro-esophageal reflux disease without esophagitis K21.9 Active 122799958 Problem Emphysema, unspecified J43.9 Active 00620918 Problem Hypertension I10 Active 04553561 Problem Hyperlipemia E78.5 Active 03324865 Problem Anxiety associated with depression F41.8 Active 382086823 Problem Chronic pain G89.29 Active 53953766 Problem Type 2 diabetes mellitus with diabetic neuropathy, unspecified E11.40 Active 93713937 Problem OAB (overactive bladder) N32.81 Active 786187724 Problem Allergic rhinitis J30.9 Active 72869571 Problem Rheumatoid arthritis involving multiple sites with positive rheumatoid factor M05.79 Active 856469993 ALLERGIES No Information ENCOUNTERS Encounter Location Date Diagnosis [facility] [address] [facility] [id number] [address] Oct, [facility] [address] [facility] [id number] [place] [address] Aug, Type 2 diabetes mellitus with diabetic [...] (overactive bladder) N32.81 and Primary insomnia F51.01 [place] [address] [address] July, [place] [address] [address] July, [place] [address] [address] July, Chronic pain G89.29 [place] [address] [place] [id number] [place] [address] July, [place] [address] [address] July, Onychomycosis B35.1 ; Hammer toe of left foot M20.42 and Type 2 diabetes mellitus with diabetic neuropathy, unspecified E11.40 [place] [address] [place] [id number] [place] [address] July, [place] [address] [place] [id number] [place] [address] July, Chronic pain G89.29 and Neuropathy G62.9 [place] [address] [address] July, [place] [address] [place] [id number] [place] [address] July, [place] [address] [address] Jun, [facility] [address] [place] [address] Jun, Chronic pain G89.29 [facility] [address] [place] [address] Jun, [facility] [address] [place] [address] Jun, [facility] [address] [place] [id number] [place] [address] Jun, Visit for TB skin test Z11.1 [facility] [address] [place] [id number] [place] [address] 16 Jun, 2017 [facility] [address] [place] [id number] [place] [address] Jun, [facility] [address] [place] [id number] [place] [address] Jun, Tobacco abuse Z72.0 and Rheumatoid arthritis involving multiple sites with positive rheumatoid factor M05.79 [facility] [address] [place] [id number] [place] [address] Jun, Anxiety F41.9 ; Acute non-recurrent maxillary sinusitis J01.00 and Chronic pain G89.29 [facility] [address] [address] Jun, [facility] [address] [place] [address] May, Rheumatoid arthritis involving multiple sites with positive rheumatoid factor M05.79 [facility] [address] [place] [id number] [place] [address] May, Chronic pain G89.29 [facility] [address] [place] [address] May, [facility] [address] [place] [id number] [place] [address] May, [place] [address] [address] May, [place] [address] [place] [id number] [place] [address] May, Type 2 diabetes mellitus with diabetic neuropathy, unspecified E11.40 [place] [address] [place] [id number] [place] [address] May, Type 2 diabetes mellitus with diabetic neuropathy, unspecified E11.40 ; Emphysema, unspecified J43.9 ; Hypertension I10 ; Hyperlipemia E78.5 ; Vitamin D deficiency E55.9 ; Right medial knee pain M25.561 ; Controlled substance agreement signed Z79.899 ; Chronic pain G89.29 ; Allergic rhinitis J30.9 ; Anxiety associated with depression F41.8 ; Neuropathy G62.9 and Gastro- esophageal reflux disease without esophagitis K21.9 [place] [address] [place] [id number] [place] [address] Apr, Chronic pain G89.29 [place] [address] [place] [address] Apr, Other hammer toe(s) (acquired), left foot M20.42 ; Other hammer toe(s) (acquired), right foot M20.41 ; Type 2 diabetes mellitus with diabetic neuropathy, unspecified E11.40 and Onychomycosis B35.1 [place] [address] [place] [address] 2017 Gastro-esophageal reflux disease without esophagitis K21.9 [place] [address] [address] Apr, Controlled substance agreement signed Z79.899 [place] [address] [place] [address] Mar, Chronic pain G89.29 [place] [address] [place] [id number] [place] [address] Mar, Emphysema, unspecified J43.9 and Type 2 diabetes mellitus with diabetic neuropathy, unspecified E11.40 [facility] [address] [place] [id number] [place] [address] Mar, Dysuria R30.0 ; Vaginal candidiasis B37.3 and Acute nonintractable headache, unspecified headache type R51 [place] [address] [place] [id number] [place] [address] Feb, Neuropathy G62.9 and Chronic pain G89.29 [place] [address] [place] [id number] [place] [address] Feb, Gastro-esophageal reflux disease without esophagitis K21.9 [place] [address] [place] [id number] [place] [address] Feb, [place] [address] [address] Feb, Rheumatoid arthritis involving multiple sites with positive rheumatoid factor M05.79 and COPD with acute exacerbation J44.1 [place] [address] [place] [id number] [place] [address] Feb, Vaginal odor N89.8 ; Vaginal irritation N89.8 ; Candidal dermatitis B37.2 and Screening breast examination Z12.31 [place] [address] [place] [id number] [place] [address] Feb, [place] [address] [place] [id number] [place] [address] Feb, [place] [address] [place] [id number] [place] [address] Feb, [place] [address] [address] Feb, COPD with exacerbation J44.1 ; Tobacco abuse counseling Z71.6 ; Tobacco abuse Z72.0 ; Rheumatoid arthritis involving multiple sites with positive rheumatoid factor M05.79 and Hyperlipemia E78.5 [place] [address] [place] [id number] [place] [address] Feb, [facility] [address] [place] [id number] [place] [id number] Jan, [facility] [address] [place] [id number] [place] [address] Jan, Chronic pain G89.29 [facility] [id number] [place] [id number] Jan, Dental examination Z01.20 [facility] [address] [place] [id number] [place] [address] Jan, Back pain of lumbar region with sciatica M54.40 [facility] [address] [place] [id number] [place] [address] Jan, Acute bacterial conjunctivitis of both eyes H10.33 [place] [address] [place] [id number] [place] [address] Jan, Chronic pain G89.29 [place] [address] [place] [id number] [place] [address] Dec, Type 2 diabetes mellitus with diabetic neuropathy, unspecified E11.40 ; Hypertension I10 ; Hyperlipemia E78.5 ; Gastro-esophageal reflux disease without esophagitis K21.9 ; Anxiety associated with depression F41.8 ; Allergic rhinitis J30.9 ; Neuropathy G62.9 and Dependence on nocturnal oxygen therapy Z99.81 [place] [address] [place] [address] Dec, [place] [address] [place] [id number] [place] [address] Dec, [place] [address] [place] [id number] [place] [address] Dec, Encounter for immunization Z23 [place] [address] [place] [id number] [place] [address] Dec, Type 2 diabetes mellitus with diabetic neuropathy, unspecified E11.40 and Chronic pain G89.29 [facility] [address] [place] [id number] [place] [address] 11 Nov, 2016 Gastro-esophageal reflux disease without esophagitis K21.9 [facility] [address] [address] 11 Nov, 2016 Peripheral edema R60.9 and Chest pain in adult R07.9 [facility] [address] [address] 07 Nov, 2016 Chronic pain G89.29 [facility] [address] [address] 31 Oct, 2016 [facility] [address] [address] 30 Oct, 2016 [facility] [address] [address] 17 Oct, 2016 Rheumatoid arthritis with rheumatoid factor of right wrist without organ or systems involvement M05.731 [facility] [address] [address] 15 Oct, 2016 [facility] [address] [place] [id number] [place] [address] 14 Oct, 2016 Acute exacerbation of chronic obstructive pulmonary disease (COPD) J44.1 and Canker sore K12.0 [facility] [address] [address] 14 Oct, 2016 [facility] [address] [place] [id number] [place] [address] Oct, [facility] [address] [address] 09 Oct, 2016 Chronic pain G89.29 [facility] [address] [place] [id number] [place] [id number] 08 Oct, 2016 Dental examination Z01.20 [facility] [address] [address] Oct, Dental examination Z01.20 and Periodontitis K05.30 [facility] [address] [place] [id number] Oct, Dental examination Z01.20 [facility] [address] [address] Sep, Abscess L02.91 [facility] [address] [place] [id number] [place] [address] Sep, Dental examination Z01.20 [facility] [address] [place] [address] Sep, [facility] [address] [place] [id number] [place] [id number] Sep, Dental examination Z01.20 and Dental caries K02.9 [place] [address] [place] [id number] [place] [address] Sep, Primary insomnia F51.01 and Anxiety associated with depression F41.8 [place] [address] [place] [id number] [place] [address] Sep, Rheumatoid arthritis with rheumatoid factor of right wrist without organ or systems involvement M05.731 [place] [address] [place] [address] Sep, Chronic pain G89.29 [place] [address] [place] [id number] [place] [address] Sep, Type 2 diabetes mellitus with diabetic neuropathy, unspecified E11.40 ; Emphysema, unspecified J43.9 ; Gastro-esophageal reflux disease without esophagitis K21.9 ; Hypertension I10 ; Hyperlipemia E78.5 ; Anxiety associated with depression F41.8 ; Chronic pain G89.29 ; Vitamin D deficiency E55.9 and Primary insomnia F51.01 [place] [address] [address] Aug, Anxiety associated with depression F41.8 [place] [address] [place] [id number] [place] [address] 13 Aug, 2016 Chronic pain G89.29 and Neuropathy G62.9 [place] [address] [place] [id number] [place] [address] Aug, Type 2 diabetes mellitus with diabetic neuropathy, unspecified E11.40 ; Rheumatoid arthritis involving multiple sites with positive rheumatoid factor M05.79 ; Vitamin D deficiency E55.9 ; Anxiety associated with depression F41.8 and Primary insomnia F51.01 [place] [address] [place] [id number] [place] [address] July, Emphysema, unspecified J43.9 [place] [address] [place] [id number] [place] [address] July, Allergic rhinitis J30.9 [place] [address] [address] July, Allergic rhinitis J30.9 ; Emphysema, unspecified J43.9 and Rheumatoid arthritis with rheumatoid factor of right wrist without organ or systems involvement M05.731 [place] [address] [address] July, Neuropathy G62.9 and Chronic pain G89.29 [place] [address] [place] [id number] [place] [address] July, Rheumatoid arthritis involving multiple sites with positive rheumatoid factor M05.79 [place] [address] [place] [id number] [place] [address] Jun, [place] [address] [place] [id number] [place] [address] Jun, Neuropathy G62.9 and Chronic pain G89.29 [place] [address] [place] [id number] [place] [address] May, Neuropathy G62.9 and Chronic pain G89.29 [place] [address] [address] May, [place] [address] [place] [id number] [place] [address] May, [place] [address] [address] May, Type 2 diabetes mellitus with diabetic [...] system involvement with positive rheumatoid factor M05.732 [place] [address] [place] [id number] [place] [address] Apr, Chronic pain G89.29 [place] [address] [place] [id number] [place] [address] Mar, Gastro-esophageal reflux disease without esophagitis K21.9 [place] [address] [place] [id number] [place] [address] Mar, [place] [address] [place] [id number] [place] [address] Mar, Rheumatoid arthritis with rheumatoid factor of right wrist without organ or systems involvement M05.731 [place] [address] [place] [address] [place] [address] Mar, Chronic pain G89.29 [place] [address] [place] [id number] [place] [address] Feb, Hyperlipemia E78.5 [place] [address] [place] [id number] [place] [address] Feb, Abnormal breath sounds R06.89 ; COPD with exacerbation J44.1 and Fatigue, unspecified type R53.83 [facility] [address] [place] [address] Feb, Neuropathy G62.9 ; Abnormal lung sounds R09.89 and Bronchitis J40 [facility] [address] [place] [id number] [place] [address] Feb, Bronchitis J40 [facility] [address] [address] Feb, Chronic pain G89.29 [place] [address] [address] Jan, Type 2 diabetes mellitus with diabetic neuropathy, unspecified E11.40 ; Rheumatoid arthritis with rheumatoid factor of right wrist without organ or systems involvement M05.731 and Hyperlipemia E78.5 [place] [address] [address] Jan, Rheumatoid arthritis with rheumatoid factor of right wrist without organ or systems involvement M05.731 [place] [address] [address] Jan, De Quervain's disease (radial styloid tenosynovitis) M65.4 ; Closed nondisplaced fracture of scaphoid of left wrist, unspecified portion of scaphoid, initial encounter S62.002A and Peripheral tear of medial meniscus of left knee, unspecified whether old or current tear, initial encounter S83.222A [place] [address] [place] [address] [place] [address] Jan, Hypertension I10 ; Type 2 diabetes mellitus with diabetic neuropathy, unspecified E11.40 ; Hyperlipemia E78.5 ; Allergic rhinitis J30.9 ; Neuropathy G62.9 ; Rheumatoid arthritis with rheumatoid factor of right wrist without organ or systems involvement M05.731 ; Acute non-recurrent maxillary sinusitis J01.00 and Chronic pain G89.29 [place] [id number] [place] [address] Dec, [place] [address] [place] [id number] [place] [address] Dec, [place] [address] [address] Dec, Type 2 diabetes mellitus with diabetic neuropathy, unspecified E11.40 ; Emphysema, unspecified J43.9 ; Gastro-esophageal reflux disease without esophagitis K21.9 ; Hypertension I10 ; Hyperlipemia E78.5 ; Rheumatoid arthritis with rheumatoid factor of right wrist without organ or systems involvement M05.731 ; Elevated white blood cell count, unspecified D72.829 ; Acute non- recurrent frontal sinusitis J01.10 and Chronic pain G89.29 [place] [id number] [place] [address] Nov, [place] [id number] [place] [address] Nov, Elevated white blood cell count, unspecified D72.829 ; Encounter for immunization Z23 ; Rheumatoid arthritis with rheumatoid factor of right wrist without organ or systems involvement M05.731 ; Injury of left hand S69.92XA ; Pain in left knee M25.562 and Other chronic pain G89.29 [place] [id number] [place] [address] Nov, [place] [id number] [place] [address] Nov, [place] [id number] [place] [address] Oct, [place] [id number] [place] [address] Oct, Hyperlipemia E78.5 [place] [id number] [place] [address] Oct, [place] [id number] [place] [address] Oct, Type 2 diabetes mellitus with diabetic neuropathy, unspecified E11.40 ; Neuropathy G62.9 ; Hypertension I10 ; Chronic pain G89.29 and Hyperlipemia E78.5 [place] [id number] [place] [address] Oct, Emphysema, unspecified J43.9 and Rheumatoid arthritis of left wrist without organ or system involvement with positive rheumatoid factor M05.732 [place] [address] [place] [address] Sep, Chronic pain syndrome G89.4 [place] [address] [address] Sep, [place] [id number] [place] [address] Sep, [place] [id number] [place] [address] Sep, Closed nondisplaced fracture of scaphoid of left wrist, unspecified portion of scaphoid, initial encounter S62.002A [place] [id number] [place] [address] Sep, Type 2 diabetes mellitus with diabetic neuropathy, unspecified E11.40 ; Hypertension I10 ; Hyperlipemia E78.5 and Acute non-recurrent maxillary sinusitis J01.00 [place] [id number] [place] [address] Sep, [place] [id number] [place] [address] Sep, [facility] [id number] [place] [address] Sep, [place] [id number] [place] [address] Sep, [facility] [id number] [place] [address] Aug, Epigastric pain R10.13 and Right upper quadrant pain R10.11 [place] [id number] [address] 30 Aug, 2015 Closed nondisplaced fracture of scaphoid of left wrist, unspecified portion of scaphoid, initial encounter S62.002A [place] [address] [address] Aug, [place] [address] [place] [address] Aug, [facility] [address] [place] [address] Aug, Shortness of breath R06.02 ; Epigastric pain R10.13 and Injury of left lower arm, initial encounter S59.912A [place] [address] [place] [address] 07 Aug, 2015 Coronary artery disease involving paimiut heart with angina pectoris, unspecified vessel or lesion type I25.119 ; Pulmonary emphysema, unspecified emphysema type J43.9 and Snoring R06.83 [place] [address] [place] [address] Aug, [place] [address] [place] [address] 03 Aug, 2015 Emphysema, unspecified J43.9 ; Atherosclerotic heart disease of paimi[place] coronary artery without angina pectoris I25.10 and Hypertension I10 [place] [address] [place] [address] July, [place] [address] [place] [address] July, Closed nondisplaced fracture of scaphoid of left wrist, unspecified portion of scaphoid, initial encounter S62.002A [place] [address] [address] July, [place] [id number] [place] [id number] July, Type 2 diabetes mellitus with diabetic [...] agents L24.89 and Hospital discharge follow-up Z09 [place] [address] [address] July, [place] [address] [address] July, Type 2 diabetes mellitus with diabetic neuropathy, unspecified E11.40 [place] [address] [address] July, Type 2 diabetes mellitus with diabetic neuropathy, unspecified E11.40 and Rheumatoid arthritis of left wrist without organ or system involvement with positive rheumatoid factor M05.732 [place] [address] [address] July, [place] [address] [place] [id number] [place] [address] July, [place] [address] [place] [id number] [place] [address] Jun, [place] [address] [place] [id number] [place] [address] Jun, [place] [address] [address] Jun, 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 [place] [address] [place] [id number] [place] [address] Jun, [place] [address] [address] Jun, 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 [facility] [address] [id number] [place] [address] Jun, [place] [id number] [place] [address] Jun, [place] [id number] [place] [address] Jun, Encounter for PPD test Z11.1 ; Rheumatoid arthritis with rheumatoid factor of right wrist without organ or systems involvement M05.731 and Rheumatoid arthritis of left wrist without organ or system involvement with positive rheumatoid factor M05.732 [place] [id number] [place] [address] Jun, Type 2 diabetes mellitus with diabetic neuropathy, unspecified E11.40 [place] [id number] [place] [address] May, Type 2 diabetes mellitus with diabetic neuropathy, unspecified E11.40 ; Emphysema, unspecified J43.9 ; Rheumatoid arthritis with rheumatoid factor of right wrist without organ or systems involvement M05.731 ; Rheumatoid arthritis of left wrist without organ or system involvement with positive rheumatoid factor M05.732 and Chronic pain G89.29 [place] [id number] [place] [address] May, [place] [address] [id number] [place] [address] May, Swelling of hand joint M25.449 ; Ankle swelling M25.473 and Joint pain M25.50 [place] [address] [id number] [place] [address] May, Emphysema, unspecified J43.9 [place] [address] [id number] [place] [address] May, Gastroenteritis K52.9 and Hypertension I10 [place] [id number] [place] [address] Apr, [place] [id number] [place] [address] Apr, [place] [id number] [place] [address] Apr, [place] [id number] [place] [address] Apr, Type 2 diabetes mellitus with diabetic [...] and Injury of left hand S69.92XA [address] [address] Apr, [address] [address] Apr, [place] [id number] [place] [address] Apr, Type 2 diabetes mellitus with diabetic [...] pain G89.29 and Depression with anxiety F41.8 [place] [id number] [place] [address] Mar, [address] [address] Mar, Allergic rhinitis J30.9 ; URI (upper respiratory infection) J06.9 and Other viral agents as the cause of diseases classified elsewhere B97.89 [facility] [address] [address] Feb, Acute nasopharyngitis [common cold] J00 and Acute diarrhea R19.7 [place] [address] [address] Feb, Depression F32.9 [place] [address] [address] Jan, Otitis media, right H66.91 [place] [address] [address] Jan, [place] [address] [address] Jan, Type 2 diabetes mellitus with diabetic neuropathy, unspecified E11.40 [place] [address] [address] Jan, [place] [address] [address] Jan, Hyperlipemia E78.5 [place] [address] [address] Jan, Type 2 diabetes mellitus with diabetic neuropathy, unspecified E11.40 ; Emphysema, unspecified J43.9 ; CAD (coronary artery disease) I25.10 and Hyperlipemia E78.5 [place] [address] [address] Dec, Allergic rhinitis J30.9 and Fungal infection B49 [place] [address] [address] Dec, [place] [address] [address] Dec, [place] [address] [id number] [place] [address] Dec, Chest pain R07.9 ; CAD (coronary artery disease) I25.10 ; Hypertension I10 and Hyperlipemia E78.5 [place] [id number] [place] [address] Dec, Pain in thoracic spine M54.6 ; Gastro-esophageal reflux disease without esophagitis K21.9 ; Emphysema, unspecified J43.9 and Migraine without aura, not intractable, with status migrainosus G43.001 [place] [address] [address] Dec, [place] [address] [address] Nov, Influenza vaccine administered V04.[address] [address] Nov, [place] [address] [address] Sep, [address] [address] Sep, [address] [address] Sep, CAD (coronary artery disease) 414.00 and Diabetes type 2, uncontrolled 250.[address] [address] Sep, CAD (coronary artery disease) 414.00 ; Diabetes type 2, uncontrolled 250.02 and Migraine 346.90 IMMUNIZATIONS No Known Immunizations SOCIAL HISTORY Never Assessed REASON FOR VISIT Medication refill request PLAN OF CARE VITAL SIGNS MEDICATIONS Medication Instructions Dosage Frequency Start Date End Date Duration Status Hydrocodone-Acetaminophen 7.5-325 MG Orally every 6 hours as needed 1 tablet as needed Apr, 28 days Active RESULTS No Results PROCEDURES [...]
--- OUTSIDE RECORDS SUMMARY | 2018-08-23 17:19 | XMS REPORT ---
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 [employer] Name Role Phone DELEONCLAU Moran Unavailable PROBLEMS Type Condition ICD9-CM Code AZF34-IH Code Onset Dates Condition Status SNOMED Code Problem Neuropathy G62.9 Active 499030950 Problem Other hammer toe(s) (acquired), right foot M20.41 Active 566456897 Problem Other hammer toe(s) (acquired), left foot M20.42 Active 51895246 Problem Anxiety F41.9 Active 30842020 Problem Type 2 diabetes mellitus with diabetic neuropathy, unspecified E11.40 Active 91687645 Problem Hammer toe of left foot M20.42 Active 704318354 Problem Hyperlipemia E78.5 Active 80571773 Problem Hypertension I10 Active 77880924 Problem COPD with exacerbation J44.1 Active 343308857166840 Problem Tobacco abuse Z72.0 Active 586371741 Problem COPD with acute exacerbation J44.1 Active 933903259 Problem Back pain of lumbar region with sciatica M54.40 Active 166489390 Problem Allergic rhinitis J30.9 Active 01947786 Problem Anxiety associated with depression F41.8 Active 234299047 Problem Gastro-esophageal reflux disease without esophagitis K21.9 Active 257980308 Problem Emphysema, unspecified J43.9 Active 06110547 Problem Rheumatoid arthritis involving multiple sites with positive rheumatoid factor M05.79 Active 526527888 Problem Primary insomnia F51.01 Active 1077767 Problem Chronic pain G89.29 Active 10829602 Problem Periodontitis K05.30 Active 71898286 Problem Vitamin D deficiency E55.9 Active 74422458 Problem OAB (overactive bladder) N32.81 Active 897817332 Problem Dependence on nocturnal oxygen therapy Z99.81 Active 11284114778663 ALLERGIES Substance Reaction Event Type Date Status Sulfamethoxazole-Trimethoprim itching Drug Allergy Feb, Active Singulair dizziness Drug Allergy Feb, Active ENCOUNTERS Encounter Location Date Diagnosis [facility], [place] [address] [address] Oct, [facility] [place] [id number] [place] [address] Aug, [facility] [place] [id number] [place] [address] July, [facility] [place] [id number] [place] [address] July, [facility] [place] [id number] [place] [address] July, Chronic pain G89.29 [facility] [place] [id number] [place] [address] July, [facility] [place] [id number] [place] [address] July, Onychomycosis B35.1 ; Hammer toe of left foot M20.42 and Type 2 diabetes mellitus with diabetic neuropathy, unspecified E11.40 [facility] [place] [id number] [place] [address] July, [facility] [place] [id number] [place] [address] July, Chronic pain G89.29 and Neuropathy G62.9 [facility] [place] [id number] [place] [address] July, [facility] [place] [address] [address] July, [facility] [place] [id number] [place] [address] Jun, [facility] [place] [id number] [place] [address] Jun, Chronic pain G89.29 [facility] [place] [id number] [address] Jun, [facility] [place] [address] [address] Jun, [facility] [place] [id number] [place] [address] Jun, Visit for TB skin test Z11.1 [facility] [place] [id number] [place] [address] Jun, [facility] [place] [id number] [place] [address] Jun, [facility] [place] [id number] [place] [address] Jun, Tobacco abuse Z72.0 and Rheumatoid arthritis involving multiple sites with positive rheumatoid factor M05.79 [facility] [place] [id number] [place] [address] Jun, Anxiety F41.9 ; Acute non-recurrent maxillary sinusitis J01.00 and Chronic pain G89.29 [facility] [place] [id number] [place] [address] Jun, [facility] [place] [id number] [place] [address] May, Rheumatoid arthritis involving multiple sites with positive rheumatoid factor M05.79 [facility] [place] [id number] [place] [address] May, Chronic pain G89.29 [facility] [place] [address] [address] May, [facility] [place] [id number] [place] [address] May, [facility] [place] [address] [address] May, [facility] [place] [id number] [place] [address] May, Type 2 diabetes mellitus with diabetic neuropathy, unspecified E11.40 [facility] [id number] [place] [address] May, Type 2 diabetes mellitus with diabetic [...] reflux disease without esophagitis K21.9 [facility] [id number] [place] [address] Apr, Chronic pain G89.29 [facility] [id number] [place] [address] 16 Apr, 2017 Other hammer toe(s) (acquired), left foot M20.42 ; Other hammer toe(s) (acquired), right foot M20.41 ; Type 2 diabetes mellitus with diabetic neuropathy, unspecified E11.40 and Onychomycosis B35.1 [facility] [id number] [place] [address] 2017 Gastro-esophageal reflux disease without esophagitis K21.9 [facility] [id number] [place] [address] Apr, Controlled substance agreement signed Z79.899 [facility] [id number] [place] [address] Mar, Chronic pain G89.29 [facility] [id number] [place] [address] Mar, Emphysema, unspecified J43.9 and Type 2 diabetes mellitus with diabetic neuropathy, unspecified E11.40 [facility] [id number] [place] [address] Mar, Dysuria R30.0 ; Vaginal candidiasis B37.3 and Acute nonintractable headache, unspecified headache type R51 [facility] [id number] [place] [address] Feb, Neuropathy G62.9 and Chronic pain G89.29 [facility] [id number] [place] [address] Feb, Gastro-esophageal reflux disease without esophagitis K21.9 [facility] [place] [address] [address] 13 Feb, 2017 [place] [address] [address] Feb, Rheumatoid arthritis involving multiple sites with positive rheumatoid factor M05.79 and COPD with acute exacerbation J44.1 [facility] [facility] [address] [address] Feb, Vaginal odor N89.8 ; Vaginal irritation N89.8 ; Candidal dermatitis B37.2 and Screening breast examination Z12.31 [facility] [id number] [place] [address] Feb, [facility] [id number] [place] [address] Feb, [facility] [id number] [place] [address] Feb, [facility] [address] [address] Feb, COPD with exacerbation J44.1 ; Tobacco abuse counseling Z71.6 ; Tobacco abuse Z72.0 ; Rheumatoid arthritis involving multiple sites with positive rheumatoid factor M05.79 and Hyperlipemia E78.5 [facility] [id number] [place] [address] Feb, [facility] [address] [place] [id number] Jan, [facility] [id number] [place] [address] 30 Jan, 2017 Chronic pain G89.29 [facility] [id number] [place] [id number] 27 Jan, 2017 Dental examination Z01.20 [facility] [id number] [place] [address] 19 Jan, 2017 Back pain of lumbar region with sciatica M54.40 [facility] [id number] [place] [address] 15 Jan, 2017 Acute bacterial conjunctivitis of both eyes H10.33 [facility] [address] [address] 02 Jan, 2017 Chronic pain G89.29 [facility] [id number] [place] [address] Dec, Type 2 diabetes mellitus with diabetic neuropathy, unspecified E11.40 ; Hypertension I10 ; Hyperlipemia E78.5 ; Gastro-esophageal reflux disease without esophagitis K21.9 ; Anxiety associated with depression F41.8 ; Allergic rhinitis J30.9 ; Neuropathy G62.9 and Dependence on nocturnal oxygen therapy Z99.81 [facility] [id number] [place] [address] Dec, [facility] [id number] [place] [address] Dec, [facility] [id number] [place] [address] Dec, Encounter for immunization Z23 [facility] [id number] [place] [address] 05 Dec, 2016 Type 2 diabetes mellitus with diabetic neuropathy, unspecified E11.40 and Chronic pain G89.29 [facility] [id number] [place] [address] 11 Nov, 2016 Gastro-esophageal reflux disease without esophagitis K21.9 [facility] [id number] [place] [address] 11 Nov, 2016 Peripheral edema R60.9 and Chest pain in adult R07.9 [facility] [id number] [place] [address] 07 Nov, 2016 Chronic pain G89.29 [facility] [id number] [place] [address] 31 Oct, 2016 [facility] [facility] [address] [address] Oct, [facility] [id number] [place] [address] 17 Oct, 2016 Rheumatoid arthritis with rheumatoid factor of right wrist without organ or systems involvement M05.731 [facility] [id number] [place] [address] 15 Oct, 2016 [facility] [place] [id number] [place] [address] Oct, Acute exacerbation of chronic obstructive pulmonary disease (COPD) J44.1 and Canker sore K12.0 [facility] [address] [address] Oct, [facility] [id number] [place] [address] Oct, [facility] [id number] [place] [address] Oct, Chronic pain G89.29 [facility] [id number] [place] [id number] Oct, Dental examination Z01.20 [facility] [id number] [place] [address] Oct, Dental examination Z01.20 and Periodontitis K05.30 [facility] [id number] [place] [address] [id number] Oct, Dental examination Z01.20 [facility] [address] [address] Sep, Abscess L02.91 [facility] [place] [id number] [place] [address] Sep, Dental examination Z01.20 [facility] [place] [id number] [place] [address] Sep, [facility] [id number] [place] [id number] Sep, Dental examination Z01.20 and Dental caries K02.9 [facility] [place] [id number] [place] [address] Sep, Primary insomnia F51.01 and Anxiety associated with depression F41.8 [facility] [id number] [place] [address] Sep, Rheumatoid arthritis with rheumatoid factor of right wrist without organ or systems involvement M05.731 [facility] [id number] [place] [address] Sep, Chronic pain G89.29 [facility] [id number] [place] [address] Sep, Type 2 diabetes mellitus with diabetic neuropathy, unspecified E11.40 ; Emphysema, unspecified J43.9 ; Gastro-esophageal reflux disease without esophagitis K21.9 ; Hypertension I10 ; Hyperlipemia E78.5 ; Anxiety associated with depression F41.8 ; Chronic pain G89.29 ; Vitamin D deficiency E55.9 and Primary insomnia F51.01 [facility] [id number] [place] [address] 16 Aug, 2016 Anxiety associated with depression F41.8 [facility] [id number] [place] [address] Aug, Chronic pain G89.29 and Neuropathy G62.9 [facility] [id number] [place] [address] Aug, Type 2 diabetes mellitus with diabetic neuropathy, unspecified E11.40 ; Rheumatoid arthritis involving multiple sites with positive rheumatoid factor M05.79 ; Vitamin D deficiency E55.9 ; Anxiety associated with depression F41.8 and Primary insomnia F51.01 [facility] [id number] [address] July, Emphysema, unspecified J43.9 [facility] [id number] [place] [address] July, Allergic rhinitis J30.9 [facility] [id number] [place] [address] July, Allergic rhinitis J30.9 ; Emphysema, unspecified J43.9 and Rheumatoid arthritis with rheumatoid factor of right wrist without organ or systems involvement M05.731 [facility] [id number] [place] [address] July, Neuropathy G62.9 and Chronic pain G89.29 [facility] [id number] [place] [address] July, Rheumatoid arthritis involving multiple sites with positive rheumatoid factor M05.79 [facility] [id number] [place] [address] Jun, [facility] [facility] [id number] [address] Jun, Neuropathy G62.9 and Chronic pain G89.29 [facility] [id number] [address] May, Neuropathy G62.9 and Chronic pain G89.29 [facility] [id number] [place] [address] May, [facility] [id number] [place] [address] May, [facility] [id number] [place] [address] May, Type 2 diabetes mellitus with diabetic [...] with positive rheumatoid factor M05.732 [place] [address] [address] Apr, Chronic pain G89.29 [place] [address] [address] Mar, Gastro-esophageal reflux disease without esophagitis K21.9 [facility] [address] [address] Mar, [place] [address] [address] Mar, Rheumatoid arthritis with rheumatoid factor of right wrist without organ or systems involvement M05.731 [facility] [id number] [place] [address] Mar, Chronic pain G89.29 [facility] [address] [address] Feb, Hyperlipemia E78.5 [facility] [address] [address] Feb, Abnormal breath sounds R06.89 ; COPD with exacerbation J44.1 and Fatigue, unspecified type R53.83 [facility] [id number] [place] [address] Feb, Neuropathy G62.9 ; Abnormal lung sounds R09.89 and Bronchitis J40 [facility] [address] [place] [address] 18 Feb, 2016 Bronchitis J40 [place] [id number] [place] [address] Feb, Chronic pain G89.29 [facility] [id number] [place] [address] Jan, Type 2 diabetes mellitus with diabetic neuropathy, unspecified E11.40 ; Rheumatoid arthritis with rheumatoid factor of right wrist without organ or systems involvement M05.731 and Hyperlipemia E78.5 [facility] [id number] [place] [address] Jan, Rheumatoid arthritis with rheumatoid factor of right wrist without organ or systems involvement M05.731 [facility] [id number] [place] [address] Jan, De Quervain's disease (radial styloid tenosynovitis) M65.4 ; Closed nondisplaced fracture of scaphoid of left wrist, unspecified portion of scaphoid, initial encounter S62.002A and Peripheral tear of medial meniscus of left knee, unspecified whether old or current tear, initial encounter S83.222A [facility] [id number] [place] [address] Jan, Hypertension I10 ; Type 2 diabetes mellitus with diabetic neuropathy, unspecified E11.40 ; Hyperlipemia E78.5 ; Allergic rhinitis J30.9 ; Neuropathy G62.9 ; Rheumatoid arthritis with rheumatoid factor of right wrist without organ or systems involvement M05.731 ; Acute non-recurrent maxillary sinusitis J01.00 and Chronic pain G89.29 [facility] [address] [place] [address] Dec, [facility] [id number] [place] [address] Dec, [facility] [id number] [place] [address] Dec, Type 2 diabetes mellitus with diabetic neuropathy, unspecified E11.40 ; Emphysema, unspecified J43.9 ; Gastro-esophageal reflux disease without esophagitis K21.9 ; Hypertension I10 ; Hyperlipemia E78.5 ; Rheumatoid arthritis with rheumatoid factor of right wrist without organ or systems involvement M05.731 ; Elevated white blood cell count, unspecified D72.829 ; Acute non- recurrent frontal sinusitis J01.10 and Chronic pain G89.29 [place] [address] [address] Nov, [place] [address] [address] Nov, Elevated white blood cell count, unspecified D72.829 ; Encounter for immunization Z23 ; Rheumatoid arthritis with rheumatoid factor of right wrist without organ or systems involvement M05.731 ; Injury of left hand S69.92XA ; Pain in left knee M25.562 and Other chronic pain G89.29 [place] [address] [address] Nov, [place] [address] [address] Nov, [place] [address] [address] Oct, [place] [id number] [place] [address] Oct, Hyperlipemia E78.5 [place] [address] [address] Oct, [place] [id number] [place] [address] Oct, Type 2 diabetes mellitus with diabetic neuropathy, unspecified E11.40 ; Neuropathy G62.9 ; Hypertension I10 ; Chronic pain G89.29 and Hyperlipemia E78.5 [place] [address] [address] Oct, Emphysema, unspecified J43.9 and Rheumatoid arthritis of left wrist without organ or system involvement with positive rheumatoid factor M05.732 [facility] [id number] [place] [address] Sep, Chronic pain syndrome G89.4 [facility] [id number] [place] [address] Sep, [place] [address] [address] Sep, [place] [id number] [place] [address] Sep, Closed nondisplaced fracture of scaphoid of left wrist, unspecified portion of scaphoid, initial encounter S62.002A [place] [id number] [place] [address] Sep, Type 2 diabetes mellitus with diabetic neuropathy, unspecified E11.40 ; Hypertension I10 ; Hyperlipemia E78.5 and Acute non-recurrent maxillary sinusitis J01.00 [facility] [facility] [id number] [place] [address] Sep, [facility] [id number] [place] [address] Sep, [facility] [facility] [id number] [place] [address] Sep, [facility] [id number] [place] [address] Sep, [place] [id number] [place] [address] Aug, Epigastric pain R10.13 and Right upper quadrant pain R10.11 [place] [id number] [place] [address] Aug, Closed nondisplaced fracture of scaphoid of left wrist, unspecified portion of scaphoid, initial encounter S62.002A [place] [address] [address] Aug, [facility] [place] [id number] [place] [address] Aug, [facility] [id number] [place] [address] Aug, Shortness of breath R06.02 ; Epigastric pain R10.13 and Injury of left lower arm, initial encounter S59.912A [facility] [place] [id number] [place] [address] Aug, Coronary artery disease involving [place] heart with angina pectoris, unspecified vessel or lesion type I25.119 ; Pulmonary emphysema, unspecified emphysema type J43.9 and Snoring R06.83 [place] [id number] [place] [address] Aug, [place] [id number] [place] [address] Aug, Emphysema, unspecified J43.9 ; Atherosclerotic heart disease of [place] coronary artery without angina pectoris I25.10 and Hypertension I10 [facility] [place] [id number] [place] [address] July, [place] [id number] [place] [address] July, Closed nondisplaced fracture of scaphoid of left wrist, unspecified portion of scaphoid, initial encounter S62.002A [place] [address] [place] [address] July, [place] [id number] [place] [address] July, Type 2 diabetes mellitus with diabetic neuropathy, unspecified E11.40 ; Emphysema, unspecified J43.9 ; Atherosclerotic heart disease of [place] coronary artery without angina pectoris I25.10 ; [...] agents L24.89 and Hospital discharge follow-up Z09 [facility] [place] [id number] [place] [address] July, [facility] [place] [id number] [place] [id number] July, Type 2 diabetes mellitus with diabetic neuropathy, unspecified E11.40 [place] [id number] [place] [id number] July, Type 2 diabetes mellitus with diabetic neuropathy, unspecified E11.40 and Rheumatoid arthritis of left wrist without organ or system involvement with positive rheumatoid factor M05.732 [place] [id number] [place] [id number] July, [facility], [place] [id number] [place] [id number] July, [facility], [place] [id number] [place] [phone] Jun, [facility], [place] [id number] [place] [id number] Jun, [facility], [place] [id number] [place] [address] Jun, 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 [facility], [place] [address] [place] [id number] [place] [id number] Jun, [facility], [place] [id number] [place] [address] Jun, 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 [place] [id number] [place] [address] Jun, [facility], [place] [id number] [place] [address] Jun, [place] [id number] [place] [address] Jun, Encounter for PPD test Z11.1 ; Rheumatoid arthritis with rheumatoid factor of right wrist without organ or systems involvement M05.731 and Rheumatoid arthritis of left wrist without organ or system involvement with positive rheumatoid factor M05.732 [place] [id number] [place] [address] Jun, Type 2 diabetes mellitus with diabetic neuropathy, unspecified E11.40 [place] [id number] [place] [address] May, Type 2 diabetes mellitus with diabetic neuropathy, unspecified E11.40 ; Emphysema, unspecified J43.9 ; Rheumatoid arthritis with rheumatoid factor of right wrist without organ or systems involvement M05.731 ; Rheumatoid arthritis of left wrist without organ or system involvement with positive rheumatoid factor M05.732 and Chronic pain G89.29 [place] [id number] [place] [address] May, [place] [address] [address] May, Swelling of hand joint M25.449 ; Ankle swelling M25.473 and Joint pain M25.50 [place] [address] [id number] [place] [address] May, Emphysema, unspecified J43.9 [place] [id number] [place] [address] May, Gastroenteritis K52.9 and Hypertension I10 [place] [address] [address] Apr, [place] [id number] [place] [address] Apr, [place] [id number] [place] [address] Apr, [place] [id number] [place] [address] Apr, Type 2 diabetes mellitus with diabetic neuropathy, unspecified E11.40 ; Emphysema, unspecified J43.9 ; Atherosclerotic heart disease of [place] coronary artery without angina pectoris I25.10 ; Migraine without aura, not intractable, with status migrainosus G43.001 ; Gastro-esophageal reflux disease without esophagitis K21.9 ; CAD (coronary artery disease) I25.10 ; Hypertension I10 ; Hyperlipemia E78.5 ; Allergic rhinitis J30.9 ; Neuropathy G62.9 ; Anxiety associated with depression F41.8 and Injury of left hand S69.92XA [address] [address] Apr, [address] [address] Apr, [address] [address] Apr, Type 2 diabetes mellitus with diabetic neuropathy, unspecified E11.40 ; Emphysema, unspecified J43.9 ; Essential (primary) hypertension I10 ; Atherosclerotic heart disease of [place] coronary artery without angina pectoris I25.10 ; Gastro-esophageal reflux disease without esophagitis K21.9 ; CAD (coronary artery disease) I25.10 ; Hyperlipemia E78.5 ; Hypertension I10 ; History of solitary pulmonary nodule Z87.898 ; Allergic rhinitis J30.9 ; Chronic pain G89.29 and Depression with anxiety F41.8 [place] [address] [id number] [place] [address] Mar, [address] [address] Mar, Allergic rhinitis J30.9 ; URI (upper respiratory infection) J06.9 and Other viral agents as the cause of diseases classified elsewhere B97.89 [facility] [id number] [place] [address] Feb, Acute nasopharyngitis [common cold] J00 and Acute diarrhea R19.7 [place] [id number] [place] [address] Feb, Depression F32.9 [place] [id number] [place] [address] Jan, Otitis media, right H66.91 [place] [address] [address] Jan, [place] [id number] [place] [address] Jan, Type 2 diabetes mellitus with diabetic neuropathy, unspecified E11.40 [place] [id number] [place] [address] Jan, [place] [address] [address] Jan, Hyperlipemia E78.5 [place] [id number] [place] [address] Jan, Type 2 diabetes mellitus with diabetic neuropathy, unspecified E11.40 ; Emphysema, unspecified J43.9 ; CAD (coronary artery disease) I25.10 and Hyperlipemia E78.5 [place] [id number] [place] [address] Dec, Allergic rhinitis J30.9 and Fungal infection B49 [place] [id number] [place] [address] Dec, [place] [address] [address] Dec, [place] [id number] [place] [address] Dec, Chest pain R07.9 ; CAD (coronary artery disease) I25.10 ; Hypertension I10 and Hyperlipemia E78.5 [place] [address] [place] [id number] [place] [address] Dec, Pain in thoracic spine M54.6 ; Gastro-esophageal reflux disease without esophagitis K21.9 ; Emphysema, unspecified J43.9 and Migraine without aura, not intractable, with status migrainosus G43.001 [place] [id number] [place] [address] Dec, [place] [address] [address] Nov, Influenza vaccine administered V04.[address] [address] Nov, [place] [address] [address] Sep, [place] [address] [address] Sep, [place] [address] [address] Sep, CAD (coronary artery disease) 414.00 and Diabetes type 2, uncontrolled 250.02 [place] [address] [address] Sep, CAD (coronary artery disease) 414.00 ; Diabetes type 2, uncontrolled 250.02 and Migraine 346.90 IMMUNIZATIONS No Known Immunizations SOCIAL HISTORY Never Assessed REASON FOR VISIT vaginal discomfort -- cuco higgins PLAN OF CARE Activity Details Follow Up prn Reason: VITAL SIGNS Height 66 in 2017-02-24 Weight 189.0 lbs 2017-02-24 Temperature 98.0 degrees Fahrenheit 2017-02-24 Heart Rate 76 bpm 2017-02-24 Respiratory Rate 20 2017-02-24 BMI 30.50 kg/m2 2017-02-24 Blood pressure systolic 126 mmHg 2017-02-24 Blood pressure diastolic 68 mmHg 2017-02-24 MEDICATIONS Medication Instructions Dosage Frequency Start Date End Date Duration Status Baclofen 10 MG TAKE ONE TABLET BY MOUTH THREE TIMES DAILY WITH FOOD OR MILK 90 Active Qnasl 80 MCG/ACT Nasally Once a day 2 puffs in each nostril 24h July, 30 day(s) Active Methotrexate 2.5 MG Orally once weekly 8 TABLETS 90 days Active Depend Adjustable Underwear Lg 1 as directed 3 times a day use one depends three times per day as needed 8h May, 12 months Active Quad Cane as directed May, Active Victoza 18 MG/3ML Subcutaneous Once a day 1.8mg 24h 30 Active Atorvastatin Calcium 10 mg Orally Once a day 1 tablet 24h 30 Active Symbicort 160-4.5 MCG/ACT Inhalation Twice a day Needs to make an appointment 2 puffs 30 Active Citalopram Hydrobromide 20 mg Orally Once a day 1 tablet 24h 30 Active Plaquenil 200 mg Orally Once a day 1 tablet with food or milk 24h 30 Active Folic Acid 1 MG Orally Once a day 1 tablet 24h 90 Active Metformin HCl 1000 MG Orally 2 times a day TAKE ONE TABLET BY MOUTH TWICE DAILY WITH MEALS 12h 30 Active Aspirin Adult Low Strength 81 MG Orally Once a day 1 tablet 24h 90 Active Easy Touch Pen [place] 32G X 4 MM sq 4 times a day as directed 6h Sep, 90 days Active Blood Glucose Test Test Strips In Vitro 4 times a day test blood sugar 6h Jun, Active Aleve 220 MG Orally every 12 hrs 1 tablet 12h Not-Taking Cetirizine HCl 10 Orally Once a day TAKE 1 TABLET BY MOUTH DAILY 24h Active Metoprolol Tartrate 25 MG Orally Twice a day TAKE ONE TABLET BY MOUTH TWICE DAILY 12h 30 Active Protonix 40 mg Orally Once a day 1 tablet 24h Dec, 90 days Active Nystatin-Triamcinolone 232963-9.1 UNIT/GM Externally Twice a day apply thin layer to irritated abdominal areas 12h July, Active Lisinopril 20 mg Orally Once a day 1 tablet 24h 30 Active Blood Glucose Monitor System w/Device as directed July, Active Fish Oil 1200 MG Orally Once a day 1 capsule 24h Active Mucinex 600 MG Orally every 12 hrs 1 tablet as needed 12h Mar, Active Ventolin HFA 108 (90 Base) MCG/ACT Inhalation every 4 hrs Needs appointment 2 puffs as needed 17 Active Trazodone HCl 50 mg Orally Once a day 1 tablet at bedtime as needed 24h 30 Active Oxygen Active BusPIRone HCl 10 mg Orally TID PRN 1 tablet Dec, 30 days Active Albuterol Sulfate (2.5 MG/3ML) 0.083% Inhalation Three times a day 3 ml 8h 30 Active Hydrocodone-Acetaminophen 7.5-325 MG Orally every 6 hours as needed 1 tablet as needed Jan, 28 days Active Lyrica 100 mg Orally Three times a day 1 capsule 8h 31 Dec, 2016 30 days Active Nicotine 21 MG/24HR Transdermal Once a day 1 patch to skin 24h Feb, 30 day(s) Active RESULTS No Results PROCEDURES Procedure Date Ordered Result Body Site LAB NOT BILLED BY [facility] [employer] Feb 24, 2017 Bacterial Vaginosis In House Feb 24, 2017 URINALYSIS, AUTO, W/O SCOPE Feb 24, 2017 INSTRUCTIONS MEDICATIONS ADMINISTERED No Known Medications [...] Medical History Atherosclerotic heart disease of [place] coronary artery without angina pectoris Medical History [...]
--- OUTSIDE RECORDS SUMMARY | 2018-08-23 17:20 | XMS REPORT ---
Author Author BRANDIN REYES Organization [facility] Address [address] [place] [address] Care Team Providers Care Chief Deputy Name Role Phone BRANDIN REYES Unavailable PROBLEMS Type Condition ICD9-CM Code DAQ59-II Code Onset Dates Condition Status SNOMED Code Problem Primary insomnia F51.01 Active 6791385 Problem Neuropathy G62.9 Active 563872931 Problem Periodontitis K05.30 Active 27710719 Problem Atherosclerotic heart disease of [place] coronary artery without angina pectoris I25.10 Active 354041330597104 Problem Vitamin D deficiency E55.9 Active 53758536 Problem Hammer toe of left foot M20.42 Active 799570931 Problem Other hammer toe(s) (acquired), left foot M20.42 Active 11830909 Problem Dependence on nocturnal oxygen therapy Z99.81 Active 57396297287553 Problem Tobacco abuse Z72.0 Active 689013254 Problem Other hammer toe(s) (acquired), right foot M20.41 Active 341480035 Problem Gastro-esophageal reflux disease without esophagitis K21.9 Active 797501452 Problem Emphysema, unspecified J43.9 Active 49956506 Problem Hypertension I10 Active 84681290 Problem Hyperlipemia E78.5 Active 94507952 Problem Anxiety associated with depression F41.8 Active 832033059 Problem Chronic pain G89.29 Active 05349120 Problem Type 2 diabetes mellitus with diabetic neuropathy, unspecified E11.40 Active 27766587 Problem OAB (overactive bladder) N32.81 Active 896314864 Problem Allergic rhinitis J30.9 Active 14839334 Problem Rheumatoid arthritis involving multiple sites with positive rheumatoid factor M05.79 Active 269772796 ALLERGIES Substance Reaction Event Type Date Status Sulfamethoxazole-Trimethoprim itching Drug Allergy Feb, Active Singulair dizziness Drug Allergy Feb, Active ENCOUNTERS Encounter Location Date Diagnosis [facility] [address] [facility] [id number] [address] Oct, [place] [id number] [place] [address] Aug, Type 2 diabetes mellitus with diabetic neuropathy, unspecified E11.40 ; Hypertension I10 ; Hyperlipemia E78.5 ; Gastro-esophageal reflux disease without esophagitis K21.9 ; Emphysema, unspecified J43.9 ; Anxiety associated with depression F41.8 ; Vitamin D deficiency E55.9 ; Chronic pain G89.29 ; Tobacco abuse Z72.0 ; Overweight (BMI 25.0-29.9) E66.3 ; Atherosclerotic heart disease of [place] coronary artery without angina pectoris I25.10 ; OAB (overactive bladder) N32.81 and Primary insomnia F51.01 [place] [id number] [place] [address] July, [place] [address] [address] July, [place] [address] [address] July, Chronic pain G89.29 [place] [address] [address] July, [place] [address] [address] July, Onychomycosis B35.1 ; Hammer toe of left foot M20.42 and Type 2 diabetes mellitus with diabetic neuropathy, unspecified E11.40 [place] [id number] [place] [address] July, [place] [address] [address] July, Chronic pain G89.29 and Neuropathy G62.9 [place] [address] [address] July, [place] [address] [address] July, [facility] [id number] [place] [address] Jun, [facility] [id number] [place] [address] Jun, Chronic pain G89.29 [facility] [id number] [place] [address] Jun, [facility] [id number] [place] [address] Jun, [facility] [id number] [place] [address] Jun, Visit for TB skin test Z11.1 [facility] [id number] [place] [address] 16 Jun, 2017 [facility] [id number] [place] [address] Jun, [facility] [id number] [place] [address] Jun, Tobacco abuse Z72.0 and Rheumatoid arthritis involving multiple sites with positive rheumatoid factor M05.79 [facility] [id number] [place] [address] Jun, Anxiety F41.9 ; Acute non-recurrent maxillary sinusitis J01.00 and Chronic pain G89.29 [facility] [id number] [place] [address] Jun, [facility] [id number] [place] [address] May, Rheumatoid arthritis involving multiple sites with positive rheumatoid factor M05.79 [facility] [id number] [place] [address] May, Chronic pain G89.29 [facility] [id number] [place] [address] May, [place] [address] [address] May, [place] [id number] [place] [address] May, [place] [id number] [place] [address] May, Type 2 diabetes mellitus with diabetic neuropathy, unspecified E11.40 [place] [id number] [place] [address] May, Type 2 diabetes mellitus with diabetic neuropathy, unspecified E11.40 ; Emphysema, unspecified J43.9 ; Hypertension I10 ; Hyperlipemia E78.5 ; Vitamin D deficiency E55.9 ; Right medial knee pain M25.561 ; Controlled substance agreement signed Z79.899 ; Chronic pain G89.29 ; Allergic rhinitis J30.9 ; Anxiety associated with depression F41.8 ; Neuropathy G62.9 and Gastro- esophageal reflux disease without esophagitis K21.9 [place] [id number] [place] [address] Apr, Chronic pain G89.29 [place] [id number] [place] [address] 16 Apr, 2017 Other hammer toe(s) (acquired), left foot M20.42 ; Other hammer toe(s) (acquired), right foot M20.41 ; Type 2 diabetes mellitus with diabetic neuropathy, unspecified E11.40 and Onychomycosis B35.1 [place] [id number] [place] [address] Apr, Gastro-esophageal reflux disease without esophagitis K21.9 [place] [id number] [place] [address] Apr, Controlled substance agreement signed Z79.899 [place] [id number] [place] [address] Mar, Chronic pain G89.29 [facility] [id number] [place] [address] Mar, Emphysema, unspecified J43.9 and Type 2 diabetes mellitus with diabetic neuropathy, unspecified E11.40 [facility] [id number] [place] [address] Mar, Dysuria R30.0 ; Vaginal candidiasis B37.3 and Acute nonintractable headache, unspecified headache type R51 [facility] [id number] [place] [address] Feb, Neuropathy G62.9 and Chronic pain G89.29 [place] [address] [address] Feb, Gastro-esophageal reflux disease without esophagitis K21.9 [place] [address] [address] Feb, [facility] [address] [address] Feb, Rheumatoid arthritis involving multiple sites with positive rheumatoid factor M05.79 and COPD with acute exacerbation J44.1 [place] [id number] [place] [address] Feb, Vaginal odor N89.8 ; Vaginal irritation N89.8 ; Candidal dermatitis B37.2 and Screening breast examination Z12.31 [place] [id number] [place] [address] Feb, [place] [id number] [place] [address] Feb, [place] [address] [address] Feb, [place] [id number] [place] [address] Feb, COPD with exacerbation J44.1 ; Tobacco abuse counseling Z71.6 ; Tobacco abuse Z72.0 ; Rheumatoid arthritis involving multiple sites with positive rheumatoid factor M05.79 and Hyperlipemia E78.5 [facility] [id number] [place] [address] Feb, [facility] [id number] [place] [id number] Jan, [facility] [address] [address] Jan, Chronic pain G89.29 [facility] [id number] [place] [id number] Jan, Dental examination Z01.20 [facility] [address] [address] Jan, Back pain of lumbar region with sciatica M54.40 [facility] [id number] [place] [address] Jan, Acute bacterial conjunctivitis of both eyes H10.33 [place] [id number] [place] [address] Jan, Chronic pain G89.29 [place] [id number] [place] [address] Dec, Type 2 diabetes mellitus with diabetic neuropathy, unspecified E11.40 ; Hypertension I10 ; Hyperlipemia E78.5 ; Gastro-esophageal reflux disease without esophagitis K21.9 ; Anxiety associated with depression F41.8 ; Allergic rhinitis J30.9 ; Neuropathy G62.9 and Dependence on nocturnal oxygen therapy Z99.81 [place] [id number] [place] [address] Dec, [place] [id number] [place] [address] Dec, [place] [id number] [place] [address] Dec, Encounter for immunization Z23 [place] [id number] [place] [address] 05 Dec, 2016 Type 2 diabetes mellitus with diabetic neuropathy, unspecified E11.40 and Chronic pain G89.29 [facility] [address] [address] 11 Nov, 2016 Gastro-esophageal reflux disease without esophagitis K21.9 [place] [address] [address] 11 Nov, 2016 Peripheral edema R60.9 and Chest pain in adult R07.9 [facility] [address] [address] 07 Nov, 2016 Chronic pain G89.29 [facility] [address] [address] 31 Oct, 2016 [place] [address] [address] 30 Oct, 2016 [facility] [address] [address] 17 Oct, 2016 Rheumatoid arthritis with rheumatoid factor of right wrist without organ or systems involvement M05.731 [facility] [address] [address] 15 Oct, 2016 [facility] [id number] [place] [address] Oct, Acute exacerbation of chronic obstructive pulmonary disease (COPD) J44.1 and Canker sore K12.0 [facility] [id number] [place] [address] 14 Oct, 2016 [facility] [address] [address] Oct, [facility] [address] [address] 09 Oct, 2016 Chronic pain G89.29 [facility] [address] [id number] Oct, Dental examination Z01.20 [facility] [id number] [place] [address] Oct, Dental examination Z01.20 and Periodontitis K05.30 [facility] [id number] [place] [id number] Oct, Dental examination Z01.20 [facility] [id number] [place] [address] Sep, Abscess L02.91 [facility] [id number] [place] [address] Sep, Dental examination Z01.20 [facility] [id number] [place] [address] Sep, [facility] [id number] [place] [id number] Sep, Dental examination Z01.20 and Dental caries K02.9 [facility] [id number] [place] [address] Sep, Primary insomnia F51.01 and Anxiety associated with depression F41.8 [place] [id number] [place] [address] Sep, Rheumatoid arthritis with rheumatoid factor of right wrist without organ or systems involvement M05.731 [place] [id number] [place] [address] Sep, Chronic pain G89.29 [place] [id number] [place] [address] Sep, Type 2 diabetes mellitus with diabetic neuropathy, unspecified E11.40 ; Emphysema, unspecified J43.9 ; Gastro-esophageal reflux disease without esophagitis K21.9 ; Hypertension I10 ; Hyperlipemia E78.5 ; Anxiety associated with depression F41.8 ; Chronic pain G89.29 ; Vitamin D deficiency E55.9 and Primary insomnia F51.01 [place] [address] [place] [address] 16 Aug, 2016 Anxiety associated with depression F41.8 [place] [id number] [place] [address] 13 Aug, 2016 Chronic pain G89.29 and Neuropathy G62.9 [place] [id number] [place] [address] Aug, Type 2 diabetes mellitus with diabetic neuropathy, unspecified E11.40 ; Rheumatoid arthritis involving multiple sites with positive rheumatoid factor M05.79 ; Vitamin D deficiency E55.9 ; Anxiety associated with depression F41.8 and Primary insomnia F51.01 [place] [address] [address] July, Emphysema, unspecified J43.9 [place] [id number] [place] [address] July, Allergic rhinitis J30.9 [place] [address] [address] July, Allergic rhinitis J30.9 ; Emphysema, unspecified J43.9 and Rheumatoid arthritis with rheumatoid factor of right wrist without organ or systems involvement M05.731 [place] [id number] [place] [address] July, Neuropathy G62.9 and Chronic pain G89.29 [place] [id number] [place] [address] July, Rheumatoid arthritis involving multiple sites with positive rheumatoid factor M05.79 [place] [id number] [place] [address] Jun, [place] [id number] [place] [address] Jun, Neuropathy G62.9 and Chronic pain G89.29 [place] [id number] [place] [address] May, Neuropathy G62.9 and Chronic pain G89.29 [place] [id number] [place] [address] May, [place] [address] [address] May, [place] [id number] [place] [address] May, Type 2 diabetes mellitus with diabetic [...] system involvement with positive rheumatoid factor M05.732 [place] [id number] [place] [address] Apr, Chronic pain G89.29 [place] [address] [address] Mar, Gastro-esophageal reflux disease without esophagitis K21.9 [place] [id number] [place] [address] Mar, [place] [id number] [place] [address] Mar, Rheumatoid arthritis with rheumatoid factor of right wrist without organ or systems involvement M05.731 [place] [id number] [place] [address] Mar, Chronic pain G89.29 [place] [id number] [place] [address] Feb, Hyperlipemia E78.5 [place] [address] [address] Feb, Abnormal breath sounds R06.89 ; COPD with exacerbation J44.1 and Fatigue, unspecified type R53.83 [place] [address] [address] Feb, Neuropathy G62.9 ; Abnormal lung sounds R09.89 and Bronchitis J40 [facility] [address] [address] Feb, Bronchitis J40 [place] [address] [address] Feb, Chronic pain G89.29 [place] [address] [address] Jan, Type 2 diabetes mellitus with diabetic neuropathy, unspecified E11.40 ; Rheumatoid arthritis with rheumatoid factor of right wrist without organ or systems involvement M05.731 and Hyperlipemia E78.5 [place] [address] [address] Jan, Rheumatoid arthritis with rheumatoid factor of right wrist without organ or systems involvement M05.731 [place] [address] [address] Jan, De Quervain's disease (radial styloid tenosynovitis) M65.4 ; Closed nondisplaced fracture of scaphoid of left wrist, unspecified portion of scaphoid, initial encounter S62.002A and Peripheral tear of medial meniscus of left knee, unspecified whether old or current tear, initial encounter S83.222A [place] [address] [address] Jan, Hypertension I10 ; Type 2 diabetes mellitus with diabetic neuropathy, unspecified E11.40 ; Hyperlipemia E78.5 ; Allergic rhinitis J30.9 ; Neuropathy G62.9 ; Rheumatoid arthritis with rheumatoid factor of right wrist without organ or systems involvement M05.731 ; Acute non-recurrent maxillary sinusitis J01.00 and Chronic pain G89.29 [place] [id number] [place] [address] Dec, [place] [id number] [place] [address] Dec, [place] [id number] [place] [address] Dec, Type 2 diabetes mellitus with diabetic neuropathy, unspecified E11.40 ; Emphysema, unspecified J43.9 ; Gastro-esophageal reflux disease without esophagitis K21.9 ; Hypertension I10 ; Hyperlipemia E78.5 ; Rheumatoid arthritis with rheumatoid factor of right wrist without organ or systems involvement M05.731 ; Elevated white blood cell count, unspecified D72.829 ; Acute non- recurrent frontal sinusitis J01.10 and Chronic pain G89.29 [place] [id number] [place] [address] Nov, [place] [id number] [place] [address] Nov, Elevated white blood cell count, unspecified D72.829 ; Encounter for immunization Z23 ; Rheumatoid arthritis with rheumatoid factor of right wrist without organ or systems involvement M05.731 ; Injury of left hand S69.92XA ; Pain in left knee M25.562 and Other chronic pain G89.29 [place] [id number] [place] [address] Nov, [place] [id number] [place] [address] Nov, [place] [id number] [place] [address] Oct, [place] [id number] [place] [address] Oct, Hyperlipemia E78.5 [place] [id number] [place] [address] Oct, [place] [address] [place] [address] Oct, Type 2 diabetes mellitus with diabetic neuropathy, unspecified E11.40 ; Neuropathy G62.9 ; Hypertension I10 ; Chronic pain G89.29 and Hyperlipemia E78.5 [facility] [id number] [place] [address] Oct, Emphysema, unspecified J43.9 and Rheumatoid arthritis of left wrist without organ or system involvement with positive rheumatoid factor M05.732 [place] [id number] [place] [address] Sep, Chronic pain syndrome G89.4 [place] [address] [address] Sep, [place] [address] [address] Sep, [place] [address] [address] Sep, Closed nondisplaced fracture of scaphoid of left wrist, unspecified portion of scaphoid, initial encounter S62.002A [place] [id number] [place] [address] Sep, Type 2 diabetes mellitus with diabetic neuropathy, unspecified E11.40 ; Hypertension I10 ; Hyperlipemia E78.5 and Acute non-recurrent maxillary sinusitis J01.00 [place] [id number] [place] [address] Sep, [place] [id number] [place] [address] Sep, [place] [id number] [place] [address] Sep, [place] [id number] [place] [address] Sep, [place] [address] [address] Aug, Epigastric pain R10.13 and Right upper quadrant pain R10.11 [place] [id number] [place] [address] Aug, Closed nondisplaced fracture of scaphoid of left wrist, unspecified portion of scaphoid, initial encounter S62.002A [place] [address] [address] Aug, [place] [address] [address] Aug, [facility] [address] [address] Aug, Shortness of breath R06.02 ; Epigastric pain R10.13 and Injury of left lower arm, initial encounter S59.912A [place] [address] [address] Aug, Coronary artery disease involving big sandy heart with angina pectoris, unspecified vessel or lesion type I25.119 ; Pulmonary emphysema, unspecified emphysema type J43.9 and Snoring R06.83 [place] [address] [address] Aug, [place] [id number] [place] [address] Aug, Emphysema, unspecified J43.9 ; Atherosclerotic heart disease of big [place] coronary artery without angina pectoris I25.10 and Hypertension I10 [place] [id number] [place] [address] July, [place] [address] [address] July, Closed nondisplaced fracture of scaphoid of left wrist, unspecified portion of scaphoid, initial encounter S62.002A [place] [address] [address] July, [place] [address] [address] July, Type 2 diabetes mellitus with diabetic neuropathy, unspecified E11.40 ; Emphysema, unspecified J43.9 ; Atherosclerotic heart disease of big [place] coronary artery without angina pectoris I25.10 ; [...] agents L24.89 and Hospital discharge follow-up Z09 [place] [id number] [place] [address] July, [place] [id number] [place] [address] July, Type 2 diabetes mellitus with diabetic neuropathy, unspecified E11.40 [place] [id number] [place] [address] July, Type 2 diabetes mellitus with diabetic neuropathy, unspecified E11.40 and Rheumatoid arthritis of left wrist without organ or system involvement with positive rheumatoid factor M05.732 [place] [address] [address] July, [place] [id number] [address] July, [place] [id number] [place] [address] Jun, [place] [id number] [place] [address] Jun, [place] [id number] [place] [address] Jun, 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 [place] [id number] [place] [address] Jun, [place] [address] [address] Jun, 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 [place] [id number] [place] [address] Jun, [place] [id number] [place] [id number] Jun, [place] [id number] [place] [address] Jun, Encounter for PPD test Z11.1 ; Rheumatoid arthritis with rheumatoid factor of right wrist without organ or systems involvement M05.731 and Rheumatoid arthritis of left wrist without organ or system involvement with positive rheumatoid factor M05.732 [place] [id number] [place] [address] Jun, Type 2 diabetes mellitus with diabetic neuropathy, unspecified E11.40 [place] [id number] [place] [address] May, Type 2 diabetes mellitus with diabetic neuropathy, unspecified E11.40 ; Emphysema, unspecified J43.9 ; Rheumatoid arthritis with rheumatoid factor of right wrist without organ or systems involvement M05.731 ; Rheumatoid arthritis of left wrist without organ or system involvement with positive rheumatoid factor M05.732 and Chronic pain G89.29 [place] [id number] [place] [address] May, [place] [id number] [place] [address] May, Swelling of hand joint M25.449 ; Ankle swelling M25.473 and Joint pain M25.50 [place] [id number] [place] [address] May, Emphysema, unspecified J43.9 [place] [id number] [place] [phone] May, Gastroenteritis K52.9 and Hypertension I10 [place] [id number] [place] [address] Apr, [place] [address] [address] Apr, [place] [id number] [place] [address] Apr, [place] [address] [address] Apr, Type 2 diabetes mellitus with diabetic neuropathy, unspecified E11.40 ; Emphysema, unspecified J43.9 ; Atherosclerotic heart disease of [place] coronary artery without angina pectoris I25.10 ; Migraine without aura, not intractable, with status migrainosus G43.001 ; Gastro-esophageal reflux disease without esophagitis K21.9 ; CAD (coronary artery disease) I25.10 ; Hypertension I10 ; Hyperlipemia E78.5 ; Allergic rhinitis J30.9 ; Neuropathy G62.9 ; Anxiety associated with depression F41.8 and Injury of left hand S69.[address] [place] [id number] [place] [address] Apr, [address] [address] Apr, [place] [id number] [place] [address] Apr, Type 2 diabetes mellitus with diabetic neuropathy, unspecified E11.40 ; Emphysema, unspecified J43.9 ; Essential (primary) hypertension I10 ; Atherosclerotic heart disease of [place] coronary artery without angina pectoris I25.10 ; Gastro-esophageal reflux disease without esophagitis K21.9 ; CAD (coronary artery disease) I25.10 ; Hyperlipemia E78.5 ; Hypertension I10 ; History of solitary pulmonary nodule Z87.898 ; Allergic rhinitis J30.9 ; Chronic pain G89.29 and Depression with anxiety F41.[address] [address] Mar, [place] [id number] [place] [address] Mar, Allergic rhinitis J30.9 ; URI (upper respiratory infection) J06.9 and Other viral agents as the cause of diseases classified elsewhere B97.89 [facility] [id number] [place] [phone] Feb, Acute nasopharyngitis [common cold] J00 and Acute diarrhea R19.7 [place] [address] [address] Feb, Depression F32.[address] [address] Jan, Otitis media, right H66.[address] [address] Jan, [place] [address] [address] Jan, Type 2 diabetes mellitus with diabetic neuropathy, unspecified E11.[address] [address] Jan, [place] [address] [address] Jan, Hyperlipemia E78.5 [place] [address] [address] Jan, Type 2 diabetes mellitus with diabetic neuropathy, unspecified E11.40 ; Emphysema, unspecified J43.9 ; CAD (coronary artery disease) I25.10 and Hyperlipemia E78.[address] [address] Dec, Allergic rhinitis J30.9 and Fungal infection B49 [place] [id number] [place] [phone] Dec, [place] [id number] [place] [phone] Dec, [place] [address] [address] Dec, Chest pain R07.9 ; CAD (coronary artery disease) I25.10 ; Hypertension I10 and Hyperlipemia E78.[address] [address] Dec, Pain in thoracic spine M54.6 ; Gastro-esophageal reflux disease without esophagitis K21.9 ; Emphysema, unspecified J43.9 and Migraine without aura, not intractable, with status migrainosus G43.001 [place] [address] [address] Dec, [place] [address] [address] Nov, Influenza vaccine administered V04.81 [place] [address] [address] Nov, [place] [address] [address] Sep, [place] [address] [address] Sep, [place] [address] [address] Sep, CAD (coronary artery disease) 414.00 and Diabetes type 2, uncontrolled 250.02 [place] [address] [address] Sep, CAD (coronary artery disease) 414.00 ; Diabetes type 2, uncontrolled 250.02 and Migraine 346.90 IMMUNIZATIONS No Known Immunizations SOCIAL HISTORY Never Assessed REASON FOR VISIT COPD [id number] THEODORE PLAN OF CARE Activity Details Follow Up 3 Months Reason:RA VITAL SIGNS Height 66 in 2017-02-27 Weight 182.6 lbs 2017-02-27 Temperature 98.3 degrees Fahrenheit 2017-02-27 Heart Rate 86 bpm 2017-02-27 Respiratory Rate 20 2017-02-27 Oximetry on room air:95 % 2017-02-27 BMI 29.47 kg/m2 2017-02-27 Blood pressure systolic 104 mmHg 2017-02-27 Blood pressure diastolic 62 mmHg 2017-02-27 MEDICATIONS Medication Instructions Dosage Frequency Start Date End Date Duration Status Victoza 18 MG/3ML Subcutaneous Once a day 1.8mg 24h 30 Active Symbicort 160-4.5 MCG/ACT Inhalation Twice a day Needs to make an appointment 2 puffs 30 Active Plaquenil 200 mg Orally Once a day 1 tablet with food or milk 24h Aug, 90 days Active Mucinex 600 MG Orally every 12 hrs 1 tablet as needed 12h Mar, Active Lyrica 100 mg Orally Three times a day 1 capsule 8h Dec, 30 days Active Blood Glucose Test Test Strips In Vitro 4 times a day test blood sugar 6h Jun, Active Fish Oil 1200 MG Orally Once a day 1 capsule 24h Active Baclofen 10 MG TAKE ONE TABLET BY MOUTH THREE TIMES DAILY WITH FOOD OR MILK 90 Active Cetirizine HCl 10 Orally Once a day TAKE 1 TABLET BY MOUTH DAILY 24h Active Blood Glucose Monitor System w/Device as directed July, Active Atorvastatin Calcium 10 mg Orally Once a day 1 tablet 24h 30 Active Oxygen Active Citalopram Hydrobromide 20 mg Orally Once a day 1 tablet 24h 30 Active Protonix 40 mg Orally Once a day 1 tablet 24h Dec, 90 days Active Methotrexate 2.5 MG Orally once weekly 10 TABLETS 90 days Active Nystatin-Triamcinolone 947336-5.1 UNIT/GM Externally Twice a day apply thin layer to irritated abdominal areas 12h July, Active Quad Cane as directed May, Active Qnasl 80 MCG/ACT Nasally Once a day 2 puffs in each nostril 24h July, 30 day(s) Active Hydrocodone-Acetaminophen 7.5-325 MG Orally every 6 hours as needed 1 tablet as needed Jan, 28 days Active Ventolin HFA 108 (90 Base) MCG/ACT Inhalation every 4 hrs Needs appointment 2 puffs as needed 17 Active Metoprolol Tartrate 25 MG Orally Twice a day TAKE ONE TABLET BY MOUTH TWICE DAILY 12h 30 Active Folic Acid 1 MG Orally Once a day 1 tablet 24h Aug, 90 days Active Albuterol Sulfate (2.5 MG/3ML) 0.083% Inhalation Three times a day 3 ml 8h 30 Active Aspirin Adult Low Strength 81 MG Orally Once a day 1 tablet 24h 90 Active Nicotine 21 MG/24HR Transdermal Once a day 1 patch to skin 24h Feb, 30 day(s) Active BusPIRone HCl 10 mg Orally TID PRN 1 tablet Dec, 30 days Active Trazodone HCl 50 mg Orally Once a day 1 tablet at bedtime as needed 24h 30 Active Metformin HCl 1000 MG Orally 2 times a day TAKE ONE TABLET BY MOUTH TWICE DAILY WITH MEALS 12h 30 Active Easy Touch Pen [place] 32G X 4 MM sq 4 times a day as directed 6h Sep, 90 days Active Depend Adjustable Underwear Lg 1 as directed 3 times a day use one depends three times per day as needed 8h May, 12 months Active Lisinopril 20 mg Orally Once a day 1 tablet 24h 30 Active Aleve 220 MG Orally every 12 hrs 1 tablet 12h Not-Taking RESULTS No Results PROCEDURES Procedure Date Ordered Result Body Site MEASURE BLOOD OXYGEN LEVEL Feb 27, 2017 INSTRUCTIONS MEDICATIONS ADMINISTERED No Known Medications [...] unspecified Medical History Atherosclerotic heart disease of [place] coronary artery without angina pectoris Medical History [...]
--- OUTSIDE RECORDS SUMMARY | 2018-08-23 17:20 | XMS REPORT ---
Author Author CLAU DELEON Organization [facility] Address [address] [place] [address] Care Team Providers Care Tree Specialist Name Role Phone DELEONROB MoranELE Unavailable PROBLEMS Type Condition ICD9-CM Code QZT70-DF Code Onset Dates Condition Status SNOMED Code Problem Neuropathy G62.9 Active 637490176 Problem Other hammer toe(s) (acquired), right foot M20.41 Active 180552261 Problem Other hammer toe(s) (acquired), left foot M20.42 Active 73870952 Problem Anxiety F41.9 Active 21304763 Problem Type 2 diabetes mellitus with diabetic neuropathy, unspecified E11.40 Active 39100688 Problem Hammer toe of left foot M20.42 Active 654594746 Problem Hyperlipemia E78.5 Active 75235936 Problem Hypertension I10 Active 83645889 Problem COPD with exacerbation J44.1 Active 542231665790439 Problem Tobacco abuse Z72.0 Active 803744913 Problem COPD with acute exacerbation J44.1 Active 324315479 Problem Back pain of lumbar region with sciatica M54.40 Active 128750237 Problem Allergic rhinitis J30.9 Active 03409203 Problem Anxiety associated with depression F41.8 Active 394276633 Problem Gastro-esophageal reflux disease without esophagitis K21.9 Active 517857315 Problem Emphysema, unspecified J43.9 Active 02318035 Problem Rheumatoid arthritis involving multiple sites with positive rheumatoid factor M05.79 Active 488421606 Problem Primary insomnia F51.01 Active 8830061 Problem Chronic pain G89.29 Active 88270585 Problem Periodontitis K05.30 Active 43949488 Problem Vitamin D deficiency E55.9 Active 53196244 Problem OAB (overactive bladder) N32.81 Active 198350491 Problem Dependence on nocturnal oxygen therapy Z99.81 Active [id number] ALLERGIES No Information ENCOUNTERS Encounter Location Date Diagnosis [facility] [address] [facility] [id number] [address] Oct, [facility] [address] [address] Aug, [facility] [id number] [place] [address] July, [facility] [id number] [place] [address] July, [facility] [id number] [place] [address] July, Chronic pain G89.29 [facility] [id number] [place] [address] July, [facility] [address] [place] [address] July, Onychomycosis B35.1 ; Hammer toe of left foot M20.42 and Type 2 diabetes mellitus with diabetic neuropathy, unspecified E11.40 [facility] [address] [address] July, [facility] [id number] [place] [address] July, Chronic pain G89.29 and Neuropathy G62.9 [facility] [address] [address] July, [facility] [address] [address] July, [facility] [address] [address] Jun, [facility] [id number] [address] Jun, Chronic pain G89.29 [facility] [address] [address] Jun, [facility] [address] [place] [address] Jun, [facility] [id number] [place] [address] Jun, Visit for TB skin test Z11.1 [facility] [address] [address] 16 Jun, 2017 [facility] [id number] [place] [address] Jun, [facility] [id number] [place] [address] Jun, Tobacco abuse Z72.0 and Rheumatoid arthritis involving multiple sites with positive rheumatoid factor M05.79 [facility] [id number] [place] [address] Jun, Anxiety F41.9 ; Acute non-recurrent maxillary sinusitis J01.00 and Chronic pain G89.29 [facility] [address] [place] [address] Jun, [facility] [id number] [place] [address] May, Rheumatoid arthritis involving multiple sites with positive rheumatoid factor M05.79 [facility] [address] [place] [address] May, Chronic pain G89.29 [facility] [address] [address] May, [facility] [address] [address] May, [facility] [id number] [place] [address] May, [facility] [address] [address] May, Type 2 diabetes mellitus with diabetic neuropathy, unspecified E11.40 [facility] [id number] [place] [address] May, Type 2 diabetes mellitus with diabetic neuropathy, unspecified E11.40 ; Emphysema, unspecified J43.9 ; Hypertension I10 ; Hyperlipemia E78.5 ; Vitamin D deficiency E55.9 ; Right medial knee pain M25.561 ; Controlled substance agreement signed Z79.899 ; Chronic pain G89.29 ; Allergic rhinitis J30.9 ; Anxiety associated with depression F41.8 ; Neuropathy G62.9 and Gastro- esophageal reflux disease without esophagitis K21.9 [facility] [id number] [place] [address] Apr, Chronic pain G89.29 [facility] [id number] [place] [address] 16 Apr, 2017 Other hammer toe(s) (acquired), left foot M20.42 ; Other hammer toe(s) (acquired), right foot M20.41 ; Type 2 diabetes mellitus with diabetic neuropathy, unspecified E11.40 and Onychomycosis B35.1 [facility] [id number] [place] [address] 2017 Gastro-esophageal reflux disease without esophagitis K21.9 [facility] [id number] [place] [address] Apr, Controlled substance agreement signed Z79.899 [facility] [id number] [place] [address] Mar, Chronic pain G89.29 [facility] [id number] [place] [address] Mar, Emphysema, unspecified J43.9 and Type 2 diabetes mellitus with diabetic neuropathy, unspecified E11.40 [facility] [id number] [place] [address] Mar, Dysuria R30.0 ; Vaginal candidiasis B37.3 and Acute nonintractable headache, unspecified headache type R51 [facility] [id number] [place] [address] Feb, Neuropathy G62.9 and Chronic pain G89.29 [facility] [id number] [place] [address] Feb, Gastro-esophageal reflux disease without esophagitis K21.9 [facility] [id number] [place] [address] Feb, [facility] [id number] [place] [address] Feb, Rheumatoid arthritis involving multiple sites with positive rheumatoid factor M05.79 and COPD with acute exacerbation J44.1 [facility] [id number] [place] [address] Feb, Vaginal odor N89.8 ; Vaginal irritation N89.8 ; Candidal dermatitis B37.2 and Screening breast examination Z12.31 [facility] [id number] [place] [address] Feb, [facility] [id number] [place] [address] Feb, [facility] [id number] [place] [address] Feb, [facility] [id number] [place] [address] Feb, COPD with exacerbation J44.1 ; Tobacco abuse counseling Z71.6 ; Tobacco abuse Z72.0 ; Rheumatoid arthritis involving multiple sites with positive rheumatoid factor M05.79 and Hyperlipemia E78.5 [facility] [id number] [place] [address] Feb, [facility] [address] [place] [id number] Jan, [facility] [id number] [place] [address] Jan, Chronic pain G89.29 [facility] [id number] [place] [phone] 27 Jan, 2017 Dental examination Z01.20 [facility] [id number] [place] [address] 19 Jan, 2017 Back pain of lumbar region with sciatica M54.40 [facility] [id number] [place] [address] 15 Jan, 2017 Acute bacterial conjunctivitis of both eyes H10.33 [facility] [id number] [place] [address] 02 Jan, 2017 Chronic pain G89.29 [facility] [id number] [place] [address] 31 Dec, 2016 Type 2 diabetes mellitus with diabetic neuropathy, unspecified E11.40 ; Hypertension I10 ; Hyperlipemia E78.5 ; Gastro-esophageal reflux disease without esophagitis K21.9 ; Anxiety associated with depression F41.8 ; Allergic rhinitis J30.9 ; Neuropathy G62.9 and Dependence on nocturnal oxygen therapy Z99.81 [facility] [id number] [place] [address] Dec, [facility] [id number] [place] [address] Dec, [facility] [id number] [place] [address] 09 Dec, 2016 Encounter for immunization Z23 [facility] [id number] [place] [address] 05 Dec, 2016 Type 2 diabetes mellitus with diabetic neuropathy, unspecified E11.40 and Chronic pain G89.29 [facility] [id number] [place] [address] 11 Nov, 2016 Gastro-esophageal reflux disease without esophagitis K21.9 [facility] [id number] [place] [address] Nov, Peripheral edema R60.9 and Chest pain in adult R07.9 [facility] [id number] [place] [address] 07 Nov, 2016 Chronic pain G89.29 [facility] [id number] [place] [address] 31 Oct, 2016 [facility] [id number] [place] [address] Oct, [facility] [id number] [place] [address] 17 Oct, 2016 Rheumatoid arthritis with rheumatoid factor of right wrist without organ or systems involvement M05.731 [facility] [address] [address] 15 Oct, 2016 [facility] [id number] [place] [address] Oct, Acute exacerbation of chronic obstructive pulmonary disease (COPD) J44.1 and Canker sore K12.0 [facility] [id number] [place] [address] Oct, [facility] [id number] [place] [address] Oct, [facility] [id number] [place] [address] Oct, Chronic pain G89.29 [facility] [id number] [place] [id number] Oct, Dental examination Z01.20 [facility] [address] [place] [address] Oct, Dental examination Z01.20 and Periodontitis K05.30 [facility] [id number] [place] [id number] Oct, Dental examination Z01.20 [facility] [id number] [place] [address] Sep, Abscess L02.91 [facility] [address] [address] Sep, Dental examination Z01.20 [facility] [address] [place] [address] Sep, [facility] [address] [id number] Sep, Dental examination Z01.20 and Dental caries K02.9 [facility] [id number] [place] [address] Sep, Primary insomnia F51.01 and Anxiety associated with depression F41.8 [facility] [id number] [place] [address] Sep, Rheumatoid arthritis with rheumatoid factor of right wrist without organ or systems involvement M05.731 [facility] [id number] [place] [address] Sep, Chronic pain G89.29 [facility] [id number] [place] [address] Sep, Type 2 diabetes mellitus with diabetic neuropathy, unspecified E11.40 ; Emphysema, unspecified J43.9 ; Gastro-esophageal reflux disease without esophagitis K21.9 ; Hypertension I10 ; Hyperlipemia E78.5 ; Anxiety associated with depression F41.8 ; Chronic pain G89.29 ; Vitamin D deficiency E55.9 and Primary insomnia F51.01 [facility] [address] [place] [address] 16 Aug, 2016 Anxiety associated with depression F41.8 [facility] [id number] [place] [address] Aug, Chronic pain G89.29 and Neuropathy G62.9 [facility] [address] [place] [address] Aug, Type 2 diabetes mellitus with diabetic neuropathy, unspecified E11.40 ; Rheumatoid arthritis involving multiple sites with positive rheumatoid factor M05.79 ; Vitamin D deficiency E55.9 ; Anxiety associated with depression F41.8 and Primary insomnia F51.01 [facility] [address] [address] July, Emphysema, unspecified J43.9 [facility] [address] [address] July, Allergic rhinitis J30.9 [facility] [address] [address] July, Allergic rhinitis J30.9 ; Emphysema, unspecified J43.9 and Rheumatoid arthritis with rheumatoid factor of right wrist without organ or systems involvement M05.731 [facility] [address] [address] July, Neuropathy G62.9 and Chronic pain G89.29 [facility] [address] [address] July, Rheumatoid arthritis involving multiple sites with positive rheumatoid factor M05.79 [facility] [address] [address] Jun, [facility] [address] [address] Jun, Neuropathy G62.9 and Chronic pain G89.29 [facility] [address] [address] May, Neuropathy G62.9 and Chronic pain G89.29 [facility] [id number] [place] [address] May, [facility] [address] [address] May, [facility] [id number] [place] [address] May, Type 2 diabetes mellitus with diabetic [...] system involvement with positive rheumatoid factor M05.732 [facility] [address] [address] 14 Apr, 2016 Chronic pain G89.29 [facility] [address] [address] Mar, Gastro-esophageal reflux disease without esophagitis K21.[address] [address] Mar, [address] [address] Mar, Rheumatoid arthritis with rheumatoid factor of right wrist without organ or systems involvement M05.731 [facility] [address] [address] Mar, Chronic pain G89.29 [facility] [address] [address] Feb, Hyperlipemia E78.5 [facility] [address] [address] Feb, Abnormal breath sounds R06.89 ; COPD with exacerbation J44.1 and Fatigue, unspecified type R53.[address] [address] Feb, Neuropathy G62.9 ; Abnormal lung sounds R09.89 and Bronchitis J40 [facility] [address] [address] Feb, Bronchitis J40 [facility] [address], [place] [address] Feb, Chronic pain G89.29 [facility] [id number] [place] [address] Jan, Type 2 diabetes mellitus with diabetic neuropathy, unspecified E11.40 ; Rheumatoid arthritis with rheumatoid factor of right wrist without organ or systems involvement M05.731 and Hyperlipemia E78.5 [facility] [id number] [place] [address] Jan, Rheumatoid arthritis with rheumatoid factor of right wrist without organ or systems involvement M05.731 [facility] [id number] [place] [address] Jan, De Quervain's disease (radial styloid tenosynovitis) M65.4 ; Closed nondisplaced fracture of scaphoid of left wrist, unspecified portion of scaphoid, initial encounter S62.002A and Peripheral tear of medial meniscus of left knee, unspecified whether old or current tear, initial encounter S83.222A [facility] [address] [place] [address] Jan, Hypertension I10 ; Type 2 diabetes mellitus with diabetic neuropathy, unspecified E11.40 ; Hyperlipemia E78.5 ; Allergic rhinitis J30.9 ; Neuropathy G62.9 ; Rheumatoid arthritis with rheumatoid factor of right wrist without organ or systems involvement M05.731 ; Acute non-recurrent maxillary sinusitis J01.00 and Chronic pain G89.29 [facility] [address], [place] [address] Dec, [facility] [id number] [place] [address] Dec, [facility] [address] [place] [address] Dec, Type 2 diabetes mellitus with diabetic neuropathy, unspecified E11.40 ; Emphysema, unspecified J43.9 ; Gastro-esophageal reflux disease without esophagitis K21.9 ; Hypertension I10 ; Hyperlipemia E78.5 ; Rheumatoid arthritis with rheumatoid factor of right wrist without organ or systems involvement M05.731 ; Elevated white blood cell count, unspecified D72.829 ; Acute non- recurrent frontal sinusitis J01.10 and Chronic pain G89.29 [facility] [id number] [place] [address] Nov, [facility] [address] [address] Nov, Elevated white blood cell count, unspecified D72.829 ; Encounter for immunization Z23 ; Rheumatoid arthritis with rheumatoid factor of right wrist without organ or systems involvement M05.731 ; Injury of left hand S69.92XA ; Pain in left knee M25.562 and Other chronic pain G89.29 [facility] [address] [address] Nov, [facility] [address] [address] Nov, [facility] [address] [address] Oct, [facility] [address] [address] Oct, Hyperlipemia E78.5 [facility] [address] [address] Oct, [facility] [address] [address] Oct, Type 2 diabetes mellitus with diabetic neuropathy, unspecified E11.40 ; Neuropathy G62.9 ; Hypertension I10 ; Chronic pain G89.29 and Hyperlipemia E78.5 [facility] [address] [address] Oct, Emphysema, unspecified J43.9 and Rheumatoid arthritis of left wrist without organ or system involvement with positive rheumatoid factor M05.732 [facility] [id number] [place] [address] Sep, Chronic pain syndrome G89.4 [facility] [id number] [place] [address] Sep, [facility] [id number] [place] [address] Sep, [facility] [id number] [place] [address] Sep, Closed nondisplaced fracture of scaphoid of left wrist, unspecified portion of scaphoid, initial encounter S62.002A [facility] [id number] [place] [address] Sep, Type 2 diabetes mellitus with diabetic neuropathy, unspecified E11.40 ; Hypertension I10 ; Hyperlipemia E78.5 and Acute non-recurrent maxillary sinusitis J01.00 [facility] [id number] [place] [address] Sep, [facility] [id number] [place] [address] Sep, [facility] [id number] [place] [address] Sep, [facility] [id number] [place] [address] Sep, [facility] [id number] [place] [address] Aug, Epigastric pain R10.13 and Right upper quadrant pain R10.11 [facility] [id number] [place] [address] Aug, Closed nondisplaced fracture of scaphoid of left wrist, unspecified portion of scaphoid, initial encounter S62.002A [facility] [id number] [place] [address] Aug, [facility] [address] [place] [address] Aug, [facility] [id number] [place] [address] Aug, Shortness of breath R06.02 ; Epigastric pain R10.13 and Injury of left lower arm, initial encounter S59.912A [facility] [id number] [place] [address] Aug, Coronary artery disease involving shoalwater heart with angina pectoris, unspecified vessel or lesion type I25.119 ; Pulmonary emphysema, unspecified emphysema type J43.9 and Snoring R06.83 [facility] [id number] [place] [address] Aug, [facility] [id number] [place] [address] Aug, Emphysema, unspecified J43.9 ; Atherosclerotic heart disease of shoalwater coronary artery without angina pectoris I25.10 and Hypertension I10 [facility] [id number] [place] [address] July, [facility] [id number] [place] [address] July, Closed nondisplaced fracture of scaphoid of left wrist, unspecified portion of scaphoid, initial encounter S62.002A [facility] [id number] [place] [address] July, [facility] [id number] [place] [address] July, Type 2 diabetes mellitus with diabetic neuropathy, unspecified E11.40 ; Emphysema, unspecified J43.9 ; Atherosclerotic heart disease of sho[place] coronary artery without angina pectoris I25.10 ; [...] agents L24.89 and Hospital discharge follow-up Z09 [facility] [id number] [place] [id number] July, [facility] [id number] [place] [phone] July, Type 2 diabetes mellitus with diabetic neuropathy, unspecified E11.40 [facility] [id number] [place] [phone] July, Type 2 diabetes mellitus with diabetic neuropathy, unspecified E11.40 and Rheumatoid arthritis of left wrist without organ or system involvement with positive rheumatoid factor M05.732 [facility] [id number] [place] [phone] July, [facility] [id number] [place] [phone] July, [facility] [id number] [place] [phone] Jun, [facility] [id number] [place] [phone] Jun, [facility] [id number] [place] [phone] Jun, 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 [facility] [id number] [place] [phone] Jun, [facility] [id number] [place] [phone] Jun, 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 [facility] [id number] [place] [phone] Jun, [facility] [id number] [place] [phone] Jun, [facility] [address] [address] Jun, Encounter for PPD test Z11.1 ; Rheumatoid arthritis with rheumatoid factor of right wrist without organ or systems involvement M05.731 and Rheumatoid arthritis of left wrist without organ or system involvement with positive rheumatoid factor M05.732 [place] [address] [address] Jun, Type 2 diabetes mellitus with diabetic neuropathy, unspecified E11.40 [place] [address] [address] May, Type 2 diabetes mellitus with diabetic neuropathy, unspecified E11.40 ; Emphysema, unspecified J43.9 ; Rheumatoid arthritis with rheumatoid factor of right wrist without organ or systems involvement M05.731 ; Rheumatoid arthritis of left wrist without organ or system involvement with positive rheumatoid factor M05.732 and Chronic pain G89.29 [place] [address] [address] May, [place] [address] [address] May, Swelling of hand joint M25.449 ; Ankle swelling M25.473 and Joint pain M25.50 [place] [address] [address] May, Emphysema, unspecified J43.9 [place] [address] [address] May, Gastroenteritis K52.9 and Hypertension I10 [place] [address] [address] Apr, [place] [address] [address] Apr, [place] [address] [address] Apr, [place] [address] [address] Apr, Type 2 diabetes mellitus with diabetic neuropathy, unspecified E11.40 ; Emphysema, unspecified J43.9 ; Atherosclerotic heart disease of [place] coronary artery without angina pectoris I25.10 ; Migraine without aura, not intractable, with status migrainosus G43.001 ; Gastro-esophageal reflux disease without esophagitis K21.9 ; CAD (coronary artery disease) I25.10 ; Hypertension I10 ; Hyperlipemia E78.5 ; Allergic rhinitis J30.9 ; Neuropathy G62.9 ; Anxiety associated with depression F41.8 and Injury of left hand S69.92XA [address] [address] Apr, [address] [address] Apr, [address] [address] Apr, Type 2 diabetes mellitus with diabetic neuropathy, unspecified E11.40 ; Emphysema, unspecified J43.9 ; Essential (primary) hypertension I10 ; Atherosclerotic heart disease of [place] coronary artery without angina pectoris I25.10 ; Gastro-esophageal reflux disease without esophagitis K21.9 ; CAD (coronary artery disease) I25.10 ; Hyperlipemia E78.5 ; Hypertension I10 ; History of solitary pulmonary nodule Z87.898 ; Allergic rhinitis J30.9 ; Chronic pain G89.29 and Depression with anxiety F41.8 [facility] [id number] [place] [phone] Mar, [address] [address] Mar, Allergic rhinitis J30.9 ; URI (upper respiratory infection) J06.9 and Other viral agents as the cause of diseases classified elsewhere B97.89 [facility] [id number] [place] [phone] Feb, Acute nasopharyngitis [common cold] J00 and Acute diarrhea R19.[id number] [place] [phone] Feb, Depression F32.9 [place] [address] [address] Jan, Otitis media, right H66.91 [place] [address] [address] Jan, [place] [address] [address] Jan, Type 2 diabetes mellitus with diabetic neuropathy, unspecified E11.40 [place] [address] [address] Jan, [place] [address] [address] Jan, Hyperlipemia E78.5 [place] [address] [address] Jan, Type 2 diabetes mellitus with diabetic neuropathy, unspecified E11.40 ; Emphysema, unspecified J43.9 ; CAD (coronary artery disease) I25.10 and Hyperlipemia E78.5 [place] [id number] [place] [address] Dec, Allergic rhinitis J30.9 and Fungal infection B49 [place] [id number] [place] [phone] Dec, [place] [id number] [place] [phone] Dec, [place] [address] [address] Dec, Chest pain R07.9 ; CAD (coronary artery disease) I25.10 ; Hypertension I10 and Hyperlipemia E78.5 [place] [id number] [place] [phone] 08 Dec, 2014 Pain in thoracic spine M54.6 ; Gastro-esophageal reflux disease without esophagitis K21.9 ; Emphysema, unspecified J43.9 and Migraine without aura, not intractable, with status migrainosus G43.001 [place] [id number] [place] [phone] Dec, [place] [id number] [place] [phone] Nov, Influenza vaccine administered V04.81 [place] [address] [address] Nov, [place] [address] [address] Sep, [place] [id number] [place] [address] Sep, [place] [id number] [place] [address] Sep, CAD (coronary artery disease) 414.00 and Diabetes type 2, uncontrolled 250.02 [place] [id number] [place] [address] Sep, CAD (coronary artery disease) 414.00 ; Diabetes type 2, uncontrolled 250.02 and Migraine 346.90 IMMUNIZATIONS No Known Immunizations SOCIAL HISTORY Never Assessed REASON FOR VISIT Controlled Med Refill PLAN OF CARE VITAL SIGNS MEDICATIONS Medication Instructions Dosage Frequency Start Date End Date Duration Status Lyrica 100 mg Orally Three times a day 1 capsule 8h Dec, 30 days Active Hydrocodone-Acetaminophen 7.5-325 MG Orally every 6 hours as needed 1 tablet as needed Feb, 28 days Active RESULTS No Results PROCEDURES No Known procedures INSTRUCTIONS MEDICATIONS ADMINISTERED No Known Medications MEDICAL (GENERAL) HISTORY Type Description Date Medical History COPD Medical History Type 2 Diabetes Medical History HTN Medical History Cardiac stents July 2010 post NM-stent to LAD Medical History Rheumatoid Arthritis Medical History 04/2016---Echo- 60%//mild hypertrophy at the base of the septum, mild mitral regurg/ mild tricuspid regurg. PAP about 10-15 mmHg Medical History 04/2016------Normal Lexiscan Medical History Elevated white blood cell count, unspecified Medical History Atherosclerotic heart disease of [place] coronary artery without angina pectoris Medical History [...]
--- OUTSIDE RECORDS SUMMARY | 2018-08-23 17:21 | XMS REPORT ---
Author Author PANCHOROBCLAU Organization [facility] Address [address] [place] [address] Care Team Providers Care Telemarketer Name Role Phone DELEONCLAU Moran Unavailable PROBLEMS Type Condition ICD9-CM Code JMM60-CG Code Onset Dates Condition Status SNOMED Code Problem Dependence on nocturnal oxygen therapy Z99.81 Active 09749156696560 Problem Other hammer toe(s) (acquired), left foot M20.42 Active 63509925 Problem Neuropathy G62.9 Active 762836940 Problem Anxiety F41.9 Active 64322255 Problem Hyperlipemia E78.5 Active 16402224 Problem COPD with acute exacerbation J44.1 Active 488928476 Problem Hypertension I10 Active 66101432 Problem Vitamin D deficiency E55.9 Active 80363728 Problem Tobacco abuse Z72.0 Active 345978772 Problem Other hammer toe(s) (acquired), right foot M20.41 Active 705610772 Problem Back pain of lumbar region with sciatica M54.40 Active 850624951 Problem COPD with exacerbation J44.1 Active 814856931129549 Problem Emphysema, unspecified J43.9 Active 21631415 Problem Allergic rhinitis J30.9 Active 19912555 Problem Type 2 diabetes mellitus with diabetic neuropathy, unspecified E11.40 Active 06493456 Problem Gastro-esophageal reflux disease without esophagitis K21.9 Active 707089914 Problem OAB (overactive bladder) N32.81 Active 331962466 Problem Rheumatoid arthritis involving multiple sites with positive rheumatoid factor M05.79 Active 916634017 Problem Anxiety associated with depression F41.8 Active 978924098 Problem Primary insomnia F51.01 Active 6310056 Problem Chronic pain G89.29 Active 20176356 Problem Periodontitis K05.30 Active 40706305 ALLERGIES No Information ENCOUNTERS Encounter Location Date Diagnosis [facility] [address] [facility] [id number] [address] July, [facility] [address] [address] Jun, Chronic pain G89.29 [facility] [id number] [place] [address] Jun, [facility] [address] [address] Jun, [facility] [id number] [place] [address] Jun, Visit for TB skin test Z11.1 [facility] [id number] [place] [address] 16 Jun, 2017 [facility] [id number] [place] [address] Jun, [facility] [id number] [place] [address] Jun, Tobacco abuse Z72.0 and Rheumatoid arthritis involving multiple sites with positive rheumatoid factor M05.79 [facility] [address] [place] [address] Jun, Anxiety F41.9 ; Acute non-recurrent maxillary sinusitis J01.00 and Chronic pain G89.29 [facility] [address] [address] Jun, [facility] [address], [place] [address] May, Rheumatoid arthritis involving multiple sites with positive rheumatoid factor M05.79 [facility] [address] [address] May, Chronic pain G89.29 [facility] [address] [address] May, [facility] [address] [address] May, [facility] [address] [place] [address] May, [facility] [id number] [place] [address] May, Type 2 diabetes mellitus with diabetic neuropathy, unspecified E11.40 [facility] [id number] [place] [address] May, Type 2 diabetes mellitus with diabetic neuropathy, unspecified E11.40 ; Emphysema, unspecified J43.9 ; Hypertension I10 ; Hyperlipemia E78.5 ; Vitamin D deficiency E55.9 ; Right medial knee pain M25.561 ; Controlled substance agreement signed Z79.899 ; Chronic pain G89.29 ; Allergic rhinitis J30.9 ; Anxiety associated with depression F41.8 ; Neuropathy G62.9 and Gastro- esophageal reflux disease without esophagitis K21.9 [facility] [id number] [place] [address] Apr, Chronic pain G89.29 [facility] [id number] [place] [address] 16 Apr, 2017 Other hammer toe(s) (acquired), left foot M20.42 ; Other hammer toe(s) (acquired), right foot M20.41 ; Type 2 diabetes mellitus with diabetic neuropathy, unspecified E11.40 and Onychomycosis B35.1 [facility] [id number] [place] [address] 2017 Gastro-esophageal reflux disease without esophagitis K21.9 [facility] [id number] [place] [address] Apr, Controlled substance agreement signed Z79.899 [facility] [id number] [place] [address] Mar, Chronic pain G89.29 [facility] [id number] [place] [address] Mar, Emphysema, unspecified J43.9 and Type 2 diabetes mellitus with diabetic neuropathy, unspecified E11.40 [facility] [id number] [place] [address] Mar, Dysuria R30.0 ; Vaginal candidiasis B37.3 and Acute nonintractable headache, unspecified headache type R51 [facility] [id number] [place] [address] Feb, Neuropathy G62.9 and Chronic pain G89.29 [facility] [address] [address] Feb, Gastro-esophageal reflux disease without esophagitis K21.9 [facility] [address] [address] Feb, [facility] [address] [address] Feb, Rheumatoid arthritis involving multiple sites with positive rheumatoid factor M05.79 and COPD with acute exacerbation J44.1 [facility] [id number] [place] [address] 08 Feb, 2017 Vaginal odor N89.8 ; Vaginal irritation N89.8 ; Candidal dermatitis B37.2 and Screening breast examination Z12.31 [facility] [id number] [place] [address] 06 Feb, 2017 [facility] [id number] [place] [address] Feb, [facility] [id number] [place] [address] Feb, [facility] [address] [address] Feb, COPD with exacerbation J44.1 ; Tobacco abuse counseling Z71.6 ; Tobacco abuse Z72.0 ; Rheumatoid arthritis involving multiple sites with positive rheumatoid factor M05.79 and Hyperlipemia E78.5 [place] [address] [address] Feb, [facility] [address] [place] [phone] Jan, [facility] [id number] [place] [address] Jan, Chronic pain G89.29 [facility] [address] [place] [phone] Jan, Dental examination Z01.20 [facility] [id number] [place] [address] Jan, Back pain of lumbar region with sciatica M54.40 [facility] [id number] [place] [address] Jan, Acute bacterial conjunctivitis of both eyes H10.33 [facility] [id number] [place] [address] Jan, Chronic pain G89.29 [facility] [id number] [place] [address] Dec, Type 2 diabetes mellitus with diabetic neuropathy, unspecified E11.40 ; Hypertension I10 ; Hyperlipemia E78.5 ; Gastro-esophageal reflux disease without esophagitis K21.9 ; Anxiety associated with depression F41.8 ; Allergic rhinitis J30.9 ; Neuropathy G62.9 and Dependence on nocturnal oxygen therapy Z99.81 [facility] [id number] [place] [address] Dec, [facility] [id number] [place] [address] Dec, [facility] [id number] [place] [address] Dec, Encounter for immunization Z23 [facility] [id number] [place] [address] 05 Dec, 2016 Type 2 diabetes mellitus with diabetic neuropathy, unspecified E11.40 and Chronic pain G89.29 [facility] [id number] [place] [address] 11 Nov, 2016 Gastro-esophageal reflux disease without esophagitis K21.9 [facility] [id number] [place] [address] 11 Nov, 2016 Peripheral edema R60.9 and Chest pain in adult R07.9 [facility] [id number] [place] [address] 07 Nov, 2016 Chronic pain G89.29 [facility] [id number] [place] [address] 31 Oct, 2016 [facility] [address] [address] 30 Oct, 2016 [facility] [id number] [place] [address] 17 Oct, 2016 Rheumatoid arthritis with rheumatoid factor of right wrist without organ or systems involvement M05.731 [facility] [id number] [place] [address] 15 Oct, 2016 [facility] [id number] [place] [address] 14 Oct, 2016 Acute exacerbation of chronic obstructive pulmonary disease (COPD) J44.1 and Canker sore K12.0 [facility] [id number] [place] [address] 14 Oct, 2016 [facility] [id number] [place] [address] 10 Oct, 2016 [facility] [id number] [place] [address] 09 Oct, 2016 Chronic pain G89.29 [facility] [id number] [place] [phone] 08 Oct, 2016 Dental examination Z01.20 [facility] [id number] [place] [address] Oct, Dental examination Z01.20 and Periodontitis K05.30 [facility] [address] [place] [phone] Oct, Dental examination Z01.20 [facility] [address] [place] [address] Sep, Abscess L02.91 [facility] [id number] [place] [address] Sep, Dental examination Z01.20 [facility] [id number] [place] [address] Sep, [facility] [id number] [place] [phone] Sep, Dental examination Z01.20 and Dental caries K02.9 [facility] [id number] [place] [address] Sep, Primary insomnia F51.01 and Anxiety associated with depression F41.8 [facility] [id number] [place] [address] Sep, Rheumatoid arthritis with rheumatoid factor of right wrist without organ or systems involvement M05.731 [facility] [id number] [place] [address] Sep, Chronic pain G89.29 [facility] [id number] [place] [address] Sep, Type 2 diabetes mellitus with diabetic neuropathy, unspecified E11.40 ; Emphysema, unspecified J43.9 ; Gastro-esophageal reflux disease without esophagitis K21.9 ; Hypertension I10 ; Hyperlipemia E78.5 ; Anxiety associated with depression F41.8 ; Chronic pain G89.29 ; Vitamin D deficiency E55.9 and Primary insomnia F51.01 [facility] [id number] [place] [address] Aug, Anxiety associated with depression F41.8 [facility] [id number] [place] [address] Aug, Chronic pain G89.29 and Neuropathy G62.9 [facility] [address] [address] Aug, Type 2 diabetes mellitus with diabetic neuropathy, unspecified E11.40 ; Rheumatoid arthritis involving multiple sites with positive rheumatoid factor M05.79 ; Vitamin D deficiency E55.9 ; Anxiety associated with depression F41.8 and Primary insomnia F51.01 [facility] [address] [address] July, Emphysema, unspecified J43.9 [facility] [address] [address] July, Allergic rhinitis J30.9 [facility] [address] [address] July, Allergic rhinitis J30.9 ; Emphysema, unspecified J43.9 and Rheumatoid arthritis with rheumatoid factor of right wrist without organ or systems involvement M05.731 [facility] [id number] [place] [address] July, Neuropathy G62.9 and Chronic pain G89.29 [facility] [id number] [place] [address] July, Rheumatoid arthritis involving multiple sites with positive rheumatoid factor M05.79 [facility] [id number] [place] [address] Jun, [facility] [id number] [place] [address] Jun, Neuropathy G62.9 and Chronic pain G89.29 [facility] [id number] [place] [address] May, Neuropathy G62.9 and Chronic pain G89.29 [facility] [id number] [place] [address] May, [facility] [id number] [place] [address] May, [address] [address] May, Type 2 diabetes mellitus with diabetic [...] system involvement with positive rheumatoid factor M05.[address] [address] Apr, Chronic pain G89.[address] [address] Mar, Gastro-esophageal reflux disease without esophagitis K21.[address] [address] Mar, [address] [address] Mar, Rheumatoid arthritis with rheumatoid factor of right wrist without organ or systems involvement M05.7[address] [place] [id number] [place] [address] Mar, Chronic pain G89.[address] [address] Feb, Hyperlipemia E78.[address] [address] Feb, Abnormal breath sounds R06.89 ; COPD with exacerbation J44.1 and Fatigue, unspecified type R53.[id number] [place] [address] Feb, Neuropathy G62.9 ; Abnormal lung sounds R09.89 and Bronchitis J40 [facility] [id number] [place] [address] Feb, Bronchitis J40 [facility] [id number] [place] [address] Feb, Chronic pain G89.29 [facility] [address] [address] Jan, Type 2 diabetes mellitus with diabetic neuropathy, unspecified E11.40 ; Rheumatoid arthritis with rheumatoid factor of right wrist without organ or systems involvement M05.731 and Hyperlipemia E78.5 [facility] [address] [address] Jan, Rheumatoid arthritis with rheumatoid factor of right wrist without organ or systems involvement M05.731 [facility] [id number] [place] [address] Jan, De Quervain's disease (radial styloid tenosynovitis) M65.4 ; Closed nondisplaced fracture of scaphoid of left wrist, unspecified portion of scaphoid, initial encounter S62.002A and Peripheral tear of medial meniscus of left knee, unspecified whether old or current tear, initial encounter S83.222A [facility] [id number] [place] [address] Jan, Hypertension I10 ; Type 2 diabetes mellitus with diabetic neuropathy, unspecified E11.40 ; Hyperlipemia E78.5 ; Allergic rhinitis J30.9 ; Neuropathy G62.9 ; Rheumatoid arthritis with rheumatoid factor of right wrist without organ or systems involvement M05.731 ; Acute non-recurrent maxillary sinusitis J01.00 and Chronic pain G89.29 [facility] [id number] [place] [address] Dec, [facility] [place] [address] [place] [address] Dec, [facility] [address] [address] Dec, Type 2 diabetes mellitus with diabetic neuropathy, unspecified E11.40 ; Emphysema, unspecified J43.9 ; Gastro-esophageal reflux disease without esophagitis K21.9 ; Hypertension I10 ; Hyperlipemia E78.5 ; Rheumatoid arthritis with rheumatoid factor of right wrist without organ or systems involvement M05.731 ; Elevated white blood cell count, unspecified D72.829 ; Acute non- recurrent frontal sinusitis J01.10 and Chronic pain G89.29 [place] [address] [address] Nov, [place] [address] [address] Nov, Elevated white blood cell count, unspecified D72.829 ; Encounter for immunization Z23 ; Rheumatoid arthritis with rheumatoid factor of right wrist without organ or systems involvement M05.731 ; Injury of left hand S69.92XA ; Pain in left knee M25.562 and Other chronic pain G89.29 [place] [address] [address] Nov, [facility] [facility] [address] [address] Nov, [facility] [address] [address] Oct, [facility] [id number] [place] [address] Oct, Hyperlipemia E78.5 [facility] [address] [address] Oct, [place] [address] [address] Oct, Type 2 diabetes mellitus with diabetic neuropathy, unspecified E11.40 ; Neuropathy G62.9 ; Hypertension I10 ; Chronic pain G89.29 and Hyperlipemia E78.5 [facility] [id number] [place] [address] Oct, Emphysema, unspecified J43.9 and Rheumatoid arthritis of left wrist without organ or system involvement with positive rheumatoid factor M05.732 [facility] [id number] [place] [address] Sep, Chronic pain syndrome G89.4 [facility] [id number] [place] [address] Sep, [facility] [id number] [place] [address] Sep, [facility] [id number] [place] [address] Sep, Closed nondisplaced fracture of scaphoid of left wrist, unspecified portion of scaphoid, initial encounter S62.002A [facility] [id number] [place] [address] Sep, Type 2 diabetes mellitus with diabetic neuropathy, unspecified E11.40 ; Hypertension I10 ; Hyperlipemia E78.5 and Acute non-recurrent maxillary sinusitis J01.00 [facility] [id number] [place] [address] Sep, [facility] [id number] [place] [address] Sep, [facility] [id number] [place] [address] Sep, [facility] [id number] [place] [address] Sep, [facility] [id number] [place] [address] Aug, Epigastric pain R10.13 and Right upper quadrant pain R10.11 [facility] [id number] [place] [address] Aug, Closed nondisplaced fracture of scaphoid of left wrist, unspecified portion of scaphoid, initial encounter S62.002A [facility] [id number] [place] [address] Aug, [facility] [id number] [place] [address] Aug, [facility] [id number] [place] [address] Aug, Shortness of breath R06.02 ; Epigastric pain R10.13 and Injury of left lower arm, initial encounter S59.912A [facility] [id number] [place] [address] Aug, Coronary artery disease involving [place] heart with angina pectoris, unspecified vessel or lesion type I25.119 ; Pulmonary emphysema, unspecified emphysema type J43.9 and Snoring R06.83 [facility] [id number] [place] [address] Aug, [facility] [id number] [place] [address] Aug, Emphysema, unspecified J43.9 ; Atherosclerotic heart disease of [place] coronary artery without angina pectoris I25.10 and Hypertension I10 [facility] [id number] [place] [address] July, [facility] [id number] [place] [address] July, Closed nondisplaced fracture of scaphoid of left wrist, unspecified portion of scaphoid, initial encounter S62.002A [facility] [id number] [place] [address] July, [facility] [id number] [place] [address] July, Type 2 diabetes mellitus with diabetic neuropathy, unspecified E11.40 ; Emphysema, unspecified J43.9 ; Atherosclerotic heart disease of [place] coronary artery without angina pectoris I25.10 ; [...] agents L24.89 and Hospital discharge follow-up Z09 [facility] [id number] [place] [address] July, [facility] [id number] [place] [address] July, Type 2 diabetes mellitus with diabetic neuropathy, unspecified E11.40 [facility] [id number] [place] [address] July, Type 2 diabetes mellitus with diabetic neuropathy, unspecified E11.40 and Rheumatoid arthritis of left wrist without organ or system involvement with positive rheumatoid factor M05.732 [facility] [id number] [place] [address] July, [facility] [id number] [place] [address] July, [facility] [id number] [place] [address] Jun, [facility] [id number] [place] [address] Jun, [facility] [id number] [place] [address] Jun, 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 [facility] [id number] [place] [address] Jun, [facility] [id number] [place] [address] Jun, 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 [facility] [address] [address] 14 Jun, 2015 [place] [id number] [place] [address] Jun, [facility] [address] [place] [id number] Jun, Encounter for PPD test Z11.1 ; Rheumatoid arthritis with rheumatoid factor of right wrist without organ or systems involvement M05.731 and Rheumatoid arthritis of left wrist without organ or system involvement with positive rheumatoid factor M05.732 [place] [id number] [place] [id number] Jun, Type 2 diabetes mellitus with diabetic neuropathy, unspecified E11.40 [place] [id number] [place] [id number] May, Type 2 diabetes mellitus with diabetic neuropathy, unspecified E11.40 ; Emphysema, unspecified J43.9 ; Rheumatoid arthritis with rheumatoid factor of right wrist without organ or systems involvement M05.731 ; Rheumatoid arthritis of left wrist without organ or system involvement with positive rheumatoid factor M05.732 and Chronic pain G89.29 [place] [id number] [place] [id number] May, [place] [id number] [place] [phone] May, Swelling of hand joint M25.449 ; Ankle swelling M25.473 and Joint pain M25.50 [place] [id number] [place] [phone] May, Emphysema, unspecified J43.9 [place] [address] [place] [id number] [place] [phone] May, Hypertension I10 and Gastroenteritis K52.9 [place] [id number] [place] [id number] Apr, [facility] [id number] [place] [phone] Apr, [place] [id number] [place] [id number] Apr, [place] [id number] [place] [id number] Apr, Type 2 diabetes mellitus with diabetic neuropathy, unspecified E11.40 ; Emphysema, unspecified J43.9 ; Atherosclerotic heart disease of [place] coronary artery without angina pectoris I25.10 ; Migraine without aura, not intractable, with status migrainosus G43.001 ; Gastro-esophageal reflux disease without esophagitis K21.9 ; CAD (coronary artery disease) I25.10 ; Hypertension I10 ; Hyperlipemia E78.5 ; Allergic rhinitis J30.9 ; Neuropathy G62.9 ; Anxiety associated with depression F41.8 and Injury of left hand S69.92XA [address] [address] Apr, [place] [id number] [place] [id number] Apr, [place] [id number] [place] [phone] Apr, Type 2 diabetes mellitus with diabetic neuropathy, unspecified E11.40 ; Emphysema, unspecified J43.9 ; Essential (primary) hypertension I10 ; Atherosclerotic heart disease of [place] coronary artery without angina pectoris I25.10 ; Gastro-esophageal reflux disease without esophagitis K21.9 ; CAD (coronary artery disease) I25.10 ; Hyperlipemia E78.5 ; Hypertension I10 ; History of solitary pulmonary nodule Z87.898 ; Allergic rhinitis J30.9 ; Chronic pain G89.29 and Depression with anxiety F41.8 [place] [id number] [place] [phone] Mar, [place] [id number] [place] [phone] Mar, Allergic rhinitis J30.9 ; URI (upper respiratory infection) J06.9 and Other viral agents as the cause of diseases classified elsewhere B97.89 [facility] [address] [address] Feb, Acute nasopharyngitis [common cold] J00 and Acute diarrhea R19.7 [place] [address] [address] Feb, Depression F32.9 [place] [address] [address] Jan, Otitis media, right H66.91 [place] [address] [address] Jan, [place] [address] [address] Jan, Type 2 diabetes mellitus with diabetic neuropathy, unspecified E11.40 [place] [address] [address] Jan, [place] [address] [address] Jan, Hyperlipemia E78.5 [place] [address] [address] Jan, Type 2 diabetes mellitus with diabetic neuropathy, unspecified E11.40 ; Emphysema, unspecified J43.9 ; CAD (coronary artery disease) I25.10 and Hyperlipemia E78.5 [place] [address] [address] Dec, Allergic rhinitis J30.9 and Fungal infection B49 [place] [address] [address] Dec, [place] [address] [address] Dec, [place] [address] [address] Dec, Chest pain R07.9 ; CAD (coronary artery disease) I25.10 ; Hypertension I10 and Hyperlipemia E78.5 [place] [id number] [place] [phone] Dec, Pain in thoracic spine M54.6 ; Gastro-esophageal reflux disease without esophagitis K21.9 ; Emphysema, unspecified J43.9 and Migraine without aura, not intractable, with status migrainosus G43.001 [place] [id number] [place] [phone] Dec, [address] [address] Nov, Influenza vaccine administered V04.81 [place] [id number] [place] [phone] Nov, [address] [address] Sep, [place] [id number] [place] [phone] Sep, [place] [id number] [place] [id number] Sep, CAD (coronary artery disease) 414.00 and Diabetes type 2, uncontrolled 250.02 [place] [id number] [place] [phone] Sep, CAD (coronary artery disease) 414.00 ; [...] Medical History Cardiac stents July 2010 post LA-stent to LAD Medical History Rheumatoid Arthritis Medical History 04/2016---Echo- 60%//mild hypertrophy at the base of the septum, mild mitral regurg/ mild tricuspid regurg. PAP about 10-15 mmHg Medical History 04/2016------Normal Lexiscan Medical History Elevated white blood cell count, unspecified Medical History Atherosclerotic heart disease of [place] coronary artery without angina pectoris Medical History [...]
--- OUTSIDE RECORDS SUMMARY | 2018-08-23 17:22 | XMS REPORT ---
Author Author CLAU DELEON Organization [facility] Address [address] [place] [address] Care Team Providers Care Surgery Technician Name Role Phone DELEONROB MoranELE Unavailable PROBLEMS Type Condition ICD9-CM Code NNO16-FF Code Onset Dates Condition Status SNOMED Code Problem Neuropathy G62.9 Active 728385963 Problem Other hammer toe(s) (acquired), right foot M20.41 Active 029999421 Problem Other hammer toe(s) (acquired), left foot M20.42 Active 72743891 Problem Anxiety F41.9 Active 16749886 Problem Type 2 diabetes mellitus with diabetic neuropathy, unspecified E11.40 Active 85974177 Problem Hammer toe of left foot M20.42 Active 403890700 Problem Hyperlipemia E78.5 Active 99840981 Problem Hypertension I10 Active 85194930 Problem COPD with exacerbation J44.1 Active 256356260775797 Problem Tobacco abuse Z72.0 Active 386518954 Problem COPD with acute exacerbation J44.1 Active 277326853 Problem Back pain of lumbar region with sciatica M54.40 Active 761802577 Problem Allergic rhinitis J30.9 Active 87097162 Problem Anxiety associated with depression F41.8 Active 350058600 Problem Gastro-esophageal reflux disease without esophagitis K21.9 Active 891489919 Problem Emphysema, unspecified J43.9 Active 44074743 Problem Rheumatoid arthritis involving multiple sites with positive rheumatoid factor M05.79 Active 604437459 Problem Primary insomnia F51.01 Active 3315753 Problem Chronic pain G89.29 Active 03321041 Problem Periodontitis K05.30 Active 24339333 Problem Vitamin D deficiency E55.9 Active 63396464 Problem OAB (overactive bladder) N32.81 Active 059025190 Problem Dependence on nocturnal oxygen therapy Z99.81 Active [id number] ALLERGIES No Information ENCOUNTERS Encounter Location Date Diagnosis [facility] [address] [facility] [id number] [address] Oct, [facility] [address], [place] [address] Aug, [facility] [address] [place] [address] July, [facility] [id number] [place] [address] July, [facility] [id number] [place] [address] July, Chronic pain G89.29 [facility] [id number] [place] [address] July, [facility] [address] [place] [address] July, Onychomycosis B35.1 ; Hammer toe of left foot M20.42 and Type 2 diabetes mellitus with diabetic neuropathy, unspecified E11.40 [facility] [address], [place] [address] July, [facility] [id number] [place] [address] July, Chronic pain G89.29 and Neuropathy G62.9 [facility] [address], [place] [address] July, [facility] [address], [place] [address] July, [facility] [address], [place] [address] Jun, [facility] [address] [place] [address] Jun, Chronic pain G89.29 [facility] [address], [place] [address] Jun, [facility] [address] [place] [address] Jun, [facility] [id number] [place] [address] Jun, Visit for TB skin test Z11.1 [facility] [address], [place] [address] 16 Jun, 2017 [facility] [id number] [place] [address] Jun, [facility] [id number] [place] [address] Jun, Tobacco abuse Z72.0 and Rheumatoid arthritis involving multiple sites with positive rheumatoid factor M05.79 [facility] [id number] [place] [address] Jun, Anxiety F41.9 ; Acute non-recurrent maxillary sinusitis J01.00 and Chronic pain G89.29 [facility] [address] [place] [address] Jun, [facility] [id number] [place] [address] May, Rheumatoid arthritis involving multiple sites with positive rheumatoid factor M05.79 [facility] [address] [place] [address] May, Chronic pain G89.29 [facility] [address], [place] [address] May, [facility] [address], [place] [address] May, [facility] [id number] [place] [address] May, [facility] [address], [place] [address] May, Type 2 diabetes mellitus with diabetic neuropathy, unspecified E11.40 [facility] [id number] [place] [address] May, Type 2 diabetes mellitus with diabetic [...] reflux disease without esophagitis K21.9 [facility] [id number] [place] [address] Apr, Chronic pain G89.29 [facility] [id number] [place] [address] 16 Apr, 2017 Other hammer toe(s) (acquired), left foot M20.42 ; Other hammer toe(s) (acquired), right foot M20.41 ; Type 2 diabetes mellitus with diabetic neuropathy, unspecified E11.40 and Onychomycosis B35.1 [facility] [id number] [place] [address] 2017 Gastro-esophageal reflux disease without esophagitis K21.9 [facility] [id number] [place] [address] Apr, Controlled substance agreement signed Z79.899 [facility] [id number] [place] [address] Mar, Chronic pain G89.29 [facility] [id number] [place] [address] Mar, Emphysema, unspecified J43.9 and Type 2 diabetes mellitus with diabetic neuropathy, unspecified E11.40 [facility] [id number] [place] [address] Mar, Dysuria R30.0 ; Vaginal candidiasis B37.3 and Acute nonintractable headache, unspecified headache type R51 [facility] [id number] [place] [address] Feb, Neuropathy G62.9 and Chronic pain G89.29 [facility] [id number] [place] [address] Feb, Gastro-esophageal reflux disease without esophagitis K21.9 [facility] [id number] [place] [address] Feb, [facility] [id number] [place] [address] Feb, Rheumatoid arthritis involving multiple sites with positive rheumatoid factor M05.79 and COPD with acute exacerbation J44.1 [facility] [id number] [place] [address] Feb, Vaginal odor N89.8 ; Vaginal irritation N89.8 ; Candidal dermatitis B37.2 and Screening breast examination Z12.31 [facility] [id number] [place] [address] Feb, [facility] [id number] [place] [address] Feb, [facility] [id number] [place] [address] Feb, [facility] [id number] [place] [address] Feb, COPD with exacerbation J44.1 ; Tobacco abuse counseling Z71.6 ; Tobacco abuse Z72.0 ; Rheumatoid arthritis involving multiple sites with positive rheumatoid factor M05.79 and Hyperlipemia E78.5 [facility] [id number] [place] [address] Feb, [facility] [place] [address] [place] [id number] Jan, [facility] [id number] [place] [address] Jan, Chronic pain G89.29 [facility] [id number] [place] [id number] 27 Jan, 2017 Dental examination Z01.20 [facility] [id number] [place] [address] 19 Jan, 2017 Back pain of lumbar region with sciatica M54.40 [facility] [id number] [place] [address] 15 Jan, 2017 Acute bacterial conjunctivitis of both eyes H10.33 [facility] [id number] [place] [address] 02 Jan, 2017 Chronic pain G89.29 [facility] [id number] [place] [address] 31 Dec, 2016 Type 2 diabetes mellitus with diabetic neuropathy, unspecified E11.40 ; Hypertension I10 ; Hyperlipemia E78.5 ; Gastro-esophageal reflux disease without esophagitis K21.9 ; Anxiety associated with depression F41.8 ; Allergic rhinitis J30.9 ; Neuropathy G62.9 and Dependence on nocturnal oxygen therapy Z99.81 [facility] [id number] [place] [address] Dec, [facility] [id number] [place] [address] Dec, [facility] [id number] [place] [address] 09 Dec, 2016 Encounter for immunization Z23 [facility] [id number] [place] [address] 05 Dec, 2016 Type 2 diabetes mellitus with diabetic neuropathy, unspecified E11.40 and Chronic pain G89.29 [facility] [id number] [place] [address] 11 Nov, 2016 Gastro-esophageal reflux disease without esophagitis K21.9 [facility] [id number] [place] [address] Nov, Peripheral edema R60.9 and Chest pain in adult R07.9 [facility] [id number] [place] [address] 07 Nov, 2016 Chronic pain G89.29 [facility] [id number] [place] [address] 31 Oct, 2016 [facility] [id number] [place] [address] Oct, [facility] [id number] [place] [address] 17 Oct, 2016 Rheumatoid arthritis with rheumatoid factor of right wrist without organ or systems involvement M05.731 [facility] [address] [address] 15 Oct, 2016 [facility] [id number] [place] [address] Oct, Acute exacerbation of chronic obstructive pulmonary disease (COPD) J44.1 and Canker sore K12.0 [facility] [id number] [place] [address] Oct, [facility] [id number] [place] [address] Oct, [facility] [id number] [place] [address] Oct, Chronic pain G89.29 [facility] [id number] [place] [id number] Oct, Dental examination Z01.20 [facility] [address] [place] [address] Oct, Dental examination Z01.20 and Periodontitis K05.30 [facility] [id number] [place] [id number] Oct, Dental examination Z01.20 [facility] [id number] [place] [address] Sep, Abscess L02.91 [facility] [address], [place] [address] Sep, Dental examination Z01.20 [facility] [facility] [address] [place] [address] Sep, [facility] [address] [id number] Sep, Dental examination Z01.20 and Dental caries K02.9 [facility] [facility] [id number] [place] [address] Sep, Primary insomnia F51.01 and Anxiety associated with depression F41.8 [facility] [id number] [place] [address] Sep, Rheumatoid arthritis with rheumatoid factor of right wrist without organ or systems involvement M05.731 [facility] [id number] [place] [address] Sep, Chronic pain G89.29 [facility] [id number] [place] [address] Sep, Type 2 diabetes mellitus with diabetic neuropathy, unspecified E11.40 ; Emphysema, unspecified J43.9 ; Gastro-esophageal reflux disease without esophagitis K21.9 ; Hypertension I10 ; Hyperlipemia E78.5 ; Anxiety associated with depression F41.8 ; Chronic pain G89.29 ; Vitamin D deficiency E55.9 and Primary insomnia F51.01 [place] [facility] [address] [place] [address] 16 Aug, 2016 Anxiety associated with depression F41.8 [facility] [id number] [place] [address] Aug, Chronic pain G89.29 and Neuropathy G62.9 [facility] [address] [place] [address] Aug, Type 2 diabetes mellitus with diabetic neuropathy, unspecified E11.40 ; Rheumatoid arthritis involving multiple sites with positive rheumatoid factor M05.79 ; Vitamin D deficiency E55.9 ; Anxiety associated with depression F41.8 and Primary insomnia F51.01 [place] [facility] [address] [address] July, Emphysema, unspecified J43.9 [place] [facility] [address] [address] July, Allergic rhinitis J30.9 [place] [facility] [address] [address] July, Allergic rhinitis J30.9 ; Emphysema, unspecified J43.9 and Rheumatoid arthritis with rheumatoid factor of right wrist without organ or systems involvement M05.731 [facility] [facility] [address] [address] July, Neuropathy G62.9 and Chronic pain G89.29 [place] [facility] [address] [address] July, Rheumatoid arthritis involving multiple sites with positive rheumatoid factor M05.79 [place] [facility] [address] [address] Jun, [facility] [facility] [address] [address] Jun, Neuropathy G62.9 and Chronic pain G89.29 [place] [facility] [address] [address] May, Neuropathy G62.9 and Chronic pain G89.29 [facility] [facility] [id number] [place] [address] May, [facility] [facility] [address] [address] May, [facility] [id number] [place] [address] May, Type 2 diabetes mellitus with diabetic [...] with positive rheumatoid factor M05.732 [place] [facility] [address] [address] 14 Apr, 2016 Chronic pain G89.29 [place] [facility] [address] [address] Mar, Gastro-esophageal reflux disease without esophagitis K21.[address] [address] Mar, [address] [address] Mar, Rheumatoid arthritis with rheumatoid factor of right wrist without organ or systems involvement M05.731 [place] [address] [address] Mar, Chronic pain G89.29 [place] [facility] [address] [address] Feb, Hyperlipemia E78.5 [facility] [facility] [address] [address] Feb, Abnormal breath sounds R06.89 ; COPD with exacerbation J44.1 and Fatigue, unspecified type R53.[address] [address] Feb, Neuropathy G62.9 ; Abnormal lung sounds R09.89 and Bronchitis J40 [facility] [address] [address] Feb, Bronchitis J40 [place] [address], [place] [address] Feb, Chronic pain G89.29 [facility] [id number] [place] [address] Jan, Type 2 diabetes mellitus with diabetic neuropathy, unspecified E11.40 ; Rheumatoid arthritis with rheumatoid factor of right wrist without organ or systems involvement M05.731 and Hyperlipemia E78.5 [facility] [facility] [id number] [place] [address] Jan, Rheumatoid arthritis with rheumatoid factor of right wrist without organ or systems involvement M05.731 [facility] [id number] [place] [address] Jan, De Quervain's disease (radial styloid tenosynovitis) M65.4 ; Closed nondisplaced fracture of scaphoid of left wrist, unspecified portion of scaphoid, initial encounter S62.002A and Peripheral tear of medial meniscus of left knee, unspecified whether old or current tear, initial encounter S83.222A [facility] [address] [place] [address] Jan, Hypertension I10 ; Type 2 diabetes mellitus with diabetic neuropathy, unspecified E11.40 ; Hyperlipemia E78.5 ; Allergic rhinitis J30.9 ; Neuropathy G62.9 ; Rheumatoid arthritis with rheumatoid factor of right wrist without organ or systems involvement M05.731 ; Acute non-recurrent maxillary sinusitis J01.00 and Chronic pain G89.29 [facility] [address], [place] [address] Dec, [facility] [id number] [place] [address] Dec, [facility] [address] [place] [address] Dec, Type 2 diabetes mellitus with diabetic neuropathy, unspecified E11.40 ; Emphysema, unspecified J43.9 ; Gastro-esophageal reflux disease without esophagitis K21.9 ; Hypertension I10 ; Hyperlipemia E78.5 ; Rheumatoid arthritis with rheumatoid factor of right wrist without organ or systems involvement M05.731 ; Elevated white blood cell count, unspecified D72.829 ; Acute non- recurrent frontal sinusitis J01.10 and Chronic pain G89.29 [place] [id number] [place] [address] Nov, [place] [address] [address] Nov, Elevated white blood cell count, unspecified D72.829 ; Encounter for immunization Z23 ; Rheumatoid arthritis with rheumatoid factor of right wrist without organ or systems involvement M05.731 ; Injury of left hand S69.92XA ; Pain in left knee M25.562 and Other chronic pain G89.29 [place] [address] [address] Nov, [place] [address] [address] Nov, [place] [address] [address] Oct, [place] [address] [address] Oct, Hyperlipemia E78.5 [place] [address] [address] Oct, [place] [address] [address] Oct, Type 2 diabetes mellitus with diabetic neuropathy, unspecified E11.40 ; Neuropathy G62.9 ; Hypertension I10 ; Chronic pain G89.29 and Hyperlipemia E78.5 [place] [address] [address] Oct, Emphysema, unspecified J43.9 and Rheumatoid arthritis of left wrist without organ or system involvement with positive rheumatoid factor M05.732 [place] [facility] [id number] [place] [address] Sep, Chronic pain syndrome G89.4 [facility] [id number] [place] [address] Sep, [facility] [id number] [place] [address] Sep, [facility] [id number] [place] [address] Sep, Closed nondisplaced fracture of scaphoid of left wrist, unspecified portion of scaphoid, initial encounter S62.002A [place] [id number] [place] [address] Sep, Type 2 diabetes mellitus with diabetic neuropathy, unspecified E11.40 ; Hypertension I10 ; Hyperlipemia E78.5 and Acute non-recurrent maxillary sinusitis J01.00 [facility] [facility] [id number] [place] [address] Sep, [facility] [id number] [place] [address] Sep, [facility] [id number] [place] [address] Sep, [facility] [id number] [place] [address] Sep, [facility] [id number] [place] [address] Aug, Epigastric pain R10.13 and Right upper quadrant pain R10.11 [facility] [id number] [place] [address] Aug, Closed nondisplaced fracture of scaphoid of left wrist, unspecified portion of scaphoid, initial encounter S62.002A [facility] [id number] [place] [address] Aug, [place] [address] [place] [address] Aug, [facility] [id number] [place] [address] Aug, Shortness of breath R06.02 ; Epigastric pain R10.13 and Injury of left lower arm, initial encounter S59.912A [place] [id number] [place] [address] Aug, Coronary artery disease involving mary[place] igloo heart with angina pectoris, unspecified vessel or lesion type I25.119 ; Pulmonary emphysema, unspecified emphysema type J43.9 and Snoring R06.83 [place] [id number] [place] [address] Aug, [facility] [id number] [place] [address] Aug, Emphysema, unspecified J43.9 ; 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[place] 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 and Hypertension I10 [facility] [id number] [place] [address] July, [place] [id number] [place] [address] July, Closed nondisplaced fracture of scaphoid of left wrist, unspecified portion of scaphoid, initial encounter S62.002A [place] [id number] [place] [address] July, [place] [id number] [place] [address] July, Type 2 diabetes mellitus with diabetic neuropathy, unspecified E11.40 ; Emphysema, unspecified J43.9 ; 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 ; [...] agents L24.89 and Hospital discharge follow-up Z09 [facility] [id number] [place] [address] July, [facility] [id number] [place] [address] July, Type 2 diabetes mellitus with diabetic neuropathy, unspecified E11.40 [facility] [id number] [place] [address] July, Type 2 diabetes mellitus with diabetic neuropathy, unspecified E11.40 and Rheumatoid arthritis of left wrist without organ or system involvement with positive rheumatoid factor M05.732 [facility] [id number] [place] [id number] July, [facility] [id number] [place] [id number] July, [facility] [id number] [place] [id number] Jun, [facility] [id number] [place] [id number] Jun, [facility] [id number] [place] [id number] Jun, 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 [facility] [id number] [place] [id number] Jun, [facility] [id number] [place] [address] Jun, 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 [facility] [id number] [place] [id number] Jun, [facility] [id number] [place] [phone] Jun, [facility] [address] [id number] Jun, Encounter for PPD test Z11.1 ; Rheumatoid arthritis with rheumatoid factor of right wrist without organ or systems involvement M05.731 and Rheumatoid arthritis of left wrist without organ or system involvement with positive rheumatoid factor M05.732 [place] [address] [address] Jun, Type 2 diabetes mellitus with diabetic neuropathy, unspecified E11.40 [place] [address] [address] May, Type 2 diabetes mellitus with diabetic neuropathy, unspecified E11.40 ; Emphysema, unspecified J43.9 ; Rheumatoid arthritis with rheumatoid factor of right wrist without organ or systems involvement M05.731 ; Rheumatoid arthritis of left wrist without organ or system involvement with positive rheumatoid factor M05.732 and Chronic pain G89.29 [place] [address] [address] May, [place] [address] [address] May, Swelling of hand joint M25.449 ; Ankle swelling M25.473 and Joint pain M25.50 [place] [address] [address] May, Emphysema, unspecified J43.9 [place] [address] [address] May, Gastroenteritis K52.9 and Hypertension I10 [place] [address] [address] Apr, [place] [address] [address] Apr, [place] [address] [address] Apr, [place] [address] [address] Apr, Type 2 diabetes mellitus with diabetic neuropathy, unspecified E11.40 ; Emphysema, unspecified J43.9 ; 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 ; Migraine without aura, not intractable, with status migrainosus G43.001 ; Gastro-esophageal reflux disease without esophagitis K21.9 ; CAD (coronary artery disease) I25.10 ; Hypertension I10 ; Hyperlipemia E78.5 ; Allergic rhinitis J30.9 ; Neuropathy G62.9 ; Anxiety associated with depression F41.8 and Injury of left hand S69.92XA [address] [address] Apr, [address] [address] Apr, [address] [address] Apr, Type 2 diabetes mellitus with diabetic neuropathy, unspecified E11.40 ; Emphysema, unspecified J43.9 ; Essential (primary) hypertension I10 ; 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 ; Gastro-esophageal reflux disease without esophagitis K21.9 ; CAD (coronary artery disease) I25.10 ; Hyperlipemia E78.5 ; Hypertension I10 ; History of solitary pulmonary nodule Z87.898 ; Allergic rhinitis J30.9 ; Chronic pain G89.29 and Depression with anxiety F41.8 [place] [address] [place] [id number] [place] [address] Mar, [address] [address] Mar, Allergic rhinitis J30.9 ; URI (upper respiratory infection) J06.9 and Other viral agents as the cause of diseases classified elsewhere B97.89 [facility] [address] [place] [id number] [place] [address] Feb, Acute nasopharyngitis [common cold] J00 and Acute diarrhea R19.[id number] [place] [address] Feb, Depression F32.9 [place] [address] [address] Jan, Otitis media, right H66.91 [place] [address] [address] Jan, [place] [address] [address] Jan, Type 2 diabetes mellitus with diabetic neuropathy, unspecified E11.40 [place] [address] [address] Jan, [place] [address] [address] Jan, Hyperlipemia E78.5 [place] [address] [address] Jan, Type 2 diabetes mellitus with diabetic neuropathy, unspecified E11.40 ; Emphysema, unspecified J43.9 ; CAD (coronary artery disease) I25.10 and Hyperlipemia E78.5 [place] [address] [place] [id number] [place] [address] Dec, Allergic rhinitis J30.9 and Fungal infection B49 [place] [address] [place] [id number] [place] [address] Dec, [place] [address] [place] [id number] [place] [address] Dec, [place] [address] [address] Dec, Chest pain R07.9 ; CAD (coronary artery disease) I25.10 ; Hypertension I10 and Hyperlipemia E78.5 [place] [address] [place] [id number] [place] [address] 08 Dec, 2014 Pain in thoracic spine M54.6 ; Gastro-esophageal reflux disease without esophagitis K21.9 ; Emphysema, unspecified J43.9 and Migraine without aura, not intractable, with status migrainosus G43.001 [place] [address] [place] [id number] [place] [address] Dec, [place] [address] [place] [id number] [place] [address] Nov, Influenza vaccine administered V04.81 [place] [address] [address] Nov, [place] [address] [address] Sep, [place] [address] [address] Sep, [place] [address] [address] Sep, CAD (coronary artery disease) 414.00 and Diabetes type 2, uncontrolled 250.02 [place] [address] [place] [id number] [place] [address] Sep, CAD (coronary artery disease) 414.00 ; Diabetes type 2, uncontrolled 250.02 and Migraine 346.90 IMMUNIZATIONS No Known Immunizations SOCIAL HISTORY Never Assessed REASON FOR VISIT questions about script PLAN OF CARE VITAL SIGNS MEDICATIONS Unknown Medications RESULTS No Results PROCEDURES No Known procedures INSTRUCTIONS MEDICATIONS ADMINISTERED No Known Medications MEDICAL (GENERAL) HISTORY Type Description Date Medical History COPD Medical History Type 2 Diabetes Medical History HTN Medical History Cardiac stents July 2010 post W[place]-stent to LAD Medical History Rheumatoid Arthritis Medical History 04/2016---Echo- 60%//mild hypertrophy at the base of the septum, mild mitral regurg/ mild tricuspid regurg. PAP about 10-15 mmHg Medical History 04/2016------Normal Lexiscan Medical History Elevated white blood cell count, unspecified Medical History 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 coronary artery without angina pectoris Medical History [...]
--- OUTSIDE RECORDS SUMMARY | 2018-08-23 17:23 | XMS REPORT ---
Author Author CLAU DELEON Organization [facility] Address [address] [place] [address] Care Team Providers Care Shop Assistant Name Role Phone DELEONROB MoranELE Unavailable PROBLEMS Type Condition ICD9-CM Code TZV43-WO Code Onset Dates Condition Status SNOMED Code Problem Neuropathy G62.9 Active 920149166 Problem Other hammer toe(s) (acquired), right foot M20.41 Active 858616880 Problem Other hammer toe(s) (acquired), left foot M20.42 Active 06075199 Problem Anxiety F41.9 Active 14420525 Problem Type 2 diabetes mellitus with diabetic neuropathy, unspecified E11.40 Active 96332392 Problem Hammer toe of left foot M20.42 Active 657089006 Problem Hyperlipemia E78.5 Active 75515450 Problem Hypertension I10 Active 88202712 Problem COPD with exacerbation J44.1 Active 361231319692080 Problem Tobacco abuse Z72.0 Active 834527201 Problem COPD with acute exacerbation J44.1 Active 451605789 Problem Back pain of lumbar region with sciatica M54.40 Active 239264934 Problem Allergic rhinitis J30.9 Active 36143022 Problem Anxiety associated with depression F41.8 Active 271985257 Problem Gastro-esophageal reflux disease without esophagitis K21.9 Active 177108729 Problem Emphysema, unspecified J43.9 Active 88519987 Problem Rheumatoid arthritis involving multiple sites with positive rheumatoid factor M05.79 Active 934403190 Problem Primary insomnia F51.01 Active 2710775 Problem Chronic pain G89.29 Active 13528329 Problem Periodontitis K05.30 Active 32922093 Problem Vitamin D deficiency E55.9 Active 05878883 Problem OAB (overactive bladder) N32.81 Active 685490780 Problem Dependence on nocturnal oxygen therapy Z99.81 Active [id number] ALLERGIES No Information ENCOUNTERS Encounter Location Date Diagnosis [facility] [address] [facility] [id number] [address] Oct, [facility] [address] [address] Aug, [facility] [id number] [place] [address] July, [facility] [id number] [place] [address] July, [facility] [id number] [place] [address] July, Chronic pain G89.29 [facility] [id number] [place] [address] July, [facility] [id number] [place] [address] July, Onychomycosis B35.1 ; Hammer toe of left foot M20.42 and Type 2 diabetes mellitus with diabetic neuropathy, unspecified E11.40 [facility] [address] [address] July, [facility] [id number] [place] [address] July, Chronic pain G89.[address] [facility] [address] [address] July, [facility] [address] [address] July, [facility] [address] [address] Jun, [facility] [id number] [address] Jun, Chronic pain G89.29 [facility] [address] [address] Jun, [facility] [address] [address] [address] Jun, [facility] [id number] [place] [address] Jun, Visit for TB skin test Z11.1 [facility] [address] [address] 16 Jun, 2017 [facility] [id number] [place] [address] Jun, [facility] [id number] [place] [phone] Jun, Tobacco abuse Z72.0 and Rheumatoid arthritis involving multiple sites with positive rheumatoid factor M05.79 [facility] [id number] [place] [address] Jun, Anxiety F41.9 ; Acute non-recurrent maxillary sinusitis J01.00 and Chronic pain G89.29 [facility] [id number] [place] [address] Jun, [facility] [id number] [place] [address] May, Rheumatoid arthritis involving multiple sites with positive rheumatoid factor M05.79 [facility] [id number] [place] [address] May, Chronic pain G89.29 [facility] [address] [address] May, [facility] [address] [address] May, [facility] [id number] [place] [address] May, [facility] [address] [address] May, Type 2 diabetes mellitus with diabetic neuropathy, unspecified E11.40 [facility] [id number] [place] [address] May, Type 2 diabetes mellitus with diabetic neuropathy, unspecified E11.40 ; Emphysema, unspecified J43.9 ; Hypertension I10 ; Hyperlipemia E78.5 ; Vitamin D deficiency E55.9 ; Right medial knee pain M25.561 ; Controlled substance agreement signed Z79.899 ; Chronic pain G89.29 ; Allergic rhinitis J30.9 ; Anxiety associated with depression F41.8 ; Neuropathy G62.9 and Gastro- esophageal reflux disease without esophagitis K21.9 [facility] [id number] [place] [address] Apr, Chronic pain G89.29 [facility] [id number] [place] [address] 16 Apr, 2017 Other hammer toe(s) (acquired), left foot M20.42 ; Other hammer toe(s) (acquired), right foot M20.41 ; Type 2 diabetes mellitus with diabetic neuropathy, unspecified E11.40 and Onychomycosis B35.1 [facility] [id number] [place] [address] 2017 Gastro-esophageal reflux disease without esophagitis K21.9 [facility] [id number] [place] [address] Apr, Controlled substance agreement signed Z79.899 [facility] [id number] [place] [address] Mar, Chronic pain G89.29 [facility] [id number] [place] [address] Mar, Emphysema, unspecified J43.9 and Type 2 diabetes mellitus with diabetic neuropathy, unspecified E11.40 [facility] [id number] [place] [address] Mar, Dysuria R30.0 ; Vaginal candidiasis B37.3 and Acute nonintractable headache, unspecified headache type R51 [facility] [id number] [place] [address] Feb, Neuropathy G62.9 and Chronic pain G89.29 [facility] [id number] [place] [address] Feb, Gastro-esophageal reflux disease without esophagitis K21.9 [facility] [id number] [place] [address] Feb, [facility] [id number] [place] [address] Feb, Rheumatoid arthritis involving multiple sites with positive rheumatoid factor M05.79 and COPD with acute exacerbation J44.1 [facility] [id number] [place] [address] Feb, Vaginal odor N89.8 ; Vaginal irritation N89.8 ; Candidal dermatitis B37.2 and Screening breast examination Z12.31 [facility] [id number] [place] [phone] Feb, [facility] [id number] [place] [phone] Feb, [facility] [id number] [place] [phone] Feb, [facility] [id number] [place] [address] Feb, COPD with exacerbation J44.1 ; Tobacco abuse counseling Z71.6 ; Tobacco abuse Z72.0 ; Rheumatoid arthritis involving multiple sites with positive rheumatoid factor M05.[address] [facility] [id number] [place] [address] Feb, [facility] [id number] [place] [phone] Jan, [facility] [id number] [place] [phone] Jan, Chronic pain G89.29 [facility] [id number] [place] [phone] 27 Jan, 2017 Dental examination Z01.20 [facility] [id number] [place] [phone] 19 Jan, 2017 Back pain of lumbar region with sciatica M54.40 [facility] IN [facility] [id number] [place] [phone] 15 Jan, 2017 Acute bacterial conjunctivitis of both eyes H10.33 [facility] [id number] [place] [phone] 02 Jan, 2017 Chronic pain G89.29 [facility] [id number] [place] [phone] 31 Dec, 2016 Type 2 diabetes mellitus with diabetic neuropathy, unspecified E11.40 ; Hypertension I10 ; Hyperlipemia E78.5 ; Gastro-esophageal reflux disease without esophagitis K21.9 ; Anxiety associated with depression F41.8 ; Allergic rhinitis J30.9 ; Neuropathy G62.9 and Dependence on nocturnal oxygen therapy Z99.81 [facility] [id number] [place] [phone] Dec, [facility] [id number] [place] [phone] Dec, [facility] [id number] [place] [phone] 09 Dec, 2016 Encounter for immunization Z23 [facility] [id number] [place] [phone] 05 Dec, 2016 Type 2 diabetes mellitus with diabetic neuropathy, unspecified E11.40 and Chronic pain G89.29 [facility] [id number] [place] [phone] 11 Nov, 2016 Gastro-esophageal reflux disease without esophagitis K21.9 [facility] [id number] [place] [phone] Nov, Peripheral edema R60.9 and Chest pain in adult R07.9 [facility] [id number] [place] [phone] 07 Nov, [address] [facility] [id number] [place] [phone] 31 Oct, 2016 [facility] [id number] [place] [phone] Oct, [facility] [id number] [place] [id number] 17 Oct, 2016 Rheumatoid arthritis with rheumatoid factor of right wrist without organ or systems involvement M05.731 [facility] [address] [address] 15 Oct, 2016 [facility] [id number] [place] [phone] Oct, Acute exacerbation of chronic obstructive pulmonary disease (COPD) J44.1 and Canker sore K12.0 [facility] [id number] [place] [phone] Oct, [facility] [id number] [place] [phone] Oct, [facility] [id number] [place] [address] Oct, Chronic pain G89.29 [facility] [id number] [place] [phone] Oct, Dental examination Z01.20 [facility] [id number] [place] [phone] Oct, Dental examination Z01.20 and Periodontitis K05.30 [facility] [id number] [place] [phone] Oct, Dental examination Z01.20 [facility] [id number] [place] [phone] Sep, Abscess L02.91 [facility] [address] [address] Sep, Dental examination Z01.20 [facility] [id number] [place] [address] Sep, [facility] [address] [phone] Sep, Dental examination Z01.20 and Dental caries K02.9 [facility] [id number] [place] [address] Sep, Primary insomnia F51.01 and Anxiety associated with depression F41.8 [facility] [id number] [place] [address] Sep, Rheumatoid arthritis with rheumatoid factor of right wrist without organ or systems involvement M05.731 [facility] [id number] [place] [address] Sep, Chronic pain G89.29 [facility] [id number] [place] [address] Sep, Type 2 diabetes mellitus with diabetic neuropathy, unspecified E11.40 ; Emphysema, unspecified J43.9 ; Gastro-esophageal reflux disease without esophagitis K21.9 ; Hypertension I10 ; Hyperlipemia E78.5 ; Anxiety associated with depression F41.8 ; Chronic pain G89.29 ; Vitamin D deficiency E55.9 and Primary insomnia F51.01 [facility] [address] [place] [address] 16 Aug, 2016 Anxiety associated with depression F41.8 [facility] [id number] [place] [address] Aug, Chronic pain G89.29 and Neuropathy G62.9 [facility] [id number] [place] [address] Aug, Type 2 diabetes mellitus with diabetic neuropathy, unspecified E11.40 ; Rheumatoid arthritis involving multiple sites with positive rheumatoid factor M05.79 ; Vitamin D deficiency E55.9 ; Anxiety associated with depression F41.8 and Primary insomnia F51.01 [facility] [address] [address] July, Emphysema, unspecified J43.9 [facility] [address] [address] July, Allergic rhinitis J30.9 [facility] [address] [address] July, Allergic rhinitis J30.9 ; Emphysema, unspecified J43.9 and Rheumatoid arthritis with rheumatoid factor of right wrist without organ or systems involvement M05.731 [facility] [address] [address] July, Neuropathy G62.9 and Chronic pain G89.29 [facility] [address] [address] July, Rheumatoid arthritis involving multiple sites with positive rheumatoid factor M05.79 [facility] [address] [address] Jun, [facility] [address] [address] Jun, Neuropathy G62.9 and Chronic pain G89.29 [facility] [address] [address] May, Neuropathy G62.9 and Chronic pain G89.29 [facility] [id number] [place] [address] May, [facility] [address] [address] May, [facility] [id number] [place] [address] May, Type 2 diabetes mellitus with diabetic [...] system involvement with positive rheumatoid factor M05.732 [facility] [address] [address] 14 Apr, 2016 Chronic pain G89.29 [facility] [address] [address] Mar, Gastro-esophageal reflux disease without esophagitis K21.[address] [address] Mar, [address] [address] Mar, Rheumatoid arthritis with rheumatoid factor of right wrist without organ or systems involvement M05.731 [facility] [address] [address] Mar, Chronic pain G89.29 [facility] [address] [address] Feb, Hyperlipemia E78.5 [facility] [address] [address] Feb, Abnormal breath sounds R06.89 ; COPD with exacerbation J44.1 and Fatigue, unspecified type R53.[address] [address] Feb, Neuropathy G62.9 ; Abnormal lung sounds R09.89 and Bronchitis J40 [facility] [address] [address] Feb, Bronchitis J40 [facility] [address] [address] Feb, Chronic pain G89.29 [facility] [id number] [place] [address] Jan, Type 2 diabetes mellitus with diabetic neuropathy, unspecified E11.40 ; Rheumatoid arthritis with rheumatoid factor of right wrist without organ or systems involvement M05.731 and Hyperlipemia E78.5 [facility] [id number] [place] [address] Jan, Rheumatoid arthritis with rheumatoid factor of right wrist without organ or systems involvement M05.731 [facility] [id number] [place] [address] Jan, De Quervain's disease (radial styloid tenosynovitis) M65.4 ; Closed nondisplaced fracture of scaphoid of left wrist, unspecified portion of scaphoid, initial encounter S62.002A and Peripheral tear of medial meniscus of left knee, unspecified whether old or current tear, initial encounter S83.222A [facility] [address] [place] [address] Jan, Hypertension I10 ; Type 2 diabetes mellitus with diabetic neuropathy, unspecified E11.40 ; Hyperlipemia E78.5 ; Allergic rhinitis J30.9 ; Neuropathy G62.9 ; Rheumatoid arthritis with rheumatoid factor of right wrist without organ or systems involvement M05.731 ; Acute non-recurrent maxillary sinusitis J01.00 and Chronic pain G89.29 [facility] [address] [address] Dec, [facility] [id number] [place] [address] Dec, [facility] [address] [place] [address] Dec, Type 2 diabetes mellitus with diabetic neuropathy, unspecified E11.40 ; Emphysema, unspecified J43.9 ; Gastro-esophageal reflux disease without esophagitis K21.9 ; Hypertension I10 ; Hyperlipemia E78.5 ; Rheumatoid arthritis with rheumatoid factor of right wrist without organ or systems involvement M05.731 ; Elevated white blood cell count, unspecified D72.829 ; Acute non- recurrent frontal sinusitis J01.10 and Chronic pain G89.29 [facility] [id number] [place] [address] Nov, [facility] [address] [address] Nov, Elevated white blood cell count, unspecified D72.829 ; Encounter for immunization Z23 ; Rheumatoid arthritis with rheumatoid factor of right wrist without organ or systems involvement M05.731 ; Injury of left hand S69.92XA ; Pain in left knee M25.562 and Other chronic pain G89.29 [facility] [address] [address] Nov, [facility] [address] [address] Nov, [facility] [address] [address] Oct, [facility] [address] [address] Oct, Hyperlipemia E78.5 [facility] [address] [address] Oct, [facility] [address] [address] Oct, Type 2 diabetes mellitus with diabetic neuropathy, unspecified E11.40 ; Neuropathy G62.9 ; Hypertension I10 ; Chronic pain G89.29 and Hyperlipemia E78.5 [facility] [address] [address] Oct, Emphysema, unspecified J43.9 and Rheumatoid arthritis of left wrist without organ or system involvement with positive rheumatoid factor M05.732 [facility] [id number] [place] [address] Sep, Chronic pain syndrome G89.4 [facility] [id number] [place] [address] Sep, [facility] [id number] [place] [address] Sep, [facility] [id number] [place] [address] Sep, Closed nondisplaced fracture of scaphoid of left wrist, unspecified portion of scaphoid, initial encounter S62.002A [facility] [id number] [place] [address] Sep, Type 2 diabetes mellitus with diabetic neuropathy, unspecified E11.40 ; Hypertension I10 ; Hyperlipemia E78.5 and Acute non-recurrent maxillary sinusitis J01.00 [facility] [id number] [place] [address] Sep, [facility] [id number] [place] [address] Sep, [facility] [id number] [place] [address] Sep, [facility] [id number] [place] [phone] Sep, [facility] [id number] [place] [phone] Aug, Epigastric pain R10.13 and Right upper quadrant pain R10.11 [facility] [id number] [place] [phone] Aug, Closed nondisplaced fracture of scaphoid of left wrist, unspecified portion of scaphoid, initial encounter S62.002A [facility] [id number] [place] [phone] Aug, [place] [address] [id number] [place] [phone] Aug, [facility] [id number] [place] [phone] Aug, Shortness of breath R06.02 ; Epigastric pain R10.13 and Injury of left lower arm, initial encounter S59.912A [place] [id number] [place] [phone] Aug, Coronary artery disease involving [place] heart with angina pectoris, unspecified vessel or lesion type I25.119 ; Pulmonary emphysema, unspecified emphysema type J43.9 and Snoring R06.83 [place] [id number] [place] [phone] Aug, [place] [id number] [place] [phone] Aug, Emphysema, unspecified J43.9 ; Atherosclerotic heart disease of [place] coronary artery without angina pectoris I25.[address] [facility] [id number] [place] [phone] July, [place] [address] [id number] [place] [phone] July, Closed nondisplaced fracture of scaphoid of left wrist, unspecified portion of scaphoid, initial encounter S62.002A [place] [id number] [place] [phone] July, [place] [id number] [place] [phone] July, Type 2 diabetes mellitus with diabetic neuropathy, unspecified E11.40 ; Emphysema, unspecified J43.9 ; Atherosclerotic heart disease of [place] coronary artery without angina pectoris I25.10 ; [...] agents L24.89 and Hospital discharge follow-up Z09 [facility] [id number] [place] [phone] July, [facility] [id number] [place] [id number] July, Type 2 diabetes mellitus with diabetic neuropathy, unspecified E11.40 [facility] [id number] [place] [phone] July, Type 2 diabetes mellitus with diabetic neuropathy, unspecified E11.40 and Rheumatoid arthritis of left wrist without organ or system involvement with positive rheumatoid factor M05.732 [facility] [id number] [place] [phone] July, [facility] [id number] [place] [phone] July, [facility] [id number] [place] [phone] Jun, [facility] [id number] [place] [phone] Jun, [facility] [id number] [place] [phone] Jun, 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 [facility] [id number] [place] [phone] Jun, [facility] [id number] [place] [phone] Jun, 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 [facility] [id number] [place] [phone] Jun, [facility] [id number] [place] [phone] Jun, [facility] [address] [address] Jun, Encounter for PPD test Z11.1 ; Rheumatoid arthritis with rheumatoid factor of right wrist without organ or systems involvement M05.731 and Rheumatoid arthritis of left wrist without organ or system involvement with positive rheumatoid factor M05.732 [place] [address] [address] Jun, Type 2 diabetes mellitus with diabetic neuropathy, unspecified E11.40 [place] [address] [address] May, Type 2 diabetes mellitus with diabetic neuropathy, unspecified E11.40 ; Emphysema, unspecified J43.9 ; Rheumatoid arthritis with rheumatoid factor of right wrist without organ or systems involvement M05.731 ; Rheumatoid arthritis of left wrist without organ or system involvement with positive rheumatoid factor M05.732 and Chronic pain G89.29 [place] [address] [address] May, [place] [address] [address] May, Swelling of hand joint M25.449 ; Ankle swelling M25.473 and Joint pain M25.50 [place] [address] [address] May, Emphysema, unspecified J43.9 [place] [address] [address] May, Hypertension I10 and Gastroenteritis K52.9 [place] [address] [address] Apr, [place] [address] [address] Apr, [place] [address] [address] Apr, [place] [address] [address] Apr, Type 2 diabetes mellitus with diabetic neuropathy, unspecified E11.40 ; Emphysema, unspecified J43.9 ; Atherosclerotic heart disease of [place] coronary artery without angina pectoris I25.10 ; Migraine without aura, not intractable, with status migrainosus G43.001 ; Gastro-esophageal reflux disease without esophagitis K21.9 ; CAD (coronary artery disease) I25.10 ; Hypertension I10 ; Hyperlipemia E78.5 ; Allergic rhinitis J30.9 ; Neuropathy G62.9 ; Anxiety associated with depression F41.8 and Injury of left hand S69.92XA [address] [address] Apr, [address] [address] Apr, [address] [address] Apr, Type 2 diabetes mellitus with diabetic neuropathy, unspecified E11.40 ; Emphysema, unspecified J43.9 ; Essential (primary) hypertension I10 ; Atherosclerotic heart disease of [place] coronary artery without angina pectoris I25.10 ; Gastro-esophageal reflux disease without esophagitis K21.9 ; CAD (coronary artery disease) I25.10 ; Hyperlipemia E78.5 ; Hypertension I10 ; History of solitary pulmonary nodule Z87.898 ; Allergic rhinitis J30.9 ; Chronic pain G89.29 and Depression with anxiety F41.8 [place] [id number] [place] [address] Mar, [address] [address] Mar, Allergic rhinitis J30.9 ; URI (upper respiratory infection) J06.9 and Other viral agents as the cause of diseases classified elsewhere B97.89 [facility] [id number] [place] [phone] Feb, Acute nasopharyngitis [common cold] J00 and Acute diarrhea R19.[id number] [place] [id number] Feb, Depression F32.9 [place] [address] [address] Jan, Otitis media, right H66.91 [place] [address] [address] Jan, [place] [address] [address] Jan, Type 2 diabetes mellitus with diabetic neuropathy, unspecified E11.40 [place] [address] [address] Jan, [place] [address] [address] Jan, Hyperlipemia E78.5 [place] [address] [address] Jan, Type 2 diabetes mellitus with diabetic neuropathy, unspecified E11.40 ; Emphysema, unspecified J43.9 ; CAD (coronary artery disease) I25.10 and Hyperlipemia E78.5 [place] [id number] [place] [phone] Dec, Allergic rhinitis J30.9 and Fungal infection B49 [place] [id number] [place] [phone] Dec, [place] [id number] [place] [phone] Dec, [place] [address] [address] Dec, Chest pain R07.9 ; CAD (coronary artery disease) I25.10 ; Hypertension I10 and Hyperlipemia E78.5 [place] [id number] [place] [phone] 08 Dec, 2014 Pain in thoracic spine M54.6 ; Gastro-esophageal reflux disease without esophagitis K21.9 ; Emphysema, unspecified J43.9 and Migraine without aura, not intractable, with status migrainosus G43.001 [place] [id number] [place] [phone] Dec, [place] [id number] [place] [phone] Nov, Influenza vaccine administered V04.81 [place] [address] [address] Nov, [place] [address] [address] Sep, [place] [address] [address] Sep, [place] [address] [address] Sep, CAD (coronary artery disease) 414.00 and Diabetes type 2, uncontrolled 250.02 [place] [id number] [place] [address] Sep, CAD (coronary artery disease) 414.00 ; [...] Medical History Cardiac stents July 2010 post OK-stent to LAD Medical History Rheumatoid Arthritis Medical History 04/2016---Echo- 60%//mild hypertrophy at the base of the septum, mild mitral regurg/ mild tricuspid regurg. PAP about 10-15 mmHg Medical History 04/2016------Normal Lexiscan Medical History Elevated white blood cell count, unspecified Medical History Atherosclerotic heart disease of [place] coronary artery without angina pectoris Medical History [...]
--- OUTSIDE RECORDS SUMMARY | 2018-08-23 17:24 | XMS REPORT ---
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 Name Role Phone DELEONCLAU Moran Unavailable PROBLEMS Type Condition ICD9-CM Code QZE11-KW Code Onset Dates Condition Status SNOMED Code Problem Dependence on nocturnal oxygen therapy Z99.81 Active 68125826770963 Problem Other hammer toe(s) (acquired), left foot M20.42 Active 19245363 Problem Neuropathy G62.9 Active 532443122 Problem Anxiety F41.9 Active 57069545 Problem Hyperlipemia E78.5 Active 04493380 Problem COPD with acute exacerbation J44.1 Active 643413949 Problem Hypertension I10 Active 60542445 Problem Vitamin D deficiency E55.9 Active 64322659 Problem Tobacco abuse Z72.0 Active 682972409 Problem Other hammer toe(s) (acquired), right foot M20.41 Active 768878244 Problem Back pain of lumbar region with sciatica M54.40 Active 712501496 Problem COPD with exacerbation J44.1 Active 914921301837986 Problem Emphysema, unspecified J43.9 Active 76670659 Problem Allergic rhinitis J30.9 Active 86536558 Problem Type 2 diabetes mellitus with diabetic neuropathy, unspecified E11.40 Active 47107011 Problem Gastro-esophageal reflux disease without esophagitis K21.9 Active 035237404 Problem OAB (overactive bladder) N32.81 Active 173784505 Problem Rheumatoid arthritis involving multiple sites with positive rheumatoid factor M05.79 Active 562441658 Problem Anxiety associated with depression F41.8 Active 850639377 Problem Primary insomnia F51.01 Active 6855825 Problem Chronic pain G89.29 Active 88206846 Problem Periodontitis K05.30 Active 51738798 ALLERGIES No Information ENCOUNTERS Encounter Location Date Diagnosis [facility] [address] [facility] [id number] [address] Aug, [facility] [id number] [place] [address] July, [facility] [id number] [place] [address] July, Chronic pain G89.29 and Neuropathy G62.9 [facility] [id number] [place] [address] July, [facility] [id number] [place] [address] July, [facility] [id number] [place] [address] Jun, [facility] [id number] [place] [address] Jun, Chronic pain G89.29 [facility] [id number] [place] [address] Jun, [facility] [id number] [place] [address] Jun, [facility] [id number] [place] [address] Jun, Visit for TB skin test Z11.1 [facility] [id number] [place] [address] 16 Jun, 2017 [facility] [id number] [place] [address] Jun, [facility] [id number] [place] [address] Jun, Tobacco abuse Z72.0 and Rheumatoid arthritis involving multiple sites with positive rheumatoid factor M05.79 [facility] [id number] [place] [address] Jun, Anxiety F41.9 ; Acute non-recurrent maxillary sinusitis J01.00 and Chronic pain G89.29 [facility] [id number] [address] Jun, [place] [id number] [place] [address] May, Rheumatoid arthritis involving multiple sites with positive rheumatoid factor M05.79 [place] [id number] [place] [address] May, Chronic pain G89.29 [place] [id number] [place] [address] May, [place] [id number] [place] [address] May, [place] [id number] [place] [address] May, [place] [id number] [place] [address] May, Type 2 diabetes mellitus with diabetic neuropathy, unspecified E11.40 [place] [id number] [place] [address] May, Type 2 diabetes mellitus with diabetic neuropathy, unspecified E11.40 ; Emphysema, unspecified J43.9 ; Hypertension I10 ; Hyperlipemia E78.5 ; Vitamin D deficiency E55.9 ; Right medial knee pain M25.561 ; Controlled substance agreement signed Z79.899 ; Chronic pain G89.29 ; Allergic rhinitis J30.9 ; Anxiety associated with depression F41.8 ; Neuropathy G62.9 and Gastro- esophageal reflux disease without esophagitis K21.9 [place] [id number] [place] [address] Apr, Chronic pain G89.29 [place] [id number] [place] [address] 16 Apr, 2017 Other hammer toe(s) (acquired), left foot M20.42 ; Other hammer toe(s) (acquired), right foot M20.41 ; Type 2 diabetes mellitus with diabetic neuropathy, unspecified E11.40 and Onychomycosis B35.1 [facility] [id number] [place] [address] 2017 Gastro-esophageal reflux disease without esophagitis K21.9 [place] [id number] [place] [address] 02 Apr, 2017 Controlled substance agreement signed Z79.899 [place] [address] [address] Mar, Chronic pain G89.29 [place] [id number] [place] [address] Mar, Emphysema, unspecified J43.9 and Type 2 diabetes mellitus with diabetic neuropathy, unspecified E11.40 [facility] [id number] [place] [address] Mar, Dysuria R30.0 ; Vaginal candidiasis B37.3 and Acute nonintractable headache, unspecified headache type R51 [place] [id number] [place] [address] Feb, Neuropathy G62.9 and Chronic pain G89.29 [place] [id number] [place] [address] Feb, Gastro-esophageal reflux disease without esophagitis K21.9 [place] [id number] [place] [address] Feb, [place] [id number] [place] [address] Feb, Rheumatoid arthritis involving multiple sites with positive rheumatoid factor M05.79 and COPD with acute exacerbation J44.1 [place] [address] [address] Feb, Vaginal odor N89.8 ; Vaginal irritation N89.8 ; Candidal dermatitis B37.2 and Screening breast examination Z12.31 [place] [id number] [place] [address] Feb, [facility] [id number] [place] [address] Feb, [place] [id number] [place] [address] Feb, [place] [id number] [place] [address] Feb, COPD with exacerbation J44.1 ; Tobacco abuse counseling Z71.6 ; Tobacco abuse Z72.0 ; Rheumatoid arthritis involving multiple sites with positive rheumatoid factor M05.79 and Hyperlipemia E78.5 [place] [id number] [place] [address] Feb, [facility] [id number] [place] [id number] Jan, [place] [id number] [place] [address] Jan, Chronic pain G89.29 [facility] [address] [id number] Jan, Dental examination Z01.20 [facility] [address] [place] [id number] [place] [address] Jan, Back pain of lumbar region with sciatica M54.40 [facility] [address] [place] [id number] [place] [address] 15 Jan, 2017 Acute bacterial conjunctivitis of both eyes H10.33 [place] [id number] [place] [address] 02 Jan, 2017 Chronic pain G89.29 [place] [id number] [place] [address] Dec, Type 2 diabetes mellitus with diabetic neuropathy, unspecified E11.40 ; Hypertension I10 ; Hyperlipemia E78.5 ; Gastro-esophageal reflux disease without esophagitis K21.9 ; Anxiety associated with depression F41.8 ; Allergic rhinitis J30.9 ; Neuropathy G62.9 and Dependence on nocturnal oxygen therapy Z99.81 [place] [address] [address] 12 Dec, 2016 [place] [address] [address] 12 Dec, 2016 [place] [address] [address] 09 Dec, 2016 Encounter for immunization Z23 [place] [address] [address] 05 Dec, 2016 Type 2 diabetes mellitus with diabetic neuropathy, unspecified E11.40 and Chronic pain G89.29 [place] [address] [address] 11 Nov, 2016 Gastro-esophageal reflux disease without esophagitis K21.9 [place] [address] [address] 11 Nov, 2016 Peripheral edema R60.9 and Chest pain in adult R07.9 [place] [address] [address] 07 Nov, 2016 Chronic pain G89.29 [place] [address] [address] 31 Oct, 2016 [place] [address] [address] Oct, [place] [address] [address] 17 Oct, 2016 Rheumatoid arthritis with rheumatoid factor of right wrist without organ or systems involvement M05.731 [place] [address] [address] 15 Oct, 2016 [facility] [id number] [place] [address] 14 Oct, 2016 Acute exacerbation of chronic obstructive pulmonary disease (COPD) J44.1 and Canker sore K12.0 [facility] [id number] [place] [address] Oct, [facility] [id number] [place] [address] Oct, [facility] [id number] [place] [address] Oct, Chronic pain G89.29 [facility] [address] [id number] Oct, Dental examination Z01.20 [facility] [id number] [place] [address] Oct, Dental examination Z01.20 and Periodontitis K05.30 [facility] [id number] [place] [id number] Oct, Dental examination Z01.20 [facility] [id number] [place] [address] Sep, Abscess L02.91 [facility] [id number] [place] [address] Sep, Dental examination Z01.20 [facility] [id number] [place] [address] Sep, [facility] [id number] [place] [id number] Sep, Dental examination Z01.20 and Dental caries K02.9 [facility] [id number] [place] [address] Sep, Primary insomnia F51.01 and Anxiety associated with depression F41.8 [place] [id number] [place] [address] Sep, Rheumatoid arthritis with rheumatoid factor of right wrist without organ or systems involvement M05.731 [place] [id number] [place] [address] Sep, Chronic pain G89.29 [place] [id number] [place] [address] Sep, Type 2 diabetes mellitus with diabetic neuropathy, unspecified E11.40 ; Emphysema, unspecified J43.9 ; Gastro-esophageal reflux disease without esophagitis K21.9 ; Hypertension I10 ; Hyperlipemia E78.5 ; Anxiety associated with depression F41.8 ; Chronic pain G89.29 ; Vitamin D deficiency E55.9 and Primary insomnia F51.01 [place] [id number] [place] [address] 16 Aug, 2016 Anxiety associated with depression F41.8 [place] [address] [address] Aug, Chronic pain G89.29 and Neuropathy G62.[address] [address] Aug, Type 2 diabetes mellitus with diabetic neuropathy, unspecified E11.40 ; Rheumatoid arthritis involving multiple sites with positive rheumatoid factor M05.79 ; Vitamin D deficiency E55.9 ; Anxiety associated with depression F41.8 and Primary insomnia F51.01 [place] [id number] [place] [address] July, Emphysema, unspecified J43.9 [place] [id number] [place] [address] July, Allergic rhinitis J30.9 [place] [address] [address] July, Allergic rhinitis J30.9 ; Emphysema, unspecified J43.9 and Rheumatoid arthritis with rheumatoid factor of right wrist without organ or systems involvement M05.731 [place] [id number] [place] [address] July, Neuropathy G62.9 and Chronic pain G89.29 [place] [address] [address] July, Rheumatoid arthritis involving multiple sites with positive rheumatoid factor M05.79 [place] [id number] [place] [address] Jun, [place] [id number] [place] [address] Jun, Neuropathy G62.9 and Chronic pain G89.29 [place] [id number] [place] [address] May, Neuropathy G62.9 and Chronic pain G89.29 [place] [id number] [place] [address] May, [place] [id number] [place] [address] May, [place] [id number] [place] [phone] May, Type 2 diabetes mellitus with diabetic [...] system involvement with positive rheumatoid factor M05.732 [place] [id number] [place] [address] Apr, Chronic pain G89.29 [place] [id number] [place] [address] Mar, Gastro-esophageal reflux disease without esophagitis K21.9 [place] [id number] [place] [address] Mar, [place] [id number] [place] [address] Mar, Rheumatoid arthritis with rheumatoid factor of right wrist without organ or systems involvement M05.731 [place] [id number] [place] [address] Mar, Chronic pain G89.29 [place] [id number] [place] [address] Feb, Hyperlipemia E78.5 [place] [address] [address] Feb, Abnormal breath sounds R06.89 ; COPD with exacerbation J44.1 and Fatigue, unspecified type R53.83 [place] [id number] [place] [address] Feb, Neuropathy G62.9 ; Abnormal lung sounds R09.89 and Bronchitis J40 [facility] [id number] [place] [address] Feb, Bronchitis J40 [place] [id number] [place] [address] Feb, Chronic pain G89.29 [place] [id number] [place] [address] Jan, Type 2 diabetes mellitus with diabetic neuropathy, unspecified E11.40 ; Rheumatoid arthritis with rheumatoid factor of right wrist without organ or systems involvement M05.731 and Hyperlipemia E78.5 [place] [id number] [place] [address] Jan, Rheumatoid arthritis with rheumatoid factor of right wrist without organ or systems involvement M05.731 [place] [id number] [place] [address] Jan, De Quervain's disease (radial styloid tenosynovitis) M65.4 ; Closed nondisplaced fracture of scaphoid of left wrist, unspecified portion of scaphoid, initial encounter S62.002A and Peripheral tear of medial meniscus of left knee, unspecified whether old or current tear, initial encounter S83.222A [place] [address] [address] Jan, Hypertension I10 ; Type 2 diabetes mellitus with diabetic neuropathy, unspecified E11.40 ; Hyperlipemia E78.5 ; Allergic rhinitis J30.9 ; Neuropathy G62.9 ; Rheumatoid arthritis with rheumatoid factor of right wrist without organ or systems involvement M05.731 ; Acute non-recurrent maxillary sinusitis J01.00 and Chronic pain G89.29 [place] [address] [address] Dec, [place] [address] [address] Dec, [place] [address] [address] Dec, Type 2 diabetes mellitus with diabetic neuropathy, unspecified E11.40 ; Emphysema, unspecified J43.9 ; Gastro-esophageal reflux disease without esophagitis K21.9 ; Hypertension I10 ; Hyperlipemia E78.5 ; Rheumatoid arthritis with rheumatoid factor of right wrist without organ or systems involvement M05.731 ; Elevated white blood cell count, unspecified D72.829 ; Acute non- recurrent frontal sinusitis J01.10 and Chronic pain G89.29 [place] [id number] [place] [address] Nov, [place] [address] [address] Nov, Elevated white blood cell count, unspecified D72.829 ; Encounter for immunization Z23 ; Rheumatoid arthritis with rheumatoid factor of right wrist without organ or systems involvement M05.731 ; Injury of left hand S69.92XA ; Pain in left knee M25.562 and Other chronic pain G89.29 [place] [id number] [place] [address] Nov, [place] [address] [address] Nov, [place] [id number] [place] [address] Oct, [place] [id number] [place], [place] [phone] Oct, Hyperlipemia E78.5 [place] [id number] [place] [address] Oct, [place] [id number] [place] [address] Oct, Type 2 diabetes mellitus with diabetic neuropathy, unspecified E11.40 ; Neuropathy G62.9 ; Hypertension I10 ; Chronic pain G89.29 and Hyperlipemia E78.5 [place] [id number] [place] [address] Oct, Emphysema, unspecified J43.9 and Rheumatoid arthritis of left wrist without organ or system involvement with positive rheumatoid factor M05.732 [place] [id number] [place] [address] Sep, Chronic pain syndrome G89.4 [place] [id number] [place] [address] Sep, [place] [id number] [place] [address] Sep, [place] [id number] [place] [address] Sep, Closed nondisplaced fracture of scaphoid of left wrist, unspecified portion of scaphoid, initial encounter S62.002A [place] [id number] [place] [address] Sep, Type 2 diabetes mellitus with diabetic neuropathy, unspecified E11.40 ; Hypertension I10 ; Hyperlipemia E78.5 and Acute non-recurrent maxillary sinusitis J01.00 [place] [id number] [place] [phone] Sep, [facility] [address] [address] Sep, [facility] [address] [address] Sep, [facility] [address] [address] Sep, [facility] [id number] [place] [address] Aug, Epigastric pain R10.13 and Right upper quadrant pain R10.11 [place] [id number] [place] [address] Aug, Closed nondisplaced fracture of scaphoid of left wrist, unspecified portion of scaphoid, initial encounter S62.002A [place] [id number] [place] [address] Aug, [place] [id number] [place] [address] Aug, [facility] [id number] [place] [address] Aug, Shortness of breath R06.02 ; Epigastric pain R10.13 and Injury of left lower arm, initial encounter S59.912A [place] [address] [address] Aug, Coronary artery disease involving [place] heart with angina pectoris, unspecified vessel or lesion type I25.119 ; Pulmonary emphysema, unspecified emphysema type J43.9 and Snoring R06.83 [place] [address] [address] Aug, [facility] [address] [place] [address] Aug, Emphysema, unspecified J43.9 ; Atherosclerotic heart disease of [place] coronary artery without angina pectoris I25.10 and Hypertension I10 [place] [id number] [place] [address] July, [place] [id number] [place] [address] July, Closed nondisplaced fracture of scaphoid of left wrist, unspecified portion of scaphoid, initial encounter S62.002A [place] [id number] [place] [address] July, [place] [id number] [place] [address] July, Type 2 diabetes mellitus with diabetic neuropathy, unspecified E11.40 ; Emphysema, unspecified J43.9 ; Atherosclerotic heart disease of [place] coronary artery without angina pectoris I25.10 ; [...] agents L24.89 and Hospital discharge follow-up Z09 [place] [id number] [place] [address] July, [place] [id number] [place] [address] July, Type 2 diabetes mellitus with diabetic neuropathy, unspecified E11.40 [place] [id number] [place] [address] July, Type 2 diabetes mellitus with diabetic neuropathy, unspecified E11.40 and Rheumatoid arthritis of left wrist without organ or system involvement with positive rheumatoid factor M05.732 [place] [id number] [place] [phone] July, [place] [address] [place] [id number] [place] [id number] July, [facility] [id number] [address] Jun, [facility] [address] [place] [id number] [place] [phone] Jun, [facility] [address] [place] [id number] [place] [phone] Jun, 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 [facility] [address] [place] [id number] [place] [phone] Jun, [facility] [address] [place] [id number] [place] [phone] Jun, 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 [place] [address] [place] [id number] [place] [id number] Jun, [place] [address] [place] [id number] [place] [id number] Jun, [facility] [id number] [place] [phone] Jun, Encounter for PPD test Z11.1 ; Rheumatoid arthritis with rheumatoid factor of right wrist without organ or systems involvement M05.731 and Rheumatoid arthritis of left wrist without organ or system involvement with positive rheumatoid factor M05.732 [place] [id number] [place] [address] Jun, Type 2 diabetes mellitus with diabetic neuropathy, unspecified E11.40 [place] [id number] [place] [id number] May, Type 2 diabetes mellitus with diabetic neuropathy, unspecified E11.40 ; Emphysema, unspecified J43.9 ; Rheumatoid arthritis with rheumatoid factor of right wrist without organ or systems involvement M05.731 ; Rheumatoid arthritis of left wrist without organ or system involvement with positive rheumatoid factor M05.732 and Chronic pain G89.29 [place] [id number] [place] [address] May, [place] [address] [address] [place] [id number] [place] [address] May, Swelling of hand joint M25.449 ; Ankle swelling M25.473 and Joint pain M25.50 [place] [address] [address] [place] [id number] [place] [address] May, Emphysema, unspecified J43.9 [place] [address] [address] May, Gastroenteritis K52.9 and Hypertension I10 [place] [address] [address] [place] [id number] [place] [address] Apr, [place] [address] [address] Apr, [place] [address] [address] Apr, [place] [address] [address] [place] [id number] [place] [address] Apr, Type 2 diabetes mellitus with diabetic neuropathy, unspecified E11.40 ; Emphysema, unspecified J43.9 ; Atherosclerotic heart disease of [place] coronary artery without angina pectoris I25.10 ; Migraine without aura, not intractable, with status migrainosus G43.001 ; Gastro-esophageal reflux disease without esophagitis K21.9 ; CAD (coronary artery disease) I25.10 ; Hypertension I10 ; Hyperlipemia E78.5 ; Allergic rhinitis J30.9 ; Neuropathy G62.9 ; Anxiety associated with depression F41.8 and Injury of left hand S69.92XA [place] [address] [address] [place] [id number] [place] [id number] Apr, [place] [address] [place] [id number] [place] [address] Apr, [place] [address] [place] [id number] [place] [address] Apr, Type 2 diabetes mellitus with diabetic neuropathy, unspecified E11.40 ; Emphysema, unspecified J43.9 ; Essential (primary) hypertension I10 ; Atherosclerotic heart disease of [place] coronary artery without angina pectoris I25.10 ; Gastro-esophageal reflux disease without esophagitis K21.9 ; CAD (coronary artery disease) I25.10 ; Hyperlipemia E78.5 ; Hypertension I10 ; History of solitary pulmonary nodule Z87.898 ; Allergic rhinitis J30.9 ; Chronic pain G89.29 and Depression with anxiety F41.[address] [address] Mar, [address] [address] Mar, Allergic rhinitis J30.9 ; URI (upper respiratory infection) J06.9 and Other viral agents as the cause of diseases classified elsewhere B97.89 [facility] [address] [place] [phone] Feb, Acute nasopharyngitis [common cold] J00 and Acute diarrhea R19.[address] [address] Feb, Depression F32.[address] [address] Jan, Otitis media, right H66.[address] [address] Jan, [address] [address] Jan, Type 2 diabetes mellitus with diabetic neuropathy, unspecified E11.[address] [address] Jan, [address] [address] Jan, Hyperlipemia E78.[address] [address] Jan, Type 2 diabetes mellitus with diabetic neuropathy, unspecified E11.40 ; Emphysema, unspecified J43.9 ; CAD (coronary artery disease) I25.10 and Hyperlipemia E78.[address] [address] Dec, Allergic rhinitis J30.9 and Fungal infection B49 [address] [address] Dec, [address] [address] Dec, [address] [address] Dec, Chest pain R07.9 ; CAD (coronary artery disease) I25.10 ; Hypertension I10 and Hyperlipemia E78.[address] [address] Dec, Pain in thoracic spine M54.6 ; Gastro-esophageal reflux disease without esophagitis K21.9 ; Emphysema, unspecified J43.9 and Migraine without aura, not intractable, with status migrainosus G43.[address] [address] Dec, [address] [address] Nov, Influenza vaccine administered V04.[address] [address] Nov, [address] [address] Sep, [address] [address] Sep, [address] [address] Sep, CAD (coronary artery disease) 414.00 and Diabetes type 2, uncontrolled 250.02 [facility] [address] [facility] [id number] [place] [address] Sep, CAD (coronary artery disease) 414.00 ; Diabetes type 2, uncontrolled 250.02 and Migraine 346.90 IMMUNIZATIONS No Known Immunizations SOCIAL HISTORY Never Assessed REASON FOR VISIT rx resend PLAN OF CARE VITAL SIGNS MEDICATIONS Medication Instructions Dosage Frequency Start Date End Date Duration Status Metformin HCl 1000 MG Orally 2 times a day TAKE ONE TABLET BY MOUTH TWICE DAILY WITH MEALS 12h 30 Active Victoza 18 MG/3ML Subcutaneous Once a day 1.8mg 24h 30 Active RESULTS No Results PROCEDURES No [...] unspecified Medical History Atherosclerotic heart disease of [place] coronary artery without angina pectoris Medical History [...]
--- OUTSIDE RECORDS SUMMARY | 2018-08-23 17:24 | XMS REPORT ---
Author Author CLAU DELEON Organization [facility] Address [address] [place] [address] Care Team Providers Care Radio Installer Name Role Phone DELEONCLAU Moran Unavailable PROBLEMS Type Condition ICD9-CM Code [id number] Code Onset Dates Condition Status SNOMED Code Problem Neuropathy G62.9 Active 104612172 Problem Other hammer toe(s) (acquired), right foot M20.41 Active 051825418 Problem Other hammer toe(s) (acquired), left foot M20.42 Active 92679114 Problem Anxiety F41.9 Active 69678349 Problem Type 2 diabetes mellitus with diabetic neuropathy, unspecified E11.40 Active 14362632 Problem Hammer toe of left foot M20.42 Active 732162595 Problem Hyperlipemia E78.5 Active 40786739 Problem Hypertension I10 Active 13355990 Problem COPD with exacerbation J44.1 Active 160042639529778 Problem Tobacco abuse Z72.0 Active 052407168 Problem COPD with acute exacerbation J44.1 Active 110098022 Problem Back pain of lumbar region with sciatica M54.40 Active 620190546 Problem Allergic rhinitis J30.9 Active 94129622 Problem Anxiety associated with depression F41.8 Active 044743896 Problem Gastro-esophageal reflux disease without esophagitis K21.9 Active 099830072 Problem Emphysema, unspecified J43.9 Active 27823326 Problem Rheumatoid arthritis involving multiple sites with positive rheumatoid factor M05.79 Active 362797359 Problem Primary insomnia F51.01 Active 4732798 Problem Chronic pain G89.29 Active 36887030 Problem Periodontitis K05.30 Active 59910084 Problem Vitamin D deficiency E55.9 Active 50115195 Problem OAB (overactive bladder) N32.81 Active 777194461 Problem Dependence on nocturnal oxygen therapy Z99.81 Active [id number] ALLERGIES No Information ENCOUNTERS Encounter Location Date Diagnosis [facility] [address] [facility] [id number] [address] Oct, [facility] [address] [address] Aug, [facility] [id number] [place] [address] July, [facility] [id number] [place] [address] July, [facility] [id number] [place] [address] July, Chronic pain G89.29 [facility] [id number] [place] [address] July, [facility] [address] [place] [address] July, Onychomycosis B35.1 ; Hammer toe of left foot M20.42 and Type 2 diabetes mellitus with diabetic neuropathy, unspecified E11.40 [facility] [address] [address] July, [facility] [id number] [place] [address] July, Chronic pain G89.29 and Neuropathy G62.9 [facility] [address] [address] July, [facility] [address] [address] July, [facility] [address] [address] Jun, [facility] [id number] [address] Jun, Chronic pain G89.29 [facility] [address] [address] Jun, [facility] [address] [place] [address] Jun, [facility] [id number] [place] [address] Jun, Visit for TB skin test Z11.1 [facility] [address] [address] 16 Jun, 2017 [facility] [id number] [place] [address] Jun, [facility] [id number] [place] [address] Jun, Tobacco abuse Z72.0 and Rheumatoid arthritis involving multiple sites with positive rheumatoid factor M05.79 [facility] [id number] [place] [address] Jun, Anxiety F41.9 ; Acute non-recurrent maxillary sinusitis J01.00 and Chronic pain G89.29 [facility] [address] [place] [address] Jun, [facility] [id number] [place] [address] May, Rheumatoid arthritis involving multiple sites with positive rheumatoid factor M05.79 [facility] [address] [place] [address] May, Chronic pain G89.29 [facility] [address] [address] May, [facility] [address] [address] May, [facility] [id number] [place] [address] May, [facility] [address] [address] May, Type 2 diabetes mellitus with diabetic neuropathy, unspecified E11.40 [facility] [id number] [place] [address] May, Type 2 diabetes mellitus with diabetic [...] reflux disease without esophagitis K21.9 [facility] [id number] [place] [address] Apr, Chronic pain G89.29 [facility] [id number] [place] [address] 16 Apr, 2017 Other hammer toe(s) (acquired), left foot M20.42 ; Other hammer toe(s) (acquired), right foot M20.41 ; Type 2 diabetes mellitus with diabetic neuropathy, unspecified E11.40 and Onychomycosis B35.1 [facility] [id number] [place] [address] 2017 Gastro-esophageal reflux disease without esophagitis K21.9 [facility] [id number] [place] [address] Apr, Controlled substance agreement signed Z79.899 [facility] [id number] [place] [address] Mar, Chronic pain G89.29 [facility] [id number] [place] [address] Mar, Emphysema, unspecified J43.9 and Type 2 diabetes mellitus with diabetic neuropathy, unspecified E11.40 [facility] [id number] [place] [address] Mar, Dysuria R30.0 ; Vaginal candidiasis B37.3 and Acute nonintractable headache, unspecified headache type R51 [facility] [id number] [place] [address] Feb, Neuropathy G62.9 and Chronic pain G89.29 [facility] [id number] [place] [address] Feb, Gastro-esophageal reflux disease without esophagitis K21.9 [facility] [id number] [place] [address] Feb, [facility] [id number] [place] [address] Feb, Rheumatoid arthritis involving multiple sites with positive rheumatoid factor M05.79 and COPD with acute exacerbation J44.1 [facility] [id number] [place] [address] Feb, Vaginal odor N89.8 ; Vaginal irritation N89.8 ; Candidal dermatitis B37.2 and Screening breast examination Z12.31 [facility] [id number] [place] [address] Feb, [facility] [id number] [place] [address] Feb, [facility] [id number] [place] [address] Feb, [facility] [id number] [place] [address] Feb, COPD with exacerbation J44.1 ; Tobacco abuse counseling Z71.6 ; Tobacco abuse Z72.0 ; Rheumatoid arthritis involving multiple sites with positive rheumatoid factor M05.79 and Hyperlipemia E78.5 [facility] [id number] [place] [address] Feb, [facility] [address] [place] [id number] Jan, [facility] [id number] [place] [address] Jan, Chronic pain G89.29 [facility] [id number] [place] [id number] 27 Jan, 2017 Dental examination Z01.20 [facility] [id number] [place] [address] 19 Jan, 2017 Back pain of lumbar region with sciatica M54.40 [facility] [id number] [place] [address] 15 Jan, 2017 Acute bacterial conjunctivitis of both eyes H10.33 [facility] [id number] [place] [address] 02 Jan, 2017 Chronic pain G89.29 [facility] [id number] [place] [address] 31 Dec, 2016 Type 2 diabetes mellitus with diabetic neuropathy, unspecified E11.40 ; Hypertension I10 ; Hyperlipemia E78.5 ; Gastro-esophageal reflux disease without esophagitis K21.9 ; Anxiety associated with depression F41.8 ; Allergic rhinitis J30.9 ; Neuropathy G62.9 and Dependence on nocturnal oxygen therapy Z99.81 [facility] [id number] [place] [address] Dec, [facility] [id number] [place] [address] Dec, [facility] [id number] [address] 09 Dec, 2016 Encounter for immunization Z23 [facility] [id number] [place] [address] 05 Dec, 2016 Type 2 diabetes mellitus with diabetic neuropathy, unspecified E11.40 and Chronic pain G89.29 [facility] [id number] [place] [address] 11 Nov, 2016 Gastro-esophageal reflux disease without esophagitis K21.9 [facility] [id number] [place] [address] Nov, Peripheral edema R60.9 and Chest pain in adult R07.9 [facility] [id number] [place] [address] 07 Nov, 2016 Chronic pain G89.29 [facility] [id number] [place] [address] 31 Oct, 2016 [facility] [id number] [place] [address] Oct, [facility] [id number] [place] [address] 17 Oct, 2016 Rheumatoid arthritis with rheumatoid factor of right wrist without organ or systems involvement M05.731 [facility] [address] [address] 15 Oct, 2016 [facility] [id number] [place] [address] Oct, Acute exacerbation of chronic obstructive pulmonary disease (COPD) J44.1 and Canker sore K12.0 [facility] [id number] [place] [address] Oct, [facility] [id number] [place] [address] Oct, [facility] [id number] [place] [address] Oct, Chronic pain G89.29 [facility] [id number] [place] [id number] Oct, Dental examination Z01.20 [facility] [address] [place] [address] Oct, Dental examination Z01.20 and Periodontitis K05.30 [facility] [id number] [place] [id number] Oct, Dental examination Z01.20 [facility] [id number] [place] [address] Sep, Abscess L02.91 [facility] [address] [address] Sep, Dental examination Z01.20 [facility] [address] [place] [address] Sep, [facility] [address] [id number] Sep, Dental examination Z01.20 and Dental caries K02.9 [facility] [id number] [place] [address] Sep, Primary insomnia F51.01 and Anxiety associated with depression F41.8 [facility] [id number] [place] [address] Sep, Rheumatoid arthritis with rheumatoid factor of right wrist without organ or systems involvement M05.731 [facility] [id number] [address] Sep, Chronic pain G89.29 [facility] [id number] [place] [address] Sep, Type 2 diabetes mellitus with diabetic neuropathy, unspecified E11.40 ; Emphysema, unspecified J43.9 ; Gastro-esophageal reflux disease without esophagitis K21.9 ; Hypertension I10 ; Hyperlipemia E78.5 ; Anxiety associated with depression F41.8 ; Chronic pain G89.29 ; Vitamin D deficiency E55.9 and Primary insomnia F51.01 [facility] [address] [place] [address] 16 Aug, 2016 Anxiety associated with depression F41.8 [facility] [id number] [place] [address] Aug, Chronic pain G89.29 and Neuropathy G62.9 [facility] [address] [place] [address] Aug, Type 2 diabetes mellitus with diabetic neuropathy, unspecified E11.40 ; Rheumatoid arthritis involving multiple sites with positive rheumatoid factor M05.79 ; Vitamin D deficiency E55.9 ; Anxiety associated with depression F41.8 and Primary insomnia F51.01 [place] [facility] [address] [address] July, Emphysema, unspecified J43.9 [facility] [address] [address] July, Allergic rhinitis J30.9 [facility] [facility] [address] [address] July, Allergic rhinitis J30.9 ; Emphysema, unspecified J43.9 and Rheumatoid arthritis with rheumatoid factor of right wrist without organ or systems involvement M05.731 [facility] [facility] [address] [address] July, Neuropathy G62.9 and Chronic pain G89.29 [facility] [facility] [address] [address] July, Rheumatoid arthritis involving multiple sites with positive rheumatoid factor M05.79 [facility] [facility] [address] [address] Jun, [place] [facility] [address] [address] Jun, Neuropathy G62.9 and Chronic pain G89.29 [facility] [address] [address] May, Neuropathy G62.9 and Chronic pain G89.29 [facility] [id number] [place] [address] May, [facility] [address] [address] May, [facility] [id number] [place] [address] May, Type 2 diabetes mellitus with diabetic [...] with positive rheumatoid factor M05.732 [facility] [facility] [address] [address] 14 Apr, 2016 Chronic pain G89.29 [facility] [facility] [address] [address] Mar, Gastro-esophageal reflux disease without esophagitis K21.[address] [address] Mar, [address] [address] Mar, Rheumatoid arthritis with rheumatoid factor of right wrist without organ or systems involvement M05.731 [facility] [address] [address] Mar, Chronic pain G89.29 [facility] [facility] [address] [address] Feb, Hyperlipemia E78.5 [facility] [address] [address] Feb, Abnormal breath sounds R06.89 ; COPD with exacerbation J44.1 and Fatigue, unspecified type R53.[address] [address] Feb, Neuropathy G62.9 ; Abnormal lung sounds R09.89 and Bronchitis J40 [facility] [address] [address] Feb, Bronchitis J40 [facility] [address] [address] Feb, Chronic pain G89.29 [facility] [id number] [place] [address] Jan, Type 2 diabetes mellitus with diabetic neuropathy, unspecified E11.40 ; Rheumatoid arthritis with rheumatoid factor of right wrist without organ or systems involvement M05.731 and Hyperlipemia E78.5 [facility] [id number] [place] [address] Jan, Rheumatoid arthritis with rheumatoid factor of right wrist without organ or systems involvement M05.731 [facility] [id number] [place] [address] Jan, De Quervain's disease (radial styloid tenosynovitis) M65.4 ; Closed nondisplaced fracture of scaphoid of left wrist, unspecified portion of scaphoid, initial encounter S62.002A and Peripheral tear of medial meniscus of left knee, unspecified whether old or current tear, initial encounter S83.222A [facility] [address] [place] [address] Jan, Hypertension I10 ; Type 2 diabetes mellitus with diabetic neuropathy, unspecified E11.40 ; Hyperlipemia E78.5 ; Allergic rhinitis J30.9 ; Neuropathy G62.9 ; Rheumatoid arthritis with rheumatoid factor of right wrist without organ or systems involvement M05.731 ; Acute non-recurrent maxillary sinusitis J01.00 and Chronic pain G89.29 [facility] [address], [place] [address] Dec, [facility] [id number] [place] [address] Dec, [facility] [address] [place] [address] Dec, Type 2 diabetes mellitus with diabetic neuropathy, unspecified E11.40 ; Emphysema, unspecified J43.9 ; Gastro-esophageal reflux disease without esophagitis K21.9 ; Hypertension I10 ; Hyperlipemia E78.5 ; Rheumatoid arthritis with rheumatoid factor of right wrist without organ or systems involvement M05.731 ; Elevated white blood cell count, unspecified D72.829 ; Acute non- recurrent frontal sinusitis J01.10 and Chronic pain G89.29 [facility] [id number] [place] [address] Nov, [facility] [address] [address] Nov, Elevated white blood cell count, unspecified D72.829 ; Encounter for immunization Z23 ; Rheumatoid arthritis with rheumatoid factor of right wrist without organ or systems involvement M05.731 ; Injury of left hand S69.92XA ; Pain in left knee M25.562 and Other chronic pain G89.29 [place] [address] [address] Nov, [place] [address] [address] Nov, [place] [address] [address] Oct, [facility] [address] [address] Oct, Hyperlipemia E78.5 [facility] [facility] [address] [address] Oct, [place] [facility] [address] [address] Oct, Type 2 diabetes mellitus with diabetic neuropathy, unspecified E11.40 ; Neuropathy G62.9 ; Hypertension I10 ; Chronic pain G89.29 and Hyperlipemia E78.5 [facility] [address] [address] Oct, Emphysema, unspecified J43.9 and Rheumatoid arthritis of left wrist without organ or system involvement with positive rheumatoid factor M05.732 [facility] [id number] [place] [address] Sep, Chronic pain syndrome G89.4 [facility] [id number] [place] [address] Sep, [facility] [id number] [place] [address] Sep, [facility] [id number] [place] [address] Sep, Closed nondisplaced fracture of scaphoid of left wrist, unspecified portion of scaphoid, initial encounter S62.002A [facility] [id number] [place] [address] Sep, Type 2 diabetes mellitus with diabetic neuropathy, unspecified E11.40 ; Hypertension I10 ; Hyperlipemia E78.5 and Acute non-recurrent maxillary sinusitis J01.00 [facility] [id number] [place] [address] Sep, [facility] [id number] [place] [address] Sep, [facility] [id number] [place] [address] Sep, [facility] [id number] [place] [address] Sep, [facility] [id number] [place] [address] Aug, Epigastric pain R10.13 and Right upper quadrant pain R10.11 [facility] [id number] [place] [address] Aug, Closed nondisplaced fracture of scaphoid of left wrist, unspecified portion of scaphoid, initial encounter S62.002A [facility] [id number] [place] [address] Aug, [place] [id number] [place] [address] Aug, [facility] [id number] [place] [address] Aug, Shortness of breath R06.02 ; Epigastric pain R10.13 and Injury of left lower arm, initial encounter S59.912A [facility] [id number] [place] [address] Aug, 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, unspecified vessel or lesion type I25.119 ; Pulmonary emphysema, unspecified emphysema type J43.9 and Snoring R06.83 [facility] [id number] [place] [address] Aug, [facility] [place] [id number] [place] [address] Aug, Emphysema, unspecified J43.9 ; Atherosclerotic heart disease of lime coronary artery 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.10 and Hypertension I10 [facility] [id number] [place] [address] July, [place] [id number] [place] [address] July, Closed nondisplaced fracture of scaphoid of left wrist, unspecified portion of scaphoid, initial encounter S62.002A [place] [id number] [place] [address] July, [place] [id number] [place] [address] July, Type 2 diabetes mellitus with diabetic neuropathy, unspecified E11.40 ; Emphysema, unspecified J43.9 ; Atherosclerotic heart disease of lime coronary artery without angina pectoris I25.10 ; [...] agents L24.89 and Hospital discharge follow-up Z09 [facility] [id number] [place] [address] July, [facility] [id number] [place] [address] July, Type 2 diabetes mellitus with diabetic neuropathy, unspecified E11.40 [facility] [id number] [place] [id number] July, Type 2 diabetes mellitus with diabetic neuropathy, unspecified E11.40 and Rheumatoid arthritis of left wrist without organ or system involvement with positive rheumatoid factor M05.732 [facility] [id number] [place] [id number] July, [facility] [id number] [place] [id number] July, [facility] [id number] [place] [id number] Jun, [facility] [id number] [place] [phone] Jun, [facility] [id number] [place] [id number] Jun, 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 [facility] [id number] [place] [id number] Jun, [facility] [id number] [place] [id number] Jun, 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 [facility] [id number] [place] [phone] Jun, [facility] [id number] [place] [id number] Jun, [facility] [address] [address] Jun, Encounter for PPD test Z11.1 ; Rheumatoid arthritis with rheumatoid factor of right wrist without organ or systems involvement M05.731 and Rheumatoid arthritis of left wrist without organ or system involvement with positive rheumatoid factor M05.732 [place] [address] [address] Jun, Type 2 diabetes mellitus with diabetic neuropathy, unspecified E11.40 [place] [address] [address] May, Type 2 diabetes mellitus with diabetic neuropathy, unspecified E11.40 ; Emphysema, unspecified J43.9 ; Rheumatoid arthritis with rheumatoid factor of right wrist without organ or systems involvement M05.731 ; Rheumatoid arthritis of left wrist without organ or system involvement with positive rheumatoid factor M05.732 and Chronic pain G89.29 [place] [address] [address] May, [place] [address] [address] May, Swelling of hand joint M25.449 ; Ankle swelling M25.473 and Joint pain M25.50 [place] [address] [address] May, Emphysema, unspecified J43.9 [place] [address] [address] May, Gastroenteritis K52.9 and Hypertension I10 [place] [address] [address] Apr, [place] [address] [address] Apr, [place] [address] [address] Apr, [place] [address] [address] Apr, Type 2 diabetes mellitus with diabetic neuropathy, unspecified E11.40 ; Emphysema, unspecified J43.9 ; Atherosclerotic heart disease of lime coronary artery without angina pectoris I25.10 ; Migraine without aura, not intractable, with status migrainosus G43.001 ; Gastro-esophageal reflux disease without esophagitis K21.9 ; CAD (coronary artery disease) I25.10 ; Hypertension I10 ; Hyperlipemia E78.5 ; Allergic rhinitis J30.9 ; Neuropathy G62.9 ; Anxiety associated with depression F41.8 and Injury of left hand S69.92XA [address] [address] Apr, [address] [address] Apr, [address] [address] Apr, Type 2 diabetes mellitus with diabetic neuropathy, unspecified E11.40 ; Emphysema, unspecified J43.9 ; Essential (primary) hypertension I10 ; Atherosclerotic heart disease of lime coronary artery without angina pectoris I25.10 ; Gastro-esophageal reflux disease without esophagitis K21.9 ; CAD (coronary artery disease) I25.10 ; Hyperlipemia E78.5 ; Hypertension I10 ; History of solitary pulmonary nodule Z87.898 ; Allergic rhinitis J30.9 ; Chronic pain G89.29 and Depression with anxiety F41.8 [place] [id number] [id number] Mar, [address] [address] Mar, Allergic rhinitis J30.9 ; URI (upper respiratory infection) J06.9 and Other viral agents as the cause of diseases classified elsewhere B97.89 [facility] [id number] [place] [id number] Feb, Acute nasopharyngitis [common cold] J00 and Acute diarrhea R19.[id number] [place] [id number] Feb, Depression F32.9 [place] [address] [address] Jan, Otitis media, right H66.91 [place] [address] [address] Jan, [place] [address] [address] Jan, Type 2 diabetes mellitus with diabetic neuropathy, unspecified E11.40 [place] [address] [address] Jan, [place] [address] [address] Jan, Hyperlipemia E78.5 [place] [address] [address] Jan, Type 2 diabetes mellitus with diabetic neuropathy, unspecified E11.40 ; Emphysema, unspecified J43.9 ; CAD (coronary artery disease) I25.10 and Hyperlipemia E78.5 [place] [id number] [place] [id number] Dec, Allergic rhinitis J30.9 and Fungal infection B49 [place] [id number] [place] [address] Dec, [place] [address] [id number] [place] [address] Dec, [place] [address] [address] Dec, Chest pain R07.9 ; CAD (coronary artery disease) I25.10 ; Hypertension I10 and Hyperlipemia E78.5 [place] [id number] [place] [phone] 08 Dec, 2014 Pain in thoracic spine M54.6 ; Gastro-esophageal reflux disease without esophagitis K21.9 ; Emphysema, unspecified J43.9 and Migraine without aura, not intractable, with status migrainosus G43.001 [place] [id number] [place] [address] Dec, [place] [id number] [place] [phone] Nov, Influenza vaccine administered V04.81 [place] [address] [address] Nov, [place] [address] [address] Sep, [place] [address] [address] Sep, [place] [address] [address] Sep, CAD (coronary artery disease) 414.00 and Diabetes type 2, uncontrolled 250.02 [place] [address] [id number] [place] [address] Sep, CAD (coronary artery disease) 414.00 ; Diabetes type 2, uncontrolled 250.02 and Migraine 346.90 IMMUNIZATIONS No Known Immunizations SOCIAL HISTORY Never Assessed REASON FOR VISIT Controlled Med Refill 02/17 PLAN OF CARE VITAL SIGNS MEDICATIONS Medication Instructions Dosage Frequency Start Date End Date Duration Status Hydrocodone-Acetaminophen 7.5-325 MG Orally every 6 hours as needed 1 tablet as needed Jan, 28 days Active RESULTS No Results PROCEDURES [...] unspecified Medical History Atherosclerotic heart disease of lime coronary artery without angina pectoris Medical History [...]
--- OUTSIDE RECORDS SUMMARY | 2018-08-23 17:25 | XMS REPORT ---
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 Name Role Phone DELEONROB MoranELE Unavailable PROBLEMS Type Condition ICD9-CM Code UCL65-LP Code Onset Dates Condition Status SNOMED Code Problem Neuropathy G62.9 Active 774252986 Problem Other hammer toe(s) (acquired), right foot M20.41 Active 312241287 Problem Other hammer toe(s) (acquired), left foot M20.42 Active 72728953 Problem Anxiety F41.9 Active 42586761 Problem Type 2 diabetes mellitus with diabetic neuropathy, unspecified E11.40 Active 82021844 Problem Hammer toe of left foot M20.42 Active 864025292 Problem Hyperlipemia E78.5 Active 20075633 Problem Hypertension I10 Active 13302044 Problem COPD with exacerbation J44.1 Active 088910008457304 Problem Tobacco abuse Z72.0 Active 742321320 Problem COPD with acute exacerbation J44.1 Active 751252702 Problem Back pain of lumbar region with sciatica M54.40 Active 632322205 Problem Allergic rhinitis J30.9 Active 86214503 Problem Anxiety associated with depression F41.8 Active 704773817 Problem Gastro-esophageal reflux disease without esophagitis K21.9 Active 116709958 Problem Emphysema, unspecified J43.9 Active 45844462 Problem Rheumatoid arthritis involving multiple sites with positive rheumatoid factor M05.79 Active 956493730 Problem Primary insomnia F51.01 Active 3123086 Problem Chronic pain G89.29 Active 62719473 Problem Periodontitis K05.30 Active 67555799 Problem Vitamin D deficiency E55.9 Active 69423401 Problem OAB (overactive bladder) N32.81 Active 712579588 Problem Dependence on nocturnal oxygen therapy Z99.81 Active [id number] ALLERGIES No Information ENCOUNTERS Encounter Location Date Diagnosis [facility] [address] [facility] [id number] [address] Oct, [facility] [address], [place] [address] Aug, [facility] [address] [place] [address] July, [facility] [id number] [place] [address] July, [facility] [id number] [place] [address] July, Chronic pain G89.29 [facility] [id number] [place] [address] July, [facility] [address] [place] [address] July, Onychomycosis B35.1 ; Hammer toe of left foot M20.42 and Type 2 diabetes mellitus with diabetic neuropathy, unspecified E11.40 [facility] [address], [place] [address] July, [facility] [id number] [place] [address] July, Chronic pain G89.29 and Neuropathy G62.9 [facility] [address], [place] [address] July, [facility] [address], [place] [address] July, [facility] [address], [place] [address] Jun, [facility] [id number] [address] Jun, Chronic pain G89.29 [facility] [address], [place] [address] Jun, [facility] [address] [place] [address] Jun, [facility] [id number] [place] [address] Jun, Visit for TB skin test Z11.1 [facility] [address], [place] [address] 16 Jun, 2017 [facility] [id number] [place] [address] Jun, [facility] [id number] [place] [address] Jun, Tobacco abuse Z72.0 and Rheumatoid arthritis involving multiple sites with positive rheumatoid factor M05.79 [facility] [id number] [place] [address] Jun, Anxiety F41.9 ; Acute non-recurrent maxillary sinusitis J01.00 and Chronic pain G89.29 [facility] [address] [place] [address] Jun, [facility] [id number] [place] [address] May, Rheumatoid arthritis involving multiple sites with positive rheumatoid factor M05.79 [facility] [address] [place] [address] May, Chronic pain G89.29 [facility] [address], [place] [address] May, [facility] [address], [place] [address] May, [facility] [id number] [place] [address] May, [facility] [address], [place] [address] May, Type 2 diabetes mellitus with diabetic neuropathy, unspecified E11.40 [facility] [id number] [place] [address] May, Type 2 diabetes mellitus with diabetic neuropathy, unspecified E11.40 ; Emphysema, unspecified J43.9 ; Hypertension I10 ; Hyperlipemia E78.5 ; Vitamin D deficiency E55.9 ; Right medial knee pain M25.561 ; Controlled substance agreement signed Z79.899 ; Chronic pain G89.29 ; Allergic rhinitis J30.9 ; Anxiety associated with depression F41.8 ; Neuropathy G62.9 and Gastro- esophageal reflux disease without esophagitis K21.9 [facility] [id number] [place] [address] Apr, Chronic pain G89.29 [facility] [id number] [place] [address] 16 Apr, 2017 Other hammer toe(s) (acquired), left foot M20.42 ; Other hammer toe(s) (acquired), right foot M20.41 ; Type 2 diabetes mellitus with diabetic neuropathy, unspecified E11.40 and Onychomycosis B35.1 [facility] [id number] [place] [address] 2017 Gastro-esophageal reflux disease without esophagitis K21.9 [facility] [id number] [place] [address] Apr, Controlled substance agreement signed Z79.899 [facility] [id number] [place] [address] Mar, Chronic pain G89.29 [facility] [id number] [place] [address] Mar, Emphysema, unspecified J43.9 and Type 2 diabetes mellitus with diabetic neuropathy, unspecified E11.40 [facility] [id number] [place] [address] Mar, Dysuria R30.0 ; Vaginal candidiasis B37.3 and Acute nonintractable headache, unspecified headache type R51 [facility] [id number] [place] [address] Feb, Neuropathy G62.9 and Chronic pain G89.29 [facility] [id number] [place] [address] Feb, Gastro-esophageal reflux disease without esophagitis K21.9 [facility] [id number] [place] [address] Feb, [facility] [id number] [place] [address] Feb, Rheumatoid arthritis involving multiple sites with positive rheumatoid factor M05.79 and COPD with acute exacerbation J44.1 [facility] [id number] [place] [address] Feb, Vaginal odor N89.8 ; Vaginal irritation N89.8 ; Candidal dermatitis B37.2 and Screening breast examination Z12.31 [facility] [id number] [place] [address] Feb, [facility] [id number] [place] [address] Feb, [facility] [id number] [place] [address] Feb, [facility] [id number] [place] [address] Feb, COPD with exacerbation J44.1 ; Tobacco abuse counseling Z71.6 ; Tobacco abuse Z72.0 ; Rheumatoid arthritis involving multiple sites with positive rheumatoid factor M05.79 and Hyperlipemia E78.5 [facility] [id number] [place] [address] Feb, [facility] [address] [place] [id number] Jan, [facility] [id number] [place] [address] Jan, Chronic pain G89.29 [facility] [id number] [place] [id number] 27 Jan, 2017 Dental examination Z01.20 [facility] [id number] [place] [address] 19 Jan, 2017 Back pain of lumbar region with sciatica M54.40 [facility] [id number] [place] [address] 15 Jan, 2017 Acute bacterial conjunctivitis of both eyes H10.33 [facility] [id number] [place] [address] 02 Jan, 2017 Chronic pain G89.29 [facility] [id number] [place] [address] 31 Dec, 2016 Type 2 diabetes mellitus with diabetic neuropathy, unspecified E11.40 ; Hypertension I10 ; Hyperlipemia E78.5 ; Gastro-esophageal reflux disease without esophagitis K21.9 ; Anxiety associated with depression F41.8 ; Allergic rhinitis J30.9 ; Neuropathy G62.9 and Dependence on nocturnal oxygen therapy Z99.81 [facility] [id number] [place] [address] Dec, [facility] [id number] [place] [address] Dec, [facility] [id number] [place] [address] 09 Dec, 2016 Encounter for immunization Z23 [facility] [id number] [place] [address] 05 Dec, 2016 Type 2 diabetes mellitus with diabetic neuropathy, unspecified E11.40 and Chronic pain G89.29 [facility] [id number] [place] [address] 11 Nov, 2016 Gastro-esophageal reflux disease without esophagitis K21.9 [facility] [id number] [place] [address] Nov, Peripheral edema R60.9 and Chest pain in adult R07.9 [facility] [id number] [place] [address] 07 Nov, 2016 Chronic pain G89.29 [facility] [id number] [place] [address] 31 Oct, 2016 [facility] [id number] [place] [address] Oct, [facility] [id number] [place] [address] 17 Oct, 2016 Rheumatoid arthritis with rheumatoid factor of right wrist without organ or systems involvement M05.731 [facility] [address] [address] 15 Oct, 2016 [facility] [id number] [place] [address] Oct, Acute exacerbation of chronic obstructive pulmonary disease (COPD) J44.1 and Canker sore K12.0 [facility] [id number] [place] [address] Oct, [facility] [id number] [place] [address] Oct, [facility] [id number] [place] [address] Oct, Chronic pain G89.29 [facility] [id number] [place] [id number] Oct, Dental examination Z01.20 [facility] [address] [place] [address] Oct, Dental examination Z01.20 and Periodontitis K05.30 [facility] [id number] [place] [phone] Oct, Dental examination Z01.20 [facility] [id number] [place] [address] Sep, Abscess L02.91 [facility] [address], [place] [address] Sep, Dental examination Z01.20 [facility] [address] [place] [address] Sep, [facility] [address] [id number] Sep, Dental examination Z01.20 and Dental caries K02.9 [facility] [id number] [place] [address] Sep, Primary insomnia F51.01 and Anxiety associated with depression F41.8 [facility] [address] [place] [address] Sep, Rheumatoid arthritis with rheumatoid factor of right wrist without organ or systems involvement M05.731 [facility] [id number] [place] [address] Sep, Chronic pain G89.29 [facility] [id number] [place] [address] Sep, Type 2 diabetes mellitus with diabetic neuropathy, unspecified E11.40 ; Emphysema, unspecified J43.9 ; Gastro-esophageal reflux disease without esophagitis K21.9 ; Hypertension I10 ; Hyperlipemia E78.5 ; Anxiety associated with depression F41.8 ; Chronic pain G89.29 ; Vitamin D deficiency E55.9 and Primary insomnia F51.01 [facility] [address] [place] [address] 16 Aug, 2016 Anxiety associated with depression F41.8 [facility] [id number] [place] [address] Aug, Chronic pain G89.29 and Neuropathy G62.9 [facility] [address] [place] [address] Aug, Type 2 diabetes mellitus with diabetic neuropathy, unspecified E11.40 ; Rheumatoid arthritis involving multiple sites with positive rheumatoid factor M05.79 ; Vitamin D deficiency E55.9 ; Anxiety associated with depression F41.8 and Primary insomnia F51.01 [facility] [address] [address] July, Emphysema, unspecified J43.9 [facility] [address] [address] July, Allergic rhinitis J30.9 [facility] [address] [address] July, Allergic rhinitis J30.9 ; Emphysema, unspecified J43.9 and Rheumatoid arthritis with rheumatoid factor of right wrist without organ or systems involvement M05.731 [facility] [address] [address] July, Neuropathy G62.9 and Chronic pain G89.29 [facility] [address] [address] July, Rheumatoid arthritis involving multiple sites with positive rheumatoid factor M05.79 [facility] [address] [address] Jun, [facility] [address] [address] Jun, Neuropathy G62.9 and Chronic pain G89.29 [facility] [address] [address] May, Neuropathy G62.9 and Chronic pain G89.29 [facility] [id number] [place] [address] May, [facility] [address] [address] May, [facility] [id number] [place] [address] May, Type 2 diabetes mellitus with diabetic [...] system involvement with positive rheumatoid factor M05.732 [facility] [address] [address] 14 Apr, 2016 Chronic pain G89.29 [facility] [address] [address] Mar, Gastro-esophageal reflux disease without esophagitis K21.[address] [address] Mar, [address] [address] Mar, Rheumatoid arthritis with rheumatoid factor of right wrist without organ or systems involvement M05.731 [facility] [address] [address] Mar, Chronic pain G89.29 [facility] [address] [address] Feb, Hyperlipemia E78.5 [facility] [address] [address] Feb, Abnormal breath sounds R06.89 ; COPD with exacerbation J44.1 and Fatigue, unspecified type R53.[address] [address] Feb, Neuropathy G62.9 ; Abnormal lung sounds R09.89 and Bronchitis J40 [facility] [address] [address] Feb, Bronchitis J40 [facility] [address], [place] [address] Feb, Chronic pain G89.29 [facility] [id number] [place] [address] Jan, Type 2 diabetes mellitus with diabetic neuropathy, unspecified E11.40 ; Rheumatoid arthritis with rheumatoid factor of right wrist without organ or systems involvement M05.731 and Hyperlipemia E78.5 [facility] [address] [place] [address] Jan, Rheumatoid arthritis with rheumatoid factor of right wrist without organ or systems involvement M05.731 [facility] [address] [place] [address] Jan, De Quervain's disease (radial styloid tenosynovitis) M65.4 ; Closed nondisplaced fracture of scaphoid of left wrist, unspecified portion of scaphoid, initial encounter S62.002A and Peripheral tear of medial meniscus of left knee, unspecified whether old or current tear, initial encounter S83.222A [facility] [address] [place] [address] Jan, Hypertension I10 ; Type 2 diabetes mellitus with diabetic neuropathy, unspecified E11.40 ; Hyperlipemia E78.5 ; Allergic rhinitis J30.9 ; Neuropathy G62.9 ; Rheumatoid arthritis with rheumatoid factor of right wrist without organ or systems involvement M05.731 ; Acute non-recurrent maxillary sinusitis J01.00 and Chronic pain G89.29 [facility] [address], [place] [address] Dec, [facility] [id number] [place] [address] Dec, [facility] [address] [place] [address] Dec, Type 2 diabetes mellitus with diabetic neuropathy, unspecified E11.40 ; Emphysema, unspecified J43.9 ; Gastro-esophageal reflux disease without esophagitis K21.9 ; Hypertension I10 ; Hyperlipemia E78.5 ; Rheumatoid arthritis with rheumatoid factor of right wrist without organ or systems involvement M05.731 ; Elevated white blood cell count, unspecified D72.829 ; Acute non- recurrent frontal sinusitis J01.10 and Chronic pain G89.29 [facility] [address] [place] [address] Nov, [facility] [address] [address] Nov, Elevated white blood cell count, unspecified D72.829 ; Encounter for immunization Z23 ; Rheumatoid arthritis with rheumatoid factor of right wrist without organ or systems involvement M05.731 ; Injury of left hand S69.92XA ; Pain in left knee M25.562 and Other chronic pain G89.29 [facility] [address] [address] Nov, [facility] [address] [address] Nov, [facility] [address] [address] Oct, [facility] [address] [address] Oct, Hyperlipemia E78.5 [facility] [address] [address] Oct, [facility] [address] [address] Oct, Type 2 diabetes mellitus with diabetic neuropathy, unspecified E11.40 ; Neuropathy G62.9 ; Hypertension I10 ; Chronic pain G89.29 and Hyperlipemia E78.5 [facility] [address] [address] Oct, Emphysema, unspecified J43.9 and Rheumatoid arthritis of left wrist without organ or system involvement with positive rheumatoid factor M05.732 [facility] [address] [place] [address] Sep, Chronic pain syndrome G89.4 [facility] [id number] [place] [address] Sep, [facility] [id number] [place] [address] Sep, [facility] [id number] [place] [address] Sep, Closed nondisplaced fracture of scaphoid of left wrist, unspecified portion of scaphoid, initial encounter S62.002A [facility] [address] [place] [address] Sep, Type 2 diabetes mellitus with diabetic neuropathy, unspecified E11.40 ; Hypertension I10 ; Hyperlipemia E78.5 and Acute non-recurrent maxillary sinusitis J01.00 [facility] [id number] [place] [address] Sep, [facility] [id number] [place] [address] Sep, [facility] [address] [place] [address] Sep, [facility] [id number] [place] [address] Sep, [facility] [address] [place] [address] Aug, Epigastric pain R10.13 and Right upper quadrant pain R10.11 [facility] [address] [place] [address] Aug, Closed nondisplaced fracture of scaphoid of left wrist, unspecified portion of scaphoid, initial encounter S62.002A [facility] [id number] [place] [address] Aug, [facility] [address] [place] [address] Aug, [facility] [id number] [place] [address] Aug, Shortness of breath R06.02 ; Epigastric pain R10.13 and Injury of left lower arm, initial encounter S59.912A [facility] [address] [place] [address] Aug, Coronary artery disease involving lummi heart with angina pectoris, unspecified vessel or lesion type I25.119 ; Pulmonary emphysema, unspecified emphysema type J43.9 and Snoring R06.83 [facility] [id number] [place] [address] Aug, [facility] [id number] [place] [address] Aug, Emphysema, unspecified J43.9 ; 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.10 and Hypertension I10 [facility] [id number] [place] [address] July, [facility] [id number] [place] [address] July, Closed nondisplaced fracture of scaphoid of left wrist, unspecified portion of scaphoid, initial encounter S62.002A [facility] [address] [place] [address] July, [facility] [address] [place] [address] July, Type 2 diabetes mellitus with diabetic neuropathy, unspecified E11.40 ; Emphysema, unspecified J43.9 ; 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.10 ; [...] agents L24.89 and Hospital discharge follow-up Z09 [facility] [id number] [place] [address] July, [facility] [id number] [place] [address] July, Type 2 diabetes mellitus with diabetic neuropathy, unspecified E11.40 [facility] [id number] [place] [address] July, Type 2 diabetes mellitus with diabetic neuropathy, unspecified E11.40 and Rheumatoid arthritis of left wrist without organ or system involvement with positive rheumatoid factor M05.732 [facility] [id number] [place] [address] July, [facility] [id number] [place] [phone] July, [facility] [id number] [place] [id number] Jun, [facility] [id number] [place] [phone] Jun, [facility] [id number] [place] [phone] Jun, 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 [facility] [id number] [place] [id number] Jun, [facility] [id number] [place] [phone] Jun, 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 [facility] [id number] [place] [phone] Jun, [facility] [id number] [place] [phone] Jun, [facility] [address] [id number] Jun, Encounter for PPD test Z11.1 ; Rheumatoid arthritis with rheumatoid factor of right wrist without organ or systems involvement M05.731 and Rheumatoid arthritis of left wrist without organ or system involvement with positive rheumatoid factor M05.732 [place] [address] [address] Jun, Type 2 diabetes mellitus with diabetic neuropathy, unspecified E11.40 [place] [address] [address] May, Type 2 diabetes mellitus with diabetic neuropathy, unspecified E11.40 ; Emphysema, unspecified J43.9 ; Rheumatoid arthritis with rheumatoid factor of right wrist without organ or systems involvement M05.731 ; Rheumatoid arthritis of left wrist without organ or system involvement with positive rheumatoid factor M05.732 and Chronic pain G89.29 [place] [address] [address] May, [place] [address] [address] May, Swelling of hand joint M25.449 ; Ankle swelling M25.473 and Joint pain M25.50 [place] [address] [address] May, Emphysema, unspecified J43.9 [place] [address] [address] May, Hypertension I10 and Gastroenteritis K52.9 [place] [address] [address] Apr, [place] [address] [address] Apr, [place] [address] [address] Apr, [place] [address] [address] Apr, Type 2 diabetes mellitus with diabetic neuropathy, unspecified E11.40 ; Emphysema, unspecified J43.9 ; 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.10 ; Migraine without aura, not intractable, with status migrainosus G43.001 ; Gastro-esophageal reflux disease without esophagitis K21.9 ; CAD (coronary artery disease) I25.10 ; Hypertension I10 ; Hyperlipemia E78.5 ; Allergic rhinitis J30.9 ; Neuropathy G62.9 ; Anxiety associated with depression F41.8 and Injury of left hand S69.92XA [address] [address] Apr, [address] [address] Apr, [address] [address] Apr, Type 2 diabetes mellitus with diabetic neuropathy, unspecified E11.40 ; Emphysema, unspecified J43.9 ; Essential (primary) hypertension I10 ; 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.10 ; Gastro-esophageal reflux disease without esophagitis K21.9 ; CAD (coronary artery disease) I25.10 ; Hyperlipemia E78.5 ; Hypertension I10 ; History of solitary pulmonary nodule Z87.898 ; Allergic rhinitis J30.9 ; Chronic pain G89.29 and Depression with anxiety F41.8 [place] [address] [address] [place] [id number] [place] [address] Mar, [address] [address] Mar, Allergic rhinitis J30.9 ; URI (upper respiratory infection) J06.9 and Other viral agents as the cause of diseases classified elsewhere B97.89 [facility] [address] [place] [id number] [place] [address] Feb, Acute nasopharyngitis [common cold] J00 and Acute diarrhea R19.[id number] [place] [address] Feb, Depression F32.9 [place] [address] [address] Jan, Otitis media, right H66.91 [place] [address] [address] Jan, [place] [address] [address] Jan, Type 2 diabetes mellitus with diabetic neuropathy, unspecified E11.40 [place] [address] [address] Jan, [place] [address] [address] Jan, Hyperlipemia E78.5 [place] [address] [address] Jan, Type 2 diabetes mellitus with diabetic neuropathy, unspecified E11.40 ; Emphysema, unspecified J43.9 ; CAD (coronary artery disease) I25.10 and Hyperlipemia E78.5 [place] [address] [place] [id number] [place] [address] Dec, Allergic rhinitis J30.9 and Fungal infection B49 [place] [address] [place] [id number] [place] [address] Dec, [place] [address] [place] [id number] [place] [address] Dec, [place] [address] [address] Dec, Chest pain R07.9 ; CAD (coronary artery disease) I25.10 ; Hypertension I10 and Hyperlipemia E78.5 [place] [address] [place] [id number] [place] [address] 08 Dec, 2014 Pain in thoracic spine M54.6 ; Gastro-esophageal reflux disease without esophagitis K21.9 ; Emphysema, unspecified J43.9 and Migraine without aura, not intractable, with status migrainosus G43.001 [place] [address] [place] [id number] [place] [address] Dec, [place] [address] [place] [id number] [place] [address] Nov, Influenza vaccine administered V04.81 [place] [address] [address] Nov, [place] [address] [address] Sep, [place] [address] [address] Sep, [place] [address] [address] Sep, CAD (coronary artery disease) 414.00 and Diabetes type 2, uncontrolled 250.02 [place] [address] [place] [id number] [place] [address] Sep, CAD (coronary artery disease) 414.00 ; Diabetes type 2, uncontrolled 250.02 and Migraine 346.90 IMMUNIZATIONS No Known Immunizations SOCIAL HISTORY Never Assessed REASON FOR VISIT Returned call PLAN OF CARE VITAL SIGNS MEDICATIONS [...] unspecified Medical History Atherosclerotic heart disease of lummi coronary artery without angina pectoris Medical History [...]
--- OUTSIDE RECORDS SUMMARY | 2018-08-23 17:27 | XMS REPORT ---
Author Author PANCHOROBCLAU Organization [facility] Address [address] [place] [address] Care Team Providers Care Plant Wire Chief Name Role Phone DELEONCLAU Moran Unavailable PROBLEMS Type Condition ICD9-CM Code QPT85-ZF Code Onset Dates Condition Status SNOMED Code Problem Dependence on nocturnal oxygen therapy Z99.81 Active 94941085442501 Problem Other hammer toe(s) (acquired), left foot M20.42 Active 90396919 Problem Neuropathy G62.9 Active 099447010 Problem Anxiety F41.9 Active 63567134 Problem Hyperlipemia E78.5 Active 11997098 Problem COPD with acute exacerbation J44.1 Active 704798709 Problem Hypertension I10 Active 51735497 Problem Vitamin D deficiency E55.9 Active 41098497 Problem Tobacco abuse Z72.0 Active 872761672 Problem Other hammer toe(s) (acquired), right foot M20.41 Active 108459042 Problem Back pain of lumbar region with sciatica M54.40 Active 413044319 Problem COPD with exacerbation J44.1 Active 545552300952473 Problem Emphysema, unspecified J43.9 Active 41282859 Problem Allergic rhinitis J30.9 Active 84691733 Problem Type 2 diabetes mellitus with diabetic neuropathy, unspecified E11.40 Active 69590039 Problem Gastro-esophageal reflux disease without esophagitis K21.9 Active 446126833 Problem OAB (overactive bladder) N32.81 Active 144659840 Problem Rheumatoid arthritis involving multiple sites with positive rheumatoid factor M05.79 Active 477487648 Problem Anxiety associated with depression F41.8 Active 197749597 Problem Primary insomnia F51.01 Active 9211967 Problem Chronic pain G89.29 Active 17907197 Problem Periodontitis K05.30 Active 98187002 ALLERGIES No Information ENCOUNTERS Encounter Location Date Diagnosis [facility] [address] [facility] [id number] [address] July, [facility] [address] [address] Jun, Chronic pain G89.29 [facility] [id number] [place] [address] Jun, [facility] [address] [address] Jun, [facility] [id number] [place] [address] Jun, Visit for TB skin test Z11.1 [facility] [id number] [place] [address] 16 Jun, 2017 [facility] [id number] [place] [address] Jun, [facility] [id number] [place] [address] Jun, Tobacco abuse Z72.0 and Rheumatoid arthritis involving multiple sites with positive rheumatoid factor M05.79 [facility] [address] [place] [address] Jun, Anxiety F41.9 ; Acute non-recurrent maxillary sinusitis J01.00 and Chronic pain G89.29 [facility] [address], [place] [address] Jun, [facility] [address] [address] May, Rheumatoid arthritis involving multiple sites with positive rheumatoid factor M05.79 [facility] [address], [place] [address] May, Chronic pain G89.29 [facility] [address], [place] [address] May, [facility] [address] [address] May, [facility] [address] [place] [address] May, [place] [id number] [place] [address] May, Type 2 diabetes mellitus with diabetic neuropathy, unspecified E11.40 [facility] [id number] [place] [address] May, Type 2 diabetes mellitus with diabetic neuropathy, unspecified E11.40 ; Emphysema, unspecified J43.9 ; Hypertension I10 ; Hyperlipemia E78.5 ; Vitamin D deficiency E55.9 ; Right medial knee pain M25.561 ; Controlled substance agreement signed Z79.899 ; Chronic pain G89.29 ; Allergic rhinitis J30.9 ; Anxiety associated with depression F41.8 ; Neuropathy G62.9 and Gastro- esophageal reflux disease without esophagitis K21.9 [facility] [place] [id number] [place] [address] Apr, Chronic pain G89.29 [facility] [place] [id number] [place] [address] 16 Apr, 2017 Other hammer toe(s) (acquired), left foot M20.42 ; Other hammer toe(s) (acquired), right foot M20.41 ; Type 2 diabetes mellitus with diabetic neuropathy, unspecified E11.40 and Onychomycosis B35.1 [place] [id number] [place] [address] 2017 Gastro-esophageal reflux disease without esophagitis K21.9 [facility] [place] [id number] [place] [address] Apr, Controlled substance agreement signed Z79.899 [place] [id number] [place] [address] Mar, Chronic pain G89.29 [place] [id number] [place] [address] Mar, Emphysema, unspecified J43.9 and Type 2 diabetes mellitus with diabetic neuropathy, unspecified E11.40 [facility] [id number] [place] [address] Mar, Dysuria R30.0 ; Vaginal candidiasis B37.3 and Acute nonintractable headache, unspecified headache type R51 [facility] [id number] [place] [address] Feb, Neuropathy G62.9 and Chronic pain G89.29 [place] [address] [address] Feb, Gastro-esophageal reflux disease without esophagitis K21.9 [place] [address] [address] Feb, [place] [address] [address] Feb, Rheumatoid arthritis involving multiple sites with positive rheumatoid factor M05.79 and COPD with acute exacerbation J44.1 [facility] [id number] [place] [address] 08 Feb, 2017 Vaginal odor N89.8 ; Vaginal irritation N89.8 ; Candidal dermatitis B37.2 and Screening breast examination Z12.31 [place] [id number] [place] [address] 06 Feb, 2017 [place] [id number] [place] [address] Feb, [place] [id number] [place] [address] Feb, [place] [address] [address] Feb, COPD with exacerbation J44.1 ; Tobacco abuse counseling Z71.6 ; Tobacco abuse Z72.0 ; Rheumatoid arthritis involving multiple sites with positive rheumatoid factor M05.79 and Hyperlipemia E78.5 [place] [address] [address] Feb, [facility] [address] [place] [id number] Jan, [facility] [id number] [place] [address] Jan, Chronic pain G89.29 [facility] [address] [place] [id number] Jan, Dental examination Z01.20 [facility] [id number] [place] [address] Jan, Back pain of lumbar region with sciatica M54.40 [facility] [id number] [place] [address] Jan, Acute bacterial conjunctivitis of both eyes H10.33 [place] [id number] [place] [address] Jan, Chronic pain G89.29 [facility] [place] [id number] [place] [address] Dec, Type 2 diabetes mellitus with diabetic neuropathy, unspecified E11.40 ; Hypertension I10 ; Hyperlipemia E78.5 ; Gastro-esophageal reflux disease without esophagitis K21.9 ; Anxiety associated with depression F41.8 ; Allergic rhinitis J30.9 ; Neuropathy G62.9 and Dependence on nocturnal oxygen therapy Z99.81 [place] [id number] [place] [address] Dec, [facility] [place] [id number] [place] [address] Dec, [facility] [place] [id number] [place] [address] Dec, Encounter for immunization Z23 [place] [id number] [place] [address] 05 Dec, 2016 Type 2 diabetes mellitus with diabetic neuropathy, unspecified E11.40 and Chronic pain G89.29 [facility] [id number] [place] [address] 11 Nov, 2016 Gastro-esophageal reflux disease without esophagitis K21.9 [facility] [id number] [place] [address] 11 Nov, 2016 Peripheral edema R60.9 and Chest pain in adult R07.9 [facility] [id number] [place] [address] 07 Nov, 2016 Chronic pain G89.29 [facility] [id number] [place] [address] 31 Oct, 2016 [facility] [address] [address] 30 Oct, 2016 [facility] [id number] [place] [address] 17 Oct, 2016 Rheumatoid arthritis with rheumatoid factor of right wrist without organ or systems involvement M05.731 [facility] [id number] [place] [address] 15 Oct, 2016 [facility] [id number] [place] [address] 14 Oct, 2016 Acute exacerbation of chronic obstructive pulmonary disease (COPD) J44.1 and Canker sore K12.0 [facility] [id number] [place] [address] 14 Oct, 2016 [facility] [id number] [place] [address] 10 Oct, 2016 [facility] [id number] [place] [address] 09 Oct, 2016 Chronic pain G89.29 [facility] [id number] [place] [id number] 08 Oct, 2016 Dental examination Z01.20 [facility] [id number] [place] [address] Oct, Dental examination Z01.20 and Periodontitis K05.30 [facility] [address] [place] [id number] Oct, Dental examination Z01.20 [facility] [address] [place] [address] Sep, Abscess L02.91 [facility] [id number] [place] [address] Sep, Dental examination Z01.20 [facility] [id number] [place] [address] Sep, [facility] [id number] [place] [phone] Sep, Dental examination Z01.20 and Dental caries K02.9 [facility] [id number] [place] [address] Sep, Primary insomnia F51.01 and Anxiety associated with depression F41.8 [facility] [id number] [place] [address] Sep, Rheumatoid arthritis with rheumatoid factor of right wrist without organ or systems involvement M05.731 [place] [id number] [place] [address] Sep, Chronic pain G89.29 [place] [id number] [place] [address] Sep, Type 2 diabetes mellitus with diabetic neuropathy, unspecified E11.40 ; Emphysema, unspecified J43.9 ; Gastro-esophageal reflux disease without esophagitis K21.9 ; Hypertension I10 ; Hyperlipemia E78.5 ; Anxiety associated with depression F41.8 ; Chronic pain G89.29 ; Vitamin D deficiency E55.9 and Primary insomnia F51.01 [facility] [place] [id number] [place] [address] Aug, Anxiety associated with depression F41.8 [facility] [id number] [place] [address] Aug, Chronic pain G89.29 and Neuropathy G62.9 [place] [address] [address] Aug, Type 2 diabetes mellitus with diabetic neuropathy, unspecified E11.40 ; Rheumatoid arthritis involving multiple sites with positive rheumatoid factor M05.79 ; Vitamin D deficiency E55.9 ; Anxiety associated with depression F41.8 and Primary insomnia F51.01 [place] [address] [address] July, Emphysema, unspecified J43.9 [place] [address] [address] July, Allergic rhinitis J30.9 [place] [address] [address] July, Allergic rhinitis J30.9 ; Emphysema, unspecified J43.9 and Rheumatoid arthritis with rheumatoid factor of right wrist without organ or systems involvement M05.731 [facility] [place] [id number] [place] [address] July, Neuropathy G62.9 and Chronic pain G89.29 [facility] [place] [id number] [place] [address] July, Rheumatoid arthritis involving multiple sites with positive rheumatoid factor M05.79 [facility] [place] [id number] [place] [address] Jun, [facility] [place] [id number] [place] [address] Jun, Neuropathy G62.9 and Chronic pain G89.29 [facility] [id number] [place] [address] May, Neuropathy G62.9 and Chronic pain G89.29 [facility] [place] [id number] [place] [address] May, [place] [id number] [place] [address] May, [address] [address] May, Type 2 diabetes mellitus with diabetic [...] system involvement with positive rheumatoid factor M05.[address] [address] Apr, Chronic pain G89.[address] [address] Mar, Gastro-esophageal reflux disease without esophagitis K21.[address] [address] Mar, [address] [address] Mar, Rheumatoid arthritis with rheumatoid factor of right wrist without organ or systems involvement M05.731 [address] [id number] [place] [address] Mar, Chronic pain G89.[address] [address] Feb, Hyperlipemia E78.[address] [address] Feb, Abnormal breath sounds R06.89 ; COPD with exacerbation J44.1 and Fatigue, unspecified type R53.[id number] [place] [address] Feb, Neuropathy G62.9 ; Abnormal lung sounds R09.89 and Bronchitis J40 [facility] [id number] [place] [address] Feb, Bronchitis J40 [facility] [id number] [place] [address] Feb, Chronic pain G89.29 [place] [address] [address] Jan, Type 2 diabetes mellitus with diabetic neuropathy, unspecified E11.40 ; Rheumatoid arthritis with rheumatoid factor of right wrist without organ or systems involvement M05.731 and Hyperlipemia E78.5 [place] [address] [address] Jan, Rheumatoid arthritis with rheumatoid factor of right wrist without organ or systems involvement M05.731 [place] [id number] [place] [address] Jan, De Quervain's disease (radial styloid tenosynovitis) M65.4 ; Closed nondisplaced fracture of scaphoid of left wrist, unspecified portion of scaphoid, initial encounter S62.002A and Peripheral tear of medial meniscus of left knee, unspecified whether old or current tear, initial encounter S83.222A [facility] [place] [id number] [place] [address] Jan, Hypertension I10 ; Type 2 diabetes mellitus with diabetic neuropathy, unspecified E11.40 ; Hyperlipemia E78.5 ; Allergic rhinitis J30.9 ; Neuropathy G62.9 ; Rheumatoid arthritis with rheumatoid factor of right wrist without organ or systems involvement M05.731 ; Acute non-recurrent maxillary sinusitis J01.00 and Chronic pain G89.29 [facility] [place] [id number] [place] [address] Dec, [place] [address] [place] [address] Dec, [place] [address] [address] Dec, Type 2 diabetes mellitus with diabetic neuropathy, unspecified E11.40 ; Emphysema, unspecified J43.9 ; Gastro-esophageal reflux disease without esophagitis K21.9 ; Hypertension I10 ; Hyperlipemia E78.5 ; Rheumatoid arthritis with rheumatoid factor of right wrist without organ or systems involvement M05.731 ; Elevated white blood cell count, unspecified D72.829 ; Acute non- recurrent frontal sinusitis J01.10 and Chronic pain G89.29 [place] [address] [address] Nov, [place] [address] [address] Nov, Elevated white blood cell count, unspecified D72.829 ; Encounter for immunization Z23 ; Rheumatoid arthritis with rheumatoid factor of right wrist without organ or systems involvement M05.731 ; Injury of left hand S69.92XA ; Pain in left knee M25.562 and Other chronic pain G89.29 [place] [address] [address] Nov, [place] [address] [address] Nov, [place] [address] [address] Oct, [place] [id number] [place] [address] Oct, Hyperlipemia E78.5 [place] [address] [address] Oct, [place] [address] [address] Oct, Type 2 diabetes mellitus with diabetic neuropathy, unspecified E11.40 ; Neuropathy G62.9 ; Hypertension I10 ; Chronic pain G89.29 and Hyperlipemia E78.5 [place] [address] [place] [address] Oct, Emphysema, unspecified J43.9 and Rheumatoid arthritis of left wrist without organ or system involvement with positive rheumatoid factor M05.732 [place] [address] [place] [address] Sep, Chronic pain syndrome G89.4 [facility] [place] [id number] [place] [address] Sep, [place] [address] [place] [address] Sep, [place] [address] [place] [address] Sep, Closed nondisplaced fracture of scaphoid of left wrist, unspecified portion of scaphoid, initial encounter S62.002A [place] [address] [place] [address] Sep, Type 2 diabetes mellitus with diabetic neuropathy, unspecified E11.40 ; Hypertension I10 ; Hyperlipemia E78.5 and Acute non-recurrent maxillary sinusitis J01.00 [place] [address] [place] [address] Sep, [place] [id number] [place] [address] Sep, [place] [id number] [place] [address] Sep, [place] [id number] [place] [address] Sep, [place] [id number] [place] [address] Aug, Epigastric pain R10.13 and Right upper quadrant pain R10.11 [facility] [place] [id number] [place] [address] Aug, Closed nondisplaced fracture of scaphoid of left wrist, unspecified portion of scaphoid, initial encounter S62.002A [place] [id number] [place] [address] Aug, [place] [id number] [place] [address] Aug, [facility] [id number] [place] [address] Aug, Shortness of breath R06.02 ; Epigastric pain R10.13 and Injury of left lower arm, initial encounter S59.912A [place] [address] [place] [address] Aug, Coronary artery disease involving [place] heart with angina pectoris, unspecified vessel or lesion type I25.119 ; Pulmonary emphysema, unspecified emphysema type J43.9 and Snoring R06.83 [place] [address] [place] [address] Aug, [place] [id number] [place] [address] Aug, Emphysema, unspecified J43.9 ; Atherosclerotic heart disease of [place] coronary artery without angina pectoris I25.10 and Hypertension I10 [place] [id number] [place] [address] July, [place] [id number] [place] [address] July, Closed nondisplaced fracture of scaphoid of left wrist, unspecified portion of scaphoid, initial encounter S62.002A [place] [address] [place] [address] July, [place] [address] [place] [address] July, Type 2 diabetes mellitus with diabetic neuropathy, unspecified E11.40 ; Emphysema, unspecified J43.9 ; Atherosclerotic heart disease of [place] coronary artery without angina pectoris I25.10 ; [...] agents L24.89 and Hospital discharge follow-up Z09 [place] [id number] [place] [address] July, [place] [id number] [place] [address] July, Type 2 diabetes mellitus with diabetic neuropathy, unspecified E11.40 [place] [id number] [place] [address] July, Type 2 diabetes mellitus with diabetic neuropathy, unspecified E11.40 and Rheumatoid arthritis of left wrist without organ or system involvement with positive rheumatoid factor M05.732 [place] [id number] [place] [address] July, [place] [id number] [place] [address] July, [place] [id number] [place] [address] Jun, [place] [id number] [place] [address] Jun, [place] [id number] [place] [address] Jun, 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 [place] [id number] [place] [address] Jun, [place] [id number] [place] [address] Jun, 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 [place] [address] [address] 14 Jun, 2015 [place] [id number] [place] [address] Jun, [place] [address] [place] [address] Jun, Encounter for PPD test Z11.1 ; Rheumatoid arthritis with rheumatoid factor of right wrist without organ or systems involvement M05.731 and Rheumatoid arthritis of left wrist without organ or system involvement with positive rheumatoid factor M05.732 [place] [address] [place] [address] Jun, Type 2 diabetes mellitus with diabetic neuropathy, unspecified E11.40 [place] [address] [place] [address] May, Type 2 diabetes mellitus with diabetic neuropathy, unspecified E11.40 ; Emphysema, unspecified J43.9 ; Rheumatoid arthritis with rheumatoid factor of right wrist without organ or systems involvement M05.731 ; Rheumatoid arthritis of left wrist without organ or system involvement with positive rheumatoid factor M05.732 and Chronic pain G89.29 [place] [address] [place] [address] May, [place] [address] [place] [address] May, Swelling of hand joint M25.449 ; Ankle swelling M25.473 and Joint pain M25.50 [place] [address] [place] [address] May, Emphysema, unspecified J43.9 [place] [id number] [place] [address] May, Hypertension I10 and Gastroenteritis K52.9 [place] [id number] [place] [id number] Apr, [facility] [id number] [place] [id number] Apr, [place] [id number] [place] [id number] Apr, [place] [id number] [place] [id number] Apr, Type 2 diabetes mellitus with diabetic neuropathy, unspecified E11.40 ; Emphysema, unspecified J43.9 ; Atherosclerotic heart disease of [place] coronary artery without angina pectoris I25.10 ; Migraine without aura, not intractable, with status migrainosus G43.001 ; Gastro-esophageal reflux disease without esophagitis K21.9 ; CAD (coronary artery disease) I25.10 ; Hypertension I10 ; Hyperlipemia E78.5 ; Allergic rhinitis J30.9 ; Neuropathy G62.9 ; Anxiety associated with depression F41.8 and Injury of left hand S69.92XA [address] [address] Apr, [place] [id number] [place] [address] Apr, [place] [id number] [place] [address] Apr, Type 2 diabetes mellitus with diabetic neuropathy, unspecified E11.40 ; Emphysema, unspecified J43.9 ; Essential (primary) hypertension I10 ; Atherosclerotic heart disease of [place] coronary artery without angina pectoris I25.10 ; Gastro-esophageal reflux disease without esophagitis K21.9 ; CAD (coronary artery disease) I25.10 ; Hyperlipemia E78.5 ; Hypertension I10 ; History of solitary pulmonary nodule Z87.898 ; Allergic rhinitis J30.9 ; Chronic pain G89.29 and Depression with anxiety F41.8 [place] [id number] [place] [address] Mar, [place] [id number] [place] [address] Mar, Allergic rhinitis J30.9 ; URI (upper respiratory infection) J06.9 and Other viral agents as the cause of diseases classified elsewhere B97.89 [facility] [address] [address] Feb, Acute nasopharyngitis [common cold] J00 and Acute diarrhea R19.7 [place] [address] [address] Feb, Depression F32.9 [place] [address] [address] Jan, Otitis media, right H66.91 [place] [address] [address] Jan, [place] [address] [address] Jan, Type 2 diabetes mellitus with diabetic neuropathy, unspecified E11.40 [place] [address] [address] Jan, [place] [address] [address] Jan, Hyperlipemia E78.5 [place] [address] [address] Jan, Type 2 diabetes mellitus with diabetic neuropathy, unspecified E11.40 ; Emphysema, unspecified J43.9 ; CAD (coronary artery disease) I25.10 and Hyperlipemia E78.5 [place] [address] [address] Dec, Allergic rhinitis J30.9 and Fungal infection B49 [place] [address] [address] Dec, [place] [address] [address] Dec, [place] [address] [address] Dec, Chest pain R07.9 ; CAD (coronary artery disease) I25.10 ; Hypertension I10 and Hyperlipemia E78.5 [place] [id number] [place] [address] Dec, Pain in thoracic spine M54.6 ; Gastro-esophageal reflux disease without esophagitis K21.9 ; Emphysema, unspecified J43.9 and Migraine without aura, not intractable, with status migrainosus G43.001 [place] [address] [place] [id number] [place] [phone] Dec, [place] [address] [place] [id number] [place] [address] Nov, Influenza vaccine administered V04.81 [place] [id number] [place] [address] Nov, [place] [address] [place] [id number] [place] [address] Sep, [place] [address] [place] [id number] [place] [address] Sep, [place] [id number] [place] [address] Sep, CAD (coronary artery disease) 414.00 and Diabetes type 2, uncontrolled 250.02 [place] [id number] [place] [address] Sep, CAD (coronary artery disease) 414.00 ; Diabetes type 2, uncontrolled 250.02 and Migraine 346.90 IMMUNIZATIONS No Known Immunizations SOCIAL HISTORY Never Assessed REASON FOR VISIT Requests return call PLAN OF CARE VITAL SIGNS MEDICATIONS Medication Instructions Dosage Frequency Start Date End Date Duration Status Plaquenil 200 mg Orally Once a day 1 tablet with food or milk 24h 30 Active BusPIRone HCl 7.5 MG Orally 3 times a day prn 1 tablet 30 Active Trazodone HCl 50 mg Orally Once a day 1 tablet at bedtime as needed 24h 30 Active Atorvastatin Calcium 10 mg Orally Once a day 1 tablet 24h Oct, 30 day(s) Active Metoprolol Tartrate 25 MG Orally Twice a day TAKE ONE TABLET BY MOUTH TWICE DAILY 12h 30 Active Pantoprazole Sodium 20 mg Orally Once a day TAKE ONE TABLET BY MOUTH ONCE DAILY 24h 30 Active Lyrica 75 MG Orally Twice a day 1 capsule 12h 28 Active Citalopram Hydrobromide 20 mg Orally Once a day 1 tablet 24h 30 Active RESULTS No Results PROCEDURES No Known procedures INSTRUCTIONS MEDICATIONS ADMINISTERED No Known Medications MEDICAL (GENERAL) HISTORY Type Description Date Medical History COPD Medical History Type 2 Diabetes Medical History HTN Medical History Cardiac stents July 2010 post [place]-stent to LAD Medical History Rheumatoid Arthritis Medical History 04/2016---Echo- 60%//mild hypertrophy at the base of the septum, mild mitral regurg/ mild tricuspid regurg. PAP about 10-15 mmHg Medical History 04/2016------Normal Lexiscan Medical History Elevated white blood cell count, unspecified Medical History Atherosclerotic heart disease of [place] coronary artery without angina pectoris Medical History [...]
--- OUTSIDE RECORDS SUMMARY | 2018-08-23 17:27 | XMS REPORT ---
Author Author DELEONROB MoranELE [facility] Address [address] [place] [address] Care Team Providers Care Supervisor Train Operations Name Role Phone DELEONCLAU Moran Unavailable PROBLEMS Type Condition ICD9-CM Code [id number] Code Onset Dates Condition Status SNOMED Code Problem Primary insomnia F51.01 Active 8280130 Problem Neuropathy G62.9 Active 698583437 Problem Periodontitis K05.30 Active 53447348 Problem Atherosclerotic heart disease of [place] coronary artery without angina pectoris I25.10 Active 140712659764802 Problem Vitamin D deficiency E55.9 Active 01528497 Problem Hammer toe of left foot M20.42 Active 790090619 Problem Other hammer toe(s) (acquired), left foot M20.42 Active 36713470 Problem Dependence on nocturnal oxygen therapy Z99.81 Active 27467415362315 Problem Tobacco abuse Z72.0 Active 061925724 Problem Other hammer toe(s) (acquired), right foot M20.41 Active 813381326 Problem Gastro-esophageal reflux disease without esophagitis K21.9 Active 721978066 Problem Emphysema, unspecified J43.9 Active 40155339 Problem Hypertension I10 Active 90424502 Problem Hyperlipemia E78.5 Active 82529916 Problem Anxiety associated with depression F41.8 Active 213469772 Problem Chronic pain G89.29 Active 02099308 Problem Type 2 diabetes mellitus with diabetic neuropathy, unspecified E11.40 Active 04209091 Problem OAB (overactive bladder) N32.81 Active 200495028 Problem Allergic rhinitis J30.9 Active 01371597 Problem Rheumatoid arthritis involving multiple sites with positive rheumatoid factor M05.79 Active 525920548 ALLERGIES No Information ENCOUNTERS Encounter Location Date Diagnosis [facility] [address] [facility] [id number] [address] Oct, [facility] [address] [facility] [id number] [place] [address] Aug, Type 2 diabetes mellitus with diabetic neuropathy, unspecified E11.40 ; Hypertension I10 ; Hyperlipemia E78.5 ; Gastro-esophageal reflux disease without esophagitis K21.9 ; Emphysema, unspecified J43.9 ; Anxiety associated with depression F41.8 ; Vitamin D deficiency E55.9 ; Chronic pain G89.29 ; Tobacco abuse Z72.0 ; Overweight (BMI 25.0-29.9) E66.3 ; Atherosclerotic heart disease of [place] coronary artery without angina pectoris I25.10 ; OAB (overactive bladder) N32.81 and Primary insomnia F51.01 [place] [address] [address] July, [place] [address] [address] July, [place] [address] [address] July, Chronic pain G89.29 [place] [address] [place] [id number] [place] [address] July, [place] [address] [address] July, Onychomycosis B35.1 ; Hammer toe of left foot M20.42 and Type 2 diabetes mellitus with diabetic neuropathy, unspecified E11.40 [place] [address] [place] [id number] [place] [address] July, [place] [address] [place] [id number] [place] [address] July, Chronic pain G89.29 and Neuropathy G62.9 [place] [address] [address] July, [place] [address] [place] [id number] [place] [address] July, [place] [address] [address] Jun, [facility] [id number] [place] [address] Jun, Chronic pain G89.29 [facility] [address] [place] [address] Jun, [facility] [id number] [place] [address] Jun, [facility] [address] [place] [id number] [place] [address] Jun, Visit for TB skin test Z11.1 [facility] [address] [place] [id number] [place] [address] 16 Jun, 2017 [facility] [address] [place] [id number] [place] [address] Jun, [facility] [address] [place] [id number] [place] [address] Jun, Tobacco abuse Z72.0 and Rheumatoid arthritis involving multiple sites with positive rheumatoid factor M05.79 [facility] [address] [place] [id number] [place] [address] Jun, Anxiety F41.9 ; Acute non-recurrent maxillary sinusitis J01.00 and Chronic pain G89.29 [facility] [address] [address] Jun, [facility] [id number] [place] [address] May, Rheumatoid arthritis involving multiple sites with positive rheumatoid factor M05.79 [facility] [address] [place] [id number] [place] [address] May, Chronic pain G89.29 [facility] [id number] [place] [address] May, [facility] [address] [place] [id number] [place] [address] May, [place] [address] [address] May, [place] [address] [place] [id number] [place] [address] May, Type 2 diabetes mellitus with diabetic neuropathy, unspecified E11.40 [place] [address] [place] [id number] [place] [address] May, Type 2 diabetes mellitus with diabetic neuropathy, unspecified E11.40 ; Emphysema, unspecified J43.9 ; Hypertension I10 ; Hyperlipemia E78.5 ; Vitamin D deficiency E55.9 ; Right medial knee pain M25.561 ; Controlled substance agreement signed Z79.899 ; Chronic pain G89.29 ; Allergic rhinitis J30.9 ; Anxiety associated with depression F41.8 ; Neuropathy G62.9 and Gastro- esophageal reflux disease without esophagitis K21.9 [place] [address] [place] [id number] [place] [address] Apr, Chronic pain G89.29 [place] [address] [place] [address] Apr, Other hammer toe(s) (acquired), left foot M20.42 ; Other hammer toe(s) (acquired), right foot M20.41 ; Type 2 diabetes mellitus with diabetic neuropathy, unspecified E11.40 and Onychomycosis B35.1 [place] [address] [place] [address] 2017 Gastro-esophageal reflux disease without esophagitis K21.9 [place] [address] [address] Apr, Controlled substance agreement signed Z79.899 [place] [address] [place] [address] Mar, Chronic pain G89.29 [place] [address] [place] [id number] [place] [address] Mar, Emphysema, unspecified J43.9 and Type 2 diabetes mellitus with diabetic neuropathy, unspecified E11.40 [facility] [address] [place] [id number] [place] [address] Mar, Dysuria R30.0 ; Vaginal candidiasis B37.3 and Acute nonintractable headache, unspecified headache type R51 [place] [address] [place] [id number] [place] [address] Feb, Neuropathy G62.9 and Chronic pain G89.29 [place] [address] [place] [id number] [place] [address] Feb, Gastro-esophageal reflux disease without esophagitis K21.9 [place] [address] [place] [id number] [place] [address] Feb, [place] [address] [address] Feb, Rheumatoid arthritis involving multiple sites with positive rheumatoid factor M05.79 and COPD with acute exacerbation J44.1 [place] [address] [place] [id number] [place] [address] Feb, Vaginal odor N89.8 ; Vaginal irritation N89.8 ; Candidal dermatitis B37.2 and Screening breast examination Z12.31 [place] [address] [place] [id number] [place] [address] Feb, [place] [address] [place] [id number] [place] [address] Feb, [place] [address] [place] [id number] [place] [address] Feb, [place] [address] [address] Feb, COPD with exacerbation J44.1 ; Tobacco abuse counseling Z71.6 ; Tobacco abuse Z72.0 ; Rheumatoid arthritis involving multiple sites with positive rheumatoid factor M05.79 and Hyperlipemia E78.5 [place] [address] [place] [id number] [place] [address] Feb, [facility] [address] [place] [id number] [place] [phone] Jan, [facility] [address] [place] [id number] [place] [address] Jan, Chronic pain G89.29 [facility] [id number] [place] [id number] Jan, Dental examination Z01.20 [facility] [address] [place] [id number] [place] [address] Jan, Back pain of lumbar region with sciatica M54.40 [facility] [address] [place] [id number] [place] [address] Jan, Acute bacterial conjunctivitis of both eyes H10.33 [place] [address] [place] [id number] [place] [address] Jan, Chronic pain G89.29 [place] [address] [place] [id number] [place] [address] Dec, Type 2 diabetes mellitus with diabetic neuropathy, unspecified E11.40 ; Hypertension I10 ; Hyperlipemia E78.5 ; Gastro-esophageal reflux disease without esophagitis K21.9 ; Anxiety associated with depression F41.8 ; Allergic rhinitis J30.9 ; Neuropathy G62.9 and Dependence on nocturnal oxygen therapy Z99.81 [place] [id number] [place] [address] Dec, [place] [address] [place] [id number] [place] [address] Dec, [place] [address] [place] [id number] [place] [address] Dec, Encounter for immunization Z23 [place] [address] [place] [id number] [place] [address] Dec, Type 2 diabetes mellitus with diabetic neuropathy, unspecified E11.40 and Chronic pain G89.29 [facility] [address] [place] [id number] [place] [address] 11 Nov, 2016 Gastro-esophageal reflux disease without esophagitis K21.9 [facility] [address] [address] 11 Nov, 2016 Peripheral edema R60.9 and Chest pain in adult R07.9 [facility] [address] [address] 07 Nov, 2016 Chronic pain G89.29 [facility] [address] [address] 31 Oct, 2016 [facility] [address] [address] 30 Oct, 2016 [facility] [address] [address] 17 Oct, 2016 Rheumatoid arthritis with rheumatoid factor of right wrist without organ or systems involvement M05.731 [facility] [address] [address] 15 Oct, 2016 [facility] [address] [place] [id number] [place] [address] 14 Oct, 2016 Acute exacerbation of chronic obstructive pulmonary disease (COPD) J44.1 and Canker sore K12.0 [facility] [address] [address] 14 Oct, 2016 [facility] [address] [place] [id number] [place] [address] Oct, [facility] [address] [address] 09 Oct, 2016 Chronic pain G89.29 [facility] [address] [id number] [place] [id number] 08 Oct, 2016 Dental examination Z01.20 [facility] [address] [address] Oct, Dental examination Z01.20 and Periodontitis K05.30 [facility] [address] [place] [phone] Oct, Dental examination Z01.20 [facility] [address] [address] Sep, Abscess L02.91 [facility] [address] [place] [id number] [place] [address] Sep, Dental examination Z01.20 [facility] [id number] [place] [address] Sep, [facility] [address] [place] [id number] [place] [id number] Sep, Dental examination Z01.20 and Dental caries K02.9 [place] [address] [place] [id number] [place] [address] Sep, Primary insomnia F51.01 and Anxiety associated with depression F41.8 [place] [address] [place] [id number] [place] [address] Sep, Rheumatoid arthritis with rheumatoid factor of right wrist without organ or systems involvement M05.731 [place] [address] [place] [address] Sep, Chronic pain G89.29 [place] [address] [place] [id number] [place] [address] Sep, Type 2 diabetes mellitus with diabetic neuropathy, unspecified E11.40 ; Emphysema, unspecified J43.9 ; Gastro-esophageal reflux disease without esophagitis K21.9 ; Hypertension I10 ; Hyperlipemia E78.5 ; Anxiety associated with depression F41.8 ; Chronic pain G89.29 ; Vitamin D deficiency E55.9 and Primary insomnia F51.01 [place] [address] [address] Aug, Anxiety associated with depression F41.8 [place] [address] [place] [id number] [place] [address] 13 Aug, 2016 Chronic pain G89.29 and Neuropathy G62.9 [place] [address] [place] [id number] [place] [address] Aug, Type 2 diabetes mellitus with diabetic neuropathy, unspecified E11.40 ; Rheumatoid arthritis involving multiple sites with positive rheumatoid factor M05.79 ; Vitamin D deficiency E55.9 ; Anxiety associated with depression F41.8 and Primary insomnia F51.01 [place] [address] [place] [id number] [place] [address] July, Emphysema, unspecified J43.9 [place] [address] [place] [id number] [place] [address] July, Allergic rhinitis J30.9 [place] [address] [address] July, Allergic rhinitis J30.9 ; Emphysema, unspecified J43.9 and Rheumatoid arthritis with rheumatoid factor of right wrist without organ or systems involvement M05.731 [place] [address] [address] July, Neuropathy G62.9 and Chronic pain G89.29 [place] [address] [place] [id number] [place] [address] July, Rheumatoid arthritis involving multiple sites with positive rheumatoid factor M05.79 [place] [address] [place] [id number] [place] [address] Jun, [place] [address] [place] [id number] [place] [address] Jun, Neuropathy G62.9 and Chronic pain G89.29 [place] [address] [place] [id number] [place] [address] May, Neuropathy G62.9 and Chronic pain G89.29 [place] [address] [address] May, [place] [address] [place] [id number] [place] [address] May, [place] [address] [address] May, Type 2 diabetes mellitus with diabetic [...] system involvement with positive rheumatoid factor M05.732 [place] [address] [place] [id number] [place] [address] Apr, Chronic pain G89.29 [place] [address] [place] [id number] [place] [address] Mar, Gastro-esophageal reflux disease without esophagitis K21.9 [place] [address] [place] [id number] [place] [address] Mar, [place] [address] [place] [id number] [place] [address] Mar, Rheumatoid arthritis with rheumatoid factor of right wrist without organ or systems involvement M05.731 [place] [address] [place] [id number] [place] [address] Mar, Chronic pain G89.29 [place] [address] [place] [id number] [place] [address] Feb, Hyperlipemia E78.5 [place] [address] [place] [id number] [place] [address] Feb, Abnormal breath sounds R06.89 ; COPD with exacerbation J44.1 and Fatigue, unspecified type R53.83 [facility] [address] [place] [address] Feb, Neuropathy G62.9 ; Abnormal lung sounds R09.89 and Bronchitis J40 [facility] [address] [place] [id number] [place] [address] Feb, Bronchitis J40 [facility] [address] [address] Feb, Chronic pain G89.29 [place] [address] [address] Jan, Type 2 diabetes mellitus with diabetic neuropathy, unspecified E11.40 ; Rheumatoid arthritis with rheumatoid factor of right wrist without organ or systems involvement M05.731 and Hyperlipemia E78.5 [place] [address] [address] Jan, Rheumatoid arthritis with rheumatoid factor of right wrist without organ or systems involvement M05.731 [place] [address] [address] Jan, De Quervain's disease (radial styloid tenosynovitis) M65.4 ; Closed nondisplaced fracture of scaphoid of left wrist, unspecified portion of scaphoid, initial encounter S62.002A and Peripheral tear of medial meniscus of left knee, unspecified whether old or current tear, initial encounter S83.222A [place] [address] [place] [id number] [place] [address] Jan, Hypertension I10 ; Type 2 diabetes mellitus with diabetic neuropathy, unspecified E11.40 ; Hyperlipemia E78.5 ; Allergic rhinitis J30.9 ; Neuropathy G62.9 ; Rheumatoid arthritis with rheumatoid factor of right wrist without organ or systems involvement M05.731 ; Acute non-recurrent maxillary sinusitis J01.00 and Chronic pain G89.29 [place] [address] [place] [id number] [place] [address] Dec, [place] [address] [place] [id number] [place] [address] Dec, [place] [address] [address] Dec, Type 2 diabetes mellitus with diabetic neuropathy, unspecified E11.40 ; Emphysema, unspecified J43.9 ; Gastro-esophageal reflux disease without esophagitis K21.9 ; Hypertension I10 ; Hyperlipemia E78.5 ; Rheumatoid arthritis with rheumatoid factor of right wrist without organ or systems involvement M05.731 ; Elevated white blood cell count, unspecified D72.829 ; Acute non- recurrent frontal sinusitis J01.10 and Chronic pain G89.29 [place] [address] [place] [id number] [place] [address] Nov, [place] [address] [place] [id number] [place] [address] Nov, Elevated white blood cell count, unspecified D72.829 ; Encounter for immunization Z23 ; Rheumatoid arthritis with rheumatoid factor of right wrist without organ or systems involvement M05.731 ; Injury of left hand S69.92XA ; Pain in left knee M25.562 and Other chronic pain G89.29 [place] [address] [id number] [place] [address] Nov, [place] [address] [id number] [place] [address] Nov, [place] [address] [id number] [place] [address] Oct, [place] [address] [place] [id number] [place] [address] Oct, Hyperlipemia E78.5 [place] [address] [id number] [place] [address] Oct, [place] [address] [id number] [place] [address] Oct, Type 2 diabetes mellitus with diabetic neuropathy, unspecified E11.40 ; Neuropathy G62.9 ; Hypertension I10 ; Chronic pain G89.29 and Hyperlipemia E78.5 [place] [address] [place] [place] [address] Oct, Emphysema, unspecified J43.9 and Rheumatoid arthritis of left wrist without organ or system involvement with positive rheumatoid factor M05.732 [place] [id number] [place] [address] Sep, Chronic pain syndrome G89.4 [place] [address] [address] Sep, [place] [id number] [place] [address] Sep, [place] [id number] [place] [address] Sep, Closed nondisplaced fracture of scaphoid of left wrist, unspecified portion of scaphoid, initial encounter S62.002A [place] [id number] [place] [address] Sep, Type 2 diabetes mellitus with diabetic neuropathy, unspecified E11.40 ; Hypertension I10 ; Hyperlipemia E78.5 and Acute non-recurrent maxillary sinusitis J01.00 [place] [id number] [place] [address] Sep, [place] [id number] [place] [address] Sep, [facility] [id number] [place] [address] Sep, [place] [id number] [place] [address] Sep, [facility] [id number] [place] [address] Aug, Epigastric pain R10.13 and Right upper quadrant pain R10.11 [place] [address] [address] 30 Aug, 2015 Closed nondisplaced fracture of scaphoid of left wrist, unspecified portion of scaphoid, initial encounter S62.002A [place] [address] [address] Aug, [place] [id number] [place] [address] Aug, [facility] [address] [place] [address] Aug, Shortness of breath R06.02 ; Epigastric pain R10.13 and Injury of left lower arm, initial encounter S59.912A [place] [id number] [place] [address] 07 Aug, 2015 Coronary artery disease involving [place] heart with angina pectoris, unspecified vessel or lesion type I25.119 ; Pulmonary emphysema, unspecified emphysema type J43.9 and Snoring R06.83 [place] [id number] [place] [address] Aug, [place] [address] [place] [address] 03 Aug, 2015 Emphysema, unspecified J43.9 ; Atherosclerotic heart disease of [place] coronary artery without angina pectoris I25.10 and Hypertension I10 [place] [id number] [place] [address] July, [place] [id number] [place] [phone] July, Closed nondisplaced fracture of scaphoid of left wrist, unspecified portion of scaphoid, initial encounter S62.002A [place] [id number] [address] July, [place] [address] [address] [place] [id number] [place] [id number] July, Type 2 diabetes mellitus with diabetic neuropathy, unspecified E11.40 ; Emphysema, unspecified J43.9 ; Atherosclerotic heart disease of [place] coronary artery without angina pectoris I25.10 ; [...] agents L24.89 and Hospital discharge follow-up Z09 [place] [address] [phone] July, [place] [address] [address] [address] [address] July, Type 2 diabetes mellitus with diabetic neuropathy, unspecified E11.40 [place] [address] [address] July, Type 2 diabetes mellitus with diabetic neuropathy, unspecified E11.40 and Rheumatoid arthritis of left wrist without organ or system involvement with positive rheumatoid factor M05.732 [place] [address] [address] July, [place] [address] [address] [place] [id number] [place] [address] July, [place] [address] [place] [id number] [place] [address] Jun, [place] [address] [place] [id number] [place] [address] Jun, [place] [address] [address] Jun, 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 [place] [address] [place] [id number] [place] [address] Jun, [place] [address] [address] Jun, 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 [place] [address] [place] [id number] [place] [address] Jun, [place] [address] [place] [id number] [place] [address] Jun, [place] [address] [place] [id number] [place] [address] Jun, Encounter for PPD test Z11.1 ; Rheumatoid arthritis with rheumatoid factor of right wrist without organ or systems involvement M05.731 and Rheumatoid arthritis of left wrist without organ or system involvement with positive rheumatoid factor M05.732 [place] [address] [place] [id number] [place] [address] Jun, Type 2 diabetes mellitus with diabetic neuropathy, unspecified E11.40 [place] [address] [place] [id number] [place] [address] May, Type 2 diabetes mellitus with diabetic neuropathy, unspecified E11.40 ; Emphysema, unspecified J43.9 ; Rheumatoid arthritis with rheumatoid factor of right wrist without organ or systems involvement M05.731 ; Rheumatoid arthritis of left wrist without organ or system involvement with positive rheumatoid factor M05.732 and Chronic pain G89.29 [place] [address] [place] [id number] [place] [address] May, [place] [address] [place] [id number] [place] [address] May, Swelling of hand joint M25.449 ; Ankle swelling M25.473 and Joint pain M25.50 [place] [address] [place] [id number] [place] [address] May, Emphysema, unspecified J43.9 [place] [address] [place] [id number] [place] [address] May, Hypertension I10 and Gastroenteritis K52.9 [place] [address] [address] Apr, [place] [address] [place] [id number] [place] [address] Apr, [place] [address] [place] [id number] [place] [address] Apr, [place] [address] [place] [id number] [place] [address] Apr, Type 2 diabetes mellitus with diabetic neuropathy, unspecified E11.40 ; Emphysema, unspecified J43.9 ; Atherosclerotic heart disease of [place] coronary artery without angina pectoris I25.10 ; Migraine without aura, not intractable, with status migrainosus G43.001 ; Gastro-esophageal reflux disease without esophagitis K21.9 ; CAD (coronary artery disease) I25.10 ; Hypertension I10 ; Hyperlipemia E78.5 ; Allergic rhinitis J30.9 ; Neuropathy G62.9 ; Anxiety associated with depression F41.8 and Injury of left hand S69.92XA [address] [address] Apr, [address] [address] Apr, [place] [address] [place] [id number] [place] [address] Apr, Type 2 diabetes mellitus with diabetic neuropathy, unspecified E11.40 ; Emphysema, unspecified J43.9 ; Essential (primary) hypertension I10 ; Atherosclerotic heart disease of [place] coronary artery without angina pectoris I25.10 ; Gastro-esophageal reflux disease without esophagitis K21.9 ; CAD (coronary artery disease) I25.10 ; Hyperlipemia E78.5 ; Hypertension I10 ; History of solitary pulmonary nodule Z87.898 ; Allergic rhinitis J30.9 ; Chronic pain G89.29 and Depression with anxiety F41.8 [place] [id number] [place] [address] Mar, [address] [address] Mar, Allergic rhinitis J30.9 ; URI (upper respiratory infection) J06.9 and Other viral agents as the cause of diseases classified elsewhere B97.89 [facility] [address] [address] Feb, Acute nasopharyngitis [common cold] J00 and Acute diarrhea R19.7 [place] [address] [address] Feb, Depression F32.9 [place] [address] [address] Jan, Otitis media, right H66.91 [place] [address] [address] Jan, [place] [address] [address] Jan, Type 2 diabetes mellitus with diabetic neuropathy, unspecified E11.40 [place] [address] [address] Jan, [place] [address] [address] Jan, Hyperlipemia E78.5 [place] [address] [address] Jan, Type 2 diabetes mellitus with diabetic neuropathy, unspecified E11.40 ; Emphysema, unspecified J43.9 ; CAD (coronary artery disease) I25.10 and Hyperlipemia E78.5 [place] [address] [address] Dec, Allergic rhinitis J30.9 and Fungal infection B49 [place] [address] [address] Dec, [place] [address] [address] Dec, [place] [address] [place] [id number] [place] [address] Dec, Chest pain R07.9 ; CAD (coronary artery disease) I25.10 ; Hypertension I10 and Hyperlipemia E78.[address] [address] Dec, Pain in thoracic spine M54.6 ; Gastro-esophageal reflux disease without esophagitis K21.9 ; Emphysema, unspecified J43.9 and Migraine without aura, not intractable, with status migrainosus G43.001 [place] [address] [address] Dec, [place] [address] [address] Nov, Influenza vaccine administered V04.[address] [address] Nov, [place] [address] [address] Sep, [address] [address] Sep, [address] [address] Sep, CAD (coronary artery disease) 414.00 and Diabetes type 2, uncontrolled 250.[address] [address] Sep, CAD (coronary artery disease) 414.00 ; Diabetes type 2, uncontrolled 250.02 and Migraine 346.90 IMMUNIZATIONS No Known Immunizations SOCIAL HISTORY Never Assessed REASON FOR VISIT Medication refill PLAN OF CARE VITAL SIGNS MEDICATIONS Medication Instructions Dosage Frequency Start Date End Date Duration Status Protonix 40 mg Orally Once a day 1 tablet 24h Dec, 90 days Active RESULTS No Results PROCEDURES [...] unspecified Medical History Atherosclerotic heart disease of [place] coronary artery without angina pectoris Medical History [...]
--- OUTSIDE RECORDS SUMMARY | 2018-08-23 17:29 | XMS REPORT ---
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 Name Role Phone DELEONCLAU Moran Unavailable PROBLEMS Type Condition ICD9-CM Code [id number] Code Onset Dates Condition Status SNOMED Code Problem Dependence on nocturnal oxygen therapy Z99.81 Active 24436459541159 Problem Other hammer toe(s) (acquired), left foot M20.42 Active 79577205 Problem Neuropathy G62.9 Active 014263863 Problem Anxiety F41.9 Active 41423483 Problem Hyperlipemia E78.5 Active 32920548 Problem COPD with acute exacerbation J44.1 Active 998634001 Problem Hypertension I10 Active 04370963 Problem Vitamin D deficiency E55.9 Active 35168535 Problem Tobacco abuse Z72.0 Active 011706664 Problem Other hammer toe(s) (acquired), right foot M20.41 Active 379169938 Problem Back pain of lumbar region with sciatica M54.40 Active 468485384 Problem COPD with exacerbation J44.1 Active [id number] Problem Emphysema, unspecified J43.9 Active 60663591 Problem Allergic rhinitis J30.9 Active 88857161 Problem Type 2 diabetes mellitus with diabetic neuropathy, unspecified E11.40 Active 52157443 Problem Gastro-esophageal reflux disease without esophagitis K21.9 Active 475073280 Problem OAB (overactive bladder) N32.81 Active 747961726 Problem Rheumatoid arthritis involving multiple sites with positive rheumatoid factor M05.79 Active 574811168 Problem Anxiety associated with depression F41.8 Active 843687185 Problem Primary insomnia F51.01 Active 5810739 Problem Chronic pain G89.29 Active 12987128 Problem Periodontitis K05.30 Active 07995668 ALLERGIES No Information ENCOUNTERS Encounter Location Date Diagnosis [facility] [address] [facility] [id number] [address] Aug, [facility] [address] [address] July, [facility] [id number] [place] [address] July, [facility] [id number] [place] [address] Jun, [facility] [id number] [place] [address] Jun, Chronic pain G89.29 [facility] [id number] [place] [address] Jun, [facility] [id number] [place] [address] Jun, [facility] [id number] [place] [address] Jun, Visit for TB skin test Z11.1 [facility] [address] [address] Jun, [facility] [address] [place] [address] Jun, [facility] [address] [place] [address] Jun, Tobacco abuse Z72.0 and Rheumatoid arthritis involving multiple sites with positive rheumatoid factor M05.79 [facility] [address] [address] Jun, Anxiety F41.9 ; Acute non-recurrent maxillary sinusitis J01.00 and Chronic pain G89.29 [facility] [address] [address] Jun, [facility] [address] [address] May, Rheumatoid arthritis involving multiple sites with positive rheumatoid factor M05.79 [facility] [id number] [place] [address] May, Chronic pain G89.29 [place] [id number] [place] [address] May, [place] [id number] [place] [address] May, [place] [id number] [place] [address] May, [place] [id number] [place] [address] May, Type 2 diabetes mellitus with diabetic neuropathy, unspecified E11.40 [place] [id number] [place] [address] 02 May, 2017 Type 2 diabetes mellitus with diabetic neuropathy, unspecified E11.40 ; Emphysema, unspecified J43.9 ; Hypertension I10 ; Hyperlipemia E78.5 ; Vitamin D deficiency E55.9 ; Right medial knee pain M25.561 ; Controlled substance agreement signed Z79.899 ; Chronic pain G89.29 ; Allergic rhinitis J30.9 ; Anxiety associated with depression F41.8 ; Neuropathy G62.9 and Gastro- esophageal reflux disease without esophagitis K21.9 [place] [id number] [place] [address] 22 Apr, 2017 Chronic pain G89.29 [place] [id number] [place] [address] 16 Apr, 2017 Other hammer toe(s) (acquired), left foot M20.42 ; Other hammer toe(s) (acquired), right foot M20.41 ; Type 2 diabetes mellitus with diabetic neuropathy, unspecified E11.40 and Onychomycosis B35.1 [place] [id number] [place] [address] 2017 Gastro-esophageal reflux disease without esophagitis K21.9 [place] [id number] [place] [address] Apr, Controlled substance agreement signed Z79.899 [facility] [address] [address] Mar, Chronic pain G89.29 [facility] [address] [address] Mar, Emphysema, unspecified J43.9 and Type 2 diabetes mellitus with diabetic neuropathy, unspecified E11.40 [facility] [address] [address] Mar, Dysuria R30.0 ; Vaginal candidiasis B37.3 and Acute nonintractable headache, unspecified headache type R51 [place] [address] [address] Feb, Neuropathy G62.9 and Chronic pain G89.29 [place] [address] [address] Feb, Gastro-esophageal reflux disease without esophagitis K21.9 [place] [address] [address] Feb, [place] [address] [address] Feb, Rheumatoid arthritis involving multiple sites with positive rheumatoid factor M05.79 and COPD with acute exacerbation J44.1 [place] [address] [address] Feb, Vaginal odor N89.8 ; Vaginal irritation N89.8 ; Candidal dermatitis B37.2 and Screening breast examination Z12.31 [place] [address] [address] Feb, [place] [address] [address] Feb, [place] [address] [address] Feb, [place] [id number] [place] [address] Feb, COPD with exacerbation J44.1 ; Tobacco abuse counseling Z71.6 ; Tobacco abuse Z72.0 ; Rheumatoid arthritis involving multiple sites with positive rheumatoid factor M05.79 and Hyperlipemia E78.5 [place] [address] [address] Feb, [facility] [address] [id number] Jan, [place] [address] [address] Jan, Chronic pain G89.29 [place] [id number] [id number] Jan, Dental examination Z01.20 [facility] [address] [place] [address] Jan, Back pain of lumbar region with sciatica M54.40 [facility] [address] [address] 15 Jan, 2017 Acute bacterial conjunctivitis of both eyes H10.33 [place] [id number] [place] [address] 02 Jan, 2017 Chronic pain G89.[address] [address] Dec, Type 2 diabetes mellitus with diabetic neuropathy, unspecified E11.40 ; Hypertension I10 ; Hyperlipemia E78.5 ; Gastro-esophageal reflux disease without esophagitis K21.9 ; Anxiety associated with depression F41.8 ; Allergic rhinitis J30.9 ; Neuropathy G62.9 and Dependence on nocturnal oxygen therapy Z99.81 [place] [id number] [place] [address] Dec, [address] [address] Dec, [facility] [id number] [place] [address] 09 Dec, 2016 Encounter for immunization Z23 [facility] [id number] [place] [address] 05 Dec, 2016 Type 2 diabetes mellitus with diabetic neuropathy, unspecified E11.40 and Chronic pain G89.29 [place] [address] [address] 11 Nov, 2016 Gastro-esophageal reflux disease without esophagitis K21.9 [place] [id number] [place] [address] 11 Nov, 2016 Peripheral edema R60.9 and Chest pain in adult R07.9 [place] [id number] [place] [address] 07 Nov, 2016 Chronic pain G89.29 [place] [id number] [place] [address] 31 Oct, 2016 [place] [id number] [place] [address] Oct, [place] [id number] [place] [address] 17 Oct, 2016 Rheumatoid arthritis with rheumatoid factor of right wrist without organ or systems involvement M05.731 [place] [id number] [place] [address] Oct, [facility] [id number] [place] [address] Oct, Acute exacerbation of chronic obstructive pulmonary disease (COPD) J44.1 and Canker sore K12.0 [facility] [id number] [place] [address] Oct, [facility] [id number] [place] [address] Oct, [facility] [id number] [place] [address] Oct, Chronic pain G89.29 [facility] [address] [id number] Oct, Dental examination Z01.20 [facility] [address] [address] Oct, Dental examination Z01.20 and Periodontitis K05.30 [facility] [id number] [place] [id number] Oct, Dental examination Z01.20 [facility] [address] [address] Sep, Abscess L02.91 [place] [address] [address] Sep, Dental examination Z01.20 [place] [address] [address] Sep, [facility] [id number] [place] [id number] Sep, Dental examination Z01.20 and Dental caries K02.9 [place] [address] [address] Sep, Primary insomnia F51.01 and Anxiety associated with depression F41.8 [place] [address] [address] Sep, Rheumatoid arthritis with rheumatoid factor of right wrist without organ or systems involvement M05.731 [place] [address] [address] Sep, Chronic pain G89.29 [place] [address] [address] Sep, Type 2 diabetes mellitus with diabetic neuropathy, unspecified E11.40 ; Emphysema, unspecified J43.9 ; Gastro-esophageal reflux disease without esophagitis K21.9 ; Hypertension I10 ; Hyperlipemia E78.5 ; Anxiety associated with depression F41.8 ; Chronic pain G89.29 ; Vitamin D deficiency E55.9 and Primary insomnia F51.01 [place] [id number] [place] [address] 16 Aug, 2016 Anxiety associated with depression F41.8 [place] [id number] [place] [address] 13 Aug, 2016 Chronic pain G89.29 and Neuropathy G62.9 [place] [id number] [place] [address] Aug, Type 2 diabetes mellitus with diabetic neuropathy, unspecified E11.40 ; Rheumatoid arthritis involving multiple sites with positive rheumatoid factor M05.79 ; Vitamin D deficiency E55.9 ; Anxiety associated with depression F41.8 and Primary insomnia F51.01 [place] [id number] [place] [address] July, Emphysema, unspecified J43.9 [place] [id number] [place] [address] July, Allergic rhinitis J30.9 [place] [id number] [place] [address] July, Allergic rhinitis J30.9 ; Emphysema, unspecified J43.9 and Rheumatoid arthritis with rheumatoid factor of right wrist without organ or systems involvement M05.731 [place] [id number] [place] [address] July, Neuropathy G62.9 and Chronic pain G89.29 [place] [id number] [place] [address] July, Rheumatoid arthritis involving multiple sites with positive rheumatoid factor M05.79 [place] [id number] [place] [address] Jun, [place] [id number] [place] [address] Jun, Neuropathy G62.9 and Chronic pain G89.29 [place] [id number] [place] [address] May, Neuropathy G62.9 and Chronic pain G89.29 [place] [id number] [place] [address] May, [place] [id number] [place] [address] May, [place] [id number] [place] [address] May, Type 2 diabetes mellitus with diabetic [...] system involvement with positive rheumatoid factor M05.732 [place] [id number] [place] [address] Apr, Chronic pain G89.29 [place] [id number] [place] [address] Mar, Gastro-esophageal reflux disease without esophagitis K21.9 [place] [id number] [place] [address] Mar, [place] [id number] [place] [address] Mar, Rheumatoid arthritis with rheumatoid factor of right wrist without organ or systems involvement M05.731 [place] [id number] [place] [address] Mar, Chronic pain G89.29 [place] [id number] [place] [address] Feb, Hyperlipemia E78.5 [place] [address] [address] Feb, Abnormal breath sounds R06.89 ; COPD with exacerbation J44.1 and Fatigue, unspecified type R53.83 [place] [address] [address] Feb, Neuropathy G62.9 ; Abnormal lung sounds R09.89 and Bronchitis J40 [facility] [address] [address] Feb, Bronchitis J40 [place] [address] [address] Feb, Chronic pain G89.29 [place] [address] [address] Jan, Type 2 diabetes mellitus with diabetic neuropathy, unspecified E11.40 ; Rheumatoid arthritis with rheumatoid factor of right wrist without organ or systems involvement M05.731 and Hyperlipemia E78.5 [place] [address] [address] Jan, Rheumatoid arthritis with rheumatoid factor of right wrist without organ or systems involvement M05.731 [place] [address] [address] Jan, De Quervain's disease (radial styloid tenosynovitis) M65.4 ; Closed nondisplaced fracture of scaphoid of left wrist, unspecified portion of scaphoid, initial encounter S62.002A and Peripheral tear of medial meniscus of left knee, unspecified whether old or current tear, initial encounter S83.222A [place] [id number] [place] [address] Jan, Hypertension I10 ; Type 2 diabetes mellitus with diabetic neuropathy, unspecified E11.40 ; Hyperlipemia E78.5 ; Allergic rhinitis J30.9 ; Neuropathy G62.9 ; Rheumatoid arthritis with rheumatoid factor of right wrist without organ or systems involvement M05.731 ; Acute non-recurrent maxillary sinusitis J01.00 and Chronic pain G89.29 [place] [id number] [place] [address] Dec, [place] [address] [address] Dec, [place] [address] [address] Dec, Type 2 diabetes mellitus with diabetic neuropathy, unspecified E11.40 ; Emphysema, unspecified J43.9 ; Gastro-esophageal reflux disease without esophagitis K21.9 ; Hypertension I10 ; Hyperlipemia E78.5 ; Rheumatoid arthritis with rheumatoid factor of right wrist without organ or systems involvement M05.731 ; Elevated white blood cell count, unspecified D72.829 ; Acute non- recurrent frontal sinusitis J01.10 and Chronic pain G89.29 [place] [id number] [place] [address] Nov, [place] [address] [address] Nov, Elevated white blood cell count, unspecified D72.829 ; Encounter for immunization Z23 ; Rheumatoid arthritis with rheumatoid factor of right wrist without organ or systems involvement M05.731 ; Injury of left hand S69.92XA ; Pain in left knee M25.562 and Other chronic pain G89.29 [place] [id number] [place] [address] Nov, [place] [address] [address] Nov, [place] [id number] [place] [address] Oct, [place] [address] [address] Oct, Hyperlipemia E78.5 [place] [id number] [place] [address] Oct, [place] [id number] [place] [address] Oct, Type 2 diabetes mellitus with diabetic neuropathy, unspecified E11.40 ; Neuropathy G62.9 ; Hypertension I10 ; Chronic pain G89.29 and Hyperlipemia E78.5 [place] [id number] [place] [address] Oct, Emphysema, unspecified J43.9 and Rheumatoid arthritis of left wrist without organ or system involvement with positive rheumatoid factor M05.732 [place] [id number] [place] [address] Sep, Chronic pain syndrome G89.4 [place] [address] [address] Sep, [place] [id number] [place] [address] Sep, [place] [id number] [place] [address] Sep, Closed nondisplaced fracture of scaphoid of left wrist, unspecified portion of scaphoid, initial encounter S62.002A [place] [id number] [place] [address] Sep, Type 2 diabetes mellitus with diabetic neuropathy, unspecified E11.40 ; Hypertension I10 ; Hyperlipemia E78.5 and Acute non-recurrent maxillary sinusitis J01.00 [place] [id number] [place] [address] Sep, [place] [id number] [place] [address] Sep, [place] [id number] [place] [address] Sep, [facility] [id number] [place] [address] Sep, [place] [id number] [place] [address] Aug, Epigastric pain R10.13 and Right upper quadrant pain R10.11 [place] [id number] [place] [address] Aug, Closed nondisplaced fracture of scaphoid of left wrist, unspecified portion of scaphoid, initial encounter S62.002A [place] [id number] [place] [address] Aug, [place] [id number] [place] [address] Aug, [facility] [id number] [place] [address] Aug, Shortness of breath R06.02 ; Epigastric pain R10.13 and Injury of left lower arm, initial encounter S59.912A [place] [id number] [place] [address] Aug, Coronary artery disease involving afognak heart with angina pectoris, unspecified vessel or lesion type I25.119 ; Pulmonary emphysema, unspecified emphysema type J43.9 and Snoring R06.83 [place] [id number] [place] [address] Aug, [facility] [id number] [place] [address] Aug, Emphysema, unspecified J43.9 ; 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 and Hypertension I10 [place] [id number] [place] [address] July, [place] [id number] [place] [address] July, Closed nondisplaced fracture of scaphoid of left wrist, unspecified portion of scaphoid, initial encounter S62.002A [place] [id number] [place] [address] July, [place] [id number] [place] [address] July, Type 2 diabetes mellitus with diabetic neuropathy, unspecified E11.40 ; Emphysema, unspecified J43.9 ; 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 ; [...] agents L24.89 and Hospital discharge follow-up Z09 [place] [id number] [place] [address] July, [place] [id number] [place] [address] July, Type 2 diabetes mellitus with diabetic neuropathy, unspecified E11.40 [place] [id number] [place] [address] July, Type 2 diabetes mellitus with diabetic neuropathy, unspecified E11.40 and Rheumatoid arthritis of left wrist without organ or system involvement with positive rheumatoid factor M05.732 [place] [address] [place] [address] July, [place] [id number] [place] [address] July, [place] [id number] [place] [address] Jun, [place] [id number] [place] [address] Jun, [place] [address] [address] Jun, 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 [place] [address] [address] Jun, [facility] [address] [address] Jun, 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 [place] [id number] [place] [address] Jun, [place] [address] [address] Jun, [place] [id number] [place] [address] Jun, Encounter for PPD test Z11.1 ; Rheumatoid arthritis with rheumatoid factor of right wrist without organ or systems involvement M05.731 and Rheumatoid arthritis of left wrist without organ or system involvement with positive rheumatoid factor M05.732 [place] [address] [address] Jun, Type 2 diabetes mellitus with diabetic neuropathy, unspecified E11.40 [place] [address] [place] [address] May, Type 2 diabetes mellitus with diabetic neuropathy, unspecified E11.40 ; Emphysema, unspecified J43.9 ; Rheumatoid arthritis with rheumatoid factor of right wrist without organ or systems involvement M05.731 ; Rheumatoid arthritis of left wrist without organ or system involvement with positive rheumatoid factor M05.732 and Chronic pain G89.29 [place] [address] [id number] [address] May, [place] [address] [id number] [place] [address] May, Swelling of hand joint M25.449 ; Ankle swelling M25.473 and Joint pain M25.50 [place] [address] [id number] [place] [address] May, Emphysema, unspecified J43.9 [place] [address] [id number] [place] [address] May, Gastroenteritis K52.9 and Hypertension I10 [place] [id number] [place] [address] Apr, [place] [id number] [place] [address] Apr, [place] [id number] [place] [address] Apr, [place] [address] [address] Apr, Type 2 diabetes mellitus with diabetic neuropathy, unspecified E11.40 ; Emphysema, unspecified J43.9 ; 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 ; Migraine without aura, not intractable, with status migrainosus G43.001 ; Gastro-esophageal reflux disease without esophagitis K21.9 ; CAD (coronary artery disease) I25.10 ; Hypertension I10 ; Hyperlipemia E78.5 ; Allergic rhinitis J30.9 ; Neuropathy G62.9 ; Anxiety associated with depression F41.8 and Injury of left hand S69.92XA [place] [id number] [place] [address] Apr, [place] [id number] [place] [address] Apr, [place] [id number] [place] [id number] Apr, Type 2 diabetes mellitus with diabetic neuropathy, unspecified E11.40 ; Emphysema, unspecified J43.9 ; Essential (primary) hypertension I10 ; 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 ; Gastro-esophageal reflux disease without esophagitis K21.9 ; CAD (coronary artery disease) I25.10 ; Hyperlipemia E78.5 ; Hypertension I10 ; History of solitary pulmonary nodule Z87.898 ; Allergic rhinitis J30.9 ; Chronic pain G89.29 and Depression with anxiety F41.8 [place] [address] [address] Mar, [place] [address] [address] Mar, Allergic rhinitis J30.9 ; URI (upper respiratory infection) J06.9 and Other viral agents as the cause of diseases classified elsewhere B97.89 [facility] [address] [address] Feb, Acute nasopharyngitis [common cold] J00 and Acute diarrhea R19.7 [place] [address] [address] Feb, Depression F32.[address] [address] Jan, Otitis media, right H66.91 [place] [address] [address] Jan, [place] [address] [address] Jan, Type 2 diabetes mellitus with diabetic neuropathy, unspecified E11.40 [place] [address] [address] Jan, [place] [address] [address] Jan, Hyperlipemia E78.5 [place] [address] [address] Jan, Type 2 diabetes mellitus with diabetic neuropathy, unspecified E11.40 ; Emphysema, unspecified J43.9 ; CAD (coronary artery disease) I25.10 and Hyperlipemia E78.5 [place] [address] [address] Dec, Allergic rhinitis J30.9 and Fungal infection B49 [place] [id number] [place] [address] Dec, [place] [id number] [place] [address] Dec, [place] [id number] [place] [address] Dec, Chest pain R07.9 ; CAD (coronary artery disease) I25.10 ; Hypertension I10 and Hyperlipemia E78.5 [place] [id number] [place] [address] Dec, Pain in thoracic spine M54.6 ; Gastro-esophageal reflux disease without esophagitis K21.9 ; Emphysema, unspecified J43.9 and Migraine without aura, not intractable, with status migrainosus G43.001 [place] [address] [address] Dec, [place] [id number] [place] [address] Nov, Influenza vaccine administered V04.81 [place] [id number] [place] [address] Nov, [place] [id number] [place] [address] Sep, [place] [address] [address] Sep, [place] [id number] [place] [address] Sep, CAD (coronary artery disease) 414.00 and Diabetes type 2, uncontrolled 250.02 [place] [id number] [place] [address] Sep, CAD (coronary artery disease) 414.00 ; Diabetes type 2, uncontrolled 250.02 and Migraine 346.90 IMMUNIZATIONS No Known Immunizations SOCIAL HISTORY Never Assessed REASON FOR VISIT Controlled Med Refill 12/23 PLAN OF CARE VITAL SIGNS MEDICATIONS Medication Instructions Dosage Frequency Start Date End Date Duration Status Easy Touch Pen [place] 32G X 4 MM sq 4 times [...] unspecified Medical History Atherosclerotic heart disease of [place] coronary artery without angina pectoris Medical History [...]
--- OUTSIDE RECORDS SUMMARY | 2018-08-23 17:29 | XMS REPORT ---
Author Author DELEONCLAU Moran [facility] Address [address] [place] [address] Care Team Providers Care Obstetrics Scrub Nurse Name Role Phone CLAU DELEON Unavailable PROBLEMS Type Condition ICD9-CM Code YXB24-TM Code Onset Dates Condition Status SNOMED Code Problem Periodontitis K05.30 Active 02365910 Problem Neuropathy G62.9 Active 261714857 Problem Dependence on nocturnal oxygen therapy Z99.81 Active 72659771160205 Problem COPD with acute exacerbation J44.1 Active 770558658 Problem Hypertension I10 Active 00040774 Problem Back pain of lumbar region with sciatica M54.40 Active 425167255 Problem Vitamin D deficiency E55.9 Active 56585739 Problem Other hammer toe(s) (acquired), right foot M20.41 Active 760188516 Problem Other hammer toe(s) (acquired), left foot M20.42 Active 81049364 Problem COPD with exacerbation J44.1 Active 262860974884635 Problem Tobacco abuse Z72.0 Active 048181477 Problem Gastro-esophageal reflux disease without esophagitis K21.9 Active 240734962 Problem Emphysema, unspecified J43.9 Active 74842066 Problem Hyperlipemia E78.5 Active 36372829 Problem Type 2 diabetes mellitus with diabetic neuropathy, unspecified E11.40 Active 37255891 Problem Chronic pain G89.29 Active 77663501 Problem OAB (overactive bladder) N32.81 Active 629052181 Problem Allergic rhinitis J30.9 Active 14052828 Problem Rheumatoid arthritis involving multiple sites with positive rheumatoid factor M05.79 Active 275759077 Problem Anxiety associated with depression F41.8 Active 387644014 Problem Primary insomnia F51.01 Active 7541992 ALLERGIES No Information ENCOUNTERS Encounter Location Date Diagnosis [facility] [address] [facility] [id number] [address] July, [facility] [address] [address] Jun, [place] [address] [place] [address] Jun, [place] [address] [place] [id number] [place] [address] May, Rheumatoid arthritis involving multiple sites with positive rheumatoid factor M05.79 [place] [address] [place] [id number] [place] [address] May, Chronic pain G89.29 [place] [address] [place] [id number] [place] [address] May, [place] [address] [place] [id number] [place] [address] May, [place] [address] [place] [id number] [place] [address] May, [place] [address] [place] [id number] [place] [address] May, Type 2 diabetes mellitus with diabetic neuropathy, unspecified E11.40 [place] [address] [place] [id number] [place] [address] May, Type 2 diabetes mellitus with diabetic [...] reflux disease without esophagitis K21.9 [place] [address] [place] [address] Apr, Chronic pain G89.29 [place] [address] [place] [id number] [place] [address] 16 Apr, 2017 Other hammer toe(s) (acquired), left foot M20.42 ; Other hammer toe(s) (acquired), right foot M20.41 ; Type 2 diabetes mellitus with diabetic neuropathy, unspecified E11.40 and Onychomycosis B35.1 [facility] [address] [place] [id number] [place] [address] 2017 Gastro-esophageal reflux disease without esophagitis K21.9 [place] [address] [address] 02 Apr, 2017 Controlled substance agreement signed Z79.899 [place] [address] [address] Mar, Chronic pain G89.29 [place] [address] [address] Mar, Emphysema, unspecified J43.9 and Type 2 diabetes mellitus with diabetic neuropathy, unspecified E11.40 [facility] [address] [address] Mar, Dysuria R30.0 ; Vaginal candidiasis B37.3 and Acute nonintractable headache, unspecified headache type R51 [place] [address] [address] Feb, Neuropathy G62.9 and Chronic pain G89.29 [place] [address] [address] Feb, Gastro-esophageal reflux disease without esophagitis K21.9 [place] [address] [address] Feb, [place] [address] [address] Feb, Rheumatoid arthritis involving multiple sites with positive rheumatoid factor M05.79 and COPD with acute exacerbation J44.1 [place] [address] [address] Feb, Vaginal odor N89.8 ; Vaginal irritation N89.8 ; Candidal dermatitis B37.2 and Screening breast examination Z12.31 [place] [address] [address] Feb, [place] [address] [address] Feb, [place] [address] [address] Feb, [place] [address] [address] Feb, COPD with exacerbation J44.1 ; Tobacco abuse counseling Z71.6 ; Tobacco abuse Z72.0 ; Rheumatoid arthritis involving multiple sites with positive rheumatoid factor M05.79 and Hyperlipemia E78.5 [place] [address] [address] Feb, [facility] [address] [id number] Jan, [place] [address] [address] Jan, Chronic pain G89.29 [facility] [address] [id number] Jan, Dental examination Z01.20 [facility] [address] [address] Jan, Back pain of lumbar region with sciatica M54.40 [facility] [address] [place] [address] 15 Jan, 2017 Acute bacterial conjunctivitis of both eyes H10.[address] [address] 02 Jan, 2017 Chronic pain G89.29 [place] [address] [address] Dec, Type 2 diabetes mellitus with diabetic neuropathy, unspecified E11.40 ; Hypertension I10 ; Hyperlipemia E78.5 ; Gastro-esophageal reflux disease without esophagitis K21.9 ; Anxiety associated with depression F41.8 ; Allergic rhinitis J30.9 ; Neuropathy G62.9 and Dependence on nocturnal oxygen therapy Z99.81 [facility] [address] [place] [id number] [place] [address] Dec, [place] [address] [address] Dec, [place] [address] [address] 09 Dec, 2016 Encounter for immunization Z23 [place] [address] [address] 05 Dec, 2016 Type 2 diabetes mellitus with diabetic neuropathy, unspecified E11.40 and Chronic pain G89.29 [place] [address] [address] 11 Nov, 2016 Gastro-esophageal reflux disease without esophagitis K21.9 [place] [address] [address] 11 Nov, 2016 Peripheral edema R60.9 and Chest pain in adult R07.9 [place] [address] [place] [id number] [place] [address] 07 Nov, 2016 Chronic pain G89.29 [place] [address] [place] [id number] [place] [address] Oct, [place] [address] [place] [id number] [place] [address] Oct, [place] [address] [place] [id number] [place] [address] Oct, Rheumatoid arthritis with rheumatoid factor of right wrist without organ or systems involvement M05.731 [facility] [address] [place] [id number] [place] [address] Oct, [facility] IN [facility] [address] [address] Oct, Acute exacerbation of chronic obstructive pulmonary disease (COPD) J44.1 and Canker sore K12.0 [facility] [address] [place] [id number] [place] [address] Oct, [facility] [address] [place] [id number] [place] [address] Oct, [facility] [address] [address] Oct, Chronic pain G89.29 [facility] [address] [place] [id number] Oct, Dental examination Z01.20 [facility] [address] [address] Oct, Dental examination Z01.20 and Periodontitis K05.30 [facility] [address] [id number] Oct, Dental examination Z01.20 [facility] [address] [place] [id number] [place] [address] Sep, Abscess L02.91 [facility] [address] [place] [id number] [place] [address] Sep, Dental examination Z01.20 [facility] [address] [place] [id number] [place] [address] Sep, [facility] [address] [place] [id number] [place] [id number] Sep, Dental examination Z01.20 and Dental caries K02.9 [facility] [address] [address] Sep, Primary insomnia F51.01 and Anxiety associated with depression F41.8 [facility] [address] [place] [id number] [place] [address] Sep, Rheumatoid arthritis with rheumatoid factor of right wrist without organ or systems involvement M05.731 [place] [address] [place] [id number] [place] [address] 14 Sep, 2016 Chronic pain G89.29 [place] [address] [address] 14 Sep, 2016 Type 2 diabetes mellitus with diabetic neuropathy, unspecified E11.40 ; Emphysema, unspecified J43.9 ; Gastro-esophageal reflux disease without esophagitis K21.9 ; Hypertension I10 ; Hyperlipemia E78.5 ; Anxiety associated with depression F41.8 ; Chronic pain G89.29 ; Vitamin D deficiency E55.9 and Primary insomnia F51.01 [place] [address] [address] 16 Aug, 2016 Anxiety associated with depression F41.8 [place] [address] [address] 13 Aug, 2016 Chronic pain G89.29 and Neuropathy G62.9 [place] [address] [place] [id number] [place] [address] Aug, Type 2 diabetes mellitus with diabetic neuropathy, unspecified E11.40 ; Rheumatoid arthritis involving multiple sites with positive rheumatoid factor M05.79 ; Vitamin D deficiency E55.9 ; Anxiety associated with depression F41.8 and Primary insomnia F51.01 [place] [address] [place] [id number] [place] [address] July, Emphysema, unspecified J43.9 [place] [address] [place] [id number] [place] [address] July, Allergic rhinitis J30.9 [place] [address] [place] [id number] [place] [address] July, Allergic rhinitis J30.9 ; Emphysema, unspecified J43.9 and Rheumatoid arthritis with rheumatoid factor of right wrist without organ or systems involvement M05.731 [place] [address] [place] [id number] [place] [address] 18 Jul, 2016 Neuropathy G62.9 and Chronic pain G89.29 [place] [address] [place] [address] July, Rheumatoid arthritis involving multiple sites with positive rheumatoid factor M05.79 [place] [address] [place] [id number] [place] [address] Jun, [place] [address] [place] [id number] [place] [address] Jun, Neuropathy G62.9 and Chronic pain G89.29 [place] [address] [place] [id number] [place] [address] May, Neuropathy G62.9 and Chronic pain G89.29 [place] [address] [place] [id number] [place] [address] May, [place] [address] [place] [id number] [place] [address] May, [place] [address] [place] [id number] [place] [address] May, Type 2 diabetes mellitus with diabetic [...] with positive rheumatoid factor M05.732 [place] [address] [place] [id number] [place] [address] Apr, Chronic pain G89.29 [place] [address] [place] [id number] [place] [address] Mar, Gastro-esophageal reflux disease without esophagitis K21.9 [place] [address] [place] [id number] [place] [address] Mar, [place] [address] [address] Mar, Rheumatoid arthritis with rheumatoid factor of right wrist without organ or systems involvement M05.731 [place] [address] [place] [id number] [place] [address] Mar, Chronic pain G89.29 [place] [address] [address] Feb, Hyperlipemia E78.5 [place] [address] [address] Feb, Abnormal breath sounds R06.89 ; COPD with exacerbation J44.1 and Fatigue, unspecified type R53.83 [place] [address] [place] [id number] [place] [address] Feb, Neuropathy G62.9 ; Abnormal lung sounds R09.89 and Bronchitis J40 [facility] [address] [place] [id number] [place] [address] Feb, Bronchitis J40 [place] [address] [address] Feb, Chronic pain G89.29 [place] [address] [place] [id number] [place] [address] Jan, Type 2 diabetes mellitus with diabetic neuropathy, unspecified E11.40 ; Rheumatoid arthritis with rheumatoid factor of right wrist without organ or systems involvement M05.731 and Hyperlipemia E78.5 [place] [address] [place] [id number] [place] [address] Jan, Rheumatoid arthritis with rheumatoid factor of right wrist without organ or systems involvement M05.731 [place] [address] [place] [id number] [place] [address] 17 Jan, 2016 De Quervain's disease (radial styloid tenosynovitis) M65.4 ; Closed nondisplaced fracture of scaphoid of left wrist, unspecified portion of scaphoid, initial encounter S62.002A and Peripheral tear of medial meniscus of left knee, unspecified whether old or current tear, initial encounter S83.222A [place] [address] [place] [id number] [place] [address] Jan, Hypertension I10 ; Type 2 diabetes mellitus with diabetic neuropathy, unspecified E11.40 ; Hyperlipemia E78.5 ; Allergic rhinitis J30.9 ; Neuropathy G62.9 ; Rheumatoid arthritis with rheumatoid factor of right wrist without organ or systems involvement M05.731 ; Acute non-recurrent maxillary sinusitis J01.00 and Chronic pain G89.29 [place] [address] [address] Dec, [place] [address] [address] Dec, [place] [address] [address] Dec, Type 2 diabetes mellitus with diabetic neuropathy, unspecified E11.40 ; Emphysema, unspecified J43.9 ; Gastro-esophageal reflux disease without esophagitis K21.9 ; Hypertension I10 ; Hyperlipemia E78.5 ; Rheumatoid arthritis with rheumatoid factor of right wrist without organ or systems involvement M05.731 ; Elevated white blood cell count, unspecified D72.829 ; Acute non- recurrent frontal sinusitis J01.10 and Chronic pain G89.29 [place] [address] [place] [id number] [place] [address] Nov, [place] [address] [address] Nov, Elevated white blood cell count, unspecified D72.829 ; Encounter for immunization Z23 ; Rheumatoid arthritis with rheumatoid factor of right wrist without organ or systems involvement M05.731 ; Injury of left hand S69.92XA ; Pain in left knee M25.562 and Other chronic pain G89.29 [place] [address] [place] [address] Nov, [facility] [address] [place] [id number] [place] [address] Nov, [facility] [address] [place] [id number] [place] [address] Oct, [place] [address] [place] [id number] [place] [address] Oct, Hyperlipemia E78.5 [place] [address] [place] [id number] [place] [address] Oct, [place] [address] [place] [id number] [place] [address] Oct, Type 2 diabetes mellitus with diabetic neuropathy, unspecified E11.40 ; Neuropathy G62.9 ; Hypertension I10 ; Chronic pain G89.29 and Hyperlipemia E78.5 [place] [address] [place] [id number] [place] [address] Oct, Emphysema, unspecified J43.9 and Rheumatoid arthritis of left wrist without organ or system involvement with positive rheumatoid factor M05.732 [place] [address] [place] [id number] [place] [address] Sep, Chronic pain syndrome G89.4 [place] [address] [place] [id number] [place] [address] Sep, [place] [address] [place] [id number] [place] [address] Sep, [place] [address] [place] [id number] [place] [address] Sep, Closed nondisplaced fracture of scaphoid of left wrist, unspecified portion of scaphoid, initial encounter S62.002A [place] [address] [place] [id number] [place] [address] Sep, Type 2 diabetes mellitus with diabetic neuropathy, unspecified E11.40 ; Hypertension I10 ; Hyperlipemia E78.5 and Acute non-recurrent maxillary sinusitis J01.00 [facility] [address] [place] [address] Sep, [facility] [address] [place] [id number] [place] [address] Sep, [facility] [address] [place] [id number] [place] [address] Sep, [facility] [address] [place] [id number] [place] [address] Sep, [facility] [address] [place] [id number] [place] [address] Aug, Epigastric pain R10.13 and Right upper quadrant pain R10.11 [place] [address] [place] [address] [place] [address] Aug, Closed nondisplaced fracture of scaphoid of left wrist, unspecified portion of scaphoid, initial encounter S62.002A [facility] [address] [place] [place] [id number] [place] [address] Aug, [facility] [address] [place] [id number] [place] [address] Aug, [facility] [address] [place] [address] Aug, Shortness of breath R06.02 ; Epigastric pain R10.13 and Injury of left lower arm, initial encounter S59.912A [facility] [address] [place] [id number] [place] [address] Aug, Coronary artery disease involving standing rock heart with angina pectoris, unspecified vessel or lesion type I25.119 ; Pulmonary emphysema, unspecified emphysema type J43.9 and Snoring R06.83 [facility] [address] [place] [id number] [place] [address] Aug, [facility] [address] [place] [id number] [place] [address] Aug, Emphysema, unspecified J43.9 ; Atherosclerotic heart disease of standing rock coronary artery without angina pectoris I25.10 and Hypertension I10 [place] [address] [place] [id number] [place] [address] July, [place] [address] [place] [id number] [place] [address] July, Closed nondisplaced fracture of scaphoid of left wrist, unspecified portion of scaphoid, initial encounter S62.002A [place] [address] [place] [id number] [place] [address] July, [place] [address] [place] [id number] [place] [address] July, Type 2 diabetes mellitus with diabetic neuropathy, unspecified E11.40 ; Emphysema, unspecified J43.9 ; Atherosclerotic heart disease of standing rock coronary artery without angina pectoris I25.10 ; [...] and Hospital discharge follow-up Z09 [place] [address] [place] [address] July, [place] [address] [place] [id number] [place] [address] July, Type 2 diabetes mellitus with diabetic neuropathy, unspecified E11.40 [place] [address] [place] [id number] [place] [address] July, Type 2 diabetes mellitus with diabetic neuropathy, unspecified E11.40 and Rheumatoid arthritis of left wrist without organ or system involvement with positive rheumatoid factor M05.732 [place] [address] [place] [id number] [place] [address] July, [facility] [address] [address] July, [facility] [address] [address] Jun, [facility] [address] [address] Jun, [facility] [address] [place] [address] Jun, 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 [facility] [address] [address] Jun, [facility] [address] [place] [address] Jun, 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 [place] [address] [place] [address] Jun, [facility] [address] [address] Jun, [facility] [address] [place] [address] Jun, Encounter for PPD test Z11.1 ; Rheumatoid arthritis with rheumatoid factor of right wrist without organ or systems involvement M05.731 and Rheumatoid arthritis of left wrist without organ or system involvement with positive rheumatoid factor M05.732 [place] [address] [address] Jun, Type 2 diabetes mellitus with diabetic neuropathy, unspecified E11.40 [facility] [address] [id number] [address] May, Type 2 diabetes mellitus with diabetic neuropathy, unspecified E11.40 ; Emphysema, unspecified J43.9 ; Rheumatoid arthritis with rheumatoid factor of right wrist without organ or systems involvement M05.731 ; Rheumatoid arthritis of left wrist without organ or system involvement with positive rheumatoid factor M05.732 and Chronic pain G89.29 [place] [address] [place] [id number] [place] [address] May, [place] [address] [address] May, Swelling of hand joint M25.449 ; Ankle swelling M25.473 and Joint pain M25.[address] [address] May, Emphysema, unspecified J43.9 [place] [address] [address] May, Hypertension I10 and Gastroenteritis K52.[address] [address] Apr, [address] [address] Apr, [address] [address] Apr, [address] [address] Apr, Type 2 diabetes mellitus with diabetic neuropathy, unspecified E11.40 ; Emphysema, unspecified J43.9 ; Atherosclerotic heart disease of standing rock coronary artery without angina pectoris I25.10 ; Migraine without aura, not intractable, with status migrainosus G43.001 ; Gastro-esophageal reflux disease without esophagitis K21.9 ; CAD (coronary artery disease) I25.10 ; Hypertension I10 ; Hyperlipemia E78.5 ; Allergic rhinitis J30.9 ; Neuropathy G62.9 ; Anxiety associated with depression F41.8 and Injury of left hand S69.92XA [place] [id number] [place] [address] Apr, [address] [address] Apr, [address] [place] [address] 04 Apr, 2015 Type 2 diabetes mellitus with diabetic neuropathy, unspecified E11.40 ; Emphysema, unspecified J43.9 ; Essential (primary) hypertension I10 ; Atherosclerotic heart disease of standing rock coronary artery without angina pectoris I25.10 ; Gastro-esophageal reflux disease without esophagitis K21.9 ; CAD (coronary artery disease) I25.10 ; Hyperlipemia E78.5 ; Hypertension I10 ; History of solitary pulmonary nodule Z87.898 ; Allergic rhinitis J30.9 ; Chronic pain G89.29 and Depression with anxiety F41.8 [place] [address] [address] Mar, [place] [address] [address] Mar, Allergic rhinitis J30.9 ; URI (upper respiratory infection) J06.9 and Other viral agents as the cause of diseases classified elsewhere B97.89 [facility] [facility] [address] [address] Feb, Acute nasopharyngitis [common cold] J00 and Acute diarrhea R19.[address] [address] Feb, Depression F32.[address] [address] Jan, Otitis media, right H66.91 [place] [address] [address] Jan, [place] [address] [address] Jan, Type 2 diabetes mellitus with diabetic neuropathy, unspecified E11.40 [facility] [address] [address] Jan, [place] [address] [address] Jan, Hyperlipemia E78.5 [place] [address] [address] [place] [id number] [place] [address] Jan, Type 2 diabetes mellitus with diabetic neuropathy, unspecified E11.40 ; Emphysema, unspecified J43.9 ; CAD (coronary artery disease) I25.10 and Hyperlipemia E78.5 [place] [address] [address] Dec, Allergic rhinitis J30.9 and Fungal infection B49 [place] [address] [address] Dec, [place] [address] [address] Dec, [place] [address] [address] Dec, Chest pain R07.9 ; CAD (coronary artery disease) I25.10 ; Hypertension I10 and Hyperlipemia E78.5 [place] [address] [address] Dec, Pain in thoracic spine M54.6 ; Gastro-esophageal reflux disease without esophagitis K21.9 ; Emphysema, unspecified J43.9 and Migraine without aura, not intractable, with status migrainosus G43.[address] [address] Dec, [place] [address] [address] Nov, Influenza vaccine administered V04.[address] [address] Nov, [place] [address] [address] Sep, [place] [address] [address] Sep, [place] [address] [facility] [id number] [place] [address] Sep, CAD (coronary artery disease) 414.00 and Diabetes type 2, uncontrolled 250.02 [facility] [address] [facility] [id number] [place] [address] Sep, CAD (coronary artery disease) 414.00 ; Diabetes type 2, uncontrolled 250.02 and Migraine 346.90 IMMUNIZATIONS No Known Immunizations SOCIAL HISTORY Never Assessed REASON FOR VISIT Medication PLAN OF CARE VITAL SIGNS MEDICATIONS Unknown [...] unspecified Medical History Atherosclerotic heart disease of [place] coronary artery without angina pectoris Medical History [...]
--- OUTSIDE RECORDS SUMMARY | 2018-08-23 17:30 | XMS REPORT ---
Author Author CHARAN GOMEZ Organization [facility] Address [address] [place] [address] Care Team Providers Care Counter Person Name Role Phone GOMEZ FARRAR Unavailable PROBLEMS Type Condition ICD9-CM Code JVN18-DT Code Onset Dates Condition Status SNOMED Code Problem Neuropathy G62.9 Active 460135252 Problem Other hammer toe(s) (acquired), right foot M20.41 Active 590286586 Problem Other hammer toe(s) (acquired), left foot M20.42 Active 14524732 Problem Anxiety F41.9 Active 39147252 Problem Type 2 diabetes mellitus with diabetic neuropathy, unspecified E11.40 Active 11742466 Problem Hammer toe of left foot M20.42 Active 647660019 Problem Hyperlipemia E78.5 Active 22121892 Problem Hypertension I10 Active 13234976 Problem COPD with exacerbation J44.1 Active 126168382481264 Problem Tobacco abuse Z72.0 Active 399989718 Problem COPD with acute exacerbation J44.1 Active 896223251 Problem Back pain of lumbar region with sciatica M54.40 Active 617481456 Problem Allergic rhinitis J30.9 Active 91433767 Problem Anxiety associated with depression F41.8 Active 308304309 Problem Gastro-esophageal reflux disease without esophagitis K21.9 Active 865108996 Problem Emphysema, unspecified J43.9 Active 28843689 Problem Rheumatoid arthritis involving multiple sites with positive rheumatoid factor M05.79 Active 946912064 Problem Primary insomnia F51.01 Active 8445795 Problem Chronic pain G89.29 Active 48624544 Problem Periodontitis K05.30 Active 98093009 Problem Vitamin D deficiency E55.9 Active 66419498 Problem OAB (overactive bladder) N32.81 Active 727567678 Problem Dependence on nocturnal oxygen therapy Z99.81 Active [id number] ALLERGIES No Information ENCOUNTERS Encounter Location Date Diagnosis [facility] [address] [facility] [id number] [address] Oct, [facility] [address], [place] [address] Aug, [facility] [id number] [place] [address] July, [facility] [id number] [place] [address] July, [facility] [id number] [place] [address] July, Chronic pain G89.29 [facility] [id number] [place] [address] July, [facility] [id number] [place] [address] July, Onychomycosis B35.1 ; Hammer toe of left foot M20.42 and Type 2 diabetes mellitus with diabetic neuropathy, unspecified E11.40 [facility] [address], [place] [address] July, [facility] [id number] [place] [address] July, Chronic pain G89.29 and Neuropathy G62.9 [facility] [address], [place] [address] July, [facility] [address], [place] [address] July, [facility] [address], [place] [address] Jun, [facility] [address] [id number] [address] Jun, Chronic pain G89.29 [facility] [address], [place] [address] Jun, [facility] [address] [place] [address] Jun, [facility] [id number] [place] [address] Jun, Visit for TB skin test Z11.1 [facility] [address], [place] [address] 16 Jun, 2017 [facility] [id number] [place] [address] Jun, [facility] [id number] [place] [address] Jun, Tobacco abuse Z72.0 and Rheumatoid arthritis involving multiple sites with positive rheumatoid factor M05.79 [facility] [id number] [place] [address] Jun, Anxiety F41.9 ; Acute non-recurrent maxillary sinusitis J01.00 and Chronic pain G89.29 [facility] [address] [place] [address] Jun, [facility] [id number] [place] [address] May, Rheumatoid arthritis involving multiple sites with positive rheumatoid factor M05.79 [facility] [id number] [place] [address] May, Chronic pain G89.29 [facility] [address], [place] [address] May, [facility] [address], [place] [address] May, [facility] [id number] [place] [address] May, [facility] [address], [place] [address] May, Type 2 diabetes mellitus with diabetic neuropathy, unspecified E11.40 [facility] [id number] [place] [address] May, Type 2 diabetes mellitus with diabetic neuropathy, unspecified E11.40 ; Emphysema, unspecified J43.9 ; Hypertension I10 ; Hyperlipemia E78.5 ; Vitamin D deficiency E55.9 ; Right medial knee pain M25.561 ; Controlled substance agreement signed Z79.899 ; Chronic pain G89.29 ; Allergic rhinitis J30.9 ; Anxiety associated with depression F41.8 ; Neuropathy G62.9 and Gastro- esophageal reflux disease without esophagitis K21.9 [facility] [id number] [place] [address] Apr, Chronic pain G89.29 [facility] [id number] [place] [address] 16 Apr, 2017 Other hammer toe(s) (acquired), left foot M20.42 ; Other hammer toe(s) (acquired), right foot M20.41 ; Type 2 diabetes mellitus with diabetic neuropathy, unspecified E11.40 and Onychomycosis B35.1 [facility] [id number] [place] [address] 2017 Gastro-esophageal reflux disease without esophagitis K21.9 [facility] [id number] [place] [address] Apr, Controlled substance agreement signed Z79.899 [facility] [id number] [place] [address] Mar, Chronic pain G89.29 [facility] [id number] [place] [address] Mar, Emphysema, unspecified J43.9 and Type 2 diabetes mellitus with diabetic neuropathy, unspecified E11.40 [facility] [id number] [place] [address] Mar, Dysuria R30.0 ; Vaginal candidiasis B37.3 and Acute nonintractable headache, unspecified headache type R51 [facility] [id number] [place] [address] Feb, Neuropathy G62.9 and Chronic pain G89.29 [facility] [id number] [place] [address] Feb, Gastro-esophageal reflux disease without esophagitis K21.9 [facility] [id number] [place] [address] Feb, [facility] [id number] [place] [address] Feb, Rheumatoid arthritis involving multiple sites with positive rheumatoid factor M05.79 and COPD with acute exacerbation J44.1 [facility] [id number] [place] [address] Feb, Vaginal odor N89.8 ; Vaginal irritation N89.8 ; Candidal dermatitis B37.2 and Screening breast examination Z12.31 [facility] [id number] [place] [address] Feb, [facility] [id number] [place] [address] Feb, [facility] [id number] [place] [address] Feb, [facility] [id number] [place] [address] Feb, COPD with exacerbation J44.1 ; Tobacco abuse counseling Z71.6 ; Tobacco abuse Z72.0 ; Rheumatoid arthritis involving multiple sites with positive rheumatoid factor M05.79 and Hyperlipemia E78.5 [facility] [id number] [place] [address] Feb, [facility] [address] [place] [id number] Jan, [facility] [id number] [place] [address] Jan, Chronic pain G89.29 [facility] [id number] [place] [id number] 27 Jan, 2017 Dental examination Z01.20 [facility] [id number] [place] [address] 19 Jan, 2017 Back pain of lumbar region with sciatica M54.40 [facility] [id number] [place] [address] 15 Jan, 2017 Acute bacterial conjunctivitis of both eyes H10.33 [facility] [id number] [place] [address] 02 Jan, 2017 Chronic pain G89.29 [facility] [id number] [place] [address] 31 Dec, 2016 Type 2 diabetes mellitus with diabetic neuropathy, unspecified E11.40 ; Hypertension I10 ; Hyperlipemia E78.5 ; Gastro-esophageal reflux disease without esophagitis K21.9 ; Anxiety associated with depression F41.8 ; Allergic rhinitis J30.9 ; Neuropathy G62.9 and Dependence on nocturnal oxygen therapy Z99.81 [facility] [id number] [place] [address] Dec, [facility] [id number] [place] [address] Dec, [facility] [id number] [place] [address] 09 Dec, 2016 Encounter for immunization Z23 [facility] [id number] [place] [address] 05 Dec, 2016 Type 2 diabetes mellitus with diabetic neuropathy, unspecified E11.40 and Chronic pain G89.29 [facility] [id number] [place] [address] 11 Nov, 2016 Gastro-esophageal reflux disease without esophagitis K21.9 [facility] [id number] [place] [address] Nov, Peripheral edema R60.9 and Chest pain in adult R07.9 [facility] [id number] [place] [address] 07 Nov, 2016 Chronic pain G89.29 [facility] [id number] [place] [address] 31 Oct, 2016 [facility] [id number] [place] [address] Oct, [facility] [id number] [place] [address] 17 Oct, 2016 Rheumatoid arthritis with rheumatoid factor of right wrist without organ or systems involvement M05.731 [facility] [address] [address] 15 Oct, 2016 [facility] [id number] [place] [address] Oct, Acute exacerbation of chronic obstructive pulmonary disease (COPD) J44.1 and Canker sore K12.0 [facility] [id number] [place] [address] Oct, [facility] [id number] [place] [address] Oct, [facility] [id number] [place] [address] Oct, Chronic pain G89.29 [facility] [id number] [place] [phone] Oct, Dental examination Z01.20 [facility] [id number] [place] [address] Oct, Dental examination Z01.20 and Periodontitis K05.30 [facility] [id number] [place] [id number] Oct, Dental examination Z01.20 [facility] [id number] [place] [address] Sep, Abscess L02.91 [facility] [address], [place] [address] Sep, Dental examination Z01.20 [facility] [id number] [place] [address] Sep, [facility] [address] [id number] Sep, Dental examination Z01.20 and Dental caries K02.9 [facility] [id number] [place] [address] Sep, Primary insomnia F51.01 and Anxiety associated with depression F41.8 [facility] [id number] [place] [address] Sep, Rheumatoid arthritis with rheumatoid factor of right wrist without organ or systems involvement M05.731 [facility] [id number] [place] [address] Sep, Chronic pain G89.29 [facility] [id number] [place] [address] Sep, Type 2 diabetes mellitus with diabetic neuropathy, unspecified E11.40 ; Emphysema, unspecified J43.9 ; Gastro-esophageal reflux disease without esophagitis K21.9 ; Hypertension I10 ; Hyperlipemia E78.5 ; Anxiety associated with depression F41.8 ; Chronic pain G89.29 ; Vitamin D deficiency E55.9 and Primary insomnia F51.01 [facility] [id number] [place] [address] 16 Aug, 2016 Anxiety associated with depression F41.8 [facility] [id number] [place] [address] Aug, Chronic pain G89.29 and Neuropathy G62.9 [facility] [address] [place] [address] Aug, Type 2 diabetes mellitus with diabetic neuropathy, unspecified E11.40 ; Rheumatoid arthritis involving multiple sites with positive rheumatoid factor M05.79 ; Vitamin D deficiency E55.9 ; Anxiety associated with depression F41.8 and Primary insomnia F51.01 [facility] [address] [address] July, Emphysema, unspecified J43.9 [facility] [address] [address] July, Allergic rhinitis J30.9 [facility] [address] [address] July, Allergic rhinitis J30.9 ; Emphysema, unspecified J43.9 and Rheumatoid arthritis with rheumatoid factor of right wrist without organ or systems involvement M05.731 [facility] [address] [address] July, Neuropathy G62.9 and Chronic pain G89.29 [facility] [address] [address] July, Rheumatoid arthritis involving multiple sites with positive rheumatoid factor M05.79 [facility] [address] [address] Jun, [facility] [address] [address] Jun, Neuropathy G62.9 and Chronic pain G89.29 [facility] [address] [address] May, Neuropathy G62.9 and Chronic pain G89.29 [facility] [id number] [place] [address] May, [facility] [address] [address] May, [facility] [id number] [place] [address] May, Type 2 diabetes mellitus with diabetic [...] system involvement with positive rheumatoid factor M05.732 [facility] [address] [address] 14 Apr, 2016 Chronic pain G89.29 [facility] [address] [address] Mar, Gastro-esophageal reflux disease without esophagitis K21.[address] [address] Mar, [address] [address] Mar, Rheumatoid arthritis with rheumatoid factor of right wrist without organ or systems involvement M05.731 [facility] [address] [address] Mar, Chronic pain G89.29 [facility] [address] [address] Feb, Hyperlipemia E78.5 [facility] [address] [address] Feb, Abnormal breath sounds R06.89 ; COPD with exacerbation J44.1 and Fatigue, unspecified type R53.[address] [address] Feb, Neuropathy G62.9 ; Abnormal lung sounds R09.89 and Bronchitis J40 [facility] [address] [address] Feb, Bronchitis J40 [facility] [facility] [address], [place] [address] Feb, Chronic pain G89.29 [facility] [id number] [place] [address] Jan, Type 2 diabetes mellitus with diabetic neuropathy, unspecified E11.40 ; Rheumatoid arthritis with rheumatoid factor of right wrist without organ or systems involvement M05.731 and Hyperlipemia E78.5 [facility] [address] [place] [address] Jan, Rheumatoid arthritis with rheumatoid factor of right wrist without organ or systems involvement M05.731 [facility] [address] [place] [address] Jan, De Quervain's disease (radial styloid tenosynovitis) M65.4 ; Closed nondisplaced fracture of scaphoid of left wrist, unspecified portion of scaphoid, initial encounter S62.002A and Peripheral tear of medial meniscus of left knee, unspecified whether old or current tear, initial encounter S83.222A [facility] [address] [place] [address] Jan, Hypertension I10 ; Type 2 diabetes mellitus with diabetic neuropathy, unspecified E11.40 ; Hyperlipemia E78.5 ; Allergic rhinitis J30.9 ; Neuropathy G62.9 ; Rheumatoid arthritis with rheumatoid factor of right wrist without organ or systems involvement M05.731 ; Acute non-recurrent maxillary sinusitis J01.00 and Chronic pain G89.29 [facility] [address], [place] [address] Dec, [facility] [id number] [place] [address] Dec, [facility] [address] [place] [address] Dec, Type 2 diabetes mellitus with diabetic neuropathy, unspecified E11.40 ; Emphysema, unspecified J43.9 ; Gastro-esophageal reflux disease without esophagitis K21.9 ; Hypertension I10 ; Hyperlipemia E78.5 ; Rheumatoid arthritis with rheumatoid factor of right wrist without organ or systems involvement M05.731 ; Elevated white blood cell count, unspecified D72.829 ; Acute non- recurrent frontal sinusitis J01.10 and Chronic pain G89.29 [facility] [id number] [place] [address] Nov, [facility] [address] [address] Nov, Elevated white blood cell count, unspecified D72.829 ; Encounter for immunization Z23 ; Rheumatoid arthritis with rheumatoid factor of right wrist without organ or systems involvement M05.731 ; Injury of left hand S69.92XA ; Pain in left knee M25.562 and Other chronic pain G89.29 [facility] [address] [address] Nov, [facility] [address] [address] Nov, [facility] [address] [address] Oct, [facility] [address] [address] Oct, Hyperlipemia E78.5 [facility] [address] [address] Oct, [facility] [address] [address] Oct, Type 2 diabetes mellitus with diabetic neuropathy, unspecified E11.40 ; Neuropathy G62.9 ; Hypertension I10 ; Chronic pain G89.29 and Hyperlipemia E78.5 [facility] [address] [address] Oct, Emphysema, unspecified J43.9 and Rheumatoid arthritis of left wrist without organ or system involvement with positive rheumatoid factor M05.732 [facility] [id number] [place] [address] Sep, Chronic pain syndrome G89.4 [facility] [id number] [place] [address] Sep, [facility] [id number] [place] [address] Sep, [facility] [id number] [place] [address] Sep, Closed nondisplaced fracture of scaphoid of left wrist, unspecified portion of scaphoid, initial encounter S62.002A [facility] [id number] [place] [address] Sep, Type 2 diabetes mellitus with diabetic neuropathy, unspecified E11.40 ; Hypertension I10 ; Hyperlipemia E78.5 and Acute non-recurrent maxillary sinusitis J01.00 [facility] [id number] [place] [address] Sep, [facility] [id number] [place] [address] Sep, [facility] [id number] [place] [address] Sep, [facility] [id number] [place] [address] Sep, [facility] [id number] [place] [address] Aug, Epigastric pain R10.13 and Right upper quadrant pain R10.11 [facility] [id number] [place] [address] Aug, Closed nondisplaced fracture of scaphoid of left wrist, unspecified portion of scaphoid, initial encounter S62.002A [facility] [id number] [place] [address] Aug, [facility] [id number] [place] [address] Aug, [facility] [id number] [place] [address] Aug, Shortness of breath R06.02 ; Epigastric pain R10.13 and Injury of left lower arm, initial encounter S59.912A [facility] [id number] [place] [address] Aug, 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, unspecified vessel or lesion type I25.119 ; Pulmonary emphysema, unspecified emphysema type J43.9 and Snoring R06.83 [facility] [id number] [place] [address] Aug, [facility] [id number] [place] [address] Aug, Emphysema, unspecified J43.9 ; Atherosclerotic heart disease of kake coronary artery without angina pectoris I25.10 and Hypertension I10 [facility] [id number] [place] [address] July, [facility] [id number] [place] [address] July, Closed nondisplaced fracture of scaphoid of left wrist, unspecified portion of scaphoid, initial encounter S62.002A [facility] [id number] [place] [id number] July, [place] [address] [id number] [place] [id number] July, Type 2 diabetes mellitus with diabetic neuropathy, unspecified E11.40 ; Emphysema, unspecified J43.9 ; Atherosclerotic heart disease of [place] coronary artery without angina pectoris I25.10 ; [...] agents L24.89 and Hospital discharge follow-up Z09 [facility] [id number] [place] [phone] July, [facility] [id number] [place] [phone] July, Type 2 diabetes mellitus with diabetic neuropathy, unspecified E11.40 [facility] [id number] [place] [phone] July, Type 2 diabetes mellitus with diabetic neuropathy, unspecified E11.40 and Rheumatoid arthritis of left wrist without organ or system involvement with positive rheumatoid factor M05.732 [facility] [address] [id number] [place] [phone] July, [facility] [id number] [place] [phone] July, [facility] [id number] [place] [phone] Jun, [facility] [id number] [place] [phone] Jun, [facility] [id number] [place] [phone] Jun, 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 [facility] [id number] [place] [phone] Jun, [facility] [id number] [place] [address] [id number] Jun, 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 [facility] [id number] [place] [address] Jun, [facility] [id number] [place] [address] Jun, [facility] [address] [address] Jun, Encounter for PPD test Z11.1 ; Rheumatoid arthritis with rheumatoid factor of right wrist without organ or systems involvement M05.731 and Rheumatoid arthritis of left wrist without organ or system involvement with positive rheumatoid factor M05.732 [place] [address] [address] Jun, Type 2 diabetes mellitus with diabetic neuropathy, unspecified E11.40 [place] [address] [address] May, Type 2 diabetes mellitus with diabetic neuropathy, unspecified E11.40 ; Emphysema, unspecified J43.9 ; Rheumatoid arthritis with rheumatoid factor of right wrist without organ or systems involvement M05.731 ; Rheumatoid arthritis of left wrist without organ or system involvement with positive rheumatoid factor M05.732 and Chronic pain G89.29 [place] [address] [address] May, [place] [address] [address] May, Swelling of hand joint M25.449 ; Ankle swelling M25.473 and Joint pain M25.50 [place] [address] [address] May, Emphysema, unspecified J43.9 [place] [address] [address] May, Gastroenteritis K52.9 and Hypertension I10 [place] [address] [address] Apr, [place] [address] [address] Apr, [place] [address] [address] Apr, [place] [address] [address] Apr, Type 2 diabetes mellitus with diabetic neuropathy, unspecified E11.40 ; Emphysema, unspecified J43.9 ; Atherosclerotic heart disease of [place] coronary artery without angina pectoris I25.10 ; Migraine without aura, not intractable, with status migrainosus G43.001 ; Gastro-esophageal reflux disease without esophagitis K21.9 ; CAD (coronary artery disease) I25.10 ; Hypertension I10 ; Hyperlipemia E78.5 ; Allergic rhinitis J30.9 ; Neuropathy G62.9 ; Anxiety associated with depression F41.8 and Injury of left hand S69.92XA [address] [address] Apr, [address] [address] Apr, [address] [address] Apr, Type 2 diabetes mellitus with diabetic neuropathy, unspecified E11.40 ; Emphysema, unspecified J43.9 ; Essential (primary) hypertension I10 ; Atherosclerotic heart disease of [place] coronary artery without angina pectoris I25.10 ; Gastro-esophageal reflux disease without esophagitis K21.9 ; CAD (coronary artery disease) I25.10 ; Hyperlipemia E78.5 ; Hypertension I10 ; History of solitary pulmonary nodule Z87.898 ; Allergic rhinitis J30.9 ; Chronic pain G89.29 and Depression with anxiety F41.8 [place] [id number] [place] [address] Mar, [address] [address] Mar, Allergic rhinitis J30.9 ; URI (upper respiratory infection) J06.9 and Other viral agents as the cause of diseases classified elsewhere B97.89 [facility] [id number] [place] [address] Feb, Acute nasopharyngitis [common cold] J00 and Acute diarrhea R19.[id number] [place] [address] Feb, Depression F32.9 [place] [address] [address] Jan, Otitis media, right H66.91 [place] [address] [address] Jan, [place] [address] [address] Jan, Type 2 diabetes mellitus with diabetic neuropathy, unspecified E11.40 [place] [address] [address] Jan, [place] [address] [address] Jan, Hyperlipemia E78.5 [place] [address] [address] Jan, Type 2 diabetes mellitus with diabetic neuropathy, unspecified E11.40 ; Emphysema, unspecified J43.9 ; CAD (coronary artery disease) I25.10 and Hyperlipemia E78.5 [place] [id number] [place] [address] Dec, Allergic rhinitis J30.9 and Fungal infection B49 [place] [id number] [place] [address] Dec, [place] [id number] [place] [address] Dec, [place] [address] [address] Dec, Chest pain R07.9 ; CAD (coronary artery disease) I25.10 ; Hypertension I10 and Hyperlipemia E78.5 [place] [id number] [place] [address] 08 Dec, 2014 Pain in thoracic spine M54.6 ; Gastro-esophageal reflux disease without esophagitis K21.9 ; Emphysema, unspecified J43.9 and Migraine without aura, not intractable, with status migrainosus G43.001 [place] [id number] [place] [address] Dec, [place] [id number] [place] [address] Nov, Influenza vaccine administered V04.81 [place] [address] [address] Nov, [place] [address] [address] Sep, [place] [address] [address] Sep, [place] [address] [address] Sep, CAD (coronary artery disease) 414.00 and Diabetes type 2, uncontrolled 250.02 [place] [id number] [place] [address] Sep, CAD (coronary artery disease) 414.00 ; [...] Medical History Cardiac stents July 2010 post MA-stent to LAD Medical History Rheumatoid Arthritis Medical History 04/2016---Echo- 60%//mild hypertrophy at the base of the septum, mild mitral regurg/ mild tricuspid regurg. PAP about 10-15 mmHg Medical History 04/2016------Normal Lexiscan Medical History Elevated white blood cell count, unspecified Medical History Atherosclerotic heart disease of [place] coronary artery without angina pectoris Medical History [...]
--- OUTSIDE RECORDS SUMMARY | 2018-08-23 17:31 | XMS REPORT ---
Author [facility] Address [address] [place] [address] Care Team Providers Care Mattress Specialist Name Role Phone DELEONCLAU Moran Unavailable PROBLEMS Type Condition ICD9-CM Code TSF05-XH Code Onset Dates Condition Status SNOMED Code Problem Primary insomnia F51.01 Active 3712990 Problem Neuropathy G62.9 Active 455409354 Problem Periodontitis K05.30 Active 93284464 Problem Atherosclerotic heart disease of [place] coronary artery without angina pectoris I25.10 Active 870713201286117 Problem Vitamin D deficiency E55.9 Active 86274143 Problem Hammer toe of left foot M20.42 Active 132002775 Problem Other hammer toe(s) (acquired), left foot M20.42 Active 86772617 Problem Dependence on nocturnal oxygen therapy Z99.81 Active 16589298159733 Problem Tobacco abuse Z72.0 Active 594112628 Problem Other hammer toe(s) (acquired), right foot M20.41 Active 631154136 Problem Gastro-esophageal reflux disease without esophagitis K21.9 Active 904897271 Problem Emphysema, unspecified J43.9 Active 05358625 Problem Hypertension I10 Active 33689891 Problem Hyperlipemia E78.5 Active 70811227 Problem Anxiety associated with depression F41.8 Active 399323369 Problem Chronic pain G89.29 Active 68336117 Problem Type 2 diabetes mellitus with diabetic neuropathy, unspecified E11.40 Active 25028942 Problem OAB (overactive bladder) N32.81 Active 426147314 Problem Allergic rhinitis J30.9 Active 00840038 Problem Rheumatoid arthritis involving multiple sites with positive rheumatoid factor M05.79 Active 939322960 ALLERGIES No Information ENCOUNTERS Encounter Location Date Diagnosis [facility] [address] [facility] [id number] [address] Oct, [facility] [address] [facility] [id number] [place] [address] Aug, Type 2 diabetes mellitus with diabetic neuropathy, unspecified E11.40 ; Hypertension I10 ; Hyperlipemia E78.5 ; Gastro-esophageal reflux disease without esophagitis K21.9 ; Emphysema, unspecified J43.9 ; Anxiety associated with depression F41.8 ; Vitamin D deficiency E55.9 ; Chronic pain G89.29 ; Tobacco abuse Z72.0 ; Overweight (BMI 25.0-29.9) E66.3 ; Atherosclerotic heart disease of [place] coronary artery without angina pectoris I25.10 ; OAB (overactive bladder) N32.81 and Primary insomnia F51.01 [place] [address] [address] July, [place] [address] [address] July, [place] [address] [address] July, Chronic pain G89.29 [place] [address] [place] [id number] [place] [address] July, [place] [address] [address] July, Onychomycosis B35.1 ; Hammer toe of left foot M20.42 and Type 2 diabetes mellitus with diabetic neuropathy, unspecified E11.40 [place] [address] [place] [id number] [place] [address] July, [place] [address] [place] [address] [place] [address] July, Chronic pain G89.29 and Neuropathy G62.9 [place] [address] [address] July, [place] [address] [place] [address] [place] [address] July, [place] [address] [address] Jun, [facility] [address] [place] [address] Jun, Chronic pain G89.29 [facility] [address] [place] [address] Jun, [facility] [address] [place] [address] Jun, [facility] [address] [place] [address] [place] [address] Jun, Visit for TB skin test Z11.1 [facility] [address] [place] [id number] [place] [address] 16 Jun, 2017 [facility] [address] [place] [address] [place] [address] Jun, [facility] [address] [place] [address] [place] [address] Jun, Tobacco abuse Z72.0 and Rheumatoid arthritis involving multiple sites with positive rheumatoid factor M05.79 [facility] [address] [place] [address] [place] [address] Jun, Anxiety F41.9 ; Acute non-recurrent maxillary sinusitis J01.00 and Chronic pain G89.29 [facility] [address] [address] Jun, [facility] [address] [place] [address] May, Rheumatoid arthritis involving multiple sites with positive rheumatoid factor M05.79 [facility] [address] [place] [address] [place] [address] May, Chronic pain G89.29 [facility] [address] [place] [address] May, [facility] [address] [place] [address] [place] [address] May, [place] [address] [address] May, [place] [address] [place] [address] [place] [address] May, Type 2 diabetes mellitus with diabetic neuropathy, unspecified E11.40 [place] [address] [place] [address] [place] [address] May, Type 2 diabetes mellitus with diabetic neuropathy, unspecified E11.40 ; Emphysema, unspecified J43.9 ; Hypertension I10 ; Hyperlipemia E78.5 ; Vitamin D deficiency E55.9 ; Right medial knee pain M25.561 ; Controlled substance agreement signed Z79.899 ; Chronic pain G89.29 ; Allergic rhinitis J30.9 ; Anxiety associated with depression F41.8 ; Neuropathy G62.9 and Gastro- esophageal reflux disease without esophagitis K21.9 [place] [address] [place] [address] [place] [address] Apr, Chronic pain G89.29 [place] [address] [place] [address] Apr, Other hammer toe(s) (acquired), left foot M20.42 ; Other hammer toe(s) (acquired), right foot M20.41 ; Type 2 diabetes mellitus with diabetic neuropathy, unspecified E11.40 and Onychomycosis B35.1 [place] [address] [place] [address] 2017 Gastro-esophageal reflux disease without esophagitis K21.9 [place] [address] [address] Apr, Controlled substance agreement signed Z79.899 [place] [address] [place] [address] Mar, Chronic pain G89.29 [place] [address] [place] [address] [place] [address] Mar, Emphysema, unspecified J43.9 and Type 2 diabetes mellitus with diabetic neuropathy, unspecified E11.40 [facility] [address] [place] [id number] [place] [address] Mar, Dysuria R30.0 ; Vaginal candidiasis B37.3 and Acute nonintractable headache, unspecified headache type R51 [place] [address] [place] [address] [place] [address] Feb, Neuropathy G62.9 and Chronic pain G89.29 [place] [address] [place] [address] [place] [address] Feb, Gastro-esophageal reflux disease without esophagitis K21.9 [place] [address] [place] [address] [place] [address] Feb, [place] [address] [address] Feb, Rheumatoid arthritis involving multiple sites with positive rheumatoid factor M05.79 and COPD with acute exacerbation J44.1 [place] [address] [place] [address] [place] [address] Feb, Vaginal odor N89.8 ; Vaginal irritation N89.8 ; Candidal dermatitis B37.2 and Screening breast examination Z12.31 [place] [address] [place] [address] [place] [address] Feb, [place] [address] [place] [address] [place] [address] Feb, [place] [address] [place] [address] [place] [address] Feb, [place] [address] [address] Feb, COPD with exacerbation J44.1 ; Tobacco abuse counseling Z71.6 ; Tobacco abuse Z72.0 ; Rheumatoid arthritis involving multiple sites with positive rheumatoid factor M05.79 and Hyperlipemia E78.5 [place] [address] [place] [address] [place] [address] Feb, [facility] [address] [place] [id number] [place] [id number] Jan, [facility] [address] [place] [address] [place] [address] Jan, Chronic pain G89.29 [facility] [address] [place] [address] [id number] [place] [phone] Jan, Dental examination Z01.20 [facility] [address] [place] [address] [place] [address] Jan, Back pain of lumbar region with sciatica M54.40 [facility] [address] [place] [address] [place] [address] Jan, Acute bacterial conjunctivitis of both eyes H10.33 [place] [address] [place] [address] [place] [address] Jan, Chronic pain G89.29 [place] [address] [place] [address] [place] [address] Dec, Type 2 diabetes mellitus with diabetic neuropathy, unspecified E11.40 ; Hypertension I10 ; Hyperlipemia E78.5 ; Gastro-esophageal reflux disease without esophagitis K21.9 ; Anxiety associated with depression F41.8 ; Allergic rhinitis J30.9 ; Neuropathy G62.9 and Dependence on nocturnal oxygen therapy Z99.81 [place] [address] [place] [address] Dec, [place] [address] [place] [address] [place] [address] Dec, [place] [address] [place] [address] [place] [address] Dec, Encounter for immunization Z23 [place] [address] [place] [address] [place] [address] Dec, Type 2 diabetes mellitus with diabetic neuropathy, unspecified E11.40 and Chronic pain G89.29 [facility] [address] [place] [address] [place] [address] 11 Nov, 2016 Gastro-esophageal reflux disease without esophagitis K21.9 [facility] [address] [address] 11 Nov, 2016 Peripheral edema R60.9 and Chest pain in adult R07.9 [facility] [address] [address] 07 Nov, 2016 Chronic pain G89.29 [facility] [address] [address] 31 Oct, 2016 [facility] [address] [address] 30 Oct, 2016 [facility] [address] [address] 17 Oct, 2016 Rheumatoid arthritis with rheumatoid factor of right wrist without organ or systems involvement M05.731 [facility] [address] [address] 15 Oct, 2016 [facility] [address] [place] [id number] [place] [address] 14 Oct, 2016 Acute exacerbation of chronic obstructive pulmonary disease (COPD) J44.1 and Canker sore K12.0 [facility] [address] [address] 14 Oct, 2016 [facility] [address] [place] [address] [place] [address] Oct, [facility] [address] [address] 09 Oct, 2016 Chronic pain G89.29 [facility] [address] [place] [id number] [place] [id number] 08 Oct, 2016 Dental examination Z01.20 [facility] [address] [address] Oct, Dental examination Z01.20 and Periodontitis K05.30 [facility] [address] [place] [phone] Oct, Dental examination Z01.20 [facility] [address], [place] [address] Sep, Abscess L02.91 [facility] [address] [place] [address] [place] [address] Sep, Dental examination Z01.20 [facility] [address] [place] [address] Sep, [facility] [address] [place] [id number] [place] [phone] Sep, Dental examination Z01.20 and Dental caries K02.9 [place] [address] [place] [address] [place] [address] Sep, Primary insomnia F51.01 and Anxiety associated with depression F41.8 [place] [address] [place] [address] [place] [address] Sep, Rheumatoid arthritis with rheumatoid factor of right wrist without organ or systems involvement M05.731 [place] [address] [place] [address] Sep, Chronic pain G89.29 [place] [address] [place] [address] [place] [address] Sep, Type 2 diabetes mellitus with diabetic neuropathy, unspecified E11.40 ; Emphysema, unspecified J43.9 ; Gastro-esophageal reflux disease without esophagitis K21.9 ; Hypertension I10 ; Hyperlipemia E78.5 ; Anxiety associated with depression F41.8 ; Chronic pain G89.29 ; Vitamin D deficiency E55.9 and Primary insomnia F51.01 [place] [address], [place] [address] Aug, Anxiety associated with depression F41.8 [place] [address] [place] [address] [place] [address] 13 Aug, 2016 Chronic pain G89.29 and Neuropathy G62.9 [place] [address] [place] [address] [place] [address] Aug, Type 2 diabetes mellitus with diabetic neuropathy, unspecified E11.40 ; Rheumatoid arthritis involving multiple sites with positive rheumatoid factor M05.79 ; Vitamin D deficiency E55.9 ; Anxiety associated with depression F41.8 and Primary insomnia F51.01 [place] [address] [place] [address] [place] [address] July, Emphysema, unspecified J43.9 [place] [address] [place] [address] [place] [address] July, Allergic rhinitis J30.9 [place] [address] [address] July, Allergic rhinitis J30.9 ; Emphysema, unspecified J43.9 and Rheumatoid arthritis with rheumatoid factor of right wrist without organ or systems involvement M05.731 [place] [address] [address] July, Neuropathy G62.9 and Chronic pain G89.29 [place] [address] [place] [address] [place] [address] July, Rheumatoid arthritis involving multiple sites with positive rheumatoid factor M05.79 [place] [address] [place] [address] [place] [address] Jun, [place] [address] [place] [address] [place] [address] Jun, Neuropathy G62.9 and Chronic pain G89.29 [place] [address] [place] [address] [place] [address] May, Neuropathy G62.9 and Chronic pain G89.29 [place] [address] [address] May, [place] [address] [place] [address] [place] [address] May, [place] [address] [address] May, Type 2 diabetes mellitus with diabetic [...] system involvement with positive rheumatoid factor M05.732 [place] [address] [place] [address] [place] [address] Apr, Chronic pain G89.29 [place] [address] [place] [address] [place] [address] Mar, Gastro-esophageal reflux disease without esophagitis K21.9 [place] [address] [place] [address] [place] [address] Mar, [place] [address] [place] [address] [place] [address] Mar, Rheumatoid arthritis with rheumatoid factor of right wrist without organ or systems involvement M05.731 [place] [address] [place] [address] [place] [address] Mar, Chronic pain G89.29 [place] [address] [place] [address] [place] [address] Feb, Hyperlipemia E78.5 [place] [address] [place] [address] [place] [address] Feb, Abnormal breath sounds R06.89 ; COPD with exacerbation J44.1 and Fatigue, unspecified type R53.83 [facility] [address] [place] [address] Feb, Neuropathy G62.9 ; Abnormal lung sounds R09.89 and Bronchitis J40 [facility] [address] [place] [address] [place] [address] Feb, Bronchitis J40 [facility] [address] [address] Feb, Chronic pain G89.29 [place] [address] [address] Jan, Type 2 diabetes mellitus with diabetic neuropathy, unspecified E11.40 ; Rheumatoid arthritis with rheumatoid factor of right wrist without organ or systems involvement M05.731 and Hyperlipemia E78.5 [place] [address] [address] Jan, Rheumatoid arthritis with rheumatoid factor of right wrist without organ or systems involvement M05.731 [place] [address] [address] Jan, De Quervain's disease (radial styloid tenosynovitis) M65.4 ; Closed nondisplaced fracture of scaphoid of left wrist, unspecified portion of scaphoid, initial encounter S62.002A and Peripheral tear of medial meniscus of left knee, unspecified whether old or current tear, initial encounter S83.222A [place] [address] [place] [address] [place] [address] Jan, Hypertension I10 ; Type 2 diabetes mellitus with diabetic neuropathy, unspecified E11.40 ; Hyperlipemia E78.5 ; Allergic rhinitis J30.9 ; Neuropathy G62.9 ; Rheumatoid arthritis with rheumatoid factor of right wrist without organ or systems involvement M05.731 ; Acute non-recurrent maxillary sinusitis J01.00 and Chronic pain G89.29 [place] [address] [place] [address] [place] [address] Dec, [place] [address] [place] [address] [place] [address] Dec, [place] [address] [address] Dec, Type 2 diabetes mellitus with diabetic neuropathy, unspecified E11.40 ; Emphysema, unspecified J43.9 ; Gastro-esophageal reflux disease without esophagitis K21.9 ; Hypertension I10 ; Hyperlipemia E78.5 ; Rheumatoid arthritis with rheumatoid factor of right wrist without organ or systems involvement M05.731 ; Elevated white blood cell count, unspecified D72.829 ; Acute non- recurrent frontal sinusitis J01.10 and Chronic pain G89.29 [place] [address] [place] [address] [place] [address] Nov, [place] [address] [place] [address] [place] [address] Nov, Elevated white blood cell count, unspecified D72.829 ; Encounter for immunization Z23 ; Rheumatoid arthritis with rheumatoid factor of right wrist without organ or systems involvement M05.731 ; Injury of left hand S69.92XA ; Pain in left knee M25.562 and Other chronic pain G89.29 [place] [address] [place] [place] [address] Nov, [place] [address] [place] [address] Nov, [place] [address] [place] [address] [place] [address] Oct, [place] [address] [place] [address] Oct, Hyperlipemia E78.5 [place] [address] [place] [address] Oct, [place] [address] [place] [address] Oct, Type 2 diabetes mellitus with diabetic neuropathy, unspecified E11.40 ; Neuropathy G62.9 ; Hypertension I10 ; Chronic pain G89.29 and Hyperlipemia E78.5 [place] [address] [place] [address] Oct, Emphysema, unspecified J43.9 and Rheumatoid arthritis of left wrist without organ or system involvement with positive rheumatoid factor M05.732 [place] [address] [place] [address] Sep, Chronic pain syndrome G89.4 [place] [address] [address] Sep, [place] [address] [place] [address] Sep, [place] [address] [place] [address] Sep, Closed nondisplaced fracture of scaphoid of left wrist, unspecified portion of scaphoid, initial encounter S62.002A [place] [address] [address] [place] [address] Sep, Type 2 diabetes mellitus with diabetic neuropathy, unspecified E11.40 ; Hypertension I10 ; Hyperlipemia E78.5 and Acute non-recurrent maxillary sinusitis J01.00 [place] [address] [place] [address] Sep, [place] [address] [address] [place] [address] Sep, [facility] [address] [place] [address] Sep, [place] [address] [address] [place] [address] Sep, [facility] [address] [place] [address] Aug, Epigastric pain R10.13 and Right upper quadrant pain R10.11 [place] [address] [address] 30 Aug, 2015 Closed nondisplaced fracture of scaphoid of left wrist, unspecified portion of scaphoid, initial encounter S62.002A [place] [address], [place] [address] Aug, [place] [address] [place] [address] Aug, [facility] [address] [place] [address] Aug, Shortness of breath R06.02 ; Epigastric pain R10.13 and Injury of left lower arm, initial encounter S59.912A [place] [address] [place] [address] 07 Aug, 2015 Coronary artery disease involving [place] heart with angina pectoris, unspecified vessel or lesion type I25.119 ; Pulmonary emphysema, unspecified emphysema type J43.9 and Snoring R06.83 [place] [address] [place] [address] Aug, [place] [address] [place] [address] 03 Aug, 2015 Emphysema, unspecified J43.9 ; Atherosclerotic heart disease of [place] coronary artery without angina pectoris I25.10 and Hypertension I10 [place] [address] [place] [address] July, [place] [address] [place] [address] July, Closed nondisplaced fracture of scaphoid of left wrist, unspecified portion of scaphoid, initial encounter S62.002A [place] [address], [place] [address] July, [place] [address] [place] [address] July, Type 2 diabetes mellitus with diabetic neuropathy, unspecified E11.40 ; Emphysema, unspecified J43.9 ; Atherosclerotic heart disease of [place] coronary artery without angina pectoris I25.10 ; [...] agents L24.89 and Hospital discharge follow-up Z09 [place] [address] [address] July, [place] [address] [address] July, Type 2 diabetes mellitus with diabetic neuropathy, unspecified E11.40 [place] [address] [address] July, Type 2 diabetes mellitus with diabetic neuropathy, unspecified E11.40 and Rheumatoid arthritis of left wrist without organ or system involvement with positive rheumatoid factor M05.732 [place] [address] [address] July, [place] [address] [address] [place] [id number] [place] [id number] July, [place] [address] [address] [place] [id number] [place] [id number] Jun, [place] [address] [address] [place] [id number] [place] [id number] Jun, [place] [address] [address] Jun, 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 [place] [address] [address] [place] [id number] [place] [id number] Jun, [place] [address] [address] Jun, 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 [place] [address] [address] [place] [id number] [place] [id number] Jun, [place] [address] [address] [place] [id number] [place] [address] Jun, [place] [address] [address] [place] [id number] [place] [address] Jun, Encounter for PPD test Z11.1 ; Rheumatoid arthritis with rheumatoid factor of right wrist without organ or systems involvement M05.731 and Rheumatoid arthritis of left wrist without organ or system involvement with positive rheumatoid factor M05.732 [place] [address] [address] [place] [id number] [place] [address] Jun, Type 2 diabetes mellitus with diabetic neuropathy, unspecified E11.40 [place] [address] [address] [place] [id number] [place] [address] May, Type 2 diabetes mellitus with diabetic neuropathy, unspecified E11.40 ; Emphysema, unspecified J43.9 ; Rheumatoid arthritis with rheumatoid factor of right wrist without organ or systems involvement M05.731 ; Rheumatoid arthritis of left wrist without organ or system involvement with positive rheumatoid factor M05.732 and Chronic pain G89.29 [place] [address] [address] [place] [id number] [place] [address] May, [place] [address] [address] [place] [id number] [place] [address] May, Swelling of hand joint M25.449 ; Ankle swelling M25.473 and Joint pain M25.50 [place] [address] [address] [place] [id number] [place] [address] May, Emphysema, unspecified J43.9 [place] [address] [place] [id number] [place] [address] May, Gastroenteritis K52.9 and Hypertension I10 [place] [address] [address] [place] [id number] [place] [address] Apr, [place] [address] [address] [place] [id number] [place] [phone] Apr, [place] [address] [place] [id number] [place] [address] Apr, [place] [address] [address] [place] [id number] [place] [address] Apr, Type 2 diabetes mellitus with diabetic neuropathy, unspecified E11.40 ; Emphysema, unspecified J43.9 ; Atherosclerotic heart disease of [place] coronary artery without angina pectoris I25.10 ; Migraine without aura, not intractable, with status migrainosus G43.001 ; Gastro-esophageal reflux disease without esophagitis K21.9 ; CAD (coronary artery disease) I25.10 ; Hypertension I10 ; Hyperlipemia E78.5 ; Allergic rhinitis J30.9 ; Neuropathy G62.9 ; Anxiety associated with depression F41.8 and Injury of left hand S69.92XA [address] [address] Apr, [address] [address] Apr, [place] [address] [address] [place] [id number] [place] [address] Apr, Type 2 diabetes mellitus with diabetic neuropathy, unspecified E11.40 ; Emphysema, unspecified J43.9 ; Essential (primary) hypertension I10 ; Atherosclerotic heart disease of [place] coronary artery without angina pectoris I25.10 ; Gastro-esophageal reflux disease without esophagitis K21.9 ; CAD (coronary artery disease) I25.10 ; Hyperlipemia E78.5 ; Hypertension I10 ; History of solitary pulmonary nodule Z87.898 ; Allergic rhinitis J30.9 ; Chronic pain G89.29 and Depression with anxiety F41.8 [place] [id number] [place] [phone] Mar, [address] [address] Mar, Allergic rhinitis J30.9 ; URI (upper respiratory infection) J06.9 and Other viral agents as the cause of diseases classified elsewhere B97.89 [facility] [address] [address] Feb, Acute nasopharyngitis [common cold] J00 and Acute diarrhea R19.7 [place] [address] [address] Feb, Depression F32.9 [place] [address] [address] Jan, Otitis media, right H66.91 [place] [address] [address] Jan, [place] [address] [address] Jan, Type 2 diabetes mellitus with diabetic neuropathy, unspecified E11.40 [place] [address] [address] Jan, [place] [address] [address] Jan, Hyperlipemia E78.5 [place] [address] [address] Jan, Type 2 diabetes mellitus with diabetic neuropathy, unspecified E11.40 ; Emphysema, unspecified J43.9 ; CAD (coronary artery disease) I25.10 and Hyperlipemia E78.5 [place] [address] [address] Dec, Allergic rhinitis J30.9 and Fungal infection B49 [place] [address] [address] Dec, [place] [address] [address] Dec, [place] [address] [address] [place] [id number] [place] [address] Dec, Chest pain R07.9 ; CAD (coronary artery disease) I25.10 ; Hypertension I10 and Hyperlipemia E78.5 [place] [address] [place] [id number] [place] [address] Dec, Pain in thoracic spine M54.6 ; Gastro-esophageal reflux disease without esophagitis K21.9 ; Emphysema, unspecified J43.9 and Migraine without aura, not intractable, with status migrainosus G43.001 [place] [address] [address] Dec, [place] [address] [address] Nov, Influenza vaccine administered V04.[address] [address] Nov, [place] [address] [address] Sep, [address] [address] Sep, [address] [address] Sep, CAD (coronary artery disease) 414.00 and Diabetes type 2, uncontrolled [address] [address] Sep, CAD (coronary artery disease) 414.00 ; Diabetes type 2, uncontrolled 250.02 and Migraine 346.90 IMMUNIZATIONS No Known Immunizations SOCIAL HISTORY Never Assessed REASON FOR VISIT Controlled Med Refill PLAN OF CARE VITAL SIGNS MEDICATIONS Medication Instructions Dosage Frequency Start Date End Date Duration Status Hydrocodone-Acetaminophen 7.5-325 MG Orally every 6 hours as needed 1 tablet as needed Mar, 28 days Active RESULTS No Results PROCEDURES [...] unspecified Medical History Atherosclerotic heart disease of [place] coronary artery without angina pectoris Medical History [...]
--- OUTSIDE RECORDS SUMMARY | 2018-08-23 17:32 | XMS REPORT ---
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 Name Role Phone CLAU DELEON Unavailable PROBLEMS Type Condition ICD9-CM Code GUB07-PX Code Onset Dates Condition Status SNOMED Code Problem Periodontitis K05.30 Active 05648114 Problem Neuropathy G62.9 Active 055623179 Problem Dependence on nocturnal oxygen therapy Z99.81 Active 73331147237823 Problem COPD with acute exacerbation J44.1 Active 144578077 Problem Hypertension I10 Active 82070102 Problem Back pain of lumbar region with sciatica M54.40 Active 388614278 Problem Vitamin D deficiency E55.9 Active 22118411 Problem Other hammer toe(s) (acquired), right foot M20.41 Active 149606038 Problem Other hammer toe(s) (acquired), left foot M20.42 Active 56634654 Problem COPD with exacerbation J44.1 Active 382780863307646 Problem Tobacco abuse Z72.0 Active 565045341 Problem Gastro-esophageal reflux disease without esophagitis K21.9 Active 395256948 Problem Emphysema, unspecified J43.9 Active 68744938 Problem Hyperlipemia E78.5 Active 19648586 Problem Type 2 diabetes mellitus with diabetic neuropathy, unspecified E11.40 Active 02239637 Problem Chronic pain G89.29 Active 65368991 Problem OAB (overactive bladder) N32.81 Active 479639852 Problem Allergic rhinitis J30.9 Active 67530563 Problem Rheumatoid arthritis involving multiple sites with positive rheumatoid factor M05.79 Active 052968233 Problem Anxiety associated with depression F41.8 Active 673928426 Problem Primary insomnia F51.01 Active 7372521 ALLERGIES No Information ENCOUNTERS Encounter Location Date Diagnosis [facility] [address] [facility] [id number] [address] July, [facility] [address], [place] [address] Jun, [place] [address] [place] [address] May, Rheumatoid arthritis involving multiple sites with positive rheumatoid factor M05.79 [place] [address] [place] [address] May, Chronic pain G89.29 [place] [address] [place] [id number] [place] [address] May, [place] [address] [place] [id number] [place] [address] May, [place] [address] [place] [id number] [place] [address] May, [place] [address] [place] [id number] [place] [address] May, Type 2 diabetes mellitus with diabetic neuropathy, unspecified E11.40 [place] [address] [place] [address] May, Type 2 diabetes mellitus with diabetic neuropathy, unspecified E11.40 ; Emphysema, unspecified J43.9 ; Hypertension I10 ; Hyperlipemia E78.5 ; Vitamin D deficiency E55.9 ; Right medial knee pain M25.561 ; Controlled substance agreement signed Z79.899 ; Chronic pain G89.29 ; Allergic rhinitis J30.9 ; Anxiety associated with depression F41.8 ; Neuropathy G62.9 and Gastro- esophageal reflux disease without esophagitis K21.9 [place] [address] [place] [address] Apr, Chronic pain G89.29 [place] [address] [place] [address] 16 Apr, 2017 Other hammer toe(s) (acquired), left foot M20.42 ; Other hammer toe(s) (acquired), right foot M20.41 ; Type 2 diabetes mellitus with diabetic neuropathy, unspecified E11.40 and Onychomycosis B35.1 [facility] [address] [address] 2017 Gastro-esophageal reflux disease without esophagitis K21.9 [place] [address] [address] 02 Apr, 2017 Controlled substance agreement signed Z79.899 [place] [address] [address] Mar, Chronic pain G89.29 [place] [address] [address] Mar, Emphysema, unspecified J43.9 and Type 2 diabetes mellitus with diabetic neuropathy, unspecified E11.40 [facility] [address] [address] Mar, Dysuria R30.0 ; Vaginal candidiasis B37.3 and Acute nonintractable headache, unspecified headache type R51 [place] [address] [address] Feb, Neuropathy G62.9 and Chronic pain G89.29 [place] [address] [address] Feb, Gastro-esophageal reflux disease without esophagitis K21.9 [place] [address] [address] Feb, [place] [address] [address] Feb, Rheumatoid arthritis involving multiple sites with positive rheumatoid factor M05.79 and COPD with acute exacerbation J44.1 [place] [address] [address] 08 Feb, 2017 Vaginal odor N89.8 ; Vaginal irritation N89.8 ; Candidal dermatitis B37.2 and Screening breast examination Z12.31 [place] [address] [place] [address] Feb, [place] [address] [address] Feb, [place] [address] [place] [address] Feb, [place] [address] [address] Feb, COPD with exacerbation J44.1 ; Tobacco abuse counseling Z71.6 ; Tobacco abuse Z72.0 ; Rheumatoid arthritis involving multiple sites with positive rheumatoid factor M05.79 and Hyperlipemia E78.5 [place] [address] [place] [id number] Feb, [facility] [address] [id number] Jan, [place] [address] [address] Jan, Chronic pain G89.29 [facility] [address] [id number] Jan, Dental examination Z01.20 [facility] [address] [place] [address] 19 Jan, 2017 Back pain of lumbar region with sciatica M54.40 [facility] [address] [address] 15 Jan, 2017 Acute bacterial conjunctivitis of both eyes H10.33 [place] [address] [address] 02 Jan, 2017 Chronic pain G89.29 [place] [address] [address] Dec, Type 2 diabetes mellitus with diabetic neuropathy, unspecified E11.40 ; Hypertension I10 ; Hyperlipemia E78.5 ; Gastro-esophageal reflux disease without esophagitis K21.9 ; Anxiety associated with depression F41.8 ; Allergic rhinitis J30.9 ; Neuropathy G62.9 and Dependence on nocturnal oxygen therapy Z99.81 [place] [address] [address] Dec, [place] [address] [address] 12 Dec, 2016 [place] [address] [address] 09 Dec, 2016 Encounter for immunization Z23 [place] [address] [address] 05 Dec, 2016 Type 2 diabetes mellitus with diabetic neuropathy, unspecified E11.40 and Chronic pain G89.29 [place] [address] [address] 11 Nov, 2016 Gastro-esophageal reflux disease without esophagitis K21.9 [place] [address] [address] 11 Nov, 2016 Peripheral edema R60.9 and Chest pain in adult R07.9 [place] [address] [address] 07 Nov, 2016 Chronic pain G89.29 [place] [address] [address] 31 Oct, 2016 [place] [address] [address] 30 Oct, 2016 [place] [address] [address] 17 Oct, 2016 Rheumatoid arthritis with rheumatoid factor of right wrist without organ or systems involvement M05.731 [place] [address] [address] 15 Oct, 2016 [facility] [address] [place] [id number] [place] [address] 14 Oct, 2016 Acute exacerbation of chronic obstructive pulmonary disease (COPD) J44.1 and Canker sore K12.0 [facility] [address] [id number] [address] Oct, [facility] [address] [place] [id number] [place] [address] Oct, [facility] [address] [place] [id number] [place] [address] Oct, Chronic pain G89.29 [facility] [address] [place] [id number] [place] [id number] Oct, Dental examination Z01.20 [facility] [address] [place] [id number] [place] [address] Oct, Dental examination Z01.20 and Periodontitis K05.30 [facility] [address] [place] [id number] [place] [id number] Oct, Dental examination Z01.20 [facility] [address] [place] [id number] [place] [address] Sep, Abscess L02.91 [facility] [address] [place] [id number] [place] [address] Sep, Dental examination Z01.20 [facility] [address] [place] [id number] [place] [address] Sep, [facility] [address] [place] [id number] [place] [id number] Sep, Dental examination Z01.20 and Dental caries K02.9 [facility] [address] [place] [id number] [place] [address] Sep, Primary insomnia F51.01 and Anxiety associated with depression F41.8 [place] [address] [place] [id number] [place] [address] Sep, Rheumatoid arthritis with rheumatoid factor of right wrist without organ or systems involvement M05.731 [place] [address] [place] [id number] [place] [address] Sep, Chronic pain G89.29 [place] [address] [place] [id number] [place] [address] Sep, Type 2 diabetes mellitus with diabetic neuropathy, unspecified E11.40 ; Emphysema, unspecified J43.9 ; Gastro-esophageal reflux disease without esophagitis K21.9 ; Hypertension I10 ; Hyperlipemia E78.5 ; Anxiety associated with depression F41.8 ; Chronic pain G89.29 ; Vitamin D deficiency E55.9 and Primary insomnia F51.01 [place] [address] [address] 16 Aug, 2016 Anxiety associated with depression F41.[address] [address] Aug, Chronic pain G89.29 and Neuropathy G62.[address] [address] Aug, Type 2 diabetes mellitus with diabetic neuropathy, unspecified E11.40 ; Rheumatoid arthritis involving multiple sites with positive rheumatoid factor M05.79 ; Vitamin D deficiency E55.9 ; Anxiety associated with depression F41.8 and Primary insomnia F51.01 [place] [address] [place] [id number] [place] [address] July, Emphysema, unspecified J43.9 [place] [id number] [place] [address] July, Allergic rhinitis J30.9 [place] [address] [address] July, Allergic rhinitis J30.9 ; Emphysema, unspecified J43.9 and Rheumatoid arthritis with rheumatoid factor of right wrist without organ or systems involvement M05.731 [place] [address] [place] [id number] [place] [address] July, Neuropathy G62.9 and Chronic pain G89.29 [place] [address] [address] July, Rheumatoid arthritis involving multiple sites with positive rheumatoid factor M05.79 [place] [address] [place] [id number] [place] [address] Jun, [place] [address] [place] [id number] [place] [address] Jun, Neuropathy G62.9 and Chronic pain G89.29 [place] [address] [place] [id number] [place] [address] May, Neuropathy G62.9 and Chronic pain G89.29 [place] [address] [place] [id number] [place] [address] May, [place] [address] [place] [id number] [place] [address] May, [place] [address] [place] [id number] [place] [address] May, Type 2 diabetes mellitus with diabetic [...] system involvement with positive rheumatoid factor M05.732 [place] [address] [place] [address] Apr, Chronic pain G89.29 [place] [address] [place] [id number] [place] [address] Mar, Gastro-esophageal reflux disease without esophagitis K21.9 [place] [address] [place] [id number] [place] [address] Mar, [place] [address] [place] [address] [address] Mar, Rheumatoid arthritis with rheumatoid factor of right wrist without organ or systems involvement M05.731 [place] [address] [address] Mar, Chronic pain G89.29 [place] [address] [address] Feb, Hyperlipemia E78.5 [place] [address] [address] Feb, Abnormal breath sounds R06.89 ; COPD with exacerbation J44.1 and Fatigue, unspecified type R53.83 [place] [address] [address] Feb, Neuropathy G62.9 ; Abnormal lung sounds R09.89 and Bronchitis J40 [facility] [address] [address] Feb, Bronchitis J40 [place] [address] [address] Feb, Chronic pain G89.29 [place] [address] [place] [id number] [place] [address] Jan, Type 2 diabetes mellitus with diabetic neuropathy, unspecified E11.40 ; Rheumatoid arthritis with rheumatoid factor of right wrist without organ or systems involvement M05.731 and Hyperlipemia E78.5 [place] [address] [place] [id number] [place] [address] Jan, Rheumatoid arthritis with rheumatoid factor of right wrist without organ or systems involvement M05.731 [place] [address] [address] Jan, De Quervain's disease (radial styloid tenosynovitis) M65.4 ; Closed nondisplaced fracture of scaphoid of left wrist, unspecified portion of scaphoid, initial encounter S62.002A and Peripheral tear of medial meniscus of left knee, unspecified whether old or current tear, initial encounter S83.222A [place] [address] [place] [id number] [place] [address] Jan, Hypertension I10 ; Type 2 diabetes mellitus with diabetic neuropathy, unspecified E11.40 ; Hyperlipemia E78.5 ; Allergic rhinitis J30.9 ; Neuropathy G62.9 ; Rheumatoid arthritis with rheumatoid factor of right wrist without organ or systems involvement M05.731 ; Acute non-recurrent maxillary sinusitis J01.00 and Chronic pain G89.29 [place] [address] [place] [id number] [place] [address] Dec, [place] [address] [address] Dec, [place] [address] [address] Dec, Type 2 diabetes mellitus with diabetic neuropathy, unspecified E11.40 ; Emphysema, unspecified J43.9 ; Gastro-esophageal reflux disease without esophagitis K21.9 ; Hypertension I10 ; Hyperlipemia E78.5 ; Rheumatoid arthritis with rheumatoid factor of right wrist without organ or systems involvement M05.731 ; Elevated white blood cell count, unspecified D72.829 ; Acute non- recurrent frontal sinusitis J01.10 and Chronic pain G89.29 [place] [address] [place] [id number] [place] [address] Nov, [place] [address] [place] [id number] [place] [address] Nov, Elevated white blood cell count, unspecified D72.829 ; Encounter for immunization Z23 ; Rheumatoid arthritis with rheumatoid factor of right wrist without organ or systems involvement M05.731 ; Injury of left hand S69.92XA ; Pain in left knee M25.562 and Other chronic pain G89.29 [place] [address] [place] [id number] [place] [address] Nov, [place] [address] [place] [address] Nov, [place] [address] [address] Oct, [place] [address] [address] Oct, Hyperlipemia E78.5 [place] [address] [address] Oct, [place] [address] [address] Oct, Type 2 diabetes mellitus with diabetic neuropathy, unspecified E11.40 ; Neuropathy G62.9 ; Hypertension I10 ; Chronic pain G89.29 and Hyperlipemia E78.5 [place] [address] [address] Oct, Emphysema, unspecified J43.9 and Rheumatoid arthritis of left wrist without organ or system involvement with positive rheumatoid factor M05.732 [place] [address] [address] Sep, Chronic pain syndrome G89.4 [place] [address] [address] Sep, [place] [address] [address] Sep, [place] [address] [address] Sep, Closed nondisplaced fracture of scaphoid of left wrist, unspecified portion of scaphoid, initial encounter S62.002A [place] [address] [address] Sep, Type 2 diabetes mellitus with diabetic neuropathy, unspecified E11.40 ; Hypertension I10 ; Hyperlipemia E78.5 and Acute non-recurrent maxillary sinusitis J01.00 [place] [address] [address] Sep, [facility] [address], [place] [address] Sep, [facility] [address] [place] [address] Sep, [facility] [address] [place] [id number] [place] [address] Sep, [facility] [address] [place] [id number] [place] [address] Aug, Epigastric pain R10.13 and Right upper quadrant pain R10.11 [place] [address] [place] [id number] [place] [address] Aug, Closed nondisplaced fracture of scaphoid of left wrist, unspecified portion of scaphoid, initial encounter S62.002A [place] [address] [place] [id number] [place] [address] Aug, [facility] [address] [place] [id number] [place] [address] Aug, [facility] [address] [place] [address] Aug, Shortness of breath R06.02 ; Epigastric pain R10.13 and Injury of left lower arm, initial encounter S59.912A [place] [address], [place] [address] Aug, Coronary artery disease involving [place] heart with angina pectoris, unspecified vessel or lesion type I25.119 ; Pulmonary emphysema, unspecified emphysema type J43.9 and Snoring R06.83 [place] [address] [place] [address] Aug, [facility] [address] [place] [address] Aug, Emphysema, unspecified J43.9 ; Atherosclerotic heart disease of [place] coronary artery without angina pectoris I25.10 and Hypertension I10 [place] [address], [place] [address] July, [place] [address] [place] [address] July, Closed nondisplaced fracture of scaphoid of left wrist, unspecified portion of scaphoid, initial encounter S62.002A [place] [address] [place] [id number] [place] [address] July, [place] [address] [place] [id number] [place] [address] July, Type 2 diabetes mellitus with diabetic neuropathy, unspecified E11.40 ; Emphysema, unspecified J43.9 ; Atherosclerotic heart disease of [place] coronary artery without angina pectoris I25.10 ; [...] agents L24.89 and Hospital discharge follow-up Z09 [place] [address], [place] [address] July, [place] [address] [place] [address] July, Type 2 diabetes mellitus with diabetic neuropathy, unspecified E11.40 [place] [address], [place] [address] July, Type 2 diabetes mellitus with diabetic neuropathy, unspecified E11.40 and Rheumatoid arthritis of left wrist without organ or system involvement with positive rheumatoid factor M05.732 [place] [address], [place] [address] July, [place] [address] [place] [id number] [place] [address] July, [facility] [address], [place] [address] Jun, [facility] [address], [place] [address] Jun, [facility] [address], [place] [address] Jun, 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 [facility] [address] [place] [address] Jun, [facility] [address] [place] [address] Jun, 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 [facility] [address], [place] [address] Jun, [place] [address] [place] [address] Jun, [facility] [address], [place] [address] Jun, Encounter for PPD test Z11.1 ; Rheumatoid arthritis with rheumatoid factor of right wrist without organ or systems involvement M05.731 and Rheumatoid arthritis of left wrist without organ or system involvement with positive rheumatoid factor M05.732 [place] [address], [place] [address] Jun, Type 2 diabetes mellitus with diabetic neuropathy, unspecified E11.40 [facility] [address], [place] [address] May, Type 2 diabetes mellitus with diabetic neuropathy, unspecified E11.40 ; Emphysema, unspecified J43.9 ; Rheumatoid arthritis with rheumatoid factor of right wrist without organ or systems involvement M05.731 ; Rheumatoid arthritis of left wrist without organ or system involvement with positive rheumatoid factor M05.732 and Chronic pain G89.29 [place] [address], [place] [address] May, [place] [address] [place] [address] May, Swelling of hand joint M25.449 ; Ankle swelling M25.473 and Joint pain M25.50 [place] [address] [place] [id number] [place] [address] May, Emphysema, unspecified J43.9 [place] [address] [address] May, Gastroenteritis K52.9 and Hypertension I10 [place] [address] [place] [id number] [place] [address] Apr, [place] [address] [address] Apr, [place] [address] [place] [id number] [place] [address] Apr, [place] [address] [place] [id number] [place] [address] Apr, Type 2 diabetes mellitus with diabetic neuropathy, unspecified E11.40 ; Emphysema, unspecified J43.9 ; Atherosclerotic heart disease of [place] coronary artery without angina pectoris I25.10 ; Migraine without aura, not intractable, with status migrainosus G43.001 ; Gastro-esophageal reflux disease without esophagitis K21.9 ; CAD (coronary artery disease) I25.10 ; Hypertension I10 ; Hyperlipemia E78.5 ; Allergic rhinitis J30.9 ; Neuropathy G62.9 ; Anxiety associated with depression F41.8 and Injury of left hand S69.92XA [place] [address] [place] [id number] [place] [address] Apr, [place] [address] [place] [id number] [place] [address] Apr, [place] [address] [place] [id number] [place] [address] Apr, Type 2 diabetes mellitus with diabetic neuropathy, unspecified E11.40 ; Emphysema, unspecified J43.9 ; Essential (primary) hypertension I10 ; Atherosclerotic heart disease of [place] coronary artery without angina pectoris I25.10 ; Gastro-esophageal reflux disease without esophagitis K21.9 ; CAD (coronary artery disease) I25.10 ; Hyperlipemia E78.5 ; Hypertension I10 ; History of solitary pulmonary nodule Z87.898 ; Allergic rhinitis J30.9 ; Chronic pain G89.29 and Depression with anxiety F41.8 [place] [address] [address] Mar, [address] [address] Mar, Allergic rhinitis J30.9 ; URI (upper respiratory infection) J06.9 and Other viral agents as the cause of diseases classified elsewhere B97.89 [facility] [address] [address] Feb, Acute nasopharyngitis [common cold] J00 and Acute diarrhea R19.[address] [address] Feb, Depression F32.[address] [address] 18 Jan, 2015 Otitis media, right H66.[address] [address] Jan, [place] [address] [address] Jan, Type 2 diabetes mellitus with diabetic neuropathy, unspecified E11.[address] [address] Jan, [place] [address] [address] 05 Jan, 2015 Hyperlipemia E78.5 [place] [address] [address] Jan, Type 2 diabetes mellitus with diabetic neuropathy, unspecified E11.40 ; Emphysema, unspecified J43.9 ; CAD (coronary artery disease) I25.10 and Hyperlipemia E78.[address] [address] Dec, Allergic rhinitis J30.9 and Fungal infection B49 [address] [address] Dec, [address] [address] Dec, [address] [address] Dec, Chest pain R07.9 ; CAD (coronary artery disease) I25.10 ; Hypertension I10 and Hyperlipemia E78.[address] [address] Dec, Pain in thoracic spine M54.6 ; Gastro-esophageal reflux disease without esophagitis K21.9 ; Emphysema, unspecified J43.9 and Migraine without aura, not intractable, with status migrainosus G43.[address] [address] Dec, [address] [address] Nov, Influenza vaccine administered V04.[address] [address] Nov, [address] [address] Sep, [address] [address] Sep, [address] [address] Sep, CAD (coronary artery disease) 414.00 and Diabetes type 2, uncontrolled 250.02 [facility] [address] [facility] [id number] [place] [address] Sep, CAD (coronary artery disease) 414.00 ; Diabetes type 2, uncontrolled 250.02 and Migraine 346.90 IMMUNIZATIONS No Known Immunizations SOCIAL HISTORY Never Assessed REASON FOR VISIT Refill request PLAN OF CARE VITAL SIGNS MEDICATIONS Medication Instructions Dosage Frequency Start Date End Date Duration Status Trazodone HCl 50 mg Orally Once a day 1 tablet at bedtime as needed 24h Aug, 30 day(s) Active BusPIRone HCl 7.5 MG Orally 3 times a day prn 1 tablet Aug, 30 days Active RESULTS No Results PROCEDURES No Known procedures INSTRUCTIONS MEDICATIONS ADMINISTERED No Known Medications MEDICAL (GENERAL) HISTORY Type Description Date Medical History COPD Medical History Type 2 Diabetes Medical History HTN Medical History Cardiac stents July 2010 post [place]-stent to [place] Medical History Rheumatoid Arthritis Medical History 04/2016---Echo- 60%//mild hypertrophy at the base of the septum, mild mitral regurg/ mild tricuspid regurg. PAP about 10-15 mmHg Medical History 04/2016------Normal Lexiscan Medical History Elevated white blood cell count, unspecified Medical History Atherosclerotic heart disease of [place] coronary artery without angina pectoris Medical History [...]
--- OUTSIDE RECORDS SUMMARY | 2018-08-23 17:33 | XMS REPORT ---
Author Author DELEONCLAU Moran Organization [facility] Address [address] [place] [address] Care Team Providers Care Brilliandeer Lopper Name Role Phone CLAU DELEON Unavailable PROBLEMS Type Condition ICD9-CM Code HAL52-DW Code Onset Dates Condition Status SNOMED Code Problem Dependence on nocturnal oxygen therapy Z99.81 Active 21267826029204 Problem Other hammer toe(s) (acquired), left foot M20.42 Active 24038742 Problem Neuropathy G62.9 Active 852628967 Problem Anxiety F41.9 Active 28133143 Problem Hyperlipemia E78.5 Active 55665946 Problem COPD with acute exacerbation J44.1 Active 478612496 Problem Hypertension I10 Active 11771852 Problem Vitamin D deficiency E55.9 Active 11439903 Problem Tobacco abuse Z72.0 Active 664224735 Problem Other hammer toe(s) (acquired), right foot M20.41 Active 843990939 Problem Back pain of lumbar region with sciatica M54.40 Active 165772032 Problem COPD with exacerbation J44.1 Active 991038985772904 Problem Emphysema, unspecified J43.9 Active 47522705 Problem Allergic rhinitis J30.9 Active 49885668 Problem Type 2 diabetes mellitus with diabetic neuropathy, unspecified E11.40 Active 08010159 Problem Gastro-esophageal reflux disease without esophagitis K21.9 Active 827152314 Problem OAB (overactive bladder) N32.81 Active 936160364 Problem Rheumatoid arthritis involving multiple sites with positive rheumatoid factor M05.79 Active 866148024 Problem Anxiety associated with depression F41.8 Active 315362950 Problem Primary insomnia F51.01 Active 0815934 Problem Chronic pain G89.29 Active 01304810 Problem Periodontitis K05.30 Active 89195747 ALLERGIES Substance Reaction Event Type Date Status Sulfamethoxazole-Trimethoprim itching Drug Allergy Nov, Active Singulair dizziness Drug Allergy Nov, Active ENCOUNTERS Encounter Location Date Diagnosis [facility] [address] [address] July, [facility] [address], [place] [address] Jun, [facility] [address], [place] [address] Jun, Chronic pain G89.29 [facility] [id number] [place] [address] Jun, [facility] [address], [place] [address] Jun, [facility] [address] [id number] [place] [address] Jun, Visit for TB skin test Z11.1 [facility] [id number] [place] [address] 16 Jun, 2017 [facility] [address], [place] [address] Jun, [facility] [id number] [place] [address] Jun, Tobacco abuse Z72.0 and Rheumatoid arthritis involving multiple sites with positive rheumatoid factor M05.79 [facility] [address], [place] [address] Jun, Anxiety F41.9 ; Acute non-recurrent maxillary sinusitis J01.00 and Chronic pain G89.29 [facility] [address], [place] [address] Jun, [facility] [address], [place] [address] May, Rheumatoid arthritis involving multiple sites with positive rheumatoid factor M05.79 [facility] [address], [place] [address] May, Chronic pain G89.29 [facility] [address], [place] [address] May, [place] [id number] [place] [address] May, [place] [address] [place] [address] May, [place] [id number] [place] [address] May, Type 2 diabetes mellitus with diabetic neuropathy, unspecified E11.40 [place] [address] [place] [address] May, Type 2 diabetes mellitus with diabetic neuropathy, unspecified E11.40 ; Emphysema, unspecified J43.9 ; Hypertension I10 ; Hyperlipemia E78.5 ; Vitamin D deficiency E55.9 ; Right medial knee pain M25.561 ; Controlled substance agreement signed Z79.899 ; Chronic pain G89.29 ; Allergic rhinitis J30.9 ; Anxiety associated with depression F41.8 ; Neuropathy G62.9 and Gastro- esophageal reflux disease without esophagitis K21.9 [place] [id number] [place] [address] 22 Apr, 2017 Chronic pain G89.29 [place] [id number] [place] [address] 16 Apr, 2017 Other hammer toe(s) (acquired), left foot M20.42 ; Other hammer toe(s) (acquired), right foot M20.41 ; Type 2 diabetes mellitus with diabetic neuropathy, unspecified E11.40 and Onychomycosis B35.1 [place] [address] [place] [address] 2017 Gastro-esophageal reflux disease without esophagitis K21.9 [place] [address] [place] [address] Apr, Controlled substance agreement signed Z79.899 [place] [id number] [place] [address] Mar, Chronic pain G89.29 [facility] [id number] [place] [address] Mar, Emphysema, unspecified J43.9 and Type 2 diabetes mellitus with diabetic neuropathy, unspecified E11.40 [facility] [id number] [place] [address] Mar, Dysuria R30.0 ; Vaginal candidiasis B37.3 and Acute nonintractable headache, unspecified headache type R51 [place] [address] [address] Feb, Neuropathy G62.9 and Chronic pain G89.29 [place] [id number] [place] [address] Feb, Gastro-esophageal reflux disease without esophagitis K21.9 [place] [id number] [place] [address] Feb, [place] [address] [address] Feb, Rheumatoid arthritis involving multiple sites with positive rheumatoid factor M05.79 and COPD with acute exacerbation J44.1 [place] [id number] [place] [address] Feb, Vaginal odor N89.8 ; Vaginal irritation N89.8 ; Candidal dermatitis B37.2 and Screening breast examination Z12.31 [place] [id number] [place] [address] Feb, [place] [address] [address] Feb, [place] [address] [address] [id number] [place] [address] Feb, [place] [id number] [place] [address] Feb, COPD with exacerbation J44.1 ; Tobacco abuse counseling Z71.6 ; Tobacco abuse Z72.0 ; Rheumatoid arthritis involving multiple sites with positive rheumatoid factor M05.[address] [facility] [address] [address] Feb, [facility] [address] [id number] Jan, [place] [address] [address] Jan, Chronic pain G89.29 [facility] [address] [id number] Jan, Dental examination Z01.20 [facility] [address] [place] [address] Jan, Back pain of lumbar region with sciatica M54.40 [facility] [address] [place] [address] Jan, Acute bacterial conjunctivitis of both eyes H10.[address] [address] Jan, Chronic pain G89.29 [place] [address] [address] Dec, Type 2 diabetes mellitus with diabetic neuropathy, unspecified E11.40 ; Hypertension I10 ; Hyperlipemia E78.5 ; Gastro-esophageal reflux disease without esophagitis K21.9 ; Anxiety associated with depression F41.8 ; Allergic rhinitis J30.9 ; Neuropathy G62.9 and Dependence on nocturnal oxygen therapy Z99.[address] [address] Dec, [place] [address] [address] Dec, [address] [address] Dec, Encounter for immunization Z23 [facility] [address] [address] 05 Dec, 2016 Type 2 diabetes mellitus with diabetic neuropathy, unspecified E11.40 and Chronic pain G89.29 [facility] [id number] [place] [address] 11 Nov, 2016 Gastro-esophageal reflux disease without esophagitis K21.9 [facility] [address] [address] 11 Nov, 2016 Peripheral edema R60.9 and Chest pain in adult R07.9 [place] [address] [address] 07 Nov, [address] [facility] [address] [address] 31 Oct, 2016 [facility] [address] [address] Oct, [facility] [address] [address] 17 Oct, 2016 Rheumatoid arthritis with rheumatoid factor of right wrist without organ or systems involvement M05.731 [facility] [id number] [place] [address] 15 Oct, 2016 [facility] [address] [address] 14 Oct, 2016 Acute exacerbation of chronic obstructive pulmonary disease (COPD) J44.1 and Canker sore K12.0 [facility] [id number] [place] [address] Oct, [facility] [address] [address] 10 Oct, 2016 [facility] [address] [address] 09 Oct, 2016 Chronic pain G89.29 [facility] [address] [id number] Oct, Dental examination Z01.20 [facility] [id number] [place] [address] Oct, Dental examination Z01.20 and Periodontitis K05.30 [facility] [address] [place] [id number] Oct, Dental examination Z01.20 [facility] [id number] [place] [address] Sep, Abscess L02.91 [facility] [id number] [place] [address] Sep, Dental examination Z01.20 [facility] [id number] [place] [address] Sep, [facility] [address] [id number] [place] [id number] Sep, Dental examination Z01.20 [address] Dental caries K02.9 [facility] [id number] [place] [address] Sep, Primary insomnia F51.01 and Anxiety associated with depression F41.8 [place] [id number] [place] [address] Sep, Rheumatoid arthritis with rheumatoid factor of right wrist without organ or systems involvement M05.731 [place] [address] [id number] [place] [address] Sep, Chronic pain G89.29 [facility] [id number] [place] [address] Sep, Type 2 diabetes mellitus with diabetic neuropathy, unspecified E11.40 ; Emphysema, unspecified J43.9 ; Gastro-esophageal reflux disease without esophagitis K21.9 ; Hypertension I10 ; Hyperlipemia E78.5 ; Anxiety associated with depression F41.8 ; Chronic pain G89.29 ; Vitamin D deficiency E55.9 and Primary insomnia F51.01 [place] [address] [place] [address] 16 Aug, 2016 Anxiety associated with depression F41.8 [place] [id number] [place] [address] Aug, Chronic pain G89.29 and Neuropathy G62.9 [place] [id number] [place] [address] Aug, Type 2 diabetes mellitus with diabetic neuropathy, unspecified E11.40 ; Rheumatoid arthritis involving multiple sites with positive rheumatoid factor M05.79 ; Vitamin D deficiency E55.9 ; Anxiety associated with depression F41.8 and Primary insomnia F51.01 [place] [id number] [place] [address] July, Emphysema, unspecified J43.9 [place] [id number] [place] [address] July, Allergic rhinitis J30.9 [place] [id number] [place] [address] July, Allergic rhinitis J30.9 ; Emphysema, unspecified J43.9 and Rheumatoid arthritis with rheumatoid factor of right wrist without organ or systems involvement M05.731 [place] [id number] [place] [address] July, Neuropathy G62.9 and Chronic pain G89.29 [place] [address] [place] [address] July, Rheumatoid arthritis involving multiple sites with positive rheumatoid factor M05.79 [place] [id number] [place] [address] Jun, [place] [id number] [place] [address] Jun, Neuropathy G62.9 and Chronic pain G89.29 [place] [id number] [place] [address] May, Neuropathy G62.9 and Chronic pain G89.29 [place] [id number] [place] [address] May, [place] [id number] [place] [address] May, [place] [id number] [place] [address] May, Type 2 diabetes mellitus with diabetic [...] system involvement with positive rheumatoid factor M05.732 [place] [id number] [place] [address] Apr, Chronic pain G89.29 [place] [id number] [place] [address] Mar, Gastro-esophageal reflux disease without esophagitis K21.9 [place] [id number] [place] [address] Mar, [place] [address] [id number] [place] [address] Mar, Rheumatoid arthritis with rheumatoid factor of right wrist without organ or systems involvement M05.731 [place] [id number] [place] [address] Mar, Chronic pain G89.29 [place] [id number] [place] [address] Feb, Hyperlipemia E78.5 [place] [address] [place] [address] 27 Feb, 2016 Abnormal breath sounds R06.89 ; COPD with exacerbation J44.1 and Fatigue, unspecified type R53.83 [place] [id number] [place] [address] Feb, Neuropathy G62.9 ; Abnormal lung sounds R09.89 and Bronchitis J40 [facility] [id number] [place] [address] Feb, Bronchitis J40 [place] [address] [address] 16 Feb, 2016 Chronic pain G89.29 [place] [address] [id number] [place] [address] Jan, Type 2 diabetes mellitus with diabetic neuropathy, unspecified E11.40 ; Rheumatoid arthritis with rheumatoid factor of right wrist without organ or systems involvement M05.731 and Hyperlipemia E78.5 [place] [id number] [place] [address] Jan, Rheumatoid arthritis with rheumatoid factor of right wrist without organ or systems involvement M05.731 [place] [id number] [place] [address] Jan, De Quervain's disease (radial styloid tenosynovitis) M65.4 ; Closed nondisplaced fracture of scaphoid of left wrist, unspecified portion of scaphoid, initial encounter S62.002A and Peripheral tear of medial meniscus of left knee, unspecified whether old or current tear, initial encounter S83.222A [place] [address] [address] Jan, Hypertension I10 ; Type 2 diabetes mellitus with diabetic neuropathy, unspecified E11.40 ; Hyperlipemia E78.5 ; Allergic rhinitis J30.9 ; Neuropathy G62.9 ; Rheumatoid arthritis with rheumatoid factor of right wrist without organ or systems involvement M05.731 ; Acute non-recurrent maxillary sinusitis J01.00 and Chronic pain G89.29 [place] [id number] [place] [address] Dec, [place] [id number] [place] [address] Dec, [place] [id number] [place] [address] Dec, Type 2 diabetes mellitus with diabetic neuropathy, unspecified E11.40 ; Emphysema, unspecified J43.9 ; Gastro-esophageal reflux disease without esophagitis K21.9 ; Hypertension I10 ; Hyperlipemia E78.5 ; Rheumatoid arthritis with rheumatoid factor of right wrist without organ or systems involvement M05.731 ; Elevated white blood cell count, unspecified D72.829 ; Acute non- recurrent frontal sinusitis J01.10 and Chronic pain G89.29 [place] [id number] [place] [address] Nov, [place] [id number] [place] [address] Nov, Elevated white blood cell count, unspecified D72.829 ; Encounter for immunization Z23 ; Rheumatoid arthritis with rheumatoid factor of right wrist without organ or systems involvement M05.731 ; Injury of left hand S69.92XA ; Pain in left knee M25.562 and Other chronic pain G89.29 [place] [address] [id number] [place] [address] Nov, [place] [address] [id number] [place] [address] Nov, [place] [id number] [place] [address] Oct, [place] [address] [id number] [place] [address] Oct, Hyperlipemia E78.5 [place] [address] [id number] [place] [address] Oct, [place] [address], [place] [address] Oct, Type 2 diabetes mellitus with diabetic neuropathy, unspecified E11.40 ; Neuropathy G62.9 ; Hypertension I10 ; Chronic pain G89.29 and Hyperlipemia E78.5 [place] [id number] [place] [address] Oct, Emphysema, unspecified J43.9 and Rheumatoid arthritis of left wrist without organ or system involvement with positive rheumatoid factor M05.732 [place] [id number] [place] [address] Sep, Chronic pain syndrome G89.4 [place] [address] [id number] [place] [address] Sep, [place] [address] [id number] [place] [address] Sep, [place] [id number] [place] [address] Sep, Closed nondisplaced fracture of scaphoid of left wrist, unspecified portion of scaphoid, initial encounter S62.002A [place] [address] [place] [address] Sep, Type 2 diabetes mellitus with diabetic neuropathy, unspecified E11.40 ; Hypertension I10 ; Hyperlipemia E78.5 and Acute non-recurrent maxillary sinusitis J01.00 [place] [address] [place] [address] Sep, [place] [address] [id number] [place] [address] Sep, [place] [address] [id number] [place] [address] Sep, [place] [address] [place] [address] Sep, [place] [id number] [address] Aug, Epigastric pain R10.13 and Right upper quadrant pain R10.11 [place] [address] [place] [address] Aug, Closed nondisplaced fracture of scaphoid of left wrist, unspecified portion of scaphoid, initial encounter S62.002A [place] [address] [place] [address] Aug, [place] [id number] [place] [address] Aug, [facility] [address] [place] [address] Aug, Shortness of breath R06.02 ; Epigastric pain R10.13 and Injury of left lower arm, initial encounter S59.912A [place] [address] [place] [address] Aug, Coronary artery disease involving hop[place] heart with angina pectoris, unspecified vessel or lesion type I25.119 ; Pulmonary emphysema, unspecified emphysema type J43.9 and Snoring R06.83 [place] [address] [place] [address] Aug, [place] [address] [place] [address] Aug, Emphysema, unspecified J43.9 ; Atherosclerotic heart disease of [place] coronary artery without angina pectoris I25.10 and Hypertension I10 [place] [address] [place] [address] July, [place] [address] [place] [address] July, Closed nondisplaced fracture of scaphoid of left wrist, unspecified portion of scaphoid, initial encounter S62.002A [place] [address] [address] July, [place] [address] [id number] [place] [address] July, Type 2 diabetes mellitus with diabetic neuropathy, unspecified E11.40 ; Emphysema, unspecified J43.9 ; Atherosclerotic heart disease of [place] coronary artery without angina pectoris I25.10 ; [...] agents L24.89 and Hospital discharge follow-up Z09 [place] [address], [place] [address] July, [place] [address] [address] [id number] [place] [address] July, Type 2 diabetes mellitus with diabetic neuropathy, unspecified E11.40 [place] [address] [address] July, Type 2 diabetes mellitus with diabetic neuropathy, unspecified E11.40 and Rheumatoid arthritis of left wrist without organ or system involvement with positive rheumatoid factor M05.732 [place] [id number] [address] July, [place] [id number] [place] [address] July, [place] [id number] [place] [address] Jun, [place] [address] [place] [id number] [place] [id number] Jun, [place] [id number] [place] [address] Jun, 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 [place] [id number] [place] [address] Jun, [place] [address] [place] [id number] [place] [address] Jun, 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 [place] [address] [place] [id number] [place] [address] Jun, [place] [address] [place] [id number] [place] [id number] Jun, [place] [address] [place] [id number] [place] [id number] Jun, Encounter for PPD test Z11.1 ; Rheumatoid arthritis with rheumatoid factor of right wrist without organ or systems involvement M05.731 and Rheumatoid arthritis of left wrist without organ or system involvement with positive rheumatoid factor M05.732 [place] [address] [place] [id number] [place] [phone] Jun, Type 2 diabetes mellitus with diabetic neuropathy, unspecified E11.40 [place] [address] [place] [id number] [place] [phone] May, Type 2 diabetes mellitus with diabetic neuropathy, unspecified E11.40 ; Emphysema, unspecified J43.9 ; Rheumatoid arthritis with rheumatoid factor of right wrist without organ or systems involvement M05.731 ; Rheumatoid arthritis of left wrist without organ or system involvement with positive rheumatoid factor M05.732 and Chronic pain G89.29 [place] [id number] [place] [phone] May, [place] [id number] [place] [phone] May, Swelling of hand joint M25.449 ; Ankle swelling M25.473 and Joint pain M25.50 [place] [id number] [place] [phone] May, Emphysema, unspecified J43.9 [place] [address] [place] [id number] [place] [phone] May, Hypertension I10 and Gastroenteritis K52.9 [place] [address] [place] [id number] [place] [phone] Apr, [place] [address] [place] [id number] [place] [id number] Apr, [place] [address] [place] [id number] [place] [phone] Apr, [place] [address] [address] Apr, Type 2 diabetes mellitus with diabetic neuropathy, unspecified E11.40 ; Emphysema, unspecified J43.9 ; Atherosclerotic heart disease of [place] coronary artery without angina pectoris I25.10 ; Migraine without aura, not intractable, with status migrainosus G43.001 ; Gastro-esophageal reflux disease without esophagitis K21.9 ; CAD (coronary artery disease) I25.10 ; Hypertension I10 ; Hyperlipemia E78.5 ; Allergic rhinitis J30.9 ; Neuropathy G62.9 ; Anxiety associated with depression F41.8 and Injury of left hand S69.92XA [place] [id number] [place] [phone] 16 Apr, 2015 [place] [id number] [place] [id number] Apr, [id number] [place] [phone] 04 Apr, 2015 Type 2 diabetes mellitus with diabetic neuropathy, unspecified E11.40 ; Emphysema, unspecified J43.9 ; Essential (primary) hypertension I10 ; Atherosclerotic heart disease of [place] coronary artery without angina pectoris I25.10 ; Gastro-esophageal reflux disease without esophagitis K21.9 ; CAD (coronary artery disease) I25.10 ; Hyperlipemia E78.5 ; Hypertension I10 ; History of solitary pulmonary nodule Z87.898 ; Allergic rhinitis J30.9 ; Chronic pain G89.29 and Depression with anxiety F41.8 [place] [id number] [place] [address] Mar, [place] [address] [address] Mar, Allergic rhinitis J30.9 ; URI (upper respiratory infection) J06.9 and Other viral agents as the cause of diseases classified elsewhere B97.89 [facility] [address] [address] Feb, Acute nasopharyngitis [common cold] J00 and Acute diarrhea R19.7 [place] [address] [address] Feb, Depression F32.9 [place] [address] [address] Jan, Otitis media, right H66.91 [place] [address] [address] Jan, [place] [address] [address] Jan, Type 2 diabetes mellitus with diabetic neuropathy, unspecified E11.40 [place] [address] [address] Jan, [place] [address] [address] Jan, Hyperlipemia E78.5 [place] [address] [address] Jan, Type 2 diabetes mellitus with diabetic neuropathy, unspecified E11.40 ; Emphysema, unspecified J43.9 ; CAD (coronary artery disease) I25.10 and Hyperlipemia E78.5 [place] [address] [address] Dec, Allergic rhinitis J30.9 and Fungal infection B49 [place] [address] [address] Dec, [place] [address] [address] Dec, [place] [address] [address] Dec, Chest pain R07.9 ; CAD (coronary artery disease) I25.10 ; Hypertension I10 and Hyperlipemia E78.[address] [address] Dec, Pain in thoracic spine M54.6 ; Gastro-esophageal reflux disease without esophagitis K21.9 ; Emphysema, unspecified J43.9 and Migraine without aura, not intractable, with status migrainosus G43.001 [place] [address] [address] Dec, [place] [address] [address] Nov, Influenza vaccine administered V04.81 [place] [address] [address] Nov, [place] [address] [address] Sep, [place] [address] [address] Sep, [address] [address] Sep, CAD (coronary artery disease) 414.00 and Diabetes type 2, uncontrolled 250.[address] [address] Sep, CAD (coronary artery disease) 414.00 ; Diabetes type 2, uncontrolled 250.02 and Migraine 346.90 IMMUNIZATIONS No Known Immunizations SOCIAL HISTORY Never Assessed REASON FOR VISIT lower extremities swelling---[place],CCMA, needing medication refills but not chavez re what they are PLAN OF CARE Activity Details Follow Up prn Reason:chm VITAL SIGNS Height 66 in 2016-11-28 Weight 188.2 lbs 2016-11-28 Temperature 97.5 degrees Fahrenheit 2016-11-28 Heart Rate 82 bpm 2016-11-28 Respiratory Rate 18 2016-11-28 BMI 30.37 kg/m2 2016-11-28 Blood pressure systolic 124 mmHg 2016-11-28 Blood pressure diastolic 74 mmHg 2016-11-28 MEDICATIONS Medication Instructions Dosage Frequency Start Date End Date Duration Status Oxygen Active BusPIRone HCl 7.5 MG Orally 3 times a day prn 1 tablet 30 Active Metoprolol Tartrate 25 MG TAKE ONE TABLET BY MOUTH TWICE DAILY 30 Active Ventolin HFA 108 (90 Base) MCG/ACT Inhalation every 4 hrs Needs appointment 2 puffs as needed 28 days Active Baclofen 10 MG TAKE ONE TABLET BY MOUTH THREE TIMES DAILY WITH FOOD OR MILK 90 Active Metformin HCl 1000 MG TAKE ONE TABLET BY MOUTH TWICE DAILY WITH MEALS 30 Active Blood Glucose Monitor System w/Device as directed July, Active Quad Cane as directed May, Active Easy Touch Pen Pomeroy 32G X 4 MM sq 4 times a day as directed 6h Sep, Active Folic Acid 1 MG Orally Once a day 1 tablet 24h Active Fish Oil 1200 MG Orally Once a day 1 capsule 24h Active Protonix 20 mg Orally Once a day 1 tablet 24h Active Aleve 220 MG Orally every 12 hrs 1 tablet 12h Active Methotrexate 2.5 MG Orally once weekly 8 TABLETS 90 days Active Trazodone HCl 50 mg Orally Once a day 1 tablet at bedtime as needed 24h 30 Active Plaquenil 200 mg Orally Once a day 1 tablet with food or milk 24h 30 Active Nystatin-Triamcinolone 215352-7.1 UNIT/GM Externally Twice a day apply thin layer to irritated abdominal areas 12h 17 Jul, 2015 Active Blood Glucose Test Test Strips In Vitro 4 times a day test blood sugar 6h Jun, Active Lyrica 75 MG Orally Twice a day 1 capsule 12h 28 Active Citalopram Hydrobromide 20 mg Orally Once a day 1 tablet 24h 30 Active Depend Adjustable Underwear Lg 1 as directed 3 times a day use one depends three times per day as needed 8h May, 12 months Active Atorvastatin Calcium 10 mg Orally Once a day 1 tablet 24h Oct, 30 day(s) Active Victoza 18 MG/3ML Subcutaneous Once a day 1.8mg 24h Active Lisinopril 20 mg Orally Once a day 1 tablet 24h 90 Active Albuterol Sulfate (2.5 MG/3ML) 0.083% Inhalation Three times a day 3 ml 8h 30 Active Symbicort 160-4.5 MCG/ACT Inhalation Twice a day Needs to make an appointment 2 puffs 30 Active Qnasl 80 MCG/ACT Nasally Once a day 2 puffs in each nostril 24h July, 30 day(s) Active Hydrocodone-Acetaminophen 7.5-325 MG Orally every 6 hours as needed 1 tablet as needed Nov, 28 days Active Pantoprazole Sodium 20 MG TAKE ONE TABLET BY MOUTH ONCE DAILY 30 Active Aspirin Adult Low Strength 81 MG Orally Once a day 1 tablet 24h Active Mucinex 600 MG Orally every 12 hrs 1 tablet as needed 12h Mar, Active Cetirizine HCl 10 Orally Once a day TAKE 1 TABLET BY MOUTH DAILY 24h Active RESULTS No Results PROCEDURES No Known [...] unspecified Medical History Atherosclerotic heart disease of [place] coronary artery without angina pectoris Medical History [...]
--- OUTSIDE RECORDS SUMMARY | 2018-08-23 17:34 | XMS REPORT ---
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 Name Role Phone DELEONROB MoranELE Unavailable PROBLEMS Type Condition ICD9-CM Code MJK20-CC Code Onset Dates Condition Status SNOMED Code Problem Neuropathy G62.9 Active 629241395 Problem Other hammer toe(s) (acquired), right foot M20.41 Active 679797865 Problem Other hammer toe(s) (acquired), left foot M20.42 Active 99576693 Problem Anxiety F41.9 Active 47881843 Problem Type 2 diabetes mellitus with diabetic neuropathy, unspecified E11.40 Active 44060624 Problem Hammer toe of left foot M20.42 Active 004759097 Problem Hyperlipemia E78.5 Active 66147697 Problem Hypertension I10 Active 82856081 Problem COPD with exacerbation J44.1 Active 245629698302070 Problem Tobacco abuse Z72.0 Active 787884818 Problem COPD with acute exacerbation J44.1 Active 765141393 Problem Back pain of lumbar region with sciatica M54.40 Active 359188928 Problem Allergic rhinitis J30.9 Active 52845224 Problem Anxiety associated with depression F41.8 Active 387409153 Problem Gastro-esophageal reflux disease without esophagitis K21.9 Active 425299893 Problem Emphysema, unspecified J43.9 Active 19880249 Problem Rheumatoid arthritis involving multiple sites with positive rheumatoid factor M05.79 Active 640501831 Problem Primary insomnia F51.01 Active 5655821 Problem Chronic pain G89.29 Active 57198665 Problem Periodontitis K05.30 Active 34981671 Problem Vitamin D deficiency E55.9 Active 93082254 Problem OAB (overactive bladder) N32.81 Active 465902870 Problem Dependence on nocturnal oxygen therapy Z99.81 Active [id number] ALLERGIES No Information ENCOUNTERS Encounter Location Date Diagnosis [facility] [address] [facility] [id number] [address] Oct, [facility] [address] [address] Aug, [facility] [address] [place] [address] July, [facility] [id number] [place] [address] July, [facility] [id number] [place] [address] July, Chronic pain G89.29 [facility] [id number] [place] [address] July, [facility] [address] [place] [address] July, Onychomycosis B35.1 ; Hammer toe of left foot M20.42 and Type 2 diabetes mellitus with diabetic neuropathy, unspecified E11.40 [facility] [address] [address] July, [facility] [id number] [place] [address] July, Chronic pain G89.29 and Neuropathy G62.9 [facility] [address] [address] July, [facility] [address], [place] [address] July, [facility] [address] [address] Jun, [facility] [address] [address] Jun, Chronic pain G89.29 [facility] [address], [place] [address] Jun, [facility] [address] [place] [address] Jun, [facility] [id number] [place] [address] Jun, Visit for TB skin test Z11.1 [facility] [address] [address] 16 Jun, 2017 [facility] [id number] [place] [address] Jun, [facility] [id number] [place] [address] Jun, Tobacco abuse Z72.0 and Rheumatoid arthritis involving multiple sites with positive rheumatoid factor M05.79 [facility] [id number] [place] [address] Jun, Anxiety F41.9 ; Acute non-recurrent maxillary sinusitis J01.00 and Chronic pain G89.29 [facility] [address] [place] [address] Jun, [facility] [id number] [place] [address] May, Rheumatoid arthritis involving multiple sites with positive rheumatoid factor M05.79 [facility] [address] [place] [address] May, Chronic pain G89.29 [facility] [address], [place] [address] May, [facility] [address], [place] [address] May, [facility] [id number] [place] [address] May, [facility] [address], [place] [address] May, Type 2 diabetes mellitus with diabetic neuropathy, unspecified E11.40 [facility] [id number] [place] [address] May, Type 2 diabetes mellitus with diabetic neuropathy, unspecified E11.40 ; Emphysema, unspecified J43.9 ; Hypertension I10 ; Hyperlipemia E78.5 ; Vitamin D deficiency E55.9 ; Right medial knee pain M25.561 ; Controlled substance agreement signed Z79.899 ; Chronic pain G89.29 ; Allergic rhinitis J30.9 ; Anxiety associated with depression F41.8 ; Neuropathy G62.9 and Gastro- esophageal reflux disease without esophagitis K21.9 [facility] [id number] [place] [address] Apr, Chronic pain G89.29 [facility] [id number] [place] [address] 16 Apr, 2017 Other hammer toe(s) (acquired), left foot M20.42 ; Other hammer toe(s) (acquired), right foot M20.41 ; Type 2 diabetes mellitus with diabetic neuropathy, unspecified E11.40 and Onychomycosis B35.1 [facility] [id number] [place] [address] 2017 Gastro-esophageal reflux disease without esophagitis K21.9 [facility] [id number] [place] [address] Apr, Controlled substance agreement signed Z79.899 [facility] [id number] [place] [address] Mar, Chronic pain G89.29 [facility] [id number] [place] [address] Mar, Emphysema, unspecified J43.9 and Type 2 diabetes mellitus with diabetic neuropathy, unspecified E11.40 [facility] [id number] [place] [address] Mar, Dysuria R30.0 ; Vaginal candidiasis B37.3 and Acute nonintractable headache, unspecified headache type R51 [facility] [id number] [place] [address] Feb, Neuropathy G62.9 and Chronic pain G89.29 [facility] [id number] [place] [address] Feb, Gastro-esophageal reflux disease without esophagitis K21.9 [facility] [id number] [place] [address] Feb, [facility] [id number] [place] [address] Feb, Rheumatoid arthritis involving multiple sites with positive rheumatoid factor M05.79 and COPD with acute exacerbation J44.1 [facility] [id number] [place] [address] Feb, Vaginal odor N89.8 ; Vaginal irritation N89.8 ; Candidal dermatitis B37.2 and Screening breast examination Z12.31 [facility] [id number] [place] [address] Feb, [facility] [id number] [place] [address] Feb, [facility] [id number] [place] [address] Feb, [facility] [id number] [place] [address] Feb, COPD with exacerbation J44.1 ; Tobacco abuse counseling Z71.6 ; Tobacco abuse Z72.0 ; Rheumatoid arthritis involving multiple sites with positive rheumatoid factor M05.79 and Hyperlipemia E78.5 [facility] [id number] [place] [address] Feb, [facility] [address] [place] [id number] Jan, [facility] [id number] [place] [address] Jan, Chronic pain G89.29 [facility] [id number] [place] [id number] 27 Jan, 2017 Dental examination Z01.20 [facility] [id number] [place] [address] 19 Jan, 2017 Back pain of lumbar region with sciatica M54.40 [facility]ALK IN [facility] [id number] [place] [address] 15 Jan, 2017 Acute bacterial conjunctivitis of both eyes H10.33 [facility] [id number] [place] [address] 02 Jan, 2017 Chronic pain G89.29 [facility] [id number] [place] [address] 31 Dec, 2016 Type 2 diabetes mellitus with diabetic neuropathy, unspecified E11.40 ; Hypertension I10 ; Hyperlipemia E78.5 ; Gastro-esophageal reflux disease without esophagitis K21.9 ; Anxiety associated with depression F41.8 ; Allergic rhinitis J30.9 ; Neuropathy G62.9 and Dependence on nocturnal oxygen therapy Z99.81 [facility] [id number] [place] [address] Dec, [facility] [id number] [place] [address] Dec, [facility] [id number] [place] [address] 09 Dec, 2016 Encounter for immunization Z23 [facility] [id number] [place] [address] 05 Dec, 2016 Type 2 diabetes mellitus with diabetic neuropathy, unspecified E11.40 and Chronic pain G89.29 [facility] [id number] [place] [address] 11 Nov, 2016 Gastro-esophageal reflux disease without esophagitis K21.9 [facility] [id number] [place] [address] Nov, Peripheral edema R60.9 and Chest pain in adult R07.9 [facility] [id number] [place] [address] 07 Nov, 2016 Chronic pain G89.29 [facility] [id number] [place] [address] 31 Oct, 2016 [facility] [id number] [place] [address] Oct, [facility] [id number] [place] [address] 17 Oct, 2016 Rheumatoid arthritis with rheumatoid factor of right wrist without organ or systems involvement M05.731 [facility] [address] [address] 15 Oct, 2016 [facility] [id number] [place] [address] Oct, Acute exacerbation of chronic obstructive pulmonary disease (COPD) J44.1 and Canker sore K12.0 [facility] [id number] [place] [address] Oct, [facility] [id number] [place] [address] Oct, [facility] [id number] [place] [address] Oct, Chronic pain G89.29 [facility] [id number] [place] [address] [id number] Oct, Dental examination Z01.20 [facility] [address] [place] [address] Oct, Dental examination Z01.20 and Periodontitis K05.30 [facility] [id number] [place] [id number] Oct, Dental examination Z01.20 [facility] [id number] [place] [address] Sep, Abscess L02.91 [facility] [address], [place] [address] Sep, Dental examination Z01.20 [facility] [address] [place] [address] Sep, [facility] [address] [id number] Sep, Dental examination Z01.20 and Dental caries K02.9 [facility] [id number] [place] [address] Sep, Primary insomnia F51.01 and Anxiety associated with depression F41.8 [facility] [id number] [place] [address] Sep, Rheumatoid arthritis with rheumatoid factor of right wrist without organ or systems involvement M05.731 [facility] [id number] [place] [address] Sep, Chronic pain G89.29 [facility] [id number] [place] [address] Sep, Type 2 diabetes mellitus with diabetic neuropathy, unspecified E11.40 ; Emphysema, unspecified J43.9 ; Gastro-esophageal reflux disease without esophagitis K21.9 ; Hypertension I10 ; Hyperlipemia E78.5 ; Anxiety associated with depression F41.8 ; Chronic pain G89.29 ; Vitamin D deficiency E55.9 and Primary insomnia F51.01 [facility] [address] [place] [address] 16 Aug, 2016 Anxiety associated with depression F41.8 [facility] [id number] [place] [address] Aug, Chronic pain G89.29 and Neuropathy G62.9 [facility] [address] [place] [address] Aug, Type 2 diabetes mellitus with diabetic neuropathy, unspecified E11.40 ; Rheumatoid arthritis involving multiple sites with positive rheumatoid factor M05.79 ; Vitamin D deficiency E55.9 ; Anxiety associated with depression F41.8 and Primary insomnia F51.01 [facility] [address] [address] July, Emphysema, unspecified J43.9 [facility] [address] [address] July, Allergic rhinitis J30.9 [facility] [address] [address] July, Allergic rhinitis J30.9 ; Emphysema, unspecified J43.9 and Rheumatoid arthritis with rheumatoid factor of right wrist without organ or systems involvement M05.731 [facility] [address] [address] July, Neuropathy G62.9 and Chronic pain G89.29 [facility] [address] [address] July, Rheumatoid arthritis involving multiple sites with positive rheumatoid factor M05.79 [facility] [address] [address] Jun, [facility] [address] [address] Jun, Neuropathy G62.9 and Chronic pain G89.29 [facility] [address] [address] May, Neuropathy G62.9 and Chronic pain G89.29 [facility] [id number] [place] [address] May, [facility] [address] [address] May, [facility] [id number] [place] [address] May, Type 2 diabetes mellitus with diabetic [...] system involvement with positive rheumatoid factor M05.732 [facility] [address] [address] 14 Apr, 2016 Chronic pain G89.29 [facility] [address] [address] Mar, Gastro-esophageal reflux disease without esophagitis K21.[address] [address] Mar, [address] [address] Mar, Rheumatoid arthritis with rheumatoid factor of right wrist without organ or systems involvement M05.731 [facility] [address] [address] Mar, Chronic pain G89.29 [facility] [address] [address] Feb, Hyperlipemia E78.5 [facility] [address] [address] Feb, Abnormal breath sounds R06.89 ; COPD with exacerbation J44.1 and Fatigue, unspecified type R53.[address] [address] Feb, Neuropathy G62.9 ; Abnormal lung sounds R09.89 and Bronchitis J40 [facility] [address] [address] Feb, Bronchitis J40 [facility] [address], [place] [address] Feb, Chronic pain G89.29 [facility] [id number] [place] [address] Jan, Type 2 diabetes mellitus with diabetic neuropathy, unspecified E11.40 ; Rheumatoid arthritis with rheumatoid factor of right wrist without organ or systems involvement M05.731 and Hyperlipemia E78.5 [facility] [address] [place] [address] Jan, Rheumatoid arthritis with rheumatoid factor of right wrist without organ or systems involvement M05.731 [facility] [address] [place] [address] Jan, De Quervain's disease (radial styloid tenosynovitis) M65.4 ; Closed nondisplaced fracture of scaphoid of left wrist, unspecified portion of scaphoid, initial encounter S62.002A and Peripheral tear of medial meniscus of left knee, unspecified whether old or current tear, initial encounter S83.222A [facility] [address] [place] [address] Jan, Hypertension I10 ; Type 2 diabetes mellitus with diabetic neuropathy, unspecified E11.40 ; Hyperlipemia E78.5 ; Allergic rhinitis J30.9 ; Neuropathy G62.9 ; Rheumatoid arthritis with rheumatoid factor of right wrist without organ or systems involvement M05.731 ; Acute non-recurrent maxillary sinusitis J01.00 and Chronic pain G89.29 [facility] [address], [place] [address] Dec, [facility] [id number] [place] [address] Dec, [facility] [address] [place] [address] Dec, Type 2 diabetes mellitus with diabetic neuropathy, unspecified E11.40 ; Emphysema, unspecified J43.9 ; Gastro-esophageal reflux disease without esophagitis K21.9 ; Hypertension I10 ; Hyperlipemia E78.5 ; Rheumatoid arthritis with rheumatoid factor of right wrist without organ or systems involvement M05.731 ; Elevated white blood cell count, unspecified D72.829 ; Acute non- recurrent frontal sinusitis J01.10 and Chronic pain G89.29 [facility] [id number] [place] [address] Nov, [facility] [address] [address] Nov, Elevated white blood cell count, unspecified D72.829 ; Encounter for immunization Z23 ; Rheumatoid arthritis with rheumatoid factor of right wrist without organ or systems involvement M05.731 ; Injury of left hand S69.92XA ; Pain in left knee M25.562 and Other chronic pain G89.29 [facility] [address] [address] Nov, [place] [facility] [address] [address] Nov, [place] [facility] [address] [address] Oct, [facility] [address] [address] Oct, Hyperlipemia E78.5 [facility] [address] [address] Oct, [facility] [address] [address] Oct, Type 2 diabetes mellitus with diabetic neuropathy, unspecified E11.40 ; Neuropathy G62.9 ; Hypertension I10 ; Chronic pain G89.29 and Hyperlipemia E78.5 [facility] [address] [address] Oct, Emphysema, unspecified J43.9 and Rheumatoid arthritis of left wrist without organ or system involvement with positive rheumatoid factor M05.732 [facility] [address] [place] [address] Sep, Chronic pain syndrome G89.4 [facility] [id number] [place] [address] Sep, [facility] [id number] [place] [address] Sep, [facility] [id number] [place] [address] Sep, Closed nondisplaced fracture of scaphoid of left wrist, unspecified portion of scaphoid, initial encounter S62.002A [facility] [address] [place] [address] Sep, Type 2 diabetes mellitus with diabetic neuropathy, unspecified E11.40 ; Hypertension I10 ; Hyperlipemia E78.5 and Acute non-recurrent maxillary sinusitis J01.00 [facility] [address] [place] [address] Sep, [facility] [id number] [place] [address] Sep, [facility] [id number] [place] [address] Sep, [facility] [id number] [place] [address] Sep, [facility] [id number] [place] [address] Aug, Epigastric pain R10.13 and Right upper quadrant pain R10.11 [facility] [id number] [place] [address] Aug, Closed nondisplaced fracture of scaphoid of left wrist, unspecified portion of scaphoid, initial encounter S62.002A [facility] [id number] [place] [address] Aug, [facility] [address] [place] [address] Aug, [facility] [id number] [place] [address] Aug, Shortness of breath R06.02 ; Epigastric pain R10.13 and Injury of left lower arm, initial encounter S59.912A [facility] [address] [place] [address] Aug, Coronary artery disease involving [place] heart with angina pectoris, unspecified vessel or lesion type I25.119 ; Pulmonary emphysema, unspecified emphysema type J43.9 and Snoring R06.83 [facility] [id number] [place] [address] Aug, [facility] [address] [place] [address] Aug, Emphysema, unspecified J43.9 ; Atherosclerotic heart disease of [place] coronary artery without angina pectoris I25.10 and Hypertension I10 [facility] [id number] [place] [address] July, [facility] [id number] [place] [address] July, Closed nondisplaced fracture of scaphoid of left wrist, unspecified portion of scaphoid, initial encounter S62.002A [facility] [id number] [place] [phone] July, [facility] [id number] [place] [phone] July, Type 2 diabetes mellitus with diabetic neuropathy, unspecified E11.40 ; Emphysema, unspecified J43.9 ; Atherosclerotic heart disease of [place] coronary artery without angina pectoris I25.10 ; [...] L24.89 and Hospital discharge follow-up Z09 [facility] [id number] [place] [phone] July, [facility] [id number] [place] [phone] July, Type 2 diabetes mellitus with diabetic neuropathy, unspecified E11.40 [facility] [id number] [place] [phone] July, Type 2 diabetes mellitus with diabetic neuropathy, unspecified E11.40 and Rheumatoid arthritis of left wrist without organ or system involvement with positive rheumatoid factor M05.732 [facility] [id number] [place] [phone] July, [facility] [id number] [place] [id number] July, [facility] [id number] [place] [address] Jun, [facility] [id number] [place] [address] Jun, [facility] [id number] [place] [address] Jun, 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 [facility] [id number] [place] [address] Jun, [facility] [id number] [place] [address] Jun, 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 [facility] [id number] [place] [address] Jun, [facility] [id number] [place] [address] Jun, [facility] [address] [address] Jun, Encounter for PPD test Z11.1 ; Rheumatoid arthritis with rheumatoid factor of right wrist without organ or systems involvement M05.731 and Rheumatoid arthritis of left wrist without organ or system involvement with positive rheumatoid factor M05.732 [place] [address] [address] Jun, Type 2 diabetes mellitus with diabetic neuropathy, unspecified E11.40 [place] [address] [address] May, Type 2 diabetes mellitus with diabetic neuropathy, unspecified E11.40 ; Emphysema, unspecified J43.9 ; Rheumatoid arthritis with rheumatoid factor of right wrist without organ or systems involvement M05.731 ; Rheumatoid arthritis of left wrist without organ or system involvement with positive rheumatoid factor M05.732 and Chronic pain G89.29 [place] [address] [address] May, [place] [address] [address] May, Swelling of hand joint M25.449 ; Ankle swelling M25.473 and Joint pain M25.50 [place] [address] [address] May, Emphysema, unspecified J43.9 [place] [address] [address] May, Gastroenteritis K52.9 and Hypertension I10 [place] [address] [address] Apr, [place] [address] [address] Apr, [place] [address] [address] Apr, [place] [address] [address] Apr, Type 2 diabetes mellitus with diabetic neuropathy, unspecified E11.40 ; Emphysema, unspecified J43.9 ; Atherosclerotic heart disease of [place] coronary artery without angina pectoris I25.10 ; Migraine without aura, not intractable, with status migrainosus G43.001 ; Gastro-esophageal reflux disease without esophagitis K21.9 ; CAD (coronary artery disease) I25.10 ; Hypertension I10 ; Hyperlipemia E78.5 ; Allergic rhinitis J30.9 ; Neuropathy G62.9 ; Anxiety associated with depression F41.8 and Injury of left hand S69.92XA [address] [address] Apr, [address] [address] Apr, [address] [address] Apr, Type 2 diabetes mellitus with diabetic neuropathy, unspecified E11.40 ; Emphysema, unspecified J43.9 ; Essential (primary) hypertension I10 ; Atherosclerotic heart disease of [place] coronary artery without angina pectoris I25.10 ; Gastro-esophageal reflux disease without esophagitis K21.9 ; CAD (coronary artery disease) I25.10 ; Hyperlipemia E78.5 ; Hypertension I10 ; History of solitary pulmonary nodule Z87.898 ; Allergic rhinitis J30.9 ; Chronic pain G89.29 and Depression with anxiety F41.8 [place] [id number] [place] [address] Mar, [address] [address] Mar, Allergic rhinitis J30.9 ; URI (upper respiratory infection) J06.9 and Other viral agents as the cause of diseases classified elsewhere B97.89 [facility] [id number] [place] [address] Feb, Acute nasopharyngitis [common cold] J00 and Acute diarrhea R19.[id number] [place] [address] Feb, Depression F32.9 [place] [address] [address] Jan, Otitis media, right H66.91 [place] [address] [address] Jan, [place] [address] [address] Jan, Type 2 diabetes mellitus with diabetic neuropathy, unspecified E11.40 [place] [address] [address] Jan, [place] [address] [address] Jan, Hyperlipemia E78.5 [place] [address] [address] Jan, Type 2 diabetes mellitus with diabetic neuropathy, unspecified E11.40 ; Emphysema, unspecified J43.9 ; CAD (coronary artery disease) I25.10 and Hyperlipemia E78.5 [place] [id number] [place] [address] Dec, Allergic rhinitis J30.9 and Fungal infection B49 [place] [id number] [place] [address] Dec, [place] [id number] [place] [address] Dec, [place] [address] [address] Dec, Chest pain R07.9 ; CAD (coronary artery disease) I25.10 ; Hypertension I10 and Hyperlipemia E78.5 [place] [id number] [place] [address] 08 Dec, 2014 Pain in thoracic spine M54.6 ; Gastro-esophageal reflux disease without esophagitis K21.9 ; Emphysema, unspecified J43.9 and Migraine without aura, not intractable, with status migrainosus G43.001 [place] [id number] [place] [address] Dec, [place] [id number] [place] [address] Nov, Influenza vaccine administered V04.81 [place] [address] [address] Nov, [place] [address] [address] Sep, [place] [address] [address] Sep, [place] [id number] [place] [address] Sep, CAD (coronary artery disease) 414.00 and Diabetes type 2, uncontrolled 250.02 [place] [id number] [place] [address] Sep, CAD (coronary artery disease) 414.00 ; [...] unspecified Medical History Atherosclerotic heart disease of [place] coronary artery without angina pectoris Medical History [...]
--- OUTSIDE RECORDS SUMMARY | 2018-08-23 17:35 | XMS REPORT ---
Author Author DELEONROB MoranELE Organization [facility] Address [address] [place] [address] Care Team Providers Care Patient Account Representative Name Role Phone DELEONCLAU Moran Unavailable PROBLEMS Type Condition ICD9-CM Code TIA57-QN Code Onset Dates Condition Status SNOMED Code Problem Dependence on nocturnal oxygen therapy Z99.81 Active 52230987573025 Problem Other hammer toe(s) (acquired), left foot M20.42 Active 72370889 Problem Neuropathy G62.9 Active 556250911 Problem Anxiety F41.9 Active 61337283 Problem Hyperlipemia E78.5 Active 82847653 Problem COPD with acute exacerbation J44.1 Active 385945545 Problem Hypertension I10 Active 15079488 Problem Vitamin D deficiency E55.9 Active 44523447 Problem Tobacco abuse Z72.0 Active 937367915 Problem Other hammer toe(s) (acquired), right foot M20.41 Active 119254066 Problem Back pain of lumbar region with sciatica M54.40 Active 734797364 Problem COPD with exacerbation J44.1 Active 353044518498530 Problem Emphysema, unspecified J43.9 Active 44148585 Problem Allergic rhinitis J30.9 Active 59931450 Problem Type 2 diabetes mellitus with diabetic neuropathy, unspecified E11.40 Active 36542530 Problem Gastro-esophageal reflux disease without esophagitis K21.9 Active 181058716 Problem OAB (overactive bladder) N32.81 Active 077701901 Problem Rheumatoid arthritis involving multiple sites with positive rheumatoid factor M05.79 Active 511372286 Problem Anxiety associated with depression F41.8 Active 820525225 Problem Primary insomnia F51.01 Active 8784199 Problem Chronic pain G89.29 Active 81869060 Problem Periodontitis K05.30 Active 92597486 ALLERGIES No Information ENCOUNTERS Encounter Location Date Diagnosis [facility] [address] [facility] [id number] [address] Aug, [facility] [id number] [place] [address] July, [facility] [id number] [place] [address] July, Chronic pain G89.29 and Neuropathy G62.9 [facility] [id number] [place] [address] July, [facility] [id number] [place] [address] July, [facility] [id number] [place] [address] Jun, [facility] [id number] [place] [address] Jun, Chronic pain G89.29 [facility] [id number] [place] [address] Jun, [facility] [id number] [place] [address] Jun, [facility] [id number] [place] [address] Jun, Visit for TB skin test Z11.1 [facility] [id number] [place] [address] 16 Jun, 2017 [facility] [id number] [place] [address] Jun, [facility] [id number] [place] [address] Jun, Tobacco abuse Z72.0 and Rheumatoid arthritis involving multiple sites with positive rheumatoid factor M05.79 [facility] [id number] [place] [address] Jun, Anxiety F41.9 ; Acute non-recurrent maxillary sinusitis J01.00 and Chronic pain G89.29 [facility] [id number] [address] Jun, [place] [id number] [place] [address] May, Rheumatoid arthritis involving multiple sites with positive rheumatoid factor M05.79 [place] [id number] [place] [address] May, Chronic pain G89.29 [place] [id number] [place] [address] May, [place] [id number] [place] [address] May, [place] [id number] [place] [address] May, [place] [id number] [place] [address] May, Type 2 diabetes mellitus with diabetic neuropathy, unspecified E11.40 [place] [id number] [place] [address] May, Type 2 diabetes mellitus with diabetic [...] reflux disease without esophagitis K21.9 [place] [id number] [place] [address] Apr, Chronic pain G89.29 [place] [id number] [place] [address] 16 Apr, 2017 Other hammer toe(s) (acquired), left foot M20.42 ; Other hammer toe(s) (acquired), right foot M20.41 ; Type 2 diabetes mellitus with diabetic neuropathy, unspecified E11.40 and Onychomycosis B35.1 [facility] [id number] [place] [address] 2017 Gastro-esophageal reflux disease without esophagitis K21.9 [place] [id number] [place] [address] 02 Apr, 2017 Controlled substance agreement signed Z79.899 [place] [address] [address] Mar, Chronic pain G89.29 [place] [id number] [place] [address] Mar, Emphysema, unspecified J43.9 and Type 2 diabetes mellitus with diabetic neuropathy, unspecified E11.40 [facility] [id number] [place] [address] Mar, Dysuria R30.0 ; Vaginal candidiasis B37.3 and Acute nonintractable headache, unspecified headache type R51 [place] [id number] [place] [address] Feb, Neuropathy G62.9 and Chronic pain G89.29 [place] [id number] [place] [address] Feb, Gastro-esophageal reflux disease without esophagitis K21.9 [place] [id number] [place] [address] Feb, [place] [id number] [place] [address] Feb, Rheumatoid arthritis involving multiple sites with positive rheumatoid factor M05.79 and COPD with acute exacerbation J44.1 [place] [address] [address] Feb, Vaginal odor N89.8 ; Vaginal irritation N89.8 ; Candidal dermatitis B37.2 and Screening breast examination Z12.31 [place] [id number] [place] [address] Feb, [facility] [id number] [place] [address] Feb, [place] [id number] [place], [place] [address] Feb, [place] [id number] [place] [address] Feb, COPD with exacerbation J44.1 ; Tobacco abuse counseling Z71.6 ; Tobacco abuse Z72.0 ; Rheumatoid arthritis involving multiple sites with positive rheumatoid factor M05.79 and Hyperlipemia E78.5 [place] [id number] [place] [address] Feb, [facility] [id number] [place] [id number] Jan, [place] [id number] [place] [address] Jan, Chronic pain G89.29 [facility] [address] [id number] Jan, Dental examination Z01.20 [facility] [address] [place] [id number] [place] [address] Jan, Back pain of lumbar region with sciatica M54.40 [facility] [address] [place] [id number] [place] [address] 15 Jan, 2017 Acute bacterial conjunctivitis of both eyes H10.33 [facility] [id number] [place] [address] 02 Jan, 2017 Chronic pain G89.29 [facility] [id number] [place] [address] Dec, Type 2 diabetes mellitus with diabetic neuropathy, unspecified E11.40 ; Hypertension I10 ; Hyperlipemia E78.5 ; Gastro-esophageal reflux disease without esophagitis K21.9 ; Anxiety associated with depression F41.8 ; Allergic rhinitis J30.9 ; Neuropathy G62.9 and Dependence on nocturnal oxygen therapy Z99.81 [place] [address] [address] 12 Dec, 2016 [place] [address] [address] 12 Dec, 2016 [place] [address] [address] 09 Dec, 2016 Encounter for immunization Z23 [place] [address] [address] 05 Dec, 2016 Type 2 diabetes mellitus with diabetic neuropathy, unspecified E11.40 and Chronic pain G89.29 [facility] [address] [address] 11 Nov, 2016 Gastro-esophageal reflux disease without esophagitis K21.9 [place] [address] [address] 11 Nov, 2016 Peripheral edema R60.9 and Chest pain in adult R07.9 [place] [address] [address] 07 Nov, 2016 Chronic pain G89.29 [facility] [address] [address] 31 Oct, 2016 [place] [address] [address] Oct, [place] [address] [address] 17 Oct, 2016 Rheumatoid arthritis with rheumatoid factor of right wrist without organ or systems involvement M05.731 [place] [address] [address] 15 Oct, 2016 [facility] [id number] [place] [address] 14 Oct, 2016 Acute exacerbation of chronic obstructive pulmonary disease (COPD) J44.1 and Canker sore K12.0 [facility] [id number] [place] [address] Oct, [facility] [id number] [place] [address] Oct, [facility] [id number] [place] [address] Oct, Chronic pain G89.29 [facility] [address] [id number] Oct, Dental examination Z01.20 [facility] [id number] [place] [address] Oct, Dental examination Z01.20 and Periodontitis K05.30 [facility] [id number] [place] [id number] Oct, Dental examination Z01.20 [facility] [id number] [place] [address] Sep, Abscess L02.91 [facility] [id number] [place] [address] Sep, Dental examination Z01.20 [facility] [id number] [place] [address] Sep, [facility] [id number] [place] [id number] Sep, Dental examination Z01.20 and Dental caries K02.9 [facility] [id number] [place] [address] Sep, Primary insomnia F51.01 and Anxiety associated with depression F41.8 [place] [id number] [place] [address] Sep, Rheumatoid arthritis with rheumatoid factor of right wrist without organ or systems involvement M05.731 [place] [id number] [place] [address] Sep, Chronic pain G89.29 [facility] [id number] [place] [address] Sep, Type 2 diabetes mellitus with diabetic neuropathy, unspecified E11.40 ; Emphysema, unspecified J43.9 ; Gastro-esophageal reflux disease without esophagitis K21.9 ; Hypertension I10 ; Hyperlipemia E78.5 ; Anxiety associated with depression F41.8 ; Chronic pain G89.29 ; Vitamin D deficiency E55.9 and Primary insomnia F51.01 [place] [id number] [place] [address] 16 Aug, 2016 Anxiety associated with depression F41.8 [place] [address] [address] Aug, Chronic pain G89.29 and Neuropathy G62.[address] [address] Aug, Type 2 diabetes mellitus with diabetic neuropathy, unspecified E11.40 ; Rheumatoid arthritis involving multiple sites with positive rheumatoid factor M05.79 ; Vitamin D deficiency E55.9 ; Anxiety associated with depression F41.8 and Primary insomnia F51.01 [place] [id number] [place] [address] July, Emphysema, unspecified J43.9 [facility] [place] [id number] [place] [address] July, Allergic rhinitis J30.9 [place] [address] [address] July, Allergic rhinitis J30.9 ; Emphysema, unspecified J43.9 and Rheumatoid arthritis with rheumatoid factor of right wrist without organ or systems involvement M05.731 [place] [id number] [place] [address] July, Neuropathy G62.9 and Chronic pain G89.29 [place] [address] [address] July, Rheumatoid arthritis involving multiple sites with positive rheumatoid factor M05.79 [place] [id number] [place] [address] Jun, [place] [id number] [place] [address] Jun, Neuropathy G62.9 and Chronic pain G89.29 [place] [id number] [place] [address] May, Neuropathy G62.9 and Chronic pain G89.29 [place] [id number] [place] [address] May, [place] [id number] [place] [address] May, [facility] [place] [id number] [place] [address] May, Type 2 diabetes mellitus with diabetic [...] with positive rheumatoid factor M05.732 [place] [address] [place] [address] Apr, Chronic pain G89.29 [place] [id number] [place] [address] Mar, Gastro-esophageal reflux disease without esophagitis K21.9 [place] [id number] [place] [address] Mar, [facility] [place] [id number] [place] [address] Mar, Rheumatoid arthritis with rheumatoid factor of right wrist without organ or systems involvement M05.731 [facility] [place] [id number] [place] [address] Mar, Chronic pain G89.29 [facility] [place] [id number] [place] [address] Feb, Hyperlipemia E78.5 [place] [address] [address] Feb, Abnormal breath sounds R06.89 ; COPD with exacerbation J44.1 and Fatigue, unspecified type R53.83 [place] [id number] [place] [address] Feb, Neuropathy G62.9 ; Abnormal lung sounds R09.89 and Bronchitis J40 [facility] [id number] [place] [address] Feb, Bronchitis J40 [place] [id number] [place] [address] Feb, Chronic pain G89.29 [facility] [place] [id number] [place] [address] Jan, Type 2 diabetes mellitus with diabetic neuropathy, unspecified E11.40 ; Rheumatoid arthritis with rheumatoid factor of right wrist without organ or systems involvement M05.731 and Hyperlipemia E78.5 [place] [id number] [place] [address] Jan, Rheumatoid arthritis with rheumatoid factor of right wrist without organ or systems involvement M05.731 [place] [id number] [place] [address] Jan, De Quervain's disease (radial styloid tenosynovitis) M65.4 ; Closed nondisplaced fracture of scaphoid of left wrist, unspecified portion of scaphoid, initial encounter S62.002A and Peripheral tear of medial meniscus of left knee, unspecified whether old or current tear, initial encounter S83.222A [place] [address] [address] Jan, Hypertension I10 ; Type 2 diabetes mellitus with diabetic neuropathy, unspecified E11.40 ; Hyperlipemia E78.5 ; Allergic rhinitis J30.9 ; Neuropathy G62.9 ; Rheumatoid arthritis with rheumatoid factor of right wrist without organ or systems involvement M05.731 ; Acute non-recurrent maxillary sinusitis J01.00 and Chronic pain G89.29 [place] [address] [address] Dec, [place] [address] [address] Dec, [place] [address] [address] Dec, Type 2 diabetes mellitus with diabetic neuropathy, unspecified E11.40 ; Emphysema, unspecified J43.9 ; Gastro-esophageal reflux disease without esophagitis K21.9 ; Hypertension I10 ; Hyperlipemia E78.5 ; Rheumatoid arthritis with rheumatoid factor of right wrist without organ or systems involvement M05.731 ; Elevated white blood cell count, unspecified D72.829 ; Acute non- recurrent frontal sinusitis J01.10 and Chronic pain G89.29 [facility] [id number] [place] [address] Nov, [place] [address] [address] Nov, Elevated white blood cell count, unspecified D72.829 ; Encounter for immunization Z23 ; Rheumatoid arthritis with rheumatoid factor of right wrist without organ or systems involvement M05.731 ; Injury of left hand S69.92XA ; Pain in left knee M25.562 and Other chronic pain G89.29 [place] [id number] [place] [address] Nov, [place] [address] [address] Nov, [facility] [place] [id number] [place] [address] Oct, [place] [id number] [place], [place] [address] Oct, Hyperlipemia E78.5 [place] [id number] [place] [address] Oct, [place] [id number] [place] [address] Oct, Type 2 diabetes mellitus with diabetic neuropathy, unspecified E11.40 ; Neuropathy G62.9 ; Hypertension I10 ; Chronic pain G89.29 and Hyperlipemia E78.5 [place] [id number] [place] [address] Oct, Emphysema, unspecified J43.9 and Rheumatoid arthritis of left wrist without organ or system involvement with positive rheumatoid factor M05.732 [place] [id number] [place] [address] Sep, Chronic pain syndrome G89.4 [facility] [id number] [place] [address] Sep, [place] [id number] [place] [address] Sep, [place] [id number] [place] [address] Sep, Closed nondisplaced fracture of scaphoid of left wrist, unspecified portion of scaphoid, initial encounter S62.002A [facility] [id number] [place] [address] Sep, Type 2 diabetes mellitus with diabetic neuropathy, unspecified E11.40 ; Hypertension I10 ; Hyperlipemia E78.5 and Acute non-recurrent maxillary sinusitis J01.00 [place] [id number] [place], [place] [address] Sep, [facility] [address] [address] Sep, [facility] [address] [address] Sep, [facility] [address] [address] Sep, [facility] [address] [place] [address] Aug, Epigastric pain R10.13 and Right upper quadrant pain R10.11 [place] [address] [place] [address] Aug, Closed nondisplaced fracture of scaphoid of left wrist, unspecified portion of scaphoid, initial encounter S62.002A [facility] [id number] [place] [address] Aug, [place] [address] [place] [address] Aug, [facility] [address] [place] [address] Aug, Shortness of breath R06.02 ; Epigastric pain R10.13 and Injury of left lower arm, initial encounter S59.912A [place] [address] [address] Aug, Coronary artery disease involving [place] heart with angina pectoris, unspecified vessel or lesion type I25.119 ; Pulmonary emphysema, unspecified emphysema type J43.9 and Snoring R06.83 [place] [address] [address] Aug, [facility] [address] [address] Aug, Emphysema, unspecified J43.9 ; Atherosclerotic heart disease of [place] coronary artery without angina pectoris I25.10 and Hypertension I10 [place] [address] [place] [address] July, [place] [id number] [place] [address] July, Closed nondisplaced fracture of scaphoid of left wrist, unspecified portion of scaphoid, initial encounter S62.002A [place] [id number] [place] [address] July, [place] [id number] [place] [address] July, Type 2 diabetes mellitus with diabetic neuropathy, unspecified E11.40 ; Emphysema, unspecified J43.9 ; Atherosclerotic heart disease of [place] coronary artery without angina pectoris I25.10 ; [...] and Hospital discharge follow-up Z09 [place] [address] [place] [address] July, [place] [id number] [place] [address] July, Type 2 diabetes mellitus with diabetic neuropathy, unspecified E11.40 [place] [address] [place] [address] July, Type 2 diabetes mellitus with diabetic neuropathy, unspecified E11.40 and Rheumatoid arthritis of left wrist without organ or system involvement with positive rheumatoid factor M05.732 [place] [address] [place] [id number] July, [place] [address] [place] [id number] [place] [id number] July, [facility] [id number] [address] Jun, [facility] [address] [place] [id number] [place] [id number] Jun, [facility] [address] [place] [id number] [place] [id number] Jun, 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 [facility] [address] [place] [id number] [place] [id number] Jun, [facility] [address] [place] [address] [id number] [place] [id number] Jun, 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 [place] [address] [place] [id number] [place] [phone] Jun, [place] [address] [place] [id number] [place] [id number] Jun, [facility] [address] [place] [id number] [place] [id number] Jun, Encounter for PPD test Z11.1 ; Rheumatoid arthritis with rheumatoid factor of right wrist without organ or systems involvement M05.731 and Rheumatoid arthritis of left wrist without organ or system involvement with positive rheumatoid factor M05.732 [place] [id number] [place] [address] Jun, Type 2 diabetes mellitus with diabetic neuropathy, unspecified E11.40 [place] [id number] [place] [address] May, Type 2 diabetes mellitus with diabetic neuropathy, unspecified E11.40 ; Emphysema, unspecified J43.9 ; Rheumatoid arthritis with rheumatoid factor of right wrist without organ or systems involvement M05.731 ; Rheumatoid arthritis of left wrist without organ or system involvement with positive rheumatoid factor M05.732 and Chronic pain G89.29 [place] [id number] [place] [address] May, [place] [address] [address] [place] [id number] [place] [address] May, Swelling of hand joint M25.449 ; Ankle swelling M25.473 and Joint pain M25.50 [place] [address] [place] [id number] [place] [address] May, Emphysema, unspecified J43.9 [place] [address] [address] May, Gastroenteritis K52.9 and Hypertension I10 [place] [address] [place] [id number] [place] [address] Apr, [place] [address] [address] Apr, [place] [address] [address] Apr, [place] [address] [place] [id number] [place] [address] Apr, Type 2 diabetes mellitus with diabetic neuropathy, unspecified E11.40 ; Emphysema, unspecified J43.9 ; Atherosclerotic heart disease of [place] coronary artery without angina pectoris I25.10 ; Migraine without aura, not intractable, with status migrainosus G43.001 ; Gastro-esophageal reflux disease without esophagitis K21.9 ; CAD (coronary artery disease) I25.10 ; Hypertension I10 ; Hyperlipemia E78.5 ; Allergic rhinitis J30.9 ; Neuropathy G62.9 ; Anxiety associated with depression F41.8 and Injury of left hand S69.92XA [place] [address] [place] [id number] [place] [address] Apr, [place] [address] [place] [id number] [place] [address] Apr, [place] [address] [place] [id number] [place] [address] Apr, Type 2 diabetes mellitus with diabetic neuropathy, unspecified E11.40 ; Emphysema, unspecified J43.9 ; Essential (primary) hypertension I10 ; Atherosclerotic heart disease of [place] coronary artery without angina pectoris I25.10 ; Gastro-esophageal reflux disease without esophagitis K21.9 ; CAD (coronary artery disease) I25.10 ; Hyperlipemia E78.5 ; Hypertension I10 ; History of solitary pulmonary nodule Z87.898 ; Allergic rhinitis J30.9 ; Chronic pain G89.29 and Depression with anxiety F41.[address] [address] Mar, [address] [address] Mar, Allergic rhinitis J30.9 ; URI (upper respiratory infection) J06.9 and Other viral agents as the cause of diseases classified elsewhere B97.89 [facility] [address] [place] [address] Feb, Acute nasopharyngitis [common cold] J00 and Acute diarrhea R19.[address] [address] Feb, Depression F32.[address] [address] Jan, Otitis media, right H66.[address] [address] Jan, [address] [address] Jan, Type 2 diabetes mellitus with diabetic neuropathy, unspecified E11.[address] [address] Jan, [address] [address] Jan, Hyperlipemia E78.[address] [address] Jan, Type 2 diabetes mellitus with diabetic neuropathy, unspecified E11.40 ; Emphysema, unspecified J43.9 ; CAD (coronary artery disease) I25.10 and Hyperlipemia E78.[address] [address] Dec, Allergic rhinitis J30.9 and Fungal infection B49 [address] [address] Dec, [address] [address] Dec, [address] [address] Dec, Chest pain R07.9 ; CAD (coronary artery disease) I25.10 ; Hypertension I10 and Hyperlipemia E78.[address] [address] Dec, Pain in thoracic spine M54.6 ; Gastro-esophageal reflux disease without esophagitis K21.9 ; Emphysema, unspecified J43.9 and Migraine without aura, not intractable, with status migrainosus G43.[address] [address] Dec, [address] [address] Nov, Influenza vaccine administered V04.[address] [address] Nov, [address] [address] Sep, [address] [address] Sep, [address] [address] Sep, CAD (coronary artery disease) 414.00 and Diabetes type 2, uncontrolled 250.02 [facility] [address] [facility] [id number] [place] [address] Sep, CAD (coronary artery disease) 414.00 ; Diabetes type 2, uncontrolled 250.02 and Migraine 346.90 IMMUNIZATIONS No Known Immunizations SOCIAL HISTORY Never Assessed REASON FOR VISIT lyrica refill PLAN OF CARE VITAL SIGNS MEDICATIONS Medication Instructions Dosage Frequency Start Date End Date Duration Status Lyrica 75 MG Orally Twice a day 1 capsule 12h 28 Active RESULTS No Results PROCEDURES No Known [...] unspecified Medical History Atherosclerotic heart disease of [place] coronary artery without angina pectoris Medical History [...]
--- OUTSIDE RECORDS SUMMARY | 2018-08-23 17:35 | XMS REPORT ---
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 Name Role Phone DELEONCLAU Moran Unavailable PROBLEMS Type Condition ICD9-CM Code PEH88-YO Code Onset Dates Condition Status SNOMED Code Problem Primary insomnia F51.01 Active 7614934 Problem Neuropathy G62.9 Active 980914651 Problem Periodontitis K05.30 Active 74085738 Problem Atherosclerotic heart disease of [place] coronary artery without angina pectoris I25.10 Active [id number] Problem Vitamin D deficiency E55.9 Active 49339945 Problem Hammer toe of left foot M20.42 Active 428190795 Problem Other hammer toe(s) (acquired), left foot M20.42 Active 70978150 Problem Dependence on nocturnal oxygen therapy Z99.81 Active 92911909961716 Problem Tobacco abuse Z72.0 Active 725883352 Problem Other hammer toe(s) (acquired), right foot M20.41 Active 571889441 Problem Gastro-esophageal reflux disease without esophagitis K21.9 Active 321875491 Problem Emphysema, unspecified J43.9 Active 88647315 Problem Hypertension I10 Active 37741486 Problem Hyperlipemia E78.5 Active 75365487 Problem Anxiety associated with depression F41.8 Active 153396120 Problem Chronic pain G89.29 Active 51845743 Problem Type 2 diabetes mellitus with diabetic neuropathy, unspecified E11.40 Active 61565597 Problem OAB (overactive bladder) N32.81 Active 945574266 Problem Allergic rhinitis J30.9 Active 89730982 Problem Rheumatoid arthritis involving multiple sites with positive rheumatoid factor M05.79 Active 639291905 ALLERGIES No Information ENCOUNTERS Encounter Location Date Diagnosis [facility] [address] [facility] [id number] [address] Oct, [facility] [address] [facility] [id number] [place] [address] Aug, Type 2 diabetes mellitus with diabetic neuropathy, unspecified E11.40 ; Hypertension I10 ; Hyperlipemia E78.5 ; Gastro-esophageal reflux disease without esophagitis K21.9 ; Emphysema, unspecified J43.9 ; Anxiety associated with depression F41.8 ; Vitamin D deficiency E55.9 ; Chronic pain G89.29 ; Tobacco abuse Z72.0 ; Overweight (BMI 25.0-29.9) E66.3 ; Atherosclerotic heart disease of [place] coronary artery without angina pectoris I25.10 ; OAB (overactive bladder) N32.81 and Primary insomnia F51.01 [place] [address] [address] July, [place] [address] [address] July, [place] [address] [address] July, Chronic pain G89.29 [place] [address] [address] [id number] [place] [address] July, [place] [address] [address] July, Onychomycosis B35.1 ; Hammer toe of left foot M20.42 and Type 2 diabetes mellitus with diabetic neuropathy, unspecified E11.40 [place] [address] [address] [id number] [place] [address] July, [place] [address] [id number] [place] [address] July, Chronic pain G89.29 and Neuropathy G62.9 [place] [address] [address] July, [place] [address] [address] [id number] [place] [address] July, [place] [address] [address] Jun, [facility] [address] [place] [address] Jun, Chronic pain G89.29 [facility] [address] [place] [address] Jun, [facility] [address] [place] [address] Jun, [facility] [id number] [place] [address] Jun, Visit for TB skin test Z11.1 [facility] [address] [id number] [place] [address] 16 Jun, 2017 [facility] [address] [id number] [place] [address] Jun, [facility] [id number] [place] [address] Jun, Tobacco abuse Z72.0 and Rheumatoid arthritis involving multiple sites with positive rheumatoid factor M05.79 [facility] [address] [id number] [place] [address] Jun, Anxiety F41.9 ; Acute non-recurrent maxillary sinusitis J01.00 and Chronic pain G89.29 [facility] [address] [address] Jun, [facility] [address] [place] [address] May, Rheumatoid arthritis involving multiple sites with positive rheumatoid factor M05.79 [facility] [id number] [place] [address] May, Chronic pain G89.29 [facility] [address] [place] [address] May, [facility] [address] [id number] [place] [address] May, [place] [address] [address] May, [place] [address] [place] [id number] [place] [address] May, Type 2 diabetes mellitus with diabetic neuropathy, unspecified E11.40 [place] [address] [address] [id number] [place] [address] May, Type 2 diabetes mellitus with diabetic neuropathy, unspecified E11.40 ; Emphysema, unspecified J43.9 ; Hypertension I10 ; Hyperlipemia E78.5 ; Vitamin D deficiency E55.9 ; Right medial knee pain M25.561 ; Controlled substance agreement signed Z79.899 ; Chronic pain G89.29 ; Allergic rhinitis J30.9 ; Anxiety associated with depression F41.8 ; Neuropathy G62.9 and Gastro- esophageal reflux disease without esophagitis K21.9 [place] [address] [id number] [place] [address] Apr, Chronic pain G89.29 [place] [address] [place] [address] Apr, Other hammer toe(s) (acquired), left foot M20.42 ; Other hammer toe(s) (acquired), right foot M20.41 ; Type 2 diabetes mellitus with diabetic neuropathy, unspecified E11.40 and Onychomycosis B35.1 [place] [address] [place] [address] 2017 Gastro-esophageal reflux disease without esophagitis K21.9 [place] [address] [address] Apr, Controlled substance agreement signed Z79.899 [place] [address] [place] [address] Mar, Chronic pain G89.29 [place] [address] [address] [id number] [place] [address] Mar, Emphysema, unspecified J43.9 and Type 2 diabetes mellitus with diabetic neuropathy, unspecified E11.40 [facility] [address] [id number] [place] [address] Mar, Dysuria R30.0 ; Vaginal candidiasis B37.3 and Acute nonintractable headache, unspecified headache type R51 [place] [address] [place] [id number] [place] [address] Feb, Neuropathy G62.9 and Chronic pain G89.29 [place] [address] [address] [id number] [place] [address] Feb, Gastro-esophageal reflux disease without esophagitis K21.9 [place] [address] [place] [id number] [place] [address] Feb, [place] [address] [address] Feb, Rheumatoid arthritis involving multiple sites with positive rheumatoid factor M05.79 and COPD with acute exacerbation J44.1 [place] [address] [address] [id number] [place] [address] Feb, Vaginal odor N89.8 ; Vaginal irritation N89.8 ; Candidal dermatitis B37.2 and Screening breast examination Z12.31 [place] [address] [address] [id number] [place] [address] Feb, [place] [address] [address] [id number] [place] [address] Feb, [place] [address] [id number] [place] [address] Feb, [place] [address] [address] Feb, COPD with exacerbation J44.1 ; Tobacco abuse counseling Z71.6 ; Tobacco abuse Z72.0 ; Rheumatoid arthritis involving multiple sites with positive rheumatoid factor M05.79 and Hyperlipemia E78.5 [place] [address] [id number] [place] [address] Feb, [facility] [id number] [place] [phone] Jan, [facility] [address] [id number] [place] [address] Jan, Chronic pain G89.29 [facility] [id number] [place] [id number] Jan, Dental examination Z01.20 [facility] [id number] [place] [address] Jan, Back pain of lumbar region with sciatica M54.40 [facility] [address] [id number] [place] [address] Jan, Acute bacterial conjunctivitis of both eyes H10.33 [place] [address] [address] [id number] [place] [address] Jan, Chronic pain G89.29 [place] [address] [id number] [place] [address] Dec, Type 2 diabetes mellitus with diabetic neuropathy, unspecified E11.40 ; Hypertension I10 ; Hyperlipemia E78.5 ; Gastro-esophageal reflux disease without esophagitis K21.9 ; Anxiety associated with depression F41.8 ; Allergic rhinitis J30.9 ; Neuropathy G62.9 and Dependence on nocturnal oxygen therapy Z99.81 [place] [address] [place] [address] Dec, [place] [address] [place] [address] [id number] [place] [address] Dec, [place] [address] [place] [address] [id number] [place] [address] Dec, Encounter for immunization Z23 [place] [address] [address] [id number] [place] [address] Dec, Type 2 diabetes mellitus with diabetic neuropathy, unspecified E11.40 and Chronic pain G89.29 [facility] [address] [id number] [place] [address] 11 Nov, 2016 Gastro-esophageal reflux disease without esophagitis K21.9 [facility] [address] [address] 11 Nov, 2016 Peripheral edema R60.9 and Chest pain in adult R07.9 [facility] [address] [address] 07 Nov, 2016 Chronic pain G89.29 [facility] [address] [address] 31 Oct, 2016 [facility] [address] [address] 30 Oct, 2016 [facility] [address] [address] 17 Oct, 2016 Rheumatoid arthritis with rheumatoid factor of right wrist without organ or systems involvement M05.731 [facility] [address] [address] 15 Oct, 2016 [facility] [address] [id number] [place] [address] 14 Oct, 2016 Acute exacerbation of chronic obstructive pulmonary disease (COPD) J44.1 and Canker sore K12.0 [facility] [address] [address] 14 Oct, 2016 [facility] [address] [id number] [place] [address] Oct, [facility] [address] [address] 09 Oct, 2016 Chronic pain G89.29 [facility] [id number] [place] [id number] 08 Oct, 2016 Dental examination Z01.20 [facility] [address] [address] Oct, Dental examination Z01.20 and Periodontitis K05.30 [facility] [address] [place] [phone] Oct, Dental examination Z01.20 [facility] [address] [address] Sep, Abscess L02.91 [facility] [address] [id number] [place] [address] Sep, Dental examination Z01.20 [facility] [address] [place] [address] Sep, [facility] [id number] [place] [phone] Sep, Dental examination Z01.20 and Dental caries K02.9 [place] [address] [address] [id number] [place] [address] Sep, Primary insomnia F51.01 and Anxiety associated with depression F41.8 [place] [address] [place] [id number] [place] [address] Sep, Rheumatoid arthritis with rheumatoid factor of right wrist without organ or systems involvement M05.731 [place] [address] [place] [address] Sep, Chronic pain G89.29 [place] [address] [address] [id number] [place] [address] Sep, Type 2 diabetes mellitus with diabetic neuropathy, unspecified E11.40 ; Emphysema, unspecified J43.9 ; Gastro-esophageal reflux disease without esophagitis K21.9 ; Hypertension I10 ; Hyperlipemia E78.5 ; Anxiety associated with depression F41.8 ; Chronic pain G89.29 ; Vitamin D deficiency E55.9 and Primary insomnia F51.01 [place] [address] [address] Aug, Anxiety associated with depression F41.8 [place] [address] [address] [id number] [place] [address] 13 Aug, 2016 Chronic pain G89.29 and Neuropathy G62.9 [place] [address] [id number] [place] [address] Aug, Type 2 diabetes mellitus with diabetic neuropathy, unspecified E11.40 ; Rheumatoid arthritis involving multiple sites with positive rheumatoid factor M05.79 ; Vitamin D deficiency E55.9 ; Anxiety associated with depression F41.8 and Primary insomnia F51.01 [place] [address] [id number] [place] [address] July, Emphysema, unspecified J43.9 [place] [address] [id number] [place] [address] July, Allergic rhinitis J30.9 [place] [address] [address] July, Allergic rhinitis J30.9 ; Emphysema, unspecified J43.9 and Rheumatoid arthritis with rheumatoid factor of right wrist without organ or systems involvement M05.731 [place] [address] [address] July, Neuropathy G62.9 and Chronic pain G89.29 [place] [address] [id number] [place] [address] July, Rheumatoid arthritis involving multiple sites with positive rheumatoid factor M05.79 [place] [address] [id number] [place] [address] Jun, [place] [address] [id number] [place] [address] Jun, Neuropathy G62.9 and Chronic pain G89.29 [place] [address] [id number] [place] [address] May, Neuropathy G62.9 and Chronic pain G89.29 [place] [address] [address] May, [place] [address] [id number] [place] [address] May, [place] [address] [address] May, Type 2 diabetes mellitus with diabetic [...] system involvement with positive rheumatoid factor M05.732 [place] [address] [id number] [place] [address] Apr, Chronic pain G89.29 [place] [address] [id number] [place] [address] Mar, Gastro-esophageal reflux disease without esophagitis K21.9 [place] [id number] [place] [address] Mar, [place] [address] [id number] [place] [address] Mar, Rheumatoid arthritis with rheumatoid factor of right wrist without organ or systems involvement M05.731 [place] [id number] [place] [address] Mar, Chronic pain G89.29 [place] [address] [id number] [place] [address] Feb, Hyperlipemia E78.5 [place] [address] [id number] [place] [address] Feb, Abnormal breath sounds R06.89 ; COPD with exacerbation J44.1 and Fatigue, unspecified type R53.83 [facility] [address] [place] [address] Feb, Neuropathy G62.9 ; Abnormal lung sounds R09.89 and Bronchitis J40 [facility] [id number] [place] [address] Feb, Bronchitis J40 [facility] [address] [address] Feb, Chronic pain G89.29 [place] [address] [address] Jan, Type 2 diabetes mellitus with diabetic neuropathy, unspecified E11.40 ; Rheumatoid arthritis with rheumatoid factor of right wrist without organ or systems involvement M05.731 and Hyperlipemia E78.5 [place] [address] [address] Jan, Rheumatoid arthritis with rheumatoid factor of right wrist without organ or systems involvement M05.731 [place] [address] [address] Jan, De Quervain's disease (radial styloid tenosynovitis) M65.4 ; Closed nondisplaced fracture of scaphoid of left wrist, unspecified portion of scaphoid, initial encounter S62.002A and Peripheral tear of medial meniscus of left knee, unspecified whether old or current tear, initial encounter S83.222A [place] [id number] [place] [address] Jan, Hypertension I10 ; Type 2 diabetes mellitus with diabetic neuropathy, unspecified E11.40 ; Hyperlipemia E78.5 ; Allergic rhinitis J30.9 ; Neuropathy G62.9 ; Rheumatoid arthritis with rheumatoid factor of right wrist without organ or systems involvement M05.731 ; Acute non-recurrent maxillary sinusitis J01.00 and Chronic pain G89.29 [place] [id number] [place] [address] Dec, [place] [id number] [place] [address] Dec, [place] [address] [address] Dec, Type 2 diabetes mellitus with diabetic neuropathy, unspecified E11.40 ; Emphysema, unspecified J43.9 ; Gastro-esophageal reflux disease without esophagitis K21.9 ; Hypertension I10 ; Hyperlipemia E78.5 ; Rheumatoid arthritis with rheumatoid factor of right wrist without organ or systems involvement M05.731 ; Elevated white blood cell count, unspecified D72.829 ; Acute non- recurrent frontal sinusitis J01.10 and Chronic pain G89.29 [place] [id number] [place] [address] Nov, [place] [id number] [place] [address] Nov, Elevated white blood cell count, unspecified D72.829 ; Encounter for immunization Z23 ; Rheumatoid arthritis with rheumatoid factor of right wrist without organ or systems involvement M05.731 ; Injury of left hand S69.92XA ; Pain in left knee M25.562 and Other chronic pain G89.29 [place] [id number] [place] [address] Nov, [place] [id number] [place] [address] Nov, [place] [id number] [place] [address] Oct, [place] [id number] [place] [address] Oct, Hyperlipemia E78.5 [place] [id number] [place] [address] Oct, [place] [id number] [place] [address] Oct, Type 2 diabetes mellitus with diabetic neuropathy, unspecified E11.40 ; Neuropathy G62.9 ; Hypertension I10 ; Chronic pain G89.29 and Hyperlipemia E78.5 [place] [id number] [place] [address] Oct, Emphysema, unspecified J43.9 and Rheumatoid arthritis of left wrist without organ or system involvement with positive rheumatoid factor M05.732 [place] [id number] [place] [address] Sep, Chronic pain syndrome G89.4 [place] [address] [address] Sep, [place] [id number] [place] [address] Sep, [place] [id number] [place] [address] Sep, Closed nondisplaced fracture of scaphoid of left wrist, unspecified portion of scaphoid, initial encounter S62.002A [place] [id number] [place] [address] Sep, Type 2 diabetes mellitus with diabetic neuropathy, unspecified E11.40 ; Hypertension I10 ; Hyperlipemia E78.5 and Acute non-recurrent maxillary sinusitis J01.00 [place] [id number] [place] [address] Sep, [place] [id number] [place] [address] Sep, [facility] [id number] [place] [address] Sep, [place] [id number] [place] [address] Sep, [facility] [id number] [place] [address] Aug, Epigastric pain R10.13 and Right upper quadrant pain R10.11 [place] [id number] [address] 30 Aug, 2015 Closed nondisplaced fracture of scaphoid of left wrist, unspecified portion of scaphoid, initial encounter S62.002A [place] [address] [address] Aug, [place] [address] [place] [address] Aug, [facility] [address] [place] [address] Aug, Shortness of breath R06.02 ; Epigastric pain R10.13 and Injury of left lower arm, initial encounter S59.912A [place] [address] [place] [address] 07 Aug, 2015 Coronary artery disease involving [place] heart with angina pectoris, unspecified vessel or lesion type I25.119 ; Pulmonary emphysema, unspecified emphysema type J43.9 and Snoring R06.83 [place] [address] [place] [address] Aug, [place] [address] [place] [address] 03 Aug, 2015 Emphysema, unspecified J43.9 ; Atherosclerotic heart disease of [place] coronary artery without angina pectoris I25.10 and Hypertension I10 [place] [address] [place] [address] July, [place] [address] [place] [address] July, Closed nondisplaced fracture of scaphoid of left wrist, unspecified portion of scaphoid, initial encounter S62.002A [place] [address] [address] July, [place] [id number] [place] [address] July, Type 2 diabetes mellitus with diabetic neuropathy, unspecified E11.40 ; Emphysema, unspecified J43.9 ; Atherosclerotic heart disease of [place] coronary artery without angina [...] agents L24.89 and Hospital discharge follow-up Z09 [place] [address] [address] July, [place] [address] [address] July, Type 2 diabetes mellitus with diabetic neuropathy, unspecified E11.40 [place] [address] [address] July, Type 2 diabetes mellitus with diabetic neuropathy, unspecified E11.40 and Rheumatoid arthritis of left wrist without organ or system involvement with positive rheumatoid factor M05.732 [place] [address] [address] July, [place] [id number] [place] [id number] July, [place] [id number] [place] [address] Jun, [place] [address] [id number] [place] [address] Jun, [place] [address] [address] Jun, 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 [place] [id number] [place] [address] Jun, [place] [address] [address] Jun, 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 [place] [address] [id number] [place] [phone] Jun, [place] [id number] [place] [address] Jun, [place] [address] [id number] [place] [address] Jun, Encounter for PPD test Z11.1 ; Rheumatoid arthritis with rheumatoid factor of right wrist without organ or systems involvement M05.731 and Rheumatoid arthritis of left wrist without organ or system involvement with positive rheumatoid factor M05.732 [place] [id number] [place] [address] Jun, Type 2 diabetes mellitus with diabetic neuropathy, unspecified E11.40 [place] [address] [id number] [place] [address] May, Type 2 diabetes mellitus with diabetic neuropathy, unspecified E11.40 ; Emphysema, unspecified J43.9 ; Rheumatoid arthritis with rheumatoid factor of right wrist without organ or systems involvement M05.731 ; Rheumatoid arthritis of left wrist without organ or system involvement with positive rheumatoid factor M05.732 and Chronic pain G89.29 [place] [address] [id number] [place] [address] May, [place] [address] [id number] [place] [address] May, Swelling of hand joint M25.449 ; Ankle swelling M25.473 and Joint pain M25.50 [place] [address] [id number] [place] [address] May, Emphysema, unspecified J43.9 [place] [address] [id number] [place] [address] May, Gastroenteritis K52.9 and Hypertension I10 [place] [id number] [place] [address] Apr, [place] [id number] [place] [phone] Apr, [place] [address] [id number] [place] [address] Apr, [place] [id number] [place] [address] Apr, Type 2 diabetes mellitus with diabetic neuropathy, unspecified E11.40 ; Emphysema, unspecified J43.9 ; Atherosclerotic heart disease of [place] coronary artery without angina pectoris I25.10 ; Migraine without aura, not intractable, with status migrainosus G43.001 ; Gastro-esophageal reflux disease without esophagitis K21.9 ; CAD (coronary artery disease) I25.10 ; Hypertension I10 ; Hyperlipemia E78.5 ; Allergic rhinitis J30.9 ; Neuropathy G62.9 ; Anxiety associated with depression F41.8 and Injury of left hand S69.92XA [address] [address] Apr, [address] [address] Apr, [place] [address] [id number] [place] [address] Apr, Type 2 diabetes mellitus with diabetic neuropathy, unspecified E11.40 ; Emphysema, unspecified J43.9 ; Essential (primary) hypertension I10 ; Atherosclerotic heart disease of [place] coronary artery without angina pectoris I25.10 ; Gastro-esophageal reflux disease without esophagitis K21.9 ; CAD (coronary artery disease) I25.10 ; Hyperlipemia E78.5 ; Hypertension I10 ; History of solitary pulmonary nodule Z87.898 ; Allergic rhinitis J30.9 ; Chronic pain G89.29 and Depression with anxiety F41.8 [place] [id number] [place] [phone] Mar, [address] [address] Mar, Allergic rhinitis J30.9 ; URI (upper respiratory infection) J06.9 and Other viral agents as the cause of diseases classified elsewhere B97.89 [facility] [address] [address] Feb, Acute nasopharyngitis [common cold] J00 and Acute diarrhea R19.7 [place] [address] [address] Feb, Depression F32.9 [place] [address] [address] Jan, Otitis media, right H66.91 [place] [address] [address] Jan, [place] [address] [address] Jan, Type 2 diabetes mellitus with diabetic neuropathy, unspecified E11.40 [place] [address] [address] Jan, [place] [address] [address] Jan, Hyperlipemia E78.5 [place] [address] [address] Jan, Type 2 diabetes mellitus with diabetic neuropathy, unspecified E11.40 ; Emphysema, unspecified J43.9 ; CAD (coronary artery disease) I25.10 and Hyperlipemia E78.5 [place] [address] [address] Dec, Allergic rhinitis J30.9 and Fungal infection B49 [place] [address] [address] Dec, [place] [address] [address] Dec, [place] [address] [id number] [place] [address] Dec, Chest pain R07.9 ; CAD (coronary artery disease) I25.10 ; Hypertension I10 and Hyperlipemia E78.[address] [address] Dec, Pain in thoracic spine M54.6 ; Gastro-esophageal reflux disease without esophagitis K21.9 ; Emphysema, unspecified J43.9 and Migraine without aura, not intractable, with status migrainosus G43.001 [place] [address] [address] Dec, [place] [address] [address] Nov, Influenza vaccine administered V04.[address] [address] Nov, [place] [address] [address] Sep, [address] [address] Sep, [address] [address] Sep, CAD (coronary artery disease) 414.00 and Diabetes type 2, uncontrolled [address] [address] Sep, CAD (coronary artery disease) 414.00 ; Diabetes type 2, uncontrolled 250.02 and Migraine 346.90 IMMUNIZATIONS No Known Immunizations SOCIAL HISTORY Never Assessed REASON FOR VISIT Medication refill request PLAN OF CARE VITAL SIGNS MEDICATIONS Medication Instructions Dosage Frequency Start Date End Date Duration Status Mucinex 600 MG Orally every 12 hrs 1 tablet as needed 12h 05 Mar, 2015 July, 30 days Active RESULTS No Results [...] unspecified Medical History Atherosclerotic heart disease of [place] coronary artery without angina [...]
--- OUTSIDE RECORDS SUMMARY | 2018-08-23 17:36 | XMS REPORT ---
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 Role Phone DELEONCLAU Moran Unavailable PROBLEMS Type Condition ICD9-CM Code [id number] Code Onset Dates Condition Status SNOMED Code Problem Dependence on nocturnal oxygen therapy Z99.81 Active 63304295650820 Problem Other hammer toe(s) (acquired), left foot M20.42 Active 75044819 Problem Neuropathy G62.9 Active 803374355 Problem Anxiety F41.9 Active 88639537 Problem Hyperlipemia E78.5 Active 50295212 Problem COPD with acute exacerbation J44.1 Active 339530589 Problem Hypertension I10 Active 17130673 Problem Vitamin D deficiency E55.9 Active 12629828 Problem Tobacco abuse Z72.0 Active 689460505 Problem Other hammer toe(s) (acquired), right foot M20.41 Active 537616973 Problem Back pain of lumbar region with sciatica M54.40 Active 553947387 Problem COPD with exacerbation J44.1 Active 039390618399360 Problem Emphysema, unspecified J43.9 Active 00550974 Problem Allergic rhinitis J30.9 Active 71333024 Problem Type 2 diabetes mellitus with diabetic neuropathy, unspecified E11.40 Active 68270625 Problem Gastro-esophageal reflux disease without esophagitis K21.9 Active 604802031 Problem OAB (overactive bladder) N32.81 Active 275924860 Problem Rheumatoid arthritis involving multiple sites with positive rheumatoid factor M05.79 Active 792149004 Problem Anxiety associated with depression F41.8 Active 991442897 Problem Primary insomnia F51.01 Active 0327295 Problem Chronic pain G89.29 Active 86151252 Problem Periodontitis K05.30 Active 56374430 ALLERGIES No Information ENCOUNTERS Encounter Location Date Diagnosis [facility], [place] [address] [facility] [id number] [address] Aug, [facility], [place] [address], [place] [address] July, [facility], [place] [id number] [place] [address] July, [facility] [place] [id number] [place] [address] Jun, [facility] [place] [address] [id number] [place] [address] Jun, Chronic pain G89.29 [facility], [place] [id number] [place] [address] Jun, [facility] [place] [id number] [place] [address] Jun, [facility] [place] [id number] [place] [address] Jun, Visit for TB skin test Z11.1 [facility], [place] [address], [place] [address] Jun, [facility] [place] [id number] [place] [address] Jun, [facility] [place] [id number] [place] [address] Jun, Tobacco abuse Z72.0 and Rheumatoid arthritis involving multiple sites with positive rheumatoid factor M05.79 [facility], [place] [address], [place] [address] Jun, Anxiety F41.9 ; Acute non-recurrent maxillary sinusitis J01.00 and Chronic pain G89.29 [facility], [place] [address], [place] [address] Jun, [facility] [place] [address] [place] [address] May, Rheumatoid arthritis involving multiple sites with positive rheumatoid factor M05.79 [facility] [place] [id number] [place] [address] May, Chronic pain G89.29 [place] [id number] [place] [address] May, [place] [id number] [place] [address] May, [place] [id number] [place] [address] May, [place] [id number] [place] [address] May, Type 2 diabetes mellitus with diabetic neuropathy, unspecified E11.40 [place] [id number] [place] [address] 02 May, 2017 Type 2 diabetes mellitus [...] Gastro- esophageal reflux disease without esophagitis K21.9 [place] [id number] [place] [address] 22 Apr, 2017 Chronic pain G89.29 [place] [id number] [place] [address] 16 Apr, 2017 Other hammer toe(s) (acquired), left foot M20.42 ; Other hammer toe(s) (acquired), right foot M20.41 ; Type 2 diabetes mellitus with diabetic neuropathy, unspecified E11.40 and Onychomycosis B35.1 [place] [id number] [place] [address] 2017 Gastro-esophageal reflux disease without esophagitis K21.9 [place] [id number] [place] [address] Apr, Controlled substance agreement signed Z79.899 [facility] [place] [address] [address] Mar, Chronic pain G89.29 [facility] [place] [address] [address] Mar, Emphysema, unspecified J43.9 and Type 2 diabetes mellitus with diabetic neuropathy, unspecified E11.40 [facility] [address] [address] Mar, Dysuria R30.0 ; Vaginal candidiasis B37.3 and Acute nonintractable headache, unspecified headache type R51 [place] [address] [address] Feb, Neuropathy G62.9 and Chronic pain G89.29 [place] [address] [address] Feb, Gastro-esophageal reflux disease without esophagitis K21.9 [place] [address] [address] Feb, [place] [address] [address] Feb, Rheumatoid arthritis involving multiple sites with positive rheumatoid factor M05.79 and COPD with acute exacerbation J44.1 [place] [address] [address] Feb, Vaginal odor N89.8 ; Vaginal irritation N89.8 ; Candidal dermatitis B37.2 and Screening breast examination Z12.31 [place] [address] [address] Feb, [place] [address] [address] Feb, [place] [address] [address] Feb, [place] [id number] [place] [address] Feb, COPD with exacerbation J44.1 ; Tobacco abuse counseling Z71.6 ; Tobacco abuse Z72.0 ; Rheumatoid arthritis involving multiple sites with positive rheumatoid factor M05.79 and Hyperlipemia E78.5 [place] [address] [address] Feb, [facility] [address] [id number] Jan, [place] [address] [address] Jan, Chronic pain G89.29 [place] [address] [id number] Jan, Dental examination Z01.20 [facility] [address] [place] [address] Jan, Back pain of lumbar region with sciatica M54.40 [facility] [address] [address] 15 Jan, 2017 Acute bacterial conjunctivitis of both eyes H10.33 [place] [id number] [place] [address] 02 Jan, 2017 Chronic pain G89.[address] [address] Dec, Type 2 diabetes mellitus with diabetic neuropathy, unspecified E11.40 ; Hypertension I10 ; Hyperlipemia E78.5 ; Gastro-esophageal reflux disease without esophagitis K21.9 ; Anxiety associated with depression F41.8 ; Allergic rhinitis J30.9 ; Neuropathy G62.9 and Dependence on nocturnal oxygen therapy Z99.81 [place] [id number] [place] [address] Dec, [address] [address] Dec, [facility] [place] [id number] [place] [address] 09 Dec, 2016 Encounter for immunization Z23 [facility] [place] [id number] [place] [address] 05 Dec, 2016 Type 2 diabetes mellitus with diabetic neuropathy, unspecified E11.40 and Chronic pain G89.29 [place] [address] [address] 11 Nov, 2016 Gastro-esophageal reflux disease without esophagitis K21.9 [place] [id number] [place] [address] 11 Nov, 2016 Peripheral edema R60.9 and Chest pain in adult R07.9 [place] [id number] [place] [address] 07 Nov, 2016 Chronic pain G89.29 [place] [id number] [place] [address] 31 Oct, 2016 [place] [id number] [place] [address] Oct, [place] [id number] [place] [address] 17 Oct, 2016 Rheumatoid arthritis with rheumatoid factor of right wrist without organ or systems involvement M05.731 [place] [id number] [place] [address] Oct, [facility] [id number] [place] [address] Oct, Acute exacerbation of chronic obstructive pulmonary disease (COPD) J44.1 and Canker sore K12.0 [facility] [place] [id number] [place] [address] Oct, [facility] [place] [id number] [place] [address] Oct, [facility] [place] [address] [place] [id number] [place] [address] Oct, Chronic pain G89.29 [facility] [address] [id number] Oct, Dental examination Z01.20 [facility] [place] [address] [address] Oct, Dental examination Z01.20 and Periodontitis K05.30 [facility] [address] [place] [id number] [place] [id number] Oct, Dental examination Z01.20 [facility] [address] [address] Sep, Abscess L02.91 [place] [address] [address] Sep, Dental examination Z01.20 [place] [address] [address] Sep, [facility] [id number] [place] [id number] Sep, Dental examination Z01.20 and Dental caries K02.9 [place] [address] [address] Sep, Primary insomnia F51.01 and Anxiety associated with depression F41.8 [place] [address] [address] Sep, Rheumatoid arthritis with rheumatoid factor of right wrist without organ or systems involvement M05.731 [place] [address] [address] Sep, Chronic pain G89.29 [place] [address] [address] Sep, Type 2 diabetes mellitus with diabetic neuropathy, unspecified E11.40 ; Emphysema, unspecified J43.9 ; Gastro-esophageal reflux disease without esophagitis K21.9 ; Hypertension I10 ; Hyperlipemia E78.5 ; Anxiety associated with depression F41.8 ; Chronic pain G89.29 ; Vitamin D deficiency E55.9 and Primary insomnia F51.01 [place] [id number] [place] [address] 16 Aug, 2016 Anxiety associated with depression F41.8 [place] [id number] [place] [address] 13 Aug, 2016 Chronic pain G89.29 and Neuropathy G62.9 [place] [id number] [place] [address] Aug, Type 2 diabetes mellitus with diabetic neuropathy, unspecified E11.40 ; Rheumatoid arthritis involving multiple sites with positive rheumatoid factor M05.79 ; Vitamin D deficiency E55.9 ; Anxiety associated with depression F41.8 and Primary insomnia F51.01 [place] [id number] [place] [address] July, Emphysema, unspecified J43.9 [place] [id number] [place] [address] July, Allergic rhinitis J30.9 [place] [id number] [place] [address] July, Allergic rhinitis J30.9 ; Emphysema, unspecified J43.9 and Rheumatoid arthritis with rheumatoid factor of right wrist without organ or systems involvement M05.731 [place] [id number] [place] [address] July, Neuropathy G62.9 and Chronic pain G89.29 [place] [id number] [place] [address] July, Rheumatoid arthritis involving multiple sites with positive rheumatoid factor M05.79 [place] [id number] [place] [address] Jun, [place] [id number] [place] [address] Jun, Neuropathy G62.9 and Chronic pain G89.29 [place] [id number] [place] [address] May, Neuropathy G62.9 and Chronic pain G89.29 [place] [id number] [place] [address] May, [place] [id number] [place] [address] May, [place] [id number] [place] [address] May, Type 2 diabetes mellitus with diabetic [...] with positive rheumatoid factor M05.732 [place] [id number] [place] [address] Apr, Chronic pain G89.29 [place] [id number] [place] [address] Mar, Gastro-esophageal reflux disease without esophagitis K21.9 [place] [id number] [place] [address] Mar, [place] [id number] [place] [address] Mar, Rheumatoid arthritis with rheumatoid factor of right wrist without organ or systems involvement M05.731 [place] [id number] [place] [address] Mar, Chronic pain G89.29 [place] [id number] [place] [address] Feb, Hyperlipemia E78.5 [place] [address] [address] Feb, Abnormal breath sounds R06.89 ; COPD with exacerbation J44.1 and Fatigue, unspecified type R53.83 [place] [address] [address] Feb, Neuropathy G62.9 ; Abnormal lung sounds R09.89 and Bronchitis J40 [facility] [address] [address] Feb, Bronchitis J40 [place] [address] [address] Feb, Chronic pain G89.29 [place] [address] [address] Jan, Type 2 diabetes mellitus with diabetic neuropathy, unspecified E11.40 ; Rheumatoid arthritis with rheumatoid factor of right wrist without organ or systems involvement M05.731 and Hyperlipemia E78.5 [place] [address] [address] Jan, Rheumatoid arthritis with rheumatoid factor of right wrist without organ or systems involvement M05.731 [place] [address] [address] Jan, De Quervain's disease (radial styloid tenosynovitis) M65.4 ; Closed nondisplaced fracture of scaphoid of left wrist, unspecified portion of scaphoid, initial encounter S62.002A and Peripheral tear of medial meniscus of left knee, unspecified whether old or current tear, initial encounter S83.222A [place] [id number] [place] [address] Jan, Hypertension I10 ; Type 2 diabetes mellitus with diabetic neuropathy, unspecified E11.40 ; Hyperlipemia E78.5 ; Allergic rhinitis J30.9 ; Neuropathy G62.9 ; Rheumatoid arthritis with rheumatoid factor of right wrist without organ or systems involvement M05.731 ; Acute non-recurrent maxillary sinusitis J01.00 and Chronic pain G89.29 [place] [id number] [place] [address] Dec, [place] [address] [address] Dec, [place] [address] [address] Dec, Type 2 diabetes mellitus with diabetic neuropathy, unspecified E11.40 ; Emphysema, unspecified J43.9 ; Gastro-esophageal reflux disease without esophagitis K21.9 ; Hypertension I10 ; Hyperlipemia E78.5 ; Rheumatoid arthritis with rheumatoid factor of right wrist without organ or systems involvement M05.731 ; Elevated white blood cell count, unspecified D72.829 ; Acute non- recurrent frontal sinusitis J01.10 and Chronic pain G89.29 [place] [id number] [place] [address] Nov, [place] [address] [address] Nov, Elevated white blood cell count, unspecified D72.829 ; Encounter for immunization Z23 ; Rheumatoid arthritis with rheumatoid factor of right wrist without organ or systems involvement M05.731 ; Injury of left hand S69.92XA ; Pain in left knee M25.562 and Other chronic pain G89.29 [place] [id number] [place] [address] Nov, [place] [address] [address] Nov, [place] [id number] [place] [address] Oct, [place] [address] [address] Oct, Hyperlipemia E78.5 [place] [address] [id number] [place] [address] Oct, [place] [id number] [place] [address] Oct, Type 2 diabetes mellitus with diabetic neuropathy, unspecified E11.40 ; Neuropathy G62.9 ; Hypertension I10 ; Chronic pain G89.29 and Hyperlipemia E78.5 [place] [id number] [place] [address] Oct, Emphysema, unspecified J43.9 and Rheumatoid arthritis of left wrist without organ or system involvement with positive rheumatoid factor M05.732 [place] [id number] [place] [address] Sep, Chronic pain syndrome G89.4 [place] [address] [address] Sep, [place] [id number] [place] [address] Sep, [place] [id number] [place] [address] Sep, Closed nondisplaced fracture of scaphoid of left wrist, unspecified portion of scaphoid, initial encounter S62.002A [place] [id number] [place] [address] Sep, Type 2 diabetes mellitus with diabetic neuropathy, unspecified E11.40 ; Hypertension I10 ; Hyperlipemia E78.5 and Acute non-recurrent maxillary sinusitis J01.00 [place] [id number] [place] [address] Sep, [place] [id number] [place] [address] Sep, [place] [id number] [place] [address] Sep, [facility] [place] [id number] [place] [address] Sep, [place] [address] [id number] [place] [address] Aug, Epigastric pain R10.13 and Right upper quadrant pain R10.11 [place] [id number] [place] [address] Aug, Closed nondisplaced fracture of scaphoid of left wrist, unspecified portion of scaphoid, initial encounter S62.002A [place] [id number] [place] [address] Aug, [place] [address] [id number] [place] [address] Aug, [facility] [id number] [place] [address] Aug, Shortness of breath R06.02 ; Epigastric pain R10.13 and Injury of left lower arm, initial encounter S59.912A [place] [address] [id number] [place] [address] Aug, Coronary artery disease involving [place] heart with angina pectoris, unspecified vessel or lesion type I25.119 ; Pulmonary emphysema, unspecified emphysema type J43.9 and Snoring R06.83 [place] [id number] [place] [address] Aug, [facility] [place] [address] [id number] [place] [address] Aug, Emphysema, unspecified J43.9 ; Atherosclerotic heart disease of [place] coronary artery without angina pectoris I25.10 and Hypertension I10 [place] [address] [id number] [place] [address] July, [place] [id number] [place] [address] July, Closed nondisplaced fracture of scaphoid of left wrist, unspecified portion of scaphoid, initial encounter S62.002A [place] [address] [id number] [place] [address] July, [place] [id number] [place] [address] July, Type 2 diabetes mellitus with diabetic neuropathy, unspecified E11.40 ; Emphysema, unspecified J43.9 ; Atherosclerotic heart disease of [place] coronary artery without angina pectoris I25.10 ; [...] agents L24.89 and Hospital discharge follow-up Z09 [place] [id number] [place] [address] July, [place] [address] [id number] [place] [address] July, Type 2 diabetes mellitus with diabetic neuropathy, unspecified E11.40 [place] [address] [id number] [place] [address] July, Type 2 diabetes mellitus with diabetic neuropathy, unspecified E11.40 and Rheumatoid arthritis of left wrist without organ or system involvement with positive rheumatoid factor M05.732 [place] [id number] [place] [address] July, [place] [id number] [place] [address] July, [place] [address] [id number] [place] [address] Jun, [place] [address] [id number] [place] [address] Jun, [place] [address] [place] [address] Jun, 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 [place] [address] [place] [address] Jun, [facility] [place] [address] [place] [address] Jun, 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 [place] [id number] [place] [address] Jun, [place] [address] [place] [address] Jun, [place] [id number] [place] [address] Jun, Encounter for PPD test Z11.1 ; Rheumatoid arthritis with rheumatoid factor of right wrist without organ or systems involvement M05.731 and Rheumatoid arthritis of left wrist without organ or system involvement with positive rheumatoid factor M05.732 [place] [address] [place] [address] Jun, Type 2 diabetes mellitus with diabetic neuropathy, unspecified E11.40 [place] [address] [place] [address] May, Type 2 diabetes mellitus with diabetic neuropathy, unspecified E11.40 ; Emphysema, unspecified J43.9 ; Rheumatoid arthritis with rheumatoid factor of right wrist without organ or systems involvement M05.731 ; Rheumatoid arthritis of left wrist without organ or system involvement with positive rheumatoid factor M05.732 and Chronic pain G89.29 [place] [address] [place] [address] May, [place] [address] [id number] [place] [address] May, Swelling of hand joint M25.449 ; Ankle swelling M25.473 and Joint pain M25.50 [place] [address] [id number] [place] [address] May, Emphysema, unspecified J43.9 [place] [address] [id number] [place] [address] May, Gastroenteritis K52.9 and Hypertension I10 [place] [address] [address] [id number] [place] [id number] Apr, [place] [id number] [place] [id number] Apr, [place] [address] [address] [id number] [place] [id number] Apr, [place] [address] [id number] Apr, Type 2 diabetes mellitus with diabetic neuropathy, unspecified E11.40 ; Emphysema, unspecified J43.9 ; Atherosclerotic heart disease of [place] coronary artery without angina pectoris I25.10 ; Migraine without aura, not intractable, with status migrainosus G43.001 ; Gastro-esophageal reflux disease without esophagitis K21.9 ; CAD (coronary artery disease) I25.10 ; Hypertension I10 ; Hyperlipemia E78.5 ; Allergic rhinitis J30.9 ; Neuropathy G62.9 ; Anxiety associated with depression F41.8 and Injury of left hand S69.92XA [place] [id number] [place] [address] Apr, [place] [address] [place] [id number] [place] [address] Apr, [place] [id number] [place] [address] Apr, Type 2 diabetes mellitus with diabetic neuropathy, unspecified E11.40 ; Emphysema, unspecified J43.9 ; Essential (primary) hypertension I10 ; Atherosclerotic heart disease of [place] coronary artery without angina pectoris I25.10 ; Gastro-esophageal reflux disease without esophagitis K21.9 ; CAD (coronary artery disease) I25.10 ; Hyperlipemia E78.5 ; Hypertension I10 ; History of solitary pulmonary nodule Z87.898 ; Allergic rhinitis J30.9 ; Chronic pain G89.29 and Depression with anxiety F41.8 [place] [address] [address] Mar, [place] [address] [address] Mar, Allergic rhinitis J30.9 ; URI (upper respiratory infection) J06.9 and Other viral agents as the cause of diseases classified elsewhere B97.89 [facility] [address] [address] Feb, Acute nasopharyngitis [common cold] J00 and Acute diarrhea R19.7 [place] [address] [address] Feb, Depression F32.[address] [address] Jan, Otitis media, right H66.91 [place] [address] [address] Jan, [place] [address] [address] Jan, Type 2 diabetes mellitus with diabetic neuropathy, unspecified E11.40 [place] [address] [address] Jan, [place] [address] [address] Jan, Hyperlipemia E78.5 [place] [address] [address] Jan, Type 2 diabetes mellitus with diabetic neuropathy, unspecified E11.40 ; Emphysema, unspecified J43.9 ; CAD (coronary artery disease) I25.10 and Hyperlipemia E78.5 [place] [address] [address] Dec, Allergic rhinitis J30.9 and Fungal infection B49 [place] [address] [place] [id number] [place] [address] Dec, [place] [address] [address] Dec, [place] [address] [address] Dec, Chest pain R07.9 ; CAD (coronary artery disease) I25.10 ; Hypertension I10 and Hyperlipemia E78.5 [place] [address] [address] Dec, Pain in thoracic spine M54.6 ; Gastro-esophageal reflux disease without esophagitis K21.9 ; Emphysema, unspecified J43.9 and Migraine without aura, not intractable, with status migrainosus G43.001 [place] [address] [address] Dec, [place] [address] [address] Nov, Influenza vaccine administered V04.[address] [address] Nov, [place] [address] [address] Sep, [place] [address] [address] Sep, [place] [address] [address] Sep, CAD (coronary artery disease) 414.00 and Diabetes type 2, uncontrolled 250.02 [place] [address] [place] [id number] [place] [address] Sep, CAD (coronary artery disease) 414.00 ; Diabetes type 2, uncontrolled 250.02 and Migraine 346.90 IMMUNIZATIONS Vaccine Route Administration Date Status FLUARIX QUAD (3 AND UP) 2016 IM Intramuscular Dec 26, 2016 Administered PPSV23 (PNEUMOVAX) IM Intramuscular Dec 26, 2016 Administered SOCIAL HISTORY Never Assessed REASON FOR VISIT Flu shot and Pneumo-AHarrymanRN PLAN OF CARE VITAL SIGNS MEDICATIONS Unknown Medications RESULTS No Results PROCEDURES Procedure Date Ordered Result Body Site FLUARIX QUAD (3 & UP)--2014Dec 26, 2016 PPSV23 (PNEUMOVAX) Dec 26, 2016 SINGLE IMMUNIZATION ADMIN Dec 26, 2016 ADMN PNEUMCOC VAC NO FEE SCHED DAY Dec 26, 2016 IMMUNIZATION ADMIN, EACH ADD (please include units) Dec 26, 2016 INSTRUCTIONS MEDICATIONS ADMINISTERED No Known Medications MEDICAL [...] unspecified Medical History Atherosclerotic heart disease of [place] coronary artery without angina pectoris Medical History [...]
--- OUTSIDE RECORDS SUMMARY | 2018-08-23 17:37 | XMS REPORT ---
Author Author CLAU DELEON Organization [facility] [place] Address [address] [place] [address] Care Team Providers Care President And Chief Operating Officer Name Role Phone DELEONROB MoranELE Unavailable PROBLEMS Type Condition ICD9-CM Code IJO72-HF Code Onset Dates Condition Status SNOMED Code Problem Neuropathy G62.9 Active 927081715 Problem Other hammer toe(s) (acquired), right foot M20.41 Active 723761988 Problem Other hammer toe(s) (acquired), left foot M20.42 Active 02869977 Problem Anxiety F41.9 Active 14913145 Problem Type 2 diabetes mellitus with diabetic neuropathy, unspecified E11.40 Active 15605491 Problem Hammer toe of left foot M20.42 Active 958931327 Problem Hyperlipemia E78.5 Active 15452461 Problem Hypertension I10 Active 23103195 Problem COPD with exacerbation J44.1 Active 029665750184800 Problem Tobacco abuse Z72.0 Active 366941989 Problem COPD with acute exacerbation J44.1 Active 341551664 Problem Back pain of lumbar region with sciatica M54.40 Active 643953896 Problem Allergic rhinitis J30.9 Active 39731080 Problem Anxiety associated with depression F41.8 Active 822180722 Problem Gastro-esophageal reflux disease without esophagitis K21.9 Active 169639251 Problem Emphysema, unspecified J43.9 Active 51080930 Problem Rheumatoid arthritis involving multiple sites with positive rheumatoid factor M05.79 Active 253349901 Problem Primary insomnia F51.01 Active 6961663 Problem Chronic pain G89.29 Active 90401667 Problem Periodontitis K05.30 Active 29099706 Problem Vitamin D deficiency E55.9 Active 17745063 Problem OAB (overactive bladder) N32.81 Active 194314053 Problem Dependence on nocturnal oxygen therapy Z99.81 Active [id number] ALLERGIES No Information ENCOUNTERS Encounter Location Date Diagnosis [facility] [place] [address] [facility] [id number] [address] Oct, [facility] [place] [address], [place] [address] Aug, [facility] [place] [id number] [place] [address] July, [facility] [place] [id number] [place] [address] July, [facility] [place] [id number] [place] [address] July, Chronic pain G89.29 [facility] [place] [id number] [place] [address] July, [facility] [place] [id number] [place] [address] July, Onychomycosis B35.1 ; Hammer toe of left foot M20.42 and Type 2 diabetes mellitus with diabetic neuropathy, unspecified E11.40 [facility] [place] [address], [place] [address] July, [facility] [place] [id number] [place] [address] July, Chronic pain G89.29 and Neuropathy G62.9 [facility] [place] [address] [address] July, [facility] [place] [address], [place] [address] July, [facility] [place] [address], [place] [address] Jun, [facility] [place] [address] [id number] [address] Jun, Chronic pain G89.29 [facility] [place] [address], [place] [address] Jun, [facility] [place] [address] [place] [address] Jun, [facility] [place] [id number] [place] [address] Jun, Visit for TB skin test Z11.1 [facility] [place] [address], [place] [address] 16 Jun, 2017 [facility] [place] [id number] [place] [address] Jun, [facility] [place] [id number] [place] [address] Jun, Tobacco abuse Z72.0 and Rheumatoid arthritis involving multiple sites with positive rheumatoid factor M05.79 [facility] [place] [id number] [place] [address] Jun, Anxiety F41.9 ; Acute non-recurrent maxillary sinusitis J01.00 and Chronic pain G89.29 [facility] [place] [id number] [place] [address] Jun, [facility] [place] [id number] [place] [address] May, Rheumatoid arthritis involving multiple sites with positive rheumatoid factor M05.79 [facility] [place] [id number] [place] [address] May, Chronic pain G89.29 [facility] [place] [address], [place] [address] May, [facility] [place] [address], [place] [address] May, [facility] [place] [id number] [place] [address] May, [facility] [place] [address], [place] [address] May, Type 2 diabetes mellitus with diabetic neuropathy, unspecified E11.40 [facility] [place] [id number] [place] [address] May, Type 2 diabetes mellitus with diabetic neuropathy, unspecified E11.40 ; Emphysema, unspecified J43.9 ; Hypertension I10 ; Hyperlipemia E78.5 ; Vitamin D deficiency E55.9 ; Right medial knee pain M25.561 ; Controlled substance agreement signed Z79.899 ; Chronic pain G89.29 ; Allergic rhinitis J30.9 ; Anxiety associated with depression F41.8 ; Neuropathy G62.9 and Gastro- esophageal reflux disease without esophagitis K21.9 [place] [id number] [place] [address] Apr, Chronic pain G89.29 [place] [id number] [place] [address] 16 Apr, 2017 Other hammer toe(s) (acquired), left foot M20.42 ; Other hammer toe(s) (acquired), right foot M20.41 ; Type 2 diabetes mellitus with diabetic neuropathy, unspecified E11.40 and Onychomycosis B35.1 [place] [id number] [place] [address] 2017 Gastro-esophageal reflux disease without esophagitis K21.9 [place] [id number] [place] [address] Apr, Controlled substance agreement signed Z79.899 [place] [id number] [place] [address] Mar, Chronic pain G89.29 [place] [id number] [place] [address] Mar, Emphysema, unspecified J43.9 and Type 2 diabetes mellitus with diabetic neuropathy, unspecified E11.40 [facility] [id number] [place] [address] Mar, Dysuria R30.0 ; Vaginal candidiasis B37.3 and Acute nonintractable headache, unspecified headache type R51 [place] [id number] [place] [address] Feb, Neuropathy G62.9 and Chronic pain G89.29 [facility] [place] [id number] [place] [address] Feb, Gastro-esophageal reflux disease without esophagitis K21.9 [facility] [place] [id number] [place] [address] Feb, [place] [id number] [place] [address] Feb, Rheumatoid arthritis involving multiple sites with positive rheumatoid factor M05.79 and COPD with acute exacerbation J44.1 [place] [id number] [place] [address] Feb, Vaginal odor N89.8 ; Vaginal irritation N89.8 ; Candidal dermatitis B37.2 and Screening breast examination Z12.31 [place] [id number] [place] [address] Feb, [facility] [place] [id number] [place] [address] Feb, [place] [id number] [place] [address] Feb, [facility] [place] [id number] [place] [address] Feb, COPD with exacerbation J44.1 ; Tobacco abuse counseling Z71.6 ; Tobacco abuse Z72.0 ; Rheumatoid arthritis involving multiple sites with positive rheumatoid factor M05.79 and Hyperlipemia E78.5 [facility] [place] [id number] [place] [address] Feb, [facility] [id number] [place] [id number] Jan, [facility] [place] [id number] [place] [address] Jan, Chronic pain G89.29 [facility] [id number] [place] [id number] 27 Jan, 2017 Dental examination Z01.20 [facility] [id number] [place] [address] 19 Jan, 2017 Back pain of lumbar region with sciatica M54.40 [facility] [id number] [place] [address] 15 Jan, 2017 Acute bacterial conjunctivitis of both eyes H10.33 [place] [id number] [place] [address] 02 Jan, 2017 Chronic pain G89.29 [place] [id number] [place] [address] 31 Dec, 2016 Type 2 diabetes mellitus with diabetic neuropathy, unspecified E11.40 ; Hypertension I10 ; Hyperlipemia E78.5 ; Gastro-esophageal reflux disease without esophagitis K21.9 ; Anxiety associated with depression F41.8 ; Allergic rhinitis J30.9 ; Neuropathy G62.9 and Dependence on nocturnal oxygen therapy Z99.81 [place] [id number] [place] [address] Dec, [place] [id number] [place] [address] Dec, [place] [id number] [place] [address] 09 Dec, 2016 Encounter for immunization Z23 [place] [id number] [place] [address] 05 Dec, 2016 Type 2 diabetes mellitus with diabetic neuropathy, unspecified E11.40 and Chronic pain G89.29 [place] [id number] [place] [address] 11 Nov, 2016 Gastro-esophageal reflux disease without esophagitis K21.9 [place] [id number] [place] [address] Nov, Peripheral edema R60.9 and Chest pain in adult R07.9 [facility] [place] [id number] [place] [address] 07 Nov, 2016 Chronic pain G89.29 [facility] [place] [id number] [place] [phone] 31 Oct, 2016 [facility] [place] [id number] [place] [address] Oct, [facility] [place] [id number] [place] [address] 17 Oct, 2016 Rheumatoid arthritis with rheumatoid factor of right wrist without organ or systems involvement M05.731 [facility] [place] [address] [address] 15 Oct, [address] [facility] [id number] [place] [phone] Oct, Acute exacerbation of chronic obstructive pulmonary disease (COPD) J44.1 and Canker sore K12.0 [facility] [place] [id number] [place] [address] Oct, [facility] [place] [id number] [place] [address] Oct, [facility] [place] [id number] [place] [address] Oct, Chronic pain G89.29 [facility] [id number] [place] [phone] Oct, Dental examination Z01.20 [facility] [place] [id number] [place] [address] Oct, Dental examination Z01.20 and Periodontitis K05.30 [facility] [id number] [place] [phone] Oct, Dental examination Z01.[address] [facility] [id number] [place] [address] Sep, Abscess L02.91 [place] [address], [place] [address] Sep, Dental examination Z01.20 [place] [id number] [place] [address] Sep, [facility] [address] [id number] Sep, Dental examination Z01.20 and Dental caries K02.9 [place] [id number] [place] [address] Sep, Primary insomnia F51.01 and Anxiety associated with depression F41.8 [place] [id number] [place] [address] Sep, Rheumatoid arthritis with rheumatoid factor of right wrist without organ or systems involvement M05.731 [place] [id number] [place] [address] Sep, Chronic pain G89.29 [place] [id number] [place] [address] Sep, Type 2 diabetes mellitus with diabetic neuropathy, unspecified E11.40 ; Emphysema, unspecified J43.9 ; Gastro-esophageal reflux disease without esophagitis K21.9 ; Hypertension I10 ; Hyperlipemia E78.5 ; Anxiety associated with depression F41.8 ; Chronic pain G89.29 ; Vitamin D deficiency E55.9 and Primary insomnia F51.01 [place] [id number] [place] [address] 16 Aug, 2016 Anxiety associated with depression F41.8 [place] [id number] [place] [address] Aug, Chronic pain G89.29 and Neuropathy G62.9 [place] [address] [place] [address] Aug, Type 2 diabetes mellitus with diabetic neuropathy, unspecified E11.40 ; Rheumatoid arthritis involving multiple sites with positive rheumatoid factor M05.79 ; Vitamin D deficiency E55.9 ; Anxiety associated with depression F41.8 and Primary insomnia F51.01 [place] [address] [address] July, Emphysema, unspecified J43.9 [place] [address] [address] July, Allergic rhinitis J30.9 [place] [address] [address] July, Allergic rhinitis J30.9 ; Emphysema, unspecified J43.9 and Rheumatoid arthritis with rheumatoid factor of right wrist without organ or systems involvement M05.731 [place] [address] [address] July, Neuropathy G62.9 and Chronic pain G89.29 [place] [address] [address] July, Rheumatoid arthritis involving multiple sites with positive rheumatoid factor M05.79 [place] [address] [address] Jun, [place] [address] [address] Jun, Neuropathy G62.9 and Chronic pain G89.29 [place] [address] [address] May, Neuropathy G62.9 and Chronic pain G89.29 [place] [id number] [place] [address] May, [place] [address] [address] May, [place] [id number] [place] [address] May, Type 2 diabetes mellitus with diabetic [...] system involvement with positive rheumatoid factor M05.732 [place] [address] [address] 14 Apr, 2016 Chronic pain G89.29 [place] [address] [address] Mar, Gastro-esophageal reflux disease without esophagitis K21.[address] [address] Mar, [address] [address] Mar, Rheumatoid arthritis with rheumatoid factor of right wrist without organ or systems involvement M05.731 [place] [address] [address] Mar, Chronic pain G89.29 [place] [address] [address] Feb, Hyperlipemia E78.5 [place] [address] [address] Feb, Abnormal breath sounds R06.89 ; COPD with exacerbation J44.1 and Fatigue, unspecified type R53.[address] [address] Feb, Neuropathy G62.9 ; Abnormal lung sounds R09.89 and Bronchitis J40 [facility] [address] [address] Feb, Bronchitis J40 [place] [address], [place] [address] Feb, Chronic pain G89.29 [place] [id number] [place] [address] Jan, Type 2 diabetes mellitus with diabetic neuropathy, unspecified E11.40 ; Rheumatoid arthritis with rheumatoid factor of right wrist without organ or systems involvement M05.731 and Hyperlipemia E78.5 [place] [id number] [place] [address] Jan, Rheumatoid arthritis with rheumatoid factor of right wrist without organ or systems involvement M05.731 [place] [id number] [place] [address] Jan, De Quervain's disease (radial styloid tenosynovitis) M65.4 ; Closed nondisplaced fracture of scaphoid of left wrist, unspecified portion of scaphoid, initial encounter S62.002A and Peripheral tear of medial meniscus of left knee, unspecified whether old or current tear, initial encounter S83.222A [place] [address] [place] [address] Jan, Hypertension I10 ; Type 2 diabetes mellitus with diabetic neuropathy, unspecified E11.40 ; Hyperlipemia E78.5 ; Allergic rhinitis J30.9 ; Neuropathy G62.9 ; Rheumatoid arthritis with rheumatoid factor of right wrist without organ or systems involvement M05.731 ; Acute non-recurrent maxillary sinusitis J01.00 and Chronic pain G89.29 [place] [address], [place] [address] Dec, [place] [id number] [place] [address] Dec, [place] [address] [place] [address] Dec, Type 2 diabetes mellitus with diabetic neuropathy, unspecified E11.40 ; Emphysema, unspecified J43.9 ; Gastro-esophageal reflux disease without esophagitis K21.9 ; Hypertension I10 ; Hyperlipemia E78.5 ; Rheumatoid arthritis with rheumatoid factor of right wrist without organ or systems involvement M05.731 ; Elevated white blood cell count, unspecified D72.829 ; Acute non- recurrent frontal sinusitis J01.10 and Chronic pain G89.29 [place] [id number] [place] [address] Nov, [place] [address] [address] Nov, Elevated white blood cell count, unspecified D72.829 ; Encounter for immunization Z23 ; Rheumatoid arthritis with rheumatoid factor of right wrist without organ or systems involvement M05.731 ; Injury of left hand S69.92XA ; Pain in left knee M25.562 and Other chronic pain G89.29 [place] [address] [address] Nov, [place] [address] [address] Nov, [place] [address] [address] Oct, [place] [address] [address] Oct, Hyperlipemia E78.5 [place] [address] [address] Oct, [place] [address] [address] Oct, Type 2 diabetes mellitus with diabetic neuropathy, unspecified E11.40 ; Neuropathy G62.9 ; Hypertension I10 ; Chronic pain G89.29 and Hyperlipemia E78.5 [place] [address] [address] Oct, Emphysema, unspecified J43.9 and Rheumatoid arthritis of left wrist without organ or system involvement with positive rheumatoid factor M05.732 [place] [id number] [place] [address] Sep, Chronic pain syndrome G89.4 [facility] [place] [id number] [place] [address] Sep, [facility] [place] [id number] [place] [address] Sep, [facility] [place] [id number] [place] [address] Sep, Closed nondisplaced fracture of scaphoid of left wrist, unspecified portion of scaphoid, initial encounter S62.002A [place] [id number] [place] [address] Sep, Type 2 diabetes mellitus with diabetic neuropathy, unspecified E11.40 ; Hypertension I10 ; Hyperlipemia E78.5 and Acute non-recurrent maxillary sinusitis J01.00 [place] [id number] [place] [address] Sep, [facility] [place] [id number] [place] [address] Sep, [facility] [place] [id number] [place] [address] Sep, [facility] [place] [id number] [place] [address] Sep, [facility] [place] [id number] [place] [address] Aug, Epigastric pain R10.13 and Right upper quadrant pain R10.11 [facility] [place] [id number] [place] [address] Aug, Closed nondisplaced fracture of scaphoid of left wrist, unspecified portion of scaphoid, initial encounter S62.002A [facility] [place] [id number] [place] [address] Aug, [place] [id number] [place] [address] Aug, [facility] [id number] [place] [address] Aug, Shortness of breath R06.02 ; Epigastric pain R10.13 and Injury of left lower arm, initial encounter S59.912A [place] [address] [place] [id number] [place] [phone] Aug, Coronary artery disease involving [place] heart with angina pectoris, unspecified vessel or lesion type I25.119 ; Pulmonary emphysema, unspecified emphysema type J43.9 and Snoring R06.83 [place] [address] [place] [id number] [place] [id number] Aug, [place] [address] [place] [id number] [place] [id number] Aug, Emphysema, unspecified J43.9 ; Atherosclerotic heart disease of [place] coronary artery without angina pectoris I25.10 and Hypertension I10 [facility] [place] [address] [place] [id number] [place] [phone] July, [place] [address] [place] [id number] [place] [phone] July, Closed nondisplaced fracture of scaphoid of left wrist, unspecified portion of scaphoid, initial encounter S62.002A [place] [address] [place] [id number] [place] [phone] July, [place] [address] [place] [id number] [place] [phone] July, Type 2 diabetes mellitus with diabetic neuropathy, unspecified E11.40 ; Emphysema, unspecified J43.9 ; Atherosclerotic heart disease of [place] coronary artery without angina pectoris I25.10 ; [...] agents L24.89 and Hospital discharge follow-up Z09 [facility], [place] [address] [place] [address] [id number] [place] [phone] July, [facility], [place] [id number] [place] [phone] July, Type 2 diabetes mellitus with diabetic neuropathy, unspecified E11.40 [facility], [place] [id number] [place] [phone] July, Type 2 diabetes mellitus with diabetic neuropathy, unspecified E11.40 and Rheumatoid arthritis of left wrist without organ or system involvement with positive rheumatoid factor M05.732 [facility], [place] [id number] [place] [phone] July, [facility], [place] [id number] [place] [phone] July, [facility], [place] [id number] [place] [phone] Jun, [facility], [place] [id number] [place] [phone] Jun, [facility], [place] [id number] [place] [phone] Jun, 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 [facility], [place] [id number] [place] [phone] Jun, [facility], [place] [id number] [place] [phone] Jun, 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 [facility], [place] [id number] [place] [phone] Jun, [facility], [place] [id number] [place] [phone] Jun, [facility], [place] [address] [address] Jun, Encounter for PPD test Z11.1 ; Rheumatoid arthritis with rheumatoid factor of right wrist without organ or systems involvement M05.731 and Rheumatoid arthritis of left wrist without organ or system involvement with positive rheumatoid factor M05.732 [place] [address] [address] Jun, Type 2 diabetes mellitus with diabetic neuropathy, unspecified E11.40 [place] [address] [address] May, Type 2 diabetes mellitus with diabetic neuropathy, unspecified E11.40 ; Emphysema, unspecified J43.9 ; Rheumatoid arthritis with rheumatoid factor of right wrist without organ or systems involvement M05.731 ; Rheumatoid arthritis of left wrist without organ or system involvement with positive rheumatoid factor M05.732 and Chronic pain G89.29 [place] [address] [address] May, [place] [address] [address] May, Swelling of hand joint M25.449 ; Ankle swelling M25.473 and Joint pain M25.50 [place] [address] [address] May, Emphysema, unspecified J43.9 [place] [address] [address] May, Gastroenteritis K52.9 and Hypertension I10 [place] [address] [address] Apr, [place] [address] [address] Apr, [place] [address] [address] Apr, [place] [address] [address] Apr, Type 2 diabetes mellitus with diabetic neuropathy, unspecified E11.40 ; Emphysema, unspecified J43.9 ; Atherosclerotic heart disease of [place] coronary artery without angina pectoris I25.10 ; Migraine without aura, not intractable, with status migrainosus G43.001 ; Gastro-esophageal reflux disease without esophagitis K21.9 ; CAD (coronary artery disease) I25.10 ; Hypertension I10 ; Hyperlipemia E78.5 ; Allergic rhinitis J30.9 ; Neuropathy G62.9 ; Anxiety associated with depression F41.8 and Injury of left hand S69.92XA [address] [address] Apr, [address] [address] Apr, [address] [address] Apr, Type 2 diabetes mellitus with diabetic neuropathy, unspecified E11.40 ; Emphysema, unspecified J43.9 ; Essential (primary) hypertension I10 ; Atherosclerotic heart disease of [place] coronary artery without angina pectoris I25.10 ; Gastro-esophageal reflux disease without esophagitis K21.9 ; CAD (coronary artery disease) I25.10 ; Hyperlipemia E78.5 ; Hypertension I10 ; History of solitary pulmonary nodule Z87.898 ; Allergic rhinitis J30.9 ; Chronic pain G89.29 and Depression with anxiety F41.8 [place] [id number] [place] [phone] Mar, [address] [address] Mar, Allergic rhinitis J30.9 ; URI (upper respiratory infection) J06.9 and Other viral agents as the cause of diseases classified elsewhere B97.89 [facility] [id number] [place] [phone] Feb, Acute nasopharyngitis [common cold] J00 and Acute diarrhea R19.[id number] [place] [id number] Feb, Depression F32.9 [place] [address] [address] Jan, Otitis media, right H66.91 [place] [address] [address] Jan, [place] [address] [address] Jan, Type 2 diabetes mellitus with diabetic neuropathy, unspecified E11.40 [place] [address] [address] Jan, [place] [address] [address] Jan, Hyperlipemia E78.5 [place] [address] [address] Jan, Type 2 diabetes mellitus with diabetic neuropathy, unspecified E11.40 ; Emphysema, unspecified J43.9 ; CAD (coronary artery disease) I25.10 and Hyperlipemia E78.5 [place] [id number] [place] [phone] Dec, Allergic rhinitis J30.9 and Fungal infection B49 [place] [id number] [place] [phone] Dec, [place] [id number] [place] [phone] Dec, [place] [address] [address] Dec, Chest pain R07.9 ; CAD (coronary artery disease) I25.10 ; Hypertension I10 and Hyperlipemia E78.5 [place] [id number] [place] [phone] 08 Dec, 2014 Pain in thoracic spine M54.6 ; Gastro-esophageal reflux disease without esophagitis K21.9 ; Emphysema, unspecified J43.9 and Migraine without aura, not intractable, with status migrainosus G43.001 [place] [id number] [place] [phone] Dec, [place] [id number] [place] [phone] Nov, Influenza vaccine administered V04.81 [place] [id number] [place] [phone] Nov, [place] [address] [address] Sep, [place] [id number] [place] [phone] Sep, [place] [id number] [place] [phone] Sep, CAD (coronary artery disease) 414.00 and Diabetes type 2, uncontrolled 250.02 [place] [id number] [place] [phone] Sep, CAD (coronary artery disease) 414.00 ; Diabetes type 2, uncontrolled 250.02 and Migraine 346.90 IMMUNIZATIONS No Known Immunizations SOCIAL HISTORY Never Assessed REASON FOR VISIT Refill request PLAN OF CARE VITAL SIGNS MEDICATIONS Medication Instructions Dosage Frequency Start Date End Date Duration Status Omeprazole 10 MG Orally Once a day - Appt needed in 2 capsules Active Diclofenac Sodium 1.5 % Transdermal Four times a day 40 drops to affected area 6h May, 62 days Active RESULTS No Results PROCEDURES No Known procedures INSTRUCTIONS MEDICATIONS ADMINISTERED No Known Medications MEDICAL (GENERAL) HISTORY Type Description Date Medical History COPD Medical History Type 2 Diabetes Medical History HTN Medical History Cardiac stents July 2010 post MO-stent to LAD Medical History Rheumatoid Arthritis Medical History 04/2016---Echo- 60%//mild hypertrophy at the base of the septum, mild mitral regurg/ mild tricuspid regurg. PAP about 10-15 mmHg Medical History 04/2016------Normal Lexiscan Medical History Elevated white blood cell count, unspecified Medical History Atherosclerotic heart disease of [place] coronary artery without angina pectoris Medical History [...]
--- OUTSIDE RECORDS SUMMARY | 2018-08-23 17:38 | XMS REPORT ---
Author Author SANJIV CHICAS [facility] Address [address] [place] [address] Care Team Providers Care Leather Belt Maker Name Role Phone SANJIV CHICAS Unavailable PROBLEMS Type Condition ICD9-CM Code [id number] Code Onset Dates Condition Status SNOMED Code Problem Vitamin D deficiency E55.9 Active 52298151 Problem Hypertension I10 Active 67625169 Problem Other hammer toe(s) (acquired), left foot M20.42 Active 94279873 Problem Hyperlipemia E78.5 Active 28410229 Problem Other hammer toe(s) (acquired), right foot M20.41 Active 443188887 Problem Gastro-esophageal reflux disease without esophagitis K21.9 Active 719154054 Problem Tobacco abuse Z72.0 Active 280884504 Problem Atherosclerotic heart disease of [place] coronary artery without angina pectoris I25.10 Active 395620688566751 Problem Hammer toe of left foot M20.42 Active 724142108 Problem Fibromyalgia M79.7 Active 549048941 Problem Carpal tunnel syndrome of left wrist G56.02 Active 36744869 Problem Allergic rhinitis J30.9 Active 33296891 Problem Type 2 diabetes mellitus with diabetic neuropathy, unspecified E11.40 Active 19053512 Problem Emphysema, unspecified J43.9 Active 34433831 Problem Elevated white blood cell count, unspecified D72.829 Active 619644408 Problem Other chronic pain G89.29 Active 81163093 Problem Acute rheumatoid arthritis M06.9 Active 38302494 Problem Intractable migraine without status migrainosus, unspecified migraine type G43.919 Active 960392702 Problem OAB (overactive bladder) N32.81 Active 100691085 Problem Rheumatoid arthritis involving multiple sites with positive rheumatoid factor M05.79 Active 824543531 Problem Anxiety associated with depression F41.8 Active 138996327 Problem Chronic pain G89.29 Active 09906541 Problem Dependence on nocturnal oxygen therapy Z99.81 Active 94084553841124 Problem Neuropathy G62.9 Active 629844015 Problem Primary insomnia F51.01 Active 8516455 Problem Periodontitis K05.30 Active 45964722 ALLERGIES No Information ENCOUNTERS Encounter Location Date Diagnosis [facility] [id number] [place] [address] Mar, [facility] [address] [address] Feb, [place] [address] [address] Feb, Chronic pain G89.29 ; Fibromyalgia M79.7 and Carpal tunnel syndrome of left wrist G56.02 [facility] [facility] [address] [address] Feb, [facility] [facility] [address] [address] Feb, Type 2 diabetes mellitus with diabetic neuropathy, unspecified E11.40 and Neuropathy G62.9 [place] [facility] [address] [address] Feb, Chronic pain G89.29 [facility] [address] [address] Jan, Pain of toe of right foot M79.674 and Acute maxillary sinusitis, recurrence not specified J01.00 [place] [address] [address] Jan, Emphysema, unspecified J43.9 and Neuropathy G62.9 [facility] [facility] [id number] [place] [address] Jan, Chronic pain G89.29 [place] [facility] [address] [address] Dec, [facility] [address] [address] Dec, Rheumatoid arthritis involving multiple sites with positive rheumatoid factor M05.79 [facility] [facility] [address] [place] [address] Dec, Rheumatoid arthritis involving multiple sites with positive rheumatoid factor M05.79 [facility] [id number] [place] [address] Dec, Rheumatoid arthritis involving multiple sites with positive rheumatoid factor M05.79 and Need for hepatitis C screening test Z11.59 [facility] [id number] [place] [address] Dec, Acute rheumatoid arthritis M06.9 [facility] [facility] [id number] [place] [address] Dec, [facility] [facility] [id number] [place] [address] Dec, Type 2 diabetes mellitus with diabetic neuropathy, unspecified E11.40 and Neuropathy G62.9 [facility] [id number] [place] [address] Dec, Chronic pain G89.29 [facility] [id number] [place] [address] Nov, Type 2 diabetes mellitus with diabetic neuropathy, unspecified E11.40 ; Neuropathy G62.9 ; Hypertension I10 ; Dependence on nocturnal oxygen therapy Z99.81 ; Emphysema, unspecified J43.9 and Encounter for immunization Z23 [facility] [id number] [place] [address] Nov, Chronic pain G89.29 [facility] [id number] [place] [address] Nov, Chronic pain G89.29 [facility] [id number] [place] [address] Oct, Dysuria R30.0 ; Intractable migraine without status migrainosus, unspecified migraine type G43.919 and Back pain at L4-L5 level M54.5 [facility] [id number] [place] [address] Oct, Orthostatic hypotension I95.1 [facility] [id number] [place] [address] Oct, Localized swelling of both lower legs R22.43 ; Onychomycosis B35.1 and Type 2 diabetes mellitus with diabetic neuropathy, unspecified E11.40 [facility] [id number] [place] [address] Oct, [facility] [id number] [place] [address] Oct, Elevated white blood cell count, unspecified D72.829 [facility] [id number] [place] [address] Oct, Elevated white blood cell count, unspecified D72.829 [facility] [id number] [place] [address] Oct, Chronic pain G89.29 [facility] [id number] [place] [address] Oct, [facility] [id number] [place] [address] Oct, [facility] [id number] [place] [address] Oct, Orthostatic hypotension I95.1 ; Dizziness R42 and Neuropathy G62.9 [facility] [id number] [place] [address] Oct, Dizziness R42 ; Low back pain M54.5 ; Other chronic pain G89.29 ; Nausea R11.0 and Orthostatic hypotension I95.1 [facility] [id number] [place] [address] Sep, Rheumatoid arthritis involving multiple sites with positive rheumatoid factor M05.79 and Tobacco abuse Z72.0 [facility] [address] [place] [address] Sep, Chronic pain G89.29 [facility] [address] [address] Aug, Type 2 diabetes mellitus with diabetic neuropathy, unspecified E11.40 ; Hypertension I10 ; Hyperlipemia E78.5 ; Gastro-esophageal reflux disease without esophagitis K21.9 ; Emphysema, unspecified J43.9 ; Anxiety associated with depression F41.8 ; Vitamin D deficiency E55.9 ; Chronic pain G89.29 ; Tobacco abuse Z72.0 ; Overweight (BMI 25.0-29.9) E66.3 ; Atherosclerotic heart disease of [place] coronary artery without angina pectoris I25.10 ; OAB (overactive bladder) N32.81 and Primary insomnia F51.01 [facility] [facility] [id number] [place] [address] July, [facility] [facility] [address] [address] July, [place] [address] [address] July, Chronic pain G89.29 [facility] [facility] [address] [address] July, [facility] [id number] [place] [address] July, Onychomycosis B35.1 ; Hammer toe of left foot M20.42 and Type 2 diabetes mellitus with diabetic neuropathy, unspecified E11.40 [facility] [facility] [id number] [place] [address] July, [facility] [facility] [address] [address] July, Chronic pain G89.29 and Neuropathy G62.9 [facility] [id number] [place] [address] July, [place] [address] [address] July, [facility] [id number] [place] [address] Jun, [facility] [address] [address] Jun, Chronic pain G89.29 [facility] [id number] [place] [address] Jun, [facility] [id number] [place] [address] Jun, [facility] [id number] [place] [address] Jun, Visit for TB skin test Z11.1 [facility] [id number] [place] [address] Jun, [facility] [address] [place] [address] Jun, [facility] [address] [place] [address] Jun, Tobacco abuse Z72.0 and Rheumatoid arthritis involving multiple sites with positive rheumatoid factor M05.79 [facility] [address] [address] Jun, Anxiety F41.9 ; Acute non-recurrent maxillary sinusitis J01.00 and Chronic pain G89.29 [facility] [address] [address] Jun, [facility] [id number] [place] [address] May, Rheumatoid arthritis involving multiple sites with positive rheumatoid factor M05.79 [facility] [address] [address] May, Chronic pain G89.29 [facility] [address] [address] 14 May, 2017 [facility] [id number] [place] [address] May, [facility] [facility] [address] [place] [address] May, [facility] [facility] [address] [place] [address] May, Type 2 diabetes mellitus with diabetic neuropathy, unspecified E11.40 [facility] [id number] [place] [address] May, Type 2 diabetes mellitus with diabetic neuropathy, unspecified E11.40 ; Emphysema, unspecified J43.9 ; Hypertension I10 ; Hyperlipemia E78.5 ; Vitamin D deficiency E55.9 ; Right medial knee pain M25.561 ; Controlled substance agreement signed Z79.899 ; Chronic pain G89.29 ; Allergic rhinitis J30.9 ; Anxiety associated with depression F41.8 ; Neuropathy G62.9 and Gastro- esophageal reflux disease without esophagitis K21.9 [facility] [facility] [id number] [place] [address] 22 Apr, 2017 Chronic pain G89.29 [facility] [facility] [id number] [place] [address] 16 Apr, 2017 Other hammer toe(s) (acquired), left foot M20.42 ; Other hammer toe(s) (acquired), right foot M20.41 ; Type 2 diabetes mellitus with diabetic neuropathy, unspecified E11.40 and Onychomycosis B35.1 [facility] [facility] [address] [place] [address] 2017 Gastro-esophageal reflux disease without esophagitis K21.9 [facility] [facility] [address] [place] [address] 02 Apr, 2017 Controlled substance agreement signed Z79.899 [facility] [id number] [place] [address] Mar, Chronic pain G89.29 [facility] [id number] [place] [address] Mar, Emphysema, unspecified J43.9 and Type 2 diabetes mellitus with diabetic neuropathy, unspecified E11.40 [facility] [id number] [place] [address] Mar, Dysuria R30.0 ; Vaginal candidiasis B37.3 and Acute nonintractable headache, unspecified headache type R51 [facility] [id number] [place] [address] Feb, Neuropathy G62.9 and Chronic pain G89.29 [facility] [address] [place] [address] Feb, Gastro-esophageal reflux disease without esophagitis K21.9 [facility] [address] [place] [address] Feb, [facility] [id number] [place] [address] Feb, Rheumatoid arthritis involving multiple sites with positive rheumatoid factor M05.79 and COPD with acute exacerbation J44.1 [facility] [address] [place] [address] Feb, Vaginal odor N89.8 ; Vaginal irritation N89.8 ; Candidal dermatitis B37.2 and Screening breast examination Z12.31 [facility] [id number] [place] [address] Feb, [facility] [facility] [id number] [place] [address] Feb, [facility] [facility] [id number] [place] [address] Feb, [facility] [address] [place] [address] Feb, COPD with exacerbation J44.1 ; Tobacco abuse counseling Z71.6 ; Tobacco abuse Z72.0 ; Rheumatoid arthritis involving multiple sites with positive rheumatoid factor M05.79 and Hyperlipemia E78.5 [facility] [address] [address] Feb, [facility] [address] [id number] Jan, [place] [address] [address] Jan, Chronic pain G89.29 [facility] [address] [id number] Jan, Dental examination Z01.20 [facility] [address] [address] Jan, Back pain of lumbar region with sciatica M54.40 [facility] [address] [place] [address] Jan, Acute bacterial conjunctivitis of both eyes H10.[address] [address] Jan, Chronic pain G89.29 [place] [address] [address] Dec, Type 2 diabetes mellitus with diabetic neuropathy, unspecified E11.40 ; Hypertension I10 ; Hyperlipemia E78.5 ; Gastro-esophageal reflux disease without esophagitis K21.9 ; Anxiety associated with depression F41.8 ; Allergic rhinitis J30.9 ; Neuropathy G62.9 and Dependence on nocturnal oxygen therapy Z99.81 [place] [address] [address] Dec, [place] [address] [address] Dec, [address] [address] Dec, Encounter for immunization Z23 [facility] [id number] [place] [address] 05 Dec, 2016 Type 2 diabetes mellitus with diabetic neuropathy, unspecified E11.40 and Chronic pain G89.29 [facility] [id number] [place] [address] 11 Nov, 2016 Gastro-esophageal reflux disease without esophagitis K21.9 [facility] [address] [address] 11 Nov, 2016 Peripheral edema R60.9 and Chest pain in adult R07.9 [place] [address] [address] 07 Nov, 2016 Chronic pain G89.29 [facility] [id number] [place] [address] 31 Oct, 2016 [place] [address] [address] Oct, [facility] [id number] [place] [address] 17 Oct, 2016 Rheumatoid arthritis with rheumatoid factor of right wrist without organ or systems involvement M05.731 [facility] [id number] [place] [address] 15 Oct, 2016 [facility] [id number] [place] [address] Oct, Acute exacerbation of chronic obstructive pulmonary disease (COPD) J44.1 and Canker sore K12.0 [facility] [id number] [place] [address] Oct, [facility] [id number] [place] [address] Oct, [facility] [id number] [place] [address] Oct, Chronic pain G89.29 [facility] [id number] [place] [id number] Oct, Dental examination Z01.20 [facility] [id number] [place] [address] Oct, Dental examination Z01.20 and Periodontitis K05.30 [facility] [id number] [place] [id number] Oct, Dental examination Z01.20 [facility] [id number] [place] [address] Sep, Abscess L02.91 [facility] [address] [address] Sep, Dental examination Z01.20 [facility] [id number] [place] [address] Sep, [facility] [id number] [place] [id number] Sep, Dental examination Z01.20 and Dental caries K02.9 [facility] [id number] [place] [address] Sep, Primary insomnia F51.01 and Anxiety associated with depression F41.8 [facility] [address] [place] [address] Sep, Rheumatoid arthritis with rheumatoid factor of right wrist without organ or systems involvement M05.731 [facility] [address] [place] [address] Sep, Chronic pain G89.29 [facility] [address] [place] [address] Sep, Type 2 diabetes mellitus with diabetic neuropathy, unspecified E11.40 ; Emphysema, unspecified J43.9 ; Gastro-esophageal reflux disease without esophagitis K21.9 ; Hypertension I10 ; Hyperlipemia E78.5 ; Anxiety associated with depression F41.8 ; Chronic pain G89.29 ; Vitamin D deficiency E55.9 and Primary insomnia F51.01 [facility] [facility] [address] [place] [address] 16 Aug, 2016 Anxiety associated with depression F41.8 [facility] [id number] [place] [address] 13 Aug, 2016 Chronic pain G89.29 and Neuropathy G62.9 [place] [address] [address] Aug, Type 2 diabetes mellitus with diabetic neuropathy, unspecified E11.40 ; Rheumatoid arthritis involving multiple sites with positive rheumatoid factor M05.79 ; Vitamin D deficiency E55.9 ; Anxiety associated with depression F41.8 and Primary insomnia F51.01 [facility] [facility] [address] [place] [address] July, Emphysema, unspecified J43.9 [facility] [facility] [id number] [place] [address] July, Allergic rhinitis J30.9 [facility] [facility] [address] [place] [address] July, Allergic rhinitis J30.9 ; Emphysema, unspecified J43.9 and Rheumatoid arthritis with rheumatoid factor of right wrist without organ or systems involvement M05.731 [facility] [facility] [address] [place] [address] July, Neuropathy G62.9 and Chronic pain G89.29 [facility] [facility] [address] [place] [address] July, Rheumatoid arthritis involving multiple sites with positive rheumatoid factor M05.79 [facility] [address] [place] [address] Jun, [facility] [id number] [place] [address] Jun, Neuropathy G62.9 and Chronic pain G89.29 [facility] [address] [place] [address] May, Neuropathy G62.9 and Chronic pain G89.29 [facility] [facility] [id number] [place] [address] May, [facility] [facility] [address] [place] [address] May, [facility] [facility] [address] [address] May, Type 2 diabetes mellitus with diabetic [...] system involvement with positive rheumatoid factor M05.732 [facility] [address] [place] [address] Apr, Chronic pain G89.29 [facility] [address] [place] [address] Mar, Gastro-esophageal reflux disease without esophagitis K21.9 [facility] [address] [place] [address] Mar, [facility] [address] [place] [address] Mar, Rheumatoid arthritis with rheumatoid factor of right wrist without organ or systems involvement M05.731 [facility] [address] [place] [address] Mar, Chronic pain G89.29 [facility] [address] [place] [address] Feb, Hyperlipemia E78.5 [facility] [address] [place] [address] Feb, Abnormal breath sounds R06.89 ; COPD with exacerbation J44.1 and Fatigue, unspecified type R53.83 [facility] [facility] [address] [place] [address] Feb, Neuropathy G62.9 ; Abnormal lung sounds R09.89 and Bronchitis J40 [facility] [address] [address] Feb, Bronchitis J40 [place] [facility] [address] [address] 16 Feb, 2016 Chronic pain G89.29 [facility] [facility] [address] [address] Jan, Type 2 diabetes mellitus with diabetic neuropathy, unspecified E11.40 ; Rheumatoid arthritis with rheumatoid factor of right wrist without organ or systems involvement M05.731 and Hyperlipemia E78.5 [facility] [address] [place] [address] Jan, Rheumatoid arthritis with rheumatoid factor of right wrist without organ or systems involvement M05.731 [facility] [address] [place] [address] Jan, De Quervain's disease (radial styloid tenosynovitis) M65.4 ; Closed nondisplaced fracture of scaphoid of left wrist, unspecified portion of scaphoid, initial encounter S62.002A and Peripheral tear of medial meniscus of left knee, unspecified whether old or current tear, initial encounter S83.222A [facility] [facility] [address] [address] Jan, Hypertension I10 ; Type 2 diabetes mellitus with diabetic neuropathy, unspecified E11.40 ; Hyperlipemia E78.5 ; Allergic rhinitis J30.9 ; Neuropathy G62.9 ; Rheumatoid arthritis with rheumatoid factor of right wrist without organ or systems involvement M05.731 ; Acute non-recurrent maxillary sinusitis J01.00 and Chronic pain G89.29 [facility] [facility] [id number] [place] [address] Dec, [facility] [facility] [id number] [place] [address] Dec, [facility] [facility] [id number] [place] [id number] Dec, Type 2 diabetes mellitus with diabetic neuropathy, unspecified E11.40 ; Emphysema, unspecified J43.9 ; Gastro-esophageal reflux disease without esophagitis K21.9 ; Hypertension I10 ; Hyperlipemia E78.5 ; Rheumatoid arthritis with rheumatoid factor of right wrist without organ or systems involvement M05.731 ; Elevated white blood cell count, unspecified D72.829 ; Acute non- recurrent frontal sinusitis J01.10 and Chronic pain G89.29 [place] [id number] [place] [phone] Nov, [place] [id number] [place] [id number] Nov, Elevated white blood cell count, unspecified D72.829 ; Encounter for immunization Z23 ; Rheumatoid arthritis with rheumatoid factor of right wrist without organ or systems involvement M05.731 ; Injury of left hand S69.92XA ; Pain in left knee M25.562 and Other chronic pain G89.29 [place] [address] [id number] [place] [address] Nov, [facility] [place] [id number] [place] [address] Nov, [facility] [place] [id number] [place] [address] Oct, [facility] [place] [id number] [place] [address] Oct, Hyperlipemia E78.5 [facility] [place] [id number] [place] [address] Oct, [place] [address] [place] [address] Oct, Type 2 diabetes mellitus with diabetic neuropathy, unspecified E11.40 ; Neuropathy G62.9 ; Hypertension I10 ; Chronic pain G89.29 and Hyperlipemia E78.5 [facility] [place] [id number] [place] [address] Oct, Emphysema, unspecified J43.9 and Rheumatoid arthritis of left wrist without organ or system involvement with positive rheumatoid factor M05.732 [facility] [place] [id number] [place] [address] Sep, Chronic pain syndrome G89.4 [facility] [place] [id number] [place] [address] Sep, [facility] [place] [id number] [place] [address] Sep, [facility] [place] [id number] [place] [address] Sep, Closed nondisplaced fracture of scaphoid of left wrist, unspecified portion of scaphoid, initial encounter S62.002A [facility] [place] [id number] [place] [address] Sep, Type 2 diabetes mellitus with diabetic neuropathy, unspecified E11.40 ; Hypertension I10 ; Hyperlipemia E78.5 and Acute non-recurrent maxillary sinusitis J01.00 [facility] [place] [id number] [place] [address] Sep, [facility] [place] [id number] [place] [address] Sep, [facility] [place] [id number] [place] [address] Sep, [facility] [place] [id number] [place] [address] Sep, [place] [address] [address] Aug, Epigastric pain R10.13 and Right upper quadrant pain R10.11 [facility] [place] [id number] [place] [address] Aug, Closed nondisplaced fracture of scaphoid of left wrist, unspecified portion of scaphoid, initial encounter S62.002A [facility] [place] [id number] [place] [address] Aug, [facility] [place] [id number] [place] [address] Aug, [facility] [id number] [place] [address] Aug, Shortness of breath R06.02 ; Epigastric pain R10.13 and Injury of left lower arm, initial encounter S59.912A [place] [id number] [place] [address] Aug, Coronary artery disease involving asa'cars[place] heart with angina pectoris, unspecified vessel or lesion type I25.119 ; Pulmonary emphysema, unspecified emphysema type J43.9 and Snoring R06.83 [place] [id number] [place] [address] Aug, [place] [address] [place] [address] Aug, Emphysema, unspecified J43.9 ; Atherosclerotic heart disease of [place] coronary artery without angina pectoris I25.10 and Hypertension I10 [place] [address] [place] [address] July, [place] [id number] [place] [address] July, Closed nondisplaced fracture of scaphoid of left wrist, unspecified portion of scaphoid, initial encounter S62.002A [place] [address] [place] [address] July, [facility] [id number] [address] July, Type 2 diabetes mellitus with diabetic neuropathy, unspecified E11.40 ; Emphysema, unspecified J43.9 ; Atherosclerotic heart disease of [place] coronary artery without angina pectoris I25.10 ; [...] agents L24.89 and Hospital discharge follow-up Z09 [place] [address] [address] July, [place] [id number] [place] [address] July, Type 2 diabetes mellitus with diabetic neuropathy, unspecified E11.40 [place] [address] [address] July, Type 2 diabetes mellitus with diabetic neuropathy, unspecified E11.40 and Rheumatoid arthritis of left wrist without organ or system involvement with positive rheumatoid factor M05.732 [place] [address] [address] July, [facility] [id number] [place] [address] July, [place] [address] [address] Jun, [facility] [id number] [place] [address] Jun, [place] [address] [address] Jun, 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 [facility] [address] [address] 15 Jun, 2015 [place] [address] [place] [address] Jun, 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 [place] [address] [address] Jun, [facility] [id number] [place] [address] Jun, [place] [address] [place] [address] Jun, Encounter for PPD test Z11.1 ; Rheumatoid arthritis with rheumatoid factor of right wrist without organ or systems involvement M05.731 and Rheumatoid arthritis of left wrist without organ or system involvement with positive rheumatoid factor M05.732 [place] [address] [place] [address] Jun, Type 2 diabetes mellitus with diabetic neuropathy, unspecified E11.40 [place] [address] [place] [address] May, Type 2 diabetes mellitus with diabetic neuropathy, unspecified E11.40 ; Emphysema, unspecified J43.9 ; Rheumatoid arthritis with rheumatoid factor of right wrist without organ or systems involvement M05.731 ; Rheumatoid arthritis of left wrist without organ or system involvement with positive rheumatoid factor M05.732 and Chronic pain G89.29 [place] [address] [address] May, [place] [address] [place] [address] May, Swelling of hand joint M25.449 ; Ankle swelling M25.473 and Joint pain M25.50 [place] [address] [address] 16 May, 2015 Emphysema, unspecified J43.9 [place] [address] [place] [address] May, Gastroenteritis K52.9 and Hypertension I10 [place] [id number] [place] [address] Apr, [place] [address] [address] Apr, [place] [address] [address] Apr, [place] [address] [address] Apr, Type 2 diabetes mellitus with diabetic neuropathy, unspecified E11.40 ; Emphysema, unspecified J43.9 ; Atherosclerotic heart disease of [place] coronary artery without angina pectoris I25.10 ; Migraine without aura, not intractable, with status migrainosus G43.001 ; Gastro-esophageal reflux disease without esophagitis K21.9 ; CAD (coronary artery disease) I25.10 ; Hypertension I10 ; Hyperlipemia E78.5 ; Allergic rhinitis J30.9 ; Neuropathy G62.9 ; Anxiety associated with depression F41.8 and Injury of left hand S69.92XA [address] [address] Apr, [address] [address] Apr, [place] [address] [address] 04 Apr, 2015 Type 2 diabetes mellitus with diabetic neuropathy, unspecified E11.40 ; Emphysema, unspecified J43.9 ; Essential (primary) hypertension I10 ; Atherosclerotic heart disease of [place] coronary artery without angina pectoris I25.10 ; Gastro-esophageal reflux disease without esophagitis K21.9 ; CAD (coronary artery disease) I25.10 ; Hyperlipemia E78.5 ; Hypertension I10 ; History of solitary pulmonary nodule Z87.898 ; Allergic rhinitis J30.9 ; Chronic pain G89.29 and Depression with anxiety F41.[address] [place] [address] Mar, [place] [address] [address] Mar, Allergic rhinitis J30.9 ; URI (upper respiratory infection) J06.9 and Other viral agents as the cause of diseases classified elsewhere B97.89 [facility] [address] [address] Feb, Acute nasopharyngitis [common cold] J00 and Acute diarrhea R19.7 [place] [address] [address] Feb, Depression F32.9 [place] [address] [address] Jan, Otitis media, right H66.91 [place] [address] [address] Jan, [place] [address] [address] Jan, Type 2 diabetes mellitus with diabetic neuropathy, unspecified E11.40 [place] [address] [address] Jan, [place] [address] [address] Jan, Hyperlipemia E78.5 [place] [address] [address] Jan, Type 2 diabetes mellitus with diabetic neuropathy, unspecified E11.40 ; Emphysema, unspecified J43.9 ; CAD (coronary artery disease) I25.10 and Hyperlipemia E78.5 [place] [address] [address] Dec, Allergic rhinitis J30.9 and Fungal infection B49 [place] [address] [address] Dec, [place] [id number] [place] [address] Dec, [address] [address] Dec, Chest pain R07.9 ; CAD (coronary artery disease) I25.10 ; Hypertension I10 and Hyperlipemia E78.[address] [address] Dec, Pain in thoracic spine M54.6 ; Gastro-esophageal reflux disease without esophagitis K21.9 ; Emphysema, unspecified J43.9 and Migraine without aura, not intractable, with status migrainosus G43.[address] [address] Dec, [address] [address] Nov, Influenza vaccine administered V04.[address] [address] Nov, [address] [address] Sep, [address] [address] Sep, [address] [address] Sep, CAD (coronary artery disease) 414.00 and Diabetes type 2, uncontrolled 250.[address] [address] Sep, CAD (coronary artery disease) 414.00 ; Diabetes type 2, uncontrolled 250.02 and Migraine 346.90 IMMUNIZATIONS No Known Immunizations SOCIAL HISTORY Never Assessed REASON FOR VISIT Denied IPT PLAN OF CARE VITAL SIGNS MEDICATIONS Unknown [...] unspecified Medical History Atherosclerotic heart disease of [place] coronary artery without angina pectoris Medical History [...]
--- OUTSIDE RECORDS SUMMARY | 2018-08-23 17:39 | XMS REPORT ---
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 Name Role Phone SANJIV CHICAS Unavailable PROBLEMS Type Condition ICD9-CM Code HWM32-YB Code Onset Dates Condition Status SNOMED Code Problem Other hammer toe(s) (acquired), left foot M20.42 Active 89352913 Problem Tobacco abuse Z72.0 Active 402729024 Problem Other hammer toe(s) (acquired), right foot M20.41 Active 044266874 Problem Acute rheumatoid arthritis M06.9 Active 52652615 Problem Emphysema, unspecified J43.9 Active 16294350 Problem Intractable migraine without status migrainosus, unspecified migraine type G43.919 Active 294868084 Problem Gastro-esophageal reflux disease without esophagitis K21.9 Active 244590667 Problem Hypertension I10 Active 39060094 Problem 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 Active 200018347652138 Problem Hammer toe of left foot M20.42 Active 005623486 Problem Elevated white blood cell count, unspecified D72.829 Active 510579648 Problem Other chronic pain G89.29 Active 49985151 Problem Anxiety associated with depression F41.8 Active 024825741 Problem Chronic pain G89.29 Active 60485540 Problem Type 2 diabetes mellitus with diabetic neuropathy, unspecified E11.40 Active 11768903 Problem Allergic rhinitis J30.9 Active 72516403 Problem Primary insomnia F51.01 Active 0149876 Problem Periodontitis K05.30 Active 99561915 Problem Vitamin D deficiency E55.9 Active 65127281 Problem OAB (overactive bladder) N32.81 Active 746584825 Problem Dependence on nocturnal oxygen therapy Z99.81 Active 72515070225520 Problem Hyperlipemia E78.5 Active 48357269 Problem Rheumatoid arthritis involving multiple sites with positive rheumatoid factor M05.79 Active 786032912 Problem Neuropathy G62.9 Active 323957592 ALLERGIES No Information ENCOUNTERS Encounter Location Date Diagnosis [facility] [id number] [place] [address] Mar, [facility] [id number] [place] [address] Feb, Type 2 diabetes mellitus with diabetic neuropathy, unspecified E11.40 and Neuropathy G62.9 [place] [id number] [place] [address] Feb, Chronic pain G89.29 [facility] [id number] [place] [address] Jan, Pain of toe of right foot M79.674 and Acute maxillary sinusitis, recurrence not specified J01.00 [place] [id number] [place] [address] Jan, Emphysema, unspecified J43.9 and Neuropathy G62.9 [place] [id number] [place] [address] Jan, Chronic pain G89.29 [place] [id number] [place] [address] Dec, [place] [id number] [place] [address] Dec, Rheumatoid arthritis involving multiple sites with positive rheumatoid factor M05.79 [place] [id number] [place] [address] Dec, Rheumatoid arthritis involving multiple sites with positive rheumatoid factor M05.79 [place] [address] [address] Dec, Rheumatoid arthritis involving multiple sites with positive rheumatoid factor M05.79 and Need for hepatitis C screening test Z11.59 [place] [id number] [place] [address] Dec, Acute rheumatoid arthritis M06.9 [place] [id number] [place] [address] Dec, [place] [address] [address] Dec, Type 2 diabetes mellitus with diabetic neuropathy, unspecified E11.40 and Neuropathy G62.9 [place] [id number] [place] [address] Dec, Chronic pain G89.29 [place] [id number] [place] [address] Nov, Type 2 diabetes mellitus with diabetic neuropathy, unspecified E11.40 ; Neuropathy G62.9 ; Hypertension I10 ; Dependence on nocturnal oxygen therapy Z99.81 ; Emphysema, unspecified J43.9 and Encounter for immunization Z23 [place] [id number] [place] [address] Nov, Chronic pain G89.29 [place] [id number] [place] [address] Nov, Chronic pain G89.29 [facility] [id number] [place] [address] Oct, Dysuria R30.0 ; Intractable migraine without status migrainosus, unspecified migraine type G43.919 and Back pain at L4-L5 level M54.5 [place] [id number] [place] [address] Oct, Orthostatic hypotension I95.1 [place] [id number] [place] [address] Oct, Localized swelling of both lower legs R22.43 ; Onychomycosis B35.1 and Type 2 diabetes mellitus with diabetic neuropathy, unspecified E11.40 [place] [id number] [place] [address] Oct, [place] [id number] [place] [address] Oct, Elevated white blood cell count, unspecified D72.829 [place] [id number] [place] [address] Oct, Elevated white blood cell count, unspecified D72.829 [place] [id number] [place] [address] Oct, Chronic pain G89.29 [place] [id number] [place] [address] Oct, [place] [id number] [place] [address] Oct, [place] [id number] [place] [address] Oct, Orthostatic hypotension I95.1 ; Dizziness R42 and Neuropathy G62.9 [facility] [id number] [place] [address] Oct, Dizziness R42 ; Low back pain M54.5 ; Other chronic pain G89.29 ; Nausea R11.0 and Orthostatic hypotension I95.1 [place] [id number] [place] [address] Sep, Rheumatoid arthritis involving multiple sites with positive rheumatoid factor M05.79 and Tobacco abuse Z72.0 [place] [id number] [place] [address] Sep, Chronic pain G89.29 [place] [id number] [place] [address] Aug, Type 2 diabetes mellitus with diabetic neuropathy, unspecified E11.40 ; Hypertension I10 ; Hyperlipemia E78.5 ; Gastro-esophageal reflux disease without esophagitis K21.9 ; Emphysema, unspecified J43.9 ; Anxiety associated with depression F41.8 ; Vitamin D deficiency E55.9 ; Chronic pain G89.29 ; Tobacco abuse Z72.0 ; Overweight (BMI 25.0-29.9) E66.3 ; 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 [id number] [place] [address] July, [facility] [address] [address] July, [facility] [address] [address] July, Chronic pain G89.29 [facility] [address] [address] July, [facility] [id number] [place] [address] July, Onychomycosis B35.1 ; Hammer toe of left foot M20.42 and Type 2 diabetes mellitus with diabetic neuropathy, unspecified E11.40 [facility] [id number] [place] [address] July, [facility] [id number] [place] [address] July, Chronic pain G89.[address] [facility] [id number] [place] [address] July, [facility] [id number] [place] [address] July, [facility] [id number] [place] [address] Jun, [facility] [id number] [place] [address] Jun, Chronic pain G89.29 [facility] [id number] [place] [address] Jun, [facility] [id number] [place] [address] Jun, [facility] [address] [place] [address] Jun, Visit for TB skin test Z11.1 [facility] [address] [place] [address] 16 Jun, 2017 [facility] [id number] [place] [address] Jun, [facility] [id number] [place] [address] Jun, Tobacco abuse Z72.0 and Rheumatoid arthritis involving multiple sites with positive rheumatoid factor M05.79 [place] [id number] [place] [address] Jun, Anxiety F41.9 ; Acute non-recurrent maxillary sinusitis J01.00 and Chronic pain G89.29 [place] [address] [place] [address] Jun, [facility] [address] [place] [address] May, Rheumatoid arthritis involving multiple sites with positive rheumatoid factor M05.79 [facility] [address] [place] [address] May, Chronic pain G89.29 [facility] [address] [place] [address] May, [facility] [address] [place] [address] May, [facility] [id number] [place] [address] May, [facility] [address] [place] [address] May, Type 2 diabetes mellitus with diabetic neuropathy, unspecified E11.40 [facility] [id number] [place] [address] May, Type 2 diabetes mellitus with diabetic [...] reflux disease without esophagitis K21.9 [place] [id number] [place] [address] Apr, Chronic pain G89.29 [place] [address] [address] 16 Apr, 2017 Other hammer toe(s) (acquired), left foot M20.42 ; Other hammer toe(s) (acquired), right foot M20.41 ; Type 2 diabetes mellitus with diabetic neuropathy, unspecified E11.40 and Onychomycosis B35.1 [place] [id number] [place] [address] 2017 Gastro-esophageal reflux disease without esophagitis K21.9 [place] [address] [address] Apr, Controlled substance agreement signed Z79.899 [place] [id number] [place] [address] Mar, Chronic pain G89.29 [place] [id number] [place] [address] Mar, Emphysema, unspecified J43.9 and Type 2 diabetes mellitus with diabetic neuropathy, unspecified E11.40 [facility] [id number] [place] [address] Mar, Dysuria R30.0 ; Vaginal candidiasis B37.3 and Acute nonintractable headache, unspecified headache type R51 [place] [address] [place] [address] Feb, Neuropathy G62.9 and Chronic pain G89.29 [place] [id number] [place] [address] Feb, Gastro-esophageal reflux disease without esophagitis K21.9 [facility] [id number] [place] [address] Feb, [place] [address] [address] Feb, Rheumatoid arthritis involving multiple sites with positive rheumatoid factor M05.79 and COPD with acute exacerbation J44.1 [place] [address] [address] Feb, Vaginal odor N89.8 ; Vaginal irritation N89.8 ; Candidal dermatitis B37.2 and Screening breast examination Z12.31 [place] [id number] [place] [address] Feb, [place] [id number] [place] [address] Feb, [place] [id number] [place] [address] Feb, [place] [id number] [place] [address] Feb, COPD with exacerbation J44.1 ; Tobacco abuse counseling Z71.6 ; Tobacco abuse Z72.0 ; Rheumatoid arthritis involving multiple sites with positive rheumatoid factor M05.[address] [facility] [id number] [place] [address] Feb, [place] [id number] [place] [id number] Jan, [facility] [id number] [place] [address] Jan, Chronic pain G89.29 [facility] [address] [id number] 27 Jan, 2017 Dental examination Z01.20 [facility] [id number] [place] [address] 19 Jan, 2017 Back pain of lumbar region with sciatica M54.40 [facility] [id number] [place] [address] 15 Jan, 2017 Acute bacterial conjunctivitis of both eyes H10.33 [place] [id number] [place] [address] 02 Jan, 2017 Chronic pain G89.29 [place] [address] [address] Dec, Type 2 diabetes mellitus with diabetic neuropathy, unspecified E11.40 ; Hypertension I10 ; Hyperlipemia E78.5 ; Gastro-esophageal reflux disease without esophagitis K21.9 ; Anxiety associated with depression F41.8 ; Allergic rhinitis J30.9 ; Neuropathy G62.9 and Dependence on nocturnal oxygen therapy Z99.81 [place] [id number] [place] [address] Dec, [place] [id number] [place] [address] Dec, [place] [id number] [place] [address] Dec, Encounter for immunization Z23 [place] [id number] [place] [address] 05 Dec, 2016 Type 2 diabetes mellitus with diabetic neuropathy, unspecified E11.40 and Chronic pain G89.29 [place] [id number] [place] [address] 11 Nov, 2016 Gastro-esophageal reflux disease without esophagitis K21.9 [place] [id number] [place] [address] 11 Nov, 2016 Peripheral edema R60.9 and Chest pain in adult R07.9 [facility] [id number] [place] [address] 07 Nov, [address] [facility] [id number] [place] [address] 31 Oct, 2016 [facility] [id number] [place] [address] Oct, [facility] [id number] [place] [address] 17 Oct, 2016 Rheumatoid arthritis with rheumatoid factor of right wrist without organ or systems involvement M05.731 [facility] [address] [address] Oct, [facility] [id number] [place] [address] Oct, Acute exacerbation of chronic obstructive pulmonary disease (COPD) J44.1 and Canker sore K12.0 [facility] [id number] [place] [address] Oct, [facility] [id number] [place] [address] Oct, [facility] [id number] [place] [address] Oct, Chronic pain G89.29 [facility] [id number] [place] [id number] Oct, Dental examination Z01.20 [facility] [id number] [place] [address] Oct, Dental examination Z01.20 and Periodontitis K05.30 [facility] [id number] [place] [id number] Oct, Dental examination Z01.20 [facility] [id number] [place] [address] Sep, Abscess L02.91 [place] [address] [address] 27 Sep, 2016 Dental examination Z01.20 [place] [id number] [place] [address] Sep, [facility] [address] [id number] Sep, Dental examination Z01.20 and Dental caries K02.9 [place] [id number] [place] [address] Sep, Primary insomnia F51.01 and Anxiety associated with depression F41.8 [place] [id number] [place] [address] Sep, Rheumatoid arthritis with rheumatoid factor of right wrist without organ or systems involvement M05.731 [place] [id number] [place] [address] Sep, Chronic pain G89.29 [place] [id number] [place] [address] Sep, Type 2 diabetes mellitus with diabetic neuropathy, unspecified E11.40 ; Emphysema, unspecified J43.9 ; Gastro-esophageal reflux disease without esophagitis K21.9 ; Hypertension I10 ; Hyperlipemia E78.5 ; Anxiety associated with depression F41.8 ; Chronic pain G89.29 ; Vitamin D deficiency E55.9 and Primary insomnia F51.01 [place] [address] [place] [address] 16 Aug, 2016 Anxiety associated with depression F41.8 [place] [address] [place] [address] Aug, Chronic pain G89.29 and Neuropathy G62.9 [place] [address] [place] [address] Aug, Type 2 diabetes mellitus with diabetic neuropathy, unspecified E11.40 ; Rheumatoid arthritis involving multiple sites with positive rheumatoid factor M05.79 ; Vitamin D deficiency E55.9 ; Anxiety associated with depression F41.8 and Primary insomnia F51.01 [place] [id number] [place] [address] July, Emphysema, unspecified J43.9 [place] [id number] [place] [address] July, Allergic rhinitis J30.9 [place] [address] [address] July, Allergic rhinitis J30.9 ; Emphysema, unspecified J43.9 and Rheumatoid arthritis with rheumatoid factor of right wrist without organ or systems involvement M05.731 [place] [address] [address] July, Neuropathy G62.9 and Chronic pain G89.29 [place] [address] [address] July, Rheumatoid arthritis involving multiple sites with positive rheumatoid factor M05.79 [place] [id number] [place] [address] Jun, [place] [address] [address] Jun, Neuropathy G62.9 and Chronic pain G89.29 [place] [id number] [place] [address] May, Neuropathy G62.9 and Chronic pain G89.29 [place] [id number] [place] [address] May, [place] [address] [address] May, [place] [id number] [place] [address] May, Type 2 diabetes mellitus with diabetic [...] with positive rheumatoid factor M05.732 [place] [address] [address] 14 Apr, 2016 Chronic pain G89.29 [place] [address] [address] Mar, Gastro-esophageal reflux disease without esophagitis K21.9 [place] [address] [address] Mar, [place] [address] [address] Mar, Rheumatoid arthritis with rheumatoid factor of right wrist without organ or systems involvement M05.731 [place] [address] [address] Mar, Chronic pain G89.29 [place] [address] [address] Feb, Hyperlipemia E78.5 [place] [address] [address] Feb, Abnormal breath sounds R06.89 ; COPD with exacerbation J44.1 and Fatigue, unspecified type R53.[address] [address] Feb, Neuropathy G62.9 ; Abnormal lung sounds R09.89 and Bronchitis J40 [facility] [id number] [place] [address] Feb, Bronchitis J40 [place] [id number] [address] Feb, Chronic pain G89.29 [place] [id number] [place] [address] Jan, Type 2 diabetes mellitus with diabetic neuropathy, unspecified E11.40 ; Rheumatoid arthritis with rheumatoid factor of right wrist without organ or systems involvement M05.731 and Hyperlipemia E78.5 [place] [id number] [place] [address] Jan, Rheumatoid arthritis with rheumatoid factor of right wrist without organ or systems involvement M05.731 [place] [id number] [place] [address] Jan, De Quervain's disease (radial styloid tenosynovitis) M65.4 ; Closed nondisplaced fracture of scaphoid of left wrist, unspecified portion of scaphoid, initial encounter S62.002A and Peripheral tear of medial meniscus of left knee, unspecified whether old or current tear, initial encounter S83.222A [place] [address] [place] [address] Jan, Hypertension I10 ; Type 2 diabetes mellitus with diabetic neuropathy, unspecified E11.40 ; Hyperlipemia E78.5 ; Allergic rhinitis J30.9 ; Neuropathy G62.9 ; Rheumatoid arthritis with rheumatoid factor of right wrist without organ or systems involvement M05.731 ; Acute non-recurrent maxillary sinusitis J01.00 and Chronic pain G89.29 [place] [address] [address] Dec, [place] [id number] [place] [address] Dec, [place] [id number] [place] [address] Dec, Type 2 diabetes mellitus with diabetic neuropathy, unspecified E11.40 ; Emphysema, unspecified J43.9 ; Gastro-esophageal reflux disease without esophagitis K21.9 ; Hypertension I10 ; Hyperlipemia E78.5 ; Rheumatoid arthritis with rheumatoid factor of right wrist without organ or systems involvement M05.731 ; Elevated white blood cell count, unspecified D72.829 ; Acute non- recurrent frontal sinusitis J01.10 and Chronic pain G89.29 [place] [id number] [place] [address] Nov, [place] [address] [address] Nov, Elevated white blood cell count, unspecified D72.829 ; Encounter for immunization Z23 ; Rheumatoid arthritis with rheumatoid factor of right wrist without organ or systems involvement M05.731 ; Injury of left hand S69.92XA ; Pain in left knee M25.562 and Other chronic pain G89.29 [place] [address] [address] Nov, [place] [address] [address] Nov, [place] [address] [address] Oct, [place] [address] [address] Oct, Hyperlipemia E78.5 [place] [address] [place] [id number] [place] [id number] Oct, [place] [address] [address] Oct, Type 2 diabetes mellitus with diabetic neuropathy, unspecified E11.40 ; Neuropathy G62.9 ; Hypertension I10 ; Chronic pain G89.29 and Hyperlipemia E78.5 [place] [address] [address] Oct, Emphysema, unspecified J43.9 and Rheumatoid arthritis of left wrist without organ or system involvement with positive rheumatoid factor M05.732 [place] [address] [place] [address] Sep, Chronic pain syndrome G89.4 [facility] [address] [place] [id number] [place] [address] Sep, [facility] [id number] [place] [address] Sep, [facility] [id number] [place] [address] Sep, Closed nondisplaced fracture of scaphoid of left wrist, unspecified portion of scaphoid, initial encounter S62.002A [facility] [id number] [place] [address] Sep, Type 2 diabetes mellitus with diabetic neuropathy, unspecified E11.40 ; Hypertension I10 ; Hyperlipemia E78.5 and Acute non-recurrent maxillary sinusitis J01.00 [facility] [id number] [place] [address] Sep, [facility] [id number] [place] [address] Sep, [facility] [id number] [place] [address] Sep, [facility] [id number] [place] [address] Sep, [facility] [id number] [place] [address] Aug, Epigastric pain R10.13 and Right upper quadrant pain R10.11 [facility] [id number] [place] [address] Aug, Closed nondisplaced fracture of scaphoid of left wrist, unspecified portion of scaphoid, initial encounter S62.002A [facility] [id number] [place] [address] Aug, [facility] [id number] [place] [address] Aug, [facility] [id number] [place] [address] Aug, Shortness of breath R06.02 ; Epigastric pain R10.13 and Injury of left lower arm, initial encounter S59.912A [facility] [id number] [place] [address] Aug, Coronary artery disease involving morongo heart with angina pectoris, unspecified vessel or lesion type I25.119 ; Pulmonary emphysema, unspecified emphysema type J43.9 and Snoring R06.83 [address] [address] Aug, [facility] [id number] [place] [address] Aug, Emphysema, unspecified J43.9 ; 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 and Hypertension I10 [place] [facility] [id number] [place] [address] July, [facility] [id number] [place] [address] July, Closed nondisplaced fracture of scaphoid of left wrist, unspecified portion of scaphoid, initial encounter S62.002A [facility] [id number] [place] [address] July, [facility] [id number] [place] [address] July, Type 2 diabetes mellitus with diabetic neuropathy, unspecified E11.40 ; Emphysema, unspecified J43.9 ; 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 [id number] [place] [address] July, [facility] [id number] [place] [address] July, Type 2 diabetes mellitus with diabetic neuropathy, unspecified E11.40 [facility] [id number] [place] [address] July, Type 2 diabetes mellitus with diabetic neuropathy, unspecified E11.40 and Rheumatoid arthritis of left wrist without organ or system involvement with positive rheumatoid factor M05.732 [facility] [id number] [place] [address] July, [facility] [id number] [place] [address] July, [facility] [id number] [place] [address] Jun, [facility] [id number] [place] [address] Jun, [facility] [id number] [place] [address] 15 Jun, 2015 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 [facility] [id number] [place] [address] 15 Jun, 2015 [facility] [id number] [place] [address] Jun, 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 [facility] [id number] [place] [address] Jun, [facility] [id number] [place] [address] Jun, [facility] [id number] [place] [address] Jun, Encounter for PPD test Z11.1 ; Rheumatoid arthritis with rheumatoid factor of right wrist without organ or systems involvement M05.731 and Rheumatoid arthritis of left wrist without organ or system involvement with positive rheumatoid factor M05.732 [facility] [id number] [place] [address] Jun, Type 2 diabetes mellitus with diabetic neuropathy, unspecified E11.40 [address] [address] May, Type 2 diabetes mellitus with diabetic neuropathy, unspecified E11.40 ; Emphysema, unspecified J43.9 ; Rheumatoid arthritis with rheumatoid factor of right wrist without organ or systems involvement M05.731 ; Rheumatoid arthritis of left wrist without organ or system involvement with positive rheumatoid factor M05.732 and Chronic pain G89.29 [address] [address] May, [address] [address] May, Swelling of hand joint M25.449 ; Ankle swelling M25.473 and Joint pain M25.50 [address] [address] May, Emphysema, unspecified J43.9 [address] [place] [address] [address] May, Gastroenteritis K52.9 and Hypertension I10 [address] [address] Apr, [address] [address] Apr, [address] [address] Apr, [address] [address] Apr, Type 2 diabetes mellitus with diabetic neuropathy, unspecified E11.40 ; Emphysema, unspecified J43.9 ; 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 ; Migraine without aura, not intractable, with status migrainosus G43.001 ; Gastro-esophageal reflux disease without esophagitis K21.9 ; CAD (coronary artery disease) I25.10 ; Hypertension I10 ; Hyperlipemia E78.5 ; Allergic rhinitis J30.9 ; Neuropathy G62.9 ; Anxiety associated with depression F41.8 and Injury of left hand S69.92XA [place] [id number] [place] [address] Apr, [address] [address] Apr, [address] [address] Apr, Type 2 diabetes mellitus with diabetic neuropathy, unspecified E11.40 ; Emphysema, unspecified J43.9 ; Essential (primary) hypertension I10 ; 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 ; Gastro-esophageal reflux disease without esophagitis K21.9 ; CAD (coronary artery disease) I25.10 ; Hyperlipemia E78.5 ; Hypertension I10 ; History of solitary pulmonary nodule Z87.898 ; Allergic rhinitis J30.9 ; Chronic pain G89.29 and Depression with anxiety F41.8 [id number] [place] [address] Mar, [id number] [place] [address] Mar, Allergic rhinitis J30.9 ; URI (upper respiratory infection) J06.9 and Other viral agents as the cause of diseases classified elsewhere B97.89 [facility] [address] [place] [id number] [place] [address] Feb, Acute nasopharyngitis [common cold] J00 and Acute diarrhea R19.[address] [place] [address] Feb, Depression F32.9 [address] [address] Jan, Otitis media, right H66.91 [address] [address] Jan, [address] [address] [address] Jan, Type 2 diabetes mellitus with diabetic neuropathy, unspecified E11.40 [address] [address] Jan, [address] [address] Jan, Hyperlipemia E78.5 [address] [address] Jan, Type 2 diabetes mellitus with diabetic neuropathy, unspecified E11.40 ; Emphysema, unspecified J43.9 ; CAD (coronary artery disease) I25.10 and Hyperlipemia E78.5 [address] [address] Dec, Allergic rhinitis J30.9 and Fungal infection B49 [address] [address] Dec, [address] [address] Dec, [place] [facility] [id number] [place] [address] Dec, Chest pain R07.9 ; CAD (coronary artery disease) I25.10 ; Hypertension I10 and Hyperlipemia E78.5 [address] [address] 08 Dec, 2014 Pain in thoracic spine M54.6 ; Gastro-esophageal reflux disease without esophagitis K21.9 ; Emphysema, unspecified J43.9 and Migraine without aura, not intractable, with status migrainosus G43.001 [place] [id number] [place] [address] Dec, [place] [facility] [id number] [place] [address] Nov, Influenza vaccine administered V04.81 [place] [id number] [place] [address] Nov, [place] [id number] [place] [address] Sep, [place] [id number] [place] [address] Sep, [place] [id number] [place] [address] Sep, CAD (coronary artery disease) 414.00 and Diabetes type 2, uncontrolled 250.02 [id number] [place] [address] Sep, CAD (coronary artery disease) 414.00 ; Diabetes type 2, uncontrolled 250.02 and Migraine 346.90 IMMUNIZATIONS No Known Immunizations SOCIAL HISTORY Never Assessed REASON FOR VISIT refill request PLAN OF CARE VITAL SIGNS MEDICATIONS Medication Instructions Dosage Frequency Start Date End Date Duration Status HydrOXYzine HCl 25 MG Orally every 8 hrs 1 tablet as needed 8h 30 Active Metformin HCl 1000 mg Orally 2 times a day 1 tablet with a meal 12h Active Atorvastatin Calcium 10 mg Orally Once a day 1 tablet 24h Active Trazodone HCl 50 MG TAKE ONE TABLET BY MOUTH ONCE DAILY AT BEDTIME NEEDED 30 Active RESULTS No Results PROCEDURES No [...] unspecified Medical History Atherosclerotic heart disease of morongo coronary artery without angina pectoris Medical History [...]
--- OUTSIDE RECORDS SUMMARY | 2018-08-23 17:40 | XMS REPORT ---
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 Name Role Phone JESSICA DALEY Unavailable PROBLEMS Type Condition ICD9-CM Code PYL41-EW Code Onset Dates Condition Status SNOMED Code Problem Other hammer toe(s) (acquired), left foot M20.42 Active 95776397 Problem Tobacco abuse Z72.0 Active 741696994 Problem Other hammer toe(s) (acquired), right foot M20.41 Active 622380277 Problem Acute rheumatoid arthritis M06.9 Active 02111639 Problem Emphysema, unspecified J43.9 Active 62295847 Problem Intractable migraine without status migrainosus, unspecified migraine type G43.919 Active 846703522 Problem Gastro-esophageal reflux disease without esophagitis K21.9 Active 654714868 Problem Hypertension I10 Active 04251067 Problem Atherosclerotic heart disease of [place] coronary artery without angina pectoris I25.10 Active 128820616976746 Problem Hammer toe of left foot M20.42 Active 402265169 Problem Elevated white blood cell count, unspecified D72.829 Active 909445859 Problem Other chronic pain G89.29 Active 91497228 Problem Anxiety associated with depression F41.8 Active 063300082 Problem Chronic pain G89.29 Active 89873882 Problem Type 2 diabetes mellitus with diabetic neuropathy, unspecified E11.40 Active 18260107 Problem Allergic rhinitis J30.9 Active 54673929 Problem Primary insomnia F51.01 Active 8995329 Problem Periodontitis K05.30 Active 46716044 Problem Vitamin D deficiency E55.9 Active 83578271 Problem OAB (overactive bladder) N32.81 Active 971652933 Problem Dependence on nocturnal oxygen therapy Z99.81 Active 69763738542939 Problem Hyperlipemia E78.5 Active 63691109 Problem Rheumatoid arthritis involving multiple sites with positive rheumatoid factor M05.79 Active 466307159 Problem Neuropathy G62.9 Active 440796741 ALLERGIES No Information ENCOUNTERS Encounter Location Date Diagnosis [facility] [id number] [place] [address] Mar, [facility] [id number] [place] [address] Feb, [facility] [id number] [place] [address] Feb, Chronic pain G89.29 [facility] [id number] [place] [address] Jan, Pain of toe of right foot M79.674 and Acute maxillary sinusitis, recurrence not specified J01.00 [facility] [id number] [place] [address] Jan, Emphysema, unspecified J43.9 and Neuropathy G62.9 [facility] [id number] [place] [address] Jan, Chronic pain G89.29 [facility] [id number] [place] [address] Dec, [facility] [id number] [place] [address] Dec, Rheumatoid arthritis involving multiple sites with positive rheumatoid factor M05.79 [facility] [id number] [place] [address] Dec, Rheumatoid arthritis involving multiple sites with positive rheumatoid factor M05.79 [facility] [id number] [place] [address] Dec, Rheumatoid arthritis involving multiple sites with positive rheumatoid factor M05.79 and Need for hepatitis C screening test Z11.59 [facility] [id number] [place] [address] Dec, Acute rheumatoid arthritis M06.9 [facility] [id number] [place] [address] Dec, [facility] [id number] [place] [address] Dec, Type 2 diabetes mellitus with diabetic neuropathy, unspecified E11.40 and Neuropathy G62.9 [facility] [id number] [place] [address] Dec, Chronic pain G89.29 [facility] [address] [address] Nov, Type 2 diabetes mellitus with diabetic neuropathy, unspecified E11.40 ; Neuropathy G62.9 ; Hypertension I10 ; Dependence on nocturnal oxygen therapy Z99.81 ; Emphysema, unspecified J43.9 and Encounter for immunization Z23 [facility] [id number] [place] [address] Nov, Chronic pain G89.29 [facility] [address] [address] Nov, Chronic pain G89.29 [facility] [id number] [place] [phone] Oct, Dysuria R30.0 ; Intractable migraine without status migrainosus, unspecified migraine type G43.919 and Back pain at L4-L5 level M54.5 [facility] [id number] [place] [address] Oct, Orthostatic hypotension I95.1 [facility] [id number] [place] [address] Oct, Localized swelling of both lower legs R22.43 ; Onychomycosis B35.1 and Type 2 diabetes mellitus with diabetic neuropathy, unspecified E11.40 [facility] [id number] [place] [address] Oct, [facility] [id number] [place] [address] Oct, Elevated white blood cell count, unspecified D72.829 [facility] [id number] [place] [address] Oct, Elevated white blood cell count, unspecified D72.829 [facility] [id number] [place] [address] Oct, Chronic pain G89.29 [facility] [id number] [place] [address] Oct, [facility] [id number] [place] [address] Oct, [facility] [id number] [place] [address] Oct, Orthostatic hypotension I95.1 ; Dizziness R42 and Neuropathy G62.9 [facility] [id number] [place] [address] Oct, Dizziness R42 ; Low back pain M54.5 ; Other chronic pain G89.29 ; Nausea R11.0 and Orthostatic hypotension I95.1 [facility] [id number] [place] [address] Sep, Rheumatoid arthritis involving multiple sites with positive rheumatoid factor M05.79 and Tobacco abuse Z72.0 [facility] [id number] [place] [address] Sep, Chronic pain G89.29 [facility] [id number] [place] [address] Aug, Type 2 diabetes mellitus with diabetic neuropathy, unspecified E11.40 ; Hypertension I10 ; Hyperlipemia E78.5 ; Gastro-esophageal reflux disease without esophagitis K21.9 ; Emphysema, unspecified J43.9 ; Anxiety associated with depression F41.8 ; Vitamin D deficiency E55.9 ; Chronic pain G89.29 ; Tobacco abuse Z72.0 ; Overweight (BMI 25.0-29.9) E66.3 ; Atherosclerotic heart disease of [place] coronary artery without angina pectoris I25.10 ; OAB (overactive bladder) N32.81 and Primary insomnia F51.01 [facility] [id number] [place] [address] July, [facility] [id number] [place] [address] July, [facility] [id number] [place] [address] July, Chronic pain G89.29 [facility] [id number] [place] [address] July, [facility] [address] [address] July, Onychomycosis B35.1 ; Hammer toe of left foot M20.42 and Type 2 diabetes mellitus with diabetic neuropathy, unspecified E11.40 [facility] [id number] [place] [address] July, [facility] [id number] [place] [address] July, Chronic pain G89.29 and Neuropathy G62.9 [facility] [id number] [place] [address] July, [facility] [id number] [place] [address] July, [facility] [id number] [place] [address] Jun, [facility] [id number] [place] [address] Jun, Chronic pain G89.29 [facility] [id number] [place] [address] Jun, [facility] [id number] [place] [address] Jun, [facility] [address] [place] [address] 17 Jun, 2017 Visit for TB skin test Z11.1 [facility] [id number] [place] [address] 16 Jun, 2017 [facility] [id number] [place] [address] Jun, [facility] [id number] [place] [address] Jun, Tobacco abuse Z72.0 and Rheumatoid arthritis involving multiple sites with positive rheumatoid factor M05.79 [facility] [id number] [place] [address] Jun, Anxiety F41.9 ; Acute non-recurrent maxillary sinusitis J01.00 and Chronic pain G89.29 [facility] [id number] [place] [address] Jun, [facility] [id number] [place] [address] May, Rheumatoid arthritis involving multiple sites with positive rheumatoid factor M05.79 [facility] [id number] [place] [address] May, Chronic pain G89.29 [facility] [address] [address] May, [facility] [address] [address] May, [facility] [address] [address] May, [facility] [id number] [place] [address] May, Type 2 diabetes mellitus with diabetic neuropathy, unspecified E11.40 [facility] [address] [address] May, Type 2 diabetes mellitus with diabetic [...] reflux disease without esophagitis K21.9 [facility] [address] [address] Apr, Chronic pain G89.29 [facility] [address] [address] 16 Apr, 2017 Other hammer toe(s) (acquired), left foot M20.42 ; Other hammer toe(s) (acquired), right foot M20.41 ; Type 2 diabetes mellitus with diabetic neuropathy, unspecified E11.40 and Onychomycosis B35.1 [facility] [facility] [address] [address] 2017 Gastro-esophageal reflux disease without esophagitis K21.9 [facility] [facility] [address] [address] Apr, Controlled substance agreement signed Z79.899 [facility] [id number] [place] [address] Mar, Chronic pain G89.29 [facility] [id number] [place] [address] Mar, Emphysema, unspecified J43.9 and Type 2 diabetes mellitus with diabetic neuropathy, unspecified E11.40 [facility] [id number] [place] [address] Mar, Dysuria R30.0 ; Vaginal candidiasis B37.3 and Acute nonintractable headache, unspecified headache type R51 [facility] [id number] [place] [address] Feb, Neuropathy G62.9 and Chronic pain G89.29 [facility] [id number] [place] [address] Feb, Gastro-esophageal reflux disease without esophagitis K21.9 [facility] [address] [address] Feb, [place] [address] [address] Feb, Rheumatoid arthritis involving multiple sites with positive rheumatoid factor M05.79 and COPD with acute exacerbation J44.1 [facility] [facility] [address] [address] Feb, Vaginal odor N89.8 ; Vaginal irritation N89.8 ; Candidal dermatitis B37.2 and Screening breast examination Z12.31 [facility] [address] [address] Feb, [place] [facility] [address] [address] Feb, [facility] [address] [address] Feb, [facility] [facility] [address] [address] Feb, COPD with exacerbation J44.1 ; Tobacco abuse counseling Z71.6 ; Tobacco abuse Z72.0 ; Rheumatoid arthritis involving multiple sites with positive rheumatoid factor M05.79 and Hyperlipemia E78.5 [facility] [id number] [place] [address] Feb, [facility] [id number] [place] [id number] Jan, [facility] [address] [address] Jan, Chronic pain G89.29 [facility] [address] [id number] Jan, Dental examination Z01.20 [facility] [id number] [place] [address] 19 Jan, 2017 Back pain of lumbar region with sciatica M54.40 [facility] [id number] [place] [address] 15 Jan, 2017 Acute bacterial conjunctivitis of both eyes H10.33 [facility] [address] [address] 02 Jan, 2017 Chronic pain G89.29 [facility] [address] [address] Dec, Type 2 diabetes mellitus with diabetic neuropathy, unspecified E11.40 ; Hypertension I10 ; Hyperlipemia E78.5 ; Gastro-esophageal reflux disease without esophagitis K21.9 ; Anxiety associated with depression F41.8 ; Allergic rhinitis J30.9 ; Neuropathy G62.9 and Dependence on nocturnal oxygen therapy Z99.81 [facility] [address] [address] Dec, [facility] [address] [address] Dec, [facility] [address] [address] 09 Dec, 2016 Encounter for immunization Z23 [place] [address] [address] 05 Dec, 2016 Type 2 diabetes mellitus with diabetic neuropathy, unspecified E11.40 and Chronic pain G89.29 [facility] [id number] [place] [address] 11 Nov, 2016 Gastro-esophageal reflux disease without esophagitis K21.9 [facility] [address] [address] 11 Nov, 2016 Peripheral edema R60.9 and Chest pain in adult R07.9 [facility] [address] [address] Nov, Chronic pain G89.29 [facility] [id number] [place] [address] Oct, [facility] [id number] [place] [address] Oct, [facility] [id number] [place] [address] Oct, Rheumatoid arthritis with rheumatoid factor of right wrist without organ or systems involvement M05.731 [facility] [id number] [place] [address] Oct, [facility] [id number] [place] [address] Oct, Acute exacerbation of chronic obstructive pulmonary disease (COPD) J44.1 and Canker sore K12.0 [facility] [id number] [place] [address] Oct, [facility] [id number] [place] [address] Oct, [facility] [id number] [place] [address] Oct, Chronic pain G89.29 [facility] [id number] [place] [id number] Oct, Dental examination Z01.20 [facility] [id number] [place] [address] Oct, Dental examination Z01.20 and Periodontitis K05.30 [facility] [id number] [place] [id number] Oct, Dental examination Z01.20 [facility] [id number] [place] [address] Sep, Abscess L02.91 [facility] [id number] [place] [address] Sep, Dental examination Z01.20 [facility] [id number] [address] Sep, [facility] [id number] [id number] Sep, Dental examination Z01.20 and Dental caries K02.9 [facility] [id number] [place] [address] Sep, Primary insomnia F51.01 and Anxiety associated with depression F41.8 [facility] [address] [place] [address] Sep, Rheumatoid arthritis with rheumatoid factor of right wrist without organ or systems involvement M05.731 [facility] [id number] [place] [address] Sep, Chronic pain G89.29 [facility] [id number] [place] [address] Sep, Type 2 diabetes mellitus with diabetic neuropathy, unspecified E11.40 ; Emphysema, unspecified J43.9 ; Gastro-esophageal reflux disease without esophagitis K21.9 ; Hypertension I10 ; Hyperlipemia E78.5 ; Anxiety associated with depression F41.8 ; Chronic pain G89.29 ; Vitamin D deficiency E55.9 and Primary insomnia F51.01 [facility] [address] [address] 16 Aug, 2016 Anxiety associated with depression F41.8 [facility] [id number] [place] [address] 13 Aug, 2016 Chronic pain G89.29 and Neuropathy G62.9 [facility] [id number] [place] [address] Aug, Type 2 diabetes mellitus with diabetic neuropathy, unspecified E11.40 ; Rheumatoid arthritis involving multiple sites with positive rheumatoid factor M05.79 ; Vitamin D deficiency E55.9 ; Anxiety associated with depression F41.8 and Primary insomnia F51.01 [facility] [id number] [place] [address] July, Emphysema, unspecified J43.9 [facility] [id number] [place] [address] July, Allergic rhinitis J30.9 [facility] [id number] [place] [address] July, Allergic rhinitis J30.9 ; Emphysema, unspecified J43.9 and Rheumatoid arthritis with rheumatoid factor of right wrist without organ or systems involvement M05.731 [facility] [id number] [place] [address] July, Neuropathy G62.9 and Chronic pain G89.29 [facility] [id number] [place] [address] July, Rheumatoid arthritis involving multiple sites with positive rheumatoid factor M05.79 [facility] [id number] [place] [address] Jun, [facility] [id number] [place] [address] Jun, Neuropathy G62.9 and Chronic pain G89.29 [facility] [id number] [place] [address] May, Neuropathy G62.9 and Chronic pain G89.29 [facility] [id number] [place] [address] May, [facility] [id number] [place] [address] May, [facility] [id number] [place] [address] May, Type 2 diabetes mellitus with diabetic [...] with positive rheumatoid factor M05.732 [facility] [id number] [place] [address] 14 Apr, 2016 Chronic pain G89.29 [place] [address] [address] Mar, Gastro-esophageal reflux disease without esophagitis K21.9 [place] [address] [address] Mar, [place] [address] [address] Mar, Rheumatoid arthritis with rheumatoid factor of right wrist without organ or systems involvement M05.731 [facility] [facility] [address] [address] Mar, Chronic pain G89.29 [facility] [facility] [address] [address] Feb, Hyperlipemia E78.5 [place] [address] [address] Feb, Abnormal breath sounds R06.89 ; COPD with exacerbation J44.1 and Fatigue, unspecified type R53.83 [facility] [id number] [place] [address] Feb, Neuropathy G62.9 ; Abnormal lung sounds R09.89 and Bronchitis J40 [facility] [id number] [place] [address] Feb, Bronchitis J40 [place] [address] [address] Feb, Chronic pain G89.29 [facility] [facility] [address] [address] Jan, Type 2 diabetes mellitus with diabetic neuropathy, unspecified E11.40 ; Rheumatoid arthritis with rheumatoid factor of right wrist without organ or systems involvement M05.731 and Hyperlipemia E78.5 [facility] [address] [place] [address] Jan, Rheumatoid arthritis with rheumatoid factor of right wrist without organ or systems involvement M05.731 [facility] [address] [place] [address] Jan, De Quervain's disease (radial styloid tenosynovitis) M65.4 ; Closed nondisplaced fracture of scaphoid of left wrist, unspecified portion of scaphoid, initial encounter S62.002A and Peripheral tear of medial meniscus of left knee, unspecified whether old or current tear, initial encounter S83.222A [place] [address] [place] [address] Jan, Hypertension I10 ; Type 2 diabetes mellitus with diabetic neuropathy, unspecified E11.40 ; Hyperlipemia E78.5 ; Allergic rhinitis J30.9 ; Neuropathy G62.9 ; Rheumatoid arthritis with rheumatoid factor of right wrist without organ or systems involvement M05.731 ; Acute non-recurrent maxillary sinusitis J01.00 and Chronic pain G89.29 [facility] [facility] [address] [address] Dec, [facility] [facility] [id number] [place] [address] Dec, [facility] [id number] [place] [address] Dec, Type 2 diabetes mellitus with diabetic neuropathy, unspecified E11.40 ; Emphysema, unspecified J43.9 ; Gastro-esophageal reflux disease without esophagitis K21.9 ; Hypertension I10 ; Hyperlipemia E78.5 ; Rheumatoid arthritis with rheumatoid factor of right wrist without organ or systems involvement M05.731 ; Elevated white blood cell count, unspecified D72.829 ; Acute non- recurrent frontal sinusitis J01.10 and Chronic pain G89.29 [place] [address] [address] Nov, [facility] [id number] [place] [id number] Nov, Elevated white blood cell count, unspecified D72.829 ; Encounter for immunization Z23 ; Rheumatoid arthritis with rheumatoid factor of right wrist without organ or systems involvement M05.731 ; Injury of left hand S69.92XA ; Pain in left knee M25.562 and Other chronic pain G89.29 [place] [address] [address] Nov, [place] [address] [address] Nov, [place] [address] [id number] Oct, [place] [address] [address] Oct, Hyperlipemia E78.5 [facility] [place] [address] [id number] [place] [address] Oct, [facility] [address] [id number] [place] [address] Oct, Type 2 diabetes mellitus with diabetic neuropathy, unspecified E11.40 ; Neuropathy G62.9 ; Hypertension I10 ; Chronic pain G89.29 and Hyperlipemia E78.5 [place] [address] [address] Oct, Emphysema, unspecified J43.9 and Rheumatoid arthritis of left wrist without organ or system involvement with positive rheumatoid factor M05.732 [facility] [id number] [place] [address] Sep, Chronic pain syndrome G89.4 [facility] [id number] [address] Sep, [facility] [id number] [place] [address] Sep, [facility] [id number] [place] [address] Sep, Closed nondisplaced fracture of scaphoid of left wrist, unspecified portion of scaphoid, initial encounter S62.002A [facility] [id number] [place] [address] Sep, Type 2 diabetes mellitus with diabetic neuropathy, unspecified E11.40 ; Hypertension I10 ; Hyperlipemia E78.5 and Acute non-recurrent maxillary sinusitis J01.00 [facility] [id number] [place] [address] Sep, [facility] [id number] [place] [address] Sep, [facility] [id number] [place] [address] Sep, [facility] [id number] [place] [address] Sep, [facility] [id number] [place] [address] Aug, Epigastric pain R10.13 and Right upper quadrant pain R10.11 [facility] [id number] [place] [address] Aug, Closed nondisplaced fracture of scaphoid of left wrist, unspecified portion of scaphoid, initial encounter S62.002A [facility] [id number] [place] [address] Aug, [facility] [id number] [place] [address] Aug, [facility] [address] [address] Aug, Shortness of breath R06.02 ; Epigastric pain R10.13 and Injury of left lower arm, initial encounter S59.912A [facility] [address] [address] 07 Aug, 2015 Coronary artery disease involving [place] heart with angina pectoris, unspecified vessel or lesion type I25.119 ; Pulmonary emphysema, unspecified emphysema type J43.9 and Snoring R06.83 [facility] [address] [address] Aug, [facility] [id number] [place] [address] Aug, Emphysema, unspecified J43.9 ; Atherosclerotic heart disease of [place] coronary artery without angina pectoris I25.10 and Hypertension I10 [facility] [id number] [place] [address] July, [facility] [id number] [place] [address] July, Closed nondisplaced fracture of scaphoid of left wrist, unspecified portion of scaphoid, initial encounter S62.002A [facility] [address] [address] July, [facility] [id number] [place] [address] July, Type 2 diabetes mellitus with diabetic neuropathy, unspecified E11.40 ; Emphysema, unspecified J43.9 ; Atherosclerotic heart disease of [place] coronary artery without angina pectoris I25.10 ; [...] agents L24.89 and Hospital discharge follow-up Z09 [facility] [id number] [address] July, [facility] [id number] [place] [address] July, Type 2 diabetes mellitus with diabetic neuropathy, unspecified E11.40 [facility] [id number] [place] [address] July, Type 2 diabetes mellitus with diabetic neuropathy, unspecified E11.40 and Rheumatoid arthritis of left wrist without organ or system involvement with positive rheumatoid factor M05.732 [facility] [id number] [place] [address] July, [facility] [id number] [place] [address] July, [facility] [id number] [place] [address] Jun, [facility] [id number] [place] [address] Jun, [facility] [id number] [place] [address] Jun, 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 [facility] [id number] [place] [address] Jun, [facility] [id number] [place] [address] Jun, 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 [facility] [id number] [place] [address] Jun, [facility] [id number] [place] [address] Jun, [facility] [id number] [place] [address] Jun, Encounter for PPD test Z11.1 ; Rheumatoid arthritis with rheumatoid factor of right wrist without organ or systems involvement M05.731 and Rheumatoid arthritis of left wrist without organ or system involvement with positive rheumatoid factor M05.732 [facility] [id number] [place] [address] Jun, Type 2 diabetes mellitus with diabetic neuropathy, unspecified E11.40 [facility] [id number] [place] [address] May, Type 2 diabetes mellitus with diabetic neuropathy, unspecified E11.40 ; Emphysema, unspecified J43.9 ; Rheumatoid arthritis with rheumatoid factor of right wrist without organ or systems involvement M05.731 ; Rheumatoid arthritis of left wrist without organ or system involvement with positive rheumatoid factor M05.732 and Chronic pain G89.29 [facility] [id number] [place] [address] May, [facility] [address] [address] May, Swelling of hand joint M25.449 ; Ankle swelling M25.473 and Joint pain M25.50 [facility] [id number] [place] [address] May, Emphysema, unspecified J43.9 [facility] [id number] [place] [address] May, Gastroenteritis K52.9 and Hypertension I10 [facility] [id number] [place] [address] Apr, [facility] [id number] [place] [address] Apr, [facility] [id number] [place] [address] Apr, [facility] [id number] [place] [address] Apr, Type 2 diabetes mellitus with diabetic neuropathy, unspecified E11.40 ; Emphysema, unspecified J43.9 ; Atherosclerotic heart disease of [place] coronary artery without angina pectoris I25.10 ; Migraine without aura, not intractable, with status migrainosus G43.001 ; Gastro-esophageal reflux disease without esophagitis K21.9 ; CAD (coronary artery disease) I25.10 ; Hypertension I10 ; Hyperlipemia E78.5 ; Allergic rhinitis J30.9 ; Neuropathy G62.9 ; Anxiety associated with depression F41.8 and Injury of left hand S69.92XA [address] [address] Apr, [address] [address] Apr, [address] [address] Apr, Type 2 diabetes mellitus with diabetic neuropathy, unspecified E11.40 ; Emphysema, unspecified J43.9 ; Essential (primary) hypertension I10 ; Atherosclerotic heart disease of [place] coronary artery without angina pectoris I25.10 ; Gastro-esophageal reflux disease without esophagitis K21.9 ; CAD (coronary artery disease) I25.10 ; Hyperlipemia E78.5 ; Hypertension I10 ; History of solitary pulmonary nodule Z87.898 ; Allergic rhinitis J30.9 ; Chronic pain G89.29 and Depression with anxiety F41.[address] [address] Mar, [address] [address] Mar, Allergic rhinitis J30.9 ; URI (upper respiratory infection) J06.9 and Other viral agents as the cause of diseases classified elsewhere B97.89 [facility] [address] [place] [address] Feb, Acute nasopharyngitis [common cold] J00 and Acute diarrhea R19.[address] [address] Feb, Depression F32.9 [facility] [id number] [place] [address] Jan, Otitis media, right H66.91 [facility] [address] [address] Jan, [facility] [address] [address] Jan, Type 2 diabetes mellitus with diabetic neuropathy, unspecified E11.40 [place] [address] [address] Jan, [facility] [address] [address] Jan, Hyperlipemia E78.5 [facility] [address] [address] Jan, Type 2 diabetes mellitus with diabetic neuropathy, unspecified E11.40 ; Emphysema, unspecified J43.9 ; CAD (coronary artery disease) I25.10 and Hyperlipemia E78.5 [facility] [id number] [place] [address] Dec, Allergic rhinitis J30.9 and Fungal infection B49 [facility] [id number] [place] [address] Dec, [facility] [address] [address] Dec, [facility] [place] [id number] [place] [address] Dec, Chest pain R07.9 ; CAD (coronary artery disease) I25.10 ; Hypertension I10 and Hyperlipemia E78.5 [facility] [id number] [place] [address] 08 Dec, 2014 Pain in thoracic spine M54.6 ; Gastro-esophageal reflux disease without esophagitis K21.9 ; Emphysema, unspecified J43.9 and Migraine without aura, not intractable, with status migrainosus G43.001 [facility] [place] [address] [address] Dec, [facility] [id number] [place] [address] Nov, Influenza vaccine administered V04.81 [place] [id number] [place] [address] Nov, [facility] [id number] [place] [address] Sep, [facility] [id number] [place] [address] Sep, [facility] [place] [id number] [place] [address] Sep, CAD (coronary artery disease) 414.00 and Diabetes type 2, uncontrolled 250.02 [facility] [id number] [place] [address] Sep, CAD (coronary artery disease) 414.00 ; Diabetes type 2, uncontrolled 250.02 and Migraine 346.90 IMMUNIZATIONS No Known Immunizations SOCIAL HISTORY Never Assessed REASON FOR VISIT Controlled refill PLAN OF CARE VITAL SIGNS MEDICATIONS [...] unspecified Medical History Atherosclerotic heart disease of [place] coronary artery without angina pectoris Medical History [...]
--- OUTSIDE RECORDS SUMMARY | 2018-08-23 17:41 | XMS REPORT ---
Author Author SANJIV CHICAS [facility] Address [address] [place] [address] Care Team Providers Care Tapeman Name Role Phone SANJIV CHICAS Unavailable PROBLEMS Type Condition ICD9-CM Code AQE74-EC Code Onset Dates Condition Status SNOMED Code Problem Other hammer toe(s) (acquired), left foot M20.42 Active 33871228 Problem Tobacco abuse Z72.0 Active 952833914 Problem Other hammer toe(s) (acquired), right foot M20.41 Active 428578603 Problem Acute rheumatoid arthritis M06.9 Active 83122415 Problem Emphysema, unspecified J43.9 Active 26539870 Problem Intractable migraine without status migrainosus, unspecified migraine type G43.919 Active 094955420 Problem Gastro-esophageal reflux disease without esophagitis K21.9 Active 603478105 Problem Hypertension I10 Active 11337558 Problem Atherosclerotic heart disease of [place] coronary artery without angina pectoris I25.10 Active 424049086065534 Problem Hammer toe of left foot M20.42 Active 267890257 Problem Elevated white blood cell count, unspecified D72.829 Active 697233921 Problem Other chronic pain G89.29 Active 35335151 Problem Anxiety associated with depression F41.8 Active 686078955 Problem Chronic pain G89.29 Active 27276050 Problem Type 2 diabetes mellitus with diabetic neuropathy, unspecified E11.40 Active 83942661 Problem Allergic rhinitis J30.9 Active 58911823 Problem Primary insomnia F51.01 Active 2969437 Problem Periodontitis K05.30 Active 95251596 Problem Vitamin D deficiency E55.9 Active 04375086 Problem OAB (overactive bladder) N32.81 Active 648276407 Problem Dependence on nocturnal oxygen therapy Z99.81 Active 38081834853463 Problem Hyperlipemia E78.5 Active 83801664 Problem Rheumatoid arthritis involving multiple sites with positive rheumatoid factor M05.79 Active 969000447 Problem Neuropathy G62.9 Active 209659082 ALLERGIES No Information ENCOUNTERS Encounter Location Date Diagnosis [place] [id number] [place] [address] Jan, [place] [id number] [place] [address] Jan, Emphysema, unspecified J43.9 and Neuropathy G62.9 [place] [id number] [place] [address] Jan, Chronic pain G89.29 [place] [id number] [place] [address] Dec, [place] [id number] [place] [address] Dec, Rheumatoid arthritis involving multiple sites with positive rheumatoid factor M05.79 [place] [id number] [place] [address] Dec, Rheumatoid arthritis involving multiple sites with positive rheumatoid factor M05.79 [place] [id number] [place] [address] Dec, Rheumatoid arthritis involving multiple sites with positive rheumatoid factor M05.79 and Need for hepatitis C screening test Z11.59 [place] [id number] [place] [address] Dec, Acute rheumatoid arthritis M06.9 [place] [id number] [place] [address] Dec, [place] [id number] [place] [address] Dec, Type 2 diabetes mellitus with diabetic neuropathy, unspecified E11.40 and Neuropathy G62.9 [facility] [id number] [place] [address] Dec, Chronic pain G89.29 [place] [id number] [place] [address] Nov, Type 2 diabetes mellitus with diabetic neuropathy, unspecified E11.40 ; Neuropathy G62.9 ; Hypertension I10 ; Dependence on nocturnal oxygen therapy Z99.81 ; Emphysema, unspecified J43.9 and Encounter for immunization Z23 [facility] [id number] [place] [address] 07 Nov, 2017 Chronic pain G89.29 [place] [address] [address] Nov, Chronic pain G89.29 [facility] [id number] [place] [address] Oct, Dysuria R30.0 ; Intractable migraine without status migrainosus, unspecified migraine type G43.919 and Back pain at L4-L5 level M54.5 [place] [id number] [place] [address] Oct, Orthostatic hypotension I95.1 [place] [id number] [place] [address] Oct, Localized swelling of both lower legs R22.43 ; Onychomycosis B35.1 and Type 2 diabetes mellitus with diabetic neuropathy, unspecified E11.40 [place] [id number] [place] [address] Oct, [place] [id number] [place] [address] Oct, Elevated white blood cell count, unspecified D72.829 [place] [id number] [place] [address] Oct, Elevated white blood cell count, unspecified D72.829 [place] [id number] [place] [address] Oct, Chronic pain G89.29 [place] [id number] [place] [address] Oct, [place] [id number] [place] [address] Oct, [facility] [id number] [place] [address] Oct, Orthostatic hypotension I95.1 ; Dizziness R42 and Neuropathy G62.9 [facility] [id number] [place] [address] Oct, Dizziness R42 ; Low back pain M54.5 ; Other chronic pain G89.29 ; Nausea R11.0 and Orthostatic hypotension I95.1 [place] [address] [address] Sep, Rheumatoid arthritis involving multiple sites with positive rheumatoid factor M05.79 and Tobacco abuse Z72.0 [place] [address] [address] Sep, Chronic pain G89.29 [place] [address] [address] Aug, Type 2 diabetes mellitus with diabetic neuropathy, unspecified E11.40 ; Hypertension I10 ; Hyperlipemia E78.5 ; Gastro-esophageal reflux disease without esophagitis K21.9 ; Emphysema, unspecified J43.9 ; Anxiety associated with depression F41.8 ; Vitamin D deficiency E55.9 ; Chronic pain G89.29 ; Tobacco abuse Z72.0 ; Overweight (BMI 25.0-29.9) E66.3 ; Atherosclerotic heart disease of [place] coronary artery without angina pectoris I25.10 ; OAB (overactive bladder) N32.81 and Primary insomnia F51.01 [place] [id number] [place] [address] July, [place] [id number] [place] [address] July, [place] [id number] [place] [address] July, Chronic pain G89.29 [place] [id number] [address] July, [facility] [id number] [place] [address] July, Onychomycosis B35.1 ; Hammer toe of left foot M20.42 and Type 2 diabetes mellitus with diabetic neuropathy, unspecified E11.40 [facility] [id number] [place] [address] July, [facility] [id number] [place] [address] July, Chronic pain G89.29 and Neuropathy G62.9 [facility] [id number] [place] [address] July, [facility] [id number] [place] [address] July, [facility] [id number] [place] [address] Jun, [facility] [id number] [place] [address] Jun, Chronic pain G89.29 [facility] [id number] [place] [address] Jun, [facility] [id number] [place] [address] Jun, [facility] [id number] [place] [address] Jun, Visit for TB skin test Z11.1 [facility] [id number] [place] [address] 16 Jun, 2017 [facility] [id number] [place] [address] Jun, [facility] [id number] [place] [address] Jun, Tobacco abuse Z72.0 and Rheumatoid arthritis involving multiple sites with positive rheumatoid factor M05.79 [place] [address] [address] Jun, Anxiety F41.9 ; Acute non-recurrent maxillary sinusitis J01.00 and Chronic pain G89.29 [place] [address] [address] Jun, [place] [address] [address] May, Rheumatoid arthritis involving multiple sites with positive rheumatoid factor M05.79 [place] [address] [address] May, Chronic pain G89.29 [place] [address] [address] May, [place] [address] [address] May, [place] [address] [address] May, [place] [address] [address] May, Type 2 diabetes mellitus with diabetic neuropathy, unspecified E11.40 [place] [address] [address] May, Type 2 diabetes mellitus with diabetic neuropathy, unspecified E11.40 ; Emphysema, unspecified J43.9 ; Hypertension I10 ; Hyperlipemia E78.5 ; Vitamin D deficiency E55.9 ; Right medial knee pain M25.561 ; Controlled substance agreement signed Z79.899 ; Chronic pain G89.29 ; Allergic rhinitis J30.9 ; Anxiety associated with depression F41.8 ; Neuropathy G62.9 and Gastro- esophageal reflux disease without esophagitis K21.[address] [address] Apr, Chronic pain G89.29 [facility] [id number] [place] [address] 16 Apr, 2017 Other hammer toe(s) (acquired), left foot M20.42 ; Other hammer toe(s) (acquired), right foot M20.41 ; Type 2 diabetes mellitus with diabetic neuropathy, unspecified E11.40 and Onychomycosis B35.1 [place] [address] [address] 2017 Gastro-esophageal reflux disease without esophagitis K21.[address] [address] Apr, Controlled substance agreement signed Z79.899 [place] [address] [address] Mar, Chronic pain G89.29 [place] [address] [address] Mar, Emphysema, unspecified J43.9 and Type 2 diabetes mellitus with diabetic neuropathy, unspecified E11.40 [facility] [id number] [place] [address] Mar, Dysuria R30.0 ; Vaginal candidiasis B37.3 and Acute nonintractable headache, unspecified headache type R51 [place] [id number] [place] [address] Feb, Neuropathy G62.9 and Chronic pain G89.29 [place] [id number] [place] [address] Feb, Gastro-esophageal reflux disease without esophagitis K21.9 [place] [id number] [place] [address] Feb, [facility] [id number] [place] [address] Feb, Rheumatoid arthritis involving multiple sites with positive rheumatoid factor M05.79 and COPD with acute exacerbation J44.1 [facility] [id number] [place] [address] Feb, Vaginal odor N89.8 ; Vaginal irritation N89.8 ; Candidal dermatitis B37.2 and Screening breast examination Z12.31 [facility] [id number] [place] [address] Feb, [facility] [address] [address] Feb, [place] [id number] [place] [address] Feb, [place] [address] [address] Feb, COPD with exacerbation J44.1 ; Tobacco abuse counseling Z71.6 ; Tobacco abuse Z72.0 ; Rheumatoid arthritis involving multiple sites with positive rheumatoid factor M05.79 and Hyperlipemia E78.5 [facility] [id number] [place] [address] Feb, [facility] [address] [id number] Jan, [facility] [id number] [place] [address] Jan, Chronic pain G89.29 [facility] [address] [id number] [place] [id number] Jan, Dental examination Z01.20 [facility] [id number] [place] [address] 19 Jan, 2017 Back pain of lumbar region with sciatica M54.40 [facility] [id number] [place] [address] 15 Jan, 2017 Acute bacterial conjunctivitis of both eyes H10.33 [facility] [id number] [place] [address] Jan, Chronic pain G89.29 [place] [id number] [place] [address] Dec, Type 2 diabetes mellitus with diabetic neuropathy, unspecified E11.40 ; Hypertension I10 ; Hyperlipemia E78.5 ; Gastro-esophageal reflux disease without esophagitis K21.9 ; Anxiety associated with depression F41.8 ; Allergic rhinitis J30.9 ; Neuropathy G62.9 and Dependence on nocturnal oxygen therapy Z99.81 [place] [address] [address] Dec, [place] [address] [address] Dec, [place] [address] [address] Dec, Encounter for immunization Z23 [place] [address] [address] 05 Dec, 2016 Type 2 diabetes mellitus with diabetic neuropathy, unspecified E11.40 and Chronic pain G89.29 [place] [id number] [place] [address] 11 Nov, 2016 Gastro-esophageal reflux disease without esophagitis K21.9 [place] [id number] [place] [address] 11 Nov, 2016 Peripheral edema R60.9 and Chest pain in adult R07.9 [place] [id number] [place] [address] 07 Nov, 2016 Chronic pain G89.29 [place] [id number] [place] [address] Oct, [place] [id number] [place] [address] Oct, [place] [id number] [place] [address] Oct, Rheumatoid arthritis with rheumatoid factor of right wrist without organ or systems involvement M05.731 [facility] [id number] [place] [address] 15 Oct, 2016 [facility] [address] [address] Oct, Acute exacerbation of chronic obstructive pulmonary disease (COPD) J44.1 and Canker sore K12.0 [facility] [address] [address] Oct, [facility] [address] [address] Oct, [place] [address] [address] Oct, Chronic pain G89.29 [facility] [address] [id number] Oct, Dental examination Z01.20 [facility] [id number] [place] [address] Oct, Dental examination Z01.20 and Periodontitis K05.30 [facility] [address] [id number] Oct, Dental examination Z01.20 [facility] [id number] [place] [address] Sep, Abscess L02.91 [place] [id number] [place] [address] Sep, Dental examination Z01.20 [facility] [id number] [place] [address] Sep, [facility] [address] [id number] Sep, Dental examination Z01.20 and Dental caries K02.9 [place] [address] [address] Sep, Primary insomnia F51.01 and Anxiety associated with depression F41.8 [place] [address] [place] [address] 14 Sep, 2016 Rheumatoid arthritis with rheumatoid factor of right wrist without organ or systems involvement M05.731 [place] [address] [place] [address] 14 Sep, 2016 Chronic pain G89.29 [place] [id number] [place] [address] 14 Sep, 2016 Type 2 diabetes mellitus with diabetic neuropathy, unspecified E11.40 ; Emphysema, unspecified J43.9 ; Gastro-esophageal reflux disease without esophagitis K21.9 ; Hypertension I10 ; Hyperlipemia E78.5 ; Anxiety associated with depression F41.8 ; Chronic pain G89.29 ; Vitamin D deficiency E55.9 and Primary insomnia F51.01 [place] [id number] [place] [address] 16 Aug, 2016 Anxiety associated with depression F41.8 [place] [id number] [place] [address] 13 Aug, 2016 Chronic pain G89.29 and Neuropathy G62.9 [place] [id number] [place] [address] 13 Aug, 2016 Type 2 diabetes mellitus with diabetic neuropathy, unspecified E11.40 ; Rheumatoid arthritis involving multiple sites with positive rheumatoid factor M05.79 ; Vitamin D deficiency E55.9 ; Anxiety associated with depression F41.8 and Primary insomnia F51.01 [place] [address] [place] [address] July, Emphysema, unspecified J43.9 [place] [id number] [place] [address] July, Allergic rhinitis J30.9 [place] [address] [place] [address] July, Allergic rhinitis J30.9 ; Emphysema, unspecified J43.9 and Rheumatoid arthritis with rheumatoid factor of right wrist without organ or systems involvement M05.731 [place] [id number] [place] [address] July, Neuropathy G62.9 and Chronic pain G89.29 [place] [id number] [place] [address] July, Rheumatoid arthritis involving multiple sites with positive rheumatoid factor M05.79 [place] [address] [address] Jun, [place] [address] [address] Jun, Neuropathy G62.9 and Chronic pain G89.29 [place] [address] [address] May, Neuropathy G62.9 and Chronic pain G89.29 [place] [address] [address] May, [place] [id number] [place] [address] May, [place] [id number] [place] [address] May, Type 2 diabetes mellitus with diabetic [...] with positive rheumatoid factor M05.732 [place] [id number] [place] [address] 14 Apr, 2016 Chronic pain G89.29 [facility] [address] [address] Mar, Gastro-esophageal reflux disease without esophagitis K21.9 [facility] [id number] [place] [address] Mar, [facility] [id number] [place] [address] Mar, Rheumatoid arthritis with rheumatoid factor of right wrist without organ or systems involvement M05.731 [place] [id number] [place] [address] Mar, Chronic pain G89.29 [place] [id number] [place] [address] Feb, Hyperlipemia E78.5 [place] [id number] [place] [address] Feb, Abnormal breath sounds R06.89 ; COPD with exacerbation J44.1 and Fatigue, unspecified type R53.83 [facility] [id number] [place] [address] Feb, Neuropathy G62.9 ; Abnormal lung sounds R09.89 and Bronchitis J40 [facility] [address] [place] [address] Feb, Bronchitis J40 [facility] [id number] [place] [address] Feb, Chronic pain G89.29 [facility] [address] [place] [address] Jan, Type 2 diabetes mellitus with diabetic neuropathy, unspecified E11.40 ; Rheumatoid arthritis with rheumatoid factor of right wrist without organ or systems involvement M05.731 and Hyperlipemia E78.5 [place] [address] [place] [address] Jan, Rheumatoid arthritis with rheumatoid factor of right wrist without organ or systems involvement M05.731 [place] [id number] [place] [address] Jan, De Quervain's disease (radial styloid tenosynovitis) M65.4 ; Closed nondisplaced fracture of scaphoid of left wrist, unspecified portion of scaphoid, initial encounter S62.002A and Peripheral tear of medial meniscus of left knee, unspecified whether old or current tear, initial encounter S83.222A [place] [address] [address] Jan, Hypertension I10 ; Type 2 diabetes mellitus with diabetic neuropathy, unspecified E11.40 ; Hyperlipemia E78.5 ; Allergic rhinitis J30.9 ; Neuropathy G62.9 ; Rheumatoid arthritis with rheumatoid factor of right wrist without organ or systems involvement M05.731 ; Acute non-recurrent maxillary sinusitis J01.00 and Chronic pain G89.29 [place] [address] [address] Dec, [place] [address] [address] Dec, [place] [id number] [place] [address] Dec, Type 2 diabetes mellitus with diabetic neuropathy, unspecified E11.40 ; Emphysema, unspecified J43.9 ; Gastro-esophageal reflux disease without esophagitis K21.9 ; Hypertension I10 ; Hyperlipemia E78.5 ; Rheumatoid arthritis with rheumatoid factor of right wrist without organ or systems involvement M05.731 ; Elevated white blood cell count, unspecified D72.829 ; Acute non- recurrent frontal sinusitis J01.10 and Chronic pain G89.29 [place] [address] [address] Nov, [place] [address] [address] Nov, Elevated white blood cell count, unspecified D72.829 ; Encounter for immunization Z23 ; Rheumatoid arthritis with rheumatoid factor of right wrist without organ or systems involvement M05.731 ; Injury of left hand S69.92XA ; Pain in left knee M25.562 and Other chronic pain G89.29 [place] [id number] [place] [address] Nov, [place] [id number] [place] [address] Nov, [place] [id number] [place] [address] Oct, [place] [id number] [place] [address] Oct, Hyperlipemia E78.5 [place] [id number] [place] [address] Oct, [place] [id number] [place] [address] Oct, Type 2 diabetes mellitus with diabetic neuropathy, unspecified E11.40 ; Neuropathy G62.9 ; Hypertension I10 ; Chronic pain G89.29 and Hyperlipemia E78.5 [place] [id number] [place] [address] Oct, Emphysema, unspecified J43.9 and Rheumatoid arthritis of left wrist without organ or system involvement with positive rheumatoid factor M05.732 [place] [id number] [place] [address] Sep, Chronic pain syndrome G89.4 [place] [id number] [place] [id number] Sep, [place] [address] [place] [id number] [place] [id number] Sep, [place] [id number] [place] [id number] Sep, Closed nondisplaced fracture of scaphoid of left wrist, unspecified portion of scaphoid, initial encounter S62.002A [facility] [id number], [place] [address] Sep, Type 2 diabetes mellitus with diabetic neuropathy, unspecified E11.40 ; Hypertension I10 ; Hyperlipemia E78.5 and Acute non-recurrent maxillary sinusitis J01.00 [facility] [id number], [place] [address] Sep, [facility] [address] [place] [id number] [place] [id number] Sep, [facility] [address] [place] [id number] [place] [id number] Sep, [place] [id number] [place] [address] Sep, [place] [id number] [place] [address] Aug, Epigastric pain R10.13 and Right upper quadrant pain R10.11 [place] [id number] [place] [address] Aug, Closed nondisplaced fracture of scaphoid of left wrist, unspecified portion of scaphoid, initial encounter S62.002A [place] [address], [place] [address] Aug, [facility] [id number] [place] [address] Aug, [facility] [address], [place] [address] Aug, Shortness of breath R06.02 ; Epigastric pain R10.13 and Injury of left lower arm, initial encounter S59.912A [place] [address], [place] [address] Aug, Coronary artery disease involving [place] heart with angina pectoris, unspecified vessel or lesion type I25.119 ; Pulmonary emphysema, unspecified emphysema type J43.9 and Snoring R06.83 [place] [address], [place] [address] Aug, [place] [id number] [place] [address] Aug, Emphysema, unspecified J43.9 ; Atherosclerotic heart disease of [place] coronary artery without angina pectoris I25.10 and Hypertension I10 [place] [id number] [place] [address] July, [place] [id number] [place] [address] July, Closed nondisplaced fracture of scaphoid of left wrist, unspecified portion of scaphoid, initial encounter S62.002A [place] [id number] [place] [address] July, [place] [id number] [place] [address] July, Type 2 diabetes mellitus with diabetic neuropathy, unspecified E11.40 ; Emphysema, unspecified J43.9 ; Atherosclerotic heart disease of [place] coronary artery without angina pectoris I25.10 ; [...] and Hospital discharge follow-up Z09 [place] [address], [place] [address] July, [place] [id number] [place] [address] July, Type 2 diabetes mellitus with diabetic neuropathy, unspecified E11.40 [place] [id number] [place] [address] July, Type 2 diabetes mellitus with diabetic neuropathy, unspecified E11.40 and Rheumatoid arthritis of left wrist without organ or system involvement with positive rheumatoid factor M05.732 [facility] [id number] [place] [address] July, [facility] [id number] [place] [address] July, [facility] [id number] [place] [address] Jun, [facility] [id number] [place] [address] Jun, [facility] [id number] [place] [address] Jun, 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 [facility] [id number] [place] [address] Jun, [facility] [id number] [place] [address] Jun, 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 [facility] [id number] [place] [address] Jun, [facility] [id number] [place] [address] Jun, [facility] [address] [place] [address] Jun, Encounter for PPD test Z11.1 ; Rheumatoid arthritis with rheumatoid factor of right wrist without organ or systems involvement M05.731 and Rheumatoid arthritis of left wrist without organ or system involvement with positive rheumatoid factor M05.732 [facility] [id number] [place] [address] Jun, Type 2 diabetes mellitus with diabetic neuropathy, unspecified E11.40 [facility] [address], [place] [address] May, Type 2 diabetes mellitus with diabetic neuropathy, unspecified E11.40 ; Emphysema, unspecified J43.9 ; Rheumatoid arthritis with rheumatoid factor of right wrist without organ or systems involvement M05.731 ; Rheumatoid arthritis of left wrist without organ or system involvement with positive rheumatoid factor M05.732 and Chronic pain G89.29 [place] [address] [address] May, [place] [address] [address] May, Swelling of hand joint M25.449 ; Ankle swelling M25.473 and Joint pain M25.[address] [address] May, Emphysema, unspecified J43.[address] [address] May, Gastroenteritis K52.9 and Hypertension I10 [address] [address] Apr, [address] [address] Apr, [address] [address] Apr, [address] [address] Apr, Type 2 diabetes mellitus with diabetic neuropathy, unspecified E11.40 ; Emphysema, unspecified J43.9 ; Atherosclerotic heart disease of [place] coronary artery without angina pectoris I25.10 ; Migraine without aura, not intractable, with status migrainosus G43.001 ; Gastro-esophageal reflux disease without esophagitis K21.9 ; CAD (coronary artery disease) I25.10 ; Hypertension I10 ; Hyperlipemia E78.5 ; Allergic rhinitis J30.9 ; Neuropathy G62.9 ; Anxiety associated with depression F41.8 and Injury of left hand S69.92XA [address] [address] Apr, [place] [id number] [place] [address] Apr, [place] [id number] [place] [address] 04 Apr, 2015 Type 2 diabetes mellitus with diabetic neuropathy, unspecified E11.40 ; Emphysema, unspecified J43.9 ; Essential (primary) hypertension I10 ; Atherosclerotic heart disease of [place] coronary artery without angina pectoris I25.10 ; Gastro-esophageal reflux disease without esophagitis K21.9 ; CAD (coronary artery disease) I25.10 ; Hyperlipemia E78.5 ; Hypertension I10 ; History of solitary pulmonary nodule Z87.898 ; Allergic rhinitis J30.9 ; Chronic pain G89.29 and Depression with anxiety F41.[address] [address] Mar, [address] [address] Mar, Allergic rhinitis J30.9 ; URI (upper respiratory infection) J06.9 and Other viral agents as the cause of diseases classified elsewhere B97.89 [place] [id number] [place] [address] Feb, Acute nasopharyngitis [common cold] J00 and Acute diarrhea R19.7 [place] [id number] [place] [address] Feb, Depression F32.[address] [address] Jan, Otitis media, right H66.[address] [address] Jan, [address] [address] Jan, Type 2 diabetes mellitus with diabetic neuropathy, unspecified E11.[address], [place] [address] Jan, [facility] [id number] [place] [address] Jan, Hyperlipemia E78.5 [place] [id number] [place] [address] Jan, Type 2 diabetes mellitus with diabetic neuropathy, unspecified E11.40 ; Emphysema, unspecified J43.9 ; CAD (coronary artery disease) I25.10 and Hyperlipemia E78.5 [place] [id number] [place] [address] Dec, Allergic rhinitis J30.9 and Fungal infection B49 [place] [id number] [place] [address] Dec, [place] [address] [address] Dec, [place] [id number] [place] [address] Dec, Chest pain R07.9 ; CAD (coronary artery disease) I25.10 ; Hypertension I10 and Hyperlipemia E78.5 [place] [id number] [place] [address] Dec, Pain in thoracic spine M54.6 ; Gastro-esophageal reflux disease without esophagitis K21.9 ; Emphysema, unspecified J43.9 and Migraine without aura, not intractable, with status migrainosus G43.001 [place] [id number] [place] [address] Dec, [place] [id number] [place] [address] Nov, Influenza vaccine administered V04.81 [place] [id number] [place] [address] Nov, [place] [id number] [address] Sep, [facility] [address] [facility] [id number] [address] Sep, [facility] [address] [facility] [id number] [address] Sep, CAD (coronary artery disease) 414.00 and Diabetes type 2, uncontrolled 250.02 [place] [address] [facility] [id number] [address] Sep, CAD (coronary artery disease) 414.00 ; Diabetes type 2, uncontrolled 250.02 and Migraine 346.90 IMMUNIZATIONS No Known Immunizations SOCIAL HISTORY Never Assessed REASON FOR VISIT Controlled Med Refill PLAN OF CARE VITAL SIGNS MEDICATIONS Medication Instructions Dosage Frequency Start Date End Date Duration Status Qnasl 80 MCG/ACT Nasally Once a day 2 sprays in each nostril 24h Active HydrOXYzine HCl 25 MG Orally every 8 hrs 1 tablet as needed 8h 30 Active Atorvastatin Calcium 10 mg Orally Once a day 1 tablet 24h Active Lyrica 100 mg Orally Three times a day 1 capsule 8h Dec, Active Ventolin HFA 108 (90 base) mcg/act Inhalation every 6 hrs PRN 2 puffs as needed Active RESULTS No Results PROCEDURES No Known [...] unspecified Medical History Atherosclerotic heart disease of [place] coronary artery without angina pectoris Medical History [...]
--- OUTSIDE RECORDS SUMMARY | 2018-08-23 17:42 | XMS REPORT ---
Author Author JESSICA DALEY [facility] Address [address] [place] [address] Care Team Providers Care Process Owner Name Role Phone JESSICA DALEY Unavailable PROBLEMS Type Condition ICD9-CM Code [id number] Code Onset Dates Condition Status SNOMED Code Problem Other hammer toe(s) (acquired), left foot M20.42 Active 54571157 Problem Tobacco abuse Z72.0 Active 749409130 Problem Other hammer toe(s) (acquired), right foot M20.41 Active 786249190 Problem Acute rheumatoid arthritis M06.9 Active 64175600 Problem Emphysema, unspecified J43.9 Active 66231068 Problem Intractable migraine without status migrainosus, unspecified migraine type G43.919 Active 983002889 Problem Gastro-esophageal reflux disease without esophagitis K21.9 Active 958777731 Problem Hypertension I10 Active 60335258 Problem Atherosclerotic heart disease of [place] coronary artery without angina pectoris I25.10 Active 640610116259680 Problem Hammer toe of left foot M20.42 Active 483597285 Problem Elevated white blood cell count, unspecified D72.829 Active 699889113 Problem Other chronic pain G89.29 Active 41065946 Problem Anxiety associated with depression F41.8 Active 337919209 Problem Chronic pain G89.29 Active 75668308 Problem Type 2 diabetes mellitus with diabetic neuropathy, unspecified E11.40 Active 98598742 Problem Allergic rhinitis J30.9 Active 06523365 Problem Primary insomnia F51.01 Active 0029847 Problem Periodontitis K05.30 Active 40577160 Problem Vitamin D deficiency E55.9 Active 18382352 Problem OAB (overactive bladder) N32.81 Active 578188862 Problem Dependence on nocturnal oxygen therapy Z99.81 Active 65854724747314 Problem Hyperlipemia E78.5 Active 37645971 Problem Rheumatoid arthritis involving multiple sites with positive rheumatoid factor M05.79 Active 791381200 Problem Neuropathy G62.9 Active 760681733 ALLERGIES No Information ENCOUNTERS Encounter Location Date Diagnosis [facility] [id number] [place] [address] Jan, [facility] [id number] [place] [address] Jan, Emphysema, unspecified J43.9 and Neuropathy G62.9 [facility] [facility] [address] [address] Jan, Chronic pain G89.29 [facility] [facility] [id number] [place] [address] Dec, [facility] [address] [address] Dec, Rheumatoid arthritis involving multiple sites with positive rheumatoid factor M05.79 [facility] [address] [address] Dec, Rheumatoid arthritis involving multiple sites with positive rheumatoid factor M05.79 [facility] [address] [address] Dec, Rheumatoid arthritis involving multiple sites with positive rheumatoid factor M05.79 and Need for hepatitis C screening test Z11.59 [facility] [facility] [id number] [place] [address] Dec, Acute rheumatoid arthritis M06.9 [facility] [id number] [place] [address] Dec, [facility] [id number] [place] [address] Dec, Type 2 diabetes mellitus with diabetic neuropathy, unspecified E11.40 and Neuropathy G62.9 [facility] [id number] [place] [address] Dec, Chronic pain G89.29 [facility] [id number] [place] [address] Nov, Type 2 diabetes mellitus with diabetic neuropathy, unspecified E11.40 ; Neuropathy G62.9 ; Hypertension I10 ; Dependence on nocturnal oxygen therapy Z99.81 ; Emphysema, unspecified J43.9 and Encounter for immunization Z23 [facility] [id number] [place] [address] Nov, Chronic pain G89.29 [facility] [id number] [place] [address] Nov, Chronic pain G89.29 [facility] [id number] [place] [address] Oct, Dysuria R30.0 ; Intractable migraine without status migrainosus, unspecified migraine type G43.919 and Back pain at L4-L5 level M54.5 [facility] [id number] [place] [address] Oct, Orthostatic hypotension I95.1 [facility] [id number] [place] [address] Oct, Localized swelling of both lower legs R22.43 ; Onychomycosis B35.1 and Type 2 diabetes mellitus with diabetic neuropathy, unspecified E11.40 [facility] [place] [id number] [place] [address] Oct, [facility] [place] [id number] [place] [address] Oct, Elevated white blood cell count, unspecified D72.829 [facility] [place] [id number] [place] [address] Oct, Elevated white blood cell count, unspecified D72.829 [facility] [id number] [place] [address] Oct, Chronic pain G89.29 [facility] [id number] [place] [address] Oct, [facility] [id number] [address] Oct, [facility] [id number] [place] [address] Oct, Orthostatic hypotension I95.1 ; Dizziness R42 and Neuropathy G62.9 [facility] [address] [place] [address] Oct, Dizziness R42 ; Low back pain M54.5 ; Other chronic pain G89.29 ; Nausea R11.0 and Orthostatic hypotension I95.1 [facility] [id number] [place] [address] Sep, Rheumatoid arthritis involving multiple sites with positive rheumatoid factor M05.79 and Tobacco abuse Z72.0 [facility] [id number] [place] [address] Sep, Chronic pain G89.29 [place] [id number] [place] [address] Aug, Type 2 diabetes mellitus with diabetic neuropathy, unspecified E11.40 ; Hypertension I10 ; Hyperlipemia E78.5 ; Gastro-esophageal reflux disease without esophagitis K21.9 ; Emphysema, unspecified J43.9 ; Anxiety associated with depression F41.8 ; Vitamin D deficiency E55.9 ; Chronic pain G89.29 ; Tobacco abuse Z72.0 ; Overweight (BMI 25.0-29.9) E66.3 ; Atherosclerotic heart disease of [place] coronary artery without angina pectoris I25.10 ; OAB (overactive bladder) N32.81 and Primary insomnia F51.01 [facility] [address] [address] July, [place] [id number] [place] [address] July, [facility] [address] [place] [address] July, Chronic pain G89.29 [facility] [id number] [address] July, [facility] [id number] [place] [address] July, Onychomycosis B35.1 ; Hammer toe of left foot M20.42 and Type 2 diabetes mellitus with diabetic neuropathy, unspecified E11.40 [facility] [id number] [place] [address] July, [facility] [id number] [place] [address] July, Chronic pain G89.[address] [facility] [id number] [place] [address] July, [facility] [id number] [place] [address] July, [facility] [id number] [place] [address] Jun, [facility] [id number] [place] [address] Jun, Chronic pain G89.29 [facility] [id number] [place] [address] Jun, [facility] [id number] [place] [address] Jun, [facility] [id number] [place] [address] Jun, Visit for TB skin test Z11.1 [place] [id number] [place] [address] Jun, [facility] [id number] [place] [address] Jun, [facility] [id number] [place] [address] Jun, Tobacco abuse Z72.0 and Rheumatoid arthritis involving multiple sites with positive rheumatoid factor M05.79 [place] [id number] [place] [address] Jun, Anxiety F41.9 ; Acute non-recurrent maxillary sinusitis J01.00 and Chronic pain G89.29 [facility] [id number] [place] [address] Jun, [place] [id number] [place] [address] May, Rheumatoid arthritis involving multiple sites with positive rheumatoid factor M05.79 [place] [address] [address] May, Chronic pain G89.29 [place] [id number] [place] [address] May, [place] [id number] [place] [address] May, [place] [id number] [place] [address] May, [place] [id number] [place] [address] May, Type 2 diabetes mellitus with diabetic neuropathy, unspecified E11.40 [place] [id number] [place] [address] May, Type 2 diabetes mellitus with diabetic [...] reflux disease without esophagitis K21.9 [place] [id number] [place] [address] Apr, Chronic pain G89.29 [facility] [id number] [place] [address] 16 Apr, 2017 Other hammer toe(s) (acquired), left foot M20.42 ; Other hammer toe(s) (acquired), right foot M20.41 ; Type 2 diabetes mellitus with diabetic neuropathy, unspecified E11.40 and Onychomycosis B35.1 [place] [address] [address] 2017 Gastro-esophageal reflux disease without esophagitis K21.[address] [address] 02 Apr, 2017 Controlled substance agreement signed Z79.[address] [address] Mar, Chronic pain G89.29 [place] [address] [address] Mar, Emphysema, unspecified J43.9 and Type 2 diabetes mellitus with diabetic neuropathy, unspecified E11.40 [facility] [id number] [place] [address] Mar, Dysuria R30.0 ; Vaginal candidiasis B37.3 and Acute nonintractable headache, unspecified headache type R51 [place] [id number] [place] [address] Feb, Neuropathy G62.9 and Chronic pain G89.29 [place] [id number] [place] [address] Feb, Gastro-esophageal reflux disease without esophagitis K21.9 [place] [address] [address] Feb, [facility] [address] [address] Feb, Rheumatoid arthritis involving multiple sites with positive rheumatoid factor M05.79 and COPD with acute exacerbation J44.1 [facility] [id number] [place] [address] Feb, Vaginal odor N89.8 ; Vaginal irritation N89.8 ; Candidal dermatitis B37.2 and Screening breast examination Z12.31 [facility] [address] [address] Feb, [facility] [address] [address] Feb, [facility] [address] [address] Feb, [place] [address] [address] Feb, COPD with exacerbation J44.1 ; Tobacco abuse counseling Z71.6 ; Tobacco abuse Z72.0 ; Rheumatoid arthritis involving multiple sites with positive rheumatoid factor M05.[address] [facility] [id number] [place] [address] Feb, [facility] [address] [id number] Jan, [facility] [address] [address] 30 Jan, 2017 Chronic pain G89.29 [facility] [address] [id number] Jan, Dental examination Z01.20 [facility] [id number] [place] [address] 19 Jan, 2017 Back pain of lumbar region with sciatica M54.40 [facility] [address] [address] 15 Jan, 2017 Acute bacterial conjunctivitis of both eyes H10.33 [facility] [id number] [place] [address] 02 Jan, 2017 Chronic pain G89.29 [place] [id number] [place] [address] Dec, Type 2 diabetes mellitus with diabetic neuropathy, unspecified E11.40 ; Hypertension I10 ; Hyperlipemia E78.5 ; Gastro-esophageal reflux disease without esophagitis K21.9 ; Anxiety associated with depression F41.8 ; Allergic rhinitis J30.9 ; Neuropathy G62.9 and Dependence on nocturnal oxygen therapy Z99.81 [place] [id number] [place] [address] Dec, [place] [id number] [place] [address] Dec, [place] [address] [address] Dec, Encounter for immunization Z23 [place] [address] [address] 05 Dec, 2016 Type 2 diabetes mellitus with diabetic neuropathy, unspecified E11.40 and Chronic pain G89.29 [place] [id number] [place] [address] 11 Nov, 2016 Gastro-esophageal reflux disease without esophagitis K21.9 [facility] [id number] [place] [address] 11 Nov, 2016 Peripheral edema R60.9 and Chest pain in adult R07.9 [facility] [id number] [place] [address] 07 Nov, 2016 Chronic pain G89.29 [place] [id number] [place] [address] Oct, [place] [address] [address] Oct, [place] [id number] [place] [address] Oct, Rheumatoid arthritis with rheumatoid factor of right wrist without organ or systems involvement M05.731 [facility] [id number] [place] [address] 15 Oct, 2016 [facility] [id number] [place] [address] Oct, Acute exacerbation of chronic obstructive pulmonary disease (COPD) J44.1 and Canker sore K12.0 [facility] [address] [address] Oct, [facility] [id number] [place] [address] Oct, [facility] [address] [address] Oct, Chronic pain G89.29 [facility] [address] [id number] Oct, Dental examination Z01.20 [facility] [address] [address] Oct, Dental examination Z01.20 and Periodontitis K05.30 [facility] [address] [id number] Oct, Dental examination Z01.20 [facility] [id number] [place] [address] Sep, Abscess L02.91 [facility] [address] [address] Sep, Dental examination Z01.20 [facility] [id number] [place] [address] Sep, [facility] [address] [id number] Sep, Dental examination Z01.20 and Dental caries K02.9 [facility] [id number] [place] [address] Sep, Primary insomnia F51.01 and Anxiety associated with depression F41.8 [place] [id number] [place] [address] 14 Sep, 2016 Rheumatoid arthritis with rheumatoid factor of right wrist without organ or systems involvement M05.731 [place] [id number] [place] [address] 14 Sep, 2016 Chronic pain G89.29 [place] [id number] [place] [address] 14 Sep, 2016 Type 2 diabetes mellitus with diabetic neuropathy, unspecified E11.40 ; Emphysema, unspecified J43.9 ; Gastro-esophageal reflux disease without esophagitis K21.9 ; Hypertension I10 ; Hyperlipemia E78.5 ; Anxiety associated with depression F41.8 ; Chronic pain G89.29 ; Vitamin D deficiency E55.9 and Primary insomnia F51.01 [place] [id number] [place] [address] 16 Aug, 2016 Anxiety associated with depression F41.8 [place] [id number] [place] [address] 13 Aug, 2016 Chronic pain G89.29 and Neuropathy G62.9 [place] [id number] [place] [address] 13 Aug, 2016 Type 2 diabetes mellitus with diabetic neuropathy, unspecified E11.40 ; Rheumatoid arthritis involving multiple sites with positive rheumatoid factor M05.79 ; Vitamin D deficiency E55.9 ; Anxiety associated with depression F41.8 and Primary insomnia F51.01 [place] [address] [place] [address] July, Emphysema, unspecified J43.9 [place] [id number] [place] [address] July, Allergic rhinitis J30.9 [place] [id number] [place] [address] July, Allergic rhinitis J30.9 ; Emphysema, unspecified J43.9 and Rheumatoid arthritis with rheumatoid factor of right wrist without organ or systems involvement M05.731 [place] [address] [place] [address] July, Neuropathy G62.9 and Chronic pain G89.29 [place] [id number] [place] [address] July, Rheumatoid arthritis involving multiple sites with positive rheumatoid factor M05.79 [place] [id number] [place] [address] Jun, [place] [id number] [place] [address] Jun, Neuropathy G62.9 and Chronic pain G89.29 [place] [id number] [place] [address] May, Neuropathy G62.9 and Chronic pain G89.29 [place] [id number] [place] [address] May, [place] [id number] [place] [address] May, [place] [id number] [place] [address] May, Type 2 diabetes mellitus with diabetic [...] with positive rheumatoid factor M05.732 [place] [address] [place] [address] 14 Apr, 2016 Chronic pain G89.29 [place] [id number] [address] Mar, Gastro-esophageal reflux disease without esophagitis K21.9 [place] [id number] [place] [address] Mar, [place] [id number] [place] [address] Mar, Rheumatoid arthritis with rheumatoid factor of right wrist without organ or systems involvement M05.731 [place] [id number] [place] [address] Mar, Chronic pain G89.29 [place] [id number] [place] [address] Feb, Hyperlipemia E78.5 [place] [id number] [place] [address] Feb, Abnormal breath sounds R06.89 ; COPD with exacerbation J44.1 and Fatigue, unspecified type R53.83 [place] [id number] [place] [address] Feb, Neuropathy G62.9 ; Abnormal lung sounds R09.89 and Bronchitis J40 [facility] [address] [place] [address] Feb, Bronchitis J40 [facility] [id number] [place] [address] Feb, Chronic pain G89.29 [facility] [id number] [place] [address] Jan, Type 2 diabetes mellitus with diabetic neuropathy, unspecified E11.40 ; Rheumatoid arthritis with rheumatoid factor of right wrist without organ or systems involvement M05.731 and Hyperlipemia E78.5 [place] [id number] [place] [address] Jan, Rheumatoid arthritis with rheumatoid factor of right wrist without organ or systems involvement M05.731 [place] [address] [place] [address] Jan, De Quervain's disease (radial styloid tenosynovitis) M65.4 ; Closed nondisplaced fracture of scaphoid of left wrist, unspecified portion of scaphoid, initial encounter S62.002A and Peripheral tear of medial meniscus of left knee, unspecified whether old or current tear, initial encounter S83.222A [place] [id number] [place] [address] Jan, Hypertension I10 ; Type 2 diabetes mellitus with diabetic neuropathy, unspecified E11.40 ; Hyperlipemia E78.5 ; Allergic rhinitis J30.9 ; Neuropathy G62.9 ; Rheumatoid arthritis with rheumatoid factor of right wrist without organ or systems involvement M05.731 ; Acute non-recurrent maxillary sinusitis J01.00 and Chronic pain G89.[address] [address] Dec, [place] [id number] [place] [address] Dec, [place] [id number] [place] [address] Dec, Type 2 diabetes mellitus with diabetic neuropathy, unspecified E11.40 ; Emphysema, unspecified J43.9 ; Gastro-esophageal reflux disease without esophagitis K21.9 ; Hypertension I10 ; Hyperlipemia E78.5 ; Rheumatoid arthritis with rheumatoid factor of right wrist without organ or systems involvement M05.731 ; Elevated white blood cell count, unspecified D72.829 ; Acute non- recurrent frontal sinusitis J01.10 and Chronic pain G89.29 [place] [address] [place] [id number] [place] [id number] Nov, [place] [id number] [place] [id number] Nov, Elevated white blood cell count, unspecified D72.829 ; Encounter for immunization Z23 ; Rheumatoid arthritis with rheumatoid factor of right wrist without organ or systems involvement M05.731 ; Injury of left hand S69.92XA ; Pain in left knee M25.562 and Other chronic pain G89.29 [facility] [address] [place] [id number] [place] [id number] Nov, [facility] [address] [id number] [place] [id number] Nov, [facility] [address] [id number] Oct, [place] [address] [id number] Oct, Hyperlipemia E78.5 [place] [address] [place] [id number] [place] [id number] Oct, [place] [address] [address] Oct, Type 2 diabetes mellitus with diabetic neuropathy, unspecified E11.40 ; Neuropathy G62.9 ; Hypertension I10 ; Chronic pain G89.29 and Hyperlipemia E78.5 [place] [address] [place] [id number] [place] [address] Oct, Emphysema, unspecified J43.9 and Rheumatoid arthritis of left wrist without organ or system involvement with positive rheumatoid factor M05.732 [place] [address] [id number] [place] [address] Sep, Chronic pain syndrome G89.4 [place] [address] [id number] [place] [address] Sep, [place] [address] [address] [id number] [place] [address] Sep, [place] [address] [id number] [place] [address] Sep, Closed nondisplaced fracture of scaphoid of left wrist, unspecified portion of scaphoid, initial encounter S62.002A [facility] [address] [address] Sep, Type 2 diabetes mellitus with diabetic neuropathy, unspecified E11.40 ; Hypertension I10 ; Hyperlipemia E78.5 and Acute non-recurrent maxillary sinusitis J01.00 [facility] [id number] [place] [address] Sep, [facility] [id number] [place] [address] Sep, [facility] [address] [id number] [place] [address] Sep, [place] [id number] [place] [address] Sep, [facility] [id number] [place] [address] Aug, Epigastric pain R10.13 and Right upper quadrant pain R10.11 [place] [id number] [place] [address] Aug, Closed nondisplaced fracture of scaphoid of left wrist, unspecified portion of scaphoid, initial encounter S62.002A [place] [address] [address] Aug, [place] [address] [id number] [place] [address] Aug, [facility] [id number] [place] [address] Aug, Shortness of breath R06.02 ; Epigastric pain R10.13 and Injury of left lower arm, initial encounter S59.912A [facility] [address] [address] Aug, Coronary artery disease involving [place] heart with angina pectoris, unspecified vessel or lesion type I25.119 ; Pulmonary emphysema, unspecified emphysema type J43.9 and Snoring R06.83 [place] [address] [address] Aug, [place] [id number] [place] [address] Aug, Emphysema, unspecified J43.9 ; Atherosclerotic heart disease of [place] coronary artery without angina pectoris I25.10 and Hypertension I10 [place] [id number] [place] [address] July, [place] [id number] [place] [address] July, Closed nondisplaced fracture of scaphoid of left wrist, unspecified portion of scaphoid, initial encounter S62.002A [place] [id number] [place] [address] July, [place] [id number] [place] [address] July, Type 2 diabetes mellitus with diabetic neuropathy, unspecified E11.40 ; Emphysema, unspecified J43.9 ; Atherosclerotic heart disease of [place] coronary artery without angina pectoris I25.10 ; [...] and Hospital discharge follow-up Z09 [place] [address] [address] July, [place] [id number] [place] [address] July, Type 2 diabetes mellitus with diabetic neuropathy, unspecified E11.40 [place] [address] [address] July, Type 2 diabetes mellitus with diabetic neuropathy, unspecified E11.40 and Rheumatoid arthritis of left wrist without organ or system involvement with positive rheumatoid factor M05.732 [facility] [id number] [place] [address] July, [facility] [id number] [place] [address] July, [facility] [id number] [place] [address] Jun, [facility] [id number] [place] [address] Jun, [facility] [address] [id number] [place] [address] Jun, 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 [facility] [address] [address] [id number] [place] [address] Jun, [facility] [id number] [place] [address] Jun, 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 [facility] [id number] [place] [address] Jun, [facility] [id number] [place] [address] Jun, [facility] [id number] [place] [address] Jun, Encounter for PPD test Z11.1 ; Rheumatoid arthritis with rheumatoid factor of right wrist without organ or systems involvement M05.731 and Rheumatoid arthritis of left wrist without organ or system involvement with positive rheumatoid factor M05.732 [facility] [address] [address] [id number] [place] [address] Jun, Type 2 diabetes mellitus with diabetic neuropathy, unspecified E11.40 [facility] [address] [address] May, Type 2 diabetes mellitus with diabetic neuropathy, unspecified E11.40 ; Emphysema, unspecified J43.9 ; Rheumatoid arthritis with rheumatoid factor of right wrist without organ or systems involvement M05.731 ; Rheumatoid arthritis of left wrist without organ or system involvement with positive rheumatoid factor M05.732 and Chronic pain G89.29 [place] [id number] [place] [address] May, [place] [address] [address] May, Swelling of hand joint M25.449 ; Ankle swelling M25.473 and Joint pain M25.[address] [address] May, Emphysema, unspecified J43.9 [place] [address] [address] May, Gastroenteritis K52.9 and Hypertension I10 [place] [address] [address] Apr, [place] [address] [address] Apr, [address] [address] Apr, [place] [id number] [place] [address] Apr, Type 2 diabetes mellitus with diabetic neuropathy, unspecified E11.40 ; Emphysema, unspecified J43.9 ; Atherosclerotic heart disease of [place] coronary artery without angina pectoris I25.10 ; Migraine without aura, not intractable, with status migrainosus G43.001 ; Gastro-esophageal reflux disease without esophagitis K21.9 ; CAD (coronary artery disease) I25.10 ; Hypertension I10 ; Hyperlipemia E78.5 ; Allergic rhinitis J30.9 ; Neuropathy G62.9 ; Anxiety associated with depression F41.8 and Injury of left hand S69.92XA [address] [address] Apr, [place] [id number] [place] [address] Apr, [address] [address] Apr, Type 2 diabetes mellitus with diabetic neuropathy, unspecified E11.40 ; Emphysema, unspecified J43.9 ; Essential (primary) hypertension I10 ; Atherosclerotic heart disease of [place] coronary artery without angina pectoris I25.10 ; Gastro-esophageal reflux disease without esophagitis K21.9 ; CAD (coronary artery disease) I25.10 ; Hyperlipemia E78.5 ; Hypertension I10 ; History of solitary pulmonary nodule Z87.898 ; Allergic rhinitis J30.9 ; Chronic pain G89.29 and Depression with anxiety F41.8 [place] [id number] [place] [address] Mar, [address] [address] Mar, Allergic rhinitis J30.9 ; URI (upper respiratory infection) J06.9 and Other viral agents as the cause of diseases classified elsewhere B97.89 [facility] [place] [id number] [place] [address] Feb, Acute nasopharyngitis [common cold] J00 and Acute diarrhea R19.7 [place] [id number] [place] [address] Feb, Depression F32.[address] [address] Jan, Otitis media, right H66.[address] [address] Jan, [address] [address] Jan, Type 2 diabetes mellitus with diabetic neuropathy, unspecified E11.40 [place] [id number] [place] [address] Jan, [facility] [id number] [place] [address] Jan, Hyperlipemia E78.5 [place] [id number] [place] [address] Jan, Type 2 diabetes mellitus with diabetic neuropathy, unspecified E11.40 ; Emphysema, unspecified J43.9 ; CAD (coronary artery disease) I25.10 and Hyperlipemia E78.5 [place] [address] [address] Dec, Allergic rhinitis J30.9 and Fungal infection B49 [place] [address] [address] Dec, [place] [address] [address] Dec, [place] [id number] [place] [address] Dec, Chest pain R07.9 ; CAD (coronary artery disease) I25.10 ; Hypertension I10 and Hyperlipemia E78.5 [place] [id number] [place] [address] Dec, Pain in thoracic spine M54.6 ; Gastro-esophageal reflux disease without esophagitis K21.9 ; Emphysema, unspecified J43.9 and Migraine without aura, not intractable, with status migrainosus G43.001 [place] [id number] [place] [address] Dec, [place] [address] [address] Nov, Influenza vaccine administered V04.81 [place] [id number] [place] [address] Nov, [place] [address] [place] [address] Sep, [facility] [address] [facility] [id number] [address] Sep, [facility] [address] [facility] [id number] [address] Sep, CAD (coronary artery disease) 414.00 and Diabetes type 2, uncontrolled 250.02 [facility] [address] [facility] [id number] [address] Sep, CAD (coronary artery disease) 414.00 ; [...] History Atherosclerotic heart disease of [place] coronary artery without angina pectoris Medical History [...]
--- OUTSIDE RECORDS SUMMARY | 2018-08-23 17:42 | XMS REPORT ---
Author Author BRANDIN REYES [facility] Address [address] [place] [address] Care Team Providers Care Parts Sales Advisor Name Role Phone BRANDIN REYES Unavailable PROBLEMS Type Condition ICD9-CM Code XCD19-QE Code Onset Dates Condition Status SNOMED Code Problem Other hammer toe(s) (acquired), left foot M20.42 Active 65546807 Problem Tobacco abuse Z72.0 Active 595830115 Problem Other hammer toe(s) (acquired), right foot M20.41 Active 280781665 Problem Acute rheumatoid arthritis M06.9 Active 72398383 Problem Emphysema, unspecified J43.9 Active 45788252 Problem Intractable migraine without status migrainosus, unspecified migraine type G43.919 Active 859468146 Problem Gastro-esophageal reflux disease without esophagitis K21.9 Active 204128965 Problem Hypertension I10 Active 10977826 Problem 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 Active 693910871660090 Problem Hammer toe of left foot M20.42 Active 792195729 Problem Elevated white blood cell count, unspecified D72.829 Active 630950854 Problem Other chronic pain G89.29 Active 85253404 Problem Anxiety associated with depression F41.8 Active 669275311 Problem Chronic pain G89.29 Active 07234471 Problem Type 2 diabetes mellitus with diabetic neuropathy, unspecified E11.40 Active 50394717 Problem Allergic rhinitis J30.9 Active 48010048 Problem Primary insomnia F51.01 Active 9125173 Problem Periodontitis K05.30 Active 68154657 Problem Vitamin D deficiency E55.9 Active 13122372 Problem OAB (overactive bladder) N32.81 Active 725952978 Problem Dependence on nocturnal oxygen therapy Z99.81 Active 26955477539443 Problem Hyperlipemia E78.5 Active 23105122 Problem Rheumatoid arthritis involving multiple sites with positive rheumatoid factor M05.79 Active 192662973 Problem Neuropathy G62.9 Active 362623044 ALLERGIES No Information ENCOUNTERS Encounter Location Date Diagnosis [place] [id number], [place] [address] Jan, [place] [address], [place] [address] Dec, [place] [address] [place] [id number] [address] Dec, Rheumatoid arthritis involving multiple sites with positive rheumatoid factor M05.79 [place] [address] [place] [id number] [place] [address] Dec, Rheumatoid arthritis involving multiple sites with positive rheumatoid factor M05.79 [place] [address] [place] [id number] [place] [address] Dec, Rheumatoid arthritis involving multiple sites with positive rheumatoid factor M05.79 and Need for hepatitis C screening test Z11.59 [place] [address] [place] [id number] [place] [address] Dec, Acute rheumatoid arthritis M06.9 [place] [address] [place] [id number] [place] [address] Dec, [place] [address] [place] [id number] [place] [address] Dec, Type 2 diabetes mellitus with diabetic neuropathy, unspecified E11.40 and Neuropathy G62.9 [place] [address], [place] [address] Dec, Chronic pain G89.29 [place] [address] [place] [address] 24 Nov, 2017 Type 2 diabetes mellitus with diabetic neuropathy, unspecified E11.40 ; Neuropathy G62.9 ; Hypertension I10 ; Dependence on nocturnal oxygen therapy Z99.81 ; Emphysema, unspecified J43.9 and Encounter for immunization Z23 [place] [address] [place] [address] 07 Nov, 2017 Chronic pain G89.29 [facility] [address] [place] [id number] [place] [address] Nov, Chronic pain G89.29 [facility] [address] [place] [id number] [place] [address] Oct, Dysuria R30.0 ; Intractable migraine without status migrainosus, unspecified migraine type G43.919 and Back pain at L4-L5 level M54.5 [facility] [address] [place] [id number] [place] [address] Oct, Orthostatic hypotension I95.1 [place] [address] [address] Oct, Localized swelling of both lower legs R22.43 ; Onychomycosis B35.1 and Type 2 diabetes mellitus with diabetic neuropathy, unspecified E11.40 [place] [address] [place] [id number] [place] [address] Oct, [facility] [address] [place] [id number] [place] [address] Oct, Elevated white blood cell count, unspecified D72.829 [place] [address] [place] [id number] [place] [address] Oct, Elevated white blood cell count, unspecified D72.829 [place] [address] [place] [id number] [place] [address] Oct, Chronic pain G89.29 [facility] [address] [place] [id number] [place] [address] Oct, [facility] [address] [place] [id number] [place] [address] Oct, [facility] [address] [place] [id number] [place] [address] Oct, Orthostatic hypotension I95.1 ; Dizziness R42 and Neuropathy G62.9 [facility]ALK [facility] [address] [place] [id number] [place] [address] Oct, Dizziness R42 ; Low back pain M54.5 ; Other chronic pain G89.29 ; Nausea R11.0 and Orthostatic hypotension I95.1 [place] [address] [place] [id number] [place] [address] Sep, Rheumatoid arthritis involving multiple sites with positive rheumatoid factor M05.79 and Tobacco abuse Z72.0 [place] [id number] [place] [address] Sep, Chronic pain G89.[address] [address] Aug, Type 2 diabetes mellitus with diabetic neuropathy, unspecified E11.40 ; Hypertension I10 ; Hyperlipemia E78.5 ; Gastro-esophageal reflux disease without esophagitis K21.9 ; Emphysema, unspecified J43.9 ; Anxiety associated with depression F41.8 ; Vitamin D deficiency E55.9 ; Chronic pain G89.29 ; Tobacco abuse Z72.0 ; Overweight (BMI 25.0-29.9) E66.3 ; 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 ; OAB (overactive bladder) N32.81 and Primary insomnia F51.01 [place] [address] [place] [id number] [place] [address] July, [place] [address] [place] [id number] [place] [address] July, [place] [address] [place] [id number] [place] [address] July, Chronic pain G89.29 [place] [address] [place] [id number] [place] [address] July, [place] [address] [place] [id number] [place] [address] July, Onychomycosis B35.1 ; Hammer toe of left foot M20.42 and Type 2 diabetes mellitus with diabetic neuropathy, unspecified E11.40 [facility] [address], [place] [address] July, [facility] [address] [place] [id number] [place] [address] July, Chronic pain G89.29 and Neuropathy G62.9 [facility] [address] [place] [id number] [place] [address] July, [facility] [address] [place] [id number] [place] [address] July, [facility] [address] [place] [id number] [place] [address] Jun, [facility] [address] [place] [id number] [place] [address] Jun, Chronic pain G89.29 [facility] [address] [place] [id number] [place] [address] Jun, [facility] [address] [place] [id number] [place] [address] Jun, [facility] [address] [place] [id number] [place] [address] Jun, Visit for TB skin test Z11.1 [facility] [address] [place] [address] 16 Jun, 2017 [facility] [id number] [place] [address] Jun, [facility] [address] [place] [address] Jun, Tobacco abuse Z72.0 and Rheumatoid arthritis involving multiple sites with positive rheumatoid factor M05.79 [facility] [address] [place] [address] Jun, Anxiety F41.9 ; Acute non-recurrent maxillary sinusitis J01.00 and Chronic pain G89.29 [facility] [address], [place] [address] Jun, [place] [address] [place] [id number] [place] [address] May, Rheumatoid arthritis involving multiple sites with positive rheumatoid factor M05.79 [place] [address] [place] [address] May, Chronic pain G89.29 [place] [address] [place] [id number] [place] [address] May, [place] [address] [place] [id number] [place] [address] May, [place] [address] [place] [id number] [place] [address] May, [place] [address] [place] [id number] [place] [address] May, Type 2 diabetes mellitus with diabetic neuropathy, unspecified E11.40 [place] [address], [place] [address] May, Type 2 diabetes mellitus with diabetic neuropathy, unspecified E11.40 ; Emphysema, unspecified J43.9 ; Hypertension I10 ; Hyperlipemia E78.5 ; Vitamin D deficiency E55.9 ; Right medial knee pain M25.561 ; Controlled substance agreement signed Z79.899 ; Chronic pain G89.29 ; Allergic rhinitis J30.9 ; Anxiety associated with depression F41.8 ; Neuropathy G62.9 and Gastro- esophageal reflux disease without esophagitis K21.9 [place] [address], [place] [address] Apr, Chronic pain G89.29 [place] [address] [place] [address] 16 Apr, 2017 Other hammer toe(s) (acquired), left foot M20.42 ; Other hammer toe(s) (acquired), right foot M20.41 ; Type 2 diabetes mellitus with diabetic neuropathy, unspecified E11.40 and Onychomycosis B35.1 [facility] [address] [place] [id number] [place] [address] 2017 Gastro-esophageal reflux disease without esophagitis K21.9 [place] [address] [place] [id number] [place] [address] 02 Apr, 2017 Controlled substance agreement signed Z79.899 [place] [address] [address] Mar, Chronic pain G89.29 [place] [address] [address] Mar, Emphysema, unspecified J43.9 and Type 2 diabetes mellitus with diabetic neuropathy, unspecified E11.40 [facility] [address] [place] [id number] [place] [address] Mar, Dysuria R30.0 ; Vaginal candidiasis B37.3 and Acute nonintractable headache, unspecified headache type R51 [place] [address] [place] [id number] [place] [address] Feb, Neuropathy G62.9 and Chronic pain G89.29 [place] [address] [address] Feb, Gastro-esophageal reflux disease without esophagitis K21.9 [place] [address] [place] [id number] [place] [address] Feb, [place] [address] [place] [id number] [place] [address] Feb, Rheumatoid arthritis involving multiple sites with positive rheumatoid factor M05.79 and COPD with acute exacerbation J44.1 [place] [address] [address] Feb, Vaginal odor N89.8 ; Vaginal irritation N89.8 ; Candidal dermatitis B37.2 and Screening breast examination Z12.31 [place] [address] [place] [address] Feb, [facility] [address] [place] [id number] [place] [address] Feb, [facility] [address] [place] [id number] [place] [address] Feb, [facility] [address] [address] Feb, COPD with exacerbation J44.1 ; Tobacco abuse counseling Z71.6 ; Tobacco abuse Z72.0 ; Rheumatoid arthritis involving multiple sites with positive rheumatoid factor M05.79 and Hyperlipemia E78.5 [place] [address] [address] Feb, [facility] [address] [id number] Jan, [place] [address] [address] Jan, Chronic pain G89.29 [facility] [address] [id number] Jan, Dental examination Z01.20 [facility] [address] [place] [id number] [place] [address] 19 Jan, 2017 Back pain of lumbar region with sciatica M54.40 [facility] [address] [place] [id number] [place] [address] 15 Jan, 2017 Acute bacterial conjunctivitis of both eyes H10.33 [place] [address] [place] [id number] [place] [address] 02 Jan, 2017 Chronic pain G89.29 [place] [address] [address] Dec, Type 2 diabetes mellitus with diabetic neuropathy, unspecified E11.40 ; Hypertension I10 ; Hyperlipemia E78.5 ; Gastro-esophageal reflux disease without esophagitis K21.9 ; Anxiety associated with depression F41.8 ; Allergic rhinitis J30.9 ; Neuropathy G62.9 and Dependence on nocturnal oxygen therapy Z99.81 [place] [address] [address] Dec, [place] [address] [address] Dec, [place] [address] [address] 09 Dec, 2016 Encounter for immunization Z23 [place] [address] [address] 05 Dec, 2016 Type 2 diabetes mellitus with diabetic neuropathy, unspecified E11.40 and Chronic pain G89.29 [place] [address] [address] 11 Nov, 2016 Gastro-esophageal reflux disease without esophagitis K21.9 [place] [address] [address] 11 Nov, 2016 Peripheral edema R60.9 and Chest pain in adult R07.9 [place] [address] [address] 07 Nov, 2016 Chronic pain G89.29 [place] [address] [address] 31 Oct, 2016 [place] [address] [address] 30 Oct, 2016 [place] [address] [address] 17 Oct, 2016 Rheumatoid arthritis with rheumatoid factor of right wrist without organ or systems involvement M05.731 [place] [address] [address] 15 Oct, 2016 [facility] [address] [place] [id number] [place] [address] 14 Oct, 2016 Acute exacerbation of chronic obstructive pulmonary disease (COPD) J44.1 and Canker sore K12.0 [facility] [address] [place] [id number] [place] [address] Oct, [facility] [address] [address] Oct, [facility] [address] [address] Oct, Chronic pain G89.29 [facility] [address] [id number] Oct, Dental examination Z01.20 [facility] [address] [address] Oct, Dental examination Z01.20 and Periodontitis K05.30 [facility] [address] [id number] Oct, Dental examination Z01.20 [facility] [address] [place] [id number] [place] [address] Sep, Abscess L02.91 [facility] [address] [address] Sep, Dental examination Z01.20 [facility] [address] [place] [id number] [place] [address] Sep, [facility] [address] [place] [id number] [place] [id number] Sep, Dental examination Z01.20 and Dental caries K02.9 [facility] [address] [place] [id number] [place] [address] Sep, Primary insomnia F51.01 and Anxiety associated with depression F41.8 [place] [address] [place] [id number] [place] [address] Sep, Rheumatoid arthritis with rheumatoid factor of right wrist without organ or systems involvement M05.731 [place] [address] [address] Sep, Chronic pain G89.29 [place] [address] [place] [id number] [place] [address] Sep, Type 2 diabetes mellitus with diabetic neuropathy, unspecified E11.40 ; Emphysema, unspecified J43.9 ; Gastro-esophageal reflux disease without esophagitis K21.9 ; Hypertension I10 ; Hyperlipemia E78.5 ; Anxiety associated with depression F41.8 ; Chronic pain G89.29 ; Vitamin D deficiency E55.9 and Primary insomnia F51.01 [place] [address] [place] [id number] [place] [address] 16 Aug, 2016 Anxiety associated with depression F41.[address] [address] Aug, Chronic pain G89.29 and Neuropathy G62.[address] [address] Aug, Type 2 diabetes mellitus with diabetic neuropathy, unspecified E11.40 ; Rheumatoid arthritis involving multiple sites with positive rheumatoid factor M05.79 ; Vitamin D deficiency E55.9 ; Anxiety associated with depression F41.8 and Primary insomnia F51.01 [place] [address] [place] [id number] [place] [address] July, Emphysema, unspecified J43.9 [place] [id number] [place] [address] July, Allergic rhinitis J30.9 [place] [address] [place] [id number] [place] [address] July, Allergic rhinitis J30.9 ; Emphysema, unspecified J43.9 and Rheumatoid arthritis with rheumatoid factor of right wrist without organ or systems involvement M05.731 [place] [address] [place] [id number] [place] [address] July, Neuropathy G62.9 and Chronic pain G89.29 [place] [address] [address] July, Rheumatoid arthritis involving multiple sites with positive rheumatoid factor M05.79 [place] [address] [place] [id number] [place] [address] Jun, [place] [address] [place] [id number] [place] [address] Jun, Neuropathy G62.9 and Chronic pain G89.29 [place] [address] [place] [id number] [place] [address] May, Neuropathy G62.9 and Chronic pain G89.29 [place] [address] [place] [id number] [place] [address] May, [place] [address] [place] [id number] [place] [address] May, [place] [address] [place] [id number] [place] [address] May, Type 2 diabetes mellitus with diabetic [...] system involvement with positive rheumatoid factor M05.732 [place] [address] [place] [address] Apr, Chronic pain G89.29 [place] [address] [place] [id number] [place] [address] Mar, Gastro-esophageal reflux disease without esophagitis K21.9 [place] [address] [place] [id number] [place] [address] Mar, [place] [address] [place] [id number] [place] [address] Mar, Rheumatoid arthritis with rheumatoid factor of right wrist without organ or systems involvement M05.731 [place] [address] [place] [id number] [place] [address] Mar, Chronic pain G89.29 [place] [address] [address] Feb, Hyperlipemia E78.5 [place] [address] [address] Feb, Abnormal breath sounds R06.89 ; COPD with exacerbation J44.1 and Fatigue, unspecified type R53.83 [place] [address] [place] [id number] [place] [address] Feb, Neuropathy G62.9 ; Abnormal lung sounds R09.89 and Bronchitis J40 [facility] [address] [address] Feb, Bronchitis J40 [place] [address] [address] Feb, Chronic pain G89.29 [place] [address] [place] [id number] [place] [address] Jan, Type 2 diabetes mellitus with diabetic neuropathy, unspecified E11.40 ; Rheumatoid arthritis with rheumatoid factor of right wrist without organ or systems involvement M05.731 and Hyperlipemia E78.5 [place] [address] [place] [id number] [place] [address] Jan, Rheumatoid arthritis with rheumatoid factor of right wrist without organ or systems involvement M05.731 [place] [address] [address] Jan, De Quervain's disease (radial styloid tenosynovitis) M65.4 ; Closed nondisplaced fracture of scaphoid of left wrist, unspecified portion of scaphoid, initial encounter S62.002A and Peripheral tear of medial meniscus of left knee, unspecified whether old or current tear, initial encounter S83.222A [place] [address] [place] [id number] [place] [address] Jan, Hypertension I10 ; Type 2 diabetes mellitus with diabetic neuropathy, unspecified E11.40 ; Hyperlipemia E78.5 ; Allergic rhinitis J30.9 ; Neuropathy G62.9 ; Rheumatoid arthritis with rheumatoid factor of right wrist without organ or systems involvement M05.731 ; Acute non-recurrent maxillary sinusitis J01.00 and Chronic pain G89.29 [place] [address] [place] [id number] [place] [address] Dec, [place] [address] [address] Dec, [place] [address] [address] Dec, Type 2 diabetes mellitus with diabetic neuropathy, unspecified E11.40 ; Emphysema, unspecified J43.9 ; Gastro-esophageal reflux disease without esophagitis K21.9 ; Hypertension I10 ; Hyperlipemia E78.5 ; Rheumatoid arthritis with rheumatoid factor of right wrist without organ or systems involvement M05.731 ; Elevated white blood cell count, unspecified D72.829 ; Acute non- recurrent frontal sinusitis J01.10 and Chronic pain G89.29 [place] [address] [place] [id number] [place] [address] Nov, [place] [address] [place] [id number] [place] [address] Nov, Elevated white blood cell count, unspecified D72.829 ; Encounter for immunization Z23 ; Rheumatoid arthritis with rheumatoid factor of right wrist without organ or systems involvement M05.731 ; Injury of left hand S69.92XA ; Pain in left knee M25.562 and Other chronic pain G89.29 [place] [address] [place] [id number] [place] [address] Nov, [place] [address] [place] [address] Nov, [place] [address] [place] [id number] [place] [address] Oct, [facility] [address] [place] [id number] [place] [address] Oct, Hyperlipemia E78.5 [place] [address] [place] [id number] [place] [address] Oct, [place] [address] [place] [id number] [place] [address] Oct, Type 2 diabetes mellitus with diabetic neuropathy, unspecified E11.40 ; Neuropathy G62.9 ; Hypertension I10 ; Chronic pain G89.29 and Hyperlipemia E78.5 [place] [address] [place] [id number] [place] [address] Oct, Emphysema, unspecified J43.9 and Rheumatoid arthritis of left wrist without organ or system involvement with positive rheumatoid factor M05.732 [place] [address] [place] [id number] [place] [id number] Sep, Chronic pain syndrome G89.4 [place] [address] [place] [id number] [place] [id number] Sep, [place] [address] [place] [id number] [place] [id number] Sep, [place] [address] [place] [id number] [place] [id number] Sep, Closed nondisplaced fracture of scaphoid of left wrist, unspecified portion of scaphoid, initial encounter S62.002A [place] [address] [id number] Sep, Type 2 diabetes mellitus with diabetic neuropathy, unspecified E11.40 ; Hypertension I10 ; Hyperlipemia E78.5 and Acute non-recurrent maxillary sinusitis J01.00 [place] [address] [place] [address] Sep, [facility] [address] [id number] [address] Sep, [facility] [id number] [place] [address] Sep, [facility] [id number] [place] [address] Sep, [facility] [address] [place] [id number] [place] [address] Aug, Epigastric pain R10.13 and Right upper quadrant pain R10.11 [facility] [id number] [place] [address] Aug, Closed nondisplaced fracture of scaphoid of left wrist, unspecified portion of scaphoid, initial encounter S62.002A [facility] [id number] [place] [address] Aug, [facility] [id number] [place] [address] Aug, [facility] [id number] [place] [address] Aug, Shortness of breath R06.02 ; Epigastric pain R10.13 and Injury of left lower arm, initial encounter S59.912A [facility] [id number] [address] Aug, Coronary artery disease involving hughes heart with angina pectoris, unspecified vessel or lesion type I25.119 ; Pulmonary emphysema, unspecified emphysema type J43.9 and Snoring R06.83 [facility] [address] [place] [address] Aug, [facility] [id number] [place] [address] Aug, Emphysema, unspecified J43.9 ; 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 and Hypertension I10 [facility] [id number] [address] July, [facility] [id number] [place] [address] July, Closed nondisplaced fracture of scaphoid of left wrist, unspecified portion of scaphoid, initial encounter S62.002A [facility] [address] [id number] [place] [address] July, [facility] [id number] [place] [address] July, Type 2 diabetes mellitus with diabetic neuropathy, unspecified E11.40 ; Emphysema, unspecified J43.9 ; 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 ; [...] agents L24.89 and Hospital discharge follow-up Z09 [facility] [id number] [address] July, [facility] [id number] [address] July, Type 2 diabetes mellitus with diabetic neuropathy, unspecified E11.40 [place] [id number] [address] July, Type 2 diabetes mellitus with diabetic neuropathy, unspecified E11.40 and Rheumatoid arthritis of left wrist without organ or system involvement with positive rheumatoid factor M05.732 [facility] [id number], [place] [address] July, [facility] [id number] [place] [address] July, [facility] [id number] [address] Jun, [facility] [id number] [address] Jun, [facility] [id number], [place] [address] Jun, 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 [facility] [id number] [place] [address] Jun, [facility] [address] [place] [address] Jun, 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 [facility] [id number] [place] [address] Jun, [facility] [id number] [place] [address] Jun, [facility] [address] [place] [address] Jun, Encounter for PPD test Z11.1 ; Rheumatoid arthritis with rheumatoid factor of right wrist without organ or systems involvement M05.731 and Rheumatoid arthritis of left wrist without organ or system involvement with positive rheumatoid factor M05.732 [facility] [id number] [address] Jun, Type 2 diabetes mellitus with diabetic neuropathy, unspecified E11.40 [facility] [id number], [place] [address] May, Type 2 diabetes mellitus with diabetic neuropathy, unspecified E11.40 ; Emphysema, unspecified J43.9 ; Rheumatoid arthritis with rheumatoid factor of right wrist without organ or systems involvement M05.731 ; Rheumatoid arthritis of left wrist without organ or system involvement with positive rheumatoid factor M05.732 and Chronic pain G89.29 [facility] [id number] [address] May, [facility] [address] [place] [address] May, Swelling of hand joint M25.449 ; Ankle swelling M25.473 and Joint pain M25.50 [facility] [address] [id number] [place] [address] May, Emphysema, unspecified J43.9 [facility] [address] [address] May, Gastroenteritis K52.9 and Hypertension I10 [place] [address] [address] Apr, [place] [address] [address] Apr, [facility] [address] [id number] [place] [address] Apr, [facility] [address] [id number] [place] [address] Apr, Type 2 diabetes mellitus with diabetic neuropathy, unspecified E11.40 ; Emphysema, unspecified J43.9 ; 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 ; Migraine without aura, not intractable, with status migrainosus G43.001 ; Gastro-esophageal reflux disease without esophagitis K21.9 ; CAD (coronary artery disease) I25.10 ; Hypertension I10 ; Hyperlipemia E78.5 ; Allergic rhinitis J30.9 ; Neuropathy G62.9 ; Anxiety associated with depression F41.8 and Injury of left hand S69.92XA [facility] [address] [address] [id number] [place] [address] Apr, [facility] [address] [address] [id number] [place] [address] Apr, [facility] [address] [address] [id number] [place] [address] Apr, Type 2 diabetes mellitus with diabetic neuropathy, unspecified E11.40 ; Emphysema, unspecified J43.9 ; Essential (primary) hypertension I10 ; 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 ; Gastro-esophageal reflux disease without esophagitis K21.9 ; CAD (coronary artery disease) I25.10 ; Hyperlipemia E78.5 ; Hypertension I10 ; History of solitary pulmonary nodule Z87.898 ; Allergic rhinitis J30.9 ; Chronic pain G89.29 and Depression with anxiety F41.8 [place] [address] [address] Mar, [address] [address] Mar, Allergic rhinitis J30.9 ; URI (upper respiratory infection) J06.9 and Other viral agents as the cause of diseases classified elsewhere B97.89 [facility] [address] [address] Feb, Acute nasopharyngitis [common cold] J00 and Acute diarrhea R19.[address] [address] Feb, Depression F32.[address] [address] Jan, Otitis media, right H66.[address] [address] Jan, [place] [address] [address] Jan, Type 2 diabetes mellitus with diabetic neuropathy, unspecified E11.[address] [address] Jan, [address] [address] 05 Jan, 2015 Hyperlipemia E78.5 [place] [address] [address] Jan, Type 2 diabetes mellitus with diabetic neuropathy, unspecified E11.40 ; Emphysema, unspecified J43.9 ; CAD (coronary artery disease) I25.10 and Hyperlipemia E78.5 [place] [address] [address] Dec, Allergic rhinitis J30.9 and Fungal infection B49 [place] [address] [address] Dec, [place] [address] [address] Dec, [address] [address] Dec, Chest pain R07.9 ; CAD (coronary artery disease) I25.10 ; Hypertension I10 and Hyperlipemia E78.[address] [address] Dec, Pain in thoracic spine M54.6 ; Gastro-esophageal reflux disease without esophagitis K21.9 ; Emphysema, unspecified J43.9 and Migraine without aura, not intractable, with status migrainosus G43.[address] [address] Dec, [address] [address] Nov, Influenza vaccine administered V04.[address] [address] Nov, [address] [address] Sep, [address] [address] Sep, [place] [address] [address] Sep, CAD (coronary artery disease) 414.00 and Diabetes type 2, uncontrolled 250.02 [facility] [address] [facility] [id number] [place] [address] Sep, CAD (coronary artery disease) 414.00 ; [...] unspecified Medical History Atherosclerotic heart disease of hughes coronary artery without angina pectoris Medical History [...]
--- OUTSIDE RECORDS SUMMARY | 2018-08-23 17:43 | XMS REPORT ---
Author Author BRANDIN REYES [facility] Address [address] [place] [address] Care Team Providers Care Respiratory Director Name Role Phone BRANDIN REYES Unavailable PROBLEMS Type Condition ICD9-CM Code VYH94-VU Code Onset Dates Condition Status SNOMED Code Problem Other hammer toe(s) (acquired), left foot M20.42 Active 38934054 Problem Tobacco abuse Z72.0 Active 170307269 Problem Other hammer toe(s) (acquired), right foot M20.41 Active 943277827 Problem Acute rheumatoid arthritis M06.9 Active 91391334 Problem Emphysema, unspecified J43.9 Active 88535999 Problem Intractable migraine without status migrainosus, unspecified migraine type G43.919 Active 446496856 Problem Gastro-esophageal reflux disease without esophagitis K21.9 Active 127950962 Problem Hypertension I10 Active 52969522 Problem Atherosclerotic heart disease of [place] coronary artery without angina pectoris I25.10 Active 125094164230421 Problem Hammer toe of left foot M20.42 Active 439005347 Problem Elevated white blood cell count, unspecified D72.829 Active 654654621 Problem Other chronic pain G89.29 Active 52254841 Problem Anxiety associated with depression F41.8 Active 900602992 Problem Chronic pain G89.29 Active 64539668 Problem Type 2 diabetes mellitus with diabetic neuropathy, unspecified E11.40 Active 16505751 Problem Allergic rhinitis J30.9 Active 66899912 Problem Primary insomnia F51.01 Active 7145299 Problem Periodontitis K05.30 Active 23255597 Problem Vitamin D deficiency E55.9 Active 62403725 Problem OAB (overactive bladder) N32.81 Active 649615144 Problem Dependence on nocturnal oxygen therapy Z99.81 Active 19433568431292 Problem Hyperlipemia E78.5 Active 56755562 Problem Rheumatoid arthritis involving multiple sites with positive rheumatoid factor M05.79 Active 228184525 Problem Neuropathy G62.9 Active 199018318 ALLERGIES No Information ENCOUNTERS Encounter Location Date Diagnosis [place] [address], [place] [address] Jan, [place] [address], [place] [address] Dec, Rheumatoid arthritis involving multiple sites with positive rheumatoid factor M05.79 [place] [address] [place] [id number] [place] [address] Dec, Rheumatoid arthritis involving multiple sites with positive rheumatoid factor M05.79 [place] [address] [place] [id number] [place] [address] Dec, Rheumatoid arthritis involving multiple sites with positive rheumatoid factor M05.79 and Need for hepatitis C screening test Z11.59 [place] [address] [place] [id number] [place] [address] Dec, Acute rheumatoid arthritis M06.9 [place] [address] [place] [id number] [place] [address] Dec, [place] [address] [id number] [place] [address] Dec, Type 2 diabetes mellitus with diabetic neuropathy, unspecified E11.40 and Neuropathy G62.9 [place] [address] [place] [address] Dec, Chronic pain G89.29 [place] [address] [id number] [place] [address] 24 Nov, 2017 Type 2 diabetes mellitus with diabetic neuropathy, unspecified E11.40 ; Neuropathy G62.9 ; Hypertension I10 ; Dependence on nocturnal oxygen therapy Z99.81 ; Emphysema, unspecified J43.9 and Encounter for immunization Z23 [place] [address] [place] [address] 07 Nov, 2017 Chronic pain G89.29 [place] [address] [place] [id number] [place] [address] Nov, Chronic pain G89.29 [facility] [address] [address] [id number] [place] [address] Oct, Dysuria R30.0 ; Intractable migraine without status migrainosus, unspecified migraine type G43.919 and Back pain at L4-L5 level M54.5 [facility] [address] [id number] [place] [address] Oct, Orthostatic hypotension I95.1 [facility] [address] [address] [id number] [place] [address] Oct, Localized swelling of both lower legs R22.43 ; Onychomycosis B35.1 and Type 2 diabetes mellitus with diabetic neuropathy, unspecified E11.40 [facility] [address] [place] [id number] [place] [address] Oct, [facility] [address] [place] [id number] [place] [address] Oct, Elevated white blood cell count, unspecified D72.829 [facility] [address] [id number] [place] [address] Oct, Elevated white blood cell count, unspecified D72.829 [facility] [address] [id number] [place] [address] Oct, Chronic pain G89.29 [facility] [id number] [place] [address] Oct, [facility] [address] [id number] [place] [address] Oct, [facility] [address] [id number] [place] [address] Oct, Orthostatic hypotension I95.1 ; Dizziness R42 and Neuropathy G62.9 [facility] [address] [id number] [place] [address] Oct, Dizziness R42 ; Low back pain M54.5 ; Other chronic pain G89.29 ; Nausea R11.0 and Orthostatic hypotension I95.1 [place] [address] [id number] [place] [address] Sep, Rheumatoid arthritis involving multiple sites with positive rheumatoid factor M05.79 and Tobacco abuse Z72.0 [place] [address] [place] [id number] [place] [address] Sep, Chronic pain G89.29 [place] [address] [address] Aug, Type 2 diabetes mellitus with diabetic neuropathy, unspecified E11.40 ; Hypertension I10 ; Hyperlipemia E78.5 ; Gastro-esophageal reflux disease without esophagitis K21.9 ; Emphysema, unspecified J43.9 ; Anxiety associated with depression F41.8 ; Vitamin D deficiency E55.9 ; Chronic pain G89.29 ; Tobacco abuse Z72.0 ; Overweight (BMI 25.0-29.9) E66.3 ; Atherosclerotic heart disease of [place] coronary artery without angina pectoris I25.10 ; OAB (overactive bladder) N32.81 and Primary insomnia F51.01 [place] [address] [id number] [place] [address] July, [place] [address] [place] [id number] [place] [address] July, [place] [address] [place] [id number] [place] [address] July, Chronic pain G89.29 [place] [address] [place] [id number] [place] [address] July, [place] [address] [address] July, Onychomycosis B35.1 ; Hammer toe of left foot M20.42 and Type 2 diabetes mellitus with diabetic neuropathy, unspecified E11.40 [place] [address] [place] [id number] [place] [address] July, [facility] [address] [place] [address] July, Chronic pain G89.29 and Neuropathy G62.9 [facility] [address] [place] [id number] [place] [address] July, [facility] [address] [id number] [place] [address] July, [facility] [address] [id number] [place] [address] Jun, [facility] [address] [address] [id number] [place] [address] Jun, Chronic pain G89.29 [facility] [address] [address] [id number] [place] [address] Jun, [facility] [address] [id number] [place] [address] Jun, [facility] [address] [id number] [place] [address] Jun, Visit for TB skin test Z11.1 [facility] [address] [place] [id number] [place] [address] Jun, [facility] [address] [id number] [place] [address] Jun, [facility] [address] [address] [id number] [place] [address] Jun, Tobacco abuse Z72.0 and Rheumatoid arthritis involving multiple sites with positive rheumatoid factor M05.79 [facility] [address] [address] [id number] [place] [address] Jun, Anxiety F41.9 ; Acute non-recurrent maxillary sinusitis J01.00 and Chronic pain G89.29 [facility] [address] [place] [address] Jun, [facility] [address], [place] [address] May, Rheumatoid arthritis involving multiple sites with positive rheumatoid factor M05.79 [place] [address] [place] [id number] [place] [address] May, Chronic pain G89.29 [place] [address] [place] [address] May, [place] [address] [place] [id number] [place] [address] May, [place] [address] [place] [id number] [place] [address] May, [place] [address] [place] [id number] [place] [address] May, Type 2 diabetes mellitus with diabetic neuropathy, unspecified E11.40 [place] [id number] [place] [address] May, Type 2 diabetes mellitus with diabetic neuropathy, unspecified E11.40 ; Emphysema, unspecified J43.9 ; Hypertension I10 ; Hyperlipemia E78.5 ; Vitamin D deficiency E55.9 ; Right medial knee pain M25.561 ; Controlled substance agreement signed Z79.899 ; Chronic pain G89.29 ; Allergic rhinitis J30.9 ; Anxiety associated with depression F41.8 ; Neuropathy G62.9 and Gastro- esophageal reflux disease without esophagitis K21.9 [place] [address] [place] [address] Apr, Chronic pain G89.29 [address] [place] [address] 16 Apr, 2017 Other hammer toe(s) (acquired), left foot M20.42 ; Other hammer toe(s) (acquired), right foot M20.41 ; Type 2 diabetes mellitus with diabetic neuropathy, unspecified E11.40 and Onychomycosis B35.1 [place] [address] [place] [id number] [place] [address] 2017 Gastro-esophageal reflux disease without esophagitis K21.9 [place] [address] [place] [id number] [place] [address] 02 Apr, 2017 Controlled substance agreement signed Z79.899 [facility] [address] [place] [id number] [place] [address] Mar, Chronic pain G89.29 [place] [address] [place] [id number] [place] [address] Mar, Emphysema, unspecified J43.9 and Type 2 diabetes mellitus with diabetic neuropathy, unspecified E11.40 [facility] [address] [place] [id number] [place] [address] Mar, Dysuria R30.0 ; Vaginal candidiasis B37.3 and Acute nonintractable headache, unspecified headache type R51 [place] [address] [place] [id number] [place] [address] Feb, Neuropathy G62.9 and Chronic pain G89.29 [place] [address] [place] [id number] [place] [address] Feb, Gastro-esophageal reflux disease without esophagitis K21.9 [place] [address] [place] [id number] [place] [address] Feb, [place] [address] [place] [id number] [place] [address] Feb, Rheumatoid arthritis involving multiple sites with positive rheumatoid factor M05.79 and COPD with acute exacerbation J44.1 [place] [address] [place] [id number] [place] [address] Feb, Vaginal odor N89.8 ; Vaginal irritation N89.8 ; Candidal dermatitis B37.2 and Screening breast examination Z12.31 [place] [address] [place] [id number] [place] [address] Feb, [place] [address] [address] Feb, [facility] [address] [address] Feb, [place] [address] [place] [id number] Feb, COPD with exacerbation J44.1 ; Tobacco abuse counseling Z71.6 ; Tobacco abuse Z72.0 ; Rheumatoid arthritis involving multiple sites with positive rheumatoid factor M05.79 and Hyperlipemia E78.5 [place] [address] [address] Feb, [facility] [address] [id number] Jan, [place] [address] [address] Jan, Chronic pain G89.29 [facility] [address] [id number] Jan, Dental examination Z01.20 [facility] [address] [address] Jan, Back pain of lumbar region with sciatica M54.40 [facility] [address] [place] [address] 15 Jan, 2017 Acute bacterial conjunctivitis of both eyes H10.33 [place] [address] [address] 02 Jan, 2017 Chronic pain G89.29 [place] [address] [address] Dec, Type 2 diabetes mellitus with diabetic neuropathy, unspecified E11.40 ; Hypertension I10 ; Hyperlipemia E78.5 ; Gastro-esophageal reflux disease without esophagitis K21.9 ; Anxiety associated with depression F41.8 ; Allergic rhinitis J30.9 ; Neuropathy G62.9 and Dependence on nocturnal oxygen therapy Z99.81 [place] [address] [place] [id number] [place] [address] Dec, [facility] [address] [address] Dec, [facility] [address] [address] 09 Dec, 2016 Encounter for immunization Z23 [place] [address] [address] 05 Dec, 2016 Type 2 diabetes mellitus with diabetic neuropathy, unspecified E11.40 and Chronic pain G89.29 [place] [address] [address] 11 Nov, 2016 Gastro-esophageal reflux disease without esophagitis K21.9 [place] [address] [address] 11 Nov, 2016 Peripheral edema R60.9 and Chest pain in adult R07.9 [place] [address] [address] 07 Nov, 2016 Chronic pain G89.29 [place] [address] [address] 31 Oct, 2016 [place] [address] [address] 30 Oct, 2016 [place] [address] [address] 17 Oct, 2016 Rheumatoid arthritis with rheumatoid factor of right wrist without organ or systems involvement M05.731 [place] [address] [address] 15 Oct, 2016 [facility] [address] [address] 14 Oct, 2016 Acute exacerbation of chronic obstructive pulmonary disease (COPD) J44.1 and Canker sore K12.0 [place] [address] [address] Oct, [facility] [address] [place] [address] Oct, [facility] [address] [place] [id number] [place] [address] Oct, Chronic pain G89.29 [facility] [address] [place] [id number] [place] [id number] Oct, Dental examination Z01.20 [facility] [address] [address] [id number] [place] [address] Oct, Dental examination Z01.20 and Periodontitis K05.30 [facility] [address] [id number] Oct, Dental examination Z01.20 [facility] [address] [id number] [place] [address] Sep, Abscess L02.91 [facility] [address] [place] [id number] [place] [address] Sep, Dental examination Z01.20 [facility] [address] [id number] [place] [address] Sep, [facility] [address] [place] [address] [id number] [place] [id number] Sep, Dental examination Z01.20 and Dental caries K02.9 [facility] [address] [id number] [place] [address] Sep, Primary insomnia F51.01 and Anxiety associated with depression F41.8 [facility] [address] [id number] [place] [address] Sep, Rheumatoid arthritis with rheumatoid factor of right wrist without organ or systems involvement M05.731 [facility] [address] [place] [id number] [place] [address] Sep, Chronic pain G89.29 [facility] [address] [address] Sep, Type 2 diabetes mellitus with diabetic neuropathy, unspecified E11.40 ; Emphysema, unspecified J43.9 ; Gastro-esophageal reflux disease without esophagitis K21.9 ; Hypertension I10 ; Hyperlipemia E78.5 ; Anxiety associated with depression F41.8 ; Chronic pain G89.29 ; Vitamin D deficiency E55.9 and Primary insomnia F51.01 [place] [address] [place] [id number] [place] [address] 16 Aug, 2016 Anxiety associated with depression F41.8 [place] [address] [address] Aug, Chronic pain G89.29 and Neuropathy G62.9 [place] [address] [address] Aug, Type 2 diabetes mellitus with diabetic neuropathy, unspecified E11.40 ; Rheumatoid arthritis involving multiple sites with positive rheumatoid factor M05.79 ; Vitamin D deficiency E55.9 ; Anxiety associated with depression F41.8 and Primary insomnia F51.01 [place] [address] [address] July, Emphysema, unspecified J43.9 [place] [address] [place] [id number] [place] [address] July, Allergic rhinitis J30.9 [place] [address] [place] [id number] [place] [address] July, Allergic rhinitis J30.9 ; Emphysema, unspecified J43.9 and Rheumatoid arthritis with rheumatoid factor of right wrist without organ or systems involvement M05.731 [place] [address] [place] [id number] [place] [address] July, Neuropathy G62.9 and Chronic pain G89.29 [place] [address] [place] [id number] [place] [address] July, Rheumatoid arthritis involving multiple sites with positive rheumatoid factor M05.79 [place] [address] [place] [address] [address] Jun, [place] [address] [place] [id number] [place] [address] Jun, Neuropathy G62.9 and Chronic pain G89.29 [place] [address] [place] [id number] [place] [address] May, Neuropathy G62.9 and Chronic pain G89.29 [place] [address] [place] [id number] [place] [address] May, [place] [address] [place] [id number] [place] [address] May, [place] [address] [place] [id number] [place] [address] May, Type 2 diabetes mellitus with diabetic [...] system involvement with positive rheumatoid factor M05.732 [place] [address] [place] [id number] [place] [address] Apr, Chronic pain G89.29 [place] [address] [place] [id number] [place] [address] Mar, Gastro-esophageal reflux disease without esophagitis K21.9 [place] [address] [place] [id number] [place] [address] Mar, [place] [address] [id number] [place] [address] Mar, Rheumatoid arthritis with rheumatoid factor of right wrist without organ or systems involvement M05.731 [place] [address] [place] [address] Mar, Chronic pain G89.29 [place] [address] [id number] [place] [address] Feb, Hyperlipemia E78.5 [place] [address] [id number] [place] [address] Feb, Abnormal breath sounds R06.89 ; COPD with exacerbation J44.1 and Fatigue, unspecified type R53.83 [place] [address] [place] [id number] [place] [address] Feb, Neuropathy G62.9 ; Abnormal lung sounds R09.89 and Bronchitis J40 [facility] [id number] [place] [address] Feb, Bronchitis J40 [place] [address] [id number] [place] [address] Feb, Chronic pain G89.29 [place] [address] [id number] [place] [address] Jan, Type 2 diabetes mellitus with diabetic neuropathy, unspecified E11.40 ; Rheumatoid arthritis with rheumatoid factor of right wrist without organ or systems involvement M05.731 and Hyperlipemia E78.5 [place] [address] [place] [address] Jan, Rheumatoid arthritis with rheumatoid factor of right wrist without organ or systems involvement M05.731 [place] [address] [place] [address] 17 Jan, 2016 De Quervain's disease (radial styloid tenosynovitis) M65.4 ; Closed nondisplaced fracture of scaphoid of left wrist, unspecified portion of scaphoid, initial encounter S62.002A and Peripheral tear of medial meniscus of left knee, unspecified whether old or current tear, initial encounter S83.222A [place] [address] [id number] [place] [address] Jan, Hypertension I10 ; Type 2 diabetes mellitus with diabetic neuropathy, unspecified E11.40 ; Hyperlipemia E78.5 ; Allergic rhinitis J30.9 ; Neuropathy G62.9 ; Rheumatoid arthritis with rheumatoid factor of right wrist without organ or systems involvement M05.731 ; Acute non-recurrent maxillary sinusitis J01.00 and Chronic pain G89.[address] [address] Dec, [address] [address] Dec, [address] [address] Dec, Type 2 diabetes mellitus with diabetic neuropathy, unspecified E11.40 ; Emphysema, unspecified J43.9 ; Gastro-esophageal reflux disease without esophagitis K21.9 ; Hypertension I10 ; Hyperlipemia E78.5 ; Rheumatoid arthritis with rheumatoid factor of right wrist without organ or systems involvement M05.731 ; Elevated white blood cell count, unspecified D72.829 ; Acute non- recurrent frontal sinusitis J01.10 and Chronic pain G89.[address] [address] Nov, [address] [address] Nov, Elevated white blood cell count, unspecified D72.829 ; Encounter for immunization Z23 ; Rheumatoid arthritis with rheumatoid factor of right wrist without organ or systems involvement M05.731 ; Injury of left hand S69.92XA ; Pain in left knee M25.562 and Other chronic pain G89.[address] [address] Nov, [address] [address] Nov, [address] [place] [address] Oct, [facility] [id number] [place] [phone] Oct, Hyperlipemia E78.5 [facility] [id number] [place] [id number] Oct, [facility] [id number] [place] [id number] Oct, Type 2 diabetes mellitus with diabetic neuropathy, unspecified E11.40 ; Neuropathy G62.9 ; Hypertension I10 ; Chronic pain G89.29 and Hyperlipemia E78.5 [facility] [id number] [place] [phone] Oct, Emphysema, unspecified J43.9 and Rheumatoid arthritis of left wrist without organ or system involvement with positive rheumatoid factor M05.732 [facility] [id number] [place] [phone] Sep, Chronic pain syndrome G89.4 [facility] [place] [id number] [place] [address] Sep, [place] [id number] [place] [address] Sep, [place] [id number] [place] [address] Sep, Closed nondisplaced fracture of scaphoid of left wrist, unspecified portion of scaphoid, initial encounter S62.002A [place] [id number] [place] [address] Sep, Type 2 diabetes mellitus with diabetic neuropathy, unspecified E11.40 ; Hypertension I10 ; Hyperlipemia E78.5 and Acute non-recurrent maxillary sinusitis J01.00 [place] [id number] [place] [address] Sep, [place] [id number] [address] Sep, [facility] [id number] [place] [address] Sep, [facility] [id number] [place] [address] Sep, [facility] [id number] [place] [address] Aug, Epigastric pain R10.13 and Right upper quadrant pain R10.11 [place] [id number] [place] [address] Aug, Closed nondisplaced fracture of scaphoid of left wrist, unspecified portion of scaphoid, initial encounter S62.002A [place] [id number] [place] [address] Aug, [facility] [id number] [place] [address] Aug, [facility] [id number] [place] [address] Aug, Shortness of breath R06.02 ; Epigastric pain R10.13 and Injury of left lower arm, initial encounter S59.912A [place] [address] [place] [address] Aug, Coronary artery disease involving chickaloon heart with angina pectoris, unspecified vessel or lesion type I25.119 ; Pulmonary emphysema, unspecified emphysema type J43.9 and Snoring R06.83 [place] [address] [place] [address] Aug, [place] [id number] [place] [address] Aug, Emphysema, unspecified J43.9 ; Atherosclerotic heart disease of chickal[place] coronary artery without angina pectoris I25.10 and Hypertension I10 [place] [id number] [place] [address] July, [place] [address] [place] [address] July, Closed nondisplaced fracture of scaphoid of left wrist, unspecified portion of scaphoid, initial encounter S62.002A [place] [address] [address] July, [place] [id number] [place] [address] July, Type 2 diabetes mellitus with diabetic neuropathy, unspecified E11.40 ; Emphysema, unspecified J43.9 ; Atherosclerotic heart disease of [place] coronary artery without angina pectoris I25.10 ; [...] agents L24.89 and Hospital discharge follow-up Z09 [place] [id number] [place] [address] July, [place] [address] [place] [address] July, Type 2 diabetes mellitus with diabetic neuropathy, unspecified E11.40 [place] [address] [place] [address] July, Type 2 diabetes mellitus with diabetic neuropathy, unspecified E11.40 and Rheumatoid arthritis of left wrist without organ or system involvement with positive rheumatoid factor M05.732 [place] [address] [place] [address] July, [place] [id number] [place] [address] July, [place] [id number] [place] [address] Jun, [facility] [address] [address] Jun, [facility] [id number] [place] [address] Jun, 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 [facility] [address], [place] [address] Jun, [facility] [id number] [place] [address] Jun, 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 [place] [id number] [place] [address] Jun, [place] [id number] [place] [address] Jun, [place] [id number] [place] [address] Jun, Encounter for PPD test Z11.1 ; Rheumatoid arthritis with rheumatoid factor of right wrist without organ or systems involvement M05.731 and Rheumatoid arthritis of left wrist without organ or system involvement with positive rheumatoid factor M05.732 [place] [address] [place] [address] Jun, Type 2 diabetes mellitus with diabetic neuropathy, unspecified E11.40 [place] [address] [place] [address] May, Type 2 diabetes mellitus with diabetic neuropathy, unspecified E11.40 ; Emphysema, unspecified J43.9 ; Rheumatoid arthritis with rheumatoid factor of right wrist without organ or systems involvement M05.731 ; Rheumatoid arthritis of left wrist without organ or system involvement with positive rheumatoid factor M05.732 and Chronic pain G89.29 [place] [address] [address] May, [place] [address] [place] [address] May, Swelling of hand joint M25.449 ; Ankle swelling M25.473 and Joint pain M25.50 [place] [id number] [place] [address] May, Emphysema, unspecified J43.9 [place] [id number] [place] [address] May, Gastroenteritis K52.9 and Hypertension I10 [place] [id number] [place] [address] Apr, [place] [id number] [place] [address] Apr, [place] [id number] [place] [address] Apr, [place] [id number] [place] [address] Apr, Type 2 diabetes mellitus with diabetic neuropathy, unspecified E11.40 ; Emphysema, unspecified J43.9 ; Atherosclerotic heart disease of [place]al[place] coronary artery without angina pectoris I25.10 ; Migraine without aura, not intractable, with status migrainosus G43.001 ; Gastro-esophageal reflux disease without esophagitis K21.9 ; CAD (coronary artery disease) I25.10 ; Hypertension I10 ; Hyperlipemia E78.5 ; Allergic rhinitis J30.9 ; Neuropathy G62.9 ; Anxiety associated with depression F41.8 and Injury of left hand S69.92XA [place] [address] [place] [address] Apr, [place] [address] [place] [address] Apr, [place] [id number] [place] [address] Apr, Type 2 diabetes mellitus with diabetic neuropathy, unspecified E11.40 ; Emphysema, unspecified J43.9 ; Essential (primary) hypertension I10 ; Atherosclerotic heart disease of chickal[place] coronary artery without angina pectoris I25.10 ; Gastro-esophageal reflux disease without esophagitis K21.9 ; CAD (coronary artery disease) I25.10 ; Hyperlipemia E78.5 ; Hypertension I10 ; History of solitary pulmonary nodule Z87.898 ; Allergic rhinitis J30.9 ; Chronic pain G89.29 and Depression with anxiety F41.8 [place] [address] [address] Mar, [address] [address] Mar, Allergic rhinitis J30.9 ; URI (upper respiratory infection) J06.9 and Other viral agents as the cause of diseases classified elsewhere B97.89 [facility] [address] [place] [address] Feb, Acute nasopharyngitis [common cold] J00 and Acute diarrhea R19.[address] [address] Feb, Depression F32.[address] [address] 18 Jan, 2015 Otitis media, right H66.[address] [address] Jan, [address] [address] Jan, Type 2 diabetes mellitus with diabetic neuropathy, unspecified E11.40 [place] [id number] [place] [address] Jan, [address] [address] 05 Jan, 2015 Hyperlipemia E78.[address] [address] 03 Jan, 2015 Type 2 diabetes mellitus with diabetic neuropathy, unspecified E11.40 ; Emphysema, unspecified J43.9 ; CAD (coronary artery disease) I25.10 and Hyperlipemia E78.5 [place] [address] [address] Dec, Allergic rhinitis J30.9 and Fungal infection B49 [place] [address] [address] 16 Dec, 2014 [place] [address] [address] Dec, [place] [address] [address] Dec, Chest pain R07.9 ; CAD (coronary artery disease) I25.10 ; Hypertension I10 and Hyperlipemia E78.5 [place] [address] [address] Dec, Pain in thoracic spine M54.6 ; Gastro-esophageal reflux disease without esophagitis K21.9 ; Emphysema, unspecified J43.9 and Migraine without aura, not intractable, with status migrainosus G43.001 [place] [address] [address] Dec, [place] [address] [address] Nov, Influenza vaccine administered V04.81 [place] [address] [address] Nov, [place] [address] [address] Sep, [place] [address] [address] Sep, [place] [address] [address] Sep, CAD (coronary artery disease) 414.00 and Diabetes type 2, uncontrolled 250.02 [place] [address] [address] Sep, CAD (coronary artery disease) 414.00 ; Diabetes type 2, uncontrolled 250.02 and Migraine 346.90 IMMUNIZATIONS No Known Immunizations SOCIAL HISTORY Never Assessed REASON FOR VISIT Labs for Referral PLAN OF CARE VITAL SIGNS MEDICATIONS [...] unspecified Medical History Atherosclerotic heart disease of chickal[place] coronary artery without angina pectoris Medical History [...]
--- OUTSIDE RECORDS SUMMARY | 2018-08-23 17:44 | XMS REPORT ---
Author Author BRANDIN REYES [facility] Address [address] [place] [address] Care Team Providers Care Stripping [employer]utter [employer] Winder Name Role Phone BRANDIN REYES Unavailable PROBLEMS Type Condition ICD9-CM Code RVR80-UV Code Onset Dates Condition Status SNOMED Code Problem Other hammer toe(s) (acquired), left foot M20.42 Active 39095039 Problem Tobacco abuse Z72.0 Active 643556008 Problem Other hammer toe(s) (acquired), right foot M20.41 Active 126086142 Problem Acute rheumatoid arthritis M06.9 Active 41812473 Problem Emphysema, unspecified J43.9 Active 52990152 Problem Intractable migraine without status migrainosus, unspecified migraine type G43.919 Active 636765289 Problem Gastro-esophageal reflux disease without esophagitis K21.9 Active 927158960 Problem Hypertension I10 Active 12538736 Problem Atherosclerotic heart disease of [place] coronary artery without angina pectoris I25.10 Active 767616469950588 Problem Hammer toe of left foot M20.42 Active 908963851 Problem Elevated white blood cell count, unspecified D72.829 Active 959739652 Problem Other chronic pain G89.29 Active 15325345 Problem Anxiety associated with depression F41.8 Active 537784029 Problem Chronic pain G89.29 Active 17285057 Problem Type 2 diabetes mellitus with diabetic neuropathy, unspecified E11.40 Active 61439308 Problem Allergic rhinitis J30.9 Active 23269963 Problem Primary insomnia F51.01 Active 6448688 Problem Periodontitis K05.30 Active 27956278 Problem Vitamin D deficiency E55.9 Active 55182456 Problem OAB (overactive bladder) N32.81 Active 873895688 Problem Dependence on nocturnal oxygen therapy Z99.81 Active 04579323841817 Problem Hyperlipemia E78.5 Active 01357627 Problem Rheumatoid arthritis involving multiple sites with positive rheumatoid factor M05.79 Active 217521766 Problem Neuropathy G62.9 Active 657100413 ALLERGIES No Information ENCOUNTERS Encounter Location Date Diagnosis [place] [address], [place] [address] Jan, [place] [address], [place] [address] Dec, Rheumatoid arthritis involving multiple sites with positive rheumatoid factor M05.79 [place] [address] [place] [id number] [place] [address] Dec, Rheumatoid arthritis involving multiple sites with positive rheumatoid factor M05.79 [place] [address] [place] [id number] [place] [address] Dec, Rheumatoid arthritis involving multiple sites with positive rheumatoid factor M05.79 and Need for hepatitis C screening test Z11.59 [place] [address] [place] [id number] [place] [address] Dec, Acute rheumatoid arthritis M06.9 [place] [address] [place] [id number] [place] [address] Dec, [place] [address] [place] [id number] [place] [address] Dec, Type 2 diabetes mellitus with diabetic neuropathy, unspecified E11.40 and Neuropathy G62.9 [place] [address] [place] [address] Dec, Chronic pain G89.29 [place] [address] [place] [id number] [place] [address] 24 Nov, 2017 Type 2 diabetes mellitus with diabetic neuropathy, unspecified E11.40 ; Neuropathy G62.9 ; Hypertension I10 ; Dependence on nocturnal oxygen therapy Z99.81 ; Emphysema, unspecified J43.9 and Encounter for immunization Z23 [place] [address] [place] [address] 07 Nov, 2017 Chronic pain G89.29 [place] [address] [place] [id number] [place] [address] Nov, Chronic pain G89.29 [facility] [address] [place] [address] [id number] [place] [address] Oct, Dysuria R30.0 ; Intractable migraine without status migrainosus, unspecified migraine type G43.919 and Back pain at L4-L5 level M54.5 [facility], [place] [address] [place] [id number] [place] [address] Oct, Orthostatic hypotension I95.1 [facility] [place] [address] [id number] [place] [address] Oct, Localized swelling of both lower legs R22.43 ; Onychomycosis B35.1 and Type 2 diabetes mellitus with diabetic neuropathy, unspecified E11.40 [facility], [place] [address] [place] [id number] [place] [address] Oct, [facility] [place] [address] [place] [id number] [place] [address] Oct, Elevated white blood cell count, unspecified D72.829 [facility] [place] [address] [place] [id number] [place] [address] Oct, Elevated white blood cell count, unspecified D72.829 [facility] [place] [address] [place] [id number] [place] [address] Oct, Chronic pain G89.29 [facility] [place] [address] [id number] [place] [address] Oct, [facility], [place] [address] [id number] [place] [address] Oct, [facility], [place] [address] [place] [id number] [place] [address] Oct, Orthostatic hypotension I95.1 ; Dizziness R42 and Neuropathy G62.9 [facility] [address] [place] [id number] [place] [address] Oct, Dizziness R42 ; Low back pain M54.5 ; Other chronic pain G89.29 ; Nausea R11.0 and Orthostatic hypotension I95.1 [place] [address] [place] [id number] [place] [address] Sep, Rheumatoid arthritis involving multiple sites with positive rheumatoid factor M05.79 and Tobacco abuse Z72.0 [place] [address] [place] [id number] [place] [address] Sep, Chronic pain G89.29 [place] [address] [address] Aug, Type 2 diabetes mellitus with diabetic neuropathy, unspecified E11.40 ; Hypertension I10 ; Hyperlipemia E78.5 ; Gastro-esophageal reflux disease without esophagitis K21.9 ; Emphysema, unspecified J43.9 ; Anxiety associated with depression F41.8 ; Vitamin D deficiency E55.9 ; Chronic pain G89.29 ; Tobacco abuse Z72.0 ; Overweight (BMI 25.0-29.9) E66.3 ; Atherosclerotic heart disease of [place] coronary artery without angina pectoris I25.10 ; OAB (overactive bladder) N32.81 and Primary insomnia F51.01 [place] [address] [place] [id number] [place] [address] July, [place] [address] [place] [id number] [place] [address] July, [place] [address] [place] [id number] [place] [address] July, Chronic pain G89.29 [place] [address] [place] [id number] [place] [address] July, [place] [address] [address] July, Onychomycosis B35.1 ; Hammer toe of left foot M20.42 and Type 2 diabetes mellitus with diabetic neuropathy, unspecified E11.40 [place] [address] [place] [id number] [place] [address] July, [facility], [place] [address] [place] [address] July, Chronic pain G89.29 and Neuropathy G62.9 [facility] [place] [address] [place] [id number] [place] [address] July, [facility] [place] [address] [place] [id number] [place] [address] July, [facility] [place] [address] [place] [id number] [place] [address] Jun, [facility] [place] [address] [place] [id number] [place] [address] Jun, Chronic pain G89.29 [facility] [place] [address] [place] [address] [id number] [place] [address] Jun, [facility] [place] [address] [place] [id number] [place] [address] Jun, [facility] [place] [address] [place] [address] [id number] [place] [address] Jun, Visit for TB skin test Z11.1 [facility], [place] [address] [place] [id number] [place] [address] Jun, [facility] [place] [address] [place] [address] [id number] [place] [address] Jun, [facility] [place] [address] [place] [address] [id number] [place] [address] Jun, Tobacco abuse Z72.0 and Rheumatoid arthritis involving multiple sites with positive rheumatoid factor M05.79 [facility] [place] [address] [place] [id number] [place] [address] Jun, Anxiety F41.9 ; Acute non-recurrent maxillary sinusitis J01.00 and Chronic pain G89.29 [facility] [place] [address] [place] [address] Jun, [facility], [place] [address], [place] [address] May, Rheumatoid arthritis involving multiple sites with positive rheumatoid factor M05.79 [place] [address] [place] [id number] [place] [address] May, Chronic pain G89.29 [place] [address] [place] [address] May, [place] [address] [place] [id number] [place] [address] May, [place] [address] [place] [id number] [place] [address] May, [place] [address] [place] [id number] [place] [address] May, Type 2 diabetes mellitus with diabetic neuropathy, unspecified E11.40 [place] [id number] [place] [address] May, Type 2 diabetes mellitus with diabetic [...] reflux disease without esophagitis K21.9 [place] [address] [place] [address] Apr, Chronic pain G89.29 [address] [place] [address] 16 Apr, 2017 Other hammer toe(s) (acquired), left foot M20.42 ; Other hammer toe(s) (acquired), right foot M20.41 ; Type 2 diabetes mellitus with diabetic neuropathy, unspecified E11.40 and Onychomycosis B35.1 [place] [address] [place] [id number] [place] [address] 2017 Gastro-esophageal reflux disease without esophagitis K21.9 [place] [address] [place] [id number] [place] [address] 02 Apr, 2017 Controlled substance agreement signed Z79.899 [facility], [place] [address] [place] [id number] [place] [address] Mar, Chronic pain G89.29 [place] [address] [place] [id number] [place] [address] Mar, Emphysema, unspecified J43.9 and Type 2 diabetes mellitus with diabetic neuropathy, unspecified E11.40 [facility] [address] [place] [id number] [place] [address] Mar, Dysuria R30.0 ; Vaginal candidiasis B37.3 and Acute nonintractable headache, unspecified headache type R51 [place] [address] [place] [id number] [place] [address] Feb, Neuropathy G62.9 and Chronic pain G89.29 [place] [address] [place] [id number] [place] [address] Feb, Gastro-esophageal reflux disease without esophagitis K21.9 [place] [address] [place] [id number] [place] [address] Feb, [place] [address] [place] [id number] [place] [address] Feb, Rheumatoid arthritis involving multiple sites with positive rheumatoid factor M05.79 and COPD with acute exacerbation J44.1 [place] [address] [place] [id number] [place] [address] Feb, Vaginal odor N89.8 ; Vaginal irritation N89.8 ; Candidal dermatitis B37.2 and Screening breast examination Z12.31 [place] [address] [place] [id number] [place] [address] Feb, [place] [address] [address] Feb, [facility], [place] [address] [address] Feb, [place] [address] [place] [id number] Feb, COPD with exacerbation J44.1 ; Tobacco abuse counseling Z71.6 ; Tobacco abuse Z72.0 ; Rheumatoid arthritis involving multiple sites with positive rheumatoid factor M05.79 and Hyperlipemia E78.5 [place] [address] [address] Feb, [facility] [address] [id number] Jan, [place] [address] [address] Jan, Chronic pain G89.29 [facility] [address] [id number] Jan, Dental examination Z01.20 [facility] [address] [address] Jan, Back pain of lumbar region with sciatica M54.40 [facility] [address] [place] [address] 15 Jan, 2017 Acute bacterial conjunctivitis of both eyes H10.33 [place] [address] [address] 02 Jan, 2017 Chronic pain G89.29 [place] [address] [address] Dec, Type 2 diabetes mellitus with diabetic neuropathy, unspecified E11.40 ; Hypertension I10 ; Hyperlipemia E78.5 ; Gastro-esophageal reflux disease without esophagitis K21.9 ; Anxiety associated with depression F41.8 ; Allergic rhinitis J30.9 ; Neuropathy G62.9 and Dependence on nocturnal oxygen therapy Z99.81 [place] [address] [place] [id number] [place] [address] Dec, [facility], [place] [address] [address] Dec, [facility] [place] [address] [address] 09 Dec, 2016 Encounter for immunization Z23 [place] [address] [address] 05 Dec, 2016 Type 2 diabetes mellitus with diabetic neuropathy, unspecified E11.40 and Chronic pain G89.29 [place] [address] [address] 11 Nov, 2016 Gastro-esophageal reflux disease without esophagitis K21.9 [place] [address] [address] 11 Nov, 2016 Peripheral edema R60.9 and Chest pain in adult R07.9 [place] [address] [address] 07 Nov, 2016 Chronic pain G89.29 [place] [address] [address] 31 Oct, 2016 [place] [address] [address] 30 Oct, 2016 [place] [address] [address] 17 Oct, 2016 Rheumatoid arthritis with rheumatoid factor of right wrist without organ or systems involvement M05.731 [place] [address] [address] 15 Oct, 2016 [facility] [address] [address] 14 Oct, 2016 Acute exacerbation of chronic obstructive pulmonary disease (COPD) J44.1 and Canker sore K12.0 [place] [address] [address] Oct, [facility], [place] [address] [place] [address] Oct, [facility] [place] [address] [place] [id number] [place] [address] Oct, Chronic pain G89.29 [facility] [address] [id number] [place] [id number] Oct, Dental examination Z01.20 [facility] [place] [address] [place] [id number] [place] [address] Oct, Dental examination Z01.20 and Periodontitis K05.30 [facility] [address] [id number] Oct, Dental examination Z01.20 [facility] [address] [place] [id number] [place] [address] Sep, Abscess L02.91 [facility] [place] [address] [place] [id number] [place] [address] Sep, Dental examination Z01.20 [facility] [place] [address] [place] [id number] [place] [address] Sep, [facility] [address] [id number] [place] [id number] Sep, Dental examination Z01.20 and Dental caries K02.9 [facility] [place] [address] [place] [id number] [place] [address] Sep, Primary insomnia F51.01 and Anxiety associated with depression F41.8 [facility] [place] [address] [place] [id number] [place] [address] Sep, Rheumatoid arthritis with rheumatoid factor of right wrist without organ or systems involvement M05.731 [facility] [place] [address] [place] [id number] [place] [address] Sep, Chronic pain G89.29 [facility] [place] [address] [address] Sep, Type 2 diabetes mellitus with diabetic neuropathy, unspecified E11.40 ; Emphysema, unspecified J43.9 ; Gastro-esophageal reflux disease without esophagitis K21.9 ; Hypertension I10 ; Hyperlipemia E78.5 ; Anxiety associated with depression F41.8 ; Chronic pain G89.29 ; Vitamin D deficiency E55.9 and Primary insomnia F51.01 [place] [address] [place] [id number] [place] [address] 16 Aug, 2016 Anxiety associated with depression F41.8 [place] [address] [address] Aug, Chronic pain G89.29 and Neuropathy G62.9 [place] [address] [address] Aug, Type 2 diabetes mellitus with diabetic neuropathy, unspecified E11.40 ; Rheumatoid arthritis involving multiple sites with positive rheumatoid factor M05.79 ; Vitamin D deficiency E55.9 ; Anxiety associated with depression F41.8 and Primary insomnia F51.01 [place] [address] [address] July, Emphysema, unspecified J43.9 [place] [address] [place] [id number] [place] [address] July, Allergic rhinitis J30.9 [place] [address] [place] [id number] [place] [address] July, Allergic rhinitis J30.9 ; Emphysema, unspecified J43.9 and Rheumatoid arthritis with rheumatoid factor of right wrist without organ or systems involvement M05.731 [place] [address] [place] [id number] [place] [address] July, Neuropathy G62.9 and Chronic pain G89.29 [place] [address] [place] [id number] [place] [address] July, Rheumatoid arthritis involving multiple sites with positive rheumatoid factor M05.79 [place] [address] [place] [address] Jun, [place] [address] [place] [id number] [place] [address] Jun, Neuropathy G62.9 and Chronic pain G89.29 [place] [address] [place] [id number] [place] [address] May, Neuropathy G62.9 and Chronic pain G89.29 [place] [address] [place] [id number] [place] [address] May, [place] [address] [place] [id number] [place] [address] May, [place] [address] [place] [id number] [place] [address] May, Type 2 diabetes mellitus with diabetic [...] with positive rheumatoid factor M05.732 [place] [address] [place] [id number] [place] [address] Apr, Chronic pain G89.29 [place] [address] [place] [id number] [place] [address] Mar, Gastro-esophageal reflux disease without esophagitis K21.9 [place] [address] [place] [id number] [place] [address] Mar, [place] [address] [place] [id number] [place] [address] Mar, Rheumatoid arthritis with rheumatoid factor of right wrist without organ or systems involvement M05.731 [place] [address] [place] [address] Mar, Chronic pain G89.29 [place] [address] [place] [id number] [place] [address] Feb, Hyperlipemia E78.5 [place] [address] [place] [id number] [place] [address] Feb, Abnormal breath sounds R06.89 ; COPD with exacerbation J44.1 and Fatigue, unspecified type R53.83 [place] [address] [place] [id number] [place] [address] Feb, Neuropathy G62.9 ; Abnormal lung sounds R09.89 and Bronchitis J40 [facility] [id number] [place] [address] Feb, Bronchitis J40 [place] [address] [place] [id number] [place] [address] Feb, Chronic pain G89.29 [place] [address] [place] [id number] [place] [address] Jan, Type 2 diabetes mellitus with diabetic neuropathy, unspecified E11.40 ; Rheumatoid arthritis with rheumatoid factor of right wrist without organ or systems involvement M05.731 and Hyperlipemia E78.5 [place] [address] [place] [address] Jan, Rheumatoid arthritis with rheumatoid factor of right wrist without organ or systems involvement M05.731 [place] [address] [place] [address] 17 Jan, 2016 De Quervain's disease (radial styloid tenosynovitis) M65.4 ; Closed nondisplaced fracture of scaphoid of left wrist, unspecified portion of scaphoid, initial encounter S62.002A and Peripheral tear of medial meniscus of left knee, unspecified whether old or current tear, initial encounter S83.222A [place] [address] [place] [id number] [place] [address] Jan, Hypertension I10 ; Type 2 diabetes mellitus with diabetic neuropathy, unspecified E11.40 ; Hyperlipemia E78.5 ; Allergic rhinitis J30.9 ; Neuropathy G62.9 ; Rheumatoid arthritis with rheumatoid factor of right wrist without organ or systems involvement M05.731 ; Acute non-recurrent maxillary sinusitis J01.00 and Chronic pain G89.[address] [address] Dec, [address] [address] Dec, [address] [address] Dec, Type 2 diabetes mellitus with diabetic neuropathy, unspecified E11.40 ; Emphysema, unspecified J43.9 ; Gastro-esophageal reflux disease without esophagitis K21.9 ; Hypertension I10 ; Hyperlipemia E78.5 ; Rheumatoid arthritis with rheumatoid factor of right wrist without organ or systems involvement M05.731 ; Elevated white blood cell count, unspecified D72.829 ; Acute non- recurrent frontal sinusitis J01.10 and Chronic pain G89.[address] [address] Nov, [address] [address] Nov, Elevated white blood cell count, unspecified D72.829 ; Encounter for immunization Z23 ; Rheumatoid arthritis with rheumatoid factor of right wrist without organ or systems involvement M05.731 ; Injury of left hand S69.92XA ; Pain in left knee M25.562 and Other chronic pain G89.[address] [address] Nov, [address] [address] Nov, [address] [place] [address] Oct, [facility] [place] [address] [place] [id number] [place] [address] Oct, Hyperlipemia E78.5 [facility] [place] [id number] [place] [id number] Oct, [place] [facility] [id number] [place] [id number] Oct, Type 2 diabetes mellitus with diabetic neuropathy, unspecified E11.40 ; Neuropathy G62.9 ; Hypertension I10 ; Chronic pain G89.29 and Hyperlipemia E78.5 [place] [id number] [place] [id number] Oct, Emphysema, unspecified J43.9 and Rheumatoid arthritis of left wrist without organ or system involvement with positive rheumatoid factor M05.732 [place] [id number] [place] [id number] Sep, Chronic pain syndrome G89.4 [place] [id number] [place] [id number] Sep, [place] [id number] [place] [id number] Sep, [place] [id number] [place] [address] Sep, Closed nondisplaced fracture of scaphoid of left wrist, unspecified portion of scaphoid, initial encounter S62.002A [place] [id number] [place] [address] Sep, Type 2 diabetes mellitus with diabetic neuropathy, unspecified E11.40 ; Hypertension I10 ; Hyperlipemia E78.5 and Acute non-recurrent maxillary sinusitis J01.00 [place] [address] [place] [id number] [place] [address] Sep, [place] [address] [place] [id number] [address] Sep, [facility], [place] [id number] [place] [address] Sep, [facility], [place] [address] [place] [id number] [place] [address] Sep, [facility], [place] [id number] [place] [address] Aug, Epigastric pain R10.13 and Right upper quadrant pain R10.11 [place] [address] [place] [id number] [place] [address] Aug, Closed nondisplaced fracture of scaphoid of left wrist, unspecified portion of scaphoid, initial encounter S62.002A [place] [address] [place] [id number] [place] [address] Aug, [facility], [place] [address] [place] [id number] [place] [address] Aug, [facility] [id number] [place] [address] Aug, Shortness of breath R06.02 ; Epigastric pain R10.13 and Injury of left lower arm, initial encounter S59.912A [place] [id number] [place] [address] Aug, Coronary artery disease involving [place] heart with angina pectoris, unspecified vessel or lesion type I25.119 ; Pulmonary emphysema, unspecified emphysema type J43.9 and Snoring R06.83 [place] [id number] [place] [address] Aug, [place] [address] [place] [id number] [place] [address] Aug, Emphysema, unspecified J43.9 ; Atherosclerotic heart disease of [place] coronary artery without angina pectoris I25.10 and Hypertension I10 [place] [address] [place] [id number] [place] [address] July, [place] [id number] [place] [address] July, Closed nondisplaced fracture of scaphoid of left wrist, unspecified portion of scaphoid, initial encounter S62.002A [place] [id number] [address] July, [place] [address] [place] [id number] [place] [address] July, Type 2 diabetes mellitus with diabetic neuropathy, unspecified E11.40 ; Emphysema, unspecified J43.9 ; Atherosclerotic heart disease of [place] coronary artery without angina pectoris I25.10 ; [...] and Hospital discharge follow-up Z09 [place] [id number] [place] [address] July, [place] [id number] [place] [address] July, Type 2 diabetes mellitus with diabetic neuropathy, unspecified E11.40 [place] [address] [place] [address] July, Type 2 diabetes mellitus with diabetic neuropathy, unspecified E11.40 and Rheumatoid arthritis of left wrist without organ or system involvement with positive rheumatoid factor M05.732 [place] [id number] [place] [address] July, [place] [id number] [place] [address] July, [place] [id number] [place] [address] Jun, [facility], [place] [id number] [address] Jun, [facility], [place] [id number] [place] [address] Jun, 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 [facility], [place] [id number] [address] Jun, [facility], [place] [address] [place] [id number] [place] [address] Jun, 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 [place] [address] [place] [id number] [place] [address] Jun, [place] [id number] [place] [address] Jun, [place] [address] [place] [id number] [place] [address] Jun, Encounter for PPD test Z11.1 ; Rheumatoid arthritis with rheumatoid factor of right wrist without organ or systems involvement M05.731 and Rheumatoid arthritis of left wrist without organ or system involvement with positive rheumatoid factor M05.732 [place] [address] [place] [address] Jun, Type 2 diabetes mellitus with diabetic neuropathy, unspecified E11.40 [place] [address] [place] [address] May, Type 2 diabetes mellitus with diabetic neuropathy, unspecified E11.40 ; Emphysema, unspecified J43.9 ; Rheumatoid arthritis with rheumatoid factor of right wrist without organ or systems involvement M05.731 ; Rheumatoid arthritis of left wrist without organ or system involvement with positive rheumatoid factor M05.732 and Chronic pain G89.29 [place] [id number] [address] May, [place] [id number] [place] [address] May, Swelling of hand joint M25.449 ; Ankle swelling M25.473 and Joint pain M25.50 [place] [address] [place] [id number] [place] [address] May, Emphysema, unspecified J43.9 [place] [address] [place] [id number] [place] [address] May, Gastroenteritis K52.9 and Hypertension I10 [place] [address] [place] [id number] [place] [address] Apr, [place] [address] [place] [id number] [place] [address] Apr, [place] [address] [place] [id number] [place] [address] Apr, [place] [address] [place] [id number] [place] [address] Apr, Type 2 diabetes mellitus with diabetic neuropathy, unspecified E11.40 ; Emphysema, unspecified J43.9 ; Atherosclerotic heart disease of [place] coronary artery without angina pectoris I25.10 ; Migraine without aura, not intractable, with status migrainosus G43.001 ; Gastro-esophageal reflux disease without esophagitis K21.9 ; CAD (coronary artery disease) I25.10 ; Hypertension I10 ; Hyperlipemia E78.5 ; Allergic rhinitis J30.9 ; Neuropathy G62.9 ; Anxiety associated with depression F41.8 and Injury of left hand S69.92XA [place] [id number] [place] [address] Apr, [place] [id number] [place] [address] Apr, [place] [address] [place] [id number] [place] [address] Apr, Type 2 diabetes mellitus with diabetic neuropathy, unspecified E11.40 ; Emphysema, unspecified J43.9 ; Essential (primary) hypertension I10 ; Atherosclerotic heart disease of [place] coronary artery without angina pectoris I25.10 ; Gastro-esophageal reflux disease without esophagitis K21.9 ; CAD (coronary artery disease) I25.10 ; Hyperlipemia E78.5 ; Hypertension I10 ; History of solitary pulmonary nodule Z87.898 ; Allergic rhinitis J30.9 ; Chronic pain G89.29 and Depression with anxiety F41.8 [place] [address] [address] Mar, [address] [address] Mar, Allergic rhinitis J30.9 ; URI (upper respiratory infection) J06.9 and Other viral agents as the cause of diseases classified elsewhere B97.89 [facility] [address] [place] [address] Feb, Acute nasopharyngitis [common cold] J00 and Acute diarrhea R19.[address] [address] Feb, Depression F32.[address] [address] 18 Jan, 2015 Otitis media, right H66.[address] [address] Jan, [address] [address] Jan, Type 2 diabetes mellitus with diabetic neuropathy, unspecified E11.40 [place] [address] [place] [id number] [place] [address] Jan, [address] [address] 05 Jan, 2015 Hyperlipemia E78.[address] [address] 03 Jan, 2015 Type 2 diabetes mellitus with diabetic neuropathy, unspecified E11.40 ; Emphysema, unspecified J43.9 ; CAD (coronary artery disease) I25.10 and Hyperlipemia E78.5 [place] [address] [address] Dec, Allergic rhinitis J30.9 and Fungal infection B49 [place] [address] [address] 16 Dec, 2014 [place] [address] [address] Dec, [place] [address] [address] Dec, Chest pain R07.9 ; CAD (coronary artery disease) I25.10 ; Hypertension I10 and Hyperlipemia E78.5 [place] [address] [address] Dec, Pain in thoracic spine M54.6 ; Gastro-esophageal reflux disease without esophagitis K21.9 ; Emphysema, unspecified J43.9 and Migraine without aura, not intractable, with status migrainosus G43.001 [place] [address] [address] Dec, [place] [address] [address] Nov, Influenza vaccine administered V04.81 [place] [address] [address] Nov, [place] [address] [address] Sep, [place] [address] [address] Sep, [place] [address] [address] Sep, CAD (coronary artery disease) 414.00 and Diabetes type 2, uncontrolled 250.02 [place] [address] [address] Sep, CAD (coronary artery disease) 414.00 ; Diabetes type 2, uncontrolled 250.02 and Migraine 346.90 IMMUNIZATIONS No Known Immunizations SOCIAL HISTORY Never Assessed REASON FOR VISIT Lab PLAN OF CARE Activity Details Pending Test ANTINUCLEAR ANTIBODIES TITER AND PATTERN Pending Test DIFFERENTIAL, MANUAL Pending Test CMP Pending Test CBC w/MANUAL DIFF Pending Test CRP Pending Test RA (RHEUMATOID) FACTOR Pending Test CCP ANTIBODY Pending Test [employer] VITAL SIGNS MEDICATIONS Unknown Medications RESULTS No Results PROCEDURES Procedure Date Ordered Result Body Site LAB NOT BILLED BY [employer] Jan 12, 2018 INSTRUCTIONS MEDICATIONS ADMINISTERED No Known Medications MEDICAL [...] unspecified Medical History Atherosclerotic heart disease of [place] coronary artery without angina pectoris Medical History [...]
[2018-08-23] MEDS ORDERED: HYDROcodone/APAP 7.5 MG/325 MG (LORTAB, LORCET PLUS) TABLET PO PRN (17:45)
--- OUTSIDE RECORDS SUMMARY | 2018-08-23 17:45 | XMS REPORT ---
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 Name Role Phone BRANDIN REYES Unavailable PROBLEMS Type Condition ICD9-CM Code QKH98-RP Code Onset Dates Condition Status SNOMED Code Problem Other hammer toe(s) (acquired), left foot M20.42 Active 64489805 Problem Tobacco abuse Z72.0 Active 451417488 Problem Other hammer toe(s) (acquired), right foot M20.41 Active 969724902 Problem Acute rheumatoid arthritis M06.9 Active 07644571 Problem Emphysema, unspecified J43.9 Active 72720635 Problem Intractable migraine without status migrainosus, unspecified migraine type G43.919 Active 142977083 Problem Gastro-esophageal reflux disease without esophagitis K21.9 Active 351374749 Problem Hypertension I10 Active 85026975 Problem Atherosclerotic heart disease of [place] coronary artery without angina pectoris I25.10 Active 123082341418195 Problem Hammer toe of left foot M20.42 Active 566258102 Problem Elevated white blood cell count, unspecified D72.829 Active 718196742 Problem Other chronic pain G89.29 Active 71100377 Problem Anxiety associated with depression F41.8 Active 802781203 Problem Chronic pain G89.29 Active 20887184 Problem Type 2 diabetes mellitus with diabetic neuropathy, unspecified E11.40 Active 26147304 Problem Allergic rhinitis J30.9 Active 05375239 Problem Primary insomnia F51.01 Active 4925677 Problem Periodontitis K05.30 Active 98710218 Problem Vitamin D deficiency E55.9 Active 54222774 Problem OAB (overactive bladder) N32.81 Active 589554449 Problem Dependence on nocturnal oxygen therapy Z99.81 Active 10420258677410 Problem Hyperlipemia E78.5 Active 48752204 Problem Rheumatoid arthritis involving multiple sites with positive rheumatoid factor M05.79 Active 545762505 Problem Neuropathy G62.9 Active 445040232 ALLERGIES No Information ENCOUNTERS Encounter Location Date Diagnosis [place] [id number] [place] [address] Jan, [facility] [place] [id number] [place] [address] Dec, Acute rheumatoid arthritis M06.9 [place] [id number] [place] [address] Dec, [place] [id number] [place] [address] Dec, Type 2 diabetes mellitus with diabetic neuropathy, unspecified E11.40 and Neuropathy G62.9 [place] [id number] [place] [address] Dec, Chronic pain G89.29 [place] [id number] [place] [address] Nov, Type 2 diabetes mellitus with diabetic neuropathy, unspecified E11.40 ; Neuropathy G62.9 ; Hypertension I10 ; Dependence on nocturnal oxygen therapy Z99.81 ; Emphysema, unspecified J43.9 and Encounter for immunization Z23 [place] [id number] [place] [address] Nov, Chronic pain G89.29 [place] [id number] [place] [address] Nov, Chronic pain G89.29 [facility] [id number] [place] [address] Oct, Dysuria R30.0 ; Intractable migraine without status migrainosus, unspecified migraine type G43.919 and Back pain at L4-L5 level M54.5 [facility] [place] [id number] [place] [address] Oct, Orthostatic hypotension I95.1 [place] [id number] [place] [address] Oct, Localized swelling of both lower legs R22.43 ; Onychomycosis B35.1 and Type 2 diabetes mellitus with diabetic neuropathy, unspecified E11.40 [place] [id number] [place] [address] Oct, [place] [id number] [place] [address] Oct, Elevated white blood cell count, unspecified D72.829 [place] [id number] [place] [address] Oct, Elevated white blood cell count, unspecified D72.829 [place] [id number] [place] [address] Oct, Chronic pain G89.29 [place] [id number] [place] [address] Oct, [place] [id number] [place] [address] Oct, [place] [id number] [place] [address] Oct, Orthostatic hypotension I95.1 ; Dizziness R42 and Neuropathy G62.9 [facility] [id number] [place] [address] Oct, Dizziness R42 ; Low back pain M54.5 ; Other chronic pain G89.29 ; Nausea R11.0 and Orthostatic hypotension I95.1 [place] [id number] [place] [address] Sep, Rheumatoid arthritis involving multiple sites with positive rheumatoid factor M05.79 and Tobacco abuse Z72.0 [place] [id number] [place] [address] Sep, Chronic pain G89.29 [place] [id number] [place] [address] Aug, Type 2 diabetes mellitus with diabetic [...] (overactive bladder) N32.81 and Primary insomnia F51.01 [place] [address] [address] July, [place] [address] [address] July, [place] [address] [address] July, Chronic pain G89.29 [place] [address] [address] July, [place] [address] [address] July, Onychomycosis B35.1 ; Hammer toe of left foot M20.42 and Type 2 diabetes mellitus with diabetic neuropathy, unspecified E11.40 [place] [id number] [place] [address] July, [place] [address] [address] July, Chronic pain G89.29 and Neuropathy G62.9 [place] [address] [address] July, [facility] [place] [address] [address] July, [place] [address] [address] Jun, [facility] [place] [address] [address] Jun, Chronic pain G89.29 [facility] [place] [address] [address] Jun, [facility] [place] [address] [address] Jun, [facility] [place] [id number] [place] [address] Jun, Visit for TB skin test Z11.1 [facility] [place] [id number] [place] [address] 16 Jun, 2017 [facility] [place] [id number] [place] [address] Jun, [facility] [place] [id number] [place] [address] Jun, Tobacco abuse Z72.0 and Rheumatoid arthritis involving multiple sites with positive rheumatoid factor M05.79 [facility] [place] [id number] [place] [address] Jun, Anxiety F41.9 ; Acute non-recurrent maxillary sinusitis J01.00 and Chronic pain G89.29 [facility] [place] [address] [address] Jun, [facility] [place] [address] [address] May, Rheumatoid arthritis involving multiple sites with positive rheumatoid factor M05.79 [facility] [place] [address] [address] May, Chronic pain G89.29 [facility] [place] [address] [address] May, [facility] [place] [address] [address] May, [facility] [place] [address] [address] May, [place] [id number] [place] [address] May, Type 2 diabetes mellitus with diabetic neuropathy, unspecified E11.40 [place] [id number] [place] [address] May, Type 2 diabetes mellitus with diabetic neuropathy, unspecified E11.40 ; Emphysema, unspecified J43.9 ; Hypertension I10 ; Hyperlipemia E78.5 ; Vitamin D deficiency E55.9 ; Right medial knee pain M25.561 ; Controlled substance agreement signed Z79.899 ; Chronic pain G89.29 ; Allergic rhinitis J30.9 ; Anxiety associated with depression F41.8 ; Neuropathy G62.9 and Gastro- esophageal reflux disease without esophagitis K21.9 [place] [id number] [place] [address] Apr, Chronic pain G89.29 [place] [id number] [place] [address] 16 Apr, 2017 Other hammer toe(s) (acquired), left foot M20.42 ; Other hammer toe(s) (acquired), right foot M20.41 ; Type 2 diabetes mellitus with diabetic neuropathy, unspecified E11.40 and Onychomycosis B35.1 [place] [address] [place] [address] 2017 Gastro-esophageal reflux disease without esophagitis K21.9 [place] [address] [place] [address] Apr, Controlled substance agreement signed Z79.899 [place] [id number] [place] [address] Mar, Chronic pain G89.29 [place] [id number] [place] [address] Mar, Emphysema, unspecified J43.9 and Type 2 diabetes mellitus with diabetic neuropathy, unspecified E11.40 [facility] [address] [place] [address] Mar, Dysuria R30.0 ; Vaginal candidiasis B37.3 and Acute nonintractable headache, unspecified headache type R51 [facility] [place] [id number] [place] [address] Feb, Neuropathy G62.9 and Chronic pain G89.29 [place] [id number] [place] [address] Feb, Gastro-esophageal reflux disease without esophagitis K21.9 [place] [address] [address] Feb, [place] [id number] [place] [address] Feb, Rheumatoid arthritis involving multiple sites with positive rheumatoid factor M05.79 and COPD with acute exacerbation J44.1 [place] [id number] [place] [address] 08 Feb, 2017 Vaginal odor N89.8 ; Vaginal irritation N89.8 ; Candidal dermatitis B37.2 and Screening breast examination Z12.31 [place] [id number] [place] [address] 06 Feb, 2017 [place] [id number] [place] [address] Feb, [place] [id number] [place] [address] Feb, [place] [address] [address] Feb, COPD with exacerbation J44.1 ; Tobacco abuse counseling Z71.6 ; Tobacco abuse Z72.0 ; Rheumatoid arthritis involving multiple sites with positive rheumatoid factor M05.79 and Hyperlipemia E78.5 [place] [address] [address] Feb, [facility] [id number] [place] [id number] Jan, [facility] [place] [id number] [place] [address] Jan, Chronic pain G89.29 [facility] [address] [place] [phone] Jan, Dental examination Z01.20 [facility] [id number] [place] [address] Jan, Back pain of lumbar region with sciatica M54.40 [facility] [id number] [place] [address] Jan, Acute bacterial conjunctivitis of both eyes H10.33 [place] [id number] [place] [address] Jan, Chronic pain G89.29 [place] [id number] [place] [address] Dec, Type 2 diabetes mellitus with diabetic neuropathy, unspecified E11.40 ; Hypertension I10 ; Hyperlipemia E78.5 ; Gastro-esophageal reflux disease without esophagitis K21.9 ; Anxiety associated with depression F41.8 ; Allergic rhinitis J30.9 ; Neuropathy G62.9 and Dependence on nocturnal oxygen therapy Z99.81 [place] [id number] [place] [address] Dec, [place] [id number] [place] [address] Dec, [place] [address] [address] Dec, Encounter for immunization Z23 [place] [id number] [place] [address] 05 Dec, 2016 Type 2 diabetes mellitus with diabetic neuropathy, unspecified E11.40 and Chronic pain G89.29 [facility] [place] [id number] [place] [address] 11 Nov, 2016 Gastro-esophageal reflux disease without esophagitis K21.9 [facility] [place] [id number] [place] [address] 11 Nov, 2016 Peripheral edema R60.9 and Chest pain in adult R07.9 [facility] [place] [address] [address] 07 Nov, 2016 Chronic pain G89.29 [facility] [place] [id number] [place] [address] 31 Oct, 2016 [facility] [place] [address] [address] 30 Oct, 2016 [facility] [place] [id number] [place] [address] 17 Oct, 2016 Rheumatoid arthritis with rheumatoid factor of right wrist without organ or systems involvement M05.731 [facility] [place] [id number] [place] [address] 15 Oct, 2016 [facility] [id number] [place] [address] 14 Oct, 2016 Acute exacerbation of chronic obstructive pulmonary disease (COPD) J44.1 and Canker sore K12.0 [facility] [place] [id number] [place] [address] 14 Oct, 2016 [facility] [place] [id number] [place] [address] 10 Oct, 2016 [facility] [place] [id number] [place] [address] 09 Oct, 2016 Chronic pain G89.29 [facility] [id number] [place] [id number] 08 Oct, 2016 Dental examination Z01.20 [facility] [place] [id number] [place] [address] 08 Oct, 2016 Dental examination Z01.20 and Periodontitis K05.30 [facility] [id number] [place] [id number] Oct, Dental examination Z01.20 [facility] [id number] [place] [address] Sep, Abscess L02.91 [facility] [place] [id number] [place] [address] Sep, Dental examination Z01.20 [facility] [place] [id number] [place] [address] Sep, [facility] [id number] [place] [id number] Sep, Dental examination Z01.20 and Dental caries K02.9 [facility] [place] [id number] [place] [address] Sep, Primary insomnia F51.01 and Anxiety associated with depression F41.8 [facility] [place] [id number] [place] [address] Sep, Rheumatoid arthritis with rheumatoid factor of right wrist without organ or systems involvement M05.731 [place] [id number] [place] [address] Sep, Chronic pain G89.29 [place] [id number] [place] [address] Sep, Type 2 diabetes mellitus with diabetic neuropathy, unspecified E11.40 ; Emphysema, unspecified J43.9 ; Gastro-esophageal reflux disease without esophagitis K21.9 ; Hypertension I10 ; Hyperlipemia E78.5 ; Anxiety associated with depression F41.8 ; Chronic pain G89.29 ; Vitamin D deficiency E55.9 and Primary insomnia F51.01 [facility] [place] [id number] [place] [address] Aug, Anxiety associated with depression F41.8 [place] [id number] [place] [address] Aug, Chronic pain G89.29 and Neuropathy G62.9 [place] [id number] [place] [address] Aug, Type 2 diabetes mellitus with diabetic neuropathy, unspecified E11.40 ; Rheumatoid arthritis involving multiple sites with positive rheumatoid factor M05.79 ; Vitamin D deficiency E55.9 ; Anxiety associated with depression F41.8 and Primary insomnia F51.01 [place] [address] [address] July, Emphysema, unspecified J43.9 [place] [address] [address] July, Allergic rhinitis J30.9 [place] [id number] [place] [address] July, Allergic rhinitis J30.9 ; Emphysema, unspecified J43.9 and Rheumatoid arthritis with rheumatoid factor of right wrist without organ or systems involvement M05.731 [place] [id number] [place] [address] July, Neuropathy G62.9 and Chronic pain G89.29 [place] [id number] [place] [address] July, Rheumatoid arthritis involving multiple sites with positive rheumatoid factor M05.79 [place] [id number] [place] [address] Jun, [place] [id number] [place] [address] Jun, Neuropathy G62.9 and Chronic pain G89.29 [place] [id number] [place] [address] May, Neuropathy G62.9 and Chronic pain G89.29 [place] [id number] [place] [address] May, [place] [address] [address] May, [address] [address] May, Type 2 diabetes mellitus with diabetic [...] system involvement with positive rheumatoid factor M05.[address] [address] Apr, Chronic pain G89.[address] [address] Mar, Gastro-esophageal reflux disease without esophagitis K21.[address] [address] Mar, [address] [address] Mar, Rheumatoid arthritis with rheumatoid factor of right wrist without organ or systems involvement M05.731 [place] [id number] [place] [address] Mar, Chronic pain G89.[address] [address] Feb, Hyperlipemia E78.[address] [address] Feb, Abnormal breath sounds R06.89 ; COPD with exacerbation J44.1 and Fatigue, unspecified type R53.83 [id number] [place] [address] Feb, Neuropathy G62.9 ; Abnormal lung sounds R09.89 and Bronchitis J40 [facility] [id number] [place] [address] Feb, Bronchitis J40 [facility] [place] [id number] [place] [address] Feb, Chronic pain G89.29 [place] [address] [address] Jan, Type 2 diabetes mellitus with diabetic neuropathy, unspecified E11.40 ; Rheumatoid arthritis with rheumatoid factor of right wrist without organ or systems involvement M05.731 and Hyperlipemia E78.5 [place] [id number] [place] [address] Jan, Rheumatoid arthritis with rheumatoid factor of right wrist without organ or systems involvement M05.731 [place] [id number] [place] [address] Jan, De Quervain's disease (radial styloid tenosynovitis) M65.4 ; Closed nondisplaced fracture of scaphoid of left wrist, unspecified portion of scaphoid, initial encounter S62.002A and Peripheral tear of medial meniscus of left knee, unspecified whether old or current tear, initial encounter S83.222A [place] [id number] [place] [address] Jan, Hypertension I10 ; Type 2 diabetes mellitus with diabetic neuropathy, unspecified E11.40 ; Hyperlipemia E78.5 ; Allergic rhinitis J30.9 ; Neuropathy G62.9 ; Rheumatoid arthritis with rheumatoid factor of right wrist without organ or systems involvement M05.731 ; Acute non-recurrent maxillary sinusitis J01.00 and Chronic pain G89.29 [place] [id number] [place] [address] Dec, [place] [address] [place] [address] Dec, [place] [id number] [place] [address] Dec, Type 2 diabetes mellitus with diabetic neuropathy, unspecified E11.40 ; Emphysema, unspecified J43.9 ; Gastro-esophageal reflux disease without esophagitis K21.9 ; Hypertension I10 ; Hyperlipemia E78.5 ; Rheumatoid arthritis with rheumatoid factor of right wrist without organ or systems involvement M05.731 ; Elevated white blood cell count, unspecified D72.829 ; Acute non- recurrent frontal sinusitis J01.10 and Chronic pain G89.29 [place] [address] [address] Nov, [place] [id number] [place] [address] Nov, Elevated white blood cell count, unspecified D72.829 ; Encounter for immunization Z23 ; Rheumatoid arthritis with rheumatoid factor of right wrist without organ or systems involvement M05.731 ; Injury of left hand S69.92XA ; Pain in left knee M25.562 and Other chronic pain G89.29 [place] [address] [address] Nov, [place] [address] [address] [place] [id number] [place] [id number] Nov, [place] [address] [address] [place] [id number] [place] [address] Oct, [place] [address] [address] [place] [id number] [place] [phone] Oct, Hyperlipemia E78.5 [place] [address] [address] [place] [id number] [place] [address] Oct, [place] [address] [address] [place] [id number] [place] [phone] Oct, Type 2 diabetes mellitus with diabetic neuropathy, unspecified E11.40 ; Neuropathy G62.9 ; Hypertension I10 ; Chronic pain G89.29 and Hyperlipemia E78.5 [place] [id number] [place] [address] Oct, Emphysema, unspecified J43.9 and Rheumatoid arthritis of left wrist without organ or system involvement with positive rheumatoid factor M05.732 [place] [address] [place] [id number] [place] [address] Sep, Chronic pain syndrome G89.4 [place] [address] [place] [id number] [place] [address] Sep, [place] [address] [place] [id number] [place] [address] Sep, [place] [address] [place] [id number] [place] [address] Sep, Closed nondisplaced fracture of scaphoid of left wrist, unspecified portion of scaphoid, initial encounter S62.002A [place] [address] [place] [id number] [place] [address] Sep, Type 2 diabetes mellitus with diabetic neuropathy, unspecified E11.40 ; Hypertension I10 ; Hyperlipemia E78.5 and Acute non-recurrent maxillary sinusitis J01.00 [place] [id number] [place] [address] Sep, [place] [address] [place] [id number] [place] [address] Sep, [place] [address] [place] [id number] [place] [address] Sep, [place] [address] [place] [id number] [place] [address] Sep, [place] [address] [place] [id number] [place] [address] Aug, Epigastric pain R10.13 and Right upper quadrant pain R10.11 [place] [address] [place] [id number] [place] [address] Aug, Closed nondisplaced fracture of scaphoid of left wrist, unspecified portion of scaphoid, initial encounter S62.002A [place] [id number] [place] [address] Aug, [place] [id number] [place] [address] Aug, [facility] [address] [place] [id number] [place] [address] Aug, Shortness of breath R06.02 ; Epigastric pain R10.13 and Injury of left lower arm, initial encounter S59.912A [place] [address] [place] [id number] [place] [address] Aug, Coronary artery disease involving [place] heart with angina pectoris, unspecified vessel or lesion type I25.119 ; Pulmonary emphysema, unspecified emphysema type J43.9 and Snoring R06.83 [place] [address] [place] [id number] [place] [address] Aug, [place] [address] [place] [id number] [place] [address] Aug, Emphysema, unspecified J43.9 ; Atherosclerotic heart disease of [place] coronary artery without angina pectoris I25.10 and Hypertension I10 [place] [address] [place] [address] July, [place] [address] [place] [id number] [place] [address] July, Closed nondisplaced fracture of scaphoid of left wrist, unspecified portion of scaphoid, initial encounter S62.002A [place] [id number] [place] [address] July, [place] [id number] [place] [address] July, Type 2 diabetes mellitus with diabetic [...] agents L24.89 and Hospital discharge follow-up Z09 [place] [address] [place] [id number] [place] [address] July, [place] [address] [place] [id number] [place] [address] July, Type 2 diabetes mellitus with diabetic neuropathy, unspecified E11.40 [place] [address] [place] [id number] [place] [address] July, Type 2 diabetes mellitus with diabetic neuropathy, unspecified E11.40 and Rheumatoid arthritis of left wrist without organ or system involvement with positive rheumatoid factor M05.732 [place] [address] [place] [id number] [place] [address] July, [place] [address] [place] [id number] [place] [address] July, [place] [address] [place] [id number] [place] [address] Jun, [place] [address] [place] [id number] [place] [address] Jun, [place] [address] [place] [id number] [place] [address] Jun, 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 [place] [address] [place] [id number] [place] [address] Jun, [place] [address] [place] [id number] [place] [address] Jun, 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 [place] [address] [address] 14 Jun, 2015 [place] [address] [place] [id number] [place] [address] Jun, [place] [address] [place] [address] Jun, Encounter for PPD test Z11.1 ; Rheumatoid arthritis with rheumatoid factor of right wrist without organ or systems involvement M05.731 and Rheumatoid arthritis of left wrist without organ or system involvement with positive rheumatoid factor M05.732 [place] [address] [place] [id number] [place] [address] Jun, Type 2 diabetes mellitus with diabetic neuropathy, unspecified E11.40 [place] [address] [place] [id number] [place] [address] May, Type 2 diabetes mellitus with diabetic neuropathy, unspecified E11.40 ; Emphysema, unspecified J43.9 ; Rheumatoid arthritis with rheumatoid factor of right wrist without organ or systems involvement M05.731 ; Rheumatoid arthritis of left wrist without organ or system involvement with positive rheumatoid factor M05.732 and Chronic pain G89.29 [place] [address] [place] [id number] [place] [address] May, [place] [address] [place] [id number] [place] [address] May, Swelling of hand joint M25.449 ; Ankle swelling M25.473 and Joint pain M25.50 [place] [address] [place] [address] May, Emphysema, unspecified J43.9 [place] [address] [place] [id number] [place] [address] May, Gastroenteritis K52.9 and Hypertension I10 [place] [address] [place] [id number] [place] [address] Apr, [place] [address] [place] [id number] [place] [address] Apr, [place] [address] [place] [id number] [place] [address] Apr, [place] [address] [place] [id number] [place] [address] Apr, Type 2 diabetes mellitus with diabetic [...] F41.8 and Injury of left hand S69.92XA [address] [address] Apr, [address] [address] Apr, [place] [id number] [place] [address] Apr, Type 2 diabetes mellitus with diabetic [...] and Depression with anxiety F41.8 [place] [id number] [place] [address] Mar, [place] [id number] [place] [address] Mar, Allergic rhinitis J30.9 ; URI (upper respiratory infection) J06.9 and Other viral agents as the cause of diseases classified elsewhere B97.89 [facility] [address] [address] Feb, Acute nasopharyngitis [common cold] J00 and Acute diarrhea R19.7 [place] [address] [address] Feb, Depression F32.9 [place] [address] [address] Jan, Otitis media, right H66.[address] [address] Jan, [place] [address] [address] Jan, Type 2 diabetes mellitus with diabetic neuropathy, unspecified E11.40 [place] [address] [address] Jan, [place] [address] [address] Jan, Hyperlipemia E78.5 [place] [address] [address] Jan, Type 2 diabetes mellitus with diabetic neuropathy, unspecified E11.40 ; Emphysema, unspecified J43.9 ; CAD (coronary artery disease) I25.10 and Hyperlipemia E78.5 [place] [address] [address] Dec, Allergic rhinitis J30.9 and Fungal infection B49 [place] [address] [address] Dec, [place] [address] [address] Dec, [place] [address] [address] Dec, Chest pain R07.9 ; CAD (coronary artery disease) I25.10 ; Hypertension I10 and Hyperlipemia E78.5 [place] [id number] [place] [address] Dec, Pain in thoracic spine M54.6 ; Gastro-esophageal reflux disease without esophagitis K21.9 ; Emphysema, unspecified J43.9 and Migraine without aura, not intractable, with status migrainosus G43.001 [place] [address] [place] [id number] [place] [address] Dec, [place] [address] [address] Nov, Influenza vaccine administered V04.81 [place] [address] [address] Nov, [place] [address] [address] Sep, [place] [address] [address] Sep, [address] [address] Sep, CAD (coronary artery disease) 414.00 and Diabetes type 2, uncontrolled 250.[address] [address] Sep, CAD (coronary artery disease) 414.00 ; Diabetes type 2, uncontrolled 250.02 and Migraine 346.90 IMMUNIZATIONS No Known Immunizations SOCIAL HISTORY Never Assessed REASON FOR VISIT Dr Steve Diez. [facility] RT(R) PLAN OF CARE Activity Details Pending Test Xray : Foot, Left 3 views (IN HOUSE) Pending Test Xray : Foot, Right 3 views (IN HOUSE) Pending Test Xray: Hands, Bilateral (IN HOUSE) VITAL SIGNS MEDICATIONS Unknown Medications RESULTS No Results PROCEDURES Procedure Date Ordered Result Body Site X-RAY EXAM OF HAND Dec 29, 2017 X-RAY EXAM OF FOOT Dec 29, 2017 INSTRUCTIONS MEDICATIONS ADMINISTERED No Known Medications [...]
--- OUTSIDE RECORDS SUMMARY | 2018-08-23 17:46 | XMS REPORT ---
Author Author BRANDIN REYES [facility] Address [address] [place] [address] Care Team Providers Care Cna Hha Name Role Phone BRANDIN REYES Unavailable PROBLEMS Type Condition ICD9-CM Code ZRI49-JF Code Onset Dates Condition Status SNOMED Code Problem Neuropathy G62.9 Active 229844408 Problem Other hammer toe(s) (acquired), right foot M20.41 Active 565320142 Problem Other hammer toe(s) (acquired), left foot M20.42 Active 96245582 Problem Anxiety F41.9 Active 74503623 Problem Type 2 diabetes mellitus with diabetic neuropathy, unspecified E11.40 Active 67698405 Problem Hammer toe of left foot M20.42 Active 971086595 Problem Hyperlipemia E78.5 Active 63903340 Problem Hypertension I10 Active 22476272 Problem COPD with exacerbation J44.1 Active 484845645870682 Problem Tobacco abuse Z72.0 Active 794969687 Problem COPD with acute exacerbation J44.1 Active 454706965 Problem Back pain of lumbar region with sciatica M54.40 Active 806524117 Problem Allergic rhinitis J30.9 Active 84294246 Problem Anxiety associated with depression F41.8 Active 987754623 Problem Gastro-esophageal reflux disease without esophagitis K21.9 Active 870582496 Problem Emphysema, unspecified J43.9 Active 49044274 Problem Rheumatoid arthritis involving multiple sites with positive rheumatoid factor M05.79 Active 827517220 Problem Primary insomnia F51.01 Active 7293282 Problem Chronic pain G89.29 Active 26704029 Problem Periodontitis K05.30 Active 24720683 Problem Vitamin D deficiency E55.9 Active 83790121 Problem OAB (overactive bladder) N32.81 Active 464142259 Problem Dependence on nocturnal oxygen therapy Z99.81 Active 48347601604717 ALLERGIES Substance Reaction Event Type Date Status Sulfamethoxazole-Trimethoprim itching Drug Allergy Feb, Active Singulair dizziness Drug Allergy Feb, Active ENCOUNTERS Encounter Location Date Diagnosis [facility] [id number] [address] Oct, [facility] [id number] [place] [address] Aug, [facility] [id number] [place] [address] July, [facility] [id number] [place] [address] July, [facility] [id number] [place] [address] July, Chronic pain G89.29 [facility] [id number] [place] [address] July, [facility] [id number] [place] [address] July, Onychomycosis B35.1 ; Hammer toe of left foot M20.42 and Type 2 diabetes mellitus with diabetic neuropathy, unspecified E11.40 [facility] [id number] [address] July, [facility] [id number] [place] [address] July, Chronic pain G89.29 and Neuropathy G62.9 [facility] [id number] [address] July, [facility] [address] [address] July, [facility] [id number] [place] [address] Jun, [facility] [id number] [place] [address] Jun, Chronic pain G89.29 [facility] [id number] [address] Jun, [facility] [id number] [place] [address] Jun, [facility] [id number] [place] [address] Jun, Visit for TB skin test Z11.1 [facility] [id number] [place] [address] Jun, [facility] [id number] [place] [address] Jun, [facility] [id number] [place] [address] Jun, Tobacco abuse Z72.0 and Rheumatoid arthritis involving multiple sites with positive rheumatoid factor M05.79 [facility] [id number] [place] [address] Jun, Anxiety F41.9 ; Acute non-recurrent maxillary sinusitis J01.00 and Chronic pain G89.29 [facility] [id number] [place] [address] Jun, [facility] [id number] [place] [address] May, Rheumatoid arthritis involving multiple sites with positive rheumatoid factor M05.79 [facility] [id number] [place] [address] May, Chronic pain G89.29 [facility] [address] [address] May, [facility] [id number] [place] [address] May, [facility] [address] [address] May, [facility] [id number] [place] [address] May, Type 2 diabetes mellitus with diabetic neuropathy, unspecified E11.40 [facility] [id number] [place] [address] May, Type 2 diabetes mellitus with diabetic neuropathy, unspecified E11.40 ; Emphysema, unspecified J43.9 ; Hypertension I10 ; Hyperlipemia E78.5 ; Vitamin D deficiency E55.9 ; Right medial knee pain M25.561 ; Controlled substance agreement signed Z79.899 ; Chronic pain G89.29 ; Allergic rhinitis J30.9 ; Anxiety associated with depression F41.8 ; Neuropathy G62.9 and Gastro- esophageal reflux disease without esophagitis K21.9 [facility] [address] [address] Apr, Chronic pain G89.29 [facility] [id number] [place] [address] 16 Apr, 2017 Other hammer toe(s) (acquired), left foot M20.42 ; Other hammer toe(s) (acquired), right foot M20.41 ; Type 2 diabetes mellitus with diabetic neuropathy, unspecified E11.40 and Onychomycosis B35.1 [facility] [id number] [place] [address] 2017 Gastro-esophageal reflux disease without esophagitis K21.9 [facility] [id number] [place] [address] Apr, Controlled substance agreement signed Z79.899 [facility] [id number] [place] [address] Mar, Chronic pain G89.29 [facility] [address] [address] Mar, Emphysema, unspecified J43.9 and Type 2 diabetes mellitus with diabetic neuropathy, unspecified E11.40 [facility] [id number] [place] [address] Mar, Dysuria R30.0 ; Vaginal candidiasis B37.3 and Acute nonintractable headache, unspecified headache type R51 [facility] [id number] [place] [address] Feb, Neuropathy G62.9 and Chronic pain G89.29 [facility] [id number] [place] [address] Feb, Gastro-esophageal reflux disease without esophagitis K21.9 [facility] [address] [address] 13 Feb, 2017 [place] [address] [address] Feb, Rheumatoid arthritis involving multiple sites with positive rheumatoid factor M05.79 and COPD with acute exacerbation J44.1 [facility] [id number] [place] [address] Feb, Vaginal odor N89.8 ; Vaginal irritation N89.8 ; Candidal dermatitis B37.2 and Screening breast examination Z12.31 [facility] [id number] [place] [address] Feb, [facility] [id number] [place] [address] Feb, [facility] [id number] [place] [address] Feb, [facility] [place] [address] [address] Feb, COPD with exacerbation J44.1 ; Tobacco abuse counseling Z71.6 ; Tobacco abuse Z72.0 ; Rheumatoid arthritis involving multiple sites with positive rheumatoid factor M05.79 and Hyperlipemia E78.5 [facility] [id number] [place] [address] Feb, [facility] [address] [place] [phone] Jan, [facility] [id number] [place] [address] 30 Jan, 2017 Chronic pain G89.29 [facility] [id number] [place] [phone] 27 Jan, 2017 Dental examination Z01.20 [facility] [id number] [place] [address] 19 Jan, 2017 Back pain of lumbar region with sciatica M54.40 [facility] [id number] [place] [address] 15 Jan, 2017 Acute bacterial conjunctivitis of both eyes H10.33 [facility] [address] [address] 02 Jan, 2017 Chronic pain G89.29 [facility] [id number] [place] [address] Dec, Type 2 diabetes mellitus with diabetic neuropathy, unspecified E11.40 ; Hypertension I10 ; Hyperlipemia E78.5 ; Gastro-esophageal reflux disease without esophagitis K21.9 ; Anxiety associated with depression F41.8 ; Allergic rhinitis J30.9 ; Neuropathy G62.9 and Dependence on nocturnal oxygen therapy Z99.81 [facility] [id number] [place] [address] Dec, [facility] [id number] [place] [address] Dec, [facility] [id number] [place] [address] Dec, Encounter for immunization Z23 [facility] [id number] [place] [address] 05 Dec, 2016 Type 2 diabetes mellitus with diabetic neuropathy, unspecified E11.40 and Chronic pain G89.29 [facility] [id number] [place] [address] 11 Nov, 2016 Gastro-esophageal reflux disease without esophagitis K21.9 [facility] [id number] [place] [address] 11 Nov, 2016 Peripheral edema R60.9 and Chest pain in adult R07.9 [facility] [id number] [place] [address] 07 Nov, 2016 Chronic pain G89.29 [facility] [id number] [place] [address] 31 Oct, 2016 [facility] [id number] [place] [address] Oct, [facility] [id number] [place] [address] 17 Oct, 2016 Rheumatoid arthritis with rheumatoid factor of right wrist without organ or systems involvement M05.731 [facility] [id number] [place] [address] 15 Oct, 2016 [facility] [place] [id number] [place] [address] Oct, Acute exacerbation of chronic obstructive pulmonary disease (COPD) J44.1 and Canker sore K12.0 [facility] [id number] [place] [address] Oct, [facility] [id number] [place] [address] Oct, [facility] [id number] [place] [address] Oct, Chronic pain G89.29 [facility] [id number] [place] [phone] Oct, Dental examination Z01.20 [facility] [id number] [place] [address] Oct, Dental examination Z01.20 and Periodontitis K05.30 [facility] [id number] [place] [phone] Oct, Dental examination Z01.20 [facility] [address], [place] [address] Sep, Abscess L02.91 [facility] [id number] [place] [address] Sep, Dental examination Z01.20 [facility] [id number] [place] [address] Sep, [facility] [id number] [place] [phone] Sep, Dental examination Z01.20 and Dental caries K02.9 [facility] [id number] [place] [address] Sep, Primary insomnia F51.01 and Anxiety associated with depression F41.8 [facility] [id number] [place] [address] Sep, Rheumatoid arthritis with rheumatoid factor of right wrist without organ or systems involvement M05.731 [facility] [id number] [place] [address] Sep, Chronic pain G89.29 [facility] [id number] [place] [address] Sep, Type 2 diabetes mellitus with diabetic neuropathy, unspecified E11.40 ; Emphysema, unspecified J43.9 ; Gastro-esophageal reflux disease without esophagitis K21.9 ; Hypertension I10 ; Hyperlipemia E78.5 ; Anxiety associated with depression F41.8 ; Chronic pain G89.29 ; Vitamin D deficiency E55.9 and Primary insomnia F51.01 [facility] [id number] [place] [address] 16 Aug, 2016 Anxiety associated with depression F41.8 [facility] [id number] [place] [address] Aug, Chronic pain G89.29 and Neuropathy G62.9 [facility] [id number] [place] [address] Aug, Type 2 diabetes mellitus with diabetic neuropathy, unspecified E11.40 ; Rheumatoid arthritis involving multiple sites with positive rheumatoid factor M05.79 ; Vitamin D deficiency E55.9 ; Anxiety associated with depression F41.8 and Primary insomnia F51.01 [facility] [id number] [address] July, Emphysema, unspecified J43.9 [facility] [id number] [place] [address] July, Allergic rhinitis J30.9 [facility] [id number] [place] [address] July, Allergic rhinitis J30.9 ; Emphysema, unspecified J43.9 and Rheumatoid arthritis with rheumatoid factor of right wrist without organ or systems involvement M05.731 [facility] [place] [id number] [place] [address] July, Neuropathy G62.9 and Chronic pain G89.29 [facility] [id number] [place] [address] July, Rheumatoid arthritis involving multiple sites with positive rheumatoid factor M05.79 [facility] [place] [id number] [place] [address] Jun, [facility] [id number] [address] Jun, Neuropathy G62.9 and Chronic pain G89.29 [facility] [address], [place] [address] May, Neuropathy G62.9 and Chronic pain G89.29 [facility] [id number] [place] [address] May, [facility] [id number] [place] [address] May, [facility] [id number] [place] [address] May, Type 2 diabetes mellitus with diabetic [...] system involvement with positive rheumatoid factor M05.732 [place] [address] [address] Apr, Chronic pain G89.29 [facility] [id number] [place] [address] Mar, Gastro-esophageal reflux disease without esophagitis K21.9 [place] [address] [address] Mar, [place] [address] [address] Mar, Rheumatoid arthritis with rheumatoid factor of right wrist without organ or systems involvement M05.731 [facility] [id number] [place] [address] Mar, Chronic pain G89.29 [facility] [place] [id number] [place] [address] Feb, Hyperlipemia E78.5 [facility] [id number] [place] [address] Feb, Abnormal breath sounds R06.89 ; COPD with exacerbation J44.1 and Fatigue, unspecified type R53.83 [place] [place] [id number] [place] [address] Feb, Neuropathy G62.9 ; Abnormal lung sounds R09.89 and Bronchitis J40 [facility] [id number] [place] [address] 18 Feb, 2016 Bronchitis J40 [facility] [place] [id number] [place] [address] 16 Feb, 2016 Chronic pain G89.29 [facility] [id number] [place] [address] Jan, Type 2 diabetes mellitus with diabetic neuropathy, unspecified E11.40 ; Rheumatoid arthritis with rheumatoid factor of right wrist without organ or systems involvement M05.731 and Hyperlipemia E78.5 [facility] [place] [id number] [place] [address] Jan, Rheumatoid arthritis with rheumatoid factor of right wrist without organ or systems involvement M05.731 [facility] [place] [id number] [place] [address] Jan, De Quervain's disease (radial styloid tenosynovitis) M65.4 ; Closed nondisplaced fracture of scaphoid of left wrist, unspecified portion of scaphoid, initial encounter S62.002A and Peripheral tear of medial meniscus of left knee, unspecified whether old or current tear, initial encounter S83.222A [facility] [place] [id number] [place] [address] Jan, Hypertension I10 ; Type 2 diabetes mellitus with diabetic neuropathy, unspecified E11.40 ; Hyperlipemia E78.5 ; Allergic rhinitis J30.9 ; Neuropathy G62.9 ; Rheumatoid arthritis with rheumatoid factor of right wrist without organ or systems involvement M05.731 ; Acute non-recurrent maxillary sinusitis J01.00 and Chronic pain G89.29 [place] [place] [id number] [place] [address] Dec, [facility] [id number] [place] [address] Dec, [facility] [place] [id number] [place] [address] Dec, Type 2 diabetes mellitus with diabetic neuropathy, unspecified E11.40 ; Emphysema, unspecified J43.9 ; Gastro-esophageal reflux disease without esophagitis K21.9 ; Hypertension I10 ; Hyperlipemia E78.5 ; Rheumatoid arthritis with rheumatoid factor of right wrist without organ or systems involvement M05.731 ; Elevated white blood cell count, unspecified D72.829 ; Acute non- recurrent frontal sinusitis J01.10 and Chronic pain G89.29 [place] [address] [address] Nov, [place] [address] [address] Nov, Elevated white blood cell count, unspecified D72.829 ; Encounter for immunization Z23 ; Rheumatoid arthritis with rheumatoid factor of right wrist without organ or systems involvement M05.731 ; Injury of left hand S69.92XA ; Pain in left knee M25.562 and Other chronic pain G89.29 [place] [address] [address] Nov, [place] [address] [address] Nov, [place] [address] [address] Oct, [place] [place] [id number] [place] [address] Oct, Hyperlipemia E78.5 [place] [address] [address] Oct, [place] [place] [id number] [place] [address] Oct, Type 2 diabetes mellitus with diabetic neuropathy, unspecified E11.40 ; Neuropathy G62.9 ; Hypertension I10 ; Chronic pain G89.29 and Hyperlipemia E78.5 [place] [address] [address] Oct, Emphysema, unspecified J43.9 and Rheumatoid arthritis of left wrist without organ or system involvement with positive rheumatoid factor M05.732 [place] [place] [id number] [place] [address] Sep, Chronic pain syndrome G89.4 [facility] [place] [id number] [place] [address] Sep, [place] [place] [id number] [place] [address] Sep, [place] [place] [id number] [place] [address] Sep, Closed nondisplaced fracture of scaphoid of left wrist, unspecified portion of scaphoid, initial encounter S62.002A [facility] [id number] [place] [address] Sep, Type 2 diabetes mellitus with diabetic neuropathy, unspecified E11.40 ; Hypertension I10 ; Hyperlipemia E78.5 and Acute non-recurrent maxillary sinusitis J01.00 [place] [id number] [place] [address] Sep, [place] [id number] [place] [address] Sep, [place] [id number] [place] [address] Sep, [place] [id number] [place] [address] Sep, [place] [id number] [place] [address] Aug, Epigastric pain R10.13 and Right upper quadrant pain R10.11 [place] [id number] [place] [address] Aug, Closed nondisplaced fracture of scaphoid of left wrist, unspecified portion of scaphoid, initial encounter S62.002A [place] [id number] [place] [address] Aug, [facility] [id number] [place] [address] Aug, [facility] [id number] [place] [address] Aug, Shortness of breath R06.02 ; Epigastric pain R10.13 and Injury of left lower arm, initial encounter S59.912A [facility] [id number] [place] [address] 07 Aug, 2015 Coronary artery disease involving wrangell heart with angina pectoris, unspecified vessel or lesion type I25.119 ; Pulmonary emphysema, unspecified emphysema type J43.9 and Snoring R06.83 [place] [id number] [place] [address] Aug, [place] [id number] [place] [address] Aug, Emphysema, unspecified J43.9 ; Atherosclerotic heart disease of wr[place] coronary artery without angina pectoris I25.10 and Hypertension I10 [facility] [id number] [place] [address] July, [place] [id number] [place] [address] July, Closed nondisplaced fracture of scaphoid of left wrist, unspecified portion of scaphoid, initial encounter S62.002A [facility] [address] [place] [address] July, [place] [id number] [place] [address] July, Type 2 diabetes mellitus with diabetic neuropathy, unspecified E11.40 ; Emphysema, unspecified J43.9 ; Atherosclerotic heart disease of [place] coronary artery without angina pectoris I25.10 ; [...] agents L24.89 and Hospital discharge follow-up Z09 [facility] [id number] [place] [id number] July, [facility] [id number] [place] [phone] July, Type 2 diabetes mellitus with diabetic neuropathy, unspecified E11.40 [place] [id number] [place] [phone] July, Type 2 diabetes mellitus with diabetic neuropathy, unspecified E11.40 and Rheumatoid arthritis of left wrist without organ or system involvement with positive rheumatoid factor M05.732 [place] [facility] [id number] [place] [id number] July, [facility] [id number] [place] [phone] July, [place] [id number] [place] [phone] Jun, [place] [id number] [place] [address] Jun, [place] [id number] [place] [address] Jun, 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 [place] [id number] [place] [phone] Jun, [facility] [id number] [place] [address] Jun, 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 [place] [id number] [place] [address] Jun, [facility] [id number] [place] [phone] Jun, [facility] [id number] [place] [phone] Jun, Encounter for PPD test Z11.1 ; Rheumatoid arthritis with rheumatoid factor of right wrist without organ or systems involvement M05.731 and Rheumatoid arthritis of left wrist without organ or system involvement with positive rheumatoid factor M05.732 [facility] [place] [id number] [place] [address] Jun, Type 2 diabetes mellitus with diabetic neuropathy, unspecified E11.40 [facility] [id number] [place] [address] May, Type 2 diabetes mellitus with diabetic neuropathy, unspecified E11.40 ; Emphysema, unspecified J43.9 ; Rheumatoid arthritis with rheumatoid factor of right wrist without organ or systems involvement M05.731 ; Rheumatoid arthritis of left wrist without organ or system involvement with positive rheumatoid factor M05.732 and Chronic pain G89.29 [facility] [place] [id number] [place] [address] May, [facility] [id number] [place] [address] May, Swelling of hand joint M25.449 ; Ankle swelling M25.473 and Joint pain M25.50 [facility] [id number] [place] [address] May, Emphysema, unspecified J43.9 [facility] [id number] [place] [address] May, Gastroenteritis K52.9 and Hypertension I10 [place] [address] [address] Apr, [facility] [id number] [place] [address] Apr, [facility] [id number] [place] [address] Apr, [place] [id number] [place] [address] Apr, Type 2 diabetes mellitus with diabetic neuropathy, unspecified E11.40 ; Emphysema, unspecified J43.9 ; Atherosclerotic heart disease of [place] coronary artery without angina pectoris I25.10 ; Migraine without aura, not intractable, with status migrainosus G43.001 ; Gastro-esophageal reflux disease without esophagitis K21.9 ; CAD (coronary artery disease) I25.10 ; Hypertension I10 ; Hyperlipemia E78.5 ; Allergic rhinitis J30.9 ; Neuropathy G62.9 ; Anxiety associated with depression F41.8 and Injury of left hand S69.92XA [address] [address] Apr, [address] [address] Apr, [address] [address] Apr, Type 2 diabetes mellitus with diabetic neuropathy, unspecified E11.40 ; Emphysema, unspecified J43.9 ; Essential (primary) hypertension I10 ; Atherosclerotic heart disease of [place] coronary artery without angina pectoris I25.10 ; Gastro-esophageal reflux disease without esophagitis K21.9 ; CAD (coronary artery disease) I25.10 ; Hyperlipemia E78.5 ; Hypertension I10 ; History of solitary pulmonary nodule Z87.898 ; Allergic rhinitis J30.9 ; Chronic pain G89.29 and Depression with anxiety F41.8 [place] [id number] [place] [address] Mar, [address] [address] Mar, Allergic rhinitis J30.9 ; URI (upper respiratory infection) J06.9 and Other viral agents as the cause of diseases classified elsewhere B97.89 [facility] [id number] [place] [phone] Feb, Acute nasopharyngitis [common cold] J00 and Acute diarrhea R19.7 [facility] [place] [id number] [place] [phone] Feb, Depression F32.9 [facility] [place] [id number] [place] [address] Jan, Otitis media, right H66.91 [place] [address] [address] Jan, [facility] [place] [id number] [place] [address] Jan, Type 2 diabetes mellitus with diabetic neuropathy, unspecified E11.40 [facility] [place] [id number] [place] [address] Jan, [place] [address] [address] Jan, Hyperlipemia E78.5 [facility] [place] [id number] [place] [address] Jan, Type 2 diabetes mellitus with diabetic neuropathy, unspecified E11.40 ; Emphysema, unspecified J43.9 ; CAD (coronary artery disease) I25.10 and Hyperlipemia E78.5 [facility] [place] [id number] [place] [address] Dec, Allergic rhinitis J30.9 and Fungal infection B49 [facility] [place] [id number] [place] [address] Dec, [place] [id number] [place] [address] Dec, [facility] [place] [id number] [place] [address] Dec, Chest pain R07.9 ; CAD (coronary artery disease) I25.10 ; Hypertension I10 and Hyperlipemia E78.5 [facility] [address] [place] [id number] [place] [address] Dec, Pain in thoracic spine M54.6 ; Gastro-esophageal reflux disease without esophagitis K21.9 ; Emphysema, unspecified J43.9 and Migraine without aura, not intractable, with status migrainosus G43.001 [facility] [id number] [place] [phone] Dec, [place] [address] [address] Nov, Influenza vaccine administered V04.81 [place] [address] [address] Nov, [place] [address] [address] Sep, [place] [address] [address] Sep, [place] [address] [address] Sep, CAD (coronary artery disease) 414.00 and Diabetes type 2, uncontrolled 250.02 [place] [address] [address] Sep, CAD (coronary artery disease) 414.00 ; Diabetes type 2, uncontrolled 250.02 and Migraine 346.90 IMMUNIZATIONS No Known Immunizations SOCIAL HISTORY Never Assessed REASON FOR VISIT RA--erinuppettCAYETANO PLAN OF CARE Activity Details Follow Up 3 Months Reason:RA VITAL SIGNS Height 66 in 2017-02-20 Weight 182.7 lbs 2017-02-20 Temperature 98.5 degrees Fahrenheit 2017-02-20 Heart Rate 90 bpm 2017-02-20 Respiratory Rate 18 2017-02-20 BMI 29.49 kg/m2 2017-02-20 Blood pressure systolic 118 mmHg 2017-02-20 Blood pressure diastolic 70 mmHg 2017-02-20 MEDICATIONS Medication Instructions Dosage Frequency Start Date End Date Duration Status Metformin HCl 1000 MG Orally 2 times a day TAKE ONE TABLET BY MOUTH TWICE DAILY WITH MEALS 12h 30 Active Mucinex 600 MG Orally every 12 hrs 1 tablet as needed 12h 05 Mar, 2015 Active Citalopram Hydrobromide 20 mg Orally Once a day 1 tablet 24h 30 Active Cetirizine HCl 10 Orally Once a day TAKE 1 TABLET BY MOUTH DAILY 24h Active Atorvastatin Calcium 10 mg Orally Once a day 1 tablet 24h Oct, 30 day(s) Active Nicotine 21 MG/24HR Transdermal Once a day 1 patch to skin 24h Feb, 30 day(s) Not-Taking Oxygen Active Lyrica 100 mg Orally Three times a day 1 capsule 8h Dec, 30 days Active Depend Adjustable Underwear Lg 1 as directed 3 times a day use one depends three times per day as needed 8h May, 12 months Active Hydrocodone-Acetaminophen 7.5-325 MG Orally every 6 hours as needed 1 tablet as needed Jan, 28 days Active Victoza 18 MG/3ML Subcutaneous Once a day 1.8mg 24h 30 Active Baclofen 10 MG TAKE ONE TABLET BY MOUTH THREE TIMES DAILY WITH FOOD OR MILK 90 Active Aspirin Adult Low Strength 81 MG Orally Once a day 1 tablet 24h 90 Active Trazodone HCl 50 mg Orally Once a day 1 tablet at bedtime as needed 24h 30 Active Albuterol Sulfate (2.5 MG/3ML) 0.083% Inhalation Three times a day 3 ml 8h 30 Active Qnasl 80 MCG/ACT Nasally Once a day 2 puffs in each nostril 24h July, 30 day(s) Active Fish Oil 1200 MG Orally Once a day 1 capsule 24h Active Aleve 220 MG Orally every 12 hrs 1 tablet 12h Not-Taking Ventolin HFA 108 (90 Base) MCG/ACT Inhalation every 4 hrs Needs appointment 2 puffs as needed 17 Active Methotrexate 2.5 MG Orally once weekly 8 TABLETS 90 days Active BusPIRone HCl 10 mg Orally TID PRN 1 tablet Dec, 30 days Active Quad Cane as directed May, Active Blood Glucose Monitor System w/Device as directed July, Active Metoprolol Tartrate 25 MG Orally Twice a day TAKE ONE TABLET BY MOUTH TWICE DAILY 12h 30 Active Protonix 40 mg Orally Once a day 1 tablet 24h Dec, 90 days Active Plaquenil 200 mg Orally Once a day 1 tablet with food or milk 24h 30 Active Blood Glucose Test Test Strips In Vitro 4 times a day test blood sugar 6h Jun, Active Symbicort 160-4.5 MCG/ACT Inhalation Twice a day Needs to make an appointment 2 puffs 30 Active Nystatin-Triamcinolone 323066-7.1 UNIT/GM Externally Twice a day apply thin layer to irritated abdominal areas 12h 17 Jul, 2015 Active Folic Acid 1 MG Orally Once a day 1 tablet 24h 90 Active Easy Touch Pen Orange 32G X 4 MM sq 4 times a day as directed 6h 27 Sep, 2014 90 days Active Lisinopril 20 mg Orally Once a day 1 tablet 24h 30 Active RESULTS No Results PROCEDURES Procedure Date Ordered Result Body Site NEBULIZER TREATMENT 2017-02-20 N/A EKG, TRACING (IN-HOUSE) 2017-02-20 Normal ELECTROCARDIOGRAM, TRACING Feb 20, 2017 [facility] Feb [facility], 2017 NEB/MDI RX INITIAL Feb 20, 2017 VENIPUNCT, ROUTINE* Feb 20, 2017 INSTRUCTIONS MEDICATIONS ADMINISTERED No Known Medications [...] unspecified Medical History Atherosclerotic heart disease of [place] coronary artery without angina pectoris Medical History [...]
--- OUTSIDE RECORDS SUMMARY | 2018-08-23 17:46 | XMS REPORT ---
Author Author PANCHOROBCLAU Organization [facility] Address [address] [place] [address] Care Team Providers Care E Commerce Marketing Analyst Name Role Phone DELEONCLAU Moran Unavailable PROBLEMS Type Condition ICD9-CM Code SNR61-HN Code Onset Dates Condition Status SNOMED Code Problem Dependence on nocturnal oxygen therapy Z99.81 Active 27680707784561 Problem Other hammer toe(s) (acquired), left foot M20.42 Active 15670788 Problem Neuropathy G62.9 Active 536755613 Problem Anxiety F41.9 Active 17593562 Problem Hyperlipemia E78.5 Active 18365269 Problem COPD with acute exacerbation J44.1 Active 199847458 Problem Hypertension I10 Active 77444243 Problem Vitamin D deficiency E55.9 Active 91210047 Problem Tobacco abuse Z72.0 Active 389067602 Problem Other hammer toe(s) (acquired), right foot M20.41 Active 154176089 Problem Back pain of lumbar region with sciatica M54.40 Active 275921362 Problem COPD with exacerbation J44.1 Active 495092321221827 Problem Emphysema, unspecified J43.9 Active 91005523 Problem Allergic rhinitis J30.9 Active 59925483 Problem Type 2 diabetes mellitus with diabetic neuropathy, unspecified E11.40 Active 85825448 Problem Gastro-esophageal reflux disease without esophagitis K21.9 Active 650034527 Problem OAB (overactive bladder) N32.81 Active 496855039 Problem Rheumatoid arthritis involving multiple sites with positive rheumatoid factor M05.79 Active 628867243 Problem Anxiety associated with depression F41.8 Active 507682785 Problem Primary insomnia F51.01 Active 3154041 Problem Chronic pain G89.29 Active 92938042 Problem Periodontitis K05.30 Active 90205789 ALLERGIES No Information ENCOUNTERS Encounter Location Date Diagnosis [facility] [address] [facility] [id number] [address] July, [facility] [address], [place] [address] Jun, Chronic pain G89.29 [facility] [id number] [place] [phone] Jun, [facility] [address], [place] [address] Jun, [facility] [id number] [place] [phone] Jun, Visit for TB skin test Z11.1 [facility] [id number] [place] [address] 16 Jun, 2017 [facility] [id number] [place] [address] Jun, [facility] [id number] [place] [phone] Jun, Tobacco abuse Z72.0 and Rheumatoid arthritis involving multiple sites with positive rheumatoid factor M05.79 [facility] [id number] [place] [address] Jun, Anxiety F41.9 ; Acute non-recurrent maxillary sinusitis J01.00 and Chronic pain G89.29 [facility] [address], [place] [address] Jun, [facility] [address], [place] [address] May, Rheumatoid arthritis involving multiple sites with positive rheumatoid factor M05.79 [facility] [address], [place] [address] May, Chronic pain G89.29 [facility] [address], [place] [address] May, [facility] [address], [place] [address] May, [facility] [id number] [place] [address] May, [place] [id number] [place] [address] May, Type 2 diabetes mellitus with diabetic neuropathy, unspecified E11.40 [place] [id number] [place] [address] May, Type 2 diabetes mellitus with diabetic neuropathy, unspecified E11.40 ; Emphysema, unspecified J43.9 ; Hypertension I10 ; Hyperlipemia E78.5 ; Vitamin D deficiency E55.9 ; Right medial knee pain M25.561 ; Controlled substance agreement signed Z79.899 ; Chronic pain G89.29 ; Allergic rhinitis J30.9 ; Anxiety associated with depression F41.8 ; Neuropathy G62.9 and Gastro- esophageal reflux disease without esophagitis K21.9 [place] [id number] [place] [address] Apr, Chronic pain G89.29 [place] [id number] [place] [address] 16 Apr, 2017 Other hammer toe(s) (acquired), left foot M20.42 ; Other hammer toe(s) (acquired), right foot M20.41 ; Type 2 diabetes mellitus with diabetic neuropathy, unspecified E11.40 and Onychomycosis B35.1 [place] [address] [id number] [place] [address] 2017 Gastro-esophageal reflux disease without esophagitis K21.9 [place] [id number] [place] [address] Apr, Controlled substance agreement signed Z79.899 [place] [id number] [place] [address] Mar, Chronic pain G89.29 [place] [id number] [place] [address] Mar, Emphysema, unspecified J43.9 and Type 2 diabetes mellitus with diabetic neuropathy, unspecified E11.40 [facility] [id number] [place] [address] Mar, Dysuria R30.0 ; Vaginal candidiasis B37.3 and Acute nonintractable headache, unspecified headache type R51 [facility] [id number] [place] [address] Feb, Neuropathy G62.9 and Chronic pain G89.29 [place] [address] [address] Feb, Gastro-esophageal reflux disease without esophagitis K21.9 [place] [address] [address] Feb, [place] [address] [address] Feb, Rheumatoid arthritis involving multiple sites with positive rheumatoid factor M05.79 and COPD with acute exacerbation J44.1 [place] [id number] [place] [address] 08 Feb, 2017 Vaginal odor N89.8 ; Vaginal irritation N89.8 ; Candidal dermatitis B37.2 and Screening breast examination Z12.31 [place] [id number] [place] [address] 06 Feb, 2017 [place] [id number] [place] [address] Feb, [place] [address] [id number] [place] [address] Feb, [place] [address] [address] Feb, COPD with exacerbation J44.1 ; Tobacco abuse counseling Z71.6 ; Tobacco abuse Z72.0 ; Rheumatoid arthritis involving multiple sites with positive rheumatoid factor M05.79 and Hyperlipemia E78.5 [place] [address] [address] Feb, [facility] [id number] [place] [phone] Jan, [facility] [id number] [place] [address] Jan, Chronic pain G89.29 [facility] [id number] [place] [phone] Jan, Dental examination Z01.20 [facility] [id number] [place] [address] Jan, Back pain of lumbar region with sciatica M54.40 [facility] [id number] [place] [address] Jan, Acute bacterial conjunctivitis of both eyes H10.33 [place] [address] [id number] [place] [address] Jan, Chronic pain G89.29 [place] [id number] [place] [address] Dec, Type 2 diabetes mellitus with diabetic neuropathy, unspecified E11.40 ; Hypertension I10 ; Hyperlipemia E78.5 ; Gastro-esophageal reflux disease without esophagitis K21.9 ; Anxiety associated with depression F41.8 ; Allergic rhinitis J30.9 ; Neuropathy G62.9 and Dependence on nocturnal oxygen therapy Z99.81 [place] [id number] [place] [address] Dec, [place] [id number] [place] [phone] Dec, [place] [id number] [place] [address] Dec, Encounter for immunization Z23 [place] [id number] [place] [address] 05 Dec, 2016 Type 2 diabetes mellitus with diabetic neuropathy, unspecified E11.40 and Chronic pain G89.29 [facility] [id number] [place] [address] 11 Nov, 2016 Gastro-esophageal reflux disease without esophagitis K21.9 [facility] [id number] [place] [address] 11 Nov, 2016 Peripheral edema R60.9 and Chest pain in adult R07.9 [facility] [id number] [place] [address] 07 Nov, 2016 Chronic pain G89.29 [facility] [id number] [place] [address] 31 Oct, 2016 [facility] [address] [address] 30 Oct, 2016 [facility] [id number] [place] [address] 17 Oct, 2016 Rheumatoid arthritis with rheumatoid factor of right wrist without organ or systems involvement M05.731 [facility] [id number] [place] [address] 15 Oct, 2016 [facility] [id number] [place] [address] 14 Oct, 2016 Acute exacerbation of chronic obstructive pulmonary disease (COPD) J44.1 and Canker sore K12.0 [facility] [id number] [place] [address] 14 Oct, 2016 [facility] [id number] [place] [address] 10 Oct, 2016 [facility] [id number] [place] [address] 09 Oct, 2016 Chronic pain G89.29 [facility] [id number] [place] [id number] 08 Oct, 2016 Dental examination Z01.20 [facility] [id number] [place] [address] Oct, Dental examination Z01.20 and Periodontitis K05.30 [facility] [id number] [place] [id number] Oct, Dental examination Z01.20 [facility] [id number] [place] [address] Sep, Abscess L02.91 [facility] [id number] [place] [address] Sep, Dental examination Z01.20 [facility] [id number] [place] [address] Sep, [facility] [id number] [place] [phone] Sep, Dental examination Z01.20 and Dental caries K02.9 [facility] [id number] [place] [address] Sep, Primary insomnia F51.01 and Anxiety associated with depression F41.8 [facility] [id number] [place] [address] Sep, Rheumatoid arthritis with rheumatoid factor of right wrist without organ or systems involvement M05.731 [place] [address] [id number] [place] [address] Sep, Chronic pain G89.29 [place] [id number] [place] [address] Sep, Type 2 diabetes mellitus with diabetic neuropathy, unspecified E11.40 ; Emphysema, unspecified J43.9 ; Gastro-esophageal reflux disease without esophagitis K21.9 ; Hypertension I10 ; Hyperlipemia E78.5 ; Anxiety associated with depression F41.8 ; Chronic pain G89.29 ; Vitamin D deficiency E55.9 and Primary insomnia F51.01 [place] [id number] [place] [address] Aug, Anxiety associated with depression F41.8 [place] [address] [id number] [place] [address] Aug, Chronic pain G89.29 and Neuropathy G62.9 [place] [address] [address] Aug, Type 2 diabetes mellitus with diabetic neuropathy, unspecified E11.40 ; Rheumatoid arthritis involving multiple sites with positive rheumatoid factor M05.79 ; Vitamin D deficiency E55.9 ; Anxiety associated with depression F41.8 and Primary insomnia F51.01 [place] [address] [address] July, Emphysema, unspecified J43.9 [place] [address] [address] July, Allergic rhinitis J30.9 [place] [address] [address] July, Allergic rhinitis J30.9 ; Emphysema, unspecified J43.9 and Rheumatoid arthritis with rheumatoid factor of right wrist without organ or systems involvement M05.731 [place] [id number] [place] [address] July, Neuropathy G62.9 and Chronic pain G89.29 [place] [address] [id number] [place] [address] July, Rheumatoid arthritis involving multiple sites with positive rheumatoid factor M05.79 [place] [id number] [place] [address] Jun, [place] [address] [id number] [place] [address] Jun, Neuropathy G62.9 and Chronic pain G89.29 [place] [address] [id number] [place] [address] May, Neuropathy G62.9 and Chronic pain G89.29 [place] [address] [id number] [place] [address] May, [place] [address] [id number] [place] [address] May, [address] [address] May, Type 2 diabetes mellitus with diabetic [...] system involvement with positive rheumatoid factor M05.[address] [address] Apr, Chronic pain G89.[address] [address] Mar, Gastro-esophageal reflux disease without esophagitis K21.[address] [address] Mar, [address] [address] Mar, Rheumatoid arthritis with rheumatoid factor of right wrist without organ or systems involvement M05.731 [place] [id number] [place] [address] Mar, Chronic pain G89.[address] [address] Feb, Hyperlipemia E78.[address] [address] Feb, Abnormal breath sounds R06.89 ; COPD with exacerbation J44.1 and Fatigue, unspecified type R53.[id number] [place] [address] Feb, Neuropathy G62.9 ; Abnormal lung sounds R09.89 and Bronchitis J40 [facility] [id number] [place] [address] Feb, Bronchitis J40 [facility] [id number] [place] [address] Feb, Chronic pain G89.29 [place] [address] [address] Jan, Type 2 diabetes mellitus with diabetic neuropathy, unspecified E11.40 ; Rheumatoid arthritis with rheumatoid factor of right wrist without organ or systems involvement M05.731 and Hyperlipemia E78.5 [place] [address] [address] Jan, Rheumatoid arthritis with rheumatoid factor of right wrist without organ or systems involvement M05.731 [place] [id number] [place] [address] Jan, De Quervain's disease (radial styloid tenosynovitis) M65.4 ; Closed nondisplaced fracture of scaphoid of left wrist, unspecified portion of scaphoid, initial encounter S62.002A and Peripheral tear of medial meniscus of left knee, unspecified whether old or current tear, initial encounter S83.222A [place] [id number] [place] [address] Jan, Hypertension I10 ; Type 2 diabetes mellitus with diabetic neuropathy, unspecified E11.40 ; Hyperlipemia E78.5 ; Allergic rhinitis J30.9 ; Neuropathy G62.9 ; Rheumatoid arthritis with rheumatoid factor of right wrist without organ or systems involvement M05.731 ; Acute non-recurrent maxillary sinusitis J01.00 and Chronic pain G89.29 [place] [id number] [place] [address] Dec, [place] [address] [place] [address] Dec, [place] [address] [address] Dec, Type 2 diabetes mellitus with diabetic neuropathy, unspecified E11.40 ; Emphysema, unspecified J43.9 ; Gastro-esophageal reflux disease without esophagitis K21.9 ; Hypertension I10 ; Hyperlipemia E78.5 ; Rheumatoid arthritis with rheumatoid factor of right wrist without organ or systems involvement M05.731 ; Elevated white blood cell count, unspecified D72.829 ; Acute non- recurrent frontal sinusitis J01.10 and Chronic pain G89.29 [place] [address] [address] Nov, [place] [address] [address] Nov, Elevated white blood cell count, unspecified D72.829 ; Encounter for immunization Z23 ; Rheumatoid arthritis with rheumatoid factor of right wrist without organ or systems involvement M05.731 ; Injury of left hand S69.92XA ; Pain in left knee M25.562 and Other chronic pain G89.29 [place] [address] [address] Nov, [place] [address] [address] Nov, [place] [address] [address] Oct, [place] [id number] [place] [address] Oct, Hyperlipemia E78.5 [place] [address] [address] Oct, [place] [address] [address] Oct, Type 2 diabetes mellitus with diabetic neuropathy, unspecified E11.40 ; Neuropathy G62.9 ; Hypertension I10 ; Chronic pain G89.29 and Hyperlipemia E78.5 [place] [id number] [place] [address] Oct, Emphysema, unspecified J43.9 and Rheumatoid arthritis of left wrist without organ or system involvement with positive rheumatoid factor M05.732 [place] [id number] [place] [address] Sep, Chronic pain syndrome G89.4 [place] [id number] [place] [address] Sep, [place] [id number] [place] [address] Sep, [place] [id number] [place] [address] Sep, Closed nondisplaced fracture of scaphoid of left wrist, unspecified portion of scaphoid, initial encounter S62.002A [place] [id number] [place] [address] Sep, Type 2 diabetes mellitus with diabetic neuropathy, unspecified E11.40 ; Hypertension I10 ; Hyperlipemia E78.5 and Acute non-recurrent maxillary sinusitis J01.00 [place] [address] [place] [address] Sep, [place] [id number] [place] [address] Sep, [place] [id number] [place] [address] Sep, [place] [id number] [place] [address] Sep, [place] [id number] [place] [address] Aug, Epigastric pain R10.13 and Right upper quadrant pain R10.11 [place] [id number] [place] [address] Aug, Closed nondisplaced fracture of scaphoid of left wrist, unspecified portion of scaphoid, initial encounter S62.002A [place] [id number] [place] [address] Aug, [place] [id number] [place] [address] Aug, [facility] [id number] [place] [address] Aug, Shortness of breath R06.02 ; Epigastric pain R10.13 and Injury of left lower arm, initial encounter S59.912A [place] [id number] [place] [address] Aug, Coronary artery disease involving [place] heart with angina pectoris, unspecified vessel or lesion type I25.119 ; Pulmonary emphysema, unspecified emphysema type J43.9 and Snoring R06.83 [place] [id number] [place] [address] Aug, [place] [id number] [place] [address] Aug, Emphysema, unspecified J43.9 ; Atherosclerotic heart disease of [place] coronary artery without angina pectoris I25.10 and Hypertension I10 [place] [id number] [place] [address] July, [place] [id number] [place] [address] July, Closed nondisplaced fracture of scaphoid of left wrist, unspecified portion of scaphoid, initial encounter S62.002A [place] [id number] [place] [address] July, [place] [id number] [place] [address] July, Type 2 diabetes mellitus with diabetic neuropathy, unspecified E11.40 ; Emphysema, unspecified J43.9 ; Atherosclerotic heart disease of [place] coronary artery without angina pectoris I25.10 [...] agents L24.89 and Hospital discharge follow-up Z09 [place] [id number] [place] [address] July, [place] [id number] [place] [address] July, Type 2 diabetes mellitus with diabetic neuropathy, unspecified E11.40 [place] [id number] [place] [address] July, Type 2 diabetes mellitus with diabetic neuropathy, unspecified E11.40 and Rheumatoid arthritis of left wrist without organ or system involvement with positive rheumatoid factor M05.732 [place] [id number] [place] [address] July, [place] [id number] [place] [address] July, [place] [id number] [place] [address] Jun, [place] [id number] [place] [address] Jun, [place] [id number] [place] [address] Jun, 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 [place] [id number] [place] [address] Jun, [place] [id number] [place] [address] Jun, 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 [place] [address] [address] 14 Jun, 2015 [place] [id number] [place] [address] Jun, [place] [id number] [place] [address] Jun, Encounter for PPD test Z11.1 ; Rheumatoid arthritis with rheumatoid factor of right wrist without organ or systems involvement M05.731 and Rheumatoid arthritis of left wrist without organ or system involvement with positive rheumatoid factor M05.732 [place] [id number] [place] [address] Jun, Type 2 diabetes mellitus with diabetic neuropathy, unspecified E11.40 [place] [id number] [place] [address] May, Type 2 diabetes mellitus with diabetic neuropathy, unspecified E11.40 ; Emphysema, unspecified J43.9 ; Rheumatoid arthritis with rheumatoid factor of right wrist without organ or systems involvement M05.731 ; Rheumatoid arthritis of left wrist without organ or system involvement with positive rheumatoid factor M05.732 and Chronic pain G89.29 [place] [id number] [place] [address] May, [place] [id number] [place] [id number] May, Swelling of hand joint M25.449 ; Ankle swelling M25.473 and Joint pain M25.50 [place] [id number] [place] [id number] May, Emphysema, unspecified J43.9 [place] [address] [address] [place] [id number] [place] [phone] May, Hypertension I10 and Gastroenteritis K52.9 [place] [id number] [place] [id number] Apr, [facility] [id number] [place] [phone] Apr, [place] [id number] [place] [id number] Apr, [place] [id number] [place] [phone] Apr, Type 2 diabetes mellitus with diabetic neuropathy, unspecified E11.40 ; Emphysema, unspecified J43.9 ; Atherosclerotic heart disease of [place] coronary artery without angina pectoris I25.10 ; Migraine without aura, not intractable, with status migrainosus G43.001 ; Gastro-esophageal reflux disease without esophagitis K21.9 ; CAD (coronary artery disease) I25.10 ; Hypertension I10 ; Hyperlipemia E78.5 ; Allergic rhinitis J30.9 ; Neuropathy G62.9 ; Anxiety associated with depression F41.8 and Injury of left hand S69.92XA [address] [address] Apr, [place] [id number] [place] [phone] Apr, [place] [id number] [place] [phone] Apr, Type 2 diabetes mellitus with diabetic neuropathy, unspecified E11.40 ; Emphysema, unspecified J43.9 ; Essential (primary) hypertension I10 ; Atherosclerotic heart disease of [place] coronary artery without angina pectoris I25.10 ; Gastro-esophageal reflux disease without esophagitis K21.9 ; CAD (coronary artery disease) I25.10 ; Hyperlipemia E78.5 ; Hypertension I10 ; History of solitary pulmonary nodule Z87.898 ; Allergic rhinitis J30.9 ; Chronic pain G89.29 and Depression with anxiety F41.8 [place] [id number] [place] [phone] Mar, [place] [id number] [place] [phone] Mar, Allergic rhinitis J30.9 ; URI (upper respiratory infection) J06.9 and Other viral agents as the cause of diseases classified elsewhere B97.89 [facility] [address] [address] Feb, Acute nasopharyngitis [common cold] J00 and Acute diarrhea R19.7 [place] [address] [address] Feb, Depression F32.9 [place] [address] [address] Jan, Otitis media, right H66.91 [place] [address] [address] Jan, [place] [address] [address] Jan, Type 2 diabetes mellitus with diabetic neuropathy, unspecified E11.40 [place] [address] [address] Jan, [place] [address] [address] Jan, Hyperlipemia E78.5 [place] [address] [address] Jan, Type 2 diabetes mellitus with diabetic neuropathy, unspecified E11.40 ; Emphysema, unspecified J43.9 ; CAD (coronary artery disease) I25.10 and Hyperlipemia E78.5 [place] [address] [address] Dec, Allergic rhinitis J30.9 and Fungal infection B49 [place] [address] [address] Dec, [place] [address] [address] Dec, [place] [address] [address] Dec, Chest pain R07.9 ; CAD (coronary artery disease) I25.10 ; Hypertension I10 and Hyperlipemia E78.5 [place] [id number] [place] [phone] Dec, Pain in thoracic spine M54.6 ; Gastro-esophageal reflux disease without esophagitis K21.9 ; Emphysema, unspecified J43.9 and Migraine without aura, not intractable, with status migrainosus G43.001 [place] [address] [place] [id number] [place] [phone] Dec, [place] [address] [place] [id number] [place] [phone] Nov, Influenza vaccine administered V04.81 [place] [id number] [place] [phone] Nov, [place] [address] [place] [id number] [place] [phone] Sep, [place] [address] [place] [id number] [place] [phone] Sep, [place] [id number] [place] [phone] Sep, CAD (coronary artery disease) 414.00 and Diabetes type 2, uncontrolled 250.02 [place] [id number] [place] [phone] Sep, CAD (coronary artery disease) 414.00 ; Diabetes type 2, uncontrolled 250.02 and Migraine 346.90 IMMUNIZATIONS No Known Immunizations SOCIAL HISTORY Never Assessed REASON FOR VISIT Controlled Med Refill 11/25 PLAN OF CARE VITAL SIGNS MEDICATIONS Medication [...] unspecified Medical History Atherosclerotic heart disease of [place] coronary artery without angina pectoris Medical [...]
--- OUTSIDE RECORDS SUMMARY | 2018-08-23 17:47 | XMS REPORT ---
Author Author DANNA DESOUZA [facility] Address [address] [place] [address] Phone Unavailable Care Team Providers Care Enrichment Specialist Name Role Phone DANNA DESOUZA Unavailable Unavailable PROBLEMS Type Condition ICD9-CM Code [id number] Code Onset Dates Condition Status SNOMED Code Problem Neuropathy G62.9 Active 448030092 Problem Other hammer toe(s) (acquired), right foot M20.41 Active 912778499 Problem Other hammer toe(s) (acquired), left foot M20.42 Active 55787532 Problem Anxiety F41.9 Active 09281442 Problem Type 2 diabetes mellitus with diabetic neuropathy, unspecified E11.40 Active 22512782 Problem Hammer toe of left foot M20.42 Active 177748115 Problem Hyperlipemia E78.5 Active 41565390 Problem Hypertension I10 Active 44850750 Problem COPD with exacerbation J44.1 Active 729173362061108 Problem Tobacco abuse Z72.0 Active 770018793 Problem COPD with acute exacerbation J44.1 Active 453933827 Problem Back pain of lumbar region with sciatica M54.40 Active 810139905 Problem Allergic rhinitis J30.9 Active 19572640 Problem Anxiety associated with depression F41.8 Active 814785562 Problem Gastro-esophageal reflux disease without esophagitis K21.9 Active 009922111 Problem Emphysema, unspecified J43.9 Active 51637204 Problem Rheumatoid arthritis involving multiple sites with positive rheumatoid factor M05.79 Active 060397799 Problem Primary insomnia F51.01 Active 9839350 Problem Chronic pain G89.29 Active 73394930 Problem Periodontitis K05.30 Active 72839715 Problem Vitamin D deficiency E55.9 Active 03438607 Problem OAB (overactive bladder) N32.81 Active 379786359 Problem Dependence on nocturnal oxygen therapy Z99.81 Active 94011517512984 ALLERGIES Substance Reaction Event Type Date Status Sulfamethoxazole-Trimethoprim itching Drug Allergy Jan, Active Singulair dizziness Drug Allergy Jan, Active ENCOUNTERS Encounter Location Date Diagnosis [facility] [address] [place] [address] Oct, [facility] [id number] [place] [address] Aug, [facility] [id number], [place] [address] July, [facility] [id number] [place] [address] July, [facility] [id number] [place] [address] July, Chronic pain G89.29 [facility] [id number] [place] [address] July, [facility] [id number] [place] [address] July, Onychomycosis B35.1 ; Hammer toe of left foot M20.42 and Type 2 diabetes mellitus with diabetic neuropathy, unspecified E11.40 [facility] [address], [place] [address] July, [facility] [id number] [place] [address] July, Chronic pain G89.29 and Neuropathy G62.9 [facility] [address], [place] [address] July, [facility] [id number] [address] July, [facility] [address], [place] [address] Jun, [facility] [id number] [address] Jun, Chronic pain G89.29 [facility] [address], [place] [address] Jun, [facility] [address], [place] [address] Jun, [facility] [id number] [place] [address] Jun, Visit for TB skin test Z11.1 [facility] [id number] [place] [address] 16 Jun, 2017 [facility] [id number] [place] [address] Jun, [facility] [id number] [place] [address] Jun, Tobacco abuse Z72.0 and Rheumatoid arthritis involving multiple sites with positive rheumatoid factor M05.79 [facility] [id number] [place] [address] Jun, Anxiety F41.9 ; Acute non-recurrent maxillary sinusitis J01.00 and Chronic pain G89.29 [facility] [address] [place] [address] Jun, [facility] [id number] [place] [address] May, Rheumatoid arthritis involving multiple sites with positive rheumatoid factor M05.79 [facility] [id number] [place] [address] May, Chronic pain G89.29 [facility] [address], [place] [address] May, [facility] [id number] [place] [address] May, [facility] [id number] [place] [address] May, [facility] [address], [place] [address] May, Type 2 diabetes mellitus with diabetic neuropathy, unspecified E11.40 [place] [id number] [place] [address] May, Type 2 diabetes mellitus with diabetic neuropathy, unspecified E11.40 ; Emphysema, unspecified J43.9 ; Hypertension I10 ; Hyperlipemia E78.5 ; Vitamin D deficiency E55.9 ; Right medial knee pain M25.561 ; Controlled substance agreement signed Z79.899 ; Chronic pain G89.29 ; Allergic rhinitis J30.9 ; Anxiety associated with depression F41.8 ; Neuropathy G62.9 and Gastro- esophageal reflux disease without esophagitis K21.9 [facility] [id number] [place] [address] Apr, Chronic pain G89.29 [facility] [id number] [place] [address] 16 Apr, 2017 Other hammer toe(s) (acquired), left foot M20.42 ; Other hammer toe(s) (acquired), right foot M20.41 ; Type 2 diabetes mellitus with diabetic neuropathy, unspecified E11.40 and Onychomycosis B35.1 [facility] [id number] [place] [address] 2017 Gastro-esophageal reflux disease without esophagitis K21.9 [facility] [id number] [place] [address] 02 Apr, 2017 Controlled substance agreement signed Z79.899 [facility] [id number] [place] [address] Mar, Chronic pain G89.29 [facility] [id number] [place] [address] Mar, Emphysema, unspecified J43.9 and Type 2 diabetes mellitus with diabetic neuropathy, unspecified E11.40 [facility] [id number] [place] [address] Mar, Dysuria R30.0 ; Vaginal candidiasis B37.3 and Acute nonintractable headache, unspecified headache type R51 [facility] [id number] [place] [address] Feb, Neuropathy G62.9 and Chronic pain G89.29 [facility] [id number] [place] [address] 22 Feb, 2017 Gastro-esophageal reflux disease without esophagitis K21.9 [facility] [address] [address] Feb, [facility] [id number] [place] [address] Feb, Rheumatoid arthritis involving multiple sites with positive rheumatoid factor M05.79 and COPD with acute exacerbation J44.1 [facility] [id number] [place] [address] 08 Feb, 2017 Vaginal odor N89.8 ; Vaginal irritation N89.8 ; Candidal dermatitis B37.2 and Screening breast examination Z12.31 [facility] [id number] [place] [address] Feb, [facility] [place] [address] [address] Feb, [facility] [id number] [place] [address] Feb, [facility] [id number] [place] [address] Feb, COPD with exacerbation J44.1 ; Tobacco abuse counseling Z71.6 ; Tobacco abuse Z72.0 ; Rheumatoid arthritis involving multiple sites with positive rheumatoid factor M05.79 and Hyperlipemia E78.5 [facility] [id number] [place] [address] Feb, [facility] [address] [place] [phone] Jan, [facility] [place] [address] [address] 30 Jan, 2017 Chronic pain G89.29 [facility] [address] [place] [phone] 27 Jan, 2017 Dental examination Z01.20 [facility] [id number] [place] [address] 19 Jan, 2017 Back pain of lumbar region with sciatica M54.40 [facility] [id number] [place] [address] 15 Jan, 2017 Acute bacterial conjunctivitis of both eyes H10.33 [facility] [address] [address] 02 Jan, 2017 Chronic pain G89.29 [facility] [id number] [place] [address] 31 Dec, 2016 Type 2 diabetes mellitus with diabetic neuropathy, unspecified E11.40 ; Hypertension I10 ; Hyperlipemia E78.5 ; Gastro-esophageal reflux disease without esophagitis K21.9 ; Anxiety associated with depression F41.8 ; Allergic rhinitis J30.9 ; Neuropathy G62.9 and Dependence on nocturnal oxygen therapy Z99.81 [facility] [id number] [place] [address] Dec, [facility] [id number] [place] [address] Dec, [facility] [id number] [place] [address] 09 Dec, 2016 Encounter for immunization Z23 [facility] [id number] [place] [address] 05 Dec, 2016 Type 2 diabetes mellitus with diabetic neuropathy, unspecified E11.40 and Chronic pain G89.29 [facility] [id number] [place] [address] 11 Nov, 2016 Gastro-esophageal reflux disease without esophagitis K21.9 [facility] [address] [address] 11 Nov, 2016 Peripheral edema R60.9 and Chest pain in adult R07.9 [facility] [id number] [place] [address] 07 Nov, 2016 Chronic pain G89.29 [facility] [id number] [place] [address] Oct, [facility] [id number] [place] [address] Oct, [facility] [id number] [place] [address] 17 Oct, 2016 Rheumatoid arthritis with rheumatoid factor of right wrist without organ or systems involvement M05.731 [facility] [id number] [place] [address] 15 Oct, 2016 [facility] [id number] [place] [address] Oct, Acute exacerbation of chronic obstructive pulmonary disease (COPD) J44.1 and Canker sore K12.0 [facility] [id number] [place] [address] Oct, [facility] [id number] [place] [address] Oct, [facility] [id number] [place] [address] Oct, Chronic pain G89.29 [facility] [id number] [place] [phone] Oct, Dental examination Z01.20 [facility] [id number] [place] [address] Oct, Dental examination Z01.20 and Periodontitis K05.30 [facility] [id number] [place] [phone] Oct, Dental examination Z01.20 [facility] [id number] [place] [address] Sep, Abscess L02.91 [facility] [id number] [place] [address] Sep, Dental examination Z01.20 [facility] [id number] [place] [address] Sep, [facility] [id number] [place] [phone] Sep, Dental examination Z01.20 and Dental caries K02.9 [facility] [place] [id number] [place] [address] Sep, Primary insomnia F51.01 and Anxiety associated with depression F41.8 [facility] [id number] [place] [address] Sep, Rheumatoid arthritis with rheumatoid factor of right wrist without organ or systems involvement M05.731 [facility] [id number] [place] [address] Sep, Chronic pain G89.29 [facility] [id number] [place] [address] Sep, Type 2 diabetes mellitus with diabetic neuropathy, unspecified E11.40 ; Emphysema, unspecified J43.9 ; Gastro-esophageal reflux disease without esophagitis K21.9 ; Hypertension I10 ; Hyperlipemia E78.5 ; Anxiety associated with depression F41.8 ; Chronic pain G89.29 ; Vitamin D deficiency E55.9 and Primary insomnia F51.01 [facility] [id number] [place] [address] 16 Aug, 2016 Anxiety associated with depression F41.8 [facility] [id number] [place] [address] Aug, Chronic pain G89.29 and Neuropathy G62.9 [facility] [id number] [place] [address] Aug, Type 2 diabetes mellitus with diabetic neuropathy, unspecified E11.40 ; Rheumatoid arthritis involving multiple sites with positive rheumatoid factor M05.79 ; Vitamin D deficiency E55.9 ; Anxiety associated with depression F41.8 and Primary insomnia F51.01 [facility] [place] [id number] [place] [address] July, Emphysema, unspecified J43.9 [facility] [id number] [place] [address] July, Allergic rhinitis J30.9 [facility] [id number] [place] [address] July, Allergic rhinitis J30.9 ; Emphysema, unspecified J43.9 and Rheumatoid arthritis with rheumatoid factor of right wrist without organ or systems involvement M05.731 [facility] [place] [id number] [place] [address] July, Neuropathy G62.9 and Chronic pain G89.29 [facility] [id number] [place] [address] July, Rheumatoid arthritis involving multiple sites with positive rheumatoid factor M05.79 [facility] [id number] [place] [address] Jun, [facility] [place] [id number] [place] [address] Jun, Neuropathy G62.9 and Chronic pain G89.29 [facility] [id number] [place] [address] May, Neuropathy G62.9 and Chronic pain G89.29 [facility] [place] [id number] [place] [address] May, [facility] [id number] [place] [address] May, [facility] [id number] [place] [address] May, Type 2 diabetes mellitus with diabetic [...] system involvement with positive rheumatoid factor M05.732 [facility] [address] [address] 14 Apr, 2016 Chronic pain G89.29 [facility] [address] [address] Mar, Gastro-esophageal reflux disease without esophagitis K21.9 [facility] [address] [address] Mar, [facility] [address] [address] Mar, Rheumatoid arthritis with rheumatoid factor of right wrist without organ or systems involvement M05.731 [facility] [address] [address] Mar, Chronic pain G89.29 [facility] [address] [address] Feb, Hyperlipemia E78.5 [facility] [address] [address] Feb, Abnormal breath sounds R06.89 ; COPD with exacerbation J44.1 and Fatigue, unspecified type R53.83 [facility] [address] [address] Feb, Neuropathy G62.9 ; Abnormal lung sounds R09.89 and Bronchitis J40 [facility] [address] [address] Feb, Bronchitis J40 [facility] [address] [place] [address] Feb, Chronic pain G89.29 [facility] [place] [id number] [place] [address] Jan, Type 2 diabetes mellitus with diabetic neuropathy, unspecified E11.40 ; Rheumatoid arthritis with rheumatoid factor of right wrist without organ or systems involvement M05.731 and Hyperlipemia E78.5 [facility] [place] [address] [place] [address] Jan, Rheumatoid arthritis with rheumatoid factor of right wrist without organ or systems involvement M05.731 [facility] [id number] [place] [address] Jan, De Quervain's disease (radial styloid tenosynovitis) M65.4 ; Closed nondisplaced fracture of scaphoid of left wrist, unspecified portion of scaphoid, initial encounter S62.002A and Peripheral tear of medial meniscus of left knee, unspecified whether old or current tear, initial encounter S83.222A [facility] [place] [id number] [place] [address] Jan, Hypertension I10 ; Type 2 diabetes mellitus with diabetic neuropathy, unspecified E11.40 ; Hyperlipemia E78.5 ; Allergic rhinitis J30.9 ; Neuropathy G62.9 ; Rheumatoid arthritis with rheumatoid factor of right wrist without organ or systems involvement M05.731 ; Acute non-recurrent maxillary sinusitis J01.00 and Chronic pain G89.29 [facility] [address] [place] [address] Dec, [facility] [place] [id number] [place] [phone] Dec, [facility] [place] [id number] [place] [address] Dec, Type 2 diabetes mellitus with diabetic neuropathy, unspecified E11.40 ; Emphysema, unspecified J43.9 ; Gastro-esophageal reflux disease without esophagitis K21.9 ; Hypertension I10 ; Hyperlipemia E78.5 ; Rheumatoid arthritis with rheumatoid factor of right wrist without organ or systems involvement M05.731 ; Elevated white blood cell count, unspecified D72.829 ; Acute non- recurrent frontal sinusitis J01.10 and Chronic pain G89.29 [facility] [place] [id number] [place] [address] Nov, [facility] [place] [address] [address] Nov, Elevated white blood cell count, unspecified D72.829 ; Encounter for immunization Z23 ; Rheumatoid arthritis with rheumatoid factor of right wrist without organ or systems involvement M05.731 ; Injury of left hand S69.92XA ; Pain in left knee M25.562 and Other chronic pain G89.29 [facility] [place] [address] [address] Nov, [facility] [address] [address] Nov, [facility] [place] [address] [address] Oct, [facility] [place] [id number] [place] [address] Oct, Hyperlipemia E78.5 [facility] [place] [id number] [place] [address] Oct, [facility] [place] [id number] [place] [address] Oct, Type 2 diabetes mellitus with diabetic neuropathy, unspecified E11.40 ; Neuropathy G62.9 ; Hypertension I10 ; Chronic pain G89.29 and Hyperlipemia E78.5 [facility] [place] [id number] [place] [address] Oct, Emphysema, unspecified J43.9 and Rheumatoid arthritis of left wrist without organ or system involvement with positive rheumatoid factor M05.732 [facility] [id number] [place] [address] Sep, Chronic pain syndrome G89.4 [facility] [id number] [place] [address] Sep, [facility] [id number] [place] [address] Sep, [facility] [id number] [place] [address] Sep, Closed nondisplaced fracture of scaphoid of left wrist, unspecified portion of scaphoid, initial encounter S62.002A [facility] [place] [id number] [place] [address] Sep, Type 2 diabetes mellitus with diabetic neuropathy, unspecified E11.40 ; Hypertension I10 ; Hyperlipemia E78.5 and Acute non-recurrent maxillary sinusitis J01.00 [facility] [place] [id number] [place] [address] Sep, [facility] [place] [id number] [place] [address] Sep, [facility] [place] [address] [place] [address] Sep, [facility] [place] [id number] [place] [address] Sep, [facility] [place] [id number] [place] [address] Aug, Epigastric pain R10.13 and Right upper quadrant pain R10.11 [facility] [id number] [place] [address] Aug, Closed nondisplaced fracture of scaphoid of left wrist, unspecified portion of scaphoid, initial encounter S62.002A [facility] [id number] [place] [address] Aug, [facility] [address] [place] [address] Aug, [facility] [address] [place] [id number] Aug, Shortness of breath R06.02 ; Epigastric pain R10.13 and Injury of left lower arm, initial encounter S59.912A [place] [address] [id number] [place] [phone] Aug, 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, unspecified vessel or lesion type I25.119 ; Pulmonary emphysema, unspecified emphysema type J43.9 and Snoring R06.83 [place] [address] [id number] [place] [id number] Aug, [place] [address] [id number] [place] [phone] Aug, Emphysema, unspecified J43.9 ; Atherosclerotic heart disease of north fork coronary artery without angina pectoris I25.10 and Hypertension I10 [place] [id number] [place] [phone] July, [place] [id number] [place] [phone] July, Closed nondisplaced fracture of scaphoid of left wrist, unspecified portion of scaphoid, initial encounter S62.002A [place] [id number] [place] [address] July, [place] [id number] [place] [address] July, Type 2 diabetes mellitus with diabetic neuropathy, unspecified E11.40 ; Emphysema, unspecified J43.9 ; Atherosclerotic heart disease of [place] coronary artery without angina pectoris I25.10 ; [...] agents L24.89 and Hospital discharge follow-up Z09 [facility] [address], [place] [address] July, [facility] [id number] [place] [phone] July, Type 2 diabetes mellitus with diabetic neuropathy, unspecified E11.40 [place] [id number] [place] [address] July, Type 2 diabetes mellitus with diabetic neuropathy, unspecified E11.40 and Rheumatoid arthritis of left wrist without organ or system involvement with positive rheumatoid factor M05.732 [facility] [id number] [place] [address] July, [facility] [id number] [place] [phone] July, [facility] [id number] [place] [address] Jun, [facility] [id number] [place] [address] Jun, [facility] [address], [place] [address] Jun, 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 [facility] [address] [place] [address] Jun, [facility] [id number] [place] [address] Jun, 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 [facility] [id number] [place] [address] Jun, [facility] [id number] [place] [address] Jun, [place] [id number] [address] Jun, Encounter for PPD test Z11.1 ; Rheumatoid arthritis with rheumatoid factor of right wrist without organ or systems involvement M05.731 and Rheumatoid arthritis of left wrist without organ or system involvement with positive rheumatoid factor M05.732 [place] [id number] [place] [address] Jun, Type 2 diabetes mellitus with diabetic neuropathy, unspecified E11.40 [place] [id number] [place] [address] May, Type 2 diabetes mellitus with diabetic neuropathy, unspecified E11.40 ; Emphysema, unspecified J43.9 ; Rheumatoid arthritis with rheumatoid factor of right wrist without organ or systems involvement M05.731 ; Rheumatoid arthritis of left wrist without organ or system involvement with positive rheumatoid factor M05.732 and Chronic pain G89.29 [place] [address] [address] May, [place] [id number] [place] [address] May, Swelling of hand joint M25.449 ; Ankle swelling M25.473 and Joint pain M25.50 [place] [place] [id number] [place] [address] May, Emphysema, unspecified J43.9 [place] [id number] [place] [address] May, Gastroenteritis K52.9 and Hypertension I10 [place] [id number] [place] [phone] Apr, [place] [id number] [place] [phone] Apr, [place] [id number] [place] [address] Apr, [place] [id number] [place] [address] 18 Apr, 2015 Type 2 diabetes mellitus with diabetic neuropathy, unspecified E11.40 ; Emphysema, unspecified J43.9 ; Atherosclerotic heart disease of [place] coronary artery without angina pectoris I25.10 ; Migraine without aura, not intractable, with status migrainosus G43.001 ; Gastro-esophageal reflux disease without esophagitis K21.9 ; CAD (coronary artery disease) I25.10 ; Hypertension I10 ; Hyperlipemia E78.5 ; Allergic rhinitis J30.9 ; Neuropathy G62.9 ; Anxiety associated with depression F41.8 and Injury of left hand S69.92XA [address] [address] Apr, [address] [address] Apr, [address] [address] Apr, Type 2 diabetes mellitus with diabetic neuropathy, unspecified E11.40 ; Emphysema, unspecified J43.9 ; Essential (primary) hypertension I10 ; Atherosclerotic heart disease of [place] coronary artery without angina pectoris I25.10 ; Gastro-esophageal reflux disease without esophagitis K21.9 ; CAD (coronary artery disease) I25.10 ; Hyperlipemia E78.5 ; Hypertension I10 ; History of solitary pulmonary nodule Z87.898 ; Allergic rhinitis J30.9 ; Chronic pain G89.29 and Depression with anxiety F41.8 [place] [address] [address] Mar, [address] [address] Mar, Allergic rhinitis J30.9 ; URI (upper respiratory infection) J06.9 and Other viral agents as the cause of diseases classified elsewhere B97.89 [facility] [id number] [place] [address] Feb, Acute nasopharyngitis [common cold] J00 and Acute diarrhea R19.7 [place] [id number] [place] [address] Feb, Depression F32.9 [place] [address] [address] Jan, Otitis media, right H66.91 [place] [address] [address] Jan, [place] [address] [address] Jan, Type 2 diabetes mellitus with diabetic neuropathy, unspecified E11.40 [place] [address] [address] Jan, [place] [address] [address] Jan, Hyperlipemia E78.5 [place] [address] [address] Jan, Type 2 diabetes mellitus with diabetic neuropathy, unspecified E11.40 ; Emphysema, unspecified J43.9 ; CAD (coronary artery disease) I25.10 and Hyperlipemia E78.5 [place] [id number] [place] [address] Dec, Allergic rhinitis J30.9 and Fungal infection B49 [place] [id number] [place] [address] Dec, [place] [address] [address] Dec, [place] [address] [address] Dec, Chest pain R07.9 ; CAD (coronary artery disease) I25.10 ; Hypertension I10 and Hyperlipemia E78.5 [place] [address] [address] Dec, Pain in thoracic spine M54.6 ; Gastro-esophageal reflux disease without esophagitis K21.9 ; Emphysema, unspecified J43.9 and Migraine without aura, not intractable, with status migrainosus G43.001 [place] [id number] [place] [address] Dec, [place] [id number] [place] [address] Nov, Influenza vaccine administered V04.81 [place] [id number] [place] [address] Nov, [place] [id number] [place] [address] Sep, [place] [id number] [place] [address] Sep, [place] [id number] [place] [address] Sep, CAD (coronary artery disease) 414.00 and Diabetes type 2, uncontrolled 250.02 [place] [id number] [place] [address] Sep, CAD (coronary artery disease) 414.00 ; Diabetes type 2, uncontrolled 250.02 and Migraine 346.90 IMMUNIZATIONS No Known Immunizations SOCIAL HISTORY Never Assessed REASON FOR VISIT Dental Examination PLAN OF CARE VITAL SIGNS Blood pressure systolic 124 mmHg 2017-02-13 Blood pressure diastolic 67 mmHg 2017-02-13 MEDICATIONS Medication Instructions Dosage Frequency Start Date End Date Duration Status Blood Glucose Test Test Strips In Vitro 4 times a day test blood sugar 6h Jun, Active Lyrica 100 mg Orally Three times a day 1 capsule 8h Dec, 30 days Active Hydrocodone-Acetaminophen 7.5-325 MG Orally every 6 hours as needed 1 tablet as needed Jan, 28 days Active Metoprolol Tartrate 25 MG Orally Twice a day TAKE ONE TABLET BY MOUTH TWICE DAILY 12h 30 Active Baclofen 10 MG TAKE ONE TABLET BY MOUTH THREE TIMES DAILY WITH FOOD OR MILK 90 Active Plaquenil 200 mg Orally Once a day 1 tablet with food or milk 24h 30 Active Quad Cane as directed May, Active Metformin HCl 1000 MG Orally 2 times a day TAKE ONE TABLET BY MOUTH TWICE DAILY WITH MEALS 12h 30 Active Methotrexate 2.5 MG Orally once weekly 8 TABLETS 90 days Active Albuterol Sulfate (2.5 MG/3ML) 0.083% Inhalation Three times a day 3 ml 8h 30 Active Fish Oil 1200 MG Orally Once a day 1 capsule 24h Active Qnasl 80 MCG/ACT Nasally Once a day 2 puffs in each nostril 24h July, 30 day(s) Active Depend Adjustable Underwear Lg 1 as directed 3 times a day use one depends three times per day as needed 8h May, 12 months Active Aspirin Adult Low Strength 81 MG Orally Once a day 1 tablet 24h 90 Active Ventolin HFA 108 (90 Base) MCG/ACT Inhalation every 4 hrs Needs appointment 2 puffs as needed 17 Active Atorvastatin Calcium 10 mg Orally Once a day 1 tablet 24h Oct, 30 day(s) Active Trazodone HCl 50 mg Orally Once a day 1 tablet at bedtime as needed 24h 30 Active Mucinex 600 MG Orally every 12 hrs 1 tablet as needed 12h Mar, Active Aleve 220 MG Orally every 12 hrs 1 tablet 12h Not-Taking BusPIRone HCl 10 mg Orally TID PRN 1 tablet Dec, 30 days Active Cetirizine HCl 10 Orally Once a day TAKE 1 TABLET BY MOUTH DAILY 24h Active Symbicort 160-4.5 MCG/ACT Inhalation Twice a day Needs to make an appointment 2 puffs 30 Active Easy Touch Pen Sprague 32G X 4 MM sq 4 times a day as directed 6h Sep, 90 days Active Folic Acid 1 MG Orally Once a day 1 tablet 24h 90 Active Oxygen Active Lisinopril 20 mg Orally Once a day 1 tablet 24h 30 Active Citalopram Hydrobromide 20 mg Orally Once a day 1 tablet 24h 30 Active PredniSONE 20 MG Orally 3 tablets x 3 days, followed by 2 tablets x 3 days, followed by 1 tablet x 3 days. as directed Jan, Jan, 9 days Active Protonix 40 mg Orally Once a day 1 tablet 24h Dec, 90 days Active Blood Glucose Monitor System w/Device as directed July, Active Victoza 18 MG/3ML Subcutaneous Once a day 1.8mg 24h 30 Active Nystatin-Triamcinolone 100834-7.1 UNIT/GM Externally Twice a day apply thin layer to irritated abdominal areas 12h 17 Jul, 2015 Active RESULTS No Results PROCEDURES Procedure Date Ordered Result Body Site COMP ORAL EVALUATION - NEW/EST PT Feb 13, 2017 UNSPEC DIAGNOSTIC PROCEDURE REPORT October 13, 2016 INSTRUCTIONS MEDICATIONS ADMINISTERED No Known Medications MEDICAL (GENERAL) HISTORY Type Description Date Medical History COPD Medical History Type 2 Diabetes Medical History HTN Medical History Cardiac stents July 2010 post IN-stent to LAD Medical History Rheumatoid Arthritis Medical History 04/2016---Echo- 60%//mild hypertrophy at the base of the septum, mild mitral regurg/ mild tricuspid regurg. PAP about 10-15 mmHg Medical History 04/2016------Normal Lexiscan Medical History Elevated white blood cell count, unspecified Medical History Atherosclerotic heart disease of [place] coronary artery without angina pectoris Medical History [...]
--- OUTSIDE RECORDS SUMMARY | 2018-08-23 17:48 | XMS REPORT ---
Author Author CLAU DELEON Organization [facility] Address [address] [place] [address] Care Team Providers Care Sap Ppm Consultant Name Role Phone DELEONROB MoranELE Unavailable PROBLEMS Type Condition ICD9-CM Code MPG37-BV Code Onset Dates Condition Status SNOMED Code Problem Neuropathy G62.9 Active 853521188 Problem Other hammer toe(s) (acquired), right foot M20.41 Active 824303741 Problem Other hammer toe(s) (acquired), left foot M20.42 Active 39702197 Problem Anxiety F41.9 Active 44695787 Problem Type 2 diabetes mellitus with diabetic neuropathy, unspecified E11.40 Active 39461758 Problem Hammer toe of left foot M20.42 Active 335831229 Problem Hyperlipemia E78.5 Active 04652698 Problem Hypertension I10 Active 53325711 Problem COPD with exacerbation J44.1 Active [id number] Problem Tobacco abuse Z72.0 Active 578568477 Problem COPD with acute exacerbation J44.1 Active 767709903 Problem Back pain of lumbar region with sciatica M54.40 Active 253838574 Problem Allergic rhinitis J30.9 Active 14424767 Problem Anxiety associated with depression F41.8 Active 966189472 Problem Gastro-esophageal reflux disease without esophagitis K21.9 Active 567172984 Problem Emphysema, unspecified J43.9 Active 49375660 Problem Rheumatoid arthritis involving multiple sites with positive rheumatoid factor M05.79 Active 832662373 Problem Primary insomnia F51.01 Active 0267329 Problem Chronic pain G89.29 Active 86463650 Problem Periodontitis K05.30 Active 57135960 Problem Vitamin D deficiency E55.9 Active 35797566 Problem OAB (overactive bladder) N32.81 Active 722449277 Problem Dependence on nocturnal oxygen therapy Z99.81 Active [id number] ALLERGIES No Information ENCOUNTERS Encounter Location Date Diagnosis [facility] [address] [facility] [id number] [address] Oct, [facility] [address] [address] Aug, [facility] [id number] [place] [address] July, [facility] [id number] [place] [address] July, [facility] [id number] [place] [address] July, Chronic pain G89.29 [facility] [id number] [place] [address] July, [facility] [id number] [place] [address] July, Onychomycosis B35.1 ; Hammer toe of left foot M20.42 and Type 2 diabetes mellitus with diabetic neuropathy, unspecified E11.40 [facility] [address] [address] July, [facility] [id number] [place] [address] July, Chronic pain G89.29 and Neuropathy G62.9 [facility] [address] [address] July, [facility] [address] [address] July, [facility] [address] [address] Jun, [facility] [id number] [address] Jun, Chronic pain G89.29 [facility] [address] [address] Jun, [facility] [address] [place] [address] Jun, [facility] [id number] [place] [address] Jun, Visit for TB skin test Z11.1 [facility] [address] [address] 16 Jun, 2017 [facility] [id number] [place] [address] Jun, [facility] [id number] [place] [address] Jun, Tobacco abuse Z72.0 and Rheumatoid arthritis involving multiple sites with positive rheumatoid factor M05.79 [facility] [id number] [place] [address] Jun, Anxiety F41.9 ; Acute non-recurrent maxillary sinusitis J01.00 and Chronic pain G89.29 [facility] [id number] [place] [address] Jun, [facility] [id number] [place] [address] May, Rheumatoid arthritis involving multiple sites with positive rheumatoid factor M05.79 [facility] [id number] [place] [address] May, Chronic pain G89.29 [facility] [address] [address] May, [facility] [address] [address] May, [facility] [id number] [place] [address] May, [facility] [address] [address] May, Type 2 diabetes mellitus with diabetic neuropathy, unspecified E11.40 [facility] [id number] [place] [address] May, Type 2 diabetes mellitus with diabetic neuropathy, unspecified E11.40 ; Emphysema, unspecified J43.9 ; Hypertension I10 ; Hyperlipemia E78.5 ; Vitamin D deficiency E55.9 ; Right medial knee pain M25.561 ; Controlled substance agreement signed Z79.899 ; Chronic pain G89.29 ; Allergic rhinitis J30.9 ; Anxiety associated with depression F41.8 ; Neuropathy G62.9 and Gastro- esophageal reflux disease without esophagitis K21.9 [facility] [id number] [place] [address] Apr, Chronic pain G89.29 [facility] [id number] [place] [address] 16 Apr, 2017 Other hammer toe(s) (acquired), left foot M20.42 ; Other hammer toe(s) (acquired), right foot M20.41 ; Type 2 diabetes mellitus with diabetic neuropathy, unspecified E11.40 and Onychomycosis B35.1 [facility] [id number] [place] [address] 2017 Gastro-esophageal reflux disease without esophagitis K21.9 [facility] [id number] [place] [address] Apr, Controlled substance agreement signed Z79.899 [facility] [id number] [place] [address] Mar, Chronic pain G89.29 [facility] [id number] [place] [address] Mar, Emphysema, unspecified J43.9 and Type 2 diabetes mellitus with diabetic neuropathy, unspecified E11.40 [facility] [id number] [place] [address] Mar, Dysuria R30.0 ; Vaginal candidiasis B37.3 and Acute nonintractable headache, unspecified headache type R51 [facility] [id number] [place] [address] Feb, Neuropathy G62.9 and Chronic pain G89.29 [facility] [id number] [place] [address] Feb, Gastro-esophageal reflux disease without esophagitis K21.9 [facility] [id number] [place] [address] Feb, [facility] [id number] [place] [address] Feb, Rheumatoid arthritis involving multiple sites with positive rheumatoid factor M05.79 and COPD with acute exacerbation J44.1 [facility] [id number] [place] [address] Feb, Vaginal odor N89.8 ; Vaginal irritation N89.8 ; Candidal dermatitis B37.2 and Screening breast examination Z12.31 [facility] [id number] [place] [address] Feb, [facility] [id number] [place] [address] Feb, [facility] [id number] [place] [address] Feb, [facility] [id number] [place] [address] Feb, COPD with exacerbation J44.1 ; Tobacco abuse counseling Z71.6 ; Tobacco abuse Z72.0 ; Rheumatoid arthritis involving multiple sites with positive rheumatoid factor M05.79 and Hyperlipemia E78.5 [facility] [id number] [place] [address] Feb, [facility] [address] [place] [id number] Jan, [facility] [id number] [place] [address] Jan, Chronic pain G89.29 [facility] [id number] [place] [id number] 27 Jan, 2017 Dental examination Z01.20 [facility] [id number] [place] [address] 19 Jan, 2017 Back pain of lumbar region with sciatica M54.40 [facility] [id number] [place] [address] 15 Jan, 2017 Acute bacterial conjunctivitis of both eyes H10.33 [facility] [id number] [place] [address] 02 Jan, 2017 Chronic pain G89.29 [facility] [id number] [place] [address] 31 Dec, 2016 Type 2 diabetes mellitus with diabetic neuropathy, unspecified E11.40 ; Hypertension I10 ; Hyperlipemia E78.5 ; Gastro-esophageal reflux disease without esophagitis K21.9 ; Anxiety associated with depression F41.8 ; Allergic rhinitis J30.9 ; Neuropathy G62.9 and Dependence on nocturnal oxygen therapy Z99.81 [facility] [id number] [place] [address] Dec, [facility] [id number] [place] [address] Dec, [facility] [id number] [place] [address] 09 Dec, 2016 Encounter for immunization Z23 [facility] [id number] [place] [address] 05 Dec, 2016 Type 2 diabetes mellitus with diabetic neuropathy, unspecified E11.40 and Chronic pain G89.29 [facility] [id number] [place] [address] 11 Nov, 2016 Gastro-esophageal reflux disease without esophagitis K21.9 [facility] [id number] [place] [address] Nov, Peripheral edema R60.9 and Chest pain in adult R07.9 [facility] [id number] [place] [address] 07 Nov, 2016 Chronic pain G89.29 [facility] [id number] [place] [address] 31 Oct, 2016 [facility] [id number] [place] [address] Oct, [facility] [id number] [place] [address] 17 Oct, 2016 Rheumatoid arthritis with rheumatoid factor of right wrist without organ or systems involvement M05.731 [facility] [address] [address] 15 Oct, 2016 [facility] [id number] [place] [address] Oct, Acute exacerbation of chronic obstructive pulmonary disease (COPD) J44.1 and Canker sore K12.0 [facility] [id number] [place] [address] Oct, [facility] [id number] [place] [address] Oct, [facility] [id number] [place] [address] Oct, Chronic pain G89.29 [facility] [id number] [place] [id number] Oct, Dental examination Z01.20 [facility] [id number] [place] [address] Oct, Dental examination Z01.20 and Periodontitis K05.30 [facility] [id number] [place] [id number] Oct, Dental examination Z01.20 [facility] [id number] [place] [address] Sep, Abscess L02.91 [facility] [address] [address] Sep, Dental examination Z01.20 [facility] [id number] [place] [address] Sep, [facility] [address] [id number] Sep, Dental examination Z01.20 and Dental caries K02.9 [facility] [id number] [place] [address] Sep, Primary insomnia F51.01 and Anxiety associated with depression F41.8 [facility] [id number] [place] [address] Sep, Rheumatoid arthritis with rheumatoid factor of right wrist without organ or systems involvement M05.731 [facility] [id number] [place] [address] Sep, Chronic pain G89.29 [facility] [id number] [place] [address] Sep, Type 2 diabetes mellitus with diabetic neuropathy, unspecified E11.40 ; Emphysema, unspecified J43.9 ; Gastro-esophageal reflux disease without esophagitis K21.9 ; Hypertension I10 ; Hyperlipemia E78.5 ; Anxiety associated with depression F41.8 ; Chronic pain G89.29 ; Vitamin D deficiency E55.9 and Primary insomnia F51.01 [facility] [id number] [place] [address] 16 Aug, 2016 Anxiety associated with depression F41.8 [facility] [id number] [place] [address] Aug, Chronic pain G89.29 and Neuropathy G62.9 [facility] [id number] [place] [address] Aug, Type 2 diabetes mellitus with diabetic neuropathy, unspecified E11.40 ; Rheumatoid arthritis involving multiple sites with positive rheumatoid factor M05.79 ; Vitamin D deficiency E55.9 ; Anxiety associated with depression F41.8 and Primary insomnia F51.01 [facility] [address] [address] July, Emphysema, unspecified J43.9 [facility] [address] [address] July, Allergic rhinitis J30.9 [facility] [address] [address] July, Allergic rhinitis J30.9 ; Emphysema, unspecified J43.9 and Rheumatoid arthritis with rheumatoid factor of right wrist without organ or systems involvement M05.731 [facility] [address] [address] July, Neuropathy G62.9 and Chronic pain G89.29 [facility] [address] [address] July, Rheumatoid arthritis involving multiple sites with positive rheumatoid factor M05.79 [facility] [address] [address] Jun, [facility] [address] [address] Jun, Neuropathy G62.9 and Chronic pain G89.29 [facility] [address] [address] May, Neuropathy G62.9 and Chronic pain G89.29 [facility] [id number] [place] [address] May, [facility] [address] [address] May, [facility] [id number] [place] [address] May, Type 2 diabetes mellitus with diabetic [...] system involvement with positive rheumatoid factor M05.732 [facility] [address] [address] 14 Apr, 2016 Chronic pain G89.29 [facility] [address] [address] Mar, Gastro-esophageal reflux disease without esophagitis K21.[address] [address] Mar, [address] [address] Mar, Rheumatoid arthritis with rheumatoid factor of right wrist without organ or systems involvement M05.731 [facility] [address] [address] Mar, Chronic pain G89.29 [facility] [address] [address] Feb, Hyperlipemia E78.5 [facility] [address] [address] Feb, Abnormal breath sounds R06.89 ; COPD with exacerbation J44.1 and Fatigue, unspecified type R53.[address] [address] Feb, Neuropathy G62.9 ; Abnormal lung sounds R09.89 and Bronchitis J40 [facility] [address] [address] Feb, Bronchitis J40 [facility] [address] [address] Feb, Chronic pain G89.29 [facility] [id number] [place] [address] Jan, Type 2 diabetes mellitus with diabetic neuropathy, unspecified E11.40 ; Rheumatoid arthritis with rheumatoid factor of right wrist without organ or systems involvement M05.731 and Hyperlipemia E78.5 [facility] [id number] [place] [address] Jan, Rheumatoid arthritis with rheumatoid factor of right wrist without organ or systems involvement M05.731 [facility] [id number] [place] [address] Jan, De Quervain's disease (radial styloid tenosynovitis) M65.4 ; Closed nondisplaced fracture of scaphoid of left wrist, unspecified portion of scaphoid, initial encounter S62.002A and Peripheral tear of medial meniscus of left knee, unspecified whether old or current tear, initial encounter S83.222A [facility] [address] [place] [address] Jan, Hypertension I10 ; Type 2 diabetes mellitus with diabetic neuropathy, unspecified E11.40 ; Hyperlipemia E78.5 ; Allergic rhinitis J30.9 ; Neuropathy G62.9 ; Rheumatoid arthritis with rheumatoid factor of right wrist without organ or systems involvement M05.731 ; Acute non-recurrent maxillary sinusitis J01.00 and Chronic pain G89.29 [facility] [address] [address] Dec, [facility] [id number] [place] [address] Dec, [facility] [address] [place] [address] Dec, Type 2 diabetes mellitus with diabetic neuropathy, unspecified E11.40 ; Emphysema, unspecified J43.9 ; Gastro-esophageal reflux disease without esophagitis K21.9 ; Hypertension I10 ; Hyperlipemia E78.5 ; Rheumatoid arthritis with rheumatoid factor of right wrist without organ or systems involvement M05.731 ; Elevated white blood cell count, unspecified D72.829 ; Acute non- recurrent frontal sinusitis J01.10 and Chronic pain G89.29 [facility] [id number] [place] [address] Nov, [facility] [address] [address] Nov, Elevated white blood cell count, unspecified D72.829 ; Encounter for immunization Z23 ; Rheumatoid arthritis with rheumatoid factor of right wrist without organ or systems involvement M05.731 ; Injury of left hand S69.92XA ; Pain in left knee M25.562 and Other chronic pain G89.29 [facility] [address] [address] Nov, [facility] [address] [address] Nov, [facility] [address] [address] Oct, [facility] [facility] [address] [address] Oct, Hyperlipemia E78.5 [facility] [address] [address] Oct, [facility] [address] [address] Oct, Type 2 diabetes mellitus with diabetic neuropathy, unspecified E11.40 ; Neuropathy G62.9 ; Hypertension I10 ; Chronic pain G89.29 and Hyperlipemia E78.5 [facility] [address] [address] Oct, Emphysema, unspecified J43.9 and Rheumatoid arthritis of left wrist without organ or system involvement with positive rheumatoid factor M05.732 [facility] [id number] [place] [address] Sep, Chronic pain syndrome G89.4 [facility] [id number] [place] [address] Sep, [facility] [id number] [place] [address] Sep, [facility] [id number] [place] [address] Sep, Closed nondisplaced fracture of scaphoid of left wrist, unspecified portion of scaphoid, initial encounter S62.002A [facility] [id number] [place] [address] Sep, Type 2 diabetes mellitus with diabetic neuropathy, unspecified E11.40 ; Hypertension I10 ; Hyperlipemia E78.5 and Acute non-recurrent maxillary sinusitis J01.00 [facility] [id number] [place] [address] Sep, [facility] [id number] [place] [address] Sep, [facility] [id number] [place] [address] Sep, [facility] [id number] [place] [address] Sep, [facility] [id number] [place] [address] Aug, Epigastric pain R10.13 and Right upper quadrant pain R10.11 [facility] [id number] [place] [address] Aug, Closed nondisplaced fracture of scaphoid of left wrist, unspecified portion of scaphoid, initial encounter S62.002A [facility] [id number] [place] [address] Aug, [facility] [facility] [id number] [place] [address] Aug, [facility] [id number] [place] [address] Aug, Shortness of breath R06.02 ; Epigastric pain R10.13 and Injury of left lower arm, initial encounter S59.912A [facility] [id number] [place] [address] Aug, Coronary artery disease involving [place] heart with angina pectoris, unspecified vessel or lesion type I25.119 ; Pulmonary emphysema, unspecified emphysema type J43.9 and Snoring R06.83 [facility] [id number] [place] [address] Aug, [facility] [id number] [place] [address] Aug, Emphysema, unspecified J43.9 ; Atherosclerotic heart disease of [place] coronary artery without angina pectoris I25.10 and Hypertension I10 [facility] [id number] [place] [address] July, [facility] [id number] [place] [address] July, Closed nondisplaced fracture of scaphoid of left wrist, unspecified portion of scaphoid, initial encounter S62.002A [facility] [id number] [place] [address] July, [facility] [id number] [place] [address] July, Type 2 diabetes mellitus with diabetic neuropathy, unspecified E11.40 ; Emphysema, unspecified J43.9 ; Atherosclerotic heart disease of [place] coronary artery without angina pectoris I25.10 ; [...] agents L24.89 and Hospital discharge follow-up Z09 [facility] [id number] [place] [id number] July, [facility] [id number] [place] [id number] July, Type 2 diabetes mellitus with diabetic neuropathy, unspecified E11.40 [facility] [id number] [place] [id number] July, Type 2 diabetes mellitus with diabetic neuropathy, unspecified E11.40 and Rheumatoid arthritis of left wrist without organ or system involvement with positive rheumatoid factor M05.732 [facility] [address] [id number] [place] [id number] July, [facility] [id number] [place] [phone] July, [facility] [id number] [place] [id number] Jun, [facility] [id number] [place] [id number] Jun, [facility] [id number] [place] [address] Jun, 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 [facility] [id number] [place] [phone] Jun, [facility] [id number] [place] [address] Jun, 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 [facility] [id number] [place] [phone] Jun, [facility] [id number] [place] [address] Jun, [facility] [address] [address] Jun, Encounter for PPD test Z11.1 ; Rheumatoid arthritis with rheumatoid factor of right wrist without organ or systems involvement M05.731 and Rheumatoid arthritis of left wrist without organ or system involvement with positive rheumatoid factor M05.732 [place] [address] [address] Jun, Type 2 diabetes mellitus with diabetic neuropathy, unspecified E11.40 [place] [address] [address] May, Type 2 diabetes mellitus with diabetic neuropathy, unspecified E11.40 ; Emphysema, unspecified J43.9 ; Rheumatoid arthritis with rheumatoid factor of right wrist without organ or systems involvement M05.731 ; Rheumatoid arthritis of left wrist without organ or system involvement with positive rheumatoid factor M05.732 and Chronic pain G89.29 [place] [address] [address] May, [place] [address] [address] May, Swelling of hand joint M25.449 ; Ankle swelling M25.473 and Joint pain M25.50 [place] [address] [address] May, Emphysema, unspecified J43.9 [place] [address] [address] May, Gastroenteritis K52.9 and Hypertension I10 [place] [address] [address] Apr, [place] [address] [address] Apr, [place] [address] [address] Apr, [place] [address] [address] Apr, Type 2 diabetes mellitus with diabetic neuropathy, unspecified E11.40 ; Emphysema, unspecified J43.9 ; Atherosclerotic heart disease of [place] coronary artery without angina pectoris I25.10 ; Migraine without aura, not intractable, with status migrainosus G43.001 ; Gastro-esophageal reflux disease without esophagitis K21.9 ; CAD (coronary artery disease) I25.10 ; Hypertension I10 ; Hyperlipemia E78.5 ; Allergic rhinitis J30.9 ; Neuropathy G62.9 ; Anxiety associated with depression F41.8 and Injury of left hand S69.92XA [address] [address] Apr, [address] [address] Apr, [address] [address] Apr, Type 2 diabetes mellitus with diabetic neuropathy, unspecified E11.40 ; Emphysema, unspecified J43.9 ; Essential (primary) hypertension I10 ; Atherosclerotic heart disease of [place] coronary artery without angina pectoris I25.10 ; Gastro-esophageal reflux disease without esophagitis K21.9 ; CAD (coronary artery disease) I25.10 ; Hyperlipemia E78.5 ; Hypertension I10 ; History of solitary pulmonary nodule Z87.898 ; Allergic rhinitis J30.9 ; Chronic pain G89.29 and Depression with anxiety F41.8 [place] [address] [id number] [place] [phone] Mar, [address] [address] Mar, Allergic rhinitis J30.9 ; URI (upper respiratory infection) J06.9 and Other viral agents as the cause of diseases classified elsewhere B97.89 [facility] [id number] [place] [phone] Feb, Acute nasopharyngitis [common cold] J00 and Acute diarrhea R19.[id number] [place] [address] Feb, Depression F32.9 [place] [address] [address] Jan, Otitis media, right H66.91 [place] [address] [address] Jan, [place] [address] [address] Jan, Type 2 diabetes mellitus with diabetic neuropathy, unspecified E11.40 [place] [address] [address] Jan, [place] [address] [address] Jan, Hyperlipemia E78.5 [place] [address] [address] Jan, Type 2 diabetes mellitus with diabetic neuropathy, unspecified E11.40 ; Emphysema, unspecified J43.9 ; CAD (coronary artery disease) I25.10 and Hyperlipemia E78.5 [place] [id number] [place] [address] Dec, Allergic rhinitis J30.9 and Fungal infection B49 [place] [id number] [place] [address] Dec, [place] [id number] [place] [address] Dec, [place] [address] [address] Dec, Chest pain R07.9 ; CAD (coronary artery disease) I25.10 ; Hypertension I10 and Hyperlipemia E78.5 [place] [id number] [place] [phone] 08 Dec, 2014 Pain in thoracic spine M54.6 ; Gastro-esophageal reflux disease without esophagitis K21.9 ; Emphysema, unspecified J43.9 and Migraine without aura, not intractable, with status migrainosus G43.001 [place] [id number] [place] [address] Dec, [place] [address] [id number] [place] [address] Nov, Influenza vaccine administered V04.81 [place] [address] [address] Nov, [place] [address] [address] Sep, [place] [address] [address] Sep, [place] [id number] [place] [address] Sep, CAD (coronary artery disease) 414.00 and Diabetes type 2, uncontrolled 250.02 [place] [id number] [place] [address] Sep, CAD (coronary artery disease) 414.00 ; [...] unspecified Medical History Atherosclerotic heart disease of [place] coronary artery without angina pectoris Medical History [...]
--- OUTSIDE RECORDS SUMMARY | 2018-08-23 17:49 | XMS REPORT ---
Author Author CLAU DELEON Organization [facility] Address [address] [place] [address] Care Team Providers Care Diploma Pharmacy Technician Name Role Phone DELEONCLAU Moran Unavailable PROBLEMS Type Condition ICD9-CM Code STV05-KM Code Onset Dates Condition Status SNOMED Code Problem Neuropathy G62.9 Active 860290654 Problem Other hammer toe(s) (acquired), right foot M20.41 Active 753681350 Problem Other hammer toe(s) (acquired), left foot M20.42 Active 43701223 Problem Anxiety F41.9 Active 72475991 Problem Type 2 diabetes mellitus with diabetic neuropathy, unspecified E11.40 Active 08637218 Problem Hammer toe of left foot M20.42 Active 264370082 Problem Hyperlipemia E78.5 Active 61404225 Problem Hypertension I10 Active 96493508 Problem COPD with exacerbation J44.1 Active 384138811607207 Problem Tobacco abuse Z72.0 Active 348019003 Problem COPD with acute exacerbation J44.1 Active 901023416 Problem Back pain of lumbar region with sciatica M54.40 Active 518034333 Problem Allergic rhinitis J30.9 Active 07205209 Problem Anxiety associated with depression F41.8 Active 865063742 Problem Gastro-esophageal reflux disease without esophagitis K21.9 Active 406655229 Problem Emphysema, unspecified J43.9 Active 27774382 Problem Rheumatoid arthritis involving multiple sites with positive rheumatoid factor M05.79 Active 425215873 Problem Primary insomnia F51.01 Active 0008135 Problem Chronic pain G89.29 Active 75219647 Problem Periodontitis K05.30 Active 94903365 Problem Vitamin D deficiency E55.9 Active 85507733 Problem OAB (overactive bladder) N32.81 Active 336415998 Problem Dependence on nocturnal oxygen therapy Z99.81 Active [id number] ALLERGIES No Information ENCOUNTERS Encounter Location Date Diagnosis [facility] [address] [facility] [id number] [address] Oct, [facility] [address] [address] Aug, [facility] [id number] [place] [address] July, Chronic pain G89.29 [facility] [id number] [place] [address] July, [facility] [id number] [place] [address] July, Onychomycosis B35.1 ; Hammer toe of left foot M20.42 and Type 2 diabetes mellitus with diabetic neuropathy, unspecified E11.40 [facility] [id number] [address] July, [facility] [id number] [place] [address] July, Chronic pain G89.29 and Neuropathy G62.9 [facility] [address], [place] [address] July, [facility] [id number] [place] [address] July, [facility] [address], [place] [address] Jun, [facility] [id number] [place] [address] Jun, Chronic pain G89.29 [facility] [address], [place] [address] Jun, [facility] [id number] [place] [address] Jun, [facility] [address], [place] [address] Jun, Visit for TB skin test Z11.1 [place] [address], [place] [address] 16 Jun, 2017 [facility] [id number] [place] [address] Jun, [facility] [address] [place] [address] Jun, Tobacco abuse Z72.0 and Rheumatoid arthritis involving multiple sites with positive rheumatoid factor M05.79 [facility] [id number] [place] [address] Jun, Anxiety F41.9 ; Acute non-recurrent maxillary sinusitis J01.00 and Chronic pain G89.29 [place] [address] [place] [address] Jun, [place] [id number] [place] [address] May, Rheumatoid arthritis involving multiple sites with positive rheumatoid factor M05.79 [facility] [address] [place] [address] May, Chronic pain G89.29 [facility] [address] [place] [address] May, [place] [address] [place] [address] May, [place] [address], [place] [address] May, [facility] [address] [place] [address] May, Type 2 diabetes mellitus with diabetic neuropathy, unspecified E11.40 [facility] [address], [place] [address] May, Type 2 diabetes mellitus with diabetic neuropathy, unspecified E11.40 ; Emphysema, unspecified J43.9 ; Hypertension I10 ; Hyperlipemia E78.5 ; Vitamin D deficiency E55.9 ; Right medial knee pain M25.561 ; Controlled substance agreement signed Z79.899 ; Chronic pain G89.29 ; Allergic rhinitis J30.9 ; Anxiety associated with depression F41.8 ; Neuropathy G62.9 and Gastro- esophageal reflux disease without esophagitis K21.9 [facility] [id number] [place] [address] Apr, Chronic pain G89.29 [place] [address] [address] 16 Apr, 2017 Other hammer toe(s) (acquired), left foot M20.42 ; Other hammer toe(s) (acquired), right foot M20.41 ; Type 2 diabetes mellitus with diabetic neuropathy, unspecified E11.40 and Onychomycosis B35.1 [place] [address] [address] 2017 Gastro-esophageal reflux disease without esophagitis K21.9 [place] [address] [address] Apr, Controlled substance agreement signed Z79.899 [place] [address] [address] Mar, Chronic pain G89.29 [place] [id number] [place] [address] Mar, Emphysema, unspecified J43.9 and Type 2 diabetes mellitus with diabetic neuropathy, unspecified E11.40 [facility] [id number] [place] [address] Mar, Dysuria R30.0 ; Vaginal candidiasis B37.3 and Acute nonintractable headache, unspecified headache type R51 [place] [id number] [place] [address] Feb, Neuropathy G62.9 and Chronic pain G89.29 [place] [address] [address] Feb, Gastro-esophageal reflux disease without esophagitis K21.9 [facility] [address] [address] Feb, [facility] [address] [address] Feb, Rheumatoid arthritis involving multiple sites with positive rheumatoid factor M05.79 and COPD with acute exacerbation J44.1 [facility] [address] [address] Feb, Vaginal odor N89.8 ; Vaginal irritation N89.8 ; Candidal dermatitis B37.2 and Screening breast examination Z12.31 [facility] [address] [address] Feb, [place] [address] [address] Feb, [facility] [address] [address] Feb, [facility] [address] [address] Feb, COPD with exacerbation J44.1 ; Tobacco abuse counseling Z71.6 ; Tobacco abuse Z72.0 ; Rheumatoid arthritis involving multiple sites with positive rheumatoid factor M05.79 and Hyperlipemia E78.5 [facility] [address] [address] Feb, [facility] [address] [id number] Jan, [facility] [address] [address] Jan, Chronic pain G89.29 [facility] [address] [id number] Jan, Dental examination Z01.20 [facility] [address] [address] Jan, Back pain of lumbar region with sciatica M54.40 [facility] [id number] [place] [address] 15 Jan, 2017 Acute bacterial conjunctivitis of both eyes H10.33 [facility] [address] [address] 02 Jan, 2017 Chronic pain G89.29 [place] [address] [address] Dec, Type 2 diabetes mellitus with diabetic neuropathy, unspecified E11.40 ; Hypertension I10 ; Hyperlipemia E78.5 ; Gastro-esophageal reflux disease without esophagitis K21.9 ; Anxiety associated with depression F41.8 ; Allergic rhinitis J30.9 ; Neuropathy G62.9 and Dependence on nocturnal oxygen therapy Z99.81 [place] [address] [address] Dec, [place] [address] [address] Dec, [place] [address] [address] Dec, Encounter for immunization Z23 [place] [address] [address] 05 Dec, 2016 Type 2 diabetes mellitus with diabetic neuropathy, unspecified E11.40 and Chronic pain G89.29 [place] [address] [address] Nov, Gastro-esophageal reflux disease without esophagitis K21.9 [place] [address] [address] 11 Nov, 2016 Peripheral edema R60.9 and Chest pain in adult R07.9 [place] [address] [address] 07 Nov, 2016 Chronic pain G89.29 [place] [address] [address] Oct, [facility] [id number] [place] [address] Oct, [facility] [id number] [place] [address] Oct, Rheumatoid arthritis with rheumatoid factor of right wrist without organ or systems involvement M05.731 [facility] [id number] [place] [address] Oct, [facility] [id number] [place] [address] Oct, Acute exacerbation of chronic obstructive pulmonary disease (COPD) J44.1 and Canker sore K12.0 [facility] [id number] [place] [address] Oct, [facility] [id number] [place] [address] Oct, [facility] [id number] [place] [address] Oct, Chronic pain G89.29 [facility] [address] [id number] Oct, Dental examination Z01.20 [facility] [id number] [place] [address] Oct, Dental examination Z01.20 and Periodontitis K05.30 [facility] [id number] [place] [id number] Oct, Dental examination Z01.20 [facility] [id number] [place] [address] Sep, Abscess L02.91 [facility] [id number] [place] [address] Sep, Dental examination Z01.20 [facility] [id number] [place] [address] Sep, [facility] [id number] [id number] Sep, Dental examination Z01.20 and Dental caries K02.9 [place] [id number] [place] [address] Sep, Primary insomnia F51.01 and Anxiety associated with depression F41.8 [place] [id number] [place] [address] Sep, Rheumatoid arthritis with rheumatoid factor of right wrist without organ or systems involvement M05.[address] [address] Sep, Chronic pain G89.29 [place] [id number] [place] [address] Sep, Type 2 diabetes mellitus with diabetic neuropathy, unspecified E11.40 ; Emphysema, unspecified J43.9 ; Gastro-esophageal reflux disease without esophagitis K21.9 ; Hypertension I10 ; Hyperlipemia E78.5 ; Anxiety associated with depression F41.8 ; Chronic pain G89.29 ; Vitamin D deficiency E55.9 and Primary insomnia F51.01 [place] [address] [place] [address] 16 Aug, 2016 Anxiety associated with depression F41.8 [place] [id number] [place] [address] Aug, Chronic pain G89.29 and Neuropathy G62.9 [place] [id number] [place] [address] Aug, Type 2 diabetes mellitus with diabetic neuropathy, unspecified E11.40 ; Rheumatoid arthritis involving multiple sites with positive rheumatoid factor M05.79 ; Vitamin D deficiency E55.9 ; Anxiety associated with depression F41.8 and Primary insomnia F51.01 [place] [address] [place] [address] July, Emphysema, unspecified J43.9 [place] [address] [place] [address] July, Allergic rhinitis J30.9 [place] [id number] [place] [address] July, Allergic rhinitis J30.9 ; Emphysema, unspecified J43.9 and Rheumatoid arthritis with rheumatoid factor of right wrist without organ or systems involvement M05.731 [place] [id number] [place] [address] July, Neuropathy G62.9 and Chronic pain G89.29 [place] [address] [address] July, Rheumatoid arthritis involving multiple sites with positive rheumatoid factor M05.79 [facility] [id number] [place] [address] Jun, [place] [id number] [place] [address] Jun, Neuropathy G62.9 and Chronic pain G89.29 [place] [id number] [place] [address] May, Neuropathy G62.9 and Chronic pain G89.29 [place] [id number] [place] [address] May, [place] [id number] [place] [address] May, [place] [id number] [place] [address] May, Type 2 diabetes mellitus with diabetic [...] system involvement with positive rheumatoid factor M05.732 [place] [address] [address] 14 Apr, 2016 Chronic pain G89.29 [place] [address] [address] Mar, Gastro-esophageal reflux disease without esophagitis K21.9 [place] [address] [address] Mar, [place] [address] [address] Mar, Rheumatoid arthritis with rheumatoid factor of right wrist without organ or systems involvement M05.731 [place] [address] [address] Mar, Chronic pain G89.29 [place] [address] [address] Feb, Hyperlipemia E78.5 [place] [address] [address] Feb, Abnormal breath sounds R06.89 ; COPD with exacerbation J44.1 and Fatigue, unspecified type R53.83 [place] [id number] [place] [address] Feb, Neuropathy G62.9 ; Abnormal lung sounds R09.89 and Bronchitis J40 [facility] [address] [address] Feb, Bronchitis J40 [place] [address] [address] Feb, Chronic pain G89.29 [place] [address] [address] Jan, Type 2 diabetes mellitus with diabetic neuropathy, unspecified E11.40 ; Rheumatoid arthritis with rheumatoid factor of right wrist without organ or systems involvement M05.731 and Hyperlipemia E78.5 [place] [address] [place] [address] Jan, Rheumatoid arthritis with rheumatoid factor of right wrist without organ or systems involvement M05.731 [place] [address] [address] Jan, De Quervain's disease (radial styloid tenosynovitis) M65.4 ; Closed nondisplaced fracture of scaphoid of left wrist, unspecified portion of scaphoid, initial encounter S62.002A and Peripheral tear of medial meniscus of left knee, unspecified whether old or current tear, initial encounter S83.222A [facility] [id number] [place] [address] Jan, Hypertension I10 ; Type 2 diabetes mellitus with diabetic neuropathy, unspecified E11.40 ; Hyperlipemia E78.5 ; Allergic rhinitis J30.9 ; Neuropathy G62.9 ; Rheumatoid arthritis with rheumatoid factor of right wrist without organ or systems involvement M05.731 ; Acute non-recurrent maxillary sinusitis J01.00 and Chronic pain G89.29 [place] [address] [place] [address] Dec, [place] [id number] [place] [address] Dec, [place] [id number] [place] [address] Dec, Type 2 diabetes mellitus with diabetic neuropathy, unspecified E11.40 ; Emphysema, unspecified J43.9 ; Gastro-esophageal reflux disease without esophagitis K21.9 ; Hypertension I10 ; Hyperlipemia E78.5 ; Rheumatoid arthritis with rheumatoid factor of right wrist without organ or systems involvement M05.731 ; Elevated white blood cell count, unspecified D72.829 ; Acute non- recurrent frontal sinusitis J01.10 and Chronic pain G89.29 [place] [id number] [place] [address] Nov, [place] [id number] [place] [address] Nov, Elevated white blood cell count, unspecified D72.829 ; Encounter for immunization Z23 ; Rheumatoid arthritis with rheumatoid factor of right wrist without organ or systems involvement M05.731 ; Injury of left hand S69.92XA ; Pain in left knee M25.562 and Other chronic pain G89.29 [place] [id number] [place] [address] Nov, [place] [address] [address] Nov, [place] [address] [address] Oct, [place] [id number] [place] [address] Oct, Hyperlipemia E78.5 [place] [id number] [place] [address] Oct, [place] [id number] [place] [address] Oct, Type 2 diabetes mellitus with diabetic neuropathy, unspecified E11.40 ; Neuropathy G62.9 ; Hypertension I10 ; Chronic pain G89.29 and Hyperlipemia E78.5 [place] [id number] [place] [address] Oct, Emphysema, unspecified J43.9 and Rheumatoid arthritis of left wrist without organ or system involvement with positive rheumatoid factor M05.732 [facility] [id number] [place] [address] Sep, Chronic pain syndrome G89.4 [place] [id number] [place] [address] Sep, [facility] [id number] [place] [address] Sep, [facility] [address] [address] Sep, Closed nondisplaced fracture of scaphoid of left wrist, unspecified portion of scaphoid, initial encounter S62.002A [facility] [address] [address] Sep, Type 2 diabetes mellitus with diabetic neuropathy, unspecified E11.40 ; Hypertension I10 ; Hyperlipemia E78.5 and Acute non-recurrent maxillary sinusitis J01.00 [place] [id number] [place] [address] Sep, [place] [id number] [place] [address] Sep, [facility] [address] [address] Sep, [facility] [id number] [place] [address] Sep, [facility] [id number] [place] [address] Aug, Epigastric pain R10.13 and Right upper quadrant pain R10.11 [place] [id number] [place] [address] Aug, Closed nondisplaced fracture of scaphoid of left wrist, unspecified portion of scaphoid, initial encounter S62.002A [facility] [id number] [place] [address] Aug, [facility] [id number] [place] [address] Aug, [facility] [id number] [place] [address] Aug, Shortness of breath R06.02 ; Epigastric pain R10.13 and Injury of left lower arm, initial encounter S59.912A [place] [id number] [place] [address] Aug, 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, unspecified vessel or lesion type I25.119 ; Pulmonary emphysema, unspecified emphysema type J43.9 and Snoring R06.83 [place] [address] [address] Aug, [place] [address] [address] Aug, Emphysema, unspecified J43.9 ; Atherosclerotic heart disease of wilton coronary artery without angina pectoris I25.10 and Hypertension I10 [place] [address] [address] July, [place] [address] [address] July, Closed nondisplaced fracture of scaphoid of left wrist, unspecified portion of scaphoid, initial encounter S62.002A [place] [id number] [place] [address] July, [place] [id number] [place] [address] July, Type 2 diabetes mellitus with diabetic [...] agents L24.89 and Hospital discharge follow-up Z09 [place] [address] [address] July, [facility] [address], [place] [address] July, Type 2 diabetes mellitus with diabetic neuropathy, unspecified E11.40 [facility] [address] [address] July, Type 2 diabetes mellitus with diabetic neuropathy, unspecified E11.40 and Rheumatoid arthritis of left wrist without organ or system involvement with positive rheumatoid factor M05.732 [facility] [address], [place] [address] July, [facility] [id number] [place] [address] July, [facility] [address] [place] [address] Jun, [facility] [address] [place] [address] Jun, [facility] [address], [place] [address] Jun, 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 [facility] [address] [place] [address] Jun, [facility] [address] [address] Jun, 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 [facility] [address], [place] [address] Jun, [facility] [address] [place] [address] Jun, [facility] [address] [place] [address] Jun, Encounter for PPD test Z11.1 ; Rheumatoid arthritis with rheumatoid factor of right wrist without organ or systems involvement M05.731 and Rheumatoid arthritis of left wrist without organ or system involvement with positive rheumatoid factor M05.732 [place] [id number] [place] [address] Jun, Type 2 diabetes mellitus with diabetic neuropathy, unspecified E11.40 [place] [id number] [place] [address] May, Type 2 diabetes mellitus with diabetic neuropathy, unspecified E11.40 ; Emphysema, unspecified J43.9 ; Rheumatoid arthritis with rheumatoid factor of right wrist without organ or systems involvement M05.731 ; Rheumatoid arthritis of left wrist without organ or system involvement with positive rheumatoid factor M05.732 and Chronic pain G89.29 [place] [address] [address] May, [place] [address] [address] [place] [id number] [place] [address] May, Swelling of hand joint M25.449 ; Ankle swelling M25.473 and Joint pain M25.50 [place] [address] [address] [place] [id number] [place] [id number] May, Emphysema, unspecified J43.9 [place] [address] [place] [id number] [place] [address] May, Gastroenteritis K52.9 and Hypertension I10 [place] [address] [address] [place] [id number] [place] [address] Apr, [place] [address] [place] [id number] [place] [address] Apr, [place] [address] [place] [id number] [place] [address] Apr, [place] [address] [address] Apr, Type 2 diabetes mellitus with diabetic [...] F41.8 and Injury of left hand S69.92XA [place] [address] [address] Apr, [address] [address] Apr, [address] [address] Apr, Type 2 diabetes mellitus with diabetic [...] pain G89.29 and Depression with anxiety F41.[address] [address] Mar, [address] [address] Mar, Allergic rhinitis J30.9 ; URI (upper respiratory infection) J06.9 and Other viral agents as the cause of diseases classified elsewhere B97.[address] [facility] [address] [address] Feb, Acute nasopharyngitis [common cold] J00 and Acute diarrhea R19.[address] [address] Feb, Depression F32.[address] [address] Jan, Otitis media, right H66.91 [place] [address] [address] Jan, [place] [address] [address] Jan, Type 2 diabetes mellitus with diabetic neuropathy, unspecified E11.40 [place] [address] [address] Jan, [place] [address] [address] Jan, Hyperlipemia E78.5 [place] [address] [address] Jan, Type 2 diabetes mellitus with diabetic neuropathy, unspecified E11.40 ; Emphysema, unspecified J43.9 ; CAD (coronary artery disease) I25.10 and Hyperlipemia E78.[address] [address] Dec, Allergic rhinitis J30.9 and Fungal infection B49 [address] [address] Dec, [place] [address] [address] Dec, [address] [address] Dec, Chest pain R07.9 ; CAD (coronary artery disease) I25.10 ; Hypertension I10 and Hyperlipemia E78.[address] [address] 08 Dec, 2014 Pain in thoracic spine M54.6 ; Gastro-esophageal reflux disease without esophagitis K21.9 ; Emphysema, unspecified J43.9 and Migraine without aura, not intractable, with status migrainosus G43.[address] [address] Dec, [facility] [address] [place] [id number] [address] Nov, Influenza vaccine administered V04.81 [facility] [id number] [place] [address] Nov, [facility] [id number] [place] [address] Sep, [place] [address] [place] [id number] [place] [address] Sep, [place] [address] [place] [id number] [place] [address] Sep, CAD (coronary artery disease) 414.00 and Diabetes type 2, uncontrolled 250.02 [place] [id number] [place] [address] Sep, CAD (coronary artery disease) 414.00 ; [...]
--- NOTE | 2018-08-23 17:50 | NUR ---
4 hours of bedrest complete. Rt groin site asymptomatic. Pt ambulated to toilet, voided, et to recliner. Dinner ordered.
--- OUTSIDE RECORDS SUMMARY | 2018-08-23 17:51 | XMS REPORT | Continuity of Care Document ---
Author Organization Unknown Address Unknown Allergies Active Description Code Type Severity Reaction Onset Reported/Identified Relationship to Patient Clinical Status Yes Sulfa (Sulfonamide Antibiotics) [id number] Drug Allergy Moderate N/A 02/21/2017 Yes adhesive tape [id number] Drug Allergy Unknown HIVES 02/21/2017 Yes montelukast [id number] Drug Allergy Unknown DIZZY AND DROWS 02/21/2017 Yes adhesive tape [id number] Drug Allergy Mild HIVES 04/18/2018 Yes montelukast [id number] Drug Allergy Mild DIZZY AND DROWS 04/18/2018 Yes Sulfa (Sulfonamide Antibiotics) [id number] Drug Allergy Mild RASH 04/18/2018 Medications There is no data. Problems Date [...] MD Ot I25.10 ATHSCL HEART DISEASE OF [place] CORONARY 01/28/2015 ARVIND CASTELLANOS MD Ot R07.89 OTHER CHEST PAIN 01/28/2015 ARVIND CASTELLANOS MD Ot R94.39 ABNORMAL RESULT OF OTHER CARDIOVASCULAR 01/28/2015 ARVIND CASTELLANOS MD Ot Z68.31 BODY MASS INDEX (BMI) 31.0-31.9, ADULT 01/28/2015 ARVIND CASTELLANOS MD Ot Z79.4 GROUP HOME (CURRENT) USE OF INSULIN 01/28/2015 ARVIND CASTELLANOS MD Ot Z79.899 OTHER GROUP HOME (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 THERAPY 01/28/2015 ARVIND CASTELLANOS MD [...] 05/15/2015 ARVIND CASTELLANOS MD Ot R07.9 05/15/2015 DAMIAN PA, RODERICK Leona Ot E78.5 05/15/2015 DAMIAN PA, RODERICK K Ot I10 05/15/2015 DAMIAN PA, RODERICK K Ot I25.10 05/15/2015 DAMIAN PA, RODERICK K Ot R07.9 05/27/2015 DAMIAN PA, RODERICK K Ot E78.0 05/27/2015 DAMIAN PA, RODERICK K Ot E78.2 05/27/2015 DAMIAN PA, RODERICK K Ot I10 05/27/2015 DAMIAN PA, RODERICK K Ot I25.10 05/27/2015 DAMIAN PA, RODERICK K Ot R07.89 08/02/2015 VALDEZ MCDONNELL MD Ot E11.9 TYPE 2 DIABETES MELLITUS WITHOUT COMPLIC 08/02/2015 VALDEZ MCDONNELL MD Ot E78.5 HYPERLIPIDEMIA, UNSPECIFIED 08/02/2015 VALDEZ MCDONNELL MD Ot E87.6 HYPOKALEMIA 08/02/2015 VALDEZ MCDONNELL MD Ot I10 ESSENTIAL (PRIMARY) HYPERTENSION 08/02/2015 VALDEZ MCDONNELL MD Ot I25.10 ATHSCL HEART DISEASE OF [place] CORONARY 08/02/2015 VALDEZ MCDONNELL MD Ot J44.9 CHRONIC OBSTRUCTIVE PULMONARY DISEASE, U 08/02/2015 VALDEZ MCDONNELL MD Ot M06.9 RHEUMATOID ARTHRITIS, UNSPECIFIED 08/02/2015 VALDEZ MCDONNELL MD Ot R07.9 CHEST PAIN, UNSPECIFIED 08/02/2015 VALDEZ MCDONNELL MD Ot Z95.5 PRESENCE OF CORONARY ANGIOPLASTY IMPLANT 09/18/2015 CLAU DELEON MANAGER MARKET INTELLIGENCE Ot R10.11 RIGHT UPPER QUADRANT PAIN 09/23/2015 CLAU DELEON MANAGER MARKET INTELLIGENCE Ot R10.11 RIGHT UPPER QUADRANT PAIN 09/23/2015 CLAU DELEON MANAGER MARKET INTELLIGENCE Ot R10.11 RIGHT UPPER QUADRANT PAIN 09/25/2015 SHERITA PATTERSON Ot S62.002A UNSP FRACTURE OF NAVICULAR BONE OF LEFT 09/25/2015 SHERITA PATTERSONP Ot X58.XXXA EXPOSURE TO OTHER SPECIFIED FACTORS, INI 09/25/2015 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 Ot Y99.8 OTHER EXTERNAL CAUSE STATUS 09/29/2015 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 Ot S62.002A UNSP FRACTURE OF NAVICULAR BONE OF LEFT 09/29/2015 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 Ot X58.XXXA EXPOSURE TO OTHER SPECIFIED FACTORS, INI 09/29/2015 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 Ot Y99.8 OTHER EXTERNAL CAUSE STATUS 09/30/2015 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 Ot S62.002A UNSP FRACTURE OF NAVICULAR BONE OF LEFT 09/30/2015 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 Ot X58.XXXA EXPOSURE TO OTHER SPECIFIED FACTORS, INI 09/30/2015 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 Ot Y99.8 OTHER EXTERNAL CAUSE STATUS 09/30/2015 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 Ot S62.002A UNSP FRACTURE OF NAVICULAR BONE OF LEFT 09/30/2015 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 Ot X58.XXXA EXPOSURE TO OTHER SPECIFIED FACTORS, INI 09/30/2015 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 Ot Y99.8 OTHER EXTERNAL CAUSE STATUS 10/06/2015 CLAU DELEON MANAGER MARKET INTELLIGENCE Ot R10.11 RIGHT UPPER QUADRANT PAIN 10/06/2015 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 Ot S62.002A UNSP FRACTURE OF NAVICULAR BONE OF LEFT 10/06/2015 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 Ot X58.XXXA EXPOSURE TO OTHER SPECIFIED FACTORS, INI 10/06/2015 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 Ot Y99.8 OTHER EXTERNAL CAUSE STATUS 01/01/2016 CLAU DELEON MANAGER MARKET INTELLIGENCE Ot R93.6 ABNORMAL FINDINGS ON DIAGNOSTIC IMAGING 01/01/2016 CLAU DELEON MANAGER MARKET INTELLIGENCE Ot Z13.820 ENCOUNTER FOR SCREENING FOR OSTEOPOROSIS 01/01/2016 CLAU DELEON MANAGER MARKET INTELLIGENCE Ot R93.6 ABNORMAL FINDINGS ON DIAGNOSTIC IMAGING 01/01/2016 CLAU DELEON MANAGER MARKET INTELLIGENCE Ot Z13.820 ENCOUNTER FOR SCREENING FOR OSTEOPOROSIS 01/05/2016 CLAU DELEON MANAGER MARKET INTELLIGENCE Ot G47.10 HYPERSOMNIA, UNSPECIFIED 01/05/2016 CLAU DELEON MANAGER MARKET INTELLIGENCE Ot I10 ESSENTIAL (PRIMARY) HYPERTENSION 01/05/2016 CLAU DELEON MANAGER MARKET INTELLIGENCE Ot I25.10 ATHSCL HEART DISEASE OF [place] CORONARY 01/05/2016 DELEONCLAU MANAGER MARKET INTELLIGENCE Ot R06.83 SNORING 01/05/2016 PANCHO CLAU R MANAGER MARKET INTELLIGENCE Ot Z95.5 PRESENCE OF CORONARY ANGIOPLASTY IMPLANT 01/05/2016 CLAU DELEON MANAGER MARKET INTELLIGENCE Ot G47.10 HYPERSOMNIA, UNSPECIFIED 01/05/2016 CLAU DELEON R MANAGER MARKET INTELLIGENCE Ot I10 ESSENTIAL (PRIMARY) HYPERTENSION 01/05/2016 DELEONCLAU R MANAGER MARKET INTELLIGENCE Ot I25.10 ATHSCL HEART DISEASE OF [place] CORONARY 01/05/2016 DELEONCLAU MANAGER MARKET INTELLIGENCE Ot R06.83 SNORING 01/05/2016 DELEONCLAU MANAGER MARKET INTELLIGENCE Ot Z95.5 PRESENCE OF CORONARY ANGIOPLASTY IMPLANT 01/12/2016 CLAU DELEON MANAGER MARKET INTELLIGENCE Ot R93.6 ABNORMAL FINDINGS ON DIAGNOSTIC IMAGING 01/12/2016 CLAU DELEON MANAGER MARKET INTELLIGENCE Ot Z13.820 ENCOUNTER FOR SCREENING FOR OSTEOPOROSIS [...] MD Ot I25.10 ATHSCL HEART DISEASE OF [place] CORONARY 03/23/2016 CARLOS HORTON MD Ot J44.9 [...] MD Ot I25.10 ATHSCL HEART DISEASE OF [place] CORONARY 03/24/2016 CARLOS HORTON MD Ot J44.9 CHRONIC OBSTRUCTIVE PULMONARY DISEASE, U 03/24/2016 CARLOS HORTON MD Ot M06.9 RHEUMATOID ARTHRITIS, UNSPECIFIED 03/24/2016 CARLOS HORTON MD Ot M65.4 RADIAL STYLOID TENOSYNOVITIS [DE QUERVAI 05/09/2016 RODERICK LILLY K Ot E78.2 MIXED HYPERLIPIDEMIA 05/09/2016 RODERICK LILLY K Ot I10 ESSENTIAL (PRIMARY) HYPERTENSION 05/09/2016 RODERICK LILLY K Ot I25.10 ATHSCL HEART DISEASE OF [place] CORONARY 05/09/2016 RODERICK LILLY K Ot I65.23 OCCLUSION AND STENOSIS OF [place]AL [place] 05/10/2016 DAMIAN MEDRANO RODERICK K Ot E78.2 MIXED HYPERLIPIDEMIA 05/10/2016 DAMIAN MEDRANO RODERICK K Ot I10 ESSENTIAL (PRIMARY) HYPERTENSION 05/10/2016 RODERICK LILLY K Ot I25.10 ATHSCL HEART DISEASE OF [place] CORONARY 05/10/2016 ELISE LILLYTH K Ot I65.23 OCCLUSION AND STENOSIS OF [place]IL[place]AL [place] 05/10/2016 ELISE LILLYTH K Ot E78.2 MIXED HYPERLIPIDEMIA 05/10/2016 DAMIAN MEDRANO, RODERICK K Ot I10 ESSENTIAL (PRIMARY) HYPERTENSION 05/10/2016 AVTAR LILLYDITH K Ot I25.10 ATHSCL HEART DISEASE OF [place] CORONARY 05/10/2016 ELISE LILLYTH K Ot I65.23 OCCLUSION AND STENOSIS OF [place] 05/12/2016 ELISE LILLYTH K Ot E78.2 MIXED HYPERLIPIDEMIA 05/12/2016 AVTAR LILLYDITH K Ot I10 ESSENTIAL (PRIMARY) HYPERTENSION 05/12/2016 AVTAR LILLYDITH K Ot I25.10 ATHSCL HEART DISEASE OF [place] CORONARY 05/12/2016 RODERICK LILLY Ot I65.23 OCCLUSION AND STENOSIS OF [place] 05/19/2016 CARLOS HORTON MD Ot M23.8X2 OTHER INTERNAL DERANGEMENTS OF LEFT KNEE 05/19/2016 CARLOS HORTON MD Ot Z01.818 ENCOUNTER FOR OTHER PREPROCEDURAL EXAMIN 05/19/2016 CARLOS HORTON MD Ot Z11.2 ENCOUNTER FOR SCREENING FOR OTHER BACTER 05/19/2016 RODERICK LILLY Ot E78.2 MIXED HYPERLIPIDEMIA 05/19/2016 RODERICK LILLY Ot I10 ESSENTIAL (PRIMARY) HYPERTENSION 05/19/2016 RODERICK LILLY Ot I25.10 ATHSCL HEART DISEASE OF [place] CORONARY 05/19/2016 RODERICK LILLY Ot I65.23 OCCLUSION [...] MD Ot I25.10 ATHSCL HEART DISEASE OF [place] CORONARY 05/25/2016 CARLOS HORTON MD Ot J44.9 CHRONIC OBSTRUCTIVE PULMONARY DISEASE, U 05/25/2016 CARLOS HORTON MD Ot M06.9 RHEUMATOID ARTHRITIS, UNSPECIFIED 05/25/2016 CARLOS HORTON MD Ot M22.42 CHONDROMALACIA PATELLAE, LEFT KNEE 05/25/2016 CARLOS HORTON MD Ot M23.8X2 OTHER INTERNAL DERANGEMENTS OF LEFT KNEE 05/25/2016 CARLOS HORTON MD Ot 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 05/26/2016 CARLOS HORTON MD Ot E11.9 TYPE 2 DIABETES MELLITUS WITHOUT COMPLIC 05/26/2016 CARLOS HORTON MD Ot F17.210 NICOTINE DEPENDENCE, CIGARETTES, UNCOMPL 05/26/2016 CARLOS HORTON MD Ot I10 ESSENTIAL (PRIMARY) HYPERTENSION 05/26/2016 CARLOS HORTON MD Ot I25.10 ATHSCL HEART DISEASE OF [place] CORONARY 05/26/2016 CARLOS HORTON MD Ot J44.9 CHRONIC OBSTRUCTIVE PULMONARY DISEASE, U 05/26/2016 CARLOS HORTON MD Ot M06.9 RHEUMATOID ARTHRITIS, UNSPECIFIED 05/26/2016 CARLOS HORTON MD Ot M22.42 CHONDROMALACIA PATELLAE, LEFT KNEE 05/26/2016 CARLOS HORTON MD Ot M23.8X2 OTHER INTERNAL DERANGEMENTS OF LEFT KNEE 05/26/2016 CARLOS HORTON MD Ot 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 05/31/2016 CARLOS HORTON MD Ot E11.9 TYPE 2 DIABETES MELLITUS WITHOUT COMPLIC 05/31/2016 CARLOS HORTON MD Ot F17.210 NICOTINE DEPENDENCE, CIGARETTES, UNCOMPL 05/31/2016 CARLOS HORTON MD Ot I10 ESSENTIAL (PRIMARY) HYPERTENSION 05/31/2016 CARLOS HORTON MD Ot I25.10 ATHSCL HEART DISEASE OF [place] CORONARY 05/31/2016 CARLOS HORTON MD Ot J44.9 CHRONIC OBSTRUCTIVE PULMONARY DISEASE, U 05/31/2016 CARLOS HORTON MD Ot M06.9 RHEUMATOID ARTHRITIS, UNSPECIFIED 05/31/2016 CARLOS HORTON MD Ot M22.42 CHONDROMALACIA PATELLAE, LEFT KNEE 05/31/2016 CARLOS HORTON MD Ot M23.8X2 OTHER INTERNAL DERANGEMENTS OF LEFT KNEE 05/31/2016 CARLOS HORTON MD Ot Z79.899 OTHER GROUP HOME (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 THERAPY 05/31/2016 RODERICK LILLY Ot E78.2 MIXED HYPERLIPIDEMIA 05/31/2016 RODERICK LILLY Ot I10 ESSENTIAL (PRIMARY) HYPERTENSION 05/31/2016 RODERICK LILLY Ot I25.10 ATHSCL HEART DISEASE OF [place] CORONARY 05/31/2016 RODERICK LILLY Ot I65.23 OCCLUSION AND STENOSIS OF [place] 06/01/2016 CARLOS HORTON MD Ot E11.9 TYPE 2 DIABETES MELLITUS WITHOUT COMPLIC 06/01/2016 CARLOS HORTON MD, Ot F17.210 NICOTINE DEPENDENCE, CIGARETTES, UNCOMPL 06/01/2016 CARLOS HORTON MD, Ot I10 ESSENTIAL (PRIMARY) HYPERTENSION 06/01/2016 CARLOS HORTON MD, Ot I25.10 ATHSCL HEART DISEASE OF [place] CORONARY 06/01/2016 CARLOS HORTON MD, Ot J44.9 CHRONIC OBSTRUCTIVE PULMONARY DISEASE, U 06/01/2016 CARLOS HORTON MD Ot M06.9 RHEUMATOID ARTHRITIS, UNSPECIFIED 06/01/2016 CARLOS HORTON MD Ot M22.42 CHONDROMALACIA PATELLAE, LEFT KNEE 06/01/2016 CARLOS HORTON MD Ot M23.8X2 OTHER INTERNAL DERANGEMENTS OF LEFT KNEE 06/01/2016 CARLOS HORTON MD Ot 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 02/21/2017 JAN YANEZ DO [...] MD Ot I25.10 ATHSCL HEART DISEASE OF [place] CORONARY 02/24/2017 EMANUEL JARAMILLO, ARVIND Mcdaniel Ot R07.9 CHEST PAIN, UNSPECIFIED 02/24/2017 RODERICK LILLY Ot E78.5 HYPERLIPIDEMIA, UNSPECIFIED 02/24/2017 RODERICK LILLY Ot I10 ESSENTIAL (PRIMARY) HYPERTENSION 02/24/2017 RODERICK LILLY Ot I25.10 ATHSCL HEART DISEASE OF [place] CORONARY 02/24/2017 RODERICK LILLY Ot R07.9 CHEST PAIN, UNSPECIFIED 02/24/2017 RODERICK LILLY Ot E78.0 PURE HYPERCHOLESTEROLEMIA 02/24/2017 RODERICK LILLY Ot E78.2 MIXED HYPERLIPIDEMIA 02/24/2017 RODERICK LILLY Ot I10 ESSENTIAL (PRIMARY) HYPERTENSION 02/24/2017 RODERICK LILLY Ot I25.10 ATHSCL HEART DISEASE OF [place] CORONARY 02/24/2017 RODERICK LILLY Ot R07.89 OTHER CHEST PAIN 02/24/2017 CLAU DELEON APRN Ot R10.11 RIGHT UPPER QUADRANT PAIN 02/24/2017 SHERITA PATTERSON Ot S62.002A UNSP FRACTURE OF NAVICULAR BONE OF LEFT 02/24/2017 SHERITA PATTERSON Ot X58.XXXA EXPOSURE TO OTHER [...] LILLY Ot I25.10 ATHSCL HEART DISEASE OF [place] CORONARY 02/24/2017 RODERICK LILLY Ot I65.23 OCCLUSION AND STENOSIS OF [place]AL [place] 02/24/2017 RODERICK LILLY Ot E78.2 MIXED HYPERLIPIDEMIA 02/24/2017 RODERICK LILLY Ot I10 ESSENTIAL (PRIMARY) HYPERTENSION 02/24/2017 RODERICK LILLY Ot I25.10 ATHSCL HEART DISEASE OF [place] CORONARY 02/24/2017 RODERICK LILLY Ot I65.23 OCCLUSION AND STENOSIS OF BILATERAL [place] 02/28/2017 JAN YANEZ DO Ot D12.2 BENIGN NEOPLASM OF ASCENDING COLON 02/28/2017 JAN YANEZ DO Ot F17.210 NICOTINE DEPENDENCE, CIGARETTES, UNCOMPL 02/28/2017 JAN YANEZ DO Ot F32.9 MAJOR DEPRESSIVE DISORDER, SINGLE EPISOD 02/28/2017 JAN YANEZ DO Ot I11.9 HYPERTENSIVE HEART DISEASE WITHOUT HEART 02/28/2017 JAN YANEZ DO Ot I25.10 ATHSCL HEART DISEASE OF [place] CORONARY 02/28/2017 JAN YANEZ DO Ot J44.9 CHRONIC OBSTRUCTIVE PULMONARY DISEASE, U 02/28/2017 JAN YANEZ DO Ot K21.9 GASTRO-ESOPHAGEAL REFLUX DISEASE WITHOUT 02/28/2017 JAN YANEZ DO Ot K25.9 GASTRIC ULCER, UNSP ACUTE OR CHRONIC, 02/28/2017 JAN YANEZ DO Ot K52.9 NONINFECTIVE GASTROENTERITIS AND COLITIS 02/28/2017 JAN YANEZ DO Ot K63.89 OTHER SPECIFIED DISEASES OF INTESTINE 02/28/2017 JAN YANEZ DO Ot Z79.84 GROUP HOME (CURRENT) USE OF ORAL HYPOGLYC 02/28/2017 JAN YANEZ DO Ot 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 02/28/2017 JAN YANEZ DO Ot Z95.5 PRESENCE OF CORONARY ANGIOPLASTY IMPLANT 03/02/2017 ARVIND CASTELLANOS MD Ot E78.5 HYPERLIPIDEMIA, UNSPECIFIED 03/02/2017 ARVIND CASTELLANOS MD Ot I10 ESSENTIAL (PRIMARY) HYPERTENSION 03/02/2017 ARVIND CASTELLANOS MD Ot I25.10 ATHSCL HEART DISEASE OF [place] CORONARY 03/02/2017 ARVIND CASTELLANOS MD Ot R07.9 CHEST PAIN, UNSPECIFIED 03/02/2017 RODERICK LILLY Ot E78.5 HYPERLIPIDEMIA, UNSPECIFIED 03/02/2017 RODERICK LILLY Ot I10 ESSENTIAL (PRIMARY) HYPERTENSION 03/02/2017 RODERICK LILLY Ot I25.10 ATHSCL HEART DISEASE OF [place] CORONARY 03/02/2017 RODERICK LILLY Ot R07.9 CHEST PAIN, UNSPECIFIED 03/02/2017 RODERICK LILLY Ot E78.0 PURE HYPERCHOLESTEROLEMIA 03/02/2017 RODERICK LILLY Ot E78.2 MIXED HYPERLIPIDEMIA 03/02/2017 RODERICK LILLY Ot I10 ESSENTIAL (PRIMARY) HYPERTENSION 03/02/2017 RODERICK LILLY Ot I25.10 ATHSCL HEART DISEASE OF [place] CORONARY 03/02/2017 RODERICK LILLY Ot R07.89 OTHER [...] LILLY Ot I25.10 ATHSCL HEART DISEASE OF [place] CORONARY 03/02/2017 RODERICK LILLY Ot I65.23 OCCLUSION AND STENOSIS OF [place]AL [place] 03/02/2017 RODERICK LILLY Ot E78.2 MIXED HYPERLIPIDEMIA 03/02/2017 RODERICK LILLY Ot I10 ESSENTIAL (PRIMARY) HYPERTENSION 03/02/2017 RODERICK LILLY Ot I25.10 ATHSCL HEART DISEASE OF [place] CORONARY 03/02/2017 RODERICK LILLY Ot I65.23 OCCLUSION [...] DO Ot I25.10 ATHSCL HEART DISEASE OF [place] CORONARY 03/03/2017 JAN YANEZ DO Ot J44.9 CHRONIC OBSTRUCTIVE PULMONARY DISEASE, U 03/03/2017 JAN YANEZ DO Ot K21.9 GASTRO-ESOPHAGEAL REFLUX DISEASE WITHOUT 03/03/2017 JAN YANEZ DO Ot K25.9 GASTRIC ULCER, UNSP ACUTE OR CHRONIC, 03/03/2017 JAN YANEZ DO Ot K52.9 NONINFECTIVE GASTROENTERITIS AND COLITIS 03/03/2017 JAN YANEZ DO Ot K63.89 OTHER SPECIFIED DISEASES OF INTESTINE 03/03/2017 JAN YANEZ DO Ot Z79.84 GROUP HOME (CURRENT) USE OF ORAL HYPOGLYC 03/03/2017 JAN YANEZ DO Ot 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 03/03/2017 JAN YANEZ DO Ot Z95.5 PRESENCE OF CORONARY ANGIOPLASTY IMPLANT 03/17/2017 ARVIND CASTELLANOS MD Ot E78.5 HYPERLIPIDEMIA, UNSPECIFIED 03/17/2017 ARVIND CASTELLANOS MD Ot I10 ESSENTIAL (PRIMARY) HYPERTENSION 03/17/2017 ARVIND CASTELLANOS MD Ot I25.10 ATHSCL HEART DISEASE OF [place] CORONARY 03/17/2017 ARVIND CASTELLANOS MD Ot R07.9 CHEST PAIN, UNSPECIFIED 03/17/2017 RODERICK LILLY Ot E78.5 HYPERLIPIDEMIA, UNSPECIFIED 03/17/2017 RODERICK LILLY Ot I10 ESSENTIAL (PRIMARY) HYPERTENSION 03/17/2017 RODERICK LILLY Ot I25.10 ATHSCL HEART DISEASE OF [place] CORONARY 03/17/2017 RODERICK LILLY Ot R07.9 CHEST PAIN, UNSPECIFIED 03/17/2017 RODERICK LILLY Ot E78.0 PURE HYPERCHOLESTEROLEMIA 03/17/2017 RODERICK LILLY Ot E78.2 MIXED HYPERLIPIDEMIA 03/17/2017 RODERICK LILLY Ot I10 ESSENTIAL (PRIMARY) HYPERTENSION 03/17/2017 RODERICK LILLY Ot I25.10 ATHSCL HEART DISEASE OF [place] CORONARY 03/17/2017 RODERICK LILLY Ot R07.89 OTHER CHEST PAIN 03/17/2017 CLAU DELEON APRN Ot R10.11 RIGHT UPPER QUADRANT PAIN 03/17/2017 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 Ot S62.002A UNSP FRACTURE OF NAVICULAR BONE OF LEFT 03/17/2017 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 Ot X58.XXXA EXPOSURE TO OTHER SPECIFIED FACTORS, INI 03/17/2017 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 Ot Y99.8 OTHER EXTERNAL CAUSE STATUS 03/17/2017 CLAU DELEON APRN Ot R93.6 ABNORMAL FINDINGS ON DIAGNOSTIC IMAGING 03/17/2017 CLAU DELEON APRN Ot Z13.820 ENCOUNTER FOR SCREENING FOR OSTEOPOROSIS 03/17/2017 RODERICK LILLY Ot E78.2 MIXED HYPERLIPIDEMIA 03/17/2017 RODERICK LILLY Ot I10 ESSENTIAL (PRIMARY) HYPERTENSION 03/17/2017 RODERICK LILLY Ot I25.10 ATHSCL HEART DISEASE OF [place] CORONARY 03/17/2017 RODERICK LILLY Ot I65.23 OCCLUSION AND STENOSIS OF BILATERAL [place] 03/17/2017 RODERICK LILLY Ot E78.2 MIXED HYPERLIPIDEMIA 03/17/2017 RODERICK LILLY Ot I10 ESSENTIAL (PRIMARY) HYPERTENSION 03/17/2017 RODERICK LILLY Ot I25.10 ATHSCL HEART DISEASE OF [place] CORONARY 03/17/2017 RODERICK LILLY Ot I65.23 OCCLUSION AND STENOSIS OF BILATERAL [place] 03/17/2017 CLAU DELEON KEYANNA Ot Z12.31 ENCNTR SCREEN MAMMOGRAM FOR MALIGNANT NE 03/18/2017 ILZHUGO Nice DO Ot E11.9 TYPE 2 DIABETES MELLITUS WITHOUT COMPLIC 03/18/2017 LIZHUGO Nice DO Ot E78.5 HYPERLIPIDEMIA, UNSPECIFIED 03/18/2017 LIZHUGO Nice DO Ot F17.210 NICOTINE DEPENDENCE, CIGARETTES, UNCOMPL 03/18/2017 [facility] Ot F32.9 MAJOR DEPRESSIVE DISORDER, SINGLE EPISOD 03/18/2017 DORENESEAMUSHUGO Nice DO Ot F41.9 ANXIETY DISORDER, UNSPECIFIED 03/18/2017 LIZHUGO Nice DO Ot I10 ESSENTIAL (PRIMARY) HYPERTENSION 03/18/2017 LIZHUGO Nice DO Ot I25.10 ATHSCL HEART DISEASE OF [place] CORONARY 03/18/[facility] I25.2 OLD MYOCARDIAL INFARCTION 03/18/2017 [facility] [place] Ot J44.1 CHRONIC OBSTRUCTIVE PULMONARY DISEASE W 03/18/2017 LIZHUGO Nice DO Ot K21.9 GASTRO-ESOPHAGEAL REFLUX DISEASE WITHOUT 03/18/2017 LIZMADDYHUGO Nice DO Ot M06.9 RHEUMATOID ARTHRITIS, UNSPECIFIED 03/18/2017 LIZHUGO Nice DO Ot R07.9 CHEST PAIN, UNSPECIFIED 03/18/2017 DORENESEAMUSHUGO Nice DO Ot R09.02 HYPOXEMIA 03/18/2017 LIZHUGO Nice DO Ot Z86.73 PRSNL HX OF TIA (TIA), AND CEREB INFRC W 03/24/2017 JAN YANEZ DO Ot D12.2 BENIGN NEOPLASM OF ASCENDING COLON 03/24/2017 JAN YANEZ DO Ot F17.210 NICOTINE DEPENDENCE, CIGARETTES, UNCOMPL 03/24/2017 JAN YANEZ DO Ot F32.9 MAJOR DEPRESSIVE DISORDER, SINGLE EPISOD 03/24/2017 JAN YANEZ DO Ot I11.9 HYPERTENSIVE HEART DISEASE WITHOUT HEART 03/24/2017 JAN YANEZ DO Ot I25.10 ATHSCL HEART DISEASE OF [place] CORONARY 03/24/2017 JAN YANEZ DO Ot J44.9 CHRONIC OBSTRUCTIVE PULMONARY DISEASE, U 03/24/2017 JAN YANEZ DO Ot K21.9 GASTRO-ESOPHAGEAL REFLUX DISEASE WITHOUT 03/24/2017 JAN YANEZ DO Ot K25.9 GASTRIC ULCER, UNSP ACUTE OR CHRONIC, 03/24/2017 JAN YANEZ DO Ot K52.9 NONINFECTIVE GASTROENTERITIS AND COLITIS 03/24/2017 JAN YANEZ DO Ot K63.89 OTHER SPECIFIED DISEASES OF INTESTINE 03/24/2017 JAN YANEZ DO Ot Z79.84 GROUP HOME (CURRENT) USE OF ORAL HYPOGLYC 03/24/2017 JAN YANEZ DO Ot Z79.899 OTHER GROUP HOME (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 THERAPY 03/24/2017 JAN YANEZ DO Ot Z95.5 PRESENCE OF CORONARY ANGIOPLASTY IMPLANT 11/13/2017 Ot R22.43 LOCALIZED SWELLING, MASS AND LUMP, LOWER 11/14/2017 CLAU DELEON APRN Ot Z12.31 ENCNTR SCREEN MAMMOGRAM FOR MALIGNANT NE 11/23/2017 Ot R22.43 LOCALIZED SWELLING, MASS AND LUMP, LOWER 11/23/2017 ARVIND CASTELLANOS MD Ot E11.9 TYPE 2 DIABETES MELLITUS WITHOUT COMPLIC 11/23/2017 ARVIND CASTELLANOS MD Ot E78.5 HYPERLIPIDEMIA, UNSPECIFIED 11/23/2017 ARVIND CASTELLANOS MD Ot I10 ESSENTIAL (PRIMARY) HYPERTENSION 11/23/2017 ARVIND CASTELLANOS MD, Ot I25.10 ATHSCL HEART DISEASE OF [place] CORONARY 11/23/2017 ARVIND CASTELLANOS MD Ot I34.0 NONRHEUMATIC MITRAL (VALVE) INSUFFICIENC 11/23/2017 ARVIND CASTELLANOS MD Ot R07.89 OTHER CHEST PAIN 11/29/2017 ARVIND CASTELLANOS MD Ot E11.9 TYPE 2 DIABETES MELLITUS WITHOUT COMPLIC 11/29/2017 ARVIND CASTELLANOS MD Ot E78.5 HYPERLIPIDEMIA, UNSPECIFIED 11/29/2017 ARVIND CASTELLANOS MD Ot I10 ESSENTIAL (PRIMARY) HYPERTENSION 11/29/2017 ARVIND CASTELLANOS MD Ot I25.10 ATHSCL HEART DISEASE OF [place] CORONARY 11/29/2017 ARVIND CASTELLANOS MD Ot I34.0 NONRHEUMATIC MITRAL (VALVE) INSUFFICIENC 11/29/2017 ARVIND CASTELLANOS MD Ot I65.29 OCCLUSION AND STENOSIS OF UNSPECIFIED [place] 11/29/2017 ARVIND CASTELLANOS MD Ot R07.9 CHEST PAIN, UNSPECIFIED 12/05/2017 ARVIND CASTELLANOS MD Ot E11.9 TYPE 2 DIABETES MELLITUS WITHOUT COMPLIC 12/05/2017 ARVIND CASTELLANOS MD Ot E78.5 HYPERLIPIDEMIA, UNSPECIFIED 12/05/2017 ARVIND CASTELLANOS MD Ot I10 ESSENTIAL (PRIMARY) HYPERTENSION 12/05/2017 ARVIND CASTELLANOS MD Ot I25.10 ATHSCL HEART DISEASE OF [place] CORONARY 12/05/2017 ARVIND CASTELLANOS MD Ot I34.0 NONRHEUMATIC MITRAL (VALVE) INSUFFICIENC 12/05/2017 ARVIND CASTELLANOS MD Ot R07.89 OTHER CHEST PAIN 12/12/2017 ARVIND CASTELLANOS MD Ot E11.9 TYPE 2 DIABETES MELLITUS WITHOUT COMPLIC 12/12/2017 ARVIND CASTELLANOS MD Ot E78.5 HYPERLIPIDEMIA, UNSPECIFIED 12/12/2017 ARVIND CASTELLANOS MD Ot I10 ESSENTIAL (PRIMARY) HYPERTENSION 12/12/2017 ARVIND CASTELLANOS MD Ot I25.10 ATHSCL HEART DISEASE OF [place] CORONARY 12/12/2017 ARVIND CASTELLANOS MD Ot I34.0 NONRHEUMATIC MITRAL (VALVE) INSUFFICIENC 12/12/2017 ARVIND CASTELLANOS MD Ot I65.29 OCCLUSION AND STENOSIS OF UNSPECIFIED [place] 12/12/2017 ARVIND CASTELLANOS MD Ot R07.9 CHEST PAIN, UNSPECIFIED 01/03/2018 SAMI GOMEZ MD Ot M05.79 RHEU ARTHRITIS W RHEU FACTOR MULT SITE W 01/03/2018 SAMI GOMEZ MD Ot 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 01/09/2018 SAMI GOMEZ MD R Ot M05.79 RHEU ARTHRITIS W RHEU FACTOR MULT SITE W 01/09/2018 SAMI GOMEZ MD R Ot Z79.899 OTHER GROUP HOME (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 THERAPY 03/29/2018 ARVIND CASTELLANOS MD Ot E78.5 HYPERLIPIDEMIA, UNSPECIFIED 03/29/2018 EMANUEL JARAMILLO, ARVIND Mcdaniel Ot I10 ESSENTIAL (PRIMARY) HYPERTENSION 03/29/2018 EMANUEL JARAMILLO, ARVIND Mcdaniel Ot I25.10 ATHSCL HEART DISEASE OF [place] CORONARY 03/29/2018 EMANUEL JARAMILLO, ARVIND Mcdaniel Ot R07.9 CHEST PAIN, UNSPECIFIED 03/29/2018 DAMIAN MEDRANO, RODERICK Delgadillo Ot E78.5 HYPERLIPIDEMIA, UNSPECIFIED 03/29/2018 DAMIAN MEDRANO, RODERICK K Ot I10 ESSENTIAL (PRIMARY) HYPERTENSION 03/29/2018 DAMIAN MEDRANO, RODERICK K Ot I25.10 ATHSCL HEART DISEASE OF [place] CORONARY 03/29/2018 DAMIAN MEDRANO, RODERICK Delgadillo Ot R07.9 CHEST PAIN, UNSPECIFIED 03/29/2018 DAMIAN MEDRANO, RODERICK Delgadillo Ot E78.0 PURE HYPERCHOLESTEROLEMIA 03/29/2018 DAMIAN MEDRANO, RODERICK Delgadillo Ot E78.2 MIXED HYPERLIPIDEMIA 03/29/2018 RODERICK LILLY Ot I10 ESSENTIAL (PRIMARY) HYPERTENSION 03/29/2018 DAMIAN MEDRANO, RODERICK Leona Ot I25.10 ATHSCL HEART DISEASE OF [place] CORONARY 03/29/2018 DAMIAN MEDRANO, RODERICK Delgadillo Ot R07.89 OTHER CHEST PAIN 03/29/2018 CLAU DELEON APRN Ot R10.11 RIGHT UPPER QUADRANT PAIN 03/29/2018 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 Ot S62.002A UNSP FRACTURE OF NAVICULAR BONE OF LEFT 03/29/2018 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 Ot X58.XXXA EXPOSURE TO OTHER SPECIFIED FACTORS, INI 03/29/2018 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 Ot Y99.8 OTHER EXTERNAL CAUSE STATUS 03/29/2018 CLAU DELEON APRN Ot R93.6 ABNORMAL FINDINGS ON DIAGNOSTIC IMAGING 03/29/2018 CLAU DELEON APRN Ot Z13.820 ENCOUNTER FOR SCREENING FOR OSTEOPOROSIS 03/29/2018 RODERICK LILLY Ot E78.2 MIXED HYPERLIPIDEMIA 03/29/2018 RODERICK LILLY K Ot I10 ESSENTIAL (PRIMARY) HYPERTENSION 03/29/2018 RODERICK LILLY Ot I25.10 ATHSCL HEART DISEASE OF [place] CORONARY 03/29/2018 DAMIAN MEDRANO, RODERICK K Ot I65.23 OCCLUSION AND STENOSIS OF [place]ILATERAL [place] 03/29/2018 RODERICK LILLY Ot E78.2 MIXED HYPERLIPIDEMIA 03/29/2018 DAMIAN MEDRANO RODERICK K Ot I10 ESSENTIAL (PRIMARY) HYPERTENSION 03/29/2018 DAMIAN MEDRANO RODERICK K Ot I25.10 ATHSCL HEART DISEASE OF [place] CORONARY 03/29/2018 DAMIAN MEDRANO, RODERICK K Ot I65.23 OCCLUSION AND STENOSIS OF BILATERAL [place] 03/29/2018 LCAU DELEON KEYANNA Ot Z12.31 ENCNTR SCREEN MAMMOGRAM FOR MALIGNANT NE 03/29/2018 ARVIND CASTELLANOS MD Ot E11.9 TYPE 2 DIABETES MELLITUS WITHOUT COMPLIC 03/29/2018 ARVIND CASTELLANOS MD, Ot E78.5 HYPERLIPIDEMIA, UNSPECIFIED 03/29/2018 ARVIND CASTELLANOS MD Ot I10 ESSENTIAL (PRIMARY) HYPERTENSION 03/29/2018 ARVIND CASTELLANOS MD Ot I25.10 ATHSCL HEART DISEASE OF [place] CORONARY 03/29/2018 ARVIND CASTELLANOS MD Ot I34.0 NONRHEUMATIC MITRAL (VALVE) INSUFFICIENC 03/29/2018 ARVIND CASTELLANOS MD Ot I65.29 OCCLUSION AND STENOSIS OF UNSPECIFIED CA 03/29/2018 ARVIND CASTELLANOS MD Ot R07.9 CHEST PAIN, UNSPECIFIED 03/29/2018 ARVIND CASTELLANOS MD Ot E11.9 TYPE 2 DIABETES MELLITUS WITHOUT COMPLIC 03/29/2018 ARVIND CASTELLANOS MD Ot E78.5 HYPERLIPIDEMIA, UNSPECIFIED 03/29/2018 ARVIND CASTELLANOS MD Ot I10 ESSENTIAL (PRIMARY) HYPERTENSION 03/29/2018 ARVIND CASTELLANOS MD Ot I25.10 ATHSCL HEART DISEASE OF [place] CORONARY 03/29/2018 ARVIND CASTELLANOS MD Ot I34.0 NONRHEUMATIC MITRAL (VALVE) INSUFFICIENC 03/29/2018 ARVIND CASTELLANOS MD Ot R07.89 OTHER CHEST PAIN 03/29/2018 Ot R22.43 LOCALIZED SWELLING, MASS AND LUMP, LOWER 03/29/2018 JASON JARAMILLO, SAMI R Ot M05.79 RHEU ARTHRITIS W RHEU FACTOR MULT SITE W 03/29/2018 JASON JARAMILLO, SAMI R Ot 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 04/12/2018 ENDY LOUIS MD, Ot M06.041 RHEUMATOID ARTHRITIS WITHOUT RHEUMATOID 04/12/2018 ENDY LOUIS MD, Ot 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 04/12/2018 DIMA DOTSON MANAGER MARKET INTELLIGENCE Ot Z12.31 ENCNTR SCREEN MAMMOGRAM FOR MALIGNANT NE 04/12/2018 DIMA DOTSON MANAGER MARKET INTELLIGENCE Ot Z12.31 ENCNTR SCREEN MAMMOGRAM FOR MALIGNANT NE 04/18/2018 CARLOS HORTON MD Ot Z01.818 ENCOUNTER FOR OTHER PREPROCEDURAL EXAMIN 04/19/2018 DIMA DOTSON MANAGER MARKET INTELLIGENCE Ot R92.0 MAMMOGRAPHIC MICROCALCIFICATION FOUND ON 04/19/2018 DIMA DOTSON MANAGER MARKET INTELLIGENCE Ot Z12.31 ENCNTR SCREEN MAMMOGRAM FOR MALIGNANT NE 04/19/2018 DIMA DOTSON MANAGER MARKET INTELLIGENCE Ot R92.0 MAMMOGRAPHIC MICROCALCIFICATION FOUND ON 04/19/2018 DIMA DOTSON MANAGER MARKET INTELLIGENCE Ot Z12.31 ENCNTR SCREEN MAMMOGRAM FOR MALIGNANT NE 04/25/2018 CARLOS HORTON MD Ot E11.9 TYPE 2 DIABETES MELLITUS WITHOUT COMPLIC 04/25/2018 CARLOS HORTON MD, Ot F17.210 NICOTINE DEPENDENCE, CIGARETTES, UNCOMPL 04/25/2018 CARLOS HORTON MD, Ot F32.9 MAJOR DEPRESSIVE DISORDER, SINGLE EPISOD 04/25/2018 CARLOS HORTON MD, Ot F41.9 ANXIETY DISORDER, UNSPECIFIED 04/25/2018 CARLOS HORTON MD, Ot G56.22 LESION OF ULNAR NERVE, LEFT UPPER LIMB 04/25/2018 CARLOS HORTON MD, Ot I10 ESSENTIAL (PRIMARY) HYPERTENSION 04/25/2018 CARLOS HORTON MD, Ot I25.10 ATHSCL HEART DISEASE OF [place] CORONARY 04/25/2018 CARLOS HORTON MD, Ot J44.9 CHRONIC OBSTRUCTIVE PULMONARY DISEASE, U 04/25/2018 CARLOS HORTON MD, Ot K21.9 GASTRO-ESOPHAGEAL REFLUX DISEASE WITHOUT 04/25/2018 CARLOS HORTON MD, Ot M06.9 RHEUMATOID ARTHRITIS, UNSPECIFIED 04/25/2018 CARLOS HORTON MD, Ot Z79.82 WATER AND FIRE TECHNICIAN (CURRENT) USE OF ASPIRIN 04/25/2018 CARLOS HORTON MD, Ot Z79.84 GROUP HOME (CURRENT) USE OF ORAL HYPOGLYC 04/25/2018 CARLOS HORTON MD, Ot 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 04/25/2018 CARLOS HORTON MD, Ot Z86.73 PRSNL HX OF TIA (TIA), AND CEREB INFRC W 04/25/2018 CARLOS HORTON MD, Ot Z88.2 ALLERGY STATUS TO SULFONAMIDES STATUS 04/25/2018 CARLOS HORTON MD, Ot Z95.1 PRESENCE OF AORTOCORONARY BYPASS GRAFT 04/25/2018 CARLOS HORTON MD, Ot Z99.81 DEPENDENCE ON SUPPLEMENTAL OXYGEN 04/26/2018 CARLOS HORTON MD, Ot E11.9 TYPE 2 DIABETES MELLITUS WITHOUT COMPLIC 04/26/2018 CARLOS HORTON MD, Ot F17.210 NICOTINE DEPENDENCE, CIGARETTES, UNCOMPL 04/26/2018 CARLOS HORTON MD, Ot F32.9 MAJOR DEPRESSIVE DISORDER, SINGLE EPISOD 04/26/2018 CARLOS HORTON MD, Ot F41.9 ANXIETY DISORDER, UNSPECIFIED 04/26/2018 CARLOS HORTON MD, Ot G56.22 LESION OF ULNAR NERVE, LEFT UPPER LIMB 04/26/2018 CARLOS HORTON MD, Ot I10 ESSENTIAL (PRIMARY) HYPERTENSION 04/26/2018 CARLOS HORTON MD, Ot I25.10 ATHSCL HEART DISEASE OF [place] CORONARY 04/26/2018 CARLOS HORTON MD, Ot J44.9 CHRONIC OBSTRUCTIVE PULMONARY DISEASE, U 04/26/2018 CARLOS HORTON MD, Ot K21.9 GASTRO-ESOPHAGEAL REFLUX DISEASE WITHOUT 04/26/2018 CARLOS HORTON MD, Ot M06.9 RHEUMATOID ARTHRITIS, UNSPECIFIED 04/26/2018 CARLOS HORTON MD, Ot Z79.82 GROUP HOME (CURRENT) USE OF ASPIRIN 04/26/2018 CARLOS HORTON MD, Ot Z79.84 GROUP HOME (CURRENT) USE OF ORAL HYPOGLYC 04/26/2018 CARLOS HORTON MD, Ot 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 04/26/2018 CARLOS HORTON MD, Ot Z86.73 PRSNL HX OF TIA (TIA), AND CEREB INFRC W 04/26/2018 CARLOS HORTON MD Ot Z88.2 ALLERGY STATUS TO SULFONAMIDES STATUS 04/26/2018 CARLOS HORTON MD Ot Z95.1 PRESENCE OF AORTOCORONARY BYPASS GRAFT 04/26/2018 CARLOS HORTON MD Ot Z99.81 DEPENDENCE ON SUPPLEMENTAL OXYGEN 04/27/2018 DIMA DOTSON APRN Ot R92.0 MAMMOGRAPHIC MICROCALCIFICATION FOUND ON 04/27/2018 DIMA DOTSON APRN Ot Z12.31 ENCNTR SCREEN MAMMOGRAM FOR MALIGNANT NE 05/04/2018 CARLOS HORTON MD, Ot Z01.818 ENCOUNTER FOR OTHER PREPROCEDURAL EXAMIN 06/25/2018 ARVIND CASTELLANOS MD Ot E78.5 HYPERLIPIDEMIA, UNSPECIFIED 06/25/2018 ARVIND CASTELLANOS MD Ot I10 ESSENTIAL (PRIMARY) HYPERTENSION 06/25/2018 ARVIND CASTELLANOS MD Ot I25.10 ATHSCL HEART DISEASE OF [place] CORONARY 06/25/2018 ARVIND CASTELLANOS MD Ot R07.9 CHEST PAIN, UNSPECIFIED 06/25/2018 RODERICK LILLY Ot E78.5 HYPERLIPIDEMIA, UNSPECIFIED 06/25/2018 RODERICK LILLY Ot I10 ESSENTIAL (PRIMARY) HYPERTENSION 06/25/2018 RODERICK LILLY Ot I25.10 ATHSCL HEART DISEASE OF [place] CORONARY 06/25/2018 RODERICK LILLY Ot R07.9 CHEST PAIN, UNSPECIFIED 06/25/2018 RODERICK LILLY Ot E78.0 PURE HYPERCHOLESTEROLEMIA 06/25/2018 RODERICK LILLY Ot E78.2 MIXED HYPERLIPIDEMIA 06/25/2018 RODERICK LILLY Ot I10 ESSENTIAL (PRIMARY) HYPERTENSION 06/25/2018 RODERICK LILLY Ot I25.10 ATHSCL HEART DISEASE OF [place] CORONARY 06/25/2018 RODERICK LILLY Ot R07.89 OTHER CHEST PAIN 06/25/2018 CLAU DELEON APRN Ot R10.11 RIGHT UPPER QUADRANT PAIN 06/25/2018 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 Ot S62.002A UNSP FRACTURE OF NAVICULAR BONE OF LEFT 06/25/2018 PATTERSON, SHERITAJASMINE ALVARENGA Ot X58.XXXA EXPOSURE TO OTHER SPECIFIED FACTORS, INI 06/25/2018 PATTERSON, SHERITAJASMINE ALVARENGA Ot Y99.8 OTHER EXTERNAL CAUSE STATUS 06/25/2018 CLAU DELEON APRN Ot R93.6 ABNORMAL FINDINGS ON DIAGNOSTIC IMAGING 06/25/2018 CLAU DELEON APRN Ot Z13.820 ENCOUNTER FOR SCREENING FOR OSTEOPOROSIS 06/25/2018 RODERICK LILLY Ot E78.2 MIXED HYPERLIPIDEMIA 06/25/2018 RODERICK LILLY Ot I10 ESSENTIAL (PRIMARY) HYPERTENSION 06/25/2018 RODERICK LILLY Ot I25.10 ATHSCL HEART DISEASE OF [place] CORONARY 06/25/2018 RODERICK LILLY Ot I65.23 OCCLUSION AND STENOSIS OF BILATERAL [place] 06/25/2018 RODERICK LILLY Ot E78.2 MIXED HYPERLIPIDEMIA 06/25/2018 RODERICK LILLY Ot I10 ESSENTIAL (PRIMARY) HYPERTENSION 06/25/2018 RODERICK LILLY Ot I25.10 ATHSCL HEART DISEASE OF [place] CORONARY 06/25/2018 RODERICK LILLY Ot I65.23 OCCLUSION AND STENOSIS OF BILATERAL [place] 06/25/2018 CLAU DELEON APRN Ot Z12.31 ENCNTR SCREEN MAMMOGRAM FOR MALIGNANT NE 06/25/2018 ARVIND CASTELLANOS MD Ot E11.9 TYPE 2 DIABETES MELLITUS WITHOUT COMPLIC 06/25/2018 ARVIND CASTELLANOS MD Ot E78.5 HYPERLIPIDEMIA, UNSPECIFIED 06/25/2018 ARVIND CASTELLANOS MD Ot I10 ESSENTIAL (PRIMARY) HYPERTENSION 06/25/2018 ARVIND CASTELLANOS MD Ot I25.10 ATHSCL HEART DISEASE OF [place] CORONARY 06/25/2018 ARVIND CASTELLANOS MD Ot I34.0 NONRHEUMATIC MITRAL (VALVE) INSUFFICIENC 06/25/2018 ARVIND CASTELLANOS MD Ot I65.29 OCCLUSION AND STENOSIS OF UNSPECIFIED CA 06/25/2018 ARVIND CASETLLANOS MD Ot R07.9 CHEST PAIN, UNSPECIFIED 06/25/2018 ARVIND CASTELLANOS MD Ot E11.9 TYPE 2 DIABETES MELLITUS WITHOUT COMPLIC 06/25/2018 ARVIND CASTELLANOS MD, Ot E78.5 HYPERLIPIDEMIA, UNSPECIFIED 06/25/2018 ARVIND CASTELLANOS MD, Ot I10 ESSENTIAL (PRIMARY) HYPERTENSION 06/25/2018 ARVIND CASTELLANOS MD, Ot I25.10 ATHSCL HEART DISEASE OF [place] CORONARY 06/25/2018 ARVIND CASTELLANOS MD Ot I34.0 NONRHEUMATIC MITRAL (VALVE) INSUFFICIENC 06/25/2018 ARVIND CASTELLANOS MD, Ot R07.89 OTHER CHEST PAIN 06/25/2018 Ot R22.43 LOCALIZED SWELLING, MASS AND LUMP, LOWER 06/25/2018 SAMI GOMEZ MD, Ot M05.79 RHEU ARTHRITIS W RHEU FACTOR MULT SITE W 06/25/2018 SAMI GOMEZ MD, Ot Z79.899 OTHER GROUP HOME (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 THERAPY 06/25/2018 ENDY LOUIS MD, Ot M06.041 RHEUMATOID ARTHRITIS WITHOUT RHEUMATOID 06/25/2018 ENDY LOUIS MD, Ot 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 06/25/2018 DIMA DOTSON APRN Ot R92.0 MAMMOGRAPHIC MICROCALCIFICATION FOUND ON 06/25/2018 DIMA DOTSON MANAGER MARKET INTELLIGENCE Ot Z12.31 ENCNTR SCREEN MAMMOGRAM FOR MALIGNANT NE 06/27/2018 ENDY LOUIS MD, Ot M06.041 RHEUMATOID ARTHRITIS WITHOUT RHEUMATOID 06/27/2018 ENDY LOUIS MD, Ot M06.042 RHEUMATOID ARTHRITIS WITHOUT RHEUMATOID 07/10/2018 ENDY LOUIS MD, Ot M06.041 RHEUMATOID ARTHRITIS WITHOUT RHEUMATOID 07/10/2018 ENDY LOUIS MD, Ot M06.042 RHEUMATOID ARTHRITIS WITHOUT RHEUMATOID Procedures There is no data. Results Test Result Range Methicillin resistant Staphylococcus aureus (MRSA) screening culture - 03/03/16 15:40 Methicillin resistant Staphylococcus aureus (MRSA) screening culture NEG NRG Capillary blood glucose measurement by glucometer (mass/volume) - 03/23/16 06:53 Capillary blood glucose measurement by glucometer (mass/volume) 165 mg/dL 70-110 Methicillin resistant Staphylococcus aureus (MRSA) screening culture - 05/19/16 12:00 Methicillin resistant Staphylococcus aureus (MRSA) screening culture NEG NRG Capillary blood glucose measurement by glucometer (mass/volume) - 05/25/16 08:42 Capillary blood glucose measurement by glucometer (mass/volume) 179 mg/dL 70-110 CMP - 02/20/17 10:44 GLUCOSE 126 mg/dL 65-99 UREA NITROGEN (BUN) 12 mg/dL 7-25 CREATININE 0.71 mg/dL 0.50-1.05 eGFR NON-AFR. BOLIVIAN 96 mL/min/1.73m2 > OR=60 eGFR 111 mL/min/1.73m2 > OR=60 BUN/CREATININE RATIO NOT APPLICABLE (calc) 6-22 SODIUM 138 mmol/L 135-146 POTASSIUM 4.5 mmol/L 3.5-5.3 CHLORIDE 101 mmol/L 98-110 CARBON DIOXIDE 24 mmol/L 20-31 CALCIUM 9.8 mg/dL 8.6-10.4 PROTEIN, TOTAL 6.8 g/dL 6.1-8.1 ALBUMIN 4.3 g/dL 3.6-5.1 GLOBULIN 2.5 g/dL (calc) 1.9-3.7 ALBUMIN/GLOBULIN RATIO 1.7 (calc) 1.0-2.5 BILIRUBIN, TOTAL 0.4 mg/dL 0.2-1.2 ALKALINE PHOSPHATASE 54 U/L 33-130 AST 14 U/L 10-35 ALT 14 U/L 6-29 CULTURE, GENITAL - 02/24/17 10:22 CULTURE, GENITAL SEE NOTE [facility] Complete blood count (CBC) with automated white [...] Automated erythrocyte mean corpuscular hemoglobin concentration measurement (mass/volume) 34 g/dL 32-36 Automated erythrocyte distribution width ratio 14.9 % 10.0- 14.5 Automated blood platelet count (count/volume) 269 10*3/uL [...] Blood monocytes automated count (number/volume) 0.6 10*3 0.0- 1.0 Automated eosinophil count 0.3 10*3/uL 0.0-0.3 Automated [...] measurement in platelet poor plasma (mass/volume) - 03/17/17 20:05 Fibrin D-dimer FEU measurement in platelet poor plasma (mass/volume) 0.31 ug/mL 0.00-0.49 Blood lactic acid measurement (moles/volume) - 03/17/17 20:05 Blood lactic acid measurement (moles/volume) 2.61 mmol/L 0.50- 2.00 Serum or plasma C reactive protein measurement (mass/volume) - 03/17/17 20:05 Serum or plasma C reactive protein measurement (mass/volume) 0.44 mg/dL 0.00-0.50 Comprehensive metabolic panel - 03/17/17 20:05 [...] Serum or plasma aspartate aminotransferase measurement (enzymatic activity/volume) 18 U/L 5-34 Serum or plasma alanine aminotransferase measurement (enzymatic activity/volume) 18 U/L 0-55 Serum or plasma protein measurement (mass/volume) 6.5 g/dL 6.4-8.2 Serum or plasma albumin measurement (mass/volume) 3.8 g/dL 3.2-4.5 Magnesium - 03/17/17 20:05 Magnesium 1.6 mg/dL 1.8-2.4 Serum or plasma troponin i.cardiac measurement (mass/volume) - 03/17/17 20:05 Serum or plasma troponin i.cardiac measurement (mass/volume) < ng/mL <0.30 Myoglobin, serum - 03/17/17 20:05 Myoglobin, serum 22.8 ng/mL 10.0-92.0 Bacterial blood culture - 03/17/17 20:05 Bacterial blood culture NG NRG Bacterial blood culture - 03/17/17 20:35 Bacterial blood culture NG NRG Serum or plasma lactate measurement (moles/volume) - 03/17/17 22:52 Serum or plasma lactate measurement (moles/volume) 0.99 mmol/L 0.50-2.00 Complete blood count (CBC) with automated white blood cell (WBC) differential - 03/18/17 03:02 Blood leukocytes automated count (number/volume) 9.0 10*3/uL 4.3-11.0 Blood erythrocytes automated count (number/volume) 4.74 10*6/uL 4.35-5.85 Venous blood hemoglobin measurement (mass/volume) 13.8 g/dL 11.5-16.0 Blood hematocrit (volume fraction) 42 % 35-52 Automated erythrocyte mean corpuscular volume 88 [foz_us] 80-99 Automated erythrocyte mean corpuscular hemoglobin (mass per erythrocyte) 29 pg 25-34 Automated erythrocyte mean corpuscular hemoglobin concentration measurement (mass/volume) 33 g/dL 32-36 Automated erythrocyte distribution width ratio 15.0 % 10.0- 14.5 Automated blood platelet count (count/volume) 231 10*3/uL 130-400 Automated blood platelet mean volume measurement 10.8 [foz_us] 7.4-10.4 Automated blood neutrophils/100 leukocytes 69 % 42-75 Automated blood lymphocytes/100 leukocytes 24 % 12-44 Blood monocytes/100 leukocytes 5 % 0-12 Automated blood eosinophils/100 leukocytes 2 % 0-10 Automated blood basophils/100 leukocytes 0 % 0-10 Blood neutrophils automated count (number/volume) 6.2 10*3 1.8-7.8 Blood lymphocytes automated count (number/volume) 2.2 10*3 1.0-4.0 Blood monocytes automated count (number/volume) 0.5 10*3 0.0- 1.0 Automated eosinophil count 0.2 10*3/uL 0.0-0.3 Automated blood basophil count (count/volume) 0.0 10*3/uL 0.0-0.1 Lipid 1996 panel - 03/18/17 03:02 Serum or plasma triglyceride measurement (mass/volume) 87 mg/dL <150 Serum or plasma cholesterol measurement (mass/volume) 106 mg/dL < 200 Serum or plasma cholesterol in HDL measurement (mass/volume) 30 mg/dL 40-60 Cholesterol in LDL [mass/volume] in serum or plasma by direct assay 62 mg/dL 1-129 Serum or plasma cholesterol in VLDL measurement (mass/volume) 17 mg/dL 5-40 Comprehensive metabolic panel - 03/18/17 03:02 Serum or plasma sodium measurement (moles/volume) 144 mmol/L 135-145 Serum or plasma potassium measurement (moles/volume) 3.8 mmol/L 3.6-5.0 Serum or plasma chloride measurement (moles/volume) 108 mmol/L 98-107 Carbon dioxide 25 mmol/L 21-32 Serum or plasma anion gap determination (moles/volume) 11 mmol/L 5-14 Serum or plasma urea nitrogen measurement (mass/volume) 9 mg/dL 7-18 Serum or plasma creatinine measurement (mass/volume) 0.71 mg/dL 0.60-1.30 Serum or plasma urea nitrogen/creatinine mass ratio 13 NRG Serum or plasma creatinine measurement with calculation of estimated glomerular filtration rate > NRG Serum or plasma glucose measurement (mass/volume) 117 mg/dL 70-105 Serum or plasma calcium measurement (mass/volume) 8.6 mg/dL 8.5-10.1 Serum or plasma total bilirubin measurement (mass/volume) 0.2 mg/dL 0.1-1.0 Serum or plasma alkaline phosphatase measurement (enzymatic activity/volume) 47 U/L 40-136 Serum or plasma aspartate aminotransferase measurement (enzymatic activity/volume) 12 U/L 5-34 Serum or plasma alanine aminotransferase measurement (enzymatic activity/volume) 15 U/L 0-55 Serum or plasma protein measurement (mass/volume) 5.4 g/dL 6.4-8.2 Serum or plasma albumin measurement (mass/volume) 3.3 g/dL 3.2-4.5 Serum or plasma troponin i.cardiac measurement (mass/volume) - 03/18/17 03:02 Serum or plasma troponin i.cardiac measurement (mass/volume) < ng/mL <0.30 Serum or plasma lithium measurement (moles/volume) - 03/18/17 03:02 BNP level 29.3 pg/mL <100.0 Serum or plasma troponin i.cardiac measurement (mass/volume) - 03/18/17 08:08 Serum or plasma troponin i.cardiac measurement (mass/volume) < ng/mL <0.30 Capillary blood glucose measurement by glucometer (mass/volume) - 03/18/17 11:09 Capillary blood glucose measurement by glucometer (mass/volume) 179 mg/dL 70-110 MICROALBUMIN/CREATININE RATIO, URINE - 09/01/17 11:48 CREATININE, RANDOM URINE 75 mg/dL 20-320 MICROALBUMIN 0.3 mg/dL See Note: MICROALBUMIN/CREATININE RATIO, RANDOM URINE 4 mcg/mg creat <30 CBC - 10/26/17 12:30 WHITE BLOOD CELL COUNT 13.3 Thousand/uL 3.8-10.8 RED BLOOD CELL COUNT 5.04 Million/uL 3.80-5.10 HEMOGLOBIN 14.7 g/dL 11.7-15.5 HEMATOCRIT 43.3 % 35.0-45.0 MCV 85.9 fL 80.0-100.0 MCH 29.2 pg 27.0-33.0 MCHC 33.9 g/dL 32.0-36.0 RDW 13.9 % 11.0-15.0 PLATELET COUNT 278 Thousand/uL 140-400 MPV 10.1 fL 7.5-12.5 ABSOLUTE NEUTROPHILS 67505 cells/uL 2589-3299 ABSOLUTE LYMPHOCYTES 2234 cells/uL 850-3900 ABSOLUTE MONOCYTES 412 cells/uL 200-950 ABSOLUTE EOSINOPHILS 27 cells/uL 15-500 ABSOLUTE BASOPHILS 67 cells/uL 0-200 NEUTROPHILS 79.4 % NRG LYMPHOCYTES 16.8 % NRG MONOCYTES 3.1 % NRG EOSINOPHILS 0.2 % NRG BASOPHILS 0.5 % NRG THYROID ANALYZER - 10/26/17 12:30 TSH 0.86 mIU/L 0.40-4.50 CBC - 11/03/17 08:35 WHITE BLOOD CELL COUNT 12.4 Thousand/uL 3.8-10.8 RED BLOOD CELL COUNT 4.98 Million/uL 3.80-5.10 HEMOGLOBIN 14.4 g/dL 11.7-15.5 HEMATOCRIT 43.3 % 35.0-45.0 MCV 86.9 fL 80.0-100.0 MCH 28.9 pg 27.0-33.0 MCHC 33.3 g/dL 32.0-36.0 RDW 14.1 % 11.0-15.0 PLATELET COUNT 297 Thousand/uL 140-400 MPV 10.5 fL 7.5-12.5 ABSOLUTE NEUTROPHILS 7911 cells/uL 8291-6105 ABSOLUTE LYMPHOCYTES 3497 cells/uL 850-3900 ABSOLUTE MONOCYTES 645 cells/uL 200-950 ABSOLUTE EOSINOPHILS 260 cells/uL 15-500 ABSOLUTE BASOPHILS 87 cells/uL 0-200 NEUTROPHILS 63.8 % NRG LYMPHOCYTES 28.2 % NRG MONOCYTES 5.2 % NRG EOSINOPHILS 2.1 % NRG BASOPHILS 0.7 % NRG PDM - 09 PANEL (PROFILE 1) - 11/24/17 12:28 Prescribed Drug 1 Hydrocodone NRG Creatinine 65.2 mg/dL > or=20.0 pH 6.67 4.5 - 9.0 Oxidant NEGATIVE mcg/mL <200 Amphetamines NEGATIVE ng/mL <500 medMATCH Amphetamines CONSISTENT NRG Benzodiazepines NEGATIVE ng/mL <100 medMATCH Benzodiazepines CONSISTENT NRG Marijuana Metabolite NEGATIVE ng/mL <20 medMATCH Marijuana Metab CONSISTENT NRG Cocaine Metabolite NEGATIVE ng/mL <150 medMATCH Cocaine Metab CONSISTENT NRG Opiates POSITIVE ng/mL <100 Oxycodone NEGATIVE ng/mL <100 medMATCH Oxycodone CONSISTENT NRG COMMENT NRG Codeine NEGATIVE ng/mL <50 medMATCH Codeine CONSISTENT NRG Hydrocodone NEGATIVE ng/mL <50 medMATCH Hydrocodone CONSISTENT NRG Hydromorphone NEGATIVE ng/mL <50 medMATCH Hydromorphone CONSISTENT NRG Morphine NEGATIVE ng/mL <50 medMATCH Morphine CONSISTENT NRG Norhydrocodone 87 ng/mL <50 medMATCH Norhydrocodone CONSISTENT NRG Barbiturates NEGATIVE ng/mL <300 medMATCH Barbiturates CONSISTENT NRG Methadone Metabolite NEGATIVE ng/mL <100 medMATCH Methadone Metab CONSISTENT NRG Phencyclidine NEGATIVE ng/mL <25 medMATCH Phencyclidine CONSISTENT NRG Complete blood count (CBC) with automated white blood cell (WBC) differential - 12/29/17 13:00 Blood leukocytes automated count (number/volume) 11.2 10*3/uL 4.3-11.0 Blood erythrocytes automated count (number/volume) 5.08 10*6/uL 4.35-5.85 Venous blood hemoglobin measurement (mass/volume) 14.8 g/dL 11.5-16.0 Blood hematocrit (volume fraction) 43 % 35-52 Automated erythrocyte mean corpuscular volume 84 [foz_us] 80-99 Automated erythrocyte mean corpuscular hemoglobin (mass per erythrocyte) 29 pg 25-34 Automated erythrocyte mean corpuscular hemoglobin concentration measurement (mass/volume) 35 g/dL 32-36 Automated erythrocyte distribution width ratio 14.9 % 10.0- 14.5 Automated blood platelet count (count/volume) 269 10*3/uL 130-400 Automated blood platelet mean volume measurement 10.0 [foz_us] 7.4-10.4 Automated blood neutrophils/100 leukocytes 60 % 42-75 Automated blood lymphocytes/100 leukocytes 29 % 12-44 Blood monocytes/100 leukocytes 7 % 0-12 Automated blood eosinophils/100 leukocytes 3 % 0-10 Automated blood basophils/100 leukocytes 1 % 0-10 Blood neutrophils automated count (number/volume) 6.7 10*3 1.8-7.8 Blood lymphocytes automated count (number/volume) 3.3 10*3 1.0-4.0 Blood monocytes automated count (number/volume) 0.8 10*3 0.0- 1.0 Automated eosinophil count 0.3 10*3/uL 0.0-0.3 Automated blood basophil count (count/volume) 0.1 10*3/uL 0.0-0.1 Comprehensive metabolic panel - 12/29/17 13:00 Serum or plasma sodium measurement (moles/volume) 132 mmol/L 135-145 Serum or plasma potassium measurement (moles/volume) 4.3 mmol/L 3.6-5.0 Serum or plasma chloride measurement (moles/volume) 99 mmol/L 98-107 Carbon dioxide 22 mmol/L 21-32 Serum or plasma anion gap determination (moles/volume) 11 mmol/L 5-14 Serum or plasma urea nitrogen measurement (mass/volume) 6 mg/dL 7-18 Serum or plasma creatinine measurement (mass/volume) 0.68 mg/dL 0.60-1.30 Serum or plasma urea nitrogen/creatinine mass ratio 9 NRG Serum or plasma creatinine measurement with calculation of estimated glomerular filtration rate > NRG Serum or plasma glucose measurement (mass/volume) 95 mg/dL 70-105 Serum or plasma calcium measurement (mass/volume) 9.6 mg/dL 8.5-10.1 Serum or plasma total bilirubin measurement (mass/volume) 0.5 mg/dL 0.1-1.0 Serum or plasma alkaline phosphatase measurement (enzymatic activity/volume) 54 U/L 40-136 Serum or plasma aspartate aminotransferase measurement (enzymatic activity/volume) 13 U/L 5-34 Serum or plasma alanine aminotransferase measurement (enzymatic activity/volume) 12 U/L 0-55 Serum or plasma protein measurement (mass/volume) 7.6 g/dL 6.4-8.2 Serum or plasma albumin measurement (mass/volume) 4.1 g/dL 3.2-4.5 CALCIUM CORRECTED 9.5 mg/dL 8.5-10.1 Serum or plasma C reactive protein measurement (mass/volume) - 12/29/17 13:00 Serum or plasma C reactive protein measurement (mass/volume) 0.63 mg/dL 0.00-0.50 Erythrocyte sedimentation rate by westergren method - 12/29/17 13:00 Erythrocyte sedimentation rate by westergren method 5 mm 0- 30 IMMUNOFIXATION W/INTERP, SERUM - 12/29/17 13:00 Serum or plasma nordiazepam detection Complete Complete Acute hepatitis panel - 12/29/17 13:00 Confirmatory quantitative serum or plasma hepatitis B virus surface antigen measurement Non-Reactive Non-Reactive Hepatitis A virus IgM antibody assay Non-Reactive Non-Reactive Hepatitis B virus core IgM antibody assay Non-Reactive Non- Reactive Serum hepatitis C virus antibody detection Non-Reactive Non- Reactive Serum protein electrophoresis - 12/29/17 13:00 Serum or plasma protein measurement (mass/volume) 6.5 % 6.5- 8.2 Pathology consultation and report SEE PATH REPORT NRG Serum cyclic citrullinated peptide antibody assay (units/volume) - 12/29/17 13:00 Serum cyclic citrullinated peptide antibody assay (units/volume) < % 0.0-19.9 QUANTIFERON-TB GOLD - 12/29/17 13:00 [id number] 0.05 [iU]/mL 0.00-0.34 QuantiFERON-TB test Negative Negative Mitogen stimulated gamma interferon [units/volume] corrected for background in blood 0.03 [iU]/mL 0.00-7.99 Mitogen stimulated gamma interferon [units/volume] in blood 6.73 [iU]/mL 0.50-10.00 HEPATITIS PROFILE - 01/08/18 15:33 HEPATITIS A IGM NON-REACTIVE NON-REACTIVE HEPATITIS B SURFACE ANTIGEN NON-REACTIVE NON-REACTIVE HEPATITIS B CORE ANTIBODY (IGM) NON-REACTIVE NON-REACTIVE HEPATITIS C ANTIBODY NON-REACTIVE NON-REACTIVE SIGNAL TO CUT-OFF 0.03 <1.00 RA (RHEUMATOID) FACTOR - 01/12/18 13:10 RHEUMATOID FACTOR <14 IU/mL <14 CCP ANTIBODY - 01/12/18 13:10 CYCLIC CITRULLINATED PEPTIDE (CCP) AB (IGG) <16 UNITS NRG DOMINGO ANALYZER - 01/12/18 13:10 DOMINGO SCREEN, IFA POSITIVE NEGATIVE ANTINUCLEAR ANTIBODIES TITER AND PATTERN - 10/26/18 13:10 DOMINGO PATTERN HOMOGENEOUS NRG DOMINGO TITER 1:160 titer NRG DIFFERENTIAL, MANUAL - 01/12/18 13:10 ABSOLUTE NEUTROPHILS 29116 cells/uL 4971-8104 ABSOLUTE MONOCYTES 270 cells/uL 200-950 ABSOLUTE EOSINOPHILS 0 cells/uL 15-500 ABSOLUTE BASOPHILS 135 cells/uL 0-200 NEUTROPHILS 77.0 % NRG LYMPHOCYTES 19.0 % NRG MONOCYTES 2.0 % NRG EOSINOPHILS 0 % NRG BASOPHILS 1.0 % NRG ABSOLUTE BAND NEUTROPHILS 135 cells/uL 0-750 ABSOLUTE LYMPHOCYTES 2565 cells/uL 850-3900 BAND NEUTROPHILS 1.0 % NRG PLATELET ESTIMATION ADEQUATE ADEQUATE PDM - 09 PANEL (PROFILE 1) - 03/02/18 16:03 Prescribed Drug 1 Lyrica(TM) NRG Creatinine 60.3 mg/dL > or=20.0 pH 6.79 4.5 - 9.0 Oxidant NEGATIVE mcg/mL <200 Amphetamines NEGATIVE ng/mL <500 medMATCH Amphetamines CONSISTENT NRG Benzodiazepines NEGATIVE ng/mL <100 medMATCH Benzodiazepines CONSISTENT NRG Marijuana Metabolite NEGATIVE ng/mL <20 medMATCH Marijuana Metab CONSISTENT NRG Cocaine Metabolite NEGATIVE ng/mL <150 medMATCH Cocaine Metab CONSISTENT NRG Opiates POSITIVE ng/mL <100 Oxycodone NEGATIVE ng/mL <100 medMATCH Oxycodone CONSISTENT NRG COMMENT NRG Codeine NEGATIVE ng/mL <50 medMATCH Codeine CONSISTENT NRG Hydrocodone NEGATIVE ng/mL <50 medMATCH Hydrocodone CONSISTENT NRG Hydromorphone NEGATIVE ng/mL <50 medMATCH Hydromorphone CONSISTENT NRG Morphine NEGATIVE ng/mL <50 medMATCH Morphine CONSISTENT NRG Norhydrocodone 157 ng/mL <50 medMATCH Norhydrocodone CONSISTENT NRG Prescribed Drug 2 Hydrocodone NRG Barbiturates NEGATIVE ng/mL <300 medMATCH Barbiturates CONSISTENT NRG Methadone Metabolite NEGATIVE ng/mL <100 medMATCH Methadone Metab CONSISTENT NRG Phencyclidine NEGATIVE ng/mL <25 medMATCH Phencyclidine CONSISTENT NRG Complete blood count (CBC) with automated white blood cell (WBC) differential - 03/29/18 11:13 Blood leukocytes automated count (number/volume) 7.1 10*3/uL 4.3-11.0 Blood erythrocytes automated count (number/volume) 4.82 10*6/uL 4.35-5.85 Venous blood hemoglobin measurement (mass/volume) 14.2 g/dL 11.5-16.0 Blood hematocrit (volume fraction) 42 % 35-52 Automated erythrocyte mean corpuscular volume 86 [foz_us] 80-99 Automated erythrocyte mean corpuscular hemoglobin (mass per erythrocyte) 30 pg 25-34 Automated erythrocyte mean corpuscular hemoglobin concentration measurement (mass/volume) 34 g/dL 32-36 Automated erythrocyte distribution width ratio 15.7 % 10.0- 14.5 Automated blood platelet count (count/volume) 240 10*3/uL 130-400 Automated blood platelet mean volume measurement 10.1 [foz_us] 7.4-10.4 Automated blood neutrophils/100 leukocytes 52 % 42-75 Automated blood lymphocytes/100 leukocytes 36 % 12-44 Blood monocytes/100 leukocytes 8 % 0-12 Automated blood eosinophils/100 leukocytes 4 % 0-10 Automated blood basophils/100 leukocytes 1 % 0-10 Blood neutrophils automated count (number/volume) 3.7 10*3 1.8-7.8 Blood lymphocytes automated count (number/volume) 2.5 10*3 1.0-4.0 Blood monocytes automated count (number/volume) 0.6 10*3 0.0- 1.0 Automated eosinophil count 0.3 10*3/uL 0.0-0.3 Automated blood basophil count (count/volume) 0.1 10*3/uL 0.0-0.1 Liver function panel (serum or plasma alk phos, alb, total and direct bili, total protein, ALT, AST) - 03/29/18 11:13 Serum or plasma total bilirubin measurement (mass/volume) 0.4 mg/dL 0.1-1.0 Serum or plasma alkaline phosphatase measurement (enzymatic activity/volume) 49 U/L 40-136 Serum or plasma aspartate aminotransferase measurement (enzymatic activity/volume) 11 U/L 5-34 Serum or plasma alanine aminotransferase measurement (enzymatic activity/volume) 15 U/L 0-55 Serum or plasma protein measurement (mass/volume) 6.5 g/dL 6.4-8.2 Serum or plasma albumin measurement (mass/volume) 4.1 g/dL 3.2-4.5 Bilirubin direct 0.2 mg/dL 0.0-0.3 Serum or plasma indirect bilirubin measurement (mass/volume) 0.2 mg/dL NRG Serum or plasma creatinine measurement (mass/volume) - 03/29/18 11:13 Serum or plasma creatinine measurement (mass/volume) 0.69 mg/dL 0.60-1.30 Serum or plasma C reactive protein measurement (mass/volume) - 03/29/18 11:13 Serum or plasma C reactive protein measurement (mass/volume) 0.44 mg/dL 0.00-0.50 Erythrocyte sedimentation rate by westergren method - 03/29/18 11:13 Erythrocyte sedimentation rate by westergren method 5 mm 0- 30 Methicillin resistant Staphylococcus aureus (MRSA) screening culture - 04/18/18 13:10 Methicillin resistant Staphylococcus aureus (MRSA) screening culture NEG NRG Capillary blood glucose measurement by glucometer (mass/volume) - 04/25/18 09:41 Capillary blood glucose measurement by glucometer (mass/volume) 113 mg/dL 70-110 Capillary blood glucose measurement by glucometer (mass/volume) - 04/25/18 13:34 Capillary blood glucose measurement by glucometer (mass/volume) 114 mg/dL 70-110 Serum or plasma C reactive protein measurement (mass/volume) - 06/25/18 12:23 Serum or plasma C reactive protein measurement (mass/volume) 1.09 mg/dL 0.00-0.50 Erythrocyte sedimentation rate by westergren method - 06/25/18 12:23 Erythrocyte sedimentation rate by westergren method 2 mm 0- 30 Complete urinalysis with reflex to culture - 08/23/18 11:00 Urine color determination YELLOW NRG Urine clarity determination CLEAR NRG Urine pH measurement by test strip 8.0 5-9 Specific gravity of urine by test strip 1.010 1.016-1.022 Urine protein assay by test strip, semi-quantitative NEGATIVE NEGATIVE Urine glucose detection by automated test strip NEGATIVE NEGATIVE Erythrocytes detection in urine sediment by light microscopy NEGATIVE NEGATIVE Urine ketones detection by automated test strip NEGATIVE NEGATIVE Urine nitrite detection by test strip NEGATIVE NEGATIVE Urine total bilirubin detection by test strip NEGATIVE NEGATIVE Urine urobilinogen measurement by automated test strip (mass/volume) 0.2 mg/dL NORMAL Urine leukocyte esterase detection by dipstick 3+ NEGATIVE Automated urine sediment erythrocyte count by microscopy (number/high power field) NONE NRG Automated urine sediment leukocyte count by microscopy (number/high power field) [HPF] NRG Bacteria detection in urine sediment by light microscopy FEW NRG Squamous epithelial cells detection in urine sediment by light microscopy 5-10 NRG Crystals detection in urine sediment by light microscopy NONE NRG Casts detection in urine sediment by light microscopy NONE NRG Mucus detection in urine sediment by light microscopy NEGATIVE NRG Complete urinalysis with reflex to culture NO NRG Automated blood complete blood count (hemogram) panel - 08/23/18 11:06 Blood leukocytes automated count (number/volume) 10.6 10*3/uL 4.3-11.0 Blood erythrocytes automated count (number/volume) 5.99 10*6/uL 4.35-5.85 Venous blood hemoglobin measurement (mass/volume) 16.0 g/dL 11.5-16.0 Blood hematocrit (volume fraction) 47 % 35-52 Automated erythrocyte mean corpuscular volume 78 [foz_us] 80-99 Automated erythrocyte mean corpuscular hemoglobin (mass per erythrocyte) 27 pg 25-34 Automated erythrocyte mean corpuscular hemoglobin concentration measurement (mass/volume) 34 g/dL 32-36 Automated erythrocyte distribution width ratio 14.8 % 10.0- 14.5 Automated blood platelet count (count/volume) 287 10*3/uL 130-400 Automated blood platelet mean volume measurement 10.5 [foz_us] 7.4-10.4 PT panel in platelet poor plasma by coagulation assay - 08/23/18 11:06 Prothrombin time (PT) in platelet poor plasma by coagulation assay 13.4 s 12.2-14.7 INR in platelet poor plasma or blood by coagulation assay 1.0 0.8-1.4 Activated partial thromboplastin time (aPTT) in platelet poor plasma bycoagulation assay - 08/23/18 11:06 Activated partial thromboplastin time (aPTT) in platelet poor plasma bycoagulation assay 29 s 24-35 Comprehensive metabolic panel - 08/23/18 11:06 Serum or plasma sodium measurement (moles/volume) 134 mmol/L 135-145 Serum or plasma potassium measurement (moles/volume) 4.4 mmol/L 3.6-5.0 Serum or plasma chloride measurement (moles/volume) 99 mmol/L 98-107 Carbon dioxide 25 mmol/L 21-32 Serum or plasma anion gap determination (moles/volume) 10 mmol/L 5-14 Serum or plasma urea nitrogen measurement (mass/volume) 7 mg/dL 7-18 Serum or plasma creatinine measurement (mass/volume) 0.71 mg/dL 0.60-1.30 Serum or plasma urea nitrogen/creatinine mass ratio 10 NRG Serum or plasma creatinine measurement with calculation of estimated glomerular filtration rate > NRG Serum or plasma glucose measurement (mass/volume) 153 mg/dL 70-105 Serum or plasma calcium measurement (mass/volume) 10.0 mg/dL 8.5-10.1 Serum or plasma total bilirubin measurement (mass/volume) 0.3 mg/dL 0.1-1.0 Serum or plasma alkaline phosphatase measurement (enzymatic activity/volume) 74 U/L 40-136 Serum or plasma aspartate aminotransferase measurement (enzymatic activity/volume) 21 U/L 5-34 Serum or plasma alanine aminotransferase measurement (enzymatic activity/volume) 21 U/L 0-55 Serum or plasma protein measurement (mass/volume) 7.7 g/dL 6.4-8.2 Serum or plasma albumin measurement (mass/volume) 4.3 g/dL 3.2-4.5 CALCIUM CORRECTED 9.8 mg/dL 8.5-10.1 Lipid 1996 panel - 08/23/18 11:06 Serum or plasma triglyceride measurement (mass/volume) 141 mg/dL <150 Serum or plasma cholesterol measurement (mass/volume) 173 mg/dL < 200 Serum or plasma cholesterol in HDL measurement (mass/volume) 40 mg/dL 40-60 Cholesterol in LDL [mass/volume] in serum or plasma by direct assay 114 mg/dL 1-129 Serum or plasma cholesterol in VLDL measurement (mass/volume) 28 mg/dL 5-40 Encounters ACCT No. Visit Date/Time Discharge Status Pt. Type Provider Facility Loc./Unit Complaint [id number] 07/11/2018 12:00:00 07/11/2018 23:59:59 CLS Outpatient [facility] [id number] 03/02/2018 15:20:00 Document Registration [id number] 01/12/2018 12:20:00 Document Registration [id number] 01/08/2018 14:20:00 Document Registration [id number] 11/24/2017 12:00:00 Document Registration [id number] 11/03/2017 08:40:00 Document Registration [id number] 10/26/2017 11:40:00 Document Registration [id number] 09/01/2017 11:20:00 Document Registration [id number] 02/24/2017 09:40:00 Document Registration [id number] 02/20/2017 09:30:00 Document Registration [id number] 06/25/2018 12:12:00 06/25/2018 23:59:59 CLS Outpatient ENDY LOUIS MD [facility] LAB M06.041,M06.042 [id number] 04/25/2018 09:30:00 04/25/2018 14:20:00 DIS Outpatient CARLOS HORTON MD [facility] SDC LEFT CUBITAL TUNNEL SYNDROME [id number] 04/18/2018 12:18:00 04/18/2018 13:37:00 DIS Outpatient CARLOS HORTON MD [facility] PREOP LEFT CUBITAL TUNNEL RELEASE [id number] 04/11/2018 14:51:00 04/11/2018 23:59:59 CLS Outpatient DIMA DOTSON APRN [facility] RAD WELL WOMAN EXAM [id number] 03/29/2018 11:00:00 03/29/2018 23:59:59 CLS Outpatient ENDY LOUIS MD [facility] LAB Z79.899 [id number] 12/29/2017 12:41:00 12/29/2017 23:59:59 CLS Outpatient SAMI GOMEZ MD [facility] LAB M05.79,Z79.899 [id number] 11/28/2017 12:53:00 11/28/2017 23:59:59 CLS Outpatient ARVIND CASTELLANOS MD [facility] CARD CAD,CAROTID ARTERY STENOSIS,CHEST PAIN SYNDROME [id number] 11/22/2017 11:33:00 11/22/2017 23:59:59 CLS Outpatient ARVIND CASTELLANOS MD [facility] CARD CAD,CAROTID ARTERY STENOSIS,CHEST PAIN SYNDROME [id number] 03/17/2017 21:45:00 03/18/2017 13:00:00 DIS Inpatient HUGO IBARRA DO [facility] ICU CHEST PAIN R/O ACS,PNEUMONIA,ACUTE RESPIRATORY DIS [id number] 03/02/2017 14:29:00 03/02/2017 23:59:59 CLS Outpatient CLAU DELEON APRN [facility] RAD Z12.31 SCREENING BREAST EXAMINATION [id number] 02/28/2017 11:38:00 02/28/2017 14:55:00 DIS Outpatient JAN YANEZ DO [facility] ENDO EPIGASTRIC ABD PAIN/DIARRHEA [id number] 02/21/2017 05:50:00 02/21/2017 13:50:00 DIS Outpatient JAN YANEZ DO [facility] PREOP COLONOSCOPY/EGD [id number] 05/25/2016 08:12:00 05/25/2016 13:55:00 DIS Outpatient CARLOS HORTON MD [facility] LEFT TORN MENISCUS [id number] 05/19/2016 11:40:00 05/19/2016 12:02:00 DIS Outpatient CARLOS HORTON MD [facility] PREOP LEFT TORN MENISCUS [id number] 05/09/2016 07:43:00 05/09/2016 23:59:59 CLS Outpatient RODERICK LILLY [facility] CARD CAD,HTN,HLP [id number] 05/06/2016 09:42:00 05/06/2016 23:59:59 CLS Outpatient RODERICK LILLY [facility] CARD CAD,HTN,HLP [id number] 03/23/2016 06:40:00 03/23/2016 12:05:00 DIS Outpatient CAROLS HORTON MD [facility] LEFT WRIST DEQUERVAIN TENDOSINOVITIS [id number] 03/03/2016 15:25:00 03/03/2016 15:50:00 DIS Outpatient CARLOS HORTON MD [facility] PREOP LEFT WRIST DEQUERVEINS TENDOSINOVITIS [id number] 01/04/2016 20:50:00 01/05/2016 06:20:00 DIS Outpatient CLAU DELEON APRN [facility] SLEEP SNORING,CHOKING [id number] 12/31/2015 10:29:00 12/31/2015 23:59:59 CLS Outpatient CLAU DELEON MA[employer]GER [employer] [facility] RAD RHEUMATOID ARTHRITIS,PAIN IN LT KNEE [id number] 09/24/2015 12:35:00 09/24/2015 23:59:59 CLS Outpatient 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 [facility] RAD CLOSED NONDISPLACE FRACTURE OF SCAPHOID L WRIST [id number] 09/17/2015 16:41:00 09/17/2015 23:59:59 CLS Outpatient CLAU DELEON APRN [facility] RAD RIGHT UPPER QUADRANT PAIN [id number] 08/01/2015 23:05:00 08/02/2015 10:30:00 DIS Inpatient VALDEZ MCDONNELL MD [facility] ICU CHEST PAIN [id number] 05/15/2015 13:07:00 05/15/2015 23:59:59 CLS Outpatient RODERICK LILLY [facility] LAB HYPERLIPIDEMIA, MIXED [id number] 01/28/2015 07:43:00 01/28/2015 15:00:00 DIS Outpatient ARVIND CASTELLANOS MD [facility] CATH ABNORMAL STRESS,CAD,HLP [id number] 01/19/2015 07:48:00 01/19/2015 23:59:59 CLS Outpatient RODERICK LILLY [facility] CARD CP, HTN, HLP [id number] 01/14/2015 08:01:00 01/14/2015 23:59:59 CLS Outpatient ARVIND CASTELLANOS MD [facility] CARD CHEST PAIN,CAD,HTN,HLP [id number] 10/19/2014 16:20:00 10/19/2014 17:00:00 DIS Emergency ASHUTOSH DONIS MD [facility] ER COUGHING UP BLOOD/SORE THROAT/CHEST CONGESTION [id number] 08/22/2018 09:00:00 PEN Preadmit ARVIND CASTELLANOS MD [facility] CATH CP,CAD,ABN STRESS TEST [id number] 11/10/2017 09:37:00 Document Registration
[2018-08-23] MEDS ORDERED: hydrOXYzine (VISTARIL) 25 MG capsule/tablet PO PRN (18:00)
[2018-08-23] MEDS: RT-ADVAIR HFA 115/21 MCG PER PUFF IH SCH (18:54)
[2018-08-23] MEDS: NS IV 1000 ML 1,000 ML IV SCH (20:06)
[2018-08-23] MEDS ORDERED: SUCRALFATE 1 GM (CARAFATE) TAB PO SCH (21:00)
[2018-08-23] MEDS ORDERED: traZODone 50 MG (DESYREL) TAB PO SCH (21:00)
[2018-08-23] MEDS ORDERED: BACLOFEN 10 MG (LIORESAL) TAB PO SCH (21:00)
[2018-08-23] MEDS ORDERED: NON-FORMULARY MEDICATION 1 EA EA (Hydroxyzine HCl 10 MG) PO SCH (21:00)
[2018-08-23] MEDS ORDERED: ATORVASTATIN 10 MG (LIPITOR) TABLET PO SCH (21:00)
[2018-08-23] MEDS ORDERED: ATORVASTATIN 20 MG (LIPITOR) TABLET PO SCH (21:00)
[2018-08-23] MEDS ORDERED: NON-FORMULARY MEDICATION 1 EA EA (Pregabalin (Lyrica) 150 MG) PO SCH (21:00)
[2018-08-23] MEDS ORDERED: PREGABALIN 75 MG (LYRICA) CAP PO SCH (21:00)
[2018-08-23] MEDS ORDERED: NON-FORMULARY MEDICATION 1 EA EA (Budesonide/Formoterol Fumarate (Symbicort 160-4.5 Mcg In IH SCH (21:00)
[2018-08-24 00:01] VITALS: BP 122/83
[2018-08-24] MEDS: NS IV 1000 ML 1,000 ML IV SCH (02:02)
[2018-08-24 04:00] VITALS: BP 111/65
[2018-08-24 04:04] LABS: HEMOGLOBIN 13.3 G/DL (11.5-16.0); MEAN PLATELET VOLUME 10.2 FL (7.4-10.4); RED CELL DISTRIBUTION WIDTH 14.3 % (10.0-14.5); WHITE BLOOD COUNT 7.5 10^3/uL (4.3-11.0)
[2018-08-24 04:27] LABS: BUN/CREATININE RATIO 15; CALCIUM 8.9 MG/DL (8.5-10.1); CARBON DIOXIDE 21 MMOL/L (21-32); CHLORIDE 106 MMOL/L (98-107); CREATININE SERUM 0.62 MG/DL (0.60-1.30); GFR ESTIMATED > 60; GLUCOSE 145 MG/DL (70-105); POTASSIUM 3.9 MMOL/L (3.6-5.0); SODIUM 137 MMOL/L (135-145)
[2018-08-24] MEDS ORDERED: PANTOPRAZOLE 40 MG (PROTONIX) TAB PO SCH (07:00)
[2018-08-24] MEDS: RT-ADVAIR HFA 115/21 MCG PER PUFF IH SCH (07:26)
--- NOTE | 2018-08-24 07:40 | Cardiology Progress Note ---
Subjective Date Seen by Provider: Aug 24, 2018 Time Seen by Provider: 07:40 Subjective/Events-last exam patient is laying down in bed, feeling better, no new complaint. No chest pain or shortness of breath Review of Systems General: No Chills, No Night Sweats, No Fatigue, No Malaise, No Appetite, No Other HEENT: No Head Aches, No Visual Changes, No Eye Pain, No Ear Pain, No Dysphasia, No Sinus Congestion, No Post Nasal Drip, No Sore Throat, No Other Pulmonary: No Dyspnea, No Cough, No Pleuritic Chest Pain, No Other Cardiovascular: No: Chest Pain, Palpitations, Orthopnea, Paroxysmal Noc. Dyspnea, Edema, Lt Headedness, Other Objective-Cardiology Exam Last Set of Vital Signs Vital Signs 08/24/18 08/24/18 08/24/18 08/24/18 00:01 04:00 07:00 07:26 Temp 98.1 Pulse 63 Resp 14 B/P (MAP) 111/65 (80) Pulse Ox 92 O2 Delivery Room Air Capillary Refill : Less Than 3 Seconds General: Alert, Oriented X3, Cooperative HEENT: Atraumatic, PERRLA Neck: Supple, No JVD, No Thyromegaly Lungs: Clear to Auscultation, Normal Air Movement Heart: Regular Rate, Normal S1, Normal S2, No Murmurs Abdomen: Normal Bowel Sounds, Soft, No Tenderness, No Hepatosplenomegaly, No Masses Extremities: No Clubbing, No Cyanosis, No Edema, Normal Pulses, No Tenderness/Swelling Skin: No Rashes, No Breakdown, No Significant Lesion Neuro: Normal Gait, Normal Speech, Strength at 5/5 X4 Ext, Normal Tone, Sensation Intact Psych/Mental Status: Mental Status NL, Mood NL Results Lab Laboratory Tests 08/23/18 11:06 08/24/18 03:56 A/P-Cardiology Admission Diagnosis Chest pain Coronary artery disease Hypertension Hyperlipidemia Assessment/Plan Chest pain nonspecific etiology. Reporting improvement. Coronary artery disease, status post cardiac catheterization and stenting to the right coronary artery, history of stent to the LAD, Hypertension, monitor blood pressure restart medication Hyperlipidemia, LDL 114, I will increase Lipitor to 20 mg daily Diabetes mellitus, instructed to hold metformin for 48 hours. Coronary angiogram findings: 1. Severe stenosis in the proximal right coronary artery successful stenting using Antionette 2.5 x 23 mm stent expanded to 3.5 mm distally and 3.7 mm proximally with excellent results. 2. Patent stent in the mid LAD, there is a 50-60 percent stenosis proximal LAD lesion that need to be monitored closely. 3. Otherwise mild coronary artery disease 4. Normal left ventricular size and systolic pressure estimated ejection fraction 60 percent ARVIND CASTELLANOS MD Aug 24, 2018 07:40
[2018-08-24] MEDS ORDERED: METF-399 PO (07:42)
[2018-08-24] MEDS ORDERED: CLOP75TA28 PO (07:42)
[2018-08-24] MEDS ORDERED: ATOR20TA66 PO (07:42)
--- NOTE | 2018-08-24 07:43 | Discharge Inst-Post CATH ---
Discharge Inst-CATH/EP Post Cardiac Cath/EP D/C Inst Follow Up/Plan Hold metformin for [address] CASTELLANOS's office in 2-4 weeks <b>CARDIAC CATH/EP PROCEDURE DISCHARGE INSTRUCTIONS</b> Cardiac Rehab Please be expecting a follow up call from Cardiac Rehab within in one week. ACTIVITY * Go Home directly and rest. * Limit activity of the leg (or wrist if it was used) for 7 days including aerobics, swimming, jogging, bicycling, etc. * Restrict stair-climbing for 7 days if possible, if not, climb up with your non-cath leg, then bring together on the same step. * Avoid lifting, pushing, pulling or excessive movement of the affected extremity for 7 days. * Customary sexual activity may be resumed after 2 days-use caution not to use a position that strains or causes pain to the affected extremity. * No driving for 24 hours. * NO SMOKING. * Avoid straining for bowel movements for 7 days. * Gentle walking on level ground is allowed. * Returning to work will depend on the type of procedure and the results. Your doctor will discuss this with you. CALL YOUR DOCTOR FOR ANY OF THE FOLLOWING: *If bleeding from the puncture site occurs- Apply gentle pressure to site with clean cloth and call your doctor or EMS. * If a knot or lump forms under the skin, increases in size, or causes pain. * If bruising appears to be worsening or moving further down your leg instead of disappearing. * Temperature above 101 F. CARE OF YOUR GROIN INCISION; * Bruising or purple discoloration of the skin near the puncture site is common. * You may shower only, no bathtub bathing for 5 days. Be careful to avoid slipping as your leg may feel stiff. * If a closure device was used on your femoral artery, please see the attached guide regarding care of the device and your leg. * Leave dressing on FOR 24 hours. CARE OF YOUR WRIST INCISION; * Bruising or purple discoloration of the skin near the puncture site is common. * You may shower. * DO NOT submerge wrist. * Leave dressing on FOR 24 hours. ARVIND CASTELLANOS MD Aug 24, 2018 07:43
[2018-08-24] MEDS ORDERED: NON-FORMULARY MEDICATION 1 EA EA (Liraglutide (Victoza 3-Pak) 1.8 MG) SQ SCH (09:00)
[2018-08-24] MEDS ORDERED: lisINopril 5 MG (PRINIVIL) TABLET PO SCH (09:00)
[2018-08-24] MEDS ORDERED: OMEGA 3 (FISH OIL) 1000 MG CAP PO SCH (09:00)
[2018-08-24] MEDS ORDERED: CLOPIDOGREL 75 MG (PLAVIX) TABLET PO SCH (09:00)
[2018-08-24] MEDS ORDERED: guaiFENesin (MUCINEX) 600 MG TAB PO SCH (09:00)
[2018-08-24] MEDS ORDERED: ASPIRIN 81 MG CHEW (CHILDREN'S ASA) PO SCH (09:00)
[2018-08-24] MEDS ORDERED: PARoxetine 20 MG (PAXIL) TAB PO SCH (09:00)
[2018-08-24] MEDS ORDERED: LORATADINE (CLARITIN) 10 MG TAB PO SCH (09:00)
[2018-08-24] MEDS ORDERED: ASPIRIN E.C. 81 MG (ECOTRIN) TAB PO SCH (09:00)
[2018-08-24] MEDS ORDERED: PARoxetine 10 MG (PAXIL) TAB PO SCH (09:00)
[2018-08-24] MEDS ORDERED: NON-FORMULARY MEDICATION 1 EA EA (Cetirizine HCl 10 MG) PO SCH (09:00)
== END 2018-08-24 09:05 | disposition home or self-care (01) ==
LOC: CATH 10:41 → ICU 13:52 → CATH 08-24 09:05
PROVIDERS: ATTEND Internal Medicine Cardiovascular Disease
DX: I25.10 Atherosclerotic heart disease of native coronary artery without angina pectoris (principal); I10 Essential (primary) hypertension; I08.1 Rheumatic disorders of both mitral and tricuspid valves; E78.5 Hyperlipidemia, unspecified; E11.9 Type 2 diabetes mellitus without complications; F17.210 Nicotine dependence, cigarettes, uncomplicated; E66.9 Obesity, unspecified; Z68.30 Body mass index [BMI] 30.0-30.9, adult; Z95.5 Presence of coronary angioplasty implant and graft; Z79.82 Long term (current) use of aspirin; Z79.84 Long term (current) use of oral hypoglycemic drugs; Z79.899 Other long term (current) drug therapy
CPT/HCPCS: 36415; 71045; 80048; 80053; 80061; 81000; 85027; 85610; 85730; 87081; 93005; 93458; 94640

== ENCOUNTER 2018-09-22 13:11 | Emergency (ER) | payer MEDICAID ==
[~2018-09-22] VITALS: Ht 162.6 cm; Wt 81.6 kg
[~2018-09-22 13:11] MED LIST changes: +ALBU6.7H8 INH; +ASPI-983 PO; +ATOR20TA66 PO; +BECL25SP NS; +BUTA1TAB9 PO; +CLOP75TA28 PO; +GUAI600T28 PO; +HYDR-3816 PO; +HYDR50CA3 PO; +PARO10TA3 PO; +PARO20TA5 PO
--- NOTE | 2018-09-22 13:14 | NUR ---
PT HERE WITH " THE OTHER 1/2". PT ALERT GCS 15. PT CURRENTLY APPEARS SOMEWHAT ANXIOUS AND IS HOLDING LEFT CHEST. PT RELATES RECENT HEART STENT ON AND RELATES " NOT FELT WELL SINCE THE STENT". PT C/O CHEST PAIN RATING 8 " SHARP" STARTED 1030 TODAY. ASSOCIATED WITH N/V AND " HOT FLASHES". TELE APPLIED SHOWS SR 85. RESP SHALLOW NONLABORED. PT DENIES ABD PAIN AND DIARRHEA RELATES NAUSEA NOW. PT ALSO C/O DYSPNEA " LITTLE BIT". LUNGS CTA WITH DECREASED AERATION BILATERALLY. ABD W/O PAIN WITH PALPATION. PT HAS A NONPRODUCTIVE SLIGHTLY COMGESTED COUGH IN ER AND IS A SMOKER. DONE SEING PT 1320.
--- NOTE | 2018-09-22 13:23 | NUR ---
TECH DOING EKG.
--- NOTE | 2018-09-22 13:28 | ED Chest Pain ---
General Stated Complaint: CHEST PAIN Source: patient Exam Limitations: no limitations History of Present Illness Date Seen by Provider: Sep 22, 2018 Time Seen by Provider: 13:25 Initial Comments 58-year-old diabetic smoker with history of coronary artery disease and subsequent coronary stenting most recently on August [address] Best presents to ER with reports of sharp substernal chest pain significantly worsened by moving or deep breathing. This began at rest at 10 AM this morning has been constant since. Immediately after onset she did have an episode of vomiting. She is on aspirin and Plavix and has not missed any doses of these. Primary care is [facility]. 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 NTG SL DENTAL EQUIPMENT REPAIRER: No Associated Symptoms: No shortness of breath, No weakness Allergies and Home Medications Allergies Coded Allergies: Sulfa (Sulfonamide Antibiotics) (Unverified Allergy, Mild, RASH, 04/18/18) adhesive tape (Verified Allergy, Mild, HIVES, 04/18/18) montelukast (Verified Allergy, Mild, DIZZY AND DROWSY, CONFUSION, 04/18/18) Home Medications Albuterol Sulfate 2.5 Mg/0.5 Ml Vial.neb, 2.5 MG IH QID PRN for SHORTNESS OF BREATH, (Reported) Albuterol Sulfate 6.7 Gm Hfa.aer.ad, 2 PUFF INH Q6H PRN for SHORTNESS OF BREATH, (Reported) Aspirin 81 Mg Tablet.dr, 81 MG PO DAILY, (Reported) Atorvastatin Calcium 20 Mg Tablet, 20 MG PO HS Prescribed by: ARVIND BEST on 08/24/18 0742 Baclofen 10 Mg Tablet, 10 MG PO TID, (Reported) Beclomethasone Dipropionate 25 Gm [place], 2 SPRAYS NS DAILY, (Reported) Budesonide/Formoterol Fumarate 10.2 Gm Hfa.aer.ad, 2 PUFF IH BID, (Reported) LAST FILLED -09-04 Butalb/Acetaminophen/Caffeine 1 Each Tablet, 1 TAB PO QID PRN for MIGRAINE, (Reported) Cetirizine HCl 10 Mg Tablet, 10 MG PO DAILY, (Reported) Clopidogrel Bisulfate 75 Mg Tablet, 75 MG PO DAILY Prescribed by: ARVIND BEST on 08/24/18 0742 Fish Oil/Dha/Epa 1 Each Capsule, 1,200 MG PO DAILY, (Reported) Guaifenesin 600 Mg Tab.er.12h, 600 MG PO BID PRN for CONGESTION, (Reported) Hydrocodone/Acetaminophen 1 Each Tablet, 1 TAB PO Q6H PRN for PAIN-MODERATE, (Reported) Hydroxyzine Pamoate 50 Mg Capsule, 50 MG PO TID PRN for ANXIETY, (Reported) Liraglutide 0.6 Mg/0.1 Ml Pen.injctr, 1.8 MG SQ 1200, (Reported) LAST FILLED 05-24-18 30 DAY SUPPLY Lisinopril 5 Mg Tablet, 5 MG PO DAILY, (Reported) Metformin HCl 1,000 Mg Tablet, 1,000 MG PO BID hold metformin for 48 hours Prescribed by: ARVIND BEST on 08/24/18 0742 Pantoprazole Sodium 40 Mg Tablet.dr, 40 MG PO DAILY, (Reported) Paroxetine HCl 20 Mg Tablet, 20 MG PO DAILY, (Reported) Pregabalin 150 Mg Capsule, 150 MG PO TID, (Reported) Sucralfate 1 Gm Tablet, 1 GM PO BID, (Reported) Trazodone HCl 50 Mg Tablet, 50 MG PO HS, (Reported) Patient Home Medication List Home Medication List Reviewed: Yes Review of Systems Review of Systems Constitutional: see HPI EENTM: No Symptoms Reported Respiratory: No Symptoms Reported Cardiovascular: See HPI, Chest Pain Gastrointestinal: See HPI Genitourinary: No Symptoms Reported Musculoskeletal: no symptoms reported Skin: no symptoms reported Psychiatric/Neurological: No Symptoms Reported Endocrine: No Symptoms Reported Hematologic/Lymphatic: No Symptoms Reported Past [id number] Hx Patient Social History Type Used: Cigarettes Recent Foreign Travel: No Contact w/Someone Who Travel: No Recent Hopitalizations: No Immunizations Up To Date Tetanus Booster (TDap): Unknown PED Vaccines UTD: No Date of Pneumonia Vaccine: Dec 23, 2016 Date of Influenza Vaccine: Dec 25, 2017 Seasonal Allergies Seasonal Allergies: Yes Past Medical History Surgeries: Yes (INGUINAL HERNIA, LEFT WRIST, L KNEE SCOPE) Coronary Stent, Gallbladder, Hysterectomy, Tonsillectomy Respiratory: Yes (O2 2L NC AT NIGHT) COPD Currently Using CPAP: No Currently Using BIPAP: No Cardiac: Yes (STENT x1 2011) Coronary Artery Disease, Heart Attack, Hypertension Neurological: Yes (STROKE AT 29YRS OLD-NO RESIDUAL) Stroke Reproductive Disorders: No ANESTHESIOLOGY CRNA History: Hysterectomy Sexually Transmitted Disease: No HIV/AIDS: No Genitourinary: No Gastrointestinal: Yes Gastroesophageal Reflux, Ulcer Musculoskeletal: Yes Arthritis, Rheumatoid Arthritis, Chronic Back Pain Endocrine: Yes Diabetes, Non-Insulin dep HEENT: Yes (GLASSES) Loss of Vision: Bilateral Hearing Impairment: Denies Cancer: No Psychosocial: Yes Sleep Difficulties, Anxiety, Depression Integumentary: No Blood Disorders: No Adverse Reaction/Blood Tranf: No (N/A) Family Medical History Cardiovascular disease 19 FATHER, Onset:Unknown Diabetes mellitus 19 FATHER, Onset:Unknown FH: CABG (coronary artery bypass surgery) 19 FATHER, Onset:Unknown FH: lung cancer 19 MOTHER, Onset:Unknown Myocardial infarction 19 FATHER, Onset:Unknown No Pertinent Family Hx Physical Exam Vital Signs Vital Signs - First Documented 09/22/18 09/22/18 13:14 14:30 Temp 97.7 Pulse 84 Resp 16 B/P (MAP) 133/80 (97) Pulse Ox 94 O2 Delivery Room Air O2 Flow Rate 2.00 Capillary Refill : Height, Weight, BMI Height: 5'6.00" Weight: 191lbs. 9.0oz. 86.755012au; 30.9 BMI Method:Stated General Appearance: No Apparent Distress, WD/WN HEENT: PERRL/EOMI, TMs Normal Neck: Full Range of Motion Respiratory: No Accessory Muscle Use, No Respiratory Distress, Other (lower sternum where she complains of pain is very tender to palpation) Cardiovascular: Regular Rate, Rhythm, Normal Peripheral Pulses Gastrointestinal: Normal Bowel Sounds, Non Tender, Soft Extremity: Normal Capillary Refill, Normal Inspection Neurologic/Psychiatric: Alert, Oriented x3 Skin: Normal Color, Warm/Dry Progress/Results/Core Measures Results/Orders Lab Results Laboratory Tests Test 09/22/18 13:28 09/22/18 15:38 Range/Units White Blood Count 8.8 4.3-11.0 10^3/uL Red Blood Count 5.42 4.35-5.85 10^6/uL Hemoglobin 14.3 11.5-16.0 G/DL Hematocrit 42 35-52 % Mean Corpuscular Volume 78 L 80-99 FL Mean Corpuscular Hemoglobin 26 25-34 PG Mean Corpuscular Hemoglobin Concent 34 32-36 G/DL Red Cell Distribution Width 14.7 H 10.0-14.5 % Platelet Count 250 130-400 10^3/uL Mean Platelet Volume 9.9 7.4-10.4 FL Neutrophils (%) (Auto) 60 42-75 % Lymphocytes (%) (Auto) 29 12-44 % Monocytes (%) (Auto) 8 0-12 % Eosinophils (%) (Auto) 2 0-10 % Basophils (%) (Auto) 1 0-10 % Neutrophils # (Auto) 5.3 1.8-7.8 X 10^3 Lymphocytes # (Auto) 2.6 1.0-4.0 X 10^3 Monocytes # (Auto) 0.7 0.0-1.0 X 10^3 Eosinophils # (Auto) 0.2 0.0-0.3 10^3/uL Basophils # (Auto) 0.0 0.0-0.1 10^3/uL Prothrombin Time 13.9 12.2-14.7 SEC INR Comment 1.0 0.8-1.4 Activated Partial Thromboplast Time 26 24-35 SEC D-Dimer 0.53 H 0.00-0.49 UG/ML Sodium Level 139 135-145 MMOL/L Potassium Level 3.8 3.6-5.0 MMOL/L Chloride Level 102 98-107 MMOL/L Carbon Dioxide Level 26 21-32 MMOL/L Anion Gap 11 5-14 MMOL/L Blood Urea Nitrogen 8 7-18 MG/DL Creatinine 0.63 0.60-1.30 MG/DL Estimat Glomerular Filtration Rate > 60 BUN/Creatinine Ratio 13 Glucose Level 104 70-105 MG/DL Calcium Level 9.5 8.5-10.1 MG/DL Corrected Calcium 9.6 8.5-10.1 MG/DL Magnesium Level 1.5 L 1.8-2.4 MG/DL Total Bilirubin 0.3 0.1-1.0 MG/DL Aspartate Amino Transf (AST/SGOT) 21 5-34 U/L Alanine Aminotransferase (ALT/SGPT) 19 0-55 U/L Alkaline Phosphatase 56 40-136 U/L Myoglobin 16.8 10.0-92.0 NG/ML Troponin I < 0.028 < 0.028 <0.028 NG/ML B-Type Natriuretic Peptide 56.8 <100.0 PG/ML Total Protein 6.7 6.4-8.2 GM/DL Albumin 3.9 3.2-4.5 GM/DL My Orders Orders - [employer] Cbc With Automated Diff (09/22/18 13:13) Magnesium (09/22/18 13:13) Chest 1 View, Ap/Pa Only (09/22/18 13:13) Ekg Tracing (09/22/18 13:13) Cardiac Profile 1 (09/22/18 13:13) Comprehensive Metabolic Panel (09/22/18 13:13) Myoglobin Serum (09/22/18 13:13) Protime With Inr (09/22/18 13:13) Partial Thromboplastin Time (09/22/18 13:13) O2 (09/22/18 13:13) Monitor-Rhythm Ecg Trace Only (09/22/18 13:13) Lipid Panel (09/23/18 06:00) Ed Iv/Invasive Line Start (09/22/18 13:13) BNP (09/22/18 13:13) Fibrin Degradation Products (09/22/18 13:13) Aspirin Chewable Tablet (Baby Aspirin Ch (09/22/18 13:30) Nitroglycerin 0.4 Mg Btl 25's (Nitrostat (09/22/18 13:30) Magnesium Oxide Tablet (Mag Ox Tablet) (09/22/18 14:00) Ketorolac Injection (Toradol Injection) (09/22/18 14:30) Troponin I (09/22/18 15:28) Medications Given in ED Current Medications Medications Dose Ordered Sig/Hector Route Start Time Stop Time Status Last Admin Dose Admin Aspirin 243 mg ONCE ONCE PO 09/22/18 13:30 09/22/18 13:31 DC 09/22/18 13:33 243 MG Ketorolac Tromethamine 15 mg ONCE ONCE IVP 09/22/18 14:30 09/22/18 14:31 DC 09/22/18 14:42 15 MG Magnesium Oxide 400 mg ONCE ONCE PO 09/22/18 14:00 09/22/18 14:01 DC 09/22/18 14:41 400 MG Nitroglycerin 1 TAB Q 5 MIN X 3 NEEDED PRN SL 09/22/18 13:30 09/22/18 13:34 0.4 MG Vital Signs/I&O 7/6/19 7/6/19 13:14 14:30 Temp 97.7 Pulse 84 Resp 16 B/P (MAP) 133/80 (97) Pulse Ox 94 O2 Delivery Room Air Nasal Cannula O2 Flow Rate 2.00 Departure Impression Primary Impression: Pleuritic chest pain Disposition: HOME, SELF-CARE Condition: Stable Departure-Patient Inst. Decision time for Depature: 16:10 Referrals: [facility] (PCP/Family) Primary Care Physician Patient Instructions: Chest Pain That Is Not Caused by the Heart (DC) Add. Discharge Instructions: 1. Follow-up with your doctor next week 2. Return to ER for any concerns 3. DWIGHT TEE APRN Sep 22, 2018 13:28
[2018-09-22] MEDS ORDERED: ASPIRIN 81 MG CHEW (CHILDREN'S ASA) PO ONE (13:30)
[2018-09-22] MEDS ORDERED: NITROGLYCERIN 0.4 MG SL TABS BTL 25'S SL PRN (13:30)
--- NOTE | 2018-09-22 13:30 | NUR ---
SKIP PERALTA BY ME
--- NOTE | 2018-09-22 13:32 | NUR ---
V/O DR Hopkins TRY A NITRO.
--- NOTE | 2018-09-22 13:34 | NUR ---
P OX GOOD TRACING 88 R/A . PT SAYS ON O2 AT NOC. I APPLIED 2/N/C
[2018-09-22 13:35] LABS: BASOPHILS % (AUTO) 1 % (0-10); EOSINOPHILS # (AUTO) 0.2 10^3/uL (0.0-0.3); EOSINOPHILS % (AUTO) 2 % (0-10); HEMATOCRIT 42 % (35-52); HEMOGLOBIN 14.3 G/DL (11.5-16.0); LYMPHOCYTES # (AUTO) 2.6 X 10^3 (1.0-4.0); LYMPHOCYTES % (AUTO) 29 % (12-44); MEAN CORPUSCULAR HEMOGLOBIN 26 PG (25-34); MEAN CORPUSCULAR HGB CONC 34 G/DL (32-36); MEAN CORPUSCULAR VOLUME 78 FL (80-99); MEAN PLATELET VOLUME 9.9 FL (7.4-10.4); MONOCYTES # (AUTO) 0.7 X 10^3 (0.0-1.0); MONOCYTES % (AUTO) 8 % (0-12); NEUTROPHILS # (AUTO) 5.3 X 10^3 (1.8-7.8); NEUTROPHILS % (AUTO) 60 % (42-75); PLATELET COUNT 250 10^3/uL (130-400); RED CELL DISTRIBUTION WIDTH 14.7 % (10.0-14.5); WHITE BLOOD COUNT 8.8 10^3/uL (4.3-11.0)
[2018-09-22 13:49] LABS: PROTHROMBIN TIME PATIENT 13.9 SEC (12.2-14.7)
[2018-09-22 13:58] LABS: ALANINE AMINOTRANSFERASE 19 U/L (0-55); ALBUMIN 3.9 GM/DL (3.2-4.5); ALKALINE PHOSPHATASE 56 U/L (40-136); BILIRUBIN,TOTAL 0.3 MG/DL (0.1-1.0); BUN/CREATININE RATIO 13; CALCIUM 9.5 MG/DL (8.5-10.1); CARBON DIOXIDE 26 MMOL/L (21-32); CHLORIDE 102 MMOL/L (98-107); CREATININE SERUM 0.63 MG/DL (0.60-1.30); GFR ESTIMATED > 60; GLUCOSE 104 MG/DL (70-105); MAGNESIUM 1.5 MG/DL (1.8-2.4); POTASSIUM 3.8 MMOL/L (3.6-5.0); SODIUM 139 MMOL/L (135-145); TOTAL PROTEIN 6.7 GM/DL (6.4-8.2)
[2018-09-22] MEDS ORDERED: MAGNESIUM OXIDE (MAG-OX)400 MG TAB PO ONE (14:00)
--- NOTE | 2018-09-22 14:03 | Diagnostic Imaging Report ---
INDICATION: New-onset chest pain. COMPARISON: 08/23/2018. DISCUSSION: Single portable upright view of the chest was obtained. Normal heart size. No focal consolidation, pleural fluid, or pneumothorax. No osseous abnormality. IMPRESSION: 1. Negative portable chest. Dictated by: Dictated on workstation # [id number]
--- NOTE | 2018-09-22 14:03 | NUR ---
PT REMAINS ALERT GCS 15. PT IN ROOM BY SELF CURRENTLY. PT DENIES CHEST PAIN. RELATES DYSPNEA " NOT SINCE I GOT O2 ". NO ACUTE SIGHNS OF DYSPNEA NOTED THOUGH RESP REMAIN SHALLOW NONLABORED. PT STILL C/O NAUSEA AND NO V/D NOTED IN ER VISIT THUS FAR. BP MACHINE IS 110/65 AUSC HR 84 REG AUSC RESP 24 RECHECK TEMP 97.5 P OX 2/N/C IS 94. TELE SHOWS SR 84.
[2018-09-22] MEDS ORDERED: KETOROLAC 30 MG/ML VIAL IVP ONE (14:30)
--- NOTE | 2018-09-22 14:38 | NUR ---
DR TOLD ME SHORT WHILE AGO PT HAS A H/A. HE ORDERED TORADOL. HE ALSO SAID EARLIER 2ND TROP AT 1530 IF NEG PT TO BE D/CD.
--- NOTE | 2018-09-22 15:30 | NUR ---
APPROX TIME I CALLED LAB TO DO 2ND TROP SO I CAN GET A NEW PT CHEST PAIN
[2018-09-22 16:20] VITALS: BP 128/72
--- NOTE | 2018-09-22 16:20 | NUR ---
D/C INSTRUCTIONS TO PT. TOLD TO READ ALL PAPERS. NO SCRIPTS GIVEN. PT LEFT IN W/C WITH . I HELPED PT TO THE CAR. PT KNOWS F/U. I WENT OPVER THE HANDTYPED BY INFORMATION ON THE CHART. IV D/CD BY ME PRIOR TO D/C.
== END 2018-09-22 16:20 | disposition home or self-care (01) ==
LOC: EDUNIT# 13:11 → ER 13:13
DX: R07.81 Pleurodynia (principal); E11.9 Type 2 diabetes mellitus without complications; I25.10 Atherosclerotic heart disease of native coronary artery without angina pectoris; J44.9 Chronic obstructive pulmonary disease, unspecified; I10 Essential (primary) hypertension; I25.2 Old myocardial infarction; K21.9 Gastro-esophageal reflux disease without esophagitis; M06.9 Rheumatoid arthritis, unspecified; F41.9 Anxiety disorder, unspecified; F32.9 Major depressive disorder, single episode, unspecified; Z86.73 Personal history of transient ischemic attack (TIA), and cerebral infarction without residual deficits; Z99.81 Dependence on supplemental oxygen; Z95.5 Presence of coronary angioplasty implant and graft; Z79.82 Long term (current) use of aspirin; Z79.02 Long term (current) use of antithrombotics/antiplatelets; Z88.2 Allergy status to sulfonamides; Z88.8 Allergy status to other drugs, medicaments and biological substances; Z79.84 Long term (current) use of oral hypoglycemic drugs; Z90.89 Acquired absence of other organs; Z90.710 Acquired absence of both cervix and uterus; Z82.49 Family history of ischemic heart disease and other diseases of the circulatory system; Z80.1 Family history of malignant neoplasm of trachea, bronchus and lung
CPT/HCPCS: 36415; 71045; 80053; 83735; 83874; 83880; 84484; 85025; 85379; 85610; 85730; 93005; 93041; 96374

== ENCOUNTER → 2019-03-26 | Outpatient (CLI) | payer MEDICAID ==
[~2019-03-26] MED LIST changes: -OMEP10CA4 PO; +OMEP10CA5 PO
--- NOTE | 2019-03-26 13:51 | Diagnostic Imaging Report ---
INDICATION: Palpable lump in the right back. FINDINGS: Sonographic interrogation of the area of lump was performed. There is a hypoechoic, circumscribed solid appearing mass at the area of interest measuring 3.0 x 0.7 x 2.6 cm. This may represent a lipoma. No fluid collection is seen. IMPRESSION: Circumscribed hypoechoic solid nodule at the area of palpable abnormality, perhaps a lipoma. Continued clinical follow-up to confirm stability is recommended. Dictated by: Dictated on workstation # [id number]
== END ==
LOC: RAD 12:55
PROVIDERS: ATTEND Nurse Practitioner Community Health
DX: D17.9 Benign lipomatous neoplasm, unspecified (principal)
CPT/HCPCS: 76999

== ENCOUNTER → 2019-05-22 | Outpatient (CLI) | payer MEDICAID ==
[~2019-05-22] VITALS: Ht 167 cm; Wt 84.0 kg
[~2019-05-22] MED LIST changes: -HYDR-3816 PO; +REGADENOSON 0.4 MG/5 ML SYR (LEXISCAN) IV ONE; -TRAZ-222 PO; +TRZ50T PO
[2019-05-22] MEDS: CATHETER FLUSH 10 ML SYR IV PRN ×2 (11:06→12:44)
[2019-05-22 12:43] VITALS: BP 131/72
--- NOTE | 2019-05-22 19:27 | STRESS TEST ---
DATE OF SERVICE: 05/22/2019 LEXISCAN MYOVIEW STRESS TEST REPORT REFERRING PHYSICIAN: [facility]. Baseline heart rate is 70. Baseline blood pressure 157/78. Baseline EKG is sinus rhythm with no ischemic changes. In summary, the patient was injected with 10.95 mCi of technetium-99 Myoview and the resting images were obtained. Then, the patient received 0.4 mg of Lexiscan followed by 28.7 mCi of technetium-99 Myoview. Throughout the test, there were no EKG changes. The resting and stress images were reviewed and compared in the short axis, horizontal long axis, and vertical long axis views. Review of the images showed breast attenuation with typical female pattern. No significant ischemia or infarction. SSS is 0. TID value 1.07. On the gated images, the left ventricle appeared to be normal size with normal contractility. Calculated ejection fraction 65%. CONCLUSION: 1. The patient tolerated Lexiscan well. 2. Breast attenuation with no significant ischemia or infarction on SPECT images. 3. Normal left ventricular size with normal contractility. Calculated ejection fraction 65%. Job ID: [id number] DocumentID: [id number] Dictated Date: 05/22/2019 16:05:09 Blind Eyeletter Date: 05/22/2019 19:26:00 Dictated By: ARVIND CASTELLANOS MD
== END ==
LOC: CARD 10:31
PROVIDERS: ATTEND Physician Assistant
DX: I25.10 Atherosclerotic heart disease of native coronary artery without angina pectoris (principal); I65.23 Occlusion and stenosis of bilateral carotid arteries; E11.9 Type 2 diabetes mellitus without complications; N64.89 Other specified disorders of breast
CPT/HCPCS: 78452; 93017

== ENCOUNTER → 2019-09-10 | Outpatient (CLI) | payer MEDICAID ==
[~2019-09-10] MED LIST changes: +HOLD METFORMIN - RECEIVED CONTRAST 20 ML VIAL IV SCH; +IOHEXOL 350 MG/ML 100 ML (OMNIPAQUE 350) VIAL IV ONE; +NS 100 ML (IVPB) BAG IV ONE; -REGADENOSON 0.4 MG/5 ML SYR (LEXISCAN) IV ONE; +RT-ALBUTEROL SULF 2.5 MG/3 ML PRE-MIX VIAL INH NR
[2019-09-10 12:12] LABS: CREATININE SERUM 0.67 MG/DL (0.60-1.30); GFR ESTIMATED > 60
[2019-09-10 12:13] LABS: BUN/CREATININE RATIO 9
[2019-09-10 12:56] LABS: ABG BASE EXCESS 3.2 MMOL/L (-2.5-2.5); ABG OXYGEN SATURATION 94 % (94-100); ABG PCO2 45 MMHG (35-45); ABG PH 7.41 (7.37-7.43); ABG PO2 66 MMHG (79-93); ABG TCO2 29.2 MMOL/L (21.0-31.0); ALLENS TEST POSITIVE; PATIENT TEMP 36; VENTILATOR NO
--- NOTE | 2019-09-10 14:06 | Diagnostic Imaging Report ---
PROCEDURE: CT chest with contrast only. TECHNIQUE: Multiple contiguous axial images were obtained through the chest after administration of intravenous contrast. Auto Exposure Controls were utilized during the CT exam to meet ALARA standards for radiation dose reduction. INDICATION: History of COPD, difficulty breathing. CORRELATION: None. FINDINGS: A few mildly prominent but nonpathologically enlarged mediastinal along with hilar and axillary lymph nodes are present. The visualized portion of the thyroid gland is unremarkable. The heart size is normal. There are, however, rather extensive areas of coronary artery calcification and/or potential stenting present. This involves both the right and left coronary artery distributions. The thoracic aorta is unremarkable. A very small hiatal hernia is present. The lung headley are clear of infiltrate. In the medial aspect of the superior segment of the right lower lobe, there is a smoothly marginated oval 7 mm nodule (image 54 series 3). There is at least mild severity hepatic steatosis. Cholecystectomy changes. Mildly accentuated lower thoracic kyphosis and degenerative change about the thoracic spine. No acute bony abnormality or bony destructive change. IMPRESSION: 1. Negative for acute abnormality in the chest. 2. Emphysematous changes about the lung parenchyma. Small nodule in the superior segment of the medial right lower lobe. Followup CT chest in 3-6 months would be recommended. 3. Rather significant amount of scattered coronary artery calcifications. 4. Small hiatal hernia and circumferential wall thickening in the low esophagus. Correlation for symptoms. Dictated by: Dictated on workstation # [id number]
== END ==
LOC: RT 11:07
PROVIDERS: ATTEND Internal Medicine Critical Care Medicine
DX: J43.9 Emphysema, unspecified (principal); I25.10 Atherosclerotic heart disease of native coronary artery without angina pectoris; K44.9 Diaphragmatic hernia without obstruction or gangrene; K22.8 Other specified diseases of esophagus; R91.1 Solitary pulmonary nodule
CPT/HCPCS: 36415; 36600; 71260; 82565; 82805; 84520; 94060; 94726; 94729

== ENCOUNTER → 2019-09-30 | Outpatient (CLI) | payer MEDICAID ==
[~2019-09-30] MED LIST changes: -HOLD METFORMIN - RECEIVED CONTRAST 20 ML VIAL IV SCH; -IOHEXOL 350 MG/ML 100 ML (OMNIPAQUE 350) VIAL IV ONE; -NS 100 ML (IVPB) BAG IV ONE; -RT-ALBUTEROL SULF 2.5 MG/3 ML PRE-MIX VIAL INH NR
== END ==
LOC: LABNPT 06:36
PROVIDERS: ATTEND Nurse Practitioner Family
DX: Z01.812 Encounter for preprocedural laboratory examination (principal); Z20.828 Contact with and (suspected) exposure to other viral communicable diseases
CPT/HCPCS: 87635

== ENCOUNTER 2019-10-08 19:27 | Outpatient (CLI) | payer MEDICAID | END 2019-10-09 06:05 | disposition home or self-care (01) | LOC: SLEEP 19:27 | PROVIDERS: ATTEND Nurse Practitioner Family | DX: Z01.812 Encounter for preprocedural laboratory examination (principal); G47.33 Obstructive sleep apnea (adult) (pediatric); G47.36 Sleep related hypoventilation in conditions classified elsewhere; Z20.828 Contact with and (suspected) exposure to other viral communicable diseases | CPT/HCPCS: 95810 ==

== ENCOUNTER → 2019-11-11 | Outpatient (CLI) | payer MEDICAID ==
[2019-11-11 13:55] LABS: ALANINE AMINOTRANSFERASE 16 U/L (0-55); ALBUMIN 3.7 GM/DL (3.2-4.5); ALKALINE PHOSPHATASE 80 U/L (40-136); BILIRUBIN,TOTAL 0.4 MG/DL (0.1-1.0); BUN/CREATININE RATIO 10; CALCIUM 8.9 MG/DL (8.5-10.1); CARBON DIOXIDE 25 MMOL/L (21-32); CHLORIDE 102 MMOL/L (98-107); CHOLESTEROL 128 MG/DL (< 200); CREATININE SERUM 0.79 MG/DL (0.60-1.30); GFR ESTIMATED > 60; GLUCOSE 263 MG/DL (70-105); HDL CHOLESTEROL 41 MG/DL (40-60); POTASSIUM 4.1 MMOL/L (3.6-5.0); SODIUM 135 MMOL/L (135-145); TOTAL PROTEIN 7.1 GM/DL (6.4-8.2); TRIGLYCERIDES 156 MG/DL (<150); VLDL CHOLESTEROL 31 MG/DL (5-40)
== END ==
LOC: LAB 13:13
PROVIDERS: ATTEND Physician Assistant
DX: I65.29 Occlusion and stenosis of unspecified carotid artery (principal); R07.9 Chest pain, unspecified; I10 Essential (primary) hypertension; I34.0 Nonrheumatic mitral (valve) insufficiency
CPT/HCPCS: 36415; 80053; 80061

== ENCOUNTER → 2019-11-21 | Outpatient (CLI) | payer MEDICAID ==
[~2019-11-21] MED LIST changes: +ASPI-1238 PO; -ASPI-983 PO
--- NOTE | 2019-11-21 15:36 | Diagnostic Imaging Report ---
PROCEDURE: MRI lumbar spine. TECHNIQUE: Multiplanar, multisequence MRI of the lumbar spine was performed without contrast. INDICATION: Low back pain. COMPARISON: There are no prior MRI examinations available for comparison. FINDINGS: The T2 parasagittal images do show mild anterior translation of L4 with respect to L5. The disc at this level is fairly well-maintained, although disc is desiccated. The thecal sac is generous and the AP diameter is only narrowed to 20.3 mm. There is no significant neural foraminal narrowing at this level. The remainder of the lumbar spine is unremarkable for spinal stenosis or nerve root encroachment. There is no abnormal signal arising from the cord or the vertebral bodies to indicate an acute abnormality. There is no sign of a paraspinal mass. IMPRESSION: 1. There is slight anterior translation of L4 with respect to S1 and there is moderate degenerative disc disease at this level. However, there is no evidence for spinal stenosis or nerve root encroachment. 2. The remainder of the lumbar spine is also unremarkable for spinal stenosis or nerve root encroachment. 3. There is no sign of an acute bony abnormality or of a cord lesion. Dictated by: Dictated on workstation # [id number]
== END ==
LOC: RAD 14:00
PROVIDERS: ATTEND Nurse Practitioner Community Health
DX: M51.16 Intervertebral disc disorders with radiculopathy, lumbar region (principal)
CPT/HCPCS: 72148

== ENCOUNTER → 2020-01-07 | Outpatient (CLI) | payer MEDICAID ==
[~2020-01-07] MED LIST changes: +CATHETER FLUSH 10 ML SYR IV PRN; +HOLD METFORMIN - RECEIVED CONTRAST 20 ML VIAL IV SCH; +IOHEXOL 350 MG/ML 100 ML (OMNIPAQUE 350) VIAL IV ONE; +NS 100 ML (IVPB) BAG IV ONE; -PANT40TA3 PO; +PANT40TA52 PO
[2020-01-07 11:39] LABS: BUN/CREATININE RATIO 16; CREATININE SERUM 0.75 MG/DL (0.60-1.30); GFR ESTIMATED > 60
--- NOTE | 2020-01-07 12:58 | Diagnostic Imaging Report ---
PROCEDURE: CT chest with contrast only. TECHNIQUE: Multiple contiguous axial images were obtained through the chest after administration of intravenous contrast. Auto Exposure Controls were utilized during the CT exam to meet ALARA standards for radiation dose reduction. DATE: January 07, 2020. COMPARISON: CT chest September 10, 2019. INDICATION: 59-year-old female, pulmonary nodule. Cough. FINDINGS: There are upper lobe predominant findings of centrilobular emphysema. There is a noncalcified right lower lobe pulmonary nodule on axial image 53 which measures 5 mm in size. There is a 3 mm left lower lobe pulmonary nodule on axial image 90. Both nodules are unchanged in size since September 10, 2019. There is no identified new or enlarging pulmonary nodule. There is no otherwise noted focal airspace consolidation. There are some areas of mosaic lung attenuation most likely reflecting scarring chronic small areas disease and air trapping. There is no identified pneumothorax. There is no pleural effusion. The central airways are patent. The heart is not enlarged. There is no pericardial effusion. There are atherosclerotic calcifications. There is no identified central pulmonary embolus. There is no abnormally enlarged mediastinal, hilar, or axillary lymph node which meets CT size criteria for adenopathy. The patient is status post cholecystectomy. There is a right adrenal nodule on axial image 133 measuring 9 mm in size. This is unchanged. This is too small to characterize. Additional evaluation of the imaged portions of the upper abdomen is unremarkable. There are degenerative changes of the spine. There is no identified acute bony abnormality. IMPRESSION: CT CHEST. 1. 5 mm right lower lobe and 3 mm left lower lobe pulmonary nodules, but stable since September 10, 2019. Recommend follow-up CT chest without contrast in 6 months to evaluate for stability. 2. Mild upper lobe predominant findings of centrilobular emphysema. 3. 9 mm indeterminate right adrenal nodule which is unchanged. Dictated by: Dictated on workstation # [id number]
== END ==
LOC: RAD 11:08
PROVIDERS: ATTEND Nurse Practitioner Family
DX: J98.4 Other disorders of lung (principal); R91.8 Other nonspecific abnormal finding of lung field; G47.36 Sleep related hypoventilation in conditions classified elsewhere; J43.2 Centrilobular emphysema; E27.9 Disorder of adrenal gland, unspecified
CPT/HCPCS: 36415; 71260; 82565; 84520

== ENCOUNTER 2020-01-16 14:11 | Emergency (ER) | payer MEDICAID ==
[~2020-01-16] VITALS: Ht 162 cm; Wt 88.4 kg
[~2020-01-16 14:11] MED LIST changes: -CATHETER FLUSH 10 ML SYR IV PRN; -HOLD METFORMIN - RECEIVED CONTRAST 20 ML VIAL IV SCH; -IOHEXOL 350 MG/ML 100 ML (OMNIPAQUE 350) VIAL IV ONE; -NS 100 ML (IVPB) BAG IV ONE
[2020-01-16 14:12] VITALS: BP 133/77
[2020-01-16] MEDS ORDERED: ASPIRIN 81 MG CHEW (CHILDREN'S ASA) PO ONE (14:30)
[2020-01-16] MEDS: NITROGLYCERIN 0.4 MG SL TABS BTL 25'S SL PRN ×2 (14:36→15:20)
--- NOTE | 2020-01-16 14:38 | ED General ---
General Stated Complaint: CHEST PAIN Source of Information: Patient Exam Limitations: No Limitations History of Present Illness Date Seen by Provider: Jan 16, 2020 Time Seen by Provider: 14:36 Initial Comments To ER with reports of chest pain. This began last night with left-sided sharp and worsened by deep breathing. She has had an increased cough. No fevers. She does have COPD and wears oxygen at night. Smokes 6 cigarettes per day. History of 2 coronary stents. Timing/Duration: 1-2 Days Severity: Moderate Associated Systoms: Cough Allergies and Home Medications Allergies Coded Allergies: Sulfa (Sulfonamide Antibiotics) (Unverified Allergy, Mild, RASH, 04/18/18) adhesive tape (Verified Allergy, Mild, HIVES, 04/18/18) montelukast (Verified Allergy, Mild, DIZZY AND DROWSY, CONFUSION, 04/18/18) Home Medications Albuterol Sulfate 2.5 Mg/0.5 Ml Vial.neb, 2.5 MG IH QID PRN for SHORTNESS OF BREATH, (Reported) Albuterol Sulfate 6.7 Gm Hfa.aer.ad, 2 PUFF INH Q6H PRN for SHORTNESS OF BREATH, (Reported) Aspirin 81 Mg Tablet.dr, 81 MG PO DAILY, (Reported) Atorvastatin Calcium 20 Mg Tablet, 20 MG PO HS Prescribed by: ARVIND CASTELLANOS on 08/24/18 0742 Azithromycin 250 Mg Tablet, 250 MG PO UD TAKE 2 TABLETS ON DAY ONE THEN TAKE 1 TABLET DAILY FOR FOUR MORE DAYS Prescribed by: DWIGHT TEE on 01/16/20 1732 Baclofen 10 Mg Tablet, 10 MG PO TID, (Reported) Beclomethasone Dipropionate 25 Gm [place], 2 SPRAYS NS DAILY, (Reported) Budesonide/Formoterol Fumarate 10.2 Gm Hfa.aer.ad, 2 PUFF IH BID, (Reported) LAST FILLED -09-04 Butalb/Acetaminophen/Caffeine 1 Each Tablet, 1 TAB PO QID PRN for MIGRAINE, (Reported) Cetirizine HCl 10 Mg Tablet, 10 MG PO DAILY, (Reported) Clopidogrel Bisulfate 75 Mg Tablet, 75 MG PO DAILY Prescribed by: ARVIND CASTELLANOS on 08/24/18 0742 Fish Oil/Dha/Epa 1 Each Capsule, 1,200 MG PO DAILY, (Reported) Guaifenesin 600 Mg Tab.er.12h, 600 MG PO BID PRN for CONGESTION, (Reported) Hydrocodone Bit/Acetaminophen 1 Each Tablet, 1 TAB PO Q6H PRN for PAIN-MODERATE, (Reported) Hydroxyzine Pamoate 50 Mg Capsule, 50 MG PO TID PRN for ANXIETY, (Reported) Liraglutide 0.6 Mg/0.1 Ml Pen.injctr, 1.8 MG SQ 1200, (Reported) LAST FILLED 05-24-18 30 DAY SUPPLY Lisinopril 5 Mg Tablet, 5 MG PO DAILY, (Reported) Metformin HCl 1,000 Mg Tablet, 1,000 MG PO BID hold metformin for 48 hours Prescribed by: ARVIND CASTELLANOS on 08/24/18 0742 Pantoprazole Sodium 40 Mg Tablet.dr, 40 MG PO DAILY, (Reported) Paroxetine HCl 20 Mg Tablet, 20 MG PO DAILY, (Reported) Prednisone 20 Mg Tab, 40 MG PO DAILY Prescribed by: DWIGHT TEE on 01/16/20 1732 Pregabalin 150 Mg Capsule, 150 MG PO TID, (Reported) Sucralfate 1 Gm Tablet, 1 GM PO BID, (Reported) Trazodone HCl 50 Mg Tablet, 50 MG PO HS, (Reported) Patient Home Medication List Home Medication List Reviewed: Yes Review of Systems Review of Systems Constitutional: see HPI EENTM: see HPI Respiratory: no symptoms reported Cardiovascular: no symptoms reported Genitourinary: no symptoms reported Musculoskeletal: no symptoms reported Skin: no symptoms reported Psychiatric/Neurological: No Symptoms Reported Past Ayddfdx-Bhjlgf-Tvkclb Hx Patient Social History Type Used: Cigarettes Recent Foreign Travel: No Contact w/Someone Who Travel: No Recent Hopitalizations: No Immunizations Up To Date Tetanus Booster (TDap): Unknown PED Vaccines UTD: No Date of Pneumonia Vaccine: Dec 23, 2016 Date of Influenza Vaccine: Dec 25, 2017 Seasonal Allergies Seasonal Allergies: Yes Past Medical History Surgeries: Yes (INGUINAL HERNIA, LEFT WRIST, L KNEE SCOPE) Coronary Stent, Gallbladder, Hysterectomy, Tonsillectomy Respiratory: Yes (O2 2L NC AT NIGHT) COPD Currently Using CPAP: No Currently Using BIPAP: No Cardiac: Yes (STENT x1 2010) Coronary Artery Disease, Heart Attack, Hypertension Neurological: Yes (STROKE AT 29YRS OLD-NO RESIDUAL) Stroke Reproductive Disorders: No 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 Sexually Transmitted Disease: No HIV/AIDS: No Genitourinary: No Gastrointestinal: Yes Gastroesophageal Reflux, Ulcer Musculoskeletal: Yes Arthritis, Rheumatoid Arthritis, Chronic Back Pain Endocrine: Yes Diabetes, Non-Insulin dep HEENT: Yes (GLASSES) Loss of Vision: Bilateral Hearing Impairment: Denies Cancer: No Psychosocial: Yes Sleep Difficulties, Anxiety, Depression Integumentary: No Blood Disorders: No Adverse Reaction/Blood Tranf: No (N/A) Family Medical History Cardiovascular disease 19 FATHER, Onset:Unknown Diabetes mellitus 19 FATHER, Onset:Unknown FH: CABG (coronary artery bypass surgery) 19 FATHER, Onset:Unknown FH: lung cancer 19 MOTHER, Onset:Unknown Myocardial infarction 19 FATHER, Onset:Unknown No Pertinent Family Hx Physical Exam Vital Signs Vital Signs - First Documented 01/16/20 14:12 Temp 36.5 Pulse 78 Resp 24 B/P (MAP) 133/77 (95) Pulse Ox 91 O2 Delivery Room Air Capillary Refill : Height, Weight, BMI Height: 5'4.00" Weight: 180lbs. 9.0oz. 81.901084me; 30.11 BMI Method:Stated General Appearance: No Apparent Distress, WD/WN, Chronically ill, Obese Eyes: Bilateral Eye Normal Inspection, Bilateral Eye PERRL, Bilateral Eye EOMI Neck: Full Range of Motion, Normal Inspection Respiratory: Lungs Clear, Normal Breath Sounds, No Accessory Muscle Use, No Respiratory Distress; No Wheezing Gastrointestinal: Normal Bowel Sounds, Non Tender, Soft Extremity: Normal Capillary Refill, Normal Inspection Neurologic/Psychiatric: Alert, Oriented x3 Skin: Normal Color, Warm/Dry Progress/Results/Core Measures Suspected Sepsis SIRS Temperature: Pulse: Respiratory Rate: Laboratory Tests 01/16/20 14:52: White Blood Count 10.8 Blood Pressure / Mean: Laboratory Tests 01/16/20 14:52: Creatinine 0.79, Platelet Count 195, Total Bilirubin 0.4 Results/Orders Lab Results Laboratory Tests Test 01/16/20 14:33 01/16/20 14:52 01/16/20 15:03 01/16/20 17:00 Range/Units Coronavirus 2019 ([facility]) Negative Negative White Blood Count 10.8 4.3-11.0 10^3/uL Red Blood Count 6.23 H 3.80-5.11 10^6/uL Hemoglobin 16.3 H 11.5-16.0 g/dL Hematocrit 50 35-52 % Mean Corpuscular Volume 80 80-99 fL Mean Corpuscular Hemoglobin 26 25-34 pg Mean Corpuscular Hemoglobin Concent 33 32-36 g/dL Red Cell Distribution Width 13.8 10.0-14.5 % Platelet Count 195 130-400 10^3/uL Mean Platelet Volume 10.4 9.0-12.2 fL Immature Granulocyte % (Auto) 0 % Neutrophils (%) (Auto) 65 42-75 % Lymphocytes (%) (Auto) 25 12-44 % Monocytes (%) (Auto) 8 0-12 % Eosinophils (%) (Auto) 2 0-10 % Basophils (%) (Auto) 1 0-10 % Neutrophils # (Auto) 7.0 1.8-7.8 10^3/uL Lymphocytes # (Auto) 2.7 1.0-4.0 10^3/uL Monocytes # (Auto) 0.8 0.0-1.0 10^3/uL Eosinophils # (Auto) 0.2 0.0-0.3 10^3/uL Basophils # (Auto) 0.1 0.0-0.1 10^3/uL Immature Granulocyte # (Auto) 0.0 0.0-0.1 10^3/uL D-Dimer < 0.27 0.00-0.49 UG/ML Sodium Level 136 135-145 MMOL/L Potassium Level 3.7 3.6-5.0 MMOL/L Chloride Level 100 98-107 MMOL/L Carbon Dioxide Level 26 21-32 MMOL/L Anion Gap 10 5-14 MMOL/L Blood Urea Nitrogen 11 7-18 MG/DL Creatinine 0.79 0.60-1.30 MG/DL Estimat Glomerular Filtration Rate > 60 BUN/Creatinine Ratio 14 Glucose Level 172 H 70-105 MG/DL Calcium Level 8.9 8.5-10.1 MG/DL Corrected Calcium 8.9 8.5-10.1 MG/DL Magnesium Level 2.2 1.6-2.4 MG/DL Total Bilirubin 0.4 0.1-1.0 MG/DL Aspartate Amino Transf (AST/SGOT) 15 5-34 U/L Alanine Aminotransferase (ALT/SGPT) 14 0-55 U/L Alkaline Phosphatase 85 40-136 U/L Troponin I < 0.028 < 0.028 <0.028 NG/ML B-Type Natriuretic Peptide 27.2 <100.0 PG/ML Total Protein 7.3 6.4-8.2 GM/DL Albumin 4.0 3.2-4.5 GM/DL Urine Color YELLOW Urine Clarity CLEAR Urine pH 6.0 5-9 Urine Specific [place] 1.025 H 1.016-1.022 Urine Protein NEGATIVE NEGATIVE Urine Glucose (UA) TRACE H NEGATIVE Urine Ketones NEGATIVE NEGATIVE Urine Nitrite NEGATIVE NEGATIVE Urine Bilirubin 1+ H NEGATIVE Urine Urobilinogen 1.0 < = 1.0 MG/DL Urine Leukocyte Esterase NEGATIVE NEGATIVE Urine RBC (Auto) NEGATIVE NEGATIVE Urine RBC NONE /HPF Urine WBC NONE /HPF Urine Squamous Epithelial Cells 5-10 /HPF Urine Crystals NONE /LPF Urine Bacteria TRACE /HPF Urine Casts NONE /LPF Urine Mucus MODERATE H /LPF Urine Culture Indicated NO Micro Results Microbiology 01/16/20 Influenza Types A,B Antigen (MARIA ESTHER) - Final, Complete My Orders Orders - DWIGHT TEE ACCOUNT LIAISON Cbc With Automated Diff (01/16/20 14:27) Comprehensive Metabolic Panel (01/16/20 14:27) Ua Culture If Indicated (01/16/20 14:27) BNP (01/16/20 14:27) Troponin I (01/16/20 14:27) Ed Iv/Invasive Line Start (01/16/20 14:27) Magnesium (01/16/20 14:27) Ekg Tracing (01/16/20 14:27) Influenza A And B Antigens (01/16/20 14:27) Covid 19 Inhouse Test (01/16/20 14:27) Fibrin Degradation Products (01/16/20 14:27) Aspirin Chewable Tablet (Baby Aspirin Ch (01/16/20 14:30) Nitroglycerin 0.4 Mg Btl 25's (Nitrostat (01/16/20 14:30) Chest 1 View, Ap/Pa Only (01/16/20 14:32) Hydrocodone/Apap 10/325 Tablet (Lortab 1 (01/16/20 15:45) Ns Iv 500 Ml (Sodium Chloride 0.9%) (01/16/20 16:00) Troponin I (01/16/20 16:37) Prednisone Tablet (Deltasone Tablet) (01/16/20 17:45) Medications Given in ED Current Medications Medications Dose Ordered Sig/Hector Route Start Time Stop Time Status Last Admin Dose Admin Acetaminophen/ Hydrocodone Bitart 1 ea ONCE ONCE PO 01/16/20 15:45 01/16/20 15:46 DC 01/16/20 15:40 1 EA Aspirin 324 mg ONCE ONCE PO 01/16/20 14:30 01/16/20 14:31 DC 01/16/20 14:34 324 MG Nitroglycerin 1 TAB Q 5 MIN X 3 NEEDED PRN SL 01/16/20 14:30 01/16/20 15:20 0.4 MG Vital Signs/I&O 01/16/20 14:12 Temp 36.5 Pulse 78 Resp 24 B/P (MAP) 133/77 (95) Pulse Ox 91 O2 Delivery Room Air Capillary Refill : Departure Communication (Admissions) EKG is without ST segment change. Patient states she cannot take prednisone or at least will not take prednisone because it makes her feel funny. She has agreed to try Decadron pill instead. Impression Primary Impression: Pleuritic chest pain Additional Impression: COPD exacerbation Disposition: HOME, SELF-CARE Condition: Improved Departure-Patient Inst. Decision time for Depature: 17:31 Referrals: [facility] [place] Primary Care Physician Patient Instructions: Exacerbation of COPD Add. Discharge Instructions: 1. You may need to use her oxygen more in the next few days to keep her saturation above 90%. You may need to wear during the day instead of just at night. Take the steroids and antibiotics as directed. Return to ER for any worsening. Scripts Dexamethasone (Decadron) 6 Mg Tablet 6 MG PO DAILY, #4 TAB Prov: DWIGHT TEE ACCOUNT LIAISON 01/16/20 Azithromycin (Azithromycin) 250 Mg Tablet 250 MG PO UD, #6 TAB TAKE 2 TABLETS ON DAY ONE THEN TAKE 1 TABLET DAILY FOR FOUR MORE DAYS Prov: DWIGHT TEE ACCOUNT LIAISON 01/16/20 DWIGHT TEE ACCOUNT LIAISON Jan 16, 2020 14:38
--- NOTE | 2020-01-16 14:55 | Diagnostic Imaging Report ---
INDICATION: cough COMPARISON: 09/22/2018 FINDINGS: Single frontal view of the chest demonstrates normal heart size and pulmonary vascularity. The lungs are well aerated and clear. No large pleural effusion or pneumothorax is seen. The visualized osseous structures show no acute abnormalities. IMPRESSION: 1. No acute cardiopulmonary process. Dictated by: Dictated on workstation # [id number]
[2020-01-16 15:00] LABS: BASOPHILS # (AUTO) 0.1 10^3/uL (0.0-0.1); BASOPHILS % (AUTO) 1 % (0-10); EOSINOPHILS # (AUTO) 0.2 10^3/uL (0.0-0.3); EOSINOPHILS % (AUTO) 2 % (0-10); HEMATOCRIT 50 % (35-52); HEMOGLOBIN 16.3 g/dL (11.5-16.0); LYMPHOCYTES # (AUTO) 2.7 10^3/uL (1.0-4.0); LYMPHOCYTES % (AUTO) 25 % (12-44); MEAN CORPUSCULAR HEMOGLOBIN 26 pg (25-34); MEAN CORPUSCULAR HGB CONC 33 g/dL (32-36); MEAN CORPUSCULAR VOLUME 80 fL (80-99); MEAN PLATELET VOLUME 10.4 fL (9.0-12.2); MONOCYTES # (AUTO) 0.8 10^3/uL (0.0-1.0); MONOCYTES % (AUTO) 8 % (0-12); NEUTROPHILS % (AUTO) 65 % (42-75); PLATELET COUNT 195 10^3/uL (130-400); WHITE BLOOD COUNT 10.8 10^3/uL (4.3-11.0)
[2020-01-16 15:10] LABS: CLARITY,URINE CLEAR; COLOR,URINE YELLOW; GLUCOSE, URINE (UA) TRACE (NEGATIVE); KETONES,URINE NEGATIVE (NEGATIVE); LEUKOCYTE ESTERASE ,URINE NEGATIVE (NEGATIVE); NITRITE,URINE NEGATIVE (NEGATIVE); PROTEIN,URINE NEGATIVE (NEGATIVE)
[2020-01-16 15:10] LABS: CHLORIDE 100 MMOL/L (98-107); POTASSIUM 3.7 MMOL/L (3.6-5.0); SODIUM 136 MMOL/L (135-145)
[2020-01-16 15:11] LABS: CALCIUM 8.9 MG/DL (8.5-10.1)
[2020-01-16 15:12] LABS: GLUCOSE 172 MG/DL (70-105); TOTAL PROTEIN 7.3 GM/DL (6.4-8.2)
[2020-01-16 15:14] LABS: BILIRUBIN,TOTAL 0.4 MG/DL (0.1-1.0); CARBON DIOXIDE 26 MMOL/L (21-32)
[2020-01-16 15:16] LABS: ALKALINE PHOSPHATASE 85 U/L (40-136); CREATININE SERUM 0.79 MG/DL (0.60-1.30); GFR ESTIMATED > 60
[2020-01-16 15:17] LABS: BUN/CREATININE RATIO 14
[2020-01-16 15:19] LABS: ALANINE AMINOTRANSFERASE 14 U/L (0-55); MAGNESIUM 2.2 MG/DL (1.6-2.4)
[2020-01-16 15:33] LABS: BACTERIA,URINE TRACE /HPF; BILIRUBIN,URINE 1+ (NEGATIVE)
[2020-01-16] MEDS ORDERED: HYDROcodone/APAP 10 MG/325 MG (LORTAB) TAB PO ONE (15:45)
[2020-01-16] MEDS ORDERED: NS IV 500 ML 500 ML IV SCH (16:00)
[2020-01-16] MEDS ORDERED: PRD20T PO (17:32)
[2020-01-16] MEDS ORDERED: AZIT250T12 PO (17:32)
[2020-01-16] MEDS ORDERED: DEXA6TAB6 PO (17:38)
[2020-01-16] MEDS ORDERED: dexAMETHasone 6 MG TAB (DECADRON) PO SCH (17:45)
[2020-01-16] MEDS ORDERED: predniSONE 20 MG TAB PO ONE (17:45)
== END 2020-01-16 17:49 | disposition home or self-care (01) ==
LOC: EDUNIT# 14:11 → ER 14:12
DX: R07.81 Pleurodynia (principal); J44.9 Chronic obstructive pulmonary disease, unspecified; I25.2 Old myocardial infarction; E66.9 Obesity, unspecified; K21.9 Gastro-esophageal reflux disease without esophagitis; E11.9 Type 2 diabetes mellitus without complications; F41.9 Anxiety disorder, unspecified; F32.9 Major depressive disorder, single episode, unspecified; G89.29 Other chronic pain; M54.9 Dorsalgia, unspecified; I10 Essential (primary) hypertension; F17.210 Nicotine dependence, cigarettes, uncomplicated; Z68.30 Body mass index [BMI] 30.0-30.9, adult; Z82.49 Family history of ischemic heart disease and other diseases of the circulatory system; Z83.3 Family history of diabetes mellitus; Z80.1 Family history of malignant neoplasm of trachea, bronchus and lung; Z95.5 Presence of coronary angioplasty implant and graft; Z20.828 Contact with and (suspected) exposure to other viral communicable diseases; Z88.2 Allergy status to sulfonamides; Z88.8 Allergy status to other drugs, medicaments and biological substances; Z79.52 Long term (current) use of systemic steroids; Z79.84 Long term (current) use of oral hypoglycemic drugs; Z79.891 Long term (current) use of opiate analgesic; Z79.82 Long term (current) use of aspirin
CPT/HCPCS: 71045; 80053; 81000; 83735; 83880; 84484; 85025; 85379; 87804; U0002; 36415; 87635; 93005

== ENCOUNTER 2020-04-22 13:36 | Emergency (ER) | payer MEDICAID ==
[~2020-04-22] VITALS: Ht 165 cm; Wt 85.2 kg
[~2020-04-22 13:36] MED LIST changes: +AZIT250T12 PO; +DEXA6TAB6 PO; -FOLI1TAB24 PO; +FOLI1TAB33 PO
[2020-04-22 13:50] VITALS: BP 155/89
--- NOTE | 2020-04-22 14:25 | ED Headache ---
General Chief Complaint: Head/Cervical Problems Stated Complaint: MIGRAINE Nursing Triage Note: Pt c/o migraine and stating ears hurt Nursing Sepsis Screen: No Definite Risk Source: patient Exam Limitations: no limitations History of Present Illness Date Seen by Provider: Apr 22, 2020 Time Seen by Provider: 14:24 Initial Comments To ER by private vehicle with reports of a headache since yesterday associated with photophobia nausea vomiting. History of migraines and this is similar. However, it will not go away. Timing/Duration: 24 hours Severity/Quality: moderate Location: frontal Prior Headaches/Recent Trauma: no recent headache/trauma Associated Symptoms: denies symptoms Allergies and Home Medications Allergies Coded Allergies: Sulfa (Sulfonamide Antibiotics) (Unverified Allergy, Mild, RASH, 04/18/18) adhesive tape (Verified Allergy, Mild, HIVES, 04/18/18) montelukast (Verified Allergy, Mild, DIZZY AND DROWSY, CONFUSION, 04/18/18) Home Medications Albuterol Sulfate 2.5 Mg/0.5 Ml Vial.neb, 2.5 MG IH QID PRN for SHORTNESS OF BREATH, (Reported) Albuterol Sulfate 6.7 Gm Hfa.aer.ad, 2 PUFF INH Q6H PRN for SHORTNESS OF BREATH, (Reported) Aspirin 81 Mg Tablet.dr, 81 MG PO DAILY, (Reported) Atorvastatin Calcium 20 Mg Tablet, 20 MG PO HS Prescribed by: ARVIND CASTELLANOS on 08/24/18 0742 Azithromycin 250 Mg Tablet, 250 MG PO UD TAKE 2 TABLETS ON DAY ONE THEN TAKE 1 TABLET DAILY FOR FOUR MORE DAYS Prescribed by: DWIGHT TEE on 01/16/20 1732 Baclofen 10 Mg Tablet, 10 MG PO TID, (Reported) Beclomethasone Dipropionate 25 Gm [place], 2 SPRAYS NS DAILY, (Reported) Budesonide/Formoterol Fumarate 10.2 Gm Hfa.aer.ad, 2 PUFF IH BID, (Reported) LAST FILLED 10-23-17 Butalb/Acetaminophen/Caffeine 1 Each Tablet, 1 TAB PO QID PRN for MIGRAINE, (Reported) Cetirizine HCl 10 Mg Tablet, 10 MG PO DAILY, (Reported) Clopidogrel Bisulfate 75 Mg Tablet, 75 MG PO DAILY Prescribed by: ARVIND CASTELLANOS on 08/24/18 0742 Dexamethasone 6 Mg Tablet, 6 MG PO DAILY Prescribed by: DWIGHT TEE on 01/16/20 1738 Fish Oil/Dha/Epa 1 Each Capsule, 1,200 MG PO DAILY, (Reported) Guaifenesin 600 Mg Tab.er.12h, 600 MG PO BID PRN for CONGESTION, (Reported) Hydrocodone Bit/Acetaminophen 1 Each Tablet, 1 TAB PO Q6H PRN for PAIN-MODERATE, (Reported) Hydroxyzine Pamoate 50 Mg Capsule, 50 MG PO TID PRN for ANXIETY, (Reported) Liraglutide 0.6 Mg/0.1 Ml Pen.injctr, 1.8 MG SQ 1200, (Reported) LAST FILLED 05-24-18 30 DAY SUPPLY Lisinopril 5 Mg Tablet, 5 MG PO DAILY, (Reported) Metformin HCl 1,000 Mg Tablet, 1,000 MG PO BID hold metformin for 48 hours Prescribed by: ARVIND CASTELLANOS on 08/24/18 0742 Pantoprazole Sodium 40 Mg Tablet.dr, 40 MG PO DAILY, (Reported) Paroxetine HCl 20 Mg Tablet, 20 MG PO DAILY, (Reported) Pregabalin 150 Mg Capsule, 150 MG PO TID, (Reported) Sucralfate 1 Gm Tablet, 1 GM PO BID, (Reported) Trazodone HCl 50 Mg Tablet, 50 MG PO HS, (Reported) Patient Home Medication List Home Medication List Reviewed: Yes Review of Systems Review of Systems Constitutional: see HPI Eyes: No Symptoms Reported Ears, Nose, Mouth, Throat: no symptoms reported Respiratory: no symptoms reported Cardiovascular: no symptoms reported Genitourinary: no symptoms reported Musculoskeletal: no symptoms reported Skin: no symptoms reported Psychiatric/Neurological: No Symptoms Reported, Headache Past Wzyfhey-Ldewwi-Tjfilc Hx Patient Social History Alcohol Use: Denies Use Type Used: Cigarettes Recent Infectious Disease Expo: No Recent Hopitalizations: No Immunizations Up To Date Tetanus Booster (TDap): Unknown PED Vaccines UTD: No Date of Pneumonia Vaccine: Dec 23, 2016 Date of Influenza Vaccine: Dec 25, 2017 Seasonal Allergies Seasonal Allergies: Yes Past Medical History Surgeries: Yes (INGUINAL HERNIA, LEFT WRIST, L KNEE SCOPE) Coronary Stent, Gallbladder, Hysterectomy, Tonsillectomy Respiratory: Yes (O2 2L [place] AT NIGHT) COPD Currently Using CPAP: No Currently Using BIPAP: No Cardiac: Yes (STENT x1 2010) Coronary Artery Disease, Heart Attack, Hypertension Neurological: Yes (STROKE AT 29YRS OLD-NO RESIDUAL) Parkinson's Disease, Stroke 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 Sexually Transmitted Disease: No HIV/AIDS: No Genitourinary: No Gastrointestinal: Yes Gastroesophageal Reflux, Ulcer Musculoskeletal: Yes Arthritis, Rheumatoid Arthritis, Chronic Back Pain Endocrine: Yes Diabetes, Non-Insulin dep HEENT: Yes (GLASSES) Loss of Vision: Bilateral Hearing Impairment: Denies Cancer: No Psychosocial: Yes Sleep Difficulties, Anxiety, Depression Integumentary: No Blood Disorders: No Adverse Reaction/Blood Tranf: No (N/A) Family Medical History Cardiovascular disease 19 FATHER, Onset:Unknown Diabetes mellitus 19 FATHER, Onset:Unknown FH: CABG (coronary artery bypass surgery) 19 FATHER, Onset:Unknown FH: lung cancer 19 MOTHER, Onset:Unknown Myocardial infarction 19 FATHER, Onset:Unknown No Pertinent Family Hx Physical Exam Vital Signs Vital Signs - First Documented 04/22/20 13:50 Temp 36.5 Pulse 79 Resp 18 B/P (MAP) 155/89 (111) O2 Delivery Room Air Capillary Refill : Less Than 3 Seconds Height, Weight, BMI Height: 5'4.00" Weight: 180lbs. 9.0oz. 81.745408co; 31.00 BMI Method:Stated General Appearance: WD/WN, no apparent distress HEENT: PERRL/EOMI, normal ENT inspection Cardiovascular: regular rate, rhythm, no murmur Respiratory: lungs clear, normal breath sounds, no respiratory distress, no accessory muscle use Gastrointestinal: normal bowel sounds, non tender Crainal Nerves: normal hearing, normal speech, PERRL Motor/Sensory: no motor deficit, no sensory deficit Progress/Results/Core Measures Results/Orders My Orders Orders - DWIGHT TEE APRN Ketorolac Injection (Toradol Injection) (04/22/20 14:30) Prochlorperazine Injection (Compazine In (04/22/20 14:30) Diphenhydramine Injection (Benadryl Inje (04/22/20 14:30) Medications Given in ED Current Medications Medications Dose Ordered Sig/Hector Route Start Time Stop Time Status Last Admin Dose Admin Diphenhydramine HCl 25 mg ONCE ONCE IM 04/22/20 14:30 04/22/20 14:31 DC 04/22/20 14:34 25 MG Ketorolac Tromethamine 60 mg ONCE ONCE IM 04/22/20 14:30 2/3/21 14:31 DC 04/22/20 14:36 60 MG Prochlorperazine Edisylate 10 mg ONCE ONCE IM 04/22/20 14:30 04/22/20 14:31 DC 04/22/20 14:36 10 MG Vital Signs/I&O 04/22/20 13:50 Temp 36.5 Pulse 79 Resp 18 B/P (MAP) 155/89 (111) O2 Delivery Room Air Blood Pressure Mean: 111 Departure Impression Primary Impression: Headache Disposition: ADMITTED INPATIENT Condition: Stable Departure-Patient Inst. Decision time for Depature: 14:40 Referrals: [facility] (PCP/Family) Primary Care Physician Patient Instructions: Headache, Adult (DC) DWIGHT TEE APRN Apr 22, 2020 14:25
[2020-04-22] MEDS ORDERED: KETOROLAC 60 MG/2 ML VIAL IM ONE (14:30)
[2020-04-22] MEDS ORDERED: diphenhydrAMINE 50 MG/ML INJ (BENADRYL) IM ONE (14:30)
[2020-04-22] MEDS ORDERED: PROCHLORPERAZINE 10 MG/2ML INJ (COMPAZINE) IM ONE (14:30)
== END 2020-04-22 14:42 | disposition home or self-care (01) ==
LOC: EDUNIT# 13:36 → ER 13:39
DX: R51.9 Headache, unspecified (principal); R11.2 Nausea with vomiting, unspecified; H53.149 Visual discomfort, unspecified; I10 Essential (primary) hypertension; I25.10 Atherosclerotic heart disease of native coronary artery without angina pectoris; I25.2 Old myocardial infarction; E11.9 Type 2 diabetes mellitus without complications; F41.9 Anxiety disorder, unspecified; F32.9 Major depressive disorder, single episode, unspecified; G20 Parkinson's disease; K21.9 Gastro-esophageal reflux disease without esophagitis; M06.9 Rheumatoid arthritis, unspecified; J44.9 Chronic obstructive pulmonary disease, unspecified; Z86.73 Personal history of transient ischemic attack (TIA), and cerebral infarction without residual deficits; Z79.82 Long term (current) use of aspirin; Z79.02 Long term (current) use of antithrombotics/antiplatelets; Z79.51 Long term (current) use of inhaled steroids; Z79.52 Long term (current) use of systemic steroids; Z79.84 Long term (current) use of oral hypoglycemic drugs; Z95.5 Presence of coronary angioplasty implant and graft; Z80.1 Family history of malignant neoplasm of trachea, bronchus and lung; Z88.2 Allergy status to sulfonamides; Z88.8 Allergy status to other drugs, medicaments and biological substances; Z91.048 Other nonmedicinal substance allergy status
CPT/HCPCS: 99284

== ENCOUNTER → 2020-07-07 | Outpatient (CLI) | payer MEDICAID ==
[~2020-07-07] MED LIST changes: +BUTA-235 PO; -BUTA1TAB9 PO; +CATHETER FLUSH 10 ML SYR IV PRN; -GEMF600T8 PO; +GEMF600T88 PO; +HOLD METFORMIN - RECEIVED CONTRAST 20 ML VIAL IV SCH; +IOHEXOL 350 MG/ML 100 ML (OMNIPAQUE 350) VIAL IV ONE; -LISI-552 PO; -LISI-556 PO; +LISI-729 PO; +LISI20TA26 PO; +NS 100 ML (IVPB) BAG IV ONE; -OXYC-471 PO; +OXYC1TAB11 PO
[2020-07-07 12:40] LABS: CREATININE SERUM 0.73 MG/DL (0.60-1.30); GFR ESTIMATED > 60
[2020-07-07 12:41] LABS: BUN/CREATININE RATIO 22
--- NOTE | 2020-07-07 13:52 | Diagnostic Imaging Report ---
EXAMINATION: CT Chest with intravenous contrast. TECHNIQUE: Multiple contiguous axial images were obtained through the chest after the uneventful administration of intravenous contrast. All CT scans use one or more of the following dose optimizing techniques: automated exposure control, MA and/or KvP adjustment based on a patient size and exam type, or iterative reconstruction. HISTORY: Abnormal chest imaging. COMPARISON: 01/07/2020. FINDINGS: There is no edema or pneumonia. No pleural effusion. No pneumothorax. Right lower lobe 5 mm nodule and left lower lobe 3 mm nodule are stable. No new nodules are seen. There is no axillary or supraclavicular lymphadenopathy. There is no mediastinal lymphadenopathy. Heart size is normal. There are severe coronary artery calcifications. No pericardial effusion. Aorta is normal in caliber. Limited views of the upper abdomen show changes of cholecystectomy. There are no suspicious osseous lesions. IMPRESSION: 1. Stable pulmonary nodules. No specific follow-up needed. Dictated by: Dictated on workstation # [id number]
== END ==
LOC: RAD 13:15
PROVIDERS: ATTEND Nurse Practitioner Family
DX: R91.8 Other nonspecific abnormal finding of lung field (principal)
CPT/HCPCS: 36415; 71260; 82565; 84520

== ENCOUNTER 2020-11-15 16:08 | Emergency (ER) | payer MEDICAID ==
[~2020-11-15] VITALS: Ht 152 cm; Wt 80.0 kg
[~2020-11-15 16:08] MED LIST changes: -CATHETER FLUSH 10 ML SYR IV PRN; -HOLD METFORMIN - RECEIVED CONTRAST 20 ML VIAL IV SCH; -IOHEXOL 350 MG/ML 100 ML (OMNIPAQUE 350) VIAL IV ONE; -NS 100 ML (IVPB) BAG IV ONE
[2020-11-15] MEDS ORDERED: ACETAMINOPHEN 325 MG TABLET PO STA (16:31)
--- NOTE | 2020-11-15 16:40 | ED Upper Extremity ---
General Chief Complaint: Upper Extremity Stated Complaint: R ARM PAIN, FELL Nursing Triage Note: Pt reports she fell after standing and becoming dizzy; states she fell on her right arm. Has pain but no obvious deformity. Pt has pain in her right forearm. History of Present Illness Date Seen by Provider: Nov 15, 2020 Time Seen by Provider: 16:20 Initial Comments 60-year-old female presents for right hand, wrist and elbow pain. She reports that she was at a park for her granddaughter's birthday when she became dizzy and fell in the parking lot. She has some superficial abrasions to her lower extremities. No active bleeding and no ecchymosis. Her main complaint is right wrist, hand and elbow pain. She states that she had no injury to her head. Her fall was witnessed by her son in law, she reports possible LOC briefly but she was alert and awake when she landed on the ground. She is on Plavix and has longstanding cardiac history, scheduled for Cardiac Cath with Dr. Best on 11/18/20. Onset: this afternoon Pain/Injury Location: right elbow, right wrist, right hand Method of Injury: fell Allergies and Home Medications Allergies Coded Allergies: Sulfa (Sulfonamide Antibiotics) (Unverified Allergy, Mild, RASH, 04/18/18) adhesive tape (Verified Allergy, Mild, HIVES, 04/18/18) montelukast (Verified Allergy, Mild, DIZZY AND DROWSY, CONFUSION, 04/18/18) Home Medications Albuterol Sulfate 2.5 Mg/0.5 Ml Vial.neb, 2.5 MG IH QID PRN for SHORTNESS OF ROMIE ATH, (Reported) Albuterol Sulfate 6.7 Gm Hfa.aer.ad, 2 PUFF INH Q6H PRN for SHORTNESS OF BREATH, (Reported) Aspirin 81 Mg Tablet.dr, 81 MG PO DAILY, (Reported) Atorvastatin Calcium 20 Mg Tablet, 20 MG PO HS Prescribed by: ARVIND BEST on 08/24/18 0742 Azithromycin 250 Mg Tablet, 250 MG PO UD TAKE 2 TABLETS ON DAY ONE THEN TAKE 1 TABLET DAILY FOR FOUR MORE DAYS Prescribed by: DWIGHT TEE on 01/16/20 1732 Baclofen 10 Mg Tablet, 10 MG PO TID, (Reported) Beclomethasone Dipropionate 25 Gm [place], 2 SPRAYS NS DAILY, (Reported) Budesonide/Formoterol Fumarate 10.2 Gm Hfa.aer.ad, 2 PUFF IH BID, (Reported) LAST FILLED 10-23-17 Butalb/Acetaminophen/Caffeine 1 Each Tablet, 1 TAB PO QID PRN for MIGRAINE, (Reported) Cetirizine HCl 10 Mg Tablet, 10 MG PO DAILY, (Reported) Clopidogrel Bisulfate 75 Mg Tablet, 75 MG PO DAILY Prescribed by: ARVIND BEST on 08/24/18 0742 Dexamethasone 6 Mg Tablet, 6 MG PO DAILY Prescribed by: DWIGHT TEE on 01/16/20 1738 Fish Oil/Dha/Epa 1 Each Capsule, 1,200 MG PO DAILY, (Reported) Guaifenesin 600 Mg Tab.er.12h, 600 MG PO BID PRN for CONGESTION, (Reported) Hydrocodone Bit/Acetaminophen 1 Each Tablet, 1 TAB PO Q6H PRN for PAIN-MODERATE, (Reported) Hydroxyzine Pamoate 50 Mg Capsule, 50 MG PO TID PRN for ANXIETY, (Reported) Liraglutide 0.6 Mg/0.1 Ml Pen.injctr, 1.8 MG SQ 1200, (Reported) LAST FILLED 05-24-18 30 DAY SUPPLY Lisinopril 5 Mg Tablet, 5 MG PO DAILY, (Reported) Metformin HCl 1,000 Mg Tablet, 1,000 MG PO BID hold metformin for 48 hours Prescribed by: ARVIND BEST on 08/24/18 0742 Pantoprazole Sodium 40 Mg Tablet.dr, 40 MG PO DAILY, (Reported) Paroxetine HCl 20 Mg Tablet, 20 MG PO DAILY, (Reported) Pregabalin 150 Mg Capsule, 150 MG PO TID, (Reported) Sucralfate 1 Gm Tablet, 1 GM PO BID, (Reported) Trazodone HCl 50 Mg Tablet, 50 MG PO HS, (Reported) Patient Home Medication List Home Medication List Reviewed: Yes Review of Systems Constitutional: no symptoms reported, see HPI Respiratory: no symptoms reported, see HPI Cardiovascular: see HPI; No chest pain, No palpitations; syncope Gastrointestinal: no symptoms reported, see HPI Musculoskeletal: see HPI, joint pain (right wrist, hand and elbow) All Other Systems Reviewed Negative Unless Noted: Yes Past Vtqmoim-Nkikyt-Xwviqy Hx Immunizations Up To Date Tetanus Booster (TDap): Unknown PED Vaccines UTD: No Seasonal Allergies Seasonal Allergies: Yes Past Medical History Surgeries: Yes (INGUINAL HERNIA, LEFT WRIST, L KNEE SCOPE) Coronary Stent, Gallbladder, Hysterectomy, Tonsillectomy Respiratory: Yes (O2 2L NC AT NIGHT) COPD Currently Using CPAP: No Currently Using BIPAP: No Cardiac: Yes (STENT x1 2010) Coronary Artery Disease, Heart Attack, Hypertension Neurological: Yes (STROKE AT 29YRS OLD-NO RESIDUAL) Parkinson's Disease, Stroke Reproductive Disorders: No 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 Sexually Transmitted Disease: No HIV/AIDS: No Genitourinary: No Gastrointestinal: Yes Gastroesophageal Reflux, Ulcer Musculoskeletal: Yes Arthritis, Rheumatoid Arthritis, Chronic Back Pain Endocrine: Yes Diabetes, Non-Insulin dep HEENT: Yes (GLASSES) Loss of Vision: Bilateral Hearing Impairment: Denies Cancer: No Psychosocial: Yes Sleep Difficulties, Anxiety, Depression Integumentary: No Blood Disorders: No Adverse Reaction/Blood Tranf: No (N/A) Family Medical History Reviewed Nursing Family Hx Cardiovascular disease 19 FATHER, Onset:Unknown Diabetes mellitus 19 FATHER, Onset:Unknown FH: CABG (coronary artery bypass surgery) 19 FATHER, Onset:Unknown FH: lung cancer 19 MOTHER, Onset:Unknown Myocardial infarction 19 FATHER, Onset:Unknown No Pertinent Family Hx Physical Exam Vital Signs Vital Signs - First Documented 11/15/20 16:20 Temp 37.5 Pulse 62 Resp 18 B/P (MAP) 163/70 (101) Pulse Ox 99 O2 Delivery Room Air Capillary Refill : Less Than 3 Seconds Height, Weight, BMI Height: 5'4.00" Weight: 180lbs. 9.0oz. [id number]; 34.00 BMI Method:Stated General Appearance: WD/WN, no apparent distress HEENT: PERRL/EOMI, normal ENT inspection, TMs normal, pharynx normal Neck: non-tender, full range of motion, supple, normal inspection Cardiovascular: normal peripheral pulses, regular rate, rhythm, no edema, no murmur Respiratory: chest non-tender, lungs clear, normal breath sounds Gastrointestinal: normal bowel sounds, non tender, soft Shoulder: normal inspection, non-tender, no evidence of injury, normal ROM Elbow/Forearm: Right, bone tenderness (ullna), limited ROM, soft tissue tenderness Wrist: Yes normal inspection; No asymmetry; Yes bone tenderness; No deformity; Yes limited ROM, Yes pain, Yes soft tissue tenderness; No swelling Hand: normal inspection, Right, bone tenderness, limited ROM, soft tissue tenderness Neurologic/Psychiatric: no motor/sensory deficits, alert, normal mood/affect, oriented x 3 Progress/Results/Core Measures Results/Orders My Orders Orders - CHAZ LANGE Elbow, Right, 3 Views (11/15/20 16:31) Wrist, Right, 3 Views Or More (11/15/20 16:31) Hand, Right, 3 Views (11/15/20 16:31) Acetaminophen Tablet/Caplet (Tylenol T (11/15/20 16:31) Dipht,Pertuss(Acell),Tet Adult (Boostrix (11/15/20 16:45) Medications Given in ED Current Medications Medications Dose Ordered Sig/Hector Route Start Time Stop Time Status Last Admin Dose Admin Diphtheria/ Tetanus/Acell Pertussis 0.5 ml ONCE ONCE IM 11/15/20 16:45 11/15/20 16:46 DC 11/15/20 16:41 0.5 ML Vital Signs/I&O 11/15/20 11/15/20 16:20 17:27 Temp 37.5 36.5 Pulse 62 64 Resp 18 18 B/P (MAP) 163/70 (101) 149/68 Pulse Ox 99 95 O2 Delivery Room Air Room Air Blood Pressure Mean: 101 Diagnostic Imaging Diagonstic Imaging: Xray Plain Films/CT/US/NM/MRI: elbow Comments NAME: ARIEL MACIEL [facility] REC#: [id number] PT STATUS: REG ER : 1960 PHYSICIAN: CHAZ LANGE ADMIT DATE: 11/15/20/ER Draft Date of Exam:11/15/20 ELBOW, RIGHT, 3 VIEWS HISTORY: Right elbow pain. COMPARISON: None. TECHNIQUE: Three views of the right elbow. FINDINGS: No acute fracture or dislocation is seen in the right elbow. Alignment appears normal and joint spaces are preserved. No joint effusion is seen. IMPRESSION: No acute osseous abnormality is seen in the right elbow. Dictated on workstation # [id number] Dict: 11/15/20 1650 Trans: 11/15/20 1700 [facility] [id number] Interpreted by: TAMRA WHITE MD Electronically signed by: Reviewed: Reviewed by Me Diagonstic Imaging: Xray Plain Films/CT/US/NM/MRI: hand Comments NAME: ARILE MACIEL [facility] REC#: [id number] PT STATUS: REG ER : 1960 PHYSICIAN: CHAZ LANGE ADMIT DATE: 11/15/20/ER Draft Date of Exam:11/15/20 HAND, RIGHT, 3 VIEWS HISTORY: Right hand pain, fall. TECHNIQUE: Three views of the right hand. COMPARISON: None. FINDINGS: No acute fracture or dislocation is seen in the right hand. Alignment is normal. Joint spaces are preserved. No cortical erosion is seen. IMPRESSION: No acute osseous abnormality is seen in the right hand. Dictated on workstation # [id number] Dict: 11/15/201650 Trans: 11/15/201700 [facility] [id number] Interpreted by: TAMRA WHITE MD Electronically signed by: Reviewed: Reviewed by Me Plain Films/CT/US/NM/MRI: other (wrist) Comments NAME: ARIEL MACIEL [facility] REC#: [id number] PT STATUS: REG ER : 1960 PHYSICIAN: CHAZ LANGE ADMIT DATE: 11/15/20/ER Draft Date of Exam:11/15/20 WRIST, RIGHT, 3 VIEWS OR MORE HISTORY: Fall, right wrist pain. TECHNIQUE: Three views of the right wrist. COMPARISON: None. FINDINGS: There is a questionable avulsion fracture at the medial aspect of the triquetrum near the 5th carpometacarpal joint. This is thought to represent artifact. No other fracture is seen in the right wrist. Alignment appears normal. There is no displacement of the pronator fat pad. IMPRESSION: Small linear density at the triquetrum near the 5th carpometacarpal joint. This is thought to represent artifact, seen on a single view; however, recommend correlation with point tenderness to exclude a small avulsion fracture. Dictated on workstation # [id number] Dict: 11/15/201650 Trans: 11/15/201701 [facility] [id number] Interpreted by: TAMRA WHITE MD Electronically signed by: Reviewed: Reviewed by Me Departure Impression Primary Impression: Fall Qualified Codes: W19.XXXA - Unspecified fall, initial encounter Additional Impression: Arm pain, right Disposition: 01 HOME, SELF-CARE Condition: Improved Departure-Patient Inst. Decision time for Depature: 17:15 Referrals: [facility] (PCP/Family) Primary Care Physician Patient Instructions: Contusion (DC) Add. Discharge Instructions: Ice and elevate right arm for pain and swelling. Use Vasiliy wrap as needed. You may alternate between Tylenol 650 mg and ibuprofen 600 mg every 4 hours as needed for pain. Follow-up with your primary care provider in 7 to 10 days if symptoms are not improving or worsen. Keep your scheduled appointment for your cardiac catheterization this week. Return to the emergency department for new, urgent healthcare needs. All discharge instructions reviewed with patient and/or family. Voiced understanding. Copy Copies To 1: ARVIND BEST MD, AMY ARNP Nov 15, 2020 16:40
[2020-11-15] MEDS ORDERED: TETANUS,DIPTH,PERTUSS P/F (BOOSTRIX) 0.5 ML VIAL IM ONE (16:45)
--- NOTE | 2020-11-15 17:01 | Diagnostic Imaging Report ---
HISTORY: Right elbow pain. COMPARISON: None. TECHNIQUE: Three views of the right elbow. FINDINGS: No acute fracture or dislocation is seen in the right elbow. Alignment appears normal and joint spaces are preserved. No joint effusion is seen. IMPRESSION: No acute osseous abnormality is seen in the right elbow. Dictated by: Dictated on workstation # [id number]
--- NOTE | 2020-11-15 17:01 | Diagnostic Imaging Report ---
HISTORY: Right hand pain, fall. TECHNIQUE: Three views of the right hand. COMPARISON: None. FINDINGS: No acute fracture or dislocation is seen in the right hand. Alignment is normal. Joint spaces are preserved. No cortical erosion is seen. IMPRESSION: No acute osseous abnormality is seen in the right hand. Dictated by: Dictated on workstation # [id number]
--- NOTE | 2020-11-15 17:02 | Diagnostic Imaging Report ---
HISTORY: Fall, right wrist pain. TECHNIQUE: Three views of the right wrist. COMPARISON: None. FINDINGS: There is a questionable avulsion fracture at the medial aspect of the triquetrum near the 5th carpometacarpal joint. This is thought to represent artifact. No other fracture is seen in the right wrist. Alignment appears normal. There is no displacement of the pronator fat pad. IMPRESSION: Small linear density at the triquetrum near the 5th carpometacarpal joint. This is thought to represent artifact, seen on a single view; however, recommend correlation with point tenderness to exclude a small avulsion fracture. Dictated by: Dictated on workstation # [id number]
[2020-11-15 17:27] VITALS: BP 149/68
== END 2020-11-15 17:28 | disposition home or self-care (01) ==
LOC: EDUNIT# 16:08 → ER 16:13
DX: S80.812A Abrasion, left lower leg, initial encounter (principal); S80.811A Abrasion, right lower leg, initial encounter; M79.601 Pain in right arm; J44.9 Chronic obstructive pulmonary disease, unspecified; I10 Essential (primary) hypertension; I25.2 Old myocardial infarction; G20 Parkinson's disease; I25.10 Atherosclerotic heart disease of native coronary artery without angina pectoris; K21.9 Gastro-esophageal reflux disease without esophagitis; G89.29 Other chronic pain; M54.9 Dorsalgia, unspecified; E11.9 Type 2 diabetes mellitus without complications; F41.9 Anxiety disorder, unspecified; F32.9 Major depressive disorder, single episode, unspecified; Z86.73 Personal history of transient ischemic attack (TIA), and cerebral infarction without residual deficits; Z23 Encounter for immunization; Z79.82 Long term (current) use of aspirin; Z79.01 Long term (current) use of anticoagulants; Z79.899 Other long term (current) drug therapy; Z79.891 Long term (current) use of opiate analgesic; Z79.84 Long term (current) use of oral hypoglycemic drugs; W18.30XA Fall on same level, unspecified, initial encounter
CPT/HCPCS: 73080; 73110; 73130; 90715

== ENCOUNTER 2020-11-18 08:00 | Day surgery (SDC) | payer MEDICAID ==
[2020-11-18] VITALS (10 sets, daily range): BP systolic 163–194; BP diastolic 79–98
[~2020-11-18] VITALS: Ht 152 cm; Wt 80.0 kg
[2020-11-18 07:19] LABS: HEMATOCRIT 53 % (35-52); HEMOGLOBIN 16.9 g/dL (11.5-16.0); MEAN CORPUSCULAR HEMOGLOBIN 25 pg (25-34); MEAN CORPUSCULAR HGB CONC 32 g/dL (32-36); MEAN CORPUSCULAR VOLUME 80 fL (80-99); MEAN PLATELET VOLUME 9.8 fL (9.0-12.2); PLATELET COUNT 258 10^3/uL (130-400); WHITE BLOOD COUNT 9.9 10^3/uL (4.3-11.0)
[2020-11-18 07:31] LABS: BILIRUBIN,URINE NEGATIVE (NEGATIVE); CLARITY,URINE CLEAR; COLOR,URINE YELLOW; GLUCOSE, URINE (UA) NEGATIVE (NEGATIVE); KETONES,URINE NEGATIVE (NEGATIVE); LEUKOCYTE ESTERASE ,URINE NEGATIVE (NEGATIVE); NITRITE,URINE NEGATIVE (NEGATIVE); PH,URINE 6.5 (5-9); PROTEIN,URINE NEGATIVE (NEGATIVE)
[2020-11-18 07:36] LABS: ALBUMIN 4.1 GM/DL (3.2-4.5); POTASSIUM 3.5 MMOL/L (3.6-5.0)
[2020-11-18 07:37] LABS: CALCIUM 9.7 MG/DL (8.5-10.1)
[2020-11-18 07:38] LABS: PROTHROMBIN TIME PATIENT 13.8 SEC (12.2-14.7); TOTAL PROTEIN 7.9 GM/DL (6.4-8.2)
[2020-11-18 07:40] LABS: BILIRUBIN,TOTAL 0.8 MG/DL (0.1-1.0)
[2020-11-18 07:42] LABS: BACTERIA,URINE TRACE /HPF; SQUAMOUS EPITHELIAL CELL,UR 0-2 /HPF; WBC,URINE RARE /HPF
[2020-11-18 07:42] LABS: CREATININE SERUM 0.67 MG/DL (0.60-1.30)
--- NOTE | 2020-11-18 07:46 | Diagnostic Imaging Report ---
Indication: Pre-heart catheterization Upright portable chest shows normal heart size and vascularity. The lungs are clear. There is no effusion or pneumothorax. There is no bony abnormality. IMPRESSION: No acute abnormality is seen with no change from 01/16/2020. Dictated by: Dictated on workstation # [id number]
[~2020-11-18 08:00] MED LIST changes: +HEParin (CATH LAB) 2,000 ML IV ONE; +LIDOCAINE 1% INJ 20 ML 20 ML VIAL ONE; +NS IV 1000 ML 1,000 ML IV SCH; +NS IV 1000 ML 1,000 ML ONE
[2020-11-18] MEDS ORDERED: CHOL200025 PO (08:06)
[2020-11-18] MEDS ORDERED: HYDR50CA3 PO (08:06)
[2020-11-18] MEDS ORDERED: PARO30TA3 PO (08:06)
[2020-11-18] MEDS ORDERED: TRZ50T PO (08:06)
[2020-11-18] MEDS ORDERED: NITR0.4T39 SL (08:06)
[2020-11-18] MEDS ORDERED: CLOP75TA28 PO (08:06)
[2020-11-18] MEDS ORDERED: FAMO20TA3 PO (08:06)
[2020-11-18] MEDS ORDERED: IBUP-1780 PO (08:06)
[2020-11-18] MEDS ORDERED: ASPI-1238 PO (08:06)
[2020-11-18] MEDS ORDERED: PANT40TA52 PO (08:06)
[2020-11-18] MEDS ORDERED: METH-732 PO (08:06)
[2020-11-18] MEDS ORDERED: SUCR1TAB PO (08:06)
[2020-11-18] MEDS ORDERED: CANA1TAB6 PO (08:06)
[2020-11-18] MEDS ORDERED: METO50TA15 PO (08:06)
[2020-11-18] MEDS ORDERED: ATOR40TA70 PO (08:06)
[2020-11-18] MEDS ORDERED: CETI10TA17 PO (08:06)
--- NOTE | 2020-11-18 08:18 | Conscious Sedation/ASA ---
Conscious Sedation Pre-Proced Time 08:18 ASA Score 3 For ASA 3 and 4: Consider anesthesia and medical clearance. Also, for patients with a history of failed moderate sedation consider anesthesia. Airway Lungs Heart ASA score ASA 1: a normal healthy patient ASA 2: a patient with a mild systemic disease (mid diabetes, controlled hypertension, obesity x ASA 3: a patient with a severe systemic disease that limits activity (angina, COPD, prior Myocardial infarction) ASA 4: a patient with an incapacitating disease that is a constant threat to life (CHF, renal failure) ASA 5: a moribund patient not expected to survive 24 hrs. (ruptured aneurysm) ASA 6: a declared brain- patient whose organs are being harvested. For emergent operations, add the letter E after the classification Mallampati Classification Grade 3 Sedation Plan Analgesia, Amnesia, Plan communicated to team members, Discussed options with patient/fam, Discussed risks with patient/fam The patient is an appropriate candidate to undergo the planned procedure, sedation, and anesthesia. The patient immediately re-assessed prior to indication. ARVIND CASTELLANOS MD Nov 18, 2020 08:18
--- NOTE | 2020-11-18 08:44 | Discharge Inst-Post CATH ---
Discharge Inst-CATH/EP Problems Reviewed?: Yes Post Cardiac Cath/EP D/C Inst Follow Up/Plan Appointment with Dr. Best in 4 weeks <b>CARDIAC CATH/EP PROCEDURE DISCHARGE INSTRUCTIONS</b> ACTIVITY * Go Home directly and rest. * Limit activity of the leg (or wrist if it was used) for 7 days including aerobics, swimming, jogging, bicycling, etc. * Restrict stair-climbing for 7 days if possible, if not, climb up with your non-cath leg, then bring together on the same step. * Avoid lifting, pushing, pulling or excessive movement of the affected extremity for 7 days. * Customary sexual activity may be resumed after 2 days-use caution not to use a position that strains or causes pain to the affected extremity. * No driving for 24 hours. * NO SMOKING. * Avoid straining for bowel movements for 7 days. * Gentle walking on level ground is allowed. * Returning to work will depend on the type of procedure and the results. Your doctor will discuss this with you. CALL YOUR DOCTOR FOR ANY OF THE FOLLOWING: *If bleeding from the puncture site occurs- Apply gentle pressure to site with clean cloth and call your doctor or EMS. * If a knot or lump forms under the skin, increases in size, or causes pain. * If bruising appears to be worsening or moving further down your leg instead of disappearing. * Temperature above 101 F. CARE OF YOUR GROIN INCISION; * Bruising or purple discoloration of the skin near the puncture site is common. * You may shower only, no bathtub bathing for 5 days. Be careful to avoid slipping as your leg may feel stiff. * If a closure device was used on your femoral artery, please see the attached guide regarding care of the device and your leg. * Leave dressing on FOR 24 hours. CARE OF YOUR WRIST INCISION; * Bruising or purple discoloration of the skin near the puncture site is common. * You may shower. * DO NOT submerge wrist. * Leave dressing on FOR 24 hours. ARVIND BEST MD Nov 18, 2020 08:44
[2020-11-18] MEDS ORDERED: NS IV 1000 ML 1,000 ML IV SCH (08:45)
[2020-11-18] MEDS ORDERED: PATIENT MAY USE OWN MEDS, ALL PO SCH (08:45)
--- NOTE | 2020-11-18 08:48 | Cardiac Cath Report ---
Cardiac Cath Report Physician (s)/Elastic Yarn Twister (s) Physician ARVIND CASTELLANOS MD Pre-Procedure Diagnosis Pre-Procedure Diagnosis: chest pain, coronary artery disease Post-Procedure Note Procedure Start Date: Nov 18, 2020 Name of Procedure: Left heart catheterization Findings/Procedure Note PROCEDURE NOTE: 60-year-old lady with a history of coronary artery disease, stent to the LAD and right coronary artery, has been having increasing chest pain, accelerating angina style. Decided to proceed with cardiac catheterization possible PTCA. After explaining the procedure to the patient, all pros and cons were explained, all questions were answered. The patient signed the consent and then she was placed on the cardiac catheterization laboratory. Groin was prepped SL fashion local anesthesia was used. Sheath placed in the right femoral artery. Charli right and left catheter were used to access the coronary system. Charli right was prolapsed to the left ventricular cavity, pressure was measured, pullback LV to aorta was done. No left ventriculogram was done At the end of the procedure the sheath was removed. Closure device was deployed FINDINGS: Hemodynamics LV 160/19, end-diastolic pressure of 19 Aorta 176/71 mean of 107 ANATOMY: Left Main is free of obstructive disease Left Anterior Descending has a patent stent proximally, proximal to the stent there is an area of 50 to 60% stenosis that has not changed compared to the previous study of 2019 Left Circumflex is moderate in size with no obstructive disease Right Coronary Artery has a patent stent proximally with mild disease distally LV Gram was not done, pressure was measured CONCLUSION: 1. Patent stent in the proximal LAD with an area proximal to the stent of 50 to 60% stenosis, nonobstructive disease, has not changed compared to the study of 2019 2. Patent stent in the proximal right coronary artery, mild disease distally nonobstructive disease 3. Mildly elevated left ventricular end-diastolic pressure DISCUSSION AND RECOMMENDATION: Medical therapy is recommended no intervention is warranted Anesthesia Type: Conscious Sedation Estimated blood loss (mL): 15 ml Contrast Amount: 22 ml Total Radiation Dose: 359 mGy Post-Procedure Diagnosis Post-operative diagnosis: Chest pain Coronary artery disease Hypertension Hyperlipidemia ARVIND CASTELLANOS MD Nov 18, 2020 08:48
[2020-11-18] MEDS ORDERED: ISOS30TA82 PO (08:49)
== END 2020-11-18 13:16 | disposition home or self-care (01) ==
LOC: CATH 08:00 → SDC 09:00 → CATH 13:16
PROVIDERS: ATTEND Internal Medicine Cardiovascular Disease
DX: R07.9 Chest pain, unspecified (principal); R55 Syncope and collapse; I25.10 Atherosclerotic heart disease of native coronary artery without angina pectoris; I10 Essential (primary) hypertension; J44.9 Chronic obstructive pulmonary disease, unspecified; R79.89 Other specified abnormal findings of blood chemistry; E66.9 Obesity, unspecified; E11.9 Type 2 diabetes mellitus without complications; I65.29 Occlusion and stenosis of unspecified carotid artery; E78.2 Mixed hyperlipidemia; F17.210 Nicotine dependence, cigarettes, uncomplicated; Z79.899 Other long term (current) drug therapy; Z79.82 Long term (current) use of aspirin; Z79.02 Long term (current) use of antithrombotics/antiplatelets; Z79.1 Long term (current) use of non-steroidal anti-inflammatories (NSAID); Z79.51 Long term (current) use of inhaled steroids; Z68.30 Body mass index [BMI] 30.0-30.9, adult; Z99.81 Dependence on supplemental oxygen; Z79.84 Long term (current) use of oral hypoglycemic drugs
CPT/HCPCS: 71045; 80053; 80061; 81000; 85027; 85610; 85730; 87081; 93458; C1760; C1894; 36415

== ENCOUNTER 2021-10-19 05:34 | Outpatient (CLI) | payer MEDICAID ==
[~2021-10-19] VITALS: Ht 165.1 cm; Wt 80.0 kg
[~2021-10-19 05:34] MED LIST changes: +ATOR40TA70 PO; +CANA1TAB6 PO; -CITA40TA11 PO; +CITA40TA13 PO; +FAMO20TA3 PO; -GUAI600T28 PO; +GUAI600T99 PO; -HEParin (CATH LAB) 2,000 ML IV ONE; +IBUP-1780 PO; +ISOS30TA82 PO; -LIDOCAINE 1% INJ 20 ML 20 ML VIAL ONE; -LISI-729 PO; +LISI5TAB20 PO; +METH-732 PO; +METO50TA15 PO; -MMT17NA NS; +MOME17SP4 NS; -NS IV 1000 ML 1,000 ML IV SCH; -NS IV 1000 ML 1,000 ML ONE; +PARO30TA3 PO; +SUCR1TAB PO
[2021-10-19] MEDS ORDERED: FLUT9.9S NS (10:19)
[2021-10-19] MEDS ORDERED: LOSA1TAB23 PO (10:19)
[2021-10-19] MEDS ORDERED: SEMA2PEN SQ (10:19)
== END 2021-10-19 12:14 | disposition home or self-care (01) ==
LOC: PREOP 05:34
PROVIDERS: ATTEND Specialist
DX: Z01.818 Encounter for other preprocedural examination (principal)

== ENCOUNTER 2021-10-22 08:59 | Day surgery (SDC) | payer MEDICAID ==
[~2021-10-22] VITALS: Ht 165.1 cm; Wt 80.0 kg
[~2021-10-22 08:59] MED LIST changes: +FLUT9.9S NS; +LOSA1TAB23 PO; +SEMA2PEN SQ
[2021-10-22] MEDS ORDERED: POVIDONE (BETADINE) OPHTH SOLN 5% 30 ML OP ONE (09:15)
[2021-10-22] MEDS ORDERED: TIMOLOL MALEATE 0.5% 5 ML (TIMOPTIC) BTL OU PRN (09:15)
[2021-10-22] MEDS ORDERED: MOXIFLOXACIN OPHTH SOLN 5 MG/ML 0.3 ML SYRINGE OP ONE (09:15)
[2021-10-22] MEDS: TETRACAINE 0.5% OPHTH SOLN 4 ML BTL (SINGLE DOSE ONLY) OU PRN ×3 (09:20→09:35)
[2021-10-22] MEDS: PHENYLEPHRINE 10% OPHTH (NEO-SYN) 5 ML BTL OU SCH ×3 (09:24→09:35)
[2021-10-22] MEDS: TROPICAMIDE 1% OPH SOLN (MYDRIACYL) 15 ML BTL OP SCH ×3 (09:25→09:35)
[2021-10-22 09:26] VITALS: BP 106/79
[2021-10-22 09:33] VITALS: BP 106/79
--- NOTE | 2021-10-22 10:06 | Ophthalmologist Pre-Op Note ---
Pre-Operative Progress Note H&P Reviewed The H&P was reviewed, patient examined and no changes noted. Date H&P Reviewed: Oct 22, 2021 Time H&P Reviewed: 10:06 Pre-Op Dx Cataract, Right Eye MARYCARMEN MOHAMUD MD Oct 22, 2021 10:06
[2021-10-22] MEDS ORDERED: MIDAZOLAM 2 MG/2 ML (VERSED) VIAL ONE (10:11)
--- NOTE | 2021-10-22 10:27 | Ophthalmology Operative Report ---
Cataract removal/placement IOL PREOPERATIVE DIAGNOSIS: Cataract Right Eye POSTOPERATIVE DIAGNOSIS: Cataract Right Eye PROCEDURE: Cataract removal and placement of posterior chamber implant, right eye SURGEON: Kael Mohamud ANESTHESIA: Topical with sedation COMPLICATIONS: None ESTIMATED BLOOD LOSS: Minimal DESCRIPTION OF PROCEDURE: After proper informed consent was obtained, the patient, a 61 female, was taken to the Operating Room and the right eye was anesthetized with tetracaine. The right eye was then prepped and draped in the usual manner. A wire lid speculum was placed. A paracentesis was made at the left hand position. Preservative free lidocaine was injected into the anterior chamber followed by viscoelastic. A clear corneal incision was made in the temporal position. A capsulorrhexis was preformed and the central nuclear and cortical material were removed. The posterior capsule was polished and Osman 20.0 AU00T0 IOL was placed into the capsular bag. The residual viscoelastic was aspirated and balanced saline solution was injected into the anterior chamber. Moxifloxacin was injected into the anterior chamber. The wound was checked and found to be water tight. The patient tolerated the procedure well without complications. KAEL MOHAMUD MD Oct 22, 2021 10:27
[2021-10-22 10:37] VITALS: BP 117/69
--- NOTE | 2021-10-22 17:32 | Anesthesia-General Post-Op ---
MAC Patient Condition Mental Status/LOC: Same as Preop Cardiovascular: Satisfactory Nausea/Vomiting: Absent Respiratory: Satisfactory Pain: Controlled Complications: Absent Post Op Complications Complications None Follow Up Care/Instructions Patient Instructions None needed. Anesthesiology Discharge Order Discharge Order Patient is doing well, no complaints, stable vital signs, no apparent adverse anesthesia problems. No complications reported per nursing. MAURISIO SPANN CRNA Oct 22, 2021 17:32
== END 2021-10-22 10:45 | disposition home or self-care (01) ==
LOC: SDC 08:59
PROVIDERS: ATTEND Specialist
DX: H25.9 Unspecified age-related cataract (principal); F17.200 Nicotine dependence, unspecified, uncomplicated; Z79.82 Long term (current) use of aspirin; Z88.2 Allergy status to sulfonamides
CPT/HCPCS: 66984; 82947; V2632

== ENCOUNTER 2021-11-02 05:31 | Outpatient (CLI) | payer MEDICAID | END 2021-11-02 11:39 | LOC: PREOP 05:31 | PROVIDERS: ATTEND Specialist | DX: Z01.818 Encounter for other preprocedural examination (principal); H26.9 Unspecified cataract ==

== ENCOUNTER 2021-11-05 08:59 | Day surgery (SDC) | payer MEDICAID ==
[~2021-11-05] VITALS: Ht 165.1 cm; Wt 80.0 kg
[2021-11-05] MEDS: TETRACAINE 0.5% OPHTH SOLN 4 ML BTL (SINGLE DOSE ONLY) OU PRN ×4 (09:04→09:22)
[2021-11-05] MEDS ORDERED: MIDAZOLAM 2 MG/2 ML (VERSED) VIAL ONE (09:08)
[2021-11-05] MEDS: PHENYLEPHRINE 10% OPHTH (NEO-SYN) 5 ML BTL OU SCH ×3 (09:10→09:22)
[2021-11-05] MEDS: TROPICAMIDE 1% OPH SOLN (MYDRIACYL) 15 ML BTL OP SCH ×3 (09:10→09:22)
[2021-11-05] MEDS ORDERED: POVIDONE (BETADINE) OPHTH SOLN 5% 30 ML OP ONE (09:15)
[2021-11-05] MEDS ORDERED: MOXIFLOXACIN OPHTH SOLN 5 MG/ML 0.3 ML SYRINGE OP ONE (09:15)
[2021-11-05] MEDS ORDERED: TIMOLOL MALEATE 0.5% 5 ML (TIMOPTIC) BTL OU PRN (09:15)
[2021-11-05 09:18] VITALS: BP 114/70
--- NOTE | 2021-11-05 09:18 | Ophthalmologist Pre-Op Note ---
Pre-Operative Progress Note H&P Reviewed The H&P was reviewed, patient examined and no changes noted. Date H&P Reviewed: Nov 05, 2021 Time H&P Reviewed: 09:18 Pre-Op Dx Cataract, Left Eye MARYCARMEN MOHAMUD MD Nov 05, 2021 09:18
--- NOTE | 2021-11-05 09:32 | Ophthalmologist Pre-Op Note ---
Pre-Operative Progress Note H&P Reviewed The H&P was reviewed, patient examined and no changes noted. Date H&P Reviewed: Nov 05, 2021 Time H&P Reviewed: 09:22 Pre-Op Dx Secondary Cataract, Bilateral Eyes MARYCARMEN MOHAMUD MD Nov 05, 2021 09:32
--- NOTE | 2021-11-05 09:51 | Ophthalmology Operative Report ---
Cataract removal/placement IOL PREOPERATIVE DIAGNOSIS: Cataract Left Eye POSTOPERATIVE DIAGNOSIS: Cataract Left Eye PROCEDURE: Cataract removal and placement of posterior chamber implant, left eye SURGEON: Kael Mohamud ANESTHESIA: Topical with sedation COMPLICATIONS: None ESTIMATED BLOOD LOSS: Minimal DESCRIPTION OF PROCEDURE: After proper informed consent was obtained, the patient, a 61 female, was taken to the Operating Room and the left eye was anesthetized with tetracaine. The left eye was then prepped and draped in the usual manner. A wire lid speculum was placed. A paracentesis was made at the left hand position. Preservative free lidocaine was injected into the anterior chamber followed by viscoelastic. A clear corneal incision was made in the temporal position. A capsulorrhexis was preformed and the central nuclear and cortical material were removed. The posterior capsule was polished and an Osman 20.5 AU00T0 was placed into the capsular bag. The residual viscoelastic was aspirated and balanced saline solution was injected into the anterior chamber. Moxifloxacin was injected into the anterior chamber. The wound was checked and found to be water tight. The patient tolerated the procedure well without complications. KAEL MOHAMUD MD Nov 05, 2021 09:51
[2021-11-05 09:55] VITALS: BP 123/75
--- NOTE | 2021-11-05 14:47 | Anesthesia-General Post-Op ---
MAC Patient Condition Mental Status/LOC: Same as Preop Cardiovascular: Satisfactory Nausea/Vomiting: Absent Respiratory: Satisfactory Pain: Controlled Complications: Absent Post Op Complications Complications None Follow Up Care/Instructions Patient Instructions None needed. Anesthesiology Discharge Order Discharge Order Patient is doing well, no complaints, stable vital signs, no apparent adverse anesthesia problems. No complications reported per nursing. ARIAN MCCLENDON CRNA Nov 05, 2021 14:47
== END 2021-11-05 09:56 ==
LOC: SDC 08:59
PROVIDERS: ATTEND Specialist
DX: H26.9 Unspecified cataract (principal); F17.210 Nicotine dependence, cigarettes, uncomplicated
CPT/HCPCS: 66984; 82947; V2632

== ENCOUNTER → 2022-02-17 | Outpatient (CLI) | payer MEDICAID ==
[~2022-02-17] MED LIST changes: +ALBU6.7H13 INH; -ALBU6.7H8 INH
--- NOTE | 2022-02-17 16:16 | Diagnostic Imaging Report ---
PROCEDURE: MRI right joint upper extremity without contrast. TECHNIQUE: Multiplanar, multisequence non contrast-enhanced MRI of the right upper extremity was accomplished. INDICATION: Wrist pain with swelling and palpable abnormality present. Marker placed at the site of concern. EXAMINATION: Right wrist MRI without contrast 02/17/2022. FINDINGS: There is a marker overlying the ulnar aspect of the wrist at the site of concern. Underlying the marker is a heterogeneous predominantly T2 hyperintense lesion within the subcutaneous soft tissues abutting the extensor carpi ulnaris tendon. It contains internal hypointensity on T2-weighted imaging and is fairly hypointense on T1-weighted imaging. This measures 1.1 x 1.1 x 0.6 cm in size with surrounding edema. There is T2 hyperintensity which extends deep to the lesion surrounding the extensor carpi ulnaris tendon with the tendon somewhat prominent and heterogeneous in nature suggesting tenosynovitis. A small partial intrasubstance or longitudinal split tear is suspected without discontinuity. The remaining visualized tendons intact with the carpal tunnel unremarkable in appearance. Median nerve unremarkable. Degenerative signal noted along the ulnar attachment of the triangular fibrocartilage with no discrete tear appreciated. The scapholunate and lunotriquetral ligaments grossly intact on this noncontrast examination. There is no acute osseous abnormality. Minimal scattered subchondral cysts throughout the carpals consistent with degenerative disease. IMPRESSION: 1. Heterogeneous cystic lesion underlying the marker and inseparable from the extensor carpi ulnaris tendon. Although a benign process such as a ganglion is a possibility and inflammatory or infectious process should be clinically excluded. Given this is inseparable from the extensor carpi ulnaris tendon, a tendon sheath tumor as well as other lesions not excluded at this time and postcontrast imaging is recommended for further characterization. 2. Findings of tendinosis with intrasubstance of longitudinal split tear of the extensor carpi ulnaris tendon suspected without complete discontinuity. Surrounding edema likely reactive. 3. Intrinsic ligaments and triangular fibrocartilage grossly intact with degenerative signal in the triangular fibrocartilage noted. Dictated by: Dictated on workstation # [id number]
== END ==
LOC: RAD 14:45
PROVIDERS: ATTEND Nurse Practitioner
DX: M19.031 Primary osteoarthritis, right wrist (principal)
CPT/HCPCS: 73221

== ENCOUNTER → 2022-04-06 | Outpatient (CLI) | payer MEDICAID ==
[~2022-04-06] VITALS: Ht 165.7 cm; Wt 76.8 kg
[~2022-04-06] MED LIST changes: +FLUT1BLS3 IH; +GUAI-912 PO; -GUAI600T99 PO
== END | disposition home or self-care (01) ==
LOC: PREOP 05:30
PROVIDERS: ATTEND Orthopaedic Surgery
DX: Z01.818 Encounter for other preprocedural examination (principal)

== ENCOUNTER 2022-04-13 06:58 | Day surgery (SDC) | payer MEDICAID ==
--- NOTE | 2022-04-05 07:17 | HISTORY AND PHYSICAL ---
DATE OF SERVICE: 04/13/2022 ADMISSION HISTORY AND PHYSICAL This will be for outpatient surgery on 04/13/2022 for right wrist cyst excision and tendon repair. HISTORY OF PRESENT ILLNESS: The patient is a 61-year-old female with a 2-month history of increasing right wrist pain. She is right hand dominant. She reports pain and swelling. She reports an injury initially occurred when she lost her balance and fell against a door facing. She reports that she landed directly on the ulnar aspect of her right wrist. Since that time, she has had swelling in the area of the impact. She underwent an MRI, which showed a cyst formation as well as a possible tear in the extensor carpi ulnaris. Due to functional impairment and failure to improve with conservative measures, the patient elected to proceed with surgical intervention. REVIEW OF SYSTEMS: No chest pain, no shortness of breath. No dysuria. PAST MEDICAL HISTORY: COPD, coronary artery disease, diabetes mellitus, hypertension, rheumatoid arthritis, migraines, fibromyalgia. PAST SURGICAL HISTORY: Cardiac catheterization, cholecystectomy, hysterectomy, tonsillectomy, knee arthroscopy and left wrist ____. FAMILY HISTORY: Asthma, hyperlipidemia, diabetes, ischemic heart disease, lung disease. PRIMARY CARE PROVIDER: [facility]. MEDICATIONS: 1. Ventolin. 2. Cetirizine. 3. Aleve. 4. Citalopram. 5. Fish oil. 6. Albuterol. 7. Symbicort. 8. Aspirin. 9. Metoprolol. 10. Protonix. 11. Methotrexate. 12. Lisinopril. 13. Metformin. 14. Baclofen. 15. Victoza. 16. Folic acid. 17. Lyrica. 18. Hydroxychloroquine. 19. Ondansetron. 20. Sucralfate. 21. Meclizine. 22. Trazodone. 23. Hydroxyzine. 24. Atorvastatin. ALLERGIES: Sulfa and Singulair. SOCIAL HISTORY: The patient smokes 3/4 of pack a day. Denies alcohol use. PHYSICAL EXAMINATION: GENERAL: The patient is well-developed, well-nourished, in no acute distress. HEENT: Normocephalic, atraumatic. Pupils are equal, round, reactive to light. Oropharynx is clear. NECK: Supple. No lymphadenopathy. LUNGS: Clear to auscultation bilaterally. HEART: Regular rate and rhythm. ABDOMEN: Soft, nontender, nondistended. EXTREMITIES: The right wrist demonstrates a 1 x 2 cm cystic lesion along the ulnar aspect of the mid carpal region. She is tender to palpation. There is no erythema or warmth. It does transilluminate. It does not move in conjunction with the extensor tendons, but she does have some pain with resisted wrist and finger extension. IMPRESSION: Left wrist ganglion cyst with possible extensor carpi ulnaris tendon tear. PLAN: Left wrist ganglion cyst excision and possible extensor tendon repair. The risks, benefits, options, ramification and recovery were discussed at length with the patient. She understands and wishes to proceed. This will be for outpatient surgery on 04/13/2022. Job ID: [id number] DocumentID: [id number] Dictated Date: 03/28/2022 09:53:40 Tongue And Quarter Stitcher Date: 03/28/2022 13:31:00 Dictated By: CARLOS HORTON MD
[~2022-04-13] VITALS: Ht 165.7 cm; Wt 76.8 kg
[2022-04-13] VITALS (11 sets, daily range): BP systolic 103–138; BP diastolic 65–95
[2022-04-13] MEDS ORDERED: ceFAZolin INJECTION 2,000 MG in NS (IVPB) 50 ML IV ONE (07:15)
[2022-04-13] MEDS ORDERED: LACTATED RINGERS 1,000 ML IV PRN (07:15)
[2022-04-13] MEDS ORDERED: BUPIVACAINE 0.25% 30 ML (SENSORCAINE) VIAL ONE (07:30)
[2022-04-13] MEDS ORDERED: HYDROcodone/APAP 7.5 MG/325 MG (LORTAB, LORCET PLUS) TABLET PO PRN (07:30)
--- NOTE | 2022-04-13 07:36 | Progress Note-Pre Operative ---
Pre-Operative Progress Note Date of Available H&P: Mar 28, 2022 Date H&P Reviewed: Apr 13, 2022 Time H&P Reviewed: 07:36 Changes from last HP none Pre-Operative Diagnosis: right wrist dorsal ganglion cyst CARLOS HORTNO MD Apr 13, 2022 07:36
--- NOTE | 2022-04-13 07:37 | Progress Note-Post Operative ---
Post-Operative Progess Note Surgeon (s)/Road Conductor (s) Surgeon CARLOS HORTON MD Road Conductor: Gurdeep Mcgrath Pre-Operative Diagnosis right wrist dorsal ganglion cyst Post-Operative Diagnosis right wrist dorsal ganglion cyst Procedure & Operative Findings Date of Procedure 04/13/22 Procedure Performed/Findings right wrist dorsal ganglion cyst excision Anesthesia Type GETA Estimated Blood Loss Estimated blood loss (mL): minimal Specimens/Packing Specimens Removed cyst Packing: none CARLOS HORTON MD Apr 13, 2022 07:37
[2022-04-13] MEDS ORDERED: PROPOFOL INJECTION 0 ML IV ONE (07:55)
[2022-04-13] MEDS ORDERED: MIDAZOLAM 2 MG/2 ML (VERSED) VIAL ONE (07:56)
[2022-04-13] MEDS ORDERED: fentaNYL INJ 100 MCG/2 ML AMP ONE (08:29)
[2022-04-13] MEDS ORDERED: BUPIVACAINE 0.25% 30 ML (SENSORCAINE) VIAL INJ ONE ×2 (08:44→08:45)
[2022-04-13] MEDS ORDERED: PROPOFOL INJECTION 50 ML IV ONE (08:48)
[2022-04-13] MEDS ORDERED: ONDANSETRON 4 MG/2 ML (SDV) Z0FRAN ONE (08:48)
[2022-04-13] MEDS ORDERED: SEVOFLURANE (ULTANE) 15 ML INHAL SOLN ONE (08:53)
--- NOTE | 2022-04-13 09:07 | Anesthesia-General Post-Op ---
General Patient Condition Mental Status/LOC: Same as Preop Cardiovascular: Satisfactory Nausea/Vomiting: Absent Respiratory: Satisfactory Pain: Controlled Complications: Absent Post Op Complications Complications None Follow Up Care/Instructions Patient Instructions None needed. Anesthesia/Patient Condition Patient Condition Patient is doing well, no complaints, stable vital signs, no apparent adverse anesthesia problems. No complications reported per nursing. LIZZIE PORTER CRNA Apr 13, 2022 09:07
[2022-04-13] MEDS ORDERED: ONDANSETRON 4 MG/2 ML (SDV) Z0FRAN IVP PRN (09:15)
[2022-04-13] MEDS ORDERED: fentaNYL INJ 100 MCG/2 ML AMP IVP ONE (09:15)
--- NOTE | 2022-04-13 17:37 | OPERATIVE REPORT ---
DATE OF SERVICE: 04/13/2022 PREOPERATIVE DIAGNOSIS: Right wrist dorsal ganglion cyst. PREOPERATIVE DIAGNOSIS: Right wrist dorsal ganglion cyst. PROCEDURE: Right wrist dorsal ganglion cyst excision. SURGEON: Perez Horton MD ORCHARD PRUNER: Gurdeep Mcgrath, who assisted throughout the procedure and closed the incision. ANESTHESIA: General endotracheal by Sharon Blackburn CRNA. TOURNIQUET TIME: 9 minutes at 250 mmHg. ESTIMATED BLOOD LOSS: Minimal. DRAINS: None. COMPLICATIONS: None. POSTOPERATIVE PLAN: Splint wear for 2 weeks. The patient was transported to the recovery room awake and stable condition. STATEMENT OF MEDICAL NECESSITY: The patient is a 62-year-old right hand dominant female with complaints of mass, which was painful over the dorsal aspect of the wrist on the right. An MRI was obtained, which revealed questionable extensor carpi ulnaris tearing. She had tried activity modifications without relief. Due to functional impairment and failure to improve with conservative measures, the patient elected to proceed with surgical intervention. DESCRIPTION OF PROCEDURE: After risks and benefits of the procedure were discussed and questions were answered, informed consent was signed and placed on the chart. The operative site was confirmed in the preop holding area and initialed by surgeon. The patient was then transported to the operating room. After adequate level of general endotracheal anesthetic was obtained, timeout was called confirming the operative site. The right upper extremity was prepped and draped in the usual sterile fashion with the arm elevated, tourniquet was inflated to 250 mmHg. An incision was made over the mass. The underlying soft tissues were carefully dissected. This was cystic in nature and it was excised in total. This arose from the area of the extensor carpi ulnaris. The extensor carpi ulnaris was closely inspected with no gross abnormalities noted other than some fusiform swelling. No tearing was noted. The cyst was sent for pathologic examination and cultures were obtained. The tourniquet was deflated. Pressure was used for hemostasis as was cautery. The wound was copiously irrigated and closed with 4-0 nylon in a running alternating horizontal mattress fashion. A soft dressing and splint were applied and the patient was transported to the recovery room awake and in stable condition. Job ID: [id number] DocumentID: [id number] Dictated Date: 04/13/2022 08:51:18 Liquor Maker Date: 04/13/2022 17:34:00 Dictated By: PEREZ HORTON MD
== END 2022-04-13 11:00 | disposition home or self-care (01) ==
LOC: SDC 06:58
PROVIDERS: ATTEND Orthopaedic Surgery
DX: M67.431 Ganglion, right wrist (principal); M79.9 Soft tissue disorder, unspecified; E11.9 Type 2 diabetes mellitus without complications; Z79.84 Long term (current) use of oral hypoglycemic drugs; Z79.85 Long-term (current) use of injectable non-insulin antidiabetic drugs; F17.210 Nicotine dependence, cigarettes, uncomplicated; Z95.5 Presence of coronary angioplasty implant and graft
CPT/HCPCS: 82947; 87070; 87075; 87081; 87205

== ENCOUNTER 2022-04-20 05:40 | Outpatient (CLI) | payer MEDICAID ==
[~2022-04-20] VITALS: Ht 152.4 cm; Wt 77.5 kg
[2022-04-20] MEDS ORDERED: CARB-274 PO (14:43)
[2022-04-20] MEDS ORDERED: FERR325T24 PO (14:43)
== END 2022-04-20 14:50 | disposition home or self-care (01) ==
LOC: PREOP 05:40
PROVIDERS: ATTEND Surgery
DX: Z01.818 Encounter for other preprocedural examination (principal)

== ENCOUNTER → 2022-04-26 | Outpatient (CLI) | payer MEDICAID ==
[~2022-04-26] MED LIST changes: +CARB-274 PO; +FERR325T24 PO; +RT-ALBUTEROL SULF 2.5 MG/3 ML PRE-MIX VIAL INH ONE
== END ==
LOC: RT 10:45
PROVIDERS: ATTEND Nurse Practitioner Family
DX: J44.9 Chronic obstructive pulmonary disease, unspecified (principal)
CPT/HCPCS: 94060; 94726; 94729

== ENCOUNTER 2022-05-03 09:55 | Day surgery (SDC) | payer MEDICAID ==
[~2022-05-03] VITALS: Ht 152.4 cm; Wt 77.5 kg
[~2022-05-03 09:55] MED LIST changes: -CARB-274 PO; +CARB-299 PO; -RT-ALBUTEROL SULF 2.5 MG/3 ML PRE-MIX VIAL INH ONE
[2022-05-03] MEDS ORDERED: LACTATED RINGERS 1,000 ML IV ONE (10:01)
[2022-05-03] MEDS ORDERED: LACTATED RINGERS 1,000 ML IV STA (10:06)
[2022-05-03] MEDS ORDERED: HURRICAINE EXT TUBE (BENZOCAINE) XX PRN (10:15)
[2022-05-03 10:18] VITALS: BP 126/74
[2022-05-03] MEDS ORDERED: PROPOFOL INJECTION 50 ML IV ONE (10:41)
--- NOTE | 2022-05-03 10:41 | Progress Note-Pre Operative ---
Pre-Operative Progress Note Date of Available H&P: Apr 11, 2022 Date H&P Reviewed: May 03, 2022 Time H&P Reviewed: 10:40 History & Physical: H&P Reviewed, Patient Examed, No changes noted Pre-Operative Diagnosis: Painless Rectal Bleeding, Hx of Polyps; GERD JAN YANEZ DO May 03, 2022 10:41
--- NOTE | 2022-05-03 11:26 | Progress Note-Post Operative ---
Post-Operative Progess Note Surgeon (s)/Shipping Manager (s) Surgeon JAN YANEZ DO Shipping Manager: N/A Pre-Operative Diagnosis Painless Rectal Bleeding, Hx of Polyps; GERD Post-Operative Diagnosis Reactive Gastropathy Colon Polyps Procedure & Operative Findings Date of Procedure 05/03/22 Procedure Performed/Findings EGD w/ Bx; Colonoscopy w/ hot bx polypectomy x2 Anesthesia Type per COIN MACHINE SERVICE REPAIRER Estimated Blood Loss Estimated blood loss (mL): None Specimens/Packing Specimens Removed Antrum and GE Bx; Colon and Rectal Polyps JAN YANEZ DO May 03, 2022 11:26
--- NOTE | 2022-05-03 11:28 | Discharge Inst-Simple/Standard ---
Discharge Inst-Standard Patient Instructions/Follow Up Plan of Care/Instructions/FU: Andree 2 weeks Activity as Tolerated: Yes Discharge Diet: No Restrictions JAN YANEZ DO May 03, 2022 11:28
[2022-05-03 11:29] VITALS: BP 102/64
[2022-05-03 11:35] VITALS: BP 108/66
[2022-05-03 12:04] VITALS: BP 108/66
--- NOTE | 2022-05-03 14:31 | Anesthesia-General Post-Op ---
MAC Patient Condition Mental Status/LOC: Same as Preop Cardiovascular: Satisfactory Nausea/Vomiting: Absent Respiratory: Satisfactory Pain: Controlled Complications: Absent Post Op Complications Complications None Follow Up Care/Instructions Patient Instructions None needed. Anesthesiology Discharge Order Discharge Order Patient is doing well, no complaints, stable vital signs, no apparent adverse anesthesia problems. No complications reported per nursing. TAYLOR ARANA CRNA May 03, 2022 14:31
--- NOTE | 2022-05-03 16:42 | OPERATIVE REPORT ---
DATE OF SERVICE: 05/03/2022 PREOPERATIVE DIAGNOSES: History of polyps, rectal bleeding, and GERD symptoms. POSTOPERATIVE DIAGNOSES: Reactive gastropathy, colon polyps. PROCEDURES: EGD with biopsies, colonoscopy with hot biopsy polypectomy x2. SURGEON: Jan Candelario DO ANESTHESIA: Per METALLURGICAL ENGINEERING TECHNICIAN. ESTIMATED BLOOD LOSS: Minimal. COMPLICATIONS: None. INDICATIONS: The patient is a 62-year-old female with GERD symptoms, history of rectal bleeding and history of polyps. She understands risks and benefits of procedure and wishes to proceed. Consent was signed and on chart. DESCRIPTION OF PROCEDURE: The patient was taken to the endoscopy suite, placed in left lateral recumbent position. Timeout was performed. Scope was inserted in the mouth, down the esophagus, stomach and the duodenum without difficulty. There were no polyps, masses or ulcerations within the duodenum. Scope was retracted back into the stomach was further insufflated. No polyps, masses or ulcerations. Some changes of reactive gastropathy present. Scope was retroflexed noting no other pathology. Scope was returned to its normal position, slowly withdrawn until distal esophagus. Biopsy of GE junction was obtained. No polyps, masses or ulcerations. Scope was slowly retracted back until completely removed. The patient then had digital rectal exam performed. No palpable polyps, masses or ulcerations. Slight hemorrhoidal disease. Scope was inserted into the rectum and advanced all the way to the cecum with minimal difficulty. Prep was adequate with irrigation and suction. No polyps, masses or ulcerations in the cecum, ascending, transverse and descending colon. The sigmoid colon had a small polyp which hot polypectomy was performed. Scope was then continuously retracted back into the rectum. Scope was also retroflexed noting a rectal polyp, hot biopsy polypectomy was performed. Scope was returned to its normal position, slowly withdrawn until completely removed. The patient tolerated the procedure well without complications, taken to recovery in stable condition. RECOMMENDATIONS: The patient will follow up on pathology in 2 weeks. We will need repeat colonoscopy in 5 years. Any issues before that, be seen at that time, she will follow up in 2 weeks to go over pathology. Job ID: [id number] DocumentID: [id number] Dictated Date: 05/03/2022 11:34:15 Water Truck Driver Date: 05/03/2022 16:39:00 Dictated By: JAN CANDELARIO DO
== END 2022-05-03 12:06 | disposition home or self-care (01) ==
LOC: ENDO 09:55
PROVIDERS: ATTEND Surgery
DX: K63.5 Polyp of colon (principal); K62.1 Rectal polyp; K31.89 Other diseases of stomach and duodenum; K64.9 Unspecified hemorrhoids; K21.00 Gastro-esophageal reflux disease with esophagitis, without bleeding; E11.9 Type 2 diabetes mellitus without complications; F17.210 Nicotine dependence, cigarettes, uncomplicated; Z79.899 Other long term (current) drug therapy; Z79.84 Long term (current) use of oral hypoglycemic drugs; E66.9 Obesity, unspecified; Z68.33 Body mass index [BMI] 33.0-33.9, adult
CPT/HCPCS: 82947

== ENCOUNTER 2022-05-25 05:29 | Outpatient (CLI) | payer MEDICAID ==
[~2022-05-25] VITALS: Ht 152.4 cm; Wt 77.5 kg
[2022-05-25] MEDS ORDERED: ATOR40TA70 PO (14:15)
[2022-05-25] MEDS ORDERED: FERR325T24 PO (14:15)
[2022-05-25] MEDS ORDERED: ASPI-999 PO (14:15)
[2022-05-25] MEDS ORDERED: METO75TA PO (14:15)
[2022-05-25] MEDS ORDERED: CETI10TA17 PO (14:15)
[2022-05-25] MEDS ORDERED: LOSA25TA41 PO (14:15)
[2022-05-25] MEDS ORDERED: CANA1TAB4 PO (14:15)
[2022-05-25] MEDS ORDERED: CITA20TA9 PO (14:15)
[2022-05-25] MEDS ORDERED: FAMO20TA3 PO (14:15)
[2022-05-25] MEDS ORDERED: METH-732 PO (14:15)
[2022-05-25] MEDS ORDERED: CLOP75TA28 PO (14:15)
[2022-05-25] MEDS ORDERED: ISOS30TA82 PO (14:15)
[2022-05-25] MEDS ORDERED: BUDE10.26 IH (14:15)
[2022-05-25] MEDS ORDERED: PANT40TA52 PO (14:23)
[2022-05-25] MEDS ORDERED: CARB-299 PO (14:23)
[2022-05-25] MEDS ORDERED: RT-ALBUINH INH (14:23)
[2022-05-25] MEDS ORDERED: SUCR1TAB PO (14:23)
[2022-05-25] MEDS ORDERED: PARO30TA3 PO (14:23)
[2022-05-25] MEDS ORDERED: NITR0.4T42 SL (14:23)
[2022-05-25] MEDS ORDERED: TRZ50T PO (14:23)
[2022-05-25] MEDS ORDERED: FLUT1BLS3 IH (14:23)
== END 2022-05-25 13:56 | disposition home or self-care (01) ==
LOC: PREOP 05:29
PROVIDERS: ATTEND Orthopaedic Surgery
DX: Z01.818 Encounter for other preprocedural examination (principal)

== ENCOUNTER 2022-06-01 05:48 | Day surgery (SDC) | payer MEDICAID ==
--- NOTE | 2022-05-25 07:22 | HISTORY AND PHYSICAL ---
ADMISSION HISTORY AND PHYSICAL This will be for outpatient surgery on 06/01/2022, for right cubital tunnel release. HISTORY OF PRESENT ILLNESS: The patient is a 62-year-old female with complaints of right medial elbow pain with associated paresthesias in her ring and small fingers. She had a progressive loss of function and because of this, she has elected to proceed with surgical intervention. REVIEW OF SYSTEMS: No chest pain, no shortness of breath. No dysuria. PAST MEDICAL HISTORY: COPD, coronary artery disease, diabetes mellitus, hypertension, rheumatoid arthritis, migraines, fibromyalgia. PAST SURGICAL HISTORY: Cardiac catheterization, left cubital tunnel, knee arthroscopy, tonsillectomy, hysterectomy, cholecystectomy. FAMILY HISTORY: Asthma, hyperlipidemia, diabetes, ischemic heart disease, lung disease. PRIMARY CARE PROVIDER: [facility], 1928–1983. MEDICATIONS: Ventolin, Aleve, citalopram, albuterol, Symbicort, aspirin, metoprolol, Protonix, methotrexate, lisinopril, baclofen, Victoza, [ ] folic acid, Lyrica, hydroxychloroquine, ondansetron, sucralfate, meclizine, trazodone, hydroxyzine, atorvastatin. ALLERGIES: SULFA AND SINGULAIR. SOCIAL HISTORY: The patient smokes 3/4 pack a day. Denies alcohol use. PHYSICAL EXAMINATION: GENERAL: The patient is well-developed, well-nourished, in no acute distress. HEENT: Normocephalic, atraumatic. Pupils are equal, round and reactive to light. Oropharynx is clear. NECK: Supple. No lymphadenopathy. LUNGS: Clear to auscultation bilaterally. HEART: Regular rate and rhythm. ABDOMEN: Soft, nontender, nondistended. EXTREMITIES: The right elbow demonstrates a positive elbow flexion test. She has positive cubital tunnel. She has weakness with finger abduction, decreased sensation in ulnar distribution. IMPRESSION: Right cubital tunnel syndrome. PLAN: Right cubital tunnel release. The risks, benefits, options, ramifications and recovery were discussed at length with patient. She understands and wishes to proceed. Job ID: [id number] DocumentID: [id number] Dictated Date: 05/16/2022 11:21:34 Supervisor Matrix Date: 05/16/2022 12:03:00 Dictated By: CARLOS HORTON MD
[~2022-06-01] VITALS: Ht 152.4 cm; Wt 77.5 kg
[2022-06-01] VITALS (11 sets, daily range): BP systolic 121–153; BP diastolic 73–86
[~2022-06-01 05:48] MED LIST changes: +BUDE10.26 IH; +CANA1TAB4 PO; +LOSA25TA41 PO; +METO75TA PO; +NITR0.4T42 SL; +RT-ALBUINH INH
[2022-06-01] MEDS ORDERED: ceFAZolin INJECTION 2,000 MG in NS (IVPB) 50 ML IV ONE (06:30)
[2022-06-01] MEDS ORDERED: LACTATED RINGERS 1,000 ML IV PRN (06:45)
[2022-06-01] MEDS ORDERED: LIDOCAINE PF 2% 5 ML (XYLOCAINE) VIAL ONE (07:12)
[2022-06-01] MEDS ORDERED: proPOfol 200 MG/20 ML (DIPRIVAN) VIAL IV ONE (07:12)
[2022-06-01] MEDS ORDERED: ONDANSETRON 4 MG/2 ML (SDV) Z0FRAN ONE (07:12)
[2022-06-01] MEDS ORDERED: SEVOFLURANE (ULTANE) 15 ML INHAL SOLN ONE ×2 (07:12→07:43)
[2022-06-01] MEDS ORDERED: MIDAZOLAM 2 MG/2 ML (VERSED) VIAL ONE (07:12)
[2022-06-01] MEDS ORDERED: fentaNYL INJ 100 MCG/2 ML AMP ONE (07:12)
--- NOTE | 2022-06-01 07:17 | Progress Note-Pre Operative ---
Pre-Operative Progress Note Date of Available H&P: May 16, 2022 Date H&P Reviewed: Jun 01, 2022 Time H&P Reviewed: 07:11 Changes from last HP none Pre-Operative Diagnosis: left cubital tunnel syndrome CARLOS HORTON MD Jun 01, 2022 07:17
[2022-06-01] MEDS ORDERED: SUCCINYLCHOLINE INJ 20 MG/1 ML 10 ML VIAL ONE (07:18)
--- NOTE | 2022-06-01 07:18 | Progress Note-Post Operative ---
Post-Operative Progess Note Surgeon (s)/Research Recruiter (s) Surgeon CARLOS HORTON MD Research Recruiter: Gurdeep Mcgrath Pre-Operative Diagnosis left cubital tunnel syndrome Post-Operative Diagnosis left cubital tunnel syndrome Procedure & Operative Findings Date of Procedure 06/01/22 Procedure Performed/Findings left cubital tunnel release Anesthesia Type GETA Estimated Blood Loss Estimated blood loss (mL): minimal Specimens/Packing Specimens Removed none Packing: none CARLOS HORTON MD Jun 01, 2022 07:18
--- NOTE | 2022-06-01 07:22 | Anesthesia-General Post-Op ---
General Patient Condition Mental Status/LOC: Same as Preop Cardiovascular: Satisfactory Nausea/Vomiting: Absent Respiratory: Satisfactory Pain: Controlled Complications: Absent Post Op Complications Complications None Follow Up Care/Instructions Patient Instructions None needed. Anesthesia/Patient Condition Patient Condition Patient is doing well, no complaints, stable vital signs, no apparent adverse anesthesia problems. No complications reported per nursing. SHERITA CHAND CRNA Jun 01, 2022 07:22
[2022-06-01] MEDS ORDERED: BUPIVACAINE 0.5% 30 ML (SENSORCAINE) VIAL ONE (07:24)
[2022-06-01] MEDS ORDERED: MEPERIDINE (DEMEROL) INJ 50 MG/ML IVP ONE (07:30)
[2022-06-01] MEDS ORDERED: morphine INJ 10 MG/ML 1ML (SYR OR VIAL) IVP ONE (07:30)
[2022-06-01] MEDS ORDERED: HYDROcodone/APAP 7.5 MG/325 MG (LORTAB, LORCET PLUS) TABLET PO PRN (07:30)
[2022-06-01] MEDS ORDERED: fentaNYL INJ 100 MCG/2 ML AMP IVP ONE (07:30)
[2022-06-01] MEDS ORDERED: PHENYLEPHRINE 100 MCG/ML 10 ML (ANESTHESIA) SYR ONE (07:48)
[2022-06-01] MEDS: ONDANSETRON 4 MG/2 ML (SDV) Z0FRAN IVP PRN ×2 (09:49→10:06)
--- NOTE | 2022-06-01 13:05 | OPERATIVE REPORT ---
DATE OF SERVICE: 06/01/2022 PREOPERATIVE DIAGNOSIS: Right cubital tunnel syndrome. POSTOPERATIVE DIAGNOSIS: Right cubital tunnel syndrome. PROCEDURE: Right cubital tunnel release. SURGEON: Perez Horton MD MEDIA JOB TITLES: Gurdeep Mcgrath, who assisted throughout the procedure and closed the incision. ANESTHESIA: General endotracheal by Gurdeep La CRNA. TOURNIQUET TIME: 6 minutes at 250 mmHg. ESTIMATED BLOOD LOSS: Minimal. DRAINS: None. COMPLICATIONS: None. POSTOPERATIVE PLAN: Routine protocol. The patient was transferred to recovery room awake and stable condition. STATEMENT OF MEDICAL NECESSITY: The patient is a 62-year-old right hand dominant female with complaints of right hand pain and paresthesias. She had a positive elbow flexion test, positive Tinel's at the cubital tunnel. Due to functional impairment and failure to improve with conservative measures, the patient elected to proceed with surgical intervention. PROCEDURE: After risks and benefits of the procedure were discussed and questions were answered and informed consent was signed and placed on chart, the operative site was confirmed in the preoperative holding area, initialed by surgeon. The patient was then transported to the operating room and after adequate levels of general endotracheal anesthetic were obtained, a timeout was called, confirming the operative site. Right upper extremity was prepped and draped in the usual sterile fashion. A gently curved incision was made posterior to the medial epicondyle. The underlying soft tissues were carefully dissected. The ulnar nerve was identified proximal to the medial epicondyle and dissected 2.9 cm proximally. This was then dissected through the cubital tunnel while carefully protecting the ulnar nerve. This was then dissected into the flexor/pronator mass. After fully decompressed, the elbow was taken through range of motion. No subluxation of the nerve was noted; therefore, transposition was not performed and the tourniquet was deflated. Pressure was used for hemostasis. The wound was copiously irrigated. 2-0 Vicryl was used to reapproximate the subcutaneous tissue. Skin was closed with 4-0 nylon running alternating horizontal mattress fashion. The incision was infiltrated with plain Marcaine. A soft dressing was applied. The patient was transferred to the recovery room awake and stable condition. Job ID: [id number] DocumentID: [id number] Dictated Date: 06/01/2022 08:14:50 Mixing House Operator Date: 06/01/2022 13:04:00 Dictated By: PEREZ HORTON MD
== END 2022-06-01 10:25 | disposition home or self-care (01) ==
LOC: SDC 05:48
PROVIDERS: ATTEND Orthopaedic Surgery
DX: G56.21 Lesion of ulnar nerve, right upper limb (principal); E11.9 Type 2 diabetes mellitus without complications; F17.210 Nicotine dependence, cigarettes, uncomplicated; Z79.85 Long-term (current) use of injectable non-insulin antidiabetic drugs; Z79.84 Long term (current) use of oral hypoglycemic drugs; Z95.5 Presence of coronary angioplasty implant and graft
CPT/HCPCS: 82947; 87081

== ENCOUNTER 2022-06-30 05:35 | Outpatient (CLI) | payer MEDICAID ==
[~2022-06-30] VITALS: Ht 165.1 cm; Wt 77.5 kg
== END 2022-06-30 16:02 | disposition home or self-care (01) ==
LOC: PREOP 05:35
PROVIDERS: ATTEND Surgery
DX: Z01.818 Encounter for other preprocedural examination (principal)

== ENCOUNTER 2022-07-07 07:42 | Day surgery (SDC) | payer MEDICAID ==
[~2022-07-07] VITALS: Ht 165.1 cm; Wt 77.5 kg
[2022-07-07] VITALS (7 sets, daily range): BP systolic 99–126; BP diastolic 52–78
[2022-07-07] MEDS ORDERED: LACTATED RINGERS 1,000 ML IV PRN (08:00)
[2022-07-07] MEDS ORDERED: ceFAZolin INJECTION 2,000 MG in NS (IVPB) 50 ML IV ONE (08:00)
--- NOTE | 2022-07-07 08:03 | Progress Note-Pre Operative ---
Pre-Operative Progress Note Date H&P Reviewed: Jul 07, 2022 Time H&P Reviewed: 08:03 History & Physical: H&P Reviewed, Patient Examed, No changes noted Pre-Operative Diagnosis: back skin lesion JAN YANEZ DO Jul 07, 2022 08:03
[2022-07-07] MEDS ORDERED: CATHETER FLUSH 10 ML SYR IVP PRN (08:15)
[2022-07-07] MEDS ORDERED: MIDAZOLAM 2 MG/2 ML (VERSED) VIAL ONE (08:15)
[2022-07-07] MEDS ORDERED: PROPOFOL INJECTION 50 ML IV ONE (08:15)
[2022-07-07] MEDS ORDERED: fentaNYL INJ 100 MCG/2 ML AMP ONE (08:15)
[2022-07-07] MEDS ORDERED: BUP/EPI 0.5% 1:200,000 (SENSORCAINE) 30 ML VIAL ONE (08:20)
--- NOTE | 2022-07-07 09:20 | Discharge Inst-Simple/Standard ---
Discharge Inst-Standard Patient Instructions/Follow Up Plan of Care/Instructions/FU: 2 weeks Andree for suture removal. Activity as Tolerated: Yes (No strenuous activity.) Discharge Diet: Regular Diet Other Inst to Patient Follow up Appt: Make appointment for 2 week. Instructions: No strenuous activity. May shower in 24 hours, no tub bath or soaking. Use incentive spirometer at home as directed. No Smoking Skin/Wound Care: Change dressing daily and as needed. After 24 hours can leave open to air. Keep clean and dry. Symptoms to Report: Appetite Changes, Extremity Discoloration, Numbness/Tingling, Swelling Increased, Bleeding Excessive, Eyesight Changes, Pain Increased, Urine Color Change, Constipation(Persistent), Fever over 101 degree F, Pain/Pressure in chest, Urinating Difficulty, Cough Up/Vomit Blood, Heart Beat Irreg/Pounding, Pain/Pressure in jaw, Vaginal Bleeding Increase, Cramps in feet or legs, Lightheadedness, Pain/Pressure in shoulder, Diarrhea(Persistent), Memory Changes Suddenly, Questions/Concerns, Weight gain consecutive days, Dizziness/Fainting, Nausea/Vomiting, Shortness of Breath, Weight gain over 2 pounds If questions or concerns contact your physician Or seek help at emergency department. JAN YANEZ DO Jul 07, 2022 09:20
--- NOTE | 2022-07-07 09:21 | Anesthesia-General Post-Op ---
MAC Patient Condition Mental Status/LOC: Same as Preop Cardiovascular: Satisfactory Nausea/Vomiting: Absent Respiratory: Satisfactory Pain: Controlled Complications: Absent Post Op Complications Complications None Follow Up Care/Instructions Patient Instructions None needed. Anesthesiology Discharge Order Discharge Order Patient is doing well, no complaints, stable vital signs, no apparent adverse anesthesia problems. No complications reported per nursing. MAURISIO SPANN CRNA Jul 07, 2022 09:21
[2022-07-07] MEDS ORDERED: morphine INJ 10 MG/ML 1ML (SYR OR VIAL) IVP ONE (09:30)
[2022-07-07] MEDS ORDERED: MEPERIDINE (DEMEROL) INJ 50 MG/ML IVP ONE (09:30)
[2022-07-07] MEDS ORDERED: ONDANSETRON 4 MG/2 ML (SDV) Z0FRAN IVP PRN (09:30)
--- NOTE | 2022-07-07 15:20 | OPERATIVE REPORT ---
DATE OF SERVICE: 07/07/2022 PREOPERATIVE DIAGNOSIS: Skin lesion. POSTOPERATIVE DIAGNOSIS: Skin lesion. PROCEDURE: Excision of skin lesion of the back 3 x 6.5 cm. SURGEON: Jan Candelario DO. ANESTHESIA: It was general LMA. ESTIMATED BLOOD LOSS: Minimal. COMPLICATIONS: None. INDICATIONS: The patient is a 62-year-old female with a lesion on her back. She is needing that excised. She understands risks and benefits of procedure and wishes to proceed. Consent was signed in chart. DESCRIPTION OF PROCEDURE: The patient was taken to the operating suite. She was placed in right lateral recumbent position. Timeout was performed. She was prepped and draped in sterile fashion. A timeout was performed. Local anesthetic was infiltrated around the lesion. An elliptical incision measuring 3 x 6.5 cm was made. Cautery was used to remove the skin and subcutaneous tissues. Hemostasis was achieved. The skin was then closed using 3-0 Prolene in a running fashion. The specimen was tagged with long suture medial short suture superior. The area was washed and dried and sterile bandage was applied. The patient tolerated the procedure well without complications, taken to recovery room in stable condition. Job ID: [id number] DocumentID: [id number] Dictated Date: 07/07/2022 09:28:36 Clinic Charge Nurse Date: 07/07/2022 15:18:00 Dictated By: JAN CANDELARIO DO
== END 2022-07-07 10:32 | disposition home or self-care (01) ==
LOC: SDC 07:42
PROVIDERS: ATTEND Surgery
DX: C44.519 Basal cell carcinoma of skin of other part of trunk (principal); E66.9 Obesity, unspecified; J44.9 Chronic obstructive pulmonary disease, unspecified; F17.210 Nicotine dependence, cigarettes, uncomplicated; Z99.81 Dependence on supplemental oxygen; Z68.28 Body mass index [BMI] 28.0-28.9, adult
CPT/HCPCS: 82947; 87081

== ENCOUNTER 2022-07-13 06:32 | Outpatient (CLI) | payer MEDICAID ==
[~2022-07-13] VITALS: Ht 165.1 cm; Wt 75.5 kg
[2022-07-13] MEDS ORDERED: LISI20TA26 PO (14:19)
[2022-07-13] MEDS ORDERED: FLUT9.9S NS (14:19)
[2022-07-13] MEDS ORDERED: FISH1CAP15 PO (14:19)
[2022-07-13] MEDS ORDERED: METH2.5T PO (14:19)
[2022-07-13] MEDS ORDERED: SEMA0.258 SQ (14:19)
[2022-07-13] MEDS ORDERED: HYDR-700 PO (14:19)
== END 2022-07-13 14:44 | disposition home or self-care (01) ==
LOC: PREOP 06:32
PROVIDERS: ATTEND Orthopaedic Surgery
DX: Z01.818 Encounter for other preprocedural examination (principal)

== ENCOUNTER → 2022-07-20 | Day surgery (SDC) | payer MEDICAID ==
--- NOTE | 2022-07-12 21:24 | HISTORY AND PHYSICAL ---
DATE OF SERVICE: 07/20/2022 ADMISSION HISTORY AND PHYSICAL This will be for outpatient surgery on 07/20/2022 for left knee arthroscopy. HISTORY: The patient is a 62-year-old female with left knee pain. She reports anterior knee pain with catching, locking and swelling. She reports pain with squatting. She reports pain with stairs. She reports it catches at times. Radiographs revealed mild medial and patellofemoral joint space narrowing due to functional impairment and failure to improve with conservative measures. The patient elected to proceed with surgical intervention. REVIEW OF SYSTEMS: No chest pain, no shortness of breath. No dysuria. PAST MEDICAL HISTORY: COPD, coronary artery disease, diabetes mellitus, hypertension, rheumatoid arthritis, fibromyalgia and migraines. PAST SURGICAL HISTORY: Cardiac catheterization, cholecystectomy, hysterectomy, tonsillectomy, knee arthroscopy, [ ]. Tooth extraction, right cubital tunnel release. FAMILY HISTORY: Asthma, hyperlipidemia, diabetes, ischemic heart disease, lung disease. PRIMARY CARE PROVIDER: [facility]. MEDICATIONS: Ventolin, cetirizine, Aleve, citalopram, fish oil, albuterol, Symbicort, aspirin, metoprolol, Protonix, methotrexate, lisinopril, metformin, Victoza, folic acid, Lyrica, [ ], ondansetron, sucralfate, meclizine, trazodone, hydroxyzine, atorvastatin. ALLERGIES: SULFA AND SINGULAIR. SOCIAL HISTORY: The patient smokes 3/4 packs a day. Denied of tobacco. Denies alcohol use. PHYSICAL EXAMINATION: GENERAL: The patient is well-developed, well-nourished, in no acute distress. HEENT: Normocephalic, atraumatic. Pupils equal, round and reactive to light. Oropharynx is clear. NECK: Supple, with no lymphadenopathy. LUNGS: Clear to auscultation bilaterally. HEART: Regular rate and rhythm. ABDOMEN: Soft, nontender, nondistended. EXTREMITIES: Left knee demonstrates patellofemoral crepitus, pain with patellar loading. She demonstrates a catch at approximately 20 degrees of flexion when moving to extension. There is no varus or valgus laxity. Negative anterior and posterior drawer. She is tender along medial joint line. Slight effusions noted. She has pain medially with Mckenna's. Range of motion 0/0/135. IMPRESSION: Left knee chondromalacia of the patella and likely medial meniscus tear. PLAN: Left knee arthroscopy with chondroplasty, partial meniscectomy. The risks, benefits, options, ramifications and recovery were discussed at length with the patient. She understands and wishes to proceed. Job ID: [id number] DocumentID: [id number] Dictated Date: 07/12/2022 16:03:53 Brazer Resistance Date: 07/12/2022 21:22:00 Dictated By: CARLOS HORTON MD
[~2022-07-20] VITALS: Ht 165 cm; Wt 75.5 kg
[~2022-07-20] MED LIST changes: +BUPIVACAINE 0.25% 30 ML (SENSORCAINE) VIAL ONE; +HYDR-700 PO; +HYDROcodone/APAP 7.5 MG/325 MG (LORTAB, LORCET PLUS) TABLET PO PRN; +LACTATED RINGERS 1,000 ML IV PRN; +LIDOCAINE PF 2% 5 ML (XYLOCAINE) VIAL ONE; +METH2.5T PO; +MIDAZOLAM 2 MG/2 ML (VERSED) VIAL ONE; +NS (IVPB) 50 ML ONE; +ONDANSETRON 4 MG/2 ML (SDV) Z0FRAN ONE; +SEMA0.258 SQ; +SEVOFLURANE (ULTANE) 15 ML INHAL SOLN ONE; +ceFAZolin INJECTION 1,000 MG ONE; +fentaNYL INJ 100 MCG/2 ML AMP ONE; +morphine PF (DURAMORPH) 10 MG/10 ML AMP ONE; +proPOfol 200 MG/20 ML (DIPRIVAN) VIAL IV ONE
[2022-07-20 09:12] VITALS: BP 114/70
[2022-07-20 09:20] VITALS: BP 120/71
[2022-07-20 09:30] VITALS: BP 122/74
[2022-07-20 09:40] VITALS: BP 129/91
[2022-07-20 09:50] VITALS: BP 117/74
[2022-07-20 10:00] VITALS: BP 115/81
--- NOTE | 2022-07-20 11:39 | Anesthesia-General Post-Op ---
General Patient Condition Mental Status/LOC: Same as Preop Cardiovascular: Satisfactory Nausea/Vomiting: Absent Respiratory: Satisfactory Pain: Controlled Complications: Absent Post Op Complications Complications None Follow Up Care/Instructions Patient Instructions None needed. Anesthesia/Patient Condition Patient Condition Patient is doing well, no complaints, stable vital signs, no apparent adverse anesthesia problems. No complications reported per nursing. TAYLOR ARANA CRNA July 20, 2022 11:39
--- NOTE | 2022-07-20 17:06 | OPERATIVE REPORT ---
DATE OF SERVICE: 07/20/2022 PREOPERATIVE DIAGNOSES: 1. Left knee medial meniscus tear. 2. 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 3. Left knee chondromalacia of the patella. POSTOPERATIVE DIAGNOSES: 1. Left knee lateral meniscus tear. 2. 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 3. Left knee chondromalacia of lateral tibial plateau. 4. Left knee chondromalacia of the patella. PROCEDURE: 1. Left knee arthroscopic partial lateral meniscectomy. 2. Left knee arthroscopic chondroplasty of medial femoral condyle. 3. Left knee arthroscopic chondroplasty of lateral tibial plateau. 4. Left knee arthroscopic chondroplasty of the patella. SURGEON: Perez Horton MD SYSTEMS DESIGN ENGINEER: Gurdeep Mcgrath, who assisted throughout the procedure and closed the incisions. ANESTHESIA: General endotracheal by Brisa Pepe CRNA. TOURNIQUET TIME: Not applicable. ESTIMATED BLOOD LOSS: Minimal. DRAINS: None. COMPLICATIONS: None. POSTOPERATIVE PLAN: Routine arthroscopy protocol. The patient was transferred to the recovery room awake and in stable condition. STATEMENT OF MEDICAL NECESSITY: The patient is a 62-year-old female with complaints of left knee pain, catching, locking and swelling. She is tender along her medial joint line. She had pain with patellar loading. She tried rest, activity modifications, anti-inflammatories without relief. Due to functional impairment and failure to improve with conservative measures, the patient elected to proceed with surgical intervention. Examination under anesthesia revealed range of motion of 0/0/145 with negative Katy, negative anterior and posterior drawer. No varus or valgus laxity, and negative pivot shift. ARTHROSCOPIC FINDINGS: The patella demonstrated grade 2 chondral flap centrally in a 10 x 10 area. The trochlea demonstrated no gross chondral abnormalities. Medial and lateral gutters were clear. The ACL and PCL were intact. Medial compartment demonstrated a grade 2 chondral flap centrally in a 10 x 10 area. No meniscal pathology was noted. The lateral compartment demonstrated a tear of the body lateral meniscus involving approximately 20% of the body. The lateral tibial plateau demonstrated grade 2 chondral flap centrally in an 8 x 8 area. DESCRIPTION OF PROCEDURE: After risks and benefits of the procedure were discussed and questions were answered and informed consent was signed and placed on chart, the operative site was confirmed in the preoperative holding area initialed by surgeon. The patient was then transported to the operating room and after adequate levels of general endotracheal anesthetic were obtained, timeout was called, confirming the operative site. Examination under anesthesia was performed with the above findings noted. Left lower extremity was prepped and draped in the usual sterile fashion. The knee joint was injected with 60 mL of fluid and standard inferolateral portal was placed for the arthroscope and direct visualization inferior medial portal was created. The menisci cruciates carefully probed with above findings noted. The unstable chondral flaps on the patella were debrided back to a stable edge. Scope was redirected into the medial compartment and unstable chondral flaps on the medial femoral condyle were debrided with a shaver back to a stable edge. Scope was redirected into the lateral compartment where the unstable chondral flaps of the lateral tibial plateau were debrided with a shaver back to a stable edge and lateral meniscus tear was debrided with a shaver back to a stable edge. This was carefully probed with no further tearing or instability noted. The knee was copiously irrigated. The portal sites were closed with 4-0 nylon in simple interrupted fashion. Knee was injected with Duramorph. The port sites were infiltrated with plain Marcaine. A soft dressing was applied and the patient was transferred to recovery room awake and in stable condition. Job ID: [id number] DocumentID: [id number] Dictated Date: 07/20/2022 09:17:48 Fireworks Inspector Date: 07/20/2022 17:04:00 Dictated By: PEREZ HORTON MD
== END ==
LOC: SDC 06:47
PROVIDERS: ATTEND Orthopaedic Surgery
DX: S83.242A Other tear of medial meniscus, current injury, left knee, initial encounter (principal); M94.262 Chondromalacia, left knee; K21.9 Gastro-esophageal reflux disease without esophagitis; J44.9 Chronic obstructive pulmonary disease, unspecified; F17.210 Nicotine dependence, cigarettes, uncomplicated; Z99.81 Dependence on supplemental oxygen
CPT/HCPCS: 82947; 87081

== ENCOUNTER 2022-08-07 18:17 | Emergency (ER) | payer MEDICAID ==
[~2022-08-07] VITALS: Ht 165 cm; Wt 73.0 kg
[~2022-08-07 18:17] MED LIST changes: -BUPIVACAINE 0.25% 30 ML (SENSORCAINE) VIAL ONE; -HYDROcodone/APAP 7.5 MG/325 MG (LORTAB, LORCET PLUS) TABLET PO PRN; -LACTATED RINGERS 1,000 ML IV PRN; -LIDOCAINE PF 2% 5 ML (XYLOCAINE) VIAL ONE; -MIDAZOLAM 2 MG/2 ML (VERSED) VIAL ONE; -NS (IVPB) 50 ML ONE; -ONDANSETRON 4 MG/2 ML (SDV) Z0FRAN ONE; -SEVOFLURANE (ULTANE) 15 ML INHAL SOLN ONE; -ceFAZolin INJECTION 1,000 MG ONE; -fentaNYL INJ 100 MCG/2 ML AMP ONE; -morphine PF (DURAMORPH) 10 MG/10 ML AMP ONE; -proPOfol 200 MG/20 ML (DIPRIVAN) VIAL IV ONE
[2022-08-07 18:24] VITALS: BP 122/77
--- NOTE | 2022-08-07 18:39 | ED Integumentary General ---
General Chief Complaint: Post OP Complications/Pain Stated Complaint: PTOP THORACIC CONCERNS DOS 07/20/22 Nursing Triage Note: PT STATES BACK SURGERY 07/20/22, SUTURES TAKEN OUT ABOUT 10 DAYS AGO, PT WAS HAVING IT PACKED, STARTING ON 07/27, BUT RAN OUT OF PACKING. PACKING WAS TO BE DONE UNTIL PT WENT BACK TO SEE ON 08/10, PT NOT FEELING GOOD FOR THE PAST 2 DAYS. HAS NOT ATE ANYTHING TODAY Source: patient Exam Limitations: no limitations (SAKSHI FONTENOT APRN) History of Present Illness Date Seen by Provider: August 07, 2022 Time Seen by Provider: 18:30 Initial Comments 62-year-old female presents the ER for wound check. She had cancer removed from her back on 07/20. When the sutures were removed, the incision dehisced. Her daughter has been performing wound care, but ran out of the iodoform which she was packing it with. Daughter reports that she felt the wound did not look right since she ran out of packing. She said the wound bed was very red, and it no longer had the white tissue which he had before. Patient reports she has not been feeling well over the last 2 days. She ran out of her pain medication yesterday. Denies fevers, but states she feels like she is sweating. Patient appears to be in a lot of pain right now. (SAKSHI FONTENOT APRN) Allergies and Home Medications Allergies Coded Allergies: Sulfa (Sulfonamide Antibiotics) (Verified Allergy, Mild, RASH, 07/13/22) adhesive tape (Verified Allergy, Mild, HIVES, 07/13/22) montelukast (Verified Allergy, Mild, DIZZY AND DROWSY, CONFUSION, 07/13/22) Patient Home Medication List Home Medication List Reviewed: Yes (SAKSHI FONTENOT APRN) Albuterol Sulfate (Ventolin Hfa) 1 Puff Puff, 2 PUFF INH Q4H, (Reported) Entered as Reported by: CHRISTIANO PEREZ on 05/25/22 1423 Aspirin (Aspirin) 81 Mg Tab.chew, 81 MG PO DAILY, (Reported) Entered as Reported by: CHRISTIANO PEREZ on 05/25/22 1415 Atorvastatin Calcium (Atorvastatin Calcium) 40 Mg Tablet, 40 MG PO HS, (Reported) Entered as Reported by: CHRISTIANO PEREZ on 05/25/221414 Canagliflozin/Metformin HCl (Invokamet 150-1,000 mg Tablet) 150 Mg-1,000 Mg Tablet, 1 EACH PO DAILY, (Reported) Entered as Reported by: CHRISTIANO PEREZ on 05/25/221414 Carbidopa/Levodopa (Sinemet 10-100 mg Tablet) Unknown Strength Tablet, Unknown Dose PO, (Reported) Entered as Reported by: CHRISTIANO PEREZ on 05/25/221422 Cetirizine HCl (Cetirizine HCl) 10 Mg Tablet, 10 MG PO DAILY PRN, (Reported) Entered as Reported by: CHRISTIANO PEREZ on 05/25/221414 Clopidogrel Bisulfate (Clopidogrel) 75 Mg Tablet, 75 MG PO DAILY, (Reported) Entered as Reported by: CHRISTIANO PEREZ on 05/25/221414 Famotidine (Acid Business Continuity Director (FAMOTIDINE)) 20 Mg Tablet, 20 MG PO BID, (Reported) Entered as Reported by: CHRISTIANO PEREZ on 05/25/221414 Ferrous Sulfate (Ferosul) 325 Mg (65 Mg Iron) Tablet, 325 MG PO DAILY, (Reported) Entered as Reported by: CHRISTIANO PEREZ on 05/25/221414 Fish Oil/Dha/Epa (Fish Oil 1,200 mg Fish Oil) 1,200 Mg-144 Mg-216 Mg Capsule, 1 EACH PO DAILY PRN, (Reported) Entered as Reported by: Antoinette Sharma on 07/13/22 141 Fluticasone Propionate (Flonase Allergy Relief) 50 Mcg/Actuation Irmo.susp, 2 SPRAY NS DAILY, (Reported) Entered as Reported by: Antoinette Sharma on 07/13/22 141 Fluticasone/Umeclidin/Vilanter (Trelegy Ellipta 100-62.5-25) 100-62.5 Blst.w.dev, 1 EACH IH UD, (Reported) Entered as Reported by: CHRISTIANO PEREZ on 05/25/221422 Hydrocodone/Acetaminophen (Hydrocodone-Acetamin 5-325 mg) 5 Mg-325 Mg Tablet, 1 TAB PO Q6H PRN for PAIN-MODERATE (5-7) Prescribed by: Sakshi Fontenot on 08/07/22 184 Hydroxyzine HCl (Hydroxyzine HCl) 25 Mg Tablet, 25 MG PO DAILY, (Reported) Entered as Reported by: Antoinette Sharma on 07/13/221418 Isosorbide Mononitrate (Isosorbide Mononitrate ER) 30 Mg Tab.er.24h, 30 MG PO DAILY, (Reported) Entered as Reported by: CHRISTIANO PEREZ on 05/25/221414 Lisinopril (Lisinopril) 20 Mg Tablet, 20 MG PO DAILY, (Reported) Entered as Reported by: Antoinette Sharma on 07/13/221418 Losartan Potassium (Losartan Potassium) 25 Mg Tablet, 25 MG PO DAILY, (Reported) Entered as Reported by: CHRISTIANO PEREZ on 05/25/221414 Methocarbamol (Methocarbamol) 750 Mg Tablet, 750 MG PO TID, (Reported) Entered as Reported by: CHRISTIANO PEREZ on 05/25/221414 Methotrexate Sodium (Methotrexate) 2.5 Mg Tablet, 8 TAB PO WEEK, (Reported) Entered as Reported by: Antoinette Sharma on 07/13/221418 Metoprolol Tartrate (Metoprolol Tartrate) 75 Mg Tablet, 75 MG PO DAILY, (R eported) Entered as Reported by: CHRISTIANO PEREZ on 05/25/221414 Nitroglycerin (Nitroglycerin) 0.4 Mg Tab.subl, 0.4 MG SL UD, (Reported) Entered as Reported by: CHRISTIANO PEREZ on 05/25/221422 Pantoprazole Sodium (Pantoprazole Sodium) 40 Mg Tablet.dr, 40 MG PO DAILY, (Reported) Entered as Reported by: CHRISTIANO PEREZ on 05/25/221422 Paroxetine HCl (Paroxetine HCl) 30 Mg Tablet, 30 MG PO DAILY, (Reported) Entered as Reported by: CHRISTIANO PEREZ on 05/25/221422 Semaglutide (Ozempic) 0.25 Mg/0.4 Ml Pen.injctr, 0.5 MG SQ WEEK, (Reported) Entered as Reported by: Antoinette Sharma on 07/13/221418 Sucralfate (Sucralfate) 1 Gram Tablet, 1 GM PO TID, (Reported) Entered as Reported by: CHRISTIANO PEREZ on 05/25/221422 Trazodone HCl (Trazodone HCl) 50 Mg Tablet, 50 MG PO HS, (Reported) Entered as Reported by: CHRISTIANO Jeff CHRIS on 05/25/22 1423 Review of Systems Review of Systems Constitutional: see HPI Skin: other (Surgical wound) (SAKSHI FONTENOT APRN) Past Onpknva-Yekfqh-Bilqql Hx Patient Social History Tobacco Use?: Yes Smoking Status: Current Everyday Smoker Substance use?: No Alcohol Use?: No (SAKSHI FONTENOT APRN) Immunizations Up To Date Tetanus Booster (TDap): Unknown PED Vaccines UTD: No First/Initial COVID19 Vaccinat: 07/13/20 Second COVID19 Vaccination Jamie: 08/12/20 Third COVID19 Vaccination Date: 01/2022 (SAKSHI FONTENOT APRN) Seasonal Allergies Seasonal Allergies: Yes (SAKSHI FONTENOT APRN) Past Medical History Surgery/Hospitalization HX: BACK SURGERY, DIABETIC TYPE II, COPD, CAD WITH 2 STENTS Surgeries: Yes (INGUINAL HERNIA, LEFT WRIST, L KNEE SCOPE, 2 STENTS, COLON/EGD, R ELBOW NER) Adenoidectomy, Cardiac, Coronary Stent, Eye Surgery, Gallbladder, Hysterectomy, Tonsillectomy Respiratory: Yes (O2 4L NC AT NIGHT AND DAYTIME 2L PRN) Asthma, COPD Currently Using CPAP: No Currently Using BIPAP: No Cardiac: Yes (STENT x1 2010 AND 08/2021- DR CASTELLANOS) Coronary Artery Disease, Heart Attack, High Cholesterol, Hypertension Neurological: Yes (STROKE AT 29YRS OLD-NO RESIDUAL EFFECTS) Parkinson's Disease, Stroke Reproductive Disorders: No 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 Sexually Transmitted Disease: No HIV/AIDS: No Genitourinary: Yes (YEAST INFECTIONS) UTI-Chronic Gastrointestinal: Yes Gastroesophageal Reflux, Polyps, Ulcer Musculoskeletal: Yes (TENDON TEAR AND CYST RT WRIST, LEFT KNEE SX) Arthritis, Rheumatoid Arthritis, Chronic Back Pain Endocrine: Yes Diabetes, Non-Insulin dep HEENT: Yes (GLASSES) Cataract Loss of Vision: Bilateral Hearing Impairment: Denies Cancer: No Psychosocial: Yes Sleep Difficulties, Anxiety, Depression Integumentary: No Blood Disorders: No Adverse Reaction/Blood Tranf: No (N/A) (SAKSHI FONTENOT APRN) Family Medical History Cardiovascular disease 19 FATHER, Onset:Unknown Diabetes mellitus 19 FATHER, Onset:Unknown FH: CABG (coronary artery bypass surgery) 19 FATHER, Onset:Unknown FH: lung cancer 19 MOTHER, Onset:Unknown Myocardial infarction 19 FATHER, Onset:Unknown No Pertinent Family Hx (SAKSHI FONTENOT APRN) Physical Exam Vital Signs Vital Signs - First Documented 08/07/22 18:24 Temp 36.8 Pulse 78 Resp 20 B/P (MAP) 122/77 (92) Pulse Ox 95 O2 Delivery Room Air (MISTI,NAKIA K DO) Vital Signs Capillary Refill : Less Than 3 Seconds (SAKSHI FONTENOT APRN) General Appearance: WD/WN, mild distress Neck: supple, normal inspection Cardiovascular: regular rate, rhythm Respiratory: lungs clear, normal breath sounds, no respiratory distress, no accessory muscle use Extremities: normal range of motion, normal inspection Neurologic/Psychiatric: alert, normal mood/affect Skin: normal color, warm/dry Skin Problem Location: torso (Upper back) Skin Problem Character: other (Surgical incision, healthy appearing red granulated tissue noted to wound bed, no purulent drainage, no surrounding erythema or edema) (SAKSHI FONTENOT APRN) Progress/Results/Core Measures Results/Orders Medications Given in ED Current Medications Medications Dose Ordered Sig/Hector Route Start Time Stop Time Status Last Admin Dose Admin Acetaminophen/ Hydrocodone Bitart 1 ea Q6H PRN PO 08/07/22 18:45 08/07/22 18:52 DC 08/07/22 18:46 1 EA (MISTI,NAKIA K DO) Vital Signs/I&O 08/07/22 18:24 Temp 36.8 Pulse 78 Resp 20 B/P (MAP) 122/77 (92) Pulse Ox 95 O2 Delivery Room Air (MISTI,NAKIA K DO) Blood Pressure Mean: 92 Progress Progress Note : Progress Note Patient seen and evaluated, sitting on side of bed, mild distress due to pain. Wound appears to be healing well, healthy granulated red tissue to wound bed, no purulent drainage, no surrounding erythema or edema. Will provide take-home pack of Barton, and short prescription for Barton. Wound repacked with iodoform. Leftover iodoform given to patient for her daughter to perform wound care until she can be seen on Monday by Dr. Candelario. Patient instructed to go to follow- up appointment on Monday as scheduled and to continue wound care as directed by Dr. Candelario. Discharge instructions and return precautions provided. (SAKSHI FONTENOT APRN) Departure Impression Primary Impression: Visit for wound check Disposition: HOME, SELF-CARE Condition: Stable Departure-Patient Inst. Decision time for Depature: 18:42 (SAKSHI FONTENOT APRN) Referrals: [facility] [place] ([place]/Family) Primary Care Physician Patient Instructions: Wound Care Add. Discharge Instructions: Continue wound care as directed by Dr. Candelario. Follow-up with Dr. Candelario Monday as scheduled. Take pain medication as needed. Return for severe pain, fever, odorous drainage, redness around the wound, swelling around the wound, or any other new, concerning, or worsening symptoms. Scripts Hydrocodone/Acetaminophen (Hydrocodone-Acetamin 5-325 mg) 5 Mg-325 Mg Tablet 1 TAB PO Q6H PRN for PAIN-MODERATE (5-7), #6 TAB 0 Refills Prov: SAKSHI FONTENOT APRN 08/07/22 ATTENDING PHYSICIAN NOTE: I WAS PHYSICALLY PRESENT ER PHYSICIAN, BUT I WAS NOT INVOLVED IN ANY DECISION MAKING OR ANY CARE OF THIS PATIENT, AND I AM NOT COLLABORATING PHYSICIAN. (NAKIA CHAPPELL DO) SAKSHI FONTENOT APRN August 07, 2022 18:39 NAKIA CHAPPELL DO August 07, 2022 20:43
[2022-08-07] MEDS ORDERED: ACHD5005 PO (18:43)
== END 2022-08-07 18:52 | disposition home or self-care (01) ==
LOC: EDUNIT# 18:17 → ER 18:20
DX: Z48.01 Encounter for change or removal of surgical wound dressing (principal); J44.9 Chronic obstructive pulmonary disease, unspecified; F17.200 Nicotine dependence, unspecified, uncomplicated; Z99.81 Dependence on supplemental oxygen
CPT/HCPCS: 99283

== ENCOUNTER → 2022-08-24 | Outpatient (CLI) | payer MEDICAID ==
[~2022-08-24] MED LIST changes: +REGADENOSON 0.4 MG/5 ML SYR (LEXISCAN) IV ONE
[2022-08-24 10:47] LABS: ALBUMIN 3.7 GM/DL (3.2-4.5); POTASSIUM 3.6 MMOL/L (3.6-5.0)
[2022-08-24 10:48] LABS: CALCIUM 9.2 MG/DL (8.5-10.1)
[2022-08-24 10:52] LABS: BILIRUBIN,TOTAL 0.5 MG/DL (0.1-1.0)
[2022-08-24 10:53] LABS: CREATININE SERUM 0.7 MG/DL (0.60-1.30)
[2022-08-24] MEDS: CATHETER FLUSH 10 ML SYR IVP PRN ×2 (10:53→12:46)
[2022-08-24 12:36] VITALS: BP 112/56
--- NOTE | 2022-08-24 15:48 | Cardiology Stress Test Report ---
Stress Test Report Date of Procedure/Referring: Date of Procedure: Aug 24, 2022 [facility] Admitting Physician Admitting Physician: Attending Physician: Arvind Best MD Indications: HTN Baseline Heart Rate: 60 Baseline Blood Pressure: Blood Pressure Systolic: 112 Blood Pressure Diastolic: 56 Baseline Vitals Vital Signs Date Time Temp Pulse Resp B/P (MAP) Pulse Ox O2 Delivery O2 Flow Rate FiO2 08/24/22 12:36 67 14 112/56 (74) 96 Room Air Baseline EKG: Baseline EKG: NSR Summary After explaining the procedure to the patient, she signed a consent and then brought to the stress nuclear laboratory. Patient received 0.4 mg Lexiscan for stress test, ECG, heart rate and blood pressure were monitored continuously. Resting and stress dose of radio tracer were injected, imaging was acquired and reviewed in short axis, horizontal long axis and vertical long axis views. TID: 1.18 SSS: 0 SDS: 0 EF: 71 Patient tolerated Lexiscan well Nondiagnostic EKG changes with Lexiscan injection No ischemia or infarction noted on SPECT images Normal left ventricular size, ejection fraction 71% Copy Copies To 1: [facility] [place] ARVIND BEST MD Aug 24, 2022 15:48
== END ==
LOC: CARD 10:24
PROVIDERS: ATTEND Internal Medicine Cardiovascular Disease
DX: I65.29 Occlusion and stenosis of unspecified carotid artery (principal); I25.10 Atherosclerotic heart disease of native coronary artery without angina pectoris; I10 Essential (primary) hypertension; E78.2 Mixed hyperlipidemia; Z82.49 Family history of ischemic heart disease and other diseases of the circulatory system
CPT/HCPCS: 78452; 80053; 80061; 93017; A9502; 36415

== ENCOUNTER 2022-09-08 05:26 | Outpatient (CLI) | payer MEDICAID ==
[~2022-09-08] VITALS: Ht 165.1 cm; Wt 73.2 kg
[~2022-09-08 05:26] MED LIST changes: -REGADENOSON 0.4 MG/5 ML SYR (LEXISCAN) IV ONE
[2022-09-08] MEDS ORDERED: IBUP-1780 PO (12:50)
== END 2022-09-08 12:53 | disposition home or self-care (01) ==
LOC: PREOP 05:26
PROVIDERS: ATTEND Orthopaedic Surgery
DX: Z01.818 Encounter for other preprocedural examination (principal)

== ENCOUNTER 2022-09-14 09:17 | Day surgery (SDC) | payer MEDICAID ==
--- NOTE | 2022-09-08 11:05 | HISTORY AND PHYSICAL ---
DATE OF SERVICE: 09/14/2022 This will be for outpatient surgery on 09/14/2022 for right wrist cyst excision. HISTORY: The patient is a 62-year-old right hand dominant female who previously underwent cyst excision from her left wrist. She has had continued drainage. Cultures at that time were negative; however, she reports continued pain. There has been no erythema or warmth. Due to persistent drainage, she has elected to proceed with surgical intervention. She understands that this may be a continuous problem despite surgical intervention. REVIEW OF SYSTEMS: No chest pain, no shortness of breath. No dysuria. PAST MEDICAL HISTORY: COPD, coronary artery disease, diabetes mellitus, hypertension, rheumatoid arthritis, fibromyalgia and migraines. PAST SURGICAL HISTORY: Cardiac catheterization, cholecystectomy, hysterectomy, tonsillectomy, knee arthroscopy, tooth extraction, right cubital tunnel release, left cubital tunnel release. FAMILY HISTORY: Asthma, hyperlipidemia, diabetes, ischemic heart disease, lung disease. PRIMARY CARE PROVIDER: [facility]. MEDICATIONS: Ventolin, cetirizine, Aleve, citalopram, fish oil, albuterol, Symbicort, aspirin, metoprolol, Protonix, methotrexate, lisinopril, metformin, Victoza, folic acid, Lyrica, Ondansetron, sucralfate, meclizine, trazodone, hydroxyzine, atorvastatin. ALLERGIES: TO SULFA AND SINGULAIR. SOCIAL HISTORY: The patient smokes 3/4 pack a day. Denies alcohol use. PHYSICAL EXAMINATION: GENERAL: The patient is well-developed, well-nourished, in no acute distress. HEENT: Normocephalic, atraumatic. Pupils equal, round, reactive to light. Oropharynx is clear. NECK: Supple. No lymphadenopathy. LUNGS: Clear to auscultation bilaterally. HEART: Regular rate and rhythm. ABDOMEN: Soft, nontender, nondistended. EXTREMITIES: Exam of the right wrist demonstrates no erythema or warmth; however, at her previous incision site, there can be clear fluid expressed with deep needing of the area. IMPRESSION: Persistent cyst with drainage, right wrist. PLAN: Right wrist cyst excision. The risks, benefits, options, ramifications and recovery have been discussed at length with the patient. She understands and wishes to proceed. Job ID: [id number] DocumentID: [id number] Dictated Date: 09/08/2022 08:28:29 Iron Launder Operator Date: 09/08/2022 11:04:00 Dictated By: CARLOS HORTON MD
[2022-09-14] VITALS (8 sets, daily range): BP systolic 136–187; BP diastolic 62–99
[~2022-09-14] VITALS: Ht 165.1 cm; Wt 73.2 kg
[2022-09-14] MEDS ORDERED: ceFAZolin INJECTION 1,000 MG in NS (IVPB) 50 ML IV ONE (09:45)
[2022-09-14] MEDS ORDERED: LACTATED RINGERS 1,000 ML IV PRN (09:45)
--- NOTE | 2022-09-14 10:53 | Progress Note-Pre Operative ---
Pre-Operative Progress Note Date of Available H&P: Sep 12, 2022 Date H&P Reviewed: Sep 14, 2022 Time H&P Reviewed: 10:53 Changes from last HP none Pre-Operative Diagnosis: left wrist cyst CARLOS HORTON MD Sep 14, 2022 10:53
--- NOTE | 2022-09-14 10:54 | Progress Note-Post Operative ---
Post-Operative Progess Note Surgeon (s)/Industrial Controls Technician (s) Surgeon CARLOS HORTON MD Industrial Controls Technician: Gurdeep Mcgrath Pre-Operative Diagnosis right wrist cyst Post-Operative Diagnosis right ECU tendon tear Procedure & Operative Findings Date of Procedure 09/14/22 Procedure Performed/Findings right ECU tendon repair Anesthesia Type GETA Estimated Blood Loss Estimated blood loss (mL): minimal Specimens/Packing Specimens Removed none Packing: none CARLOS HORTON MD Sep 14, 2022 10:54
[2022-09-14] MEDS ORDERED: HYDROcodone/APAP 7.5 MG/325 MG (LORTAB, LORCET PLUS) TABLET PO PRN (11:00)
[2022-09-14] MEDS ORDERED: BUPIVACAINE 0.5% 30 ML (SENSORCAINE) VIAL ONE (12:24)
[2022-09-14] MEDS ORDERED: fentaNYL INJ 100 MCG/2 ML AMP ONE (12:38)
[2022-09-14] MEDS ORDERED: PROPOFOL INJECTION 50 ML IV ONE (12:38)
[2022-09-14] MEDS ORDERED: MIDAZOLAM 2 MG/2 ML (VERSED) VIAL ONE (12:39)
[2022-09-14] MEDS ORDERED: MEPERIDINE (DEMEROL) INJ 50 MG/ML IVP ONE (14:00)
[2022-09-14] MEDS ORDERED: morphine INJ 10 MG/ML 1ML (SYR OR VIAL) IVP ONE (14:00)
[2022-09-14] MEDS ORDERED: ONDANSETRON 4 MG/2 ML (SDV) Z0FRAN IVP PRN (14:00)
--- NOTE | 2022-09-14 20:51 | OPERATIVE REPORT ---
DATE OF SERVICE: 09/14/2022 PREOPERATIVE DIAGNOSES: Right wrist cyst. POSTOPERATIVE DIAGNOSIS: Right wrist extensor carpi ulnaris tendon tear. PROCEDURE: Right wrist extensor carpi ulnaris tendon repair. SURGEON: Perez Horton MD CLINICAL SCIENCE LIAISON: Gurdeep Mcgrath, who assisted throughout the procedure and closed the incision. ANESTHESIA: Monitored anesthesia care plus local by Donald Whitten CRNA. TOURNIQUET TIME: 10 minutes at 250 mmHg. ESTIMATED BLOOD LOSS: Minimal. DRAINS: None. COMPLICATIONS: None. POSTOPERATIVE PLAN: Splint wear for 6 weeks. The patient was transferred to recovery room awake and in stable condition. STATEMENT OF MEDICAL NECESSITY: The patient is a 62-year-old right hand dominant female who previously underwent cyst excision from her right wrist, but had persistent drainage and pain that failed to respond to conservative measures. Due to functional impairment and failure to improve with conservative measures, the patient elected to proceed with surgical intervention. DESCRIPTION OF PROCEDURE: After risks and benefits of the procedure were discussed and questions were answered, informed consent signed and placed on chart. The operative site was confirmed in the preoperative holding initialed by surgeon. The patient was then transferred to the operating room and after adequate levels of monitored anesthesia care obtained, right upper extremity was prepped and draped in the usual sterile fashion. The incision site was infiltrated with a combination of plain lidocaine and plain Marcaine. The previous incision was utilized. Underlying soft tissues were carefully dissected. There was found to be a split in the extensor carpi ulnaris, which was repaired in a running fashion with 4-0 Vicryl. In addition, the drainage site appeared to emanate from the distal radial ulnar joint. This was oversewn with a 4-0 Vicryl. The wound was copiously irrigated. Tourniquet was deflated. Pressure was used for hemostasis. The 4-0 Vicryl was used to reapproximate the subcutaneous tissue and the skin was closed with 4-0 nylon vertical mattress interrupted fashion. A soft dressing and brace were placed and the patient was transferred to recovery room awake and stable condition. Job ID: [id number] DocumentID: [id number] Dictated Date: 09/14/2022 13:44:27 Director Loss Prevention Date: 09/14/2022 20:49:00 Dictated By: PEREZ HORTON MD
== END 2022-09-14 14:55 ==
LOC: SDC 09:17
PROVIDERS: ATTEND Orthopaedic Surgery
DX: M96.89 Other intraoperative and postprocedural complications and disorders of the musculoskeletal system (principal); S66.911A Strain of unspecified muscle, fascia and tendon at wrist and hand level, right hand, initial encounter; K21.9 Gastro-esophageal reflux disease without esophagitis; J44.9 Chronic obstructive pulmonary disease, unspecified; F17.210 Nicotine dependence, cigarettes, uncomplicated; Z99.81 Dependence on supplemental oxygen
CPT/HCPCS: 82947; 87081

== ENCOUNTER → 2023-01-20 | Outpatient (CLI) | payer MEDICAID ==
[~2023-01-20] MED LIST changes: +FAMO-356 PO; -FAMO20TA3 PO
== END ==
LOC: CARD 13:37
PROVIDERS: ATTEND Internal Medicine Cardiovascular Disease
DX: I11.9 Hypertensive heart disease without heart failure (principal)
CPT/HCPCS: 93306